=== PATIENT | female | born 1960 | race Caucasian/White ===

== ENCOUNTER 2023-10-30 09:39 | Emergency (ER) | payer MEDICARE, MEDICAID, SELFPAY ==
[2023-10-30] VITALS (7 sets, daily range): BP systolic 91–108; BP diastolic 59–70; PULSE 88–114; RESP 18–28; TEMP 36.6; O2SAT 92–96; BMI 27.4
--- NOTE | 2023-10-30 09:56 | XR_ITS ---
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 Chest radiograph 07/09/2020 CLINICAL INDICATION: 63 years Female cough FINDINGS: The cardiomediastinal silhouette and pulmonary vasculature are within normal limits. There is slight coarse increased interstitial markings of the infrahilar regions likely representing atelectasis. A small amount of developing interstitial inflammatory infiltrate is not excluded. The lungs are otherwise clear. There is no evidence of pleural effusion or pneumothorax. XR/XR chest 1V IMPRESSION: Today's exam shows findings most consistent with some infrahilar atelectasis. Less likely, this could represent a small amount of interstitial inflammatory infiltrate. Correlation with the patient's clinical history may be helpful. One could consider a follow-up PA and lateral view of the chest in 7-10 days to see if these basilar changes resolved. Electronically authenticated by: DENNY ROWLEY Date: 10/30/2023 10:39
--- NOTE | 2023-10-30 09:56 | ECG_ITS ---
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
--- NOTE | 2023-10-30 09:56 | ED_ITS ---
HPI - General Adult General Chief complaint: Shortness of Breath/Dyspnea Stated complaint: SHORTNESS OF BREATH/ COUGH Time Seen by Provider: 10/30/23 09:43 Source: patient Mode of arrival: walk-in History of Present Illness HPI narrative: 63-year-old female presents for cough and shortness of breath and pain from the coughing. Four days ago she had two cardiac stents placed. Three days ago her symptoms began. Her cough is mostly nonproductive and she hasn't had a fever or hemoptysis. She hasn't been around anybody who has been ill that she is aware of. Related Data Previous Rx's Medication Instructions Recorded azithromycin 250 mg tablet 250 mg PO DAILY 4 days #4 tabs 10/30/23 (Zithromax) benzonatate 100 mg capsule 100 mg PO TID PRN cough #20 caps 10/30/23 Allergies Allergy/AdvReac Type Severity Reaction Status Date / Time buspirone [From BuSpar] Allergy Severe Migraine Verified 10/30/23 09:49 ketorolac [From Toradol] Allergy Severe Verified 10/30/23 09:49 pregabalin [From Lyrica] Allergy Severe Verified 10/30/23 09:49 bacitracin AdvReac Severe Verified 10/30/23 09:49 Review of Systems ROS Narrative A ten point review of systems is negative except as noted above. Exam Narrative Exam Narrative: Nurses note and vital signs reviewed and patient is not hypoxic. General: The patient appears in no apparent distress. Patient is resting comfortably on cart and coughs occasionally. Skin: Warm, dry, no pallor noted. There is no rash noted. Head: Normocephalic, atraumatic Eye: Normal conjunctiva, no drainage Ears, Nose, Mouth, and Throat: oral mucosa is moist. Nares patent. Cardiovascular: Regular Rate and Rhythm Respiratory: Patient is in no distress, no accessory muscle use, lungs are clear to auscultation, no wheezing, rales or rhonchi Back: non-tender GI: soft and nontender Musculoskeletal: The patient has no evidence of calf tenderness, no pitting edema, symmetrical pulses noted bilaterally Neurological: A&O, normal speech Psychiatric: Cooperative Constitutional Vital Signs, click to edit/add: Last Vital Signs Temp 98 F 10/30/23 09:46 Pulse 103 H 12/17/23 10:40 Resp 26 H 10/30/23 10:40 BP 108/70 10/30/23 10:30 Pulse Ox 94 L 10/30/23 10:40 Course Vital Signs Vital signs: Vital Signs Temperature 98 F 10/30/23 09:46 Pulse Rate 88 10/30/23 09:46 Respiratory Rate 20 10/30/23 09:46 Blood Pressure 91/59 10/30/23 09:46 Pulse Oximetry 96 10/30/23 09:46 Temperature 98 F 10/30/23 09:46 Pulse Rate 103 H 10/30/23 10:40 Respiratory Rate 26 H 10/30/23 10:40 Blood Pressure 108/70 10/30/23 10:30 Pulse Oximetry 94 L 10/30/23 10:40 Medical Decision Making MDM Narrative Medical decision making narrative: patient workup here is essentially negative. No evidence of pneumonia, Covid, or influenza. She is discharged home on Zithromax and was started on that medication here. Treatment diagnosis and follow-up were discussed with the patient. Differential Diagnosis Differential Diagnosis: pneumonia, Covid, influenza, heart failure Lab Data Lab results reviewed: Yes I reviewed the patient's lab results Labs: Lab Results 10/30/23 Range/Units 10:06 WBC 4.8 (4.0-11.0) 10^3/uL RBC 4.21 (4.20-5.40) 10^6/uL Hgb 13.5 (12.0-16.0) g/dL Hct 39.5 (36.0-48.0) % MCV 93.8 (81.0-99.0) fL MCH 32.1 (26.7-34.0) pg MCHC 34.2 (29.9-35.2) g/dL RDW 13.1 (11.0-15.0) % Plt Count 258 (150-450) 10^3/uL MPV 9.5 (9.5-13.5) fL Neut % (Auto) 74.2 (43.0-75.0) % Lymph % (Auto) 16.3 L (20.5-60.0) % [place] % (Auto) 8.5 (1.7-12.0) % Eos % (Auto) 0.0 L (0.9-7.0) % Baso % (Auto) 0.6 (0.2-2.0) % Neut # (Auto) 3.6 (1.4-6.5) 10^3/uL Lymph # (Auto) 0.8 L (1.2-3.8) 10^3/uL [place] # (Auto) 0.4 (0.3-0.8) 10^3/uL Eos # (Auto) 0.0 (0.0-0.7) 10^3/uL Baso # (Auto) 0.0 (0.0-0.1) 10^3/uL Abs Immat Gran (auto) 0.02 (0.00-0.03) 10^3/uL Imm/Tot Granulo (auto) 0.4 (0.0-0.5) % Sodium 130 L (136-145) mmol/L Potassium 3.0 L (3.5-5.1) mmol/L Chloride 95 L (98-107) mmol/L Carbon Dioxide 22.9 (21.0-32.0) mmol/L Anion Gap 15.1 BUN 14.0 (7.0-18.0) mg/dL Creatinine 0.85 (0.55-1.02) mg/dL Est GFR ( Amer) >60 (>=60) Est GFR (Non-Af Amer) >60 (>=60) BUN/Creatinine Ratio 16.5 Glucose 114 H (74-106) mg/dL Calcium 8.6 (8.5-10.1) mg/dL SARS-CoV-2 (PCR) Negative (NEGATIVE) Influenza Type A Ag Negative Influenza Type B Ag Negative Imaging Data Chest x-ray: Radiologist's impression: Procedure: XR chest 1V PROCEDURE: XR chest 1V DATE: 10/30/2023 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 Chest radiograph 07/09/2020 CLINICAL INDICATION: 63 years Female cough FINDINGS: The cardiomediastinal silhouette and pulmonary vasculature are within normal limits. There is slight coarse increased interstitial markings of the infrahilar regions likely representing atelectasis. A small amount of developing interstitial inflammatory infiltrate is not excluded. The lungs are otherwise clear. There is no evidence of pleural effusion or pneumothorax. IMPRESSION: Today's exam shows findings most consistent with some infrahilar atelectasis. Less likely, this could represent a small amount of interstitial inflammatory infiltrate. Correlation with the patient's clinical history may be helpful. One could consider a follow-up PA and lateral view of the chest in 7-10 days to see if these basilar changes resolved. Electronically authenticated by: DENNY ROWLEY Date: 10/30/2023 10:39 Discharge Plan Discharge Chief Complaint: Shortness of Breath/Dyspnea Clinical Impression: Upper respiratory infection Patient Disposition: Home, Self-Care Time of Disposition Decision: 11:00 Condition: Good Prescriptions / Home Meds: New azithromycin [Zithromax] 250 mg tablet 250 mg PO DAILY 4 Days Qty: 4 0RF Rx Instructions: start on day 2 of therapy benzonatate 100 mg capsule 100 mg PO TID PRN (Reason: cough) Qty: 20 0RF Instructions: Upper Respiratory Infection (ED) Stand Alone Forms: Portal Instructions Referrals: DORIE LUIS [Primary Care Provider] - 1 week
[2023-10-30 10:24] LABS: Basophils Percent Auto 0.6 % (0.2-2.0); Hematocrit 39.5 % (36.0-48.0); Hemoglobin 13.5 g/dL (12.0-16.0); Immature Granulocytes Abs Auto 0.02 10^3/uL (0.00-0.03); Immature Granulocytes Pct Auto 0.4 % (0.0-0.5); Lymphocytes Absolute Auto 0.8 10^3/uL (1.2-3.8); Lymphocytes Percent Auto 16.3 % (20.5-60.0); Mean Corpuscular HGB Conc 34.2 g/dL (29.9-35.2); Mean Corpuscular Hemoglobin 32.1 pg (26.7-34.0); Mean Corpuscular Volume 93.8 fL (81.0-99.0); Mean Platelet Volume 9.5 fL (9.5-13.5); Monocytes Absolute Auto 0.4 10^3/uL (0.3-0.8); Monocytes Percent Auto 8.5 % (1.7-12.0); Neutrophils Absolute Auto 3.6 10^3/uL (1.4-6.5); Neutrophils Percent Auto 74.2 % (43.0-75.0); Platelet Count 258 10^3/uL (150-450); Red Blood Count 4.21 10^6/uL (4.20-5.40); Red Cell Distribution Width 13.1 % (11.0-15.0); White Blood Count 4.8 10^3/uL (4.0-11.0)
[2023-10-30 10:31] LABS: Anion Gap 15.1; BUN Creatinine Ratio 16.5; Calcium 8.6 mg/dL (8.5-10.1); Carbon Dioxide 22.9 mmol/L (21.0-32.0); Chloride 95 mmol/L (98-107); Estimated GFR (African America >60 (>=60); Estimated GFR (Non-African Ame >60 (>=60); Glucose 114 mg/dL (74-106); Sodium 130 mmol/L (136-145)
[2023-10-30 10:33] LABS: SARS-CoV-2 Ag NEGATIVE (NEGATIVE)
[2023-10-30 10:34] LABS: Influenza Virus A Antigen Negative; Influenza Virus B Antigen Negative; Internal Control Within Normal Limits
[2023-10-30] MEDS: AZITHROMYCIN 250 MG TABLET 500 MG PO (11:12)
[2023-10-30] MEDS: BENZONATATE 100 MG CAPSULE PO (11:12)
[2023-10-30 15:59] LABS: SARS-CoV-2 NAA NOT DETECTED (NOT DETECTE)
== END 2023-10-30 11:19 | disposition home or self-care (01) ==
PROVIDERS: Emergency Provider Emergency Medicine; PCP Family Medicine
DX: J06.9 Acute upper respiratory infection, unspecified (principal); Z20.822 Contact with and (suspected) exposure to COVID-19; Z95.5 Presence of coronary angioplasty implant and graft
CPT/HCPCS: 36415; 71045; 80048; 85025; 87635; 87804; 87811; 93005; 99285

== ENCOUNTER 2023-12-30 14:04 | Outpatient (OUT) | payer MEDICARE, MEDICAID, SELFPAY ==
--- NOTE | 2023-12-30 14:15 | CT_ITS ---
The [address] [address] Patient Name: ELLA JACOBO MRN: [id number] date: 1960 Sex: F Assigned Patient Location: CT Current Patient Location: Accession/Order Number: [id number] Exam Date: 12/30/2023 14:20 Report Date: 12/31/2023 06:34 At the request of: THERESA FUENTES Procedure: CT lung screening low-dose EXAM: CT lung screening low-dose HISTORY: Cigarette Dependence F17.219 ; technologist notes state current smoker. COMPARISON: A low-dose CT lung screen dated 12/07/[address] abdomen/pelvis dated 03/23/2022. TECHNIQUE: Routine low-dose CT lung screen without intravenous contrast. FINDINGS: Cardiovascular: Fat extending into the interatrial septum. Severe multivessel coronary calcifications with history of coronary artery stenting moderately severe atheromatous calcification thoracic and abdominal aorta, great vessels off the aortic arch, subclavian artery and bilateral main renal arteries. Lungs: Mild peribronchial thickening consistent with acute and/or chronic bronchitis. Mild to moderate atelectatic densities bilateral upper and lower lobes and right middle lobe. Nodules: Stable 0.4 cm noncalcified right upper lobe nodule (series 3 image 47). Adenopathy: There are no pathologically enlarged axillary, mediastinal or hilar lymph nodes. Other: The trachea, esophagus and thyroid gland are unremarkable. Upper abdomen: Atherosclerotic disease as described. Osseous: Slight scoliosis and kyphosis. Discogenic degenerative changes at numerous levels along the spine. Stable compression fracture L1 vertebral body with less than 15% loss of height. CT/CT lung screening low-dose IMPRESSION: Mild peribronchial thickening consistent with acute and/or chronic bronchitis. Stable 0.4 cm noncalcified right upper lobe nodule (series 3 image 47). There are no pathologically enlarged lymph nodes. Atherosclerotic disease as described. Stable compression fracture L1 vertebral body with less than 15% loss of height. Additional findings as described in the body the report. Lung rads score 2. A low-dose CT lung screen examination in 12 months is recommended. Electronically authenticated by: BRICE GARCIA Date: 12/31/2023 06:34
== END 2023-12-30 14:05 | disposition home or self-care (01) ==
LOC: CT 14:05
PROVIDERS: PCP Family Medicine; Visit Provider Internal Medicine
DX: F17.219 Nicotine dependence, cigarettes, with unspecified nicotine-induced disorders (principal); Z12.2 Encounter for screening for malignant neoplasm of respiratory organs
CPT/HCPCS: 71271

== ENCOUNTER 2024-03-26 12:30 | Emergency (ER) | payer MEDICARE, MEDICAID, SELFPAY ==
[2024-03-26] VITALS (10 sets, daily range): BP systolic 151–159; BP diastolic 89–94; PULSE 87–101; TEMP 36.4; O2SAT 91–97; BMI 27.1
--- NOTE | 2024-03-26 12:48 | ECG_ITS ---
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
--- NOTE | 2024-03-26 12:48 | XR_ITS ---
The [address] [address] Patient Name: ELLA JACOBO MRN: [id number] date: 1960 Sex: F Assigned Patient Location: ER Current Patient Location: ED.MAIN Accession/Order Number: [id number] Exam Date: 03/26/2024 12:55 Report Date: 03/26/2024 13:33 At the request of: TORRIE POND Procedure: XR chest 2V EXAM: CHEST 1 VIEW HISTORY: Cough, SOB TECHNIQUE: Chest, one view. COMPARISON: Chest CT 12/07/2022. FINDINGS: Lungs mildly hyperinflated. There are patchy discoid opacities in the left perihilar region, lingula, and both lower lobes, similar to previous chest CT. No lobar consolidation, pleural effusion, or pneumothorax. Pulmonary vasculature is within normal limits. There is aortic atherosclerosis. Heart size within normal limits. XR/XR chest 2V IMPRESSION: 1. Mild patchy discoid opacities in the left perihilar region, lingula, and both lower lobes, favoring atelectasis or scarring as similar findings by chest CT 12/07/2022. No lobar consolidation or effusion. Electronically authenticated by: ANGELA LACKEY Date: 03/26/2024 13:33
--- NOTE | 2024-03-26 12:54 | ED_ITS ---
HPI HPI - General Adult General Chief complaint: Chest Pain Stated complaint: SOB, SOAR THROAT Time Seen by Provider: 03/26/24 12:49 History of Present Illness HPI narrative: Patient is a 63-year-old female who is presenting to the ER today with chief complaint cough, congestion, sinus congestion for 1.5 weeks. Patient has not taken anything to help with her symptoms [id number]-sciictt. Patient does have a history of COPD. Patient does use albuterol inhalers, also other steroid inhalers as well. Patient has not done any type of sinus congestion, Flonase, or any other type of cough medication. Patient was having dry cough, now she is having a productive greenish cough. Patient does have upper chest wall pain, worse after coughing. No rash. Patient does had pain with a deep inspiration, twisting and turning and reproducible tenderness to upper chest wall pain. Patient does have a history of 3 cardiac stents. Patient has no recent traveling. No abdominal pain, nausea, vomiting, or any other acute complaints. Patient looks well. Patient is coming today because symptoms or not improving. All systems are negative except as noted/marked. All systems reviewed and otherwise negative. Nurses note and vital signs reviewed and patient is not hypoxic. General: The patient appears well and in no apparent distress. Patient is resting comfortably on cart. Patient is not toxic, lethargic, or listless Skin: Warm, dry, no pallor noted. There is no rash noted. No petechiae, purpura. Head: Normocephalic, atraumatic Eye: Normal conjunctiva, no drainage, EOMI. PERRL Ears, Nose, Mouth, and Throat: oral mucosa is moist. Bilateral TM shows no erythema, perforation or bulging. Nares patent. Mouth without vesicles. Cardiovascular: Regular Rate and Rhythm, no murmur, gallop, rub; patient has reproducible tenderness palpation to bilateral upper, lateral, posterior chest wall. No rash. Respiratory: Patient is in no distress, no accessory muscle use, lungs are clear to auscultation, no wheezing, rales or rhonchi. Equal breath sounds bilateral. Back: non-tender, no CVA tenderness bilaterally to percussion. No CT LS midline pain. GI: no tenderness to palpation, no masses appreciated. No rebound, guarding, or rigidity noted. No distention Musculoskeletal: Patient has full range of motion of all of the extremities, no motor, sensory, or focal neurological deficits Neurological: A&O x4, normal speech Psychiatric: Cooperative Related Data Home Medications ?Medication ?Instructions ?Recorded ?Confirmed albuterol sulfate 90 mcg/actuation 2 puff inhalation Q4H PRN 03/26/24 03/26/24 aerosol inhaler shortness of breath or wheezing alprazolam 1 mg tablet 1 mg PO QID 03/26/24 03/26/24 atorvastatin 80 mg tablet 80 mg PO DAILY 03/26/24 03/26/24 budesonide 160 mcg-glycopyr 9 2 inh inhalation BID 03/26/24 03/26/24 mcg-formot 4.8 mcg/actuation HFA inhaler (Breztri Aerosphere) carvedilol 3.125 mg tablet 3.125 mg PO BID 03/26/24 03/26/24 isosorbide mononitrate 30 mg 30 mg PO DAILY 03/26/24 03/26/24 tablet,extended release 24 hr lamotrigine 25 mg tablet 75 mg PO BEDTIME 03/26/24 03/26/24 nitroglycerin 0.4 mg sublingual 0.4 mg sublingual Q5M PRN chest 03/26/24 03/26/24 tablet pain olanzapine 5 mg tablet 5 mg PO BEDTIME 03/26/24 03/26/24 quetiapine 100 mg tablet 100 mg PO BEDTIME 03/26/24 03/26/24 ropinirole 1 mg tablet 1 mg PO DAILY 03/26/24 03/26/24 trazodone 100 mg tablet 300 mg PO BEDTIME PRN sleep 03/26/24 03/26/24 venlafaxine 150 mg 300 mg PO BEDTIME 03/26/24 03/26/24 capsule,extended release 24 hr Previous Rx's ?Medication ?Instructions ?Recorded amoxicillin 875 mg-potassium 1 tab PO Q12H 10 days #20 tabs 03/26/24 clavulanate 125 mg tablet benzonatate 100 mg capsule 200 mg (2 x 100 mg) PO TID PRN 03/26/24 cough #20 caps klwfbyxtsulegyx-fhyurtyshtdepnd-XE 10 ml PO Q6H PRN cold symptoms 03/26/24 2 mg-30 mg-10 mg/5 mL oral syrup #200 mL (Bromfed DM) Allergies Allergy/AdvReac Type Severity Reaction Status Date / Time buspirone [From BuSpar] Allergy Severe Migraine Verified 10/30/23 09:49 ketorolac [From Toradol] Allergy Severe Verified 10/30/23 09:49 pregabalin [From Lyrica] Allergy Severe Verified 10/30/23 09:49 bacitracin AdvReac Severe Verified 10/30/23 09:49 Opioid HPI Opioid Management Most Recent Opioid Data: Last Pain Scale 2 03/26/24 13:01 Exam Constitutional Vital Signs, click to edit/add: Last Vital Signs Temp 97.6 F 03/26/24 12:33 Pulse 98 H 03/26/24 12:33 Resp 24 H 03/26/24 12:33 BP 151/94 H 03/26/24 12:33 Pulse Ox 94 L 03/26/24 12:33 O2 Del Method Room Air 03/26/24 12:33 Course Vital Signs Vital signs: Vital Signs Temperature 97.6 F 03/26/24 12:33 Pulse Rate 98 H 03/26/24 12:33 Respiratory Rate 24 H 03/26/24 12:33 Blood Pressure 151/94 H 03/26/24 12:33 Pulse Oximetry 94 L 03/26/24 12:33 Oxygen Delivery Method Room Air 03/26/24 12:33 Temperature 97.6 F 03/26/24 12:33 Pulse Rate 98 H 03/26/24 12:33 Respiratory Rate 24 H 03/26/24 12:33 Blood Pressure 151/94 H 03/26/24 12:33 Pulse Oximetry 94 L 03/26/24 12:33 Oxygen Delivery Method Room Air 03/26/24 12:33 Medical Decision Making MDM Narrative Medical decision making narrative: Education was done at bedside in treating symptoms jzsa-efd-fgyzksf and at home. Patient chest x-ray shows no acute findings, EKG was negative. Education was done at length at bedside on treating symptoms at home. Patient is using no antihistamines, Flonase, cough medication. Secondary to COPD and symptoms going on for 1.5 weeks, patient has been placed on doxycycline, given cough medications. Patient will follow-up with PCP as well. Patient understands to take multiple medications mubw-fkj-sawgmzu to help treat her symptoms. No questions discharged ECG Data Attestation: I personally reviewed and interpreted this ECG as follows: (EKG interpretation. Normal sinus rhythm at 96 beats a minute. Normal axis deviation. No acute ST elevation, no acute ectopy. QTc of 406. Nonspecific ST changes.) Discharge Plan Discharge Stand Alone Forms: Portal Instructions Chief Complaint: Chest Pain Clinical Impression: Sinus congestion, Upper respiratory infection, Sinusitis, acute, Bronchitis Patient Disposition: Home, Self-Care Time of Disposition Decision: 13:30 Condition: Fair Prescriptions / Home Meds: New amoxicillin-pot clavulanate 875-125 mg tablet 1 tab PO Q12H 10 Days Qty: 20 0RF benzonatate 100 mg capsule 200 mg PO TID PRN (Reason: cough) Qty: 20 0RF pjiwgpbagudlmjq-shskqdvap-OT [Bromfed DM] 2-30-10 mg/5 mL syrup 10 ml PO Q6H PRN (Reason: cold symptoms) Qty: 200 0RF No Action albuterol sulfate 90 mcg/actuation HFA aerosol inhaler 2 puff INHALATION Q4H PRN (Reason: shortness of breath or wheezing) alprazolam 1 mg tablet 1 mg PO QID atorvastatin 80 mg tablet 80 mg PO DAILY Breztri Aerosphere 160-9-4.8 mcg/actuation HFA aerosol inhaler 2 inh INHALATION BID carvedilol 3.125 mg tablet 3.125 mg PO BID isosorbide mononitrate 30 mg tablet extended release 24 hr 30 mg PO DAILY nitroglycerin 0.4 mg tablet, sublingual 0.4 mg sublingual Q5M PRN (Reason: chest pain) olanzapine 5 mg tablet 5 mg PO BEDTIME quetiapine 100 mg tablet 100 mg PO BEDTIME ropinirole 1 mg tablet 1 mg PO DAILY trazodone 100 mg tablet 300 mg PO BEDTIME PRN (Reason: sleep) venlafaxine 150 mg capsule,extended release 24hr 300 mg PO BEDTIME lamotrigine 25 mg tablet 75 mg PO BEDTIME Print Language: Kiswahili Instructions: Sinusitis (ED), Upper Respiratory Infection (ED), Acute Bronchitis (ED), Cold Symptoms (ED), How to Use Nasal [place] (ED) Additional Instructions: Increase fluids at home, Gatorade, Powerade, or water. Alternate using DayQuil, NyQuil, and Flonase. Add Mucinex as well as needed. Alternate Tylenol and Motrin every 4 hours to help with fever control, body aches or joint pain. Use wmfj-nqx-nyylbcp vitamin C, vitamin D3, and zinc to help fight infection and help with her immune system. Take all medications daily as discussed for the next 7 to 10 days to help improve your symptoms for Referrals: DORIE LUIS [Primary Care Provider] - 1 week
== END 2024-03-26 13:47 | disposition home or self-care (01) ==
PROVIDERS: Emergency Provider Emergency Medicine; PCP Family Medicine
DX: J20.9 Acute bronchitis, unspecified (principal); J44.89 Other specified chronic obstructive pulmonary disease; J06.9 Acute upper respiratory infection, unspecified; R09.81 Nasal congestion; Z95.5 Presence of coronary angioplasty implant and graft; Z79.899 Other long term (current) drug therapy; J32.9 Chronic sinusitis, unspecified
CPT/HCPCS: 71046; 93005; 99284

== ENCOUNTER 2024-09-29 08:57 | Observation (INO) | payer MEDICARE, MEDICAID, SELFPAY ==
[2024-09-29] VITALS (28 sets, daily range): BP systolic 127–200; BP diastolic 80–110; PULSE 75–112; TEMP 36.7–37; O2SAT 81–98; BMI 27.5; BMI 28.9
--- OUTSIDE RECORDS SUMMARY | 2024-09-29 09:06 | XMS_ITS | CCD ---
Author Organization [facility] Care Team Providers Care Maintenance And Operations Supervisor Name Role Phone Dorie Luis Attending Unavailable Dorie Luis Attending Unavailable Dorie Luis Primary Care Physician MD Dorie Luis Primary Care Provider MD Elsy López Attending Provider DORIE LUIS Primary Care Unavailable CARTER, DR ELSY Mann Consulting Unavailable SAMSA ., THERESA Admitting Unavailable SAMSA ., THERESA Attending Unavailable SAMSA ., THERESA Consulting Unavailable DORIE LUIS Primary Care Unavailable BENEGEOVANNACT, DR CHIN Admitting Unavailable BENETEODORO, DR CHIN Attending Unavailable HAY ., DR CHASE Admitting Unavailable HAY ., DR CHASE Consulting Unavailable NADERER, DR MAEVE Abbott Primary Care Unavailable HAY ., DR CHASE Attending Unavailable PHILL WEEKS Consulting Unavailable NITIN, IRENA Attending Unavailable DORIE LUIS Primary Care Unavailable IRENA SANDHU Admitting Unavailable IRENA SANDHU Consulting Unavailable DORIE LUIS Primary Care Unavailable BENETEODORO, DR CHIN Admitting Unavailable RENE, DR CHIN Consulting Unavailable BENETEODORO, DR CHIN Attending Unavailable Brodie Chong Unavailable MD Jose Cruz Attending Provider [phone] Jose Cruz Unavailable Sindhu Ennis Unavailable MD Dorie Luis Primary Care Provider MD Harjeet Hernández Attending Provider [phone] Dorie Luis Primary Care Physician Dorie Luis MD Primary Care Provider [phone] POOMMIDEENAITBANDAR Attending Unavailable DORIE LUIS Primary Care Unavailable POOMKRZYSZTOFITBANDAR Referring Unavailable DORIE LUIS Primary Care Unavailable POOMMIPANIT, BANDAR Salvador Admitting Unavailable POOMKRZYSZTOFIT, BANDAR Salvador Attending Unavailable DORIE LUIS Primary Care Unavailable OJUKWU, Mbanefo Attending Unavailable OJUKWU, Mbanefo Admitting Unavailable [facility] Cardio, XXXX Consulting Unavailable Jose Cruz Admitting Unavailable Jose Cruz Attending Unavailable Dorie Luis Primary Care Unavailable Philip Hernández Admitting Unavailab le Philip Hernández Attending Unavailab le Dorie Luis Primary Care Unavailable Dorie Luis. Admitting Unavailable Tiffany Jansen Attending Unavaila ble NONE, XXXX Referring Unavailable Tiffany Jansen. Admitting Unavaila ble Tiffany Jansen. Referring Unavaila ble Tiffany Jansen. Attending Unavaila ble Tiffany Jansen. Attending Unavaila ble NONE, XXXX Referring Unavailable Tiffany Jansen. Attending Unavaila ble Dorie Luis Referring Unavailable Dorie Luis. Attending Unavailable Dorie Luis. Attending Unavailable Dorie Luis. Attending Unavailable Dorie Luis. Attending Unavailable Dorie Luis Admitting Unavailable Dorie Luis. Attending Unavailable Dorie Luis Attending Unavailable Dorie Luis Attending Unavailable Rosalinda KHAN Attending Unavailable Tiffany Jansen Consulting Unavaila ble Bruno CRUZ Admitting Unavailable Tiffany Jansen Consulting Unavaila ble Tiffany Jansen Consulting Unavaila ble Rosa Maria Frausto Attending Unavailable [facility] Cardio, XXXX Consulting Unavailable DO Alec LUTHER Admitting UnavailLawrence Napier Attending Unavailable Tiffany Jansen. Attending Unavaila ble NONE, XXXX Referring Unavailable Tiffany Jansen Attending Unavaila ble NONE, XXXX Referring Unavailable Tiffany Jansen. Attending Unavaila ble NONE, XXXX Referring Unavailable TIFFANY JANSEN Admitting Unavailab le TIFFANY JANSEN Attending Unavailab le DORIE LUIS Primary Care Unavailable TIFFANY JANSEN Referring UnavailDORIE Regalado Primary Care Unavailable Amilcar Matthews Attending Unavailable NONE, XXXX Referring Unavailable Amilcar Matthews Admitting Unavailable Amilcar Matthews Attending Unavailable NONE, XXXX Referring Unavailable OJUKWU, Mbanefo Admitting Unavailable OJUKWU, Mbanefo Attending Unavailable [facility] Cardio, XXXX Consulting Unavailable Ainsley Rose Attending Unavailable MD Dorie Luis Admitting Unavailable MD Dorie Luis Attending Unavailable MD Dorie Luis Attending Unavailable MD Dorie Luis Attending Unavailable MD Dorie Luis Attending Unavailable MD Dorie Luis Attending Unavailable Eligio Lopez Admitting Unavailable Eligio Lopez Attending Unavailable Tiffany Jansen Consulting Unavaila ble Tiffany Jansen Consulting Unavaila ble Tiffany Jansen Consulting Unavaila ble [facility] Cardio, XXXX Consulting Unavailable Tiffany Jansen Consulting Unavaila ble Eligio Lopez Admitting Unavailable Eligio Lopez Attending Unavailable Tiffany Jansen Consulting Unavaila ble Tiffany Jansen Consulting Unavaila ble [facility] Cardio, XXXX Consulting Unavailable Dorie Luis Admitting Unavailable Allergies Allergy Classification Reported Allergen(s) Allergy Type Date of Onset Reaction(s) Facility (20 sources) busPIRone; Translations: [BuSpar] Drug Allergy Migraine (disorder), Unknown (qualifier value) [facility] Repository (20 sources) Sulfonamides (Antibiotic); Translations: [sulfa drugs] Propensity to adverse reactions (disorder) Eruption of skin (disorder) [facility] Repository (20 sources) pregabalin; Translations: [pregabalin] Drug Allergy 09-06-20 23 Unknown, Other [facility] (20 sources) Sulfamethoxazole ; Translations: [sulfamethoxazol e] Drug Allergy 09-06-20 23 Unknown [facility] (18 sources) Tape 1 Drug allergy Sensitive (qualifier value) [facility] Comment on above: PAPER TAPE [place] (1 source) Adhesive agent Drug allergy (disorder) 01-28-20 20 [facility] Repository (1 source) pregabalin Drug Allergy 03-01-20 15 [facility] Repository (1 source) Sulfonamides (Antibiotic) Drug allergy (disorder) 08-28-20 14 [facility] Repository (5 sources) traMADol; Translations: [TRAMADOL] Drug Allergy 10-25-20 [facility] Repository (14 sources) busPIRone; Translations: [BUSPIRONE] Drug Allergy 09-06-20 Unknown, Headache [facility] (5 sources) Sulfacetamide / Sulfur Drug Allergy Unknown [facility] [employer] Other (9 sources) traMADol Drug Allergy 10-25-20 Unknown [facility] [employer] Other (20 sources) Nicotine; Translations: [nicotine] Drug Allergy 09-06-20 Eruption of skin (disorder), Unknown, Rash [facility] (8 sources) Sulfonamides (Antibiotic); Translations: [SULFA (SULFONAMIDE ANTIBIOTICS)] Drug Intolerance 10-25-20 Unknown [facility] Work Phone: (8 sources) Adhesive Tape-Silicones; Translations: [ADHESIVE TAPE-SILICONES] Drug Allergy 10-05-20 Other [facility] (7 sources) Adhesive Tape; Translations: [Tape] Propensity to adverse reactions (disorder) [facility] Repository (1 source) busPIRone Drug Allergy 05-13-20 [facility] Repository (1 source) pregabalin Drug Allergy 05-13-20 [facility] Repository (1 source) Sulfacetamide Drug Allergy 05-13-20 [facility] Repository (1 source) Sulfur Drug Allergy 05-13-20 [facility] Repository (1 source) traMADol Drug Allergy 05-13-20 [facility] Repository (1 source) Unable to Assess Drug allergy (disorder) 06-18-20 [facility] Repository Medications Current Medications Medication Drug Class(es) Dates Sig (Normalized) Sig (Original) acetaminophen 325 mg oral tablet (1 source) Start: 08-13-2024 take 2 tablets by mouth every six hours as needed for pain acetaminophen 325 mg Tab 650 mg = 2 tab(s), Oral, q6hr, PRN Pain, Refills(s) 0 Start Date: 08/13/24 Status: Ordered acetaminophen 325 mg / HYDROcodone bitartrate 5 mg oral tablet (6 sources) Opioid Agonist Start: 04-14-2023 take 1-2 tablets by mouth twice daily as needed HYDROcodone-Acetami nophen 5-325 MG 1-2 tablets as needed Orally twice daily for 7 days G89.29 Chronic pain Apr, Active Start: 01-30-2019 take 1 tablet by destiny th every six hours as needed for pain acetaminophen-hydrocodone 325 mg-5 mg or al tablet 1 tab(s), Oral, q6hr as needed for pain, Refill(s) 0 Start Date: 01/30/19 Status: Ordered [id number] 200 actuat albuterol 0.09 mg/actuat metered dose inhaler (5 sources) beta2-Adrenergic Agonist take 2 puff(s) by inhalation every four hours for wheezing albuterol 90 mcg/actuation inhaler Inhale 2 puffs every 4 hours if needed for wheezing. 0 Active Albuterol (Eqv-ProAir HFA) 90 mcg/inh inhalation aerosol (18 sources) Start: take 2 puff(s) by inhalation every four hours as needed Albuterol (Eqv-ProAir HFA) 90 mcg/inh inhalation aerosol 2 puff(s), Inhalation, q4hr Shortness of breath or wheezing, Refill(s) 0, as needed Start Date: 09/13/22 Status: Ordered Start: 09-13-2022 take 2 puff(s) by in halation every four hours as needed Albuterol (Eqv-ProAir HFA) 90 mcg/inh inhalation aerosol 2 puff(s), Inhalation, q4hr, Refill(s) 0, as needed Start Date: 09/13/22 Status: Ordered Albuterol Sulfate (2.5 MG/ 3 ML) 2.5 MG/3ML 0.083% Nebulization Solution (5 sources) Albuterol Sulfat e (2.5 MG/ 3 ML) 2.5 MG/3ML 0.083% Nebulization Solution 3ml Inhalation 4 times a day Active ALPRAZolam 1 mg oral tablet (20 sources) Benzodiazepine Start: 09-13-2022 take 1 tablet by mouth four times daily as needed for anxiety alprazolam 1 mg Tab 1 mg = 1 tab(s), Oral, QID, PRN for anxiety, Refills(s) 0 Start Date: 09/13/22 Status: Ordered Start: 01-30-2019 take 1 mg by mouth t hree times daily as needed for anxiety alprazolam 1 mg, Oral, TID, PRN as needed for anxiety, Refills(s) 0 Start Date: 01/30/19 Status: Ordered take 1 tablet by destiny th every twelve hours amLODIPine 5 mg oral tablet (20 sources) Dihydropyridine Calcium Channel Tamika Start: 09-13-2022 take 1 tablet by mouth once daily amLODIPine 5 mg Tab 5 mg = 1 tab(s), Oral, Daily, # 90 tab(s), Refills(s) 1, Pharmacy: [facility], 155.8, cm, 05/12/23 16:06:00 EDT, Height/Length Dosing, 79.5, kg, 05/12/23 16:06:00 EDT, Weight Dosing Start Date: 05/12/23 Status: Ordered amoxicillin 500 mg oral capsule (2 sources) Penicillin-class Antibacterial Start: 05-29-2024 take 1 capsule by mouth every twelve hours amoxicillin 500 mg Cap 500 mg = 1 cap(s), Oral, q12hr, # 20 cap(s), Refills(s) 0, Pharmacy: [facility], 154, cm, 05/29/24 15:16:00 EDT, Height/Length Dosing, 74.9, kg, 05/29/24 15:16:00 EDT, Weight Dosing Start Date: 05/29/24 Status: Ordered atorvastatin 80 mg oral tablet (19 sources) HMG-CoA Reductase Inhibitor Start: 03-21-2024 take 1 tablet by mouth once daily atorvastatin 80 mg Tab 80 mg = 1 tab(s), Oral, Daily, # 30 tab(s), Refills(s) 5, Pharmacy: [facility], 154, cm, 01/06/24 13:29:00 EST, Height/Length Dosing, 70.3, kg, 01/06/24 13:29:00 EST, Weight Dosing Start Date: 03/21/24 Status: Ordered Start: 09-30-2023 take 1 tablet by destiny th once daily atorvastatin 80 mg Tab 80 mg = 1 tab(s), Oral, Daily, # 90 tab(s), Refills(s) 1, Pharmacy: [facility], 154, cm, 09/29/23 9:30:00 EST, Height/Length Dosing, 73.1, kg, 09/29/23 9:30:00 EST, Weight Dosing Start Date: 09/30/23 Status: Ordered Start: 07-10-2023 take 2 tablets by mo [facility] at bedtime atorvastatin 40 mg Tab 80 mg = 2 tab(s), Oral, Bedtime, # 30 tab(s), Refills(s) 0, Pharmacy: [facility], 154.9, cm, 07/09/23 19:44:00 EDT, Height/Length Dosing, 73, kg, 07/09/23 19:44:00 EDT, Weight Dosing Start Date: 07/10/23 Status: Ordered baclofen 10 mg oral tablet (1 source) gamma-Aminobutyric Acid-ergic Agonist Start: 01-30-2019 take 10 mg by mouth three times daily baclofen 10 mg, Oral, TID, Refills(s) 0, Spasm Start Date: 01/30/19 Status: Ordered Breztri Aerosphere (5 sources) Start: 05-15-2024 take 2 puff(s) by inhalation twice daily Breztri Aerosphere 2 puff(s), Inhalation, BID, Refill(s) 0 Start Date: 05/15/24 Status: Ordered Calcium (3 sources) Phosphate Binder, Calcium Start: 01-30-2019 take 1 tablet by mouth once daily calcium 500 mg tablet 500 mg = 1 tab(s), Oral, Daily, Refills(s) 0, Prophylaxis Start Date: 01/30/19 Status: Ordered calcium carbonate 500 mg chewable tablet (6 sources) Start: 01-30-2019 take 1 tablet by mouth once daily calcium 500 mg tablet 500 mg = 1 tab(s), Oral, Daily, Refills(s) 0, Prophylaxis Start Date: 01/30/19 Status: Ordered take 1 tablet by mouth every twe lve hours carvedilol 6.25 mg oral tablet (19 sources) alpha-Adrenergic Tamika, beta-Adrenergic Tamika Start: 05-16-2024 take 1 tablet by mouth twice daily carvedilol 6.25 mg Tab 6.25 mg = 1 tab(s), Oral, BID, # 60 tab(s), Refills(s) 3, Pharmacy: [facility], 154, cm, 05/15/24 13:22:00 EDT, Height/Length Dosing, 72.2, kg, 05/15/24 13:22:00 EDT, Weight Dosing Start Date: 05/16/24 Status: Ordered Start: 12-23-2023 take 1 tablet by destiny th twice daily Coreg 3.125 mg Tab 3.125 mg = 1 tab(s), Oral, BID, # 60 tab(s), Refills(s) 3, Pharmacy: [facility], 154, cm, 12/01/23 13:52:00 EST, Height/Length Dosing, 68.6, kg, 12/01/23 14:05:00 EST, Weight Dosing Start Date: 12/23/23 Status: Ordered Start: 07-10-2023 take 1 tablet by destiny twice daily Coreg 3.125 mg Tab 3.125 mg = 1 tab(s), Oral, BID, # 60 tab(s), Refills(s) 3, Pharmacy: [facility], 154, cm, 09/29/23 9:30:00 EST, Height/Length Dosing, 73.1, kg, 09/29/23 9:30:00 EST, Weight Dosing Start Date: 09/30/23 Status: Ordered take 1 tablet by destiny twice daily at mealtime carvedilol (Coreg) 3.125 mg tablet Take 1 tablet (3.125 mg) by mouth 2 times a day with meals. 0 Active Questran (1 source) Bile Acid Sequestrant Start: 01-30-2019 Questran 4 gram, Oral, Daily, Refills(s) 0, High cholesterol Start Date: 01/30/19 Status: Ordered cloNIDine hydrochloride 0.1 mg oral tablet (1 source) Central alpha-2 Adrenergic Agonist Start: 09-13-2022 take 1 tablet by mouth twice daily cloNIDine 0.1 mg tab 0.1 mg = 1 tab(s), Oral, BID, # 1 tab(s), Refills(s) 0, other reason (Rx) Start Date: 09/13/22 Status: Ordered Dosokap oral tablet (2 sources) Start: 10-31-2023 take 1 tablet by mouth once daily Dosokap oral tablet 1 tab(s), Oral, Daily, 90 tab(s), Refill(s) 0, [facility], 154, cm, 10/13/23 14:02:00 EST, Height/Length Dosing, 72.3, kg, 10/13/23 14:02:00 EST, Weight Dosing Start Date: 10/31/23 Status: Ordered 30 actuat fluticasone furoate 0.1 mg/actuat / umeclidinium 0.0625 mg/actuat / vilanterol 0.025 mg/actuat dry powder inhaler (10 sources) Anticholinergic, Corticosteroid, beta2-Adrenergic Agonist take 1 puff(s) by inhalation once daily fluticasone-umecl idin-vilanter (Trelegy Ellipta) 100-62.5-25 mcg blister with device Inhale 1 puff once daily. 0 Active take 1 puff(s) by inhalation onc e daily Trelegy Ellipta 100-62.5-25 MCG/ACT 1 puff Inhalation Once a day Active gabapentin 800 mg oral tablet (6 sources) Anti-epileptic Agent Start: 01-30-2019 take 800 mg by mouth three times daily gabapentin 800 mg, Oral, TID, Refills(s) 0, Neuropathy Start Date: 01/30/19 Status: Ordered take 1 capsule by [facility] every twenty-four hours Neurontin 100 MG 1 capsule Orally Once a day Active Handicap Placard, 5 years. (14 sources) Start: 02-10-[address], 5 years. Handicap Placard, 5 years., See Instructions, 1 EA, 0, Handicap Placard, 5 years., Supply Start Date: 02/10/23 Status: Ordered 24 hr isosorbide mononitrate 30 mg extended release oral tablet (18 sources) Nitrate Vasodilator Start: 05-16-2024 take 1 tablet by mouth twice daily isosorbide mononitrate 30 mg ER Tab 30 mg = 1 tab(s), Oral, BID, # 60 tab(s), Refills(s) 6, Pharmacy: [facility], 154, cm, 05/15/24 13:22:00 EDT, Height/Length Dosing, 72.2, kg, 05/15/24 13:22:00 EDT, Weight Dosing Start Date: 05/16/24 Status: Ordered Start: 07-21-2023 End: 07-20-2024 take 1 tablet by mouth once daily isosorbide mononitrate 30 mg ER Tab 30 mg = 1 tab(s), Oral, Daily, X 30 day(s), # 30 tab(s), Refills(s) 6, Pharmacy: [facility], 154, cm, 12/01/23 13:52:00 EST, Height/Length Dosing, 68.6, kg, 12/01/23 14:05:00 EST, Weight Dosing Start Date: 12/23/23 Stop Date: 07/20/24 Status: Ordered lamoTRIgine 25 mg oral tablet (20 sources) Mood Stabilizer, Anti-epileptic Agent Start: 10-14-2022 take 3 tablets by mouth once daily at bedtime Lamictal 25 mg Tab 75 mg = 3 tab(s), Oral, Once a day (at bedtime), Refills(s) 0 Start Date: 10/14/22 Status: Ordered LaMICtal 25 MG 1 tablet Orally Active loperamide hydrochloride 2 mg oral tablet (4 sources) Opioid Agonist Start: 01-30-2019 take 2 mg by mouth every four hours as needed Imodium A-D 2 mg, Oral, q4hr, PRN Loose stool, Refills(s) 0 Start Date: 01/30/19 Status: Ordered losartan potassium 100 mg oral tablet (20 sources) Angiotensin 2 Receptor Tamika Start: 05-30-2024 take 1 tablet by mouth once daily losartan 100 mg Tab 100 mg = 1 tab(s), Oral, Daily, # 30 tab(s), Refills(s) 2, Pharmacy: [facility], 154, cm, 05/30/24 10:31:00 EDT, Height/Length Dosing, 72.6, kg, 05/30/24 10:33:00 EDT, Weight Dosing Start Date: 05/30/24 Status: Ordered Start: 10-13-2023 take 1 tablet by destiny th once daily losartan 50 mg Tab 50 mg = 1 tab(s), Oral, Daily, # 90 tab(s), Refills(s) 3, Pharmacy: [facility], 154, cm, 10/13/23 14:02:00 EST, Height/Length Dosing, 72.3, kg, 10/13/23 14:02:00 EST, Weight Dosing Start Date: 10/13/23 Status: Ordered Start: 09-13-2022 take 1 tablet by destiny once daily losartan 100 mg Tab 100 mg = 1 tab(s), Oral, Daily, # 90 tab(s), Refills(s) 1, Pharmacy: [facility], 155.8, cm, 05/12/23 16:06:00 EDT, Height/Length Dosing, 79.5, kg, 05/12/23 16:06:00 EDT, Weight Dosing Start Date: 05/12/23 Status: Ordered take 2 tablets by mo [facility] once daily losartan (Cozaar) 50 mg tablet Take 2 tablets (100 mg) by mouth once daily. 0 Active melatonin 3 mg oral tablet (1 source) Start: 01-30-2019 take 3 mg by mouth once daily at bedtime melatonin 3 mg, Oral, Once a day (at bedtime), Refills(s) 0, Sleep Start Date: 01/30/19 Status: Ordered 24 hr metoprolol succinate 25 mg extended release oral tablet (1 source) beta-Adrenergic Tamika Start: 01-30-2019 take 1 tablet by mouth once daily Metoprolol succinate 25 mg ER Tablet 25 mg, Oral, Daily, Refills(s) 0, High blood pressure Start Date: 01/30/19 Status: Ordered Multivitamin, Therapeutic w/ Minerals (4 sources) Start: 01-30-2019 take 1 tablet by mouth once daily Multivitamin, Therapeutic w/ Minerals 1 tab(s), Oral, Daily, Refill(s) 0, Prophylaxis Start Date: 01/30/19 Status: Ordered nitroglycerin 0.4 mg sublingual tablet (19 sources) Nitrate Vasodilator Start: 05-16-2024 nitroglycerin 0.4 mg sublingual Tab 0.4 mg = 1 tab(s), SubLingual, q5min, PRN Chest pain, # 30 tab(s), Refills(s) 6, Pharmacy: [facility], 154, cm, 05/15/24 13:22:00 EDT, Height/Length Dosing, 72.2, kg, 05/15/24 13:22:00 EDT, Weight Dosing Start Date: 05/16/24 Status: Ordered Start: 07-10-2023 nitroglycerin 0.4 mg sublingual Tab 0.4 mg = 1 tab(s), SubLingual, q5min, PRN Chest pain, # 30 tab(s), Refills(s) 0, Pharmacy: [facility], 154.9, cm, 07/09/23 19:44:00 EDT, Height/Length Dosing, 73, kg, 07/09/23 19:44:00 EDT, Weight Dosing Start Date: 07/10/23 Status: Ordered prasugrel 10 mg oral tablet (4 sources) [id number] Platelet Inhibitor Start: 08-08-2024 take 1 tablet by mouth once daily prasugrel 10 mg Tab 10 mg = 1 tab(s), Oral, Daily, # 30 tab(s), Refills(s) 5, Pharmacy: [facility], 154, cm, 07/04/24 13:11:00 EDT, Height/Length Dosing, 75.4, kg, 07/04/24 13:11:00 EDT, Weight Dosing Start Date: 08/08/24 Status: Ordered Start: 07-04-2024 take 1 tablet by destiny th once daily prasugrel 10 mg Tab 10 mg = 1 tab(s), Oral, Daily, # 30 tab(s), Refills(s) 3, Pharmacy: [facility], 154, cm, 07/04/24 13:11:00 EDT, Height/Length Dosing, 75.4, kg, 07/04/24 13:11:00 EDT, Weight Dosing Start Date: 07/04/24 Status: Ordered Start: 12-01-2023 take 1 tablet by destiny th once daily prasugrel 10 mg Tab 10 mg = 1 tab(s), Oral, Daily, # 30 tab(s), Refills(s) 3, Pharmacy: [facility], 154, cm, 12/01/23 13:52:00 EST, Height/Length Dosing, 68.6, kg, 12/01/23 14:05:00 EST, Weight Dosing Start Date: 12/01/23 Status: Ordered pregabalin 75 mg oral capsule (5 sources) Start: 02-04-2021 take 1 capsule by mouth every eight hours QUEtiapine 100 mg oral tablet (20 sources) Atypical Antipsychotic Start: 08-13-2024 take 1 tablet by mouth at bedtime quetiapine 100 mg Tab 100 mg = 1 tab(s), Oral, Bedtime, # 270 tab(s), Refills(s) 0 Start Date: 08/13/24 Status: Ordered Start: 09-13-2022 take 2 tablets by mo uth once daily at bedtime SEROquel 100 mg Tab 200 mg = 2 tab(s), Oral, Once a day (at bedtime), Refills(s) 0 Start Date: 09/13/22 Status: Ordered Start: 01-30-2019 take 100 mg by mouth once daily at bedtime quetiapine 100 mg, Oral, Once a day (at bedtime), Refills(s) 0, Anxiety Start Date: 01/30/19 Status: Ordered Start: 01-30-2019 take 400 mg by mouth once daily in the evening quetiapine 400 mg, Oral, qPM, Refills(s) 0, Anxiety Start Date: 01/30/19 Status: Ordered take 2 tablets by mo uth once daily at bedtime QUEtiapine (SEROquel) 200 mg tablet Take 2 tablets (400 mg) by mouth once daily at bedtime. 0 Active take 2 tablets by mo uth once daily at bedtime QUEtiapine (SEROquel) 400 mg tablet Take 2 tablets (800 mg) by mouth once daily at bedtime. 0 Active take 1 tablet by destiny th every twenty-four hours SEROquel 200 MG 1 tablet at bedtime Orally Once a day Active 12 hr ranolazine 500 mg extended release oral tablet (15 sources) Anti-anginal Start: 05-30-2024 take 1 tablet by mouth twice daily Ranexa 500 mg Tab-ER 500 mg = 1 tab(s), Oral, BID, # 60 tab(s), Refills(s) 5, Pharmacy: [facility]/pharmacy #[id number], 154, cm, 05/30/24 10:31:00 EDT, Height/Length Dosing, 72.6, kg, 05/30/24 10:33:00 EDT, Weight Dosing Start Date: 05/30/24 Status: Ordered Start: 02-17-2024 take 1 tablet by destiny th twice daily Ranexa 500 mg Tab-ER 500 mg = 1 tab(s), Oral, BID, # 60 tab(s), Refills(s) 5, Pharmacy: [facility], 154, cm, 01/06/24 13:29:00 EST, Height/Length Dosing, 70.3, kg, 01/06/24 13:29:00 EST, Weight Dosing Start Date: 02/17/24 Status: Ordered Start: 09-02-2023 take 1 tablet by [facility] twice daily Ranexa 500 mg Tab-ER 500 mg = 1 tab(s), Oral, BID, # 60 tab(s), Refills(s) 3, Pharmacy: [facility], 154, cm, 10/13/23 14:02:00 EST, Height/Length Dosing, 72.3, kg, 10/13/23 14:02:00 EST, Weight Dosing Start Date: 10/13/23 Status: Ordered rOPINIRole 1 mg oral tablet (20 sources) Nonergot Dopamine Agonist Start: 03-14-2024 take 1 tablet by mouth once daily ropinirole 1 mg Tab 1 mg = 1 tab(s), Oral, Daily, # 90 tab(s), Refills(s) 1, Pharmacy: [facility], 154, cm, 01/06/24 13:29:00 EST, Height/Length Dosing, 70.3, kg, 01/06/24 13:29:00 EST, Weight Dosing Start Date: 03/14/24 Status: Ordered Start: 09-13-2022 take 1 tablet by [facility] once daily ropinirole 1 mg Tab 1 mg = 1 tab(s), Oral, Daily, # 90 tab(s), Refills(s) 1, Pharmacy: [facility], 155.8, cm, 05/12/23 16:06:00 EDT, Height/Length Dosing, 79.5, kg, 05/12/23 16:06:00 EDT, Weight Dosing Start Date: 05/12/23 Status: Ordered Start: 01-30-2019 take 1 mg by mouth t hree times daily ropinirole 1 mg, Oral, TID, Refills(s) 0, Other (see comment) Start Date: 01/30/19 Status: Ordered salmon calcitonin 200 unt/actuat nasal spray (5 sources) Calcitonin 1000 ml sodium chloride 9 mg/ml injection (3 sources) Start: 09-07-2023 End: 09-07-2023 sodium chloride 0.9% infusion Start: 01-30-2019 sodium chlorid e 1 g Tab Oral, Daily, Refills(s) 0, Prophylaxis Start Date: 01/30/19 Status: Ordered ticagrelor 90 mg oral tablet (12 sources) Start: 07-10-2023 take 1 tablet by mouth twice daily ticagrelor 90 mg oral tablet 90 mg = 1 tab(s), Oral, BID, MAINTENACE DOSE, # 180 tab(s), Refills(s) 1, Pharmacy: [facility], 154, cm, 07/21/23 14:15:00 EDT, Height/Length Dosing, 75.2, kg, 07/21/23 14:27:00 EDT, Weight Dosing Start Date: 08/08/23 Status: Ordered traZODone hydrochloride 100 mg oral tablet (20 sources) Serotonin Reuptake Inhibitor Start: 09-13-2022 take 3 tablets by mouth once daily at bedtime traZODONE 100 mg Tab 300 mg = 3 tab(s), Oral, Once a day (at bedtime), Refills(s) 0 Start Date: 09/13/22 Status: Ordered Start: 01-30-2019 take 100 mg by mouth once daily at bedtime trazodone 100 mg, Oral, Once a day (at bedtime), Refills(s) 0, Sleep Start Date: 01/30/19 Status: Ordered Trelegy Ellipta 100 mcg-62.5 mcg-25 mcg inhalation powder (14 sources) Start: 09-13-2022 take 1 puff(s) by inhalation once daily Trelegy Ellipta 100 mcg-62.5 mcg-25 mcg inhalation powder = 1 puff(s), Inhalation, Daily, Refills(s) 0 Start Date: 09/13/22 Status: Ordered 24 hr venlafaxine 150 mg extended release oral capsule (20 sources) Serotonin and Norepinephrine Reuptake Inhibitor Start: 09-13-2022 take 2 capsules by mouth once daily at bedtime Effexor XR 150 mg Cap-ER 300 mg = 2 cap(s), Oral, Once a day (at bedtime), Refills(s) 0 Start Date: 09/13/22 Status: Ordered Start: 01-30-2019 take 150 mg by mouth once alphonse y venlafaxine 150 mg, Oral, Daily, Refills(s) 0, Depression Start Date: 01/30/19 Status: Ordered take 2 capsules by m outh once daily at bedtime venlafaxine XR (Effexor-XR) 150 mg 24 hr capsule Take 2 capsules (300 mg) by mouth once daily. Do not crush or chew. Takes 2 capsules at bedtime. 0 Active take 1 capsule by mo uth every twenty-four hours Venlafaxine HCl ER 150 MG 1 capsule with food Orally Once a day Active Vitamin B 12 500 MCG (5 sources) take 1 tablet by mouth once alphonse y Completed/Discontinued Medications Medication Drug Class(es) Dates Sig (Normalized) Sig (Original) aspirin 81 mg chewable tablet (20 sources) Platelet Aggregation Inhibitor, Nonsteroidal Anti-inflammatory Drug Start: 09-07-2023 End: 09-07-2023 aspirin chewable tablet 243 mg Start: 07-10-2023 take 1 tablet by destiny th once daily aspirin 81 mg Oral EC Tab 81 mg = 1 tab(s), Oral, Daily, Refills(s) 0 Start Date: 07/10/23 Status: Ordered fluticasone / vilanterol (5 sources) Corticosteroid, beta2-Adrenergic Agonist take 1 puff(s) by inhalation once daily BREO ELLIPTA 100 mcg/25 mcg 1 puff Inhalation daily Not-Taking OLANZapine 5 mg oral tablet (20 sources) Atypical Antipsychotic Start: 10-14-20 take 1 tablet by mouth once daily at bedtime ZyPREXA 5 mg Tab 5 mg = 1 tab(s), Oral, Once a day (at bedtime), one tablet at bedtime, Refills(s) 0 Start Date: 10/14/22 Status: Ordered take 0.5 tablet by m outh once daily at bedtime OLANZapine (ZyPREXA) 10 mg tablet Take 0 .5 tablets (5 mg) by mouth once daily at bedtime. 0 Active take 1 tablet by destiny th every twenty-four hours ZyPREXA 10 MG 1 tablet Orally Once a day Active potassium chloride 20 meq extended release oral tablet (1 source) Start: 01-30-2019 take 1 tablet by mouth twice daily potassium chloride 20 mEq ER Tab 20 mEq = 1 tab(s), Oral, BID, Refills(s) 0, Prophylaxis Start Date: 01/30/19 Status: Ordered Problems Active Problems Problem Classification Problem Date Documented Da te Episodic/Chronic Acute myocardial infarction (20 sources) ST elevation (STEMI) myocardial infarction of unspecified site; Translations: [Acute ST segment elevation myocardial infarction] Onset: 07-09-2023 Chronic Anxiety disorders (20 sources) Mixed anxiety and depressive disorder; Translations: [Anxiety disorder] Onset: 09-13-2022 09-15-2022 Chronic Chronic obstructive pulmonary disease and bronchiectasis (20 sources) Chronic obstructive lung disease; Translations: [Chronic obstructive pulmonary disease, unspecified] Onset: 05-21-2022 09-15-2022 Chronic Conditions associated with dizziness or vertigo (1 source) Dizziness and giddiness; Translations: [Dizziness and giddiness] Onset: 05-15-2024 Episodic Congestive heart failure; nonhypertensive (1 source) Acute systolic heart failure; Translations: [Acute systolic (congestive) heart failure] Onset: 07-09-2023 Chronic Coronary atherosclerosis and other heart disease (20 sources) Coronary atherosclerosis; Translations: [Atherosclerotic heart disease of [place] coronary artery without angina pectoris] Onset: 09-01-2023 Chronic Essential hypertension (20 sources) Benign hypertension; Translations: [Essential (primary) hypertension] Onset: 05-21-2022 09-15-2022 Chronic Fluid and electrolyte disorders (2 sources) Hypokalemia; Translations: [Hypokalemia] Onset: 07-09-2023 Episodic Malaise and fatigue (10 sources) Weakness; Translations: [Fatigue] Onset: 03-23-2023 09-29-2023 Episodic Miscellaneous mental health disorders (20 sources) Primary insomnia; Translations: [Primary insomnia] Onset: 09-13-2022 09-15-2022 Chronic Mood disorders (16 sources) Major depressive disorder, single episode, unspecified; Translations: [Depressive disorder] Onset: 05-21-2022 Chronic Comment on above: Added per Dr. Fidencio gonzales response, per outpatient [facility] policy. Nausea and vomiting (1 source) Nausea; Translations: [Nausea] Onset: 08-08-2023 Episodic Nonspecific chest pain (5 sources) Chest pain; Translations: [Chest pain, unspecified] Onset: 09-01-2023 Episodic Osteoporosis (6 sources) Senile osteoporosis; Translations: [Age-related osteoporosis without current pathological fracture] Chronic Other acquired deformities (3 sources) Scoliosis of lumbar spine; Translations: [Scoliosis, unspecified] Chronic Other aftercare (4 sources) Post-discharge follow-up 07-13-2023 Episodic Other aftercare (2 sources) Long-term current use of drug therapy; Translations: [Other buttermaker (current) drug therapy] Onset: 09-01-2023 Episodic Other and unspecified benign neoplasm (1 source) Benign neoplasm of meninges, unspecified; Translations: [BENIGN NEOPLASM OF MENINGES UNS] Onset: 09-12-2022 Chronic Other circulatory disease (9 sources) History of acute ST segment elevation myocardial infarction 09-27-2023 Episodic Comment on above: added per 09/12/2023 query response. Other connective tissue disease (1 source) Repeated falls; Translations: [REPEATED FALLS] Onset: 03-11-2023 Episodic Other connective tissue disease (1 source) Abnormal posture; Translations: [ABNORMAL POSTURE] Onset: 03-23-2023 Episodic Other gastrointestinal disorders (1 source) Irritable bowel syndrome; Translations: [Irritable bowel syndrome without diarrhea] Onset: 07-09-2023 Chronic Other hereditary and degenerative nervous system conditions (20 sources) Restless legs; Translations: [Restless legs syndrome] Onset: 09-13-2022 09-15-2022 Chronic Other lower respiratory disease (1 source) Dyspnea; Translations: [Dyspnea, unspecified] Onset: 08-08-2023 Episodic Other nervous system disorders (4 sources) Polyneuropathy, unspecified; Translations: [POLYNEUROPATHY UNSPECIFIED] Onset: 02-14-2023 Chronic Other nervous system disorders (11 sources) Chronic pain; Translations: [Other chronic pain] Onset: 07-09-2023 Chronic Other nervous system disorders (2 sources) Other chronic pain Chronic Other nervous system disorders (19 sources) Polyneuropathy; Translations: [Polyneuropathy, unspecified] Onset: 02-10-2023 02-10-2023 Chronic Other nervous system disorders (2 sources) Anesthesia of skin; Translations: [ANESTHESIA OF SKIN] Onset: 03-11-2023 Episodic Other nervous system disorders (1 source) Unspecified abnormalities of gait and mobility; Translations: [UNS ABNORMALITIES GAIT AND MOBILITY] Onset: 03-23-2023 Episodic Other nervous system disorders (1 source) Other abnormalities of gait and mobility; Translations: [OTHER ABNORMALITIES GAIT AND MOBILITY] Onset: 03-23-2023 Episodic Other nutritional; endocrine; and metabolic disorders (2 sources) Obese class I; Translations: [Body mass index (BMI) 33.0-33.9, adult] Onset: 10-14-2022 Chronic Other nutritional; endocrine; and metabolic disorders (2 sources) Obesity; Translations: [Obesity, unspecified] Onset: 07-09-2023 Chronic Other upper respiratory infections (4 sources) Sinusitis 05-29-2024 Chronic Peripheral and visceral atherosclerosis (9 sources) Atherosclerosis of aorta 09-13-2023 Chronic Comment on above: Added per Dr. Fidencio gonzales response, per outpatient [facility] policy. Residual codes; unclassified (4 sources) Dependence on other enabling machines and devices; Translations: [Dependence on other enabling machines] Onset: 10-05-2023 10-05-2023 Chronic Residual codes; unclassified (1 source) Tobacco user; Translations: [Tobacco use] Onset: 07-09-2023 Episodic Spondylosis; intervertebral disc disorders; other back problems (20 sources) Cervical disc disorder; Translations: [Other cervical disc degeneration, unspecified cervical region] Chronic Spondylosis; intervertebral disc disorders; other back problems (6 sources) Dorsalgia, unspecified; Translations: [Spinal stenosis, cervical region] Onset: 03-11-2023 Episodic Substance-related disorders (20 sources) Smoker; Translations: [Nicotine dependence] Onset: 05-21-2022 09-15-2022 Chronic Unclassified (14 sources) Does mobilize using walker 02-10-2023 Unclassified (2 sources) history of SD Onset: 10-11-2023 Unclassified (1 source) Atherosclerotic heart disease of [place] coronary artery with refractory angina pectoris (CMS-HCC); Translations: [Atherosclerotic heart disease of [place] coronary artery with refractory angina pectoris (CMS-HCC)] Onset: 10-19-2023 Unclassified (1 source) Low back pain, unspecified; Translations: [Low back pain, unspecified] Onset: 06-18-2023 Past or Other Problems Problem Classification Problem Date Documented Date Episodic/Chronic E Codes: Natural/environment (1 source) Bitten by dog, initial encounter; Translations: [BITTEN BY DOG INITIAL ENCOUNTER] Onset: 05-21-2022 Episodic Immunizations and screening for infectious disease (1 source) Encounter for immunization; Translations: [ENCOUNTER FOR IMMUNIZATION] Onset: 05-21-2022 Episodic Open wounds of extremities (4 sources) Open bite of right wrist, initial encounter; Translations: [OPEN BITE OF RIGHT WRIST INIT ENC] Onset: 05-19-2022 Episodic Other aftercare (1 source) Other buttermaker (current) drug therapy; Translations: [OTH JAIL CURRENT DRUG THERAPY] Onset: 09-12-2022 Episodic Other circulatory disease (1 source) Personal history of transient ischemic attack (TIA), and cerebral infarction without residual deficits; Translations: [PERS HX TIA AND CI NO RESID DEFICIT] Onset: 05-21-2022 Episodic Other connective tissue disease (1 source) Arthrodesis status; Translations: [ARTHRODESIS STATUS] Onset: 05-21-2022 Episodic Residual codes; unclassified (1 source) Acquired absence of both cervix and uterus; Translations: [ACQUIRED ABSENCE BOTH CERVIX AND UTERUS] Onset: 05-21-2022 Episodic Skin and subcutaneous tissue infections (1 source) Cellulitis of right upper limb; Translations: [CELLULITIS OF RIGHT UPPER LIMB] Onset: 05-21-2022 Episodic Sprains and strains (1 source) Unspecified sprain of right wrist, initial encounter; Translations: [UNSPECIFIED SPRAIN RT WRIST INITIAL] Onset: 05-21-2022 Episodic Superficial injury; contusion (1 source) Abrasion of left wrist, initial encounter; Translations: [ABRASION LEFT WRIST INITIAL ENC] Onset: 05-21-2022 Episodic Unclassified (1 source) Low back pain, unspecified M54.50 Unclassified (1 source) Atherosclerotic heart disease of [place] coronary artery with refractory angina pectoris (CMS-HCC); Translations: [Atherosclerotic heart disease of [place] coronary artery with refractory angina pectoris (CMS-HCC)] Onset: 10-26-2023 Results Test Name Value Interpretation Reference Range Facil ity Provider Letteron 08-15-2024 Provider Letter Provider Letter August 15, 2024 [address]O [address] [place] [phone] LIVIA JACOBO 1960 Dear Livia, We have been trying to reach you with no success. It is important that you return our call regarding your hospital discharge upon receiving this letter. Also, at the time of your call, please provide us with your current information. Thank you for your prompt attention to this matter. Sincerely, Alex RiveraOil Scout [phone] [facility] ED Note-Physicianon 08-14-20 ED Note-Physician ED Note-Physician Basic Information Time Seen: Davey Posada PA-C 08/13/2024 08:50 Chief Complaint pt has chest pain since yesterday. Pt A&O x 3 with ABC's and MSP's intact. hx of SD and COPD. History of Present Illness 63-year-old female comes to the ED for evaluation of chest pain. She presents via EMS from home. She states been having intermittent chest pain since yesterday that intensified today. Complains of midsternal chest. Radiation to the left jaw/arm. Associated nausea, shortness of breath and diaphoresis. No vomiting. She does feel improved after nitroglycerin. She has a history of CAD/SD with previous stenting. Review of Systems A 10 point review of systems is negative except as noted above. Medical and Surgical History: Reviewed and noted Social history: Lives at home Tobacco: Denies Physical Exam Vitals & Measurements T: 37 ?C(Oral) HR: 82(Peripheral) RR: 18 BP: 144/84 SpO2: 95% HT: 154 cm WT: 75.4 kg BMI: 31.79 Nurses notes and vital signs reviewed and patient is not hypoxic. General: The patient appears well and in no significant distress Patient is resting comfortably on the exam bed. Skin: Warm, dry, no pallor noted. Head: Atraumatic. Neck: No JVD. Eye: Normal conjunctiva. Ears, Nose, Mouth, and Throat: Moist mucous members. Cardiovascular: Strong distal pulses. Normal cardiac rate. No peripheral edema. Chest wall: Respiratory: Respirations are nonlabored. Clear to auscultation. Back: Normal range of motion, no CVA tenderness. Musculoskeletal: Normal ROM with no gross deformity. Gastrointestinal: Soft and nontender. Urological: Neurological: Awake and alert. No focal deficits. Follows commands. GCS 15. Psychiatric: Cooperative. Medical Decision Making Laboratory studies reviewed and noted. Initial troponin is normal. EKG does show worsening ST depressions. With serial examinations he continues have some mild chest discomfort and is treated with a dose of morphine. Case discussed the hospitalist for admission. Heart score 6 Assessment/Plan 1. Chest pain, (R07.9: Chest pain, unspecified)Chest pain 2. CAD in [place] artery (I25.10: Atherosclerotic heart disease of [place] coronary artery without angina pectoris) 3. HTN (hypertension), benign (I10: Essential (primary) hypertension) 4. COPD (chronic obstructive pulmonary disease) (J44.9: Chronic obstructive pulmonary disease, unspecified) 5. Anxiety and depression (F41.9: Anxiety disorder, unspecified) 6. Polyneuropathy (G62.9: Polyneuropathy, unspecified) 7. RLS (restless legs syndrome) (G25.81: Restless legs syndrome) 8. Current smoker (F17.200: Nicotine dependence, unspecified, uncomplicated) Depression, unspecified (F32.A: Depression, unspecified) Orders: morphine, 4 mg = 1 mL, Injection, IV Push, Once, Stop date 08/13/24 9:59:00 EDT, STAT, Start date 08/13/24 9:59:00 EDT, 08/13/24 9:59:00 EDT ondansetron, 4 mg = 2 mL, Injection, IV Push, Once, Stop date 08/13/24 9:59:00 EDT, STAT, Start date 08/13/24 9:59:00 EDT, 08/13/24 9:59:00 EDT Basic Metabolic Panel CBC w/ Auto Diff ECG 12 Lead Adult ED Cardiac Monitoring ED Physician consult Hospitalist for continued care eGFR Oxygen Saturation Oxygen Therapy PT & PTT Saline Lock Insert Troponin 0 Hr. Troponin 1 Hr. XR Chest Single View Medications Administered Given alprazolam 1 mg Tab, 1 mg, Oral carved6.25Tab [F], 6.25 mg, Oral DuoNeb 2.5 mg-0.5 mg/3 mL Soln-Inh, 3 mL, Inhalation [id number] units/mLInjection [F], 5000 unit(s), SubCutaneous hzacbl6Hhy-ZG [F], 30 mg, Oral zwzvnt0Xzm [F], 100 mg, Oral morphine 4 mg/mL Inj, 4 mg, IV Push [id number] [F], 10 mg, Oral [id number]-SI [F], 500 mg, Oral witreu3Ymu [F], 1 mg, Oral Zofran 4 mg/2 mL Injection, 4 mg, IV Push Disposition Plan Patient Discharge Condition Disposition: Admitted to the hospital Condition: Improved and stable Counseled: Patient and/or family were counseled to workup, results, treatment plan and follow-up recommendations Discharge Prescription List Prescriptions No active prescription medications Follow-up With When Contact Information Amilcar Matthews PA-C Within 1 to 2 weeks [address] [place] [address]- [phone] Additional Instructions: Fidencio POSEY, Dorie Jean Baptiste, [facility], MED Within 5 to [address] [place] [address]- Additional Instructions: Patient Education Nonspecific Chest Pain, Adult, [id number]-[id number] Aspirin and Your Heart Attestation I performed a substantive part of the MDM during the patient?s E/M visit. I personally made or approved the documented management plan and acknowledge its risk of complications. (Independent Interpretation) My (EKG/X-Ray/US/CT) interpretation as above. (Discussion) Management/test interpretation discussed with APC. This report was transcribed using voice recognition software. Every effort was made to ensure accuracy, however, inadvertently computerized switch inspector mistakes may be present. Approp (more content not included)... Normal [facility] Comment on above: Result Comment: Elec tronically Signed By: Davey Posada PA-C\.br\Date and Time Signed: 08/13/24 19:13 EDT\.br\Electronically Co-Signed By: Ainsley Rose M.D.\.br\Date and Time Co-Signed: 08/14/24 07:20 EDT BMPon 08-13-2024 Anion gap [Moles/Vol] 11 mmol/L Normal 6-16 [facility] Comment on above: Performed By: #### 2 [id number] #### [facility] [address] [place] [address] Calcium [Mass/Vol] 8.9 mg/dL Normal 8.9-11.1 [facility] Comment on above: Performed By: #### 2 [id number] #### [facility] [address] [place] [address] Chloride [Moles/Vol] 103 mmol/L Normal 101-111 [facility] Comment on above: Performed By: #### 2 [id number] #### [facility] [address] [place] [address] CO2 [Moles/Vol] 27 mmol/L Normal 21-31 [facility] Comment on above: Performed By: #### 2 [id number] #### [facility] [address] [place] [address] Creatinine [Mass/Vol] 0.7 mg/dL Normal 0.5-1.3 [facility] Comment on above: Performed By: #### 2 [id number] #### [facility] [address] [place] [address] Glucose [Mass/Vol] 91 mg/dL Normal 55-199 [facility] Comment on above: Performed By: #### 2 [id number] #### [facility] [address] [place] [address] Potassium [Moles/Vol] 3.9 mmol/L Normal 3.5-5.3 [facility] Comment on above: Performed By: #### 2 [id number] #### [facility] [address] [place] [address] Sodium [Moles/Vol] 137 mmol/L Normal 135-145 [facility] Comment on above: Performed By: #### 2 [id number] #### [facility] [address] [place] [address] Urea nitrogen [Mass/Vol] 12 mg/dL Normal 5-21 [facility] Comment on above: Performed By: #### 2 [id number] #### [facility] [address] [place] [address] Urea nitrogen/Creatinine [Mass ratio] 17 No Units Normal 10-20 [facility] Comment on above: Performed By: #### 2 [id number] #### [facility] [address] [place] [address] CBC w/ Auto Diffon 4 Basophils/100 WBC (Bld) 0.9 % Normal 0.0-2.0 [facility] Comment on above: Performed By: #### 2 [id number] #### [facility] [address] [place] [address] Basophils/Leukocytes Auto (Bld) [Pure # fraction] 0.0 E9/L Normal 0.0-0.2 [facility] Comment on above: Performed By: #### 2 [id number] #### [facility] [address] [place] [address] Eosinophils (Bld) [#/Vol] 0.1 E9/L Normal 0.0-0.5 [facility] Comment on above: Performed By: #### 2 [id number] #### [facility] [address] [place] [address] Eosinophils/100 WBC (Bld) 2.3 % Normal 0.0-8.0 [facility] Comment on above: Performed By: #### 2 [id number] #### [facility] [address] [place] [address] Erythrocyte distribution width (RBC) [Ratio] 12.6 % Normal 10.9-14.2 [facility] Comment on above: Performed By: #### 2 [id number] #### [facility] [address] [place] [address] Hematocrit (Bld) [Volume fraction] 42.0 % Normal 34.0-46.0 [facility] Comment on above: Performed By: #### 2 [id number] #### [facility] [address] [place] [address] Hemoglobin (Bld) [Mass/Vol] 15.3 g/dL Normal 12.0-16.0 [facility] Comment on above: Performed By: #### 2 [id number] #### [facility] [address] [place] [address] Lymphocytes (Bld) [#/Vol] 1.6 E9/L Normal 1.0-4.0 [facility] Comment on above: Performed By: #### 2 [id number] #### [facility] [address] [place] [address] Lymphocytes/100 WBC (Bld) 31.9 % Normal 14.0-50.0 [facility] Comment on above: Performed By: #### 2 [id number] #### [facility] [address] [place] [address] MCH (RBC) [Entitic mass] 34.7 pg High 27.0-34.0 [facility] Comment on above: Performed By: #### 2 [id number] #### [facility] [address] [place] [address] MCHC (RBC) [Mass/Vol] 36.5 g/dL High 31.4-36.0 [facility] Comment on above: Performed By: #### 2 [id number] #### [facility] [address] [place] [address] MCV (RBC) [Entitic vol] 95.1 fL Normal 80.0-100.0 [facility] Comment on above: Performed By: #### 2 [id number] #### [facility] [address] [place] [address] Monocytes (Bld) [#/Vol] 0.5 E9/L Normal 0.2-1.0 [facility] Comment on above: Performed By: #### 2 [id number] #### [facility] [address] [place] [address] Neutrophils (Bld) [#/Vol] 2.7 E9/L Normal 2.0-7.5 [facility] Comment on above: Performed By: #### 2 [id number] #### [facility] [address] [place] [address] Neutrophils/100 WBC (Bld) 54.0 % Normal 36.0-75.0 [facility] Comment on above: Performed By: #### 2 [id number] #### [facility] [address] [place] [address] Platelet 198.0 E9/L Normal 150.0-500.0 [facility] Comment on above: Performed By: #### 2 [id number] #### [facility] [address] [place] [address] Platelet mean volume (Bld) [Entitic vol] 6.5 fL Normal 6.4-10.8 [facility] Comment on above: Performed By: #### 2 [id number] #### [facility] [address] [place] [address] RBC (Bld) [#/Vol] 4.4 E12/L Normal 4.3-5.9 [facility] Comment on above: Performed By: #### 2 [id number] #### [facility] [address] [place] [address] WBC corrected for nucl RBC Auto (Bld) [#/Vol] 4.9 E9/L Normal 4.0-11.0 [facility] Comment on above: Performed By: #### 2 [id number] #### [facility] [address] [place] [address] CHEMISTRYOrdered By: SYSTEM SYSTEM on 08-13-2024 Troponin HS 6.30 pg/mL Low 10.10 - 27.10 pg/mL [facility] Comment on above: Interpretive Data: T he 95% CI (Confidence Interval) PPV (Positive Predictive Value) for myocardial infarction in females is 38 pg/mL, in males 51 pg/mL. The results should be used in conjunction with clinical conditions of myocardial infarction. (Access High Sensitivity Troponin I Instructions For Use, [employer], June 2018) Troponin HS 4.70 pg/mL Low 10.10 - 27.10 pg/mL [facility] Comment on above: Interpretive Data: T he 95% CI (Confidence Interval) PPV (Positive Predictive Value) for myocardial infarction in females is 38 pg/mL, in males 51 pg/mL. The results should be used in conjunction with clinical conditions of myocardial infarction. (Access High Sensitivity Troponin I Instructions For Use, [employer], June 2018) Anion gap [Moles/Vol] 11 mmol/L Normal 6 - 16 mEq/L [facility] Calcium [Mass/Vol] 8.9 mg/dL Normal 8.9 - 11.1 mg/dL [facility] Chloride [Moles/Vol] 103 mmol/L Normal 101 - 111 mmol/ L [facility] CO2 [Moles/Vol] 27 mmol/L Normal 21 - 31 mmol/L [facility] Creatinine [Mass/Vol] 0.7 mg/dL Normal 0.5 - 1.3 mg/dL [facility] eGFR 96 mL/min/1.73 m2 Normal >=59mL/min/1.73 m2 [facility] Glucose [Mass/Vol] 91 mg/dL Normal 55 - 199 mg/dL Re misol Chem Potassium [Moles/Vol] 3.9 mmol/L Normal 3.5 - 5.3 mmol/L [facility] Sodium [Moles/Vol] 137 mmol/L Normal 135 - 145 mmol/L Remisol Chem Troponin HS 4.60 pg/mL Low 10.10 - 27.10 pg/mL Remisol Chem Comment on above: Interpretive Data: T he 95% CI (Confidence Interval) PPV (Positive Predictive Value) for myocardial infarction in females is 38 pg/mL, in males 51 pg/mL. The results should be used in conjunction with clinical conditions of myocardial infarction. (Access High Sensitivity Troponin I Instructions For Use, Shivani [place], June 2018) Urea nitrogen [Mass/Vol] 12 mg/dL Normal 5 - 21 mg/dL Remisol Chem Urea nitrogen/Creatinine [Mass ratio] 17 mg/mg Normal 10 - 20 Remisol Chem COAGULATIONOrdered By: Pepito Irvin on 08-13-2024 aPTT Coag (PPP) [Time] 33.2 s Normal 25.1 - 36.5 second(s) [facility] Auto Coag Comment on above: Interpretive Data: Rah aguilar 15 days - 4 weeks 1 - 5 months 6 - 11 months 1 - 5 years 6 - 10 years 11 - 17 years PTT Mean: 35.4 (27.6-45.6) Mean: 33.5 (24.8-40.7) Mean: 32.4 (25.1-40.7) Mean: 31.6 (24.0-39.2) Mean: 31.6 (26.9-38.7) Mean: 31.0 (24.6-38.4) Pediatric Reference ranges were obtained from a study by ivet Lundberg al. prepared from 1437 samples obtained at 7 different centers using the same coagulation reagent and instrumentation as [facility]. Currently there are no coagulation studies available worldwide for children to 14 days, and no normal ranges. Heparin therapeutic range (represented by Anti-Factor Xa activity of 0.2 - 0.4 U/mL) corresponds to PTT of 56.6 - 109.0 sec. INR Coag (PPP) [Relative time] 1.04 {INR} Invalid Interpretation Code [facility] Auto Coag Comment on above: Interpretive Data: I NR results are specifically intended to assess patients stabilized on long-term Anticoagulation therapy suggested INR s Less Intensive Anticoagulation 2.0 3.0 Conventional Range 3.0 4.5 PT Coag (PPP) [Time] 11.6 s Normal 9.4 - 1 2.5 second(s) [facility] Auto Coag Comment on above: Interpretive Data: 1 5 days - 4 weeks 1 - 5 months 6 -11 months 1 5 years 6 10 years 11 -17 years Mean: 11.2 (9.5 12.6) Mean: 11.0 (9.7 12.8) Mean: 11.0 (9.8 13.0) Mean: 11.3 (9.9 13.4) Mean: 11.7 (10.0 14.6) Mean: 11.8 (10.0 - 14.1) Pediatric Reference ranges were obtained from a study by jay Lundberg prepared from 1437 samples obtained at 7 different centers using the same coagulation reagent and instrumentation as [facility]. Currently there are no coagulation studies available worldwide for children to 14 days, and no normal ranges. ED Clinical Summaryon 2023 ED Clinical Summary ED Clinical Summary [place] [id number] ED Clinical Summary Person Information Name: LIVIA JACOBO/New_Jose E Age: 63 Years : 1960 Sex: Female Language: Slovenian PCP: Dorie Luis MD Marital Status: Visit Id: Visit Reason: Chest pain; CP Speciality: Acuity: 2 Enc Type: Observation Med Service: Medical Arrival: 08/13/2024 08:49:35 Discharge: LOS: 000 05:53 Checkin: 08/13/2024 08:49:35 Checkout: 08/13/2024 14:42:51 Dispo Type: Admitted as IP to this [facility] EVENTS: Event Name Event Status Request Date/Time Start Date/Time Complete Date/Time Arrive Complete 08/13/2024 08:49:35 08/13/2024 08:49:35 08/13/2024 08:49:35 Document Home Meds Complete 08/13/2024 08:49:35 08/13/2024 10:55:42 08/13/2024 10:55:42 Triage Complete 08/13/2024 08:49:35 08/13/2024 09:05:27 08/13/2024 09:05:27 Dr Exam Complete 08/13/2024 08:50:37 08/13/2024 08:50:37 08/13/2024 08:50:37 Registration Complete 08/13/2024 08:50:37 08/13/2024 08:51:15 08/13/2024 09:28:32 EKG Complete 08/13/2024 08:50:52 08/13/2024 09:00:41 Pending Labs Complete 08/13/2024 08:50:52 08/13/2024 10:51:13 Lab Complete 08/13/2024 08:50:52 08/13/2024 09:42:05 Patient Care Request 08/13/2024 08:50:52 RT Request 08/13/2024 08:50:52 X-Ray Complete 08/13/2024 08:50:52 08/13/2024 08:58:29 08/13/2024 09:21:32 Bed Assign Complete 08/13/2024 08:51:15 08/13/2024 08:51:15 08/13/2024 08:51:15 RN Exam Complete 08/13/2024 08:51:15 08/13/2024 09:28:01 08/13/2024 09:28:01 Dr Exam Complete 08/13/2024 08:53:40 08/13/2024 08:53:40 08/13/2024 08:53:40 Pending Labs Complete 08/13/2024 09:16:04 08/13/2024 09:16:04 08/13/2024 09:42:05 Lab Complete 08/13/2024 09:16:04 08/13/2024 09:16:04 08/13/2024 09:42:05 Wet Read Request 08/13/2024 09:21:32 Reg Complete Request 08/13/2024 09:28:32 Reg Bed Request Complete 08/13/2024 09:28:32 08/13/2024 09:28:32 08/13/2024 09:28:32 Consult Request 08/13/2024 09:59:09 Hospitalist Consult Request 08/13/2024 09:59:55 Meds Admin Complete 08/13/2024 09:59:55 08/13/2024 10:28:02 Observation Request 08/13/2024 11:48:10 Patient Care Request 08/13/2024 11:48:10 Patient Care Request 08/13/2024 11:48:11 Patient Care Request 08/13/2024 11:48:12 Medicare Form Complete 08/13/2024 11:48:13 08/13/2024 11:59:47 Patient Care Request 08/13/2024 11:48:13 Patient Care Request 08/13/2024 11:48:13 Meds Admin Request 08/13/2024 12:26:05 RT Tx/ABG Request 08/13/2024 12:26:06 RT Tx/ABG Request 08/13/2024 12:26:06 RT Tx/ABG Request 08/13/2024 12:26:06 RT Tx/ABG Request 08/13/2024 12:26:06 Patient Care Request 08/13/2024 12:28:52 Consult Request 08/13/2024 12:28:52 Pending Labs Request 08/13/2024 12:28:52 Lab Request 08/13/2024 12:28:52 Meds Admin Request 08/13/2024 12:28:52 RT Request 08/13/2024 12:28:52 RT Tx/ABG Request 08/13/2024 12:28:52 Meds Admin Request 08/13/2024 12:36:19 Meds Admin Cancel 08/13/2024 12:40:34 08/13/2024 13:15:12 Meds Admin Request 08/13/2024 12:44:56 Inpatient Bed Ready Complete 08/13/2024 14:42:52 08/13/2024 14:42:52 08/13/2024 14:42:52 ADDRESS: [place] [id number] PHYS DOC NOTES: MEDICAL INFORMATION: Prescriptions Given: Medications to Continue with No Changes Other Medications albuterol (Albuterol (Eqv-ProAir HFA) 90 mcg/inh inhalation aerosol) 2 Puffs Inhalation every 4 hours as needed Shortness of breath or wheezing. as needed. alprazolam (alprazolam 1 mg Tab) 1 Tablets By Mouth 4 times a day as needed for anxiety. aspirin (aspirin 81 mg Oral EC Tab) 1 Tablets By Mouth every day. atorvastatin (atorvastatin 80 mg Tab) 1 Tablets By Mouth every day. Refills: 5. budesonide/formoter ol/glycopyrrolate (Breztri Aerosphere) 2 Puffs Inhalation 2 times a day. carvedilol (carvedilol 6.25 mg Tab) 1 Tablets By Mouth 2 times a day. Refills: 3. isosorbide mononitrate (isosorbide mononitrate 30 mg ER Tab) 1 Tablets By Mouth 2 times a day. Refills: 6. lamotrigine (Lamictal 25 mg Tab) 3 Tablets By Mouth once a day (at bedtime). losartan (losartan 100 mg Tab) 1 Tablets By Mouth every day. Refills: [facility]. [facility] (Handicap Placrock, 5 years.) Handicap Placard, 5 years.. Refills: 0. nitroglycerin (nitroglycerin 0.4 mg sublingual Tab) 1 Tablets Sublingual every 5 minutes as needed Chest pain. Refills: 6. olanzapine (ZyPREXA 5 mg Tab) 1 Tablets By Mouth once a day (at bedtime). one tablet at bedtime. prasugrel (prasugrel 10 mg Tab) 1 Tablets By Mouth every day. Refills: 5. quetiapine (quetiapine 100 mg Tab) 1 Tablets By Mouth at bedtime. ranolazine (Ranexa 500 mg Tab-ER) 1 Tablets By Mouth 2 times a day. Refills: 5. ropinirole (ropinirole 1 mg Tab) 1 Tablets By Mouth every day. Refills: 1. trazodone (traZODONE 100 mg Tab) 3 Tablets By Mouth once a day (at bedtime). venlafaxine (Effexor XR 150 mg Cap-ER) 2 Capsules By Mouth once a day (at bedtime). PATIENT EDUCATION INFORMATION: Instructions: (more content not included)... Normal [facility] ED Patient Education Noteon 08-13-2024 ED Patient Education Note ED Patient Education Note Normal [facility] ED Patient Summaryon 024 ED Patient Summary ED Patient Summary [place] [id number] Patient Discharge Instructions Person Information Name: LIVIA JACOBO Age: 63 Years Arrival Date: 08/13/2024 08:49:35 Discharge Diagnosis: 1:Chest pain; 2:CAD in [place] artery; 3:HTN (hypertension), benign; 4:COPD (chronic obstructive pulmonary disease); 5:Anxiety and depression; 6:Polyneuropathy; 7:RLS (restless legs syndrome); 8:Current smoker; Depression, unspecified Primary Care Physician: Dorie Luis MD Provider Information Primary Provider: Ainsley Rose M.D. Advanced Lining Finisher:Davey Posada PA-C The exam and treatment you received in the Emergency Department were for an urgent problem and are not intended as complete care. It is important that you follow up with a doctor, nurse practitioner, or physician?s assistant program director for ongoing care. If your symptoms become worse or you do not improve as expected and you are unable to reach your usual health care provider, you should return to the Emergency Department. We are available 24 hours a day. LIVIA JACOBO has been given the following list of patient education materials, prescriptions and follow-up instructions: Follow-up Instructions: In the event that this physician does not participate in your insurance network, please consult with your insurance company to find a nearby participating provider. Patient Education Materials: A MESSAGE TO ALL PATIENTS REGARDING OPIOIDS PRESCRIPTION OPIOIDS: WHAT YOU NEED TO KNOW Prescription opioids can be used to help relieve [id number] pain and are often prescribed following a surgery or injury, or for certain health conditions. These medications can be an important part of the treatment but also come with serious risks. It is important to work with your healthcare provider to make sure you are getting the safest, most effective care. WHAT ARE THE RISKS AND SIDE EFFECTS OF OPIOID USE? Prescription opioids carry serious risks of addiction and overdose, especially with prolonged use. An opioid overdose, often marked by slowed breathing, can cause sudden . The use of prescription opioids can have a number of side effects as well, even when taken as directed: ? Tolerance?meaning you might need to take more of the medication for the same pain relief ? Physical dependence?meaning you have symptoms of withdrawal when a medication is stopped ? Increased sensitivity to pain ? Constipation ? Nausea, vomiting, and dry mouth ? Sleepiness and dizziness ? Confusion ? Depression ? Low levels of testosterone that can result in lower sex drive, energy, and strength ? Itching and sweating RISKS ARE GREATER WITH: ? History of drug misuse, substance use disorder, or overdose ? Mental health conditions (such as depression or anxiety) ? Sleep apnea ? Older age (65 years and older) ? Avoid alcohol while taking prescription opioids. Also, unless specifically advised by your health care provider, medications to avoid include: ? Benzodiazepines (such as Xanax or Valium) ? Muscle relaxants (such as Soma or Flexeril) ? Hypnotics (such as Ambien or Lunesta) ? Other prescription opioids KNOW YOUR OPTIONS Talk to your health care provider about ways to manage your pain that don?t involve prescription opioids. Some of these options may actually work better and have fewer risks and side effects. Options may include: ? Pain relievers such as acetaminophen, ibuprofen, and naproxen ? Some medication that are also used for depression or seizures ? Physical therapy and exercise ? Cognitive behavioral therapy, a psychological, goal-directed approach, in which patients learn how to modify physical, behavioral, and emotional triggers of pain and stress. IF YOU ARE PRESCRIBED OPIOIDS FOR PAIN: ? Never take opioids in greater amounts or more often than prescribed. ? Follow up with your primary health care provider. o Work together to create a plan on how to manage your pain. o Talk about ways to help manage your pain that don?t involve prescription opioids. o Talk about any and all concerns and side effects. ? Help prevent misuse and abuse o Never sell or share prescription opioids. o Never use another person?s prescription opioids. ? Store prescription opioids in a secure place and out of reach of others (this may include visitors, children, friends, and family). ? Safely dispose of unused prescription opioids: Find your community drug take-back program or your pharmacy mail-back program, or flush them down the toilet, following guidance from the Food and Drug Administration (www.fda.gov/Drugs/ ResourcesForYou). ? Visit www.cdc.gov/drugove rdose to learn about the risks of opioids abuse and overdose. ? If you believe you may be struggling with addiction, tell your health day care director and ask for g (more content not included)... Normal [facility] HEMATOLOGYOrdered By: SYSTEM SYSTEM on 08-13-2024 Basophils/100 WBC (Bld) 0.9 % Normal 0.0 - 2.0 % Remisol Heme Basophils/Leukocytes Auto (Bld) [Pure # fraction] 0.0 E9/L Normal 0.0 - 0.2 E9/L Remisol Heme Eosinophils (Bld) [#/Vol] 0.1 E9/L Normal 0.0 - 0.5 E9/L Remisol Heme Eosinophils/100 WBC (Bld) 2.3 % Normal 0.0 - 8.0 % Remisol Heme Erythrocyte distribution width (RBC) [Ratio] 12.6 % Normal 10.9 - 14.2 % Remisol Heme Hematocrit (Bld) [Volume fraction] 42.0 % Normal 34.0 - 46.0 % Remisol Heme Hemoglobin (Bld) [Mass/Vol] 15.3 g/dL Normal 12.0 - 16.0 gm/dL Remisol Heme Lymphocytes (Bld) [#/Vol] 1.6 E9/L Normal 1.0 - 4.0 E9/L Remisol Heme Lymphocytes/100 WBC (Bld) 31.9 % Normal 14.0 - 50.0 % Remisol Heme MCH (RBC) [Entitic mass] 34.7 pg High 27.0 - 34.0 pg Remisol Heme MCHC (RBC) [Mass/Vol] 36.5 g/dL High 31.4 - 36.0 gm/dL Remisol Heme MCV (RBC) [Entitic vol] 95.1 fL Normal 80.0 - 100.0 fL Remisol Heme Monocytes (Bld) [#/Vol] 0.5 E9/L Normal 0.2 - 1.0 E9/L Remisol Heme Monocytes/100 WBC (Bld) 10.9 % Normal 4.0 - 14.0 % Remisol Heme Neutrophils (Bld) [#/Vol] 2.7 E9/L Normal 2.0 - 7.5 E9/L Remisol Heme Neutrophils/100 WBC (Bld) 54.0 % Normal 36.0 - 75.0 % Remisol Heme Platelet 198.0 E9/L Normal 150.0 - 500.0 E9/L Remiso l Heme Platelet mean volume (Bld) [Entitic vol] 6.5 fL Normal 6.4 - 10.8 fL Remisol Heme RBC (Bld) [#/Vol] 4.4 E12/L Normal 4.3 - 5.9 E12/L Re misol Heme WBC corrected for nucl RBC Auto (Bld) [#/Vol] 4.9 E9/L Normal 4.0 - 11.0 E9/L Remisol Heme Inpatient Patient Summaryon 08-13-2024 Inpatient Patient Summary Inpatient Patient Summary LIVIA JACOBO :1960 Visit Date:08/13/2024 Inpatient Discharge Instructions Your Care Team Admitting Physician - Eligio Lopez III, DO Consulting Physician - Sheila POSEY, Tiffany Chavarria [facility] Cardio, XXXX Reason for Your Visit chest pains Your Diagnosis Chest pain, Chest pain CAD in [place] artery HTN (hypertension), benign COPD (chronic obstructive pulmonary disease) Anxiety and depression Polyneuropathy RLS (restless legs syndrome) Current smoker Chest pain Depression, unspecified Tests Performed BMP -- Results Pending -- CBC w/ Auto Diff -- Results Pending -- XR Chest Single View Please visit your patient portal for your results or contact your primary care physician. This Is Your Medications List [facility] Prescription (Rosangela Gautam, 5 years.) acetaminophen (acetaminophen 325 mg Tab) albuterol (Albuterol (Eqv-ProAir HFA) 90 mcg/inh inhalation aerosol) alprazolam (alprazolam 1 mg Tab) aspirin (aspirin 81 mg Oral EC Tab) atorvastatin (atorvastatin 80 mg Tab) budesonide/formoter ol/glycopyrrolate (Breztri Aerosphere) carvedilol (carvedilol 6.25 mg Tab) isosorbide mononitrate (isosorbide mononitrate 30 mg ER Tab) lamotrigine (Lamictal 25 mg Tab) losartan (losartan 100 mg Tab) nitroglycerin (nitroglycerin 0.4 mg sublingual Tab) olanzapine (ZyPREXA 5 mg Tab) prasugrel (prasugrel 10 mg Tab) quetiapine (quetiapine 100 mg Tab) ranolazine (Ranexa 500 mg Tab-ER) ropinirole (ropinirole 1 mg Tab) trazodone (traZODONE 100 mg Tab) venlafaxine (Effexor XR 150 mg Cap-ER) Procedure History PCI - Percutaneous coronary intervention (07/09/2023), Angioplasty, Gallbladder, Hysterectomy. Discharge Vitals Temperature (Oral) 36.3 ?C Heart Rate (Monitored) 70 Respiratory Rate 18 Blood Pressure 128/78 Height 162.56 cm Weight 78.2 kg BMI 29.59 What to do next Instructions From Your Doctor Event Name Event Result Discharge Restrictions No restrictions Discharge Diet(s) Fat Modified- Low cholesterol, Low Sodium- 2000 mg Pending Diagnostic Test Results None Previously Scheduled Follow-Up Appointments Tuesday 11:30 AM EST With: Amilcar Matthews PA-C Where: [facility]iology Clinic Tuesday 3:30 PM EST With: Dorie Luis MD Where: [place] [address]- Tuesday 2:30 PM EDT With: Where: [address] [address]- New Follow Up Appointments after Discharge Follow Up with Amilcar Matthews PA-C When: Within 1 to 2 weeks Where: [facility] [place] [phone] Follow Up with Dorie Luis MD, [facility] When: Within 5 to 7 days Where: [address] [place] [phone]- Medications What How Much When Why Instructions Next Dose New acetaminophen (acetaminophen 325 mg Tab) 2 Tablets By Mouth Every 6 hours as needed for Pain As needed Unchanged albuterol (Albuterol (Eqv-ProAir HFA) 90 mcg/ inh inhalation aerosol) 2 Puffs Inhalation Every 4 hours as needed for Shortness of breath or wheezing as needed As Needed Unchanged alprazolam (alprazolam 1 mg Tab) 1 Tablets By Mouth 4 times a day as needed for for anxiety 08/13 Unchanged aspirin (aspirin 81 mg Oral EC Tab) 1 Tablets By Mouth Every day Unchanged atorvastatin (atorvastatin 80 mg Tab) 1 Tablets By Mouth Every day 08/13 Unchanged budesonide/ formoterol/ glycopyrrolate (Breztri Aerosphere) 2 Puffs Inhalation 2 times a day 08/13 Unchanged carvedilol (carvedilol 6.25 mg Tab) 1 Tablets By Mouth 2 times a day 08/13 Unchanged isosorbide mononitrate (isosorbide mononitrate 30 mg ER Tab) 1 Tablets By Mouth 2 times a day 08/13 Unchanged lamotrigine (Lamictal 25 mg Tab) 3 Tablets By Mouth Once a day (at bedtime) 08/13 Unchanged losartan (losartan 100 mg Tab) 1 Tablets By Mouth Every day Unchanged Misc Prescription (Handicap Lotus, 5 years.) See instructions Anxiety and depression Depression, unspecified HTN (hypertension), benign RLS (restless legs syndrome) Chronic obstructive pulmonary disease, unspecified COPD type Primary insomnia Current smoker Polyneuropathy Walker as ambulation aid Adult BMI 33.0-33.9 kg/sq m Handicap Lotus, 5 years. Unchanged nitroglycerin (nitroglycerin 0.4 mg sublingual Tab) 1 Tablets Sublingual Every 5 minutes as needed for Chest pain As Needed Unchanged olanzapine (ZyPREXA 5 mg Tab) 1 Tablets By Mouth Once a day (at bedtime) one tablet at bedtime 08/13 PM Unchanged prasugrel (prasugrel 10 mg Tab) 1 Tablets By Mouth Every day Unchanged quetiapine (quetiapine 100 mg Tab) 1 Tablets By Mouth At bedtime 08/13 Unchanged ranolazine (Ranexa 500 mg Tab-ER) 1 Tablets By Mouth 2 times a day 9/ 30 PM Unchanged ropinirole (ropiniro (more content not included)... Normal [facility] PT & PTTon 08-13-2024 aPTT Coag (PPP) [Time] 33.2 second(s) Normal 25.1-36.5 [facility] Comment on above: Result Comment: Para meter 15 days - 4 weeks 1 - 5 months 6 - 11 months 1 - 5 years 6 - 10 years 11 - 17 years PTT Mean: 35.4 (27.6-45.6) Mean: 33.5 (24.8-40.7) Mean: 32.4 (25.1-40.7) Mean: 31.6 (24.0-39.2) Mean: 31.6 (26.9-38.7) Mean: 31.0 (24.6-38.4) Pediatric Reference ranges were obtained from a study by Messi Chambers et al. prepared from 1437 samples obtained at 7 different centers using the same coagulation reagent and instrumentation as [facility]. Currently there are no coagulation studies available worldwide for children to 14 days, and no normal ranges. Heparin therapeutic range (represented by Anti-Factor Xa activity of 0.2 - 0.4 U/mL) corresponds to PTT of 56.6 - 109.0 sec. Performed By: #### 1 [id number] #### [facility] [address] [place] [address] INR Coag (PPP) [Relative time] 1.04 {INR} Invalid Interpretation Code [facility] Comment on above: Result Comment: INR results are specifically intended to assess patients stabilized on long-term Anticoagulation therapy suggested INR?s ?Less Intensive Anticoagulation? 2.0 ? 3.0 Conventional Range 3.0 ? 4.5 Performed By: #### 1 [id number] #### [facility] [address] [place] [address] PT Coag (PPP) [Time] 11.6 second(s) Normal 9.4-12.5 [facility] Comment on above: Result Comment: 15 d ays - 4 weeks 1 - 5 months 6 -11 months 1 ? 5 years 6 ? 10 years 11 -17 years Mean: 11.2 (9.5 ? 12.6) Mean: 11.0 (9.7 ? 12.8) Mean: 11.0 (9.8 ? 13.0) Mean: 11.3 (9.9 ? 13.4) Mean: 11.7 (10.0 ? 14.6) Mean: 11.8 (10.0 - 14.1) Pediatric Reference ranges were obtained from a study by ivet Lundberg al. prepared from 1437 samples obtained at 7 different centers using the same coagulation reagent and instrumentation as [facility]. Currently there are no coagulation studies available worldwide for children to 14 days, and no normal ranges. Performed By: #### 1 [id number] #### [facility] [address] [place] [address] Pre-Arrival Noteon Pre-Arrival Note Pre-Arrival Note Pre-Arrival Summary Name: , Current Date: 08/13/2024 08:55:19 EDT Gender: Female Date of : Age: 63 Pre-Arrival Type: EMS ETA: 08/13/2024 09:05:00 EDT Primary Care Physician: Presenting Problem: cp Pre-Arrival User: Silvino Jones Referring Source: Location: [place] Completion Date/Time: 08/13/2024 08:35:00 [facility] Emergency Department Pre-Hospital Report Form ___ Vital Signs: Pre-Hospital Report: Treatment in Route: Response to Treatment: Misc. Issues: Normal [facility] Troponinon 08-13-2024 Troponin HS 6.30 pg/mL Low 10.10-27.10 [facility] Comment on above: Result Comment: The 95% CI (Confidence Interval) PPV (Positive Predictive Value) for myocardial infarction in females is 38 pg/mL, in males 51 pg/mL. The results should be used in conjunction with clinical conditions of myocardial infarction. (Access High Sensitivity Troponin I Instructions For Use, Shivani Margo, June 2018) Performed By: #### 2 [id number] #### [facility] [address] [place] [address] Troponin 0 Hr.on 08-13-2024 Troponin HS 4.60 pg/mL Low 10.10-27.10 [facility] Comment on above: Result Comment: The 95% CI (Confidence Interval) PPV (Positive Predictive Value) for myocardial infarction in females is 38 pg/mL, in males 51 pg/mL. The results should be used in conjunction with clinical conditions of myocardial infarction. (Access High Sensitivity Troponin I Instructions For Use, [employer], June 2018) Performed By: #### 1 [id number] #### [facility] [address] [place] [address] Troponin 1 Hr.on 08-13-2024 Troponin HS 4.70 pg/mL Low 10.10-27.10 [facility] Comment on above: Result Comment: The 95% CI (Confidence Interval) PPV (Positive Predictive Value) for myocardial infarction in females is 38 pg/mL, in males 51 pg/mL. The results should be used in conjunction with clinical conditions of myocardial infarction. (Access High Sensitivity Troponin I Instructions For Use, [employer], June 2018) Performed By: #### 1 [id number] #### [facility] [address] [place] [address] XR Chest Single Viewon 08-13 XR Chest Single View Exam Date/Time: 08/13/2024 09:21 EDT Reason for Exam: Chest pain Report IMPRESSION: NO RADIOGRAPHIC EVIDENCE OF ACUTE INTRATHORACIC PROCESS. EXAM: XR Chest Single View History: Chest pain Technique: Portable AP view of the chest. Comparison: 05/15/2024 Findings: Atherosclerotic calcification of the thoracic aorta. The cardiomediastinal silhouette is within normal limits. No pneumothorax, pleural effusion, or consolidation. Left lung base atelectasis. Hyperinflation of the lungs and increased bronchovascular markings suggesting COPD. No acute osseous abnormality. Ordering Provider: Davey Posada FINAL REPORT Dictated: 08/13/2024 11:43 am Keith Bender DO Signed (Electronic Signature): 08/13/2024 11:43 am Signed by: Keith Bender DO Transcribed by: JEANINE Technologist: LKS Technical Comments Radiation Dose: Ka,r in mGy = na DAP = na Normal [facility] eGFRon 08-13-2024 eGFR 96 mL/min/1.73 m2 Normal >=59 [facility] Comment on above: Performed By: #### 1 [id number] #### [facility] [address] [place] [address] Heart and Vascular Office/Cl inic Noteon 07-04-2024 Heart and Vascular Office/Clinic Note Heart and Vascular Office/Clinic Note Chief Complaint 1 mo f/u hx copd, stemi, cad, htn History of Present Illness Livia is a 63 year old female with past medical hx of COPD, STEMI, CAD and HTN. She is in the office today for a 1 month follow up evaluation. Pt bp is stable in the office today, pt is tolerating the losartan 100 mg. Pt states she has been doing good since last visit. Pt reports that after restarting Ranexa 500 mg BID and losartan 100 mg qD her chest pains have resolved, pt has not had to take nitro since previous visit. Pt reports SOB , she states it comes and goes and is unchanged from previous reports. Pt is compliant with her medications and her vitals are stable at this time. Pt is to restart Effient at this time - not sure why she is not taking it. Pt is having some dental work upcoming so she is okay to continue taking her medications as long as there is no incisions being made in the gums. Simple extractions would be fine to c/w effient and ASA. Pt denies angina or anginal-like symptoms. Patient specifically denies chest pain, palpitations, edema, dizziness, near syncope, or syncope. NOTE FROM 05/30/2024 Pt in office today for INPT fu; Pt states she is still feeling very tired, has chest pain and nausea, and female accompanying her, Karla, states her bp is been through the roof ; Pt bp is elevated in the office today 172/106 and 2nd reading of 180/110; Pt is consistently taking nitro to relieve chest pain which usually resolves it but occasionally it progresses and she has ended up in the ER due to this; Post cath/STEMI pt was taken off of her bp because bp was bottoming out -patient was previously taking losartan 100 mg and amlodipine 5 mg however both previously stopped due to low blood pressures; Pt describes chest pain as a constant ache, and progresses in intensity and pressure; Pt hx of symptoms before STEMI, she describes that she felt lava burning in rectangle shape in her chest, and then began dry heaving; Pt has not been able to take her Ranexa 500 mg due to the pharmacy not being able to fill it due to unknown reason; she should restart that and it was sent into her secondary preferred pharmacy,pt should start Losartan 100 mg qd to start to help bring down her bp and fu in 1 month; Pt states she is also dizzy quite often which is likely due to her unstable bp; EKG in office revealed NSR with non specific T wave abnormality with possible left atrial enlargement which is similar to previous EKG's. Review of Systems PHQ Score Initial Depression Screen Score: 0 SCORE ROS - Provider Constitutional: no fever, no chills, no sweats, no weakness Respiratory: no shortness of breath, no cough Cardiovascular: no chest pain Neuro: no dizziness. no loss of consciousness Cardiac Diagnostics PROCEDURE 07/09/23 Coronary angiography Left ventriculography Hemodynamic measurements of the left ventricle Primary PCI of the left circumflex with MYNOR x1 Findings LMT: Normal left main trunk with bifurcation LAD: Normal caliber with mild irregularity and no stenosis, reaches the apex. LCx: Normal caliber with 99% OM1 lateral stenosis, reaches the lateral wall. RCA: Normal caliber with 100% mid stenosis, dominant, reaches the inferior wall. Collaterals from left to right robust. Hemodynamics: Elevated LVEDP at 27 mmHg with no gradient across the aortic valve. Left ventriculography: Abnormal LV systolic function, EF 45 %, inferolateral hypokinesis wall motion abnormalities and normal chamber size with no mitral regurgitation. PCI note: Successful PCI circumflex OM 1 lateral 99% stenosis ANNITA 2.5 flow reduced to 0% residual ANNITA-3 flow after implantation of a Xience 2.5/15 postdilated 2.75 NC at high pressure. Conclusions: Posterior STEMI secondary to left circumflex status post primary PCI with MYNOR x1. Importance of antiplatelet compliance was emphasized including risk of stent thrombosis or . The patient understands as well as his accompanying family member/friend that the patient may have stent thrombosis or heart attack and the patient agrees. I myself have specifically counseled the patient regarding stent thrombosis risk including and the patient will additionally be counseled by the [facility] team and in follow-up. CAD: DAPT, beta-tamika, statin, risk factor modification. [1] Physical Exam Vitals & Measurements HR: 85(Peripheral) RR: 16 BP: 132/86 SpO2: 93% HT: 61 in HT: 154 cm WT: 75.4 kg WT: 165.88 lb BMI: 31.79 General: alert, no acute distress Cardiovascular: regular rate and rhythm, no murmur normal peripheral perfusion Respiratory: Lungs CTAB, respirations non labored Extremities: no edema left lower extremity. no edema right lower extremity Neurological: oriented x 4, LOC appropriate for age, speech normal Skin: Warm, dry, intact- no rash or concerning lesions Assessment/Plan 1. CAD in [place] artery (I25.10: Atherosclerotic heart disease of [place] coronary artery without angina pectoris) (more content not included)... Normal [facility] Comment on above: Result Comment: Elec tronically Signed By: Amilcar Matthews PA-C\.br\Date and Time Signed: 07/04/24 13:52 EDT\.br\Electronically Co-Signed By: Jewell Salter\.br\Date and Time Co-Signed: 07/04/24 13:30 EDT Ambulatory Visit Summaryon 0 06-14-2024 Ambulatory Visit Summary Ambulatory Visit Summary LIVIA JACOBO :1960 Visit Date:06/12/2024 Ambulatory Visit Instructions Your Diagnosis Encounter for annual wellness exam in Medicare patient Atherosclerosis of aorta COPD (chronic obstructive pulmonary disease) Major depressive disorder, recurrent, mild Anxiety and depression HTN (hypertension), benign Current smoker Breast cancer screening by mammogram Ovarian failure due to menopause Your Care Team Attending Physician - Dorie Luis MD Primary Care Physician - Dorie Luis MD This Is Your Medications List [facility] Prescription (Rosangela Gautam, 5 years.) albuterol (Albuterol (Eqv-ProAir HFA) 90 mcg/inh inhalation aerosol) alprazolam (alprazolam 1 mg Tab) amoxicillin (amoxicillin 500 mg Cap) aspirin (aspirin 81 mg Oral EC Tab) atorvastatin (atorvastatin 80 mg Tab) budesonide/formoter ol/glycopyrrolate (Breztri Aerosphere) carvedilol (carvedilol 6.25 mg Tab) isosorbide mononitrate (isosorbide mononitrate 30 mg ER Tab) lamotrigine (Lamictal 25 mg Tab) losartan (losartan 100 mg Tab) nitroglycerin (nitroglycerin 0.4 mg sublingual Tab) olanzapine (ZyPREXA 5 mg Tab) quetiapine ranolazine (Ranexa 500 mg Tab-ER) ropinirole (ropinirole 1 mg Tab) trazodone (traZODONE 100 mg Tab) venlafaxine (Effexor XR 150 mg Cap-ER) Procedures Performed PCI - Percutaneous coronary intervention (07/09/2023), Angioplasty, Gallbladder, Hysterectomy. Discharge Vitals Heart Rate (Peripheral) 60 Respiratory Rate 16 Blood Pressure 132/60 Height 154 cm Height 61 in Weight 76.8 kg Weight 168.96 lb BMI 32.38 What to do next Scheduled Follow-Up Appointments Tuesday 2:15 PM EDT With: Where: FT Mammography Tuesday 2:30 PM EDT With: Where: [facility] Bone Density Tuesday 1:20 PM EDT With: Where: [address] [address]- 2023 2:30 PM EDT With: Amilcar Matthews PA-C Where: Cardiology Clinic Tuesday 3:30 PM EST With: Dorie Luis MD Where: [address] [address]- Tuesday 2:30 PM EDT With: Where: [address] [address]- You Need to Complete the Following [facility] Bone Density DEXA, 06/20/24, Routine, Order for Future Visit, Transport Mode: Ambulatory, Reason: Menopausal, Reason: E28.39, Ovarian failure due to menopause, No, pp_set_radiology_su bspecialty, Not Required, [place] [facility] [place] Mamm Screen w/CAD if perf and 3D Jason, 06/20/24, Routine, Order for Future Visit, Transport Mode: Ambulatory, Reason: Screening, Reason: screening, No, No, No, Breast cancer screening by mammogram, pp_set_radiology_su bspecialty, Required & Missing, Juan Pablo Cole Medications What How Much When Why Instructions Unchanged albuterol (Albuterol (Eqv-ProAir HFA) 90 mcg/ inh inhalation aerosol) 2 Puffs Inhalation Every 4 hours as needed Unchanged alprazolam (alprazolam 1 mg Tab) 1 Tablets By Mouth 4 times a day as needed for for anxiety Unchanged amoxicillin (amoxicillin 500 mg Cap) 1 Capsules By Mouth Every 12 hours Hospital discharge follow-up Stable angina pectoris Atherosclerosis of aorta Major depressive disorder, recurrent, mild Anxiety and depression COPD (chronic obstructive pulmonary disease) HTN (hypertension), benign BMI 31.0-31.9,adult Class 1 obesity due to excess calories in adult Sinus infection Unchanged aspirin (aspirin 81 mg Oral EC Tab) 1 Tablets By Mouth Every day Unchanged atorvastatin (atorvastatin 80 mg Tab) 1 Tablets By Mouth Every day Unchanged budesonide/ formoterol/ glycopyrrolate (Breztri Aerosphere) 2 Puffs Inhalation 2 times a day Unchanged carvedilol (carvedilol 6.25 mg Tab) 1 Tablets By Mouth 2 times a day Unchanged isosorbide mononitrate (isosorbide mononitrate 30 mg ER Tab) 1 Tablets By Mouth 2 times a day Unchanged lamotrigine (Lamictal 25 mg Tab) 3 Tablets By Mouth Once a day (at bedtime) Unchanged losartan (losartan 100 mg Tab) 1 Tablets By Mouth Every day Unchanged Misc Prescription ([place]iss[place] Gautam, 5 years.) See instructions Anxiety and depression Depression, unspecified HTN (hypertension), benign RLS (restless legs syndrome) Chronic obstructive pulmonary disease, unspecified COPD type Primary insomnia Current smoker Polyneuropathy Walker as ambulation aid Adult BMI 33.0-33.9 kg/sq m Handicap Lotus, 5 years. Unchanged nitroglycerin (nitroglycerin 0.4 mg sublingual Tab) 1 Tablets Sublingual Every 5 minutes as needed for Chest pain Unchanged olanzapine (ZyPREXA 5 mg Tab) 1 Tablets By Mouth Once a day (at bedtime) one tablet at bedtime Unchanged quetiapine 100 Milligram By Mouth Once a day (at bedtime) Unchanged ranolazine (Ranexa 500 mg Tab-ER) (more content not included)... Normal [facility] Medicine Office/Clini c Noteon 06-14-2024 Family Medicine Office/Clinic Note Family Medicine Office/Clinic Note Chief Complaint Subsequent Medicare Wellness Visit History of Present Illness Covid-19, MERS, Ebola Screen *Contact With Person With Highly Contagious Disease Like Ebola/MERS/COVID-19 AND Have One or More of the Symptoms Below : No *Travel to a Country With Wide-Spread Ebola/MERS/COVID-19 in the Past 21 Days AND Have One or More of the Symptoms Below : No Patient Reported Covid-19 Testing : No *Verify Droplet, Contact Precautions for Ebola (Reference for CDC) : N/A *Verify Airborne, Droplet Precautions for MERS/COVID-19 : N/A Erin Chua - 06/12/2024 11:11 EDT Medicare/Medicaid Summary Numeric Rating Pain Score : 8 Erin Chua 06/12/2024 14:02 EDT Chief Complaint : Subsequent Medicare Wellness Visit Patient Counseled : Nutrition, Physical activity, Elevated BMI Height/Length Measured : 154 cm(Converted to: 5 ft 1 in, 60.63 in) Weight Measured : 76.8 kg(Converted to: 169 lb 5 Ounces, 169.315 lb) Body Mass Index Measured : 32.38 kg/m2 Height in Inches : 61 in Weight in Pounds : 168.96 lb Systolic Blood Pressure : 132 mmHg Diastolic Blood Pressure : 60 mmHg Blood Pressure Location : Left arm Blood Pressure Position : Sitting O2 Sat Resting/Exertion Alpha : Resting Peripheral Pulse Rate : 60 bpm Respiratory Rate : 16 br/min Oxygen Flow Rate : 92 L/min Pain Present : Yes actual or suspected pain Numeric Rating Pain Scale : 8 Primary Pain Location : Back Erin Chua 06/12/2024 11:11 EDT Hearing and Vision Screening FT FT Whisper Test Comments : no deficits Vision Screen Comments : wears corretive lens. [facility]. Erin Chua 06/12/2024 11:11 EDT Advance Directive FT Advance Directive : Yes Type of Advance Directive : Living will, Medical durable power of regulatory attorney Location of Advance Directive : Family to bring in copy from home Organ Donation Consent : No Erin Chua - 06/12/2024 11:11 EDT Procedures / Surgeries FT - Procedure History (As Of: 06/12/2024 14:08:49 EDT) Anesthesia Minutes: 0 ; Procedure Name: Total Abdominal Hysterectomy ; Procedure Minutes: 0 ; Comments: 06/13/2023 11:47 EDT - Jerardo Miguel R Total abdominal hysterectomy ; Last Reviewed Dt/Tm: 06/12/2024 14:02:56 EDT Anesthesia Minutes: 0 ; Procedure Name: Gallbladder ; Procedure Minutes: 0 ; Comments: 02/10/2023 11:31 EDT - Merly Moralez MA surgery ; Last Reviewed Dt/Tm: 06/12/2024 14:02:56 EDT Procedure Dt/Tm: 07/09/2023 ; Provider: Sheila POSEY, Tiffany Chavarria; Anesthesia Minutes: 0 ; Procedure Name: PCI - Percutaneous coronary intervention ; Procedure Minutes: 0 ; Last Reviewed Dt/Tm: 06/12/2024 14:02:56 EDT Anesthesia Minutes: 0 ; Procedure Name: Angioplasty ; Procedure Minutes: 0 ; Comments: 07/13/2023 15:50 EDT - Mark ARCHITECTURAL MODELER, Diana L stent placement ; Last Reviewed Dt/Tm: 06/12/2024 14:02:56 EDT Family History Family History (As Of: 06/12/2024 14:08:49 EDT) Negative History Medicare/Medicaid Social History FT Social History (As Of: 06/12/2024 14:08:49 EDT) Alcohol: Denies Alcohol Use Household alcohol concerns: No. Comments: 06/12/2024 11:15 - Erin Chua: denies use (Last Updated: 06/12/2024 11:15:20 EDT by Erin Chua) Tobacco: 10 or more cigarettes (1/2 pack or more)/day in last 30 days Tobacco Use:. Never Smokeless Tobacco Use:. Cigarettes, Started age 18.0 Years. Previous treatment: Nicotine replacement. Ready to change: No. Household tobacco concerns: No. Yes Comments: 06/12/2024 11:15 - Erin Chua: 1/2 pack or more a day. (Last Updated: 06/12/2024 11:16:12 EDT by Erin Chua) Substance Abuse: Denies Substance Abuse Comments: 06/12/2024 11:15 - Erin Chua: denies use (Last Updated: 06/12/2024 11:15:53 EDT by Erin Chua) Cessation FT Smoking Cessation : Yes Readiness to Quit : Not motivated to quit Interventions for Those Unwilling to Quit : Benefits obtained from quitting discussed Erin Chua - 06/12/2024 11:11 EDT Health Risk Assessment FT HRA little interest or pleasure? : Yes HRA down, depressed, or hopeless? : Yes Hazards in your house? : Yes Fall Risk Past Year : Yes Worried About Falling : Yes Use a Cane or Walker? : No Someone Helps You in the Morning : No Fallen or felt dizzy standing up? : Yes Assistance with personal care? : No Trouble taking meds correctly? : No HRA Pain Present : Yes Primary Pain Location : Back Numeric Rating Pain Scale : 8 Numeric Rating Pain Score : 8 Able to walk without help? : Yes Ability to shop w/out help : Yes Prepare your own meals? : Yes Housework without help? : Yes Handle money without help : Yes Track own medications without help? : Yes Overall mood for past four weeks : Good and bad parts about equal General health rating : Fair Someone avail. to help if needed? : Yes, as much as I wanted Phys. & emotional health limit social act? : Moderately Erin Chua - 06/12/2024 14:02 EDT [facility] Trouble ea (more content not included)... Normal [facility] Comment on above: Result Comment: Elec tronically Signed By: Dorie Luis MD\.br\Date and Time Signed: 06/14/24 13:58 EDT\.br\Electronically Co-Signed By: Erin Chua\.br\Date and Time Co-Signed: 06/13/24 10:13 EDT Heart and Vascular Office/Cl inic Noteon 05-30-2024 Heart and Vascular Office/Clinic Note Heart and Vascular Office/Clinic Note Chief Complaint Inpatient F/U History of Present Illness Livia is a 63 year olf female with past medical hx of COPD, STEMI, CAD and HTN Pt in office today for INPT fu; Pt states she is still feeling very tired, has chest pain and nausea, and female accompanying her, Karla, states her bp is been through the roof ; Pt bp is elevated in the office today 172/106 and 2nd reading of 180/110; Pt is consistently taking nitro to relieve chest pain which usually resolves it but occasionally it progresses and she has ended up in the ER due to this; Post cath/STEMI pt was taken off of her bp because bp was bottoming out -patient was previously taking losartan 100 mg and amlodipine 5 mg however both previously stopped due to low blood pressures; Pt describes chest pain as a constant ache, and progresses in intensity and pressure; Pt hx of symptoms before STEMI, she describes that she felt lava burning in rectangle shape in her chest, and then began dry heaving; Pt has not been able to take her Ranexa 500 mg due to the pharmacy not being able to fill it due to unknown reason; she should restart that and it was sent into her secondary preferred pharmacy,pt should start Losartan 100 mg qd to start to help bring down her bp and fu in 1 month; Pt states she is also dizzy quite often which is likely due to her unstable bp; EKG in office revealed NSR with non specific T wave abnormality with possible left atrial enlargement which is similar to previous EKG's. NOTE FROM 01/06/24 The patient reports persistent episodes of dizziness but with a 35 to 40% improvement. She experiences chest pain and tightness every other day, but these episodes are brief. She has not needed to take nitroglycerin. Periods of fatigue are also reported. hx of SOB while on Brillinta NOTE FROM Post PCI 10/13/23 .CAD with known CUSTOM FURRIER of RCA. I was unable to cross CUSTOM FURRIER. We are sending her to Dr. Fofana. She has an appointment with him, and there is a plan for this to be done. She is on dual-antiplatelet therapy. She is on isosorbide and Ranexa already, controlling her angina. Review of Systems PHQ Score Initial Depression Screen Score: 0 SCORE ROS - Provider Constitutional: no fever, no chills, no sweats, no weakness Respiratory: no shortness of breath, no cough Cardiovascular: yes chest pain Neuro: yes dizziness. no loss of consciousness Cardiac Diagnostics EKG 05/15/24 SINUS RHYTHM WITH SHORT AK INTERVAL MODERATE ST DEPRESSION [0.05+ mV ST DEPRESSION] Rate 86 bpm PROCEDURE 07/09/23 Coronary angiography Left ventriculography Hemodynamic measurements of the left ventricle Primary PCI of the left circumflex with MYNOR x1 Findings LMT: Normal left main trunk with bifurcation LAD: Normal caliber with mild irregularity and no stenosis, reaches the apex. LCx: Normal caliber with 99% OM1 lateral stenosis, reaches the lateral wall. RCA: Normal caliber with 100% mid stenosis, dominant, reaches the inferior wall. Collaterals from left to right robust. Hemodynamics: Elevated LVEDP at 27 mmHg with no gradient across the aortic valve. Left ventriculography: Abnormal LV systolic function, EF 45 %, inferolateral hypokinesis wall motion abnormalities and normal chamber size with no mitral regurgitation. PCI note: Successful PCI circumflex OM 1 lateral 99% stenosis ANNITA 2.5 flow reduced to 0% residual ANNITA-3 flow after implantation of a Xience 2.5/15 postdilated 2.75 NC at high pressure. Conclusions: Posterior STEMI secondary to left circumflex status post primary PCI with MYNOR x1. Importance of antiplatelet compliance was emphasized including risk of stent thrombosis or . The patient understands as well as his accompanying family member/friend that the patient may have stent thrombosis or heart attack and the patient agrees. I myself have specifically counseled the patient regarding stent thrombosis risk including and the patient will additionally be counseled by the [facility] team and in follow-up. CAD: DAPT, beta-tamika, statin, risk factor modification. [1] Physical Exam Vitals & Measurements HR: 81(Peripheral) RR: 20 BP: 172/106 SpO2: 92% HT: 61 in HT: 154 cm WT: 72.6 kg WT: 159.72 lb BMI: 30.61 General: alert, no acute distress Cardiovascular: regular rate and rhythm, no murmur normal peripheral perfusion Respiratory: Lungs CTAB, respirations non labored Extremities: no edema left lower extremity. no edema right lower extremity Neurological: oriented x 4, LOC appropriate for age, speech normal Skin: Warm, dry, intact- no rash or concerning lesions Assessment/Plan 1. Angina pectoris (I20.9: Angina pectoris, unspecified) Pt is currently having chest pain and pressure, nausea and dizziness; Pt bp is elevated in the office today 172/106 and 2nd reading of 180/110; Pt has not been able to take her Ranexa 500 mg due to the pharmacy not being able to fill it due to unknown reason (was sent in February from our office). Pt should (more content not included)... Normal [facility] Comment on above: Result Comment: Elec tronically Signed By: Amilcar Matthews PA-C\.br\Date and Time Signed: 05/30/24 14:39 EDT\.br\Electronically Co-Signed By: Jewell Salter\.br\Date and Time Co-Signed: 05/30/24 14:12 EDT Ambulatory Visit Summaryon 0 05-29-2024 Ambulatory Visit Summary Ambulatory Visit Summary LIVIA JACOBO :1960 Visit Date:05/29/2024 Ambulatory Visit Instructions Your Diagnosis Atherosclerosis of aorta Major depressive disorder, recurrent, mild Anxiety and depression COPD (chronic obstructive pulmonary disease) HTN (hypertension), benign Polyneuropathy Primary insomnia Hospital discharge follow-up BMI 31.0-31.9,adult Class 1 obesity due to excess calories in adult Former smoker Stable angina pectoris Depression, unspecified Your Care Team Attending Physician - Dorie Luis MD Primary Care Physician - Dorie Luis MD. This Is Your Medications List Contact prescribing physician if questions or concerns Misc Prescription (Rosangela Gautam, 5 years.) albuterol (Albuterol (Eqv-ProAir HFA) 90 mcg/inh inhalation aerosol) alprazolam (alprazolam 1 mg Tab) aspirin (aspirin 81 mg Oral EC Tab) atorvastatin (atorvastatin 80 mg Tab) budesonide/formoter ol/glycopyrrolate (Breztri Aerosphere) carvedilol (carvedilol 6.25 mg Tab) isosorbide mononitrate (isosorbide mononitrate 30 mg ER Tab) lamotrigine (Lamictal 25 mg Tab) nitroglycerin (nitroglycerin 0.4 mg sublingual Tab) olanzapine (ZyPREXA 5 mg Tab) quetiapine ranolazine (Ranexa 500 mg Tab-ER) ropinirole (ropinirole 1 mg Tab) trazodone (traZODONE 100 mg Tab) venlafaxine (Effexor XR 150 mg Cap-ER) Procedures Performed PCI - Percutaneous coronary intervention (07/09/2023), Angioplasty, Gallbladder, Hysterectomy. Discharge Vitals Temperature (Oral) 36.7 ?C Heart Rate (Peripheral) 72 Respiratory Rate 16 Blood Pressure 122/80 Height 154 cm Height 61 in Weight 74.9 kg Weight 164.78 lb BMI 31.58 What to do next Scheduled Follow-Up Appointments Tuesday 10:30 AM EDT With: Amilcar Matthews PA-C Where: Cardiology Clinic Tuesday 11:00 AM EDT With: Where: [facility] Medicine [place] Normal [address] [id number]- \.br\ Medications\.br\ What How Much When Why Instructions\.br\ Unchanged albuterol (Albuterol (Eqv-ProAir HFA) 90 mcg/ inh inhalation aerosol) 2 Puffs Inhalation Every 4 hours as needed Contact prescribing physician if questions or concerns \.br\ Unchanged alprazolam (alprazolam 1 mg Tab) 1 Tablets By Mouth 4 times a day as needed for for anxiety Contact prescribing physician if questions or concerns \.br\ Unchanged aspirin (aspirin 81 mg Oral EC Tab) 1 Tablets By Mouth Every day Contact prescribing physician if questions or concerns \.br\ Unchanged atorvastatin (atorvastatin 80 mg Tab) 1 Tablets By Mouth Every day Contact prescribing physician if questions or concerns \.br\ Unchanged budesonide/ formoterol/ glycopyrrolate (Breztri Aerosphere) 2 Puffs Inhalation 2 times a day Contact prescribing physician if questions or concerns \.br\ Unchanged carvedilol (carvedilol 6.25 mg Tab) 1 Tablets By Mouth 2 times a day Contact prescribing physician if questions or concerns \.br\ Unchanged isosorbide mononitrate (isosorbide mononitrate 30 mg ER Tab) 1 Tablets By Mouth 2 times a day Contact prescribing physician if questions or concerns \.br\ Unchanged lamotrigine (Lamictal 25 mg Tab) 3 Tablets By Mouth Once a day (at bedtime) Contact prescribing physician if questions or concerns \.br\ Unchanged Misc Prescription (Handicap Placard, 5 years.) See instructions Anxiety and depression Depression, unspecified HTN (hypertension), benign RLS (restless legs syndrome) Chronic obstructive pulmonary disease, unspecified COPD type Primary insomnia Current smoker Polyneuropathy Walker as ambulation aid Adult BMI 33.0-33.9 kg/sq m Handicap Lotus, 5 years. Contact prescribing physician if questions or concerns \.br\ Unchanged nitroglycerin (nitroglycerin 0.4 mg sublingual Tab) 1 Tablets Sublingual Every 5 minutes as needed for Chest pain Contact prescribing physician if questions or concerns \.br\ Unchanged olanzapine (ZyPREXA 5 mg Tab) 1 Tablets By Mouth Once a day (at bedtime) one tablet at bedtime Contact prescribing physician if questions or concerns \.br\ Unchanged quetiapine 100 Milligram By Mouth Once a day (at bedtime) Contact prescribing physician if questions or concerns \.br\ Unchanged ranolazine (Ranexa 500 mg Tab-ER) 1 Tablets By Mouth 2 times a day Contact prescribing physician if questions or concerns \.br\ Unchanged ropinirole (ropinirole 1 mg Tab) 1 Tablets By Mouth Every day Contact prescribing physician if questions or concerns \.br\ Unchanged trazodone (traZODONE 100 mg Tab) 3 Tablets By Mouth Once a day (at bedtime) Contact prescribing physician if questions or concerns \.br\ Unchanged venlafaxine (Effexor XR 150 mg Cap-ER) 2 Capsules By Mouth Once a day (at bedtime) Contact prescribing physician if questions or concerns \.br\ Allergies\.br\ BuSpar (Migraine, Unknown)\.br\ sulfa drugs (Rash)\.br\ Lyrica (Feels drunk, falls down)\.br\ Nicotine Patch (Rash)\.br\ Tape (Sensitive)\.br\ sulfamethoxazole (Unknown (origin))\.br\ Problems\.br\ Ongoing - Any problem that you are currently receiving treatment for.\.br\ Anxiety and depression\.br\ Atherosclerosis of aorta\.br\ COPD (chronic obstructive pulmonary disease)\.br\ Current smoker\.br\ Fatigue\.br\ History of ST elevation myocardial infarction (STEMI)\.br\ History of total abdominal hysterectomy\.br\ HTN (hypertension), benign\.br\ Major depressive disorder, recurrent, mild\.br\ Polyneuropathy\.br \ Primary insomnia\.br\ RLS (restless legs syndrome)\.br\ Walker as ambulation aid\.br\ Historical - Any problem that you are no longer receiving treatment for.\.br\ Acute ST elevation myocardial infarction (STEMI)\.br\ Patient Survey\.br\ You may receive a survey via text or e-mail asking about your office visit. Please share your experience with us by completing your survey. We appreciate your feedback and thank you for choosing us for your care.\.br\ \.br\ [facility] Medicine Office/Clini c Noteon 05-29-2024 Family Medicine Office/Clinic Note Family Medicine Office/Clinic Note HPI Staff Livia is a 63 year old female presenting for hospital follow up TCM: Hospital: [facility] Admission date: 05/15/24 Discharge date: 05/16/24 Symptoms the patient presented with: chest pain, shortness of breath watched her BP while there as it was really high Current concerns: none History of Present Illness See staff HPI. Review of Systems PHQ Score Initial Depression Screen Score: 3 SCORE Detailed Depression Screen Score: 7 Total Depression Screen Score: 10 Physical Exam Vitals & Measurements T: 36.7 ?C(Oral) HR: 72(Peripheral) RR: 16 BP: 122/80 SpO2: 95% HT: 61 in HT: 154 cm WT: 74.9 kg WT: 164.78 lb BMI: 31.58 General: alert, no acute distress ENMT: oral mucosa moist, Cardiovascular: regular rate and rhythm, normal peripheral perfusion Respiratory: Lungs CTA, respirations non labored Extremities: no deformity, no trauma Neurological: oriented x 4, LOC appropriate for age, CN II-XII intact, motor strength equal & normal bilaterally, speech normal Abdomen: Soft, Nontender, Non-distended, + BS Assessment/Plan 1. Hospital discharge follow-up (Z09: Encounter for follow-up examination after completed treatment for conditions other than malignant neoplasm) - Reviewed D/C summer. - Bp is WNL - Still having CP - Pt states cardio follow up is tomorrow Ordered: amoxicillin, 500 mg = 1 cap(s), Oral, q12hr, # 20 cap(s), Refills(s) 0, Pharmacy: [facility], 154, cm, 05/29/24 15:16:00 EDT, Height/Length Dosing, 74.9, kg, 05/29/24 15:16:00 EDT, Weight Dosing [facility] 14 day disch 71004 2. Stable angina pectoris (I20.89: Other forms of angina pectoris) - Stable at this time. - Follow up with Cardio Ordered: amoxicillin, 500 mg = 1 cap(s), Oral, q12hr, # 20 cap(s), Refills(s) 0, Pharmacy: [facility], 154, cm, 05/29/24 15:16:00 EDT, Height/Length Dosing, 74.9, kg, 05/29/24 15:16:00 EDT, Weight Dosing TCM [facility] 14 day disch [address]22 3. Atherosclerosis of aorta (I70.0: Atherosclerosis of aorta) - NO issues at this time Ordered: amoxicillin, 500 mg = 1 cap(s), Oral, q12hr, # 20 cap(s), Refills(s) 0, Pharmacy: [facility], 154, cm, 05/29/24 15:16:00 EDT, Height/Length Dosing, 74.9, kg, 05/29/24 15:16:00 EDT, Weight Dosing Body Mass Index (BMI) documented 3008F Current tobacco non-user 1036F Depression Screening Negative 3352F Influenza immunization administered or previously received 4274F Most recent diastolic blood pressure 80-89 mm Hg 3079F Systolic BP <130 mm Hg (Most Recent) 3074F [facility] 14 day disch [id number] 4. Major depressive disorder, recurrent, mild (F33.0: Major depressive disorder, recurrent, mild) - Stable - Sees Psych Ordered: amoxicillin, 500 mg = 1 cap(s), Oral, q12hr, # 20 cap(s), Refills(s) 0, Pharmacy: [facility], 154, cm, 05/29/24 15:16:00 EDT, Height/Length Dosing, 74.9, kg, 05/29/24 15:16:00 EDT, Weight Dosing Body Mass Index (BMI) documented 3008F Current tobacco non-user 1036F Depression Screening Negative 3352F Influenza immunization administered or previously received 4274F Most recent diastolic blood pressure 80-89 mm Hg 3079F Systolic BP <130 mm Hg (Most Recent) 3074F [facility] 14 day disch 69292 5. Anxiety and depression (F41.9: Anxiety disorder, unspecified) - As above Ordered: amoxicillin, 500 mg = 1 cap(s), Oral, q12hr, # 20 cap(s), Refills(s) 0, Pharmacy: [facility], 154, cm, 05/29/24 15:16:00 EDT, Height/Length Dosing, 74.9, kg, 05/29/24 15:16:00 EDT, Weight Dosing Body Mass Index (BMI) documented 3008F Current tobacco non-user 1036F Depression Screening Negative 3352F Influenza immunization administered or previously received 4274F Most recent diastolic blood pressure 80-89 mm Hg 3079F Systolic BP <130 mm Hg (Most Recent) 3074F [facility] 14 day disch 11791 6. COPD (chronic obstructive pulmonary disease) (J44.9: Chronic obstructive pulmonary disease, unspecified) - Please stop smoking Ordered: amoxicillin, 500 mg = 1 cap(s), Oral, q12hr, # 20 cap(s), Refills(s) 0, Pharmacy: [facility], 154, cm, 05/29/24 15:16:00 EDT, Height/Length Dosing, 74.9, kg, 05/29/24 15:16:00 EDT, Weight Dosing Body Mass Index (BMI) documented 3008F Current tobacco non-user 1036F Depression Screening Negative 3352F Influenza immunization administered or previously received 4274F Most recent diastolic blood pressure 80-89 mm Hg 3079F Systolic BP <130 mm Hg (Most Recent) 3074F [facility] 14 day disch 12281 7. HTN (hypertension), benign (I10: Essential (primary) hypertension) - At goal at this time. - Follow up in 1 month Ordered: amoxicillin, 500 mg = 1 cap(s), Oral, q12hr, # 20 cap(s), Refills(s) 0, Pharmacy: [facility], 154, cm, 05/29/24 15:16:00 EDT, Height/Length Dosing, 74.9, kg, 05/29/24 15:16:00 EDT, Weight Dosing Body Mass Index (BMI) documented 3008F Current (more content not included)... Normal [facility] Comment on above: Result Comment: Elec tronically Signed By: Fidencio POSEY, Dorie Polk.br\Date and Time Signed: 05/29/24 15:51 EDT Provider Letteron 05-21-2024 Provider Letter Provider Letter May 21, 2024 [place] [address] LIVIA JACOBO 1960 Dear Livia, We have been trying to reach you with no success. It is important that you return our call regarding your recent hospital discharge upon receiving this letter. Also, at the time of your call, please provide us with your current information Thank you for your prompt attention to this matter. Sincerely, Miguel Salazar RN, [employer] [phone] [facility] CHEMISTRYOrdered By: SYSTEM SYSTEM on 05-16-2024 Cholesterol [Mass/Vol] 129 mg/dL Normal 120 - 200 mg/dL [facility] Cholesterol in HDL [Mass/Vol] 47 mg/dL Invalid Interpretation Code [facility] Comment on above: Result Comment: '>= 60 LOW RISK' '<= 40 HIGH RISK' Cholesterol in LDL [Mass/Vol] 75 mg/dL Normal <=129mg/dL [facility] Cholesterol in VLDL [Mass/Vol] 9 mg/dL Normal 7 - 40 mg/dL [facility] Triglyceride [Mass/Vol] 44 mg/dL Normal <=149mg/dL [facility] Inpatient Clinical Summaryon 05-16-2024 Inpatient Clinical Summary Inpatient Clinical Summary [place] [address] Clinical Summary Person Information: Name: LIVIA JACOBO Age: 63 Years : 1960 Sex: Female PCP: Dorie Luis MD Marital Status: Race: White Ethnicity: Non- or Language: Slovenian Visit Id: Visit Reason: Shortness of breath; Chest pain; CHEST PAIN Speciality: Acuity: Enc Type: Observation Med Service: Medical Arrival: 05/15/2024 13:15:09 Discharge: Dispo Type: Admitted as IP to this Hosp Address: [address] [place] [id number] Provider Notes: Diagnosis: 1:Chest pain; 2:Dizziness; 3:HTN (hypertension), benign; 4:RLS (restless legs syndrome); 5:COPD (chronic obstructive pulmonary disease); 6:CAD (coronary artery disease); 7:History of ST elevation myocardial infarction (STEMI); 8:Tobacco dependence; 9:Obese; 10:On deep vein thrombosis (DVT) prophylaxis Problems Active Fatigue History of ST elevation myocardial infarction (STEMI) Atherosclerosis of aorta Major depressive disorder, recurrent, mild History of total abdominal hysterectomy Walker as ambulation aid Polyneuropathy (02/10/2023) COPD (chronic obstructive pulmonary disease) (09/15/2022) Anxiety and depression (09/13/2022) HTN (hypertension), benign (09/13/2022) Primary insomnia (09/13/2022) RLS (restless legs syndrome) (09/13/2022) Current smoker (09/13/2022) Smoking Status: Current Every Day Smoker Functional Status: Sensory Deficits: History of Falls: Mobility Assistance Prior to Admission: ADLs: Independent Current Level of Assistance for Self-Care/Mobility: Cognitive Status: Oriented x 3 Allergies BuSpar (Migraine) (Unknown) Lyrica (Feels drunk, falls down) sulfamethoxazole (Unknown (origin)) Tape (Sensitive) sulfa drugs (Rash) Nicotine Patch (Rash) Measurements: Height: 160.02 cm Weight: 72.8 kg Blood Pressure: 137 mmHg / 81 mmHg BMI: 28.9 kg/m2 Procedures No Procedures Documented Immunizations No Immunizations Documented This Visit Final Med List: albuterol (Albuterol (Eqv-ProAir HFA) 90 mcg/inh inhalation aerosol) 2 Puffs Inhalation every 4 hours. as needed. alprazolam (alprazolam 1 mg Tab) 1 Tablets By Mouth 4 times a day as needed for anxiety. aspirin (aspirin 81 mg Oral EC Tab) 1 Tablets By Mouth every day. atorvastatin (atorvastatin 80 mg Tab) 1 Tablets By Mouth every day. Refills: 5. budesonide/formoter ol/glycopyrrolate (Breztri Aerosphere) 2 Puffs Inhalation 2 times a day. carvedilol (carvedilol 6.25 mg Tab) 1 Tablets By Mouth 2 times a day. Refills: 3. fluticasone/umeclid inium/vilanterol (Trelegy Ellipta 100 mcg-62.5 mcg-25 mcg inhalation powder) 1 Puffs Inhalation every day. isosorbide mononitrate (isosorbide mononitrate 30 mg ER Tab) 1 Tablets By Mouth 2 times a day. Refills: 6. lamotrigine (Lamictal 25 mg Tab) 3 Tablets By Mouth once a day (at bedtime). [facility] (Handicap Placard, 5 years.) Handicap Placard, 5 years.. Refills: 0. nitroglycerin (nitroglycerin 0.4 mg sublingual Tab) 1 Tablets Sublingual every 5 minutes as needed Chest pain. Refills: 6. olanzapine (ZyPREXA 5 mg Tab) 1 Tablets By Mouth once a day (at bedtime). one tablet at bedtime. quetiapine 100 Milligram By Mouth once a day (at bedtime). ranolazine (Ranexa 500 mg Tab-ER) 1 Tablets By Mouth 2 times a day. Refills: 5. ropinirole (ropinirole 1 mg Tab) 1 Tablets By Mouth every day. Refills: 1. trazodone (traZODONE 100 mg Tab) 3 Tablets By Mouth once a day (at bedtime). venlafaxine (Effexor XR 150 mg Cap-ER) 2 Capsules By Mouth once a day (at bedtime). Care Team Members: Attending Physician: TARA POSEY, Ephraim Consulting Physician: [facility] Cardio, XXXX Referring Physician: Follow up: With: Address: When: Tiffany Jansen [address] [place] [id number] [facility] (1) 06/13/2024 9:15 AM Comments: Will be seeing Amilcar EMMANUEL at this appointment With: Address: When: Dorie Luis 05/28/2024 3:00 PM Type Location Start [facility] Follow Up w/TCM [facility] 05/28/2024 3:00 PM 05/28/2024 3:30 PM Confirmed Medicare Wellness Subsequent [facility] 06/12/2024 11:00 AM 06/12/2024 12:00 PM Confirmed Cardiology Follow Up (FT) [facility] 06/13/2024 9:15 AM 06/13/2024 9:30 AM Confirmed Patient Education Information: Nonspecific Chest Pain, Adult, [id number] Normal [facility] Inpatient Patient Summaryon 05-16-2024 Inpatient Patient Summary Inpatient Patient Summary [address] [address] Patient Discharge Instructions PERSON INFORMATION Name: LIVIA JACOBO Date of : 1960 Current Date: 05/16/2024 13:15:26 PHYSICIANS Admitting Physician: TARA POSEY, [facility] Primary Care Physician: Dorie Luis MD PCP Comment: Discharge Diagnosis: 1:Chest pain; 2:Dizziness; 3:HTN (hypertension), benign; 4:RLS (restless legs syndrome); 5:COPD (chronic obstructive pulmonary disease); 6:CAD (coronary artery disease); 7:History of ST elevation myocardial infarction (STEMI); 8:Tobacco dependence; 9:Obese; 10:On deep vein thrombosis (DVT) prophylaxis Condition at Discharge: Improved LIVIA JACOBO has been given the following list of follow-up instructions, prescriptions, and patient education materials: PATIENT FOLLOW-UP INFORMATION Diet: Low Sodium- 2000 mg Discharge Activity: Ambulate as tolerated, Activity as tolerated Discharge Restrictions: Wound Care Instructions: Remove Your Dressing In Days Call Your Doctor For: IF UNABLE TO CONTACT YOUR PHYSICIAN AND YOU FEEL IT IS AN EMERGENCY, GO TO THE NEAREST EMERGENCY ROOM OR CALL 911 Home Treatment: Devices/Equipment: Walker - front wheeled Special Services: Additional Instructions: Primary Care Physician to provide the following pending test results: None Follow up: With: Address: When: Tiffany Jansen [address] [place] [phone] [facility] (1) Within 2 to 4 weeks Comments: Call for followup appointment With: Address: When: Dorie Luis Within 3 to 5 days Comments: Call for followup appointment In the event that this physician does not participate in your insurance network, please consult with your insurance company to find a nearby participating provider. Type Location [facility] Medicare Wellness Subsequent [facility] 06/12/2024 11:00 AM 06/12/2024 12:00 PM Confirmed Comment: DONNELL Green ALICE, have received the attached patient education materials/instructi ons and have verbalized understanding: Patient Signature Date Clinican/Nurse Signature Date HERE ARE THE MEDICATION CHANGES THAT OCCURRED DURING YOUR HOSPITAL STAY Medications to Continue Taking That Have Changed Medicine [facility] [address] [place], [place] [id number], [phone] START: carvedilol (carvedilol 6.25 mg Tab) 1 Tablets By Mouth 2 times a day. Refills: 3. Last Dose: Next Dose: STOP: carvedilol (Coreg 3.125 mg Tab) 1 Tablets By Mouth 2 times a day. Refills: 3. START: isosorbide mononitrate (isosorbide mononitrate 30 mg ER Tab) 1 Tablets By Mouth 2 times a day. Refills: 6. Last Dose: Next Dose: STOP: isosorbide mononitrate (isosorbide mononitrate 30 mg ER Tab) 1 Tablets By Mouth every day for 30 Days. Refills: 6. Medications to Continue with No Changes Medicine [facility] [address] [facility], [place] [id number], [phone] nitroglycerin (nitroglycerin 0.4 mg sublingual Tab) 1 Tablets Sublingual every 5 minutes as needed Chest pain. Refills: 6. Last Dose: Next Dose: Other Medications albuterol (Albuterol (Eqv-ProAir HFA) 90 mcg/inh inhalation aerosol) 2 Puffs Inhalation every 4 hours. as needed. Last Dose: Next Dose: alprazolam (alprazolam 1 mg Tab) 1 Tablets By Mouth 4 times a day as needed for anxiety. Last Dose: Next Dose: aspirin (aspirin 81 mg Oral EC Tab) 1 Tablets By Mouth every day. Last Dose: Next Dose: atorvastatin (atorvastatin 80 mg Tab) 1 Tablets By Mouth every day. Refills: 5. Last Dose: Next Dose: budesonide/formoter ol/glycopyrrolate (Breztri Aerosphere) 2 Puffs Inhalation 2 times a day. Last Dose: Next Dose: fluticasone/umeclid inium/vilanterol (Trelegy Ellipta 100 mcg-62.5 mcg-25 mcg inhalation powder) 1 Puffs Inhalation every day. Last Dose: Next Dose: lamotrigine (Lamictal 25 mg Tab) 3 Tablets By Mouth once a day (at bedtime). Last Dose: Next Dose: Misc Prescription (Handicap Placard, 5 years.) Handicap Placard, 5 years.. Refills: 0. Last Dose: Next Dose: olanzapine (ZyPREXA 5 mg Tab) 1 Tablets By Mouth once a day (at bedtime). one tablet at bedtime. Last Dose: Next Dose: quetiapine 100 Milligram By Mouth once a day (at bedtime). Last Dose: Next Dose: ranolazi (more content not included)... [facility] Interdisciplinary Note - Layo e Manageron 05-16-2024 Interdisciplinary Note - Court Deputy Interdisciplinary Note - Court Deputy CRM to room to discuss DC planning. Patient is awake, alert and oriented. Patient is from home and will have a ride at DC. Patient verified PCP, DME and insurance. Patient is an observation for CP. Patient is assigned to Dr Ross, see notes. Patient is awaiting cardiology and recs. Patient is a possible DC today if cardio clears. Patient declined needs at DC for DME, HH or PM. Patient was provided CRM contact, white board updated. CRM following [facility] Comment on above: Result Comment: Elec tronically Signed By: Shikha Morales\.br\Date and Time Signed: 05/16/24 10:42 EDT Interdisciplinary Note - Soc ial Workeron 05-16-2024 Interdisciplinary Note - Lineman A Class Interdisciplinary Note - Lineman A Class There was a system generated request to review Advance Directives. SW spoke with Livia and was encouraged her to bring in copies from home to scan. Her health care POA is Shikha Nolen's [phone]. [facility] Interdisciplinary Note - Lineman A Class Interdisciplinary Note - Lineman A Class There was a system generated request to review Advance Directives. SW spoke with Livia and was encouraged to bring in copies to scan. She shared that here health care POA is [place] [phone]. Normal [facility] Lipid Panelon 05-16-2024 Cholesterol [Mass/Vol] 129 mg/dL Normal 120-200 [facility] Comment on above: Performed By: #### 2 [id number] #### [facility] [address] [place] [address] Cholesterol in HDL [Mass/Vol] 47 mg/dL Invalid Interpretation Code [facility] Comment on above: Result Comment: '>= 60 LOW RISK' '<= 40 HIGH RISK' Performed By: #### 2 [id number] #### [facility] [address] [place] [address] Cholesterol in LDL [Mass/Vol] 75 mg/dL Normal <=129 [facility] Comment on above: Performed By: #### 2 [id number] #### [facility] [address] [place] [address] Cholesterol in VLDL [Mass/Vol] 9 mg/dL Normal 7-40 [facility] Comment on above: Performed By: #### 2 [id number] #### [facility] [address] [place] [address] Triglyceride [Mass/Vol] 44 mg/dL Normal <=149 [facility] Comment on above: Performed By: #### 2 [id number] #### [facility] [address] [place] [address] BMPon 05-15-2024 Anion gap [Moles/Vol] 11 mmol/L Normal 6-16 [facility] Comment on above: Performed By: #### 2 [id number] #### [facility] [address] [place] [address] Calcium [Mass/Vol] 9.1 mg/dL Normal 8.9-11.1 [facility] Comment on above: Performed By: #### 2 [id number] #### [facility] [address] [place] [address] Chloride [Moles/Vol] 106 mmol/L Normal 101-111 [facility] Comment on above: Performed By: #### 2 [id number] #### [facility] [address] [place] [address] CO2 [Moles/Vol] 27 mmol/L Normal 21-31 [facility] Comment on above: Performed By: #### 2 448130 #### [facility] [address] [place] [address] Creatinine [Mass/Vol] 0.5 mg/dL Normal 0.5-1.3 [facility] Comment on above: Performed By: #### 2 310105 #### [facility] [address] [place] [address] Glucose [Mass/Vol] 100 mg/dL Normal 55-199 [facility] Comment on above: Performed By: #### 2 821990 #### [facility] [address] [place] [address] Potassium [Moles/Vol] 3.7 mmol/L Normal 3.5-5.3 [facility] Comment on above: Performed By: #### 2 057215 #### [facility] [address] [place] [address] Sodium [Moles/Vol] 140 mmol/L Normal 135-145 [facility] Comment on above: Performed By: #### 2 129578 #### [facility] [address] [place] [address] Urea nitrogen [Mass/Vol] 11 mg/dL Normal 5-21 [facility] Comment on above: Performed By: #### 2 455389 #### [facility] [address] [place] [address] Urea nitrogen/Creatinine [Mass ratio] 22 No Units High 10-20 [facility] Comment on above: Performed By: #### 2 477448 #### [facility] [address] [place] [address] CBC w/ Auto Diffon 4 Basophils/100 WBC (Bld) 0.8 % Normal 0.0-2.0 [facility] Comment on above: Performed By: #### 2 566551 #### [facility] [address] [place] [address] Basophils/Leukocytes Auto (Bld) [Pure # fraction] 0.0 E9/L Normal 0.0-0.2 [facility] Comment on above: Performed By: #### 2 908025 #### [facility] [address] [place] [address] Eosinophils (Bld) [#/Vol] 0.1 E9/L Normal 0.0-0.5 [facility] Comment on above: Performed By: #### 2 474483 #### [facility] [address] [place] [address] Eosinophils/100 WBC (Bld) 2.6 % Normal 0.0-8.0 [facility] Comment on above: Performed By: #### 2 480578 #### [facility] [address] [place] [address] Erythrocyte distribution width (RBC) [Ratio] 13.7 % Normal 10.9-14.2 [facility] Comment on above: Performed By: #### 2 985983 #### [facility] [address] [place] [address] Hematocrit (Bld) [Volume fraction] 43.6 % Normal 34.0-46.0 [facility] Comment on above: Performed By: #### 2 657573 #### [facility] [address] [place] [address] Hemoglobin (Bld) [Mass/Vol] 15.4 g/dL Normal 12.0-16.0 [facility] Comment on above: Performed By: #### 2 428313 #### [facility] [address] [place] [address] Lymphocytes (Bld) [#/Vol] 1.7 E9/L Normal 1.0-4.0 [facility] Comment on above: Performed By: #### 2 443744 #### [facility] [address] [place] [address] Lymphocytes/100 WBC (Bld) 33.2 % Normal 14.0-50.0 [facility] Comment on above: Performed By: #### 2 164186 #### [facility] [address] [place] [address] MCH (RBC) [Entitic mass] 33.9 pg Normal 27.0-34.0 [facility] Comment on above: Performed By: #### 2 668167 #### [facility] [address] [place] [address] MCHC (RBC) [Mass/Vol] 35.4 g/dL Normal 31.4-36.0 [facility] Comment on above: Performed By: #### 2 473072 #### [facility] [address] [place] [address] MCV (RBC) [Entitic vol] 95.8 fL Normal 80.0-100.0 [facility] Comment on above: Performed By: #### 2 095148 #### [facility] [address] [place] [address] Monocytes (Bld) [#/Vol] 0.5 E9/L Normal 0.2-1.0 [facility] Center Comment on above: Performed By: #### 2 [id number] #### [facility] [address] [place] [address] Neutrophils (Bld) [#/Vol] 2.8 E9/L Normal 2.0-7.5 [facility] Comment on above: Performed By: #### 2 [id number] #### [facility] [address] [place] [address] Neutrophils/100 WBC (Bld) 54.4 % Normal 36.0-75.0 [facility] Comment on above: Performed By: #### 2 [id number] #### [facility] [address] [place] [address] Platelet 216.0 E9/L Normal 150.0-500.0 [facility] Comment on above: Performed By: #### 2 [id number] #### [facility] [address] [place] [address] Platelet mean volume (Bld) [Entitic vol] 7.0 fL Normal 6.4-10.8 [facility] Comment on above: Performed By: #### 2 [id number] #### [facility] [address] [place] [address] RBC (Bld) [#/Vol] 4.6 E12/L Normal 4.3-5.9 [facility] Comment on above: Performed By: #### 2 [id number] #### [facility] [address] [place] [address] WBC corrected for nucl RBC Auto (Bld) [#/Vol] 5.2 E9/L Normal 4.0-11.0 [facility] Comment on above: Performed By: #### 2 [id number] #### [facility] [address] [place] [address] CHEMISTRYOrdered By: Jose Lopez on 05-15-2024 Troponin HS 5.70 pg/mL Low 10.10 - 27.10 pg/mL Remisol Chem Comment on above: Interpretive Data: T he 95% CI (Confidence Interval) PPV (Positive Predictive Value) for myocardial infarction in females is 38 pg/mL, in males 51 pg/mL. The results should be used in conjunction with clinical conditions of myocardial infarction. (Access High Sensitivity Troponin I Instructions For Use, [employer], June 2018) CHEMISTRYOrdered By: SYSTEM SYSTEM on 05-15-2024 Troponin HS 6.30 pg/mL Low 10.10 - 27.10 pg/mL Remisol Chem Comment on above: Interpretive Data: T he 95% CI (Confidence Interval) PPV (Positive Predictive Value) for myocardial infarction in females is 38 pg/mL, in males 51 pg/mL. The results should be used in conjunction with clinical conditions of myocardial infarction. (Access High Sensitivity Troponin I Instructions For Use, [employer], June 2018) Troponin HS 5.80 pg/mL Low 10.10 - 27.10 pg/mL Remisol Chem Comment on above: Interpretive Data: T he 95% CI (Confidence Interval) PPV (Positive Predictive Value) for myocardial infarction in females is 38 pg/mL, in males 51 pg/mL. The results should be used in conjunction with clinical conditions of myocardial infarction. (Access High Sensitivity Troponin I Instructions For Use, Shivani Margo, June 2018) Anion gap [Moles/Vol] 11 mmol/L Normal 6 - 16 mEq/L Remisol Chem Calcium [Mass/Vol] 9.1 mg/dL Normal 8.9 - 11.1 mg/dL Remisol Chem Chloride [Moles/Vol] 106 mmol/L Normal 101 - 111 mmol/ L Remisol Chem CO2 [Moles/Vol] 27 mmol/L Normal 21 - 31 mmol/L Remis ol Chem Creatinine [Mass/Vol] 0.5 mg/dL Normal 0.5 - 1.3 mg/dL Remisol Chem eGFR 104 mL/min/1.73 m2 Normal >=59mL/min/1.73 m 2 Remisol Chem Glucose [Mass/Vol] 100 mg/dL Normal 55 - 199 mg/dL Re misol Chem Magnesium [Mass/Vol] 1.9 mg/dL Normal 1.3 - 2.4 mg/dL Remisol Chem Potassium [Moles/Vol] 3.7 mmol/L Normal 3.5 - 5.3 mmol/L Remisol Chem Sodium [Moles/Vol] 140 mmol/L Normal 135 - 145 mmol/L Remisol Chem Urea nitrogen [Mass/Vol] 11 mg/dL Normal 5 - 21 mg/dL Remisol Chem Urea nitrogen/Creatinine [Mass ratio] 22 mg/mg High 10 - 20 Remisol Chem COAGULATIONOrdered By: Raina Ojeda on 05-15-2024 aPTT Coag (PPP) [Time] 33.1 s Normal 25.1 - 36.5 second(s) [facility] Auto Coag Comment on above: Interpretive Data: Rah aramettiffanie 15 days - 4 weeks 1 - 5 months 6 - 11 months 1 - 5 years 6 - 10 years 11 - 17 years PTT Mean: 35.4 (27.6-45.6) Mean: 33.5 (24.8-40.7) Mean: 32.4 (25.1-40.7) Mean: 31.6 (24.0-39.2) Mean: 31.6 (26.9-38.7) Mean: 31.0 (24.6-38.4) Pediatric Reference ranges were obtained from a study by ivet Lundberg al. prepared from 1437 samples obtained at 7 different centers using the same coagulation reagent and instrumentation as [facility]. Currently there are no coagulation studies available worldwide for children to 14 days, and no normal ranges. Heparin therapeutic range (represented by Anti-Factor Xa activity of 0.2 - 0.4 U/mL) corresponds to PTT of 56.6 - 109.0 sec. INR Coag (PPP) [Relative time] 0.90 {INR} Invalid Interpretation Code [facility] Auto Coag Comment on above: Interpretive Data: I NR results are specifically intended to assess patients stabilized on long-term Anticoagulation therapy suggested INR s Less Intensive Anticoagulation 2.0 3.0 Conventional Range 3.0 4.5 PT Coag (PPP) [Time] 10.1 s Normal 9.4 - 1 2.5 second(s) [facility] Auto Coag Comment on above: Interpretive Data: 1 5 days - 4 weeks 1 - 5 months 6 -11 months 1-5 years 6-10 years 11 -17 years Mean: 11.2 (9.5-12.6) Mean: 11.0 (9.7-12.8) Mean: 11.0 (9.8-13.0) Mean: 11.3 (9.9-13.4) Mean: 11.7 (10.0-14.6) Mean: 11.8 (10.0 - 14.1) Pediatric Reference ranges were obtained from a study by ivet Lundberg al. prepared from 1437 samples obtained at 7 different centers using the same coagulation reagent and instrumentation as [facility]. Currently there are no coagulation studies available worldwide for children to 14 days, and no normal ranges. ED Clinical Summaryon 2023 ED Clinical Summary ED Clinical Summary [address] [address] ED Clinical Summary Person Information [facility]: [facility] Age[facility] 63 Years : 1960 Sex: Female Language: Slovenian PCP: Dorie Luis MD Marital Status: Visit Id: Visit Reason: Shortness of breath; Chest pain; CHEST PAIN Speciality: Acuity: 2 Enc Type: Observation Med Service: Emergency Arrival: 05/15/2024 13:15:09 Discharge: LOS: 000 02:49 Checkin: 05/15/2024 13:15:09 Checkout: 05/15/2024 16:04:14 Dispo Type: Admitted as IP to this [facility] EVENTS: Event Name Event Status Request Date/Time Start Date/Time Complete Date/Time Arrive Complete 05/15/2024 13:15:09 05/15/2024 13:15:09 05/15/2024 13:15:09 Document Home Meds Request 05/15/2024 13:15:09 Triage Complete 05/15/2024 13:15:09 05/15/2024 13:22:46 05/15/2024 13:22:46 Bed Assign Complete 05/15/2024 13:15:09 05/15/2024 13:15:09 05/15/2024 13:15:09 Dr Exam Complete 05/15/2024 13:15:09 05/15/2024 13:15:59 05/15/2024 13:15:59 RN Exam Complete 05/15/2024 13:15:09 05/15/2024 15:50:57 05/15/2024 15:50:57 Registration Complete 05/15/2024 13:15:59 05/15/2024 14:22:26 05/15/2024 14:22:26 EKG Complete 05/15/2024 13:16:59 05/15/2024 13:21:00 Pending Labs Request 05/15/2024 13:24:49 Lab Complete 05/15/2024 13:24:49 05/15/2024 14:04:40 Meds Admin Request 05/15/2024 13:24:50 Patient Care Request 05/15/2024 13:24:50 RT Request 05/15/2024 13:24:50 X-Ray Complete 05/15/2024 13:24:50 05/15/2024 13:42:28 05/15/2024 13:49:55 Meds Admin Complete 05/15/2024 13:40:49 05/15/2024 13:47:43 Pending Labs Complete 05/15/2024 13:41:23 05/15/2024 13:41:23 05/15/2024 14:04:40 Lab Complete 05/15/2024 13:41:23 05/15/2024 13:41:23 05/15/2024 14:04:40 Wet Read Request 05/15/2024 13:49:55 Reg Complete Request 05/15/2024 14:22:26 Reg Bed Request Complete 05/15/2024 14:22:26 05/15/2024 14:22:26 05/15/2024 14:22:26 Consult Request 05/15/2024 14:39:37 Hospitalist Consult Request 05/15/2024 14:39:37 Bed Request Request 05/15/2024 14:53:07 Reg Bed Request Complete 05/15/2024 14:53:07 05/15/2024 15:04:56 05/15/2024 15:04:56 Admit Request 05/15/2024 14:53:07 Patient Care Request 05/15/2024 15:04:57 Patient Care Request 05/15/2024 15:04:57 Medicare Form Complete 05/15/2024 15:04:58 05/15/2024 15:16:07 Patient Care Request 05/15/2024 15:04:58 Patient Care Request 05/15/2024 15:04:58 Patient Care Request 05/15/2024 15:50:57 Consult Request 05/15/2024 15:57:03 Patient Care Request 05/15/2024 16:03:22 Pending Labs Request 05/15/2024 16:03:22 Lab Request 05/15/2024 16:03:22 Meds Admin Request 05/15/2024 16:03:22 RT Request 05/15/2024 16:03:22 ADDRESS: [facility] [address] [facility] [id number] [facility] DOC NOTES: MEDICAL INFORMATION: Prescriptions Given: Medications to Continue with No Changes Other Medications albuterol (Albuterol (Eqv-ProAir HFA) 90 mcg/inh inhalation aerosol) 2 Puffs Inhalation every 4 hours. as needed. alprazolam (alprazolam 1 mg Tab) 1 Tablets By Mouth 4 times a day as needed for anxiety. aspirin (aspirin 81 mg Oral EC Tab) 1 Tablets By Mouth every day. atorvastatin (atorvastatin 80 mg Tab) 1 Tablets By Mouth every day. Refills: 5. carvedilol (Coreg 3.125 mg Tab) 1 Tablets By Mouth 2 times a day. Refills: 3. fluticasone/umeclid inium/vilanterol (Trelegy Ellipta 100 mcg-62.5 mcg-25 mcg inhalation powder) 1 Puffs Inhalation every day. isosorbide mononitrate (isosorbide mononitrate 30 mg ER Tab) 1 Tablets By Mouth every day for 30 Days. Refills: 6. lamotrigine (Lamictal 25 mg Tab) 3 tablets at bedtime. [facility] Prescription (Handicap Placard, 5 years.) Handicap Placard, 5 years.. Refills: 0. multivitamin (Dosokap oral tablet) 1 Tablets By Mouth every day. Refills: 0. nitroglycerin (nitroglycerin 0.4 mg sublingual Tab) 1 Tablets Sublingual every 5 minutes as needed Chest pain. Refills: 0. olanzapine (ZyPREXA 5 mg Tab) one tablet at bedtime. prasugrel (prasugrel 10 mg Tab) 1 Tablets By Mouth every day. Refills: 3. quetiapine 400 Milligram By Mouth once a day (in the evening). ranolazine (Ranexa 500 mg Tab-ER) 1 Tablets By Mouth 2 times a day. Refills: 5. ropinirole (ropinirole 1 mg Tab) 1 Tablets By Mouth every day. Refills: 1. trazodone (traZODONE 100 mg Tab) 3 tablets at bedtime. venlafaxine (Effexor XR 150 mg Cap-ER) 2 capsules at bedtime. PATIENT EDUCATION INFORMATION: Instructions: Follow up: DIAGNOSIS: 1:Chest pain; 2:Dizziness; 3:HTN (hypertension), benign; 4:RLS (restless legs syndrome); 5:COPD (chronic obstructive pulmonary disease); 6:CAD (coronary artery disease); 7:History of ST elevation myocardial infarction (STEMI); 8:Tobacco dependence; 9:Obese; 10:On deep vein thrombosis (DVT) prophylaxis [facility] ED Note-Physicianon 05-15-20 ED Note-Physician ED Note-Physician Basic Information Time Seen: Garciaruthie BrooksAinsley 05/15/2024 13:16 Chief Complaint pt presents via [facility] with c/o CP and SOB starting at 0600. pt has hx of stents. pt took 3 nitro and ASA before arrival. pt states pain is better but feels pressure . hx of copd History of Present Illness The patient is 63-year-old female past medical history of coronary artery disease status postcardiac stent who presented to the emergency room with chest pain. The patient stated the pain started this morning. She states the pain is achy. She points to the center of the chest. The patient states she took 1 baby aspirin and she took 3 nitroglycerin and her pain has gotten better. The patient stated now she is feeling some pressure and points to the lower end of the sternum. The patient reports some nausea. She denies any vomiting. The patient reports some lightheadedness. The patient denies any cough. She reports some shortness of breath. The patient denies any other associated symptoms. Review of Systems Additional ROS info: Except as noted in the above Review of Systems and in the History of Present Illness all other systems have been reviewed and are negative or noncontributory. Physical Exam Vitals & Measurements T: 36.9 ?C(Oral) HR: 74(Monitored) RR: 18 BP: 185/99 SpO2: 96% HT: 154 cm WT: 72.2 kg BMI: 30.44 General: alert, no acute distress Skin: warm, dry, Head: no trauma, normocephalic Neck: Trachea midline, no tenderness, supple Eye: normal conjunctiva, sclera clear, PERRL, EOMI, vision unchanged ENMT: Oral mucosa moist, no pharyngeal erythema or exudate Cardiovascular: regular rate and rhythm Respiratory: Lungs CTA, respirations non labored, breath sounds equal, Gastrointestinal: soft, non distended, no tenderness, no guarding, Extremities: no deformity, no trauma Neurological: Alert and oriented, speech normal, no focal neuro deficits Psychiatric: cooperative, affect appropriate for age, Procedure Heart Score for Major Cardiac Event History: Example factors for history - pattern of chest pain, onset, duration, relation with exercise, stress or cold, localization, concominant symptoms. reaction to sublingual nitrates, [] Highly suspicious +2 [x] Moderately suspicious +1 [] Slightly suspicious 0 EKG: [x] Significant ST-Depression +2 [] Non specific repolarization disturbance +1 [] Normal 0 Age: [] >= 65 +2 [x] 45-65 + 1 [] <45 0 Risk Factors: (HLD, HTN, DM, Cigarette Smoking, Pos Family Hx, Obesity) [x] >3 risk factors or hx of atheroslerotic disease + 2 [] 1-2 risk factors + 1 [] No risk factors known 0 Troponin: [] >= 3X normal + 2 [] 1-3X normal + 1 [x] <= Normal 0 - [] 0-3 Points 0.9 - 1.7% risk of major adverse cardiac event in 6 weeks [x] 4-6 Points 12-16.6% risk of major adverse cardiac event in 6 weeks [] 7-10 Points 50-65% risk of major adverse cardiac event in 6 weeks - [] 0-3 Points with 2 sets of negative cardiac markers <1% risk of major adverse cardiac event in 30 days. - Medical Decision Making MEDICAL DECISION MAKING Number and Complexity of Problems Differential Diagnosis: [] [facility] Data External documents reviewed: [] My EKG interpretation: [] My CT interpretation: [] My X-ray interpretation: [] My Ultrasound interpretation: [] Decision rules/scores evaluated: [] Discussed with: Hospitalist Treatment and Disposition ED Course: The patient presented with chest pain. She does have history of coronary artery disease. She is status post cardiac stent. EKG shows ST segment depression. No ST segment elevation. Blood work reviewed. Troponin is negative. Chest x-ray shows no acute cardiopulmonary disease. The patient was given nitroglycerin and that improved her pain. She was placed on 1 inch of Nitropaste. The case is discussed with the hospitalist and the patient will be admitted to rule out ACS. Shared decision making: [] Code status: [] Assessment/Plan 1. Chest pain (R07.9: Chest pain, unspecified) 2. Dizziness (R42: Dizziness and giddiness) 3. HTN (hypertension), benign (I10: Essential (primary) hypertension) 4. RLS (restless legs syndrome) (G25.81: Restless legs syndrome) 5. COPD (chronic obstructive pulmonary disease) (J44.9: Chronic obstructive pulmonary disease, unspecified) 6. CAD (coronary artery disease) (I25.10: Atherosclerotic heart disease of [place] coronary artery without angina pectoris) 7. History of ST elevation myocardial infarction (STEMI) (I25.2: Old myocardial infarction) 8. Tobacco dependence (F17.200: Nicotine dependence, unspecified, uncomplicated) 9. Obese (E66.9: Obesity, unspecified) Orders: aspirin, 162 mg = 2 tab(s), Tab-Chew, Oral, Once, Stop date 05/15/24 13:24:00 EDT, STAT, Start (more content not included)... Normal [facility] Comment on above: Result Comment: Elec tronically Signed By: Ainsley Rose M.D..jihan\Date and Time Signed: 05/15/24 15:55 EDT ED Patient Education Noteon 05-15-2024 ED Patient Education Note ED Patient Education Note Normal [facility] ED Patient Summaryon 024 ED Patient Summary ED Patient Summary [place] [id number] Patient Discharge Instructions Person Information Name: LIVIA JACOBO Age: 63 Years Arrival Date: 05/15/2024 13:15:09 Discharge Diagnosis: 1:Chest pain; 2:Dizziness; 3:HTN (hypertension), benign; 4:RLS (restless legs syndrome); 5:COPD (chronic obstructive pulmonary disease); 6:CAD (coronary artery disease); 7:History of ST elevation myocardial infarction (STEMI); 8:Tobacco dependence; 9:Obese; 10:On deep vein thrombosis (DVT) prophylaxis Primary Care Physician: Dorie Luis MD Provider Information Primary Provider: Ainsley Rose M.D. Advanced Lining Finisher:None The exam and treatment you received in the Emergency Department were for an urgent problem and are not intended as complete care. It is important that you follow up with a doctor, nurse practitioner, or physician?s assistant program director for ongoing care. If your symptoms become worse or you do not improve as expected and you are unable to reach your usual health care provider, you should return to the Emergency Department. We are available 24 hours a day. LIVIA JACOBO has been given the following list of patient education materials, prescriptions and follow-up instructions: Follow-up Instructions: In the event that this physician does not participate in your insurance network, please consult with your insurance company to find a nearby participating provider. Patient Education Materials: A MESSAGE TO ALL PATIENTS REGARDING OPIOIDS PRESCRIPTION OPIOIDS: WHAT YOU NEED TO KNOW Prescription opioids can be used to help relieve mplarasf-qb-zagkqh pain and are often prescribed following a surgery or injury, or for certain health conditions. These medications can be an important part of the treatment but also come with serious risks. It is important to work with your healthcare provider to make sure you are getting the safest, most effective care. WHAT ARE THE RISKS AND SIDE EFFECTS OF OPIOID USE? Prescription opioids carry serious risks of addiction and overdose, especially with prolonged use. An opioid overdose, often marked by slowed breathing, can cause sudden . The use of prescription opioids can have a number of side effects as well, even when taken as directed: ? Tolerance?meaning you might need to take more of the medication for the same pain relief ? Physical dependence?meaning you have symptoms of withdrawal when a medication is stopped ? Increased sensitivity to pain ? Constipation ? Nausea, vomiting, and dry mouth ? Sleepiness and dizziness ? Confusion ? Depression ? Low levels of testosterone that can result in lower sex drive, energy, and strength ? Itching and sweating RISKS ARE GREATER WITH: ? History of drug misuse, substance use disorder, or overdose ? Mental health conditions (such as depression or anxiety) ? Sleep apnea ? Older age (65 years and older) ? Avoid alcohol while taking prescription opioids. Also, unless specifically advised by your health care provider, medications to avoid include: ? Benzodiazepines (such as Xanax or Valium) ? Muscle relaxants (such as Soma or Flexeril) ? Hypnotics (such as Ambien or Lunesta) ? Other prescription opioids KNOW YOUR OPTIONS Talk to your health care provider about ways to manage your pain that don?t involve prescription opioids. Some of these options may actually work better and have fewer risks and side effects. Options may include: ? Pain relievers such as acetaminophen, ibuprofen, and naproxen ? Some medication that are also used for depression or seizures ? Physical therapy and exercise ? Cognitive behavioral therapy, a psychological, goal-directed approach, in which patients learn how to modify physical, behavioral, and emotional triggers of pain and stress. IF YOU ARE PRESCRIBED OPIOIDS FOR PAIN: ? Never take opioids in greater amounts or more often than prescribed. ? Follow up with your primary health care provider. o Work together to create a plan on how to manage your pain. o Talk about ways to help manage your pain that don?t involve prescription opioids. o Talk about any and all concerns and side effects. ? Help prevent misuse and abuse o Never sell or share prescription opioids. o Never use another person?s prescription opioids. ? Store prescription opioids in a secure place and out of reach of others (this may include visitors, children, friends, and family). ? Safely dispose of unused prescription opioids: Find your community drug take-back program or your pharmacy mail-back program, or flush them down the toilet, following guidance from the Food and Drug Administration (www.fda.gov/Drugs/ ResourcesForYou). ? Visit www.cdc.gov/drugove rdose to learn about the risks of opioids abuse and overdose. ? If you believe you may be struggling with addiction (more content not included)... Normal [facility] EMS Documentationon 05-15-20 EMS Documentation Report Please click on link to see report Normal [facility] Comment on above: Result Comment: Miss ing Attachment - total size limit for all attachments exceeded [email or web address] Can be viewed in source system HEMATOLOGYOrdered By: SYSTEM SYSTEM on 05-15-2024 Basophils/100 WBC (Bld) 0.8 % Normal 0.0 - 2.0 % Remisol Heme Basophils/Leukocytes Auto (Bld) [Pure # fraction] 0.0 E9/L Normal 0.0 - 0.2 E9/L Remisol Heme Eosinophils (Bld) [#/Vol] 0.1 E9/L Normal 0.0 - 0.5 E9/L Remisol Heme Eosinophils/100 WBC (Bld) 2.6 % Normal 0.0 - 8.0 % Remisol Heme Erythrocyte distribution width (RBC) [Ratio] 13.7 % Normal 10.9 - 14.2 % Remisol Heme Hematocrit (Bld) [Volume fraction] 43.6 % Normal 34.0 - 46.0 % Remisol Heme Hemoglobin (Bld) [Mass/Vol] 15.4 g/dL Normal 12.0 - 16.0 gm/dL Remisol Heme Lymphocytes (Bld) [#/Vol] 1.7 E9/L Normal 1.0 - 4.0 E9/L Remisol Heme Lymphocytes/100 WBC (Bld) 33.2 % Normal 14.0 - 50.0 % Remisol Heme MCH (RBC) [Entitic mass] 33.9 pg Normal 27.0 - 34.0 pg Remisol Heme MCHC (RBC) [Mass/Vol] 35.4 g/dL Normal 31.4 - 36.0 gm/dL Remisol Heme MCV (RBC) [Entitic vol] 95.8 fL Normal 80.0 - 100.0 fL Remisol Heme Monocytes (Bld) [#/Vol] 0.5 E9/L Normal 0.2 - 1.0 E9/L Remisol Heme Monocytes/100 WBC (Bld) 9.0 % Normal 4.0 - 14.0 % Remisol Heme Neutrophils (Bld) [#/Vol] 2.8 E9/L Normal 2.0 - 7.5 E9/L Remisol Heme Neutrophils/100 WBC (Bld) 54.4 % Normal 36.0 - 75.0 % Remisol Heme Platelet 216.0 E9/L Normal 150.0 - 500.0 E9/L Remiso l Heme Platelet mean volume (Bld) [Entitic vol] 7.0 fL Normal 6.4 - 10.8 fL Remisol Heme RBC (Bld) [#/Vol] 4.6 E12/L Normal 4.3 - 5.9 E12/L Re misol Heme WBC corrected for nucl RBC Auto (Bld) [#/Vol] 5.2 E9/L Normal 4.0 - 11.0 E9/L Remisol Heme Magnesiumon 05-15-2024 Magnesium [Mass/Vol] 1.9 mg/dL Normal 1.3-2.4 [facility] Comment on above: Performed By: #### 2 [id number] #### [facility] [address] [place] [address] PT & PTTon 05-15-2024 aPTT Coag (PPP) [Time] 33.1 second(s) Normal 25.1-36.5 [facility] Comment on above: Result Comment: Para meter 15 days - 4 weeks 1 - 5 months 6 - 11 months 1 - 5 years 6 - 10 years 11 - 17 years PTT Mean: 35.4 (27.6-45.6) Mean: 33.5 (24.8-40.7) Mean: 32.4 (25.1-40.7) Mean: 31.6 (24.0-39.2) Mean: 31.6 (26.9-38.7) Mean: 31.0 (24.6-38.4) Pediatric Reference ranges were obtained from a study by Messi Chambers et al. prepared from 1437 samples obtained at 7 different centers using the same coagulation reagent and instrumentation as [facility]. Currently there are no coagulation studies available worldwide for children to 14 days, and no normal ranges. Heparin therapeutic range (represented by Anti-Factor Xa activity of 0.2 - 0.4 U/mL) corresponds to PTT of 56.6 - 109.0 sec. Performed By: #### 1 [id number] #### [facility] [address] [place] [address] INR Coag (PPP) [Relative time] 0.90 {INR} Invalid Interpretation Code [facility] Comment on above: Result Comment: INR results are specifically intended to assess patients stabilized on long-term Anticoagulation therapy suggested INR?s ?Less Intensive Anticoagulation? 2.0 ? 3.0 Conventional Range 3.0 ? 4.5 Performed By: #### 1 [id number] #### [facility] [address] [place] [address] PT Coag (PPP) [Time] 10.1 second(s) Normal 9.4-12.5 [facility] Comment on above: Result Comment: 15 d ays - 4 weeks 1 - 5 months 6 -11 months 1- 5 years 6-10 years 11 -17 years Mean: 11.2 (9.5-12.6) Mean: 11.0 (9.7-12.8) Mean: 11.0 (9.8-13.0) Mean: 11.3 (9.9-13.4) Mean: 11.7 (10.0-14.6) Mean: 11.8 (10.0 - 14.1) Pediatric Reference ranges were obtained from a study by Messi Chambers et al. prepared from 1437 samples obtained at 7 different centers using the same coagulation reagent and instrumentation as [facility]. Currently there are no coagulation studies available worldwide for children to 14 days, and no normal ranges. Performed By: #### 1 [id number] #### [facility] [address] [place] [address] Pre-Arrival Noteon Pre-Arrival Note Pre-Arrival Note Pre-Arrival Summary Name: , Current Date: 05/15/2024 13:15:32 EDT Gender: Date of : Age: Pre-Arrival Type: EMS ETA: 05/15/2024 13:43:00 EDT Primary Care Physician: Presenting Problem: chest pain Pre-Arrival User: Sully Arenas RN Referring Source: Location: [place] Completion Date/Time: 05/15/2024 13:13:00 [facility] Emergency Department Pre-Hospital Report Form ___ Vital Signs: 3 nitro given- pain better Pre-Hospital Report: Treatment in Route: Response to Treatment: Misc. Issues: Normal [facility] Troponin 0 Hr.on 05-15-2024 Troponin HS 5.70 pg/mL Low 10.10-27.10 [facility] Comment on above: Result Comment: The 95% CI (Confidence Interval) PPV (Positive Predictive Value) for myocardial infarction in females is 38 pg/mL, in males 51 pg/mL. The results should be used in conjunction with clinical conditions of myocardial infarction. (Access High Sensitivity Troponin I Instructions For Use, [employer], June 2018) Performed By: #### 1 [id number] #### [facility] [address] [place] [address] Troponin 1 Hr.on 05-15-2024 Troponin HS 5.80 pg/mL Low 10.10-27.10 [facility] Comment on above: Order Comment: 1430 Result Comment: The 95% CI (Confidence Interval) PPV (Positive Predictive Value) for myocardial infarction in females is 38 pg/mL, in males 51 pg/mL. The results should be used in conjunction with clinical conditions of myocardial infarction. (Access High Sensitivity Troponin I Instructions For Use, [employer], June 2018) Performed By: #### 1 [id number] #### [facility] [address] [place] [address] Troponin 3 Hr.on 05-15-2024 Troponin HS 6.30 pg/mL Low 10.10-27.10 [facility] Comment on above: Result Comment: The 95% CI (Confidence Interval) PPV (Positive Predictive Value) for myocardial infarction in females is 38 pg/mL, in males 51 pg/mL. The results should be used in conjunction with clinical conditions of myocardial infarction. (Access High Sensitivity Troponin I Instructions For Use, [employer], June 2018) Performed By: #### 1 [id number] #### [facility] [address] [place] [address] Troponin 6 Hr.on 05-15-2024 Troponin HS 5.70 pg/mL Low 10.10-27.10 [facility] Comment on above: Result Comment: The 95% CI (Confidence Interval) PPV (Positive Predictive Value) for myocardial infarction in females is 38 pg/mL, in males 51 pg/mL. The results should be used in conjunction with clinical conditions of myocardial infarction. (Access High Sensitivity Troponin I Instructions For Use, Shivani Margo, June 2018) Performed By: #### 1 [id number] #### [facility] [address] [place] [address] XR Chest Single Viewon 05-15 XR Chest Single View Exam Date/Time: 05/15/2024 13:49 EDT Reason for Exam: Chest pain Report IMPRESSION: NO EVIDENCE OF ACTIVE CARDIOPULMONARY DISEASE, BY PORTABLE CHEST RADIOGRAPHY. COPD, WHICH IS BEST EVALUATED CLINICALLY. EXAM: XR Chest Single View DATE: 05/15/2024 1:42 PM CLINICAL HISTORY: Chest pain. COMPARISON: 08/31/2023, 08/08/2023, and 07/09/2023 TECHNIQUE: A portable upright AP radiograph of the chest was obtained. FINDINGS: There is no developing infiltrate, pleural effusion, vascular congestion, pneumothorax, cardiomegaly, or displaced fractures identified. Mild hyperinflation and coarsening of the bronchovascular structures consistent with COPD with probable scarring and/or atelectasis of the mid to lower lung rivera appears substantially similar the prior studies, given differences in technique and positioning. Ordering Provider: Ainsley Rose FINAL REPORT Dictated: 05/15/2024 2:04 pm Venancio Jean Baptiste MD Signed (Electronic Signature): 05/15/2024 2:04 pm Signed by: Venancio Jean Baptiste MD Transcribed by: JEANINE Technologist: CC Technical Comments Radiation Dose: Ka,r in mGy = na DAP = na Normal [facility] eGFRon 05-15-2024 eGFR 104 mL/min/1.73 m2 Normal >=59 [facility] Comment on above: Order Comment: Order added by Discern Expert. Performed By: #### 1 [id number] #### [facility] [address] [place] [address] ECG 12-Leadon 03-29-2024 ECG 12-Lead [id number] 54#1.00TIFF Normal [facility] ED Note-Physicianon 03-29-20 ED Note-Physician [id number] 5#1.00TIFF [facility] RAD - MISCon 03-29-2024 RAD - MISC [id number] A9#1.00TIFF [facility] Provider Letteron 03-28-2024 Provider Letter March 28, 2024 LIVIA [address]OBO [address] [place] [id number] : 1960 Dear Livia , We have been trying to reach you with no success. You have an appointment for a Medicare Wellness on June 13, 2024, which will need to be rescheduled since we do not do Medicare Wellness on Wednesdays anymore, I would like to make your appt. on Wednesday June 12, 2024 @ 11:00 a.m. Please contact the office if this appt. will not work out for you. Thank you for your prompt attention to this matter. Sincerely, Family [address] [address] [facility] Consultation Noteon 03-09-20 24 Consultation Note [id number] BF#1.00TIFF [facility] Consultation Note [id number] 88#1.00TIFF [facility] Outside Recordson 03-08-2024 Outside Records [id number] 304#1.00TIFF [facility] Heart and Vascular Office/Cl inic Noteon 02-02-2024 Heart and Vascular Office/Clinic Note Chief Complaint patient here for 3 month f/u History of Present Illness Livia Jacobo is a 63-year-old female who presents today for a follow-up evaluation. The patient reports persistent episodes of dizziness but with a 35 to 40% improvement. She experiences chest pain and tightness every other day, but these episodes are brief. She has not needed to take nitroglycerin. Periods of fatigue are also reported. The patient asks about the possibility of tattoo recoloring while on anticoagulant. Additionally, she expressed concerns about potential adverse reactions between her medications and tanning booths. Review of Systems Constitutional: positive for fatigue, no fever, no sweats, no weakness Skin: no rash, no lesions, no bruising/petechiae ENMT: no sore throat, no congestion, no hoarseness Respiratory: no shortness of breath, no cough, no orthopnea, no wheezing Cardiovascular: positive for chest pain, positive for chest tightness, no palpitations, no edema Gastrointestinal: no nausea, no vomiting, no diarrhea, no GI bleeding Genitourinary: no anuria/oliguria no hematuria Musculoskeletal: no back pain, no trauma Neurologic: no headache, positive for dizziness, no numbness, no weakness Psychiatric: no sleeping problems, no irritability, no anxiety/depression. Heme/Lymph: no bleeding tendency, no bruising tendency Allergy/Immunologic : no recurrent infections, no impaired immunity Additional ROS info: Except as noted in the above Review of Systems and in the History of Present Illness all other systems have been reviewed and are negative or noncontributory Physical Exam Vitals & Measurements HR: 82(Peripheral) BP: 142/82 SpO2: 92% HT: 61 in HT: 154 cm WT: 70.3 kg WT: 154.66 lb BMI: 29.64 General: alert, no acute distress Skin: warm, dry intact Head: atraumatic, normocephalic Neck: trachea midline, no JVD, no bruit Eye: normal conjunctiva, sclera clear ENMT: oral mucosa moist Cardiovascular: regular rate and rhythm, no murmur, normal peripheral perfusion Respiratory: lungs CTA, respirations non labored Chest wall: no deformity. Gastrointestinal: soft, non-distended, no tenderness, no guarding. Back: no tenderness, normal ROM, normal alignment. Extremities: no edema, no deformity, no trauma Neurological: oriented x 4, LOC appropriate for age, sensation equal & normal bilaterally, speech normal Psychiatric: cooperative, affect appropriate for age, normal judgement, normal psychiatric thoughts. Assessment/Plan 1. Dizziness. The patient reports an improvement in her dizziness. Her blood pressure is elevated. She will continue her current medication. I have answered questions to the patient's satisfaction. I have also suggested addressing with a pharmacist her concerns regarding the adverse effects of any of her medications to a tanning caro. 2. CAD CAD, remote PCI. DAPT, atorvastatin, b-tamika plus/minus ARB. Risk factor modification, diet, exercise and tobacco discussed. 3. Hypertension BP stable on meds- continue Coreg, Imdur Follow Up: The patient will follow up in 6 months or sooner if needed. ATTESTATION: Portions of this record may have been created with voice recognition artificial intelligence software, specifically AmberAds, Attributor and or Vserv. Substitutions may have occurred due to the inherent limitations of voice recognition and artificial intelligence software. Documentation services were performed after patient or guardian consented to allow [employer] to record this visit. DESTINY early childhood education specialist and provider reviewed before signing. DESTINY: Soren Casillas. Follow-up No qualifying data available Problem List/Past Medical History Ongoing Anxiety and depression Atherosclerosis of aorta COPD (chronic obstructive pulmonary disease) Current smoker Fatigue History of ST elevation myocardial infarction (STEMI) History of total abdominal hysterectomy HTN (hypertension), benign Major depressive disorder, recurrent, mild Polyneuropathy Primary insomnia RLS (restless legs syndrome) Walker as ambulation aid Historical Acute ST elevation myocardial infarction (STEMI) Procedure/Surgical History PCI - Percutaneous coronary intervention (07/09/2023), Angioplasty, Gallbladder, Hysterectomy. Medications Albuterol (Eqv-ProAir HFA) 90 mcg/inh inhalation aerosol, 2 puff(s), Inhalation, q4hr alprazolam 1 mg Tab, 1 mg= 1 tab(s), Oral, QID, PRN aspirin 81 mg Oral EC Tab, 81 mg= 1 tab(s), Oral, Daily atorvastatin 80 mg Tab, 80 mg= 1 tab(s), Oral, Daily, 1 refills Coreg 3.125 mg Tab, 3.125 mg= 1 tab(s), Oral, BID, 3 refills Dosokap oral tablet, 1 tab(s), Oral, Daily, Not taking Effexor XR 150 mg Cap-ER Handicap Placard, 5 years., See Instructions isosorbide mononitrate 30 mg ER Tab, 30 mg= 1 tab(s), Oral, Daily, 6 refills Lamictal 25 mg Tab nitroglycerin 0.4 mg sublingual Tab, 0.4 mg= 1 tab(s), SubLi (more content not included)... Normal [facility] Comment on above: Result Comment: Elec tronically Signed By: Sheila POSEY, Tiffany Chavarria\.br\Date and Time Signed: 02/02/24 10:55 EDT\.br\Electronically Co-Signed By: Soren Casillas\.br\Date and Time Co-Signed: 01/06/24 15:48 EST Physician Orderon 01-09-2024 Physician Order [id number] 239#1.00TIFF Normal [facility] RAD - CT Reporton 01-05-2024 RAD - CT Report [id number] 09#1.00TIFF Normal [facility] Consultation Noteon 12-08-19 Consultation Note [id number] C1#1.00TIFF Normal [facility] Heart and Vascular Office/Cl inic Noteon 12-08-2023 Heart and Vascular Office/Clinic Note Chief Complaint c/o SOB - chest pain 01/21 - [facility] ER 11/20/23 dr thought pt had URI ,also thought sob was from Brilinta History of Present Illness Livia Jacobo is a 63-year-old female who presents today for a follow-up evaluation. She is accompanied by an adult female. The patient has been experiencing dyspnea, potentially linked to her Brilinta medication. Her dyspnea has improved, particularly following the placement of her 2nd and 3rd stents. Her lead front desk agent expresses a concern about potential hypotension. The patient has been taking nitroglycerin almost daily, which has significantly lowered her blood pressure. After taking a dose of nitroglycerin the other night, her systolic blood pressure dropped to 59 mmHg and her diastolic pressure to approximately 30 mmHg, as measured by an automatic blood pressure cuff. The patient was moved to the bed and her legs were elevated, which increased her blood pressure to around 70/40 mmHg. She has abstained from taking her Norvasc and losartan medications for the past 2 days, during which her blood pressure has remained stable. She is not currently on any diuretic medications. Despite taking 3 doses of nitroglycerin on 11/29/2023, and 1 dose this morning, she continues to experience chest pressure. The patient also reports she falls constantly but is able to set herself down on the floor before she passes out. The patient was prescribed a new inhaler by Dr. Osborne(Hermelindo?) on 11/30/2023. The prescribed usage is 2 inhalations in the morning and 2 in the evening. She was diagnosed with an upper respiratory infection during her visit to the emergency room at [place]. The patient has an appointment scheduled with her psychiatrist, Dr. Sandhu. Her current medication regimen includes ZyPREXA. Review of Systems PHQ Score Initial Depression Screen Score: 0 SCORE Constitutional: no fever, no sweats, no weakness Skin: no rash, no lesions, no bruising/petechiae ENMT: no sore throat, no congestion, no hoarseness Respiratory: positive for shortness of breath, no cough, no orthopnea, no wheezing Cardiovascular: positive for chest pressure, no palpitations, no edema Gastrointestinal: no nausea, no vomiting, no diarrhea, no GI bleeding Genitourinary: no anuria/oliguria no hematuria Musculoskeletal: no back pain, no trauma Neurologic: no headache, no dizziness, no numbness, no weakness Psychiatric: no sleeping problems, no irritability, no anxiety/depression. Heme/Lymph: no bleeding tendency, no bruising tendency Allergy/Immunologic : no recurrent infections, no impaired immunity Additional ROS info: Except as noted in the above Review of Systems and in the History of Present Illness all other systems have been reviewed and are negative or noncontributory Physical Exam Vitals & Measurements HR: 88(Peripheral) BP: 120/76 SpO2: 95% HT: 61 in HT: 154 cm WT: 68.6 kg WT: 150.92 lb BMI: 28.93 General: alert, no acute distress Skin: warm, dry intact Head: atraumatic, normocephalic Neck: trachea midline, no JVD, no bruit Eye: normal conjunctiva, sclera clear ENMT: oral mucosa moist Cardiovascular: regular rate and rhythm, no murmur, normal peripheral perfusion Respiratory: lungs CTA, respirations non labored Chest wall: no deformity. Gastrointestinal: soft, non-distended, no tenderness, no guarding. Back: no tenderness, normal ROM, normal alignment. Extremities: no edema, no deformity, no trauma Neurological: oriented x 4, LOC appropriate for age, sensation equal & normal bilaterally, speech normal Psychiatric: cooperative, affect appropriate for age, normal judgement, normal psychiatric thoughts. Assessment/Plan 1. 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 An unsuccessful crossing by me was able to be successfully crossed by Dr. Castrejon. She is still having some chest pain and dyspnea. I suspect that the patient is slightly dry. The recent EKG changes, which showed ST deviation and moderate T-wave abnormality, were likely to be contributed by her medications. We discussed the potential etiology of her chest pressure given her current medications and that blockages do not have a significant impact on blood pressure. We will switch Brilinta to Effient. Advised to discontinue Brilinta for 1 day then start taking Effient the following day. We will stop her losartan and Norvasc, since she has been having significantly low blood pressures, and we will get some labs. We will consider another catheterization if symptoms do not improve. Follow Up: The patient will follow up in a few months in [place]. We will keep her previous appointment in 12/2023. 2. Current smoker (F17.200: Nicotine dependence, unspecified, uncomplicated) We strongly recommend to quit tobacco use. (more content not included)... [facility] Comment on above: Result Comment: Elec tronically Signed By: Sheila POSEY, Tiffany Chavarria\.br\Date and Time Signed: 12/08/23 06:46 EST\.br\Electronically Co-Signed By: Soren Casillas\.br\Date and Time Co-Signed: 12/01/23 17:27 EST Consent for Treatmenton 11-14 Consent for Treatment [id number] 71#1.00TIFF [facility] Outside EDon 12-01-2023 Outside ED [id number] 161#1.00TIFF [facility] Outside Labson 12-01-2023 Outside Labs [id number] 997#1.00TIFF Normal [facility] Outside Operativeon 12-01-19 24 Outside Operative [id number] 636#1.00TIFF Normal [facility] Outside Radiologyon 12-01-19 24 Outside Radiology [id number] 641#1.00TIFF Normal [facility] Physician Orderon 12-01-2023 Physician Order [id number] 650#1.00TIFF Normal [facility] ED Note-Physicianon 11-02-20 ED Note-Physician [id number] 80#1.00TIFF Normal [facility] RAD - MISCon 11-02-2023 RAD - MISC [id number] BE#1.00TIFF Normal [facility] Prescriptions/Work Noteson 1 12-28-2022 Prescriptions/Work Notes [id number] 541#1.00TIFF Normal [facility] Activated clotting timeon ACT Coag (Bld) 286 s High 89-169 [facility] Comment on above: Result Comment: Targ et ACT range will vary based on the patient population, clinical status, and surgical intervention occurring. Performed By: #### 3 184-9 #### ANDREE TONY ([id number]) [facility] ([facility]) [address] [place] [place] [address] Basic metabolic 2000 panelon 10-26-2023 Anion gap [Moles/Vol] 11 mmol/L Normal 09-02 [facility] Comment on above: Performed By: #### 2 4321-2 #### ANDREE TONY ([id number]) [facility]) [address] [place] [place] [address] Calcium [Mass/Vol] 8.5 mg/dL Low 8.6-10.3 [facility] Comment on above: Performed By: #### 2 4321-2 #### ANDREE TONY ([id number]) [facility]) [address] [facility] [address] Chloride [Moles/Vol] 106 mmol/L Normal 98-107 [facility] Comment on above: Performed By: #### 2 4321-2 #### ANDREE TONY ([id number]) [facility]) [address] [facility] [place] [address] CO2 [Moles/Vol] 25 mmol/L Normal 21-32 [facility] Comment on above: Performed By: #### 2 4321-2 #### ANDREE TONY ([id number]) [facility]) [address] [facility] [place] [address] Creatinine [Mass/Vol] 0.58 mg/dL Normal 0.50-1.05 [facility] Comment on above: Performed By: #### 2 432-2 #### ANDREE TONY ([id number]) [facility]) [address] [place] [address] GFR/1.73 sq M.predicted MDRD (S/P/Bld) [Vol rate/Area] mL/min/{1.73_m2} Normal >60 [facility] Comment on above: Result Comment: Calc ulations of estimated GFR are performed using the 2020 CKD-EPI Study Refit equation without the race variable for the IDMS-Traceable creatinine methods. https://jasn.asnjournals.org/content/early/ASN.4064362 988 Performed By: #### 2 4321-2 #### ANDREE TONY ([id number]) [facility]) [address] [facility] [address] Glucose [Mass/Vol] 87 mg/dL Normal 74-99 [facility] Comment on above: Performed By: #### 2 4321-2 #### ANDREE TONY ([id number]) [facility]) [address] [place] [address] Potassium [Moles/Vol] 5.4 mmol/L High 3.5-5.3 [facility] Comment on above: Result Comment: GEOVANI COTE HEMOLYSIS DETECTED. The result may be falsely elevated due to hemolysis or other interferents. Clinical correlation is recommended. Repeat testing may be considered. Performed By: #### 2 4321-2 #### ANDREE TONY ([id number]) [facility] ([facility]) [address] [place] [address] Sodium [Moles/Vol] 137 mmol/L Normal 136-145 [facility] Comment on above: Performed By: #### 2 4321-2 #### ANDREE TONY ([id number]) [facility]) [address] [place] [address] Urea nitrogen [Mass/Vol] 13 mg/dL Normal 6-23 [facility] Comment on above: Performed By: #### 2 4321-2 #### ANDREE TONY ([id number]) [facility] ([facility]) [address] [place] [address] Anion gap [Moles/Vol] 11 mmol/L 10 - 20 mmol/L [facility] Calcium [Mass/Vol] 8.5 mg/dL Low 8.6 - 10.3 mg/dL [facility] Chloride [Moles/Vol] 106 mmol/L 98 - 107 mmol/L [facility] CO2 [Moles/Vol] 25 mmol/L 21 - 32 mmol/L [facility] Creatinine [Mass/Vol] 0.58 mg/dL 0.50 - 1.05 mg/dL [facility] GFR/1.73 sq M.predicted MDRD (S/P/Bld) [Vol rate/Area] - PINF [facility] Comment on above: Calculations of henry mated GFR are performed using the 2020 CKD-EPI Study Refit equation without the race variable for the IDMS-Traceable creatinine methods. https://jasn.asnjournals.org/content//ASN.1157142 988 Glucose [Mass/Vol] 87 mg/dL 74 - 99 mg/dL [facility] Interpretation and review of laboratory results Abnormal [facility] Potassium [Moles/Vol] 5.4 mmol/L High 3.5 - 5.3 mmol/L [facility] Comment on above: MARKED HEMOLYSIS DET ECTED. The result may be falsely elevated due to hemolysis or other interferents. Clinical correlation is recommended. Repeat testing may be considered. Sodium [Moles/Vol] 137 mmol/L 136 - 145 mmol/L [facility] Urea nitrogen [Mass/Vol] 13 mg/dL 6 - 23 mg/dL [facility] CARDIAC CATHETERIZATION - CO RONARYon 10-26-2023 CARDIAC CATHETERIZATION - CORONARY [facility] Emergency Services Manager, [address] [place] [address] Cardiovascular Catheterization Report Patient Name: LIVIA JACOBO Performing Physician: Dawit Castrejon MD Study Date: 10/26/2023 Verifying Physician: Dawit Castrejon MD MRN/PID: [id number] Pot Builder/Co-scr ub: Ordering Provider: Dawit CASTREJON Date of /Age: 1210/17/1960 / 63 years Fellow: [id number] Jacob Garcia MD Gender: F Fellow: [id number] Bertha Santoyo MD Study: PCI - Percutaneous Coronary Intervention Additional Study: IVUS - Intravascular Ultrasound Indications: LIVIA JACOBO is a 63 year old female who presents with dyslipidemia, hypertension, prior percutaneous coronary intervention, prior myocardial infarction, coronary artery disease, peripheral artery disease, chronic pulmonary disease and a chest pain assessment of typical angina. Worsening angina. Appropriate Use Criteria: Intermediate-risk noninvasive findings with worsening/limiting symptoms; AUC score = 7. Medical History: Stress test performed: No. CTA performed: No. Agatston accessed: No. LVEF Assessed: Yes. LVEF = 60%. Frailty status of patient entering lab: 5 = Mildly frail. Procedure Description: After infiltration with 2% Lidocaine, the right femoral artery was cannulated with a modified Seldinger technique. Subsequently a 6 Omani sheath was placed retrograde in the right femoral artery. After infiltration with 2% Lidocaine, a second arterial access was obtained via the left femoral artery with a modified Seldinger technique and a 6 Omani sheath was placed. This second arterial access was obtained to allow for contralateral coronary injections. Selective coronary catheterization was performed using a 6 Fr catheter(s) exchanged over a guide wire to cannulate the coronary arteries. Additional catheter(s) used to visualize the coronary arteries were: EBU3.75, AL 0.75. Multiple injections of contrast were made into the left and right coronary arteries with angiograms recorded in multiple projections. After completion of the procedure, femoral artery angiography was performed. This demonstrated a common femoral artery puncture appropriate for closure. An Angio-Seal VIP 6F ([facility]) vascular closure device was placed per protocol. Femoral artery angiography was performed at the additional arterial access site. This demonstrated a common femoral artery puncture appropriate for closure. An Angio-Seal VIP 6F ([facility]) vascular closure device was placed per protocol. Coronary Angiography: The coronary circulation is right dominant. Left Main Coronary Artery: The left main coronary artery is a normal caliber vessel. The left main coronary artery showed mild irregularities. Left Anterior Descending Coronary Artery Distribution: The left anterior descending coronary artery is a normal caliber vessel. The LAD demonstrated mild irregularities. Circumflex Coronary Artery Distribution: The circumflex coronary artery is a normal caliber vessel. The circumflex revealed a previous patent stent. Right Coronary Artery Distribution: The right coronary artery is a normal caliber vessel. The mid right coronary artery showed 100% stenosis. Coronary Interventions: Angiography reveals a 100% stenosis of the proximal to mid right coronary artery coronary artery. Pre-intervention ANNITA flow was 0. Percutaneous coronary intervention was performed within the proximal to mid right coronary artery. The stenosis was successfully reduced from 100% to 0%. Post-intervention ANNITA flow was 3. Coronary Intervention Comments: After informed consent was obtained, the patient was brought to the cardiac catheterization laboratory. Timeout was performed. The right wrist and both groins were prepped and draped in usual fashion. 2% Xylocaine was infiltrated locally. Ultrasound guidance was used with a Seldinger technique to obtain right radial access. This was unsuccessful 3 times. The decision was made to defer to bifemoral access. Ultrasound guidance with a micropuncture kit was used to reduce a 6 Omani 45 cm sheath into the right femoral artery. Ultrasound guidance with a micropuncture kit was used to introduce a 6 Omani 45 cm sheath into the left femoral artery. Heparin was given for an ACT greater than 300 during the entire case. Patient is chronically on aspirin and Brilinta. A 6 Omani AL 0.75 guiding catheter was used engage the right coronary system. A 6 Omani EBU 3.75 guiding catheter was shortened and used to engage the left coronary system. A BMW wire was used to wire the circumflex artery. Beverley blue wire was used to advance a Corsair pro 135 and a 6 Omani trap liner into the RCA. A Mongo wire was used to wire the true lumen into the distal RCA. This was confirmed by retrograde angiography as well as wire movement. The microcatheter was advanced. Beverley blue wire was advanced into the PLB. Predilation wa (more content not included)... Normal [facility] CBC panel Auto (Bld)on 10-26 Erythrocyte distribution width (RBC) [Ratio] 13.3 % Normal 11.5-14.5 [facility] Comment on above: Performed By: #### 5 8410-2 #### ANDREE TONY ([id number]) [facility] ([facility]) [address] [place] [address] Hematocrit (Bld) [Volume fraction] 37.5 % Normal 36.0-46.0 [facility] Comment on above: Performed By: #### 5 8410-2 #### ANDREE TONY ([id number]) [facility] ([facility]) [address] [place] [address] Hemoglobin (Bld) [Mass/Vol] 13.0 g/dL Normal 12.0-16.0 [facility] Comment on above: Performed By: #### 5 8410-2 #### ANDREE TONY ([id number]) [facility] ([facility]) [address] [place] [address] MCH (RBC) [Entitic mass] 33.0 pg Normal 26.0-34.0 [facility] Comment on above: Performed By: #### 5 8410-2 #### ANDREE TONY ([id number]) [facility] ([facility]) [address] [place] [address] MCHC (RBC) [Mass/Vol] 34.7 g/dL Normal 32.0-36.0 [facility] Comment on above: Performed By: #### 5 8410-2 #### ANDREE TONY ([id number]) [facility] ([facility]) [address] [place] [address] MCV (RBC) [Entitic vol] 95 fL Normal 80-100 [facility] Comment on above: Performed By: #### 5 8410-2 #### ANDREE TONY ([id number]) [facility] ([facility]) [address] [place] [address] Nucleated RBC/100 WBC (Bld) [Ratio] 0.0 /100 WBCs Normal 0.0-0.0 [facility] Comment on above: Performed By: #### 5 8410-2 #### ANDREE TONY ([id number]) [facility] ([facility]) [address] [place] [address] Platelets (Bld) [#/Vol] 240 x10*3/uL Normal 150-450 [facility] Comment on above: Performed By: #### 5 8410-2 #### ANDREE TONY ([id number]) [facility] ([facility]) [address] [place] [address] RBC (Bld) [#/Vol] 3.94 x10*6/uL Low 4.00-5.20 [facility] Comment on above: Performed By: #### 5 8410-2 #### ANDREE TONY ([id number]) [facility] ([facility]) [address] [place] [address] WBC (Bld) [#/Vol] 4.4 x10*3/uL Normal 4.4-11.3 [facility] Comment on above: Performed By: #### 5 8410-2 #### ANDREE TONY ([id number]) [facility] ([facility]) [address] [place] [address] Erythrocyte distribution width (RBC) [Ratio] 13.3 % 11.5 - 14.5 % [facility] Hematocrit (Bld) [Volume fraction] 37.5 % 36.0 - 46.0 % [facility] Hemoglobin (Bld) [Mass/Vol] 13.0 g/dL 12.0 - 16.0 g/dL [facility] Interpretation and review of laboratory results Abnormal [facility] MCH (RBC) [Entitic mass] 33.0 pg 26.0 - 34.0 pg [facility] MCHC (RBC) [Mass/Vol] 34.7 g/dL 32.0 - 36.0 g/dL [facility] MCV (RBC) [Entitic vol] 95 fL 80 - 100 fL [facility] Nucleated RBC/100 WBC (Bld) [Ratio] 0.0 % [facility] Platelets (Bld) [#/Vol] 240 10*3/uL [facility] RBC (Bld) [#/Vol] 3.94 10*6/uL Low [facility] WBC (Bld) [#/Vol] 4.4 10*3/uL [facility] Cardiac catheterization stud yon 10-26-2023 [facility], [address] [place] [address] Cardiovascular Catheterization Report Patient Name: LIVIA JACOBO Performing Physician: Dawit Castrejon MD Study Date: 10/26/2023 Verifying Physician: Dawit Castrejon MD MRN/PID: [id number] Pot Builder/Co-scr ub: Ordering Provider: Dawit CASTREJON Date of /Age: 1210/17/1960 / 63 years Fellow: [id number] Jacob Garcia MD Gender: F Fellow: [id number] Bertha Santoyo MD Study: PCI - Percutaneous Coronary Intervention Additional Study: IVUS - Intravascular Ultrasound Indications: LIVIA JACOBO is a 63 year old female who presents with dyslipidemia, hypertension, prior percutaneous coronary intervention, prior myocardial infarction, coronary artery disease, peripheral artery disease, chronic pulmonary disease and a chest pain assessment of typical angina. Worsening angina. Appropriate Use Criteria: Intermediate-risk noninvasive findings with worsening/limiting symptoms; AUC score = 7. Medical History: Stress test performed: No. CTA performed: No. Agatston accessed: No. LVEF Assessed: Yes. LVEF = 60%. Frailty status of patient entering lab: 5 = Mildly frail. Procedure Description: After infiltration with 2% Lidocaine, the right femoral artery was cannulated with a modified Seldinger technique. Subsequently a 6 Omani sheath was placed retrograde in the right femoral artery. After infiltration with 2% Lidocaine, a second arterial access was obtained via the left femoral artery with a modified Seldinger technique and a 6 Omani sheath was placed. This second arterial access was obtained to allow for contralateral coronary injections. Selective coronary catheterization was performed using a 6 Fr catheter(s) exchanged over a guide wire to cannulate the coronary arteries. Additional catheter(s) used to visualize the coronary arteries were: EBU3.75, AL 0.75. Multiple injections of contrast were made into the left and right coronary arteries with angiograms recorded in multiple projections. After completion of the procedure, femoral artery angiography was performed. This demonstrated a common femoral artery puncture appropriate for closure. An Angio-Seal VIP 6F ([facility]) vascular closure device was placed per protocol. Femoral artery angiography was performed at the additional arterial access site. This demonstrated a common femoral artery puncture appropriate for closure. An Angio-Seal VIP 6F ([facility]) vascular closure device was placed per protocol. Coronary Angiography: The coronary circulation is right dominant. Left Main Coronary Artery: The left main coronary artery is a normal caliber vessel. The left main coronary artery showed mild irregularities. Left Anterior Descending Coronary Artery Distribution: The left anterior descending coronary artery is a normal caliber vessel. The LAD demonstrated mild irregularities. Circumflex Coronary Artery Distribution: The circumflex coronary artery is a normal caliber vessel. The circumflex revealed a previous patent stent. Right Coronary Artery Distribution: The right coronary artery is a normal caliber vessel. The mid right coronary artery showed 100% stenosis. Coronary Interventions: Angiography reveals a 100% stenosis of the proximal to mid right coronary artery coronary artery. Pre-intervention ANNITA flow was 0. Percutaneous coronary intervention was performed within the proximal to mid right coronary artery. The stenosis was successfully reduced from 100% to 0%. Post-intervention ANNITA flow was 3. Coronary Intervention Comments: After informed consent was obtained, the patient was brought to the cardiac catheterization laboratory. Timeout was performed. The right wrist and both groins were prepped and draped in usual fashion. 2% Xylocaine was infiltrated locally. Ultrasound guidance was used with a Seldinger technique to obtain right radial access. This was unsuccessful 3 times. The decision was made to defer to bifemoral access. Ultrasound guidance with a micropuncture kit was used to reduce a 6 Omani 45 cm sheath into the right femoral artery. Ultrasound guidance with a micropuncture kit was used to introduce a 6 Omani 45 cm sheath into the left femoral artery. Heparin was given for an ACT greater than 300 during the entire case. Patient is chronically on aspirin and Brilinta. A 6 Omani AL 0.75 guiding catheter was used engage the right c (more content not included)... Bandar Edwards MD - 10/26/2023 [facility] Emergency Services Manager, [address] [place] [id number] Cardiovascular Catheterization Report Patient Name: LIVIA JACOBO Performing Physician: [id number] Castrejon MD Study Date: 10/26/2023 Verifying Physician: Dawit Castrejon MD MRN/PID: [id number] Pot Builder/Co-scr ub: Ordering Provider: [id number] CASTREJON Date of /Age: 1210/17/1960 / 63 years Fellow: [id number] Jacob Garcia MD Gender: F Fellow: [id number] Bertha Santoyo MD Study: PCI - Percutaneous Coronary Intervention Additional Study: IVUS - Intravascular Ultrasound Indications: LIVIA JACOBO is a 63 year old female who presents with dyslipidemia, hypertension, prior percutaneous coronary intervention, prior myocardial infarction, coronary artery disease, peripheral artery disease, chronic pulmonary disease and a chest pain assessment of typical angina. Worsening angina. Appropriate Use Criteria: Intermediate-risk noninvasive findings with worsening/limiting symptoms; AUC score = 7. Medical History: Stress test performed: No. CTA performed: No. Agatston accessed: No. LVEF Assessed: Yes. LVEF = 60%. Frailty status of patient entering lab: 5 = Mildly frail. Procedure Description: After infiltration with 2% Lidocaine, the right femoral artery was cannulated with a modified Seldinger technique. Subsequently a 6 Omani sheath was placed retrograde in the right femoral artery. After infiltration with 2% Lidocaine, a second arterial access was obtained via the left femoral artery with a modified Seldinger technique and a 6 Omani sheath was placed. This second arterial access was obtained to allow for contralateral coronary injections. Selective coronary catheterization was performed using a 6 Fr catheter(s) exchanged over a guide wire to cannulate the coronary arteries. Additional catheter(s) used to visualize the coronary arteries were: EBU3.75, AL 0.75. Multiple injections of contrast were made into the left and right coronary arteries with angiograms recorded in multiple projections. After completion of the procedure, femoral artery angiography was performed. This demonstrated a common femoral artery puncture appropriate for closure. An Angio-Seal VIP 6F ([facility]) vascular closure device was placed per protocol. Femoral artery angiography was performed at the additional arterial access site. This demonstrated a common femoral artery puncture appropriate for closure. An Angio-Seal VIP 6F ([facility]) vascular closure device was placed per protocol. Coronary Angiography: The coronary circulation is right dominant. Left Main Coronary Artery: The left main coronary artery is a normal caliber vessel. The left main coronary artery showed mild irregularities. Left Anterior Descending Coronary Artery Distribution: The left anterior descending coronary artery is a normal caliber vessel. The LAD demonstrated mild irregularities. Circumflex Coronary Artery Distribution: The circumflex coronary artery is a normal caliber vessel. The circumflex revealed a previous patent stent. Right Coronary Artery Distribution: The right coronary artery is a normal caliber vessel. The mid right coronary artery showed 100% stenosis. Coronary Interventions: Angiography reveals a 100% stenosis of the proximal to mid right coronary artery coronary artery. Pre-intervention ANNITA flow was 0. Percutaneous coronary intervention was performed within the proximal to mid right coronary artery. The stenosis was successfully reduced from 100% to 0%. Post-intervention ANNITA flow was 3. Coronary Intervention Comments: After informed consent was obtained, the patient was brought to the cardiac catheterization laboratory. Timeout was performed. The right wrist and both groins were prepped and draped in usual fashion. 2% Xylocaine was infiltrated locally. Ultrasound guidance was used with a Seldinger technique to obtain right radial access. This was unsuccessful 3 times. The decision was made to defer to bifemoral access. Ultrasound guidance with a micropuncture kit was used to reduce a 6 Omani 45 cm sheath into the right femoral artery. Ultrasound guidance with a micropuncture kit was used to introduce a 6 Omani 45 cm sheath into the left femoral artery. Heparin was given for an ACT greater than 300 during the entire case. Patient is chronically on aspirin and Brilinta. A 6 Omani AL 0.75 guiding catheter was used engage the right coronary system. A 6 Omani EBU 3.75 guiding catheter was shortened and used to engage the left coronary system. A BMW wire was used to wire the circumflex artery. Beverley blue wire was used to advance a Corsair pro 135 and a 6 Omani trap liner into the RCA. A Mongo wire was used to wire the true lumen into the distal RCA. This was confirmed by retrograde angiography (more content not included)... [facility] Work Phone: Cardiac catheterization stud yOrdered By: Bandar Castrejon on 10-26-2023 [facility] Work Phone: Coagulation tissue factor in ducedon 10-26-2023 PT Coag (PPP) [Time] 10.8 s Normal 9.8-12.8 [facility] Comment on above: Performed By: #### 5 902-2 #### ANDREE TONY ([id number]) [facility] ([facility]) [address] [place] [address] ECG 12-LEADon 10-26-2023 ECG 12-LEAD Ventricular Rate 67 Atrial Rate 67 P-R Interval 146 QRS Duration 84 Q-T Interval 448 QTC Calculation(Bazett) 473 P Guilford 66 R Guilford 41 T Guilford 91 QRS Count 11 Q Onset 225 P Onset 152 P Offset 211 T Offset 449 QTC Fredericia 465 Diagnosis Normal sinus rhythm ST & T wave abnormality, consider anterolateral ischemia Prolonged QT Abnormal ECG Confirmed by Omero Rodriguez ([id number]) on 10/28/2023 3:51:15 PM Normal [facility] ECG 12-LEAD Ventricular Rate 75 Atrial Rate 75 P-R Interval 140 QRS Duration 82 Q-T Interval 396 QTC Calculation(Bazett) 442 P Guilford 58 R Guilford 31 T Guil[place] 181 QRS Count 13 Q Onset 212 P Onset 142 P Offset 203 T Offset 410 QTC Fredericia 426 Diagnosis Normal sinus rhythm T wave abnormality, consider inferolateral ischemia Abnormal ECG Confirmed by Omero Rodriguez ([id number]) on 10/28/2023 3:51:10 PM Normal [facility] PT Coag (PPP) [Time]on 10-26 INR Coag (PPP) [Relative time] 1.0 Normal 0.9-1.1 [facility] Comment on above: Performed By: #### 5 902-2 #### ANDREE CHAVO ([id number]) [facility] ([facility]) [address] [place] [address] PT Coag (PPP) [Time]Ordered By: Jamil Fine on 10-26-2023 INR Coag (PPP) [Relative time] 1.0 {INR} 0.9 - 1.1 [facility] Interpretation and review of laboratory results Normal [facility] Protime-INROrdered By: Frederick Franklin on 10-26-2023 PT Coag (PPP) [Time] 10.8 s [facility] Consent for Treatmenton 10-14 Consent for Treatment [id number] Normal [facility] US Carotid Duplex Bilateralo n 10-25-2023 US Carotid Duplex Bilateral Exam Date/Time: 10/25/2023 10:00 EST Reason for Exam: R09.89;Other (please specify) Report IMPRESSION: STENOSIS OF RIGHT AND LEFT INTERNAL CAROTID ARTERIES IS ESTIMATED LESS THAN 50%. CLINICAL HISTORY: R09.89. Bruit. COMMENT: There are scattered echoic plaques involving the common carotid arteries and internal carotid arteries bilaterally. There is antegrade blood flow in the right and left vertebral arteries in the neck. On Doppler images, the peak systolic velocity measurements in centimeters per second are as follows: Right proximal common carotid artery is 67.7 / 14.3, right distal common carotid artery is 77.7 / 18.0, right proximal internal carotid artery is 67.7 / 21.7, right mid internal carotid artery is 72.7 / 24.2, right distal internal carotid artery is 69.6 / 24.9, right external carotid artery is 100.0 cm/s, left proximal common carotid artery is 60.9 / 14.9, left distal common carotid artery is 73.3 / 20.5, left proximal internal carotid artery is 65.9 / 21.7, left mid internal carotid artery is 73.9 / 23.6, left distal internal carotid artery is 81.4 / 28.6, left external carotid artery is 72.7 cm/s. The peak systolic internal carotid to common carotid artery ratio on the right is 0.9 and on the left is 1.1. Optimization of duplex velocity criteria for diagnosis of internal carotid artery (ICA) stenosis: A report of the [employer]ters[employer]reditation Commission (IAC) Vascular Testing Division Carotid Diagnostic Criteria Committee. Vascular Medicine 2020; https://journals.sa gepub.com/doi/full/ 10.1177/7581332C151 978853 Ordering Provider: Tiffany Jansen FINAL REPORT Dictated: 10/25/2023 4:07 pm Edmund Arce M.D. Signed (Electronic Signature): 10/25/2023 4:07 pm Signed by: Edmund Arce M.D. Transcribed by: JEANINE Technologist: NORAH Technical Comments Velocities Right Vert. Antegrade Yes Velocities Left Vert. Antegrade Yes Normal [facility] No Panel Informationon 10-24 Study performed outside the system. Official study report is not available here and may be obtained from the performing facility. [email or web address] No Panel InformationOrdered By: Documentation Systemgenerated on 10-24-2023 [facility] Work Phone: Outside Progress Noteon Outside Progress Note [id number] Normal [facility] Heart and Vascular Office/Cl inic Noteon 10-13-2023 Heart and Vascular Office/Clinic Note Chief Complaint s/p PCI 09/07/23 History of Present Illness Livia Jacobo is a 62-year-old female who presents today for a follow-up evaluation of hypertension, hyperlipidemia, recent SD, primary PCI, ischemic cardiomyopathy, and CUSTOM FURRIER of the RCA. She is accompanied by an adult female. The patient had a recent virtual visit with Dr. Gonzalez, who reviewed her images and discussed the possibility of fixing the right coronary artery. The patient is inquiring about the potential need for an overnight stay during the procedure, which Dr. Gonzalez intends to perform via both the wrist and groin. The patient previously experienced bruising and lumps on the left side of her groin after a similar procedure. The adult female notes improvement in the patient's condition but mentions that the patient still sleeps excessively. She has a history of depression following the heart attack. The patient is currently taking Zyprexa. Dyspnea persists, and the patient is on multiple blood pressure medications. The adult female reports episodes of dizziness, during which the patient's blood pressure drops to the 90s over the 50s. Despite consistent blood pressure readings, the patient recently recorded 114/[address] Gonzalez recommends physical therapy, but the patient has reservations. The patient underwent eight weeks of physical therapy previously, resulting in improvement. The adult female expresses confusion about the need for spine surgery, as the patient's spine issues involve two bones rubbing together, and Dr. Flores recommends consultation with a neurologist. The patient has a family history of heart disease, specifically mentioning her father's history of triple bypass surgery and bilateral carotid artery clearing. Review of Systems Review of Systems Constitutional: no fever, no sweats, no weakness Skin: no rash, no lesions, no bruising/petechiae ENMT: no sore throat, no congestion, no hoarseness Respiratory: positive for shortness of breath, no cough, no orthopnea, no wheezing Cardiovascular: no chest pain, no palpitations, no edema Gastrointestinal: no nausea, no vomiting, no diarrhea, no GI bleeding Genitourinary: no anuria/oliguria no hematuria Musculoskeletal: no back pain, no trauma Neurologic: no headache, positive for dizziness, no numbness, no weakness Psychiatric: no sleeping problems, no irritability, no anxiety/depression. Heme/Lymph: no bleeding tendency, no bruising tendency Allergy/Immunologic : no recurrent infections, no impaired immunity Additional ROS info: Except as noted in the above Review of Systems and in the History of Present Illness all other systems have been reviewed and are negative or noncontributory Physical Exam Vitals & Measurements HR: 85(Peripheral) BP: 140/88 SpO2: 95% HT: 61 in HT: 154 cm WT: 72.3 kg WT: 159.06 lb BMI: 30.49 General: alert, no acute distress Skin: warm, dry intact Head: atraumatic, normocephalic Neck: trachea midline, no JVD, no bruit Eye: normal conjunctiva, sclera clear ENMT: oral mucosa moist Cardiovascular: regular rate and rhythm, no murmur, normal peripheral perfusion Respiratory: lungs CTA, respirations non labored Chest wall: no deformity. Gastrointestinal: soft, non-distended, no tenderness, no guarding. Back: no tenderness, normal ROM, normal alignment. Extremities: no edema, no deformity, no trauma Neurological: oriented x 4, LOC appropriate for age, sensation equal & normal bilaterally, speech normal Psychiatric: cooperative, affect appropriate for age, normal judgement, normal psychiatric thoughts. Assessment/Plan Livia Jacobo is a 62-year-old female with hypertension, hyperlipidemia, recent SD, primary PCI, ischemic cardiomyopathy, and CUSTOM FURRIER of the RCA. 1. CAD CAD with known CUSTOM FURRIER of RCA. I was unable to cross CUSTOM FURRIER. We are sending her to Dr. Fofana. She has an appointment with him, and there is a plan for this to be done. She is on dual-antiplatelet therapy. She is on isosorbide and Ranexa already, controlling her angina. 2. Carotid Bruit We will get a carotid duplex for a left carotid bruit. We will decrease her losartan, as she has been having some dizziness. 3. Obesity The standard range for ages 18 and older is >=18.5 and < 25 kg/m2. Your BMI today was above this range, this falls in the overweight to obese category and there are medical benefits to weight loss. We can offer counselling, referral, and/or medical support in addressing this problem. Your BMI and weight management will be followed at subsequent visits. Follow-up in 3 months. Portions of this record may have been created with voice recognition artificial intelligence software, specifically AmberAds, Attributor and or Vserv. Substitutions may have occurred due to the inherent limitations of voice recognition and artificial intelligence software. Documentation services were performed after patient or guardian consented to allow [employer] to r (more content not included)... Normal [facility] Comment on above: Result Comment: Elec tronically Signed By: Sheila POSEY, Tiffany Chavarria\.br\Date and Time Signed: 10/13/23 19:47 EST\.br\Electronically Co-Signed By: Jenn Bañuelos\.br\Date and Time Co-Signed: 10/13/23 17:27 EST Physician Orderon 10-13-2023 Physician Order [id number] Normal [facility] Provider Letteron 10-10-2023 Provider Letter October 10, 2023 LIVIA JACOBO [address] [place] [address] : 1960 Dear Livia , We have been trying to reach you with no success. It is important that you return our call regarding your lab results upon receiving this letter. Also, at the time of your call, please provide us with your current information. We also need an updated phone number for your emergency contact. Thank you for your prompt attention to this matter. Sincerely, [facility] [address] [address] [facility] Heart and Vascular Office/Cl inic Noteon 10-08-2023 Heart and Vascular Office/Clinic Note Chief Complaint f/u SOB/chest pain History of Present Illness Livia Jacobo is a 62-year-old female who presents today for a 6 week follow-up for her chest pain and SOB. She reports of still experiencing sharp pains and mild sensation of heaviness. She denies having similar symptoms from her previous myocardial infarction. She describes her myocardial infarction as a red triangle around and a burning lava sensation. She is experiencing dyspnea. She is taking isosorbide, and it has not helped with her chest pain. When she had her previous catheterization, she had pain when it went further up. She has a slight abnormality in her EKG today, but it does not require that patient to be hospitalized. She does not present with chest pain currently. Review of Systems Constitutional: no fever, no sweats, no weakness Skin: no rash, no lesions, no bruising/petechiae ENMT: no sore throat, no congestion, no hoarseness Respiratory: no shortness of breath, no cough, no orthopnea, no wheezing Cardiovascular: no chest pain, no palpitations, no edema Gastrointestinal: no nausea, no vomiting, no diarrhea, no GI bleeding Genitourinary: no anuria/oliguria no hematuria Musculoskeletal: no back pain, no trauma Neurologic: no headache, no dizziness, no numbness, no weakness Psychiatric: no sleeping problems, no irritability, no anxiety/depression. Heme/Lymph: no bleeding tendency, no bruising tendency Allergy/Immunologic : no recurrent infections, no impaired immunity Additional ROS info: Except as noted in the above Review of Systems and in the History of Present Illness all other systems have been reviewed and are negative or noncontributory Physical Exam Vitals & Measurements HR: 89(Peripheral) BP: 118/72 SpO2: 95% HT: 61 in HT: 154 cm WT: 73.2 kg WT: 161.04 lb BMI: 30.87 General: alert, no acute distress Skin: warm, dry intact Head: atraumatic, normocephalic Neck: trachea midline, no JVD, no bruit Eye: normal conjunctiva, sclera clear ENMT: oral mucosa moist Cardiovascular: regular rate and rhythm, no murmur, normal peripheral perfusion Respiratory: lungs CTA, respirations non labored Chest wall: no deformity. Gastrointestinal: soft, non-distended, no tenderness, no guarding. Back: no tenderness, normal ROM, normal alignment. Extremities: no edema, no deformity, no trauma Neurological: oriented x 4, LOC appropriate for age, sensation equal & normal bilaterally, speech normal Psychiatric: cooperative, affect appropriate for age, normal judgement, normal psychiatric thoughts. Assessment/Plan Livia Jacobo is a 62-year-old female with a history of myocardial infarction and primary PCI, STEMI, hypertension, and hyperlipidemia. She is still having ongoing symptoms. She does have CUSTOM FURRIER of the RCA, some inferolateral ST-T wave changes. Chest pressure (R07.89: Other chest pain) She showed no improvement with Imdur. We will schedule her for PCI of the CUSTOM FURRIER of the RCA at [facility] with me. Follow up in 6 weeks in [place]. Portions of this record may have been created with voice recognition artificial intelligence software, specifically AmberAds, Attributor and or Vserv. Substitutions may have occurred due to the inherent limitations of voice recognition and artificial intelligence software. Documentation services were performed after patient or guardian consented to allow [employer] to record this visit. DESTINY early childhood education specialist and provider reviewed before signing. DESTINY: George Reece Follow-up No qualifying data available Problem List/Past Medical History Ongoing Acute ST elevation myocardial infarction (STEMI) Anxiety and depression COPD (chronic obstructive pulmonary disease) Current smoker History of total abdominal hysterectomy Hospital discharge follow-up HTN (hypertension), benign Polyneuropathy Primary insomnia RLS (restless legs syndrome) Walker as ambulation aid Historical No qualifying data Procedure/Surgical History PCI - Percutaneous coronary intervention (07/09/2023), Angioplasty, Gallbladder, Hysterectomy. Medications Albuterol (Eqv-ProAir HFA) 90 mcg/inh inhalation aerosol, 2 puff(s), Inhalation, q4hr alprazolam 1 mg Tab, 1 mg= 1 tab(s), Oral, QID, PRN amLODIPine 5 mg Tab, 5 mg= 1 tab(s), Oral, Daily, 1 refills aspirin 81 mg Oral EC Tab, 81 mg= 1 tab(s), Oral, Daily atorvastatin 40 mg Tab, 80 mg= 2 tab(s), Oral, Bedtime Coreg 3.125 mg Tab, 3.125 mg= 1 tab(s), Oral, BID, 1 refills Effexor XR 150 mg Cap-ER Handicap Placard, 5 years., See Instructions isosorbide mononitrate 30 mg ER Tab, 30 mg= 1 tab(s), Oral, Daily, 6 refills Lamictal 25 mg Tab losartan 100 mg Tab, 100 mg= 1 tab(s), Oral, Daily, 1 refills nitroglycerin 0.4 mg sublingual Tab, 0.4 mg= 1 tab(s), SubLingual, q5min, PRN quetiapine, 400 mg, Oral, qPM ropinirole 1 mg Tab, 1 mg= 1 tab(s), Oral, Daily, 1 refills ticagrelor 90 mg oral tablet, 90 mg= 1 tab(s), Oral, B (more content not included)... Normal [facility] Comment on above: Result Comment: Elec tronically Signed By: Sheila POSEY, Tiffany Chavarria\.br\Date and Time Signed: 10/08/23 13:39 EST\.br\Electronically Co-Signed By: George Newell\.br\Date and Time Co-Signed: 09/01/23 16:29 EDT Heart and Vascular Office/Clinic Note Chief Complaint heart cath f/u History of Present Illness Livia Jacobo is a 62-year-old female who presents today for a follow-up evaluation of a recent SD in the circumflex territory. She does have a CUSTOM FURRIER of the RCA. She is accompanied by an adult female. She is doing well. She experiences dyspnea upon exertion and intermittent angina. She rates her pain as a 4 out of 10. She describes the pain as a sharp pain. The pain does not feel similar to her heart pain prior to her SD. The heart pain she had prior to her SD went like a rectangle around and then up and down her arm. Her right coronary artery has a complete blockage and collateralized then rerouted. She has a bad back and she needs to go to [facility] on 07/25/2023 for possible surgery. She had a shanna placed in her back and underwent a double fusion. She is on Brilinta and aspirin. Review of Systems Constitutional: no fever, no sweats, no weakness Skin: no rash, no lesions, no bruising/petechiae ENMT: no sore throat, no congestion, no hoarseness Respiratory: Positive for shortness of breath, no cough, no orthopnea, no wheezing Cardiovascular: Positive for chest pain, no palpitations, no edema Gastrointestinal: no nausea, no vomiting, no diarrhea, no GI bleeding Genitourinary: no anuria/oliguria no hematuria Musculoskeletal: no back pain, no trauma Neurologic: no headache, no dizziness, no numbness, no weakness Psychiatric: no sleeping problems, no irritability, no anxiety/depression. Heme/Lymph: no bleeding tendency, no bruising tendency Allergy/Immunologic : no recurrent infections, no impaired immunity Additional ROS info: Except as noted in the above Review of Systems and in the History of Present Illness all other systems have been reviewed and are negative or noncontributory Physical Exam Vitals & Measurements HR: 74(Peripheral) BP: 118/78 SpO2: 96% HT: 61 in HT: 154 cm WT: 75.2 kg WT: 165.44 lb BMI: 31.71 General: alert, no acute distress Skin: warm, dry intact Head: atraumatic, normocephalic Neck: trachea midline, no JVD, no bruit Eye: normal conjunctiva, sclera clear ENMT: oral mucosa moist Cardiovascular: regular rate and rhythm, no murmur, normal peripheral perfusion Respiratory: lungs CTA, respirations non labored Chest wall: no deformity. Gastrointestinal: soft, non-distended, no tenderness, no guarding. Back: no tenderness, normal ROM, normal alignment. Extremities: no edema, no deformity, no trauma Neurological: oriented x 4, LOC appropriate for age, sensation equal & normal bilaterally, speech normal Psychiatric: cooperative, affect appropriate for age, normal judgement, normal psychiatric thoughts. Assessment/Plan Livia Jacobo is a 62-year-old female with recent SD in the circumflex territory. She does have a CUSTOM FURRIER of the RCA. She is still having some angina, but not nearly as bad as it was before her heart attack. We are going to give her some isosorbide and we are trying medical for now. It is amenable to a possible PCI if we are unable to achieve resolution of symptoms with medication. Follow up in 6 weeks in [place]. Portions of this record may have been created with voice recognition artificial intelligence software, specifically AmberAds, Attributor and or Vserv. Substitutions may have occurred with voice recognition and artificial intelligence software. Documentation services were performed after patient or guardian consented to allow Fonmatch to record this visit. DESTINY early childhood education specialist and provider reviewed before signing. DESTINY: Qualys Follow-up No qualifying data available Problem List/Past Medical History Ongoing Acute ST elevation myocardial infarction (STEMI) Anxiety and depression COPD (chronic obstructive pulmonary disease) Current smoker History of total abdominal hysterectomy Hospital discharge follow-up HTN (hypertension), benign Polyneuropathy Primary insomnia RLS (restless legs syndrome) Walker as ambulation aid Historical No qualifying data Procedure/Surgical History Angioplasty, Gallbladder, Hysterectomy. Medications Albuterol (Eqv-ProAir HFA) 90 mcg/inh inhalation aerosol, 2 puff(s), Inhalation, q4hr alprazolam 1 mg Tab, 1 mg= 1 tab(s), Oral, QID, PRN amLODIPine 5 mg Tab, 5 mg= 1 tab(s), Oral, Daily, 1 refills aspirin 81 mg Oral EC Tab, 81 mg= 1 tab(s), Oral, Daily atorvastatin 40 mg Tab, 80 mg= 2 tab(s), Oral, Bedtime Coreg 3.125 mg Tab, 3.125 mg= 1 tab(s), Oral, BID, 1 refills Effexor XR 150 mg Cap-ER Handicap Placrock, 5 years., See Instructions isosorbide mononitrate 30 mg ER Tab, 30 mg= 1 tab(s), Oral, qAM, 3 refills Lamictal 25 mg Tab losartan 100 mg Tab, 100 mg= 1 tab(s), Oral, Daily, 1 refills nitroglycerin 0.4 mg sublingual Tab, 0.4 mg= 1 tab(s), SubLingual, q5min, PRN quetiapine, 400 mg, Oral, qPM ropinirole 1 mg Tab, 1 mg= 1 tab(s), Oral, Daily, 1 refills ticagrelor 90 mg oral tablet, 90 mg= 1 (more content not included)... Normal [facility] Comment on above: Result Comment: Elec tronically Signed By: Tiffany Jansen MD\.br\Date and Time Signed: 10/08/23 09:58 EST\.br\Electronically Co-Signed By: George Newell\.br\Date and Time Co-Signed: 07/21/23 16:21 EDT\.br\Electronically Co-Signed By: George Newell\.br\Date and Time Co-Signed: 07/21/23 16:41 EDT Ambulatory Visit Summaryon 11-29-2022 Ambulatory Visit Summary LIVIA JACOBO :1960 Visit Date:09/29/2023 Ambulatory Visit Instructions Your Diagnosis Major depressive disorder, recurrent, mild Atherosclerosis of aorta History of ST elevation myocardial infarction (STEMI) BMI 30.0-30.9,adult Smoker Walker as ambulation aid Polyneuropathy Encounter for immunization Fatigue Your Care Team Attending Physician - Dorie Luis MD Primary Care Physician - Dorie Luis MD This Is Your Medications List [facility] Prescription (Lissicap Lotus, 5 years.) albuterol (Albuterol (Eqv-ProAir HFA) 90 mcg/inh inhalation aerosol) alprazolam (alprazolam 1 mg Tab) amlodipine (amLODIPine 5 mg Tab) aspirin (aspirin 81 mg Oral EC Tab) atorvastatin (atorvastatin 40 mg Tab) carvedilol (Coreg 3.125 mg Tab) fluticasone/umeclid inium/vilanterol (Trelegy Ellipta 100 mcg-62.5 mcg-25 mcg inhalation powder) isosorbide mononitrate (isosorbide mononitrate 30 mg ER Tab) lamotrigine (Lamictal 25 mg Tab) losartan (losartan 100 mg Tab) nitroglycerin (nitroglycerin 0.4 mg sublingual Tab) olanzapine (ZyPREXA 5 mg Tab) quetiapine ranolazine (Ranexa 500 mg Tab-ER) ropinirole (ropinirole 1 mg Tab) ticagrelor (ticagrelor 90 mg oral tablet) trazodone (traZODONE 100 mg Tab) venlafaxine (Effexor XR 150 mg Cap-ER) Procedures Performed PCI - Percutaneous coronary intervention (07/09/2023), Angioplasty, Gallbladder, Hysterectomy. Discharge Vitals Heart Rate (Peripheral) 78 Respiratory Rate 18 Blood Pressure 110/68 Height 154 cm Height 61 in Weight 73.1 kg Weight 160.82 lb BMI 30.82 What to do next Scheduled Follow-Up Appointments 2022 2:00 PM EST With: Tiffany Jansen MD Where: [facility] [place] 2022 1:45 PM EST With: Tiffany Jansen MD Where: [facility] [place] Tuesday 4:00 PM EST With: Dorie Luis MD Where: [address] \.br\ Medications\.br\ What How Much When Why Instructions\.br\ Unchanged albuterol (Albuterol (Eqv-ProAir HFA) 90 mcg/ inh inhalation aerosol) 2 Puffs Inhalation Every 4 hours as needed \.br\ Unchanged alprazolam (alprazolam 1 mg Tab) 1 Tablets By Mouth 4 times a day as needed for for anxiety\.br\ Unchanged amlodipine (amLODIPine 5 mg Tab) 1 Tablets By Mouth Every day\.br\ Unchanged aspirin (aspirin 81 mg Oral EC Tab) 1 Tablets By Mouth Every day\.br\ Unchanged atorvastatin (atorvastatin 40 mg Tab) 2 Tablets By Mouth At bedtime\.br\ Unchanged carvedilol (Coreg 3.125 mg Tab) 1 Tablets By Mouth 2 times a day\.br\ Unchanged fluticasone/ umeclidinium/ vilanterol (Trelegy Ellipta 100 mcg-62.5 mcg-25 mcg inhalation powder) 1 Puffs Inhalation Every day\.br\ Unchanged isosorbide mononitrate (isosorbide mononitrate 30 mg ER Tab) 1 Tablets By Mouth Every day Duration: 30 Days\.br\ Unchanged lamotrigine (Lamictal 25 mg Tab) 3 tablets at bedtime \.br\ Unchanged losartan (losartan 100 mg Tab) 1 Tablets By Mouth Every day\.br\ Unchanged Misc Prescription (Handicap Lotus, 5 years.) See instructions Anxiety and depression Depression, unspecified HTN (hypertension), benign RLS (restless legs syndrome) Chronic obstructive pulmonary disease, unspecified COPD type Primary insomnia Current smoker Polyneuropathy Walker as ambulation aid Adult BMI 33.0-33.9 kg/sq m Handicap Lotus, 5 years. 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 For: Major depressive disorder, recurrent, mild, Atherosclerosis of aorta, History of ST elevation myocardial infarction (STEMI), BMI 30.0-30.9,adult, Smoker\.br\ influenza virus vaccine, inactivated, IntraMuscular\.br\ Allergies\.br\ BuSpar (Migraine, Unknown)\.br\ sulfa drugs (Rash)\.br\ Lyrica (Feels drunk, falls down)\.br\ Nicotine Patch (Rash)\.br\ Tape (Sensitive)\.br\ sulfamethoxazole (Unknown (origin))\.br\ Problems\.br\ Ongoing - Any problem that you are currently receiving treatment for.\.br\ Anxiety and depression\.br\ Atherosclerosis of aorta\.br\ COPD (chronic obstructive pulmonary disease)\.br\ Current smoker\.br\ Fatigue\.br\ History of ST elevation myocardial infarction (STEMI)\.br\ History of total abdominal hysterectomy\.br\ HTN (hypertension), benign\.br\ Major depressive disorder, recurrent, mild\.br\ Polyneuropathy\.br \ Primary insomnia\.br\ RLS (restless legs syndrome)\.br\ Walker as ambulation aid\.br\ Historical - Any problem that you are no longer receiving treatment for.\.br\ Acute ST elevation myocardial infarction (STEMI)\.br\ Patient Survey\.br\ You may receive a survey via text or e-mail asking about your office visit. Please share your experience with us by completing your survey. We appreciate your feedback and thank you for choosing us for your care.\.br\ \.br\ [facility] Auto Diffon 09-29-2023 Basophils/100 WBC (Bld) 0.6 % Normal 0.0-2.0 [facility] Comment on above: Order Comment: Order Added by Discern Expert. Performed By: #### 2 [id number], 8932006, 4223455, [id number], 89004208, 8880706, 84193330, 8545306, 3708423 #### [facility] [address] [place] [address] Basophils/Leukocytes Auto (Bld) [Pure # fraction] 0.0 E9/L Normal 0.0-0.2 [facility] Comment on above: Order Comment: Order Added by Discern Expert. Performed By: #### 2 007360, 0958164, 2522827, [id number], 40719471, 3327330, 68784185, 1455077, 9972579 #### [facility] [address] [place] [address] Eosinophils/100 WBC (Bld) 2.2 % Normal 0.0-8.0 [facility] Comment on above: Order Comment: Order Added by Discern Expert. Performed By: #### 2 845423, 9785699, 4696771, 826348974, 22701250, 1400949, 07202341, 7627241, 8104712 #### [facility] [address] [place] [address] Eosinophils/Leukocyt es Auto (Bld) [Pure # fraction] 0.1 E9/L Normal 0.0-0.5 [facility] Comment on above: Order Comment: Order Added by Discern Expert. Performed By: #### 2 337740, 3269351, 2314300, 417361796, 25758535, 8703121, 55222588, 0264980, 9299457 #### [facility] [address] [place] [address] Lymphocytes/100 WBC (Bld) 37.8 % Normal 14.0-50.0 [facility] Comment on above: Order Comment: Order Added by Discern Expert. Performed By: #### 2 426682, 3751986, 9516495, 541513955, 06892896, 5776664, 44591161, 0001137, 5525099 #### [facility] [address] [place] [address] Lymphocytes/Leukocyt es Auto (Bld) [Pure # fraction] 1.7 E9/L Normal 1.0-4.0 [facility] Comment on above: Order Comment: Order Added by Discern Expert. Performed By: #### 2 222693, 5957272, 5077826, 961950732, 98754775, 8962142, 55098042, 6888620, 0628446 #### [facility] [address] [place] [address] Monocytes/100 WBC (Bld) 7.2 % Normal 4.0-14.0 [facility] Comment on above: Order Comment: Order Added by Discern Expert. Performed By: #### 2 447103, 7396636, 3777248, 423484459, 38915077, 7423905, 76401619, 8874078, 2223723 #### [facility] [address] [place] [address] Monocytes/Leukocytes Auto (Bld) [Pure # fraction] 0.3 E9/L Normal 0.2-1.0 [facility] Comment on above: Order Comment: Order Added by Discern Expert. Performed By: #### 2 792987, 9704534, 4728243, 838162773, 74331282, 1322694, 80391832, 6479742, 7454062 #### [facility] [address] [place] [address] Neutrophils/100 WBC (Bld) 52.2 % Normal 36.0-75.0 [facility] Comment on above: Order Comment: Order Added by Discern Expert. Performed By: #### 2 691437, 4338375, 7269598, 933716002, 19200236, 9986419, 39666591, 5361926, 0242384 #### [facility] [address] [place] [address] Neutrophils/Leukocyt es Auto (Bld) [Pure # fraction] 2.3 E9/L Normal 2.0-7.5 [facility] Comment on above: Order Comment: Order Added by Discern Expert. Performed By: #### 2 608147, 8696871, 1033530, 899496428, 57482277, 7604463, 09214909, 8202671, 6344969 #### [facility] [address] [place] [address] CBC w/ Auto Diffon 3 Erythrocyte distribution width (RBC) [Ratio] 13.4 % Normal 10.9-14.2 [facility] Comment on above: Performed By: #### 2 446147, 1119618, 9981999, 259312010, 61859690, 2202816, 99034011, 4201109, 5992775 #### [facility] [address] [place] [address] Hematocrit (Bld) [Volume fraction] 37.9 % Normal 34.0-46.0 [facility] Comment on above: Performed By: #### 2 330470, 6132133, 4160409, 110872803, 16459286, 2913311, 92042691, 1876412, 3561759 #### [facility] [address] [place] [address] Hemoglobin (Bld) [Mass/Vol] 13.1 g/dL Normal 12.0-16.0 [facility] Comment on above: Performed By: #### 2 070877, 0774526, 1946347, 660547251, 43525187, 4101876, 55996389, 7539843, 6095736 #### [facility] [address] [place] [address] MCH (RBC) [Entitic mass] 32.0 pg Normal 27.0-34.0 [facility] Comment on above: Performed By: #### 2 120283, 1699324, 8741670, 443520932, 65539807, 2944690, 58565972, 2559718, 5149036 #### [facility] [address] [place] [address] MCHC (RBC) [Mass/Vol] 34.5 g/dL Normal 31.4-36.0 [facility] Comment on above: Performed By: #### 2 956656, 2332427, 5429533, 212232719, 94673693, 2636286, 12256743, 7390301, 6756108 #### [facility] [address] [place] [address] MCV (RBC) [Entitic vol] 92.6 fL Normal 80.0-100.0 [facility] Comment on above: Performed By: #### 2 982044, 3136147, 7178982, 520160983, 36067436, 8776168, 46795379, 7813014, 9100641 #### [facility] [address] [place] [address] Platelet mean volume (Bld) [Entitic vol] 7.5 fL Normal 6.4-10.8 [facility] Comment on above: Performed By: #### 2 907172, 7225278, 2692548, 052737979, 90603595, 1189835, 77608041, 2092463, 6719850 #### [facility] [address] [place] [address] Platelets (Bld) [#/Vol] 291.0 E9/L Normal 150.0-500.0 [facility] Comment on above: Performed By: #### 2 604695, 1602927, 6623161, 497895546, 69313292, 8375477, 25833913, 8678360, 1234112 #### [facility] [address] [place] [address] RBC (Bld) [#/Vol] 4.1 E12/L Low 4.3-5.9 [facility] Comment on above: Performed By: #### 2 581377, 8712124, 3799651, 198673894, 77139581, 8782158, 75902800, 4241496, 9195505 #### [facility] [address] [place] [address] WBC corrected for nucl RBC Auto (Bld) [#/Vol] 4.5 E9/L Normal 4.0-11.0 [facility] [facility] Comment on above: Performed By: #### 2 797232, 9664025, 6517012, [id number], 63733740, 3538277, 41326712, 4549775, 0157147 #### [facility] [address] [place] [address] CHEMISTRYOrdered By: SYSTEM SYSTEM on 09-29-2023 25-hydroxyvitamin D3 [Mass/Vol] 21.1 ng/mL Low 30.0 - 100.0 ng/mL [facility] Comment on above: Interpretive Data: Vitamin D deficiency has been defined as a level of serum 25-OH vitamin D less than 20 ng/mL (1,2) by the [place] of Medicine and an Endocrine Society practice guideline. The Endocrine Society further defined vitamin D insufficiency as a level between 21 and 29 ng/mL (2). 1. IOM ([place] of Medicine). 2010. Dietary reference intakes for calcium and D. [place]: The National Academies Press. 2. Jaclyn MF, Julia FERNANDEZ, James BLISS, et al. Evaluation, treatment, and prevention of vitamin D deficiency: an Endocrine Society clinical practice guideline. JCEM. 2010; 96 (7):1911-30. Albumin [Mass/Vol] 3.7 g/dL Normal 3.3 - 5.0 gm/dL F [facility] Albumin/Globulin [Mass ratio] 0.9 {ratio} Low 1.1 - 2.2 [facility] ALP [Catalytic activity/Vol] 132 [iU]/d High 21 - 98 Int._Unit/L [facility] ALT No additional P-5'-P [Catalytic activity/Vol] 14 [iU]/d Normal 6 - 46 Int._Unit/L [facility] Anion gap [Moles/Vol] 11 mmol/L Normal 6 - 16 mEq/L [facility] AST [Catalytic activity/Vol] 19 [iU]/d Normal 5 - 43 Int._Unit/L [facility] Bilirubin [Mass/Vol] 0.2 mg/dL Normal 0.0 - 1.1 mg/dL [facility] Calcium [Mass/Vol] 9.3 mg/dL Normal 8.9 - 11.1 mg/dL [facility] Chloride [Moles/Vol] 106 mmol/L Normal 101 - 111 mmol/ L [facility] CO2 [Moles/Vol] 26 mmol/L Normal 21 - 31 mmol/L [facility] Cobalamin (Vitamin B12) [Mass/Vol] 113 pg/mL Normal 50 - 1500 pg/mL [facility] Creatinine [Mass/Vol] 0.7 mg/dL Normal 0.5 - 1.3 mg/dL [facility] Folate [Mass/Vol] 9.4 ng/mL Normal >=6.7ng/mL [facility] Re misol GFR/1.73 sq M.predicted among non-blacks MDRD (S/P/Bld) [Vol rate/Area] 97 mL/min/1.73 m2 Normal >=59mL/min/1.73 m2 [facility] Chem S Comment on above: Interpretive Data: C hronic kidney disease could be indicated at eGFR's of less than 60 mL/min/1.73m2. Kidney failure is indicated at less than 15 mL/min/1.73m2. Globulin (S) [Mass/Vol] 4.0 g/dL Normal 1.4 - 4.0 gm/dL [facility] Glucose [Mass/Vol] 89 mg/dL Normal 55 - 199 mg/dL [facility] Comment on above: Interpretive Data: I f this glucose result represents a fasting glucose, interpretation should refer to the following reference range: 55-99 mg/dL Magnesium [Mass/Vol] 2.1 mg/dL Normal 1.3 - 2.4 mg/dL [facility] Potassium [Moles/Vol] 3.5 mmol/L Normal 3.5 - 5.3 mmol/L [facility] Protein [Mass/Vol] 7.7 g/dL Normal 6.0 - 7.8 gm/dL [facility] Remisol Sodium [Moles/Vol] 139 mmol/L Normal 135 - 145 mmol/L [facility] TSH Qn 1.20 m[IU]/L Normal 0.34 - 5.60 mcIU/mL [facility] Urea nitrogen [Mass/Vol] 13 mg/dL Normal 5 - 21 mg/dL [facility] Urea nitrogen/Creatinine [Mass ratio] 19 mg/mg Normal 10 - 20 [facility] CMPon 09-29-2023 Albumin [Mass/Vol] 3.7 g/dL Normal 3.3-5.0 [facility] Comment on above: Performed By: #### 2 270252, 9379200, 2120653, 082085943, 65740090, 2363660, 49362998, 8675861, 1774101 #### [facility] [address] [place] [address] Albumin/Globulin (S) [Mass conc ratio] 0.9 Low 1.1-2.2 [facility] Comment on above: Performed By: #### 2 468240, 7517723, 6396813, 286999844, 21623944, 0170815, 40061492, 3785578, 2979049 #### [facility] [address] [place] [address] ALP [Catalytic activity/Vol] 132 Int._Unit/L High 21-98 [facility] Comment on above: Performed By: #### 2 599751, 6533814, 2498778, 932882500, 56402641, 3896308, 94371283, 2968227, 3654214 #### [facility] [address] [place] [address] ALT No additional P-5'-P [Catalytic activity/Vol] 14 Int._Unit/L Normal 6-46 [facility] Comment on above: Performed By: #### 2 005797, 9078303, 8435438, 758669324, 44890164, 1326209, 69254367, 3353745, 5690806 #### [facility] [address] [place] [address] Anion gap [Moles/Vol] 11 mmol/L Normal 6-16 [facility] Comment on above: Performed By: #### 2 551210, 9300903, 7646477, 086916774, 88992448, 7468335, 88582883, 1413423, 7854183 #### [facility] [address] [place] [address] AST [Catalytic activity/Vol] 19 Int._Unit/L Normal 5-43 [facility] Comment on above: Performed By: #### 2 010440, 8913215, 2060212, 047724860, 93173222, 3126477, 72282944, 3099924, 5634831 #### [facility] [address] [place] [address] Bilirubin [Mass/Vol] 0.2 mg/dL Normal 0.0-1.1 [facility] Comment on above: Performed By: #### 2 941294, 3292550, 4515439, 404463707, 16722205, 5945914, 78465683, 5389281, 4772229 #### [facility] [address] [place] [address] Calcium [Mass/Vol] 9.3 mg/dL Normal 8.9-11.1 [facility] Comment on above: Performed By: #### 2 007183, 4680464, 1221531, 057391374, 42998388, 3997151, 71282127, 3584792, 0364232 #### [facility] [address] [place] [address] Chloride [Moles/Vol] 106 mmol/L Normal 101-111 [facility] Comment on above: Performed By: #### 2 701917, 8867095, 3251088, 517935413, 32098559, 4857562, 46171305, 0082285, 8121947 #### [facility] [address] [place] [address] CO2 [Moles/Vol] 26 mmol/L Normal 21-31 [facility] Comment on above: Performed By: #### 2 188592, 3668097, 2557068, 162750321, 49860382, 1201390, 02410647, 6016326, 5869302 #### [facility] [address] [place] [address] Creatinine [Mass/Vol] 0.7 mg/dL Normal 0.5-1.3 [facility] Comment on above: Performed By: #### 2 028930, 6322917, 3277686, 448798156, 83776603, 0934590, 33756632, 5014221, 0957963 #### [facility] [address] [place] [address] Globulin (S) [Mass/Vol] 4.0 g/dL Normal 1.4-4.0 [facility] Comment on above: Performed By: #### 2 891237, 0466808, 1681892, 929251885, 04259624, 7385805, 60703337, 8605315, 3194448 #### [facility] [address] [place] [address] Glucose [Mass/Vol] 89 mg/dL Normal 55-199 [facility] Comment on above: Result Comment: If t his glucose result represents a fasting glucose, interpretation should refer to the following reference range: 55-99 mg/dL Performed By: #### 2 707270, 0778863, 0675263, 842989859, 49435917, 7775415, 53042850, 0792356, 6478526 #### [facility] [address] [place] [address] Potassium [Moles/Vol] 3.5 mmol/L Normal 3.5-5.3 [facility] Comment on above: Performed By: #### 2 401272, 7083420, 9096206, 538259891, 34785572, 1592895, 18040761, 9074303, 3671557 #### [facility] [address] [place] [address] Protein [Mass/Vol] 7.7 g/dL Normal 6.0-7.8 [facility] Comment on above: Performed By: #### 2 014439, 8916628, 2672404, 108746634, 64036923, 4654253, 82599826, 2751022, 9225379 #### [facility] [address] [place] [address] Sodium [Moles/Vol] 139 mmol/L Normal 135-145 [facility] Comment on above: Performed By: #### 2 332056, 4494223, 5648496, 531277394, 74766699, 9582020, 39646872, 3470644, 0523931 #### [facility] [address] [place] [address] Urea nitrogen [Mass/Vol] 13 mg/dL Normal 5-21 [facility] Comment on above: Performed By: #### 2 971417, 1962193, 7470469, 892547251, 07872206, 6996855, 87458558, 9943738, 7042705 #### [facility] [address] [place] [address] Urea nitrogen/Creatinine [Mass ratio] 19 No Units Normal 10-20 [facility] Comment on above: Performed By: #### 2 292030, 7540390, 6694546, 892545649, 06821326, 6354998, 10272432, 1279071, 3213631 #### [facility] [address] [place] [address] Consent for Flu Vaccineon Consent for Flu Vaccine [id number] 5#1.00TIFF Normal [facility] Family Medicine Office/Clini c Noteon 09-29-2023 Family Medicine Office/Clinic Note HPI Staff Livia is a 62 year old female presenting for acute visit Concerns: Pt states she is sleeping 16 hours a day since having her heart attack 07/09/23. Pt will have intermittent uneasy dizziness and stumbling over her own feet. Pt states this morning she was going up the stairs in the dark and missed a step and fell but caught herself and then came back down stairs and missed a step and fell. Pt states she doesn't have any lights in stairs. pt does have appointment with Dr Sue on 10/13/23 Pt would like her flu shot today History of Present Illness - Patient presents for follow-up. Patient states she is very weak and has been sleeping 16 hours a day. Patient has not started PT or OT after having her heart attack. Patient was told not to do this by cardiology (history by patient ). Patient states she is weak and dizzy. Patient is asking about how much weight she has lost. Patient is only lost 4 pounds since being in the hospital. -Patient is not using her walker today. Patient has not followed up with neurology. -Patient has a follow-up with cardiology in 2 weeks. Review of Systems PHQ Score Initial Depression Screen Score: 5 SCORE Physical Exam Vitals & Measurements HR: 78(Peripheral) RR: 18 BP: 110/68 SpO2: 96% HT: 61 in HT: 154 cm WT: 73.1 kg WT: 160.82 lb BMI: 30.82 General: alert, no acute distress ENMT: oral mucosa moist, Cardiovascular: regular rate and rhythm, normal peripheral perfusion Respiratory: Lungs CTA, respirations non labored Extremities: no deformity, no trauma, Not ambulating with her walker. Neurological: oriented x 4, LOC appropriate for age, CN II-XII intact, motor strength equal & normal bilaterally, speech normal Abdomen: Soft, Nontender, Non-distended, + BS Assessment/Plan 1. Major depressive disorder, recurrent, mild (F33.0: Major depressive disorder, recurrent, mild) - In remission at this time. -Patient sees psych. -Patient may need an adjustment on medication with her feeling exhausted. Ordered: influenza virus vaccine, inactivated, 0.5 mL, Injection, IntraMuscular, Once, Stop date 09/29/23 10:00:00 EST, Routine, Start date 09/29/23 10:00:00 EST CBC w/ Auto Diff Comprehensive Metabolic Panel Folate Level Magnesium Level TSH With T4fr Reflex Vitamin B12 Level Vitamin D 25 Hydroxy 2. Atherosclerosis of aorta (I70.0: Atherosclerosis of aorta) - On statin and antiplatelet. Ordered: influenza virus vaccine, inactivated, 0.5 mL, Injection, IntraMuscular, Once, Stop date 09/29/23 10:00:00 EST, Routine, Start date 09/29/23 10:00:00 EST CBC w/ Auto Diff Comprehensive Metabolic Panel Folate Level Magnesium Level TSH With T4fr Reflex Vitamin B12 Level Vitamin D [address] Hydroxy 3. History of ST elevation myocardial infarction (STEMI) (I25.2: Old myocardial infarction) - No chest pain today. Patient should follow-up with cardiology. Continue on medication as before. Blood pressures within normal limits today. Ordered: influenza virus vaccine, inactivated, 0.5 mL, Injection, IntraMuscular, Once, Stop date 09/29/23 10:00:00 EST, Routine, Start date 09/29/23 10:00:00 EST CBC w/ Auto Diff Comprehensive Metabolic Panel Folate Level Magnesium Level TSH With T4fr Reflex Vitamin B12 Level Vitamin D 25 Hydroxy 4. BMI 30.0-30.9,adult (Z68.30: Body mass index [BMI] 30.0-30.9, adult) BMI education uploaded to the chart Ordered: influenza virus vaccine, inactivated, 0.5 mL, Injection, IntraMuscular, Once, Stop date 09/29/23 10:00:00 EST, Routine, Start date 09/29/23 10:00:00 EST 5. Smoker (F17.200: Nicotine dependence, unspecified, uncomplicated) Encouraged the patient to stop smoking. Ordered: influenza virus vaccine, inactivated, 0.5 mL, Injection, IntraMuscular, Once, Stop date 09/29/23 10:00:00 EST, Routine, Start date 09/29/23 10:00:00 EST 6. Walker as ambulation aid (Z99.89: Dependence on other enabling machines and devices) Patient to use a walker anytime she is ambulating. 7. Polyneuropathy (G62.9: Polyneuropathy, unspecified) Patient needs to follow-up with neurology. Discussed this in detail. Advised PT OT when cleared by cardiology. Ordered: CBC w/ Auto Diff Comprehensive Metabolic Panel Folate Level Magnesium Level TSH With T4fr Reflex Vitamin B12 Level Vitamin D 25 Hydroxy 8. Encounter for immunization (Z23: Encounter for immunization) We will do flu shot today. Ordered: FIRST VACCINE w/o Full Stack Python Developer Admin Charge [id number] 9. Fatigue (R53.83: Other fatigue) Encouraged the patient to try small physical activity. We will do blood work to make sure we are not missing out electrolyte imbalance versus vitamin issue. We will also look for thyroid problems. We will follow-up in 1 month. Ordered: CBC w/ Auto Diff Comprehensive Metabolic Panel Folate Level Magnesium Level TSH With T4fr Reflex Vitamin B12 Level Vitamin D 25 Hydroxy Follow-up No qualifying data available Problem List/Past Medical (more content not included)... Normal [facility] Comment on above: Result Comment: Elec tronically Signed By: Fidencio POSEY, Dorie Jean Baptiste\.br\Date and Time Signed: 09/29/23 10:01 EST Folateon 09-29-2023 Folate [Mass/Vol] 9.4 ng/mL Normal >=6.7 [facility] Comment on above: Performed By: #### 2 349010, 5358955, 7726481, 003148228, 85993288, 9986743, 92927089, 8183394, 3456030 #### [facility] [address] [place] [address] HEMATOLOGYOrdered By: SYSTEM SYSTEM on 09-29-2023 Basophils/100 WBC (Bld) 0.6 % Normal 0.0 - 2.0 % [facility] HemeAutoSS Basophils/Leukocytes Auto (Bld) [Pure # fraction] 0.0 E9/L Normal 0.0 - 0.2 E9/L [facility]eAutoSS Eosinophils/100 WBC (Bld) 2.2 % Normal 0.0 - 8.0 % [facility]eAutoSS Eosinophils/Leukocyt es Auto (Bld) [Pure # fraction] 0.1 E9/L Normal 0.0 - 0.5 E9/L [facility]eAutoSS Lymphocytes/100 WBC (Bld) 37.8 % Normal 14.0 - 50.0 % [facility]eAutoSS Lymphocytes/Leukocyt es Auto (Bld) [Pure # fraction] 1.7 E9/L Normal 1.0 - 4.0 E9/L [facility]eAutoSS Monocytes/100 WBC (Bld) 7.2 % Normal 4.0 - 14.0 % [facility]eAutoSS Monocytes/Leukocytes Auto (Bld) [Pure # fraction] 0.3 E9/L Normal 0.2 - 1.0 E9/L [facility]eAutoSS Neutrophils/100 WBC (Bld) 52.2 % Normal 36.0 - 75.0 % [facility]eAutoSS Neutrophils/Leukocyt es Auto (Bld) [Pure # fraction] 2.3 E9/L Normal 2.0 - 7.5 E9/L [facility]eAutoSS HEMATOLOGYOrdered By: Halina Linda on 09-29-2023 Erythrocyte distribution width (RBC) [Ratio] 13.4 % Normal 10.9 - 14.2 % [facility] Hematocrit (Bld) [Volume fraction] 37.9 % Normal 34.0 - 46.0 % [facility]Auto[facility] Hemoglobin (Bld) [Mass/Vol] 13.1 g/dL Normal 12.0 - 16.0 gm/dL [facility] MCH (RBC) [Entitic mass] 32.0 pg Normal 27.0 - 34.0 pg [facility]Auto[facility] MCHC (RBC) [Mass/Vol] 34.5 g/dL Normal 31.4 - 36.0 gm/dL [facility] MCV (RBC) [Entitic vol] 92.6 fL Normal 80.0 - 100.0 fL [facility]Auto[facility] Platelet mean volume (Bld) [Entitic vol] 7.5 fL Normal 6.4 - 10.8 fL [facility]eAutoSS Platelets (Bld) [#/Vol] 291.0 E9/L Normal 150.0 - 500.0 E9/L [facility]Auto[facility] RBC (Bld) [#/Vol] 4.1 E12/L Low 4.3 - 5.9 E12/L [facility]Auto[facility] WBC corrected for nucl RBC Auto (Bld) [#/Vol] 4.5 E9/L Normal 4.0 - 11.0 E9/L [facility]Auto[facility] Magnesiumon 09-29-2023 Magnesium [Mass/Vol] 2.1 mg/dL Normal 1.3-2.4 [facility] Comment on above: Performed By: #### 2 750728, 6466772, 7556914, 089249580, 78566734, 2048113, 59420700, 2968382, 1261082 #### [facility] [address] [place] [address] TSH With T4fr Reflexon 09-29 TSH Qn 1.20 m[IU]/L Normal 0.34-5.60 [facility] Comment on above: Performed By: #### 2 028689, 6394561, 8085019, 637724963, 15587599, 1478215, 84561595, 7790222, 4437389 #### [facility] [address] [place] [address] Vit B12on 09-29-2023 Cobalamin (Vitamin B12) [Mass/Vol] 113 pg/mL Normal 50-1500 [facility] Comment on above: Performed By: #### 2 801059, 7239940, 5065848, 663838856, 21585189, 9621536, 25023204, 1187168, 0677392 #### [facility] [address] [place] [address] Vitamin D 25 Hydroxyon 09-29 25-hydroxyvitamin D3 [Mass/Vol] 21.1 ng/mL Low 30.0-100.0 [facility] Comment on above: Result Comment: Vit plata D deficiency has been defined as a level of serum 25-OH vitamin D less than 20 ng/mL (1,2) by the [place] of [place] and an Endocrine Society practice guideline. The Endocrine Society further defined vitamin D insufficiency as a level between 21 and 29 ng/mL (2). 1. IOM ([place] of [place]). 2010. Dietary reference intakes for calcium and D. [place]: The National Academies Press. 2. Jaclyn MF, Julia FERNANDEZ, James BLISS, et al. Evaluation, treatment, and prevention of vitamin D deficiency: an Endocrine Society clinical practice guideline. JCEM. 2010; 96 (7):1911-30. Performed By: #### 2 213782, 3958684, 5087844, 268690914, 38951971, 5109493, 12559330, 6683815, 4049436 ####[facility] [address] [place] [address] eGFRon 09-29-2023 GFR/1.73 sq M.predicted among non-blacks MDRD (S/P/Bld) [Vol rate/Area] 97 mL/min/1.73 m2 Normal >=59 [facility] Comment on above: Order Comment: Order added by Discern Expert. 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 Kidney failure is indicated at less than 15 mL/min/1.73m2. Performed By: #### 2 056250, 2337363, 8520189, 180523510, 19550363, 6565212, 07357267, 8756015, 8468387 #### [facility] [address] [place] [address] Coding Summary.on 09-19-2023 Coding Summary. [id number] 286#1.00TIFF Normal [facility] Pre-Visit Planningon 023 Pre-Visit Planning -- From: Alesia Ireland RN To: Dorie Luis MD; Sent: 09/12/2023 11:21:33 EDT Subject: Pre-Visit Planning Due Date/Time: 09/12/2023 11:21:00 EDT Caller Name: LIVIA JACOBO; Caller Number: Norberto , Shanna Nc Dr. Luis, *Based on your response below, can you please update the chronic problem list and address during this visit if appropriate?* During a pre-visit planning chart review, I noted the following documentation in the medical record: Problem list- Acute ST elevation myocardial infarction (documented 07/09/2023) 07/09/2023 cardio pcmm-68-jqjo-old female with no prior cardiac history presents after 2 days of stuttering intermittent chest pain followed by worsening few hours ago. Found to have posterior STEMI and got primary PCI. Left-ventricular end-diastolic pressure was a little bit up in the [employer] Manager EF was little bit down she got some furosemide postprocedure. Based on your medical judgment, can you further clarify if patient is currently having acute STEMI or if she has history of ST elevation myocardial infarction (STEMI) - Acute ST elevation myocardial infarction (STEMI) - History of ST elevation myocardial infarction (STEMI) - Other (please specify): I can update the problem list with your specified response if you would like. In responding to this request, please exercise your independent professional judgement. The fact that a question is asked does not imply that any particular answer is desired or expected. If you have any questions, please feel free to contact me at extension [phone]. Thank you! Alesia Ireland, SAMIR, RN, CCM, CCDS, CCDS-O -- From: Dorie Luis MD To: Alesia Ireland RN; Sent: 09/13/2023 08:36:08 EDT Subject: RE: Pre-Visit Planning Caller Name: LIVIA JACOBO; Caller Number: Norberto , Shanna Major depressive disorder, recurrent, mild Thanks -- From: Alesia Ireland RN To: Dorie Luis MD; Sent: 09/13/2023 08:47:29 EDT Subject: FW: Pre-Visit Planning Due Date/Time: 09/13/2023 08:47:00 EDT Caller Name: LIVIA JACOBO; Caller Number: H , M Trina Luis, can you verify your response on this one regarding the STEMI. -- From: Dorie Luis MD To: Alesia Ireland RN; Sent: 09/14/2023 08:35:13 EDT Subject: RE: Pre-Visit Planning Caller Name: LIVIA JACOBO; Caller Number: H , M hx of stemi Thanks Normal [address] [facility] Pre-Visit Planningon 023 Pre-Visit Planning -- From: Alesia Ireland RN To: Dorie Luis MD; Sent: 09/12/2023 11:16:22 EDT Subject: Pre-Visit Planning Due Date/Time: 09/12/2023 11:16:00 EDT Caller Name: LIVIA JACOBO; Caller Number: H , M Nc Dr. Luis, *Based on your response below, can you please update the chronic problem list and address during this visit if appropriate?* During a pre-visit planning chart review, I noted the following documentation in the medical record: 07/09/2023 chest xr-Aortic vascular calcifications 08/08/2023 chest xr-Atherosclerotic calcification of the thoracic aorta. 09/01/2023 chest xr-Aorta calcified. Problem list- Acute ST elevation myocardial infarction, Current smoker, Hypertension Based on your medical judgment, can you further clarify the following? - Atherosclerosis of aorta -Other (please specify): I can update the problem list with your specified response if you would like. In responding to this request, please exercise your independent professional judgement. The fact that a question is asked does not imply that any particular answer is desired or expected. If you have any questions, please feel free to contact me at extension [phone]. Thank you! Alesia Ireland, OSIRISN, RN, CCM, CCDS, CCDS-O -- From: Dorie Luis MD To: Alesia Ireland RN; Sent: 09/13/2023 08:35:41 EDT Subject: RE: Pre-Visit Planning Caller Name: LIVIA JACOBO; Caller Number: Norberto , M Ok to add [facility] [address] [facility] -- From: Alesia Ireland RN To: Dorie Luis MD; Sent: 09/12/2023 11:12:01 EDT Subject: Pre-Visit Planning Due Date/Time: 09/12/2023 11:11:00 EDT Caller Name: LIVIA JACOBO; Caller Number: H , M Hi Dr. Luis , During a pre-visit planning chart review, I noted the following documentation in the medical record: 09/13/2022 office note - The patient reports that she was diagnosed with depression and anxiety and states that she has been doing well. She denies being diagnosed with bipolar disorder. 09/13/2022 phq9-7 elizabeth 4 11/25/2022 office note-2. Depression, unspecified (F32.A: Depression, unspecified) The patient sees psychiatry and us stable on her medications. 05/12/2023 office note-Assessment/Chantale n 1. Anxiety and depression (F41.9: Anxiety disorder, unspecified) - Continues to improve. - Pt sees Psych. - Encouraged the patient to continue. 06/13/2023 office note-2. Anxiety and depression (F41.9: Anxiety disorder, unspecified) Patient taking medications as prescribed, voices effectiveness with medication. ELIZABETH-7 completed with positive findings. Risk score of 7. Patient follows with Dr. Sandhu for psychiatry for symptoms and medication management. Patient has POV 07/06/23, declines need for sooner appointment, states she will call and arrange sooner if symptoms worsen. Reviewed concerns that needs to be discussed during office visits such as: changes with worrying too much and it is interfering with your work, relationships and/or other parts of your life. Your fear, worry or anxiety is upsetting to you and difficult to control. If additional trouble with depression is noticeable contact your provider. Patient does voice understanding. Patient taking medications as directed, voices medication is effective. Follows up with psychiatry, Dr. Sandhu, with medication management and symptom control. PHQ-9 risk assessment completed with positive findings. Total risk score 11. Patient denies any suicidal ideations at this time or thoughts of self harm. Declines need for sooner office visit, she is scheduled with Dr. Sandhu on 07/06/23. Reviewed additional signs/symptoms to monitor for and report to provider. Current problem list: Anxiety and depression ( Anxiety disorder, unspecified) Current medications: Quetiapine, Venlafaxine Based on your medical judgment, can you please clarify which, if any, of the following conditions are present? ? Major Depressive Disorder, Recurrent ? Major depressive disorder, recurrent, mild ? Major depressive disorder, recurrent, moderate ? Major depressive disorder, recurrent, severe without mention of psychotic behavior ? Major depressive disorder, recurrent, severe specified as with psychotic behavior ? Major depressive disorder, recurrent, unspecified ? Major depressive disorder, recurrent, in partial remission ? Major depressive disorder, recurrent, in full remission ? Major depressive disorder, recurrent, in remission unspecified Anxiety (please further specify if able to) Other (Please Specify): I can update the problem list with your specified response if you would like. In responding to this request, please exercise your independent professional judgement. The fact that a question is asked does not imply that any particular answer is desired or expected. If you have any questions, please feel free to contact me at extension [phone]. Thank you! SAMIR Felix, RN, CCM, CCDS, CCDS-O -- From: Fidencio POSEY, Dorie Jean Baptiste To: Beka LY, Alesia; Sent: 09/13/2023 08:35:24 EDT Subject: RE: Pre-Visit Planning Caller Name: LIVIA JACOBO; Caller Number: Norberto , M Major depressive disorder, recurrent, mild Please add Normal [address] [facility] Outside Operativeon 09-08-20 23 Outside Operative [phone] [id number] Normal [facility] Basic metabolic 2000 panelon 09-07-2023 Anion gap [Moles/Vol] 13 mmol/L 10 - 20 mmol/L [facility] Calcium [Mass/Vol] 9.6 mg/dL 8.6 - 10.3 mg/dL [facility] Chloride [Moles/Vol] 103 mmol/L 98 - 107 mmol/L [facility] CO2 [Moles/Vol] 24 mmol/L 21 - 32 mmol/L [facility] Creatinine [Mass/Vol] 0.64 mg/dL 0.50 - 1.05 mg/dL [facility] GFR/1.73 sq M.predicted MDRD (S/P/Bld) [Vol rate/Area] - [facility] Comment on above: Calculations of henry mated GFR are performed using the 2020 CKD-EPI Study Refit equation without the race variable for the IDMS-Traceable creatinine methods. https://jasn.asnjournals.org/content//ASN.1150863 988 Glucose [Mass/Vol] 98 mg/dL 74 - 99 mg/dL [facility] Interpretation and review of laboratory results Normal [facility] Potassium [Moles/Vol] 3.9 mmol/L 3.5 - 5.3 mmol/L [facility] Sodium [Moles/Vol] 136 mmol/L 136 - 145 mmol/L [facility] Urea nitrogen [Mass/Vol] 10 mg/dL 6 - 23 mg/dL [facility] Anion gap [Moles/Vol] 13 mmol/L Normal 10-20 [facility] Comment on above: Performed By: #### 2 4321-2 #### GEOVANI Roe ([id number]) ED [facility] ([facility]) [address] [place] [address] 80285 Calcium [Mass/Vol] 9.6 mg/dL Normal 8.6-10.3 [facility] Comment on above: Performed By: #### 2 4321-2 #### GEOVANI Roe ([id number]) ED [facility] ([facility]) [address] [place] [address] 22709 Chloride [Moles/Vol] 103 mmol/L Normal 98-107 [facility] Comment on above: Performed By: #### 2 4321-2 #### GEOVANI Roe ([id number]) ED [facility] ([facility]) [address] [place] [address] 73968 CO2 [Moles/Vol] 24 mmol/L Normal 21-32 [facility] Comment on above: Performed By: #### 2 4321-2 #### GEOVANI Roe ([id number]) ED [facility] ([facility]) [address] [place] [address] 33253 Creatinine [Mass/Vol] 0.64 mg/dL Normal 0.50-1.05 [facility] Comment on above: Performed By: #### 2 4321-2 #### GEOVANI Roe ([id number]) ED [facility] ([facility]) [address] [place] [address] 41771 GFR/1.73 sq M.predicted MDRD (S/P/Bld) [Vol rate/Area] mL/min/{1.73_m2} Normal >60 [facility] Comment on above: Result Comment: Calc ulations of estimated GFR are performed using the 2020 CKD-EPI Study Refit equation without the race variable for the IDMS-Traceable creatinine methods. https://jasn.asnjournals.org/content//ASN.8246396 988 Performed By: #### 2 4321-2 #### GEOVANI Roe ([id number]) ED [facility] ([facility]) [address] [place] [address] 96978 Glucose [Mass/Vol] 98 mg/dL Normal 74-99 [facility] Comment on above: Performed By: #### 2 4321-2 #### GEOVANI Roe ([id number]) ED [facility] ([facility]) [address] [place] [address] 20869 Potassium [Moles/Vol] 3.9 mmol/L Normal 3.5-5.3 [facility] Comment on above: Performed By: #### 2 4321-2 #### GEOVANI Roe ([id number]) ED [facility] ([facility]) [address] [place] [address] 23760 Sodium [Moles/Vol] 136 mmol/L Normal 136-145 [facility] Comment on above: Performed By: #### 2 4321-2 #### GEOVANI Roe ([id number]) ED [facility] ([facility]) [address] [place] [address] 55355 Urea nitrogen [Mass/Vol] 10 mg/dL Normal 6-23 [facility] Comment on above: Performed By: #### 2 4321-2 #### GEOVANI Roe ([id number]) ED [facility] ([facility]) [address] [place] [address] 45465 CARDIAC CATHETERIZATION - [facility] 09-07-2023 CARDIAC CATHETERIZATION - CORONARY [facility] Emergency Services Manager [address] [place] [address] 98231 Cardiovascular Catheterization Report Patient Name: LIVIA JACOBO Performing Physician: Lewis Jansen MD Study Date: 09/07/2023 Verifying Physician: Lewis Jansen MD MRN/PID: [id number] Pot Builder: Ordering Provider: Lewis JANSEN Date of /Age: 1210/17/1960 / 62 years Fellow: Gender: F Fellow: Study: Case Aborted Indications: LIVIA JACOBO is a 63 year old female who presents with dyslipidemia, hypertension, prior myocardial infarction, prior percutaneous coronary intervention, chronic pulmonary disease, Current Smoker and a chest pain assessment of typical angina. Stable angina. Stress test performed: No. CTA performed: No. Agatston accessed: No. LVEF Assessed: Yes. LVEF = 55%. Cardiac arrest: No. Cardiac surgical consult: No cardiac surgery not recommended. Cardiovascular Instability: No Frailty status of patient entering lab: 4 = Vulnerable. Procedure Description: After infiltration with 2% Lidocaine, the right femoral artery was cannulated with a modified Seldinger technique. Subsequently a 6 Omani sheath was placed in the right femoral artery. After infiltration with 2% Lidocaine, a second arterial access was obtained via the left femoral artery with a modified Seldinger technique and a 4 Omani sheath was placed. After completion of the procedure, femoral artery angiography was performed. This demonstrated a common femoral artery puncture appropriate for closure. An Angio-Seal VIP 6F ([employer]) vascular closure device was placed per protocol. Femoral artery angiography was performed at the additional arterial access site. This demonstrated a common femoral artery puncture appropriate for closure. An Angio-Seal Evolution 6F ([employer]) vascular closure device was placed per protocol. Coronary Angiography: The coronary circulation is right dominant. Right Coronary Artery Distribution: There is 100% stenosis in the the mid Right Coronary Artery. This segment is CUSTOM FURRIER. Coronary Interventions: Angiography reveals a 100% stenosis of the mid right coronary artery coronary artery. Pre-intervention ANNITA flow was 0. Percutaneous coronary intervention was performed within the mid right coronary artery. The stenosis was successfully reduced from 100% to 100%. Post-intervention ANNITA flow was 0. Hemo Personnel: + -----+---------+ Name Duty + -----+---------+ Tiffany Jansen MD, MD 1 + -----+---------+ Hemodynamic Pressures: +----+ ---------+--------- -+ +--- +------- --+ Site Date Time Phase Name Systolic mmHg Diastolic mmHg Mean mmHg +----+ ---------+--------- -+ +--- +------- --+ AO 09/07/2023 11:36:32 AM AIR REST 127 81 100 +----+ ---------+--------- -+ +--- +------- --+ AO 09/07/2023 11:36:32 AM AIR REST 120 73 90 +----+ ---------+--------- -+ +--- +------- --+ TRAMMELL 09/07/2023 11:47:11 AM AIR REST 115 84 99 +----+ ---------+--------- -+ +--- +------- --+ AO 09/07/2023 11:47:11 AM AIR REST 125 70 92 +----+ ---------+--------- -+ +--- +------- --+ TRAMMELL 09/07/2023 12:00:26 PM AIR REST 136 82 102 +----+ ---------+--------- -+ +--- +------- --+ AO 09/07/2023 12:00:26 PM AIR REST 131 72 94 +----+ ---------+--------- -+ +--- +------- --+ Cardiac Cath Post Procedure Notes: Post Procedure Diagnosis: Single vessel disease. Blood Loss: Estimated blood loss during the procedure was 0 mls. Specimens Removed: Number of specimen(s) removed: none. CONCLUSIONS: 1. Mid RCA Lesion: The percent stenosis is 100%. ICD 10 Codes: Angina pectoris, unspecified-I20.9 CPT Codes: Angioplasty, Right Coronary addl branch major Artery (PCI)-47493. 36782 Tiffany Jansen MD Performing Physician Final Normal [facility] CBC panel Auto (Bld)on 09-07 Erythrocyte distribution width (RBC) [Ratio] 12.3 % 11.5 - 14.5 % [facility] Hematocrit (Bld) [Volume fraction] 42.3 % 36.0 - 46.0 % [facility] Hemoglobin (Bld) [Mass/Vol] 14.4 g/dL 12.0 - 16.0 g/dL [facility] Interpretation and review of laboratory results Normal [facility] MCH (RBC) [Entitic mass] 31.9 pg 26.0 - 34.0 pg [facility] MCHC (RBC) [Mass/Vol] 34.0 g/dL 32.0 - 36.0 g/dL [facility] MCV (RBC) [Entitic vol] 94 fL 80 - 100 fL [facility] Nucleated RBC/100 WBC (Bld) [Ratio] 0.0 % [facility] Platelet mean volume (Bld) [Entitic vol] 9.5 fL 7.5 - 11.5 fL [facility] Platelets (Bld) [#/Vol] 231 10*3/uL [facility] RBC (Bld) [#/Vol] 4.51 10*6/uL [facility] WBC (Bld) [#/Vol] 6.0 10*3/uL [facility] Erythrocyte distribution width (RBC) [Ratio] 12.3 % Normal 11.5-14.5 [facility] Comment on above: Performed By: #### 5 8410-2 #### GEOVANI Roe ([id number]) ED [facility] ([facility]) [address] [place] [address] 39055 Hematocrit (Bld) [Volume fraction] 42.3 % Normal 36.0-46.0 [facility] Comment on above: Performed By: #### 5 8410-2 #### GEOVANI Roe ([id number]) ED [facility] ([facility]) [address] [place] [address] 23727 Hemoglobin (Bld) [Mass/Vol] 14.4 g/dL Normal 12.0-16.0 [facility] Comment on above: Performed By: #### 5 8410-2 #### GEOVANI Roe ([id number]) ED [facility] ([facility]) [address] [place] [address] 65086 MCH (RBC) [Entitic mass] 31.9 pg Normal 26.0-34.0 [facility] Comment on above: Performed By: #### 5 8410-2 #### GEOVANI Roe ([id number]) ED [facility] ([facility]) [address] [place] [address] 53719 MCHC (RBC) [Mass/Vol] 34.0 g/dL Normal 32.0-36.0 [facility] Comment on above: Performed By: #### 5 8410-2 #### GEOVANI Roe ([id number]) ED [facility] ([facility]) [address] [place] [address] 91108 MCV (RBC) [Entitic vol] 94 fL Normal 80-100 [facility] Comment on above: Performed By: #### 5 8410-2 #### GEOVANI Roe ([id number]) ED [facility] ([facility]) [address] [place] [address] 41476 Nucleated RBC/100 WBC (Bld) [Ratio] 0.0 /100 WBCs Normal 0.0-0.0 [facility] Comment on above: Performed By: #### 5 8410-2 #### GEOVANI Roe ([id number]) ED [facility] ([facility]) [address] [place] [address] 41221 Platelet mean volume (Bld) [Entitic vol] 9.5 fL Normal 7.5-11.5 [facility] Comment on above: Performed By: #### 5 8410-2 #### GEOVANI Roe ([id number]) ED [facility] ([facility]) [address] [place] [address] 60755 Platelets (Bld) [#/Vol] 231 x10*3/uL Normal 150-450 [facility] Comment on above: Performed By: #### 5 8410-2 #### GEOVANI Roe ([id number]) ED [facility] ([facility]) [address] [place] [address] 91848 RBC (Bld) [#/Vol] 4.51 x10*6/uL Normal 4.00-5.20 [facility] Comment on above: Performed By: #### 5 8410-2 #### GEOVANI Roe ([id number]) ED [facility] ([facility]) [address] [place] [address] 49034 WBC (Bld) [#/Vol] 6.0 x10*3/uL Normal 4.4-11.3 [facility] Comment on above: Performed By: #### 5 8410-2 #### GEOVANI BARNETTSERA Roe ([id number]) ED [facility] ([facility]) [address] [place] [address] 57773 Cardiac catheterization stud yon 09-07-2023 [facility] Emergency Services Manager [address] [place] [address] 19987 Cardiovascular Catheterization Report Patient Name: LIVIA JACOBO Performing Physician: Lewis Jansen MD Study Date: 09/07/2023 Verifying Physician: Lewis Jansen MD MRN/PID: [id number] Pot Builder: Ordering Provider: Lewis JANSEN Date of /Age: 1210/17/1960 / 62 years Fellow: Gender: F Fellow: Study: Case Aborted Indications: LIVIA JACOBO is a 63 year old female who presents with dyslipidemia, hypertension, prior myocardial infarction, prior percutaneous coronary intervention, chronic pulmonary disease, Current Smoker and a chest pain assessment of typical angina. Stable angina. Stress test performed: No. CTA performed: No. Agatston accessed: No. LVEF Assessed: Yes. LVEF = 55%. Cardiac arrest: No. Cardiac surgical consult: No cardiac surgery not recommended. Cardiovascular Instability: No Frailty status of patient entering lab: 4 = Vulnerable. Procedure Description: After infiltration with 2% Lidocaine, the right femoral artery was cannulated with a modified Seldinger technique. Subsequently a 6 Omani sheath was placed in the right femoral artery. After infiltration with 2% Lidocaine, a second arterial access was obtained via the left femoral artery with a modified Seldinger technique and a 4 Omani sheath was placed. After completion of the procedure, femoral artery angiography was performed. This demonstrated a common femoral artery puncture appropriate for closure. An Angio-Seal VIP 6F ([employer]) vascular closure device was placed per protocol. Femoral artery angiography was performed at the additional arterial access site. This demonstrated a common femoral artery puncture appropriate for closure. An Angio-Seal Evolution 6F ([employer]) vascular closure device was placed per protocol. Coronary Angiography: The coronary circulation is right dominant. Right Coronary Artery Distribution: There is 100% stenosis in the the mid Right Coronary Artery. This segment is CUSTOM FURRIER. Coronary Interventions: Angiography reveals a 100% stenosis of the mid right coronary artery coronary artery. Pre-intervention ANNITA flow was 0. Percutaneous coronary intervention was performed within the mid right coronary artery. The stenosis was successfully reduced from 100% to 100%. Post-intervention ANNITA flow was 0. Hemo Personnel: + -----+---------+ Name Duty + -----+---------+ Tiffany Jansen MD, MD 1 + -----+---------+ Hemodynamic Pressures: +----+ ---------+--------- -+ +--- +------- --+ Site Date Time Phase Name Systolic mmHg Diastolic mmHg Mean mmHg +----+ ---------+--------- -+ +--- +------- --+ AO 09/07/2023 11:36:32 AM AIR REST 127 81 100 +----+ ---------+--------- -+ +--- +------- --+ AO 09/07/2023 11:36:32 AM AIR REST 120 73 90 +----+ ---------+--------- -+ +--- +------- --+ TRAMMELL 09/07/2023 11:47:11 AM AIR REST 115 84 99 +----+ ---------+--------- -+ +--- +------- --+ AO 09/07/2023 11:47:11 AM AIR REST 125 70 92 +----+ ---------+--------- -+ +--- +------- --+ TRAMMELL 09/07/2023 12:00:26 PM AIR REST 136 82 102 +----+ ---------+--------- -+ +--- +------- --+ AO 09/07/2023 12:00:26 PM AIR REST 131 72 94 +----+ ---------+--------- -+ +--- +------- --+ Cardiac Cath Post Procedure Notes: Post Procedure Diagnosis: Single vessel disease. Blood Loss: Estimated blood loss during the procedure was 0 mls. Specimens Removed: Number of specimen(s) removed: none. CONCLUSIONS: 1. Mid RCA Lesion: The percent stenosis is 100%. ICD 10 Codes: Angina pectoris, unspecified-I20.9 CPT Codes: Angioplasty, Right Coronary addl branch major Artery (PCI)-22715. 17433 Tiffany Jansen MD Performing Physician Final Tiffany Knight MD - 09/07/2023 [facility] Emergency Services Manager [address] [place] [address] Cardiovascular Catheterization Report Patient Name: LIVIA JACOBO Performing Physician: Lewis Jansen MD Study Date: 09/07/2023 Verifying Physician: Lewis Jansen MD MRN/PID: [id number] Pot Builder: Ordering Provider: Lewis JANSEN Date of /Age: 1210/17/1960 / 62 years Fellow: Gender: F Fellow: Study: Case Aborted Indications: LIVIA JACOBO is a 63 year old female who presents with dyslipidemia, hypertension, prior myocardial infarction, prior percutaneous coronary intervention, chronic pulmonary disease, Current Smoker and a chest pain assessment of typical angina. Stable angina. Stress test performed: No. CTA performed: No. Agatston accessed: No. LVEF Assessed: Yes. LVEF = 55%. Cardiac arrest: No. Cardiac surgical consult: No cardiac surgery not recommended. Cardiovascular Instability: No Frailty status of patient entering lab: 4 = Vulnerable. Procedure Description: After infiltration with 2% Lidocaine, the right femoral artery was cannulated with a modified Seldinger technique. Subsequently a 6 Omani sheath was placed in the right femoral artery. After infiltration with 2% Lidocaine, a second arterial access was obtained via the left femoral artery with a modified Seldinger technique and a 4 Omani sheath was placed. After completion of the procedure, femoral artery angiography was performed. This demonstrated a common femoral artery puncture appropriate for closure. An Angio-Seal VIP 6F ([employer]) vascular closure device was placed per protocol. Femoral artery angiography was performed at the additional arterial access site. This demonstrated a common femoral artery puncture appropriate for closure. An Angio-Seal Evolution 6F ([employer]) vascular closure device was placed per protocol. Coronary Angiography: The coronary circulation is right dominant. Right Coronary Artery Distribution: There is 100% stenosis in the the mid Right Coronary Artery. This segment is CUSTOM FURRIER. Coronary Interventions: Angiography reveals a 100% stenosis of the mid right coronary artery coronary artery. Pre-intervention ANNITA flow was 0. Percutaneous coronary intervention was performed within the mid right coronary artery. The stenosis was successfully reduced from 100% to 100%. Post-intervention ANNITA flow was 0. Hemo Personnel: + -----+---------+ Name Duty + -----+---------+ Tiffany Jansen MD, MD 1 + -----+---------+ Hemodynamic Pressures: +----+ ---------+--------- -+ +--- +------ ---+ Site Date Time Phase Name Systolic mmHg Diastolic mmHg Mean mmHg +----+ ---------+--------- -+ +--- +------ ---+ AO 09/07/2023 11:36:32 AM AIR REST 127 81 100 +----+ ---------+--------- -+ +--- +------ ---+ AO 09/07/2023 11:36:32 AM AIR REST 120 73 90 +----+ ---------+--------- -+ +--- +------ ---+ TRAMMELL 09/07/2023 11:47:11 AM AIR REST 115 84 99 +----+ ---------+--------- -+ +--- +------ ---+ AO 09/07/2023 11:47:11 AM AIR REST 125 70 92 +----+ ---------+--------- -+ +--- +------ ---+ TRAMMELL 09/07/2023 12:00:26 PM AIR REST 136 82 102 +----+ ---------+--------- -+ +--- +------ ---+ AO 09/07/2023 12:00:26 PM AIR REST 131 72 94 +----+ ---------+--------- -+ +--- +------ ---+ Cardiac Cath Post Procedure Notes: Post Procedure Diagnosis: Single vessel disease. Blood Loss: Estimated blood loss during the procedure was 0 mls. Specimens Removed: Number of specimen(s) removed: none. CONCLUSIONS: 1. Mid RCA Lesion: The percent stenosis is 100%. ICD 10 Codes: Angina pectoris, unspecified-I20.9 CPT Codes: Angioplasty, Right Coronary addl branch major Artery (PCI)-92884. 15101 Tiffany Jansen MD Performing Physician Final [facility] Work Phone: [facility] Work Phone: ECG 12-LEADon 09-07-2023 ECG 12-LEAD Ventricular Rate 95 Atrial Rate 95 P-R Interval 130 QRS Duration 84 Q-T Interval 360 QTC Calculation(Bazett) 452 P Guilford 63 R Guilford 31 T Guilford 0 QRS Count 16 Q Onset 213 P Onset 148 P Offset 210 T Offset 393 QTC Fredericia 419 Diagnosis Normal sinus rhythm ST & T wave abnormality, consider anterolateral ischemia Abnormal ECG No previous ECGs available Confirmed by Keith Mariscal ([id number]) on 09/09/2023 9:30:06 PM Normal [facility] PT and aPTT panel Coag (PPP) on 09-07-2023 aPTT Coag (PPP) [Time] 27 s [facility] INR Coag (PPP) [Relative time] 1.0 {INR} 0.9 - 1.1 [facility] Interpretation and review of laboratory results Normal [facility] PT Coag (PPP) [Time] 11.4 s [facility] The APTT is no longer used for monitoring Unfractionated Heparin Therapy. For monitoring Heparin Therapy, use the Heparin Assay. [facility] aPTT Coag (PPP) [Time] 27 s Normal 27-38 [facility] Comment on above: Order Comment: The A PTT is no longer used for monitoring Unfractionated Heparin Therapy. For monitoring Heparin Therapy, use the Heparin Assay. Performed By: #### 3 4529-8 #### GEOVANI Roe ([id number]) ED [facility] ([facility]) [address] [place] [address] 45696 INR Coag (PPP) [Relative time] 1.0 Normal 0.9-1.1 [facility] Comment on above: Order Comment: The A PTT is no longer used for monitoring Unfractionated Heparin Therapy. For monitoring Heparin Therapy, use the Heparin Assay. Performed By: #### 3 4529-8 #### GEOVANI Roe ([id number]) ED [facility] ([facility]) [address] [place] [address] 66432 PT Coag (PPP) [Time] 11.4 s Normal 9.8-12.8 [facility] Comment on above: Order Comment: The A PTT is no longer used for monitoring Unfractionated Heparin Therapy. For monitoring Heparin Therapy, use the Heparin Assay. Performed By: #### 3 4529-8 #### GEOVANI Roe ([id number]) ED [facility] ([facility]) [address] [place] [address] 74920 XR CHEST 2 VIEWSon 3 XR CHEST 2 VIEWS Interpreted By: Debora Fu, STUDY: XR CHEST 2 VIEWS; INDICATION: Signs/Symptoms:pre PCI. COMPARISON: None ACCESSION NUMBER(S): [id number] ORDERING CLINICIAN: TIFFANY JANSEN FINDINGS: The cardiac silhouette size is within normal limits. Bandlike airspace opacities in the left lower lung zone is likely favored to represent atelectasis. There is no focal consolidation, edema or pneumothorax. No sizeable pleural effusion. No acute osseous abnormality. IMPRESSION: No acute cardiopulmonary process. Signed by: Debora Fu 09/09/2023 12:52 PM Dictation workstation: [id number] [facility] Comment on above: Order Comment: LIEN pisano Population Healthon 09-05-20 Population Health Case Information Case Priority: None Programs: Transition Care Management Complex Case Management Chronic Care/Condition Management Behavioral Health CCM Referral Source: System Identified Referral Reason: System identified Case Type: Transition Care Management Risk Score: 3.16 Case Status: Enrolled (September 05, 2023) Date Assigned: September 05, 2023 Assigned By: Miguel Kurtz Date Enrolled: September 05, 2023 Assigned Primary Personnel: Miguel Kurtz Assigned Secondary Personnel: -- Case Physician: Fidencio POSEY, Dorie Jean Baptiste Problems Ongoing Acute ST elevation myocardial infarction (STEMI) Anxiety and depression COPD (chronic obstructive pulmonary disease) Current smoker History of total abdominal hysterectomy Hospital discharge follow-up HTN (hypertension), benign Polyneuropathy Primary insomnia RLS (restless legs syndrome) Walker as ambulation aid Historical No qualifying data Procedure/Surgical History PCI - Percutaneous coronary intervention (07/09/2023), Angioplasty, Gallbladder, Hysterectomy. Home Medications Albuterol (Eqv-ProAir HFA) 90 mcg/inh inhalation aerosol, 2 puff(s), Inhalation, q4hr alprazolam 1 mg Tab, 1 mg= 1 tab(s), Oral, QID, PRN amLODIPine 5 mg Tab, 5 mg= 1 tab(s), Oral, Daily, 1 refills aspirin 81 mg Oral EC Tab, 81 mg= 1 tab(s), Oral, Daily atorvastatin 40 mg Tab, 80 mg= 2 tab(s), Oral, Bedtime Coreg 3.125 mg Tab, 3.125 mg= 1 tab(s), Oral, BID, 1 refills Effexor XR 150 mg Cap-ER Handicap Placard, 5 years., See Instructions isosorbide mononitrate 30 mg ER Tab, 30 mg= 1 tab(s), Oral, Daily, 6 refills Lamictal 25 mg Tab losartan 100 mg Tab, 100 mg= 1 tab(s), Oral, Daily, 1 refills nitroglycerin 0.4 mg sublingual Tab, 0.4 mg= 1 tab(s), SubLingual, q5min, PRN quetiapine, 400 mg, Oral, qPM Ranexa 500 mg Tab-ER, 500 mg= 1 tab(s), Oral, BID ropinirole 1 mg Tab, 1 mg= 1 tab(s), Oral, Daily, 1 refills ticagrelor 90 mg oral tablet, 90 mg= 1 tab(s), Oral, BID, 1 refills traZODONE 100 mg Tab Trelegy Ellipta 100 mcg-62.5 mcg-25 mcg inhalation powder, 1 puff(s), Inhalation, Daily ZyPREXA 5 mg Tab Allergies BuSpar (Migraine, Unknown) sulfa drugs (Rash) Lyrica (Feels drunk, falls down) Nicotine Patch (Rash) Tape (Sensitive) sulfamethoxazole (Unknown (origin)) Social History Alcohol - Denies Alcohol Use, 09/13/2022 Household alcohol concerns: No., 06/13/2023 Substance Abuse - Denies Substance Abuse, 09/13/2022 Tobacco 10 or more cigarettes (1/2 pack or more)/day in last 30 days Tobacco Use:. Never Smokeless Tobacco Use:. Cigarettes, Started age 18.0 Years. Previous treatment: Nicotine replacement. Ready to change: Yes. Household tobacco concerns: No. Yes, 07/21/2023 Family History Family history is negative Screenings and Assessments 09/05/23 11:05:00 Result Name Value Comment Phone Call Monitoring Consent Agreed to continue call Phone Verification Patient Information Full name, street address and date of verified CM Program Enrollment Provides verbal consent for enrollment Goals and Interventions Care Plan Progress Note Admit Date: 09/01/2023 Date of Discharge: 09/02/2023 Follow-up appointment scheduled? yes, TCM with PCP Dr. Deangelo Luis 09/13/2023 at 1540, cardiology Dr. Jansen 10/27/2023 at 1345 Did you understand your discharge instructions? yes Are you able to follow them? yes Did you receive new medications? yes, ranolazine 500 mg BID Have you filled the Rx's? not yet, to pick remover today Are you taking them as prescribed? not yet Are you having difficulty eating or swallowing your pills? no Are you having any stomach upset, diarrhea or constipation? no How are you sleeping? didn't sleep well last night, concerned/nervous for PCI/cath scheduled 09/07/2023 at [facility] Are you having any pain? no Do you have everything you need at home to care for yourself? yes Do you have Home Health? no Spoke with patient for initial Transitional Care Management Program call. Patient is a moderate readmission risk score. Reviewed d/c instructions and dx of: Chest pain; Hypokalemia; CAD in [place] artery; COPD (chronic obstructive pulmonary disease); HTN (hypertension), benign; Anxiety and depression; RLS (restless legs syndrome); On deep vein thrombosis (DVT) prophylaxis; Depression, unspecified.Medicat ions reconciled with d/c list, patient, and EHR. Reviewed purpose and side effects of new medications with patient. Patient stated she is doing 'ok.' She does check her BP and it is WNL. Denies further episodes of CP. Patient is scheduled for PCI/cath on Tuesday, 09/07 at [facility]. She states during her cath in June she experienced some discomfort, with the radial access, encouraged patient to discuss with medical staff upon arrival to , verbalized understanding. Reassurance provided to patient. Patient does report decreased appetite since heart at (more content not included)... Normal [facility] BMPon 09-02-2023 Anion gap [Moles/Vol] 8 mmol/L Normal 6-16 [facility] Comment on above: Performed By: #### 2 130250, [id number], 6136941, [id number], 95997709, 3870054, 01832082, 9377088, 2963791 #### [facility] [address] [place] [address] Calcium [Mass/Vol] 8.7 mg/dL Low 8.9-11.1 [facility] Comment on above: Performed By: #### 2 848944, 8849400, 0217743, 238749293, 38236122, 8503576, 96029562, 7351036, 5375466 #### [facility] [address] [place] [address] Chloride [Moles/Vol] 109 mmol/L Normal 101-111 [facility] Comment on above: Performed By: #### 2 362354, 8878809, 2051529, 069432832, 66487010, 1163119, 30042430, 7813637, 2427137 #### [facility] [address] [place] [address] CO2 [Moles/Vol] 23 mmol/L Normal 21-31 [facility] Comment on above: Performed By: #### 2 989003, 4926759, 6223040, [id number], 19196055, 3679776, 80115769, 1025525, 0276276 #### [facility] [address] [place] [address] Creatinine [Mass/Vol] 0.6 mg/dL Normal 0.5-1.3 [facility] Comment on above: Performed By: #### 2 029209, 3397011, 7108145, 913588375, 29118387, 6256884, 57407651, 6473658, 3121636 #### [facility] [address] [place] [address] Glucose [Mass/Vol] 105 mg/dL Normal 55-199 [facility] Comment on above: Result Comment: If t his glucose result represents a fasting glucose, interpretation should refer to the following reference range: 55-99 mg/dL Performed By: #### 2 812872, 4389482, 2671261, 046071146, 51184321, 1442721, 03068199, 0981333, 3973200 #### [facility] [address] [place] [address] Potassium [Moles/Vol] 3.8 mmol/L Normal 3.5-5.3 [facility] Comment on above: Performed By: #### 2 745666, 9562829, 6031044, 441198678, 37385550, 9012623, 79939643, 5414748, 9022243 #### [facility] [address] [place] [address] Sodium [Moles/Vol] 136 mmol/L Normal 135-145 [facility] Comment on above: Performed By: #### 2 702171, 1493978, 9754481, 153499288, 79680463, 4747354, 12981947, 8519145, 9772437 #### [facility] [address] [place] [address] Urea nitrogen [Mass/Vol] 7 mg/dL Normal - [facility] Comment on above: Performed By: #### 2 706942, 8912625, 2421888, 345975412, 58500688, 9686399, 57598163, 0350370, 5528507 #### [facility] [address] [place] [address] Urea nitrogen/Creatinine [Mass ratio] 12 No Units Normal 09-02 [facility] Comment on above: Performed By: #### 2 941280, 8062917, 6513939, 809612506, 76689342, 1701721, 72244297, 7763721, 6217298 #### [facility] [address] [place] [address] CHEMISTRYOrdered By: SYSTEM SYSTEM on 09-02-2023 Anion gap [Moles/Vol] 8 mmol/L Normal 6 - 16 mEq/L [facility] Remisol Calcium [Mass/Vol] 8.7 mg/dL Low 8.9 - 11.1 mg/dL [facility] Remisol Chloride [Moles/Vol] 109 mmol/L Normal 101 - 111 mmol/ L [facility] Remisol CO2 [Moles/Vol] 23 mmol/L Normal 21 - 31 mmol/L [facility] Remisol Creatinine [Mass/Vol] 0.6 mg/dL Normal 0.5 - 1.3 mg/dL [facility] Remisol GFR/1.73 sq M.predicted among non-blacks MDRD (S/P/Bld) [Vol rate/Area] 101 mL/min/1.73 m2 Normal >=59mL/min/1.73 m2 [facility] Chem S Comment on above: Interpretive Data: C hronic kidney disease could be indicated at eGFR's of less than 60 mL/min/1.73m2. Kidney failure is indicated at less than 15 mL/min/1.73m2. Glucose [Mass/Vol] 105 mg/dL Normal 55 - 199 mg/dL [facility] Comment on above: Interpretive Data: I f this glucose result represents a fasting glucose, interpretation should refer to the following reference range: 55-99 mg/dL Magnesium [Mass/Vol] 2.0 mg/dL Normal 1.3 - 2.4 mg/dL [facility] Potassium [Moles/Vol] 3.8 mmol/L Normal 3.5 - 5.3 mmol/L [facility] Sodium [Moles/Vol] 136 mmol/L Normal 135 - 145 mmol/L [facility] Troponin I.cardiac [Mass/Vol] 8.40 pg/mL Low 10.10 - 27.10 pg/mL [facility] Remisol Comment on above: Interpretive Data: T wu 95% CI (Confidence Interval) PPV (Positive Predictive Value) for myocardial infarction in females is 38 pg/mL, in males 51 pg/mL. The results should be used in conjunction with clinical conditions of myocardial infarction. (Access High Sensitivity Troponin I Instructions For Use, Shivani Margo, June 2018) TSH Qn 0.75 m[IU]/L Normal 0.34 - 5.60 mcIU/mL [facility] Urea nitrogen [Mass/Vol] 7 mg/dL Normal 5 - 21 mg/dL [facility] Remisol Urea nitrogen/Creatinine [Mass ratio] 12 mg/mg Normal 10 - 20 [facility] Remisol CHEMISTRYOrdered By: Kailyn Farrell on 09-02-2023 HbA1c (Bld) [Mass fraction] 6.1 % High <=5.9% [facility] ChemAutoSS Cardiology Progress Noteon 1 Cardiology Progress Note Cardiology consult received?full note to follow Reason for consult: Chest pain Livia Jacobo is a 62-year-old female patient well-known to Dr. Jansen, seen in office yesterday. She has known CAD, recent STEMI on 07/09/2023 with PCI of circumflex. She has some ischemic cardiomyopathy with an EF around 45% per LV gram at time of STEMI. She has a CUSTOM FURRIER of RCA with robust [id number] collaterals. She was seen in the office yesterday with ongoing anginal symptoms despite isosorbide mononitrate. Plans made for high risk PCI/attempt at CUSTOM FURRIER at [place], a level 3 [employer] [facility]. She presented to [facility], ER 09/01/2023 with complaints of chest pain. AMI is ruled out. She was found to be notably hypokalemic. Cardiology is consulted. At time of exam, she is free of any chest discomfort. She would like to be discharged home and set up for outpatient PCI. Vitals have been stable overnight. [facility] + PCI - STEMI 07/09/23 Findings LMT: Normal left main trunk with bifurcation LAD: Normal caliber with mild irregularity and no stenosis, reaches the apex. LCx: Normal caliber with 99% OM1 lateral stenosis, reaches the lateral wall. RCA: Normal caliber with 100% mid stenosis, dominant, reaches the inferior wall. Collaterals from left to right robust. Hemodynamics: Elevated LVEDP at 27 mmHg with no gradient across the aortic valve. Left ventriculography: Abnormal LV systolic function, EF 45 %, inferolateral hypokinesis wall motion abnormalities and normal chamber size with no mitral regurgitation. PCI note: Successful PCI circumflex OM 1 lateral 99% stenosis ANNITA 2.5 flow reduced to 0% residual ANNITA-3 flow after implantation of a Xience 2.5/15 postdilated 2.75 NC at high pressure. Conclusions: Posterior STEMI secondary to left circumflex status post primary PCI with MYNOR x1. Importance of antiplatelet compliance was emphasized including risk of stent thrombosis or . The patient understands as well as his accompanying family member/friend that the patient may have stent thrombosis or heart attack and the patient agrees. I myself have specifically counseled the patient regarding stent thrombosis risk including and the patient will additionally be counseled by the [facility] team and in follow-up. CAD: DAPT, beta-tamika, statin, risk factor modification. [1] A/P Chest Pain with Known CAD Patient is ruled out for SD She has known CAD with a CUSTOM FURRIER of RCA with good collaterals. We will proceed with high risk PCI at [facility] next Tuesday as previously discussed, instructions for procedure discharge summary She will continue her guideline directed medical therapy, including DAPT with asa/Brilinta, and we will add Ranexa for chest discomfort Patient may be discharged to home, relayed this to Dr Frausto Patient is seen and examined with Dr. Jansen. [1] Op Note; Sheila POSEYTiffany 07/09/2023 20:48 EDT Normal [facility] Comment on above: Result Comment: Elec tronically Signed By: Maggie DYER CNP\.br\Date and Time Signed: 09/02/23 12:24 EDT\.br\Electronically Co-Signed By: Tiffany Jansen MD\.br\Date and Time Co-Signed: 09/12/23 09:52 EDT Discharge Instructionson Discharge Instructions [id number] Normal [facility] Discharge Note-Nursingon Discharge Note-Nursing LIVIA JACOBO :1960 Visit Date:09/01/2023 Inpatient Discharge Instructions Your Care Team Admitting Physician - Alec LUTHER DO Consulting Physician - [facility] Cardio, XXXX Reason for Your Visit chest pain nausea Your Diagnosis Chest pain Hypokalemia CAD in [place] artery COPD (chronic obstructive pulmonary disease) HTN (hypertension), benign Anxiety and depression RLS (restless legs syndrome) On deep vein thrombosis (DVT) prophylaxis Acute ST elevation myocardial infarction (STEMI) Chest pain Depression, unspecified Nausea Tests Performed Automated Diff BMP CBC w/ Auto Diff eGFR Hemoglobin A1c Hepatic Function Panel Magnesium Level Mg Level PT & PTT Troponin Troponin 0 Hr. Troponin 3 Hr. TSH With T4fr Reflex Echo Transthoracic Complete -- Results Pending -- XR Chest Single View Please visit your patient portal for your results or contact your primary care physician. This Is Your Medications List [facility] Prescription (Rosangela Gautam, 5 years.) albuterol (Albuterol (Eqv-ProAir HFA) 90 mcg/inh inhalation aerosol) alprazolam (alprazolam 1 mg Tab) amlodipine (amLODIPine 5 mg Tab) aspirin (aspirin 81 mg Oral EC Tab) atorvastatin (atorvastatin 40 mg Tab) carvedilol (Coreg 3.125 mg Tab) fluticasone/umeclid inium/vilanterol (Trelegy Ellipta 100 mcg-62.5 mcg-25 mcg inhalation powder) isosorbide mononitrate (isosorbide mononitrate 30 mg ER Tab) lamotrigine (Lamictal 25 mg Tab) losartan (losartan 100 mg Tab) nitroglycerin (nitroglycerin 0.4 mg sublingual Tab) olanzapine (ZyPREXA 5 mg Tab) quetiapine ranolazine (Ranexa 500 mg Tab-ER) ropinirole (ropinirole 1 mg Tab) ticagrelor (ticagrelor 90 mg oral tablet) trazodone (traZODONE 100 mg Tab) venlafaxine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 rate/Area] 101 mL/min/1.73 m2 Normal >=59 [facility] Comment on above: Order Comment: Order added by Discern Expert. 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 Kidney failure is indicated at less than 15 mL/min/1.73m2. Performed By: #### 2 579654, 3243506, 5902198, 695000968, 36385432, 7899979, 19607256, 3852317, 6179707 #### [facility] [address] [place] [address] Auto Diffon 09-01-2023 Basophils/100 WBC (Bld) 0.7 % Normal 0.0-2.0 [facility] Comment on above: Order Comment: Order Added by Discern Expert. Performed By: #### 2 630025, 8921278, 7333191, 411180745, 72436218, 6487025, 32438040, 9255665, 9256113 #### [facility] [address] [place] [address] Basophils/Leukocytes Auto (Bld) [Pure # fraction] 0.0 E9/L Normal 0.0-0.2 [facility] Comment on above: Order Comment: Order Added by Discern Expert. Performed By: #### 2 859238, 6124909, 7481158, 366701756, 11734211, 1745368, 10642600, 5613358, 7996458 #### [facility] [address] [place] [address] Eosinophils/100 WBC (Bld) 3.1 % Normal 0.0-8.0 [facility] Comment on above: Order Comment: Order Added by Discern Expert. Performed By: #### 2 458897, 8970149, 4623906, 222137851, 51989976, 9282202, 40653489, 1292918, 0505466 #### [facility] [address] [place] [address] Eosinophils/Leukocyt es Auto (Bld) [Pure # fraction] 0.2 E9/L Normal 0.0-0.5 [facility] Comment on above: Order Comment: Order Added by Discern Expert. Performed By: #### 2 927286, 6008296, 8682555, 666162390, 84534884, 4047725, 61141184, 8204813, 1224050 #### [facility] [address] [place] [address] Lymphocytes/100 WBC (Bld) 29.3 % Normal 14.0-50.0 [facility] Comment on above: Order Comment: Order Added by Lupe Expert. Performed By: #### 2 818114, 7889788, 8614643, 809382698, 98461809, 4130901, 73493235, 8062950, 4842239 #### [facility] [address] [place] [address] Lymphocytes/Leukocyt es Auto (Bld) [Pure # fraction] 2.0 E9/L Normal 1.0-4.0 [facility] Comment on above: Order Comment: Order Added by Discern Expert. Performed By: #### 2 041553, 3495473, 0988594, 925055156, 64636592, 5022999, 67714206, 1378114, 4168722 #### [facility] [address] [place] [address] Monocytes/100 WBC (Bld) 5.5 % Normal 4.0-14.0 [facility] Comment on above: Order Comment: Order Added by Discern Expert. Performed By: #### 2 376765, 6477047, 5570878, 468068196, 87197626, 2199945, 31140977, 7065270, 1526318 #### [facility] [address] [place] [address] Monocytes/Leukocytes Auto (Bld) [Pure # fraction] 0.4 E9/L Normal 0.2-1.0 [facility] Comment on above: Order Comment: Order Added by Discern Expert. Performed By: #### 2 227466, 2475909, 0429847, 455130103, 57660251, 4129882, 74977844, 7191522, 7437991 #### [facility] [address] [place] [address] Neutrophils/100 WBC (Bld) 61.4 % Normal 36.0-75.0 [facility] Comment on above: Order Comment: Order Added by Discern Expert. Performed By: #### 2 982184, 7567782, 3001278, 017347802, 65369796, 5080437, 43035099, 8530783, 7867928 #### [facility] [address] [place] [address] Neutrophils/Leukocyt es Auto (Bld) [Pure # fraction] 4.1 E9/L Normal 2.0-7.5 [facility] Comment on above: Order Comment: Order Added by Discern Expert. Performed By: #### 2 234470, 2326257, 2454640, 155965462, 09582269, 4357954, 06755591, 0895602, 7332018 #### [facility] [address] [place] [address] BMPon 09-01-2023 Anion gap [Moles/Vol] 11 mmol/L Normal 6-16 [facility] Comment on above: Performed By: #### 2 050412, 3329734, 3399079, 041465515, 41781021, 1287987, 56887300, 0831716, 4471717 #### [facility] [address] [place] [address] Calcium [Mass/Vol] 8.7 mg/dL Low 8.9-11.1 [facility] Comment on above: Performed By: #### 2 957807, 5790848, 8775973, 238536738, 61626988, 5767344, 81321727, 8511870, 1514322 #### [facility] [address] [place] [address] Chloride [Moles/Vol] 102 mmol/L Normal 101-111 [facility] Comment on above: Performed By: #### 2 617000, 8861146, 6336483, 673901448, 51849270, 5642560, 92183750, 3711724, 2427809 #### [facility] [address] [place] [address] CO2 [Moles/Vol] 21 mmol/L Normal 21-31 [facility] Comment on above: Performed By: #### 2 641218, 8290133, 0024059, 797765784, 50535130, 9550951, 02058476, 4790427, 9985252 #### [facility] [address] [place] [address] Creatinine [Mass/Vol] 0.7 mg/dL Normal 0.5-1.3 [facility] Comment on above: Performed By: #### 2 262410, 0043645, 3186451, 850826734, 52985411, 8992635, 97360985, 9320776, 5633120 #### [facility] [address] [place] [address] Glucose [Mass/Vol] 166 mg/dL Normal 55-199 [facility] Comment on above: Result Comment: If t his glucose result represents a fasting glucose, interpretation should refer to the following reference range: 55-99 mg/dL Performed By: #### 2 179108, 1578423, 6253368, 870876557, 88835280, 2167635, 69250968, 3146105, 8782768 #### [facility] [address] [place] [address] Potassium [Moles/Vol] 2.7 mmol/L Abnormal 3.5-5.3 [facility] Comment on above: Result Comment: Crit ical Result S_K:2.7 Called to SENAIT LEI AT by SHERRILL KELLEY And Read Back For Confirmation at: 09/01/2023 20:07:39\Critical Result verified by repeat analysis Performed By: #### 2 008206, 5320417, 5219224, 128790193, 71685254, 6008837, 85882094, 4843384, 1484807 #### [facility] [address] [place] [address] Sodium [Moles/Vol] 131 mmol/L Low 135-145 [facility] Comment on above: Performed By: #### 2 584835, 2370941, 5967827, 205560603, 08673900, 2787128, 89226048, 9486121, 8897971 #### [facility] [address] [place] [address] Urea nitrogen [Mass/Vol] 8 mg/dL Normal 5-21 [facility] Comment on above: Performed By: #### 2 197498, 5154250, 0895207, 643485530, 61955913, 1847148, 05162879, 6189637, 7699739 #### [facility] [address] [place] [address] Urea nitrogen/Creatinine [Mass ratio] 11 No Units Normal 10-20 [facility] Comment on above: Performed By: #### 2 074365, 1105148, 6130916, 676644463, 99576015, 3224641, 10408761, 7186593, 0387145 #### [facility] [address] [place] [address] CBC w/ Auto Diffon Erythrocyte distribution width (RBC) [Ratio] 13.3 % Normal 10.9-14.2 [facility] Comment on above: Performed By: #### 2 248610, 4359517, 1531227, 239250562, 76614538, 8709656, 63037095, 4419692, 5597974 #### [facility] [address] [place] [address] Hematocrit (Bld) [Volume fraction] 38.5 % Normal 34.0-46.0 [facility] Comment on above: Performed By: #### 2 075537, 3386750, 0901706, 918583728, 35544579, 0342246, 67498094, 8753288, 9390134 #### [facility] [address] [place] [address] Hemoglobin (Bld) [Mass/Vol] 13.1 g/dL Normal 12.0-16.0 [facility] Comment on above: Performed By: #### 2 614438, 7793781, 1593137, 061481446, 20555615, 5491271, 41262103, 4007031, 9040575 #### [facility] [address] [place] [address] MCH (RBC) [Entitic mass] 31.9 pg Normal 27.0-34.0 [facility] Comment on above: Performed By: #### 2 708791, 5306788, 2047102, 946544286, 26360108, 9854938, 82202777, 4864511, 1540511 #### [facility] [address] [place] [address] MCHC (RBC) [Mass/Vol] 34.1 g/dL Normal 31.4-36.0 [facility] Comment on above: Performed By: #### 2 291717, 2275532, 0112748, 803971896, 64248253, 6259258, 66569354, 4485015, 5508375 #### [facility] [address] [place] [address] MCV (RBC) [Entitic vol] 93.5 fL Normal 80.0-100.0 [facility] Comment on above: Performed By: #### 2 053049, 4161410, 7559987, 590088502, 06353769, 6605933, 46587655, 4870117, 7282078 #### [facility] [address] [place] [address] Platelet mean volume (Bld) [Entitic vol] 8.0 fL Normal 6.4-10.8 [facility] Comment on above: Performed By: #### 2 670050, 4404410, 4814331, 173256374, 53418348, 4232617, 34574876, 5563368, 8162939 #### [facility] [address] [place] [address] Platelets (Bld) [#/Vol] 240.0 E9/L Normal 150.0-500.0 [facility] Comment on above: Performed By: #### 2 972519, 3916265, 3937523, 596092508, 20883703, 6426152, 51620353, 9485242, 3672262 #### [facility] [address] [place] [address] RBC (Bld) [#/Vol] 4.1 E12/L Low 4.3-5.9 [facility] Comment on above: Performed By: #### 2 514912, 9622886, 9149434, 716314001, 49832021, 7474470, 53497935, 7806715, 2546620 #### [facility] [address] [place] [address] WBC corrected for nucl RBC Auto (Bld) [#/Vol] 6.8 E9/L Normal 4.0-11.0 [facility] Comment on above: Performed By: #### 2 794056, 3867595, 6561537, 330786962, 31212982, 0728501, 14356525, 3655862, 9287404 #### [facility] [address] [place] [address] CHEMISTRYOrdered By: SYSTEM SYSTEM on 09-01-2023 Troponin I.cardiac [Mass/Vol] 9.00 pg/mL Low 10.10 - 27.10 pg/mL [facility] Remisol Comment on above: Interpretive Data: T he 95% CI (Confidence Interval) PPV (Positive Predictive Value) for myocardial infarction in females is 38 pg/mL, in males 51 pg/mL. The results should be used in conjunction with clinical conditions of myocardial infarction. (Access High Sensitivity Troponin I Instructions For Use, Shivani [place], June 2018) Albumin [Mass/Vol] 3.5 g/dL Normal 3.3 - 5.0 gm/dL [facility] Albumin/Globulin [Mass ratio] 1.0 {ratio} Low 1.1 - 2.2 [facility] ALP [Catalytic activity/Vol] 136 [iU]/d High 21 - 98 Int._Unit/L [facility] ALT No additional P-5'-P [Catalytic activity/Vol] 20 [iU]/d Normal 6 - 46 Int._Unit/L [facility] Anion gap [Moles/Vol] 11 mmol/L Normal 6 - 16 mEq/L [facility] AST [Catalytic activity/Vol] 24 [iU]/d Normal 5 - 43 Int._Unit/L [facility] Bilirubin [Mass/Vol] 0.1 mg/dL Normal 0.0 - 1.1 mg/dL [facility] Bilirubin.direct [Mass/Vol] mg/dL Normal 0.1 - 0.4 mg/dL [facility] Bilirubin.indirect [Mass or moles/Vol] Unable to Calculate mg/dL Invalid Interpretation Code 0.1 - 0.9 mg/dL [facility] Calcium [Mass/Vol] 8.7 mg/dL Low 8.9 - 11.1 mg/dL [facility] Chloride [Moles/Vol] 102 mmol/L Normal 101 - 111 mmol/ L [facility] CO2 [Moles/Vol] 21 mmol/L Normal 21 - 31 mmol/L [facility] Creatinine [Mass/Vol] 0.7 mg/dL Normal 0.5 - 1.3 mg/dL [facility] GFR/1.73 sq M.predicted among non-blacks MDRD (S/P/Bld) [Vol rate/Area] 97 mL/min/1.73 m2 Normal >=59mL/min/1.73 m2 [facility] Chem S Comment on above: Interpretive Data: C hronic kidney disease could be indicated at eGFR's of less than 60 mL/min/1.73m2. Kidney failure is indicated at less than 15 mL/min/1.73m2. Globulin (S) [Mass/Vol] 3.4 g/dL Normal 1.4 - 4.0 gm/dL [facility] Remisol Glucose [Mass/Vol] 166 mg/dL Normal 55 - 199 mg/dL [facility] Remisol Comment on above: Interpretive Data: I f this glucose result represents a fasting glucose, interpretation should refer to the following reference range: 55-99 mg/dL Magnesium [Mass/Vol] 1.8 mg/dL Normal 1.3 - 2.4 mg/dL [facility] Potassium [Moles/Vol] 2.7 mmol/L Invalid Interpretation Code 3.5 - 5.3 mmol/L [facility] Remisol Comment on above: Result Comment: Crit ical Result S_K:2.7 Called to SENAIT LEI AT ER by SHERRILL KELLEY And Read Back For Confirmation at: 09/01/2023 20:07:39\Critical Result verified by repeat analysis Protein [Mass/Vol] 6.9 g/dL Normal 6.0 - 7.8 gm/dL [facility] Remisol Sodium [Moles/Vol] 131 mmol/L Low 135 - 145 mmol/L [facility] Remisol Troponin I.cardiac [Mass/Vol] 8.20 pg/mL Low 10.10 - 27.10 pg/mL [facility] Remisol Comment on above: Interpretive Data: T he 95% CI (Confidence Interval) PPV (Positive Predictive Value) for myocardial infarction in females is 38 pg/mL, in males 51 pg/mL. The results should be used in conjunction with clinical conditions of myocardial infarction. (Access High Sensitivity Troponin I Instructions For Use, Shivani [place], June 2018) Urea nitrogen [Mass/Vol] 8 mg/dL Normal 5 - 21 mg/dL [facility] Remisol Urea nitrogen/Creatinine [Mass ratio] 11 mg/mg Normal 10 - 20 [facility] Remisol COAGULATIONOrdered By: Yoli Case on 09-01-2023 aPTT Coag (PPP) [Time] 31.9 s Normal 25.1 - 36.5 second(s) [facility] Auto Coag Comment on above: Interpretive Data: Rah aguilar 15 days - 4 weeks 1 - 5 months 6 - 11 months 1 - 5 years 6 - 10 years 11 - 17 years PTT Mean: 35.4 (27.6-45.6) Mean: 33.5 (24.8-40.7) Mean: 32.4 (25.1-40.7) Mean: 31.6 (24.0-39.2) Mean: 31.6 (26.9-38.7) Mean: 31.0 (24.6-38.4) Pediatric Reference ranges were obtained from a study by ivet Lundberg alPascale prepared from 1437 samples obtained at 7 different centers using the same coagulation reagent and instrumentation as [facility]. Currently there are no coagulation studies available worldwide for children to 14 days, and no normal ranges. Heparin therapeutic range (represented by Anti-Factor Xa activity of 0.2 - 0.4 U/mL) corresponds to PTT of 56.6 - 109.0 sec. INR Coag (PPP) [Relative time] 1.0 {INR} Invalid Interpretation Code [facility] Auto Coag Comment on above: Interpretive Data: I NR results are specifically intended to assess patients stabilized on long-term Anticoagulation therapy suggested INR s Less Intensive Anticoagulation 2.0 3.0 Conventional Range 3.0 4.5 PT Coag (PPP) [Time] 11.5 s Normal 9.4 - 1 2.5 second(s) [facility] Auto Coag Comment on above: Interpretive Data: 1 5 days - 4 weeks 1 - 5 months 6 -11 months 1 5 years 6 10 years 11 -17 years Mean: 11.2 (9.5 12.6) Mean: 11.0 (9.7 12.8) Mean: 11.0 (9.8 13.0) Mean: 11.3 (9.9 13.4) Mean: 11.7 (10.0 14.6) Mean: 11.8 (10.0 - 14.1) Pediatric Reference ranges were obtained from a study by Messi Chambers et al. prepared from 1437 samples obtained at 7 different centers using the same coagulation reagent and instrumentation as [facility]. Currently there are no coagulation studies available worldwide for children to 14 days, and no normal ranges. Consent for Treatmenton 08-14 Consent for Treatment [id number] Normal [facility] ED Clinical Summaryon 2022 ED Clinical Summary (Inserted Image. Unable to display[address] [address] ED Clinical Summary Person Information Name: LIVIA JACOBO/Tatiana Age: 62 Years : 1960 Sex: Female Language: Slovenian PCP: Dorie Luis MD Marital Status: Visit Id: Visit Reason: Nausea; Chest pain; CHEST PAIN Speciality: Acuity: 2 Enc Type: Observation Med Service: Medical Arrival: 09/01/2023 18:57:13 Discharge: LOS: 000 02:57 Checkin: 09/01/2023 18:57:13 Checkout: 09/01/2023 21:54:30 Dispo Type: Admitted as IP to this [facility] EVENTS: Event Name Event Status Request Date/Time Start Date/Time Complete Date/Time Arrive Complete 09/01/2023 18:57:13 09/01/2023 18:57:13 09/01/2023 18:57:13 Document Home Meds Request 09/01/2023 18:57:13 Triage Complete 09/01/2023 18:57:13 09/01/2023 19:01:32 09/01/2023 19:01:32 Bed Assign Complete 09/01/2023 18:57:59 09/01/2023 18:57:59 09/01/2023 18:57:59 Dr Exam Complete 09/01/2023 18:57:59 09/01/2023 19:01:39 09/01/2023 19:01:39 RN Exam Complete 09/01/2023 18:57:59 09/01/2023 19:52:03 09/01/2023 19:52:03 EKG Complete 09/01/2023 18:58:39 09/01/2023 19:01:43 Registration Complete 09/01/2023 19:01:39 09/01/2023 19:37:24 09/01/2023 19:37:24 Pending Labs Request 09/01/2023 19:05:39 Lab Complete 09/01/2023 19:05:39 09/01/2023 20:08:06 Meds Admin Request 09/01/2023 19:05:39 Patient Care Request 09/01/2023 19:05:39 RT Request 09/01/2023 19:05:39 X-Ray Complete 09/01/2023 19:05:39 09/01/2023 19:24:04 09/01/2023 19:54:58 Pending Labs Complete 09/01/2023 19:28:59 09/01/2023 19:28:59 09/01/2023 20:08:04 Lab Complete 09/01/2023 19:28:59 09/01/2023 19:28:59 09/01/2023 20:08:04 Reg Complete Request 09/01/2023 19:37:24 Reg Bed Request Complete 09/01/2023 19:37:24 09/01/2023 19:37:24 09/01/2023 19:37:24 Wet Read Request 09/01/2023 19:54:58 Pending Labs Complete 09/01/2023 20:00:09 09/01/2023 20:00:09 09/01/2023 20:00:16 Lab Complete 09/01/2023 20:00:09 09/01/2023 20:00:09 09/01/2023 20:00:16 Meds Admin Request 09/01/2023 20:09:39 Consult Request 09/01/2023 20:18:50 Hospitalist Consult Request 09/01/2023 20:18:50 Bed Request Request 09/01/2023 20:21:04 Reg Bed Request Complete 09/01/2023 20:21:04 09/01/2023 20:26:37 09/01/2023 20:26:37 Admit Request 09/01/2023 20:21:04 Patient Care Request 09/01/2023 20:29:51 Patient Care Request 09/01/2023 20:29:52 Patient Care Request 09/01/2023 20:29:52 Patient Care Request 09/01/2023 20:29:52 Meds Admin Complete 09/01/2023 20:39:02 09/01/2023 20:50:23 Pending Labs Complete 09/01/2023 20:53:46 09/01/2023 20:53:46 09/01/2023 20:53:47 ADDRESS: [address] [place] [id number] PHYS DOC NOTES: MEDICAL INFORMATION: Prescriptions Given: Medications to Continue with No Changes Other Medications albuterol (Albuterol (Eqv-ProAir HFA) 90 mcg/inh inhalation aerosol) 2 Puffs Inhalation every 4 hours. as needed. alprazolam (alprazolam 1 mg Tab) 1 Tablets By Mouth 4 times a day as needed for anxiety. amlodipine (amLODIPine 5 mg Tab) 1 Tablets By Mouth every day. Refills: 1. aspirin (aspirin 81 mg Oral EC Tab) 1 Tablets By Mouth every day. atorvastatin (atorvastatin 40 mg Tab) 2 Tablets By Mouth at bedtime. Refills: 0. carvedilol (Coreg 3.125 mg Tab) 1 Tablets By Mouth 2 times a day. Refills: 1. fluticasone/umeclid inium/vilanterol (Trelegy Ellipta 100 mcg-62.5 mcg-25 mcg inhalation powder) 1 Puffs Inhalation every day. isosorbide mononitrate (isosorbide mononitrate 30 mg ER Tab) 1 Tablets By Mouth every day for 30 Days. Refills: 6. lamotrigine (Lamictal 25 mg Tab) 3 tablets at bedtime. losartan (losartan 100 mg Tab) 1 Tablets By Mouth every day. Refills: 1. [facility] Prescription (Handicap Placard, 5 years.) Handicap Placard, 5 years.. Refills: 0. nitroglycerin (nitroglycerin 0.4 mg sublingual Tab) 1 Tablets Sublingual every 5 minutes as needed Chest pain. Refills: 0. olanzapine (ZyPREXA 5 mg Tab) one tablet at bedtime. quetiapine 400 Milligram By Mouth once a day (in the evening). ropinirole (ropinirole 1 mg Tab) 1 Tablets By Mouth every day. Refills: 1. ticagrelor (ticagrelor 90 mg oral tablet) 1 Tablets By Mouth 2 times a day. MAINTENACE DOSE. Refills: 1. trazodone (traZODONE 100 mg Tab) 3 tablets at bedtime. venlafaxine (Effexor XR 150 mg Cap-ER) 2 capsules at bedtime. PATIENT EDUCATION INFORMATION: Instructions: Follow up: DIAGNOSIS: 1:Chest pain; 2:Hypokalemia; 3:COPD (chronic obstructive pulmonary disease); 4:HTN (hypertension), benign Normal [facility] ED Note-Physicianon 09-01-20 ED Note-Physician Basic Information Time Seen: Sarah Friedman DO 09/01/2023 19:01 Chief Complaint Pt reports she was eating dinner around 1800 when she started having chest pain with associated nausea. SD this year in june, 1 stent placed by sheila. +thinners. 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 History of Present Illness Patient is a 62-year-old female with past medical history of hypertension, hyperlipidemia, COPD, CAD status post stenting presenting to the ED for evaluation of chest pain with associated nausea. Patient had a stent placed earlier this year in June by Dr. Jansen, states she still has some blockages and they were planning to do a staged PCI at [place]. Patient states she was eating dinner and started having midsternal chest pressure with associated nausea similar to when she had her stent placed in June. Patient has been taking her medications as prescribed. Denies any recent illness, fevers, chills, vomiting. Review of Systems A 10 point review of systems is negative except as noted above. Medical and Surgical History: Reviewed and noted Social history: Lives at home Tobacco: Denies Physical Exam Vitals & Measurements T: 36.8 ?C(Oral) HR: 91(Monitored) RR: 20 BP: 103/50 SpO2: 92% HT: 154 cm WT: 72.6 kg BMI: 30.61 General: Well developed, non toxic appearing, no acute distress HEENT: Head atraumatic, Mucosa moist, hearing grossly normal Neck: No JVD, tracheal deviation Cardiac: Regular rate, rhythm, no murmurs, or gallops, 2+ radial pulses Respiratory: Lungs clear to auscultation B/L, normal respiratory effort Abdomen: Soft non tender, no rebound or guarding, no peritoneal signs Extremities: No edema noted in the LE B/L, no tenderness to palpation Neurologic: Alert and oriented, speech clear Skin: No rashes or lesions Psych: Appropriate mood and behavior Medical Decision Making MEDICAL DECISION MAKING Number and Complexity of Problems Differential Diagnosis: [] [facility] Data External documents reviewed: [] My EKG interpretation: [] My CT interpretation: [] My X-ray interpretation: [] My Ultrasound interpretation: [] Decision rules/scores evaluated: Heart Score for Major Cardiac Event History: Example factors for history - pattern of chest pain, onset, duration, relation with exercise, stress or cold, localization, concominant symptoms. reaction to sublingual nitrates, [X] Highly suspicious +2 [] Moderately suspicious +1 [] Slightly suspicious 0 EKG: [] Significant ST-Depression +2 [X] Non specific repolarization disturbance +1 [] Normal 0 Age: [] >= 65 +2 [X] 45-65 + 1 [] <45 0 Risk Factors: (HLD, HTN, DM, Cigarette Smoking, Pos Family Hx, Obesity) [X] >3 risk factors or hx of atheroslerotic disease + 2 [] 1-2 risk factors + 1 [] No risk factors known 0 Troponin: [] >= 3X normal + 2 [] 1-3X normal + 1 [x] <= Normal 0 - [] 0-3 Points 0.9 - 1.7% risk of major adverse cardiac event in 6 weeks [X] 4-6 Points 12-16.6% risk of major adverse cardiac event in 6 weeks [] 7-10 Points 50-65% risk of major adverse cardiac event in 6 weeks - [] 0-3 Points with 2 sets of negative cardiac markers <1% risk of major adverse cardiac event in 30 days. - Discussed with: [] Treatment and Disposition ED Course: Patient is a 62-year-old female presenting to the ED for evaluation of chest pressure and nausea. Patient nontoxic and on arrival, no acute distress. EMS was called patient was given aspirin in addition to nitroglycerin with resolution of her chest pain. Cardiac work-up is obtained, EKG does show slight lateral ST depressions however this has been on previous EKGs. Patient's laboratory evaluation reveals a potassium of 2.7 otherwise is unremarkable, first troponin is negative. Patient is given potassium replacement in the ED due to her concerning story in addition to residual CAD that still requiring PCI discussed the case with the hospitalist who accepts the patient for admission. Patient and daughter are agreeable with this plan. Shared decision making: [] Code status: [] Assessment/Plan Chest pain (R07.9: Chest pain, unspecified) Hypokalemia (E87.6: Hypokalemia) Orders: nitroglycerin, 0.4 mg = 1 tab(s), Tab, SubLingual, q5min PRN Chest pain for 3 dose(s), Stop date Limited # of times, STAT, Start date 09/01/23 19:05:00 EDT, Hold for SBP < 110, 09/01/23 19:05:00 EDT ondansetron, 4 mg = 2 mL, Injection, IV Push, Once, Stop date 09/01/23 20:38:00 EDT, STAT, Start date 09/01/23 20:38:00 EDT, 09/01/23 20:38:00 EDT potassium bicarbonate, 50 mEq = 2 tab(s), Tab-Eff, Oral, Once, Stop date 09/01/23 20:09:00 EDT, STAT, Start date 09/01/23 20:09:00 EDT, 09/01/23 20:09:00 EDT potassium chloride + Generic Diluent 100 mL, 20 mEq = 100 mL, IV Piggyback, q2hr (more content not included)... Normal [facility] Comment on above: Result Comment: Elec tronically Signed By: Sarah Friedman DO\Date and Time Signed: 09/01/23 21:52 EDT ED Patient Education Noteon 09-01-2023 ED Patient Education Note Normal [facility] ED Patient Summaryon 023 ED Patient Summary [address] [address] Patient Discharge Instructions Person Information Name: LIVIA JACOBO Age: 62 Years Arrival Date: 09/01/2023 18:57:13 Discharge Diagnosis: 1:Chest pain; 2:Hypokalemia; 3:COPD (chronic obstructive pulmonary disease); 4:HTN (hypertension), benign Primary Care Physician: Dorie Luis MD Provider Information Primary Provider: Sarah Friedman DO Advanced Lining Finisher:None The exam and treatment you received in the Emergency Department were for an urgent problem and are not intended as complete care. It is important that you follow up with a doctor, nurse practitioner, or physician?s assistant program director for ongoing care. If your symptoms become worse or you do not improve as expected and you are unable to reach your usual health care provider, you should return to the Emergency Department. We are available 24 hours a day. LIVIA JACOBO has been given the following list of patient education materials, prescriptions and follow-up instructions: Follow-up Instructions: In the event that this physician does not participate in your insurance network, please consult with your insurance company to find a nearby participating provider. Patient Education Materials: A MESSAGE TO ALL PATIENTS REGARDING OPIOIDS PRESCRIPTION OPIOIDS: WHAT YOU NEED TO KNOW Prescription opioids can be used to help relieve ujqmkmlv-pt-flmcoe pain and are often prescribed following a surgery or injury, or for certain health conditions. These medications can be an important part of the treatment but also come with serious risks. It is important to work with your healthcare provider to make sure you are getting the safest, most effective care. WHAT ARE THE RISKS AND SIDE EFFECTS OF OPIOID USE? Prescription opioids carry serious risks of addiction and overdose, especially with prolonged use. An opioid overdose, often marked by slowed breathing, can cause sudden . The use of prescription opioids can have a number of side effects as well, even when taken as directed: ? Tolerance?meaning you might need to take more of the medication for the same pain relief ? Physical dependence?meaning you have symptoms of withdrawal when a medication is stopped ? Increased sensitivity to pain ? Constipation ? Nausea, vomiting, and dry mouth ? Sleepiness and dizziness ? Confusion ? Depression ? Low levels of testosterone that can result in lower sex drive, energy, and strength ? Itching and sweating RISKS ARE GREATER WITH: ? History of drug misuse, substance use disorder, or overdose ? Mental health conditions (such as depression or anxiety) ? Sleep apnea ? Older age (65 years and older) ? Avoid alcohol while taking prescription opioids. Also, unless specifically advised by your health care provider, medications to avoid include: ? Benzodiazepines (such as Xanax or Valium) ? Muscle relaxants (such as Soma or Flexeril) ? Hypnotics (such as Ambien or Lunesta) ? Other prescription opioids KNOW YOUR OPTIONS Talk to your health care provider about ways to manage your pain that don?t involve prescription opioids. Some of these options may actually work better and have fewer risks and side effects. Options may include: ? Pain relievers such as acetaminophen, ibuprofen, and naproxen ? Some medication that are also used for depression or seizures ? Physical therapy and exercise ? Cognitive behavioral therapy, a psychological, goal-directed approach, in which patients learn how to modify physical, behavioral, and emotional triggers of pain and stress. IF YOU ARE PRESCRIBED OPIOIDS FOR PAIN: ? Never take opioids in greater amounts or more often than prescribed. ? Follow up with your primary health care provider. o Work together to create a plan on how to manage your pain. o Talk about ways to help manage your pain that don?t involve prescription opioids. o Talk about any and all concerns and side effects. ? Help prevent misuse and abuse o Never sell or share prescription opioids. o Never use another person?s prescription opioids. ? Store prescription opioids in a secure place and out of reach of others (this may include visitors, children, friends, and family). ? Safely dispose of unused prescription opioids: Find your community drug take-back program or your pharmacy mail-back program, or flush them down the toilet, following guidance from the Food and Drug Administration (www.fda.gov/Drugs/ ResourcesForYou). ? Visit www.cdc.gov/drugove rdose to learn about the risks of opioids abuse and overdose. ? If you believe you may be struggling with addiction, tell your health day care director and ask for guidance or call SAMHSA?S National Helpline at 2-452-513-HELP. v Source: US Department of Health and Human Services/Center for Disease Control & Prevention Glendy (more content not included)... Normal [facility] HEMATOLOGYOrdered By: SYSTEM SYSTEM on 09-01-2023 Basophils/100 WBC (Bld) 0.7 % Normal 0.0 - 2.0 % [facility] HemeAutoSS Basophils/Leukocytes Auto (Bld) [Pure # fraction] 0.0 E9/L Normal 0.0 - 0.2 E9/L [facility]AutoSS Eosinophils/100 WBC (Bld) 3.1 % Normal 0.0 - 8.0 % [facility]eAutoSS Eosinophils/Leukocyt es Auto (Bld) [Pure # fraction] 0.2 E9/L Normal 0.0 - 0.5 E9/L [facility]eAutoSS Lymphocytes/100 WBC (Bld) 29.3 % Normal 14.0 - 50.0 % [facility]eAutoSS Lymphocytes/Leukocyt es Auto (Bld) [Pure # fraction] 2.0 E9/L Normal 1.0 - 4.0 E9/L [facility]eAutoSS Monocytes/100 WBC (Bld) 5.5 % Normal 4.0 - 14.0 % [facility]eAutoSS Monocytes/Leukocytes Auto (Bld) [Pure # fraction] 0.4 E9/L Normal 0.2 - 1.0 E9/L [facility]AutoSS Neutrophils/100 WBC (Bld) 61.4 % Normal 36.0 - 75.0 % [facility]Auto[facility] Neutrophils/Leukocyt es Auto (Bld) [Pure # fraction] 4.1 E9/L Normal 2.0 - 7.5 E9/L [facility] HEMATOLOGYOrdered By: Dioni Mcmillan on 09-01-2023 Erythrocyte distribution width (RBC) [Ratio] 13.3 % Normal 10.9 - 14.2 % [facility] Hematocrit (Bld) [Volume fraction] 38.5 % Normal 34.0 - 46.0 % [facility] Hemoglobin (Bld) [Mass/Vol] 13.1 g/dL Normal 12.0 - 16.0 gm/dL [facility] MCH (RBC) [Entitic mass] 31.9 pg Normal 27.0 - 34.0 pg [facility]AutoSS MCHC (RBC) [Mass/Vol] 34.1 g/dL Normal 31.4 - 36.0 gm/dL [facility] HemeAutoSS MCV (RBC) [Entitic vol] 93.5 fL Normal 80.0 - 100.0 fL [facility] HemeAutoSS Platelet mean volume (Bld) [Entitic vol] 8.0 fL Normal 6.4 - 10.8 fL [facility] HemeAutoSS Platelets (Bld) [#/Vol] 240.0 E9/L Normal 150.0 - 500.0 E9/L [facility] HemeAutoSS RBC (Bld) [#/Vol] 4.1 E12/L Low 4.3 - 5.9 E12/L [facility] HemeAutoSS WBC corrected for nucl RBC Auto (Bld) [#/Vol] 6.8 E9/L Normal 4.0 - 11.0 E9/L [facility] HemeAutoSS Hep Func Panelon 09-01-2023 Bilirubin.indirect [Mass or moles/Vol] UTC Abnormal 0.1-0.9 [facility] Comment on above: Result Comment: Resu lt verified by Discern Rule. Performed result UTC (Unable to Calculate) was sent as an Alpha code due the inability to calculate a valid numeric value. Performed By: #### 2 [id number], [id number], [id number], [id number], [id number], 9794850, 63904391, 1321852, [id number] #### [facility] [address] [place] [address] Albumin [Mass/Vol] 3.5 g/dL Normal 3.3-5.0 [facility] Comment on above: Performed By: #### 2 789229, 8267332, 5780173, [id number], 06620474, 5226919, 35870032, 0996518, 9160995 #### [facility] [address] [place] [address] Albumin/Globulin (S) [Mass conc ratio] 1.0 Low 1.1-2.2 [facility] Comment on above: Performed By: #### 2 [id number], 5302993, 0937195, [id number], 38078473, 3723425, 44481922, 4407469, 0070020 #### [facility] [address] [place] [address] ALP [Catalytic activity/Vol] 136 Int._Unit/L High 21-98 [facility] Comment on above: Performed By: #### 2 741412, 0158816, 8997559, [id number], 12535696, 9089594, 28895573, 2313010, 4048965 #### [facility] [address] [place] [address] ALT No additional P-5'-P [Catalytic activity/Vol] 20 Int._Unit/L Normal 6-46 [facility] Comment on above: Performed By: #### 2 064493, 0592662, 2224882, [id number], 38508561, 6334239, 08156641, 4191448, 4005879 #### [facility] [address] [place] [address] AST [Catalytic activity/Vol] 24 Int._Unit/L Normal 5-43 [facility] Comment on above: Performed By: #### 2 568925, 2176282, 3861340, [id number], 90783978, 9030528, 74999677, 8998319, 8028834 #### [facility] [address] [place] [address] Bilirubin [Mass/Vol] 0.1 mg/dL Normal 0.0-1.1 [facility] Comment on above: Performed By: #### 2 618693, 5399026, 3607869, [id number], 38928779, 6373067, 73008073, 4485850, 8563313 #### [facility] [address] [place] [address] Globulin (S) [Mass/Vol] 3.4 g/dL Normal 1.4-4.0 [facility] Comment on above: Performed By: #### 2 246033, 3159296, 5774363, 734328931, 56852718, 9775380, 54189998, 2167102, 1905147 #### [facility] [address] [place] [address] Protein [Mass/Vol] 6.9 g/dL Normal 6.0-7.8 [facility] Comment on above: Performed By: #### 2 575761, 7890526, 4856367, 509339337, 23594646, 6917489, 68085705, [id number], [id number] #### [facility] [address] [place] [address] Bilirubin.direct [Mass/Vol] mg/dL Normal 0.1-0.4 [facility] Comment on above: Performed By: #### 2 083321, 7626066, 0242693, 338257728, 11518325, 7203975, 44639322, 9765950, 9218944 #### [facility] [address] [place] [address] Magnesiumon 09-01-2023 Magnesium [Mass/Vol] 1.8 mg/dL Normal 1.3-2.4 [facility] Comment on above: Performed By: #### 2 346925, 0965726, 5479075, 712910976, 02348796, 6128143, 66042686, 4237285, 4109514 #### [facility] [address] [place] [address] PT & PTTon 09-01-2023 aPTT Coag (PPP) [Time] 31.9 second(s) Normal 25.1-36.5 [facility] Comment on above: Result Comment: Para meter 15 days - 4 weeks 1 - 5 months 6 - 11 months 1 - 5 years 6 - 10 years 11 - 17 years PTT Mean: 35.4 (27.6-45.6) Mean: 33.5 (24.8-40.7) Mean: 32.4 (25.1-40.7) Mean: 31.6 (24.0-39.2) Mean: 31.6 (26.9-38.7) Mean: 31.0 (24.6-38.4) Pediatric Reference ranges were obtained from a study by amie Lundberg. prepared from 1437 samples obtained at 7 different centers using the same coagulation reagent and instrumentation as [facility]. Currently there are no coagulation studies available worldwide for children to 14 days, and no normal ranges. Heparin therapeutic range (represented by Anti-Factor Xa activity of 0.2 - 0.4 U/mL) corresponds to PTT of 56.6 - 109.0 sec. Performed By: #### 2 836024, 0593604, 2800960, 657276705, 16274725, 6672273, 05886334, 5994226, 7093530 #### [facility] [address] [place] [address] INR Coag (PPP) [Relative time] 1.0 {INR} Invalid Interpretation Code [facility] Comment on above: Result Comment: INR results are specifically intended to assess patients stabilized on long-term Anticoagulation therapy suggested INR?s ?Less Intensive Anticoagulation? 2.0 ? 3.0 Conventional Range 3.0 ? 4.5 Performed By: #### 2 677155, 8936382, 4398972, 624348423, 09699552, 3993531, 67660154, 5442624, 5161188 #### [facility] [address] [place] [address] PT Coag (PPP) [Time] 11.5 second(s) Normal 9.4-12.5 [facility] Comment on above: Result Comment: 15 d ays - 4 weeks 1 - 5 months 6 -11 months 1 ? 5 years 6 ? 10 years 11 -17 years Mean: 11.2 (9.5 ? 12.6) Mean: 11.0 (9.7 ? 12.8) Mean: 11.0 (9.8 ? 13.0) Mean: 11.3 (9.9 ? 13.4) Mean: 11.7 (10.0 ? 14.6) Mean: 11.8 (10.0 - 14.1) Pediatric Reference ranges were obtained from a study by Messi Chambers et al. prepared from 1437 samples obtained at 7 different centers using the same coagulation reagent and instrumentation as [facility]. Currently there are no coagulation studies available worldwide for children to 14 days, and no normal ranges. Performed By: #### 2 803678, 0107018, 9328587, 855631448, 20430148, 3787778, 30770098, 2410467, 5674811 #### [facility] [address] [place] [address] Pre-Arrival Noteon 3 Pre-Arrival Note Pre-Arrival Summary Name: ANU, Current Date: 09/01/2023 18:58:45 EDT Gender: Female Date of : Age: 62 Pre-Arrival Type: EMS ETA: 09/01/2023 19:16:00 EDT Primary Care Physician: Presenting Problem: CP Pre-Arrival User: Micaela Daugherty Referring Source: Location: PA Completion Date/Time: 09/01/2023 00:00:00 [facility] Emergency Department Pre-Hospital Report Form ___ Vital Signs: bp 109/42, hr 103, spo2 97% RA Pre-Hospital Report: Treatment in Route: 324mg ASA, (1) nitro Response to Treatment: Misc. Issues: SD in June [facility] Troponin 0 Hr.on 09-01-2023 Troponin I.cardiac [Mass/Vol] 8.20 pg/mL Low 10.10-27.10 [facility] Comment on above: Result Comment: The 95% CI (Confidence Interval) PPV (Positive Predictive Value) for myocardial infarction in females is 38 pg/mL, in males 51 pg/mL. The results should be used in conjunction with clinical conditions of myocardial infarction. (Access High Sensitivity Troponin I Instructions For Use, Shivani Margo, June 2018) Performed By: #### 2 566694, 8153123, 5384772, 505306911, 36325355, 2818097, 44703902, 1941600, 9778096 #### [facility] [address] [place] [address] Troponin 3 Hr.on 10-19-2023 Troponin I.cardiac [Mass/Vol] 9.00 pg/mL Low 10.10-27.10 [facility] Comment on above: Result Comment: The 95% CI (Confidence Interval) PPV (Positive Predictive Value) for myocardial infarction in females is 38 pg/mL, in males 51 pg/mL. The results should be used in conjunction with clinical conditions of myocardial infarction. (Access High Sensitivity Troponin I Instructions For Use, [employer], June 2018) Performed By: #### 2 304567, 0803964, 4268184, 677135728, 07544877, 4366246, 12824271, 7891597, 0434792 #### [facility] [address] [place] [address] eGFRon 09-01-2023 GFR/1.73 sq M.predicted among non-blacks MDRD (S/P/Bld) [Vol rate/Area] 97 mL/min/1.73 m2 Normal >=59 [facility] Comment on above: Order Comment: Order Added by Discern Expert. 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 Kidney failure is indicated at less than 15 mL/min/1.73m2. Performed By: #### 2 642895, 5710929, 7967733, 819418324, 23792540, 3668105, 65241464, 4967419, 3102120 #### [facility] [address] [place] [address] Auto Diffon 08-08-2023 Basophils/100 WBC (Bld) 1.2 % Normal 0.0-2.0 [facility] Comment on above: Order Comment: Order Added by Discern Expert. Performed By: #### 2 263449, 10226689, 8648462, 15609463, 87585848, 31612192, 6131475 ####[facility] [address] [place] [address] Basophils/Leukocytes Auto (Bld) [Pure # fraction] 0.1 E9/L Normal 0.0-0.2 [facility] Comment on above: Order Comment: Order Added by Discern Expert. Performed By: #### 2 648523, 46425609, 3788540, 96864414, 77612669, 44328019, 7669363 ####[address] [place] [address] Eosinophils/100 WBC (Bld) 3.4 % Normal 0.0-8.0 [facility] Comment on above: Order Comment: Order Added by Discern Expert. Performed By: #### 2 168043, 08213131, 8092608, 31872241, 69339326, 11275595, 1109500 ####[address] [place] [address] Eosinophils/Leukocyt es Auto (Bld) [Pure # fraction] 0.2 E9/L Normal 0.0-0.5 [facility] Comment on above: Order Comment: Order Added by Discern Expert. Performed By: #### 2 288933, 61634319, 7754360, 31727014, 19358811, 96842233, 8159418 ####[address] [place] [address] Lymphocytes/100 WBC (Bld) 30.2 % Normal 14.0-50.0 [facility] Comment on above: Order Comment: Order Added by Discern Expert. Performed By: #### 2 926988, 52168856, 8835015, 27573242, 64886757, 45441007, 3108162 ####[address] [place] [address] Lymphocytes/Leukocyt es Auto (Bld) [Pure # fraction] 1.9 E9/L Normal 1.0-4.0 [facility] Comment on above: Order Comment: Order Added by Discern Expert. Performed By: #### 2 154637, 33993607, 6617523, 68783285, 95157601, 52933724, 0334237 ####[address] [place] [address] Monocytes/100 WBC (Bld) 8.3 % Normal 4.0-14.0 [facility] Comment on above: Order Comment: Order Added by Discern Expert. Performed By: #### 2 817151, 89023468, 9315041, 24144477, 64107331, 70361168, 7051096 ####[facility] [address] [place] [address] Monocytes/Leukocytes Auto (Bld) [Pure # fraction] 0.5 E9/L Normal 0.2-1.0 [facility] Comment on above: Order Comment: Order Added by Discern Expert. Performed By: #### 2 268958, 01640901, 2386034, 63346869, 54839063, 42664192, 9125344 ####[facility] [address] [place] [address] Neutrophils/100 WBC (Bld) 56.9 % Normal 36.0-75.0 [facility] Comment on above: Order Comment: Order Added by Discern Expert. Performed By: #### 2 661783, 52937969, 4758066, 19017572, 81617883, 64190043, 3922125 ####[facility] [address] [place] [address] Neutrophils/Leukocyt es Auto (Bld) [Pure # fraction] 3.5 E9/L Normal 2.0-7.5 [facility] Comment on above: Order Comment: Order Added by Discern Expert. Performed By: #### 2 766823, 32402071, 0186560, 53256232, 46443988, 51260468, 9739331 ####[facility] [address] [place] [address] BMPon 08-08-2023 Creatinine [Mass/Vol] 0.6 mg/dL Normal 0.5-1.3 [facility] Comment on above: Performed By: #### 2 104943, 83762096, 7733513, 15397253, 10286961, 16041747, 9734905 ####[facility] [address] [place] [address] Urea nitrogen [Mass/Vol] 5 mg/dL Normal 5-21 [facility] Comment on above: Performed By: #### 2 077703, 46501808, 9266555, 79034777, 93197114, 33127402, 4236098 ####[facility] [address] [place] [address] Urea nitrogen/Creatinine [Mass ratio] 8 No Units Low 10-20 [facility] Comment on above: Performed By: #### 2 555259, 96156887, 8531810, 94704452, 67283223, 41940179, 2111612 ####[facility] [address] [place] [address] Anion gap [Moles/Vol] 13 mmol/L Normal 6-16 [facility] Comment on above: Performed By: #### 2 302976, 78954558, 6808642, 09081647, 81525585, 84474514, 1128949 ####[facility] [address] [address] Calcium [Mass/Vol] 9.6 mg/dL Normal 8.9-11.1 [facility] Comment on above: Performed By: #### 2 532018, 83131161, 9533786, 45208017, 77422417, 30424181, 6930331 ####[facility] [address] [address] Chloride [Moles/Vol] 107 mmol/L Normal 101-111 [facility] Comment on above: Performed By: #### 2 204155, 75886936, 7948690, 49654899, 41770029, 77797034, 2125519 ####[facility] [address] [place] [address] CO2 [Moles/Vol] 23 mmol/L Normal 21-31 [facility] Comment on above: Performed By: #### 2 529322, 37179699, 7660660, 45087799, 95674800, 40490164, 1190358 ####[facility] [address] [address] Glucose [Mass/Vol] 100 mg/dL Normal 55-199 [facility] Comment on above: Result Comment: If t his glucose result represents a fasting glucose, interpretation should refer to the following reference range: 55-99 mg/dL Performed By: #### 2 236882, 67310046, 6849789, 30472465, 36555134, 90671001, 7940525 ####[facility] [address] [place] [address] Potassium [Moles/Vol] 3.1 mmol/L Low 3.5-5.3 [facility] Comment on above: Performed By: #### 2 807666, 17516976, 9551670, 42651226, 92825710, 83750279, 0674422 ####[facility] [address] [place] [address] Sodium [Moles/Vol] 140 mmol/L Normal 135-145 [facility] Comment on above: Performed By: #### 2 286926, 04630607, 2134185, 20396298, 08273928, 34109557, 2978551 ####[facility] [address] [place] [address] BNPon 08-08-2023 Int Ctr BNP Pass Normal [facility] Comment on above: Performed By: #### 2 683816, 42515943, 0462954, 57034647, 19600060, 14668284, 9319018 ####[facility] [address] [place] [address] Natriuretic peptide B (Bld) [Mass/Vol] 210 pg/mL High 5-80 [facility] Comment on above: Performed By: #### 2 877841, 70335151, 7485618, 34510994, 85820938, 14296875, 1664322 ####[facility] [address] [place] [address] CBC w/ Auto Diffon Erythrocyte distribution width (RBC) [Ratio] 12.4 % Normal 10.9-14.2 [facility] Comment on above: Performed By: #### 2 038183, 78125223, 5816220, 18870821, 35711196, 37751051, 7630464 ####[address] [place] [address] Hematocrit (Bld) [Volume fraction] 41.3 % Normal 34.0-46.0 [facility] Comment on above: Performed By: #### 2 650461, 24571411, 9683004, 10772604, 32018783, 29926955, 0202074 ####[facility] [address] [place] [address] Hemoglobin (Bld) [Mass/Vol] 14.6 g/dL Normal 12.0-16.0 [facility] Comment on above: Performed By: #### 2 233606, 41332486, 8358551, 92064860, 34121821, 65591785, 8422033 ####[address] [address] MCH (RBC) [Entitic mass] 32.4 pg Normal 27.0-34.0 [facility] Comment on above: Performed By: #### 2 469665, 88844796, 0581213, 95959516, 11621180, 49169717, 2935710 ####[address] [place] [address] MCHC (RBC) [Mass/Vol] 35.4 g/dL Normal 31.4-36.0 [facility] Comment on above: Performed By: #### 2 796882, 06285355, 1532662, 63196535, 84473419, 43665099, 5862107 ####[address] [place] [address] MCV (RBC) [Entitic vol] 91.4 fL Normal 80.0-100.0 [facility] Comment on above: Performed By: #### 2 649357, 61893950, 7737481, 92058116, 17799045, 41749686, 6350096 ####[facility] [address] [place] [address] Platelet mean volume (Bld) [Entitic vol] 8.3 fL Normal 6.4-10.8 [facility] Comment on above: Performed By: #### 2 507027, 03424161, 4580903, 18394769, 56521803, 07327838, 6552018 ####[facility] [address] [place] [address] Platelets (Bld) [#/Vol] 258.0 E9/L Normal 150.0-500.0 [facility] Comment on above: Performed By: #### 2 419789, 23395877, 4602010, 97812422, 79572788, 95862896, 2811101 ####[facility] [address] [place] [address] RBC (Bld) [#/Vol] 4.5 E12/L Normal 4.3-5.9 [facility] Comment on above: Performed By: #### 2 772630, 62189163, 2457676, 34130138, 27220046, 86630571, 7732004 ####[address] [place] [address] WBC corrected for nucl RBC Auto (Bld) [#/Vol] 6.2 E9/L Normal 4.0-11.0 [facility] Comment on above: Performed By: #### 2 040729, 62968542, 1704999, 12579556, 97576720, 47164108, 0994914 ####[facility] [address] [place] [address] CHEMISTRYOrdered By: SYSTEM SYSTEM on 08-08-2023 Anion gap [Moles/Vol] 13 mmol/L Normal 6 - 16 mEq/L [facility] Remisol Calcium [Mass/Vol] 9.6 mg/dL Normal 8.9 - 11.1 mg/dL [facility] Remisol Chloride [Moles/Vol] 107 mmol/L Normal 101 - 111 mmol/ L [facility] Remisol CO2 [Moles/Vol] 23 mmol/L Normal 21 - 31 mmol/L [facility] Remisol Creatinine [Mass/Vol] 0.6 mg/dL Normal 0.5 - 1.3 mg/dL [facility] Remisol GFR/1.73 sq M.predicted among non-blacks MDRD (S/P/Bld) [Vol rate/Area] 101 mL/min/1.73 m2 Normal >=59mL/min/1.73 m2 [facility] Chem S Glucose [Mass/Vol] 100 mg/dL Normal 55 - 199 mg/dL [facility] Remisol Potassium [Moles/Vol] 3.1 mmol/L Low 3.5 - 5.3 mmol/L [facility] Remisol Sodium [Moles/Vol] 140 mmol/L Normal 135 - 145 mmol/L [facility] Remisol Troponin I.cardiac [Mass/Vol] 9.80 pg/mL Low 10.10 - 27.10 pg/mL [facility] Remisol Urea nitrogen [Mass/Vol] 5 mg/dL Normal 5 - 21 mg/dL [facility] Remisol Urea nitrogen/Creatinine [Mass ratio] 8 mg/mg Low 10 - 20 [facility] Remisol CHEMISTRYOrdered By: Sahra Kelley on 08-08-2023 Natriuretic peptide B (Bld) [Mass/Vol] 210 pg/mL High 5 - 80 pg/mL [facility] HemeManSS COAGULATIONOrdered By: Yoli Scruggs on 08-08-2023 aPTT Coag (PPP) [Time] 35.6 s Normal 25.1 - 36.5 second(s) [facility] Auto Coag INR Coag (PPP) [Relative time] 1.0 {INR} Invalid Interpretation Code [facility] Auto Coag PT Coag (PPP) [Time] 11.7 s Normal 9.4 - 1 2.5 second(s) [facility] Auto Coag Discharge Instructionson Discharge Instructions [id number]:127 Normal [facility] ED Clinical Summaryon 2022 ED Clinical Summary [address] [address] ED Clinical Summary Person Information Name: LIVIA JACOBO/[facility] Age: 62 Years : 1960 Sex: Female Language: Slovenian PCP: Dorie Luis MD Marital Status: Visit Id: Visit Reason: Nausea; Shortness of breath; SOB, NAUSEA, WEAKNESS Speciality: Acuity: 2 Enc Type: Emergency Med Service: Emergency Arrival: 08/08/2023 14:26:38 Discharge: 08/08/2023 16:16:15 LOS: 000 01:50 Checkin: 08/08/2023 14:26:38 Checkout: 08/08/2023 16:16:15 Dispo Type: Home (Routine DC) EVENTS: Event Name Event Status Request Date/Time Start Date/Time Complete Date/Time Arrive Complete 08/08/2023 14:26:38 08/08/2023 14:26:38 08/08/2023 14:26:38 Document Home Meds Request 08/08/2023 14:26:38 Triage Complete 08/08/2023 14:26:38 08/08/2023 14:30:23 08/08/2023 14:30:23 Bed Assign Complete 08/08/2023 14:27:26 08/08/2023 14:27:26 08/08/2023 14:27:26 Dr Exam Complete 08/08/2023 14:27:26 08/08/2023 14:28:22 08/08/2023 14:28:22 RN Exam Complete 08/08/2023 14:27:26 08/08/2023 16:18:02 08/08/2023 16:18:02 EKG Complete 08/08/2023 14:27:51 08/08/2023 14:30:14 Registration Complete 08/08/2023 14:28:22 08/08/2023 14:53:55 08/08/2023 14:53:55 30 Day Return Request 08/08/2023 14:30:23 Pending Labs Request 08/08/2023 14:31:53 Lab Complete 08/08/2023 14:31:53 08/08/2023 15:33:40 Patient Care Request 08/08/2023 14:31:53 RT Request 08/08/2023 14:31:53 X-Ray Complete 08/08/2023 14:31:53 08/08/2023 14:51:02 08/08/2023 15:00:40 Pending Labs Complete 08/08/2023 14:52:32 08/08/2023 14:52:32 08/08/2023 15:09:29 Lab Complete 08/08/2023 14:52:32 08/08/2023 14:52:32 08/08/2023 15:09:29 Pending Labs Complete 08/08/2023 14:52:58 08/08/2023 14:52:58 08/08/2023 14:52:58 Reg Complete Request 08/08/2023 14:53:55 Reg Bed Request Complete 08/08/2023 14:53:55 08/08/2023 14:53:55 08/08/2023 14:53:55 Wet Read Complete 08/08/2023 15:00:40 08/08/2023 15:04:24 08/08/2023 15:04:24 Pending Labs Complete 08/08/2023 15:07:21 08/08/2023 15:07:21 08/08/2023 15:07:29 Lab Complete 08/08/2023 15:07:21 08/08/2023 15:07:21 08/08/2023 15:07:29 Dr Exam Complete 08/08/2023 15:18:44 08/08/2023 15:18:44 08/08/2023 15:18:44 Registration Request 08/08/2023 15:18:44 Discharge Complete 08/08/2023 16:04:01 08/08/2023 16:19:29 08/08/2023 16:19:29 Transfer Complete 08/08/2023 16:19:29 08/08/2023 16:19:29 08/08/2023 16:19:29 ADDRESS: [address] [place], [place] [address] [id number] PHYS DOC NOTES: MEDICAL INFORMATION: Prescriptions Given: Medications to Continue with No Changes Other Medications albuterol (Albuterol (Eqv-ProAir HFA) 90 mcg/inh inhalation aerosol) 2 Puffs Inhalation every 4 hours. as needed. alprazolam (alprazolam 1 mg Tab) 1 Tablets By Mouth 4 times a day as needed for anxiety. amlodipine (amLODIPine 5 mg Tab) 1 Tablets By Mouth every day. Refills: 1. aspirin (aspirin 81 mg Oral EC Tab) 1 Tablets By Mouth every day. atorvastatin (atorvastatin 40 mg Tab) 2 Tablets By Mouth at bedtime. Refills: 0. carvedilol (Coreg 3.125 mg Tab) 1 Tablets By Mouth 2 times a day. Refills: 1. fluticasone/umeclid inium/vilanterol (Trelegy Ellipta 100 mcg-62.5 mcg-25 mcg inhalation powder) 1 Puffs Inhalation every day. isosorbide mononitrate (isosorbide mononitrate 30 mg ER Tab) 1 Tablets By Mouth every day for 30 Days. Refills: 6. lamotrigine (Lamictal 25 mg Tab) 3 tablets at bedtime. losartan (losartan 100 mg Tab) 1 Tablets By Mouth every day. Refills: 1. [facility] Prescription (Handicap Placorck, 5 years.) Handicap Placard, 5 years.. Refills: 0. nitroglycerin (nitroglycerin 0.4 mg sublingual Tab) 1 Tablets Sublingual every 5 minutes as needed Chest pain. Refills: 0. olanzapine (ZyPREXA 5 mg Tab) one tablet at bedtime. quetiapine 400 Milligram By Mouth once a day (in the evening). ropinirole (ropinirole 1 mg Tab) 1 Tablets By Mouth every day. Refills: 1. ticagrelor (ticagrelor 90 mg oral tablet) 1 Tablets By Mouth 2 times a day. MAINTENACE DOSE. Refills: 1. trazodone (traZODONE 100 mg Tab) 3 tablets at bedtime. venlafaxine (Effexor XR 150 mg Cap-ER) 2 capsules at bedtime. PATIENT EDUCATION INFORMATION: Instructions: Follow up: With: Address: When: Your clinical care manager In 3 days 08/11/2023 With: Address: When: [address] [place] [address] Business (2) In 3 days DIAGNOSIS: Dyspnea; Nausea Normal [facility] ED Note-Physicianon 08-08-20 ED Note-Physician Basic Information Time Seen: Lawrence Elise DO 08/08/2023 14:28 Chief Complaint Pt nauseous and has some sob. Pt says she feels better. her house was stuffy History of Present Illness Female presents with shortness of breath. Patient states that she just had a heart attack about 1 month ago. Earlier today she had epistaxis and this concerned her she was treated by her daughter who is a nurse. She states that she believes that she was feeling stuffy in her house she became short of breath therefore family encouraged her to come to the emergency department. By the time she comes here she has no more symptoms she has no chest pain no additional shortness of breath no cough or fevers no abdominal pain no pain or swelling into her lower extremities. Patient believes that she was just feeling some anxiousness from the epistaxis or that the house was stuffy or that she just had heart attack and is trying to get her strength back to normal. She reports no chest pain with this. She has been taking all of her medications as prescribed. No other aggravating or relieving factors no other associated symptoms no other prior treatments or complaints. Family: Reviewed and noncontributory Social: lives at home Review of systems negative unless otherwise specified in the HPI. Physical Exam Vitals & Measurements T: 36.9 ?C(Oral) HR: 95(Peripheral) RR: 20 BP: 130/86 SpO2: 94% HT: 154 cm WT: 72.9 kg BMI: 30.74 General: The patient appears well and in no apparent distress. Patient is resting comfortably on cart. Skin: Warm, dry, no pallor noted. Head: Normocephalic, atraumatic Neck: No JVD Eye: PERRLA, EOMI ENT: Moist mucus membranes Cardiovascular: Regular rate normal peripheral perfusion Respiratory: No respiratory distress no accessory muscle use no obvious audible wheezing Chest Wall: no deformity Musculoskeletal: normal ROM, no deformity, no swelling GI: Soft no obvious distention. No rebound or rigidity. No guarding. No tenderness. Neurological: A&O moves all extremities equal strength and symmetry Psychiatric: Cooperative and appropriate Medical Decision Making Work-up in the ER has been reviewed and noted. Initial work-up here is essentially negative. Patient does not wish to stay she wishes to be discharged home. We talked about the risks of doing so and did offer her admission here she declined stating that she is completely symptom-free and has normal vital signs and benign work-up otherwise. She is to follow-up in the outpatient setting return to the ER if she should have recurrence or changing of her symptoms and she is comfortable with this plan. Assessment/Plan Dyspnea (R06.00: Dyspnea, unspecified) Nausea (R11.0: Nausea) Orders: Automated Diff B-Type Natriuretic Peptide Basic Metabolic Panel CBC w/ Auto Diff ED Cardiac Monitoring eGFR Extra SST Tube Oxygen Saturation Oxygen Therapy PT & PTT Saline Lock Insert Troponin 0 Hr. Troponin 3 Hr. Troponin 6 Hr. Troponin 9 Hr. XR Chest Single View Disposition Plan Discharge Prescription List Prescriptions ticagrelor 90 mg oral tablet, 90 mg= 1 tab(s), Oral, BID, 1 refills Follow-up With When Contact Information Your clinical care manager In 3 days 08/11/2023 EDT Additional Instructions: Dorie Luis In 3 days [address] [place] [address] [facility] (2) Additional Instructions: Problem List/Past Medical History Ongoing Acute ST elevation myocardial infarction (STEMI) Anxiety and depression COPD (chronic obstructive pulmonary disease) Current smoker History of total abdominal hysterectomy Hospital discharge follow-up HTN (hypertension), benign Polyneuropathy Primary insomnia RLS (restless legs syndrome) Walker as ambulation aid Historical No qualifying data Procedure/Surgical History PCI - Percutaneous coronary intervention (07/09/2023), Angioplasty, Gallbladder, Hysterectomy. Medications Inpatient No active inpatient medications Home Albuterol (Eqv-ProAir HFA) 90 mcg/inh inhalation aerosol, 2 puff(s), Inhalation, q4hr alprazolam 1 mg Tab, 1 mg= 1 tab(s), Oral, QID, PRN amLODIPine 5 mg Tab, 5 mg= 1 tab(s), Oral, Daily, 1 refills aspirin 81 mg Oral EC Tab, 81 mg= 1 tab(s), Oral, Daily atorvastatin 40 mg Tab, 80 mg= 2 tab(s), Oral, Bedtime Coreg 3.125 mg Tab, 3.125 mg= 1 tab(s), Oral, BID, 1 refills Effexor XR 150 mg Cap-ER Handicap Placard, 5 years., See Instructions isosorbide mononitrate 30 mg ER Tab, 30 mg= 1 tab(s), Oral, Daily, 6 refills Lamictal 25 mg Tab losartan 100 mg Tab, 100 mg= 1 tab(s), Oral, Daily, 1 refills nitroglycerin 0.4 mg sublingual Tab, 0.4 mg= 1 tab(s), SubLingual, q5min, PRN quetiapine, 400 mg, Oral, qPM ropinirole 1 mg Tab, 1 mg= 1 tab(s), Oral, Daily, 1 refills ticagrelor 90 mg oral tablet, 90 mg= 1 tab(s), Oral, BID, 1 refills traZODONE 100 mg Tab Trelegy Ellipta 100 mcg-62.5 mcg-25 mcg inhalation powder, 1 puff(s), Inhalation, Daily ZyPREXA 5 mg (more content not included)... Normal [facility] Comment on above: Result Comment: Elec tronically Signed By: Lawrence Elise DO\.br\Date and Time Signed: 08/08/23 16:05 EDT ED Patient Education Noteon 08-08-2023 ED Patient Education Note Normal [facility] ED Patient Summaryon 023 ED Patient Summary [place] [id number] Patient Discharge Instructions Person Information Name: LIVIA JACOBO Age: 62 Years Arrival Date: 08/08/2023 14:26:38 Discharge Diagnosis: Dyspnea; Nausea Primary Care Physician: Dorie Luis MD Provider Information Primary Provider: Lawrence Elise DO Advanced Lining Finisher:None The exam and treatment you received in the Emergency Department were for an urgent problem and are not intended as complete care. It is important that you follow up with a doctor, nurse practitioner, or physician?s assistant program director for ongoing care. If your symptoms become worse or you do not improve as expected and you are unable to reach your usual health care provider, you should return to the Emergency Department. We are available 24 hours a day. LIVIA JACOBO has been given the following list of patient education materials, prescriptions and follow-up instructions: Follow-up Instructions: With: Address: When: Your clinical care manager In 3 days 08/11/2023 With: Address: When: Dorie Luis [address] [place] [address] Business (2) In 3 days In the event that this physician does not participate in your insurance network, please consult with your insurance company to find a nearby participating provider. Patient Education Materials: A MESSAGE TO ALL PATIENTS REGARDING OPIOIDS PRESCRIPTION OPIOIDS: WHAT YOU NEED TO KNOW Prescription opioids can be used to help relieve extbthbl-fc-uvzfrz pain and are often prescribed following a surgery or injury, or for certain health conditions. These medications can be an important part of the treatment but also come with serious risks. It is important to work with your healthcare provider to make sure you are getting the safest, most effective care. WHAT ARE THE RISKS AND SIDE EFFECTS OF OPIOID USE? Prescription opioids carry serious risks of addiction and overdose, especially with prolonged use. An opioid overdose, often marked by slowed breathing, can cause sudden . The use of prescription opioids can have a number of side effects as well, even when taken as directed: ? Tolerance?meaning you might need to take more of the medication for the same pain relief ? Physical dependence?meaning you have symptoms of withdrawal when a medication is stopped ? Increased sensitivity to pain ? Constipation ? Nausea, vomiting, and dry mouth ? Sleepiness and dizziness ? Confusion ? Depression ? Low levels of testosterone that can result in lower sex drive, energy, and strength ? Itching and sweating RISKS ARE GREATER WITH: ? History of drug misuse, substance use disorder, or overdose ? Mental health conditions (such as depression or anxiety) ? Sleep apnea ? Older age (65 years and older) ? Avoid alcohol while taking prescription opioids. Also, unless specifically advised by your health care provider, medications to avoid include: ? Benzodiazepines (such as Xanax or Valium) ? Muscle relaxants (such as Soma or Flexeril) ? Hypnotics (such as Ambien or Lunesta) ? Other prescription opioids KNOW YOUR OPTIONS Talk to your health care provider about ways to manage your pain that don?t involve prescription opioids. Some of these options may actually work better and have fewer risks and side effects. Options may include: ? Pain relievers such as acetaminophen, ibuprofen, and naproxen ? Some medication that are also used for depression or seizures ? Physical therapy and exercise ? Cognitive behavioral therapy, a psychological, goal-directed approach, in which patients learn how to modify physical, behavioral, and emotional triggers of pain and stress. IF YOU ARE PRESCRIBED OPIOIDS FOR PAIN: ? Never take opioids in greater amounts or more often than prescribed. ? Follow up with your primary health care provider. o Work together to create a plan on how to manage your pain. o Talk about ways to help manage your pain that don?t involve prescription opioids. o Talk about any and all concerns and side effects. ? Help prevent misuse and abuse o Never sell or share prescription opioids. o Never use another person?s prescription opioids. ? Store prescription opioids in a secure place and out of reach of others (this may include visitors, children, friends, and family). ? Safely dispose of unused prescription opioids: Find your community drug take-back program or your pharmacy mail-back program, or flush them down the toilet, following guidance from the Food and Drug Administration (www.fda.gov/Drugs/ ResourcesForYou). ? Visit www.cdc.gov/drugove rdose to learn about the risks of opioids abuse and overdose. ? If you believe you may be struggling with addiction, tell your health day care director and ask for guidance or call [facility] National Helpline at 1-408-107-QYZK. v Source: Depart (more content not included)... Normal [facility] HEMATOLOGYOrdered By: SYSTEM SYSTEM on 08-08-2023 Basophils/100 WBC (Bld) 1.2 % Normal 0.0 - 2.0 % [facility]eAutoSS Basophils/Leukocytes Auto (Bld) [Pure # fraction] 0.1 E9/L Normal 0.0 - 0.2 E9/L [facility] HemeAutoSS Eosinophils/100 WBC (Bld) 3.4 % Normal 0.0 - 8.0 % [facility] HemeAutoSS Eosinophils/Leukocyt es Auto (Bld) [Pure # fraction] 0.2 E9/L Normal 0.0 - 0.5 E9/L [facility] HemeAutoSS Lymphocytes/100 WBC (Bld) 30.2 % Normal 14.0 - 50.0 % [facility] HemeAutoSS Lymphocytes/Leukocyt es Auto (Bld) [Pure # fraction] 1.9 E9/L Normal 1.0 - 4.0 E9/L [facility] HemeAutoSS Monocytes/100 WBC (Bld) 8.3 % Normal 4.0 - 14.0 % [facility] HemeAutoSS Monocytes/Leukocytes Auto (Bld) [Pure # fraction] 0.5 E9/L Normal 0.2 - 1.0 E9/L [facility]eAutoSS Neutrophils/100 WBC (Bld) 56.9 % Normal 36.0 - 75.0 % [facility]eAutoSS Neutrophils/Leukocyt es Auto (Bld) [Pure # fraction] 3.5 E9/L Normal 2.0 - 7.5 E9/L [facility] HEMATOLOGYOrdered By: Juan Jose Kelley on 08-08-2023 Erythrocyte distribution width (RBC) [Ratio] 12.4 % Normal 10.9 - 14.2 % [facility] Hematocrit (Bld) [Volume fraction] 41.3 % Normal 34.0 - 46.0 % [facility] Hemoglobin (Bld) [Mass/Vol] 14.6 g/dL Normal 12.0 - 16.0 gm/dL [facility] MCH (RBC) [Entitic mass] 32.4 pg Normal 27.0 - 34.0 pg [facility] MCHC (RBC) [Mass/Vol] 35.4 g/dL Normal 31.4 - 36.0 gm/dL [facility] MCV (RBC) [Entitic vol] 91.4 fL Normal 80.0 - 100.0 fL [facility] Platelet mean volume (Bld) [Entitic vol] 8.3 fL Normal 6.4 - 10.8 fL [facility]eAutoSS Platelets (Bld) [#/Vol] 258.0 E9/L Normal 150.0 - 500.0 E9/L [facility] RBC (Bld) [#/Vol] 4.5 E12/L Normal 4.3 - 5.9 E12/L [facility] WBC corrected for nucl RBC Auto (Bld) [#/Vol] 6.2 E9/L Normal 4.0 - 11.0 E9/L [facility] HemeAutoSS Monitor Recordon 08-08-2023 Monitor Record [id number] 680#1.00CD:127 Normal [facility] PT & PTTon 08-08-2023 aPTT Coag (PPP) [Time] 35.6 second(s) Normal 25.1-36.5 [facility] Comment on above: Result Comment: Para meter 15 days - 4 weeks 1 - 5 months 6 - 11 months 1 - 5 years 6 - 10 years 11 - 17 years PTT Mean: 35.4 (27.6-45.6) Mean: 33.5 (24.8-40.7) Mean: 32.4 (25.1-40.7) Mean: 31.6 (24.0-39.2) Mean: 31.6 (26.9-38.7) Mean: 31.0 (24.6-38.4) Pediatric Reference ranges were obtained from a study by Messi Chambers et al. prepared from 1437 samples obtained at 7 different centers using the same coagulation reagent and instrumentation as [facility]. Currently there are no coagulation studies available worldwide for children to 14 days, and no normal ranges. Heparin therapeutic range (represented by Anti-Factor Xa activity of 0.2 - 0.4 U/mL) corresponds to PTT of 56.6 - 109.0 sec. Performed By: #### 2 [id number], [id number], [id number], [id number], [id number], [id number], [id number] ####[facility] [address] [place] [address] INR Coag (PPP) [Relative time] 1.0 {INR} Invalid Interpretation Code [facility] Comment on above: Result Comment: INR results are specifically intended to assess patients stabilized on long-term Anticoagulation therapy suggested INR?s ?Less Intensive Anticoagulation? 2.0 ? 3.0 Conventional Range 3.0 ? 4.5 Performed By: #### 2 [id number], [id number], [id number], [id number], [id number], [id number], 9798503 ####[facility] [address] [place] [address] PT Coag (PPP) [Time] 11.7 second(s) Normal 9.4-12.5 [facility] Comment on above: Result Comment: 15 d ays - 4 weeks 1 - 5 months 6 -11 months 1- 5 years 6-10 years 11 -17 years Mean: 11.2 (9.5-12.6) Mean: 11.0 (9.7-12.8) Mean: 11.0 (9.8-13.0) Mean: 11.3 (9.9-13.4) Mean: 11.7 (10.0-14.6) Mean: 11.8 (10.0 - 14.1) Pediatric Reference ranges were obtained from a study by Messi Chambers et al. prepared from 1437 samples obtained at 7 different centers using the same coagulation reagent and instrumentation as [facility]. Currently there are no coagulation studies available worldwide for children to 14 days, and no normal ranges. Performed By: #### 2 [id number], [id number], 3370821, 61284075, 61305051, [id number], 8129876 ####[facility] [address] [place] [address] Pre-Arrival Noteon Pre-Arrival Note Pre-Arrival Summary Name: ANU lares Current Date: 08/08/2023 14:30:03 EDT Gender: Female Date of : Age: 62 Pre-Arrival Type: EMS ETA: 08/08/2023 14:46:00 EDT Primary Care Physician: Presenting Problem: SOB Pre-Arrival User: Sachin LY, Benjamin Guillen Referring Source: Location: [place] Completion Date/Time: 08/08/2023 14:17:00 [facility] Emergency Department Pre-Hospital Report Form ___ Vital Signs: Pre-Hospital Report: Treatment in Route: Response to Treatment: Misc. Issues: Normal [facility] Troponin 0 Hr.on 08-08-2023 Troponin I.cardiac [Mass/Vol] 9.80 pg/mL Low 10.10-27.10 [facility] Comment on above: Result Comment: The 95% CI (Confidence Interval) PPV (Positive Predictive Value) for myocardial infarction in females is 38 pg/mL, in males 51 pg/mL. The results should be used in conjunction with clinical conditions of myocardial infarction. (Access High Sensitivity Troponin I Instructions For Use, Shivani Margo, June 2018) Performed By: #### 2 [id number], [id number], [id number], [id number], 63221271, [id number], 7166057 ####[facility] [address] [place] [address] XR Chest Single Viewon 08-08 XR Chest Single View Exam Date/Time: 08/08/2023 15:00 EDT Reason for Exam: Chest pain Report IMPRESSION: NO RADIOGRAPHIC EVIDENCE OF ACUTE INTRATHORACIC PROCESS. EXAM: XR Chest Single View History: Chest pain Technique: Portable AP view of the chest. Comparison: Portable chest radiograph 07/09/2023 Findings: Atherosclerotic calcification of the thoracic aorta. The cardiomediastinal silhouette is within normal limits. No pneumothorax, pleural effusion, or consolidation. Chronic interstitial prominence. No acute osseous abnormality. Ordering Provider: Lawrence Elise FINAL REPORT Dictated: 08/08/2023 3:40 pm Keith Bender DO Signed (Electronic Signature): 08/08/2023 3:40 pm Signed by: Keith Bender DO Transcribed by: JEANINE Technologist: MYRON Technical Comments Radiation Dose: Ka,r in mGy = na DAP = na Normal [facility] eGFRon 08-08-2023 GFR/1.73 sq M.predicted among non-blacks MDRD (S/P/Bld) [Vol rate/Area] 101 mL/min/1.73 m2 Normal >=59 [facility] Comment on above: Order Comment: Order added by Discern Expert. 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 Kidney failure is indicated at less than 15 mL/min/1.73m2. Performed By: #### 2 [id number], [id number], 2098704, 55121112, [id number], 51607073, 7464429 ####[facility] [address] [place] [address] Cardiovascular Reporton 07-15 Cardiovascular Report [id number] 254#3.00CD:127 Normal [facility] Physician Orderon 07-22-2023 Physician Order [id number] 215#1.00CD:127 Normal [facility] Ambulatory Visit Summaryon 0 07-21-2023 Ambulatory Visit Summary LIVIA JACOBO :1960 Visit Date:07/21/2023 Ambulatory Visit Instructions Your Care Team Attending Physician - Sheila POSEY, Tiffany Chavarria Primary Care Physician - Dorie Luis MD Referring Physician - Dorie Luis MD This Is Your Medications List [facility] Prescription (Handdixie Gautam, 5 years.) albuterol (Albuterol (Eqv-ProAir HFA) 90 mcg/inh inhalation aerosol) alprazolam (alprazolam 1 mg Tab) amlodipine (amLODIPine 5 mg Tab) aspirin (aspirin 81 mg Oral EC Tab) atorvastatin (atorvastatin 40 mg Tab) carvedilol (Coreg 3.125 mg Tab) fluticasone/umeclid inium/vilanterol (Trelegy Ellipta 100 mcg-62.5 mcg-25 mcg inhalation powder) lamotrigine (Lamictal 25 mg Tab) losartan (losartan 100 mg Tab) nitroglycerin (nitroglycerin 0.4 mg sublingual Tab) olanzapine (ZyPREXA 5 mg Tab) quetiapine ropinirole (ropinirole 1 mg Tab) ticagrelor (ticagrelor 90 mg oral tablet) trazodone (traZODONE 100 mg Tab) venlafaxine (Effexor XR 150 mg Cap-ER) Procedures Performed Angioplasty, Gallbladder, Hysterectomy. Discharge Vitals Heart Rate (Peripheral) 74 Blood Pressure 118/78 Height 154 cm Height 61 in Weight 75.2 kg Weight 165.44 lb BMI 31.71 What to do next Scheduled Follow-Up Appointments 2022 2:20 PM EDT With: Dorie Luis MD Where: [facility] Normal [address] [place] [address]- \.br\ Medications\.br\ What How Much When Why Instructions\.br\ Unchanged albuterol (Albuterol (Eqv-ProAir HFA) 90 mcg/ inh inhalation aerosol) 2 Puffs Inhalation Every 4 hours as needed \.br\ Unchanged alprazolam (alprazolam 1 mg Tab) 1 Tablets By Mouth 4 times a day as needed for for anxiety\.br\ Unchanged amlodipine (amLODIPine 5 mg Tab) 1 Tablets By Mouth Every day\.br\ Unchanged aspirin (aspirin 81 mg Oral EC Tab) 1 Tablets By Mouth Every day\.br\ Unchanged atorvastatin (atorvastatin 40 mg Tab) 2 Tablets By Mouth At bedtime\.br\ Unchanged carvedilol (Coreg 3.125 mg Tab) 1 Tablets By Mouth 2 times a day\.br\ Unchanged fluticasone/ umeclidinium/ vilanterol (Trelegy Ellipta 100 mcg-62.5 mcg-25 mcg inhalation powder) 1 Puffs Inhalation Every day\.br\ Unchanged lamotrigine (Lamictal 25 mg Tab) 3 tablets at bedtime \.br\ Unchanged losartan (losartan 100 mg Tab) 1 Tablets By Mouth Every day\.br\ Unchanged Misc Prescription (Handicap Placrock, 5 years.) See instructions Anxiety and depression Depression, unspecified HTN (hypertension), benign RLS (restless legs syndrome) Chronic obstructive pulmonary disease, unspecified COPD type Primary insomnia Current smoker Polyneuropathy Walker as ambulation aid Adult BMI 33.0-33.9 kg/sq m Handicap Placard, 5 years. 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 \.br\ Unchanged trazodone (traZODONE 100 mg Tab) 3 tablets at bedtime \.br\ Unchanged venlafaxine (Effexor XR 150 mg Cap-ER) 2 capsules at bedtime \.br\ Allergies\.br\ BuSpar (Migraine, Unknown)\.br\ sulfa drugs (Rash)\.br\ Lyrica (unknown)\.br\ Nicotine Patch (Rash)\.br\ Tape (Sensitive)\.br\ sulfamethoxazole (Unknown (origin))\.br\ Problems\.br\ Ongoing - Any problem that you are currently receiving treatment for.\.br\ Acute ST elevation myocardial infarction (STEMI)\.br\ Anxiety and depression\.br\ COPD (chronic obstructive pulmonary disease)\.br\ Current smoker\.br\ History of total abdominal hysterectomy\.br\ Hospital discharge follow-up\.br\ HTN (hypertension), benign\.br\ Polyneuropathy\.br \ Primary insomnia\.br\ RLS (restless legs syndrome)\.br\ Walker as ambulation aid\.br\ \.br\ [facility] Consent for Treatmenton Consent for Treatment [id number] CC#1.00CD:127 Normal [facility] Physician Referralon 023 Physician Referral [id number] 3#1.00CD:127 Normal [facility] Ambulatory Visit Summaryon 0 07-13-2023 Ambulatory Visit Summary LIVIA JACOBO :1960 Visit Date:07/13/2023 Ambulatory Visit Instructions Your Diagnosis Hospital discharge follow-up Acute ST elevation myocardial infarction (STEMI), unspecified artery Current smoker BMI 32.0-32.9,adult Class 1 obesity due to excess calories in adult Your Care Team Attending Physician - Dorie Luis MD Primary Care Physician - Dorie Luis MD This Is Your Medications List [facility] Prescription (Rosangela Gautam, 5 years.) albuterol (Albuterol (Eqv-ProAir HFA) 90 mcg/inh inhalation aerosol) alprazolam (alprazolam 1 mg Tab) amlodipine (amLODIPine 5 mg Tab) aspirin (aspirin 81 mg Oral EC Tab) atorvastatin (atorvastatin 40 mg Tab) carvedilol (Coreg 3.125 mg Tab) fluticasone/umeclid inium/vilanterol (Trelegy Ellipta 100 mcg-62.5 mcg-25 mcg inhalation powder) lamotrigine (Lamictal 25 mg Tab) losartan (losartan 100 mg Tab) nitroglycerin (nitroglycerin 0.4 mg sublingual Tab) olanzapine (ZyPREXA 5 mg Tab) quetiapine ropinirole (ropinirole 1 mg Tab) ticagrelor (ticagrelor 90 mg oral tablet) trazodone (traZODONE 100 mg Tab) venlafaxine (Effexor XR 150 mg Cap-ER) Procedures Performed Angioplasty, Gallbladder, Hysterectomy. Discharge Vitals Temperature (Oral) 36.3 ?C Heart Rate (Peripheral) 96 Respiratory Rate 18 Blood Pressure 118/74 Height 154.9 cm Height 61 in Weight 76.8 kg Weight 168.96 lb BMI 32.01 What to do next Scheduled Follow-Up Appointments 2022 2:00 PM EDT With: Sheila POSEY, Tiffany Chavarria Where: [facility] 2022 2:20 PM EDT With: Dorie Luis MD Where: [place] [address]- \.br\ Medications\.br\ What How Much When Why Instructions\.br\ Unchanged albuterol (Albuterol (Eqv-ProAir HFA) 90 mcg/ inh inhalation aerosol) 2 Puffs Inhalation Every 4 hours as needed \.br\ Unchanged alprazolam (alprazolam 1 mg Tab) 1 Tablets By Mouth 4 times a day as needed for for anxiety\.br\ Unchanged amlodipine (amLODIPine 5 mg Tab) 1 Tablets By Mouth Every day\.br\ Unchanged aspirin (aspirin 81 mg Oral EC Tab) 1 Tablets By Mouth Every day\.br\ Unchanged atorvastatin (atorvastatin 40 mg Tab) 2 Tablets By Mouth At bedtime\.br\ Unchanged carvedilol (Coreg 3.125 mg Tab) 1 Tablets By Mouth 2 times a day\.br\ Unchanged fluticasone/ umeclidinium/ vilanterol (Trelegy Ellipta 100 mcg-62.5 mcg-25 mcg inhalation powder) 1 Puffs Inhalation Every day\.br\ Unchanged lamotrigine (Lamictal 25 mg Tab) 3 tablets at bedtime \.br\ Unchanged losartan (losartan 100 mg Tab) 1 Tablets By Mouth Every day\.br\ Unchanged Misc Prescription (Handicap Lotus, 5 years.) See instructions Anxiety and depression Depression, unspecified HTN (hypertension), benign RLS (restless legs syndrome) Chronic obstructive pulmonary disease, unspecified COPD type Primary insomnia Current smoker Polyneuropathy Walker as ambulation aid Adult BMI 33.0-33.9 kg/sq m Handicap Lotus, 5 years. 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 \.br\ Unchanged trazodone (traZODONE 100 mg Tab) 3 tablets at bedtime \.br\ Unchanged venlafaxine (Effexor XR 150 mg Cap-ER) 2 capsules at bedtime \.br\ Allergies\.br\ BuSpar (Migraine, Unknown)\.br\ sulfa drugs (Rash)\.br\ Lyrica (unknown)\.br\ Nicotine Patch (Rash)\.br\ Tape (Sensitive)\.br\ sulfamethoxazole (Unknown (origin))\.br\ Problems\.br\ Ongoing - Any problem that you are currently receiving treatment for.\.br\ Acute ST elevation myocardial infarction (STEMI)\.br\ Anxiety and depression\.br\ COPD (chronic obstructive pulmonary disease)\.br\ Current smoker\.br\ History of total abdominal hysterectomy\.br\ Hospital discharge follow-up\.br\ HTN (hypertension), benign\.br\ Polyneuropathy\.br \ Primary insomnia\.br\ RLS (restless legs syndrome)\.br\ Walker as ambulation aid\.br\ \.br\ Juan Pablo Cole [facility] Medicine Office/Clini c Noteon 07-13-2023 [facility] Medicine Office/Clinic Note HPI Staff Patient presents for hospital follow up Juan Pablo Cole Admitted: 07/09/23 Discharged: 07/10/23 Dx SD, had stent placed Any specialists: none Any new meds: yes, all documented PHQ9:-10 ELIZABETH-9 questions/concerns: wants to discuss potassium c/o being weak History of Present Illness - Here for hospital F/U - Pt had a recent stemi with stenting to the R circumflex - Had hypokalemia - No new issues. Review of Systems PHQ Score Initial Depression Screen Score: 4 Detailed Depression Screen Score: 10 Total Depression Screen Score: 14 Physical Exam Vitals & Measurements T: 36.3 ?C(Oral) HR: 96(Peripheral) RR: 18 BP: 118/74 SpO2: 94% HT: 61 in HT: 154.9 cm WT: 76.8 kg WT: 168.96 lb BMI: 32.01 General: alert, no acute distress ENMT: oral mucosa moist, Cardiovascular: regular rate and rhythm, normal peripheral perfusion Respiratory: Lungs CTA, respirations non labored Extremities: no deformity, no trauma, Bruising noted to the R radial artery area. NO hematoma noted. Neurological: oriented x 4, LOC appropriate for age, CN II-XII intact, motor strength equal & normal bilaterally, speech normal Abdomen: Soft, Nontender, Non-distended, + BS Assessment/Plan 1. Hospital discharge follow-up (Z09: Encounter for follow-up examination after completed treatment for conditions other than malignant neoplasm) - TCM calls reviewed. - Discharge note reviewed Ordered: Cardiac Rehab - Ambulatory Referral [facility] Internal Ambulatory Referral 2. Acute ST elevation myocardial infarction (STEMI), unspecified artery (I21.3: ST elevation (STEMI) myocardial infarction of unspecified site) - Stenting place - Cardiology referral placed - Cardiac Rehab placed Ordered: Body Mass Index (BMI) documented 3008F Cardiac Rehab - Ambulatory Referral Current tobacco smoker 1034F Depression Screening Positive 3354F [facility] Internal Ambulatory Referral Most recent diastolic blood pressure <80 mm Hg 3078F Patient screen for fall risk: no falls in last year or 1 fall with no injury in last year 1101F Systolic BP <130 mm Hg (Most Recent) 3074F 3. Current smoker (F17.200: Nicotine dependence, unspecified, uncomplicated) - Advised pt to stop smoking. - Pt advised this leads to CAD Ordered: Body Mass Index (BMI) documented 3008F Cardiac Rehab - Ambulatory Referral Current tobacco smoker 1034F Depression Screening Positive 3354F [facility] Internal Ambulatory Referral Most recent diastolic blood pressure <80 mm Hg 3078F Patient screen for fall risk: no falls in last year or 1 fall with no injury in last year 1101F Systolic BP <130 mm Hg (Most Recent) 3074F 4. BMI 32.0-32.9,adult (Z68.32: Body mass index [BMI] 32.0-32.9, adult) - BMI education given. Ordered: Body Mass Index (BMI) documented 3008F Cardiac Rehab - Ambulatory Referral Current tobacco smoker 1034F Depression Screening Positive 3354F [facility] Internal Ambulatory Referral Most recent diastolic blood pressure <80 mm Hg 3078F Patient screen for fall risk: no falls in last year or 1 fall with no injury in last year 1101F Systolic BP <130 mm Hg (Most Recent) 3074F 5. Class 1 obesity due to excess calories in adult (E66.09: Other obesity due to excess calories) - As above. Ordered: Body Mass Index (BMI) documented 3008F Cardiac Rehab - Ambulatory Referral Current tobacco smoker 1034F Depression Screening Positive 3354F [facility] Internal Ambulatory Referral Most recent diastolic blood pressure <80 mm Hg 3078F Patient screen for fall risk: no falls in last year or 1 fall with no injury in last year 1101F Systolic BP <130 mm Hg (Most Recent) 3074F Follow-up No qualifying data available Problem List/Past Medical History Ongoing Acute ST elevation myocardial infarction (STEMI) Anxiety and depression COPD (chronic obstructive pulmonary disease) Current smoker History of total abdominal hysterectomy Hospital discharge follow-up HTN (hypertension), benign Polyneuropathy Primary insomnia RLS (restless legs syndrome) Walker as ambulation aid Historical No qualifying data Procedure/Surgical History Angioplasty, Gallbladder, Hysterectomy. Medications Albuterol (Eqv-ProAir HFA) 90 mcg/inh inhalation aerosol, 2 puff(s), Inhalation, q4hr alprazolam 1 mg Tab, 1 mg= 1 tab(s), Oral, QID, PRN amLODIPine 5 mg Tab, 5 mg= 1 tab(s), Oral, Daily, 1 refills aspirin 81 mg Oral EC Tab, 81 mg= 1 tab(s), Oral, Daily atorvastatin 40 mg Tab, 80 mg= 2 tab(s), Oral, Bedtime Coreg 3.125 mg Tab, 3.125 mg= 1 tab(s), Oral, BID, 1 refills Effexor XR 150 mg Cap-ER Handicap Placard, 5 years., See Instructions Lamictal 25 mg Tab losartan 100 mg Tab, 100 mg= 1 tab(s), Oral, Daily, 1 refills nitroglycerin 0.4 mg sublingual Tab, 0.4 mg= 1 tab(s), SubLingual, q5min, PRN quetiapine, 400 mg, Oral, qPM ropinirole 1 mg Tab, 1 mg= 1 tab(s), Oral, Daily, 1 refills ticagrelor 90 mg oral tablet, 90 mg= 1 tab(s), Oral, BID traZO (more content not included)... Normal [facility] Comment on above: Result Comment: Elec tronically Signed By: Fidencio POSEY, Dorie Polk.br\Date and Time Signed: 07/13/23 16:23 EDT Discharge Instructionson Discharge Instructions [id number] 03#1.00CD:127 Normal [facility] Cardiovascular Reporton 06-15 Cardiovascular Report [id number] 19#1.00CD:127 Normal [facility] Consent for Procedure/Surger yon 07-11-2023 Consent for Procedure/Surgery [id number] 79#1.00CD:127 Normal [facility] Auto Diffon 07-10-2023 Basophils/100 WBC (Bld) 0.2 % Normal 0.0-2.0 [facility] Comment on above: Order Comment: Order Added by Discern Expert. Performed By: #### 2 280379, 1112381, 4613729, 748993488, 74942387, 9340418, 61448376, 1621318, 5579608 #### [facility] [address] [place] [address] Basophils/Leukocytes Auto (Bld) [Pure # fraction] 0.0 E9/L Normal 0.0-0.2 [facility] Comment on above: Order Comment: Order Added by Discern Expert. Performed By: #### 2 668964, 2575934, 6574185, 120110749, 40561995, 6059395, 74427892, 6172639, 0362471 #### [facility] [address] [place] [address] Eosinophils/100 WBC (Bld) 2.9 % Normal 0.0-8.0 [facility] Comment on above: Order Comment: Order Added by Discern Expert. Performed By: #### 2 879738, 2680723, 6885101, 808995745, 92769201, 3590901, 10514680, 8523989, 9286135 #### [facility] [address] [place] [address] Eosinophils/Leukocyt es Auto (Bld) [Pure # fraction] 0.1 E9/L Normal 0.0-0.5 [facility] Comment on above: Order Comment: Order Added by Discern Expert. Performed By: #### 2 599164, 1585620, 0098135, 423167213, 63638515, 7813700, 89934843, 0181941, 9857673 #### [facility] [address] [place] [address] Lymphocytes/100 WBC (Bld) 34.5 % Normal 14.0-50.0 [facility] Comment on above: Order Comment: Order Added by Discern Expert. Performed By: #### 2 892875, 2171099, 9437202, 168542602, 85589752, 2860111, 84774745, 1822137, 9734536 #### [facility] [address] [place] [address] Lymphocytes/Leukocyt es Auto (Bld) [Pure # fraction] 1.4 E9/L Normal 1.0-4.0 [facility] Comment on above: Order Comment: Order Added by Discern Expert. Performed By: #### 2 442311, 4297711, 0879866, 163233670, 67196645, 4477871, 01791634, 9072286, 4134629 #### [facility] [address] [place] [address] Monocytes/100 WBC (Bld) 11.2 % Normal 4.0-14.0 [facility] Comment on above: Order Comment: Order Added by Discern Expert. Performed By: #### 2 065279, 5821542, 2574737, 817045561, 05669404, 1587545, 73856619, 2842492, 0602223 #### [facility] [address] [place] [address] Monocytes/Leukocytes Auto (Bld) [Pure # fraction] 0.5 E9/L Normal 0.2-1.0 [facility] Comment on above: Order Comment: Order Added by Lupe Expert. Performed By: #### 2 843856, 1458044, 6815890, 621585912, 43857691, 3502825, 26081829, 7281669, 1444391 #### [facility] [address] [place] [address] 24081 Neutrophils/100 WBC (Bld) 51.2 % Normal 36.0-75.0 [facility] Comment on above: Order Comment: Order Added by Lupe Expert. Performed By: #### 2 099857, 9376521, 2695504, 073616698, 54911521, 4435753, 02685731, 9006312, 4712029 #### [facility] [address] [place] [address] Neutrophils/Leukocyt es Auto (Bld) [Pure # fraction] 2.1 E9/L Normal 2.0-7.5 [facility] Comment on above: Order Comment: Order Added by Lupe Expert. Performed By: #### 2 539594, 9362670, 2239298, 404138122, 45831024, 1682343, 24251872, 7071379, 1858997 #### [facility] [address] [place] [address] BMPon 07-10-2023 Anion gap [Moles/Vol] 7 mmol/L Normal 6-16 [facility] Comment on above: Performed By: #### 2 927835, 0542657, 6284877, 575053024, 53390908, 4520200, 42047095, 9638902, 5414528 #### [facility] [address] [place] [address] Calcium [Mass/Vol] 8.7 mg/dL Low 8.9-11.1 [facility] Comment on above: Performed By: #### 2 913942, 0871551, 5040604, 956450786, 75377945, 2612905, 46353882, 7095862, 2056804 #### [facility] [address] [place] [address] Chloride [Moles/Vol] 113 mmol/L High 101-111 [facility] Comment on above: Performed By: #### 2 758998, 4403089, 1337622, 976361243, 85006957, 5980550, 33766897, 6987546, 1684589 #### [facility] [address] [place] [address] CO2 [Moles/Vol] 27 mmol/L Normal 21-31 [facility] Comment on above: Performed By: #### 2 705068, 3105689, 2916584, 961107519, 20419044, 8584069, 14152716, 2590736, 9233206 #### [facility] [address] [place] [address] Creatinine [Mass/Vol] 0.6 mg/dL Normal 0.5-1.3 [facility] Comment on above: Performed By: #### 2 000790, 4464625, 9407263, 751759323, 37100263, 1722600, 55751471, 2655297, 9760881 #### [facility] [address] [place] [address] Glucose [Mass/Vol] 114 mg/dL Normal 55-199 [facility] Comment on above: Result Comment: If t his glucose result represents a fasting glucose, interpretation should refer to the following reference range: 55-99 mg/dL Performed By: #### 2 233105, 0786632, 6869454, 032380562, 24984726, 5234302, 93228936, 5663516, 9495132 #### [facility] [address] [place] [address] Potassium [Moles/Vol] 3.8 mmol/L Normal 3.5-5.3 [facility] Comment on above: Performed By: #### 2 634131, 4828326, 0841447, 936383027, 94245541, 2733413, 17828628, 0778614, 3409104 #### [facility] [address] [place] [address] Sodium [Moles/Vol] 143 mmol/L Normal 135-145 [facility] Comment on above: Performed By: #### 2 394382, 9773758, 9956116, 741493708, 89735274, 6383636, 31449800, 9348713, 5001620 #### [facility] [address] [place] [address] Urea nitrogen [Mass/Vol] 6 mg/dL Normal 5-21 [facility] Comment on above: Performed By: #### 2 785104, 7782568, 1357408, 255650648, 22656209, 0276794, 47750231, 8140418, 4743239 #### [facility] [address] [place] [address] Urea nitrogen/Creatinine [Mass ratio] 10 No Units Normal 10-20 [facility] Comment on above: Performed By: #### 2 971897, 3349467, 2984741, 176125166, 62775311, 1558539, 77184702, 2589177, 8059120 #### [facility] [address] [place] [address] CBC w/ Auto Diffon 08-27-202 3 Erythrocyte distribution width (RBC) [Ratio] 12.8 % Normal 10.9-14.2 [facility] Comment on above: Performed By: #### 2 100808, 7669246, 0531384, 470234496, 41301317, 4422498, 22929966, 2377115, 8158683 #### [facility] [address] [place] [address] Hematocrit (Bld) [Volume fraction] 40.0 % Normal 34.0-46.0 [facility] Comment on above: Performed By: #### 2 098786, 8481562, 6837282, 231680018, 32218445, 2482302, 37276389, 5135257, 8654522 #### [facility] [address] [place] [address] Hemoglobin (Bld) [Mass/Vol] 13.8 g/dL Normal 12.0-16.0 [facility] Comment on above: Performed By: #### 2 805786, 7491733, 8988003, 513605451, 55596142, 5308814, 01385718, 1816551, 5339503 #### [facility] [address] [place] [address] MCH (RBC) [Entitic mass] 32.2 pg Normal 27.0-34.0 [facility] Comment on above: Performed By: #### 2 894297, 9486261, 7581143, 010597104, 87915587, 9909433, 95071732, 7769500, 9229820 #### [facility] [address] [place] [address] MCHC (RBC) [Mass/Vol] 34.4 g/dL Normal 31.4-36.0 [facility] Comment on above: Performed By: #### 2 781504, 8576473, 8261151, 213272663, 11391007, 0674533, 06653810, 6343160, 5183253 #### [facility] [address] [place] [address] MCV (RBC) [Entitic vol] 93.6 fL Normal 80.0-100.0 [facility] Comment on above: Performed By: #### 2 989868, 3791737, 9723401, 207619898, 76994619, 9561663, 64039843, 1597897, 3303144 #### [facility] [address] [place] [address] Platelet mean volume (Bld) [Entitic vol] 7.9 fL Normal 6.4-10.8 [facility] Comment on above: Performed By: #### 2 479451, 7923528, 3750107, 499302706, 12813764, 2248779, 23337790, 1939956, 4209760 #### [facility] [address] [place] [address] Platelets (Bld) [#/Vol] 250.0 E9/L Normal 150.0-500.0 [facility] Comment on above: Performed By: #### 2 585354, 3509898, 9476437, 919490028, 28437099, 9379972, 64456641, 4369429, 3259630 #### [facility] [address] [place] [address] RBC (Bld) [#/Vol] 4.3 E12/L Normal 4.3-5.9 [facility] Comment on above: Performed By: #### 2 203592, 8777055, 9475978, 216560595, 67906001, 9057790, 28907858, 8816439, 6630753 #### [facility] [address] [place] [address]98 WBC corrected for nucl RBC Auto (Bld) [#/Vol] 4.2 E9/L Normal 4.0-11.0 [facility] Comment on above: Performed By: #### 2 199994, 9821020, 2072932, 023536578, 71306319, 6299234, 16611674, 7833051, 6939375 #### [facility] [address] [place] [address] CHEMISTRYOrdered By: SYSTEM SYSTEM on 07-10-2023 Anion gap [Moles/Vol] 7 mmol/L Normal 6 - 16 mEq/L [facility] Calcium [Mass/Vol] 8.7 mg/dL Low 8.9 - 11.1 mg/dL [facility] Chloride [Moles/Vol] 113 mmol/L High 101 - 111 mmol/ L [facility] Cholesterol [Mass/Vol] 139 mg/dL Normal 120 - 200 mg/dL [facility] Cholesterol in HDL [Mass/Vol] 33 mg/dL Invalid Interpretation Code [facility] Cholesterol in LDL [Mass/Vol] 84 mg/dL Normal <=129mg/dL [facility] Cholesterol in VLDL [Mass/Vol] 23 mg/dL Normal 7 - 40 mg/dL [facility] CO2 [Moles/Vol] 27 mmol/L Normal 21 - 31 mmol/L [facility] Creatinine [Mass/Vol] 0.6 mg/dL Normal 0.5 - 1.3 mg/dL [facility] GFR/1.73 sq M.predicted among non-blacks MDRD (S/P/Bld) [Vol rate/Area] 101 mL/min/1.73 m2 Normal >=59mL/min/1.73 m2 [facility] Chem S Glucose [Mass/Vol] 114 mg/dL Normal 55 - 199 mg/dL [facility] Potassium [Moles/Vol] 3.8 mmol/L Normal 3.5 - 5.3 mmol/L [facility] Sodium [Moles/Vol] 143 mmol/L Normal 135 - 145 mmol/L [facility] Triglyceride [Mass/Vol] 115 mg/dL Normal <=149mg/dL [facility] Urea nitrogen [Mass/Vol] 6 mg/dL Normal 5 - 21 mg/dL [facility] Urea nitrogen/Creatinine [Mass ratio] 10 mg/mg Normal 10 - 20 [facility] Anion gap [Moles/Vol] 10 mmol/L Normal 6 - 16 mEq/L [facility] Chloride [Moles/Vol] 111 mmol/L Normal 101 - 111 mmol/ L [facility] CO2 [Moles/Vol] 26 mmol/L Normal 21 - 31 mmol/L [facility] Magnesium [Mass/Vol] 1.8 mg/dL Normal 1.3 - 2.4 mg/dL [facility] Potassium [Moles/Vol] 3.8 mmol/L Normal 3.5 - 5.3 mmol/L [facility] Sodium [Moles/Vol] 143 mmol/L Normal 135 - 145 mmol/L [facility] Troponin I.cardiac [Mass/Vol] 7681.70 pg/mL Invalid Interpretation Code 10.10 - 27.10 pg/mL [facility] Comment on above: Result Comment: Crit ical Result verified by previous result\ Critical Result I_hsTnI:7681.7 Called to JANNA YU at ICU by DIONI MCMILLAN and read back for confirmation at 07/10/2023 02:34:56 CHEMISTRYOrdered By: Kailyn Keene on 07-10-2023 Troponin I.cardiac [Mass/Vol] 9476.90 pg/mL Invalid Interpretation Code 10.10 - 27.10 pg/mL [facility] Comment on above: Result Comment: Crit ical Result verified by previous result\ Critical Result [id number]:9476.9 Called to OWEN SOSA at 3S by JACQUI KEENE and read back for confirmation at 07/10/2023 06:06:55 Consultation Noteon 07-10-20 Consultation Note Chief Complaint Pt. presents to the ed with c/o Chest pain and SOB that increased in the last couple hours, pt. states symptoms started off and on three weeks ago. Reason for Consultation Posterior STEMI History of Present Illness 62-year-old female with no prior cardiac history presents after 2 days of stuttering intermittent chest pain followed by worsening few hours ago. Found to have posterior STEMI and got primary PCI. Left-ventricular end-diastolic pressure was a little bit up in the [employer] EF was little bit down she got some furosemide postprocedure. Review of Systems Difficult to assess due to emergent procedure Physical Exam Vitals & Measurements T: 36.7 ?C(Oral) HR: 92(Monitored) RR: 11 BP: 112/71 SpO2: 96% HT: 154.94 cm WT: 73 kg General: alert, no acute distress Skin: warm, dry intact Head: atraumatic, normocephalic Neck: Trachea midline, no JVD, no bruit Eye: normal conjunctiva, sclera clear ENMT: oral mucosa moist Cardiovascular: regular rate and rhythm, nomurmur normal peripheral perfusion Respiratory: Lungs CTA, respirations non labored Chest wall: no deformity. Gastrointestinal: soft, non distended, no tenderness, no guarding. Back: No tenderness, Normal ROM, Normal alignment. Extremities: no edema, no deformity, no trauma Neurological: oriented x 4, LOC appropriate for agesensation equal & normal bilaterally, speech normal Psychiatric: cooperative, affect appropriate for age, normal judgement, normal psychiatric thoughts. Images Posterior STEMI Assessment/Plan CAD: DAPT, beta-tamika, statin, risk factor modification. Echo. Admitted to the ICU. Acute ST elevation myocardial infarction (STEMI) (I21.3: ST elevation (STEMI) myocardial infarction of unspecified site) Problem List/Past Medical History Ongoing Anxiety and depression COPD (chronic obstructive pulmonary disease) Current smoker History of total abdominal hysterectomy HTN (hypertension), benign Polyneuropathy Primary insomnia RLS (restless legs syndrome) Walker as ambulation aid Historical No qualifying data Procedure/Surgical History Gallbladder, Hysterectomy. Medications Inpatient Sodium Chloride 0.9% IV Bettye 1000 mL 1,000 mL, 1000 mL, IV Home Albuterol (Eqv-ProAir HFA) 90 mcg/inh inhalation aerosol, 2 puff(s), Inhalation, q4hr alprazolam 1 mg Tab, 1 mg= 1 tab(s), Oral, QID, PRN amLODIPine 5 mg Tab, 5 mg= 1 tab(s), Oral, Daily, 1 refills Effexor XR 150 mg Cap-ER Handicap Lotus, 5 years., See Instructions Lamictal 25 mg Tab losartan 100 mg Tab, 100 mg= 1 tab(s), Oral, Daily, 1 refills quetiapine, 400 mg, Oral, qPM ropinirole 1 mg Tab, 1 mg= 1 tab(s), Oral, Daily, 1 refills traZODONE 100 mg Tab Trelegy Ellipta 100 mcg-62.5 mcg-25 mcg inhalation powder, 1 puff(s), Inhalation, Daily ZyPREXA 5 mg Tab Allergies BuSpar (Migraine, Unknown) sulfa drugs (Rash) Lyrica (unknown) Tape (Sensitive) sulfamethoxazole (Unknown (origin)) Social History Alcohol - Denies Alcohol Use, 09/13/2022 Household alcohol concerns: No., 06/13/2023 Substance Abuse - Denies Substance Abuse, 09/13/2022 Tobacco 10 or more cigarettes (1/2 pack or more)/day in last 30 days Tobacco Use:. Never Smokeless Tobacco Use:. Cigarettes, Started age 18.0 Years. Previous treatment: Nicotine replacement. Ready to change: Yes. Household tobacco concerns: No. Yes, 06/13/2023 Family History Family history is negative Immunizations Vaccine Date Status Comments influenza virus vaccine, inactivated 10/14/2022 Given influenza virus vaccine, inactivated - Not Given Postpone due to refusal influenza virus vaccine, inactivated 09/15/2021 Recorded pneumococcal 23-valent vaccine 12/09/2020 Recorded influenza virus vaccine, inactivated 09/09/2020 Recorded pneumococcal 13-valent vaccine 07/15/2014 Recorded Normal [facility] Comment on above: Result Comment: Elec tronically Signed By: Sheila POSEY, Tiffany Chavarria\.br\Date and Time Signed: 07/10/23 03:29 EDT HEMATOLOGYOrdered By: SYSTEM SYSTEM on 07-10-2023 Basophils/100 WBC (Bld) 0.2 % Normal 0.0 - 2.0 % [facility] HemeAutoSS Basophils/Leukocytes Auto (Bld) [Pure # fraction] 0.0 E9/L Normal 0.0 - 0.2 E9/L [facility] HemeAutoSS Eosinophils/100 WBC (Bld) 2.9 % Normal 0.0 - 8.0 % [facility] HemeAutoSS Eosinophils/Leukocyt es Auto (Bld) [Pure # fraction] 0.1 E9/L Normal 0.0 - 0.5 E9/L [facility] HemeAutoSS Lymphocytes/100 WBC (Bld) 34.5 % Normal 14.0 - 50.0 % [facility] HemeAutoSS Lymphocytes/Leukocyt es Auto (Bld) [Pure # fraction] 1.4 E9/L Normal 1.0 - 4.0 E9/L [facility]eAutoSS Monocytes/100 WBC (Bld) 11.2 % Normal 4.0 - 14.0 % [facility] HemeAutoSS Monocytes/Leukocytes Auto (Bld) [Pure # fraction] 0.5 E9/L Normal 0.2 - 1.0 E9/L [facility]eAutoSS Neutrophils/100 WBC (Bld) 51.2 % Normal 36.0 - 75.0 % [facility]eAutoSS Neutrophils/Leukocyt es Auto (Bld) [Pure # fraction] 2.1 E9/L Normal 2.0 - 7.5 E9/L [facility] HEMATOLOGYOrdered By: Dioni Mcmillan on 07-10-2023 Erythrocyte distribution width (RBC) [Ratio] 12.8 % Normal 10.9 - 14.2 % [facility] Hematocrit (Bld) [Volume fraction] 40.0 % Normal 34.0 - 46.0 % [facility] Hemoglobin (Bld) [Mass/Vol] 13.8 g/dL Normal 12.0 - 16.0 gm/dL [facility] MCH (RBC) [Entitic mass] 32.2 pg Normal 27.0 - 34.0 pg [facility] MCHC (RBC) [Mass/Vol] 34.4 g/dL Normal 31.4 - 36.0 gm/dL [facility] MCV (RBC) [Entitic vol] 93.6 fL Normal 80.0 - 100.0 fL [facility] Platelet mean volume (Bld) [Entitic vol] 7.9 fL Normal 6.4 - 10.8 fL [facility] Platelets (Bld) [#/Vol] 250.0 E9/L Normal 150.0 - 500.0 E9/L [facility] RBC (Bld) [#/Vol] 4.3 E12/L Normal 4.3 - 5.9 E12/L [facility]eAuto[facility] WBC corrected for nucl RBC Auto (Bld) [#/Vol] 4.2 E9/L Normal 4.0 - 11.0 E9/L [facility] HemeAutoSS Inpatient Patient Summaryon 07-10-2023 Inpatient Patient Summary LIVIA JACOBO :1960 Visit Date:07/09/2023 Inpatient Discharge Instructions Your Care Team Admitting Physician - Bruno CRUZ DO Consulting Physician - Sheila POSEY, Tiffany Chavarria Reason for Your Visit Chest pain Your Diagnosis Acute ST elevation myocardial infarction (STEMI) Acute systolic heart failure Hypokalemia Hypertension Tobacco abuse COPD without exacerbation Chronic lower back pain Irritable bowel syndrome Restless leg syndrome Anxiety and depression Obesity Chest pain Depression, unspecified Other chronic pain Shortness of breath Tests Performed Automated Diff BMP CBC w/ Auto Diff eGFR Lipid Panel Lytes Magnesium Level PT & PTT Troponin 0 Hr. Troponin 3 Hr. Troponin 6 Hr. Troponin 9 Hr. CV Cardiovascular -- Results Pending -- XR Chest Single View Please visit your patient portal for your results or contact your primary care physician. This Is Your Medications List [facility] Prescription (Rosangela Gautam, 5 years.) albuterol (Albuterol (Eqv-ProAir HFA) 90 mcg/inh inhalation aerosol) alprazolam (alprazolam 1 mg Tab) amlodipine (amLODIPine 5 mg Tab) aspirin (aspirin 81 mg Oral EC Tab) atorvastatin (atorvastatin 40 mg Tab) carvedilol (Coreg 3.125 mg Tab) fluticasone/umeclid inium/vilanterol (Trelegy Ellipta 100 mcg-62.5 mcg-25 mcg inhalation powder) lamotrigine (Lamictal 25 mg Tab) losartan (losartan 100 mg Tab) nitroglycerin (nitroglycerin 0.4 mg sublingual Tab) olanzapine (ZyPREXA 5 mg Tab) quetiapine ropinirole (ropinirole 1 mg Tab) ticagrelor (ticagrelor 90 mg oral tablet) trazodone (traZODONE 100 mg Tab) venlafaxine (Effexor XR 150 mg Cap-ER) Procedure History Gallbladder, Hysterectomy. Discharge Vitals Temperature (Oral) 36.8 ?C Heart Rate (Monitored) 91 Respiratory Rate 16 Blood Pressure 108/73 Height 157.48 cm Weight 77.0 kg BMI 31.17 What to do next Instructions From Your Doctor Event Name Event Result Discharge Activity Ambulate as tolerated Discharge Restrictions No restrictions Discharge Diet(s) Fat Modified- 50 gram Pending Diagnostic Test Results None Pharmacy Information [facility] Previously Scheduled Follow-Up Appointments 2022 2:20 PM EDT With: Fidencio POSEY, Dorie Jean Baptiste Where: [facility] Normal [address] [place] [address]- \.br\ New Follow Up Appointments after Discharge\.br\ Follow Up with Dorie Luis When: In 0 days\.br\ Where:\.br\ [address]\.br\ [place] [address]-\.br\ [facility] (2)\.br\ Medications\.br\ What How Much When Why Instructions Next Dose\.br\ New aspirin (aspirin 81 mg Oral EC Tab) 1 Tablets By Mouth Every day 07/11/23\.br\ New atorvastatin (atorvastatin 40 mg Tab) 2 Tablets By Mouth At bedtime Pickup at [facility] 07/10/23 pm\.br\ New carvedilol (Coreg 3.125 mg Tab) 1 Tablets By Mouth 2 times a day Refills: 1 Pickup at [facility] 1155 07/10/23 pm\.br\ New nitroglycerin (nitroglycerin 0.4 mg sublingual Tab) 1 Tablets Sublingual Every 5 minutes as needed for Chest pain Pickup at [facility] 1155 as needed\.br\ New ticagrelor (ticagrelor 90 mg oral tablet) 1 Tablets By Mouth 2 times a day Acute ST elevation myocardial infarction (STEMI) MAINTENACE DOSE Pickup at [facility] 1155 07/10/23 pm\.br\ Unchanged albuterol (Albuterol (Eqv-ProAir HFA) 90 mcg/ inh inhalation aerosol) 2 Puffs Inhalation Every 4 hours as needed as needed\.br\ Unchanged alprazolam (alprazolam 1 mg Tab) 1 Tablets By Mouth 4 times a day as needed for for anxiety as needed\.br\ Unchanged amlodipine (amLODIPine 5 mg Tab) 1 Tablets By Mouth Every day resume\.br\ Unchanged fluticasone/ umeclidinium/ vilanterol (Trelegy Ellipta 100 mcg-62.5 mcg-25 mcg inhalation powder) 1 Puffs Inhalation Every day resume\.br\ Unchanged lamotrigine (Lamictal 25 mg Tab) 3 tablets at bedtime 07/10/23\.br\ Unchanged losartan (losartan 100 mg Tab) 1 Tablets By Mouth Every day resume\.br\ Unchanged Misc Prescription (Handicap Placard, 5 years.) See instructions Anxiety and depression Depression, unspecified HTN (hypertension), benign RLS (restless legs syndrome) Chronic obstructive pulmonary disease, unspecified COPD type Primary insomnia Current smoker Polyneuropathy Walker as ambulation aid Adult BMI 33.0-33.9 kg/sq m Handicap Placard, 5 years. \.br\ Unchanged olanzapine (ZyPREXA 5 mg Tab) one tablet at bedtime 07/10/23\.br\ Unchanged quetiapine 400 Milligram By Mouth Once a day (in the evening) 07/10/23\.br\ Unchanged ropinirole (ropinirole 1 mg Tab) 1 Tablets By Mouth Every day 07/11/23\.br\ Unchanged trazodone (traZODONE 100 mg Tab) 3 tablets at bedtime 07/10/23 pm\.br\ Unchanged venlafaxine (Effexor XR 150 mg Cap-ER) 2 capsules at bedtime 07/10/23 pm\.br\ Pharmacy Information\.br\ [facility]: [address], [place] [id number] [phone]\.br\ Test Results\.br\ CBC \.br\ BMP \.br\ WBC: 4.2 E9/L (07/10/23 05:28:00)\.br\ Glucose Lvl: 114 mg/dL (07/10/23 05:28:00)\.br\ RBC: 4.3 E12/L (07/10/23 05:28:00)\.br\ BUN: 6 mg/dL (07/10/23 05:28:00)\.br\ HGB: 13.8 gm/dL (07/10/23 05:28:00)\.br\ Creatinine: 0.6 mg/dL (07/10/23 05:28:00)\.br\ Hct: 40 % (07/10/23 05:28:00)\.br\ BUN/Creat Ratio: 10 (07/10/23 05:28:00)\.br\ MCV: 93.6 fL (07/10/23 05:28:00)\.br\ Sodium Lvl: 143 mmol/L (07/10/23 05:28:00)\.br\ MCH: 32.2 pg (07/10/23 05:28:00)\.br\ Potassium Lvl: 3.8 mmol/L (07/10/23 05:28:00)\.br\ MCHC: 34.4 gm/dL (07/10/23 05:28:00)\.br\ Chloride: 113 mmol/L High (07/10/23 05:28:00)\.br\ RDW: 12.8 % (07/10/23 05:28:00)\.br\ CO2: 27 mmol/L (07/10/23 05:28:00)\.br\ Platelet: 250 E9/L (07/10/23 05:28:00)\.br\ AGAP: 7 mEq/L (07/10/23 05:28:00)\.br\ MPV: 7.9 fL (07/10/23 05:28:00)\.br\ Calcium Lvl: 8.7 mg/dL Low (07/10/23 05:28:00)\.br\ Allergies\.br\ BuSpar (Migraine, Unknown)\.br\ sulfa drugs (Rash)\.br\ Lyrica (unknown)\.br\ Nicotine Patch (Rash)\.br\ Tape (Sensitive)\.br\ sulfamethoxazole (Unknown (origin))\.br\ Problems\.br\ Ongoing - Any problem that you are currently receiving treatment for.\.br\ Anxiety and depression\.br\ COPD (chronic obstructive pulmonary disease)\.br\ Current smoker\.br\ History of total abdominal hysterectomy\.br\ HTN (hypertension), benign\.br\ Polyneuropathy\.br \ Primary insomnia\.br\ RLS (restless legs syndrome)\.br\ Walker as ambulation aid\.br\ Education Materials\.br\ Heart Attack\.br\ A heart attack occurs when blood and oxygen supply to the heart is cut off. A heart attack can cause damage to the heart that cannot be fixed. A heart attack is also called a myocardial infarction, or SD. If you think you are having a heart attack, do not wait to see if the symptoms will go away. Get medical help right away.\.br\ What are the causes?\.br\ \.br\ This condition may be caused by:\.br\ ? \.br\ A fatty substance (plaque) in the blood vessels (arteries). This can block the flow of blood to the heart.\.br\ ? \.br\ A blood clot in the blood vessels that go to the heart. The blood clot blocks blood flow.\.br\ ? \.br\ An abnormal heartbeat.\.br\ ? \.br\ Some diseases, such as problems in red blood cells (anemia)orproblems in breathing (respiratory failure).\.br\ ? \.br\ Tightening (spasm) of a blood vessel that cuts off blood to the heart.\.br\ ? \.br\ A tear in a blood vessel of the heart.\.br\ Other causes may include:\.br\ ? \.br\ Using drugs such as cocaine or methamphetamine.\. br\ ? \.br\ Low blood pressure.\.br\ What increases the risk?\.br\ ? \.br\ Aging. The risk gets higher as you get older.\.br\ ? \.br\ Having a personal or family history of chest pain, heart attack, stroke, or narrowing of the arteries in the legs, arms, head, or stomach (peripheral vascular disease).\.br\ ? \.br\ Having taken chemotherapy or immune-suppressing medicines.\.br\ ? \.br\ Being male.\.br\ ? \.br\ Being overweight or obese.\.br\ ? \.br\ Having any of these conditions:\.br\ ? \.br\ High blood pressure.\.br\ ? \.br\ High cholesterol.\.br\ ? \.br\ Diabetes.\.br\ ? \.br\ Making lifestyle choices such as:\.br\ ? \.br\ Drinking too much alcohol.\.br\ ? \.br\ Not getting regular exercise.\.br\ ? \.br\ Smoking.\.br\ What are the signs or symptoms?\.br\ ? \.br\ Chest pain. It may feel like:\.br\ ? \.br\ Crushing or squeezing.\.br\ ? \.br\ Tightness, pressure, fullness, or heaviness.\.br\ ? \.br\ Pain in the arm, neck, jaw, back, or upper body.\.br\ ? \.br\ Heartburn.\.br\ ? \.br\ Upset stomach (indigestion).\.br \ ? \.br\ Shortness of breath.\.br\ ? \.br\ Feeling like you may vomit (nauseous).\.br\ ? \.br\ Cold sweats.\.br\ ? \.br\ Sudden light-headedness, dizziness, or passing out.\.br\ ? \.br\ Feeling tired.\.br\ How is this treated?\.br\ \.br\ A heart attack must be treated as soon as possible. Treatment may include:\.br\ ? \.br\ Medicines to:\.br\ ? \.br\ Break up or dissolve blood clots.\.br\ ? \.br\ Thin your blood and help prevent blood clots.\.br\ ? \.br\ Treat blood pressure.\.br\ ? \.br\ Improve blood flow to the heart.\.br\ ? \.br\ Reduce pain.\.br\ ? \.br\ Reduce cholesterol.\.br\ ? \.br\ Procedures to widen a blocked artery and keep it open.\.br\ ? \.br\ Open heart surgery.\.br\ ? \.br\ Making your heart strong again (cardiac rehabilitation) through exercise, education, and counseling.\.br\ Follow these instructions at home:\.br\ Medicines\.br\ ? \.br\ Take lbqg-tdp-swwsjoj and prescription medicines only as told by your doctor.\.br\ ? \.br\ [facility] Lipid Panelon 07-10-2023 Cholesterol [Mass/Vol] 139 mg/dL Normal 120-200 [facility] Comment on above: Performed By: #### 2 341789, 5750485, 3528653, 505286639, 20571683, 6996065, 93673978, 1727449, 4206852 #### [facility] [address] [place] [address] Cholesterol in HDL [Mass/Vol] 33 mg/dL Invalid Interpretation Code [facility] Comment on above: Result Comment: HDL > or equal to 60 mg/dL: Low cardiovascular risk HDL < 40 mg/dL : High cardiovascular risk Performed By: #### 2 348276, 1354406, 3117714, 015069798, 74379283, 1745518, 17850103, 6804741, 0829382 #### [facility] [address] [place] [address] Cholesterol in LDL [Mass/Vol] 84 mg/dL Normal <=129 [facility] Comment on above: Performed By: #### 2 171408, 0708324, 9282714, 083208118, 51724287, 2268988, 25940474, 8243736, 1861891 #### [facility] [address] [place] [address] Cholesterol in VLDL [Mass/Vol] 23 mg/dL Normal 7-40 [facility] Comment on above: Performed By: #### 2 762980, 9013683, 0041482, 967929868, 16098247, 1403531, 11932529, 4022600, 5947992 #### [facility] [address] [place] [address] Triglyceride [Mass/Vol] 115 mg/dL Normal <=149 [facility] Comment on above: Performed By: #### 2 993544, 9004110, 6706270, 296215241, 55834935, 4540150, 92859549, 1445560, 0420011 #### [facility] [address] [place] [address] Lyteson 07-10-2023 Anion gap [Moles/Vol] 10 mmol/L Normal 6-16 [facility] Comment on above: Performed By: #### 2 402357, 6358563, 1211100, 440749436, 67639886, 1107556, 46139497, 7677702, 6902578 #### [facility] [address] [place] [address] Chloride [Moles/Vol] 111 mmol/L Normal 101-111 [facility] Comment on above: Performed By: #### 2 965957, 3298039, 0943557, 558277875, 84317135, 5063681, 35079955, 8621750, 7503032 #### [facility] [address] [place] [address] CO2 [Moles/Vol] 26 mmol/L Normal 21-31 [facility] Comment on above: Performed By: #### 2 489521, 1010878, 8860939, 639491358, 96843807, 5934714, 34749834, 1869445, 2085132 #### [facility] [address] [place] [address] Potassium [Moles/Vol] 3.8 mmol/L Normal 3.5-5.3 [facility] Comment on above: Performed By: #### 2 212207, 1153077, 5669846, 524174124, 75151376, 6787961, 32669878, 1264951, 4064801 #### [facility] [address] [place] [address] Sodium [Moles/Vol] 143 mmol/L Normal 135-145 [facility] Comment on above: Performed By: #### 2 788897, 9504704, 3378312, 935571102, 42643566, 9091812, 63896617, 1079051, 1684626 #### [facility] [address] [place] [address] Magnesiumon 07-10-2023 Magnesium [Mass/Vol] 1.8 mg/dL Normal 1.3-2.4 [facility] Comment on above: Performed By: #### 2 465980, 0339626, 5526607, 719446595, 63133905, 7729788, 04284738, 1284789, 2086289 #### [facility] [address] [place] [address] Monitor Recordon 07-10-2023 Monitor Record [id number] Normal [facility] Operative Reporton Operative Report Indication for Surgery Posterior STEMI Preoperative Diagnosis Presumed CAD Postoperative Diagnosis Confirmed CAD status post PCI of the left circumflex with MYNOR x1 primary PCI Operation Coronary angiography Left ventriculography Hemodynamic measurements of the left ventricle Primary PCI of the left circumflex with MYNOR x1 This note is completed immediately following the procedure the date and time of this procedure are the same as this note. Surgeon(s) Tiffany Jansen MD Anesthesia Conscious sedation Estimated Blood Loss Trivial Findings LMT: Normal left main trunk with bifurcation LAD: Normal caliber with mild irregularity and no stenosis, reaches the apex. LCx: Normal caliber with 99% OM1 lateral stenosis, reaches the lateral wall. RCA: Normal caliber with 100% mid stenosis, dominant, reaches the inferior wall. Collaterals from left to right robust. Hemodynamics: Elevated LVEDP at 27 mmHg with no gradient across the aortic valve. Left ventriculography: Abnormal LV systolic function, EF 45 %, inferolateral hypokinesis wall motion abnormalities and normal chamber size with no mitral regurgitation. PCI note: Successful PCI circumflex OM 1 lateral 99% stenosis ANNITA 2.5 flow reduced to 0% residual ANNITA-3 flow after implantation of a Xience 2.5/15 postdilated 2.75 NC at high pressure. Conclusions: Posterior STEMI secondary to left circumflex status post primary PCI with MYNOR x1. Importance of antiplatelet compliance was emphasized including risk of stent thrombosis or . The patient understands as well as his accompanying family member/friend that the patient may have stent thrombosis or heart attack and the patient agrees. I myself have specifically counseled the patient regarding stent thrombosis risk including and the patient will additionally be counseled by the [facility] team and in follow-up. CAD: DAPT, beta-tamika, statin, risk factor modification. Complications None Technique Following full and informed consent the patient was brought to the [facility] where sterile prep and drape were administered in usual fashion. Anesthesia was obtained in the right wrist with lidocaine after administration of conscious sedation. A 5/6 slender Terumo sheath was placed in the right radial artery without complication. Nitroglycerin and nicardipine were given via the sheath and heparin was given intravenously. A 6 Omani XB3.0 catheter was advanced and selectively engaged in the left main coronary artery. A wire was advanced across the lesion of the OM1. The lesion was dilated with a compliant balloon, stented with a drug-eluting stent X 1, and postdilated with a noncompliant balloon at high pressure. Completion angiography was performed in orthogonal projections with the wire and balloon removed. The guide catheter was engaged in the left main coronary artery where selective injections were performed for coronary angiography. 3 DRC catheter was used for angiography the RCA. A pigtail catheter was placed in the left ventricle where hemodynamic measurements the left ventricle were made and a bolus was given for left ventriculography. A pullback gradient was obtained. The sheath was removed with hemostasis obtained by D-Stat radial device at the end of the procedure without complication. Normal [facility] Comment on above: Result Comment: Elec tronically Signed By: Sheila POSEY, Tiffany Chavarria\.br\Date and Time Signed: 07/10/23 03:28 EDT Troponin 6 Hr.on 07-10-2023 Troponin I.cardiac [Mass/Vol] 7681.70 pg/mL Abnormal . [facility] Comment on above: Result Comment: Crit ical Result verified by previous result\ Critical Result I_hsTnI:7681.7 Called to JANNA YU at ICU by DIONI MCMILLAN and read back for confirmation at 07/10/2023 02:34:56 The 95% CI (Confidence Interval) PPV (Positive Predictive Value) for myocardial infarction in females is 38 pg/mL, in males 51 pg/mL. The results should be used in conjunction with clinical conditions of myocardial infarction. (Access High Sensitivity Troponin I Instructions For Use, Shivani [place], June 2018) Performed By: #### 2 132828, 0231708, 6735865, 541055695, 20762741, 8416620, 89104100, 4704283, 6225522 #### [facility] [address] [place] [address] Troponin 9 Hr.on 07-10-2023 Troponin I.cardiac [Mass/Vol] 9476.90 pg/mL Abnormal .-. [facility] Comment on above: Result Comment: Crit ical Result verified by previous result\ Critical Result I_hsTnI:9476.9 Called to OWEN SOSA at by JACQUI KEENE and read back for confirmation at 07/10/2023 06:06:55 The 95% CI (Confidence Interval) PPV (Positive Predictive Value) for myocardial infarction in females is 38 pg/mL, in males 51 pg/mL. The results should be used in conjunction with clinical conditions of myocardial infarction. (Access High Sensitivity Troponin I Instructions For Use, Shivani [place], June 2018) Performed By: #### 2 717610, 1371279, 3239925, 574745463, 54663316, 8057120, 02783337, 0359451, 0673250 #### [facility] [address] [place] [address] XR Chest Single Viewon 07-10 XR Chest Single View Exam Date/Time: 07/09/2023 19:58 EDT Reason for Exam: Chest pain Report IMPRESSION: Possible trace bilateral pleural effusions. Possible mild pulmonary edema or vascular congestion. EXAMINATION: XR Chest Single View Clinical History: Chest pain STEMI. Comparison: None RESULT: No distinct focal consolidation. Mild blunting of the costophrenic angles could reflect trace pleural effusions. Mildly coarsened interstitial markings, possible mild pulmonary edema or vascular congestion. No pneumothorax. Borderline cardiomegaly, accentuated by portable technique. Aortic vascular calcifications. No acute osseous findings. Ordering Provider: Silver Martinez FINAL REPORT Dictated: 07/10/2023 8:17 am Silas Chen MD. Signed (Electronic Signature): 07/10/2023 8:17 am Signed by: Silas Chen MD Transcribed by: JEANINE Technologist: JORGE A Technical Comments Radiation Dose: Ka,r in mGy = . DAP = . Normal [facility] eGFRon 07-10-2023 GFR/1.73 sq M.predicted among non-blacks MDRD (S/P/Bld) [Vol rate/Area] 101 mL/min/1.73 m2 Normal >=59 [facility] Comment on above: Order Comment: Order added by Discern Expert. 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 Kidney failure is indicated at less than 15 mL/min/1.73m2. Performed By: #### 2 364172, 9132652, 8280998, 476645606, 93363988, 1200562, 57574441, 0691682, 0353170 #### [facility] [address] [place] [address] Auto Diffon 07-09-2023 Basophils/100 WBC (Bld) 0.6 % Normal 0.0-2.0 [facility] Comment on above: Order Comment: Order Added by Discern Expert. Performed By: #### 2 670143, 8114200, 8504543, 991365222, 53688225, 7526152, 85141840, 6747313, 6076137 #### [facility] [address] [place] [address] Basophils/Leukocytes Auto (Bld) [Pure # fraction] 0.0 E9/L Normal 0.0-0.2 [facility] Comment on above: Order Comment: Order Added by Discern Expert. Performed By: #### 2 872570, 2529648, 8099093, 952248130, 71958895, 5339643, 42979492, 9315744, 0875726 #### [facility] [address] [place] [address] Eosinophils/100 WBC (Bld) 1.5 % Normal 0.0-8.0 [facility] Comment on above: Order Comment: Order Added by Discern Expert. Performed By: #### 2 590079, 3301071, 0677804, 189474378, 77952510, 4030384, 91076472, 1964357, 1852911 #### [facility] [address] [place] [address] Eosinophils/Leukocyt es Auto (Bld) [Pure # fraction] 0.1 E9/L Normal 0.0-0.5 [facility] Comment on above: Order Comment: Order Added by Discern Expert. Performed By: #### 2 684473, 5068273, 6403736, 460516430, 95873437, 9434411, 60301526, 3838447, 5371594 #### [facility] [address] [place] [address] Lymphocytes/100 WBC (Bld) 32.6 % Normal 14.0-50.0 [facility] Comment on above: Order Comment: Order Added by Discern Expert. Performed By: #### 2 614392, 3604051, 5415022, 671001649, 95297851, 0749795, 86740396, 2233754, 4671917 #### [facility] [address] [place] [address] Lymphocytes/Leukocyt es Auto (Bld) [Pure # fraction] 1.8 E9/L Normal 1.0-4.0 [facility] Comment on above: Order Comment: Order Added by Discern Expert. Performed By: #### 2 502378, 9344042, 4015984, 102113053, 75181144, 9841091, 05469402, 2022346, 3277244 #### [facility] [address] [place] [address] Monocytes/100 WBC (Bld) 8.5 % Normal 4.0-14.0 [facility] Comment on above: Order Comment: Order Added by Discern Expert. Performed By: #### 2 092855, 9401396, 4650243, 355379968, 69487972, 9016158, 39577100, 9854409, 2070136 #### [facility] [address] [place] [address] Monocytes/Leukocytes Auto (Bld) [Pure # fraction] 0.5 E9/L Normal 0.2-1.0 [facility] Comment on above: Order Comment: Order Added by Discern Expert. Performed By: #### 2 224685, 9138460, 0990654, 799851861, 16788380, 2822500, 29536637, 4566830, 3775383 #### [facility] [address] [place] [address] Neutrophils/100 WBC (Bld) 56.8 % Normal 36.0-75.0 [facility] Comment on above: Order Comment: Order Added by Discern Expert. Performed By: #### 2 164915, 8655510, 9434602, 879656184, 14340410, 4428087, 79982077, 8566817, 5426565 #### [facility] [address] [place] [address] Neutrophils/Leukocyt es Auto (Bld) [Pure # fraction] 3.2 E9/L Normal 2.0-7.5 [facility] Comment on above: Order Comment: Order Added by Discern Expert. Performed By: #### 2 760955, 2824584, 0378882, 113734282, 48837322, 9489406, 94420756, 7683781, 8755597 #### [facility] [address] [place] [address] BMPon 07-09-2023 Anion gap [Moles/Vol] 12 mmol/L Normal 6-16 [facility] Comment on above: Performed By: #### 2 292573, 3365144, 8622427, 518538541, 91936069, 1945540, 14732848, 7664957, 8653847 #### [facility] [address] [place] [address] Calcium [Mass/Vol] 9.3 mg/dL Normal 8.9-11.1 [facility] Comment on above: Performed By: #### 2 594865, 4421056, 6591714, 347213215, 82539784, 9659982, 09172436, 0854455, 4313686 #### [facility] [address] [place] [address] Chloride [Moles/Vol] 100 mmol/L Low 101-111 [facility] Comment on above: Performed By: #### 2 056293, 3007287, 1024444, 160930746, 31838486, 7128688, 60301065, 4812059, 9510182 #### [facility] [address] [place] [address] CO2 [Moles/Vol] 29 mmol/L Normal 21-31 [facility] Comment on above: Performed By: #### 2 364573, 7160370, 1500801, 177531188, 86311123, 7624418, 15898299, 1128229, 3880917 #### [facility] [address] [place] [address] Creatinine [Mass/Vol] 0.7 mg/dL Normal 0.5-1.3 [facility] Comment on above: Performed By: #### 2 206432, 2911906, 3969969, 851904316, 36045551, 5264317, 99476260, 8392504, 6750939 #### [facility] [address] [place] [address] Glucose [Mass/Vol] 101 mg/dL Normal 55-199 [facility] Comment on above: Result Comment: If t his glucose result represents a fasting glucose, interpretation should refer to the following reference range: 55-99 mg/dL Performed By: #### 2 520625, 6990085, 1753872, 141604429, 87200103, 2294660, 96057487, 0385777, 1048871 #### [facility] [address] [place] [address] Potassium [Moles/Vol] 2.9 mmol/L Low 3.5-5.3 [facility] Comment on above: Performed By: #### 2 819931, 8161190, 4539605, 712560522, 09972143, 1765967, 34824059, 2941989, 9465060 #### [facility] [address] [place] [address] Sodium [Moles/Vol] 138 mmol/L Normal 135-145 [facility] Comment on above: Performed By: #### 2 638358, 3366811, 2957473, 700521361, 87346562, 3200819, 54976185, 7842403, 2663112 #### [facility] [address] [place] [address] Urea nitrogen [Mass/Vol] 7 mg/dL Normal 5-21 [facility] Comment on above: Performed By: #### 2 523016, 4904582, 5785415, 935908983, 61894550, 8445064, 16199242, 8303829, 3161542 #### [facility] [address] [place] [address] Urea nitrogen/Creatinine [Mass ratio] 10 No Units Normal 10-20 [facility] Comment on above: Performed By: #### 2 735696, 7301757, 6292719, 496691767, 34788499, 6568127, 15114059, 5423080, 5646380 #### [facility] [address] [place] [address] CBC w/ Auto Diffon 3 Erythrocyte distribution width (RBC) [Ratio] 12.6 % Normal 10.9-14.2 [facility] Comment on above: Performed By: #### 2 300234, 5512907, 0076087, 389907217, 75825868, 1341082, 94530154, 4707813, 9390442 #### [facility] [address] [place] [address] Hematocrit (Bld) [Volume fraction] 42.8 % Normal 34.0-46.0 [facility] Comment on above: Performed By: #### 2 323073, 2373703, 5972542, 341717570, 03967652, 7799706, 06651523, 6184088, 5236300 #### [facility] [address] [place] [address] Hemoglobin (Bld) [Mass/Vol] 14.7 g/dL Normal 12.0-16.0 [facility] Comment on above: Performed By: #### 2 800910, 2089432, 9929594, 109931152, 51651626, 4659763, 38753507, 6615779, 3517088 #### [facility] [address] [place] [address] MCH (RBC) [Entitic mass] 32.3 pg Normal 27.0-34.0 [facility] Comment on above: Performed By: #### 2 680850, 4915837, 7521186, 030715747, 11675266, 3077452, 91952355, 6019983, 2211059 #### [facility] [address] [place] [address] MCHC (RBC) [Mass/Vol] 34.4 g/dL Normal 31.4-36.0 [facility] Comment on above: Performed By: #### 2 711043, 8507654, 8720541, 510085370, 00051620, 8176556, 29110378, 5908205, 6692702 #### [facility] [address] [place] [address] MCV (RBC) [Entitic vol] 93.8 fL Normal 80.0-100.0 [facility] Comment on above: Performed By: #### 2 153612, 2221530, 9598749, 553981704, 22688536, 2125841, 40709661, 0470635, 5773732 #### [facility] [address] [place] [address] Platelet mean volume (Bld) [Entitic vol] 8.2 fL Normal 6.4-10.8 [facility] Comment on above: Performed By: #### 2 114726, 0519109, 4327051, 100492648, 58270226, 2177204, 30740319, 0596394, 5951367 #### [facility] [address] [place] [address] Platelets (Bld) [#/Vol] 266.0 E9/L Normal 150.0-500.0 [facility] Comment on above: Performed By: #### 2 088070, 1678974, 9775459, 795300327, 34064441, 4809850, 19733425, 5116004, 7866153 #### [facility] [address] [place] [address] RBC (Bld) [#/Vol] 4.6 E12/L Normal 4.3-5.9 [facility] Comment on above: Performed By: #### 2 582583, 7206833, 8337488, 252368590, 89826157, 2922739, 83122391, 6563678, 0646131 #### [facility] [address] [place] [address] WBC corrected for nucl RBC Auto (Bld) [#/Vol] 5.6 E9/L Normal 4.0-11.0 [facility] Comment on above: Performed By: #### 2 737226, 1584670, 1221900, 223302835, 41836657, 3874466, 65649505, 2906692, 6116068 #### [facility] [address] [place] [address] CHEMISTRYOrdered By: SYSTEM SYSTEM on 07-09-2023 Troponin I.cardiac [Mass/Vol] 2850.80 pg/mL Invalid Interpretation Code 10.10 - 27.10 pg/mL [facility] Remisol Comment on above: Result Comment: Crit ical Result verified by previous result\ Critical Result I_hsTnI:2850.8 Called to MARIA A GÓMEZ at ICU by DIONI MCMILLAN and read back for confirmation at 07/09/2023 23:06:42 Anion gap [Moles/Vol] 12 mmol/L Normal 6 - 16 mEq/L FT Remisol Calcium [Mass/Vol] 9.3 mg/dL Normal 8.9 - 11.1 mg/dL FT Remisol Chloride [Moles/Vol] 100 mmol/L Low 101 - 111 mmol/ L FT Remisol CO2 [Moles/Vol] 29 mmol/L Normal 21 - 31 mmol/L FT Remisol Creatinine [Mass/Vol] 0.7 mg/dL Normal 0.5 - 1.3 mg/dL FT Remisol GFR/1.73 sq M.predicted among non-blacks MDRD (S/P/Bld) [Vol rate/Area] 97 mL/min/1.73 m2 Normal >=59mL/min/1.73 m2 [facility] Chem S Glucose [Mass/Vol] 101 mg/dL Normal 55 - 199 mg/dL FT Remisol Potassium [Moles/Vol] 2.9 mmol/L Low 3.5 - 5.3 mmol/L [facility] Remisol Sodium [Moles/Vol] 138 mmol/L Normal 135 - 145 mmol/L [facility] Remisol Urea nitrogen [Mass/Vol] 7 mg/dL Normal 5 - 21 mg/dL [facility] Remisol Urea nitrogen/Creatinine [Mass ratio] 10 mg/mg Normal 10 - 20 [facility] Remisol COAGULATIONOrdered By: Santiago Schwarz on 07-09-2023 aPTT Coag (PPP) [Time] 32.3 s Normal 25.1 - 36.5 second(s) [facility] Auto Coag INR Coag (PPP) [Relative time] 1.0 {INR} Invalid Interpretation Code [facility] Auto Coag PT Coag (PPP) [Time] 10.9 s Normal 9.4 - 1 2.5 second(s) [facility] Auto Coag Consent for Treatmenton 06-15 Consent for Treatment [id number]#1.00CD:127 Normal [facility] ED Note-Physicianon 07-09-20 23 ED Note-Physician Basic Information Time Seen: Silver Martinez DO [place]. 07/09/2023 19:35 Chief Complaint Pt. presents to the ed with c/o Chest pain and SOB that increased in the last couple hours, pt. states symptoms started off and on three weeks ago. History of Present Illness HPI: Patient is a 62-year-old female with past ministry of anxiety, COPD, hypertension, tobacco use who presents the ED via EMS from home for chest pain. Patient states this started a couple of hours ago and has been waxing waning since then. The pain is substernal. She states she has associated shortness of breath and nausea with this. Prior to arrival she was given 4 baby aspirin as well as 2 doses of Zofran and a dose of nitroglycerin. She states the pain slightly improved with the nitroglycerin. She is never had pain like this in the past. ROS: Pertinent review of systems conducted and is negative except as noted above. Physical exam: General: nontoxic appearing and in no distress HEENT: Mucous membranes moist Neuro: awake and alert Neck: supple, trachea midline Card: Heart regular rate and rhythm no murmur Resp: Lungs clear to auscultation no wheeze or rhonchi Abd: Soft and nondistended. No tenderness to palpation with no rebound or guarding. Ext: No gross deformity or edema Physical Exam Vitals & Measurements T: 36.7 ?C(Oral) HR: 93(Peripheral) RR: 30 BP: 108/69 SpO2: 92% HT: 154.94 cm WT: 73 kg BMI: 30.41 Medical Decision Making MEDICAL DECISION MAKING Number and Complexity of Problems Differential Diagnosis: [] MDM Data External documents reviewed: N/A My EKG interpretation: Noted in chart if applicable My CT interpretation: N/A My X-ray interpretation: Noted in chart if applicable My Ultrasound interpretation: N/A Decision rules/scores evaluated: N/A Discussed with: N/A Treatment and Disposition ED Course: On arrival to ED the patient is nontoxic-appearing and in no distress but she is still having some chest pain. EKG is obtained on arrival and does show elevations in 3 and aVF as well as significant depressions in the lateral precordial leads and I do feel this is most likely a STEMI. STEMI team was called overhead. Patient already received aspirin prior to arrival we will give her Brilinta and heparin. Case was discussed with Dr. Sue who is on-call for cardiology. [facility] for further intervention. Shared decision making: As above Code status: N/A Assessment/Plan Acute ST elevation myocardial infarction (STEMI) (I21.3: ST elevation (STEMI) myocardial infarction of unspecified site) Orders: heparin, 4,782 unit(s) = 0.96 mL, Injection, IV Push, Once, Stop date 07/09/23 19:44:00 EDT, STAT, Start date 07/09/23 19:44:00 EDT, 07/09/23 19:44:00 EDT Sodium Chloride 0.9% intravenous solution 1,000 mL, 1,000 mL, IV, KVO, STAT, Start date 07/09/23 19:44:00 EDT, Total volume (mL): 1,000, 79.7 kg, 1.86, m2 ticagrelor, 180 mg = 2 tab(s), Tab, Oral, Once, Stop date 07/09/23 19:44:00 EDT, STAT, Start date 07/09/23 19:44:00 EDT, 07/09/23 19:44:00 EDT Automated Diff Basic Metabolic Panel CBC w/ Auto Diff Communication Order Communication Order CV Cardiovascular CV Coronary IVUS FFR Initial CV Coronary IVUS Initial ECG 12 Lead Adult ED Cardiac Monitoring ED Cardiac Monitoring eGFR Oxygen Saturation Oxygen Therapy Place in Status PT & PTT Saline Lock Insert Troponin 0 Hr. Troponin 3 Hr. Troponin 6 Hr. Troponin 9 Hr. XR Chest Single View Disposition Plan Discharge Prescription List Prescriptions No active prescription medications Follow-up No qualifying data available Problem List/Past Medical History Ongoing Anxiety and depression COPD (chronic obstructive pulmonary disease) Current smoker History of total abdominal hysterectomy HTN (hypertension), benign Polyneuropathy Primary insomnia RLS (restless legs syndrome) Walker as ambulation aid Historical No qualifying data Procedure/Surgical History Gallbladder, Hysterectomy. Medications Inpatient heparin 5000 units/mL Inj, 4782 unit(s)= 0.96 mL, 60 unit/kg, IV Push, Once Sodium Chloride 0.9% IV Bettye 1000 mL 1,000 mL, 1000 mL, IV ticagrelor 90 mg oral tablet, 180 mg= 2 tab(s), Oral, Once Home Albuterol (Eqv-ProAir HFA) 90 mcg/inh inhalation aerosol, 2 puff(s), Inhalation, q4hr alprazolam 1 mg Tab, 1 mg= 1 tab(s), Oral, QID, PRN amLODIPine 5 mg Tab, 5 mg= 1 tab(s), Oral, Daily, 1 refills Effexor XR 150 mg Cap-ER Handicap Placard, 5 years., See Instructions Lamictal 25 mg Tab losartan 100 mg Tab, 100 mg= 1 tab(s), Oral, Daily, 1 refills quetiapine, 400 mg, Oral, qPM ropinirole 1 mg Tab, 1 mg= 1 tab(s), Oral, Daily, 1 refills traZODONE 100 mg Tab Trelegy Ellipta 100 mcg-62.5 mcg-25 mcg inhalation powder, 1 puff(s), Inhalation, Daily ZyPREXA 5 mg Tab Allergies BuSpar (Migraine, Unknown) sulfa drugs (Rash) Lyrica (unknown) Tape (Sensitive) sulfamethoxazole (Unknow (more content not included)... Normal [facility] Comment on above: Result Comment: Elec tronically Signed By: Silver Martinez DO\.br\Date and Time Signed: 07/09/23 19:48 EDT HEMATOLOGYOrdered By: SYSTEM SYSTEM on 07-09-2023 Basophils/100 WBC (Bld) 0.6 % Normal 0.0 - 2.0 % [facility] HemeAutoSS Basophils/Leukocytes Auto (Bld) [Pure # fraction] 0.0 E9/L Normal 0.0 - 0.2 E9/L [facility]eAutoSS Eosinophils/100 WBC (Bld) 1.5 % Normal 0.0 - 8.0 % [facility] HemeAutoSS Eosinophils/Leukocyt es Auto (Bld) [Pure # fraction] 0.1 E9/L Normal 0.0 - 0.5 E9/L [facility]eAutoSS Lymphocytes/100 WBC (Bld) 32.6 % Normal 14.0 - 50.0 % [facility] HemeAutoSS Lymphocytes/Leukocyt es Auto (Bld) [Pure # fraction] 1.8 E9/L Normal 1.0 - 4.0 E9/L [facility]eAutoSS Monocytes/100 WBC (Bld) 8.5 % Normal 4.0 - 14.0 % [facility] HemeAutoSS Monocytes/Leukocytes Auto (Bld) [Pure # fraction] 0.5 E9/L Normal 0.2 - 1.0 E9/L [facility]eAutoSS Neutrophils/100 WBC (Bld) 56.8 % Normal 36.0 - 75.0 % [facility]eAutoSS Neutrophils/Leukocyt es Auto (Bld) [Pure # fraction] 3.2 E9/L Normal 2.0 - 7.5 E9/L [facility]eAutoSS HEMATOLOGYOrdered By: Dioni Mcmillan on 07-09-2023 Erythrocyte distribution width (RBC) [Ratio] 12.6 % Normal 10.9 - 14.2 % [facility] Hematocrit (Bld) [Volume fraction] 42.8 % Normal 34.0 - 46.0 % [facility]eAutoSS Hemoglobin (Bld) [Mass/Vol] 14.7 g/dL Normal 12.0 - 16.0 gm/dL [facility]Auto[facility] MCH (RBC) [Entitic mass] 32.3 pg Normal 27.0 - 34.0 pg [facility]eAutoSS MCHC (RBC) [Mass/Vol] 34.4 g/dL Normal 31.4 - 36.0 gm/dL [facility]eAutoSS MCV (RBC) [Entitic vol] 93.8 fL Normal 80.0 - 100.0 fL [facility] HemeAutoSS Platelet mean volume (Bld) [Entitic vol] 8.2 fL Normal 6.4 - 10.8 fL [facility] HemeAutoSS Platelets (Bld) [#/Vol] 266.0 E9/L Normal 150.0 - 500.0 E9/L [facility] HemeAutoSS RBC (Bld) [#/Vol] 4.6 E12/L Normal 4.3 - 5.9 E12/L [facility] HemeAutoSS WBC corrected for nucl RBC Auto (Bld) [#/Vol] 5.6 E9/L Normal 4.0 - 11.0 E9/L [facility] HemeAutoSS Monitor Recordon 07-09-2023 Monitor Record [id number] 290#1.00CD:127 Normal [facility] Monitor Record [id number] 365#1.00CD:127 Normal [facility] PT & PTTon 07-09-2023 aPTT Coag (PPP) [Time] 32.3 second(s) Normal 25.1-36.5 [facility] Comment on above: Result Comment: Para meter 15 days - 4 weeks 1 - 5 months 6 - 11 months 1 - 5 years 6 - 10 years 11 - 17 years PTT Mean: 35.4 (27.6-45.6) Mean: 33.5 (24.8-40.7) Mean: 32.4 (25.1-40.7) Mean: 31.6 (24.0-39.2) Mean: 31.6 (26.9-38.7) Mean: 31.0 (24.6-38.4) Pediatric Reference ranges were obtained from a study by Messi Chambers et al. prepared from 1437 samples obtained at 7 different centers using the same coagulation reagent and instrumentation as [facility]. Currently there are no coagulation studies available worldwide for children to 14 days, and no normal ranges. Heparin therapeutic range (represented by Anti-Factor Xa activity of 0.2 - 0.4 U/mL) corresponds to PTT of 56.6 - 109.0 sec. Performed By: #### 2 [id number], [id number], 6102712, [id number], 23189887, 7563636, 10388416, 7011945, 9176042 #### [facility] [address] [place] [address] INR Coag (PPP) [Relative time] 1.0 {INR} Invalid Interpretation Code [facility] Comment on above: Result Comment: INR results are specifically intended to assess patients stabilized on long-term Anticoagulation therapy suggested INR?s ?Less Intensive Anticoagulation? 2.0 ? 3.0 Conventional Range 3.0 ? 4.5 Performed By: #### 2 [id number], 0145546, 2103301, [id number], 96145157, 4093122, 45156647, 5283677, 2883644 #### [facility] [address] [place] [address] PT Coag (PPP) [Time] 10.9 second(s) Normal 9.4-12.5 [facility] Comment on above: Result Comment: 15 d ays - 4 weeks 1 - 5 months 6 -11 months 1 ? 5 years 6 ? 10 years 11 -17 years Mean: 11.2 (9.5 ? 12.6) Mean: 11.0 (9.7 ? 12.8) Mean: 11.0 (9.8 ? 13.0) Mean: 11.3 (9.9 ? 13.4) Mean: 11.7 (10.0 ? 14.6) Mean: 11.8 (10.0 - 14.1) Pediatric Reference ranges were obtained from a study by Messi Chambers et al. prepared from 1437 samples obtained at 7 different centers using the same coagulation reagent and instrumentation as [facility]. Currently there are no coagulation studies available worldwide for children to 14 days, and no normal ranges. Performed By: #### 2 [id number], 6243605, 2038994, [id number], 67267433, 7183325, 45128222, 1694371, 3874048 #### [facility] [address] [place] [address] Pre-Arrival Noteon 3 Pre-Arrival Note Pre-Arrival Summary Name: chest pain/nausea, ncems Current Date: 07/09/2023 19:33:15 EDT Gender: Female Date of : Age: Pre-Arrival Type: EMS ETA: 07/09/2023 19:52:00 EDT Primary Care Physician: Presenting Problem: chest pains Pre-Arrival User: Ant Anglin RN Referring Source: Location: [place] Completion Date/Time: 07/09/2023 19:22:00 [facility] Emergency Department Pre-Hospital Report Form ___ Vital Signs: 96/61 97p/ulse, 18, 98% room air/ , Pre-Hospital Report:chest pain onset 1 hour ago. Treatment in Route: 4 ASA, zofran x2, nitro x1. IV with fluids infusing. Response to Treatment: Misc. Issues: Normal [facility] RAD - Preliminary Radiology Reporton 07-09-2023 RAD - Preliminary Radiology Report [id number] 655#1.00CD:127 Normal [facility] Troponin 0 Hr.on 07-09-2023 Troponin I.cardiac [Mass/Vol] 509.70 pg/mL Abnormal 10.10-27.10 [facility] Comment on above: Result Comment: Unab le to repeat due to low volume.\ Critical Result I_hsTnI:509.7 Called to ZAKIA COMER at [facility] by REN SCHWARZ and read back for confirmation at 07/09/2023 20:22:55 The 95% CI (Confidence Interval) PPV (Positive Predictive Value) for myocardial infarction in females is 38 pg/mL, in males 51 pg/mL. The results should be used in conjunction with clinical conditions of myocardial infarction. (Access High Sensitivity Troponin I Instructions For Use, Shiv[employer] [place], June 2018) Performed By: #### 2 [id number], 5654814, 3607847, [id number], 43316307, 5194053, 85823498, 0858978, 8871507 #### [facility] [address] [place] [address] Troponin 3 Hr.on 07-09-2023 Troponin I.cardiac [Mass/Vol] 2850.80 pg/mL Abnormal 10.10-27.10 [facility] Comment on above: Result Comment: Crit ical Result verified by previous result\ Critical Result I_hsTnI:2850.8 Called to MARIA A GÓMEZ at ICU by DIONI MCMILLAN and read back for confirmation at 07/09/2023 23:06:42 The 95% CI (Confidence Interval) PPV (Positive Predictive Value) for myocardial infarction in females is 38 pg/mL, in males 51 pg/mL. The results should be used in conjunction with clinical conditions of myocardial infarction. (Access High Sensitivity Troponin I Instructions For Use, [employer], June 2018) Performed By: #### 2 [id number], 0938786, 2775746, [id number], 90284003, 2817506, 33606122, 6625025, 4957018 #### [facility] [address] [place] [address] eGFRon 07-09-2023 GFR/1.73 sq M.predicted among non-blacks MDRD (S/P/Bld) [Vol rate/Area] 97 mL/min/1.73 m2 Normal >=59 [facility] Comment on above: Order Comment: Order added by Discern Expert. 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 Kidney failure is indicated at less than 15 mL/min/1.73m2. Performed By: #### 2 [id number], 7386639, 9376507, 148533349, 95065246, 8216233, 18047661, 3493005, 6427289 #### [facility] [address] [place] [address] Creatinine (Bld) [Mass/Vol]O rdered By: Jose Cruz on 06-18-2023 Creatinine [Mass/Vol] 0.7 mg/dL 0.6-1.3 [facility] Comment on above: ER/ESD physician is notified/shown all ISTAT results.Critical values may be confirmed by laboratory testing ifdeemed necessary by ER attending doctor. MR lumbar spine wo/w conon 0 06-18-2023 MR lumbar spine wo/w con [facility] Main [place] [address] [place], [place] [id number] MRI Report Signed Patient: Livia Jacobo MR#: [id number] : 1960 Acct:[id number] Age/Sex: 62 / F ADM Date: 06/18/23 Loc: MR Room: Type: [facility] Attending Dr: Jose Cruz MD Copies to: Jose Cruz MD Ordering Provider: Jose Cruz MD Date of Service: 06/18/23 MR/MR lumbar spine wo/w con: Low back pain, unspecified MRI Lumbar Spine with and withoutcontrast TECHNIQUE: Multiplanar T1 and T2-weighted imaging of lumbar spine obtained without contrast.15 cc of ProHance. HISTORY: Low back pain for several years. Radiation down the legs. Bilateral toe numbness. COMPARISON: 01/06/2021 The last fully segmented vertebral pair is operationally defined as L5/S1. POST SURGERY CHANGES: L4 S1 posterior fusion changes with decompression. BONE MARROW INFILTRATION: None BONE MARROW EDEMA: None BONY ALIGNMENT: Adequate bony alignment identified. SPINAL CANAL: No significant central canal narrowing. LUMBAR FRACTURE: None BONY LESIONS: None KIDNEYS: No hydronephrosis is identified. AORTA: No aortic aneurysm is seen. CONUS MEDULLARIS : The distal spinal cord is in adequate position without abnormality. Additional findings No pathologic enhancement. CONJOINED NERVE ROOT: None Lower thoracic level: Mild spondylosis L1-2 :Mild spondylosis. Diffuse disc bulge. Patent central canal. Facet ligamentum flavum pertinent feet. Moderate right and moderate left neural foraminal narrowing L2-3: Extensive spondylosis with reactive endplate changes. Diffuse disc bulge. Mild to moderate central canal stenosis. Facet ligamentum flavum hypertrophy. Marked right and moderate left neural foraminal narrowing. L3-4: Mild spondylosis. Diffuse disc bulge. Facet ligamentum flavum hypertrophy. Mild central canal stenosis. Mild bilateral neural foraminal narrowing. L4-5: Uncomplicated postsurgical changes. L5-S1: Uncomplicated postsurgical changes. MR/MR lumbar spine wo/w con IMPRESSION: Stable L4 S1 postsurgical changes. Redemonstration of nonsurgical levels of degenerative change with diffuse disc bulges and regions of mild to moderate to central canal stenosis and neuroforaminal narrowing similar to prior examination. Pre-MRI plain film assessment: None Impression dictated by: Eliot Walsh M.D.06/18/2023 2:10 PM Dictation Location: [place] [address] Transcribed By: [facility] 06/18/23 1410 Dictated By: Eliot Walsh DO 06/18/23 1403 Signed By: 06/18/23 1410 Normal [facility] Phys[facility] METHYLMALONIC ACID (MMA)on 0 02-16-2023 Methylmalonic Acid, Serum 141 nmol/L Normal 0-378 [facility] Comment on above: Performed By: #### M MA2 #### [facility] [address] [place] [address] Dr. Khadra Pascual PROTEIN ELECTROPHERESIS W/IN TERPRETATIONon 02-16-2023 Albumin [Mass/Vol] 3.6 g/dL Normal 2.9-4.4 [facility] Comment on above: Performed By: #### P RTELIN #### [facility] [address] [place] [address] [address] Khadra Pascual Albumin/Globulin [Mass ratio] 1.0 {ratio} Normal 0.7-1.7 [facility] Comment on above: Performed By: #### P RTELIN #### [facility] [address] [place] [address] [address] Khadra Pascual Isndb-1-Huqyqmwi 0.3 g/dL Normal 0.0-0.4 [facility] Comment on above: Performed By: #### P RTELIN #### [facility] [address] [place] [address] [address] Khadra Pascual Bmvnl-7-Vgjcgbpp 1.0 g/dL Normal 0.4-1.0 [facility] Comment on above: Performed By: #### P RTELIN #### [facility] [address] [place] [address] [address] Khadra Pascual Beta Globulin 1.2 g/dL Normal 0.7-1.3 [facility] Comment on above: Performed By: #### P RTELIN #### [facility] [address] [place] [address] Dr. Khadra Pascual Gamma Globulin 1.2 g/dL Normal 0.4-1.8 [facility] Comment on above: Performed By: #### P RTELIN #### [facility] [address] [place] [address] Dr. Khadra Pascual Globulin (S) [Mass/Vol] 3.7 g/dL Normal 2.2-3.9 [facility] Comment on above: Performed By: #### P RTELIN #### [facility] [address] [place] [address] Dr. Khadra Pascual M-Gene Not Observed Normal Not Observed [facility] Comment on above: Performed By: #### P RTELIN #### [facility] [address] [place] [address] Dr. Khadra Pascual P E Interpretation, S Comment Normal [facility] Comment on above: Result Comment: The SPE pattern appears unremarkable. Evidence of monoclonal protein is not apparent. Performed By: #### P RTELIN #### [facility] [address] [place] [address] Dr. Khadra Pascual PDF . Normal [facility] Comment on above: Performed By: #### P RTELIN #### [facility] [address] [place] [address] Dr. Khadra Pascual Please note: Comment Normal [facility] Comment on above: Result Comment: Prot ein electrophoresis scan will follow via computer, mail, or police manager delivery. Performed By: #### P RTELIN #### [facility] [address] [place] [address] [address] Khadra Pascual Protein [Mass/Vol] 7.3 g/dL Normal 6.0-8.5 [facility] Comment on above: Performed By: #### P RTELIN #### [facility] [address] [place] [address] Dr. Khadra Pascual REMY COMPREHENSIVE PROFILEon 02-15-2023 Anti-Centromere B Antibodies <0.2 Normal 0.0-0.9 [facility] Comment on above: Performed By: #### A NAPROF #### [facility] [address] [place] [address] Dr. Khadra Pascual Anti-DNA (DS) Ab Qn 3 IU/mL Normal 0-9 [facility] Comment on above: Result Comment: Nega tive <5 Equivocal 5 - 9 Positive >9 Performed By: #### A NAPROF #### [facility] [address] [place] [address] Dr. Khadra Pascual Anti-Magalis-1 <0.2 Normal 0.0-0.9 [facility] Comment on above: Performed By: #### A ELENIROF #### [facility] [address] [place] [address] Dr. Khadra Pascual Antichromatin Antibodies <0.2 Normal 0.0-0.9 [facility] Comment on above: Performed By: #### A NAPROF #### [facility] [address] [place] [address] Dr. Khadra Pascual ANTIRIBOSOMAL P AB <0.2 Normal 0.0-0.9 [facility] Comment on above: Performed By: #### A NAPROF #### [facility] [address] [place] [address] Dr. Khadra Pascual Antiscleroderma-70 Antibodies <0.2 Normal 0.0-0.9 [facility] Comment on above: Performed By: #### A NAPROF #### [facility] [address] [place] [address] Dr. Khadra Pascual COMMENT Comment Normal [facility] Comment on above: Result Comment: Auto antibody Disease Association Condition Frequency Antinuclear Antibody, SLE, mixed connective Direct (REMY-D) tissue diseases dsDNA SLE 40 - 60% Chromatin Drug induced SLE 90% SLE 48 - 97% SSA (Ro) SLE 25 - 35% Sjogren's Syndrome 40 - 70% Lupus 100% SSB (La) SLE 10% Sjogren's Syndrome 30% Sm (anti-Jackson) SLE 15 - 30% GLUE BONE DRIER Mixed Connective Tissue Disease 95% (U1 nRNP, SLE 30 - 50% anti-ribonucleoprotein) Polymyositis and/or Dermatomyositis 20% Scl-70 (antiDNA Scleroderma (diffuse) 20 - 35% topoisomerase) Crest 13% Magalis-1 Polymyositis and/or Dermatomyositis 20 - 40% Centromere B Scleroderma - Crest variant 80% Ribosomal P SLE 10 - 20% Performed By: #### A NAPROF #### [facility] [address] [place] [address] Dr. Khadra Pascual GLUE BONE DRIER Antibodies <0.2 Normal 0.0-0.9 [facility] Comment on above: Performed By: #### A NAPROF #### [facility] [address] [place] [address] Dr. Khadra Forresterogrkiana's Anti-SS-A <0.2 Normal 0.0-0.9 [facility] Comment on above: Performed By: #### A NAPROF #### [facility] [address] [place] [address] Dr. Khadra Forresterogrkiana's Anti-SS-B <0.2 Normal 0.0-0.9 [facility] Comment on above: Performed By: #### A NAPROF #### [facility] [address] [place] [address] Dr. Khadra Pascual Jackson Antibodies <0.2 Normal 0.0-0.9 [facility] Comment on above: Performed By: #### A NAPROF #### [facility] [address] [place] [address] Dr. Khadra Pascual [place]/GLUE BONE DRIER Antibodies <0.2 Normal 0.0-0.9 [facility] Comment on above: Performed By: #### A NAPROF #### [facility] [address] [address] [address] Khadra Pascual CRPon 02-14-2023 CRP [Mass/Vol] mg/L Normal <=1.0 [facility] Comment on above: Performed By: #### T SH, T7, CRP, CMP #### [facility] [address] [address] [address] Khadra Pascual FREE THYROXINE INDEX T7on FTI 1.70 Normal 1.30-4.50 [facility] Comment on above: Performed By: #### T SH, T7, CRP, CMP #### [facility] [address] [address] [address] Khadra Pascual T3U 32.0 % Normal 30.0-39.0 [facility] Comment on above: Performed By: #### T SH, T7, CRP, CMP #### [facility] [address] [address] [address] Khadra Pascual T4 [Mass/Vol] 5.30 ug/dL Normal 4.80-13.90 [facility] Comment on above: Performed By: #### T SH, T7, CRP, CMP #### [facility] [address] [address] [address] Khadra Pascual GLYCOHEMOGLOBIN A1Con 2022 ADA RECOMMENDATION SEE BELOW Normal [facility] Comment on above: Result Comment: ADA RECOMMENDED LIMIT 4.0 - 6.0 ADA THERAPEUTIC TARGET < 7.0 ACTION SUGGESTED > 7.0 Performed By: #### A 1C ####[facility] [address] [address]Dr. Khadra Pascual Glucose [Mass/Vol] 117 mg/dL Normal [facility] Comment on above: Performed By: #### A 1C ####[facility] [address] [address]Dr. Khadra Pascual HbA1c (Bld) [Mass fraction] 5.7 % Normal 4.5-6.2 [facility] Comment on above: Performed By: #### A 1C ####[facility] [address] [address]Dr. Khadra Pascual PROF 14(COMP METB)on 023 Albumin [Mass/Vol] 3.9 g/dL Normal 3.4-5.0 [facility] Comment on above: Performed By: #### T SH, T7, CRP, CMP #### [facility] [address] [address] [address] Khadra Pascual Albumin/Globulin [Mass ratio] 1.0 {ratio} Normal [facility] Comment on above: Performed By: #### T SH, T7, CRP, CMP #### [facility] [address] [address] [address] Khadra Pascual ALP [Catalytic activity/Vol] 176 U/L Critically high 46-116 [facility] Comment on above: Performed By: #### T SH, T7, CRP, CMP #### [facility] [address] [address] [address] Khadra Pascual ALT [Catalytic activity/Vol] 23 U/L Normal 14-59 [facility] Comment on above: Performed By: #### T SH, T7, CRP, CMP #### [facility] [address] [address] [address] Khadra Pascual Anion gap [Moles/Vol] 10.5 mmol/L Normal [facility] Comment on above: Performed By: #### T SH, T7, CRP, CMP #### [facility] [address] [address] [address] Khadra Pascual AST [Catalytic activity/Vol] 17 U/L Normal 15-37 [facility] Comment on above: Performed By: #### T SH, T7, CRP, CMP #### [facility] [address] [address] [address] Khadra Pascual Bilirubin [Mass/Vol] 0.2 mg/dL Normal 0.2-1.0 [facility] Comment on above: Performed By: #### T SH, T7, CRP, CMP #### [facility] [address] [address] [address] Khadra Pascual Calcium [Mass/Vol] 9.6 mg/dL Normal 8.5-10.1 [facility] Comment on above: Performed By: #### T SH, T7, CRP, CMP #### [facility] [address] [address] [address] Khadra Pascual Chloride [Moles/Vol] 102 mmol/L Normal 98-107 [facility] Comment on above: Performed By: #### T SH, T7, CRP, CMP #### [facility] [address] [place] [address] Dr. Khadra Pascual CO2 [Moles/Vol] 28.5 mmol/L Normal 21.0-32.0 [facility] Comment on above: Performed By: #### T SH, T7, CRP, CMP #### [facility] [address] [place] [address] Dr. Khadra Pascual Creatinine [Mass/Vol] 0.70 mg/dL Normal 0.55-1.02 [facility] Comment on above: Performed By: #### T SH, T7, CRP, CMP #### [facility] [address] [place] [address] Dr. Khadra Pascual EGFR-AF EQUATORIAL GUINEAN >60 Normal >=60 [facility] Comment on above: Performed By: #### T SH, T7, CRP, CMP #### [facility] [address] [place] [address] Dr. Khadra Pascual EGFR-NON AF EQUATORIAL GUINEAN >60 Normal >=60 [facility] Comment on above: Performed By: #### T SH, T7, CRP, CMP #### [facility] [address] [address] [address] Khadra Pascual Globulin (S) [Mass/Vol] 4.0 g/dL Normal [facility] Comment on above: Performed By: #### T SH, T7, CRP, CMP #### [facility] [address] [place] [address] Dr. Khadra Pascual Glucose [Mass/Vol] 88 mg/dL Normal 74-106 [facility] Comment on above: Performed By: #### T SH, T7, CRP, CMP #### [facility] [address] [address] [address] Khadra Pascual Potassium [Moles/Vol] 4.0 mmol/L Normal 3.5-5.1 [facility] Comment on above: Performed By: #### T SH, T7, CRP, CMP #### [facility] [address] [address] [address] Khadra Pascual Protein [Mass/Vol] 7.9 g/dL Normal 6.4-8.2 [facility] Comment on above: Performed By: #### T SH, T7, CRP, CMP #### [facility] [address] [address] [address] Khadra Pascual Sodium [Moles/Vol] 137 mmol/L Normal 136-145 [facility] Comment on above: Performed By: #### T SH, T7, CRP, CMP #### [facility] [address] [address] [address] Khadra Pascual Urea nitrogen [Mass/Vol] 8.0 mg/dL Normal 7.0-18.0 [facility] Comment on above: Performed By: #### T SH, T7, CRP, CMP #### [facility] [address] [place] [address] Dr. Khadra Pascual Urea nitrogen/Creatinine [Mass ratio] 11.4 mg/mg Normal [facility] Comment on above: Performed By: #### T SH, T7, CRP, CMP #### [facility] [address] [address] [address] Khadra Pascual [facility] 2022 SED RATE 23 mm/hr Normal <=30 [facility] Comment on above: Performed By: #### S EDR ####[facility] [address] [address]Dr. Khadra Pascual TSHon 02-14-2023 TSH 0.826 uIU/mL Normal 0.358-3.740 [facility] Comment on above: Performed By: #### T SH, T7, CRP, CMP #### [facility] [address] [place], [place] [address] Dr. Khadra Pascual VIT B12 AND FOLATEon 023 Cobalamin (Vitamin B12) [Mass/Vol] 291.0 pg/mL Normal 193.0-986.0 [facility] Comment on above: Performed By: #### B 12FOL #### [facility] [address] [address] [address] Khadra Pascual FOLATE 14.50 ng/mL Normal 8.60-58.90 [facility] Comment on above: Performed By: #### B 12FOL #### [facility] [address] [address] [address] LUNG CANCER SCREENINGon 0 12-08-2022 CT LUNG CANCER SCREENING EXAMINATION: CT LUNG CANCER SCREENING HISTORY: Nicotine dependence COMPARISON: No relevant comparison available. TECHNIQUE: Axial, Coronal, and Sagittal images were created without the administration of IV contrast material. Dose reduction techniques were achieved by using automated exposure control and/or adjustment of mA and/or kV according to patient size and/or use of iterative reconstruction technique. FINDINGS: LUNGS: Mild discoid atelectasis or scarring within lung bases. No suspicious nodules or acute infiltrates. PLEURA: No mass, effusion, or pneumothorax. VASCULATURE: No abnormality. SHIELA: No mass or pathologic adenopathy. MEDIASTINUM: No mass or pathologic adenopathy. CARDIAC: No enlargement, pericardial thickening, or significant calcification. AORTA: No aneurysm or dissection. CHEST WALL: No mass or axillary adenopathy BONES: No bone lesion or fracture. LIMITED ABDOMEN: No suspicious findings. Limited images of the upper abdomen. OTHER: Negative. IMPRESSION: 1. Lung-RADS Category 1 Negative. No nodules and definitely benign nodules. Continue annual screening with LDCT in 12 months. Electronically authenticated by: ELSY MACHADO Date: 2022-12-08 09:32 Normal [facility] Ambulatory Visit Summaryon 1 Ambulatory Visit Summary LIVIA JACOBO :1960 Visit Date:09/13/2022 Ambulatory Visit Instructions Your Diagnosis Hypertensive urgency HTN (hypertension), benign Primary insomnia Anxiety and depression RLS (restless legs syndrome) BMI 32.0-32.9,adult Current smoker Screening mammogram for breast cancer Post-menopause Your Care Team Attending Physician - Dorie Luis MD. Primary Care Physician - Dorie uLis MD. This Is Your Medications List amlodipine (amLODIPine 5 mg Tab) losartan (losartan 100 mg Tab) ropinirole (ropinirole 1 mg Tab) Contact prescribing physician if questions or concerns albuterol (Albuterol (Eqv-ProAir HFA) 90 mcg/inh inhalation aerosol) alprazolam (alprazolam 1 mg Tab) fluticasone/umeclid inium/vilanterol (Trelegy Ellipta 100 mcg-62.5 mcg-25 mcg inhalation powder) quetiapine (SEROquel 100 mg Tab) trazodone (traZODONE 100 mg Tab) venlafaxine (Effexor XR 150 mg Cap-ER) Discharge Vitals Heart Rate (Peripheral) 90 Blood Pressure 204/108 Height 156 cm Height 61 in Weight 78.7 kg Weight 173.14 lb BMI 32.34 What to do next Scheduled Follow-Up Appointments Tuesday 4:20 PM EST With: Dorie Luis MD Where: [facility] [place] Invalid Interpretation Code HTN (hypertension), benign [facility] Patient Educationon 09-13-20 22 Patient Education Cardiovascular Hypertension, Adult High blood pressure (hypertension) is when the force of blood pumping through the arteries is too strong. The arteries are the blood vessels that carry blood from the heart throughout the body. Hypertension forces the heart to work harder to pump blood and may cause arteries to become narrow or stiff. Untreated or uncontrolled hypertension can cause a heart attack, heart failure, a stroke, kidney disease, and other problems. A blood pressure reading consists of a higher number over a lower number. Ideally, your blood pressure should be below 120/80. The first ( top ) number is called the systolic pressure. It is a measure of the pressure in your arteries as your heart beats. The second ( bottom ) number is called the diastolic pressure. It is a measure of the pressure in your arteries as the heart relaxes. What are the causes? The exact cause of this condition is not known. There are some conditions that result in or are related to high blood pressure. What increases the risk? Some risk factors for high blood pressure are under your control. The following factors may make you more likely to develop this condition: ? Smoking. ? Having type 2 diabetes mellitus, high cholesterol, or both. ? Not getting enough exercise or physical activity. ? Being overweight. ? Having too much fat, sugar, calories, or salt (sodium) in your diet. ? Drinking too much alcohol. Some risk factors for high blood pressure may be difficult or impossible to change. Some of these factors include: ? Having chronic kidney disease. ? Having a family history of high blood pressure. ? Age. Risk increases with age. ? Race. You may be at higher risk if you are . ? Gender. Men are at higher risk than women before age 45. After age 65, women are at higher risk than men. ? Having obstructive sleep apnea. ? Stress. What are the signs or symptoms? High blood pressure may not cause symptoms. Very high blood pressure (hypertensive crisis) may cause: ? Headache. ? Anxiety. ? Shortness of breath. ? Nosebleed. ? Nausea and vomiting. ? Vision changes. ? Severe chest pain. ? Seizures. How is this diagnosed? This condition is diagnosed by measuring your blood pressure while you are seated, with your arm resting on a flat surface, your legs uncrossed, and your feet flat on the floor. The cuff of the blood pressure monitor will be placed directly against the skin of your upper arm at the level of your heart. It should be measured at least twice using the same arm. Certain conditions can cause a difference in blood pressure between your right and left arms. Certain factors can cause blood pressure readings to be lower or higher than normal for a short period of time: ? When your blood pressure is higher when you are in a health care provider's office than when you are at home, this is called white coat hypertension. Most people with this condition do not need medicines. ? When your blood pressure is higher at home than when you are in a health care provider's office, this is called masked hypertension. Most people with this condition may need medicines to control blood pressure. If you have a high blood pressure reading during one visit or you have normal blood pressure with other risk factors, you may be asked to: ? Return on a different day to have your blood pressure checked again. ? Monitor your blood pressure at home for 1 week or longer. If you are diagnosed with hypertension, you may have other blood or imaging tests to help your health care provider understand your overall risk for other conditions. How is this treated? This condition is treated by making healthy lifestyle changes, such as eating healthy foods, exercising more, and reducing your alcohol intake. Your health care provider may prescribe medicine if lifestyle changes are not enough to get your blood pressure under control, and if: ? Your systolic blood pressure is above 130. ? Your diastolic blood pressure is above 80. Your personal target blood pressure may vary depending on your medical conditions, your age, and other factors. Follow these instructions at home: Eating and drinking ? Eat a diet that is high in fiber and potassium, and low in sodium, added sugar, and fat. An example eating plan is called the DASH (Dietary Approaches to Stop Hypertension) diet. To eat this way: ? Eat plenty of fresh fruits and vegetables. Try to fill one half of your plate at each meal with fruits and vegetables. ? Eat whole grains, such as whole-wheat pasta, brown rice, or whole-grain bread. Fill about one fourth of your plate with whole grains. ? Eat or drink low-fat dairy products, such as skim milk or low-fat yogurt. ? Avoid fatty cuts of meat, processed or cured meats, and poultry with skin. Fill about one fourth of your plate with lean proteins, such as fish, chicken without skin, beans, eggs, or tofu. ? Avoi (more content not included)... Normal [facility] GLUCOSE BLOODon 09-07-2022 Glucose [Mass/Vol] 103 mg/dL Normal 74-106 [facility] Comment on above: Performed By: #### G BLANCA, LIPID ####[facility] [address] [id number] Pascual LIPID PROFILEon 09-07-2022 CHOL-HDL RATIO NORM SEE BELOW Normal [facility] Comment on above: Result Comment: 3.3 - 4.4 LOW RISK 4.4 - 7.1 AVERAGE RISK 7.1 - 11.0 MODERATE RISK >11.0 HIGH RISK Performed By: #### G BLANCA, LIPID ####[facility] [address] [place], [place] [address]WpPascale Pascual Cholesterol [Mass/Vol] 163 mg/dL Normal <=200 [facility] Comment on above: Performed By: #### G BLANCA, LIPID ####[facility] [address] [id number]. Khadra Pascual Cholesterol in HDL [Mass/Vol] 50 mg/dL Normal 40-60 [facility] Comment on above: Performed By: #### G BLANCA, LIPID ####[facility] [address] [id number]. Khadra Pascual Cholesterol in LDL [Mass/Vol] 74.8 mg/dL Normal [facility] Comment on above: Performed By: #### G BLANCA, LIPID ####[facility] [address] [address]Dr. Khadra Pascual Cholesterol.total/Ch olesterol in HDL [Mass ratio] 3.3 {ratio} Normal [facility] Comment on above: Performed By: #### G BLANCA, LIPID ####[facility] [address] [address]Dr. Khadra Pascual HDL NORMAL > or = 60 mg/dl - LOW CARDIOVASCULAR RISK <40 mg/dl - HIGH CARDIOVASCULAR RISK Normal [facility] Comment on above: Performed By: #### G BLANCA, LIPID ####[facility] [id number] [id number]. Khadra Pascual LDL CALC NORMAL SEE BELOW Normal [facility] Comment on above: Result Comment: <100 mg/dl OPTIMAL 100 - 129 mg/dl NEAR OR ABOVE OPTIMAL 130 - 159 mg/dl BORDERLINE HIGH 160 - 189 mg/dl HIGH >190 mg/dl VERY HIGH Performed By: #### G BLANCA, LIPID ####[facility] [address] [id number]. Sherlynusha Pascual Triglyceride [Mass/Vol] 191 mg/dL Critically high <=150 [facility] Comment on above: Performed By: #### G BLANCA, LIPID ####[facility] [address] [id number]. Sherlynusha Pascual VLDL CALC 38.2 mg/dL Normal [facility] Comment on above: Performed By: #### G BLANCA, LIPID ####[facility] [address] [place], [place] [address]Hq. Khadra Pascual XR WRIST RT MIN 3 Von 2021 XR WRIST RT MIN 3 V IMAGES REVIEWED: XR WRIST RT MIN 3 V COMPARISON: None available. CLINICAL INDICATION: Dog bite of wrist FINDINGS/IMPRESSION : 1. No radiopaque foreign bodies in the soft tissues of the right wrist. 2. No evidence of acute osseous abnormality. Electronically authenticated by: PHILL WEEKS Date: 2022-05-19 14:05 Normal [facility] Vital Signs Date Time Vital Sign Value Performing Clinician Hugh brandon 08-13-2024 18:00-0400 Hourly Rounding [facility] 08-13-2024 18:00-0400 Promise to Return [facility] 08-13-2024 17:44-0400 Hourly Rounding [facility] 08-13-2024 17:44-0400 Promise to Return [facility] 08-13-2024 17:13-0400 Heart rate 70 /min [facility] 08-13-2024 17:13-0400 Respiratory rate 18 /min [facility] 08-13-2024 17:13-0400 SaO2% (BldA) [Mass fraction] 99 % [facility] 08-13-2024 17:06-0400 Blood Pressure Location [facility] 08-13-2024 17:06-0400 Body temperature 97.34 [degF] [facility] 08-13-2024 17:06-0400 Diastolic blood pressure 78 mm[Hg] [facility] 08-13-2024 17:06-0400 Heart rate 78 /min [facility] 08-13-2024 17:06-0400 SaO2% (BldA) [Mass fraction] 93 % [facility] 08-13-2024 17:06-0400 Systolic blood pressure 128 mm[Hg] [facility] 08-13-2024 17:05-0400 SaO2% (BldA) [Mass fraction] 93 % [facility] 08-13-2024 17:03-0400 Heart rate 75 /min [facility] 08-13-2024 17:03-0400 Respiratory rate 18 /min [facility] 08-13-2024 16:00-0400 Hourly Rounding [facility] 08-13-2024 16:00-0400 Promise to Return [facility] 08-13-2024 14:35-0400 Diastolic blood pressure 74 mm[Hg] [facility] 08-13-2024 14:35-0400 Heart rate 76 /min [facility] 08-13-2024 14:35-0400 Mean blood pressure 91 mm[Hg] [facility] 08-13-2024 14:35-0400 Respiratory rate 19 /min [facility] 08-13-2024 14:35-0400 Systolic blood pressure 126 mm[Hg] [facility] 08-13-2024 13:15-0400 Diastolic blood pressure 62 mm[Hg] [facility] 08-13-2024 13:15-0400 Mean blood pressure 79 mm[Hg] [facility] 08-13-2024 13:15-0400 Respiratory rate 22 /min [facility] 08-13-2024 13:15-0400 Systolic blood pressure 114 mm[Hg] [facility] 08-13-2024 12:13-0400 Mean blood pressure 83 mm[Hg] [facility] 08-13-2024 12:13-0400 Respiratory rate 24 /min [facility] 08-13-2024 08:51-0400 Body temperature 98.6 [degF] [facility] 08-13-2024 08:51-0400 Heart rate 82 /min [facility] 08-13-2024 08:51-0400 Respiratory rate 18 /min [facility] 07-04-2024 13:01-0400 Blood Pressure Location Amilcar Matthews [facility] 07-04-2024 13:01-0400 Diastolic blood pressure 86 mm[Hg] [facility] 07-04-2024 13:01-0400 Heart rate 85 /min [facility] 07-04-2024 13:01-0400 Respiratory rate 16 /min [facility] 07-04-2024 13:01-0400 SaO2% (BldA) [Mass fraction] 93 % [facility] 07-04-2024 13:01-0400 Systolic blood pressure 132 mm[Hg] [facility] 05-30-2024 10:40-0400 Diastolic blood pressure 106 mm[Hg] [facility] 05-30-2024 10:40-0400 Mean blood pressure 128 mm[Hg] [facility] 05-30-2024 10:40-0400 Systolic blood pressure 172 mm[Hg] [facility] 05-30-2024 10:30-0400 Blood Pressure Location [facility]ilcar Matthews [facility] 05-30-2024 10:30-0400 Diastolic blood pressure 110 mm[Hg] [facility] 05-30-2024 10:30-0400 Heart rate 81 /min [facility] 05-30-2024 10:30-0400 Respiratory rate 20 /min [facility] 05-30-2024 10:30-0400 SaO2% (BldA) [Mass fraction] 92 % [facility]ilcar Matthews [facility] 05-30-2024 10:30-0400 Systolic blood pressure 180 mm[Hg] [facility]il[facility] Matthews [facility] 05-16-2024 12:44-0400 Hourly Rounding Mbanefo OJUKWU [facility] 05-16-2024 12:44-0400 Promise to Return Mbanefo OJUKWU [facility] 05-16-2024 11:44-0400 Hourly Rounding Mbanefo OJUKWU [facility] 05-16-2024 11:44-0400 Promise to Return Mbanefo OJUKWU [facility] 05-16-2024 11:00-0400 Body temperature 97.34 [degF] Mbanefo OJUKWU [facility] 05-16-2024 11:00-0400 Diastolic blood pressure 81 mm[Hg] Mbanefo OJUKWU [facility] 05-16-2024 11:00-0400 Heart rate 76 /min Mbanefo OJUKWU [facility] 05-16-2024 11:00-0400 SaO2% (BldA) [Mass fraction] 95 % Mbanefo OJUKWU [facility] 05-16-2024 11:00-0400 Systolic blood pressure 137 mm[Hg] Mbanefo OJUKWU [facility] 05-16-2024 10:44-0400 Hourly Rounding Mbanefo OJUKWU [facility] 05-16-2024 10:44-0400 Promise to Return Mbanefo OJUKWU [facility] 05-16-2024 08:24-0400 SaO2% (BldA) [Mass fraction] 93 % Mbanefo OJUKWU [facility] 05-16-2024 04:23-0400 Heart rate 83 /min Mbanefo OJUKWU [facility] 05-16-2024 04:23-0400 SaO2% (BldA) [Mass fraction] 92 % Mbanefo OJUKWU [facility] 05-16-2024 04:23-0400 Respiratory rate 18 /min Mbanefo OJUKWU [facility] 05-16-2024 04:22-0400 Body temperature 97.7 [degF] Mbanefo OJUKWU [facility] 05-16-2024 04:22-0400 Blood Pressure Location Mbanefo OJUKWU [facility] 05-16-2024 04:22-0400 BP/Pulse Patient Position Mbanefo OJUKWU [facility] 05-16-2024 04:22-0400 Diastolic blood pressure 71 mm[Hg] Mbanefo OJUKWU [facility] 05-16-2024 04:22-0400 Mean blood pressure 83 mm[Hg] Mbanefo OJUKWU [facility] 05-16-2024 04:22-0400 Systolic blood pressure 108 mm[Hg] Mbanefo OJUKWU [facility] 05-16-2024 00:50-0400 Blood Pressure Location Mbanefo OJUKWU [facility] 05-16-2024 00:50-0400 Body temperature 97.52 [degF] Mbanefo OJUKWU [facility] 05-16-2024 00:50-0400 Diastolic blood pressure 77 mm[Hg] Mbanefo OJUKWU [facility] 05-16-2024 00:50-0400 Heart rate 101 /min Mbanefo OJUKWU [facility] 05-16-2024 00:50-0400 Mean blood pressure 97 mm[Hg] Mbanefo OJUKWU [facility] 05-16-2024 00:50-0400 Respiratory rate 16 /min Mbanefo OJUKWU [facility] 05-16-2024 00:50-0400 Systolic blood pressure 136 mm[Hg] Mbanefo OJUKWU [facility] 05-15-2024 19:46-0400 Mean blood pressure 113 mm[Hg] Mbanefo OJUKWU [facility] 05-15-2024 19:46-0400 Body temperature 98.6 [degF] Mbanefo OJUKWU [facility] 05-15-2024 19:00-0400 Respiratory rate 18 /min Mbanefo OJUKWU [facility] 05-15-2024 17:00-0400 Heart rate 91 /min Mbanefo OJUKWU [facility] 05-15-2024 17:00-0400 Mean blood pressure 120 mm[Hg] Mbanefo OJUKWU [facility] 05-15-2024 16:14-0400 Body temperature 97.88 [degF] Mbanefo OJUKWU [facility] 05-15-2024 16:14-0400 Heart rate 78 /min Mbanefo OJUKWU [facility] 05-15-2024 15:46-0400 Mean blood pressure 128 mm[Hg] Mbanefo OJUKWU [facility] 05-15-2024 13:17-0400 Heart rate 78 /min Mbanefo OJUKWU [facility] 01-06-2024 13:26-0500 Diastolic blood pressure 82 mm[Hg] Tiffany Christofferson [facility] 01-06-2024 13:26-0500 Heart rate 82 /min Tiffany Christofferson [facility] 01-06-2024 13:26-0500 SaO2% (BldA) [Mass fraction] 92 % Tiffany Christofferson [facility] 01-06-2024 13:26-0500 Systolic blood pressure 142 mm[Hg] Tiffany Christofferson [facility] 12-01-2023 10:59-0500 Blood Pressure Location Tiffany Christofferson [facility] 12-01-2023 10:59-0500 Diastolic blood pressure 76 mm[Hg] Tiffany Christofferson [facility] 12-01-2023 10:59-0500 Heart rate 88 /min Tiffany Jansen [facility] 12-01-2023 10:59-0500 SaO2% (BldA) [Mass fraction] 95 % Tiffany Jansen [facility] 12-01-2023 10:59-0500 Systolic blood pressure 120 mm[Hg] Tiffany Sheila [facility] 10-26-2023 11:15-0500 Body height 157.5 cm Bandar Castrejon MD Work Phone: [facility] 10-26-2023 11:15-0500 Body mass index (BMI) [Ratio] 29.15 kg/m2 Bandar Castrejon MD Work Phone: [facility] 10-26-2023 11:15-0500 Body weight 72.3 kg Bandar Castrejno MD Work Phone: [facility] 10-26-2023 11:15-0500 SaO2% (BldA) [Mass fraction] 99 % Bandar Castrejon MD Work Phone: [facility] 10-26-2023 10:56-0500 Body temperature 36 [degF] Bandar Castrejon MD Work Phone: [facility] 10-26-2023 10:56-0500 Diastolic blood pressure 73 mm[Hg] Bandar Castrejon MD Work Phone: [facility] 10-26-2023 10:56-0500 Heart rate 75 /min Bandar Castrejon MD Work Phone: [facility] 10-26-2023 10:56-0500 Respiratory rate 18 /min Bandar Castrejon MD Work Phone: [facility] 10-26-2023 10:56-0500 Systolic blood pressure 121 mm[Hg] Bandar Castrejon MD Work Phone: [facility] 09-07-2023 12:08-0400 Diastolic blood pressure 73 mm[Hg] Tiffany Jansen MD Work Phone: [facility] 09-07-2023 12:08-0400 Heart rate 85 /min Tiffany Jansen MD Work Phone: [facility] 09-07-2023 12:08-0400 Respiratory rate 18 /min Tiffany Jansen MD Work Phone: [facility] 09-07-2023 12:08-0400 SaO2% (BldA) [Mass fraction] 97 % Tiffany Jansen MD Work Phone: [facility] 09-07-2023 12:08-0400 Systolic blood pressure 150 mm[Hg] Tiffany Jansen MD Work Phone: [facility] 09-07-2023 08:13-0400 Body height 154.9 cm Tiffany Jansen MD Work Phone: [facility] 09-07-2023 08:13-0400 Body mass index (BMI) [Ratio] 29.95 kg/m2 Tiffany Jansen MD Work Phone: [facility] 09-07-2023 08:13-0400 Body temperature 97.5 [degF] Tiffany Jansen MD Work Phone: [facility] 09-07-2023 08:13-0400 Body weight 71.9 kg Tiffany Jansen MD Work Phone: [facility] 09-02-2023 13:33-0400 Hourly Rounding Ronobir HOMA [facility] 09-02-2023 13:33-0400 Promise to Return Ronobir HOMA [facility] 09-02-2023 12:40-0400 Heart rate 90 /min Ronobir HOMA [facility] 09-02-2023 12:40-0400 Respiratory rate 18 /min Ronobir HOMA [facility] 09-02-2023 12:40-0400 SaO2% (BldA) [Mass fraction] 93 % Ronobir HOMA [facility] 09-02-2023 12:27-0400 Heart rate 90 /min Ronobir HOMA [facility] 09-02-2023 12:21-0400 Hourly Rounding Ronobir HOMA [facility] 09-02-2023 12:21-0400 Promise to Return Ronobir HOMA [facility] 09-02-2023 11:24-0400 Heart rate 90 /min Ronobir HOMA [facility] 09-02-2023 11:24-0400 SaO2% (BldA) [Mass fraction] 91 % Ronobir HOMA [facility] 09-02-2023 11:24-0400 Body temperature 97.88 [degF] Ronobir HOMA [facility] 09-02-2023 11:24-0400 Diastolic blood pressure 69 mm[Hg] Ronobir HOMA [facility] 09-02-2023 11:24-0400 Mean blood pressure 80 mm[Hg] Ronobir HOMA [facility] 09-02-2023 11:24-0400 Systolic blood pressure 101 mm[Hg] Ronobir HOMA [facility] 09-02-2023 11:07-0400 Hourly Rounding Ronobir HOMA [facility] 09-02-2023 11:07-0400 Promise to Return Ronobir HOMA [facility] 09-02-2023 08:25-0400 Heart rate 78 /min Ronobir HOMA [facility] 09-02-2023 08:25-0400 Respiratory rate 18 /min Ronobir HOMA [facility] 09-02-2023 08:25-0400 SaO2% (BldA) [Mass fraction] 95 % Ronobir HOMA [facility] 09-02-2023 08:15-0400 Respiratory rate 18 /min Ronobir HOMA [facility] 09-02-2023 07:39-0400 Diastolic blood pressure 77 mm[Hg] Ronobir HOMA [facility] 09-02-2023 07:39-0400 Mean blood pressure 91 mm[Hg] Ronobir HOMA [facility] 09-02-2023 07:39-0400 Systolic blood pressure 121 mm[Hg] Ronobir HOMA [facility] 09-02-2023 07:37-0400 Body temperature 97.34 [degF] Ronobir HOMA [facility] 09-02-2023 04:00-0400 Blood Pressure Location Ronobir HOMA [facility] 09-02-2023 04:00-0400 Diastolic blood pressure 64 mm[Hg] Ronobir HOMA [facility] 09-02-2023 04:00-0400 Systolic blood pressure 105 mm[Hg] Ronobir HOMA [facility] 09-01-2023 21:57-0400 Blood Pressure Location Ronobir HOMA [facility] 09-01-2023 21:57-0400 Body temperature 97.52 [degF] Ronobir HOMA [facility] 09-01-2023 21:57-0400 Heart rate 82 /min Ronobir HOMA [facility] 09-01-2023 21:25-0400 Mean blood pressure 68 mm[Hg] Ronobir HOMA [facility] 09-01-2023 21:25-0400 Respiratory rate 20 /min Ronobir HOMA [facility] 09-01-2023 20:25-0400 Mean blood pressure 68 mm[Hg] Ronobir HOMA [facility] 09-01-2023 20:25-0400 Respiratory rate 17 /min Ronobir HOMA [facility] 09-01-2023 19:12-0400 Mean blood pressure 84 mm[Hg] Ronobir HOMA [facility] 09-01-2023 19:12-0400 Respiratory rate 16 /min Ronobir HOMA [facility] 09-01-2023 18:58-0400 Body temperature 98.24 [degF] Ronobir HOMA [facility] 09-01-2023 18:58-0400 Heart rate 95 /min Ronobir HOMA [facility] 09-01-2023 13:59-0400 Diastolic blood pressure 72 mm[Hg] Tiffany Schmidterson [facility] 09-01-2023 13:59-0400 Heart rate 89 /min Tiffany Jansen [facility] 09-01-2023 13:59-0400 SaO2% (BldA) [Mass fraction] 95 % Tiffany Jansen [facility] 09-01-2023 13:59-0400 Systolic blood pressure 118 mm[Hg] Tiffany Jansen [facility] 08-08-2023 16:00-0400 Diastolic blood pressure 95 mm[Hg] Lawrence Elise [facility] 08-08-2023 16:00-0400 Heart rate 87 /min Lawrence Sharmae [facility] 08-08-2023 16:00-0400 Mean blood pressure 115 mm[Hg] Lawrence Arik [facility] 08-08-2023 16:00-0400 Respiratory rate 15 /min Lawrence Sharmae [facility] 08-08-2023 16:00-0400 SaO2% (BldA) [Mass fraction] 96 % Lawrence Arik [facility] 08-08-2023 16:00-0400 Systolic blood pressure 154 mm[Hg] Lawrence Arik [facility] 08-08-2023 15:00-0400 Diastolic blood pressure 96 mm[Hg] Lawrence Sharmae [facility] 08-08-2023 15:00-0400 Heart rate 90 /min Lawrence Arik [facility] 08-08-2023 15:00-0400 Respiratory rate 13 /min Lawrence Sharmae [facility] 08-08-2023 15:00-0400 SaO2% (BldA) [Mass fraction] 95 % Lawrence Sharmae [facility] 08-08-2023 15:00-0400 Systolic blood pressure 152 mm[Hg] Lawrence Elise [facility] 08-08-2023 14:27-0400 Body temperature 98.42 [degF] Lawrence Elise [facility] 08-08-2023 14:27-0400 Diastolic blood pressure 86 mm[Hg] Lawrence Elise [facility] 08-08-2023 14:27-0400 Heart rate 95 /min Lawrence Elise [facility] 08-08-2023 14:27-0400 Respiratory rate 20 /min Lawrence Elise [facility] 08-08-2023 14:27-0400 SaO2% (BldA) [Mass fraction] 94 % Lawrence Elise [facility] 08-08-2023 14:27-0400 Systolic blood pressure 130 mm[Hg] Lawrence Elise [facility] 07-21-2023 14:13-0400 Diastolic blood pressure 78 mm[Hg] Tiffany Sheila [facility] 07-21-2023 14:13-0400 Heart rate 74 /min Tiffany Sheila [facility] 07-21-2023 14:13-0400 SaO2% (BldA) [Mass fraction] 96 % Tiffany Sheila [facility] 07-21-2023 14:13-0400 Systolic blood pressure 118 mm[Hg] Tiffany Christofferson [facility] 07-10-2023 10:24-0400 Hourly Rounding Brnuo CRUZ [facility] 07-10-2023 10:24-0400 Promise to Return Brunoserenity CRUZ [facility] 07-10-2023 09:00-0400 Hourly Rounding Brunoserenity HANSONSLIN [facility] 07-10-2023 09:00-0400 Promise to Return Brunoserenity HANSONSLIN [facility] 07-10-2023 08:13-0400 SaO2% (BldA) [Mass fraction] 98 % Bruno ANTHONY [facility] 07-10-2023 07:07-0400 Hourly Rounding Brunoserenity HANSONSLIN [facility] 07-10-2023 07:07-0400 Promise to Return Rbunoserenity HANSONSLIN [facility] 07-10-2023 07:00-0400 Body temperature 98.24 [degF] Bruno ANTHONY [facility] 07-10-2023 07:00-0400 Diastolic blood pressure 73 mm[Hg] Bruno ANTHONY [facility] 07-10-2023 07:00-0400 Heart rate 91 /min Bruno ANTHONY [facility] 07-10-2023 07:00-0400 Mean blood pressure 85 mm[Hg] Bruno ANTHONY [facility] 07-10-2023 07:00-0400 Respiratory rate 16 /min Bruno ANTHONY [facility] 07-10-2023 07:00-0400 Systolic blood pressure 108 mm[Hg] Bruno ANTHONY [facility] 07-10-2023 04:00-0400 Body temperature 97.16 [degF] Bruno ANTHONY [facility] 07-10-2023 04:00-0400 Diastolic blood pressure 67 mm[Hg] Bruno ANTHONY [facility] 07-10-2023 04:00-0400 Heart rate 86 /min Bruno ANTHONY [facility] 07-10-2023 04:00-0400 Mean blood pressure 84 mm[Hg] Bruno ANTHONY [facility] 07-10-2023 04:00-0400 Respiratory rate 15 /min Bruno ANTHONY [facility] 07-10-2023 04:00-0400 SaO2% (BldA) [Mass fraction] 97 % Bruno ANTHONY [facility] 07-10-2023 04:00-0400 Systolic blood pressure 109 mm[Hg] Bruno ANTHONY [facility] 07-10-2023 03:30-0400 Diastolic blood pressure 55 mm[Hg] Bruno ANTHONY [facility] 07-10-2023 03:30-0400 Heart rate 84 /min Bruno ANTHONY [facility] 07-10-2023 03:30-0400 Mean blood pressure 69 mm[Hg] Bruno ANTHONY [facility] 07-10-2023 03:30-0400 Respiratory rate 17 /min Bruno ANTHONY [facility] 07-10-2023 03:30-0400 Systolic blood pressure 102 mm[Hg] Bruno ANTHONY [facility] 07-10-2023 00:00-0400 Body temperature 97.88 [degF] Bruno ANTOHNY [facility] 07-09-2023 19:56-0400 Heart rate 91 /min Bruno ANTHONY [facility] 07-09-2023 19:56-0400 Respiratory rate 11 /min Bruno HANSONSLIN [facility] 07-09-2023 19:33-0400 Heart rate 93 /min Bruno HANSONSLIN [facility] 07-09-2023 19:33-0400 Respiratory rate 30 /min Bruno MEJIALIN [facility] 06-18-2023 08:06-0400 Body height 154.94 cm MD Dorie Luis Work Phone: [facility] 06-18-2023 08:06-0400 Body weight 74.84 kg MD Dorie Luis Work Phone: [facility] 05-13-2023 09:20-0400 Body height 157.48 cm Jose Cruz Other [facility] [employer] Other 05-13-2023 09:20-0400 Body mass index (BMI) [Ratio] 31.82 kg/m2 Jose Cruz Other [facility] [employer] Other 05-13-2023 09:20-0400 Body weight 78.93 kg Jose Cruz Other [employer] Other 05-13-2023 09:20-0400 Diastolic blood pressure 82 mm[Hg] Jose Cruz Other [employer] Other 05-13-2023 09:20-0400 Systolic blood pressure 130 mm[Hg] Jose Cruz Other [employer] Other 04-14-2023 16:45-0400 Body height 157.48 cm Bordie Chong Other [employer] Other 04-14-2023 16:45-0400 Body mass index (BMI) [Ratio] 32.55 kg/m2 Brodie Chong Other [employer] Other 04-14-2023 16:45-0400 Body weight 80.74 kg Brodie Chong Other [employer] Other 04-14-2023 16:45-0400 Diastolic blood pressure 80 mm[Hg] Brodie Chong Other [employer] Other 04-14-2023 16:45-0400 Systolic blood pressure 140 mm[Hg] Brodie Chong Other [facility] [employer] Other 11-25-2022 15:53-0500 Blood Pressure Location Dorie Luis [facility] 11-25-2022 15:53-0500 Diastolic blood pressure 94 mm[Hg] Dorie Luis [facility] 11-25-2022 15:53-0500 Heart rate 97 /min Dorie Fidencio [facility] 11-25-2022 15:53-0500 SaO2% (BldA) [Mass fraction] 96 % Doriehenry Luis [facility] 11-25-2022 15:53-0500 Systolic blood pressure 134 mm[Hg] Dorie Luis [facility] 10-14-2022 15:41-0500 Blood Pressure Location Dorie Luis [facility] 10-14-2022 15:41-0500 Diastolic blood pressure 84 mm[Hg] Dorie Luis [facility] 10-14-2022 15:41-0500 Heart rate 86 /min Dorie Luis [facility] 10-14-2022 15:41-0500 SaO2% (BldA) [Mass fraction] 92 % Dorie Luis [facility] 10-14-2022 15:41-0500 Systolic blood pressure 118 mm[Hg] Dorie Luis [facility] Encounters Encounter Date Encounter Type Care Provider Facility Start: 06-18-2025 ambulatory MD Dorie Luis Facil ity:[facility] Start: 10-29-2024 ambulatory MD Dorie Luis Facil ity:[facility] Start: 08-14-2024 End: 08-27-2024 ambulatory Dorie Luis Facility:[id number] Start: 08-13-2024 End: 08-13-2024 ambulatory Eligio Lopez Facility:[facility] Start: 08-13-2024 Emergency department patient visit Ainsley Thornton [place] Facility:[facility] Start: 08-13-2024 End: 08-13-2024 Observation Eligio Lopez [facility] Start: 07-04-2024 End: 07-04-2024 ambulatory Amilcar Matthews Facility:[facility] Start: 07-04-2024 End: 07-04-2024 Patient encounter procedure Amilcar Matthews [facility] Start: 06-26-2024 ambulatory MD Dorie Luis Facil ity:[facility] [place] Start: 06-12-2024 End: 06-21-2024 Pre-admission assessment Dorie Luis [facility] Start: 06-12-2024 End: 06-12-2024 ambulatory Dorie Luis Facility: [facility] Start: 05-30-2024 ambulatory Philip Mares acility:[facility] Start: 05-30-2024 End: 05-30-2024 ambulatory Amilcar Milena Byron Facility:[facility] Start: 05-30-2024 End: 05-30-2024 Patient encounter procedure Amilcar Abbott Matthews [facility] Start: 05-29-2024 End: 05-29-2024 ambulatory MD Dorie Luis Facility:[facility] Start: 05-28-2024 End: 05-28-2024 ambulatory MD Dorie Luis Facility: [facility] Start: 05-18-2024 End: 06-18-2024 ambulatory MD Dorie Luis Facility:CD:[id number] Start: 05-15-2024 End: 05-16-2024 ambulatory Mbanefo OJUKWU Facility:[facility] Start: 05-15-2024 Emergency department patient visit Dorie Luis Facility:[facility] Start: 05-15-2024 End: 05-16-2024 Observation Mbanefo OJUKWU [facility] Start: 01-06-2024 End: 01-06-2024 ambulatory Tiffany Jansen Facility:[facility] Start: 01-06-2024 End: 01-06-2024 Patient encounter procedure Tiffany Jansen [facility] Start: 12-01-2023 End: 12-01-2023 ambulatory Tiffany Jansen Facility:[facility] Start: 12-01-2023 End: 12-01-2023 Patient encounter procedure Tiffany Jansen [facility] Start: 11-10-2023 ambulatory Tiffany Jansen Facility:[facility] Start: 10-31-2023 End: 10-31-2023 ambulatory Dorie Luis [facility] Start: 10-26-2023 End: 10-26-2023 ambulatory [facility] Start: 10-26-2023 End: 10-26-2023 Subsequent hospital visit by physician Bandar Castrejon MD Work Phone: [facility] Comment on above: Acute ST elevation m yocardial infarction (STEMI) (CMS/HCC) (Primary Dx); 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 (CMS/HCC) Start: 10-25-2023 End: 10-25-2023 ambulatory Tiffany Jansen Facility:[facility] Start: 10-25-2023 End: 10-25-2023 Patient encounter procedure Tiffany Jansen [facility] Start: 10-24-2023 End: 10-25-2023 ambulatory [facility] Start: 10-24-2023 End: 10-24-2023 Subsequent hospital visit by physician Outside Study [facility] Comment on above: Arrived Start: 10-13-2023 End: 10-13-2023 ambulatory Tiffany Jansen Facility:[facility] Start: 10-11-2023 End: 10-11-2023 ambulatory [facility] Start: 10-11-2023 End: 10-11-2023 Office outpatient new 60 minutes Bandar Castrejon MD Work Phone: [facility] Comment on above: HTN (hypertension), benign (Primary Dx); 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 Comment on above: CAD (coronary artery disease) (Primary Dx); Coronary artery disease; Angina pectoris, unspecified ([facility]/HCC) Start: 09-05-2023 End: 10-03-2023 ambulatory Dorie Luis Facility:CD:[id number] Start: 09-01-2023 End: 09-02-2023 ambulatory Rosa Maria Frausto Facility:[facility] Start: 09-01-2023 End: 09-02-2023 Observation Alec LUTHER [facility] Start: 09-01-2023 End: 09-01-2023 ambulatory Tiffany Jansen Facility:[facility] Start: 09-01-2023 End: 09-01-2023 Patient encounter procedure Tiffany Jasnen [facility] Start: 08-11-2023 End: 08-11-2023 ambulatory Dorie Luis [facility] Start: 08-08-2023 End: 08-08-2023 Emergency department patient visit Lawrence Elise [facility] Start: 07-26-2023 End: 07-26-2023 ambulatory Jose Cruz Other [employer] Other Start: 07-26-2023 Telephone encounter Jose Cruz [facility] [employer] Start: 07-21-2023 End: 07-21-2023 ambulatory Tiffany Jansen Facility:[facility] Start: 07-21-2023 End: 07-21-2023 Patient encounter procedure Tiffany Jansen [facility] Start: 07-13-2023 End: 07-13-2023 ambulatory Dorie Luis Facility:[facility] Start: 07-11-2023 End: 07-27-2023 ambulatory Dorie Luis Facility:CD:[id number] Start: 07-09-2023 End: 07-10-2023 Evaluation and management of inpatient Bruno CRUZ [facility] Start: 06-18-2023 End: 06-18-2023 Patient encounter procedure MD Dorie Luis Work Phone: [facility] [place] Work Phone: Start: 06-18-2023 End: 06-18-2023 ambulatory MD Dorie Luis Work Phone: [facility] Work Phone: Start: 06-17-2023 End: 06-17-2023 ambulatory Sindhu Ennis Other [facility] [employer] Other Start: 06-17-2023 Telephone encounter Sindhu Ennis [employer] Start: 05-13-2023 End: 05-13-2023 ambulatory Jose Cruz Other [employer] Other Start: 05-13-2023 Office outpatient visit 15 minutes Jose Cruz [facility] Start: 05-12-2023 (PROC) PROCEDURE Brodie Roe [facility] Start: 05-12-2023 End: 05-12-2023 ambulatory Brodie Chong Other [facility] [employer] Other Start: 04-14-2023 Office outpatient visit 25 minutes Brodie Chong [facility] Start: 04-14-2023 End: 04-14-2023 ambulatory MD Dorie Luis Work Phone: [facility] Work Phone: Start: 04-14-2023 End: 04-14-2023 Patient encounter procedure MD Dorie Luis Work Phone: [facility] Work Phone: Start: 04-07-2023 Registered Recurring MD Dorie Luis Work Phone: [facility] Start: 03-11-2023 ambulatory DORIE LUIS Facilit y:[facility] Start: 02-14-2023 End: 02-15-2023 ambulatory DORIE LUIS Facility:[facility] Start: 02-08-2023 End: 02-08-2023 ambulatory MD Dorie Luis Work Phone: [facility] Work Phone: Start: 02-08-2023 End: 02-08-2023 Patient encounter procedure MD Dorie Luis Work Phone: [facility] [address] Work Phone: Start: 12-07-2022 End: 12-08-2022 ambulatory DORIE LUIS Facility:[facility] Start: 11-25-2022 End: 11-25-2022 Patient encounter procedure Dorie Luis [facility] Start: 11-19-2022 End: 11-19-2022 Patient encounter procedure Dorie Luis [facility] Start: 10-14-2022 End: 10-14-2022 Patient encounter procedure Dorie Luis [facility] Start: 09-27-2022 ambulatory Dorie Luis Facility :[facility] Start: 09-27-2022 End: 09-27-2022 Patient encounter procedure Dorie Luis [facility] Start: 09-13-2022 End: 09-14-2022 ambulatory Dorie Luis Facility:[facility] Start: 09-07-2022 End: 09-08-2022 ambulatory IRENA NITIN Facility: Start: 08-30-2022 ambulatory Dorie Luis Facility:[facility] Start: 05-19-2022 End: 05-19-[address] RENA STOVALL . Facility: Procedures Date Procedure Procedure Detail Performing Clinician Start: 10-26-2023 ECG 12-LEAD BANDAR VÁSQUEZ SABRINALAZARUS Start: 10-26-2023 DISCHARGE PATIENT BANDAR KISHORLEIGHPARAMJIT Start: 10-26-2023 ACTIVATED CLOTTING T JUAN LOW BANDAR CASTREJON Start: 10-26-2023 CARDIAC CATHETERIZAT ION - CORONARY BANDAR CASTREJON Start: 10-26-2023 Ecg routine ecg w/le ast 12 lds trcg only w/o i&r Bandar Castrejon MD Work Phone: Start: 10-26-2023 Cardiac catheterizat ion study Bandar Castrejon MD Work Phone: Start: 10-26-2023 ECG 12-LEAD BANDAR URIBE Start: 10-26-2023 Basic metabolic 2000 panel - Serum or Plasma BANDAR CASTREJON Start: 10-26-2023 CBC panel - Blood by Automated count BANDAR CASTREJON Start: 10-26-2023 PROTIME-INR BANDAR URIBE Start: 10-26-2023 Ecg routine ecg w/le ast 12 lds trcg only w/o i&r Bandar Castrejon MD Work Phone: Start: 10-26-2023 Basic metabolic pane l calcium total Bandar Castrejon MD Work Phone: Start: 10-24-2023 CATH AND OR EP TEST NON BILL OUTSIDE STUDY ONLY Bandar Castrejon MD Work Phone: Start: 10-05-2023 History of total hysterectomy History of total abdominal hysterectomy Bandar Castrejon MD Work Phone: Start: 09-07-2023 DISCHARGE PATIENT TIFFANY JANSEN Start: 09-07-2023 CARDIAC CATHETERIZAT ION - CORONARY TIFFANY JANSEN Start: 09-07-2023 XR CHEST 2 VIEWS TIFFANY Turner EDELMIRAANURADHA Start: 09-07-2023 Cardiac catheterizat ion study Tiffany Jansen MD Work Phone: Start: 09-07-2023 Basic metabolic 2000 panel - Serum or Plasma TIFFANY JANSEN Start: 09-07-2023 CBC panel - Blood by Automated count TIFFANY JANSEN Start: 09-07-2023 COAGULATION SCREEN TIFFANY JANSEN Start: 09-07-2023 PLACE IN OUTPATIENT/HOSPITAL AMBULATORY SURGERY TIFFANY JANSEN Start: 09-07-2023 ECG 12-LEAD TIFFANY KRUEGER Start: 09-07-2023 Basic metabolic pane l calcium total Tiffany Jansen MD Work Phone: Start: 07-09-2023 Percutaneous coronar y intervention Lawrence Sharmae Start: 06-18-2023 MRI of lumbar spine with contrast MD Dorie Luis Work Phone: Start: 04-14-2023 X-ray of cervical spine MD Dorie Luis Work Phone: Start: 04-14-2023 X-ray of lumbar spin e, six views including bending views MD Dorie Luis Work Phone: Start: 04-14-2023 Dual energy X-ray absorptiometry MD Dorie Luis Work Phone: Start: 02-08-2023 MRI of cervical spin e without contrast MD Dorie Luis Work Phone: Start: 02-08-2023 XR pre/post mri xray MD Dorie Luis Work Phone: Start: 02-08-2023 MRI of head MD Dorie Luis Work Phone: Angioplasty of blood vessel Tiffany Jansen Comment on above: stent placement Gallbladder structur e (body structure) Bruno CRUZ Comment on above: surgery History of total hysterectomy History of total abdominal hysterectomy Bruno CRUZ Hysterectomy Bruno CRUZ Comment on above: Total abdominal hyst erectomy Plan of Treatment Date Care Activity Detail Author Start: 05-19-2032 DTaP/Tdap/Td Vaccine s (2 - Tdap) DTaP/Tdap/Td Vaccines (2 - Tdap) [facility] Start: 12-09-2025 Pneumococcal Vaccine : 65+ Years (3 - PPSV23 or PCV20) Pneumococcal Vaccine: 65+ Years (3 - PPSV23 or PCV20) [facility] Start: 12-09-2025 Pneumococcal Vaccine : Pediatrics (0 to 5 Years) and At-Risk Patients (6 to 64 Years) (3 - PPSV23 or PCV20) Pneumococcal Vaccine: Pediatrics (0 to 5 Years) and At-Risk Patients (6 to 64 Years) (3 - PPSV23 or PCV20) [facility] Start: 10-26-2023 End: 10-26-2023 Admission to same day surgery center 10/26/2023 1:00 PM EST - 10/26/2023 4:00 PM EST Surgery [facility] [address] [place] [address] Bandar Castrejon MD [address] [facility] [address] [id number] PCI MYNOR Stent- PCI CUSTOM FURRIER RCA (08826) [75475 (CPT )] [facility] Comment on above: PCI MYNOR Stent- PCI C TO RCA (44841) [76463 (CPT )] Start: 10-26-2023 Subsequent hospital visit by physician 10/26/2023 1:00 PM EST Hospital Encounter [facility] [address] [place] [address] Bandar Castrejon MD [address] 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 (CMS/HCC) [facility] Comment on above: Coronary artery dise ase involving white mountain coronary artery of white mountain heart with refractory angina pectoris (CMS/HCC) Start: 07-15-2023 Influenza vaccination Influenza Vacc ine (#1) [facility] Start: 2009 Screening for malign ant neoplasm of lung Lung Cancer Screening [facility] Start: 2009 Zoster Vaccines (1 o f 2) Zoster Vaccines (1 of 2) [facility] Start: 1999 Screening for malign ant neoplasm of breast Mammogram [facility] Start: 1980 Screening for malign ant neoplasm of cervix [facility] Start: 1977 Diabetes mellitus screening Diabetes Screening [facility] Start: 1977 Hepatitis C screening Hepatitis C Sc reening [facility] Start: 1960 MMR Vaccines (1 of 1 - Standard series) MMR Vaccines (1 of 1 - Standard series) [facility] Start: 04-17-1960 COVID-19 Vaccine (#1) COVID-19 Vacci ne (#1) [facility] Start: 1959 HIV screening HIV Screening [facility] Start: 1959 Lipid panel Lipid Panel [facility] Start: 1959 Medicare Annual Wellness Visit Medicare Annual Wellness Visit (AWV) [facility] Start: 1959 Screening for malign ant neoplasm of colon [facility] End: 09-07-2023 ECG 12 Lead [facility] Service Area Work Phone: Comment on above: Once for 1 Occurrenc es starting 09/07/2023 until 09/07/2023 ECG 12 Lead ECG 12 Lead ECG Routine 10/26/2023 11:16 AM EST [facility] Service Area Work Phone: ECG 12 Lead ECG 12 Lead ECG Routine 10/26/2023 3:22 PM EST [facility] Work Phone: End: 09-07-2023 Glucose [Mass/volume] in Serum or Plasma POCT Glucose Point of Care Testing - Docked Device Routine Once (Lab) for 1 Occurrences starting 09/07/2023 until 09/07/2023 [facility] Work Phone: Comment on above: Once (Lab) for 1 Occ urrences starting 09/07/2023 until 09/07/2023 End: 09-07-2023 XR Chest 2 Views [facility] Work Phone: Comment on above: Once for 1 Occurrenc es starting 09/07/2023 until 09/07/2023 [facility] Immunizations Immunization Date Immunization Notes Care Provider Edna martino 09-29-2023 influenza, injectable, quadrivalent, preservative free Dorie Luis [facility] 10-14-2022 influenza, injectable, quadrivalent, preservative free Dorie Luis [facility] 10-14-2022 influenza virus vaccine, unspecified formulation Tiffany Jansen MD Work Phone: [facility] Work Phone: 09-15-2021 influenza virus vaccine, unspecified formulation Bruno CRUZ [facility] 12-09-2020 pneumococcal polysaccharide vaccine, 23 valent Dorie Luis [facility] 09-09-2020 influenza virus vaccine, unspecified formulation Bruno CRUZ [facility] 07-15-2014 pneumococcal conjugate vaccine, 13 valent Dorie Luis [facility] NEGATED: Highlighted row has not occurred!09-13-2022 influenza virus vaccine, unspecified formulation Dorie Luis [facility] Payers Date Payer Category Payer Self-pay [id number] 2019 Private Health Insurance [facility] D[facility] [id number] 2019-Present [address] [address] [place] [address] [id number] 2017 Medicaid MEDICAID MEDICAI D [id number] 2017-Present [address] [place] [address] [id number] 2017 Private Health Insurance [id number] 1959 Medicaid [id number] 1959 Private Health Insurance [id number] 1959 Unknown [id number] 2.16.840.1.948295.3.579.2. 727 1959 Unknown [id number] 2.16.840.1.472454.3.579.2. 727 1959 Unknown [id number] 2.16.840.1.776163.3.579.2. 593 1959 Unknown [id number] 2.16.840.1.211675.3.579.2. 593 1959 Unknown [id number] 2.16.840.1.817206.3.579.2. 593 1959 Unknown [id number] 2.16.840.1.777142.3.579.2. 593 1959 Unknown [id number] 2.16.840.1.115749.3.579.2. 593 1959 Unknown [id number] 2.16.840.1.408380.3.579.2. 1244 1959 Unknown [id number] 2.16.840.1.236181.3.579.2. 1245 1959 Unknown [id number] 2.16.840.1.837813.3.579.2. 1247 1959 Unknown [id number] 2.16.840.1.739789.3.579.2. 1959 Unknown [id number] 2.16.840.1.187261.3.579.2. 72 1959 Unknown [id number] 2.16.840.1.598274.3.579.2. 1959 Unknown [id number] 2.16.840.1.418157.3.579.2. 1959 Unknown [id number] 2.16.840.1.433910.3.579.2 1959 Unknown [id number] 2.16.840.1.390480.3.579.2 1959 Unknown [id number] 2.16.840.1.258271.3.579.2 1959 Unknown [id number] 2.16.840.1.783982.3.579.2 1959 Unknown [id number] 2.16.840.1.793189.3.579.2 1959 Unknown [id number] 2.16.840.1.848192.3.579.2 1959 Unknown [id number] 2.16.840.1.612951.3.579.2 1959 Unknown [id number] 2.16.840.1.064681.3.579.2. 1959 Unknown [id number] 2.16.840.1.003504.3.579.2. 1959 Unknown [id number] 2.16.840.1.898371.3.579.2. 1959 Unknown [id number] 2.16.840.1.876522.3.579.29 Unknown [id number] 2.16.840.1.447947.3.579.2. 1959 Unknown [id number] 2.16.840.1.888547.3.579.2 1959 Unknown [id number] 2.16.840.1.064219.3.579.2. 1959 Unknown [id number] 2.16.840.1.355109.3.579.2 1959 Unknown [id number] 2.16.840.1.084489.3.579.2 1959 Unknown [id number] 2.16.840.1.140102.3.579.21245 1959 Unknown [id number] 2.16.840.1.171521.3.579.21245 1959 Unknown [id number] 2.16.840.1.061422.3.579.2 1959 Unknown [id number] 2.16.840.1.884877.3.579.2 1959 Unknown [id number] 2.16.840.1.669335.3.579.2 1959 Unknown [id number] 2.16840.1.566159.3.579.2 1959 Unknown [id number] 2.16.840.1.525852.3.579.2 1959 Unknown [id number] 2.16.840.1.256486.3.579.2 1959 Unknown [id number] 2.16.840.1.281583.3.579.2 1959 Unknown [id number] 2.16.840.1.993984.3.579.2 1959 Unknown [id number] 2.16.840.1.869768.3.579.2. 727 1959 Unknown [id number] 2.16.840.1.572559.3.579.2. 727 1959 Unknown [id number] 2.16.840.1.175041.3.579.2. 727 1959 Unknown [id number] 2.16.840.1.167821.3.579.2. 727 Unknown [id number] 2.16.840.1.101973.3.579.2. 531 Unknown [id number] 2.16.840.1.552306.3.579.2. 531 Social History Date Type Detail Facility Start: 09-13-2022 End: 07-04-2024 Tobacco smoking status Heavy tobacco smoker (finding) [facility] Comment on above: 1/2 pack or more a d ay. Tobacco smoking status Never [facility] Comment on above: 1/2 pack or more a d ay. Start: 09-07-2023 End: 10-26-2023 Sex Assigned At Female [facility] Start: 1960 Sex Assigned At Female [facility] Start: 09-07-2023 Tobacco smoking stat us NHIS Smokes tobacco daily [facility] Work Phone: History of tobacco use Cigarette Smoker [facility] Work Phone: Start: 09-07-2023 End: 10-26-2023 Cigarettes smoked current (pack per day) - Reported 0.5 [facility] Work Phone: Start: 09-07-2023 End: 10-26-2023 Alcohol intake Ex-drinker (finding) [facility] Work Phone: Start: 1960 Sex Assigned At Not on file [facility] Work Phone: Start: 08-28-2023 End: 10-26-2023 Exposure to SARS-CoV-2 (event) Not sure [facility] Work Phone: Medical Equipment Procedure Code Equipment Code Equipment Origin al Text Equipment Identifier Dates [place], Dagmar archibald, Mr Bloom, 3.50 X 38mm - [id number] Start: 10-26-2023 Functional Status Date Assessment Result Facility 08-13-2024 Functional Status No [facility] 08-13-2024 Functional Status [facility] 07-04-2024 Functional Status N/A [facility] 05-30-2024 Functional Status No [facility] 05-15-2024 Functional Status N/A [facility] 05-15-2024 Functional Status [facility] 01-06-2024 Functional Status N/A [facility] 12-01-2023 Functional Status No [facility] 09-01-2023 Functional Status No [facility] 09-01-2023 Functional Status [facility] 09-01-2023 Functional Status No [facility] 08-08-2023 Functional Status N/A [facility] 07-21-2023 Functional Status No [facility] 07-09-2023 Functional Status No [facility] 07-09-2023 Functional Status [facility] 11-25-2022 Functional Status N/A [facility] 10-14-2022 Functional Status N/A [facility] Clinical Notes 09-13-2022 to 08-27-2024 Note Date & Type Note Facility 08-27-2024 Note Discharge Summary Admission and Discharge Information Admitting Physician - Eligio Lopez III, DO Consulting Physician - Sheila POSEY, Tiffany Archibald. [facility] Cardio, XXXX Admitting Diagnoses: 1. Chest pain, 08/13/2024 Discharge Diagnoses 1. Chest pain, Chest pain 2. CAD in white mountain artery, 08/13/2024 3. HTN (hypertension), benign, 08/13/2024 4. COPD (chronic obstructive pulmonary disease), 08/13/2024 5. Anxiety and depression, 08/13/2024 6. Polyneuropathy, 08/13/2024 7. RLS (restless legs syndrome), 08/13/2024 8. Current smoker, 08/13/2024 Livia Jacobo is a 63 year old female with history of CAD, prior STEMI, multivessel PCI, CUSTOM FURRIER of the RCA status post CUSTOM FURRIER intervention, COPD, HTN, anxiety/depression, RLS who follows with Dr Jansen. Presents to ER 08/13/24 with complaints of chest pain. Onset was yesterday. Location is across precordium. Pain is described as pressure. She had associated shortness of breath. The pain dissipated without intervention. This morning she again developed the chest discomfort, substernal chest pressure with radiation up into the left shoulder down the left arm. Again she had associated shortness of breath, some nausea. She took sublingual nitro x 3 without relief. Presented to ER 08/13/2024. EKG on arrival shows sinus rhythm with ST segment abnormalities, similar to previous twelve-lead. Chest x-ray without acute findings. She was hemodynamically stable, no hypoxia, no fevers. Labs without concerning abnormalities. Troponin is negative x 2. She is admitted to hospitalist service for further evaluation of chest discomfort [1] Shortly after admission, patient was seen by her clinical care manager- Tiffany Jansen. Per specialist, not ACS. Patient often has complaints of chest pain at visits, no ECG changes and troponin negative x 3. Patient was deemed acceptable for discharge home with close office follow up. She had no other medical issues keeping her hospitalized, so she was discharged home. Patient was eating/drinking/ambulating at baseline and free of chest pain. Procedure History PCI - Percutaneous coronary intervention (07/09/2023), Angioplasty, Gallbladder, Hysterectomy. Hospital Course Significant Findings (08/13/2024 09:21 EDT XR Chest Single View) IMPRESSION: NO RADIOGRAPHIC EVIDENCE OF ACUTE INTRATHORACIC PROCESS. [2] Procedures and Treatment Provided ECG without ischemic changes Services Consulted Consult to Cardiology - Ordered -- 08/13/24 12:28:00 EDT, CP, CAD, Sheila POSEY, Tiffany Chavarria, Consult and Co-manage, [facility] Physical Exam Vitals & Measurements T: 36.3 ?C(Oral) TMIN: 36.3 ?C(Oral) TMAX: 37 ?C(Oral) HR: 70(Monitored) RR: 18 BP: 128/78 SpO2: 99% HT: 162.56 cm WT: 78.2 kg General: Alert, calm, NAD Eyes: PERRLA. HEENT: Mucous membrane pink, moist, Normal midline tongue. Neck: neck supple, no JVD Lungs: on RA, lungs CTA Cardio: Regular S1, S2, no murmur, no gallop, no rub. Good perfusion Pulses: Normal capillary refill Abdomen: Soft, non-distended, non-tender, + BS x4 Musculoskeletal: No deformity or scoliosis noted. Normal ROM for age. Integumentary: Warm, dry, intact, normal turgor, no rash or concerning lesions noted Extremity: No clubbing, no edema Neurologic: Alert, oriented x 4 follows commands, no obvious focal deficits Mental status: mildly anxious but cooperative, appropriate Tests Performed XR Chest Single View Please visit your patient portal for your results or contact your primary care physician. Discharge Plan Patient Discharge Condition Stable, improved Discharge Disposition Discharged to - Home with family care Discharge Diet Discharge Diet(s): Fat Modified- Low cholesterol, Low Sodium- 2000 mg (08/13/24 17:47:00) Discharge Medication List Prescriptions atorvastatin 80 mg Tab, 80 mg= 1 tab(s), Oral, Daily, 5 refills carvedilol 6.25 mg Tab, 6.25 mg= 1 tab(s), Oral, BID, 3 refills Handicap Placard, 5 years., See Instructions isosorbide mononitrate 30 mg ER Tab, 30 mg= 1 tab(s), Oral, BID, 6 refills losartan 100 mg Tab, 100 mg= 1 tab(s), Oral, Daily, 2 refills nitroglycerin 0.4 mg sublingual Tab, 0.4 mg= 1 tab(s), SubLingual, q5min, PRN, 6 refills prasugrel 10 mg Tab, 10 mg= 1 tab(s), Oral, Daily, 5 refills Ranexa 500 mg Tab-ER, 500 mg= 1 tab(s), Oral, BID, 5 refills ropinirole 1 mg Tab, 1 mg= 1 tab(s), Oral, Daily, 1 refills Home acetaminophen 325 mg Tab, 650 mg= 2 tab(s), Oral, q6hr, PRN Albuterol (Eqv-ProAir HFA) 90 mcg/inh inhalation aerosol, 2 puff(s), Inhalation, q4hr, PRN alprazolam 1 mg Tab, 1 mg= 1 tab(s), Oral, QID, PRN aspirin 81 mg Oral EC Tab, 81 mg= 1 tab(s), Oral, Daily Breztri Aerosphere, 2 puff(s), Inhalation, BID Effexor XR 150 mg Cap-ER, 300 mg= 2 cap(s), Oral, Once a day (at bedtime) Lamictal 25 mg Tab, 75 mg= 3 tab(s), Oral, Once a day (at bedtime) quetiapine 100 mg Tab, 100 mg= 1 tab(s), Oral, Bedtime traZODONE 100 mg Tab, 300 mg= 3 tab(s), Oral, Once a da (more content not included)... [facility] Comment on above: Result Comment: Elec tronically Signed By: Maggie Jansen CNP\.br\Date and Time Signed: 08/24/24 12:38 EDT\.br\Electronically Co-Signed By: Eligio Lopez III, DO\.br\Date and Time Co-Signed: 08/27/24 10:07 EDT 08-13-2024 Note History and Physical Basic Information 63 year old with CAD, COPD presenting with CP Chief Complaint pt has chest pain since yesterday. Pt A&O x 3 with ABC's and MSP's intact. hx of SD and COPD. History of Present Illness Livia Jacobo is a 63 year old female with history of CAD, prior STEMI, multivessel PCI, CUSTOM FURRIER of the RCA status post CUSTOM FURRIER intervention, COPD, HTN, anxiety/depression, RLS who follows with Dr Jansen. Presents to ER 08/13/24 with complaints of chest pain. Onset was yesterday. Location is across precordium. Pain is described as pressure. She had associated shortness of breath. The pain dissipated without intervention. This morning she again developed the chest discomfort, substernal chest pressure with radiation up into the left shoulder down the left arm. Again she had associated shortness of breath, some nausea. She took sublingual nitro x 3 without relief. Presented to ER 08/13/2024. EKG on arrival shows sinus rhythm with ST segment abnormalities, similar to previous twelve-lead. Chest x-ray without acute findings. She was hemodynamically stable, no hypoxia, no fevers. Labs without concerning abnormalities. Troponin is negative x 2. She is admitted to hospitalist service for further evaluation of chest discomfort. Patient seen in the emergency room. She endorses a lot of recent emotional stressors. Her chest pain is resolved but she is anxious, requesting Xanax. She would like to speak with Dr. Sue. She confirms that she is a full code Review of Systems Constitutional: Negative Eye: Negative. Ear/Nose/Mouth/Throat: Negative. Respiratory: Negative Cardiovascular: Positive chest pain as per HPI. Gastrointestinal: + Nausea Genitourinary: Negative. Hematology/Lymphatics: Negative. Endocrine: Negative. Immunologic: Negative Musculoskeletal: Negative. Integumentary: Negative. Neurologic: Alert and oriented X4. Psychiatric: + Anxiety. Additional ROS info: Except as noted in the above Review of Systems and in the History of Present Illness all other systems have been reviewed and are negative or noncontributory Scoring Taylor Fall Risk Score: 35 (08/13/24) Physical Exam Vitals & Measurements T: 37 ?C(Oral) HR: 89(Monitored) RR: 24 BP: 122/64 SpO2: 94% HT: 154 cm WT: 75.4 kg General: Alert, calm, NAD Head: Normocephalic/atraumatic Eyes: PERRLA. Conjunctivae and sclerae normal, and intact EOM HEENT: Mucous membrane pink, moist, Normal midline tongue. Normal oropharynx, and posterior pharynx without lesions or exudates. Neck: Trachea midline, neck supple, no JVD, no bruit Chest: No chest wall deformity, no chest wall tenderness Lungs: on RA, lungs CTA Cardio: Regular S1, S2, no murmur, no gallop, no rub. Good perfusion Pulses: Normal capillary refill Abdomen: Soft, non-distended, non-tender, + BS x4 Musculoskeletal: No deformity or scoliosis noted. Normal ROM for age. Integumentary: Warm, dry, intact, normal turgor, no rash or concerning lesions noted Extremity: No clubbing, no edema Neurologic: Alert, oriented x 4 follows commands, no obvious focal deficits Mental status: mildly anxious but cooperative, appropriate Lab Results WBC: 4.9 E9/L (08/13/24 09:12:00) RBC: 4.4 E12/L (08/13/24 09:12:00) HGB: 15.3 gm/dL (08/13/24 09:12:00) Hct: 42 % (08/13/24 09:12:00) MCV: 95.1 fL (08/13/24 09:12:00) MCH: 34.7 pg High (08/13/24 09:12:00) MCHC: 36.5 gm/dL High (08/13/24 09:12:00) RDW: 12.6 % (08/13/24 09:12:00) Platelet: 198 E9/L (08/13/24 09:12:00) MPV: 6.5 fL (08/13/24 09:12:00) Neutro Auto: 54 % (08/13/24 09:12:00) Lymph Auto: 31.9 % (08/13/24 09:12:00) Stephens Auto: 10.9 % (08/13/24 09:12:00) Eos Auto: 2.3 % (08/13/24 09:12:00) Basophil Auto: 0.9 % (08/13/24 09:12:00) Neutro Absolute: 2.7 E9/L (08/13/24 09:12:00) Lymph Absolute: 1.6 E9/L (08/13/24 09:12:00) Stephens Absolute: 0.5 E9/L (08/13/24 09:12:00) Eos Absolute: 0.1 E9/L (08/13/24 09:12:00) Basophil Absolute: 0 E9/L (08/13/24 09:12:00) PT: 11.6 second(s) (08/13/24 09:12:00) INR: 1.04 (08/13/24 09:12:00) PTT: 33.2 second(s) (08/13/24 09:12:00) Glucose Lvl: 91 mg/dL (08/13/24 09:12:00) BUN: 12 mg/dL (08/13/24 09:12:00) Creatinine: 0.7 mg/dL (08/13/24 09:12:00) eGFR: 96 mL/min/1.73 m2 (08/13/24 09:12:00) BUN/Creat Ratio: 17 (08/13/24 09:12:00) Sodium Lvl: 137 mmol/L (08/13/24 09:12:00) Potassium Lvl: 3.9 mmol/L (08/13/24 09:12:00) Chloride: 103 mmol/L (08/13/24 09:12:00) CO2: 27 mmol/L (08/13/24 09:12:00) AGAP: 11 mEq/L (08/13/24 09:12:00) Calcium Lvl: 8.9 mg/dL (08/13/24 09:12:00) Troponin HS: 4.7 pg/mL Low (08/13/24 10:12:00) Images (08/13/2024 09:21 EDT XR Chest Single View) IMPRESSION: NO RADIOGRAPHIC EVIDENCE OF ACUTE INTRATHORACIC PROCESS. [1] Assessment/Plan 1. Chest pain, (R07.9: Chest pain, unspecified)Chest pain Patient presenting with chest pain, EKG nonacute and troponin negative x 2. AMI is ruled out. Patient is admitted for further observation -Complete t (more content not included)... [facility] Comment on above: Result Comment: Elec tronically Signed By: Maggie Jansen CNP\.br\Date and Time Signed: 08/13/24 12:42 EDT\.br\Electronically Co-Signed By: Eligio Lopez III, DO.br\Date and Time Co-Signed: 08/13/24 20:54 EDT 08-13-2024 Hospital Discharg e instructions Patient Education 08/13/2024 17:47:45 Nonspecific Chest Pain, Adult, Ybul-if-Sunb Nonspecific Chest Pain Chest pain can be caused by many different conditions. Some causes of chest pain can be life-threatening. These will require treatment right away. Serious causes of chest pain include: Heart attack. A tear in the body's main blood vessel. Redness and swelling (inflammation) around your heart. Blood clot in your lungs. Other causes of chest pain may not be so serious. These include: Heartburn. Anxiety or stress. Damage to bones or muscles in your chest. Lung infections. Chest pain can feel like: Pain or discomfort in your chest. Crushing, pressure, aching, or squeezing pain. Burning or tingling. Dull or sharp pain that is worse when you move, cough, or take a deep breath. Pain or discomfort that is also felt in your back, neck, jaw, shoulder, or arm, or pain that spreads to any of these areas. It is hard to know whether your pain is caused by something that is serious or something that is not so serious. So it is important to see your doctor right away if you have chest pain. Follow these instructions at home: Medicines Take [id number] and prescription medicines only as told by your doctor. If you were prescribed an antibiotic medicine, take it as told by your doctor. Do not stop taking the antibiotic even if you start to feel better. Lifestyle Rest as told by your doctor. Do not use any products that contain nicotine or tobacco, such as cigarettes, e-cigarettes, and chewing tobacco. If you need help quitting, ask your doctor. Do not drink alcohol. Make lifestyle changes as told by your doctor. These may include: ?Getting regular exercise. Ask your doctor what activities are safe for you. ?Eating a heart-healthy diet. A diet and nutrition consultant (dietitian) can help you to learn healthy eating options. ?Staying at a healthy weight. ?Treating diabetes or high blood pressure, if needed. ?Lowering your stress. Activities such as yoga and relaxation techniques can help. General instructions Pay attention to any changes in your symptoms. Tell your doctor about them or any new symptoms. Avoid any activities that cause chest pain. Keep all follow-up visits as told by your doctor. This is important. You may need more testing if your chest pain does not go away. Contact a doctor if: Your chest pain does not go away. You feel depressed. You have a fever. Get help right away if: Your chest pain is worse. You have a cough that gets worse, or you cough up blood. You have very bad (severe) pain in your belly (abdomen). You pass out (faint). You have either of these for no clear reason: ?Sudden chest discomfort. ?Sudden discomfort in your arms, back, neck, or jaw. You have shortness of breath at any time. You suddenly start to sweat, or your skin gets clammy. You feel sick to your stomach (nauseous). You throw up (vomit). You suddenly feel lightheaded or dizzy. You feel very weak or tired. Your heart starts to beat fast, or it feels like it is skipping beats. These symptoms may be an emergency. Do not wait to see if the symptoms will go away. Get medical help right away. Call your local emergency services (911 in the [place] Do not drive yourself to the hospital. Summary Chest pain can be caused by many different conditions. The cause may be serious and need treatment right away. If you have chest pain, see your doctor right away. Follow your doctor's instructions for taking medicines and making lifestyle changes. Keep all follow-up visits as told by your doctor. This includes visits for any further testing if your chest pain does not go away. Be sure to know the signs that show that your condition has become worse. Get help right away if you have these symptoms. This information is not intended to replace advice given to you by your health care provider. Make sure you discuss any questions you have with your health care provider. Document Revised: 09/15/2023 Document Reviewed: 09/15/2023 [employer] Patient Education 2023 T-Quad 22. 08/13/2024 17:47:42 Aspirin and Your Heart Aspirin and Your Heart Aspirin is a medicine that prevents the platelets in your blood from sticking together. Platelets are the cells that your blood uses for clotting. Aspirin can be used to help reduce the risk of blood clots, heart attacks, and other heart-related problems. What are the risks? Daily use of aspirin can cause side effects. Some of these include: Bleeding. Bleeding can be minor or serious. An example of minor bleeding is bleeding from a cut, and the bleeding does not stop. An example of more serious bleeding is stomach bleeding or, rarely, bleeding into the brain. Your risk of bleeding increases if you are also taking NSAIDs, such as ibuprofen. Increased bruising. Upset stomach. An allergic reaction. People who have growths inside the nose (nasal polyps) have an increased risk of developing an aspirin allergy. How to use aspirin to care for your heart Take aspirin only as told by your health care provider. Make sure that you understand how much to take and what form to take. The two forms of aspirin are: ?Kqa-ludadgd-tnoebu.This type of aspirin does not have a coating and is absorbed quickly. This type of aspirin also comes in a chewable form. ?Enteric-coated. This type of aspirin has a coating that releases the medicine very slowly. Enteric-coated aspirin might cause less stomach upset than ukd-gdnxqqv-tcnxvm aspirin. This type of aspirin should not be chewed or crushed. Work with your health care provider to find out whether it is safe and beneficial for you to take aspirin daily. Taking aspirin daily may be helpful if: ?You have had a heart attack or chest pain, or you are at risk for a heart attack. ?You have a condition in which certain heart vessels are blocked (coronary artery disease), and you have had a procedure to treat it. Examples are: ?Open-heart surgery, such as coronary artery bypass surgery (CABG). ?Coronary angioplasty,which is done to widen a blood vessel of your heart. ?Having a small mesh tube, or stent, placed in your coronary artery. ?You have had certain types of stroke or a mini-stroke known as a transient ischemic attack (TIA). ?You have a narrowing of the arteries that supply the limbs (peripheral vascular disease, or PVD). ?You have long-term (chronic) heart rhythm problems, such as atrial fibrillation, and your health care provider thinks aspirin may help. ?You have valve disease, have had a heart valve replacement, or have had surgery on a valve. ?You are considered at increased risk of developing coronary artery disease or PVD. Follow these instructions at home Medicines Take ctvn-lty-eqgimmk and prescription medicines only as told by your health care provider. If you are taking blood thinners: ?Talk with your health care provider before you take any medicines that contain aspirin or NSAIDs, such as ibuprofen. These medicines increase your risk for dangerous bleeding. ?Take your medicine exactly as told, at the same time every day. ?Avoid activities that could cause injury or bruising, and follow instructions about how to prevent falls. ?Wear a medical alert bracelet or carry a card that lists what medicines you take. General instructions Do not drink alcohol if: ?Your health care provider tells you not to drink. ?You are , may be , or are planning to become . If you drink alcohol: ?Limit how much you have to: ?0 1 drink a day for women. ?0 2 drinks a day for men. ?Know how much alcohol is in your drink. In the [place] one drink equals one 12 oz bottle of beer (355 mL), one 5 oz glass of wine (148 mL), or one 1 oz glass of hard liquor (44 mL). Keep all follow-up visits. This is important. Where to find more information The [place] [employer]: www.heart.org The Centers for Disease Control and Prevention: www.cdc.gov Contact a health care provider if: You have unusual bleeding or bruising. You have stomach pain or you feel nauseous. You have ringing in your ears. You have an allergic reaction that causes hives, itchy skin, or swelling of the lips, tongue, or face. Get help right away if: Your bowel movements are bloody, dark red, or black. You vomit or cough up blood. You have blood in your urine. You have a cough, make high-pitched whistling sounds most often heard when you breathe out (wheeze), or feel short of breath. You have chest pain, especially if the pain spreads to your arms, back, neck, or jaw. You have any symptoms of a stroke. BE FAST is an easy way to remember the main warning signs of a stroke: B - Balance. Signs are dizziness, sudden trouble walking, or loss of balance. E - Eyes. Signs are trouble seeing or a sudden change in vision. F - Face. Signs are sudden weakness or numbness of the face, or the face or eyelid drooping on one side. A - Arms. Signs are weakness or numbness in an arm. This happens suddenly and usually on one side of the body. S - Speech. Signs are sudden trouble speaking, slurred speech, or trouble understanding what people say. T - Time. Time to call emergency services. Write down what time symptoms started. You have other signs of a stroke, such as: A sudden, severe headache with no known cause. Confusion. Nausea or vomiting. Seizure. These symptoms may represent a serious problem that is an emergency. Do not wait to see if the symptoms will go away. Get medical help right away. Call your local emergency services (911 in the [place] Do not drive yourself to the hospital. Summary Aspirin use can help reduce the risk of blood clots, heart attacks, and other heart-related problems. Daily use of aspirin can cause side effects. Take aspirin only as told by your health care provider. Make sure that you understand how much to take and what form to take. Your health care provider will help you determine whether it is safe and beneficial for you to take aspirin daily. This information is not intended to replace advice given to you by your health care provider. Make sure you discuss any questions you have with your health care provider. Document Revised: 01/02/2022 Document Reviewed: 01/02/2022 [employer] Patient Education 2023 [employer] Follow Up Care 08/13/2024 08:49:52 With:Amilcar Matthews PA-C Address: [address] [place] [phone] When:1 to 2 weeks With:Fidencio POSEY, Dorie Jean Baptiste [facility], [facility] Address: [address] [place] [address]- When:5 to 7 days [facility] 08-13-2024 Note Consultation Note Chief Complaint chest pains Reason for Consultation Chest pain History of Present Illness 63-year-old female with history of CAD, STEMI, multivessel PCI, CUSTOM FURRIER of the RCA status post PCI for ongoing and recurrent chest pain. Patient continued to have chest pain even after PCI of the RCA. Every visit in the office she has had some degree of chest pain. She comes in now with chest discomfort which feels similar to the chest discomfort she has had at the office previously. I does not feel the same as her STEMI pain. It is more in the center of her chest and feels sharp. It was relieved after 3 nitroglycerin so she decided to come for evaluation. She is currently chest pain-free. Review of Systems Constitutional: no fever, no sweats, no weakness Skin: no rash, no lesions, nobruising/petechiae ENMT: no sore throat, no congestion, no hoarseness Respiratory: no shortness of breath, no cough, no orthopnea, no wheezing Cardiovascular: no chest pain, no palpitations, no edema Gastrointestinal: no nausea, no vomiting, no diarrhea, no GI bleeding Genitourinary: no anuria/oliguria no hematuria Musculoskeletal: no back pain, no trauma Neurologic: no headache, no dizziness, no numbness, no weakness Psychiatric: no sleeping problems, no irritability, no anxiety/depression. Heme/Lymph: no bleeding tendency, no bruising tendency Allergy/Immunologic: no recurrent infections, no impaired immunity Additional ROS info: Except as noted in the above Review of Systems and in the History of Present Illness all other systems have been reviewed and are negative or noncontributory. Physical Exam Vitals & Measurements T: 36.3 ?C(Oral) TMIN: 36.3 ?C(Oral) TMAX: 37 ?C(Oral) HR: 70(Monitored) RR: 18 BP: 128/78 SpO2: 99% HT: 162.56 cm WT: 78.2 kg General: alert, no acute distress Skin: warm, dry intact Head: atraumatic, normocephalic Neck: Trachea midline, no JVD, no bruit Eye: normal conjunctiva, sclera clear ENMT: oral mucosa moist Cardiovascular: regular rate and rhythm, nomurmur normal peripheral perfusion Respiratory: Lungs CTA, respirations non labored Chest wall: no deformity. Gastrointestinal: soft, non distended, no tenderness, no guarding. Back: No tenderness, Normal ROM, Normal alignment. Extremities: no edema, no deformity, no trauma Neurological: oriented x 4, LOC appropriate for agesensation equal & normal bilaterally, speech normal Psychiatric: cooperative, affect appropriate for age, normal judgement, normal psychiatric thoughts. Images EKG: Normal sinus rhythm with diffuse nonspecific ST-T wave changes, ST depression, similar to previous Assessment/Plan 63-year-old female with known CAD, recurrent chest discomfort, multivessel PCI, hypertension, hyperlipidemia, abnormal EKG. She has ruled out for SD with enzymes. Her symptoms were relieved with nitroglycerin and she is currently symptom-free. Would uptitrate antianginals increasing Imdur and see her back as an outpatient in follow-up. Of note she always has some element of chest pain when we see her in the office even after her last PCI. Thank for the consultation 1. Chest pain, (R07.9: Chest pain, unspecified)Chest pain 2. CAD in [place] artery (I25.10: Atherosclerotic heart disease of [place] coronary artery without angina pectoris) 3. HTN (hypertension), benign (I10: Essential (primary) hypertension) 4. COPD (chronic obstructive pulmonary disease) (J44.9: Chronic obstructive pulmonary disease, unspecified) 5. Anxiety and depression (F41.9: Anxiety disorder, unspecified) 6. Polyneuropathy (G62.9: Polyneuropathy, unspecified) 7. RLS (restless legs syndrome) (G25.81: Restless legs syndrome) 8. Current smoker (F17.200: Nicotine dependence, unspecified, uncomplicated) Depression, unspecified (F32.A: Depression, unspecified) Problem List/Past Medical History Ongoing Anxiety and depression Atherosclerosis of aorta COPD (chronic obstructive pulmonary disease) Current smoker Fatigue History of ST elevation myocardial infarction (STEMI) History of total abdominal hysterectomy HTN (hypertension), benign Major depressive disorder, recurrent, mild Polyneuropathy Primary insomnia RLS (restless legs syndrome) Sinus infection Walker as ambulation aid Historical Acute ST elevation myocardial infarction (STEMI) Procedure/Surgical History PCI - Percutaneous coronary intervention (07/09/2023), Angioplasty, Gallbladder, Hysterectomy. Medications Inpatient acetaminophen 325 mg Tab, 650 mg= 2 tab(s), Oral, q6hr, PRN albuterol 0.083% Inh Bettye 3 mL, 2.5 mg= 3 mL, Inhalation, q4hr, PRN alprazolam 1 mg Tab, 1 mg= 1 tab(s), Oral, QID, PRN aspirin 81 mg Oral EC Tab, 81 mg= 1 tab(s), Oral, Daily atorvastatin 40 mg Tab, 80 mg= 2 tab(s), Oral, Daily carvedilol 6.25 mg Tab, 6.25 mg= 1 tab(s), Oral, BID DuoNeb 2.5 mg-0.5 mg/3 mL Soln-Inh, 3 mL, Inhalation, QID Effexor XR 150 mg Cap-ER, 300 mg= 2 cap(s), Oral, Once a day (at bedtime) (more content not included)... [facility] Comment on above: Result Comment: Elec tronically Signed By: Sheila POSEY, Tiffany Chavarria\.br\Date and Time Signed: 08/13/24 18:02 EDT 08-13-2024 Note Patient Education - Text Gastroenterology Nonspecific Chest Pain Chest pain can be caused by many different conditions. Some causes of chest pain can be life-threatening. These will require treatment right away. Serious causes of chest pain include: ? Heart attack. ? A tear in the body's main blood vessel. ? Redness and swelling (inflammation) around your heart. ? Blood clot in your lungs. Other causes of chest pain may not be so serious. These include: ? Heartburn. ? Anxiety or stress. ? Damage to bones or muscles in your chest. ? Lung infections. Chest pain can feel like: ? Pain or discomfort in your chest. ? Crushing, pressure, aching, or squeezing pain. ? Burning or tingling. ? Dull or sharp pain that is worse when you move, cough, or take a deep breath. ? Pain or discomfort that is also felt in your back, neck, jaw, shoulder, or arm, or pain that spreads to any of these areas. It is hard to know whether your pain is caused by something that is serious or something that is not so serious. So it is important to see your doctor right away if you have chest pain. Follow these instructions at home: Medicines ? Take amyn-bdn-vskqkwa and prescription medicines only as told by your doctor. ? If you were prescribed an antibiotic medicine, take it as told by your doctor. Do not stop taking the antibiotic even if you start to feel better. Lifestyle ? Rest as told by your doctor. ? Do not use any products that contain nicotine or tobacco, such as cigarettes, e-cigarettes, and chewing tobacco. If you need help quitting, ask your doctor. ? Do not drink alcohol. ? Make lifestyle changes as told by your doctor. These may include: ? Getting regular exercise. Ask your doctor what activities are safe for you. ? Eating a heart-healthy diet. A diet and nutrition consultant (dietitian) can help you to learn healthy eating options. ? Staying at a healthy weight. ? Treating diabetes or high blood pressure, if needed. ? Lowering your stress. Activities such as yoga and relaxation techniques can help. General instructions ? Pay attention to any changes in your symptoms. Tell your doctor about them or any new symptoms. ? Avoid any activities that cause chest pain. ? Keep all follow-up visits as told by your doctor. This is important. You may need more testing if your chest pain does not go away. Contact a doctor if: ? Your chest pain does not go away. ? You feel depressed. ? You have a fever. Get help right away if: ? Your chest pain is worse. ? You have a cough that gets worse, or you cough up blood. ? You have very bad (severe) pain in your belly (abdomen). ? You pass out (faint). ? You have either of these for no clear reason: ? Sudden chest discomfort. ? Sudden discomfort in your arms, back, neck, or jaw. ? You have shortness of breath at any time. ? You suddenly start to sweat, or your skin gets clammy. ? You feel sick to your stomach (nauseous). ? You throw up (vomit). ? You suddenly feel lightheaded or dizzy. ? You feel very weak or tired. ? Your heart starts to beat fast, or it feels like it is skipping beats. These symptoms may be an emergency. Do not wait to see if the symptoms will go away. Get medical help right away. Call your local emergency services (911 in the [place] Do not drive yourself to the hospital. Summary ? Chest pain can be caused by many different conditions. The cause may be serious and need treatment right away. If you have chest pain, see your doctor right away. ? Follow your doctor's instructions for taking medicines and making lifestyle changes. ? Keep all follow-up visits as told by your doctor. This includes visits for any further testing if your chest pain does not go away. ? Be sure to know the signs that show that your condition has become worse. Get help right away if you have these symptoms. This information is not intended to replace advice given to you by your health care provider. Make sure you discuss any questions you have with your health care provider. Document Revised: 09/15/2023 Document Reviewed: 09/15/2023 [employer] Patient Education ? 2023 [employer] Pharmacology Aspirin and Your Heart Aspirin is a medicine that prevents the platelets in your blood from sticking together. Platelets are the cells that your blood uses for clotting. Aspirin can be used to help reduce the risk of blood clots, heart attacks, and other heart-related problems. What are the risks? Daily use of aspirin can cause side effects. Some of these include: ? Bleeding. Bleeding can be minor or serious. An example of minor bleeding is bleeding from a cut, and the bleeding does not stop. An example of more serious bleeding is stomach bleeding or, rarely, bleeding into the brain. Your risk of bleeding increases if you are also taking NSAIDs, such as ibuprofen. ? Increased bruising. ? Upset stomach. ? An allergic reaction. People who h (more content not included)... [facility] 08-13-2024 Evaluation + Plan note Extrac purvi from: Title:Consult Note Author:Fe Jansen MD Date:08/13/24 63-year-old female with know n CAD, recurrent chest discomfort, multivessel PCI, hypertension, hyperlipidemia, abnormal EKG. She has ruled out for SD with enzymes. Her symptoms were relieved with nitroglycerin and she is currently symptom-free. Would uptitrate antianginals increasing Imdur and see her back as an outpatient in follow-up. Of note she always has some element of chest pain when we see her in the office even after her last PCI. Thank for the consultation 1. Chest pain, (R07.9: Chest pain, unspecified)Chest pain 2. CAD in [place] artery (I25.10: Atherosclerotic heart disease of [place] coronary artery without angina pectoris) 3. HTN (hypertension), benign (I10: Essential (primary) hypertension) 4. COPD (chronic obstructive pulmonary disease) (J44.9: Chronic obstructive pulmonary disease, unspecified) 5. Anxiety and depression (F41.9: Anxiety disorder, unspecified) 6. Polyneuropathy (G62.9: Polyneuropathy, unspecified) 7. RLS (restless legs syndrome) (G25.81: Restless legs syndrome) 8. Current smoker (F17.200: Nicotine dependence, unspecified, uncomplicated) Depression, unspecified (F32.A: Depression, unspecified) Extracted from: Title:Admission H & P Author:Maggie Jansen CNP Date:08/13/24 1. Chest pain, (R07.9: Chest pain, unspecified)Chest pain Patient presenting with chest pain, EKG nonacute and troponin negative x 2. AMI is ruled out. Patient is admitted for further observation -Complete troponin trend -[facility] Cardiology consult for further recommendations 2. CAD in [place] artery (I25.10: Atherosclerotic heart disease of [place] coronary artery without angina pectoris) CAD with prior STEMI, multivessel PCI, CUSTOM FURRIER of the RCA status post CUSTOM FURRIER intervention -She is on good GDMT: Aspirin, Effient, high intensity statin, beta-tamika, ARB, Imdur -[facility] cardiology to see 3. HTN (hypertension), benign (I10: Essential (primary) hypertension) Overall BP is stable, diastolic slightly elevated -> has not taken any meds today -Resume anti-hypertensives 4. COPD (chronic obstructive pulmonary disease) (J44.9: Chronic obstructive pulmonary disease, unspecified) Do not feel this is an acute exacerbation -Resume nebs 5. Anxiety and depression (F41.9: Anxiety disorder, unspecified) Patient endorses increased social stressors/anxiety, suspect this playing role in #1 -Resume psych meds, PRN Xanax 6. Polyneuropathy (G62.9: Polyneuropathy, unspecified) -Resume home meds 7. RLS (restless legs syndrome) (G25.81: Restless legs syndrome) -Resume home meds 8. Current smoker (F17.200: Nicotine dependence, unspecified, uncomplicated) -Nicotine patch Orders: acetaminophen, 650 mg = 2 tab(s), Tab, Oral, q6hr PRN Pain, Routine, Start date 08/13/24 12:28:00 EDT, 08/13/24 12:28:00 EDT albuterol, 2.5 mg, 3 mL, Soln-Inh, Inhalation, q4hr PRN Shortness of breath or wheezing, Routine, Start date 08/13/24 12:23:00 EDT albuterol-ipratropium, 3 mL, Soln-Inh, Inhalation, QID, Routine, Start date 08/13/24 16:00:00 EDT alprazolam, 1 mg = 1 tab(s), Tab, Oral, QID PRN Anxiety, Routine, Start date 08/13/24 12:23:00 EDT, 08/13/24 12:23:00 EDT aspirin, 81 mg = 1 tab(s), Tab-EC, Oral, Daily, NOW, Start date 08/13/24 12:23:00 EDT, 08/13/24 12:23:00 EDT atorvastatin, 80 mg = 2 tab(s), Tab, Oral, Daily, Routine, Start date 08/14/24 9:00:00 EDT, 08/13/24 12:23:00 EDT carvedilol, 6.25 mg = 1 tab(s), Tab, Oral, BID, NOW, Start date 08/13/24 12:24:00 EDT, 08/13/24 12:24:00 EDT heparin, 5,000 unit(s) = 1 mL, Injection, SubCutaneous, BID for 30 day(s), Stop date 09/12/24 20:59:00 EDT, Routine, Start date 08/13/24 21:00:00 EDT, 08/13/24 12:28:00 EDT isosorbide mononitrate, 30 mg = 1 tab(s), Tab-ER, Oral, BID, NOW, Start date 08/13/24 12:24:00 EDT, 08/13/24 12:24:00 EDT lamotrigine, 75 mg = 3 tab(s), Tab, Oral, Once a day (at bedtime), NOW, Start date 08/13/24 12:24:00 EDT, 08/13/24 12:24:00 EDT losartan, 100 mg = 2 tab(s), Tab, Oral, Daily, NOW, Start date 08/13/24 12:24:00 EDT, 08/13/24 12:24:00 EDT olanzapine, 5 mg = 1 tab(s), Tab, Oral, Once a day (at bedtime), Routine, Start date 08/13/24 21:00:00 EDT, 08/13/24 12:24:00 EDT ondansetron, 4 mg = 2 mL, Injection, IV Push, q6hr PRN Nausea, Routine, Start date 08/13/24 12:28:00 EDT, 08/13/24 12:28:00 EDT prasugrel, 10 mg = 1 tab(s), Tab, Oral, Daily, NOW, Start date 08/13/24 12:24:00 EDT, 08/13/24 12:24:00 EDT quetiapine, 100 mg = 1 tab(s), Tab, Oral, Bedtime, Routine, Start date 08/13/24 21:00:00 EDT, 08/13/24 12:24:00 EDT ranolazine, 500 mg = 1 tab(s), Tab-ER, Oral, BID, NOW, Start date 08/13/24 12:24:00 EDT, 08/13/24 12:24:00 EDT ropinirole, 1 mg = 1 tab(s), Tab, Oral, Daily, NOW, Start date 08/13/24 12:24:00 EDT, 08/13/24 12:24:00 EDT senna, 17.2 mg = 2 tab(s), Tab, Oral, BID PRN Other (see comment), Routine, Start date 08/13/24 12:28:00 EDT, 08/13/24 12:28:00 EDT trazodone, 300 mg, Tab, Oral, Once a day (at bedtime), Routine, Start date 08/13/24 21:00:00 EDT, 08/13/24 12:25:00 EDT venlafaxine, 300 mg = 2 cap(s), Cap-ER, Oral, Once a day (at bedtime), Routine, Start date 08/13/24 21:00:00 EDT, 08/13/24 12:25:00 EDT Basic Metabolic Panel Below the Knee Intermittent Pneumatic Compression Device Cardiac Diet Cardiac Monitoring CBC w/ Auto Diff Chest Pain, AMI Quality Measures Communication Order Consult to Cardiology Evaluate Need For Continued Telemetry Incentive Spirometry Intake and Output Notify Provider Vital Signs Notify Provider Vital Signs Oxygen Protocol Pulse Oximetry Respiratory Protocol Resuscitation Status - Full Saline Lock Convert From IV Smoking Cessation Instruction ANNITA Risk Score Up ad Smitha Vital Signs Weight Patient is admitted to observation status as we anticipate less than 2-minute stay for further evaluation of chest discomfort, AMI ruled out FULL CODE DVT prophylaxis: Subcutaneous heparin Future Appointments Appointment Date:10/03/2024 11:30:00 AM Scheduled Provider:Amilcar Matthews PA-C [facility] Type:Cardiology Follow Up (FT) Appointment Date:10/29/2024 03:30:00 PM Scheduled Provider:Dorie Luis MD Location:[facility] Appointment Type: Open Appointment Date:06/18/2025 02:30:00 PM Scheduled Provider: Location:[facility] Appointment Type: Medicare Wellness Subsequent Future Scheduled Tests Laboratory* B-Type Natriuretic Peptide 12/01/23 * Basic Metabolic Panel 12/01/23 [facility] 07-31-2024 NotePatient Education Mental and Behavioral Health Managing Anxiety, Adult After being diagnosed with anxiety, you may be relieved to know why you have felt or behaved a certain way. You may also feel overwhelmed about the treatment ahead and what it will mean for your life. With care and support, you can manage this condition. How to manage lifestyle changes Managing stress and anxiety Stress is your body's reaction to life changes and events, both good and bad. Most stress will lastjust a few hours, but stress can be ongoing and can lead to more than just stress. Although stress can play a major role in anxiety, it is not the same as anxiety. Stress is usually caused by something external, such as a deadline, test, or competition. Stress normally passes after the triggering event has ended. Anxiety is caused by something internal, such as imagining a terrible outcome or worrying that something will go wrong that will devastate you. Anxiety often does not go away even after the triggering event is over, and it can become long-term (chronic) worry. It is important to understand the differences between stress and anxiety and to manage your stress effectively so that it does not lead dillon anxious response. Talk with your health care provider or a counselor to learn more about reducing anxiety and stress.He or she may suggest tension reduction techniques, such as: ? Music therapy. Spend time creating or listening to music that you enjoy and that inspires you. ? Mindfulness-based meditation. Practice being aware of your normal breaths while not trying to control your breathing. It can be done while sitting or walking. ? Centering prayer. This involves focusing on a word, phrase, or sacred image that means something to you and brings you peace. ? Deep breathing. To do this, expand your stomach and inhale slowly through your nose. Hold your breath for 3?5 seconds. Then exhale slowly, letting your stomach muscles relax. ? Self-talk. Learn to notice and identify thought patterns that lead to anxiety reactions and change those patterns to thoughts that feel peaceful. ? Muscle relaxation. Taking time to tense muscles and then relax them. Choose a tension reduction technique that fits your lifestyle and personality. These techniques take time and practice. Set aside 5?15 minutes a day to do them. Therapists can offer counseling and training in these techniques. The training to help with anxiety may be covered by some insurance plans. Other things you can do to manage stress and anxiety include: ? Keeping a stress diary. This can help you learn what triggers your reaction and then learn ways to manage your response. ? Thinking about how you react to certain situations. You may not be able to control everything, but you can control your response. ? Making time for activities that help you relax and not feeling guilty about spending your time inthis way. ? Doing visual imagery. This involves imagining or creating mental pictures to help you relax. ? Practicing yoga. Through yoga poses, you can lower tension and promote relaxation. Medicines Medicines can help ease symptoms. Medicines for anxiety include: ? Antidepressant medicines. These are usually prescribed for long-term daily control. ? Anti-anxiety medicines. These may be added in severe cases, especially when panic attacks occur. Medicines will be prescribed by a health care provider. When used together, medicines, psychotherapy, and tension reduction techniques may be the most effective treatment. Relationships Relationships can play a big part in helping you recover. Try to spend more time connecting with trusted friends and family members. ? Consider going to couples counseling if you have a partner, taking family education classes, or going to family therapy. ? Therapy can help you and others better understand your condition. How to recognize changes in your anxiety Everyone responds differently to treatment for anxiety. Recovery from anxiety happens when symptomsdecrease and stop interfering with your daily activities at home or work. This may mean that you will start to: ? Have better concentration and focus. Worry will interfere less in your daily thinking. ? Sleep better. ? Be less irritable. ? Have more energy. ? Have improved memory. It is also important to recognize when your condition is getting worse. Contact your health care provider if your symptoms interfere with home or work and you feel like your condition is not improving. Follow these instructions at home: Activity ? Exercise. Adults should do the following: ? Exercise for at least 150 minutes each week. The exercise should increase your heart rate and make you sweat (moderate-intensity exercise). ? Strengthening exercises at least twice a week. ? Get the right amount and quality of sleep. Most adults need 7?9 hours of sleep each night. Lifestyle (Inserted Image. Mary (more content not included)...[facility] 05-29-2024 NotePatient Education Nutrition BMI for Adults What is BMI? Body mass index (BMI) is a number that is calculated from a person's weight and height. BMI can help estimate how much of a person's weight is composed of fat. BMI does not measure body fat directly.Rather, it is an alternative to procedures that directly measure body fat, which can be difficult and expensive. BMI can help identify people who may be at higher risk for certain medical problems. What are BMI measurements used for? BMI is used as a screening tool to identify possible weight problems. It helps determine whether a person is obese, overweight, a healthy weight, or underweight. BMI is useful for: ? Identifying a weight problem that may be related to a medical condition or may increase the risk for medical problems. ? Promoting changes, such as changes in diet and exercise, to help reach a healthy weight. BMI screening can be repeated to see if these changes are working. How is BMI calculated? BMI involves measuring your weight in relation to your height. Both height and weight are measured,and the BMI is calculated from those numbers. This can be done either in [place] ([place] or metric measurements. Note that charts and online BMI calculators are available to help you find your BMI quickly and easily without having to do these calculations yourself. To calculate your BMI in [place] measurements: 1. Measure your weight in pounds (lb). 2. Multiply the number of pounds by 703. ? For example, for a person who weighs 180 lb, multiply that number by 703, which equals 126,540. 3. Measure your height in inches. Then multiply that number by itself to get a measurement called inches squared. ? For example, for a person who is 70 inches tall, the inches squared measurement is 70 inches x 70 inches, which equals 4,900 inches squared. 4. Divide the total from step 2 (number of lb x 703) by the total from step 3 (inches squared): 126,540 ? 4,900 = 25.8. This is your BMI. To calculate your BMI in metric measurements: 1. Measure your weight in kilograms (kg). 2. Measure your height in meters (m). Then multiply that number by itself to get a measurement called meters squared. ? For example, for a person who is 1.75 m tall, the meters squared measurement is 1.75 m x 1.75 m, which is equal to 3.1 meters squared. 3. Divide the number of kilograms (your weight) by the meters squared number. In this example: 70 ?3.1 = 22.6. This is your BMI. What do the results mean? BMI charts are used to identify whether you are underweight, normal weight, overweight, or obese. The following guidelines will be used: ? Underweight: BMI less than 18.5. ? Normal weight: BMI between 18.5 and 24.9. ? Overweight: BMI between 25 and 29.9. ? Obese: BMI of 30 or above. Keep these notes in mind: ? Weight includes both fat and muscle, so someone with a muscular build, such as an athlete, may have a BMI that is higher than 24.9. In cases like these, BMI is not an accurate measure of body fat. ? To determine if excess body fat is the cause of a BMI of 25 or higher, further assessments may need to be done by a health care provider. ? BMI is usually interpreted in the same way for men and women. Where to find more information For more information about BMI, including tools to quickly calculate your BMI, go to these websites: ? Centers for Disease Control and Prevention: www.cdc.gov ? [place] [employer] Association: www.heart.org ? National Heart, Lung, and Blood [place]: www.nhlbi.nih.gov Summary ? Body mass index (BMI) is a number that is calculated from a person's weight and height. ? BMI may help estimate how much of a person's weight is composed of fat. BMI can help identify those who may be at higher risk for certain medical problems. ? BMI can be measured using [place] measurements or metric measurements. ? BMI charts are used to identify whether you are underweight, normal weight, overweight, or obese. This information is not intended to replace advice given to you by your health care provider. Make sure you discuss any questions you have with your health care provider. Document Revised: 07/23/2020 Document Reviewed: 05/30/2020 [employer] Patient Education ? 2022 T-Quad 22.[facility] 05-16-2024 Hospital Discharge instructions Patient Education 05/16/2024 12:28:59 Nonspecific Chest Pain, Adult, [id number] Nonspecific Chest Pain Chest pain can be caused by many different conditions. Some causes of chest pain can be life-threatening. These will require treatment right away. Serious causes of chest pain include: Heart attack. A tear in the body's main blood vessel. Redness and swelling (inflammation) around your heart. Blood clot in your lungs. Other causes of chest pain may not be so serious. These include: Heartburn. Anxiety or stress. Damage to bones or muscles in your chest. Lung infections. Chest pain can feel like: Pain or discomfort in your chest. Crushing, pressure, aching, or squeezing pain. Burning or tingling. Dull or sharp pain that is worse when you move, cough, or take a deep breath. Pain or discomfort that is also felt in your back, neck, jaw, shoulder, or arm, or pain that spreads to any of these areas. It is hard to know whether your pain is caused by something that is serious or something that is not so serious. So it is important to see your doctor right away if you have chest pain. Follow these instructions at home: Medicines Take [id number] and prescription medicines only as told by your doctor. If you were prescribed an antibiotic medicine, take it as told by your doctor. Do not stop taking the antibiotic even if you start to feel better. Lifestyle Rest as told by your doctor. Do not use any products that contain nicotine or tobacco, such as cigarettes, e- cigarettes, and chewing tobacco. If you need help quitting, ask your doctor. Do not drink alcohol. Make lifestyle changes as told by your doctor. These may include: ?Getting regular exercise. Ask your doctor what activities are safe for you. ?Eating a heart-healthy diet. A diet and nutrition consultant (dietitian) can help you to learn healthy eating options. ?Staying at a healthy weight. ?Treating diabetes or high blood pressure, if needed. ?Lowering your stress. Activities such as yoga and relaxation techniques can help. General instructions Pay attention to any changes in your symptoms. Tell your doctor about them or any new symptoms. Avoid any activities that cause chest pain. Keep all follow-up visits as told by your doctor. This is important. You may need more testing if your chest pain does not go away. Contact a doctor if: Your chest pain does not go away. You feel depressed. You have a fever. Get help right away if: Your chest pain is worse. You have a cough that gets worse, or you cough up blood. You have very bad (severe) pain in your belly (abdomen). You pass out (faint). You have either of these for no clear reason: ?Sudden chest discomfort. ?Sudden discomfort in your arms, back, neck, or jaw. You have shortness of breath at any time. You suddenly start to sweat, or your skin gets clammy. You feel sick to your stomach (nauseous). You throw up (vomit). You suddenly feel lightheaded or dizzy. You feel very weak or tired. Your heart starts to beat fast, or it feels like it is skipping beats. These symptoms may be an emergency. Do not wait to see if the symptoms will go away. Get medical help right away. Call your local emergency services (911 in the [place] Do not drive yourself to the hospital. Summary Chest pain can be caused by many different conditions. The cause may be serious and need treatment right away. If you have chest pain, see your doctor right away. Follow your doctor's instructions for taking medicines and making lifestyle changes. Keep all follow-up visits as told by your doctor. This includes visits for any further testing if your chest pain does not go away. Be sure to know the signs that show that your condition has become worse. Get help right away if you have these symptoms. This information is not intended to replace advice given to you by your health care provider. Make sure you discuss any questions you have with your health care provider. Document Revised: 01/14/2022 Document Reviewed: 01/14/2022 [employer] Patient Education 2022 T-Quad 22. Follow Up Care 05/15/2024 13:15:31 With:Tiffany Jansen Address: [address] [place] [address] [facility] (1) When:06/13/2024 09:15:00 Comments:Will be seeing Amilcar EMMANUEL at this appointment With:Dorie Luis Address:Unknown When:05/28/2024 15:00:00 [facility]07-03-2024 Evaluation + Plan noteExtracted from: Title:Discharge Note Author:TARA POSEY, Ephraim Archibald ate:05/16/24 Stable Discharge To, Anticipated II - Home with responsible caregiver Discharged to - Home with family retirement Discharge Diet(s): Low Sodium- 2000 mg (05/16/24 12:26:00) Prescriptions atorvastatin 80 mg Tab, 80 mg= 1 tab(s), Oral, Daily, 5 refills carvedilol 6.25 mg Tab, 6.25 mg= 1 tab(s), Oral, BID, 3 refills Handicap Placard, 5 years., See Instructions isosorbide mononitrate 30 mg ER Tab, 30 mg= 1 tab(s), Oral, BID, 6 refills nitroglycerin 0.4 mg sublingual Tab, 0.4 mg= 1 tab(s), SubLingual, q5min, PRN, 6 refills Ranexa 500 mg Tab-ER, 500 mg= 1 tab(s), Oral, BID, 5 refills ropinirole 1 mg Tab, 1 mg= 1 tab(s), Oral, Daily, 1 refills Home Albuterol (Eqv-ProAir HFA) 90 mcg/inh inhalation aerosol, 2 puff(s), Inhalation, q4hr alprazolam 1 mg Tab, 1 mg= 1 tab(s), Oral, QID, PRN aspirin 81 mg Oral EC Tab, 81 mg= 1 tab(s), Oral, Daily Breztri Aerosphere, 2 puff(s), Inhalation, BID Effexor XR 150 mg Cap-ER, 300 mg= 2 cap(s), Oral, Once a day (at bedtime) Lamictal 25 mg Tab, 75 mg= 3 tab(s), Oral, Once a day (at bedtime) quetiapine, 100 mg, Oral, Once a day (at bedtime) traZODONE 100 mg Tab, 300 mg= 3 tab(s), Oral, Once a day (at bedtime) Trelegy Ellipta 100 mcg-62.5 mcg-25 mcg inhalation powder, 1 puff(s), Inhalation, Daily, Not taking ZyPREXA 5 mg Tab, 5 mg= 1 tab(s), Oral, Once a day (at bedtime) With When Contact Information Tiffany Jansen Within [address] to [address] [place] [id number] [facility] (1) Additional Instructions: Call for followup appointment Dorie Luis Within 3 to 5 days Additional Instructions: Call for followup appointment Nonspecific Chest Pain, Adult, [id number] Extracted from: Title:Consult Note Author:Sheila POSEY, Fe Chavarria Date:05/16/24 63-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 Admitted for unstable angina/hypertensive urgency. Ruled out for SD and EKG is unchanged. Feeling better now that blood pressure is under control. Patient had ran out of Ranexa but did not have it yet from our office and therefore had not been taking. Will resume her Ranexa and increase her Coreg to 12.5 mg p.o. twice daily following which she can be discharged home to follow-up as an outpatient. Thank you for the consultation 1. Chest pain (R07.9: Chest pain, unspecified) 2. Dizziness (R42: Dizziness and giddiness) 3. HTN (hypertension), benign (I10: Essential (primary) hypertension) 4. RLS (restless legs syndrome) (G25.81: Restless legs syndrome) 5. COPD (chronic obstructive pulmonary disease) (J44.9: Chronic obstructive pulmonary disease, unspecified) 6. CAD (coronary artery disease) (I25.10: Atherosclerotic heart disease of [place] coronary artery without angina pectoris) 7. History of ST elevation myocardial infarction (STEMI) (I25.2: Old myocardial infarction) 8. Tobacco dependence (F17.200: Nicotine dependence, unspecified, uncomplicated) 9. Obese (E66.9: Obesity, unspecified) 10. 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: Other retirement (current) drug therapy) Orders: prasugrel, 10 mg = 1 tab(s), Oral, Daily, # 30 tab(s), Refills(s) 3, Pharmacy: [facility], 154, cm, 12/01/23 13:52:00 EST, Height/Length Dosing, 68.6, kg, 12/01/23 14:05:00 EST, Weight Dosing Extracted from: Title:APSO Note Author:TARA POSEY, Mbanefo Date: 63-year-old female cigarette smoker with history of STEMI, coronary artery disease status post stents x 3, hypertension off antihypertensive secondary to dizziness/syncope, restless leg syndrome, COPD presented with complaints of chest pain associated with dizziness, nausea and shortness of breath today and admitted with chest pain and dizziness to rule out acute coronary syndrome. 1. Chest pain (R07.9: Chest pain, unspecified) Chest pain secondary to uncontrolled hypertension. Chest pain resolved with better control of blood pressure. Acute coronary syndrome ruled out with negative serial cardiac enzymes. Cardiology consult pending. Ordered: Consult to Cardiology [facility] Hospital Care/Day Moderate 35 Minutes [id number] 2. Dizziness (R42: Dizziness and giddiness) Secondary to uncontrolled hypertension. Resolved. Ordered: [facility] Hospital Care/Day Moderate 35 Minutes [id number] 3. HTN (hypertension), benign (I10: Essential (primary) hypertension) Blood pressure well-controlled. Continue on Coreg and isosorbide-dose increased Continue on IV hydralazine as needed. Ordered: [facility] Hospital Care/Day Moderate 35 Minutes [id number] 4. RLS (restless legs syndrome) (G25.81: Restless legs syndrome) On ropinirole. Ordered: [facility] Hospital Care/Day Moderate 35 Minutes [id number] 5. COPD (chronic obstructive pulmonary disease) (J44.9: Chronic obstructive pulmonary disease, unspecified) Stable. On nebulizer treatments. 6. CAD (coronary artery disease) (I25.10: Atherosclerotic heart disease of [place] coronary artery without angina pectoris) History of STEMI status post stents x 17 July 2023. Stable. Continue on aspirin, Effient, Coreg and isosorbide. Ordered: 7. History of ST elevation myocardial infarction (STEMI) (I25.2: Old myocardial infarction) Historical. Continue above meds. 8. Tobacco dependence (F17.200: Nicotine dependence, unspecified, uncomplicated) Recommend cessation. 9. Obese (E66.9: Obesity, unspecified) Recommend therapeutic lifestyle modification changes. 10. 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: Other retirement (current) drug therapy) Lovenox. Disposition: Home soon pending cardiology evaluation. I discussed the diagnosis and plan of care with the patient at the bedside. Moderate level of MDM based on addressing above issues. This documentation was transcribed using voice recognition software. Several attempts were made to ensure accuracy. However inadvertent computerized switch inspector errors may be present. Ephraim Ross. Hospitalist. Extracted from: Title:Admission H & P Author:TARA POSEY, Mbanefo Date:05/15/24 63-year-old female cigarette smoker with history of STEMI, coronary artery disease status post stents x 3, hypertension off antihypertensive secondary to dizziness/syncope, restless leg syndrome, COPD presented with complaints of chest pain associated with dizziness, nausea and shortness of breath today and is being admitted with chest pain and dizziness to rule out acute coronary syndrome. 1. Chest pain (R07.9: Chest pain, unspecified) Chest pain likely secondary to uncontrolled hypertension. However rule out acute coronary syndrome. Admit to regular medical floor. I reviewed labs so far cardiac enzymes are negative. EKG sinus rhythm with no significant ST-T segment changes. Ordered: Consult to Cardiology Initial Hospital Care/Day Moderate 55 Minutes [id number] 2. Dizziness (R42: Dizziness and giddiness) Suspect secondary to uncontrolled hypertension. Will start patient on antihypertensives. Ordered: Initial Hospital Care/Day Moderate 55 Minutes [id number] 3. HTN (hypertension), benign (I10: Essential (primary) hypertension) Blood pressure uncontrolled. May be contributing to above. Resume Coreg and isosorbide. Started patient on IV hydralazine. Ordered: Initial Hospital Care/Day Moderate 55 Minutes 80825 4. RLS (restless legs syndrome) (G25.81: Restless legs syndrome) On ropinirole. Ordered: Initial Hospital Care/Day Moderate 55 Minutes [id number] 5. COPD (chronic obstructive pulmonary disease) (J44.9: Chronic obstructive pulmonary disease, unspecified) Stable. 6. CAD (coronary artery disease) (I25.10: Atherosclerotic heart disease of [place] coronary artery without angina pectoris) Patient with history of STEMI status post stent times 17 July 2023. Stable. Continue on aspirin, prasugrel, Coreg and isosorbide. Ordered: Initial Hospital Care/Day Moderate 55 Minutes [address] elevation myocardial infarction (STEMI) (I25.2: Old myocardial infarction) Historical. Continue on home medications. 8. Tobacco dependence (F17.200: Nicotine dependence, unspecified, uncomplicated) Recommend cessation. Offered patient nicotine patch that she refused. 9. Obese (E66.9: Obesity, unspecified) Recommend therapeutic lifestyle modification changes. 10. 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: Other retirement (current) drug therapy) Lovenox. Disposition: The patient will be admitted under observation status and I anticipate she will require less than 2 midnight hospital stay for the treatment of above chest pain and dizziness. I discussed the diagnosis and plan of care with the patient at the bedside. Moderate level of MDM based on addressing above issues. This documentation was transcribed using voice recognition software. Several attempts were made to ensure accuracy. However inadvertent computerized switch inspector errors may be present. Ephraim Ross. Hospitalist. Orders: acetaminophen, 650 mg = 2 tab(s), Tab, Oral, q6hr PRN Pain, Routine, Start date 05/15/24 16:00:00 EDT, 05/15/24 16:00:00 EDT Al hydroxide/Mg hydroxide/simethicone, 30 mL, Susp-Oral, Oral, q6hr PRN Indigestion, Routine, Start date 05/15/24 16:00:00 EDT aspirin, 81 mg = 1 tab(s), Tab-EC, Oral, Daily, Routine, Start date 05/16/24 9:00:00 EDT, 05/15/24 16:00:00 EDT diphenhydrAMINE, 25 mg = 1 cap(s), Cap, Oral, q6hr PRN Itching, Routine, Start date 05/15/24 16:00:00 EDT, 05/15/24 16:00:00 EDT enoxaparin, 40 mg = 0.4 mL, Injection, SubCutaneous, Daily for 30 day(s), Stop date 06/15/24 8:59:00 EDT, Routine, Start date 05/16/24 9:00:00 EDT, 05/15/24 16:00:00 EDT hydrALAZINE, 10 mg = 0.5 mL, Injection, IV Push, q6hr PRN Other (see comment), Routine, Start date 05/15/24 16:00:00 EDT, 05/15/24 16:00:00 EDT magnesium hydroxide, 30 mL, Susp-Oral, Oral, q6hr PRN Constipation, Routine, Start date 05/15/24 16:00:00 EDT morphine, 2 mg = 1 mL, Injection, IV Push, q2hr PRN Chest pain for 5 day(s), Stop date 05/20/24 15:59:00 EDT, Routine, Start date 05/15/24 16:00:00 EDT, 05/15/24 16:00:00 EDT ondansetron, 4 mg = 2 mL, Injection, IV Push, q6hr PRN Nausea, Routine, Start date 05/15/24 16:00:00 EDT, 05/15/24 16:00:00 EDT senna, 17.2 mg = 2 tab(s), Tab, Oral, BID PRN Other (see comment), Routine, Start date 05/15/24 16:00:00 EDT, 05/15/24 16:00:00 EDT Cardiac Diet Cardiac Monitoring Chest Pain, AMI Quality Measures Communication Order Lipid Panel Oxygen Protocol Place in Status Pulse Oximetry Resuscitation Status - Full Up ad Smitha Vital Signs Weight Extracted from: Title:ED Note Author:Ainsley Rose M.D. te:05/15/24 1. Chest pain (R07.9: Chest pain, unspecified) 2. Dizziness (R42: Dizziness and giddiness) 3. HTN (hypertension), benign (I10: Essential (primary) hypertension) 4. RLS (restless legs syndrome) (G25.81: Restless legs syndrome) 5. COPD (chronic obstructive pulmonary disease) (J44.9: Chronic obstructive pulmonary disease, unspecified) 6. CAD (coronary artery disease) (I25.10: Atherosclerotic heart disease of [place] coronary artery without angina pectoris) 7. History of ST elevation myocardial infarction (STEMI) (I25.2: Old myocardial infarction) 8. Tobacco dependence (F17.200: Nicotine dependence, unspecified, uncomplicated) 9. Obese (E66.9: Obesity, unspecified) Orders: aspirin, 162 mg = 2 tab(s), Tab-Chew, Oral, Once, Stop date 05/15/24 13:24:00 EDT, STAT, Start date 05/15/24 13:24:00 EDT, 05/15/24 13:24:00 EDT nitroglycerin, 0.4 mg = 1 tab(s), Tab, SubLingual, q5min PRN Chest pain for 3 dose(s), Stop date Limited # of times, STAT, Start date 05/15/24 13:24:00 EDT, Hold for SBP < 110, 05/15/24 13:24:00 EDT nitroglycerin, 1 in, Ointment, Topical, Once, Stop date 05/15/24 13:40:00 EDT, STAT, Start date 05/15/24 13:40:00 EDT Basic Metabolic Panel CBC w/ Auto Diff ECG 12 Lead Adult ED Cardiac Monitoring ED Physician consult Hospitalist for continued care eGFR Magnesium Level Oxygen Saturation Oxygen Therapy PT & PTT Saline Lock Insert Troponin 0 Hr. Troponin 1 Hr. Troponin 3 Hr. Troponin 6 Hr. XR Chest Single View Future Appointments Appointment Date:05/28/2024 03:00:00 PM Scheduled Provider:Dorie Luis MD Location:[facility] Appointment Type: Hospital Follow Up w/TCM Appointment Date:06/12/2024 11:00:00 AM Scheduled Provider: Location:[facility] Appointment Type: Medicare Wellness Subsequent Appointment Date:06/13/2024 09:15:00 AM Scheduled Provider:Amilcar Matthews PA-C [facility]:Cardiology Follow Up (FT) Future Scheduled Tests Laboratory* B-Type Natriuretic Peptide 12/01/23 * Basic Metabolic Panel 12/01/23 [facility]07-03-2024 NotePatient Education - Text Gastroenterology Nonspecific Chest Pain Chest pain can be caused by many different conditions. Some causes of chest pain can be life-threatening. These will require treatment right away. Serious causes of chest pain include: ? Heart attack. ? A tear in the body's main blood vessel. ? Redness and swelling (inflammation) around your heart. ? Blood clot in your lungs. Other causes of chest pain may not be so serious. These include: ? Heartburn. ? Anxiety or stress. ? Damage to bones or muscles in your chest. ? Lung infections. Chest pain can feel like: ? Pain or discomfort in your chest. ? Crushing, pressure, aching, or squeezing pain. ? Burning or tingling. ? Dull or sharp pain that is worse when you move, cough, or take a deep breath. ? Pain or discomfort that is also felt in your back, neck, jaw, shoulder, or arm, or pain that spreads to any of these areas. It is hard to know whether your pain is caused by something that is serious or something that is not so serious. So it is important to see your doctor right away if you have chest pain. Follow these instructions at home: Medicines ? Take [id number] and prescription medicines only as told by your doctor. ? If you were prescribed an antibiotic medicine, take it as told by your doctor. Do not stop takingthe antibiotic even if you start to feel better. Lifestyle ? Rest as told by your doctor. ? Do not use any products that contain nicotine or tobacco, such as cigarettes, e-cigarettes, and chewing tobacco. If you need help quitting, ask your doctor. ? Do not drink alcohol. ? Make lifestyle changes as told by your doctor. These may include: ? Getting regular exercise. Ask your doctor what activities are safe for you. ? Eating a heart-healthy diet. A diet and nutrition consultant (dietitian) can help you to learn healthy eating options. ? Staying at a healthy weight. ? Treating diabetes or high blood pressure, if needed. ? Lowering your stress. Activities such as yoga and relaxation techniques can help. General instructions ? Pay attention to any changes in your symptoms. Tell your doctor about them or any new symptoms. ? Avoid any activities that cause chest pain. ? Keep all follow-up visits as told by your doctor. This is important. You may need more testing ifyour chest pain does not go away. Contact a doctor if: ? Your chest pain does not go away. ? You feel depressed. ? You have a fever. Get help right away if: ? Your chest pain is worse. ? You have a cough that gets worse, or you cough up blood. ? You have very bad (severe) pain in your belly (abdomen). ? You pass out (faint). ? You have either of these for no clear reason: ? Sudden chest discomfort. ? Sudden discomfort in your arms, back, neck, or jaw. ? You have shortness of breath at any time. ? You suddenly start to sweat, or your skin gets clammy. ? You feel sick to your stomach (nauseous). ? You throw up (vomit). ? You suddenly feel lightheaded or dizzy. ? You feel very weak or tired. ? Your heart starts to beat fast, or it feels like it is skipping beats. These symptoms may be an emergency. Do not wait to see if the symptoms will go away. Get medical help right away. Call your local emergency services (911 in the [place] Do not drive yourself to the hospital. Summary ? Chest pain can be caused by many different conditions. The cause may be serious and need treatment right away. If you have chest pain, see your doctor right away. ? Follow your doctor's instructions for taking medicines and making lifestyle changes. ? Keep all follow-up visits as told by your doctor. This includes visits for any further testing ifyour chest pain does not go away. ? Be sure to know the signs that show that your condition has become worse. Get help right away if you have these symptoms. This information is not intended to replace advice given to you by your health care provider. Make sure you discuss any questions you have with your health care provider. Document Revised: 01/14/2022 Document Reviewed: 01/14/2022 [employer] Patient Education ? 2022 [employer].[facility] 05-16-2024 NoteDischarge Summary Admission and Discharge Information Admitting Physician - Ephraim ROSS MD Consulting Physician - [facility] Cardio, XXXX Admitting Diagnoses: Discharge Order Date Discharge Patient - Ordered -- 05/16/24 12:28:00 EDT, Home Discharge Diagnoses 1. Chest pain, 05/15/2024 2. Dizziness, 05/15/2024 3. HTN (hypertension), benign, 05/15/2024 4. RLS (restless legs syndrome), 05/15/2024 5. COPD (chronic obstructive pulmonary disease), 05/15/2024 6. CAD (coronary artery disease), 05/15/[address] elevation myocardial infarction (STEMI), 05/15/2024 8. Tobacco dependence, 05/15/2024 9. Obese, 05/15/2024 10. On deep vein thrombosis (DVT) prophylaxis, 05/15/2024 Chest pain, 05/15/2024 Shortness of breath, 05/15/2024 Procedure History PCI - Percutaneous coronary intervention (07/09/2023), Angioplasty, Gallbladder, Hysterectomy. Hospital Course 63-year-old female cigarette smoker with history of STEMI, coronary artery disease status post stents x 3, hypertension off some of her antihypertensive secondary to dizziness and syncope, restless leg syndrome, COPD presented with complaints of chest pain associated with dizziness, nausea and and shortness of breath. She was subsequently admitted to [facility] with dizziness andchest pain secondary to uncontrolled hypertension to rule out acute coronary syndrome. Acute coronary syndrome was ruled out with negative serial cardiac enzymes. Blood pressure was better controlledwith increasing Coreg to 6.25 mg twice daily and Imdur to 30 mg twice daily. She was seen in consultation by the clinical care manager. Patient had ran out of her home medications?including Ranexa and prasugrel. These were also reordered. Patient's overall condition improved with resolution of chest pain and better control of blood pressure and she was anxious to be discharged home. She was seen prior to discharge and remained in an improved and stable condition for discharge and was subsequently discharged home. She will follow-up with her primary care physician accordingly as well as the clinical care manager. Services Consulted - Completed -- 05/15/24 16:37:56 EDT Consult to Cardiology (Cardiology Consult) - Ordered -- 05/15/24 15:56:00 EDT, Chest pain and HTN, Consult and Co-manage, FT Heart and Vascular Physical Exam Vitals & Measurements T: 36.5 ?C(Axillary) TMIN: 36.4 ?C(Oral) TMAX: 37 ?C(Axillary) HR: 83(Monitored) RR: 18 BP: 108/71 SpO2: 93% HT: 160.02 cm WT: 72.8 kg General: alert, no acute distress Skin: warm, dry Head: no trauma, normocephalic Neck: Trachea midline, no adenopathy, no tenderness Eye: normal conjunctiva, sclera clear ENMT: TM's clear, oral mucosa moist, no pharyngeal erythema or exudate Cardiovascular: regular rate and rhythm, normal peripheral perfusion Respiratory: Lungs CTA, respirations non labored Chest wall: no deformity. Gastrointestinal: soft, non distended, no tenderness, no guarding. Obese. Bowel sounds intact. Back: No tenderness, Normal ROM, Normal alignment. Extremities: no deformity, no trauma Neurological: oriented x 4, LOC appropriate for age, CN II-XII intact, motor strength equal & normal bilaterally, sensation equal & normal bilaterally, speech normal Psychiatric: cooperative, affect appropriate for age, normal judgement, normal psychiatric thoughts. Tests Performed XR Chest Single View Discharge Plan Patient Discharge Condition Stable Discharge Disposition Discharge To, Anticipated II - Home with responsible caregiver Discharged to - Home with family retirement Discharge Diet Discharge Diet(s): Low Sodium- 2000 mg (05/16/24 12:26:00) Discharge Medication List Prescriptions atorvastatin 80 mg Tab, 80 mg= 1 tab(s), Oral, Daily, 5 refills carvedilol 6.25 mg Tab, 6.25 mg= 1 tab(s), Oral, BID, 3 refills Handicap Placard, 5 years., See Instructions isosorbide mononitrate 30 mg ER Tab, 30 mg= 1 tab(s), Oral, BID, 6 refills nitroglycerin 0.4 mg sublingual Tab, 0.4 mg= 1 tab(s), SubLingual, q5min, PRN, 6 refills Ranexa 500 mg Tab-ER, 500 mg= 1 tab(s), Oral, BID, 5 refills ropinirole 1 mg Tab, 1 mg= 1 tab(s), Oral, Daily, 1 refills Home Albuterol (Eqv-ProAir HFA) 90 mcg/inh inhalation aerosol, 2 puff(s), Inhalation, q4hr alprazolam 1 mg Tab, 1 mg= 1 tab(s), Oral, QID, PRN aspirin 81 mg Oral EC Tab, 81 mg= 1 tab(s), Oral, Daily Breztri Aerosphere, 2 puff(s), Inhalation, BID Effexor XR 150 mg Cap-ER, 300 mg= 2 cap(s), Oral, Once a day (at bedtime) Lamictal 25 mg Tab, 75 mg= 3 tab(s), Oral, Once a day (at bedtime) quetiapine, 100 mg, Oral, Once a day (at bedtime) traZODONE 100 mg Tab, 300 mg= 3 tab(s), Oral, Once a day (at bedtime) Trelegy Ellipta 100 mcg-62.5 mcg-25 mcg inhalation powder, 1 puff(s), Inhalation, Daily, Not taking ZyPREXA 5 mg Tab, 5 mg= 1 tab(s), Oral, Once a day (at bedtime) Follow-up With When Contact Information Tiffany Jansen Within 2 to 4 weeks Kaelyn Rodriguez (more content not included)...[facility] Center[facility] above:Result Comment: Electronically Signed By: TARA POSEY, Marianoanefo\.br\Date and Time Signed: 05/16/24 12:36 [id number] NoteConsultation Note Chief Complaint chest pressure/pain this AM. Reason for Consultation Chest pressure History of Present Illness 63-year-old female with history of CAD, prior STEMI, multivessel PCI, CUSTOM FURRIER of the RCA status post CUSTOM FURRIER intervention. Chronic chest pain syndrome on chronic antianginals. Developed chest discomfort feltlike a pressure sensation. This did not jasmyn after 3 nitroglycerin so she came into the hospital. It was radiating up to her neck. Associated with some shortness of breath. She was found to be very hypertensive. EKG and enzymes were negative. Review of Systems Constitutional: no fever, no sweats, no weakness Skin: no rash, no lesions, nobruising/petechiae ENMT: no sore throat, no congestion, no hoarseness Respiratory: no shortness of breath, no cough, no orthopnea, no wheezing Cardiovascular: no chest pain, no palpitations, no edema Gastrointestinal: no nausea, no vomiting, no diarrhea, no GI bleeding Genitourinary: no anuria/oliguria no hematuria Musculoskeletal: no back pain, no trauma Neurologic: no headache, no dizziness, no numbness, no weakness Psychiatric: no sleeping problems, no irritability, no anxiety/depression. Heme/Lymph: no bleeding tendency, no bruising tendency Allergy/Immunologic: no recurrent infections, no impaired immunity Additional ROS info: Except as noted in the above Review of Systems and in the History of Present Illness all other systems have been reviewed and are negative or noncontributory. Physical Exam Vitals & Measurements T: 36.5 ?C(Axillary) TMIN: 36.4 ?C(Oral) TMAX: 37 ?C(Axillary) HR: 83(Monitored) RR: 18 BP: 108/71 SpO2: 93% HT: 160.02 cm WT: 72.8 kg General: alert, no acute distress Skin: warm, dry intact Head: atraumatic, normocephalic Neck: Trachea midline, no JVD, no bruit Eye: normal conjunctiva, sclera clear ENMT: oral mucosa moist Cardiovascular: regular rate and rhythm, nomurmur normal peripheral perfusion Respiratory: Lungs CTA, respirations non labored Chest wall: no deformity. Gastrointestinal: soft, non distended, no tenderness, no guarding. Back: No tenderness, Normal ROM, Normal alignment. Extremities: no edema, no deformity, no trauma Neurological: oriented x 4, LOC appropriate for agesensation equal & normal bilaterally, speechnormal Psychiatric: cooperative, affect appropriate for age, normal judgement, normal psychiatric thoughts. Images EKG: Sinus rhythm with nonspecific ST-T wave changes, chronic Assessment/Plan 63-year-old female with chronic stable angina class II-III, CAD, prior STEMI, multivessel PCI, hypertension, hyperlipidemia. Admitted for unstable angina/hypertensive urgency. Ruled out for SD and EKG is unchanged. Feeling better now that blood pressure is under control. Patient had ran out of Ranexa but did not have it yet from our office and therefore had not been taking. Will resume her Ranexaand increase her Coreg to 12.5 mg p.o. twice daily following which she can be discharged home to follow-up as an outpatient. Thank you for the consultation 1. Chest pain (R07.9: Chest pain, unspecified) 2. Dizziness (R42: Dizziness and giddiness) 3. HTN (hypertension), benign (I10: Essential (primary) hypertension) 4. RLS (restless legs syndrome) (G25.81: Restless legs syndrome) 5. COPD (chronic obstructive pulmonary disease) (J44.9: Chronic obstructive pulmonary disease, unspecified) 6. CAD (coronary artery disease) (I25.10: Atherosclerotic heart disease of [place] coronary artery without angina pectoris) 7. History of ST elevation myocardial infarction (STEMI) (I25.2: Old myocardial infarction) 8. Tobacco dependence (F17.200: Nicotine dependence, unspecified, uncomplicated) 9. Obese (E66.9: Obesity, unspecified) 10. 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: Other buttermaker (current) drug therapy) Orders: prasugrel, 10 mg = 1 tab(s), Oral, Daily, # 30 tab(s), Refills(s) 3, Pharmacy: [id number], 154, cm, 12/01/23 13:52:00 EST, Height/Length Dosing, 68.6, kg, 12/01/23 14:05:00 EST, Weight Dosing Problem List/Past Medical History Ongoing Anxiety and depression Atherosclerosis of aorta COPD (chronic obstructive pulmonary disease) Current smoker Fatigue History of ST elevation myocardial infarction (STEMI) History of total abdominal hysterectomy HTN (hypertension), benign Major depressive disorder, recurrent, mild Polyneuropathy Primary insomnia RLS (restless legs syndrome) Walker as ambulation aid Historical Acute ST elevation myocardial infarction (STEMI) Procedure/Surgical History PCI - Percutaneous coronary intervention (07/09/2023), Angioplasty, Gallbladder, Hysterectomy. Medications Inpatient acetaminophen 325 mg Tab, 650 mg= 2 tab(s), Oral, q6hr, PRN Al hydroxide/Mg hydroxide/simethicone 200 mg-200 mg-20 mg/5 mL oral suspension, 30 mL, Oral, q6hr, PRN alprazolam 1 mg Tab, 1 mg= 1 tab(s), Oral, QID, PRN aspirin 81 mg Oral EC Tab, 81 mg= 1 tab(s), Oral, (more content not included)... [facility] CenterComment on above:Result Comment: Electronically Signed By: Sheila POSEY, Tiffany Chavarria\.br\Date and Time Signed: 05/16/24 12:24 [id number] NoteProgress Note-Physician Assessment/Plan 63-year-old female cigarette smoker with history of STEMI, coronary artery disease status post stents x 3, hypertension off antihypertensive secondary to dizziness/syncope, restless leg syndrome, COPD presented with complaints of chest pain associated with dizziness, nausea and shortness of breath today and admitted with chest pain and dizziness to rule out acute coronary syndrome. 1. Chest pain (R07.9: Chest pain, unspecified) Chest pain?secondary to uncontrolled hypertension. Chest pain resolved with better control of blood pressure. Acute coronary syndrome ruled out with negative serial cardiac enzymes. Cardiology consult pending. Ordered: Consult to Cardiology [facility] Hospital Care/Day Moderate 35 Minutes 70095 2. Dizziness (R42: Dizziness and giddiness) Secondary to uncontrolled hypertension. Resolved. Ordered: [facility] Hospital Care/Day Moderate 35 Minutes 80288 3. HTN (hypertension), benign (I10: Essential (primary) hypertension) Blood pressure well-controlled. Continue on Coreg and isosorbide-dose increased Continue on IV hydralazine as needed. Ordered: [facility] Hospital Care/Day Moderate 35 Minutes 45927 4. RLS (restless legs syndrome) (G25.81: Restless legs syndrome) On ropinirole. Ordered: [facility] Hospital Care/Day Moderate 35 Minutes 41889 5. COPD (chronic obstructive pulmonary disease) (J44.9: Chronic obstructive pulmonary disease, unspecified) Stable. On nebulizer treatments. 6. CAD (coronary artery disease) (I25.10: Atherosclerotic heart disease of [place] coronary artery without angina pectoris) History of STEMI status post stents x 3?July 2023. Stable. Continue on aspirin, Effient, Coreg and isosorbide. Ordered: 7. History of ST elevation myocardial infarction (STEMI) (I25.2: Old myocardial infarction) Historical. Continue above meds. 8. Tobacco dependence (F17.200: Nicotine dependence, unspecified, uncomplicated) Recommend cessation. 9. Obese (E66.9: Obesity, unspecified) Recommend therapeutic lifestyle modification changes. 10. 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: Other retirement (current) drug therapy) Lovenox. Disposition: Home soon pending cardiology evaluation. I discussed the diagnosis and plan of care with the patient at the bedside. Moderate level of MDM based on addressing above issues. This documentation was transcribed using voice recognition software. Several attempts were made to ensure accuracy. However inadvertent computerized switch inspector errors may be present. Ephraim Ross. Hospitalist. Subjective Seen and examined. Slept well last night. Denies any chest pain or shortness of breath. Objective Vitals & Measurements T: 36.5 ?C(Axillary) TMIN: 36.4 ?C(Oral) TMAX: 37 ?C(Axillary) HR: 83(Monitored) RR: 18 BP: 108/71 SpO2: 93% HT: 160.02 cm WT: 72.8 kg Intake & Output This visit (24 hour periods starting at 07:00 EDT) 05/16/24 * 05/15/24 05/14/24 Total Summary Intake mL -- 200.5 -- Output mL -- -- -- Fluid Balance -- 200.5 -- Intake (2) Oral Intake mL -- 200 -- hydrALAZINE mL -- 0.5 -- Total -- 200.5 -- Output (0) Counts (0) * This column has not completed the indicated time period. Physical Exam General: alert, no acute distress, comfortable in bed on room air and eating breakfast. Skin: warm, dry Head: no trauma, normocephalic Neck: Trachea midline, no adenopathy, no tenderness Eye: normal conjunctiva, sclera clear ENMT: TM's clear, oral mucosa moist, no pharyngeal erythema or exudate Cardiovascular: regular rate and rhythm, normal peripheral perfusion Respiratory: Lungs CTA, respirations non labored Chest wall: no deformity. Gastrointestinal: soft, non distended, no tenderness, no guarding. Obese. Bowel sounds intact. Back: No tenderness, Normal ROM, Normal alignment. Extremities: no deformity, no trauma Neurological: oriented x 4, LOC appropriate for age, CN II-XII intact, motor strength equal & normal bilaterally, sensation equal & normal bilaterally, speech normal Psychiatric: cooperative, affect appropriate for age, normal judgement, normal psychiatric thoughts. Lab Results WBC: 5.2 E9/L (05/15/24:30:00) RBC: 4.6 E12/L (05/15/24:30:00) HGB: 15.4 gm/dL (05/15/24:30:00) Hct: 43.6 % (05/15/24:30:00) MCV: 95.8 fL (05/15/24:30:00) MCH: 33.9 pg (05/15/24:30:00) MCHC: 35.4 gm/dL (05/15/24:30:00) RDW: 13.7 % (05/15/24 13:30:00) Platelet: 216 E9/L (05/15/24:30:00) MPV: 7 fL (05/15/24:30:00) Neutro Auto: 54.4 % (05/15/24:30:00) Lymph Auto: 33.2 % (05/15/24:30:00) Stephens Auto: 9 % (05/15/24:30:00) Eos Auto: 2.6 % (05/15/24:30:00) Basophil Auto: 0.8 % (05/15/24:30:00) Neutro Absolute: 2.8 E9/L (05/15/24 13:30:00) Lymph Absolute: 1.7 E9/L (07/02/24 13:30:00) Stephens Absolute: 0.5 E9/L (05/15/24 13:30:00) Eos Absolute: 0.1 E9/L ( (more content not included)...[facility] CenterComment on above:Result Comment: Electronically Signed By: TARA POSEY, Ephraim\.br\Date and Time Signed: 05/16/24 09:06 [id number] NoteHistory and Physical Chief Complaint pt presents via [facility] with c/o CP and SOB starting at 0600. pt has hx of stents. pt took 3 nitro and ASA before arrival. pt states pain is better but feels pressure . hx of copd History of Present Illness 63-year-old female cigarette smoker with history of STEMI, coronary artery disease status post stents x 3, hypertension off antihypertensive secondary to dizziness/syncope, restless leg syndrome, COPD presented with complaints of chest pain associated with dizziness, nausea and shortness of breath today. According to the patient she was in her usual state of health until early hours of this morning when she developed sternal chest pain. She described it as dull pressure-like pain rated at 7/10.Pain was intermittent in nature and was associated with nausea and shortness of breath. Despite taking 3 nitroglycerin she continued to have pain hence the trip to the emergency room. In the emergency room Nitropatch/patient was placed on her and she has since felt better. She is being admitted with chest pain, dizziness to rule out acute coronary syndrome. In the emergency room she was noted to have elevated blood pressure also. Review of Systems Constitutional: no fever, no chills, no sweats, no weakness Skin: no Jaundice, no rash, no lesions, nopetechiae ENMT: no ear pain, no sore throat, no congestion, no hoarseness Respiratory: mild shortness of breath, no cough, no orthopnea, no wheezing Cardiovascular: moderate chest pain, no palpitations, no edema Gastrointestinal: mild nausea, no vomiting, no diarrhea, no GI bleeding Genitourinary: no dysuria, no hematuria, no discharge, no pain Musculoskeletal: no back pain, no trauma Neurologic: no headache, mild dizziness, no numbness, no weakness Psychiatric: no sleeping problems, no irritability, no mood swings/depression. Heme/Lymph: no bleeding tendency, no bruising tendency, no petechiae, no swollen nodes Allergy/Immunologic: no seasonal allergies, no food allergies, no recurrent infections, no impairedimmunity Additional ROS info: Except as noted in the above Review of Systems and in the History of Present Illness all other systems have been reviewed and are negative or noncontributory. Scoring Taylor Fall Risk Score: 60 High (05/15/24) Physical Exam Vitals & Measurements T: 36.9 ?C(Oral) HR: 74(Monitored) RR: 18 BP: 185/99 SpO2: 96% HT: 154 cm WT: 72.2 kg General: alert, no acute distress, comfortable in bed on nasal cannula oxygen. Skin: warm, dry Head: no trauma, normocephalic Neck: Trachea midline, no adenopathy, no tenderness Eye: normal conjunctiva, sclera clear ENMT: TM's clear, oral mucosa moist, no pharyngeal erythema or exudate Cardiovascular: regular rate and rhythm, normal peripheral perfusion Respiratory: Lungs CTA, respirations non labored Chest wall: no deformity., No tenderness. Gastrointestinal: soft, non distended, no tenderness, no guarding. Obese. Bowel sounds intact. Back: No tenderness, Normal ROM, Normal alignment. Extremities: no deformity, no trauma Neurological: oriented x 4, LOC appropriate for age, CN II-XII intact, motor strength equal & normal bilaterally, sensation equal & normal bilaterally, speech normal Psychiatric: cooperative, affect appropriate for age, normal judgement, normal psychiatric thoughts. Lab Results WBC: 5.2 E9/L (05/15/24 13:30:00) RBC: 4.6 E12/L (05/15/24 13:30:00) HGB: 15.4 gm/dL (05/15/24 13:30:00) Hct: 43.6 % (05/15/24 13:30:00) MCV: 95.8 fL (05/15/24 13:30:00) MCH: 33.9 pg (05/15/24 13:30:00) MCHC: 35.4 gm/dL (05/15/24 13:30:00) RDW: 13.7 % (05/15/24 13:30:00) Platelet: 216 E9/L (05/15/24 13:30:00) MPV: 7 fL (05/15/24:30:00) Neutro Auto: 54.4 % (05/15/24:30:00) Lymph Auto: 33.2 % (05/15/24 13:30:00) Stephens Auto: 9 % (05/15/24:30:00) Eos Auto: 2.6 % (05/15/24:30:00) Basophil Auto: 0.8 % (05/15/24:30:00) Neutro Absolute: 2.8 E9/L (05/15/24:30:00) Lymph Absolute: 1.7 E9/L (05/15/24 13:30:00) Stephens Absolute: 0.5 E9/L (05/15/24:30:00) Eos Absolute: 0.1 E9/L (05/15/24:30:00) Basophil Absolute: 0 E9/L (05/15/24:30:00) PT: 10.1 second(s) (05/15/24::00) INR: 0.9 (05/15/24::00) PTT: 33.1 second(s) (05/15/24:30:00) Glucose Lvl: 100 mg/dL (05/15/24:30:00) BUN: 11 mg/dL (05/15/24:30:00) Creatinine: 0.5 mg/dL (05/15/24:30:00) eGFR: 104 mL/min/1.73 m2 (05/15/24:30:00) BUN/Creat Ratio: 22 High (05/15/24:30:00) Sodium Lvl: 140 mmol/L (05/15/24:30:00) Potassium Lvl: 3.7 mmol/L (05/15/24:30:00) Chloride: 106 mmol/L (05/15/24:30:00) CO2: 27 mmol/L (05/15/24:30:00) AGAP: 11 mEq/L (05/15/24:30:00) Calcium Lvl: 9.1 mg/dL (05/15/24:30:00) Magnesium: 1.9 mg/dL (07/02/24 13:30:00) Troponin HS: 5.7 pg/mL Low (05/15/24 13:30:00) Diagnostic Results (05/15/2024 13:49 EDT XR Chest Single View) * Final Report * Reason For Exam Chest pain POWERSCRIBE REPORT IMPRESSION: NO (more content not included)...[facility]:Result Comment: Electronically Signed By: TARA POSEY, Ephraim\.br\Date and Time Signed: 05/15/24 16:09 [id number] Nurse Note* Sherry Vides RN - 10/26/2023 4:43 PM EST Patient ambulated in lyles, groin site remained stable, discharge instructions reviewed with patientand family by MALACHI kaur, peripheral IV removed, final vitals and site assessment stable, discharged via wheelchair by RN [facility]12-13-2023 Nurse Note* Sherry Vides RN - 10/26/2023 4:43 PM EST Patient ambulated in lyles, groin site remained stable, discharge instructions reviewed with patientand family by MALACHI kaur, peripheral IV removed, final vitals and site assessment stable, discharged via wheelchair by RN * Claudia Holliday RN - 10/26/2023 3:51 PM EST HOB elevated 90 degrees. Groins stable. documented in this [facility] Work Phone: [phone] 355-261112-13-2023 Hospital Discharge instructions* Discharge Instructions* Claudia Holliday RN - 10/26/2023 4:29 PM EST FOR SUDDEN AND SEVERE CHEST PAIN, SHORTNESS OF BREATH, EXCESSIVE BLEEDING, SIGNS OF STROKE, OR CHANGES IN MENTAL STATUS YOU SHOULD CALL 911 IMMEDIATELY.\ 1.) GENERAL ANESTHESIA OR SEDATION -The anesthetics, sedatives or pain medicine which you were given, will be acting in your body for approximately 24 hours and you may feel a little sleepy. This feeling will slowly wear off over the next 24 hours therefore: A. DO NOT drive a car, operate machinery or power tools. B. DO NOT drink any alcoholic drinks or take any non-prescriptive medications that contain alcohol. C. DO NOT make any important decisions or sign any legal documents. 2.) ACTIVITY A. You are advised to go directly home from the hospital. B. DO NOT lift anything heavier than 10 pounds for 1 week, to allow time for your groin to properlyheal. No vigorous or strenuous physical activity for 1 week. C. Keep stair climbing to a minimum the first day after your procedure. D. No sexual activities for 24 hours after your procedure. 3.) DIET -You may resume your normal diet. However, it is better to start with liquids and gradually work upto solid foods. 4.) GROIN CARE A. We will apply an adhesive bandage to your groin before you go home. Keep this bandage clean and dry for 24 hours. B. You may remove the bandage in 24 hours. You may then shower, gently washing the site with soap and water, only and patting dry. C. DO NOT go swimming, soak in a bathtub or hot tub for 1 week to help prevent infection. Do not use lotions, ointments or powders on your groin for one week. You can cover the puncture site with a Band-Aid as needed. D. Your groin should remain soft, clean and dry. It is normal to experience tenderness and bruisingat the site. Also, a pea sized lump may be present. That should go away on its own within 1 week. E. Watch for signs and symptoms of infection: fever (greater than 101F), redness, drainage, increasing tenderness. Also, watch for bruising that spreads down your leg or a lump at the puncture site that grows or is larger than a pea. 5.) SPECIFIC CONCERNS TO WATCH FOR: A. If you start bleeding from your groin, lay down and have someone apply firm pressure just above the puncture site. If bleeding does not stop after 5 minutes of firm pressure or if you cannot control the bleeding, CALL 911. B. If after you are discharged, you develop: difficulty breathing, rash, hives, severe nausea, vomiting, lightheadedness or any signs and symptoms of an infection, please call your doctor and go to the nearest emergency room. 6.) SAFETY -It is recommended that a responsible adult be with you for the first 24 hours. This is for your protection and safety since you may not be as alert as usual. 7.) FOLLOW-UP A. Call your doctor as ordered to schedule a follow-up appointment, usually within one week. documented in this [facility] Work Phone: [phone]) 835-376912-13-2023 Nurse Note* Claudia Holliday RN - 10/26/2023 3:51 PM EST HOB elevated 90 degrees. Groins stable. [facility] Work Phone: [phone] 167-729912-13-2023 Note* Post-Procedure Note - Bertha Santoyo MD - 10/26/2023 1:31 PM EST Physician Transition of Care Summary Invasive Cardiovascular Lab Procedure Date: 10/26/2023 Attending: * Bandar Castrejon - Primary Resident/Fellow/Other Inspector Shells: Surgeon(s) and Role: Indications: Pre-op Diagnosis * 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 (CMS/HCC) [I25.112] Post-procedure diagnosis: Post-op Diagnosis * 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 (CMS/HCC) [I25.112] Procedure(s): PCI MYNOR Stent- PCI CUSTOM FURRIER RCA [phone] [id number] - AK PRQ TRLUML CORONRY CHRONIC OCCLUS REVASC ONE VSL IVUS - Coronary [place] PRQ TRLUML CORONRY CHRONIC OCCLUS REVASC ONE VSL [56371] Procedure Findings: Staged PCI to CUSTOM FURRIER RCA. S/p successful PCI with 2X MYNOR 3.0X48mm , 3.5X38mm post dilated to 4.0 proximally at the ostium. Description of the Procedure: Right SALES TEAM MEMBER 6Fr --> 6Fr Angioseal Left SALES TEAM MEMBER 6Fr --> 6Fr Angioseal Complications: None Stents/Implants: Cardiovascular Implants Stent Stent, Dagmar Xd, Us, 3.00 X 48mm - [id number] - Implanted Inventory item: STENT, DAGMAR XD, US, 3.00 X 48MM Model/Cat number: [id number] Product Info Specialist: [employer] Lot number: [id number] Device identifier: [id number] As of 10/26/2023 Status: Implanted Stent, Dagmar Xd, Us, 3.50 X 38mm - [id number] - Implanted Inventory item: STENT, DAGMAR XD, US, 3.50 X 38MM Model/Cat number: [id number] Product Info Specialist: [employer] Lot number: [id number] Device identifier: [id number] As of 10/26/2023 Status: Implanted Anticoagulation/Antiplatelet Plan: DAPT and statin for 1 year Estimated Blood Loss: 20 mL Anesthesia: Moderate Sedation Anesthesia Staff: No anesthesia staff entered. Any Specimen(s) Removed: Order Name Source Comment Collection Info Order Time BASIC METABOLIC PANEL Blood, Venous Collected By: Claudia Holliday RN 10/26/2023 10:38 AM Release result to MyChart Immediate CBC Blood, Venous Collected By: Claudia Holliday RN 10/26/2023 10:38 AM Release result to MyChart Immediate PROTIME-INR Blood, Venous Collected By: Claudia Holliday RN 10/26/2023 10:38 AM Release result to MyChart Immediate Disposition: Home Electronically signed by: Bertha Santoyo MD, 10/26/2023 1:31 PM [facility] Work Phone: [phone]) 339-725112-13-2023 Miscellaneous Notes* Post-Procedure Note - Bertha Santoyo MD - 10/26/2023 1:31 PM EST Physician Transition of Care Summary Invasive Cardiovascular Lab Procedure Date: 10/26/2023 Attending: Vanessa Castrejon - Primary Resident/Fellow/Other Inspector Shells: Surgeon(s) and Role: Indications: Pre-op Diagnosis * 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 (CMS/HCC) [I25.112] Post-procedure diagnosis: Post-op Diagnosis * 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 (CMS/HCC) [I25.112] Procedure(s): PCI MYNOR Stent- PCI CUSTOM FURRIER RCA [phone] [id number] - AK PRQ TRLUML CORONRY CHRONIC OCCLUS REVASC ONE VSL IVUS - Coronary AK PRQ TRLUML CORONRY CHRONIC OCCLUS REVASC ONE VSL [[id number]] Procedure Findings: Staged PCI to CUSTOM FURRIER RCA. S/p successful PCI with 2X MYNOR 3.0X48mm , 3.5X38mm post dilated to 4.0 proximally at the ostium. Description of the Procedure: Right SALES TEAM MEMBER 6Fr --> 6Fr Angioseal Left SALES TEAM MEMBER 6Fr --> 6Fr Angioseal Complications: None Stents/Implants: Cardiovascular Implants Stent StentDagmar Mr Us, 3.00 X 48mm - [id number] - Implanted Inventory item: STENT, MR HAZEL QUINONES, 3.00 X 48MM Model/Cat number: [id number] Product Info Specialist: [employer] Lot number: [id number] Device identifier: [id number] As of 10/26/2023 Status: Implanted Stent, Mr Hazel Quinones, 3.50 X 38mm - [id number] - Implanted Inventory item: STENT, DAGMAR XMR HAZEL Archibald, 3.50 X 38MM Model/Cat number: [id number] Product Info Specialist: [employer] Lot number: [id number] Device identifier: [id number] As of 10/26/2023 Status: Implanted Anticoagulation/Antiplatelet Plan: DAPT and statin for 1 year Estimated Blood Loss: 20 mL Anesthesia: Moderate Sedation Anesthesia Staff: No anesthesia staff entered. Any Specimen(s) Removed: Order Name Source Comment Collection Info Order Time BASIC METABOLIC PANEL Blood, Venous Collected By: Claudia Holliday RN 10/26/2023 10:38 AM Release result to [facility] Immediate CBC Blood, Venous Collected By: Claudia Holliday RN 10/26/2023 10:38 AM Release result to MyChart Immediate PROTIME-INR Blood, Venous Collected By: Claudia Holliday RN 10/26/2023 10:38 AM Release result to MyChart Immediate Disposition: Home Electronically signed by: Bertha Santoyo MD, 10/26/2023 1:31 PM * Pre-Sedation Documentation - Jacob Garcia MD - 10/26/2023 10:53 AM EST Sedation Plan ASA 3 Mallampati class: II. Risks, benefits, and alternatives discussed with patient. Irvin Garcia MD Interventional Senior Associate, PGY8 documented in this [facility] Work Phone: [phone]) 498-339512-13-2023 Note* Pre-Sedation Documentation - Jacob Garcia MD - 10/26/2023 10:53 AM EST Sedation Plan ASA 3 Mallampati class: II. Risks, benefits, and alternatives discussed with patient. Irvin Garcia MD Interventional Senior Associate, PGY8 [facility] Work Phone: [phone] 195-708612-13-2023 History and physical note* GAURAV Aly - 10/26/2023 10:20 AM EST History and Physical Pre Surgical Review (< 30 days) History & Physical Reviewed I have reviewed the History and Physical dated: 10/11/2023 History and Physical reviewed and relevant findings noted. Patient examined to review pertinent physical findings.: No significant changes Home Medications Reviewed: no changes noted Allergies Reviewed: no changes noted Home Medications Current Outpatient Medications Medication Instructions albuterol 90 mcg/actuation inhaler 2 puffs, inhalation, Every 4 hours PRN ALPRAZolam (XANAX) 1 mg, oral, 4 times daily PRN amLODIPine (NORVASC) 5 mg, oral, Daily aspirin 81 mg, oral, Daily atorvastatin (LIPITOR) 80 mg, oral, Daily carvedilol (COREG) 3.125 mg, oral, 2 times daily with meals jsxpsbtzyxm-dcwogkqxa-zhldpreq (Trelegy Ellipta) 100-62.5-25 mcg blister with device 1 puff, inhalation, Daily isosorbide mononitrate ER (IMDUR) 30 mg, oral, Daily, Do not crush or chew. lamoTRIgine (LAMICTAL) 75 mg, oral, Daily losartan (COZAAR) 100 mg, oral, Daily nitroglycerin (NITROSTAT) 0.4 mg, sublingual, Every 5 min PRN OLANZapine (ZYPREXA) 5 mg, oral, Nightly QUEtiapine (SEROQUEL) 800 mg, oral, Nightly ranolazine (RANEXA) 500 mg, oral, 2 times daily, Do not crush, chew, or split. rOPINIRole (REQUIP) 1 mg, oral, Daily ticagrelor (BRILINTA) 90 mg, oral, 2 times daily traZODone (DESYREL) 300 mg, oral, Nightly, Takes 3 100mg tabes at bedtime. venlafaxine XR (EFFEXOR-XR) 300 mg, oral, Daily, Do not crush or chew. Takes 2 capsules at bedtime. Allergies Allergies Allergen Reactions Buspirone Unknown and Headache Pregabalin Other Feels drunk / falls down Sulfa (Sulfonamide Antibiotics) Unknown Tramadol Unknown Adhesive Tape-Silicones Other PAPER TAPE OK Nicotine Unknown and Rash Physical Exam Physical Exam Vitals and nursing note reviewed. Constitutional: General: She is not in acute distress. Appearance: Normal appearance. She is not ill-appearing. HENT: Head: Normocephalic and atraumatic. Nose: Nose normal. Mouth/Throat: Mouth: Mucous membranes are moist. Pharynx: Oropharynx is clear. Eyes: Extraocular Movements: Extraocular movements intact. Conjunctiva/sclera: Conjunctivae normal. Pupils: Pupils are equal, round, and reactive to light. Cardiovascular: Rate and Rhythm: Normal rate and regular rhythm. Pulses: Normal pulses. Heart sounds: Normal heart sounds, S1 normal and S2 normal. No murmur heard. No systolic murmur is present. No friction rub. No gallop. Pulmonary: Effort: Pulmonary effort is normal. Breath sounds: Normal breath sounds. Abdominal: General: Abdomen is flat. Bowel sounds are normal. There is no distension. Palpations: Abdomen is soft. Musculoskeletal: General: Normal range of motion. Cervical back: Normal range of motion and neck supple. Right lower leg: No edema. Left lower leg: No edema. Skin: General: Skin is warm and dry. Capillary Refill: Capillary refill takes less than 2 seconds. Findings: No lesion. Nails: There is no clubbing. Neurological: General: No focal deficit present. Mental Status: She is alert and oriented to person, place, and time. Mental status is at baseline. Cranial Nerves: Cranial nerves 2-12 are intact. Sensory: Sensation is intact. Motor: Motor function is intact. Psychiatric: Attention and Perception: Attention and perception normal. Mood and Affect: Mood normal. Speech: Speech normal. Behavior: Behavior normal. Thought Content: Thought content normal. Cognition and Memory: Cognition and memory normal. Judgment: Judgment normal. Airway/Sedation Assessment Assessment by anesthesia See anesthesia airway/sedation assessment Mouth Opening OK yes Neck Flexibility OK yes Loose Teeth No Oropharyngeal Classification Grade II ASA PS Classification ASA III - Patient with severe systemic disease Sedation Plan Moderate Risks, benefits, and alternatives discussed with patient. ERAS (Enhanced Recovery After Surgery): ERAS Patient: No Consent: COVID-19 Consent: COVID-19 Risk Consent Surgeon has reviewed cardozo risks related to the risk of alexander COVID-19 and if they contract COVID-19 what the risks are. GAURAV Aly [facility] Work Phone: [phone] History and physical note* GAURAV Aly - 10/26/2023 10:20 AM EST History and Physical Pre Surgical Review (< 30 days) History & Physical Reviewed I have reviewed the History and Physical dated: 10/11/2023 History and Physical reviewed and relevant findings noted. Patient examined to review pertinent physical findings.: No significant changes Home Medications Reviewed: no changes noted Allergies Reviewed: no changes noted Home Medications Current Outpatient Medications Medication Instructions albuterol 90 mcg/actuation inhaler 2 puffs, inhalation, Every 4 hours PRN ALPRAZolam (XANAX) 1 mg, oral, 4 times daily PRN amLODIPine (NORVASC) 5 mg, oral, Daily aspirin 81 mg, oral, Daily atorvastatin (LIPITOR) 80 mg, oral, Daily carvedilol (COREG) 3.125 mg, oral, 2 times daily with meals njvpjjfyocm-kimdazbyv-lalqzteo (Trelegy Ellipta) 100-62.5-25 mcg blister with device 1 puff, inhalation, Daily isosorbide mononitrate ER (IMDUR) 30 mg, oral, Daily, Do not crush or chew. lamoTRIgine (LAMICTAL) 75 mg, oral, Daily losartan (COZAAR) 100 mg, oral, Daily nitroglycerin (NITROSTAT) 0.4 mg, sublingual, Every 5 min PRN OLANZapine (ZYPREXA) 5 mg, oral, Nightly QUEtiapine (SEROQUEL) 800 mg, oral, Nightly ranolazine (RANEXA) 500 mg, oral, 2 times daily, Do not crush, chew, or split. rOPINIRole (REQUIP) 1 mg, oral, Daily ticagrelor (BRILINTA) 90 mg, oral, 2 times daily traZODone (DESYREL) 300 mg, oral, Nightly, Takes 3 100mg tabes at bedtime. venlafaxine XR (EFFEXOR-XR) 300 mg, oral, Daily, Do not crush or chew. Takes 2 capsules at bedtime. Allergies Allergies Allergen Reactions Buspirone Unknown and Headache Pregabalin Other Feels drunk / falls down Sulfa (Sulfonamide Antibiotics) Unknown Tramadol Unknown Adhesive Tape-Silicones Other PAPER TAPE OK Nicotine Unknown and Rash Physical Exam Physical Exam Vitals and nursing note reviewed. Constitutional: General: She is not in acute distress. Appearance: Normal appearance. She is not ill-appearing. HENT: Head: Normocephalic and atraumatic. Nose: Nose normal. Mouth/Throat: Mouth: Mucous membranes are moist. Pharynx: Oropharynx is clear. Eyes: Extraocular Movements: Extraocular movements intact. Conjunctiva/sclera: Conjunctivae normal. Pupils: Pupils are equal, round, and reactive to light. Cardiovascular: Rate and Rhythm: Normal rate and regular rhythm. Pulses: Normal pulses. Heart sounds: Normal heart sounds, S1 normal and S2 normal. No murmur heard. No systolic murmur is present. No friction rub. No gallop. Pulmonary: Effort: Pulmonary effort is normal. Breath sounds: Normal breath sounds. Abdominal: General: Abdomen is flat. Bowel sounds are normal. There is no distension. Palpations: Abdomen is soft. Musculoskeletal: General: Normal range of motion. Cervical back: Normal range of motion and neck supple. Right lower leg: No edema. Left lower leg: No edema. Skin: General: Skin is warm and dry. Capillary Refill: Capillary refill takes less than 2 seconds. Findings: No lesion. Nails: There is no clubbing. Neurological: General: No focal deficit present. Mental Status: She is alert and oriented to person, place, and time. Mental status is at baseline. Cranial Nerves: Cranial nerves 2-12 are intact. Sensory: Sensation is intact. Motor: Motor function is intact. Psychiatric: Attention and Perception: Attention and perception normal. Mood and Affect: Mood normal. Speech: Speech normal. Behavior: Behavior normal. Thought Content: Thought content normal. Cognition and Memory: Cognition and memory normal. Judgment: Judgment normal. Airway/Sedation Assessment Assessment by anesthesia See anesthesia airway/sedation assessment Mouth Opening OK yes Neck Flexibility OK yes Loose Teeth No Oropharyngeal Classification Grade II ASA PS Classification ASA III - Patient with severe systemic disease Sedation Plan Moderate Risks, benefits, and alternatives discussed with patient. ERAS (Enhanced Recovery After Surgery): ERAS Patient: No Consent: COVID-19 Consent: COVID-19 Risk Consent Surgeon has reviewed cardozo risks related to the risk of alexander COVID-19 and if they contract COVID-19 what the risks are. Noé Sanchez, RN FAMILY PRACTICE-COMMUNICATIONS EQUIPMENT SUPERVISOR documented in this [facility] Work Phone: [phone] History of Present illness Narrative* Bandar Castrejon MD - 10/11/2023 3:30 PM EST Cardiology New Patient History and Physical Reason for referral: CUSTOM FURRIER HPI: Livia Jacobo is a 62 y.o. female who presents today for evaluation of CUSTOM FURRIER PCI of the RCA. Patient is a 62-year-old female history of coronary artery disease. She presented with an SD in June 2023. She was found to have total occlusion of the RCA. She underwent attempted CUSTOM FURRIER PCI in August 2023. This was unsuccessful. She is referred for further evaluation. Echocardiogram with an ejection fraction 65%. Patient denies any chest discomfort. She does admit to dyspnea on exertion and fatigue with exertion. She denies any palpitations, lightheadedness, syncope, orthopnea, PND, lower extremity edema. Past Medical History: She has a past medical history of Coronary artery disease, History of heart attack (07/09/2023), Hypertension, and RLS (restless legs syndrome). Surgical History: She has a past surgical history that includes Coronary angioplasty; Hysterectomy; and Cardiac catheterization (N/A, 09/07/2023). Family History: No family history on file. Allergies: Buspirone, Pregabalin, Sulfa (sulfonamide antibiotics), Tramadol, Adhesive tape- silicones, and Nicotine Social History: Current smoker, no alcohol or drugs. Prior Cardiovascular Testing (personally reviewed): Review of Systems: Review of Systems All other systems reviewed and are negative. Objective Outpatient Medications: Current Outpatient Medications: albuterol 90 mcg/actuation inhaler, Inhale 2 puffs every 4 hours if needed for wheezing., Disp: , Rfl: ALPRAZolam (Xanax) 1 mg tablet, Take 1 tablet (1 mg) by mouth 4 times a day as needed for anxiety.,Disp: , Rfl: amLODIPine (Norvasc) 5 mg tablet, Take 1 tablet (5 mg) by mouth once daily., Disp: , Rfl: aspirin 81 mg EC tablet, Take 1 tablet (81 mg) by mouth once daily., Disp: , Rfl: atorvastatin (Lipitor) 80 mg tablet, Take 1 tablet (80 mg) by mouth once daily., Disp: , Rfl: carvedilol (Coreg) 3.125 mg tablet, Take 1 tablet (3.125 mg) by mouth 2 times a day with meals., Disp: , Rfl: jkxptkbqjxf-bwwvivruh-ohbydylb (Trelegy Ellipta) 100-62.5-25 mcg blister with device, Inhale 1 puffonce daily., Disp: , Rfl: isosorbide mononitrate ER (Imdur) 30 mg 24 hr tablet, Take 1 tablet (30 mg) by mouth once daily. Donot crush or chew., Disp: , Rfl: lamoTRIgine (LaMICtal) 25 mg tablet, Take 3 tablets (75 mg) by mouth once daily., Disp: , Rfl: losartan (Cozaar) 50 mg tablet, Take 2 tablets (100 mg) by mouth once daily., Disp: , Rfl: nitroglycerin (Nitrostat) 0.4 mg SL tablet, Place 1 tablet (0.4 mg) under the tongue every 5 minutes if needed for chest pain., Disp: , Rfl: OLANZapine (ZyPREXA) 5 mg tablet, Take 1 tablet (5 mg) by mouth once daily at bedtime., Disp: , Rfl: QUEtiapine (SEROquel) 400 mg tablet, Take 2 tablets (800 mg) by mouth once daily at bedtime., Disp:, Rfl: ranolazine (Ranexa) 500 mg 12 hr tablet, Take 1 tablet (500 mg) by mouth 2 times a day. Do not crush, chew, or split., Disp: , Rfl: rOPINIRole (Requip) 1 mg tablet, Take 1 tablet (1 mg) by mouth once daily., Disp: , Rfl: ticagrelor (Brilinta) 90 mg tablet, Take 1 tablet (90 mg) by mouth 2 times a day., Disp: , Rfl: traZODone (Desyrel) 100 mg tablet, Take 3 tablets (300 mg) by mouth once daily at bedtime. Takes 3 100mg tabes at bedtime., Disp: , Rfl: venlafaxine XR (Effexor-XR) 150 mg 24 hr capsule, Take 2 capsules (300 mg) by mouth once daily. Do not crush or chew. Takes 2 capsules at bedtime., Disp: , Rfl: Last Recorded Vitals There were no vitals taken for this visit. Physical Exam: Physical Exam Deferred secondary to virtual visit Lab Review: Lab Results Component Value Date GLUCOSE 98 09/07/2023 CALCIUM 9.6 09/07/2023 NA 136 09/07/2023 K 3.9 09/07/2023 CO2 24 09/07/2023 CL 103 09/07/2023 BUN 10 09/07/2023 CREATININE 0.64 09/07/2023 Lab Results Component Value Date WBC 6.0 09/07/2023 HGB 14.4 09/07/2023 HCT 42.3 09/07/2023 MCV 94 09/07/2023 PLT 231 09/07/2023 No results found for: CHOL No results found for: HDL No results found for: LDLCALC No results found for: TRIG No components found for: CHOLHDL No results found for: BNP No results found for: TSH Assessment: 1. CUSTOM FURRIER of the RCA with [id number] collaterals Patient is on reasonable medical therapy including beta-blockade, calcium channel tamika, isosorbide and ranolazine. She is still symptomatic despite 4 antianginal medications. Patient is on aspirin, ticagrelor and high intensity statin therapy. Risks and benefits of CUSTOM FURRIER PCI discussed with the patient. Patient is agreeable to attempted CUSTOM FURRIER PCIof the RCA. This will be done in the near future. Patient will follow-up with Dr. Jansen as previously scheduled. Thank you for allowing us to participate in the care of the patient. Please contact us with any questions or concerns. Bandar Castrejon MD documented in this [facility] Work Phone: [phone] Note* Significant Event - Marianna Tong RN - 09/07/2023 3:14 PM EDT Bilateral groin sites soft and stable with no hematoma or oozing. Pt ambulating ad smitha, denies current needs at this time. Discharge education provided, covered: femoral site care and restrictions, medication education and when to resume them, to call Dr. Jansen's office for follow up, and Angioseal information. Pt states understanding and denies further needs. Ready to discharge to home. T [facility] Work Phone: [phone] Miscellaneous Notes* Significant Event - Marianna Tong RN - 09/07/2023 3:14 PM EDT Bilateral groin sites soft and stable with no hematoma or oozing. Pt ambulating ad smitha, denies current needs at this time. Discharge education provided, covered: femoral site care and restrictions, medication education and when to resume them, to call Dr. Jansen's office for follow up, and Angioseal information. Pt states understanding and denies further needs. Ready to discharge to home. * Significant Event - Marianna Tong RN - 09/07/2023 2:45 PM EDT Pt ambulated down lyles to RR and voided clear/yellow urine. Bilateral groin sites remain soft and stable with no hematoma or oozing. Pt denies needs at this time. * Significant Event - Marianna Tong RN - 09/07/2023 1:33 PM EDT HOB increased to 30 degrees, bilateral groin sites soft and stable with no hematoma or oozing. Pt drinking water/diet pepsi and eating turkey sandwich box. Denies further needs at this time. * Significant Event - Marianna Tong RN - 09/07/2023 1:21 PM EDT Bilateral groin sites soft and stable with no hematoma or oozing. Pt denies needs. * Significant Event - Marianna Tong RN - 09/07/2023 12:39 PM EDT Bilateral groins remain soft and stable with no hematoma or oozing. Pt denies needs. * Significant Event - Marianna Tong RN - 09/07/2023 12:38 PM EDT Upon arrival to room focused assessment performed and WDL. Bilateral groins soft and stable with nohematoma or oozing. Educated Pt on current restrictions d/t bilateral groin sites arterial punctures. Daughters at bedside with her, Pt denies further needs at this time. * Post-Procedure Note - Tiffany Jansen MD - 09/07/2023 12:09 PM EDT Physician Transition of Care Summary Invasive Cardiovascular Lab Procedure Date: 09/07/2023 Attending: * Tiffany Jansen - Primary Resident/Fellow/Other Inspector Shells: Surgeon(s) and Role: Indications: Pre-op Diagnosis * Coronary artery disease [I25.10] Post-procedure diagnosis: Post-op Diagnosis * Coronary artery disease [I25.10] Procedure(s): PCI MYNOR Stent- Coronary 61121 - [place] PRQ TRLUML CORONARY STENT W/ANGIO ONE ART[facility] Procedure Findings: CUSTOM FURRIER of the RCA Description of the Procedure: R femoral 6 Fr. Sheath , L femoral 4 fr Miracle 6 wire, OTW Could not cross the distal cap. Terminated procedure. Complications: none Stents/Implants: Anticoagulation/Antiplatelet Plan: Heparin, angioseal Estimated Blood Loss: 1 mL Anesthesia: Moderate Sedation Anesthesia Staff: No anesthesia staff entered. Any Specimen(s) Removed: Order Name Source Comment Collection Info Order Time COAGULATION SCREEN Blood, Venous Collected By: Enma Moon CPT 09/07/2023 9:33 AM Release result to MyChart Immediate BASIC METABOLIC PANEL Blood, Venous Collected By: Enma Moon CPT 09/07/2023 9:33 AM Release result to MyChart Immediate CBC Blood, Venous Collected By: Enma Moon CPT 09/07/2023 9:33 AM Release result to MyChart Immediate Disposition: Refer to Dr. Blair at [facility] for CUSTOM FURRIER angioplasty. Electronically signed by: Tiffany Jansen MD, 09/07/2023 12:09 PM * Pre-Sedation Documentation - Tiffany Jansen MD - 09/07/2023 11:08 AM EDT Sedation Plan ASA 2 Mallampati class: II. Risks, benefits, and alternatives discussed with patient. documented in this [facility] Work Phone: [phone]) 911-751010-25-2023 Note* Significant Event - Marianna Tong RN - 09/07/2023 2:45 PM EDT Pt ambulated down lyles to RR and voided clear/yellow urine. Bilateral groin sites remain soft and stable with no hematoma or oozing. Pt denies needs at this time. [facility] Work Phone: [phone] Note* Significant Event - Marianna Tong RN - 09/07/2023 1:33 PM EDT HOB increased to 30 degrees, bilateral groin sites soft and stable with no hematoma or oozing. Pt drinking water/diet pepsi and eating turkey sandwich box. Denies further needs at this time. [facility] Work Phone: [phone] Note* Significant Event - Marianna Tong RN - 09/07/2023 1:21 PM EDT Bilateral groin sites soft and stable with no hematoma or oozing. Pt denies needs. [facility] Work Phone: [phone] Note* Significant Event - Marianna Tong RN - 09/07/2023 12:39 PM EDT Bilateral groins remain soft and stable with no hematoma or oozing. Pt denies needs. [facility] Work Phone: [phone] Note* Significant Event - Marianna Tong RN - 09/07/2023 12:38 PM EDT Upon arrival to room focused assessment performed and WDL. Bilateral groins soft and stable with nohematoma or oozing. Educated Pt on current restrictions d/t bilateral groin sites arterial punctures. Daughters at bedside with her, Pt denies further needs at this time. [facility] Work Phone: [phone] Note* Post-Procedure Note - Tiffany Jansen MD - 09/07/2023 12:09 PM EDT Physician Transition of Care Summary Invasive Cardiovascular Lab Procedure Date: 09/07/2023 Attending: * Tiffany Jansen - Primary Resident/Fellow/Other Inspector Shells: Surgeon(s) and Role: Indications: Pre-op Diagnosis * Coronary artery disease [I25.10] Post-procedure diagnosis: Post-op Diagnosis * Coronary artery disease [I25.10] Procedure(s): PCI MYNOR Stent- Coronary 75095 - [place] PRQ TRLUML CORONARY STENT W/ANGIO ONE ART[facility] Procedure Findings: CUSTOM FURRIER of the RCA Description of the Procedure: R femoral 6 Fr. Sheath , L femoral 4 fr Miracle 6 wire, OTW Could not cross the distal cap. Terminated procedure. Complications: none Stents/Implants: Anticoagulation/Antiplatelet Plan: Heparin, angioseal Estimated Blood Loss: 1 mL Anesthesia: Moderate Sedation Anesthesia Staff: No anesthesia staff entered. Any Specimen(s) Removed: Order Name Source Comment Collection Info Order Time COAGULATION SCREEN Blood, Venous Collected By: Enma Moon CPT 09/07/2023 9:33 AM Release result to [facility] Immediate BASIC METABOLIC PANEL Blood, Venous Collected By: Enma Moon CPT 09/07/2023 9:33 AM Release result to [facility] Immediate CBC Blood, Venous Collected By: Enma Moon, [facility] 09/07/2023 9:33 AM Release result to [facility] Immediate Disposition: Refer to Dr. Blair at [facility] for CUSTOM FURRIER angioplasty. Electronically signed by: Tiffany Jansen MD, 09/07/2023 12:09 PM [facility] Work Phone: [phone] Note* Pre-Sedation Documentation - Tiffany Jansen MD - 09/07/2023 11:08 AM EDT Sedation Plan ASA 2 Mallampati class: II. Risks, benefits, and alternatives discussed with patient. [facility] Work Phone: [phone] History and physical note* Tiffany Jansen MD - 09/07/2023 11:06 AM EDT History Of Present Illness Livia Jacobo is a 62 y.o. female presenting with Need for PCI at [facility] for CUSTOM FURRIER.. [facility]mit [facility] for chest pain. Past Medical History Past Medical History: Diagnosis Date Coronary artery disease History of heart attack 07/09/2023 Hypertension RLS (restless legs syndrome) Surgical History Past Surgical History: Procedure Laterality Date CORONARY ANGIOPLASTY HYSTERECTOMY Social History She reports that she has been smoking cigarettes. She has a 21.50 pack-year smoking history. She does not have any smokeless tobacco history on file. She reports that she does not currently use alcohol. She reports that she does not use drugs. Family History No family history on file. Allergies Buspar [buspirone], Lyrica [pregabalin], Nicotine, and Sulfamethoxazole Review of Systems Constitutional: Negative. HENT: Negative. Eyes: Negative. Respiratory: Positive for shortness of breath. Cardiovascular: Positive for chest pain. Gastrointestinal: Negative. Genitourinary: Negative. Musculoskeletal: Negative. Skin: Negative. Neurological: Negative. Hematological: Negative. Psychiatric/Behavioral: Negative. All other systems reviewed and are negative. Physical Exam Vitals reviewed. HENT: Head: Normocephalic. Eyes: Pupils: Pupils are equal, round, and reactive to light. Cardiovascular: Rate and Rhythm: Normal rate. Pulses: Normal pulses. Pulmonary: Effort: Pulmonary effort is normal. Abdominal: General: Abdomen is flat. Musculoskeletal: General: Normal range of motion. Cervical back: Normal range of motion. Skin: General: Skin is warm. Neurological: General: No focal deficit present. Mental Status: She is alert. Last Recorded Vitals Blood pressure 138/75, pulse 95, temperature 36.4 C (97.5 F), temperature source Temporal, resp. rate 18, height 1.549 m (5' 1 ), weight 71.9 kg (158 lb 8.2 oz), SpO2 95 %. 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 Tiffany Jansen MD [facility] Work Phone: [phone] History and physical note* Tiffany Jansen MD - 09/07/2023 11:06 AM EDT History Of Present Illness Livia Jacobo is a 62 y.o. 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 Recentadmit at [facility] for chest pain. Past Medical History Past Medical History: Diagnosis Date Coronary artery disease History of heart attack 07/09/2023 Hypertension RLS (restless legs syndrome) Surgical History Past Surgical History: Procedure Laterality Date CORONARY ANGIOPLASTY HYSTERECTOMY Social History She reports that she has been smoking cigarettes. She has a 21.50 pack-year smoking history. She does not have any smokeless tobacco history on file. She reports that she does not currently use alcohol. She reports that she does not use drugs. Family History No family history on file. Allergies Buspar [buspirone], Lyrica [pregabalin], Nicotine, and Sulfamethoxazole Review of Systems Constitutional: Negative. HENT: Negative. Eyes: Negative. Respiratory: Positive for shortness of breath. Cardiovascular: Positive for chest pain. Gastrointestinal: Negative. Genitourinary: Negative. Musculoskeletal: Negative. Skin: Negative. Neurological: Negative. Hematological: Negative. Psychiatric/Behavioral: Negative. All other systems reviewed and are negative. Physical Exam Vitals reviewed. HENT: Head: Normocephalic. Eyes: Pupils: Pupils are equal, round, and reactive to light. Cardiovascular: Rate and Rhythm: Normal rate. Pulses: Normal pulses. Pulmonary: Effort: Pulmonary effort is normal. Abdominal: General: Abdomen is flat. Musculoskeletal: General: Normal range of motion. Cervical back: Normal range of motion. Skin: General: Skin is warm. Neurological: General: No focal deficit present. Mental Status: She is alert. Last Recorded Vitals Blood pressure 138/75, pulse 95, temperature 36.4 C (97.5 F), temperature source Temporal, resp. rate 18, height 1.549 m (5' 1 ), weight 71.9 kg (158 lb 8.2 oz), SpO2 95 %. 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 Tiffany Jansen MD documented in this [facility] Work Phone: [phone] Evaluation + Plan noteExtracted from: Title:Discharge Note Author:Lisbet POSEY, Rosa Maria Archibald ate:09/02/23 Stable Discharge To, Anticipated II - Home with responsible caregiver Discharged to - Home independently Prescriptions amLODIPine 5 mg Tab, 5 mg= 1 tab(s), Oral, Daily, 1 refills atorvastatin 40 mg Tab, 80 mg= 2 tab(s), Oral, Bedtime Coreg 3.125 mg Tab, 3.125 mg= 1 tab(s), Oral, BID, 1 refills Handicap Lotus, 5 years., See Instructions isosorbide mononitrate 30 mg ER Tab, 30 mg= 1 tab(s), Oral, Daily, 6 refills losartan 100 mg Tab, 100 mg= 1 tab(s), Oral, Daily, 1 refills nitroglycerin 0.4 mg sublingual Tab, 0.4 mg= 1 tab(s), SubLingual, q5min, PRN Ranexa 500 mg Tab-ER, 500 mg= 1 tab(s), Oral, BID ropinirole 1 mg Tab, 1 mg= 1 tab(s), Oral, Daily, 1 refills ticagrelor 90 mg oral tablet, 90 mg= 1 tab(s), Oral, BID, 1 refills Home Albuterol (Eqv-ProAir HFA) 90 mcg/inh inhalation aerosol, 2 puff(s), Inhalation, q4hr alprazolam 1 mg Tab, 1 mg= 1 tab(s), Oral, QID, PRN aspirin 81 mg Oral EC Tab, 81 mg= 1 tab(s), Oral, Daily Effexor XR 150 mg Cap-ER Lamictal 25 mg Tab quetiapine, 400 mg, Oral, qPM traZODONE 100 mg Tab Trelegy Ellipta 100 mcg-62.5 mcg-25 mcg inhalation powder, 1 puff(s), Inhalation, Daily ZyPREXA 5 mg Tab With When Contact Information [address] [place] [address]- Additional Instructions: Cardiac Cath with Intervention scheduled at [facility]- Go to the second floor for check in, park on the second floor parking garage Arrive at 8 am, Procedure Scheduled for 10 am NPO after midnight, OK to take meds with sip of water- be sure to take asa and Brilinta! Call [facility] Cardiology Office, [place], with any questions Dorie Luis In 0 days [address] [place] [address]- Business (2) Additional Instructions: Extracted from: Title:Admission H & P Author:Alec LUTHER DO Date:09/01/23 1. Chest pain (R07.9: Chest pain, unspecified) Cycle cardiac enzymes. Nitroglycerin sublingual as needed. EKG as needed. Will consult cardiology. We will keep patient n.p.o. after midnight for possible heart catheterization. 2. Hypokalemia (E87.6: Hypokalemia) Replete and recheck with morning labs 3. CAD in [place] artery (I25.10: Atherosclerotic heart disease of [place] coronary artery without angina pectoris) We will resume patient's home medications once they have been reconciled. Cardiology consult as noted above. 4. COPD (chronic obstructive pulmonary disease) (J44.9: Chronic obstructive pulmonary disease, unspecified) DuoNeb as needed 5. HTN (hypertension), benign (I10: Essential (primary) hypertension) Resume home medications once reconciled. Hydralazine iv prn. see orders. 6. Anxiety and depression (F41.9: Anxiety disorder, unspecified) Resume home medications once reconciled. 7. RLS (restless legs syndrome) (G25.81: Restless legs syndrome) Resume home medications once reconciled. 8. 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: Other retirement (current) drug therapy) SCD, enoxaparin Orders: acetaminophen, 650 mg = 2 tab(s), Tab, Oral, q6hr PRN Pain, Routine, Start date 09/01/23 22:00:00 EDT, 09/01/23 22:00:00 EDT albuterol-ipratropium, 3 mL, Soln-Inh, Inhalation, QID PRN Dyspnea for 30 day(s), Stop date 10/01/23 21:57:00 EST, Routine, Start date 09/01/23 21:58:00 EDT benzonatate, 100 mg = 1 cap(s), Cap, Oral, TID PRN Cough, Routine, Start date 09/01/23 21:58:00 EDT, 09/01/23 21:58:00 EDT diphenhydrAMINE, 25 mg = 1 cap(s), Cap, Oral, q6hr PRN Itching, Routine, Start date 09/01/23 22:00:00 EDT, 09/01/23 22:00:00 EDT enoxaparin, 40 mg = 0.4 mL, Injection, SubCutaneous, Daily for 30 day(s), Stop date 10/02/23 8:59:00 EST, Routine, Start date 09/02/23 9:00:00 EDT, 09/01/23 22:00:00 EDT hydrALAZINE, 10 mg = 0.5 mL, Injection, IV Push, q6hr PRN Other (see comment), Routine, Start date 09/01/23 22:00:00 EDT, 09/01/23 22:00:00 EDT nitroglycerin, 0.4 mg = 1 tab(s), Tab, SubLingual, q5min PRN Chest pain for 3 dose(s), Stop date Limited # of times, Routine, Start date 09/01/23 22:00:00 EDT, 09/01/23 22:00:00 EDT ondansetron, 4 mg = 2 mL, Injection, IV Push, q6hr PRN Nausea, Routine, Start date 09/01/23 22:00:00 EDT, 09/01/23 22:00:00 EDT promethazine, 12.5 mg = 0.5 mL, Injection, IV Push, q6hr PRN Nausea, Routine, Start date 09/01/23 22:00:00 EDT, 09/01/23 22:00:00 EDT Ambulate with Assistance Basic Metabolic Panel Below the Knee Intermittent Pneumatic Compression Device Cardiac Diet Cardiac Monitoring Chest Pain, AMI Quality Measures Communication Order Consult to Cardiology HgbA1c Intake and Output Magnesium Level Notify Provider Vital Signs Notify Provider Vital Signs NPO Diet Oxygen Protocol Place in Status Precautions Resuscitation Status - Full Saline Lock Convert From IV Smoking Cessation Instruction ANNITA Risk Score Troponin TSH With T4fr Reflex Vital Signs Weight Anticipated stay less than 2 midnights. Patient will be observation status. Extracted from: Title:ED Note Author:Sarah Friedman DO Date :09/01/23 Chest pain (R07.9: Chest kaylie n, unspecified) Hypokalemia (E87.6: Hypokalemia) Orders: nitroglycerin, 0.4 mg = 1 tab(s), Tab, SubLingual, q5min PRN Chest pain for 3 dose(s), Stop date Limited # of times, STAT, Start date 09/01/23 19:05:00 EDT, Hold for SBP < 110, 09/01/23 19:05:00 EDT ondansetron, 4 mg = 2 mL, Injection, IV Push, Once, Stop date 09/01/23 20:38:00 EDT, STAT, Start date 09/01/23 20:38:00 EDT, 09/01/23 20:38:00 EDT potassium bicarbonate, 50 mEq = 2 tab(s), Tab-Eff, Oral, Once, Stop date 09/01/23 20:09:00 EDT, STAT, Start date 09/01/23 20:09:00 EDT, 09/01/23 20:09:00 EDT potassium chloride + Generic Diluent 100 mL, 20 mEq = 100 mL, IV Piggyback, q2hr for 2 dose(s), Stop date 09/02/23 0:08:00 EDT, STAT, Start date 09/01/23 20:09:00 EDT, 50 mL/hr, Infuse over 2 hour(s), 09/01/23 20:09:00 EDT Sodium Chloride 0.9% intravenous solution, 1,000 mL, IV, Stop date 09/01/23 20:18:00 EDT, Start date 09/01/23 20:18:00 EDT Automated Diff Basic Metabolic Panel CBC w/ Auto Diff ED Cardiac Monitoring ED Physician consult Hospitalist for continued care eGFR Extra SST Tube Hepatic Function Panel Magnesium Level Oxygen Saturation Oxygen Therapy PT & PTT Saline Lock Insert Troponin 0 Hr. Troponin 3 Hr. Troponin 6 Hr. Troponin 9 Hr. XR Chest Single View Future Appointments Appointment Date:09/13/2023 03:40:00 PM Scheduled Provider:Fidencio POSEY, Dorie Jean Baptiste Location:[facility] Appointment Type: ER/Hospital Follow Up Appointment Date:10/27/2023 01:45:00 PM Scheduled Provider:Sheila POSEY, Tiffany Chavarria Location[facility] Appointment Type:Cardiology Follow Up (FT) Appointment Date:06/13/2024 11:00:00 AM Scheduled Provider: Location:[facility] Appointment Type: Medicare Wellness Subsequent Future Scheduled Tests Radiology* BD Bone Density DEXA 09/13/22 * MA Mamm Screen w/CAD if perf and 3D Jason 09/13/22 [facility]10-20-2023 NoteAdmission and Discharge Information Admitting Physician - Alec LUTHER DO Consulting Physician - [facility] Cardio, XXXX Admitting Diagnoses: Discharge Diagnoses 1. Chest pain, 09/01/2023 2. Hypokalemia, 09/01/2023 3. CAD in [place] artery, 09/01/2023 4. COPD (chronic obstructive pulmonary disease), 09/01/2023 5. HTN (hypertension), benign, 09/01/2023 6. Anxiety and depression, 09/01/2023 7. RLS (restless legs syndrome), 09/01/2023 8. On deep vein thrombosis (DVT) prophylaxis, 09/01/[address] elevation myocardial infarction (STEMI), 09/01/2023 Chest pain, 09/01/2023 Depression, unspecified, 09/01/2023 Nausea, 09/01/2023 Procedure History PCI - Percutaneous coronary intervention (07/09/2023), Angioplasty, Gallbladder, Hysterectomy. Hospital Course This is a 62-year-old female with multiple comorbidities she is scheduled for high risk left heart cath at [facility] on 09/07/2023. She was seen by cardiology. Ranexa was implemented. She will be discharged with Ranexa. Patient was deemed appropriate discharge home per cardiology. On day of discharge shewas vitally hemodynamically clinically stable. Follow up w/Cardiology Services Consulted Consult to Cardiology (Cardiology Consult) - Ordered -- 09/01/23 21:58:00 EDT, Chest pain, Consult and Co-manage, FT Heart and Vascular Consult to [facility]er [facility]ctor - Ordered -- 09/01/23 22:11:26 EDT Physical Exam Vitals & Measurements T: 36.6 ?C(Axillary) TMIN: 36.3 ?C(Axillary) TMAX: 36.8 ?C(Oral) HR: 90(Monitored) RR: 18 BP: 101/69 SpO2: 91% HT: 61 cm WT: 69.7 kg General: alert, no acute distress Psychiatric: cooperative, affect appropriate for age Neurological: awake, alert, oriented, speech normal Cardiovascular: no overt murmurs Respiratory: no adventitious breath sounds Gastrointestinal: soft NT, NG, NR Extremities: no rash Laboratory Results Automated Diff (09/01/2023) Neutro Auto - 61.4 % Lymph Auto - 29.3 % Stephens Auto - 5.5 % Eos Auto - 3.1 % Basophil Auto - 0.7 % Neutro Absolute - 4.1 E9/L Lymph Absolute - 2.0 E9/L Stephens Absolute - 0.4 E9/L Eos Absolute - 0.2 E9/L Basophil Absolute - 0.0 E9/L BMP (09/02/2023) Glucose Lvl - 105 mg/dL BUN - 7 mg/dL Creatinine - 0.6 mg/dL BUN/Creat Ratio - 12 Sodium Lvl - 136 mmol/L Potassium Lvl - 3.8 mmol/L Chloride - 109 mmol/L CO2 - 23 mmol/L AGAP - 8 mEq/L Calcium Lvl - 8.7 mg/dL CBC w/ Auto Diff (09/01/2023) WBC - 6.8 E9/L RBC - 4.1 E12/L Hgb - 13.1 gm/dL Hct - 38.5 % MCV - 93.5 fL MCH - 31.9 pg MCHC - 34.1 gm/dL RDW - 13.3 % Platelet - 240.0 E9/L MPV - 8.0 fL eGFR (09/02/2023) eGFR - 101 mL/min/1.73 m2 Hemoglobin A1c (09/02/2023) Hgb A1C % - 6.1 % Hepatic Function Panel (09/01/2023) Alk Phos - 136 Int._Unit/L ALT - 20 Int._Unit/L AST - 24 Int._Unit/L Total Protein - 6.9 gm/dL Albumin Lvl - 3.5 gm/dL Globulin - 3.4 gm/dL A/G Ratio - 1.0 Bili Total - 0.1 mg/dL Bili Direct - <0.1 mg/dL Bili Indirect - Unable to Calculate Magnesium Level (09/01/2023) Magnesium - 1.8 mg/dL Mg Level (09/02/2023) Magnesium - 2.0 mg/dL PT & PTT (09/01/2023) PT - 11.5 second(s) INR - 1.0 PTT - 31.9 second(s) Troponin (09/02/2023) Troponin - 8.40 pg/mL Troponin 0 Hr. (09/01/2023) Troponin - 8.20 pg/mL Troponin 3 Hr. (09/01/2023) Troponin - 9.00 pg/mL TSH With T4fr Reflex (09/02/2023) TSH - 0.75 mcIU/mL Tests Performed Automated Diff BMP CBC w/ Auto Diff eGFR Hemoglobin A1c Hepatic Function Panel Magnesium Level Mg Level PT & PTT Troponin Troponin 0 Hr. Troponin 3 Hr. TSH With T4fr Reflex Echo Transthoracic Complete -- Results Pending -- XR Chest Single View Please visit your patient portal for your results or contact your primary care physician. Discharge Plan Patient Discharge Condition Stable Discharge Disposition Discharge To, Anticipated II - Home with responsible caregiver Discharged to - Home independently Discharge Medication List Prescriptions amLODIPine 5 mg Tab, 5 mg= 1 tab(s), Oral, Daily, 1 refills atorvastatin 40 mg Tab, 80 mg= 2 tab(s), Oral, Bedtime Coreg 3.125 mg Tab, 3.125 mg= 1 tab(s), Oral, BID, 1 refills Handicap Placard, 5 years., See Instructions isosorbide mononitrate 30 mg ER Tab, 30 mg= 1 tab(s), Oral, Daily, 6 refills losartan 100 mg Tab, 100 mg= 1 tab(s), Oral, Daily, 1 refills nitroglycerin 0.4 mg sublingual Tab, 0.4 mg= 1 tab(s), SubLingual, q5min, PRN Ranexa 500 mg Tab-ER, 500 mg= 1 tab(s), Oral, BID ropinirole 1 mg Tab, 1 mg= 1 tab(s), Oral, Daily, 1 refills ticagrelor 90 mg oral tablet, 90 mg= 1 tab(s), Oral, BID, 1 refills Home Albuterol (Eqv-ProAir HFA) 90 mcg/inh inhalation aerosol, 2 puff(s), Inhalation, q4hr alprazolam 1 mg Tab, 1 mg= 1 tab(s), Oral, QID, PRN aspirin 81 mg Oral EC Tab, 81 mg= 1 tab(s), Oral, Daily Effexor XR 150 mg Cap-ER Lamictal 25 mg Tab quetiapine, 400 mg, Oral, qPM traZODONE 100 mg Tab Trelegy Ellipta 100 mcg-62. (more content not included)...[facility]:Result Comment: Electronically Signed By: Lisbet POSEY, Rosa Maria\.br\Date and Time Signed: 09/02/23 12:41 [id number] NoteChief Complaint chest pain nausea History of Present Illness Patient is a 62-year-old female with past medical history as noted below comes in with above-statedchief complaint. Patient states that she began to have some left-sided chest pain associated with nausea while at rest. Patient came to the ED for evaluation and was treated with nitroglycerin sublingual with complete resolution of her pain. When I see patient she states that she feels very weak but otherwise is back to her baseline state of health. Of note patient did see cardiology as an outpatient earlier in the day and was referred to have a outpatient heart catheterization. However these arrangements have not been made yet at this time. Patient denies any recent fevers, chills, diarrhea, constipation, headache, vision changes. Review of Systems 14 Systems reviewed and negative except as noted in HPI. Scoring Tyalor Fall Risk Score: 85 High (09/01/23) Physical Exam Vitals & Measurements T: 36.4 ?C(Oral) TMIN: 36.4 ?C(Oral) TMAX: 36.8 ?C(Oral) HR: 82(Peripheral) RR: 18 BP: 91/60 SpO2: 92% HT: 61 cm WT: 69.7 kg General: alert, no acute distress Skin: warm, dry Head: no trauma, normocephalic Neck: Trachea midline, no adenopathy, no tenderness Eye: normal conjunctiva, sclera clear ENMT: oral mucosa moist, no pharyngeal erythema or exudate. hearing grossly intact Cardiovascular: regular rate and rhythm, no murmur/gallop/rub Respiratory: Lungs CTA, respirations non labored , no w/r/r Gastrointestinal: Positive bowel sound, soft, non distended, no tenderness, no guarding. Extremities: no deformity, no trauma Osteopathic: Deferred due to being noncontributory to current case. Neurological: oriented x 4, LOC appropriate for age, CN II-XII intact, motor strength equal & normal bilaterally, sensation equal & normal bilaterally, speech normal Psychiatric: cooperative, affect appropriate for age, normal judgement, normal psychiatric thoughts. Lab Results WBC: 6.8 E9/L (09/01/23 19:24:00) RBC: 4.1 E12/L Low (09/01/23:24:00) HGB: 13.1 gm/dL (09/01/23:24:00) Hct: 38.5 % (09/01/23:24:00) MCV: 93.5 fL (09/01/23:24:00) MCH: 31.9 pg (09/01/23:24:00) MCHC: 34.1 gm/dL (10/19) RDW: 13.3 % (09/01/23:) Platelet: 240 E9/L (09/01/23:) MPV: 8 fL (09/01/23) Neutro Auto: 61.4 % (09/01/23) Lymph Auto: 29.3 % (09/01/23) Stephens Auto: 5.5 % (09/01/23) Eos Auto: 3.1 % (09/01/23) Basophil Auto: 0.7 % (09/01/23) Neutro Absolute: 4.1 E9/L (09/01/23) Lymph Absolute: 2 E9/L (09/01/23) Stephens Absolute: 0.4 E9/L (09/01/23) Eos Absolute: 0.2 E9/L (09/01/23) Basophil Absolute: 0 E9/L (09/01/23) PT: 11.5 second(s) (09/01/23:) INR: 1 (09/01/23) PTT: 31.9 second(s) (09/01/23) Glucose Lvl: 166 mg/dL (09/01/23:) BUN: 8 mg/dL (09/01/23) Creatinine: 0.7 mg/dL (09/01/23) eGFR: 97 mL/min/1.73 m2 (09/01/23) BUN/Creat Ratio: 11 (09/01/23) Sodium Lvl: 131 mmol/L Low (09/01/23) Potassium Lvl: 2.7 mmol/L Critical (09/01/23:) Chloride: 102 mmol/L (09/01/23:) CO2: 21 mmol/L (09/01/23) AGAP: 11 mEq/L (09/01/2324:00) Calcium Lvl: 8.7 mg/dL Low (09/01/2324:00) Alk Phos: 136 Int._Unit/L High (09/01/2324:00) ALT: 20 Int._Unit/L (09/01/23:00) AST: 24 Int._Unit/L (09/01/23:00) Total Protein: 6.9 gm/dL (09/01/23:00) Albumin Lvl: 3.5 gm/dL (09/01/23:00) Globulin: 3.4 gm/dL (09/01/23:) A/G Ratio: 1 Low (09/01/23:) Bili Total: 0.1 mg/dL (09/01/23:) Bili Direct: <0.1 (09/01/23:) Bili Indirect: Unable to Calculate Abnormal (09/01/23:) Magnesium: 1.8 mg/dL (09/01/23:) Troponin: 8.2 pg/mL Low (09/01/23:00) Assessment/Plan 1. Chest pain (R07.9: Chest pain, unspecified) Cycle cardiac enzymes. Nitroglycerin sublingual as needed. EKG as needed. Will consult cardiology. We will keep patient n.p.o. after midnight for possible heart catheterization. 2. Hypokalemia (E87.6: Hypokalemia) Replete and recheck with morning labs 3. CAD in [place] artery (I25.10: Atherosclerotic heart disease of [place] coronary artery without angina pectoris) We will resume patient's home medications once they have been reconciled. Cardiology consult as noted above. 4. COPD (chronic obstructive pulmonary disease) (J44.9: Chronic obstructive pulmonary disease, unspecified) DuoNeb as needed 5. HTN (hypertension), benign (I10: Essential (primary) hypertension) Resume home medications once reconciled. Hydralazine iv prn. see orders. 6. Anxiety and depression (F41.9: Anxiety disorder, unspecified) Resume home medications once reconciled. 7. RLS (restless legs syndrome) (G25.81: Restless legs syndrome) Resume home medications once reconciled. 8. On deep vein throm (more content not included)...[facility] Comment on above:Result Comment: Electronically Signed By: Alec LUTHER DO\Date and Time Signed: 09/01/23 22:27 [id number] Hospital Discharge instructions Follow Up Care 09/01/2023 18:57:28 With:Dorie Luis Address: [address] [place] [address]- Business (2) When:09/13/2023 15:40:00 With:[facility] Address: [address] [place] [address] , [place] [address]- When: Unknown Comments:Cardiac Cath with Intervention scheduled at [facility]- Go to the second floor for check in, park on the second floor parking garageArrive at 8 am, Procedure Scheduled for 10 amNPO after midnight, OK to take meds with sip of water- be sure to take asa and Brilinta!Call [facility] Cardiology Office, [place], with any questions [facility]09-25-2023 Hospital Discharge instructions Follow Up Care 08/08/2023 14:27:10 With:Your clinical care manager Address:Unknown When:08/11/2023 16:03:52 With:Dorie Luis Address: [facility] [place] [address] Business (2) When:Within 3 Day(s) [facility]09-25-2023 Evaluation + Plan noteExtracted from: Title:ED Note Author:Lawrence Elise DO Date:07/16 04/05 Dyspnea (R06.00: Dyspnea, un specified) Nausea (R11.0: Nausea) Orders: Automated Diff B-Type Natriuretic Peptide Basic Metabolic Panel CBC w/ Auto Diff ED Cardiac Monitoring eGFR Extra SST Tube Oxygen Saturation Oxygen Therapy PT & PTT Saline Lock Insert Troponin 0 Hr. Troponin 3 Hr. Troponin 6 Hr. Troponin 9 Hr. XR Chest Single View Future Appointments Appointment Date:08/11/2023 02:20:00 PM Scheduled Provider:Dorie Luis MD Location:[facility] Appointment Type: Open Appointment Date:09/01/2023 01:45:00 PM Scheduled Provider:Tiffany Jansen MD Location[facility] Appointment Type:Cardiology Follow Up (FT) Appointment Date:06/13/2024 11:00:00 AM Scheduled Provider: Location:[facility] Appointment Type: Medicare Wellness Subsequent Future Scheduled Tests Radiology* BD Bone Density DEXA 09/13/22 * MA Mamm Screen w/CAD if perf and 3D Jason 09/13/22 [facility]08-28-2023 Note [id number]:127[facility] Evaluation + Plan noteExtracted from: Title:Discharge Note Author:Rosalinda KHAN MD e:07/10/23 stable home Discharge Diet(s): Fat Modified- 50 gram (07/10/23 10:04:00) Prescriptions amLODIPine 5 mg Tab, 5 mg= 1 tab(s), Oral, Daily, 1 refills atorvastatin 40 mg Tab, 80 mg= 2 tab(s), Oral, Bedtime Coreg 3.125 mg Tab, 3.125 mg= 1 tab(s), Oral, BID, 1 refills Handicap Placard, 5 years., See Instructions losartan 100 mg Tab, 100 mg= 1 tab(s), Oral, Daily, 1 refills nitroglycerin 0.4 mg sublingual Tab, 0.4 mg= 1 tab(s), SubLingual, q5min, PRN ropinirole 1 mg Tab, 1 mg= 1 tab(s), Oral, Daily, 1 refills ticagrelor 90 mg oral tablet, 90 mg= 1 tab(s), Oral, BID Home Albuterol (Eqv-ProAir HFA) 90 mcg/inh inhalation aerosol, 2 puff(s), Inhalation, q4hr alprazolam 1 mg Tab, 1 mg= 1 tab(s), Oral, QID, PRN aspirin 81 mg Oral EC Tab, 81 mg= 1 tab(s), Oral, Daily Effexor XR 150 mg Cap-ER Lamictal 25 mg Tab quetiapine, 400 mg, Oral, qPM traZODONE 100 mg Tab Trelegy Ellipta 100 mcg-62.5 mcg-25 mcg inhalation powder, 1 puff(s), Inhalation, Daily ZyPREXA 5 mg Tab With When Contact Information Dorie Luis In 0 days [address] [place] [address]- [facility] (2) Additional Instructions: Heart Attack, [id number] Extracted from: Title:Admission H & P Author:Bruno CRUZ DO Date:07/09/[address] elevation myocar dial infarction (STEMI) (I21.3: ST elevation (STEMI) myocardial infarction of unspecified site) Patient had ST elevation in the inferior leads, significant ST segment depressions 1 aVL and V2 through V6. Per discussion with Dr. Jansen patient did undergo drug-eluting stent in the left circumflex, right coronary artery was 100% occluded likely chronic there was collateral blood flow. Patient was given 4 baby aspirin prior to arriving in the emergency department. Patient received ticagrelor load of 180 mg. We will continue dual antiplatelets, will initiate high intensity statin, have ordered carvedilol with parameters. Note discussed with Dr. Jansen in light of reduced ejection fraction and receiving diuretic pros versus cons of its institution there was initial discussion of holding off on this is a blood pressure was lower in the [facility] but then had improved. However when evaluating patient at the bedside her blood pressure was 102 we will therefore order for the morning with parameters as to when to hold. Ordered: ticagrelor, 90 mg = 1 tab(s), Tab, Oral, BID, Routine, Start date 07/10/23 9:00:00 EDT, MAINTENACE DOSE, 07/09/23 22:33:00 EDT 2. Acute systolic heart failure (I50.21: Acute systolic (congestive) heart failure) Per Dr. Jansen patient did have an ejection fraction of 40%. Patient was given diuretic. When I was in the room patient urgently had to void advising me this was her second requirement of voiding since receiving Lasix. Suspect this is mild she denied any orthopnea or known peripheral edema ? If after intervention ejection fraction will improve. We will observe and defer if respiratory status remains stable further consideration of diuretics to cardiology. Above regarding beta-blockade. Patient was on losartan at home see below regarding hypertension this would likely be reactive versus REHANA inhibitor defer to judgment of cardiology. 3. Hypokalemia (E87.6: Hypokalemia) Patient had a potassium of 2.9 upon presentation as she was taken urgently to the [facility] this was not replaced. Patient was given Lasix in the [facility] due to above. I therefore gave him an order of 20 mill equivalents potassium intravenously which patient was receiving as I was evaluating her. We will give 40 mill equivalents p.o. Patient's 6-hour troponin is due at approximately 130 we will repeat potassium therefore likely need for further supplementation. Continue to monitor on telemetry. Check a serum magnesium as well. Patient has not been on diuretics at home she did have diarrhea she advised me yesterday. Note with further discussion she states this will occur episodically as she does have IBS she has also had a prior history of cholecystectomy. I have advised her to discuss with the primary care physician therefore follow-up and potassium at home at this episodic loose stool is not unusual for her observe for any recurrence of hypokalemia Ordered: potassium chloride, 40 mEq = 4 cap(s), Cap-ER, Oral, Once, Stop date 07/09/23 23:00:00 EDT, Routine, Start date 07/09/23 23:00:00 EDT, 07/09/23 22:27:00 EDT Electrolyte Panel Magnesium Level 4. Hypertension (I10: Essential (primary) hypertension) Awaiting med reconciliation prior med list included losartan and Norvasc. Was in the room blood pressure was 102. Avoided for carvedilol with acute SD to start in the morning with parameters. Would likely benefit from readdition of losartan versus REHANA inhibitor if blood pressure tolerates. We will hold Norvasc. Defer ultimate antihypertensive regimen in light of above to cardiology 5. Tobacco abuse (Z72.0: Tobacco use) I discussed potential benefit of nicotine though she has significantly reduced her tobacco use over the past few years. She states however she develops a rash from these patches and prefers not to be on nicotine replacement 6. COPD without exacerbation (J44.9: Chronic obstructive pulmonary disease, unspecified) Await med rec she had been on Trelegy and albuterol 7. Chronic lower back pain (M54.50: Low back pain, unspecified) Patient is followed by pain management has had recent injections. Has had prior instrumentation prior documentation suggest also history of compression fracture of L2. Patient implies as prior documentation suggested EMG she had suggested potential dysfunction of the cervical spine but patient states she was seen by Dr. Cruz and no intervention was felt to be necessary. Resume gabapentin once confirmed 8. Irritable bowel syndrome (K58.9: Irritable bowel syndrome without diarrhea) Patient did admit to having 3 large volume loose stools yesterday but she states this will occur episodically is not unusual for her. Should patient have recurrence of diarrhea ? Benefit of cholestyramine versus other agents for IBS to prevent recurrence of hypokalemia. We will observe 9. Restless leg syndrome (G25.81: Restless legs syndrome) Continue Requip 10. Anxiety and depression (F41.9: Anxiety disorder, unspecified) Continue once dose confirmed Seroquel, Lamictal, olanzapine, Effexor 11. Obesity (E66.9: Obesity, unspecified) Above risk factors patient would benefit from weight loss Orders: acetaminophen, 650 mg = 2 tab(s), Tab, Oral, q6hr PRN Pain, Routine, Start date 07/09/23 22:30:00 EDT, 07/09/23 22:30:00 EDT alprazolam, 1 mg = 1 tab(s), Tab, Oral, QID PRN Anxiety, Routine, Start date 07/09/23 22:43:00 EDT, 07/09/23 22:43:00 EDT aspirin, 81 mg = 1 tab(s), Tab-EC, Oral, Daily, Routine, Start date 07/10/23 9:00:00 EDT, 07/09/23 22:30:00 EDT atorvastatin, 80 mg = 2 tab(s), Tab, Oral, Bedtime, Routine, Start date 07/09/23 22:31:00 EDT, 07/09/23 22:31:00 EDT carvedilol, 3.125 mg = 1 tab(s), Tab, Oral, BID, Routine, Start date 07/10/23 9:00:00 EDT, 07/10/23 9:00:00 EDT heparin, 5,000 unit(s) = 1 mL, Injection, SubCutaneous, BID, Routine, Start date 07/10/23 9:00:00 EDT, 07/09/23 22:30:00 EDT lamotrigine, 75 mg = 3 tab(s), Tab, Oral, Bedtime, Routine, Start date 07/09/23 22:44:00 EDT, 07/09/23 22:44:00 EDT nitroglycerin, 0.4 mg = 1 tab(s), Tab, SubLingual, q5min PRN Chest pain for 3 dose(s), Stop date Limited # of times, Routine, Start date 07/09/23 22:30:00 EDT, 07/09/23 22:30:00 EDT olanzapine, 5 mg = 1 tab(s), Tab, Oral, Bedtime, Routine, Start date 07/09/23 22:44:00 EDT, 07/09/23 22:44:00 EDT ondansetron, 4 mg = 2 mL, Injection, IV Push, q6hr PRN Nausea, Routine, Start date 07/09/23 22:30:00 EDT, 07/09/23 22:30:00 EDT potassium chloride + Generic Diluent 100 mL, 20 mEq = 100 mL, Soln-IV, IV Piggyback, Once, Stop date 07/09/23 22:00:00 EDT, Routine, Start date 07/09/23 22:00:00 EDT, 50 mL/hr, Infuse over 2 hour(s) ropinirole, 1 mg = 1 tab(s), Tab, Oral, Daily, Routine, Start date 07/10/23 9:00:00 EDT, 07/09/23 22:45:00 EDT Sodium Chloride 0.9% intravenous solution 250 mL, 250 mL, IV, 20 mL/hr, Other (see comment), Routine, Start date 07/09/23 21:19:00 EDT, 12.5 hour(s), Total volume (mL): 250, 73 kg, 1.77, m2 trazodone, 100 mg = 2 tab(s), Tab, Oral, Bedtime, Routine, Start date 07/09/23 22:45:00 EDT, 07/09/23 22:45:00 EDT venlafaxine, 150 mg = 1 cap(s), Cap-ER, Oral, Bedtime, Routine, Start date 07/09/23 22:46:00 EDT, 07/09/23 22:46:00 EDT Basic Metabolic Panel Cardiac Diet Cardiac Monitoring CBC w/ Auto Diff Chest Pain, AMI Quality Measures Communication Order Communication Order Communication Order Communication Order Consult to Cardiology Elevate Head of Bed Lipid Panel Notify Provider Vital Signs Notify Provider Vital Signs Oxygen Protocol Resuscitation Status - Full Saline Lock Convert From IV Vital Signs Weight Patient is admitted as general inpatient with anticipation she will require greater than 2 midnight stay Extracted from: Title:Consult Note Author:Sheila POSEY, Fe Archibald. Date:07/09/23 CAD: DAPT, beta-tamika, sta tin, risk factor modification. Echo. Admitted to the ICU. Acute ST elevation myocardial infarction (STEMI) (I21.3: ST elevation (STEMI) myocardial infarction of unspecified site) Extracted from: Title:Procedure Note Heart & Vascular Author:Sarwat hazel MD, Tiffany Chavarria Date:07/09/[address] elevation myocardial infarction (STEMI) (I21.3: ST elevation (STEMI) myocardial infarction of unspecified site) Extracted from: Title:ED Note Author:Silver Martinez DO Date :07/09/[address] elevation myocardia l infarction (STEMI) (I21.3: ST elevation (STEMI) myocardial infarction of unspecified site) Orders: heparin, 4,782 unit(s) = 0.96 mL, Injection, IV Push, Once, Stop date 07/09/23 19:44:00 EDT, STAT, Start date 07/09/23 19:44:00 EDT, 07/09/23 19:44:00 EDT Sodium Chloride 0.9% intravenous solution 1,000 mL, 1,000 mL, IV, KVO, STAT, Start date 07/09/23 19:44:00 EDT, Total volume (mL): 1,000, 79.7 kg, 1.86, m2 ticagrelor, 180 mg = 2 tab(s), Tab, Oral, Once, Stop date 07/09/23 19:44:00 EDT, STAT, Start date 07/09/23 19:44:00 EDT, 07/09/23 19:44:00 EDT Automated Diff Basic Metabolic Panel CBC w/ Auto Diff Communication Order Communication Order CV Cardiovascular CV Coronary IVUS FFR Initial CV Coronary IVUS Initial ECG 12 Lead Adult ED Cardiac Monitoring ED Cardiac Monitoring eGFR Oxygen Saturation Oxygen Therapy Place in Status PT & PTT Saline Lock Insert Troponin 0 Hr. Troponin 3 Hr. Troponin 6 Hr. Troponin 9 Hr. XR Chest Single View Future Appointments Appointment Date:08/11/2023 02:20:00 PM Scheduled Provider:Dorie Luis MD Location:[facility] Appointment Type: Open Appointment Date:06/13/2024 11:00:00 AM Scheduled Provider: Location:[facility] Appointment Type: Medicare Wellness Subsequent Future Scheduled Tests Radiology* BD Bone Density DEXA 09/13/22 * MA Mamm Screen w/CAD if perf and 3D Jason 09/13/22 [facility]08-27-2023 Hospital Discharge instructions Patient Education 07/10/2023 10:05:25 Heart Attack, [id number] Heart Attack A heart attack occurs when blood and oxygen supply to the heart is cut off. A heart attack can cause damage to the heart that cannot be fixed. A heart attack is also called a myocardial infarction, or SD. If you think you are having a heart attack, do not wait to see if the symptoms will go away. Get medical help right away. What are the causes? This condition may be caused by: A fatty substance (plaque) in the blood vessels (arteries). This can block the flow of blood to theheart. A blood clot in the blood vessels that go to the heart. The blood clot blocks blood flow. An abnormal heartbeat. Some diseases, such as problems in red blood cells (anemia)orproblems in breathing (respiratory failure). Tightening (spasm) of a blood vessel that cuts off blood to the heart. A tear in a blood vessel of the heart. Other causes may include: Using drugs such as cocaine or methamphetamine. Low blood pressure. What increases the risk? Aging. The risk gets higher as you get older. Having a personal or family history of chest pain, heart attack, stroke, or narrowing of the arteries in the legs, arms, head, or stomach (peripheral vascular disease). Having taken chemotherapy or immune-suppressing medicines. Being male. Being overweight or obese. Having any of these conditions: ?High blood pressure. ?High cholesterol. ?Diabetes. Making lifestyle choices such as: ?Drinking too much alcohol. ?Not getting regular exercise. ?Smoking. What are the signs or symptoms? Chest pain. It may feel like: ?Crushing or squeezing. ?Tightness, pressure, fullness, or heaviness. Pain in the arm, neck, jaw, back, or upper body. Heartburn. Upset stomach (indigestion). Shortness of breath. Feeling like you may vomit (nauseous). Cold sweats. Sudden light-headedness, dizziness, or passing out. Feeling tired. How is this treated? A heart attack must be treated as soon as possible. Treatment may include: Medicines to: ?Break up or dissolve blood clots. ?Thin your blood and help prevent blood clots. ?Treat blood pressure. ?Improve blood flow to the heart. ?Reduce pain. ?Reduce cholesterol. Procedures to widen a blocked artery and keep it open. Open heart surgery. Making your heart strong again (cardiac rehabilitation) through exercise, education, and counseling. Follow these instructions at home: Medicines Take [id number]-[id number] and prescription medicines only as told by your doctor. Do not take these medicines unless your doctor says it is okay: ?NSAIDs, such as ibuprofen, naproxen, or celecoxib. ?Any vitamins or supplements. ?Hormone replacement therapy that has estrogen with or without progestin. If you are taking blood thinners: ?Talk with your doctor before taking any medicines that have aspirin or NSAIDs, such as ibuprofen. ? Take medicines exactly as told. Take them at the same time each day. ?Avoid doing things that could hurt or bruise you. Take action to prevent falls. ?Wear an alert bracelet or carry a card that shows you are taking blood thinners. Lifestyle Do not smoke or use any products that contain nicotine or tobacco. If you need help quitting, ask your doctor. Avoid secondhand smoke. Exercise regularly. Ask your doctor about a cardiac rehab program. Eat heart-healthy foods. Your doctor will tell you what foods to eat. Stay at a healthy weight. Learn ways to lower your stress level. Do not use illegal drugs. Alcohol use Do not drink alcohol if: ?Your doctor tells you not to drink. ?You are , may be , or are planning to become . If you drink alcohol: ?Limit how much you have to: ?0 1 drink a day for women. ?0 2 drinks a day for men. ?Know how much alcohol is in your drink. In the [place] one drink equals one 12 oz bottle of beer (355 mL), one 5 oz glass of wine (148 mL), or one 1 oz glass of hard liquor (44 mL). General instructions Work with your doctor to treat other problems you may have, such as diabetes or high blood pressure. Get screened for depression. Get treatment if needed. Keep your vaccines up to date. Get the flu shot (influenza vaccine) every year. Keep all follow-up visits. Contact a doctor if: You feel very sad. You have trouble doing your daily activities. You get light-headed or dizzy. Get help right away if: You have sudden, unexplained discomfort in your chest, arms, back, neck, jaw, or upper body. You have shortness of breath. You have sudden sweating or clammy skin. You feel like you may vomit or you vomit. You feel tired or weak. You feel your heart beating fast. You feel your heart skipping beats. You have blood pressure that is higher than 180/120. These symptoms may be an emergency. Get help right away. Call your local emergency services (911 int [place] Do not wait to see if the symptoms will go away. Do not drive yourself to the hospital. Summary A heart attack occurs when blood and oxygen supply to the heart is cut off. Do not take NSAIDs unless your doctor says it is okay. Do not smoke. Avoid secondhand smoke. Exercise regularly. Ask your doctor about a cardiac rehab program. This information is not intended to replace advice given to you by your health care provider. Make sure you discuss any questions you have with your health care provider. Document Revised: 04/22/2022 Document Reviewed: 04/22/2022 [employer] Patient Education 2022 T-Quad 22. Follow Up Care 07/09/2023 19:33:14 With:Dorie Luis Address: [address] [place] [address]- Business (2) When: Unknown [facility]08-27-2023 NoteAdmission and Discharge Information Admit Date/Time:07/09/2023 19:33 Admitting Physician - Bruno CRUZ DO Consulting Physician - Sheila POSEY, Tiffany Chavarria Admitting Diagnoses: Discharge Order Date Discharge Patient - Ordered -- 07/10/23 10:09:00 EDT Discharge Diagnoses 1. Acute ST elevation myocardial infarction (STEMI), 07/09/2023 2. Acute systolic heart failure, 07/09/2023 3. Hypokalemia, 07/09/2023 4. Hypertension, 07/09/2023 5. Tobacco abuse, 07/09/2023 6. COPD without exacerbation, 07/09/2023 7. Chronic lower back pain, 07/09/2023 8. Irritable bowel syndrome, 07/09/2023 9. Restless leg syndrome, 07/09/2023 10. Anxiety and depression, 07/09/2023 11. Obesity, 07/09/2023 Chest pain, 07/09/2023 Depression, unspecified, 07/09/2023 Other chronic pain, 07/09/2023 Shortness of breath, 07/09/2023 Procedure History Gallbladder, Hysterectomy. Hospital Course 62-year-old white female with history of hypertension, chronic COPD, hypothyroidism presented to emergency room with acute STEMI. Patient with taken urgently to cardiac cath and angioplasty and stentof the circumflex was done. She was started on aspirin and Brilinta. She was started on Lipitor 80 mg daily. She was started on Coreg 3.125 mg twice daily. She was discharged home in stable condition. She will follow-up with Dr. Sue as outpatient in the next couple weeks. Procedures and Treatment Provided Indication for Surgery Posterior STEMI Preoperative Diagnosis Presumed CAD Postoperative Diagnosis Confirmed CAD status post PCI of the left circumflex with MYNOR x1 primary PCI Operation Coronary angiography Left ventriculography Hemodynamic measurements of the left ventricle Primary PCI of the left circumflex with MYNOR x1 This note is completed immediately following the procedure the date and time of this procedure are the same as this note. Surgeon(s) Tiffany Jansen MD Anesthesia Conscious sedation Estimated Blood Loss Trivial Findings LMT: Normal left main trunk with bifurcation LAD: Normal caliber with mild irregularity and no stenosis, reaches the apex. LCx: Normal caliber with 99% OM1 lateral stenosis, reaches the lateral wall. RCA: Normal caliber with 100% mid stenosis, dominant, reaches the inferior wall. Collaterals from left to right robust. Hemodynamics: Elevated LVEDP at 27 mmHg with no gradient across the aortic valve. Left ventriculography: Abnormal LV systolic function, EF 45 %, inferolateral hypokinesis wall motion abnormalities and normal chamber size with no mitral regurgitation. PCI note: Successful PCI circumflex OM 1 lateral 99% stenosis ANNITA 2.5 flow reduced to 0% residual ANNITA-3 flow after implantation of a Xience 2.5/15 postdilated 2.75 NC at high pressure. Conclusions: Posterior STEMI secondary to left circumflex status post primary PCI with MYNOR x1. Importance of antiplatelet compliance was emphasized including risk of stent thrombosis or . The patient understands as well as his accompanying family member/friend that the patient may have stent thrombosis or heart attack and the patient agrees. I myself have specifically counseled the patient regarding stent thrombosis risk including and the patient will additionally be counseled by the [facility] team and in follow-up. CAD: DAPT, beta-tamika, statin, risk factor modification. Complications None Technique Following full and informed consent the patient was brought to the [facility] where sterile prep and drape were administered in usual fashion. Anesthesia was obtained in the right wrist with lidocaine after administration of conscious sedation. A 5/6 slender Terumo sheath was placed in the right radial artery without complication. Nitroglycerin and nicardipine were given via the sheath and heparin was given intravenously. A 6 Omani XB3.0 catheter was advanced and selectively engaged in the left main coronary artery. A wire was advanced across the lesion of the OM1. The lesion was dilated with a compliant balloon, stented with a drug-eluting stent X 1, and postdilated with a noncompliant balloon at high pressure. Completion angiography was performed in orthogonal projections with the wire and balloon removed. The guide catheter was engaged in the left main coronary artery where selective injections were performed for coronary angiography. 3 DRC catheter was used for angiography the RCA.A pigtail catheter was placed in the left ventricle where hemodynamic measurements the left ventricle were made and a bolus was given for left ventriculography. A pullback gradient was obtained. The sheath was removed with hemostasis obtained by D-Stat radial device at the end of the procedure without complication. [1] Services Consulted Consult to Cardiology - Ordered -- 07/09/23 22:30:00 EDT, Consult and Co-manage, [facility] Consult to [facility]er Connector (S[facility] Connector Consult) - Ordered -- 07/09/23 21:58:49 E (more content not included)...[facility] Comment on above:Result Comment: Electronically Signed By: BILL POSEY, Rosalinda\.br\Date and Time Signed: 07/10/23 10:[id number] [facility] poss PCI via right radial for posterior STEMI Patient seen and examined. The risk/benefits of the procedure were thoroughly discussed with patient including specific attention to lack of onsite surgical backup and risk of alexander covid, and the patient agrees to proceed. Airway Assessment: Class I: Visualization of the soft palate, fauces, uvula, anterior and posteriorpillars Airway Abnormalities: none ASA Classification: ASA 2: Mild systemic disease Risks/Benefits of IV Sedation: Have been explained IV Sedation Plan: Patient agrees to IV sedation plan Assessment/Plan Acute ST elevation myocardial infarction (STEMI) (I21.3: ST elevation (STEMI) myocardial infarctionof unspecified site)[facility]:Result Comment: Electronically Signed By: Sheila POSEY, Tiffany Chvaarria\.br\Date and Time Signed: 07/10/23 03:24 [id number] NoteBasic Information Admit Date/Time:07/09/2023 19:33 Chief Complaint Chest pain History of Present Illness Patient is a very pleasant obese 62-year-old white female with a past medical history significant for hypertension, COPD she has smoked for at least 40 years at 1 pack/day over the past few years shehas reduced her tobacco use, anxiety and depression, patient does have chronic lower back pain is seen by pain management she describes having rods placed prior documentation confirms her history of having lumbar fusion prior documentation reviewed in the chart suggest patient also has history offracture of L2. Patient states she has had EMGs done by Dr. López there was concern about her cervical spine she was referred to Dr. Cruz who did not feel the patient required intervention. Colin t states that she did challenges in getting off opioids that she had been on remotely for her back pain. She denies any history of purposeful substance abuse no significant history of alcohol use. She does have a history of irritable bowel syndrome. Patient presented to the emergency department this evening with below Patient states at approximately 6 PM while lying in bed she had not been recently exertional she began to experience significant chest pressure. She rated as a 10 on a scale of 1-10. She described itas being retrosternal but it did radiate to her left shoulder. She had concomitant shortness of breath and nausea had dry heaves but denied any diaphoresis denied any palpitations. She states she felt weak but did not have any lightheadedness. She presented to the emergency department a STEMI alertwas called she was taken urgently to the [facility] after receiving 4782 units of heparin 180 mg of Brilinta and noting that she had 4 baby aspirin in route to the hospital. Per discussion with Dr. Rylee augustin the culprit lesion was the left circumflex which a drug-eluting stent was placed. I havebeen advised that patient had 100% occlusion of the right coronary artery with collateral flow. Patient's ejection fraction was 40%. Because of her shortness of breath and reduced ejection fraction she was given Lasix 40 mg intravenously in the [facility]. Patient states that her chest discomfort didnot resolve until intervention above and implies her symptoms lasted for greater than 1 hour. With further discussion she does admit over the past 3 weeks having intermittent pressure not always associated with exertion that appeared to be escalating before the intense event this evening. She does a dmit to some recent fatigue over the past several weeks as well as some dyspnea on exertion. She denies any orthopnea she denies any peripheral edema. She did admit to a weight gain but suggest it had been over 6 months denying it being recent it was 20 pounds that she has gained and states that Dr. Sandhu her psychiatrist was considering medication effect. Review of Systems Constitutional: no fever, no chills, no sweats, mild to moderate transient weakness Skin: no Jaundice, no rash, no lesions, nopetechiae ENMT: no ear pain, no sore throat, no congestion, no hoarseness Respiratory: mild shortness of breath, no cough, no orthopnea, no wheezing Cardiovascular: severe chest pain resolved after percutaneous intervention, no palpitations, no edema Gastrointestinal: moderate nausea patient had dry heaves prior to presenting to the emergency department has since resolved, , patient admits to having diarrhea yesterday she described 3 large volumestools that look like bile. She denies any close contacts with any GI illnesses she denies any fevers or chills. She ultimately admitted that she has IBS she has had in the past and cholecystectomy and states periodically she will get episodes of diarrhea and then she will recover. She did not feelthat this event was of a larger volume more intense than when she has cyclically, no GI bleeding Genitourinary: no dysuria, no hematuria, Musculoskeletal: no back pain, no trauma Neurologic: no headache, no dizziness, no numbness, transient weakness Psychiatric: Insomnia, no irritability, anxiety and depression. Heme/Lymph: no bleeding tendency, no bruising tendency, no petechiae, no swollen nodes Allergy/Immunologic: no seasonal allergies, no food allergies, no recurrent infections, no impairedimmunity Additional ROS info: Except as noted in the above Review of Systems and in the History of Present Illness all other systems have been reviewed and are negative or noncontributory. Scoring Taylor Fall Risk Score: 35 (07/09/23) Detailed Depression Screen Score: 6 (07/09/23) Total Depression Screen Score: 8 (07/09/23) Physical Exam Vitals & Measurements T: 36.7 ?C(Oral) HR: 92(Monitored) RR: 11 BP: 112/71 SpO2: 96% HT: 157.48 cm WT: 77.3 kg General: alert, no acute distress. Patient was laying with a head of bed at 30 degrees from the horizontal was alert and oriented, she would periodically be distracted would grimace due to burning with potassium (more content not included)...[facility]Result Comment: Electronically Signed By: Bruno CRUZ DO\.br\Date and Time Signed: 07/09/23 22:49 [id number] Evaluation note* Encounter Date Diagnosis Assessment Notes Treatment Notes Treatment Clinical Notes Apr, Cervical stenosis of spine (ICD-10 - M48.02) Apr, Extremity numbness (ICD-10 - R20.0) Apr, Other chronic pain (ICD-10 - G89.29) I independently reviewed the plain x-ray of the lumbar spine showing abnormal curvature of the spine adjacent to a fused segment at L3-4 L4-5 and L5-S1. It almost appears as though there is erosion of the body and it does not correlate well with the lateral x-ray that I look at. In addition I independently reviewed the MRI of the cervical spine which shows a synovial cyst at C7-T1 with a mild listhesis and probable foraminal stenosis. The patient's pain however is more of a C6 distribution in the bicep region and is adjacent to the bad shoulder pain that she is experiencing much of which is palpable. I do not believe that surgical intervention of this patient's neck is going to help her pain. I am very concerned about her low back which I believe can cause back and leg pain. She is undergoing injections with pain management now. Her last MRI of the lumbar spine was 2020. She has had recent physical therapy over the last 6 months of over 15 sessions with no benefit given the failure of therapy I would like a new updated MRI of the lumbar spine I suspect this problem has progressed from 2020. Patient understands and agrees and will follow-up with the lumbar spine. Apr, Low back pain, unspecified (ICD-10 - M54.50) Apr, Age-related osteoporosis without current pathological fracture (ICD-10 - M81.0) [employer] Other 06-01-2023 Evaluation note* Encounter Date Diagnosis Assessment Notes Treatment Notes Treatment Clinical Notes Apr, Post laminectomy syndrome (ICD-10 - M96.1) Patient reports 50-60% pain relief as well as improved walking, standing and daily functions following procedure. Apr, Lumbosacral spondylosis without myelopathy (ICD-10 - M47.817) 62 year old female here for follow up status post caudal epidural steroid injection under fluoroscopic guidance. Patient reports 50-60% pain relief as well as improved walking, standing and daily functions following procedure. She voices complaints of low back pain with radiation downt he posterior aspect of bilateral extremities to the knees. She feels pain is negatively impacting her daily activities and sleeping pattern. Pertinent imaging of the lumbar spine was reviewed and discussed in detail with the patient which showed significant scoliosis of the spine, slightly progressed disc slippage and degenerative changes of the lumbar spine. Anatomy of spine as well as different treatment options were discussed in detail with patient in regards to patients condition. I recommend we proceed with a bilateral lumbar facet medial branch nerve block under fluoroscopic guidance. Risks and benefits of procedure explained to patient; patient verbalizes understanding. Patient is requesting to start a short-term supply of pain medication to control her pain while with her grandchildren. I will prescribe 1 week supply of [place] to be taken once to twice daily as needed for pain. Apr, Lumbar degenerative disc disease (ICD-10 - M51.36) Continue with current treatment plan. Apr, Chronic pain (ICD-10 - G89.29) Continue with current treatment plan Apr, Sacroiliitis (ICD-10 - M46.1) In the future if the pain persists, we can consider proceeding with a bilateral sacroiliac joint injection under fluoroscopic guidance. Apr, Cervical spondylosis (ICD-10 - M47.812) Pertinent imaging of the cervical spine was reviewed and discussed in detail with the patient which showed advanced arthritis. If her pain persists or worsens, we can consider other interventional options in the future, if applicable. [employer] Other 01-12-2023 Hospital Discharge instructions Patient Education 11/25/2022 16:02:41 BMI for Adults BMI for Adults Body mass index (BMI) is a number that is calculated from a person's weight and height. BMI may help to estimate how much of a person's weight is composed of fat. BMI can help identify those who may be at higher risk for certain medical problems. How is BMI used with adults? BMI is used as a screening tool to identify possible weight problems. It is used to check whether aperson is obese, overweight, healthy weight, or underweight. How is BMI calculated? BMI measures your weight and compares it to your height. This can be done either in [place] ([place] or metric measurements. Note that charts are available to help you find your BMI quickly and easily without having to do these calculations yourself. To calculate your BMI in [place] measurements, your health care provider will: 1.Measure your weight in pounds (lb). 2.Multiply the number of pounds by 703. For example, for a person who weighs 180 lb, multiply that number by 703, which equals 126,540. 3.Measure your height in inches (in). Then multiply that number by itself to get a measurement called inches squared. For example, for a person who is 70 in tall, the inches squared measurement is 70 in x 70 in, which equals 4900 inches squared. 4.Divide the total from Step 2 (number of lb x 703) by the total from Step 3 (inches squared): 126,540 4900 = 25.8. This is your BMI. To calculate your BMI in metric measurements, your health care provider will: 1.Measure your weight in kilograms (kg). 2.Measure your height in meters (m). Then multiply that number by itself to get a measurement called meters squared. For example, for a person who is 1.75 m tall, the meters squared measurement is 1.75 m x 1.75 m, which is equal to 3.1 meters squared. 3.Divide the number of kilograms (your weight) by the meters squared number. In this example: 70 3.1 = 22.6. This is your BMI. How is BMI interpreted? To interpret your results, your health care provider will use BMI charts to identify whether you are underweight, normal weight, overweight, or obese. The following guidelines will be used: Underweight: BMI less than 18.5. Normal weight: BMI between 18.5 and 24.9. Overweight: BMI between 25 and 29.9. Obese: BMI of 30 and above. Please note: Weight includes both fat and muscle, so someone with a muscular build, such as an athlete, may havea BMI that is higher than 24.9. In cases like these, BMI is not an accurate measure of body fat. To determine if excess body fat is the cause of a BMI of 25 or higher, further assessments may needto be done by a health care provider. BMI is usually interpreted in the same way for men and women. Why is BMI a useful tool? BMI is useful in two ways: Identifying a weight problem that may be related to a medical condition, or that may increase the risk for medical problems. Promoting lifestyle and diet changes in order to reach a healthy weight. Summary Body mass index (BMI) is a number that is calculated from a person's weight and height. BMI may help to estimate how much of a person's weight is composed of fat. BMI can help identify those who may be at higher risk for certain medical problems. BMI can be measured using [place]ian measurements or metric measurements. To interpret your results, your health care provider will use BMI charts to identify whether you are underweight, normal weight, overweight, or obese. This information is not intended to replace advice given to you by your health care provider. Make sure you discuss any questions you have with your health care provider. Document Released: 07/12/2005 Document Revised: 10/13/2018 Document Reviewed: 09/13/2018 [employer] Patient Education [address] T-Quad [address] [facility] 10-31-2022 Evaluation + Plan note Future Scheduled Tests Radiology* BD Bone Density DEXA 09/13/22 * MA Mamm Screen w/CAD if perf and 3D Jason 09/13/[address] [facility] Evaluation + Plan note Future Appointments Appointment Date:11/17/2022 04:40:00 PM Scheduled Provider:Dorie Luis MD Location:[facility] Appointment Type: Open Future Scheduled Tests Radiology* BD Bone Density DEXA 09/13/22 * MA Mamm Screen w/CAD if perf and 3D Jason 09/13/[address] [facility] evaluation + Plan note Future Appointments Appointment Date:11/26/2022 01:15:00 PM Scheduled Provider: [facility] Type:EMG Bilateral Upper Extremity Appointment Date:12/02/2022 03:20:00 PM Scheduled Provider:Dorie Luis MD Location:[facility] Appointment Type: Open Future Scheduled Tests Radiology* BD Bone Density DEXA 09/13/22 * MA Mamm Screen w/CAD if perf and 3D Jason [facility]ments Appointment Date:12/01/2022 03:30:00 PM Scheduled Provider: Location:[facility] Appointment Type: Medicare Wellness Initial Appointment Date:12/13/2022 01:00:00 PM Scheduled Provider: [facility] Type:EMG Bilateral Upper Extremity Appointment Date:02/07/2023 03:00:00 PM Scheduled Provider:Dorie Luis MD Location:[facility] Appointment Type: Open Future Scheduled Tests Radiology* BD Bone Density DEXA 09/13/22 * MA Mamm Screen w/CAD if perf and 3D Jason 09/13/[address] [facility] Evaluation + Plan note Future Appointments Appointment Date:08/11/2023 02:20:00 PM Scheduled Provider:Dorie Luis MD Location:[facility] Appointment Type: Open Appointment Date:09/01/2023 01:45:00 PM Scheduled Provider:Tiffany Jansen MD [facility] Appointment Type:Cardiology Follow Up (FT) Appointment Date:06/13/2024 11:00:00 AM Scheduled Provider: Location:[facility] Appointment Type:FM Medicare Wellness Subsequent Future Scheduled Tests Radiology* BD Bone Density DEXA 09/13/22 * MA Mamm Screen w/CAD if perf and 3D Jason [facility]ments Appointment Date:10/27/2023 01:45:00 PM Scheduled Provider:Tiffany Jansen MD Location:[facility] Appointment Type:Cardiology Follow Up (FT) Appointment Date:06/13/2024 11:00:00 AM Scheduled Provider: Location:[facility] Appointment Type: Medicare Wellness Subsequent Future Scheduled Tests Radiology* BD Bone Density DEXA 09/13/22 * MA Mamm Screen w/CAD if perf and 3D Jason [facility]ments Appointment Date:10/13/2023 02:00:00 PM Scheduled Provider:Tiffany Jansen MD Location:[facility] Appointment Type:Cardiology Follow Up (FT) Appointment Date:10/27/2023 01:45:00 PM Scheduled Provider:Tiffany Jansen MD [facility] Appointment Type:Cardiology Follow Up (FT) Appointment Date:10/31/2023 04:00:00 PM Scheduled Provider:[facility]: Open Appointment Date:06/13/2024 11:00:00 AM Scheduled Provider: Location:[facility] Appointment Type: Medicare Wellness Subsequent [facility]ments Appointment Date:10/31/2023 04:00:00 PM Scheduled Provider:Dorie Luis MD Location:[facility] Appointment Type: Open Appointment Date:11/10/2023 01:00:00 PM Scheduled Provider:Tiffany Jansen MD [facility] Appoint[facility] Type:Cardiology Follow Up (FT) Appointment Date:01/06/2024 01:15:00 PM Scheduled Provider:Tiffany Jansen MD [facility] Appointment Type:Cardiology Follow Up (FT) Appointment Date:06/13/2024 11:00:00 AM Scheduled Provider: Location:[facility] Appointment Type:FM Medicare Wellness Subsequent [facility] Future App[facility]ments Appointment Date:01/06/2024 01:15:00 PM Scheduled Provider:Tiffany Jansen MD [facility] Appointment Type:Cardiology Follow Up (FT) Appointment Date:06/13/2024 11:00:00 AM Scheduled Provider: Location:[facility] Appointment Type:FM Medicare Wellness Subsequent Future Scheduled Tests Laboratory* B-Type Natriuretic Peptide 12/01/23 * Basic Metabolic Panel [facility]01/23 [facility] Future Appointments Appointment Date:06/13/2024 11:00:00 AM Scheduled Provider: Location:[facility] Appointment Type:FM Medicare Wellness Subsequent Future Scheduled Tests Laboratory* B-Type Natriuretic Peptide 12/01/23 * Basic Metabolic Panel [facility]01/23 [facility] Future Appointments Appointment Date:06/12/2024 11:00:00 AM Scheduled Provider: Location:[facility] Appointment Type:FM Medicare Wellness Subsequent Appointment Date:06/26/2024 01:20:00 PM Scheduled Provider: Location:[facility] Appointment Type:FM Lab Draw Appointment Date:06/28/2024 02:30:00 PM Scheduled Provider:Amilcar Matthews PA-C [facility] Type:Cardiology Follow Up (FT) Future Scheduled Tests Laboratory* B-Type Natriuretic Peptide 12/01/23 * Basic Metabolic Panel [facility]01/23 [facility] Future Appointments Appointment Date:06/26/2024 01:20:00 PM Scheduled Provider: Location:[facility] Appointment Type:FM Lab Draw Appointment Date:07/04/2024 01:00:00 PM Scheduled Provider:Amilcar Matthews PA-C [facility] Type:Cardiology Follow Up (FT) Appointment Date:10/29/2024 03:30:00 PM Scheduled Provider:Dorie Luis MD Location:[facility] Appointment Type: Open Appointment Date:06/18/2025 02:30:00 PM Scheduled Provider: Location:[facility] Appointment Type: Medicare Wellness Subsequent Future Scheduled Tests Laboratory* B-Type Natriuretic Peptide 12/01/23 * Basic Metabolic Panel 12/01/23 [facility] Evaluation + Plan note Future Appointments Appointment Date:10/03/2024 11:30:00 AM Scheduled Provider:Amilcar Matthews PA-C [facility] Type:Cardiology Follow Up (FT) Appointment Date:10/29/2024 03:30:00 PM Scheduled Provider:Dorie Luis MD Location:[facility] Appointment Type: Open Appointment Date:06/18/2025 02:30:00 PM Scheduled Provider: Location:[facility] Appointment Type: Medicare Wellness Subsequent Future Scheduled Tests Laboratory* B-Type Natriuretic Peptide 12/01/23 * Basic Metabolic Panel 12/01/23 [facility] Evalugnlyn noteNo assessment information [facility] Work Phone: Evaluagwsn noteNo [facility] [employer] Other Evaluation note* Diagnosis Coronary artery disease- Primary Coronary atherosclerosis of unspecified type of vessel, [place] or graft CAD (coronary artery disease) Coronary atherosclerosis of unspecified type of vessel, [place] or graft Angina pectoris, unspecified (CMS/HCC) Coronary artery disease Coronary atherosclerosis of unspecified type of vessel, [place] or graft documented in this encounter [facility] Work Phone: Evaluation note* Diagnosis HTN (hypertension), benign- Primary Essential hypertension, benign 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 (CMS/HCC) documented in this encounter [facility] Work Phone: Evaluation note* Diagnosis Coronary artery disease- Primary Coronary atherosclerosis of unspecified type of vessel, [place] or graft 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 (CMS/HCC) Acute ST elevation myocardial infarction (STEMI) (CMS/HCC) 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 (CMS/HCC) documented in this encounter [facility] Work Phone: History general Narrative - Reported* Type Description Date Medical History hypertension, benign Medical History chronic depression Medical History anxiety Medical History restless leg syndrome Medical History psychiatric disorder Surgical History cholecystectomy Surgical History hysterectomy Surgical History back surgery Hospitalization History See Above [employer] Other Hospital course Narrative No data available for this section [facility] Hospital Discharge instructions No data available for this section [facility] Progress note No data available for this section [facility] Recnoh for referral (narrative) Referred by: Dorie Luis MD Referred by: Dorie uLis MD [facility] Repzfl for referral (narrative)* Consultation (Routine) - Authorized Specialty Diagnoses / Procedures Referred By Ara lares Referred To Contact Cardiac Rehabilitation Diagnoses 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 (CMS/HCC) Acute ST elevation myocardial infarction (STEMI) ([facility]/HCC) Noé Sanchez, HARR[address]ROSIE [address] [place] [address] Referral ID Status Reason Start Date Expiration Date Visits Requested Visits Authorized [id number] Authorized Specialty Services Required 3 10/25/2024 1 1 [facility] Work Phone: Reason for visit [facility] Referral Update [employer] Other Summary Purpose Family History No Family History Records FoundNo Family History Records Found No data available for this section No data available for this section No data available for this section No Family History Records Found No data available for this section No Family History Records FoundNo Family History Records Found No data available for this section No data available for this section No Family History Records FoundNo Family History Records FoundNo Family History Records FoundNo Family History Records FoundNo Family History Records FoundNo Family History Records FoundNo Family History Records Found No data available for this section No Family History Records FoundNo Family History Records FoundNo Family History Records Found No data available for this section No Family History Records FoundNo Family History Records Found No data available for this section No data available for this section No Family History Records FoundNo Family History Records FoundNo Family History Records FoundNo Family History Records FoundNo Family History Records FoundNo Family History Records FoundNo Family History Records FoundNo Family History Records Found No data available for this section No Family History Records Found Advance Directives No Advanced Directives Records Found Advance Directive Response Recorded Date/ Time Advance Directives No January 27, 12:08pm Latest Code Status on File Code Status Date Activated Date Inactivated Comments Full Code 09/07/2023 9:33 AM Question Answer Comments Plan of Care: Code Status Discussion Completed Decision Maker: Patient Latest Code Status on File Code Status Date Activated Date Inactivated Comments Full Code 09/07/2023 9:33 AM 09/07/2023 5:23 PM Question Answer Comments Plan of Care: Code Status Discussion Completed Decision Maker: Patient Latest Code Status on File Code Status Date Activated Date Inactivated Comments Full Code 09/07/2023 9:33 AM 09/07/2023 5:23 PM Question Answer Comments Plan of Care: Code Status Discussion Completed Decision Maker: Patient Chief Complaint and Reason for Visit Chief Complaint r20.0 r29.6 r29.2 Chief Complaint r20.0 r29.6 r29.2 m48.02 m81.0 Chief Complaint m48.02 m81.0 M54.50 Reason for Referral Reason *FU 05/31 Scoliosi s, back and leg pain Diagnosis 1 Cervical stenosis of spine (M48.02) Diagnosis 2 Lumbosacral spondylo sis without myelopathy (M47.817) Diagnosis 3 Scoliosis of lumbar spine, unspecified scoliosis type (M41.9) Referral Organization [facility] Referring Provider First Name Jose Referring Provider Last Name Anthony Referring Provider Specialty Neurologica l Surgery Referred Organization [facility] Referred Provider Keith Gimenez Referred Address [address] [place], [place],[address] Referred Provider Specialty ORTHOPEDIC S BRITTANYEON Referral Priority Routine General Notes Yoli Guerrier 023 12:00:50 PM >Received today and waiting for office notes to be locked before sending referral Ciara Mason 05/16/2023 09:26:41 AM >waiting for notes to be locked Yoli Guerrier 05/24/2023 01:39:46 PM >Office notes are locked. Received today and referral was fax to [facility] with their form. They will call patient and schedule. Clinical Notes Referral Line Reason *Waiting for appt Own the bone Diagnosis 1 Age-related osteopor osis without current pathological fracture (M81.0) Referral Organization [facility] urosurger Referring Provider First Name Jose Referring Provider Last Name Anthony Referring Provider Specialty Neurologica l Surgery Referred Organization [facility] Referred Provider Sindhu Ennis Referred Address [address] [facility],[address] Referred Provider Specialty Nurse Obi barclay Referral Priority Routine General Notes Yoli Guerrier 023 10:29:36 AM >Received today and sent P2P Ciara Mason 05/16/2023 09:22:46 AM >waiting for notes to be locked Ciara Mason 05/18/2023 01:10:24 PM >waiting for notes to be locked Francy Rick 05/18/2023 03:33:36 PM >NO APPT YET Additional Source Comments INFORMATION SOURCE (unrecogn ized section and content) DATE CREATED AUTHOR 09/14/2022 [facility] DATE CREATED AUTHOR AUTHOR'S ORGANIZ ATION 03/24/2023 [facility] DATE CREATED AUTHOR AUTHOR'S ORGANIZ ATION 10/14/2023 [facility] DATE CREATED AUTHOR AUTHOR'S ORGANIZ ATION 10/29/2023 [facility] DATE CREATED AUTHOR AUTHOR'S ORGANIZ ATION 10/30/2023 [facility] DATE CREATED AUTHOR AUTHOR'S ORGANIZ ATION 03/13/2024 [facility] DATE CREATED AUTHOR AUTHOR'S ORGANIZ ATION 05/16/2024 Almeida Douglas [facility] DATE CREATED AUTHOR AUTHOR'S ORGANIZ ATION 05/17/2024 Almeida [place] [facility] DATE CREATED AUTHOR AUTHOR'S ORGANIZ ATION 06/03/2024 [facility] DATE CREATED AUTHOR AUTHOR'S ORGANIZ ATION 06/15/2024 Almeida Douglas [facility] DATE CREATED AUTHOR AUTHOR'S ORGANIZ ATION 07/23/2024 [facility] DATE CREATED AUTHOR AUTHOR'S ORGANIZ ATION 08/13/2024 Almeida [place] [facility] DATE CREATED AUTHOR AUTHOR'S ORGANIZ ATION 08/14/2024 Almeida [place] [facility] DATE CREATED AUTHOR AUTHOR'S ORGANIZ ATION 08/31/2024 Almeida [place] [facility] Patient Care team informatio n (unrecognized section and content) Team Status: Active Member Role Status Dates Dorie Luis MD Primary Care Provider Active Team Status: Active Member Role Status Dates Dorie Luis MD Primary Care Provider Active Harjeet Hernández MD Attending Provider Active Team Status: Inactive Member Role Status Dates Dorie Luis MD Primary Care Provider Active Jose Cruz MD Attending Provider Active Team Status: Inactive Member Role Status Dates Dorie Luis MD Primary Care Provider Active Elsy López MD Attending Provider Active Maintenance And Operations Supervisor Relationship Specialty Start Date End Date Dorie Luis MD [address] [facility] [place] [address] PCP - General Family Medicine 09/07/23 Maintenance And Operations Supervisor Relationship Specialty Start Date End Date Dorie Luis MD [address] [facility] [place] [address] PCP - General Family Medicine 09/07/23 Maintenance And Operations Supervisor Relationship Specialty Start Date End Date Dorie Luis MD [address] [facility] [place] [address] PCP - General Family Medicine 09/07/23 Maintenance And Operations Supervisor Relationship Specialty Start Date End Date Dorie Luis MD [address] [facility] [place] [address] PCP - General Family Medicine 09/07/23 Maintenance And Operations Supervisor Relationship Specialty Start Date End Date Dorie Luis MD [address] [facility] [place] [address] PCP - General Family Medicine 09/07/23 Goals (unrecognized section and content) Goals may be documented in a n alternate section REASON FOR VISIT (unrecogniz ed section and content) Specialty Diagnoses / Procedures Referred By Ara t Referred To Contact Diagnoses Coronary artery disease Coronary artery disease [I25.10] Procedures AK PRQ TRLUML CORONARY STENT W/ANGIO ONE ART/BRNCH PCI MYNOR Stent- Coronary Tiffany Jansen MD [address] [place] [address] [address] [place] [address] Referral ID Status Reason Start Date Expiration Date Visits Re quested Visits Authorized [id number] 1 1 Reason Comments Coronary Artery Disease history of [place] Hypertension Referred by Juan Pablo Lares itus for PCI CUSTOM FURRIER RCA Specialty Diagnoses / Procedures Referred By Ara lares Referred To Contact Diagnoses 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 (CMS/HCC) 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 (CMS/HCC) [I25.112] Procedures PCI MYNOR Stent- PCI CUSTOM FURRIER RCA ([id number]) Bandar Castrejon MD [address] [facility] 3, [facility] [address] [place] [address] [address] [place] [address] Referral ID Status Reason Start Date Expiration Date Visits Re quested Visits Authorized [id number] 1 1 Scheduled Active and Recently Administ ered Medications (unrecognized section and content) Medication Order 09/05/2023 09/06/2023 09/07/2023 aspirin chewable tablet 243 mg (COMPLETED) 243 mg, oral, Once, On Tue09/07/23 at 0830, For 1 dose 0838 (Given - Provid er: Marianna Tong RN) Continuous Medication Order 09/05/2023 09/06/2023 09/07/2023 sodium chloride 0.9% infusion (CANCELED) 100 mL/hr, intravenous, Continuous, Starting on Tue09/07/23 at 0830 0838 (New Bag - Prov ider: Marianna Tong RN)0932 (Due: Stopped - Provider: Tiffany Jansen MD) sodium chloride 0.9% infusion 100 mL/hr, intravenous, Continuous, Starting on Tue09/07/23 at 0945, Preprocedure 0945 (Due) PRN Medication Order 09/05/2023 09/06/2023 09/07/2023 fentaNYL PF (Sublimaze) injection (CANCELED) As needed, Starting on Tue09/07/23 at 1123, Intraprocedure 1123 (Given - Provid er: Aureliano Tamayo RN - Comment: sedation) lidocaine (Xylocaine) 20 mg/mL (2 %) injection (CANCELED) As needed, Starting on Tue09/07/23 at 1124, Intraprocedure 1124 (Given - Provid er: Tiffany Jansen MD - Comment: left groin)1125 (Given - Provider: Tiffany Jansen MD - Comment: right groin) midazolam (Versed) injection (CANCELED) As needed, Starting on Tue09/07/23 at 1123, Intraprocedure 1123 (Given - Provid er: Aureliano Tamayo RN - Comment: sedation) nitroglycerin (Tridil) injection (CANCELED) As needed, Starting on Tue09/07/23 at 1134, Intraprocedure 1134 (Given - Provid er: Tiffany Jansen MD) PRN Medication Order 10/24/2023 10/25/2023 10/26/2023 fentaNYL PF (Sublimaze) injection (CANCELED) As needed, Starting on Tue10/26/23 at 1133, Intraprocedure 1133 (Given - Provid er: Sherry Vides RN)1141 (Given - Provider: Sherry Vides RN - Comment: for procedural sedation)1304 (Given - Provider: Sherry Vides RN)1320 (Given - Provider: Sherry Vides RN) heparin 1,000 unit/mL injection (CANCELED) As needed, Starting on Tue10/26/23 at 1207, Intraprocedure 1207 (Given - Provid er: Renate David RN - Comment: for anticoagulation verified by MD) iohexol (OMNIPaque) 350 mg iodine/mL solution (CANCELED) As needed, Starting on Tue10/26/23 at 1331, Intraprocedure 1331 (Given - Provid er: Bandar Castrejon MD) lidocaine (Xylocaine) 20 mg/mL (2 %) injection (CANCELED) As needed, Starting on Tue10/26/23 at 1138, Intraprocedure 1138 (Given - Provid er: Bandar Castrejon MD - Comment: right radial for anesthetic)1148 (Given - Provider: Bandar Castrejon MD - Comment: R fem for anesthetic)1200 (Given - Provider: Bandar Castrejon MD - Comment: left fem for anesthetic) midazolam (Versed) injection (CANCELED) As needed, Starting on Tue10/26/23 at 1133, Intraprocedure 1133 (Given - Provid er: Sherry Vides RN) midazolam (Versed) injection (CANCELED) As needed, Starting on Tue10/26/23 at 1158, Intraprocedure 1158 (Given - Provid er: Renate David RN - Comment: for procedural sedation) midazolam PF (Versed) injection (CANCELED) As needed, Starting on Tue10/26/23 at 1141, Intraprocedure 1141 (Given - Provid er: Sherry Vides RN - Comment: for procedural sedation)1303 (Given - Provider: Sherry Vides RN) nitroglycerin (Tridil) injection (CANCELED) As needed, Starting on Tue10/26/23 at 1306, Intraprocedure 1306 (Given - Provid er: Bandar Castrejon MD) oxygen (O2) therapy (COMPLETED) Continuous PRN, Starting on Tue10/26/23 at 1132, Intraprocedure 1132 (New Bag - Prov ider: Sherry Vides RN - Comment: for procedure) sodium chloride 0.9% infusion (COMPLETED) Continuous PRN, Starting on Tue10/26/23 at 1132, Intraprocedure 1132 (New Bag - Prov ider: Sherry Vides RN - Comment: for procedure) FOR RECORDS PERTAINING TO PATIENTS WHO ARE OR HAVE BEEN ENROLLED IN A CHEMICAL DEPENDENCY/SUBSTANCEABUSE PROGRAM, SOME INFORMATION MAY BE OMITTED. This clinical summary was aggregated from multiple sources. Caution should be exercised in using it in the provision of clinical care. This summary normalizes information from multiple sources, and as a consequence, information in this document may materially change the coding, format and clinical context of patient data. In addition, data may be omitted in some cases. CLINICAL DECISIONS SHOULD BE BASED ON THE PRIMARY CLINICAL RECORDS. [employer] provides no warranty or guarantee of the accuracy or completeness of information in this document.
--- NOTE | 2024-09-29 09:17 | XR_ITS ---
The [address] [address] Patient Name: ELLA JACOBO MRN: [id number] date: 1960 Sex: F Assigned Patient Location: ER Current Patient Location: ER Accession/Order Number: [id number] Exam Date: 09/29/2024 09:32 Report Date: 09/29/2024 10:20 At the request of: ANH JAY Procedure: XR chest 1V FRONTAL CHEST; 09/29/2024 9:32 AM EST Clinical History:sob Comparison: 10/30/2023 . AP portable upright film. No apparent change osseous structures. No change cardiac and mediastinal silhouettes or aleah. No failure pattern or pleural effusion. Again, slight increased markings near the left heart border. These were also present on a chest CT of 12/30/2023. Peribronchial thickening, atelectasis or perhaps scarring. XR/XR chest 1V IMPRESSION: 1. No failure pattern. Electronically authenticated by: YAKOV CHAPA Date: 09/29/2024 10:20
--- NOTE | 2024-09-29 09:17 | ECG_ITS ---
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
--- NOTE | 2024-09-29 09:18 | ED_ITS ---
HPI - SOB/Dyspnea General Chief Complaint: Shortness of Breath/Dyspnea Stated Complaint: SOB Time Seen by Provider: 09/29/24 09:00 Source: patient Mode of arrival: ambulance Limitations: no limitations History of Present Illness HPI Narrative: The patient is coming to us with 2 days history of increasing back pain, as a baseline the patient have a chronic back pain that she according to her have incontinence of stool with it and this is a chronic problem since she had surgery, the patient is complaining that for the last 2 days she started having some right sided back pain and then it went to be bilateral back pain today morning, she mentioned that the pain was associated with shortness of breath when walking because she had to make an effort because of the pain to get to the phone to call the EMS The patient denies any chest pain at the moment of shortness of breath she mentioned that she have history of coronary artery disease Patient is complaining of bilateral toe numbness that is also new She denies any fall or trauma she also denies any nausea vomiting chest pain or any abdominal pain It was noted that the patient blood pressure was issued to control according to the daughter her blood pressure was overcontrolled at certain point and they had to stop her blood pressure medication Related Data Home Medications ?Medication ?Instructions ?Recorded ?Confirmed albuterol sulfate 90 mcg/actuation 2 puff inhalation Q4H PRN 03/26/24 09/29/24 aerosol inhaler shortness of breath or wheezing alprazolam 1 mg tablet 1 mg PO QID 03/26/24 09/29/24 atorvastatin 80 mg tablet 80 mg PO DAILY 03/26/24 09/29/24 budesonide 160 mcg-glycopyr 9 2 inh inhalation BID 03/26/24 09/29/24 mcg-formot 4.8 mcg/actuation HFA inhaler (Breztri Aerosphere) carvedilol 3.125 mg tablet 6.25 mg PO BID 03/26/24 09/29/24 isosorbide mononitrate 30 mg 30 mg PO DAILY 03/26/24 09/29/24 tablet,extended release 24 hr lamotrigine 25 mg tablet 75 mg PO BEDTIME 03/26/24 09/29/24 nitroglycerin 0.4 mg sublingual 0.4 mg sublingual Q5M PRN chest 03/26/24 09/29/24 tablet pain olanzapine 5 mg tablet 5 mg PO BEDTIME 03/26/24 09/29/24 quetiapine 100 mg tablet 100 mg PO BEDTIME 03/26/24 09/29/24 ropinirole 1 mg tablet 1 mg PO DAILY 03/26/24 09/29/24 trazodone 100 mg tablet 300 mg PO BEDTIME PRN sleep 03/26/24 09/29/24 venlafaxine 150 mg 300 mg PO BEDTIME 03/26/24 09/29/24 capsule,extended release 24 hr prasugrel 10 mg tablet 10 mg PO DAILY 09/29/24 09/29/24 Previous Rx's ?Medication ?Instructions ?Recorded amoxicillin 875 mg-potassium 1 tab PO Q12H 10 days #20 tabs 03/26/24 clavulanate 125 mg tablet benzonatate 100 mg capsule 200 mg (2 x 100 mg) PO TID PRN 03/26/24 cough #20 caps hpswsitaufinkjt-xkivbhaiuqloack-KM 10 ml PO Q6H PRN cold symptoms 03/26/24 2 mg-30 mg-10 mg/5 mL oral syrup #200 mL (Bromfed DM) Allergies Allergy/AdvReac Type Severity Reaction Status Date / Time buspirone (From BuSpar) Allergy Severe Migraine Verified 09/29/24 13:26 pregabalin (From Lyrica) AdvReac Severe Confusion Verified 09/29/24 13:26 bacitracin AdvReac Unknown Unknown Verified 09/29/24 13:26 Review of Systems ROS Status of ROS 10 or more systems reviewed and unremark able except as noted in history and below [facility] History (Updated 09/29/24 @ 14:55 by Vivian Mistry MD) Panic attack ?F41.0 - Panic disorder [episodic paroxysmal anxiety] (ICD-10) Panic attack ?F41.0 - Panic disorder [episodic paroxysmal anxiety] (ICD-10) Neuropathy ?G62.9 - Polyneuropathy, unspecified (ICD-10) COPD (chronic obstructive pulmonary disease) ?J44.9 - Chronic obstructive pulmonary disease, unspecified (ICD-10) Anxiety ?F41.9 - Anxiety disorder, unspecified (ICD-10) Hypertension ?I10 - Essential (primary) hypertension (ICD-10) Surgical History (Updated 09/29/24 @ 14:20 by Karla Wallace RN) H/O: hysterectomy ?Z90.710 - Acquired absence of both cervix and uterus (ICD-10) History of lumbar fusion ?Z98.1 - Arthrodesis status (ICD-10) H/O heart artery stent ?Z95.5 - Presence of coronary angioplasty implant and graft (ICD-10) History of cholecystectomy ?Z90.49 - Acquired absence of other specified parts of digestive tract (ICD- 10) Social History Little interest or pleasure in doing things: not at all Feeling down, depressed, or hopeless: not at all Exam Narrative Exam Narrative: Nurses notes and vital signs reviewed and patient is not hypoxic. General: Well-appearing and in no apparent distress. Skin: Warm, dry, no pallor noted. No rash. Head: Normocephalic, atraumatic. Neck: Supple, non-tender. Eye: Pupils are equal, round and EOMI. No scleral icterus. Ears, Nose, Mouth, and Throat: TM are clear, no nasal mucosal hypertrophy. Oral mucosa is moist, no posterior oropharynx erythema, uvula is mid-line Cardiovascular: Regular Rate and Rhythm without murmur, gallop or rub. Respiratory: No accessory muscle use or respiratory distress. Lungs are clear to auscultation, no wheezing, rales or rhonchi Chest Wall: no tenderness Back: No midline thoracic or lumbar vertebral tenderness. No CVA tenderness Musculoskeletal: normal ROM, no calf or popliteal tenderness, no lower extremity edema/swelling GI: Abdomen is soft, non-distended. Normal bowel sounds. No masses appreciated. No tenderness to palpation. No rebound, guarding, or rigidity noted. Neurological: A&O x4. No cranial nerve dysfunction observed mild weakness in the left side when lifting her leg mostly secondary to pain. Psychiatric: Cooperative and interactive. Normal mood and affect. Constitutional Vital Signs, click to edit/add: Last Vital Signs Temp 98.6 F 09/29/24 09:01 Pulse 80 09/29/24 14:14 Resp 18 09/29/24 14:14 BP 178/102 H 09/29/24 14:14 Pulse Ox 95 09/29/24 14:14 O2 Del Method Room Air 09/29/24 14:14 Course Vital Signs Vital signs: Vital Signs Temperature 98.6 F 09/29/24 09:01 Pulse Rate 87 09/29/24 09:01 Respiratory Rate 16 09/29/24 09:01 Blood Pressure 190/110 H 09/29/24 09:01 Pulse Oximetry 93 L 09/29/24 09:01 Oxygen Delivery Method Room Air 09/29/24 09:01 Temperature 98.6 F 09/29/24 09:01 Pulse Rate 80 09/29/24 14:14 Respiratory Rate 18 09/29/24 14:14 Blood Pressure 178/102 H 09/29/24 14:14 Pulse Oximetry 95 09/29/24 14:14 Oxygen Delivery Method Room Air 09/29/24 14:14 MDM - SOB/Dyspnea MDM Narrative Medical decision making narrative: I could not induce the pain with palpation and ablation blood pressure was noted to be elevated around 200 The patient EKG in the ER showing sinus rhythm with a heart rate of 84 and there is some ST depression that was noted in previous EKG in lead V6. Patient also have ST depression in leads V4 and V5 Upon arrival it was noted that the patient blood pressure was elevated and her daughter at the bedside mentioned that she had been having issues controlling her blood pressure at she had most of her blood pressure medication started by her goodwill ambassador because her blood pressure was low at certain time. The patient is having this back pain that is exacerbated more than her baseline and with her presentation of elevated blood pressure his CBC and chemistry showed no acute pathology CT angio of the abdomen showed that the patient have have abdominal aorta pathology and that finding was discussed thoroughly with Dr. Moe and vascular service and he mentioned that the patient presentation right now is not related to this pathology but the patient definitely need extensive blood pressure control The patient blood pressure initially was controlled with pain medication morphine and then hydralazine 10 mg. She was also provided with her anxiety medication The patient will be admitted for observation for blood pressure control as well as control of her back pain that is preventing her from ambulating regularly at the moment But the CAT scan did not show any acute finding that is alarming and would require surgery at the moment as well Patient case was discussed with and she agreed with above-mentioned plan Lab Data Labs: Lab Results 09/29/24 09/29/24 09/29/24 Range/Units 09:28 09:46 11:23 WBC 5.1 (4.0-11.0) 10^3/uL RBC 4.45 (4.20-5.40) 10^6/uL Hgb 14.7 (12.0-16.0) g/dL Hct 41.9 (36.0-48.0) % MCV 94.2 (81.0-99.0) fL MCH 33.0 (26.7-34.0) pg MCHC 35.1 (29.9-35.2) g/dL RDW 12.9 (11.0-15.0) % Plt Count 203 (150-450) 10^3/uL MPV 9.5 (9.5-13.5) fL Neut % (Auto) 58.1 (43.0-75.0) % Lymph % (Auto) 29.6 (20.5-60.0) % Centre % (Auto) 10.1 (1.7-12.0) % Eos % (Auto) 1.4 (0.9-7.0) % Baso % (Auto) 0.6 (0.2-2.0) % Neut # (Auto) 3.0 (1.4-6.5) 10^3/uL Lymph # (Auto) 1.5 (1.2-3.8) 10^3/uL Centre # (Auto) 0.5 (0.3-0.8) 10^3/uL Eos # (Auto) 0.1 (0.0-0.7) 10^3/uL Baso # (Auto) 0.0 (0.0-0.1) 10^3/uL Abs Immat Gran (auto) 0.01 (0.00-0.03) 10^3/uL Imm/Tot Granulo (auto) 0.2 (0.0-0.5) % PT 10.5 (9.0-11.6) sec INR 0.99 Sodium 142 (136-145) mmol/L Potassium 3.2 L (3.5-5.1) mmol/L Chloride 106 (98-107) mmol/L Carbon Dioxide 25.1 (21.0-32.0) mmol/L Anion Gap 14.1 BUN 8.0 (7.0-18.0) mg/dL Creatinine 0.73 (0.55-1.02) mg/dL Est GFR ( Amer) >60 (>=60 mL/min/1.73m^2) Est GFR (Non-Af Amer) >60 (>=60 mL/min/1.73m^2) BUN/Creatinine Ratio 11.0 Glucose 107 H (74-106) mg/dL Calcium 9.0 (8.5-10.1) mg/dL Total Bilirubin 0.5 (0.2-1.0) mg/dL AST 12 L (15-37) U/L ALT 11 L (14-59) U/L Alkaline Phosphatase 111 (46-116) U/L Troponin I High Sens 11.7 10.6 (4.0-51.3) pg/mL Total Protein 6.8 (6.4-8.2) g/dL Albumin 3.3 L (3.4-5.0) g/dL Globulin 3.5 g/dL Albumin/Globulin Ratio 0.9 Urine Color (YELLOW) Urine Clarity (CLEAR) Urine pH (5.0-9.0) Ur Specific [place] (1.005-1.025) Urine Protein (NEG/TRACE) mg/dL Urine Glucose (UA) (NEGATIVE) mg/dL Urine Ketones (NEGATIVE) mg/dL Urine Occult Blood (NEGATIVE) Urine Nitrite (NEGATIVE) Urine Bilirubin (NEGATIVE) Urine Urobilinogen (0.2-1.0) EU/dL Ur Leukocyte Esterase (NEGATIVE) 09/29/24 Range/Units 11:52 WBC (4.0-11.0) 10^3/uL RBC (4.20-5.40) 10^6/uL Hgb (12.0-16.0) g/dL Hct (36.0-48.0) % MCV (81.0-99.0) fL MCH (26.7-34.0) pg MCHC (29.9-35.2) g/dL RDW (11.0-15.0) % Plt Count (150-450) 10^3/uL MPV (9.5-13.5) fL Neut % (Auto) (43.0-75.0) % Lymph % (Auto) (20.5-60.0) % Centre % (Auto) (1.7-12.0) % Eos % (Auto) (0.9-7.0) % Baso % (Auto) (0.2-2.0) % Neut # (Auto) (1.4-6.5) 10^3/uL Lymph # (Auto) (1.2-3.8) 10^3/uL Centre # (Auto) (0.3-0.8) 10^3/uL Eos # (Auto) (0.0-0.7) 10^3/uL Baso # (Auto) (0.0-0.1) 10^3/uL Abs Immat Gran (auto) (0.00-0.03) 10^3/uL Imm/Tot Granulo (auto) (0.0-0.5) % PT (9.0-11.6) sec INR Sodium (136-145) mmol/L Potassium (3.5-5.1) mmol/L Chloride (98-107) mmol/L Carbon Dioxide (21.0-32.0) mmol/L Anion Gap BUN (7.0-18.0) mg/dL Creatinine (0.55-1.02) mg/dL Est GFR ( Amer) (>=60 mL/min/1.73m^2) Est GFR (Non-Af Amer) (>=60 mL/min/1.73m^2) BUN/Creatinine Ratio Glucose (74-106) mg/dL Calcium (8.5-10.1) mg/dL Total Bilirubin (0.2-1.0) mg/dL AST (15-37) U/L ALT (14-59) U/L Alkaline Phosphatase (46-116) U/L Troponin I High Sens (4.0-51.3) pg/mL Total Protein (6.4-8.2) g/dL Albumin (3.4-5.0) g/dL Globulin g/dL Albumin/Globulin Ratio Urine Color Lt. yellow (YELLOW) Urine Clarity Clear (CLEAR) Urine pH 7.0 (5.0-9.0) Ur Specific [place] <=1.005 A (1.005-1.025) Urine Protein Negative (NEG/TRACE) mg/dL Urine Glucose (UA) Negative (NEGATIVE) mg/dL Urine Ketones Negative (NEGATIVE) mg/dL Urine Occult Blood Negative (NEGATIVE) Urine Nitrite Negative (NEGATIVE) Urine Bilirubin Negative (NEGATIVE) Urine Urobilinogen 0.2 (0.2-1.0) EU/dL Ur Leukocyte Esterase Negative (NEGATIVE) Discharge Plan Discharge Chief Complaint: Shortness of Breath/Dyspnea Clinical Impression: Hypertension, uncontrolled, Intractable back pain Patient Disposition: Admitted as Observation Time of Disposition Decision: 14:55
[2024-09-29 09:40] LABS: Basophils Percent Auto 0.6 % (0.2-2.0); Eosinophils Absolute Auto 0.1 10^3/uL (0.0-0.7); Eosinophils Percent Auto 1.4 % (0.9-7.0); Hematocrit 41.9 % (36.0-48.0); Hemoglobin 14.7 g/dL (12.0-16.0); Immature Granulocytes Abs Auto 0.01 10^3/uL (0.00-0.03); Immature Granulocytes Pct Auto 0.2 % (0.0-0.5); Lymphocytes Absolute Auto 1.5 10^3/uL (1.2-3.8); Lymphocytes Percent Auto 29.6 % (20.5-60.0); Mean Corpuscular HGB Conc 35.1 g/dL (29.9-35.2); Mean Corpuscular Volume 94.2 fL (81.0-99.0); Mean Platelet Volume 9.5 fL (9.5-13.5); Monocytes Absolute Auto 0.5 10^3/uL (0.3-0.8); Monocytes Percent Auto 10.1 % (1.7-12.0); Neutrophils Percent Auto 58.1 % (43.0-75.0); Platelet Count 203 10^3/uL (150-450); Red Blood Count 4.45 10^6/uL (4.20-5.40); Red Cell Distribution Width 12.9 % (11.0-15.0); White Blood Count 5.1 10^3/uL (4.0-11.0)
[2024-09-29 10:06] LABS: INR 0.99; Prothrombin Time 10.5 sec (9.0-11.6)
[2024-09-29 10:13] LABS: Alanine Aminotransferase 11 U/L (14-59); Albumin Globulin Ratio 0.9; Albumin Level 3.3 g/dL (3.4-5.0); Alkaline Phosphatase 111 U/L (46-116); Anion Gap 14.1; Aspartate Amino Transferase 12 U/L (15-37); Bilirubin Total 0.5 mg/dL (0.2-1.0); Carbon Dioxide 25.1 mmol/L (21.0-32.0); Chloride 106 mmol/L (98-107); Estimated GFR (African America >60 (>=60 mL/min/1.73m^2); Estimated GFR (Non-African Ame >60 (>=60 mL/min/1.73m^2); Globulin 3.5 g/dL; Glucose 107 mg/dL (74-106); Potassium 3.2 mmol/L (3.5-5.1); Sodium 142 mmol/L (136-145); Total Protein 6.8 g/dL (6.4-8.2); Troponin I High Sensitivity 11.7 pg/mL (4.0-51.3)
[2024-09-29] MEDS: MORPHINE SULFATE 4 MG/ML VIAL 3 MG IV (10:18)
--- NOTE | 2024-09-29 10:21 | CT_ITS ---
[address] [address] Patient Name: ELLA JACOBO MRN: [id number] date: 1960 Sex: F Assigned Patient Location: ER Current Patient Location: ER Accession/Order Number: [id number] Exam Date: 09/29/2024 11:00 Report Date: 09/29/2024 13:00 At the request of: ANH JAY Procedure: CT angio abdomen pelvis EXAMINATION: CT angio abdomen pelvis REASON FOR EXAM: Back pain with HTN and feet numbness. COMPARISON: 03/23/2022 CT without IV contrast. TECHNIQUE: 100 mL IV Omnipaque 350 administered. Dose reduction techniques were achieved by using automated exposure control and/or adjustment of mA and/or kV according to patient size and/or use of iterative reconstruction technique. Lung bases: Linear scar or atelectasis identified in the lingula. No infiltrate or effusion. Abdominal findings: Prior cholecystectomy. There is significant biliary ectasia. The common bile duct measures up to 2 cm as compared to 1.6 cm on 03/23/2022. No pancreatitis. Otherwise, spleen, pancreas, adrenal glands, and kidneys unremarkable. A hypervascular nodule is seen in segment III left lobe of the liver measuring up to 1.2 cm. This may be a flash fill hemangioma. No developing mesenteric or retroperitoneal mass. Lymph nodes in the left periaortic region of the retroperitoneum are less than 1 cm in size and unchanged from 2022. There is atherosclerotic plaquing of the abdominal aorta. No dissection or aneurysm. Celiac trunk is widely patent. Stenosis of less than 50% in the proximal SMA. There is atherosclerotic plaquing at the origins of the renal arteries but no significant stenosis. The JAMES is patent. There is atherosclerotic plaquing in the common and external iliac arteries. There is a focal intimal flap in the common iliac artery on the right although this does not cause significant stenosis. No propagation. No significant stenosis in the common or external iliac arteries bilaterally. There is significant atherosclerotic disease of the common femoral arteries but no significant stenosis or dissection. No dilatation of the small or large bowel. There are diverticula in the right colon but no diverticulitis suggested. No free air or ascites. Pelvic findings: No adenopathy or mass in the pelvis or inguinal regions. Prior hysterectomy. Urinary bladder unremarkable. Mild wedging of the L1 vertebral body is unchanged from 03/23/2022. Prior fusion between L4 and S1. CT/CT angio abdomen pelvis IMPRESSION: 1. Significant atherosclerotic plaquing of the intimal surfaces of the abdominal aorta, iliac vessels, and branch vessels but no propagating aortic dissection or aneurysm. 2. There is a non-propagating focal intimal dissection flap in the right common iliac artery but this does not cause occlusion or significant stenosis. 3. No significant stenosis of the common or external iliac arteries or common femoral arteries. 4. Hypervascular nodule in the liver which could be a flash fill hemangioma but incompletely characterized on this study. Consider elective MRI characterization without and with IV contrast. 5. Severe extrahepatic biliary ectasia slightly increased from 2021. This could be related to ampullary spasm or stricture. Correlation with liver function tests recommended. Electronically authenticated by: BRICE BARROSO Date: 09/29/2024 13:00
[2024-09-29 11:53] LABS: Troponin I High Sensitivity 10.6 pg/mL (4.0-51.3)
[2024-09-29 11:59] LABS: Bilirubin Urine NEGATIVE (NEGATIVE); Blood Urine NEGATIVE (NEGATIVE); Clarity Urine CLEAR (CLEAR); Color Urine LT. YELLOW (YELLOW); Glucose Urine UA NEGATIVE (NEGATIVE); Ketones Urine NEGATIVE (NEGATIVE); Leukocyte Esterase Urine NEGATIVE (NEGATIVE); Nitrite Urine NEGATIVE (NEGATIVE); Protein Urine NEGATIVE (NEG/TRACE); Specific Gravity Urine <=1.005 (1.005-1.025); Urobilinogen Urine 0.2 EU/dL (0.2-1.0)
[2024-09-29 12:01] LABS: Urine Microscopic Indicated NO
[2024-09-29] MEDS: HYDRALAZINE HCL 20 MG/ML VIAL 10 MG IVP ×2 (13:31→15:25)
[2024-09-29] MEDS: ALPRAZOLAM 1 MG TABLET PO ×2 (15:30→21:07)
--- NOTE | 2024-09-29 15:59 | P.HP_ITS ---
HPI H&P: HPI History of Present Illness Chief complaint: SOB HTN EMERGENCY BACK PAIN INTRACTABLE Narrative: Patient is a 63 y.o white female with past medical history of HTN, COPD, RLS, Bipolar disorder, insomnia, Anxiety and panic, CAD, angina, who presented to the ER today with back pain and elevated BP. BP 200/100 and was given hydralazine. Because of the back pain and shortness of breath and BP reading a CTA abdomen was obtained which showed some Aortic changes, Vascular Surgeon, Dr. Moe was called from the ER physician who recommended seeing her in clinic and getting her acute elevated BP down. Patient admitted to the hospitalist for hypertensive urgency. Patient follow with a seismograph computer who has been adjusting her BP meds. She takes prasugrel. She has chronic low back pain. She denies any trauma. Just said it has hurt on both left and right sides, no radiation of pain down legs, no bowel or bladder incontinence, no fevers or chills. ER findings: cbc, coags, BMP normal with potassium of 3.2 CTA: 1. Significant atherosclerotic plaquing of the intimal surfaces of the abdominal aorta, iliac vessels, and branch vessels but no propagating aortic dissection or aneurysm. 2. There is a non-propagating focal intimal dissection flap in the right common iliac artery but this does not cause occlusion or significant stenosis. 3. No significant stenosis of the common or external iliac arteries or common femoral arteries. 4. Hypervascular nodule in the liver which could be a flash fill hemangioma but incompletely characterized on this study. Consider elective MRI characterization without and with IV contrast. 5. Severe extrahepatic biliary ectasia slightly increased from 2021. This could be related to ampullary spasm or stricture. Correlation with liver function tests recommended. Opioid HPI Opioid Management Most Recent Pain and Opioid Data: Last Pain Scale 7 09/29/24 16:39 09/29/24 Last Pain Assessment 09/29/24 16:39 Last ED Pain Assessment 09/29/24 11:05 Last MAR Pain Assessment 09/29/24 16:37 Last ORT Total Score 1 09/29/24 16:07 09/29/24 Last ORT Risk Category Low Risk 09/29/24 16:07 09/29/24 Review of Systems ROS Narrative ROS: a complete review of systems were reviewed with patient and are positive as below or listed in History of Chief Complaint. General: no fever, chills, night sweats Head: no headache, trauma, visual changes, nausea or vomiting Skin: no reported rashes, itching or sores Eyes: no blurriness of vision Ears: no reported hearing loss, vertigo, earache, or tinnitus Throat: no sore throat, hoarseness, swelling of neck, or tongue pain Heart: no chest pain Lungs: no shortness of breath or cough GI: no diarrhea or vomiting/nausea Urinary: no urinary urgency, frequency or pain Neuro: no numbness or tingling, lower back pain HEM: no bleeding issues or bruising ENDO: no thyroid problems Psych: anxiety or depression PFSH PFSH Medical History Hyperlipidemia ?E78.5 - Hyperlipidemia, unspecified (ICD-10) Restless legs syndrome ?G25.81 - Restless legs syndrome (ICD-10) Panic attack ?F41.0 - Panic disorder [episodic paroxysmal anxiety] (ICD-10) Panic attack ?F41.0 - Panic disorder [episodic paroxysmal anxiety] (ICD-10) Neuropathy ?G62.9 - Polyneuropathy, unspecified (ICD-10) COPD (chronic obstructive pulmonary disease) ?J44.9 - Chronic obstructive pulmonary disease, unspecified (ICD-10) Anxiety ?F41.9 - Anxiety disorder, unspecified (ICD-10) Hypertension ?I10 - Essential (primary) hypertension (ICD-10) Surgical History H/O: hysterectomy ?Z90.710 - Acquired absence of both cervix and uterus (ICD-10) History of lumbar fusion ?Z98.1 - Arthrodesis status (ICD-10) H/O heart artery stent ?Z95.5 - Presence of coronary angioplasty implant and graft (ICD-10) History of cholecystectomy ?Z90.49 - Acquired absence of other specified parts of digestive tract (ICD- 10) Family History (Updated 09/29/24 @ 16:29 by Tiny Patel) Mother Family history of cancer Family history of diabetes mellitus Father Family history of diabetes mellitus Family history of hypertension Family history of myocardial infarction Social History (Updated 09/29/24 @ 16:30 by Tiny Patel) Within the past year, how often did you have a drink containing alcohol: never Within the past year, how often did you have six or more drinks on one occasion: never Score interpretation: A score less than 3 is consistent with normal alcohol consumption. Smoking status: Current every day smoker Non-prescribed substance use: denies use Highest level of school completed/degree received: Associate degree: academic program Are you now , , , , never or living with a partner: In a typical week, how many times do you talk on the telephone with family, friends, or neighbors: 3 or more times per week How often do you get together with friends or relatives: 3 or more times per week How often do you attend spiritism or rastafari services: never Do you belong to any clubs or organizations such as spiritism groups unions, [employer] or athletic groups, or school groups: no Total score: 1 Score interpretation: A score of less than or equal to 1 indicates the most socially isolated. Little interest or pleasure in doing things: several days Feeling down, depressed, or hopeless: several days Feel stressed/tense/nervous/anxious/difficulty sleeping: to some extent Meds Home Medications and Allergies Home Medications ?Medication ?Instructions ?Recorded ?Confirmed ?Type albuterol sulfate 90 mcg/actuation 2 puff inhalation Q4H PRN 03/26/24 09/29/24 History aerosol inhaler shortness of breath or wheezing alprazolam 1 mg tablet 1 mg PO QID 03/26/24 09/29/24 History atorvastatin 80 mg tablet 80 mg PO DAILY 03/26/24 09/29/24 History budesonide 160 mcg-glycopyr 9 2 inh inhalation BID 03/26/24 09/29/24 History mcg-formot 4.8 mcg/actuation HFA inhaler (Breztri Aerosphere) carvedilol 3.125 mg tablet 6.25 mg PO BID 03/26/24 09/29/24 History isosorbide mononitrate 30 mg 30 mg PO DAILY 03/26/24 09/29/24 History tablet,extended release 24 hr lamotrigine 25 mg tablet 75 mg PO BEDTIME 03/26/24 09/29/24 History nitroglycerin 0.4 mg sublingual 0.4 mg sublingual Q5M PRN chest 03/26/24 09/29/24 History tablet pain olanzapine 5 mg tablet 5 mg PO BEDTIME 03/26/24 09/29/24 History quetiapine 100 mg tablet 100 mg PO BEDTIME 03/26/24 09/29/24 History ropinirole 1 mg tablet 1 mg PO DAILY 03/26/24 09/29/24 History trazodone 100 mg tablet 300 mg PO BEDTIME PRN sleep 03/26/24 09/29/24 History venlafaxine 150 mg 300 mg PO BEDTIME 03/26/24 09/29/24 History capsule,extended release 24 hr prasugrel 10 mg tablet 10 mg PO DAILY 09/29/24 09/29/24 History ranolazine 500 mg tablet,extended 500 mg PO DAILY 09/29/24 09/29/24 History release,12 hr Allergies Allergy/AdvReac Type Severity Reaction Status Date / Time buspirone (From BuSpar) Allergy Severe Migraine Verified 09/29/24 13:26 pregabalin (From Lyrica) AdvReac Severe Confusion Verified 09/29/24 13:26 bacitracin AdvReac Unknown Unknown Verified 09/29/24 13:26 Exam Narrative Exam Narrative: General: Patient is alert, and oriented to person, place and time with normal affect, proper hygiene, morbid obesity Skin: no visible rashes, or ulcers Head: atraumatic, acephalic Eyes: PERRLA, no nystagmus present, conjunctiva clear, no scleral icterus Ears: normal gross auditory acuity Heart: Normal rate and rhythm, no murmurs/rubs/gallops Lungs: no audible wheezes, crackles and normal breath sounds all lung rivera Abdomen: Normal audible bowel sounds, no distension, No palpable masses, no organomegaly, no rebound/guarding/ or rigidity Musculoskeletal: no swelling bilateral lower extremities Neuro: CN II-X grossly intact Constitutional Vital Signs, click to edit/add: Last Vital Signs Temp 98.6 F 09/29/24 09:01 Pulse 92 H 09/29/24 15:51 Resp 20 09/29/24 15:51 BP 162/94 H 09/29/24 15:51 Pulse Ox 95 09/29/24 15:51 O2 Del Method Room Air 09/29/24 14:14 Results Labs Labs: Short CBC 09/29/24 Range/Units 09:28 WBC 5.1 (4.0-11.0) 10^3/uL Hgb 14.7 (12.0-16.0) g/dL Hct 41.9 (36.0-48.0) % Plt Count 203 (150-450) 10^3/uL BMP 09/29/24 09:46 Sodium 142 Potassium 3.2 L Chloride 106 Carbon Dioxide 25.1 BUN 8.0 Creatinine 0.73 Glucose 107 H Calcium 9.0 Liver Function 09/29/24 Range/Units 09:46 Total Bilirubin 0.5 (0.2-1.0) mg/dL AST 12 L (15-37) U/L ALT 11 L (14-59) U/L Alkaline Phosphatase 111 (46-116) U/L Albumin 3.3 L (3.4-5.0) g/dL Urine 09/29/24 Range/Units 11:52 Urine Color Lt. yellow (YELLOW) Urine Clarity Clear (CLEAR) Urine pH 7.0 (5.0-9.0) Ur Specific [place] <=1.005 A (1.005-1.025) Urine Protein Negative (NEG/TRACE) mg/dL Urine Glucose (UA) Negative (NEGATIVE) mg/dL Assessment and Plan Assessment and Plan (1) Hypertensive urgency: Assessment and Plan: Given hydralazine. Will restart Coreg but will increase to 12.5mg BID from 6.25mg BID. continue isosorbide. Troponin negative, check proBNP. Electrolytes stable, avoid NSAIDs, low salt diet (2) Intractable back pain: Assessment and Plan: PRN oxycodone, avoid NSAIDS from BP elevation (3) COPD (chronic obstructive pulmonary disease): Assessment and Plan: PRN Duonebs, continue breztri Qualifiers: COPD type: unspecified COPD Qualified Code(s): J44.9 - Chronic obstructive pulmonary disease, unspecified (4) Anxiety: Assessment and Plan: continue home meds (5) Restless legs syndrome: Assessment and Plan: continue requip (6) Hyperlipidemia: Assessment and Plan: continue atorvastatin Qualifiers: Hyperlipidemia type: unspecified Qualified Code(s): E78.5 - Hyperlipidemia, unspecified (7) Arterial vascular disease: Assessment and Plan: as seen on CTA, lots of plaques, continue prasurgrel and atorvastatin. Will get follow up appointment with Vascular surgery upon discharge. Plan Patient is a full code continue lovenox for DVT prophylaxis Patient is in observation status and is not expected to cross 2 midnights
--- OUTSIDE RECORDS SUMMARY | 2024-09-29 16:04 | XMS_ITS | CCD ---
Author Organization [facility] Care Team Providers Care Service Unit Operator Name Role Phone Dorie Luis Attending Unavailable Dorie Luis Attending Unavailable Dorie Luis Primary Care Physician MD Dorie Luis Primary Care Provider [phone] MD Elsy López Attending Provider DORIE LUIS [...] Chong Unavailable MD Jose Cruz Attending Provider Jose Cruz Unavailable Sindhu Ennis Unavailable MD Dorie Luis Primary Care Provider [phone] MD Harjeet Hernández Attending Provider [phone] Dorie Luis Primary Care Physician [phone] Dorie Luis MD Primary Care Provider POOMMIDEENAITBANDAR Attending Unavailable DORIE LUIS Primary Care Unavailable POOMKRZYSZTOFITBANDAR Referring Unavailable DORIE LUIS Primary Care Unavailable POOMMIPANIT, BANDAR Salvador Admitting Unavailable POOMKRZYSZTOFIT, BANDAR Salvador Attending Unavailable DORIE LUIS Primary Care Unavailable OJUKWU, Mbanefo Attending Unavailable OJUKWU, Mbanefo Admitting Unavailable [facility], XXXX Consulting Unavailable Jose Cruz Admitting [...] Unavaila ble Rosa Maria Frausto Attending Unavailable [facility], XXXX Consulting Unavailable DO Alec LUTHER [...] Mbanefo Admitting Unavailable OJUKWU, Mbanefo Attending Unavailable [facility], XXXX Consulting Unavailable Ainsley Rose Attending Unavailable MD Dorie Luis Admitting Unavailable MD Dorie Luis Attending Unavailable MD Dorie Luis Attending Unavailable MD Dorie Luis Attending Unavailable MD Dorie Luis Attending Unavailable MD Dorie Luis Attending Unavailable Eligio Lopez Admitting Unavailable Eligio Loepz Attending Unavailable Tiffany Jansen Consulting Unavaila ble Tiffany Jansen Consulting Unavaila ble Tiffany Jansen Consulting Unavaila ble [facility], XXXX Consulting Unavailable Tiffany Jansen Consulting Unavaila ble Eligio Lopez Admitting Unavailable Eligio Lopez Attending Unavailable Tiffany Jansen Consulting Unavaila ble Tiffany Jansen Consulting Unavaila ble [facility], XXXX Consulting Unavailable Dorie Luis Admitting Unavailable Allergies Allergy Classification Reported Allergen(s) Allergy Type Date of Onset Reaction(s) Facility (20 sources) busPIRone; Translations: [BuSpar] Drug Allergy Migraine (disorder), Unknown (qualifier value) [facility] Repository (20 sources) Sulfonamides (Antibiotic); Translations: [sulfa drugs] Propensity to adverse reactions (disorder) Eruption of skin (disorder) [facility] Repository (20 sources) pregabalin; Translations: [pregabalin] Drug Allergy 09-06-20 23 Unknown, Other [facility] (20 sources) Sulfamethoxazole ; Translations: [sulfamethoxazol e] Drug Allergy 09-06-20 23 Unknown [facility] (18 sources) Tape 1 Drug allergy Sensitive (qualifier value) [facility] Comment on above: PAPER TAPE [place] (1 source) Adhesive agent Drug allergy (disorder) 01-28-20 20 [facility] Repository (1 source) pregabalin Drug Allergy 03-01-20 15 [facility] Repository (1 source) Sulfonamides (Antibiotic) Drug allergy (disorder) 08-28-20 14 [facility] Repository (5 sources) traMADol; Translations: [TRAMADOL] Drug Allergy 10-25-20 [facility] Repository (14 sources) busPIRone; Translations: [BUSPIRONE] Drug Allergy 09-06-20 Unknown, Headache [facility] (5 sources) Sulfacetamide / Sulfur Drug Allergy Unknown [employer] [facility] Other (9 sources) traMADol Drug Allergy 10-25-20 Unknown [facility] Other (20 sources) Nicotine; Translations: [nicotine] Drug Allergy 09-06-20 Eruption of skin (disorder), Unknown, Rash [facility] (8 sources) Sulfonamides (Antibiotic); Translations: [SULFA (SULFONAMIDE ANTIBIOTICS)] Drug Intolerance 10-25-20 Unknown [facility] Work Phone: (8 sources) Adhesive Tape-Silicones; Translations: [ADHESIVE TAPE-SILICONES] Drug Allergy 10-05-20 Other [facility] (7 sources) Adhesive Tape; Translations: [Tape] Propensity to adverse reactions (disorder) [facility] Repository (1 source) busPIRone Drug Allergy 05-13-[address] [facility] Repository (1 source) pregabalin Drug Allergy 05-13-[address] [facility] Repository (1 source) Sulfacetamide Drug Allergy 05-13-[address] [facility] Repository (1 source) Sulfur Drug Allergy 05-13-[address] [facility] Repository (1 source) traMADol Drug Allergy 05-13-[address] [facility] Repository (1 source) Unable to Assess Drug allergy (disorder) 06-18-[address] [facility] Repository Medications Current Medications Medication [...] Refill(s) 0 Start Date: 01/30/19 Status: Ordered [id number] 200 actuat albuterol 0.09 mg/actuat metered dose [...] Daily, # 90 tab(s), Refills(s) 1, Pharmacy: [facility], 155.8, cm, 05/12/23 16:06:00 EDT, Height/Length Dosing, 79.5, kg, 05/12/23 16:06:00 EDT, Weight Dosing Start Date: 05/12/23 Status: Ordered amoxicillin 500 mg oral capsule (2 sources) Penicillin-class Antibacterial Start: 05-29-2024 take 1 capsule by mouth every twelve hours amoxicillin 500 mg Cap 500 mg = 1 cap(s), Oral, q12hr, # 20 cap(s), Refills(s) 0, Pharmacy: [facility], 154, cm, 05/29/24 15:16:00 EDT, Height/Length Dosing, 74.9, kg, 05/29/24 15:16:00 EDT, Weight Dosing Start Date: 05/29/24 Status: Ordered atorvastatin 80 mg oral tablet (19 sources) HMG-CoA Reductase Inhibitor Start: 03-21-2024 take 1 tablet by mouth once daily atorvastatin 80 mg Tab 80 mg = 1 tab(s), Oral, Daily, # 30 tab(s), Refills(s) 5, Pharmacy: [facility], 154, cm, 01/06/24 13:29:00 EST, Height/Length Dosing, 70.3, kg, 01/06/24 13:29:00 EST, Weight Dosing Start Date: 03/21/24 Status: Ordered Start: 09-30-2023 take 1 tablet by [facility] once daily atorvastatin 80 mg Tab 80 mg = 1 tab(s), Oral, Daily, # 90 tab(s), Refills(s) 1, Pharmacy: [facility], 154, cm, 09/29/23 9:30:00 EST, Height/Length Dosing, 73.1, kg, 09/29/23 9:30:00 EST, Weight Dosing Start Date: 09/30/23 Status: Ordered Start: 07-10-2023 take 2 tablets by mo [facility] at bedtime atorvastatin 40 mg Tab 80 mg = 2 tab(s), Oral, Bedtime, # 30 tab(s), Refills(s) 0, Pharmacy: [facility], 154.9, cm, 07/09/23 19:44:00 EDT, [...] BID, # 60 tab(s), Refills(s) 3, Pharmacy: [facility], 154, cm, 05/15/24 13:22:00 EDT, Height/Length Dosing, 72.2, kg, 05/15/24 13:22:00 EDT, Weight Dosing Start Date: 05/16/24 Status: Ordered Start: 12-23-2023 take 1 tablet by [facility] twice daily Coreg 3.125 mg Tab 3.125 mg = 1 tab(s), Oral, BID, # 60 tab(s), Refills(s) 3, Pharmacy: [facility], 154, cm, 12/01/23 13:52:00 EST, Height/Length Dosing, 68.6, kg, 12/01/23 14:05:00 EST, Weight Dosing Start Date: 12/23/23 Status: Ordered Start: 07-10-2023 take 1 tablet by [facility] twice daily Coreg 3.125 mg Tab 3.125 mg = 1 tab(s), Oral, BID, # 60 tab(s), Refills(s) 3, Pharmacy: [facility], 154, cm, 09/29/23 9:30:00 EST, [...] 01/30/19 Status: Ordered take 1 capsule by [facility] every twenty-four hours Neurontin 100 MG 1 [...] Status: Ordered take 2 tablets by mo [facility] once daily losartan (Cozaar) 50 mg [...] pain, # 30 tab(s), Refills(s) 0, Pharmacy: [facility], 154.9, cm, 07/09/23 19:44:00 EDT, Height/Length Dosing, 73, kg, 07/09/23 19:44:00 EDT, Weight Dosing Start Date: 07/10/23 Status: Ordered prasugrel 10 mg oral tablet (4 sources) [id number] Platelet Inhibitor Start: 08-08-2024 take 1 tablet by mouth once daily prasugrel 10 mg Tab 10 mg = 1 tab(s), Oral, Daily, # 30 tab(s), Refills(s) 5, Pharmacy: [facility], 154, cm, 07/04/24 13:11:00 EDT, Height/Length Dosing, 75.4, kg, 07/04/24 13:11:00 EDT, Weight Dosing Start Date: 08/08/24 Status: Ordered Start: 07-04-2024 take 1 tablet by [facility] once daily prasugrel 10 mg Tab 10 mg = 1 tab(s), Oral, Daily, # 30 tab(s), Refills(s) 3, Pharmacy: [facility], 154, cm, 07/04/24 13:11:00 EDT, Height/Length Dosing, 75.4, kg, 07/04/24 13:11:00 EDT, Weight Dosing Start Date: 07/04/24 Status: Ordered Start: 12-01-2023 take 1 tablet by [facility] once daily prasugrel 10 mg Tab 10 mg = 1 tab(s), Oral, Daily, # 30 tab(s), Refills(s) 3, Pharmacy: [facility], 154, cm, 12/01/23 13:52:00 EST, [...] BID, # 60 tab(s), Refills(s) 5, Pharmacy: [facility]/pharmacy #[id number], 154, cm, 05/30/24 10:31:00 EDT, [...] Ordered Start: 09-02-2023 take 1 tablet by [facility] twice daily Ranexa 500 mg [...] Ordered Start: 09-13-2022 take 1 tablet by [facility] once daily ropinirole 1 mg [...] DOSE, # 180 tab(s), Refills(s) 1, Pharmacy: [facility], 154, cm, 07/21/23 14:15:00 EDT, [...] Coronary atherosclerosis; Translations: [Atherosclerotic heart disease of [place] coronary artery without angina pectoris] Onset: 09-01-2023 [...] current use of drug therapy; Translations: [Other extermination supervisor (current) drug therapy] Onset: 09-01-2023 Episodic Other [...] walker 02-10-2023 Unclassified (2 sources) history of FL Onset: 10-11-2023 Unclassified (1 source) 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 (CMS-HCC); Translations: [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 (CMS-HCC)] [...] 05-19-2022 Episodic Other aftercare (1 source) Other extermination supervisor (current) drug therapy; Translations: [OTH PENITENTIARY CURRENT DRUG THERAPY] Onset: 09-12-2022 Episodic Other [...] Unclassified (1 source) 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 It is important that you return our call regarding your hospital discharge upon receiving this letter. Also, at the time of your call, please provide us with your current information. Thank you for your prompt attention to this matter. Sincerely, Alex RiveraPattern Finisher [phone] Riddhi [facility] ED Note-Physicianon 08-14-20 ED Note-Physician ED Note-Physician Basic Information Time Seen: Davey Posada PA-C 08/13/2024 08:50 Chief Complaint pt has chest pain since yesterday. Pt A&O x 3 with ABC's and MSP's intact. hx of FL and COPD. History of Present Illness 63-year-old [...] after nitroglycerin. She has a history of CAD/FL with previous stenting. Review of Systems A [...] Chest pain, unspecified)Chest pain 2. CAD in [place] artery (I25.10: Atherosclerotic heart disease of [place] coronary artery without angina pectoris) 3. HTN [...] mg-0.5 mg/3 mL Soln-Inh, 3 mL, Inhalation [id number] units/mLInjection [F], 5000 unit(s), SubCutaneous lotujp4Qtz-JK [F], 30 mg, Oral omodww5Yin [F], 100 mg, Oral morphine 4 mg/mL Inj, 4 mg, IV Push hjzu60Ltf [F], 10 mg, Oral zskvxy1Wvu-CE [F], 500 mg, Oral pajlov5Ucf [F], 1 mg, Oral Zofran 4 mg/2 mL Injection, 4 mg, IV Push Disposition Plan Patient Discharge Condition Disposition: Admitted to the hospital Condition: Improved and stable Counseled: Patient and/or family were counseled to workup, results, treatment plan and follow-up recommendations Discharge Prescription List Prescriptions No active prescription medications Follow-up With When Contact Information Amilcar Matthews PA-C Within 1 to 2 weeks [address] [place] [address]- [phone] Additional Instructions: Fidencio POSEY, Dorie Jean Baptiste, [facility], MED Within 5 to [address] [place] [address]- Additional Instructions: Patient Education Nonspecific Chest Pain, Adult, Bnnw-iz-Tksk Aspirin and Your Heart Attestation I performed [...] made to ensure accuracy, however, inadvertently computerized equities trader mistakes may be present. Approp (more content not included)... Normal [facility] Comment on above: Result Comment: Elec tronically Signed By: Davey Posada PA-C\.br\Date and Time Signed: 08/13/24 19:13 EDT\.br\Electronically Co-Signed By: Ainsley Rose M.D.\.br\Date and Time Co-Signed: 08/14/24 07:20 EDT BMPon 08-13-2024 Anion gap [Moles/Vol] 11 mmol/L Normal 6-16 [facility] Comment on above: Performed By: #### 2 [id number] #### [facility] [address] [place] [address] Calcium [Mass/Vol] 8.9 mg/dL Normal 8.9-11.1 [facility] Comment on above: Performed By: #### 2 [id number] #### [facility] [address] [place] [address] Chloride [Moles/Vol] 103 mmol/L Normal 101-111 [facility] Comment on above: Performed By: #### 2 [id number] #### [facility] [address] [place] [address] CO2 [Moles/Vol] 27 mmol/L Normal 21-31 [facility] Comment on above: Performed By: #### 2 [id number] #### [facility] [address] [place] [address] Creatinine [Mass/Vol] 0.7 mg/dL Normal 0.5-1.3 [facility] Comment on above: Performed By: #### 2 [id number] #### [facility] [address] [place] [address] Glucose [Mass/Vol] 91 mg/dL Normal 55-199 [facility] Comment on above: Performed By: #### 2 [id number] #### [facility] [address] [place] [address] Potassium [Moles/Vol] 3.9 mmol/L Normal 3.5-5.3 [facility] Comment on above: Performed By: #### 2 [id number] #### [facility] [address] [place] [address] Sodium [Moles/Vol] 137 mmol/L Normal 135-145 [facility] Comment on above: Performed By: #### 2 [id number] #### [facility] [address] [place] [address] Urea nitrogen [Mass/Vol] 12 mg/dL Normal 5-21 [facility] Comment on above: Performed By: #### 2 [id number] #### [facility] [address] [place] [address] Urea nitrogen/Creatinine [Mass ratio] 17 No Units Normal 10-20 [facility] Comment on above: Performed By: #### 2 [id number] #### [facility] [address] [place] [address] CBC w/ Auto Diffon 4 Basophils/100 WBC (Bld) 0.9 % Normal 0.0-2.0 [facility] Comment on above: Performed By: #### 2 [id number] #### [facility] [address] [place] [address] Basophils/Leukocytes Auto (Bld) [Pure # fraction] 0.0 E9/L Normal 0.0-0.2 [facility] Comment on above: Performed By: #### 2 [id number] #### [facility] [address] [place] [address] Eosinophils (Bld) [#/Vol] 0.1 E9/L Normal 0.0-0.5 [facility] Comment on above: Performed By: #### 2 [id number] #### [facility] [address] [place] [address] Eosinophils/100 WBC (Bld) 2.3 % Normal 0.0-8.0 [facility] Comment on above: Performed By: #### 2 [id number] #### [facility] [address] [place] [address] Erythrocyte distribution width (RBC) [Ratio] 12.6 % Normal 10.9-14.2 [facility] Comment on above: Performed By: #### 2 [id number] #### [facility] [address] [place] [address] Hematocrit (Bld) [Volume fraction] 42.0 % Normal 34.0-46.0 [facility] Comment on above: Performed By: #### 2 [id number] #### [facility] [address] [place] [address] Hemoglobin (Bld) [Mass/Vol] 15.3 g/dL Normal 12.0-16.0 [facility] Comment on above: Performed By: #### 2 [id number] #### [facility] [address] [place] [address] Lymphocytes (Bld) [#/Vol] 1.6 E9/L Normal 1.0-4.0 [facility] Comment on above: Performed By: #### 2 [id number] #### [facility] [address] [place] [address] Lymphocytes/100 WBC (Bld) 31.9 % Normal 14.0-50.0 [facility] Comment on above: Performed By: #### 2 [id number] #### [facility] [address] [place] [address] MCH (RBC) [Entitic mass] 34.7 pg High 27.0-34.0 [facility] Comment on above: Performed By: #### 2 325858 #### [facility] [address] [place] [address] MCHC (RBC) [Mass/Vol] 36.5 g/dL High 31.4-36.0 [facility] Comment on above: Performed By: #### 2 [id number] #### [facility] [address] [place] [address] MCV (RBC) [Entitic vol] 95.1 fL Normal 80.0-100.0 [facility] Comment on above: Performed By: #### 2 [id number] #### [facility] [address] [place] [address] Monocytes (Bld) [#/Vol] 0.5 E9/L Normal 0.2-1.0 [facility] Comment on above: Performed By: #### 2 [id number] #### [facility] [address] [place] [address] Neutrophils (Bld) [#/Vol] 2.7 E9/L Normal 2.0-7.5 [facility] Comment on above: Performed By: #### 2 [id number] #### [facility] [address] [place] [address] Neutrophils/100 WBC (Bld) 54.0 % Normal 36.0-75.0 [facility] Comment on above: Performed By: #### 2 137095 #### [facility] [address] [place] [address] Platelet 198.0 E9/L Normal 150.0-500.0 [facility] Comment on above: Performed By: #### 2 [id number] #### [facility] [address] [place] [address] Platelet mean volume (Bld) [Entitic vol] 6.5 fL Normal 6.4-10.8 [facility] Comment on above: Performed By: #### 2 [id number] #### [facility] [address] [place] [address] RBC (Bld) [#/Vol] 4.4 E12/L Normal 4.3-5.9 [facility] Comment on above: Performed By: #### 2 [id number] #### [facility] [address] [place] [address] WBC corrected for nucl RBC Auto (Bld) [#/Vol] 4.9 E9/L Normal 4.0-11.0 [facility] Comment on above: Performed By: #### 2 [id number] #### [facility] [address] [place] [address] CHEMISTRYOrdered By: SYSTEM SYSTEM on 08-13-2024 Troponin [...] High Sensitivity Troponin I Instructions For Use, [place], June 2018) Troponin HS 4.70 pg/mL Low 10.10 - 27.10 pg/mL [facility] Comment on above: Interpretive Data: T he 95% CI (Confidence Interval) PPV (Positive Predictive Value) for myocardial infarction in females is 38 pg/mL, in males 51 pg/mL. The results should be used in conjunction with clinical conditions of myocardial infarction. (Access High Sensitivity Troponin I Instructions For Use, [place], June 2018) Anion gap [Moles/Vol] 11 mmol/L [...] Sensitivity Troponin I Instructions For Use, [place], June 2018) Urea nitrogen [Mass/Vol] 12 mg/dL Normal 5 - 21 mg/dL [facility] Urea nitrogen/Creatinine [Mass ratio] 17 mg/mg Normal 10 - 20 [facility] COAGULATIONOrdered By: Pepito Irvin on 08-13-2024 aPTT Coag (PPP) [Time] 33.2 s Normal 25.1 - 36.5 second(s) [facility] Comment on above: Interpretive Data: [...] the same coagulation reagent and instrumentation as [facility]. Currently there are no coagulation studies available worldwide for children to 14 days, and no normal ranges. Heparin therapeutic range (represented by Anti-Factor Xa activity of 0.2 - 0.4 U/mL) corresponds to PTT of 56.6 - 109.0 sec. INR Coag (PPP) [Relative time] 1.04 {INR} Invalid Interpretation Code [facility] Comment on above: Interpretive Data: I NR results are specifically intended to assess patients stabilized on long-term Anticoagulation therapy suggested INR s Less Intensive Anticoagulation 2.0 3.0 Conventional Range 3.0 4.5 PT Coag (PPP) [Time] 11.6 s Normal 9.4 - 1 2.5 second(s) [facility] Comment on above: Interpretive Data: [...] the same coagulation reagent and instrumentation as [facility]. Currently there are no coagulation studies available worldwide for children to 14 days, and no normal ranges. ED Clinical Summaryon 2023 ED Clinical Summary ED Clinical Summary [place] [id number] ED Clinical Summary Person Information Name: LIVIA JACOBO/[place] E Age: 63 Years : 1960 Sex: Female Language: Citizen Of [place] PCP: Dorie Luis MD Marital Status: Visit Id: Visit Reason: Chest pain; CP Speciality: Acuity: 2 Enc Type: Observation Med Service: Medical Arrival: 08/13/2024 08:49:35 Discharge: LOS: 000 05:53 Checkin: 08/13/2024 08:49:35 Checkout: 08/13/2024 14:42:51 Dispo Type: Admitted as IP to this [facility] EVENTS: Event Name Event [...] 08/13/2024 14:42:52 08/13/2024 14:42:52 ADDRESS: [address] [place] [id number] PHYS DOC NOTES: MEDICAL INFORMATION: Prescriptions Given: [...] Tablets By Mouth every day. Refills: [facility]. [facility] (Handicap Placrock, 5 years.) Handicap Placard, [...] INFORMATION: Instructions: (more content not included)... Normal [facility] ED Patient Education Noteon 08-13-2024 ED Patient Education Note ED Patient Education Note Normal [facility] ED Patient Summaryon 024 ED Patient Summary ED Patient Summary [place] [id number] Patient Discharge Instructions Person Information Name: LIVIA JACOBO Age: 63 Years Arrival Date: 08/13/2024 08:49:35 Discharge Diagnosis: 1:Chest pain; 2:CAD in [place] artery; 3:HTN (hypertension), benign; 4:COPD (chronic obstructive pulmonary disease); 5:Anxiety and depression; 6:Polyneuropathy; 7:RLS (restless legs syndrome); 8:Current smoker; Depression, unspecified Primary Care Physician: Dorie Luis MD Provider Information Primary Provider: Ainsley Rose M.D. Advanced Health Safety Instructor:Davey Posada PA-C The exam and treatment you received in the Emergency Department were for an urgent problem and are not intended as complete care. It is important that you follow up with a doctor, nurse practitioner, or physician?s instruction assistant principal for ongoing care. If your symptoms become [...] opioids can be used to help relieve [id number] pain and are often prescribed following a [...] be struggling with addiction, tell your health memory care program resident and ask for g (more content not included)... Normal [facility] HEMATOLOGYOrdered By: SYSTEM SYSTEM on 08-13-2024 Basophils/100 [...] Consulting Physician - Sheila POSEY, Tiffany Chavarria [facility] Cardio, XXXX Reason for Your Visit chest pains Your Diagnosis Chest pain, Chest pain CAD in [place] artery HTN (hypertension), benign COPD (chronic obstructive pulmonary disease) Anxiety and depression Polyneuropathy RLS (restless legs syndrome) Current smoker Chest pain Depression, unspecified Tests Performed BMP -- Results Pending -- CBC w/ Auto Diff -- Results Pending -- XR Chest Single View Please visit your patient portal for your results or contact your primary care physician. This Is Your Medications List [facility] [place] (Rosangela Gautam, 5 years.) acetaminophen (acetaminophen [...] PM EST With: Dorie Luis MD Where: [place] [address]- Tuesday 2:30 PM EDT With: Where: [address] [address]- New Follow Up Appointments after Discharge Follow Up with Amilcar Matthews PA-C When: Within 1 to 2 weeks Where: [facility] [place] [address]- [phone] Follow Up with Dorie Luis MD, [facility] When: Within 5 to 7 days Where: [address] [place] [address]- Medications What How Much When Why Instructions [...] ropinirole (ropiniro (more content not included)... Normal [facility] PT & PTTon 08-13-2024 aPTT Coag (PPP) [Time] 33.2 second(s) Normal 25.1-36.5 [facility] Comment on above: Result Comment: Para meter [...] the same coagulation reagent and instrumentation as [facility]. Currently there are no coagulation studies available worldwide for children to 14 days, and no normal ranges. Heparin therapeutic range (represented by Anti-Factor Xa activity of 0.2 - 0.4 U/mL) corresponds to PTT of 56.6 - 109.0 sec. Performed By: #### 1 [id number] #### [facility] [address] [place] [address] INR Coag (PPP) [Relative time] 1.04 {INR} Invalid Interpretation Code [facility] Comment on above: Result Comment: INR results are specifically intended to assess patients stabilized on long-term Anticoagulation therapy suggested INR?s ?Less Intensive Anticoagulation? 2.0 ? 3.0 Conventional Range 3.0 ? 4.5 Performed By: #### 1 [id number] #### [facility] [address] [place] [address] PT Coag (PPP) [Time] 11.6 second(s) Normal 9.4-12.5 [facility] Comment on above: Result Comment: 15 d [...] the same coagulation reagent and instrumentation as [facility]. Currently there are no coagulation studies available worldwide for children to 14 days, and no normal ranges. Performed By: #### 1 [id number] #### [facility] [address] [place] [address] Pre-Arrival Noteon Pre-Arrival Note Pre-Arrival Note Pre-Arrival Summary Name: , Current Date: 08/13/2024 08:55:19 EDT Gender: Female Date of : Age: 63 Pre-Arrival Type: EMS ETA: 08/13/2024 09:05:00 EDT Primary Care Physician: Presenting Problem: cp Pre-Arrival User: Silvino Jones Referring Source: Location: [place] Completion Date/Time: 08/13/2024 08:35:[address] [facility] Emergency Department Pre-Hospital Report Form ___ Vital Signs: Pre-Hospital Report: Treatment in Route: Response to Treatment: Misc. Issues: Normal [facility] Troponinon 08-13-2024 Troponin HS 6.30 pg/mL Low 10.10-27.10 [facility] Comment on above: Result Comment: The 95% CI (Confidence Interval) PPV (Positive Predictive Value) for myocardial infarction in females is 38 pg/mL, in males 51 pg/mL. The results should be used in conjunction with clinical conditions of myocardial infarction. (Access High Sensitivity Troponin I Instructions For Use, Shivani Margo, June 2018) Performed By: #### 2 [id number] #### [facility] [address] [place] [address] Troponin 0 Hr.on 08-13-2024 Troponin HS 4.60 pg/mL Low 10.10-27.10 [facility] Comment on above: Result Comment: The 95% CI (Confidence Interval) PPV (Positive Predictive Value) for myocardial infarction in females is 38 pg/mL, in males 51 pg/mL. The results should be used in conjunction with clinical conditions of myocardial infarction. (Access High Sensitivity Troponin I Instructions For Use, [place], June 2018) Performed By: #### 1 [id number] #### [facility] [address] [place] [address] Troponin 1 Hr.on 08-13-2024 Troponin HS 4.70 pg/mL Low 10.10-27.10 [facility] Comment on above: Result Comment: The 95% CI (Confidence Interval) PPV (Positive Predictive Value) for myocardial infarction in females is 38 pg/mL, in males 51 pg/mL. The results should be used in conjunction with clinical conditions of myocardial infarction. (Access High Sensitivity Troponin I Instructions For Use, [place], June 2018) Performed By: #### 1 [id number] #### [facility] [address] [place] [address] XR Chest Single Viewon 08-13 XR Chest [...] mGy = na DAP = na Normal [facility] eGFRon 08-13-2024 eGFR 96 mL/min/1.73 m2 Normal >=59 [facility] Comment on above: Performed By: #### 1 [id number] #### [facility] [address] [place] [address] Heart and Vascular Office/Cl inic Noteon 07-04-2024 [...] patient will additionally be counseled by the Director Of Research And Development team and in follow-up. CAD: DAPT, beta-tamika, [...] or concerning lesions Assessment/Plan 1. CAD in [place] artery (I25.10: Atherosclerotic heart disease of [place] coronary artery without angina pectoris) (more content not included)... Normal [facility] Comment on above: Result Comment: Elec tronically [...] Luis MD This Is Your Medications [place] [facility] [place] (Rosangela Gautam, 5 years.) albuterol (Albuterol [...] Density Tuesday 1:20 PM EDT With: Where: [address] [address]- 2023 2:30 PM EDT With: Amilcar Matthews PA-C Where: Cardiology Clinic Tuesday 3:30 PM EST With: Dorie Luis MD Where: [address] [address]- Tuesday 2:30 PM EDT With: Where: [address] [address]- You Need to Complete the [...] mg Tab-ER) (more content not included)... 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 Normal [facility] Comment on above: Result Comment: Elec tronically [...] FROM Post PCI 10/13/23 .CAD with known VEHICLE SERVICE AGENT of RCA. I was unable to cross VEHICLE SERVICE AGENT. We are sending her to Dr. Fofana. [...] Diagnostics EKG 05/15/24 SINUS RHYTHM WITH SHORT ID INTERVAL MODERATE ST DEPRESSION [0.05+ mV ST [...] patient will additionally be counseled by the Director Of Research And Development team and in follow-up. CAD: DAPT, beta-tamika, [...] Pt should (more content not included)... Normal [facility] Comment on above: Result Comment: Elec tronically [...] Clinic Tuesday 11:00 AM EDT With: Where: [facility] Medicine [place] Normal [address] [id number] \.br\ Medications\.br\ What How Much When Why [...] for choosing us for your care.\.br\ \.br\ [facility] Medicine Office/Clini c Noteon 05-29-2024 Family Medicine Office/Clinic Note Family Medicine Office/Clinic Note HPI Staff Livia is a 63 year old female presenting for hospital follow up TCM: [place] [facility] Admission date: 05/15/24 Discharge date: 05/16/24 Symptoms [...] 74.9, kg, 05/29/24 15:16:00 EDT, Weight Dosing [facility] 14 day disch [address] 2. Stable angina pectoris (I20.89: Other forms of angina pectoris) - Stable at this time. - Follow up with Cardio Ordered: amoxicillin, 500 mg = 1 cap(s), Oral, q12hr, # 20 cap(s), Refills(s) 0, Pharmacy: [facility], 154, cm, 05/29/24 15:16:00 EDT, Height/Length Dosing, 74.9, kg, 05/29/24 15:16:00 EDT, Weight Dosing TCM [facility] 14 day disch [address] 3. Atherosclerosis of aorta (I70.0: Atherosclerosis of aorta) - NO issues at this time Ordered: amoxicillin, 500 mg = 1 cap(s), Oral, q12hr, # 20 cap(s), Refills(s) 0, [facility], 154, cm, 05/29/24 15:16:00 EDT, Height/Length Dosing, 74.9, kg, 05/29/24 15:16:00 EDT, Weight Dosing Body Mass Index (BMI) documented 3008F Current tobacco non-user 1036F Depression Screening Negative 3352F Influenza immunization administered or previously received 4274F Most recent diastolic blood pressure 80-89 mm Hg 3079F Systolic BP <130 mm Hg (Most Recent) 3074F [facility] 14 day disch 35292 4. Major depressive disorder, recurrent, mild (F33.0: Major depressive disorder, recurrent, mild) - Stable - Sees Psych Ordered: amoxicillin, 500 mg = 1 cap(s), Oral, q12hr, # 20 cap(s), Refills(s) 0, [facility], 154, cm, 05/29/24 15:16:00 EDT, Height/Length Dosing, 74.9, kg, 05/29/24 15:16:00 EDT, Weight Dosing Body Mass Index (BMI) documented 3008F Current tobacco non-user 1036F Depression Screening Negative 3352F Influenza immunization administered or previously received 4274F Most recent diastolic blood pressure 80-89 mm Hg 3079F Systolic BP <130 mm Hg (Most Recent) 3074F [facility] 14 day disch 44189 5. Anxiety and depression (F41.9: Anxiety disorder, [...] BP <130 mm Hg (Most Recent) 3074F [facility] 14 day disch [address] 6. COPD (chronic obstructive pulmonary disease) (J44.9: [...] BP <130 mm Hg (Most Recent) 3074F [facility] 14 day disch 35010 7. HTN (hypertension), benign (I10: Essential (primary) [...] 3008F Current (more content not included)... Normal [facility] Comment on above: Result Comment: Elec tronically Signed By: Fidencio POSEY, Dorie Polk.br\Date and Time Signed: 05/29/24 15:51 EDT Provider Letteron 05-21-2024 Provider Letter Provider Letter May 21, 2024 [place] [address] LIVIA JACOBO 1960 Dear Livia, We have been trying to reach you with no success. It is important that you return our call regarding your recent hospital discharge upon receiving this letter. Also, at the time of your call, please provide us with your current information Thank you for your prompt attention to this matter. Sincerely, Miguel Salazar RN, Pattern Finisher [phone] [facility] CHEMISTRYOrdered By: SYSTEM SYSTEM on 05-16-2024 Cholesterol [...] 05-16-2024 Inpatient Clinical Summary Inpatient Clinical Summary [place] [address] Clinical Summary Person Information: Name: LIVIA JACOBO Age: 63 Years : 1960 Sex: Female PCP: Dorie Luis MD Marital Status: Race: White Ethnicity: Non- or Language: Citizen Of [place] Visit Id: Visit Reason: Shortness of breath; Chest pain; CHEST PAIN Speciality: Acuity: Enc Type: Observation Med Service: Medical Arrival: 05/15/2024 13:15:09 Discharge: Dispo Type: Admitted as IP to this Hosp Address: [place] [id number] Provider Notes: Diagnosis: 1:Chest pain; 2:Dizziness; 3:HTN [...] By Mouth once a day (at bedtime). [facility] Prescription (Handicap Placard, 5 years.) Handicap Placard, [...] Attending Physician: TARA POSEY, Ephraim Consulting Physician: [facility] Cardio, XXXX Referring Physician: Follow up: With: Address: When: Tiffany Jansen [address] [place] [address] [facility] (1) 06/13/2024 9:15 AM Comments: Will be seeing Amilcar EMMANUEL at this appointment With: Address: When: Dorie Luis 05/28/2024 3:00 PM Type Location Start [facility] Follow Up w/TCM [facility] 05/28/2024 3:00 PM 05/28/2024 3:30 PM Confirmed Medicare Wellness Subsequent [facility] 06/12/2024 11:00 AM 06/12/2024 12:00 PM Confirmed Cardiology Follow Up (FT) FT.Cardiology Clinic 06/13/2024 9:15 AM 06/13/2024 9:30 AM Confirmed Patient Education Information: Nonspecific Chest Pain, Adult, [id number] Normal [facility] Inpatient Patient Summaryon 05-16-2024 Inpatient Patient Summary Inpatient Patient Summary [address] [address] Patient Discharge Instructions PERSON INFORMATION Name: LIVIA JACOBO Date of : 1960 Current Date: 05/16/2024 13:15:26 PHYSICIANS Admitting Physician: TARA POSEY, [facility] Primary Care Physician: Dorie Luis MD PCP [...] Follow up: With: Address: When: Tiffany Jansen [address] [place] [address] [facility] (1) Within 2 to 4 weeks Comments: Call for followup appointment With: Address: When: Dorie Luis Within 3 to 5 days Comments: Call for followup appointment In the event that this physician does not participate in your insurance network, please consult with your insurance company to find a nearby participating provider. Type Location [facility] Medicare Wellness Subsequent [facility] [place] 06/12/2024 11:00 AM 06/12/2024 12:00 PM Confirmed Comment: DONNELL Green ALICE, have received the attached patient education materials/instructi ons and have verbalized understanding: Patient Signature Date Clinican/Nurse Signature Date HERE ARE THE MEDICATION CHANGES THAT OCCURRED DURING YOUR HOSPITAL STAY Medications to Continue Taking That Have Changed Medicine [facility] [address], [place] [id number], [phone] START: carvedilol (carvedilol 6.25 mg Tab) 1 [...] Medications to Continue with No Changes Medicine [facility] [address] [facility], [place] [id number], [phone] nitroglycerin (nitroglycerin 0.4 mg sublingual Tab) 1 [...] Next Dose: ranolazi (more content not included)... [facility] Interdisciplinary Note - Layo e Manageron 05-16-2024 Interdisciplinary Note - Cadastral Surveyor Interdisciplinary Note - Cadastral Surveyor CRM to room to discuss DC planning. [...] CRM contact, white board updated. CRM following [facility] Comment on above: Result Comment: Elec tronically Signed By: Shikha Morales\.br\Date and Time Signed: 05/16/24 10:42 EDT Interdisciplinary Note - Soc ial Workeron 05-16-2024 Interdisciplinary Note - Manager Party Interdisciplinary Note - Manager Party There was a system generated request to review Advance Directives. SW spoke with Livia and was encouraged her to bring in copies from home to scan. Her health care POA is Shikha Nolen's [phone]. [facility] Interdisciplinary Note - Manager Party Interdisciplinary Note - Manager Party There was a system generated request to review Advance Directives. SW spoke with Livia and was encouraged to bring in copies to scan. She shared that here health care POA is [place] [phone]. Normal [facility] Lipid Panelon 05-16-2024 Cholesterol [Mass/Vol] 129 mg/dL Normal 120-200 [facility] Comment on above: Performed By: #### 2 [id number] #### [facility] [address] [place] [address] Cholesterol in HDL [Mass/Vol] 47 mg/dL Invalid Interpretation Code [facility] Comment on above: Result Comment: '>= 60 LOW RISK' '<= 40 HIGH RISK' Performed By: #### 2 [id number] #### [facility] [address] [place] [address] Cholesterol in LDL [Mass/Vol] 75 mg/dL Normal <=129 [facility] Comment on above: Performed By: #### 2 [id number] #### [facility] [address] [place] [address] Cholesterol in VLDL [Mass/Vol] 9 mg/dL Normal 7-40 [facility] Comment on above: Performed By: #### 2 [id number] #### [facility] [address] [place] [address] Triglyceride [Mass/Vol] 44 mg/dL Normal <=149 [facility] Comment on above: Performed By: #### 2 [id number] #### [facility] [address] [place] [address] BMPon 05-15-2024 Anion gap [Moles/Vol] 11 mmol/L Normal 6-16 [facility] Comment on above: Performed By: #### 2 240231 #### [facility] [address] [place] [address] Calcium [Mass/Vol] 9.1 mg/dL Normal 8.9-11.1 [facility] Comment on above: Performed By: #### 2 [id number] #### [facility] [address] [place] [address] Chloride [Moles/Vol] 106 mmol/L Normal 101-111 [facility] Comment on above: Performed By: #### 2 [id number] #### [facility] [address] [place] [address] CO2 [Moles/Vol] 27 mmol/L Normal 21-31 [facility] Comment on above: Performed By: #### 2 [id number] #### [facility] [address] [place] [address] Creatinine [Mass/Vol] 0.5 mg/dL Normal 0.5-1.3 [facility] Comment on above: Performed By: #### 2 [id number] #### [facility] [address] [place] [address] Glucose [Mass/Vol] 100 mg/dL Normal 55-199 [facility] Comment on above: Performed By: #### 2 [id number] #### [facility] [address] [place] [address] Potassium [Moles/Vol] 3.7 mmol/L Normal 3.5-5.3 [facility] Comment on above: Performed By: #### 2 [id number] #### [facility] [address] [place] [address] Sodium [Moles/Vol] 140 mmol/L Normal 135-145 [facility] Comment on above: Performed By: #### 2 [id number] #### [facility] [address] [place] [address] Urea nitrogen [Mass/Vol] 11 mg/dL Normal 5-21 [facility] Comment on above: Performed By: #### 2 [id number] #### [facility] [address] [place] [address] Urea nitrogen/Creatinine [Mass ratio] 22 No Units High 10-20 [facility] Comment on above: Performed By: #### 2 [id number] #### [facility] [address] [place] [address] CBC w/ Auto Diffon 4 Basophils/100 WBC (Bld) 0.8 % Normal 0.0-2.0 [facility] Comment on above: Performed By: #### 2 [id number] #### [facility] [address] [place] [address] Basophils/Leukocytes Auto (Bld) [Pure # fraction] 0.0 E9/L Normal 0.0-0.2 [facility] Comment on above: Performed By: #### 2 [id number] #### [facility] [address] [place] [address] Eosinophils (Bld) [#/Vol] 0.1 E9/L Normal 0.0-0.5 [facility] Comment on above: Performed By: #### 2 075265 #### [facility] [address] [place] [address] Eosinophils/100 WBC (Bld) 2.6 % Normal 0.0-8.0 [facility] Comment on above: Performed By: #### 2 [id number] #### [facility] [address] [place] [address] Erythrocyte distribution width (RBC) [Ratio] 13.7 % Normal 10.9-14.2 [facility] Comment on above: Performed By: #### 2 083028 #### [facility] [address] [place] [address] Hematocrit (Bld) [Volume fraction] 43.6 % Normal 34.0-46.0 [facility] Comment on above: Performed By: #### 2 [id number] #### [facility] [address] [place] [address] Hemoglobin (Bld) [Mass/Vol] 15.4 g/dL Normal 12.0-16.0 [facility] Comment on above: Performed By: #### 2 [id number] #### [facility] [address] [place] [address] Lymphocytes (Bld) [#/Vol] 1.7 E9/L Normal 1.0-4.0 [facility] Comment on above: Performed By: #### 2 277365 #### [facility] [address] [place] [address] Lymphocytes/100 WBC (Bld) 33.2 % Normal 14.0-50.0 [facility] Comment on above: Performed By: #### 2 [id number] #### [facility] [address] [place] [address] MCH (RBC) [Entitic mass] 33.9 pg Normal 27.0-34.0 [facility] Comment on above: Performed By: #### 2 595328 #### [facility] [address] [place] [address] MCHC (RBC) [Mass/Vol] 35.4 g/dL Normal 31.4-36.0 [facility] Comment on above: Performed By: #### 2 [id number] #### [facility] [address] [place] [address] MCV (RBC) [Entitic vol] 95.8 fL Normal 80.0-100.0 [facility] Comment on above: Performed By: #### 2 105832 #### [facility] [address] [place] [address] Monocytes (Bld) [#/Vol] 0.5 E9/L Normal 0.2-1.0 [facility] Comment on above: Performed By: #### 2 349168 #### [facility] [address] [place] [address] Neutrophils (Bld) [#/Vol] 2.8 E9/L Normal 2.0-7.5 [facility] Comment on above: Performed By: #### 2 779653 #### [facility] [address] [place] [address] Neutrophils/100 WBC (Bld) 54.4 % Normal 36.0-75.0 [facility] Comment on above: Performed By: #### 2 [id number] #### [facility] [address] [place] [address] Platelet 216.0 E9/L Normal 150.0-500.0 [facility] Comment on above: Performed By: #### 2 711312 #### [facility] [address] [place] [address] Platelet mean volume (Bld) [Entitic vol] 7.0 fL Normal 6.4-10.8 [facility] Comment on above: Performed By: #### 2 701889 #### [facility] [address] [place] [address] RBC (Bld) [#/Vol] 4.6 E12/L Normal 4.3-5.9 [facility] Comment on above: Performed By: #### 2 [id number] #### [facility] [address] [place] [address] WBC corrected for nucl RBC Auto (Bld) [#/Vol] 5.2 E9/L Normal 4.0-11.0 [facility] Comment on above: Performed By: #### 2 [id number] #### [facility] [address] [place] [address] CHEMISTRYOrdered By: Jose Lopez on 05-15-2024 Troponin [...] High Sensitivity Troponin I Instructions For Use, [place], June 2018) CHEMISTRYOrdered By: SYSTEM SYSTEM on [...] High Sensitivity Troponin I Instructions For Use, [place], June 2018) Troponin HS 5.80 pg/mL Low [...] 33.1 s Normal 25.1 - 36.5 second(s) [facility] Auto Co[facility] Comment on above: Interpretive Data: [...] the same coagulation reagent and instrumentation as [facility]. Currently there are no coagulation studies available worldwide for children to 14 days, and no normal ranges. Heparin therapeutic range (represented by Anti-Factor Xa activity of 0.2 - 0.4 U/mL) corresponds to PTT of 56.6 - 109.0 sec. INR Coag (PPP) [Relative time] 0.90 {INR} Invalid Interpretation Code [facility] Comment on above: Interpretive Data: I NR results are specifically intended to assess patients stabilized on long-term Anticoagulation therapy suggested INR s Less Intensive Anticoagulation 2.0 3.0 Conventional Range 3.0 4.5 PT Coag (PPP) [Time] 10.1 s Normal 9.4 - 1 2.5 second(s) [facility] Comment on above: Interpretive Data: [...] the same coagulation reagent and instrumentation as [facility]. Currently there are no coagulation studies available worldwide for children to 14 days, and no normal ranges. ED Clinical Summaryon 2023 ED Clinical Summary ED Clinical Summary [address] [address] ED Clinical Summary Person Information Name: LIVIA JACOBO/[facility] Age: 63 Years : 1960 Sex: Female Language: Citizen Of [place] PCP: Dorie Luis MD Marital Status: Visit Id: Visit Reason: Shortness of breath; Chest pain; CHEST PAIN Speciality: Acuity: 2 Enc Type: Observation Med Service: Emergency Arrival: 05/15/2024 13:15:09 Discharge: LOS: 000 02:49 Checkin: 05/15/2024 13:15:09 Checkout: 05/15/2024 16:04:14 Dispo Type: Admitted as IP to this [facility] EVENTS: Event Name Event [...] 05/15/2024 16:03:22 RT Request 05/15/2024 16:03:22 ADDRESS: [facility] [id number] [facility] DOC NOTES: MEDICAL INFORMATION: Prescriptions Given: Medications [...] 25 mg Tab) 3 tablets at bedtime. [facility] [place] (Handicap Placard, 5 years.) Handicap Placard, [...] 9:Obese; 10:On deep vein thrombosis (DVT) prophylaxis [facility] ED Note-Physicianon 05-15-20 ED Note-Physician ED Note-Physician Basic Information Time Seen: Garciaruthie BrooksAisnley 05/15/2024 13:16 Chief Complaint pt presents via [...] and Complexity of Problems Differential Diagnosis: [] [facility] Data External documents reviewed: [] My [...] artery disease) (I25.10: Atherosclerotic heart disease of nightm[place] coronary artery without angina pectoris) 7. History of ST elevation myocardial infarction (STEMI) (I25.2: Old myocardial infarction) 8. Tobacco dependence (F17.200: Nicotine dependence, unspecified, uncomplicated) 9. Obese (E66.9: Obesity, unspecified) Orders: aspirin, 162 mg = 2 tab(s), Tab-Chew, Oral, Once, Stop date 05/15/24 13:24:00 EDT, STAT, Start (more content not included)... Normal [facility] Comment on above: Result Comment: Elec tronically Signed By: Ainsley Rose M.D..jihan\Date and Time Signed: 05/15/24 15:55 EDT ED Patient Education Noteon 05-15-2024 ED Patient Education Note ED Patient Education Note Normal [facility] ED Patient Summaryon 024 ED Patient Summary ED Patient Summary [place] [id number] Patient Discharge Instructions Person Information Name: LIVIA [...] Information Primary Provider: Ainsley Rose M.D. Advanced Health Safety Instructor:None The exam and treatment you received in the Emergency Department were for an urgent problem and are not intended as complete care. It is important that you follow up with a doctor, nurse practitioner, or physician?s instruction assistant principal for ongoing care. If your symptoms become [...] opioids can be used to help relieve ilqxzjxe-wz-padqrx pain and are often prescribed following a [...] with addiction (more content not included)... Normal [facility] EMS Documentationon 05-15-20 EMS Documentation Report Please click on link to see report Normal [facility] Comment on above: Result Comment: Miss ing [...] 05-15-2024 Magnesium [Mass/Vol] 1.9 mg/dL Normal 1.3-2.4 [facility] Comment on above: Performed By: #### 2 [id number] #### [facility] [address] [place] [address] PT & PTTon 05-15-2024 aPTT Coag (PPP) [Time] 33.1 second(s) Normal 25.1-36.5 [facility] Comment on above: Result Comment: Para meter [...] the same coagulation reagent and instrumentation as [facility]. Currently there are no coagulation studies available worldwide for children to 14 days, and no normal ranges. Heparin therapeutic range (represented by Anti-Factor Xa activity of 0.2 - 0.4 U/mL) corresponds to PTT of 56.6 - 109.0 sec. Performed By: #### 1 [id number] #### [facility] [address] [place] [address] INR Coag (PPP) [Relative time] 0.90 {INR} Invalid Interpretation Code [facility] Comment on above: Result Comment: INR results are specifically intended to assess patients stabilized on long-term Anticoagulation therapy suggested INR?s ?Less Intensive Anticoagulation? 2.0 ? 3.0 Conventional Range 3.0 ? 4.5 Performed By: #### 1 [id number] #### [facility] [address] [place] [address] PT Coag (PPP) [Time] 10.1 second(s) Normal 9.4-12.5 [facility] Comment on above: Result Comment: 15 d [...] the same coagulation reagent and instrumentation as [facility]. Currently there are no coagulation studies available worldwide for children to 14 days, and no normal ranges. Performed By: #### 1 [id number] #### [facility] [address] [place] [address] Pre-Arrival Noteon Pre-Arrival Note Pre-Arrival Note Pre-Arrival Summary Name: , Current Date: 05/15/2024 13:15:32 EDT Gender: Date of : Age: Pre-Arrival Type: EMS ETA: 05/15/2024 13:43:00 EDT Primary Care Physician: Presenting Problem: chest pain Pre-Arrival User: Sully Arenas RN Referring Source: Location: [place] Completion Date/Time: 05/15/2024 13:13:[address] [facility] Emergency Department Pre-Hospital Report Form ___ Vital Signs: 3 nitro given- pain better Pre-Hospital Report: Treatment in Route: Response to Treatment: Misc. Issues: Normal [facility] Troponin 0 Hr.on 05-15-2024 Troponin HS 5.70 pg/mL Low 10.10-27.10 [facility] Comment on above: Result Comment: The 95% CI (Confidence Interval) PPV (Positive Predictive Value) for myocardial infarction in females is 38 pg/mL, in males 51 pg/mL. The results should be used in conjunction with clinical conditions of myocardial infarction. (Access High Sensitivity Troponin I Instructions For Use, [place], June 2018) Performed By: #### 1 [id number] #### [facility] [address] [place] [address] Troponin 1 Hr.on 05-15-2024 Troponin HS 5.80 pg/mL Low 10.10-27.10 [facility] Comment on above: Order Comment: 1430 Result Comment: The 95% CI (Confidence Interval) PPV (Positive Predictive Value) for myocardial infarction in females is 38 pg/mL, in males 51 pg/mL. The results should be used in conjunction with clinical conditions of myocardial infarction. (Access High Sensitivity Troponin I Instructions For Use, [place], June 2018) Performed By: #### 1 [id number] #### [facility] [address] [place] [address] Troponin 3 Hr.on 05-15-2024 Troponin HS 6.30 pg/mL Low 10.10-27.10 [facility] Comment on above: Result Comment: The 95% CI (Confidence Interval) PPV (Positive Predictive Value) for myocardial infarction in females is 38 pg/mL, in males 51 pg/mL. The results should be used in conjunction with clinical conditions of myocardial infarction. (Access High Sensitivity Troponin I Instructions For Use, [place], June 2018) Performed By: #### 1 [id number] #### [facility] [address] [place] [address] Troponin 6 Hr.on 05-15-2024 Troponin HS 5.70 pg/mL Low 10.10-27.10 [facility] Comment on above: Result Comment: The 95% CI (Confidence Interval) PPV (Positive Predictive Value) for myocardial infarction in females is 38 pg/mL, in males 51 pg/mL. The results should be used in conjunction with clinical conditions of myocardial infarction. (Access High Sensitivity Troponin I Instructions For Use, Shivani Margo, June 2018) Performed By: #### 1 [id number] #### [facility] [address] [place] [address] XR Chest Single Viewon 05-15 XR Chest [...] mGy = na DAP = na Normal [facility] eGFRon 05-15-2024 eGFR 104 mL/min/1.73 m2 Normal >=59 [facility] Comment on above: Order Comment: Order added by Discern Expert. Performed By: #### 1 [id number] #### [facility] [address] [place] [address] ECG 12-Leadon 03-29-2024 ECG 12-Lead [id number] 54#1.00TIFF Normal [facility] ED Note-Physicianon 03-29-20 ED Note-Physician [id number] 5#1.00TIFF [facility] RAD - MISCon 03-29-2024 RAD - MISC [id number] A9#1.00TIFF [facility] Provider Letteron 03-28-2024 Provider Letter March 28, 2024 LIVIA JACOBO [address] [place] [id number] : 1960 Dear Livia , We have [...] prompt attention to this matter. Sincerely, Family [address] [address] [facility] Consultation Noteon 03-09-20 24 Consultation Note [id number] BF#1.00TIFF [facility] Consultation Note [id number] 88#1.00TIFF [facility] Outside Recordson 03-08-2024 Outside Records [id number] 304#1.00TIFF [facility] Heart and Vascular Office/Cl inic Noteon 02-02-2024 [...] with voice recognition artificial intelligence software, specifically [employer], [employer] and or [employer]. Substitutions may have occurred due to the inherent limitations of voice recognition and artificial intelligence software. Documentation services were performed after patient or guardian consented to allow [employer] to record this visit. DESTINY soil fertility specialist and provider reviewed before signing. DESTINY: [...] tab(s), SubLi (more content not included)... Normal [facility] Comment on above: Result Comment: Elec tronically Signed By: Sheila POSEY, Tiffany Chavarria\.br\Date and Time Signed: 02/02/24 10:55 EDT\.br\Electronically Co-Signed By: Soren Casillas\.br\Date and Time Co-Signed: 01/06/24 15:48 EST Physician Orderon 01-09-2024 Physician Order [id number] 239#1.00TIFF Normal [facility] RAD - CT Reporton 01-05-[address] - [address] Report [id number] 09#1.00TIFF Normal [facility] Consultation Noteon 12-08-19 Consultation Note [id number] C1#1.00TIFF Normal [facility] Heart and Vascular Office/Cl inic Noteon 12-08-2023 [...] of her 2nd and 3rd stents. Her panel monitor expresses a concern about potential hypotension. The [...] her visit to the emergency room at [place]. The patient has an appointment scheduled with [...] normal psychiatric thoughts. Assessment/Plan 1. 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 An unsuccessful crossing by [...] follow up in a few months in [place]. We will keep her previous appointment in 12/2023. 2. Current smoker (F17.200: Nicotine dependence, unspecified, uncomplicated) We strongly recommend to quit tobacco use. (more content not included)... [facility] Comment on above: Result Comment: Elec tronically Signed By: Sheila POSEY, Tiffany Chavarria\.br\Date and Time Signed: 12/08/23 06:46 EST\.br\Electronically Co-Signed By: Soren Casillas\.br\Date and Time Co-Signed: 12/01/23 17:27 EST Consent for Treatmenton 11-14 Consent for Treatment [id number] 71#1.00TIFF [facility] Outside EDon 12-01-2023 Outside ED [id number] 161#1.00TIFF [facility] Outside Labson 12-01-2023 Outside Labs [id number] 997#1.00TIFF Normal [facility] Outside Operativeon 12-01-19 24 Outside Operative [id number] 636#1.00TIFF Normal [facility] Outside Radiologyon 12-01-19 24 Outside Radiology [id number] 641#1.00TIFF Normal [facility] Physician Orderon 12-01-2023 Physician Order [id number] 650#1.00TIFF Normal [facility] ED Note-Physicianon 11-02-20 ED Note-Physician [id number] 80#1.00TIFF Normal [facility] RAD - MISCon 11-02-2023 RAD - MISC [id number] BE#1.00TIFF Normal [facility] Prescriptions/Work Noteson 1 12-28-2022 Prescriptions/Work Notes [id number] 541#1.00TIFF Normal [facility] Activated clotting timeon ACT Coag (Bld) 286 s High 89-169 [facility] Comment on above: Result Comment: Targ et ACT range will vary based on the patient population, clinical status, and surgical intervention occurring. Performed By: #### 3 184-9 #### ANDREE TONY ([id number]) [facility] ([facility]) [address] [place] [address] Basic metabolic 2000 panelon 10-26-2023 Anion gap [Moles/Vol] 11 mmol/L Normal 09-02 [facility] Comment on above: Performed By: #### 2 4321-2 #### ANDREE TONY ([id number]) [facility]) [address] [place] [address] Calcium [Mass/Vol] 8.5 mg/dL Low 8.6-10.3 [facility] Comment on above: Performed By: #### 2 4321-2 #### ANDREE TONY ([id number]) [facility]) [address] [place] [address] Chloride [Moles/Vol] 106 mmol/L Normal 98-107 [facility] Comment on above: Performed By: #### 2 4321-2 #### ANDREE TONY ([id number]) [facility]) [address] [place] [address] CO2 [Moles/Vol] 25 mmol/L Normal 21-32 [facility] Comment on above: Performed By: #### 2 4321-2 #### ANDREE TONY ([id number]) [facility]) [address] [place] [address] Creatinine [Mass/Vol] 0.58 mg/dL Normal 0.50-1.05 [facility] Comment on above: Performed By: #### 2 432-2 #### ANDREE TONY ([id number]) [facility]) [address] [place] [address] GFR/1.73 sq M.predicted MDRD (S/P/Bld) [Vol rate/Area] mL/min/{1.73_m2} Normal >60 [facility] Comment on above: Result Comment: Calc ulations of estimated GFR are performed using the 2020 CKD-EPI Study Refit equation without the race variable for the IDMS-Traceable creatinine methods. https://jasn.asnjournals.org/content/early/ASN.5794965 988 Performed By: #### 2 4321-2 #### ANDREE TONY ([id number]) [facility]) [address] [place] [address] Glucose [Mass/Vol] 87 mg/dL Normal 74-99 [facility] Comment on above: Performed By: #### 2 4321-2 #### ANDREE TONY ([id number]) [facility]) [address] [place] [address] Potassium [Moles/Vol] 5.4 mmol/L High 3.5-5.3 [facility] Comment on above: Result Comment: GEOAVNI COTE HEMOLYSIS DETECTED. The result may be falsely elevated due to hemolysis or other interferents. Clinical correlation is recommended. Repeat testing may be considered. Performed By: #### 2 4321-2 #### ANDREE TONY ([id number]) [facility] ([facility]) [address] [place] [address] Sodium [Moles/Vol] 137 mmol/L Normal 136-145 [facility] Comment on above: Performed By: #### 2 4321-2 #### ANDREE TONY ([id number]) [facility]) [address] [place] [address] Urea nitrogen [Mass/Vol] 13 mg/dL Normal 6-23 [facility] Comment on above: Performed By: #### 2 4321-2 #### ANDREE TONY ([id number]) [facility] [address] [place] [address] Anion gap [Moles/Vol] 11 mmol/L 10 - 20 mmol/L [facility] Calcium [Mass/Vol] 8.5 mg/dL Low 8.6 - 10.3 mg/dL [facility] Chloride [Moles/Vol] 106 mmol/L 98 - 107 mmol/L [facility] CO2 [Moles/Vol] 25 mmol/L 21 - 32 mmol/L [facility] Creatinine [Mass/Vol] 0.58 mg/dL 0.50 - 1.05 mg/dL [facility] GFR/1.73 sq M.predicted MDRD (S/P/Bld) [Vol rate/Area] - PINF [facility] Comment on above: Calculations of henry mated GFR are performed using the 2020 CKD-EPI Study Refit equation without the race variable for the IDMS-Traceable creatinine methods. https://jasn.asnjournals.org/content//ASN.4581898 988 Glucose [Mass/Vol] 87 mg/dL 74 - 99 mg/dL [facility] Interpretation and review of laboratory results Abnormal [facility] Potassium [Moles/Vol] 5.4 mmol/L High 3.5 - 5.3 mmol/L [facility] Comment on above: MARKED HEMOLYSIS DET ECTED. The result may be falsely elevated due to hemolysis or other interferents. Clinical correlation is recommended. Repeat testing may be considered. Sodium [Moles/Vol] 137 mmol/L 136 - 145 mmol/L [facility] Urea nitrogen [Mass/Vol] 13 mg/dL 6 - 23 mg/dL [facility] CARDIAC CATHETERIZATION - CO RONARYon 10-26-2023 CARDIAC CATHETERIZATION - CORONARY [facility], Director Of Research And Development, [address] [place] [address] Cardiovascular Catheterization Report Patient Name: LIVIA JACOBO Performing Physician: Dawit Castrejon MD Study Date: 10/26/2023 Verifying Physician: Dawit Castrejon MD MRN/PID: [id number] Property Insurance Claims Examiner/Co-scr ub: Ordering Provider: Dawit CASTREJON Date of /Age: 1210/17/1960 / 63 years Fellow: [id number] Jacob Garcia MD Gender: F Fellow: [id number] Bertha Santoyo MD Study: PCI - Percutaneous [...] a modified Seldinger technique. Subsequently a 6 [place] sheath was placed retrograde in the right femoral artery. After infiltration with 2% Lidocaine, a second arterial access was obtained via the left femoral artery with a modified Seldinger technique and a 6 [place] sheath was placed. This second arterial access [...] kit was used to reduce a 6 [place] 45 cm sheath into the right femoral artery. Ultrasound guidance with a micropuncture kit was used to introduce a 6 [place] 45 cm sheath into the left femoral artery. Heparin was given for an ACT greater than 300 during the entire case. Patient is chronically on aspirin and Brilinta. A 6 [place] AL 0.75 guiding catheter was used engage the right coronary system. A 6 [place] EBU 3.75 guiding catheter was shortened and used to engage the left coronary system. A BMW wire was used to wire the circumflex artery. Beverley blue wire was used to advance a Corsair pro 135 and a 6 [place] trap liner into the RCA. A Mongo wire was used to wire the true lumen into the distal RCA. This was confirmed by retrograde angiography as well as wire movement. The microcatheter was advanced. Beverley blue wire was advanced into the PLB. Predilation wa (more content not included)... Normal [facility] CBC panel Auto (Bld)on 10-26 Erythrocyte distribution width (RBC) [Ratio] 13.3 % Normal 11.5-14.5 [facility] Comment on above: Performed By: #### 5 8410-2 #### ANDREE TONY ([id number]) [facility] ([facility]) [address] [place] [address] Hematocrit (Bld) [Volume fraction] 37.5 % Normal 36.0-46.0 [facility] Comment on above: Performed By: #### 5 8410-2 #### ANDREE TONY ([id number]) [facility] ([facility]) [address] [place] [address] Hemoglobin (Bld) [Mass/Vol] 13.0 g/dL Normal 12.0-16.0 [facility] Comment on above: Performed By: #### 5 8410-2 #### ANDREE TONY ([id number]) [facility] ([facility]) [address] [place] [address] MCH (RBC) [Entitic mass] 33.0 pg Normal 26.0-34.0 [facility] Comment on above: Performed By: #### 5 8410-2 #### ANDREE TONY ([id number]) [facility] ([facility]) [address] [place] [address] MCHC (RBC) [Mass/Vol] 34.7 g/dL Normal 32.0-36.0 [facility] Comment on above: Performed By: #### 5 8410-2 #### ANDREE TONY ([id number]) [facility] ([facility]) [address] [place] [address] MCV (RBC) [Entitic vol] 95 fL Normal 80-100 [facility] Comment on above: Performed By: #### 5 8410-2 #### ANDREE TONY ([id number]) [facility] ([facility]) [address] [place] [address] Nucleated RBC/100 WBC (Bld) [Ratio] 0.0 /100 WBCs Normal 0.0-0.0 [facility] Comment on above: Performed By: #### 5 8410-2 #### ANDREE TONY ([id number]) [facility] ([facility]) [address] [place] [address] Platelets (Bld) [#/Vol] 240 x10*3/uL Normal 150-450 [facility] Comment on above: Performed By: #### 5 8410-2 #### ANDREE TONY ([id number]) [facility] ([facility]) [address] [place] [address] RBC (Bld) [#/Vol] 3.94 x10*6/uL Low 4.00-5.20 [facility] Comment on above: Performed By: #### 5 8410-2 #### ANDREE TONY ([id number]) [facility] ([facility]) [address] [place] [address] WBC (Bld) [#/Vol] 4.4 x10*3/uL Normal 4.4-11.3 [facility] Comment on above: Performed By: #### 5 8410-2 #### ANDREE TONY ([id number]) [facility] ([facility]) [address] [place] [address] Erythrocyte distribution width (RBC) [Ratio] 13.3 % 11.5 - 14.5 % [facility] Hematocrit (Bld) [Volume fraction] 37.5 % 36.0 - 46.0 % [facility] Hemoglobin (Bld) [Mass/Vol] 13.0 g/dL 12.0 - 16.0 g/dL [facility] Interpretation and review of laboratory results Abnormal [facility] MCH (RBC) [Entitic mass] 33.0 pg 26.0 - 34.0 pg [facility] MCHC (RBC) [Mass/Vol] 34.7 g/dL 32.0 - 36.0 g/dL [facility] MCV (RBC) [Entitic vol] 95 fL 80 - 100 fL [facility] Nucleated RBC/100 WBC (Bld) [Ratio] 0.0 % [facility] Platelets (Bld) [#/Vol] 240 10*3/uL [facility] RBC (Bld) [#/Vol] 3.94 10*6/uL Low [facility] WBC (Bld) [#/Vol] 4.4 10*3/uL [facility] Cardiac catheterization stud yon 10-26-2023 [facility], Director Of Research And Development, [address] [place] [address] Cardiovascular Catheterization Report Patient Name: LIVIA JACOBO Performing Physician: Dawit Castrejon MD Study Date: 10/26/2023 Verifying Physician: Dawit Castrejon MD MRN/PID: [id number] Property Insurance Claims Examiner/Co-scr ub: Ordering Provider: Dawit CASTREJON Date of /Age: 1210/17/1960 / 63 years Fellow: [id number] Jacob Garcia MD Gender: F Fellow: [id number] Bertha Santoyo MD Study: PCI - Percutaneous Coronary Intervention Additional Study: IVUS - Intravascular Ultrasound Indications: LIVIA JAOCBO is a 63 year old female who [...] a modified Seldinger technique. Subsequently a 6 [place] sheath was placed retrograde in the right femoral artery. After infiltration with 2% Lidocaine, a second arterial access was obtained via the left femoral artery with a modified Seldinger technique and a 6 [place] sheath was placed. This second arterial access [...] kit was used to reduce a 6 [place] 45 cm sheath into the right femoral artery. Ultrasound guidance with a micropuncture kit was used to introduce a 6 [place] 45 cm sheath into the left femoral artery. Heparin was given for an ACT greater than 300 during the entire case. Patient is chronically on aspirin and Brilinta. A 6 Paraguayan AL 0.75 guiding catheter was used engage the right c (more content not included)... Bandar Edwards MD - 10/26/2023 [facility], Director Of Research And Development, [address] [place] [id number] Cardiovascular Catheterization Report Patient Name: LIVIA JACOBO Performing Physician: [id number] Castrejon MD Study Date: 10/26/2023 Verifying Physician: Dawit Castrejon MD MRN/PID: [id number] Property Insurance Claims Examiner/Co-scr ub: Ordering Provider: [id number] CASTREJON Date of /Age: 1210/17/1960 / 63 years Fellow: [id number] Jacob Garcia MD Gender: F Fellow: [id number] Bertha Santoyo MD Study: PCI - Percutaneous [...] a modified Seldinger technique. Subsequently a 6 Paraguayan sheath was placed retrograde in the right femoral artery. After infiltration with 2% Lidocaine, a second arterial access was obtained via the left femoral artery with a modified Seldinger technique and a 6 Paraguayan sheath was placed. This second arterial access [...] kit was used to reduce a 6 Paraguayan 45 cm sheath into the right femoral artery. Ultrasound guidance with a micropuncture kit was used to introduce a 6 Paraguayan 45 cm sheath into the left femoral artery. Heparin was given for an ACT greater than 300 during the entire case. Patient is chronically on aspirin and Brilinta. A 6 Par[place]ayan AL 0.75 guiding catheter was used engage the right coronary system. A 6 Par[place]ayan EBU 3.75 guiding catheter was shortened and used to engage the left coronary system. A BMW wire was used to wire the circumflex artery. Beverley blue wire was used to advance a Corsair pro 135 and a 6 [place]ayan trap liner into the RCA. A Mongo wire was used to wire the true lumen into the distal RCA. This was confirmed by retrograde angiography (more content not included)... [facility] Work Phone: Cardiac catheterization stud yOrdered By: Bandar Castrejon on 10-26-2023 [facility] Work Phone: Coagulation tissue factor in ducedon 10-26-2023 PT Coag (PPP) [Time] 10.8 s Normal 9.8-12.8 [facility] Comment on above: Performed By: #### 5 902-2 #### ANDREE TONY ([id number]) [facility] ([facility]MC) [address] [place] [address] ECG 12-LEADon 10-26-2023 ECG 12-LEAD Ventricular Rate 67 Atrial Rate 67 P-R Interval 146 QRS Duration 84 Q-T Interval 448 QTC Calculation(Bazett) 473 P Cherokee 66 R Cherokee 41 T Cherokee 91 QRS Count 11 Q Onset 225 P Onset 152 P Offset 211 T Offset 449 QTC Fredericia 465 Diagnosis Normal sinus rhythm ST & T wave abnormality, consider anterolateral ischemia Prolonged QT Abnormal ECG Confirmed by Omero Rodriguez ([id number]) on 10/28/2023 3:51:15 PM Normal [facility] ECG 12-LEAD Ventricular Rate 75 Atrial Rate 75 P-R Interval 140 QRS Duration 82 Q-T Interval 396 QTC Calculation(Bazett) 442 P Cherokee 58 R Cherokee 31 T Cherokee 181 QRS Count 13 Q Onset 212 P Onset 142 P Offset 203 T Offset 410 QTC Fredericia 426 Diagnosis Normal sinus rhythm T wave abnormality, consider inferolateral ischemia Abnormal ECG Confirmed by Omero Rodriguez ([id number]) on 10/28/2023 3:51:10 PM Normal [facility] PT Coag (PPP) [Time]on 10-26 INR Coag (PPP) [Relative time] 1.0 Normal 0.9-1.1 [facility] Comment on above: Performed By: #### 5 902-2 #### ANDREE CHAVO ([id number]) [facility] ([facility]) [address] [place] [address] PT Coag (PPP) [Time]Ordered By: Jamil Fine on 10-26-2023 INR Coag (PPP) [Relative time] 1.0 {INR} 0.9 - 1.1 [facility] Interpretation and review of laboratory results Normal [facility] Protime-INROrdered By: Frederick Franklin on 10-26-2023 PT Coag (PPP) [Time] 10.8 s [facility] Consent for Treatmenton 10-14 Consent for Treatment [id number] 33#1.00TIFF Normal [facility] US Carotid Duplex Bilateralo n 10-25-2023 US [...] Criteria Committee. Vascular Medicine 2020; https://journals.sa gepub.com/doi/full/ 10.1177/8173104L428 400087 Ordering Provider: Tiffany Jansen FINAL REPORT Dictated: 10/25/2023 4:07 pm Edmund Arce M.D. Signed (Electronic Signature): 10/25/2023 4:07 pm Signed by: Edmund Arce M.D. Transcribed by: JEANINE Technologist: NORAH Technical Comments Velocities Right Vert. Antegrade Yes Velocities Left Vert. Antegrade Yes Normal [facility] No Panel Informationon 10-24 Study performed outside the system. Official study report is not available here and may be obtained from the performing facility. 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 1. CAD CAD with known VEHICLE SERVICE AGENT of RCA. I was unable to cross VEHICLE SERVICE AGENT. We are sending her to Dr. Fofana. [...] with voice recognition artificial intelligence software, specifically [employer], [employer] and or [employer]. Substitutions may have occurred due to the inherent limitations of voice recognition and artificial intelligence software. Documentation services were performed after patient or guardian consented to allow [employer] to r (more content not included)... Normal [facility] Comment on above: Result Comment: Elec tronically Signed By: Sheila POSEY, Tiffany Chavarria\.br\Date and Time Signed: 10/13/23 19:47 EST\.br\Electronically Co-Signed By: Jenn Bañuelos\.br\Date and Time Co-Signed: 10/13/23 17:27 EST Physician Orderon 10-13-2023 Physician Order [id number] 534#1.00TIFF Normal [facility] Provider Letteron 10-10-2023 Provider Letter October 10, 2023 LIVIA JACOBO [address] [place] [address] : 1960 Dear Livia , We have [...] this matter. Sincerely, [facility] [address] [address] [facility] Heart and Vascular Office/Cl inic Noteon 10-08-2023 [...] still having ongoing symptoms. 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 Chest pressure (R07.89: Other chest pain) She showed no improvement with Imdur. 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 with me. Follow up in 6 weeks in [place]. Portions of this record may have been created with voice recognition artificial intelligence software, specifically [employer], [employer] and or [employer]. Substitutions may have occurred due to the inherent limitations of voice recognition and artificial intelligence software. Documentation services were performed after patient or guardian consented to allow [employer] to record this visit. DESTINY soil fertility specialist and provider reviewed before signing. DESTINY: [...] Oral, B (more content not included)... Normal [facility] Comment on above: Result Comment: Elec tronically Signed By: Sheila POSEY, Tiffany Chavarria\.br\Date and Time Signed: 10/08/23 13:39 EST\.br\Electronically Co-Signed By: George Newell\.br\Date and Time Co-Signed: 09/01/23 16:29 EDT Heart and Vascular Office/Clinic Note Chief Complaint heart cath f/u History of Present Illness Livia Jacobo is a 62-year-old female who presents today for a follow-up evaluation of a recent FL in the circumflex territory. 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 She is accompanied by an adult female. She is doing well. She experiences dyspnea upon exertion and intermittent angina. She rates her pain as a 4 out of 10. She describes the pain as a sharp pain. The pain does not feel similar to her heart pain prior to her FL. The heart pain she had prior to her FL went like a rectangle around and then up and down her arm. Her right coronary artery has a complete blockage and collateralized then rerouted. She has a bad back and she needs to go to [place] on 07/25/2023 for possible surgery. She had [...] Jacobo is a 62-year-old female with recent FL in the circumflex territory. 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 She is still having some angina, but not nearly as bad as it was before her heart attack. We are going to give her some isosorbide and we are trying medical for now. It is amenable to a possible PCI if we are unable to achieve resolution of symptoms with medication. Follow up in 6 weeks in [place]. Portions of this record may have been created with voice recognition artificial intelligence software, specifically [employer], [employer] and or [employer]. Substitutions may have occurred with voice recognition and artificial intelligence software. Documentation services were performed after patient or guardian consented to allow [employer] to record this visit. DESTINY soil fertility specialist and provider reviewed before signing. DESTINY: CloSys Follow-up No qualifying data available Problem List/Past [...] mg= 1 (more content not included)... Normal [facility] Comment on above: Result Comment: Elec tronically [...] Luis MD This Is Your Medications [place] [facility] [place]Lissicap Lotus, 5 years.) albuterol (Albuterol [...] With: Tiffany Jansen MD Where: [facility] [place] 2022 1:45 PM EST With: Tiffany Jansen MD Where: [facility] [place] Tuesday 4:00 PM EST With: Dorie Luis MD Where: [address] \.br\ Medications\.br\ What How Much When [...] for choosing us for your care.\.br\ \.br\ [facility] Auto Diffon 09-29-2023 Basophils/100 WBC (Bld) 0.6 % Normal 0.0-2.0 [facility] Comment on above: Order Comment: Order Added by Discern Expert. Performed By: #### 2 098550, 2083316, 1392237, 501929008, 75914424, 3372338, 68956584, 5966495, 6073826 #### [facility] [address] [place] [address]265 Basophils/Leukocytes Auto (Bld) [Pure # fraction] 0.0 E9/L Normal 0.0-0.2 [facility] Comment on above: Order Comment: Order Added by Discern Expert. Performed By: #### 2 882102, 4489057, 3585653, 227273841, 44566910, 5856142, 24454301, 4592336, 8572873 #### [facility] [address] [place] [address] Eosinophils/100 WBC (Bld) 2.2 % Normal 0.0-8.0 [facility] Comment on above: Order Comment: Order Added by Discern Expert. Performed By: #### 2 169986, 0315096, 9660350, 848657371, 16978080, 9450874, 65131805, 8922506, 6986534 #### [facility] [address] [place] [address] Eosinophils/Leukocyt es Auto (Bld) [Pure # fraction] 0.1 E9/L Normal 0.0-0.5 [facility] Comment on above: Order Comment: Order Added by Discern Expert. Performed By: #### 2 330786, 4338135, 9653428, 676420256, 81849824, 8641944, 16367895, 7593860, 9979494 #### [facility] [address] [place] [address] Lymphocytes/100 WBC (Bld) 37.8 % Normal 14.0-50.0 [facility] Comment on above: Order Comment: Order Added by Discern Expert. Performed By: #### 2 704705, 4791918, 9437404, 873858877, 10095290, 7233330, 44094902, 2005678, 5523867 #### [facility] [address] [place] [address] Lymphocytes/Leukocyt es Auto (Bld) [Pure # fraction] 1.7 E9/L Normal 1.0-4.0 [facility] Comment on above: Order Comment: Order Added by Discern Expert. Performed By: #### 2 124380, 4380582, 2628544, 766758826, 17813566, 4061048, 21187834, 7273007, 6204212 #### [facility] [address] [place] [address] Monocytes/100 WBC (Bld) 7.2 % Normal 4.0-14.0 [facility] Comment on above: Order Comment: Order Added by Discern Expert. Performed By: #### 2 613664, 8086209, 8902865, 781103611, 33603579, 7685713, 90879977, 0169635, 1033955 #### [facility] [address] [place] [address] Monocytes/Leukocytes Auto (Bld) [Pure # fraction] 0.3 E9/L Normal 0.2-1.0 [facility] Comment on above: Order Comment: Order Added by Discern Expert. Performed By: #### 2 260593, 1202862, 6160298, 792451897, 87095540, 2974264, 34892866, 1723165, 6864399 #### [facility] [address] [place] [address] Neutrophils/100 WBC (Bld) 52.2 % Normal 36.0-75.0 [facility] Comment on above: Order Comment: Order Added by Discern Expert. Performed By: #### 2 697913, 9964002, 0334668, 188761210, 25945015, 9270920, 81441070, 7262986, 7298788 #### [facility] [address] [place] [address] Neutrophils/Leukocyt es Auto (Bld) [Pure # fraction] 2.3 E9/L Normal 2.0-7.5 [facility] Comment on above: Order Comment: Order Added by Discern Expert. Performed By: #### 2 238149, 0536072, 6838150, 694229034, 19862776, 7749033, 54324745, 2595276, 5487363 #### [facility] [address] [place] [address] CBC w/ Auto Diffon 3 Erythrocyte distribution width (RBC) [Ratio] 13.4 % Normal 10.9-14.2 [facility] Comment on above: Performed By: #### 2 565406, 4326364, 6356509, 910214777, 32407666, 9817575, 46998718, 8324282, 8245446 #### [facility] [address] [place] [address] Hematocrit (Bld) [Volume fraction] 37.9 % Normal 34.0-46.0 [facility] Comment on above: Performed By: #### 2 179278, 4235462, 6222199, 337107606, 71342393, 3512642, 15414542, 1232804, 3405941 #### [facility] [address] [place] [address] Hemoglobin (Bld) [Mass/Vol] 13.1 g/dL Normal 12.0-16.0 [facility] Comment on above: Performed By: #### 2 455555, 9864080, 8522019, 539550233, 18810283, 6063191, 78033559, 3010434, 7484996 #### [facility] [address] [place] [address]22 MCH (RBC) [Entitic mass] 32.0 pg Normal 27.0-34.0 [facility] Comment on above: Performed By: #### 2 665408, 1961170, 8734407, 782341457, 92311238, 1503848, 28827272, 7738692, 1492913 #### [facility] [address] [place] [address] MCHC (RBC) [Mass/Vol] 34.5 g/dL Normal 31.4-36.0 [facility] Comment on above: Performed By: #### 2 938931, 5872398, 6447886, 802285301, 04151684, 4370322, 26337665, 0404510, 9886638 #### [facility] [address] [place] [address]91 MCV (RBC) [Entitic vol] 92.6 fL Normal 80.0-100.0 [facility] Comment on above: Performed By: #### 2 699106, 7277084, 7469863, 674566441, 09755962, 8618366, 72845618, 4846602, 2434343 #### [facility] [address] [place] [address] Platelet mean volume (Bld) [Entitic vol] 7.5 fL Normal 6.4-10.8 [facility] Comment on above: Performed By: #### 2 195844, 9948779, 1846491, 731608040, 05935075, 6862935, 81202961, 4481737, 0813182 #### [facility] [address] [place] [address] Platelets (Bld) [#/Vol] 291.0 E9/L Normal 150.0-500.0 [facility] Comment on above: Performed By: #### 2 936040, 6521382, 7055007, 332699642, 65895528, 5497606, 01168142, 0043792, 8723170 #### [facility] [address] [place] [address] RBC (Bld) [#/Vol] 4.1 E12/L Low 4.3-5.9 [facility] Comment on above: Performed By: #### 2 744585, 3356426, 2773887, 722681612, 50697739, 6383069, 55214441, 6235726, 9449997 #### [facility] [address] [place] [address] WBC corrected for nucl RBC Auto (Bld) [#/Vol] 4.5 E9/L Normal 4.0-11.0 [facility] Comment on above: Performed By: #### 2 095339, 6380617, 1858704, 008494465, 62984446, 3354875, 58090840, 9307424, 5575405 #### [facility] [address] [place] [address] CHEMISTRYOrdered By: SYSTEM SYSTEM on 09-29-2023 25-hydroxyvitamin D3 [Mass/Vol] 21.1 ng/mL Low 30.0 - 100.0 ng/mL [facility] Comment on above: Interpretive Data: Vitamin D deficiency has been defined as a level of serum 25-OH vitamin D less than 20 ng/mL (1,2) by the [place] of [employer] and an Endocrine Society practice guideline. The Endocrine Society further defined vitamin D insufficiency as a level between 21 and 29 ng/mL (2). 1. IOM ([place] of [employer]). 2010. Dietary reference intakes for [...] Remisol Folate [Mass/Vol] 9.4 ng/mL Normal >=6.7ng/mL [facility] Re misol GFR/1.73 sq M.predicted among non-blacks MDRD (S/P/Bld) [Vol rate/Area] 97 mL/min/1.73 m2 Normal >=59mL/min/1.73 m2 [facility] Chem S Comment on above: Interpretive Data: [...] g/dL Normal 6.0 - 7.8 gm/dL [facility]isol Sodium [Moles/Vol] 139 mmol/L Normal 135 - 145 mmol/L [facility] TSH Qn 1.20 m[IU]/L Normal 0.34 - 5.60 mcIU/mL [facility] Urea nitrogen [Mass/Vol] 13 mg/dL Normal 5 - 21 mg/dL [facility] Urea nitrogen/Creatinine [Mass ratio] 19 mg/mg Normal 10 - 20 [facility] CMPon 09-29-2023 Albumin [Mass/Vol] 3.7 g/dL Normal 3.3-5.0 [facility] Comment on above: Performed By: #### 2 570953, 6797885, 4450240, 366267603, 64091134, 9936407, 67404698, 4980315, 5607256 #### [facility] [address] [place] [address]702 Albumin/Globulin (S) [Mass conc ratio] 0.9 Low 1.1-2.2 [facility] Comment on above: Performed By: #### 2 666717, 3990210, 0798281, 665017624, 38207550, 6114271, 31926056, 4575685, 8657991 #### [facility] [address] [place] [address] ALP [Catalytic activity/Vol] 132 Int._Unit/L High 21-98 [facility] Comment on above: Performed By: #### 2 736964, 8040885, 7318410, 681336230, 69914916, 1041804, 45081386, 5648656, 7517059 #### [facility] [address] [place] [address] ALT No additional P-5'-P [Catalytic activity/Vol] 14 Int._Unit/L Normal 6-46 [facility] Comment on above: Performed By: #### 2 031412, 4547933, 1492852, 576661924, 16528985, 8055247, 78315515, 7272914, 4764739 #### [facility] [address] [place] [address] Anion gap [Moles/Vol] 11 mmol/L Normal 6-16 [facility] Comment on above: Performed By: #### 2 433202, 3113172, 7610680, 658377884, 63819120, 2853138, 51561146, 4834370, 1661289 #### [facility] [address] [place] [address] AST [Catalytic activity/Vol] 19 Int._Unit/L Normal 5-43 [facility] Comment on above: Performed By: #### 2 029009, 8921955, 6232066, 183470160, 10234664, 0258743, 79315037, 6380058, 4657969 #### [facility] [address] [place] [address] Bilirubin [Mass/Vol] 0.2 mg/dL Normal 0.0-1.1 [facility] Comment on above: Performed By: #### 2 682741, 6270441, 6042273, 286663247, 13836835, 7685271, 80441892, 4512871, 9911065 #### [facility] [address] [place] [address] Calcium [Mass/Vol] 9.3 mg/dL Normal 8.9-11.1 [facility] Comment on above: Performed By: #### 2 315260, 2124243, 4120156, 702604680, 06093812, 2988704, 41370655, 6078338, 4836419 #### [facility] [address] [place] [address] Chloride [Moles/Vol] 106 mmol/L Normal 101-111 [facility] Comment on above: Performed By: #### 2 593272, 7477204, 5302017, 196834488, 53235787, 0782114, 87559653, 9956010, 3680953 #### [facility] [address] [place] [address] CO2 [Moles/Vol] 26 mmol/L Normal 21-31 [facility] Comment on above: Performed By: #### 2 569931, 2015274, 6396484, 354322396, 35003545, 2848319, 77083259, 4505366, 1408463 #### [facility] [address] [place] [address] Creatinine [Mass/Vol] 0.7 mg/dL Normal 0.5-1.3 [facility] Comment on above: Performed By: #### 2 279478, 1649661, 1627009, 657368563, 23623893, 9884468, 72288448, 5295221, 8695840 #### [facility] [address] [place] [address] Globulin (S) [Mass/Vol] 4.0 g/dL Normal 1.4-4.0 [facility] Comment on above: Performed By: #### 2 414018, 5958361, 5063861, 496417797, 38181276, 8514474, 52257042, 3823052, 6373110 #### [facility] [address] [place] [address] Glucose [Mass/Vol] 89 mg/dL Normal 55-199 [facility] Comment on above: Result Comment: If t his glucose result represents a fasting glucose, interpretation should refer to the following reference range: 55-99 mg/dL Performed By: #### 2 421973, 0886363, 2925377, 098899411, 97631336, 2355184, 27171464, 0970158, 6464518 #### [facility] [address] [place] [address] Potassium [Moles/Vol] 3.5 mmol/L Normal 3.5-5.3 [facility] Comment on above: Performed By: #### 2 254818, 8548416, 0318646, 669913023, 55994570, 2952151, 49352563, 7997359, 4466085 #### [facility] [address] [place] [address] Protein [Mass/Vol] 7.7 g/dL Normal 6.0-7.8 [facility] Comment on above: Performed By: #### 2 120964, 4250241, 5323730, 819894844, 62083709, 3848895, 79136325, 5595102, 9127192 #### [facility] [address] [place] [address] Sodium [Moles/Vol] 139 mmol/L Normal 135-145 [facility] Comment on above: Performed By: #### 2 794332, 7216552, 2271220, 891828183, 15298825, 2401354, 16507066, 2349192, 9635516 #### [facility] [address] [place] [address] Urea nitrogen [Mass/Vol] 13 mg/dL Normal 5-21 [facility] Comment on above: Performed By: #### 2 233175, 6403044, 0396528, 991887177, 45596674, 3793508, 63460031, 0753914, 1301818 #### [facility] [address] [place] [address] Urea nitrogen/Creatinine [Mass ratio] 19 No Units Normal 10-20 [facility] Comment on above: Performed By: #### 2 788518, 3271151, 8210753, 873466052, 81286441, 7913034, 52598759, 5784975, 4689843 #### [facility] [address] [place] [address] Consent for Flu Vaccineon Consent for Flu Vaccine [id number] 5#1.00TIFF Normal [facility] Family Medicine Office/Clini c Noteon 09-29-2023 Family [...] flu shot today. Ordered: FIRST VACCINE w/o Learning Specialist Admin Charge 81138 9. Fatigue (R53.83: Other fatigue) Encouraged the [...] List/Past Medical (more content not included)... Normal [facility] Comment on above: Result Comment: Elec tronically Signed By: Fidencio POSEY, Dorie Jean Baptiste\.br\Date and Time Signed: 09/29/23 10:01 EST Folateon 09-29-2023 Folate [Mass/Vol] 9.4 ng/mL Normal >=6.7 [facility] Comment on above: Performed By: #### 2 102188, 9971276, 5333815, 527348612, 52737705, 7730688, 92915014, 2189538, 1644384 #### [facility] Laboratory [address] [place] [address] HEMATOLOGYOrdered By: SYSTEM SYSTEM on 09-29-2023 Basophils/100 [...] 09-29-2023 Magnesium [Mass/Vol] 2.1 mg/dL Normal 1.3-2.4 [facility] Comment on above: Performed By: #### 2 787796, 6037554, 6016559, 788027838, 22357973, 5254231, 47309162, 5771573, 4359610 #### [facility] [address] [place] [address] TSH With T4fr Reflexon 09-29 TSH Qn 1.20 m[IU]/L Normal 0.34-5.60 [facility] Comment on above: Performed By: #### 2 918190, 5744683, 0957425, 660237174, 94391650, 7839323, 87701113, 5268694, 2501584 #### [facility] [address] [place] [address] Vit B12on 09-29-2023 Cobalamin (Vitamin B12) [Mass/Vol] 113 pg/mL Normal 50-1500 [facility] Comment on above: Performed By: #### 2 003641, 2020452, 4059732, 584106535, 65735057, 9966781, 82408588, 5839638, 7284421 #### [facility] [address] [place] [address] Vitamin D 25 Hydroxyon 09-29 25-hydroxyvitamin D3 [Mass/Vol] 21.1 ng/mL Low 30.0-100.0 [facility] Comment on above: Result Comment: Vit plata D deficiency has been defined as a level of serum 25-OH vitamin D less than 20 ng/mL (1,2) by the [place] of [employer] and an Endocrine Society practice guideline. The Endocrine Society further defined vitamin D insufficiency as a level between 21 and 29 ng/mL (2). 1. IOM ([place] of Medicine). 2010. Dietary reference intakes for calcium and D. [place]: The National Academies Press. 2. Jaclyn MF, Julia FERNANDEZ, James BLISS, et al. Evaluation, treatment, and prevention of vitamin D deficiency: an Endocrine Society clinical practice guideline. JCEM. 2010; 96 (7):1911-30. Performed By: #### 2 828124, 3102559, 4638524, 821188183, 46052170, 3037542, 94499622, 5281843, 0323833 ####[facility] [address] [place] [address] eGFRon 09-29-2023 GFR/1.73 sq M.predicted among non-blacks MDRD (S/P/Bld) [Vol rate/Area] 97 mL/min/1.73 m2 Normal >=59 [facility] Comment on above: Order Comment: Order added by Discern Expert. Result Comment: [address] [place] kidney disease could be indicated at eGFR's of less than 60 mL/min/1.73m2. Kidney failure is indicated at less than 15 mL/min/1.73m2. Performed By: #### 2 196573, 9480006, 1892722, 502503414, 47130815, 5283164, 90622176, 6404185, 7815637 #### [facility] [address] [place] [address] Coding Summary.on 09-19-2023 Coding Summary. [id number] 286#1.00TIFF Normal [facility] Pre-Visit Planningon 023 Pre-Visit Planning -- From: Alesia Ireland RN To: Dorie Luis MD; Sent: 09/12/2023 11:21:33 EDT Subject: Pre-Visit Planning Due Date/Time: 09/12/2023 11:21:00 EDT Caller Name: LIVIA JACOBO; Caller Number: Norberto , Shanna Il Dr. Luis, *Based on your response below, can you please update the chronic problem list and address during this visit if appropriate?* During a pre-visit planning chart review, I noted the following documentation in the medical record: Problem list- Acute ST elevation myocardial infarction (documented 07/09/2023) 07/09/2023 cardio vsxr-59-jsfz-old female with no prior cardiac history presents after 2 days of stuttering intermittent chest pain followed by worsening few hours ago. Found to have posterior STEMI and got primary PCI. Left-ventricular end-diastolic pressure was a little bit up in the Director Of Research And Development EF was little bit down she got [...] feel free to contact me at extension [phone]. Thank you! Alesia Ireland, SAMIR, RN, CCM, [...] M hx of stemi Thanks Normal [address] [facility] Pre-Visit Planningon 023 Pre-Visit Planning -- From: Alesia Ireland RN To: Dorie Luis MD; Sent: 09/12/2023 11:16:22 EDT Subject: Pre-Visit Planning Due Date/Time: 09/12/2023 11:16:00 EDT Caller Name: LIVIA JACOBO; Caller Number: H , M Il Dr. Luis, *Based on your response below, [...] feel free to contact me at extension [phone]. Thank you! Alesia Ireland, OSIRISN, RN, CCM, CCDS, CCDS-O -- From: Dorie Luis MD To: Alesia Ireland RN; Sent: 09/13/2023 08:35:41 EDT Subject: RE: Pre-Visit Planning Caller Name: LIVIA JACOBO; Caller Number: Norberto , M Ok to add Normal [address] [facility] -- From: Alesia Ireland RN [...] feel free to contact me at extension [phone]. Thank you! SAMIR Felix, RN, CCM, CCDS, CCDS-O -- From: Fidencio POSEY, Dorie Jean Baptiste To: Beka LY, Alesia; Sent: 09/13/2023 08:35:24 EDT Subject: RE: Pre-Visit Planning Caller Name: LIVIA JACOBO; Caller Number: Norberto , M Major depressive disorder, recurrent, mild Please add Normal [address] [facility] Outside Operativeon 09-08-20 23 Outside Operative [id number] 139#1.00TIFF Normal [facility] Basic metabolic 2000 panelon 09-07-2023 Anion gap [Moles/Vol] 13 mmol/L 10 - 20 mmol/L [facility] Calcium [Mass/Vol] 9.6 mg/dL 8.6 - 10.3 mg/dL [facility] Chloride [Moles/Vol] 103 mmol/L 98 - 107 mmol/L [facility] CO2 [Moles/Vol] 24 mmol/L 21 - 32 mmol/L [facility] Creatinine [Mass/Vol] 0.64 mg/dL 0.50 - 1.05 mg/dL [facility] GFR/1.73 sq M.predicted MDRD (S/P/Bld) [Vol rate/Area] - [facility] Comment on above: Calculations of henry mated GFR are performed using the 2020 CKD-EPI Study Refit equation without the race variable for the IDMS-Traceable creatinine methods. https://jasn.asnjournals.org/content//ASN.8339734 988 Glucose [Mass/Vol] 98 mg/dL 74 - 99 mg/dL [facility] Interpretation and review of laboratory results Normal [facility] Potassium [Moles/Vol] 3.9 mmol/L 3.5 - 5.3 mmol/L [facility] Sodium [Moles/Vol] 136 mmol/L 136 - 145 mmol/L [facility] Urea nitrogen [Mass/Vol] 10 mg/dL 6 - 23 mg/dL [facility] Anion gap [Moles/Vol] 13 mmol/L Normal 10-20 [facility] Comment on above: Performed By: #### 2 4321-2 #### GEOVANI Roe ([id number]) [facility] ([facility]) [address] [place] [address] Calcium [Mass/Vol] 9.6 mg/dL Normal 8.6-10.3 [facility] Comment on above: Performed By: #### 2 4321-2 #### GEOVANI Roe ([id number]) [facility] ([facility]) [address] [place] [address] Chloride [Moles/Vol] 103 mmol/L Normal 98-107 [facility] Comment on above: Performed By: #### 2 4321-2 #### GEOVANI Roe ([id number]) [facility] ([facility]) [address] [place] [address] CO2 [Moles/Vol] 24 mmol/L Normal 21-32 [facility] Comment on above: Performed By: #### 2 4321-2 #### GEOVANI Roe ([id number]) [facility]) [address] [place] [address]644 Creatinine [Mass/Vol] 0.64 mg/dL Normal 0.50-1.05 [facility] Comment on above: Performed By: #### 2 4321-2 #### GEOVANI Roe ([id number]) [facility]) [address] [place] [address] GFR/1.73 sq M.predicted MDRD (S/P/Bld) [Vol rate/Area] mL/min/{1.73_m2} Normal >60 [facility] Comment on above: Result Comment: Calc ulations of estimated GFR are performed using the 2020 CKD-EPI Study Refit equation without the race variable for the IDMS-Traceable creatinine methods. https://jasn.asnjournals.org/content//ASN.4154497 988 Performed By: #### 2 4321-2 #### GEOVANI Roe ([id number]) [facility]) [address] [place] [address] 13792 Glucose [Mass/Vol] 98 mg/dL Normal 74-99 [facility] Comment on above: Performed By: #### 2 4321-2 #### GEOVANI Roe ([id number]) [facility]) [address] [place] [address] 56782 Potassium [Moles/Vol] 3.9 mmol/L Normal 3.5-5.3 [facility] Comment on above: Performed By: #### 2 4321-2 #### GEOVANI Roe ([id number]) [facility]) [address] [place] [address]10[address] Sodium [Moles/Vol] 136 mmol/L Normal 136-145 [facility] Comment on above: Performed By: #### 2 4321-2 #### GEOVANI Roe ([id number]) [facility]) [address] [place] [address]96[address] Urea nitrogen [Mass/Vol] 10 mg/dL Normal 6-23 [facility] Comment on above: Performed By: #### 2 4321-2 #### GEOVANI Roe ([id number]) [facility]) [address] [place] [address] CARDIAC CATHETERIZATION - [facility] 09-07-2023 CARDIAC CATHETERIZATION - CORONARY [facility], Director Of Research And Development [address] [place] [address] Cardiovascular Catheterization Report Patient Name: LIVIA JACOBO Performing Physician: Lewis Jansen MD Study Date: 09/07/2023 Verifying Physician: Lewis Jansen MD MRN/PID: [id number] Property Insurance Claims Examiner: Ordering Provider: Lewis JANSEN Date of /Age: [...] a modified Seldinger technique. Subsequently a 6 [place] sheath was placed in the right femoral artery. After infiltration with 2% Lidocaine, a second arterial access was obtained via the left femoral artery with a modified Seldinger technique and a 4 [place] sheath was placed. After completion of the [...] mid Right Coronary Artery. 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 Coronary Interventions: Angiography reveals a 100% stenosis [...] Angioplasty, Right Coronary addl branch major Artery (PCI)-92457. 29486 Tiffany Jansen MD Performing Physician Final Normal [facility] CBC panel Auto (Bld)on 09-07 Erythrocyte distribution width (RBC) [Ratio] 12.3 % 11.5 - 14.5 % [facility] Hematocrit (Bld) [Volume fraction] 42.3 % 36.0 - 46.0 % [facility] Hemoglobin (Bld) [Mass/Vol] 14.4 g/dL 12.0 - 16.0 g/dL [facility] Interpretation and review of laboratory results Normal [facility] MCH (RBC) [Entitic mass] 31.9 pg 26.0 - 34.0 pg [facility] MCHC (RBC) [Mass/Vol] 34.0 g/dL 32.0 - 36.0 g/dL [facility] MCV (RBC) [Entitic vol] 94 fL 80 - 100 fL [facility] Nucleated RBC/100 WBC (Bld) [Ratio] 0.0 % [facility] Platelet mean volume (Bld) [Entitic vol] 9.5 fL 7.5 - 11.5 fL [facility] Platelets (Bld) [#/Vol] 231 10*3/uL [facility] RBC (Bld) [#/Vol] 4.51 10*6/uL [facility] WBC (Bld) [#/Vol] 6.0 10*3/uL [facility] Erythrocyte distribution width (RBC) [Ratio] 12.3 % Normal 11.5-14.5 [facility] Comment on above: Performed By: #### 5 8410-2 #### GEOVANI Roe ([id number]) [facility] ([facility]) [address] [place] [address] 31933 Hematocrit (Bld) [Volume fraction] 42.3 % Normal 36.0-46.0 [facility] Comment on above: Performed By: #### 5 8410-2 #### GEOVANI Roe ([id number]) [facility] ([facility]) [address] [place] [address] 40404 Hemoglobin (Bld) [Mass/Vol] 14.4 g/dL Normal 12.0-16.0 [facility] Comment on above: Performed By: #### 5 8410-2 #### GEOVANI Roe ([id number]) [facility] ([facility]) [address] [place] [address] 72199 MCH (RBC) [Entitic mass] 31.9 pg Normal 26.0-34.0 [facility] Comment on above: Performed By: #### 5 8410-2 #### GEOVANI Roe ([id number]) [facility] ([facility]) [address] [place] [address] 09998 MCHC (RBC) [Mass/Vol] 34.0 g/dL Normal 32.0-36.0 [facility] Comment on above: Performed By: #### 5 8410-2 #### GEOVANI Roe ([id number]) [facility] ([facility]) [address] [place] [address] 46784 MCV (RBC) [Entitic vol] 94 fL Normal 80-100 [facility] Comment on above: Performed By: #### 5 8410-2 #### GEOVANI Roe ([id number]) [facility] ([facility]) [address] [place] [address] 20798 Nucleated RBC/100 WBC (Bld) [Ratio] 0.0 /100 WBCs Normal 0.0-0.0 [facility] Comment on above: Performed By: #### 5 8410-2 #### GEOVANI Roe (10754) [facility] ([facility]) [address] [place] [address] 16444 Platelet mean volume (Bld) [Entitic vol] 9.5 fL Normal 7.5-11.5 [facility] Comment on above: Performed By: #### 5 8410-2 #### GEOVANI Roe ([id number]) [facility] ([facility]) [address] [place] [address] 32362 Platelets (Bld) [#/Vol] 231 x10*3/uL Normal 150-450 [facility] Comment on above: Performed By: #### 5 8410-2 #### GEOVANI Roe ([id number]) [facility] ([facility]) [address] [place] [address] 72889 RBC (Bld) [#/Vol] 4.51 x10*6/uL Normal 4.00-5.20 [facility] Comment on above: Performed By: #### 5 8410-2 #### GEOVANI Roe ([id number]) [facility] ([facility]) [address] [place] [address] 39931 WBC (Bld) [#/Vol] 6.0 x10*3/uL Normal 4.4-11.3 [facility] Comment on above: Performed By: #### 5 8410-2 #### GEOVANI BARNETTSERA Roe ([id number]) [facility] ([facility]) [address] [place] [address] 75482 Cardiac catheterization stud yon 09-07-2023 [facility], Director Of Research And Development [address] [place] [address] Cardiovascular Catheterization Report Patient Name: LIVIA JACOBO Performing Physician: Lewis Jansen MD Study Date: 09/07/2023 Verifying Physician: Lewis Jansen MD MRN/PID: [id number] Property Insurance Claims Examiner: Ordering Provider: Lewis JANSEN Date of /Age: [...] a modified Seldinger technique. Subsequently a 6 [place] sheath was placed in the right femoral artery. After infiltration with 2% Lidocaine, a second arterial access was obtained via the left femoral artery with a modified Seldinger technique and a 4 [place] sheath was placed. After completion of the [...] mid Right Coronary Artery. 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 Coronary Interventions: Angiography reveals a 100% stenosis [...] Angioplasty, Right Coronary addl branch major Artery (PCI)-54410. 55418 Tiffany Jansen MD Performing Physician Final Tiffany Knight MD - 09/07/2023 [facility], Director Of Research And Development [address] [place] [address] Cardiovascular Catheterization Report Patient Name: LIVIA JACOBO Performing Physician: Lewis Jansen MD Study Date: 09/07/2023 Verifying Physician: Lewis Jansen MD MRN/PID: [id number] Property Insurance Claims Examiner: Ordering Provider: Lewis JANSEN Date of /Age: [...] a modified Seldinger technique. Subsequently a 6 [place] sheath was placed in the right femoral artery. After infiltration with 2% Lidocaine, a second arterial access was obtained via the left femoral artery with a modified Seldinger technique and a 4 [place] sheath was placed. After completion of the [...] mid Right Coronary Artery. 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 Coronary Interventions: Angiography reveals a 100% stenosis [...] Angioplasty, Right Coronary addl branch major Artery (PCI)-64672. 23531 Tiffany Jansen MD Performing Physician Final [facility] Work Phone: [facility] Work Phone: ECG 12-LEADon 09-07-2023 ECG 12-LEAD Ventricular Rate 95 Atrial Rate 95 P-R Interval 130 QRS Duration 84 Q-T Interval 360 QTC Calculation(Bazett) 452 P Cherokee 63 R Cherokee 31 T Cherokee 0 QRS Count 16 Q Onset 213 P Onset 148 P Offset 210 T Offset 393 QTC Fredericia 419 Diagnosis Normal sinus rhythm ST & T wave abnormality, consider anterolateral ischemia Abnormal ECG No previous ECGs available Confirmed by Keith Mariscal ([id number]) on 09/09/2023 9:30:06 PM Normal [facility] PT and aPTT panel Coag (PPP) on 09-07-2023 aPTT Coag (PPP) [Time] 27 s [facility] INR Coag (PPP) [Relative time] 1.0 {INR} 0.9 - 1.1 [facility] Interpretation and review of laboratory results Normal [facility] PT Coag (PPP) [Time] 11.4 s [facility] The APTT is no longer used for monitoring Unfractionated Heparin Therapy. For monitoring Heparin Therapy, use the Heparin Assay. [facility] aPTT Coag (PPP) [Time] 27 s Normal 27-38 [facility] Comment on above: Order Comment: The A PTT is no longer used for monitoring Unfractionated Heparin Therapy. For monitoring Heparin Therapy, use the Heparin Assay. Performed By: #### 3 4529-8 #### GEOVANI Roe ([id number]) [facility] ([facility])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 41775674, 0321477, 0607484 #### [facility] [address] [place] [address] MCV (RBC) [Entitic vol] 93.5 fL Normal 80.0-100.0 [facility] Comment on above: Performed By: #### 2 731157, 2876760, 2907725, 350996010, 87627067, 8475534, 48237356, 0113751, 1085312 #### [facility] [address] [place] [address] Platelet mean volume (Bld) [Entitic vol] 8.0 fL Normal 6.4-10.8 [facility] Comment on above: Performed By: #### 2 600676, 5932595, 9791759, 387415883, 28500142, 9676422, 60701238, 8928181, 5965773 #### [facility] [address] [place] [address] Platelets (Bld) [#/Vol] 240.0 E9/L Normal 150.0-500.0 [facility] Comment on above: Performed By: #### 2 068294, 4338674, 9136650, 348648666, 29669822, 6809426, 66613786, 8129632, 9660218 #### [facility] [address] [place] [address] RBC (Bld) [#/Vol] 4.1 E12/L Low 4.3-5.9 [facility] Comment on above: Performed By: #### 2 119196, 3179718, 1079988, 768926978, 85728061, 9632916, 43188846, 8791495, 1991353 #### [facility] [address] [place] [address] WBC corrected for nucl RBC Auto (Bld) [#/Vol] 6.8 E9/L Normal 4.0-11.0 [facility] Comment on above: Performed By: #### 2 694680, 3451459, 4812425, 030143770, 04316112, 6396666, 30136486, 2227277, 9769127 #### [facility] [address] [place] [address] CHEMISTRYOrdered By: SYSTEM SYSTEM on 09-01-2023 Troponin I.cardiac [Mass/Vol] 9.00 pg/mL Low 10.10 - 27.10 pg/mL [facility] Comment on above: Interpretive Data: T he 95% CI (Confidence Interval) PPV (Positive Predictive Value) for myocardial infarction in females is 38 pg/mL, in males 51 pg/mL. The results should be used in conjunction with clinical conditions of myocardial infarction. (Access High Sensitivity Troponin I Instructions For Use, Shivani [place], June 2018) Albumin [Mass/Vol] 3.5 g/dL Normal [...] g/dL Normal 6.0 - 7.8 gm/dL [facility] Sodium [Moles/Vol] 131 mmol/L Low 135 - 145 mmol/L [facility] Troponin I.cardiac [Mass/Vol] 8.20 pg/mL Low 10.10 - 27.10 pg/mL [facility] [facility] Comment on above: Interpretive Data: T he 95% CI (Confidence Interval) PPV (Positive Predictive Value) for myocardial infarction in females is 38 pg/mL, in males 51 pg/mL. The results should be used in conjunction with clinical conditions of myocardial infarction. (Access High Sensitivity Troponin I Instructions For Use, Shivani [place], June 2018) Urea nitrogen [Mass/Vol] 8 mg/dL Normal 5 - 21 mg/dL [facility] Urea nitrogen/Creatinine [Mass ratio] 11 mg/mg Normal 10 - 20 [facility] COAGULATIONOrdered By: Yoli Case on 09-01-2023 aPTT Coag (PPP) [Time] 31.9 s Normal 25.1 - 36.5 second(s) [facility] Comment on above: Interpretive Data: [...] the same coagulation reagent and instrumentation as [facility] Currently there are no coagulation studies available worldwide for children to 14 days, and no normal ranges. Heparin therapeutic range (represented by Anti-Factor Xa activity of 0.2 - 0.4 U/mL) corresponds to PTT of 56.6 - 109.0 sec. INR Coag (PPP) [Relative time] 1.0 {INR} Invalid Interpretation Code [facility] Comment on above: Interpretive Data: I NR results are specifically intended to assess patients stabilized on long-term Anticoagulation therapy suggested INR s Less Intensive Anticoagulation 2.0 3.0 Conventional Range 3.0 4.5 PT Coag (PPP) [Time] 11.5 s Normal 9.4 - 1 2.5 second(s) [facility] Comment on above: Interpretive Data: [...] the same coagulation reagent and instrumentation as [facility] Currently there are no coagulation studies available worldwide for children to 14 days, and no normal ranges. Consent for Treatmenton 08-14 Consent for Treatment [id number] Normal [facility] ED Clinical Summaryon 2022 ED Clinical Summary (Inserted Image. Unable to display[address] [address] ED Clinical Summary Person Information Name: LIVIA JACOBO/Tatiana Age: 62 Years : 1960 Sex: Female Language: Citizen [place] PCP: Dorie Luis MD Marital Status: Visit Id: Visit Reason: Nausea; Chest pain; CHEST PAIN Speciality: Acuity: 2 Enc Type: Observation Med Service: Medical Arrival: 09/01/2023 18:57:13 Discharge: LOS: 000 02:57 Checkin: 09/01/2023 18:57:13 Checkout: 09/01/2023 21:54:30 Dispo Type: Admitted as IP to this [facility] EVENTS: Event Name Event [...] 09/01/2023 20:53:46 09/01/2023 20:53:47 ADDRESS: [place] [id number] PHYS DOC NOTES: MEDICAL INFORMATION: Prescriptions Given: [...] Tablets By Mouth every day. Refills: [place]. [facility] [place]Handicap Placard, 5 years.) Handicap Placard, [...] obstructive pulmonary disease); 4:HTN (hypertension), benign Normal [facility] ED Note-Physicianon 09-01-20 ED Note-Physician Basic Information Time Seen: Sarah Friedman DO 09/01/2023 19:01 Chief Complaint Pt reports she was eating dinner around 1800 when she started having chest pain with associated nausea. FL this year in june, 1 stent placed by sheila. +thinners. 4 ASA and 1 nitro given by EMS [facility] [employer]. History of Present Illness Patient is a 62-year-old female with past medical history of hypertension, hyperlipidemia, COPD, CAD status post stenting presenting to the ED for evaluation of chest pain with associated nausea. Patient had a stent placed earlier this year in June by Dr. Jansen, states she still has some blockages and they were planning to do a staged PCI at [place]. Patient states she was eating dinner and [...] and Complexity of Problems Differential Diagnosis: [] [facility] Data External documents reviewed: [] My [...] Piggyback, q2hr (more content not included)... Normal [facility] Comment on above: Result Comment: Elec tronically Signed By: Sarah Friedman DO\Date and Time Signed: 09/01/23 21:52 EDT ED Patient Education Noteon 09-01-2023 ED Patient Education Note Normal [facility] ED Patient Summaryon 023 ED Patient Summary [address] [address] Patient Discharge Instructions Person Information Name: LIVIA JACOBO Age: 62 Years Arrival Date: 09/01/2023 18:57:13 Discharge Diagnosis: 1:Chest pain; 2:Hypokalemia; 3:COPD (chronic obstructive pulmonary disease); 4:HTN (hypertension), benign Primary Care Physician: Dorie Luis MD Provider Information Primary Provider: Sarah Friedman DO Advanced Health Safety Instructor:None The exam and treatment you received in the Emergency Department were for an urgent problem and are not intended as complete care. It is important that you follow up with a doctor, nurse practitioner, or physician?s instruction assistant principal for ongoing care. If your symptoms become [...] opioids can be used to help relieve yayzpyil-ft-jnyold pain and are often prescribed following a [...] be struggling with addiction, tell your health memory care program resident and ask for guidance or call SAMHSA?S National Helpline at 0-758-861-HELP. v Source: US Department of Health and Human Services/Center for Disease Control & Prevention Gl[place]y (more content not included)... Normal [facility] HEMATOLOGYOrdered By: SYSTEM SYSTEM on 09-01-2023 Basophils/100 [...] 34.1 g/dL Normal 31.4 - 36.0 gm/dL [facility] HemeAutoSS MCV (RBC) [Entitic vol] 93.5 fL Normal 80.0 - 100.0 fL [facility] Platelet mean volume (Bld) [Entitic vol] 8.0 fL Normal 6.4 - 10.8 fL [facility]eAutoSS Platelets (Bld) [#/Vol] 240.0 E9/L Normal 150.0 - 500.0 E9/L [facility] HemeAutoSS RBC (Bld) [#/Vol] 4.1 E12/L Low 4.3 - 5.9 E12/L [facility] HemeAutoSS WBC corrected for nucl RBC Auto (Bld) [#/Vol] 6.8 E9/L Normal 4.0 - 11.0 E9/L [facility] HemeAutoSS Hep Func Panelon 09-01-2023 Bilirubin.indirect [Mass or moles/Vol] UTC Abnormal 0.1-0.9 [facility] Comment on above: Result Comment: Resu lt verified by Discern Rule. Performed result UTC (Unable to Calculate) was sent as an Alpha code due the inability to calculate a valid numeric value. Performed By: #### 2 433009, 6657865, 2276399, 393089862, 85098875, 8762938, 79940631, 3483190, 1274313 #### [facility] [address] [place] [address] Albumin [Mass/Vol] 3.5 g/dL Normal 3.3-5.0 [facility] Comment on above: Performed By: #### 2 733454, 3078704, 8601181, 517247293, 57090530, 9984421, 08543030, 7185359, 3446291 #### [facility] [address] [place] [address] Albumin/Globulin (S) [Mass conc ratio] 1.0 Low 1.1-2.2 [facility] Comment on above: Performed By: #### 2 383689, 5769261, 6906943, 485261958, 96691788, 8490534, 81284079, 9321087, 2133933 #### [facility] [address] [place] [address] ALP [Catalytic activity/Vol] 136 Int._Unit/L High 21-98 [facility] Comment on above: Performed By: #### 2 848816, 5748354, 1348396, 221774569, 78820385, 8019434, 79917105, 3499755, 2128984 #### [facility] [address] [place] [address] ALT No additional P-5'-P [Catalytic activity/Vol] 20 Int._Unit/L Normal 6-46 [facility] Comment on above: Performed By: #### 2 425532, 7129658, 3542213, 570649414, 21225464, 6273865, 91739597, 2357327, 9805977 #### [facility] [address] [place] [address] AST [Catalytic activity/Vol] 24 Int._Unit/L Normal 5-43 [facility] Comment on above: Performed By: #### 2 505048, 3510613, 7360374, 950740992, 68886237, 0481777, 30943725, 6729842, 2055953 #### [facility] [address] [place] [address] Bilirubin [Mass/Vol] 0.1 mg/dL Normal 0.0-1.1 [facility] Comment on above: Performed By: #### 2 760086, 6194885, 0252873, 686245577, 94996500, 9677213, 93409846, 7117682, 5965089 #### [facility] [address] [place] [address] Globulin (S) [Mass/Vol] 3.4 g/dL Normal 1.4-4.0 [facility] Comment on above: Performed By: #### 2 540136, 6251705, 5526489, 099510133, 27746637, 2049495, 63711030, 4291263, 0852829 #### [facility] [address] [place] [address] Protein [Mass/Vol] 6.9 g/dL Normal 6.0-7.8 [facility] Comment on above: Performed By: #### 2 763524, 4160844, 8894743, 357303218, 06913204, 5497267, 65429185, 5441110, 3592511 #### [facility] [address] [place] [address] Bilirubin.direct [Mass/Vol] mg/dL Normal 0.1-0.4 [facility] Comment on above: Performed By: #### 2 375024, 4655570, 0832285, 854766202, 73215742, 7963844, 15138052, 9362971, 9411628 #### [facility] [address] [place] [address] Magnesiumon 09-01-2023 Magnesium [Mass/Vol] 1.8 mg/dL Normal 1.3-2.4 [facility] Comment on above: Performed By: #### 2 892767, 4459633, 4908431, 853340859, 14167246, 0396935, 97487058, 0078864, 1108040 #### [facility] [address] [place] [address] PT & PTTon 09-01-2023 aPTT Coag (PPP) [Time] 31.9 second(s) Normal 25.1-36.5 [facility] Comment on above: Result Comment: Para meter [...] the same coagulation reagent and instrumentation as [facility] Currently there are no coagulation studies available worldwide for children to 14 days, and no normal ranges. Heparin therapeutic range (represented by Anti-Factor Xa activity of 0.2 - 0.4 U/mL) corresponds to PTT of 56.6 - 109.0 sec. Performed By: #### 2 437412, 5360663, 9855566, 393726753, 89387809, 4168320, 93589634, 9987595, 1071064 #### [facility] [address] [place] [address] INR Coag (PPP) [Relative time] 1.0 {INR} Invalid Interpretation Code [facility] Comment on above: Result Comment: INR results are specifically intended to assess patients stabilized on long-term Anticoagulation therapy suggested INR?s ?Less Intensive Anticoagulation? 2.0 ? 3.0 Conventional Range 3.0 ? 4.5 Performed By: #### 2 017726, 7149357, 9461658, 792097299, 28508760, 8837310, 52058428, 7079247, 1619706 #### [facility] [address] [place] [address] PT Coag (PPP) [Time] 11.5 second(s) Normal 9.4-12.5 [facility] Comment on above: Result Comment: 15 d [...] the same coagulation reagent and instrumentation as [facility] Currently there are no coagulation studies available worldwide for children to 14 days, and no normal ranges. Performed By: #### 2 634012, 8621671, 9209695, 685100496, 48789812, 1901284, 64847469, 3405971, 8011800 #### [facility] [address] [place] [address] Pre-Arrival Noteon 3 Pre-Arrival Note Pre-Arrival Summary Name: ANU, Current Date: 09/01/2023 18:58:45 EDT Gender: Female Date of : Age: 62 Pre-Arrival Type: EMS ETA: 09/01/2023 19:16:00 EDT Primary Care Physician: Presenting Problem: CP Pre-Arrival User: Micaela Daugherty Referring Source: Location: PA Completion Date/Time: 09/01/2023 00:00:[address] [facility] Emergency Department Pre-Hospital Report Form ___ Vital Signs: bp 109/42, hr 103, spo2 97% RA Pre-Hospital Report: Treatment in Route: 324mg ASA, (1) nitro Response to Treatment: Misc. Issues: FL in June [facility] Troponin 0 Hr.on 09-01-2023 Troponin I.cardiac [Mass/Vol] 8.20 pg/mL Low 10.10-27.10 [facility] Comment on above: Result Comment: The 95% CI (Confidence Interval) PPV (Positive Predictive Value) for myocardial infarction in females is 38 pg/mL, in males 51 pg/mL. The results should be used in conjunction with clinical conditions of myocardial infarction. (Access High Sensitivity Troponin I Instructions For Use, Shivani [place], June 2018) Performed By: #### 2 637628, 8962796, 1922964, 107534097, 12462255, 5503163, 56290735, 9692975, 0154785 #### [facility] [address] [place] [address] Troponin 3 Hr.on 10-19-2023 Troponin I.cardiac [Mass/Vol] 9.00 pg/mL Low 10.10-27.10 [facility] Comment on above: Result Comment: The 95% CI (Confidence Interval) PPV (Positive Predictive Value) for myocardial infarction in females is 38 pg/mL, in males 51 pg/mL. The results should be used in conjunction with clinical conditions of myocardial infarction. (Access High Sensitivity Troponin I Instructions For Use, [place], June 2018) Performed By: #### 2 539412, 0290423, 5298659, 626717035, 02907646, 9666106, 56908109, 6095341, 4651616 #### [facility] [address] [place] [address] eGFRon 09-01-2023 GFR/1.73 sq M.predicted among non-blacks MDRD (S/P/Bld) [Vol rate/Area] 97 mL/min/1.73 m2 Normal >=59 [facility] Comment on above: Order Comment: Order Added by Discern Expert. Result Comment: [address] [place] kidney disease could be indicated at eGFR's of less than 60 mL/min/1.73m2. Kidney failure is indicated at less than 15 mL/min/1.73m2. Performed By: #### 2 107800, 1728151, 8377289, 407613450, 92699317, 7707559, 37878983, 1284429, 8949174 #### [facility] [address] [place] [address] Auto Diffon 08-08-2023 Basophils/100 WBC (Bld) 1.2 % Normal 0.0-2.0 [facility] Comment on above: Order Comment: Order Added by Discern Expert. Performed By: #### 2 944744, 80656465, 6084919, 55379357, 42449081, 49384203, 2913109 ####[facility] [address] [place] [address] Basophils/Leukocytes Auto (Bld) [Pure # fraction] 0.1 E9/L Normal 0.0-0.2 [facility] Comment on above: Order Comment: Order Added by Discern Expert. Performed By: #### 2 461621, 19839231, 9242708, 11003155, 78705743, 71577290, 9413589 ####[address] [place] [address] Eosinophils/100 WBC (Bld) 3.4 % Normal 0.0-8.0 [facility] Comment on above: Order Comment: Order Added by Discern Expert. Performed By: #### 2 437007, 96370319, 1337192, 19672484, 65831464, 97070016, 8898051 ####[address] [place] [address] Eosinophils/Leukocyt es Auto (Bld) [Pure # fraction] 0.2 E9/L Normal 0.0-0.5 [facility] Comment on above: Order Comment: Order Added by Discern Expert. Performed By: #### 2 515381, 93860063, 0073019, 81190170, 99908428, 28860108, 6639418 ####[address] [place] [address] Lymphocytes/100 WBC (Bld) 30.2 % Normal 14.0-50.0 [facility] Comment on above: Order Comment: Order Added by Discern Expert. Performed By: #### 2 057679, 58784425, 4601191, 37128315, 16101670, 62042070, 6605516 ####[address] [place] [address] Lymphocytes/Leukocyt es Auto (Bld) [Pure # fraction] 1.9 E9/L Normal 1.0-4.0 [facility] Comment on above: Order Comment: Order Added by Discern Expert. Performed By: #### 2 449611, 50746708, 9583859, 18534210, 50599829, 26930153, 9481724 ####[address] [place] [address] Monocytes/100 WBC (Bld) 8.3 % Normal 4.0-14.0 [facility] Comment on above: Order Comment: Order Added by Discern Expert. Performed By: #### 2 901865, 10182700, 0536546, 48131057, 73611629, 98205019, 2703588 ####[facility] [address] [place] [address] Monocytes/Leukocytes Auto (Bld) [Pure # fraction] 0.5 E9/L Normal 0.2-1.0 [facility] Comment on above: Order Comment: Order Added by Discern Expert. Performed By: #### 2 828961, 40272451, 2421778, 88431224, 42086862, 49396522, 0376178 ####[facility] [address] [place] [address] Neutrophils/100 WBC (Bld) 56.9 % Normal 36.0-75.0 [facility] Comment on above: Order Comment: Order Added by Discern Expert. Performed By: #### 2 140310, 93607763, 1763720, 33257713, 36842911, 59517323, 1416457 ####[facility] [address] [place] [address] Neutrophils/Leukocyt es Auto (Bld) [Pure # fraction] 3.5 E9/L Normal 2.0-7.5 [facility] Comment on above: Order Comment: Order Added by Discern Expert. Performed By: #### 2 973868, 88939714, 2910636, 57250690, 73087206, 45038466, 7132071 ####[facility] [address] [place] [address] BMPon 08-08-2023 Creatinine [Mass/Vol] 0.6 mg/dL Normal 0.5-1.3 [facility] Comment on above: Performed By: #### 2 391448, 90344943, 1219893, 00033654, 90433829, 99070522, 3276233 ####[facility] [address] [place] [address] Urea nitrogen [Mass/Vol] 5 mg/dL Normal 5-21 [facility] Comment on above: Performed By: #### 2 435412, 46228258, 9073136, 44971344, 73652419, 15463136, 4691426 ####[facility] [address] [place] [address] Urea nitrogen/Creatinine [Mass ratio] 8 No Units Low 10-20 [facility] Comment on above: Performed By: #### 2 511687, 88336313, 3582146, 03930293, 92885970, 78623377, 6625305 ####[facility] [address] [place] [address] Anion gap [Moles/Vol] 13 mmol/L Normal 6-16 [facility] Comment on above: Performed By: #### 2 795134, 35777025, 4170598, 43474480, 99471388, 42545591, 1524068 ####[facility] [address] [place] [address] Calcium [Mass/Vol] 9.6 mg/dL Normal 8.9-11.1 [facility] Comment on above: Performed By: #### 2 187287, 32076409, 0940202, 68036493, 03397124, 79866004, 9017416 ####[facility] [address] [place] [address] Chloride [Moles/Vol] 107 mmol/L Normal 101-111 [facility] Comment on above: Performed By: #### 2 799062, 48819184, 0372890, 45595493, 74694181, 04388699, 6854486 ####[facility] [address] [place] [address] CO2 [Moles/Vol] 23 mmol/L Normal 21-31 [facility] Comment on above: Performed By: #### 2 572551, 16469450, 6741687, 36787378, 35442447, 61812167, 4168359 ####[facility] [address] [place] [address] Glucose [Mass/Vol] 100 mg/dL Normal 55-199 [facility] Comment on above: Result Comment: If t his glucose result represents a fasting glucose, interpretation should refer to the following reference range: 55-99 mg/dL Performed By: #### 2 571712, 27788606, 6551531, 96012059, 64100422, 17771929, 6547756 ####[facility] [address] [place] [address] Potassium [Moles/Vol] 3.1 mmol/L Low 3.5-5.3 [facility] Comment on above: Performed By: #### 2 685387, 09733685, 2892105, 24156948, 11904539, 54836530, 5825291 ####[facility] [address] [place] [address] Sodium [Moles/Vol] 140 mmol/L Normal 135-145 [facility] Comment on above: Performed By: #### 2 443462, 90153475, 4771863, 19546377, 91820185, 30407488, 7881961 ####[facility] [address] [place] [address] BNPon 08-08-2023 Int Ctr BNP Pass Normal [facility] Comment on above: Performed By: #### 2 112660, 29832264, 4791869, 95650093, 93889325, 08342053, 2409245 ####[facility] [address] [place] [address] Natriuretic peptide B (Bld) [Mass/Vol] 210 pg/mL High 5-80 [facility] Comment on above: Performed By: #### 2 580692, 11589493, 5820488, 62643992, 72710941, 09621458, 5803585 ####[facility] [address] [place] [address] CBC w/ Auto Diffon Erythrocyte distribution width (RBC) [Ratio] 12.4 % Normal 10.9-14.2 [facility] Comment on above: Performed By: #### 2 848421, 20711568, 2431045, 85959968, 67133952, 41513902, 0531820 ####[address] [place] [address] Hematocrit (Bld) [Volume fraction] 41.3 % Normal 34.0-46.0 [facility] Comment on above: Performed By: #### 2 370856, 02477425, 7976762, 32823204, 89214451, 93146048, 8381080 ####[facility] [address] [place] [address] Hemoglobin (Bld) [Mass/Vol] 14.6 g/dL Normal 12.0-16.0 [facility] Comment on above: Performed By: #### 2 719498, 27029314, 0947806, 37667366, 80578007, 56504139, 3625144 ####[address] [address] MCH (RBC) [Entitic mass] 32.4 pg Normal 27.0-34.0 [facility] Comment on above: Performed By: #### 2 623063, 26541073, 9443520, 48713633, 45761740, 98489406, 4485031 ####[address] [place] [address] MCHC (RBC) [Mass/Vol] 35.4 g/dL Normal 31.4-36.0 [facility] Comment on above: Performed By: #### 2 400142, 59054158, 9274282, 09389309, 25950029, 82961123, 1774395 ####[address] [place] [address] MCV (RBC) [Entitic vol] 91.4 fL Normal 80.0-100.0 [facility] Comment on above: Performed By: #### 2 888064, 58228106, 0867092, 68773306, 21221616, 55119145, 2653914 ####[facility] [address] [place] [address] Platelet mean volume (Bld) [Entitic vol] 8.3 fL Normal 6.4-10.8 [facility] Comment on above: Performed By: #### 2 076779, 00925868, 6408874, 28585675, 17105554, 56328745, 5001103 ####[facility] [address] [place] [address] Platelets (Bld) [#/Vol] 258.0 E9/L Normal 150.0-500.0 [facility] Comment on above: Performed By: #### 2 070436, 55282184, 9968659, 83302451, 30186613, 08622033, 6080262 ####[facility] [address] [place] [address] RBC (Bld) [#/Vol] 4.5 E12/L Normal 4.3-5.9 [facility] Comment on above: Performed By: #### 2 266013, 54605812, 1442865, 22269855, 79070926, 44697878, 0388736 ####[address] [place] [address] WBC corrected for nucl RBC Auto (Bld) [#/Vol] 6.2 E9/L Normal 4.0-11.0 [facility] Comment on above: Performed By: #### 2 605780, 73326557, 9488980, 71540795, 29928828, 06561780, 7543154 ####[facility] [address] [place] [address] CHEMISTRYOrdered By: SYSTEM SYSTEM on 08-08-2023 Anion gap [Moles/Vol] 13 mmol/L Normal 6 - 16 mEq/L [facility] Calcium [Mass/Vol] 9.6 mg/dL Normal 8.9 - 11.1 mg/dL [facility] Chloride [Moles/Vol] 107 mmol/L Normal 101 - 111 mmol/ L [facility] CO2 [Moles/Vol] 23 mmol/L Normal 21 - 31 mmol/L [facility] Creatinine [Mass/Vol] 0.6 mg/dL Normal 0.5 - 1.3 mg/dL [facility] Remisol GFR/1.73 sq M.predicted among non-blacks MDRD (S/P/Bld) [Vol rate/Area] 101 mL/min/1.73 m2 Normal >=59mL/min/1.73 m2 [facility] Chem S Glucose [Mass/Vol] 100 mg/dL Normal 55 - 199 mg/dL [facility] Remisol Potassium [Moles/Vol] 3.1 mmol/L Low 3.5 - 5.3 mmol/L [facility]isol Sodium [Moles/Vol] 140 mmol/L Normal 135 - 145 mmol/L [facility] Remisol Troponin I.cardiac [Mass/Vol] 9.80 pg/mL Low 10.10 - 27.10 pg/mL [facility] Urea nitrogen [Mass/Vol] 5 mg/dL Normal 5 - 21 mg/dL [facility] Urea nitrogen/Creatinine [Mass ratio] 8 mg/mg Low 10 - 20 [facility] [facility] CHEMISTRYOrdered By: Sahra Kelley on 08-08-2023 Natriuretic peptide B (Bld) [Mass/Vol] 210 pg/mL High 5 - 80 pg/mL [facility] HemeManSS COAGULATIONOrdered By: Yoli Scruggs on 08-08-2023 aPTT Coag (PPP) [Time] 35.6 s Normal 25.1 - 36.5 second(s) [facility] Auto Coag INR Coag (PPP) [Relative time] 1.0 {INR} Invalid Interpretation Code [facility] Auto Coag PT Coag (PPP) [Time] 11.7 s Normal 9.4 - 1 2.5 second(s) [facility] Auto Coag Discharge Instructionson Discharge Instructions [id number] 413#1.00CD:127 Normal [facility] ED Clinical Summaryon 2022 ED Clinical Summary [address] [address] ED Clinical Summary Person Information Name: LIVIA JACOBO/[facility] Age: 62 Years : 1960 Sex: Female Language: Citizen Of [place] PCP: Dorie Luis MD Marital Status: Visit [...] 08/08/2023 16:19:29 08/08/2023 16:19:29 08/08/2023 16:19:29 ADDRESS: [address] [place], [place] [address] [phone] PHYS DOC NOTES: MEDICAL INFORMATION: Prescriptions Given: [...] Tablets By Mouth every day. Refills: 1. [facility] [place] (Handicap Placrock, 5 years.) Handicap Placard, [...] Instructions: Follow up: With: Address: When: [employer] In 3 days 08/11/2023 With: Address: When: Dorie [address] 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 [address] [facility] (2) Additional Instructions: Problem List/Past Medical History [...] 5 mg (more content not included)... Normal [facility] Comment on above: Result Comment: Elec tronically Signed By: Lawrence Elise DO\.br\Date and Time Signed: 08/08/23 16:05 EDT ED Patient Education Noteon 08-08-2023 ED Patient Education Note Normal [facility] ED Patient Summaryon 023 ED Patient Summary [place] [id number] Patient Discharge Instructions Person Information Name: LIVIA JACOBO Age: 62 Years Arrival Date: 08/08/2023 14:26:38 Discharge Diagnosis: Dyspnea; Nausea Primary Care Physician: Dorie Luis MD Provider Information Primary Provider: Lawrence Elise DO Advanced Health Safety Instructor:None The exam and treatment you received in the Emergency Department were for an urgent problem and are not intended as complete care. It is important that you follow up with a doctor, nurse practitioner, or physician?s instruction assistant principal for ongoing care. If your symptoms become worse or you do not improve as expected and you are unable to reach your usual health care provider, you should return to the Emergency Department. We are available 24 hours a day. LIVIA JACOBO has been given the following list of patient education materials, prescriptions and follow-up instructions: Follow-up Instructions: With: Address: When: [employer] In 3 days 08/11/2023 With: Address: When: Dorie Luis [address] [place] [address] Business (2) In 3 days In the event that this physician does not participate in your insurance network, please consult with your insurance company to find a nearby participating provider. Patient Education Materials: A MESSAGE TO ALL PATIENTS REGARDING OPIOIDS PRESCRIPTION OPIOIDS: WHAT YOU NEED TO KNOW Prescription opioids can be used to help relieve nuywrldg-mi-zrqkim pain and are often prescribed following a [...] be struggling with addiction, tell your health memory care program resident and ask for guidance or call [facility] National Helpline at 3-924-958-NSGX. v Source: Depart (more content not included)... Normal [facility] HEMATOLOGYOrdered By: SYSTEM SYSTEM on 08-08-2023 Basophils/100 [...] 6.2 E9/L Normal 4.0 - 11.0 E9/L [facility] HemeAutoSS Monitor Recordon 08-08-2023 Monitor Record [id number] 680#1.00CD:127 Normal [facility] PT & PTTon 08-08-2023 aPTT Coag (PPP) [Time] 35.6 second(s) Normal 25.1-36.5 [facility] Comment on above: Result Comment: Para meter [...] the same coagulation reagent and instrumentation as [facility]. Currently there are no coagulation studies available worldwide for children to 14 days, and no normal ranges. Heparin therapeutic range (represented by Anti-Factor Xa activity of 0.2 - 0.4 U/mL) corresponds to PTT of 56.6 - 109.0 sec. Performed By: #### 2 313085, 25515752, 3555753, 26672619, 72997503, 18131740, 1846118 ####[facility] [address] [place] [address] INR Coag (PPP) [Relative time] 1.0 {INR} Invalid Interpretation Code [facility] Comment on above: Result Comment: INR results are specifically intended to assess patients stabilized on long-term Anticoagulation therapy suggested INR?s ?Less Intensive Anticoagulation? 2.0 ? 3.0 Conventional Range 3.0 ? 4.5 Performed By: #### 2 443066, 51338740, 6494344, 03864394, 51216281, 78352813, 9969918 ####[facility] [address] [place] [address] PT Coag (PPP) [Time] 11.7 second(s) Normal 9.4-12.5 [facility] Comment on above: Result Comment: 15 d [...] the same coagulation reagent and instrumentation as [facility]. Currently there are no coagulation studies available worldwide for children to 14 days, and no normal ranges. Performed By: #### 2 083308, 06739205, 5921943, 40694780, 81321945, 13046439, 8784025 ####[facility] [address] [place] [address] Pre-Arrival Noteon Pre-Arrival Note Pre-Arrival Summary Name: ANU lares Current Date: 08/08/2023 14:30:03 EDT Gender: Female Date of : Age: 62 Pre-Arrival Type: EMS ETA: 08/08/2023 14:46:00 EDT Primary Care Physician: Presenting Problem: SOB Pre-Arrival User: Sachin LY, Benjamin Guillen Referring Source: Location: [place] Completion Date/Time: 08/08/2023 14:17:[address] [facility] Emergency Department Pre-Hospital Report Form ___ Vital Signs: Pre-Hospital Report: Treatment in Route: Response to Treatment: Misc. Issues: Normal [facility] Troponin 0 Hr.on 08-08-2023 Troponin I.cardiac [Mass/Vol] 9.80 pg/mL Low 10.10-27.10 [facility] Comment on above: Result Comment: The 95% CI (Confidence Interval) PPV (Positive Predictive Value) for myocardial infarction in females is 38 pg/mL, in males 51 pg/mL. The results should be used in conjunction with clinical conditions of myocardial infarction. (Access High Sensitivity Troponin I Instructions For Use, Shivani Margo, June 2018) Performed By: #### 2 082021, [id number], 3682116, 70963233, 18385947, 35633227, 4895215 ####[facility] [address] [place] [address] XR Chest Single Viewon 08-08 XR Chest [...] mGy = na DAP = na Normal [facility] eGFRon 08-08-2023 GFR/1.73 sq M.predicted among non-blacks MDRD (S/P/Bld) [Vol rate/Area] 101 mL/min/1.73 m2 Normal >=59 [facility] Comment on above: Order Comment: Order added by Discern Expert. Result Comment: [address] [place] kidney disease could be indicated at eGFR's of less than 60 mL/min/1.73m2. Kidney failure is indicated at less than 15 mL/min/1.73m2. Performed By: #### 2 527669, 15894656, 2933554, 76369093, 57193333, 58329180, 7244711 ####[facility] [address] [place] [address] Cardiovascular Reporton 07-15 Cardiovascular Report [id number] 254#3.00CD:127 Normal [facility] Physician Orderon 07-22-2023 Physician Order [id number] 215#1.00CD:127 Normal [facility] Ambulatory Visit Summaryon 0 07-21-2023 Ambulatory Visit Summary LIVIA JACOBO :1960 Visit Date:07/21/2023 Ambulatory Visit Instructions Your Care Team Attending Physician - Sheila POSEY, Tiffany Chavarria Primary Care Physician - Dorie Luis MD Referring Physician - Dorie Luis MD This Is Your Medications List [facility] [place] (Handdixie Gautam, 5 years.) albuterol (Albuterol [...] PM EDT With: Dorie Luis MD Where: [facility] Normal [address] [place] [address]- \.br\ Medications\.br\ What How Much When Why [...] legs syndrome)\.br\ Walker as ambulation aid\.br\ \.br\ [facility] Consent for Treatmenton Consent for Treatment [id number] CC#1.00CD:127 Normal [facility] Physician Referralon 023 Physician Referral [id number] 3#1.00CD:127 Normal [facility] Ambulatory Visit Summaryon 0 07-13-2023 Ambulatory Visit Summary LIVIA JACOBO :1960 Visit Date:07/13/2023 Ambulatory Visit Instructions Your Diagnosis Hospital discharge follow-up Acute ST elevation myocardial infarction (STEMI), unspecified artery Current smoker BMI 32.0-32.9,adult Class 1 obesity due to excess calories in adult Your Care Team Attending Physician - Dorie Luis MD Primary Care Physician - Dorie Luis MD This Is Your Medications List [facility] [place] (Rosangela Gautam, 5 years.) albuterol (Albuterol [...] Sheila POSEY, Tiffany Chavarria Where: [facility] 2022 2:20 PM EDT With: Dorie Luis MD Where: [place] [address]- \.br\ Medications\.br\ What How Much When Why [...] as ambulation aid\.br\ \.br\ Juan Pablo Cole [facility] Medicine Office/Clini c Noteon 07-13-2023 [facility] Medicine Office/Clinic Note HPI Staff Patient presents for hospital follow up Juan Pablo Cole Admitted: 07/09/23 Discharged: 07/10/23 Dx [place], had stent placed Any specialists: none Any [...] reviewed Ordered: Cardiac Rehab - Ambulatory Referral [facility] Internal Ambulatory Referral 2. Acute ST elevation myocardial infarction (STEMI), unspecified artery (I21.3: ST elevation (STEMI) myocardial infarction of unspecified site) - Stenting place - Cardiology referral placed - Cardiac Rehab placed Ordered: Body Mass Index (BMI) documented 3008F Cardiac Rehab - Ambulatory Referral Current tobacco smoker 1034F Depression Screening Positive 3354F [facility] Internal Ambulatory Referral Most recent diastolic blood [...] tobacco smoker 1034F Depression Screening Positive 3354F [facility] Internal Ambulatory Referral Most recent diastolic blood [...] tobacco smoker 1034F Depression Screening Positive 3354F [facility] Internal Ambulatory Referral Most recent diastolic blood [...] tobacco smoker 1034F Depression Screening Positive 3354F [facility] Internal Ambulatory Referral Most recent diastolic blood [...] BID traZO (more content not included)... Normal [facility] Comment on above: Result Comment: Elec tronically Signed By: Fidencio POSEY, Dorie Polk.br\Date and Time Signed: 07/13/23 16:23 EDT Discharge Instructionson Discharge Instructions [id number] 03#1.00CD:127 Normal [facility] Cardiovascular Reporton 06-15 Cardiovascular Report [id number] 19#1.00CD:127 Normal [facility] Consent for Procedure/Surger yon 07-11-2023 Consent for Procedure/Surgery [id number] 79#1.00CD:127 Normal [facility] Auto Diffon 07-10-2023 Basophils/100 WBC (Bld) 0.2 % Normal 0.0-2.0 [facility] Comment on above: Order Comment: Order Added by Discern Expert. Performed By: #### 2 273489, 4686776, 0971742, 015321847, 94183084, 9060288, 16739945, 9641953, 4693847 #### [facility] [address] [place] [address] Basophils/Leukocytes Auto (Bld) [Pure # fraction] 0.0 E9/L Normal 0.0-0.2 [facility] Comment on above: Order Comment: Order Added by Discern Expert. Performed By: #### 2 474115, 2927469, 6016006, 809212518, 84779554, 9896359, 42665970, 8167521, 0452181 #### [facility] [address] [place] [address] Eosinophils/100 WBC (Bld) 2.9 % Normal 0.0-8.0 [facility] Comment on above: Order Comment: Order Added by Discern Expert. Performed By: #### 2 526997, 5924636, 9043306, 920860462, 08742920, 3256803, 10211555, 0059176, 4826796 #### [facility] [address] [place] [address] Eosinophils/Leukocyt es Auto (Bld) [Pure # fraction] 0.1 E9/L Normal 0.0-0.5 [facility] Comment on above: Order Comment: Order Added by Discern Expert. Performed By: #### 2 543975, 2062557, 4033713, 420692095, 68143198, 5477408, 96379879, 5583495, 8167561 #### [facility] [address] [place] [address] Lymphocytes/100 WBC (Bld) 34.5 % Normal 14.0-50.0 [facility] Comment on above: Order Comment: Order Added by Discern Expert. Performed By: #### 2 108741, 2963696, 6951207, 283040704, 69782819, 0394056, 27572607, 2877933, 7273123 #### [facility] [address] [place] [address] Lymphocytes/Leukocyt es Auto (Bld) [Pure # fraction] 1.4 E9/L Normal 1.0-4.0 [facility] Comment on above: Order Comment: Order Added by Discern Expert. Performed By: #### 2 044182, 7878236, 8810691, 677654592, 53490029, 9309681, 48563518, 2582865, 8842154 #### [facility] [address] [place] [address] Monocytes/100 WBC (Bld) 11.2 % Normal 4.0-14.0 [facility] Comment on above: Order Comment: Order Added by Discern Expert. Performed By: #### 2 360897, 9351914, 5614938, 185668505, 38668029, 6728406, 88542128, 0086193, 1448939 #### [facility] [address] [place] [address] Monocytes/Leukocytes Auto (Bld) [Pure # fraction] 0.5 E9/L Normal 0.2-1.0 [facility] Comment on above: Order Comment: Order Added by Lupe Expert. Performed By: #### 2 242558, 5466625, 5636341, 734033777, 55402166, 1037414, 05598963, 1438077, 8972594 #### [facility] [address] [place] [address] Neutrophils/100 WBC (Bld) 51.2 % Normal 36.0-75.0 [facility] Comment on above: Order Comment: Order Added by Lupe Expert. Performed By: #### 2 959314, 1920423, 3819669, 602175761, 37320786, 4504520, 69018072, 8771937, 8155536 #### [facility] [address] [place] [address] Neutrophils/Leukocyt es Auto (Bld) [Pure # fraction] 2.1 E9/L Normal 2.0-7.5 [facility] Comment on above: Order Comment: Order Added by Lupe Expert. Performed By: #### 2 853009, 8818224, 4142231, 763705590, 46747564, 4233070, 60005250, 9506827, 7281073 #### [facility] [address] [place] [address] BMPon 07-10-2023 Anion gap [Moles/Vol] 7 mmol/L Normal 6-16 [facility] Comment on above: Performed By: #### 2 080973, 3509986, 1792811, 645719600, 47154777, 4644566, 45588369, 1692659, 7641979 #### [facility] [address] [place] [address] Calcium [Mass/Vol] 8.7 mg/dL Low 8.9-11.1 [facility] Comment on above: Performed By: #### 2 846965, 8340138, 7995510, 810942896, 79859404, 0043286, 32732100, 4604835, 2074228 #### [facility] [address] [place] [address] Chloride [Moles/Vol] 113 mmol/L High 101-111 [facility] Comment on above: Performed By: #### 2 558131, 0186371, 3551622, 532838957, 68229640, 8805790, 60538059, 5202786, 3153791 #### [facility] [address] [place] [address] CO2 [Moles/Vol] 27 mmol/L Normal 21-31 [facility] Comment on above: Performed By: #### 2 098245, 7600503, 1664422, 567995430, 92186756, 1784717, 12385907, 7851298, 9521946 #### [facility] [address] [place] [address] Creatinine [Mass/Vol] 0.6 mg/dL Normal 0.5-1.3 [facility] Comment on above: Performed By: #### 2 781476, 4743653, 2602013, 448971493, 62198904, 6394490, 11539550, 5268408, 8362652 #### [facility] [address] [place] [address] Glucose [Mass/Vol] 114 mg/dL Normal 55-199 [facility] Comment on above: Result Comment: If t his glucose result represents a fasting glucose, interpretation should refer to the following reference range: 55-99 mg/dL Performed By: #### 2 014998, 8030696, 2141244, 127021006, 62582181, 7095082, 24250199, 5406298, 2274496 #### [facility] [address] [place] [address] Potassium [Moles/Vol] 3.8 mmol/L Normal 3.5-5.3 [facility] Comment on above: Performed By: #### 2 020087, 4755072, 0265360, 212763596, 81166925, 5981869, 53009132, 7373358, 6285739 #### [facility] [address] [place] [address] Sodium [Moles/Vol] 143 mmol/L Normal 135-145 [facility] Comment on above: Performed By: #### 2 282039, 8394961, 7243990, 480974677, 95233335, 4028793, 97226601, 0344170, 7344891 #### [facility] [address] [place] [address] Urea nitrogen [Mass/Vol] 6 mg/dL Normal 5-21 [facility] Comment on above: Performed By: #### 2 373344, 1338288, 2868035, 368475196, 37619040, 4812062, 18197613, 6967625, 9640302 #### [facility] [address] [place] [address] Urea nitrogen/Creatinine [Mass ratio] 10 No Units Normal 10-20 [facility] Comment on above: Performed By: #### 2 311111, 7587109, 0224655, 398224707, 27340067, 6734879, 79637355, 1957072, 3298656 #### [facility] [address] [place] [address] CBC w/ Auto Diffon 08-27-202 3 Erythrocyte distribution width (RBC) [Ratio] 12.8 % Normal 10.9-14.2 [facility] Comment on above: Performed By: #### 2 191684, 9170482, 2392354, 352282741, 29435491, 7138159, 55081971, 7174520, 7207577 #### [facility] [address] [place] [address] Hematocrit (Bld) [Volume fraction] 40.0 % Normal 34.0-46.0 [facility] Comment on above: Performed By: #### 2 027940, 7316621, 9696139, 511280547, 09151955, 5671710, 11961602, 0461510, 1677480 #### [facility] [address] [place] [address] Hemoglobin (Bld) [Mass/Vol] 13.8 g/dL Normal 12.0-16.0 [facility] Comment on above: Performed By: #### 2 813824, 2802835, 9309337, 127890703, 74323698, 9673320, 22632994, 2941876, 1347060 #### [facility] [address] [place] [address]78 MCH (RBC) [Entitic mass] 32.2 pg Normal 27.0-34.0 [facility] Comment on above: Performed By: #### 2 971885, 9606008, 6411250, 306059133, 15897696, 8310122, 59169743, 9234086, 4401729 #### [facility] [address] [place] [address] MCHC (RBC) [Mass/Vol] 34.4 g/dL Normal 31.4-36.0 [facility] Comment on above: Performed By: #### 2 591110, 5001642, 1632086, 408526846, 23327483, 3195697, 21264299, 4887920, 8279917 #### [facility] [address] [place] [address] MCV (RBC) [Entitic vol] 93.6 fL Normal 80.0-100.0 [facility] Comment on above: Performed By: #### 2 100027, 5779321, 9514256, 036522160, 58030124, 6801451, 99363960, 3625939, 5113726 #### [facility] [address] [place] [address] Platelet mean volume (Bld) [Entitic vol] 7.9 fL Normal 6.4-10.8 [facility] Comment on above: Performed By: #### 2 539002, 7890882, 4806302, 318270769, 54092768, 4050600, 11934760, 5845857, 9209202 #### [facility] [address] [place] [address]04 Platelets (Bld) [#/Vol] 250.0 E9/L Normal 150.0-500.0 [facility] Comment on above: Performed By: #### 2 783374, 3686054, 7904163, 185767753, 43718951, 8306696, 33504485, 7608509, 0741232 #### [facility] [address] [place] [address] RBC (Bld) [#/Vol] 4.3 E12/L Normal 4.3-5.9 [facility] Comment on above: Performed By: #### 2 634065, 8473753, 3317747, 019935380, 18514624, 7039894, 34925159, 9971424, 6796707 #### [facility] [address] [place] [address] WBC corrected for nucl RBC Auto (Bld) [#/Vol] 4.2 E9/L Normal 4.0-11.0 [facility] Comment on above: Performed By: #### 2 606960, 6613825, 0619994, 577896088, 93773036, 3270395, 03580757, 1911691, 0744320 #### [facility] [address] [place] [address] CHEMISTRYOrdered By: SYSTEM SYSTEM on 07-10-2023 Anion [...] rate/Area] 101 mL/min/1.73 m2 Normal >=59mL/min/1.73 m2 [facility] Chem S Glucose [Mass/Vol] 114 mg/dL Normal [...] was a little bit up in the Director Of Research And Development EF was little bit down she got [...] Recorded pneumococcal 13-valent vaccine 07/15/2014 Recorded Normal [facility] Comment on above: Result Comment: Elec tronically [...] care physician. This Is Your Medications List [facility] [place] (Rosangela Gautam, 5 years.) albuterol (Albuterol [...] Pending Diagnostic Test Results None Pharmacy Information [facility] Previously Scheduled Follow-Up Appointments 2022 2:20 PM EDT With: Fidencio POSEY, Dorie Jean Baptiste Where: [facility] Normal [address] [place] [address]- \.br\ New Follow Up Appointments after Discharge\.br\ Follow Up with Dorie Luis When: In 0 days\.br\ Where:\.br\ [address]\.[place]\ [place] [address]-\.br\ [facility] (2)\.br\ Medications\.br\ What How Much When Why Instructions Next Dose\.br\ New aspirin (aspirin 81 mg Oral EC Tab) 1 Tablets By Mouth Every day 07/11/23\.br\ New atorvastatin (atorvastatin 40 mg Tab) 2 Tablets By Mouth At bedtime Pickup at [facility] 07/10/23 pm\.br\ New carvedilol (Coreg 3.125 mg Tab) 1 Tablets By Mouth 2 times a day Refills: 1 Pickup at [facility] 07/10/23 pm\.br\ New nitroglycerin (nitroglycerin 0.4 mg sublingual Tab) 1 Tablets Sublingual Every 5 minutes as needed for Chest pain Pickup at [facility] as needed\.br\ New ticagrelor (ticagrelor 90 mg oral tablet) 1 Tablets By Mouth [address] a [address] Acute [address] elevation myocardial infarction (STEMI) MAINTENACE DOSE Pickup at [facility] 07/10/23 pm\.br\ Unchanged albuterol (Albuterol (Eqv-ProAir [...] Pharmacy Information\.br\ [facility]: [address], [place] [id number] [phone]\.br\ Test Results\.br\ CBC \.br\ BMP \.br\ WBC: [...] is also called a myocardial infarction, or FL. If you think you are having a [...] instructions at home:\.br\ Medicines\.br\ ? \.br\ Take ctli-nsy-ohamxen and prescription medicines only as told by your doctor.\.br\ ? \.br\ [facility] Lipid Panelon 07-10-2023 Cholesterol [Mass/Vol] 139 mg/dL Normal 120-200 [facility] [facility] Comment on above: Performed By: #### 2 631253, 9456462, 2373492, 971215745, 34863216, 9866718, 16287296, 8820836, 6275218 #### [facility] [address] [place] [address] Cholesterol in HDL [Mass/Vol] 33 mg/dL Invalid Interpretation Code [facility] Comment on above: Result Comment: HDL > or equal to 60 mg/dL: Low cardiovascular risk HDL < 40 mg/dL : High cardiovascular risk Performed By: #### 2 512204, 6694047, 1786677, 515389613, 93912867, 1916265, 74673493, 9646317, 6617675 #### [facility] [address] [place] [address] Cholesterol in LDL [Mass/Vol] 84 mg/dL Normal <=129 [facility] Comment on above: Performed By: #### 2 261914, 2038440, 5976616, 627697976, 32751621, 2383312, 98336111, 1118213, 6226377 #### [facility] [address] [place] [address] Cholesterol in VLDL [Mass/Vol] 23 mg/dL Normal 7-40 [facility] Comment on above: Performed By: #### 2 084051, 4703264, 5321465, 797144547, 36714362, 3134960, 61230583, 9717231, 4624651 #### [facility] [address] [place] [address] Triglyceride [Mass/Vol] 115 mg/dL Normal <=149 [facility] Comment on above: Performed By: #### 2 689043, 0921086, 2262119, 867110094, 61536817, 9451221, 86247232, 3700711, 3123838 #### [facility] [address] [place] [address] Lyteson 07-10-2023 Anion gap [Moles/Vol] 10 mmol/L Normal 6-16 [facility] Comment on above: Performed By: #### 2 320170, 4043398, 1429526, 804727749, 07671283, 7583393, 81394814, 6970617, 6284137 #### [facility] [address] [place] [address] Chloride [Moles/Vol] 111 mmol/L Normal 101-111 [facility] Comment on above: Performed By: #### 2 002172, 6527588, 6135828, 865731976, 01706090, 7940874, 74755998, 8829364, 7826868 #### [facility] [address] [place] [address] CO2 [Moles/Vol] 26 mmol/L Normal 21-31 [facility] Comment on above: Performed By: #### 2 446098, 6415506, 1029044, 065690810, 47036526, 8353429, 81326257, 7869404, 5338365 #### [facility] [address] [place] [address] Potassium [Moles/Vol] 3.8 mmol/L Normal 3.5-5.3 [facility] Comment on above: Performed By: #### 2 609678, 9202474, 6583493, 280519400, 74740889, 2423016, 27780106, 0886439, 9103130 #### [facility] [address] [place] [address] Sodium [Moles/Vol] 143 mmol/L Normal 135-145 [facility] Comment on above: Performed By: #### 2 550180, 8068863, 9969900, 866922960, 51331927, 1175777, 90755550, 2529582, 3278662 #### [facility] [address] [place] [address] Magnesiumon 07-10-2023 Magnesium [Mass/Vol] 1.8 mg/dL Normal 1.3-2.4 [facility] Comment on above: Performed By: #### 2 979854, 3583376, 5231574, 662175997, 10577367, 0410198, 43097594, 2756335, 0929512 #### [facility] [address] [place] [address] Monitor Recordon 07-10-2023 Monitor Record [id number]:127 Normal [facility] Operative Reporton Operative Report Indication for Surgery [...] patient will additionally be counseled by the Director Of Research And Development team and in follow-up. CAD: DAPT, beta-tamika, statin, risk factor modification. Complications None Technique Following full and informed consent the patient was brought to the Director Of Research And Development where sterile prep and drape were administered in usual fashion. Anesthesia was obtained in the right wrist with lidocaine after administration of conscious sedation. A 5/6 slender Terumo sheath was placed in the right radial artery without complication. Nitroglycerin and nicardipine were given via the sheath and heparin was given intravenously. A 6 Par[place]ayan XB3.0 catheter was advanced and selectively engaged [...] end of the procedure without complication. Normal [facility] Comment on above: Result Comment: Elec tronically Signed By: Sheila POSEY, Tiffany Chavarria\.br\Date and Time Signed: 07/10/23 03:28 EDT Troponin 6 Hr.on 07-10-2023 Troponin I.cardiac [Mass/Vol] 7681.70 pg/mL Abnormal . [facility] Comment on above: Result Comment: Crit ical [...] Sensitivity Troponin I Instructions For Use, Shivani [place], June 2018) Performed By: #### 2 703085, 7584970, 6246939, 261512445, 33932160, 6146540, 05166761, 3929255, 6408648 #### [facility] [address] [place] [address] Troponin 9 Hr.on 07-10-2023 Troponin I.cardiac [Mass/Vol] 9476.90 pg/mL Abnormal .-. [facility] Comment on above: Result Comment: Crit ical [...] Margo, June 2018) Performed By: #### 2 547697, 1442152, 9957252, 427226283, 93715836, 0407496, 30313772, 0652103, 2944873 #### [facility] [address] [place] [address] XR Chest Single Viewon 07-10 XR Chest [...] FINAL REPORT Dictated: 07/10/2023 8:17 am Silas Chne MD. Signed (Electronic Signature): 07/10/2023 8:17 am Signed by: Silas Chen MD Transcribed by: JEANINE Technologist: JORGE A Technical Comments Radiation Dose: Ka,r in mGy = . DAP = . Normal [facility] eGFRon 07-10-2023 GFR/1.73 sq M.predicted among non-blacks MDRD (S/P/Bld) [Vol rate/Area] 101 mL/min/1.73 m2 Normal >=59 [facility] Comment on above: Order Comment: Order added by Discern Expert. Result Comment: [address] [place] kidney disease could be indicated at eGFR's of less than 60 mL/min/1.73m2. Kidney failure is indicated at less than 15 mL/min/1.73m2. Performed By: #### 2 596964, 2842161, 7607979, 713347831, 82950261, 8825666, 21040774, 4107741, 1143489 #### [facility] [address] [place] [address] Auto Diffon 07-09-2023 Basophils/100 WBC (Bld) 0.6 % Normal 0.0-2.0 [facility] Comment on above: Order Comment: Order Added by Discern Expert. Performed By: #### 2 218863, 7759474, 7580056, 310424455, 43809251, 9411088, 71868193, 9065220, 3384419 #### [facility] [address] [place] [address] Basophils/Leukocytes Auto (Bld) [Pure # fraction] 0.0 E9/L Normal 0.0-0.2 [facility] Comment on above: Order Comment: Order Added by Discern Expert. Performed By: #### 2 914676, 2074234, 6295896, 352907618, 94732665, 8539164, 98581653, 9364115, 6219032 #### [facility] [address] [place] [address] Eosinophils/100 WBC (Bld) 1.5 % Normal 0.0-8.0 [facility] Comment on above: Order Comment: Order Added by Discern Expert. Performed By: #### 2 002811, 8613168, 7918693, 494534379, 47740435, 7771882, 62386316, 9048869, 7421089 #### [facility] [address] [place] [address] Eosinophils/Leukocyt es Auto (Bld) [Pure # fraction] 0.1 E9/L Normal 0.0-0.5 [facility] Comment on above: Order Comment: Order Added by Discern Expert. Performed By: #### 2 955360, 3181926, 1654909, 608868174, 80188652, 0931836, 75487524, 2518592, 9626817 #### [facility] [address] [place] [address] Lymphocytes/100 WBC (Bld) 32.6 % Normal 14.0-50.0 [facility] Comment on above: Order Comment: Order Added by Discern Expert. Performed By: #### 2 282900, 5981105, 7340037, 437651065, 86043101, 7799954, 32262383, 8202832, 3674331 #### [facility] [address] [place] [address] Lymphocytes/Leukocyt es Auto (Bld) [Pure # fraction] 1.8 E9/L Normal 1.0-4.0 [facility] Comment on above: Order Comment: Order Added by Discern Expert. Performed By: #### 2 415485, 8818878, 0206103, 138379700, 72425283, 5127671, 87337888, 4673283, 0022302 #### [facility] [address] [place] [address] Monocytes/100 WBC (Bld) 8.5 % Normal 4.0-14.0 [facility] Comment on above: Order Comment: Order Added by Discern Expert. Performed By: #### 2 487403, 6082362, 8303076, 384867665, 00699431, 7486747, 76422996, 5322667, 7976583 #### [facility] [address] [place] [address] Monocytes/Leukocytes Auto (Bld) [Pure # fraction] 0.5 E9/L Normal 0.2-1.0 [facility] Comment on above: Order Comment: Order Added by Discern Expert. Performed By: #### 2 214187, 7240324, 6015465, 139823662, 57756431, 7145733, 93557883, 5242250, 2499533 #### [facility] [address] [place] [address] Neutrophils/100 WBC (Bld) 56.8 % Normal 36.0-75.0 [facility] Comment on above: Order Comment: Order Added by Discern Expert. Performed By: #### 2 935102, 4277628, 9440662, 073799924, 14806122, 7112132, 79148521, 5080245, 0635299 #### [facility] [address] [place] [address] Neutrophils/Leukocyt es Auto (Bld) [Pure # fraction] 3.2 E9/L Normal 2.0-7.5 [facility] Comment on above: Order Comment: Order Added by Discern Expert. Performed By: #### 2 374667, 4637497, 2364046, 521078723, 39524400, 7765252, 97039876, 8244803, 2313408 #### [facility] [address] [place] [address] BMPon 07-09-2023 Anion gap [Moles/Vol] 12 mmol/L Normal 6-16 [facility] Comment on above: Performed By: #### 2 791753, 0900538, 0911351, 651054634, 16917916, 1658140, 82381736, 7251434, 1996251 #### [facility] [address] [place] [address] Calcium [Mass/Vol] 9.3 mg/dL Normal 8.9-11.1 [facility] Comment on above: Performed By: #### 2 953905, 8121340, 3743677, 588695848, 56931130, 9390500, 35226866, 8829129, 5130366 #### [facility] [address] [place] [address] Chloride [Moles/Vol] 100 mmol/L Low 101-111 [facility] Comment on above: Performed By: #### 2 186919, 4375294, 5767594, 623996383, 41121774, 4839450, 06827465, 5737074, 9229803 #### [facility] [address] [place] [address] CO2 [Moles/Vol] 29 mmol/L Normal 21-31 [facility] Comment on above: Performed By: #### 2 898584, 8035203, 0496852, 457966920, 77034817, 6517515, 45022358, 3886738, 8723739 #### [facility] [address] [place] [address] Creatinine [Mass/Vol] 0.7 mg/dL Normal 0.5-1.3 [facility] Comment on above: Performed By: #### 2 379164, 2633525, 3628731, 867654311, 46274556, 1181970, 65756413, 0498109, 4161859 #### [facility] [address] [place] [address] Glucose [Mass/Vol] 101 mg/dL Normal 55-199 [facility] Comment on above: Result Comment: If t his glucose result represents a fasting glucose, interpretation should refer to the following reference range: 55-99 mg/dL Performed By: #### 2 458983, 8531533, 2852346, 525316965, 37311449, 1525189, 95380430, 3738828, 0721091 #### [facility] [address] [place] [address] Potassium [Moles/Vol] 2.9 mmol/L Low 3.5-5.3 [facility] Comment on above: Performed By: #### 2 041925, 8723460, 1602634, 320280400, 85232094, 7535215, 73798054, 2272431, 3077480 #### [facility] [address] [place] [address] Sodium [Moles/Vol] 138 mmol/L Normal 135-145 [facility] Comment on above: Performed By: #### 2 146557, 8586608, 1397336, 798278012, 40304647, 9311083, 18637061, 1933686, 5020746 #### [facility] [address] [place] [address] Urea nitrogen [Mass/Vol] 7 mg/dL Normal 5-21 [facility] Comment on above: Performed By: #### 2 806757, 2102443, 1892309, 344494329, 05452440, 5494005, 82399424, 8587656, 6733534 #### [facility] [address] [place] [address] Urea nitrogen/Creatinine [Mass ratio] 10 No Units Normal 10-20 [facility] Comment on above: Performed By: #### 2 836745, 8166385, 6615489, 409591061, 47823113, 4157885, 46700941, 5119143, 2185539 #### [facility] [address] [place] [address] CBC w/ Auto Diffon 3 Erythrocyte distribution width (RBC) [Ratio] 12.6 % Normal 10.9-14.2 [facility] Comment on above: Performed By: #### 2 306405, 5773020, 1387118, 923005160, 23928307, 5327738, 60994633, 1984898, 9778421 #### [facility] [address] [place] [address] Hematocrit (Bld) [Volume fraction] 42.8 % Normal 34.0-46.0 [facility] Comment on above: Performed By: #### 2 061141, 8447943, 7049582, 497365105, 07947328, 2011303, 27678007, 5439802, 6196409 #### [facility] [address] [place] [address] Hemoglobin (Bld) [Mass/Vol] 14.7 g/dL Normal 12.0-16.0 [facility] Comment on above: Performed By: #### 2 963046, 4336155, 3222437, 975030137, 03800537, 5097975, 01848271, 0600412, 5790618 #### [facility] [address] [place] [address] MCH (RBC) [Entitic mass] 32.3 pg Normal 27.0-34.0 [facility] Comment on above: Performed By: #### 2 949062, 1452847, 8500162, 223419743, 21586170, 2532899, 47763319, 2371100, 8845803 #### [facility] [address] [place] [address] MCHC (RBC) [Mass/Vol] 34.4 g/dL Normal 31.4-36.0 [facility] Comment on above: Performed By: #### 2 077949, 0597996, 1477835, 929669510, 60930822, 1595873, 22142665, 6516033, 1073835 #### [facility] [address] [place] [address] MCV (RBC) [Entitic vol] 93.8 fL Normal 80.0-100.0 [facility] Comment on above: Performed By: #### 2 326943, 8200203, 0575129, 288460105, 73146422, 6219393, 57795962, 9832930, 6804492 #### [facility] [address] [place] [address] Platelet mean volume (Bld) [Entitic vol] 8.2 fL Normal 6.4-10.8 [facility] Comment on above: Performed By: #### 2 995578, 2083337, 2924537, 228866180, 21527872, 4323390, 67110520, 3826871, 5279033 #### [facility] [address] [place] [address] Platelets (Bld) [#/Vol] 266.0 E9/L Normal 150.0-500.0 [facility] Comment on above: Performed By: #### 2 801973, 1252505, 7638974, 734593793, 66889236, 6976993, 92493659, 5459837, 6962899 #### [facility] [address] [place] [address] RBC (Bld) [#/Vol] 4.6 E12/L Normal 4.3-5.9 [facility] Comment on above: Performed By: #### 2 072745, 2493212, 4238716, 722229088, 84586663, 4349679, 59635751, 5807527, 7440256 #### [facility] [address] [place] [address] WBC corrected for nucl RBC Auto (Bld) [#/Vol] 5.6 E9/L Normal 4.0-11.0 [facility] Comment on above: Performed By: #### 2 153677, 1067730, 2607676, 014956674, 23797872, 6263825, 00203367, 8560921, 2232917 #### [facility] [address] [place] [address] CHEMISTRYOrdered By: SYSTEM SYSTEM on 07-09-2023 Troponin I.cardiac [Mass/Vol] 2850.80 pg/mL Invalid Interpretation Code 10.10 - 27.10 pg/mL [facility] Remisol Comment on above: Result Comment: Crit [...] rate/Area] 97 mL/min/1.73 m2 Normal >=59mL/min/1.73 m2 [facility] Chem S Glucose [Mass/Vol] 101 mg/dL Normal 55 - 199 mg/dL FT Remisol Potassium [Moles/Vol] 2.9 mmol/L Low 3.5 - 5.3 mmol/L [facility] Remisol Sodium [Moles/Vol] 138 mmol/L Normal 135 - 145 mmol/L [facility] Remisol Urea nitrogen [Mass/Vol] 7 mg/dL Normal 5 - 21 mg/dL [facility] Remisol Urea nitrogen/Creatinine [Mass ratio] 10 mg/mg Normal 10 - 20 [facility] Remisol COAGULATIONOrdered By: Santiago Schwarz on 07-09-2023 aPTT Coag (PPP) [Time] 32.3 s Normal 25.1 - 36.5 second(s) [facility] Auto Coag INR Coag (PPP) [Relative time] 1.0 {INR} Invalid Interpretation Code [facility] Auto Coag PT Coag (PPP) [Time] 10.9 s Normal 9.4 - 1 2.5 second(s) [facility] Auto Coag Consent for Treatmenton 06-15 Consent for Treatment [id number]#[id number]:127 Normal [facility] ED Note-Physicianon 07-09-20 23 ED Note-Physician Basic [...] for cardiology. Patient be taken to the Director Of Research And Development for further intervention. Shared decision making: As [...] sulfamethoxazole (Unknow (more content not included)... Normal [facility] Comment on above: Result Comment: Elec tronically [...] 93.8 fL Normal 80.0 - 100.0 fL [facility] HemeAutoSS Platelet mean volume (Bld) [Entitic vol] 8.2 fL Normal 6.4 - 10.8 fL [facility] HemeAutoSS Platelets (Bld) [#/Vol] 266.0 E9/L Normal 150.0 - 500.0 E9/L [facility] HemeAutoSS RBC (Bld) [#/Vol] 4.6 E12/L Normal 4.3 - 5.9 E12/L [facility] HemeAutoSS WBC corrected for nucl RBC Auto (Bld) [#/Vol] 5.6 E9/L Normal 4.0 - 11.0 E9/L [facility] HemeAutoSS Monitor Recordon 07-09-2023 Monitor Record [id number]#1.00CD:127 Normal [facility] Monitor Record [id number] 365#1.00CD:127 Normal [facility] PT & PTTon 07-09-2023 aPTT Coag (PPP) [Time] 32.3 second(s) Normal 25.1-36.5 [facility] Comment on above: Result Comment: Para meter [...] the same coagulation reagent and instrumentation as [facility]. Currently there are no coagulation studies available worldwide for children to 14 days, and no normal ranges. Heparin therapeutic range (represented by Anti-Factor Xa activity of 0.2 - 0.4 U/mL) corresponds to PTT of 56.6 - 109.0 sec. Performed By: #### 2 631267, 5926355, 7531538, 719042340, 86002404, 3017692, 37502503, 6512852, 4003142 #### [facility] [address] [place] [address] INR Coag (PPP) [Relative time] 1.0 {INR} Invalid Interpretation Code [facility] Comment on above: Result Comment: INR results are specifically intended to assess patients stabilized on long-term Anticoagulation therapy suggested INR?s ?Less Intensive Anticoagulation? 2.0 ? 3.0 Conventional Range 3.0 ? 4.5 Performed By: #### 2 668864, 4189739, 0250685, 051019971, 00142434, 2173703, 87919576, 3231344, 8074753 #### [facility] [address] [place] [address] PT Coag (PPP) [Time] 10.9 second(s) Normal 9.4-12.5 [facility] Comment on above: Result Comment: 15 d [...] the same coagulation reagent and instrumentation as [facility]. Currently there are no coagulation studies available worldwide for children to 14 days, and no normal ranges. Performed By: #### 2 306865, 9588610, 5224654, 096057063, 56110492, 5419849, 95458819, 2570736, 1936502 #### [facility] [address] [place] [address] Pre-Arrival Noteon 3 Pre-Arrival Note Pre-Arrival Summary Name: chest pain/nausea, ncems Current Date: 07/09/2023 19:33:15 EDT Gender: Female Date of : Age: Pre-Arrival Type: EMS ETA: 07/09/2023 19:52:00 EDT Primary Care Physician: Presenting Problem: chest pains Pre-Arrival User: Ant Anglin RN Referring Source: Location: [place] Completion Date/Time: 07/09/2023 19:22:[address] [facility] Emergency Department Pre-Hospital Report Form ___ Vital Signs: 96/61 97p/ulse, 18, 98% room air/ , Pre-Hospital Report:chest pain onset 1 hour ago. Treatment in Route: 4 ASA, zofran x2, nitro x1. IV with fluids infusing. Response to Treatment: Misc. Issues: Normal [facility] RAD - Preliminary Radiology Reporton 07-09-2023 RAD - Preliminary Radiology Report [id number]#[id number]:127 Normal [facility] Troponin 0 Hr.on 07-09-2023 Troponin I.cardiac [Mass/Vol] 509.70 pg/mL Abnormal 10.10-27.10 [facility] Comment on above: Result Comment: Unab le [...] Sensitivity Troponin I Instructions For Use, Shivani [place], June 2018) Performed By: #### 2 713888, 1341107, 6716759, 749489995, 49679290, 0581720, 27736696, 2936860, 8018409 #### [facility] [address] [place] [address] Troponin 3 Hr.on 07-09-2023 Troponin I.cardiac [Mass/Vol] 2850.80 pg/mL Abnormal 10.10-27.10 [facility] Comment on above: Result Comment: Crit ical [...] High Sensitivity Troponin I Instructions For Use, [place], June 2018) Performed By: #### 2 357456, 8983987, 4333665, 455118981, 48316371, 3827835, 68273526, 4929220, 5231186 #### [facility] [address] [place] [address] eGFRon 07-09-2023 GFR/1.73 sq M.predicted among non-blacks MDRD (S/P/Bld) [Vol rate/Area] 97 mL/min/1.73 m2 Normal >=59 [facility] Comment on above: Order Comment: Order added by Discern Expert. Result Comment: [address] [place] kidney disease could be indicated at eGFR's of less than 60 mL/min/1.73m2. Kidney failure is indicated at less than 15 mL/min/1.73m2. Performed By: #### 2 962953, 1108283, 2130730, 844214911, 54717878, 2718929, 10792772, 1471280, 5175589 #### [facility] [address] [place] [address] Creatinine (Bld) [Mass/Vol]O rdered By: Jose Cruz on 06-18-2023 Creatinine [Mass/Vol] 0.7 mg/dL 0.6-1.[address] [facility] Comment on above: ER/ESD physician is notified/shown all ISTAT results.Critical values may be confirmed by laboratory testing ifdeemed necessary by ER attending doctor. MR lumbar spine wo/w conon 0 06-18-2023 MR lumbar spine wo/w con [facility] [place] [address] [place], [place] [id number] MRI Report Signed Patient: Livia Jacobo MR#: [id number] : 1960 Acct:[id number] Age/Sex: 62 / F ADM Date: 06/18/23 Loc: MR Room: Type: [facility] [address] Attending Dr: Jose Cruz MD Copies to: [...] Eliot Walsh M.D.06/18/2023 2:10 PM Dictation Location: [place] [address] Transcribed By: [facility] 06/18/23 1410 Dictated By: Eliot Walsh DO 06/18/23 1403 Signed By: 06/18/23 1410 Normal [facility] Physician [facility] METHYLMALONIC ACID (MMA)on 0 02-16-2023 Methylmalonic Acid, Serum 141 nmol/L Normal 0-378 [facility] Comment on above: Performed By: #### M MA2 #### [facility] [address] [place] [address] Dr. Khadra Pascual PROTEIN ELECTROPHERESIS W/IN TERPRETATIONon 02-16-2023 Albumin [Mass/Vol] 3.6 g/dL Normal 2.9-4.4 [facility] Comment on above: Performed By: #### P RTELIN #### [facility] [address] [place] [address] [address] Khadra Pascual Albumin/Globulin [Mass ratio] 1.0 {ratio} Normal 0.7-1.7 [facility] Comment on above: Performed By: #### P RTELIN #### [facility] [address] [place] [address] [address] Khadra Pascual Baplf-2-Ngrdbibq 0.3 g/dL Normal 0.0-0.4 [place] Comment on above: Performed By: #### P RTELIN #### [facility] [address] [address] [address] Khadra Pascual Ptght-0-Uuwobhbp 1.0 g/dL Normal 0.4-1.0 [place] Comment on above: Performed By: #### P RTELIN #### [facility] [address] [address] [address] Khadra Pascual Beta Globulin 1.2 g/dL Normal 0.7-1.3 [facility] Comment on above: Performed By: #### P RTELIN #### [facility] [address] [place] [address] Dr. Khadra Pascual Gamma Globulin 1.2 g/dL Normal 0.4-1.8 [facility] Comment on above: Performed By: #### P RTELIN #### [facility] [address] [place] [address] Dr. Khadra Pascual Globulin (S) [Mass/Vol] 3.7 g/dL Normal 2.2-3.9 [facility] Comment on above: Performed By: #### P RTELIN #### [facility] [address] [place] [address] Dr. Khadra Pascual M-Gene Not Observed Normal Not Observed [facility] Comment on above: Performed By: #### P RTELIN #### [facility] [address] [place] [address] Dr. Khadra Pascual P E Interpretation, S Comment Normal [facility] Comment on above: Result Comment: The SPE pattern appears unremarkable. Evidence of monoclonal protein is not apparent. Performed By: #### P RTELIN #### [facility] [address] [place] [address] Dr. Khadra Pascual PDF . Normal [facility] Comment on above: Performed By: #### P RTELIN #### [facility] [address] [place] [address] Dr. Khadra Pascual Please note: Comment Normal [facility] Comment on above: Result Comment: Prot ein electrophoresis scan will follow via computer, mail, or cork floor installer delivery. Performed By: #### P RTELIN #### [facility] [address] [address] [address] Khadra Pascual Protein [Mass/Vol] 7.3 g/dL Normal 6.0-8.5 [facility] Comment on above: Performed By: #### P RTELIN #### [facility] [address] [place] [address] Dr. Khadra Pascual REMY COMPREHENSIVE PROFILEon 02-15-2023 Anti-Centromere B Antibodies <0.2 Normal 0.0-0.9 [facility] Comment on above: Performed By: #### A NAPROF #### [facility] [address] [place] [address] Dr. Khadra Pascual Anti-DNA (DS) Ab Qn 3 IU/mL Normal 0-9 [facility] Comment on above: Result Comment: Nega tive <5 Equivocal 5 - 9 Positive >9 Performed By: #### A NAPROF #### [facility] [address] [place] [address] Dr. Khadra Pascual Anti-Magalis-1 <0.2 Normal 0.0-0.9 [facility] Comment on above: Performed By: #### A ELENIROF #### [facility] [address] [place] [address] Dr. Khadra Pascual Antichromatin Antibodies <0.2 Normal 0.0-0.9 [facility] Comment on above: Performed By: #### A NAPROF #### [facility] [address] [place] [address] Dr. Khadra Pascual ANTIRIBOSOMAL P AB <0.2 Normal 0.0-0.9 [facility] Comment on above: Performed By: #### A NAPROF #### [facility] [address] [place] [address] Dr. Khadra Pascual Antiscleroderma-70 Antibodies <0.2 Normal 0.0-0.9 [facility] Comment on above: Performed By: #### A NAPROF #### [facility] [address] [place] [address] Dr. Khadra Pascual COMMENT Comment Normal [facility] Comment on above: Result Comment: Auto antibody Disease Association Condition Frequency Antinuclear Antibody, SLE, mixed connective Direct (REMY-D) tissue diseases dsDNA SLE 40 - 60% Chromatin Drug induced SLE 90% SLE 48 - 97% SSA (Ro) SLE 25 - 35% Sjogren's Syndrome 40 - 70% Lupus 100% SSB (La) SLE 10% Sjogren's Syndrome 30% Sm (anti-Jackson) SLE 15 - 30% EMPLOYMENT RECRUITER Mixed Connective Tissue Disease 95% (U1 nRNP, SLE 30 - 50% anti-ribonucleoprotein) Polymyositis and/or Dermatomyositis 20% Scl-70 (antiDNA Scleroderma (diffuse) 20 - 35% topoisomerase) Crest 13% Magalis-1 Polymyositis and/or Dermatomyositis 20 - 40% Centromere B Scleroderma - Crest variant 80% Ribosomal P SLE 10 - 20% Performed By: #### A NAPROF #### [facility] [address] [place] [address] Dr. Khadra Pascual EMPLOYMENT RECRUITER Antibodies <0.2 Normal 0.0-0.9 [facility] Comment on above: Performed By: #### A NAPROF #### [facility] [address] [place] [address] Dr. Khadra Forresterogrkiana's Anti-SS-A <0.2 Normal 0.0-0.9 [facility] Comment on above: Performed By: #### A NAPROF #### [facility] [address] [place] [address] Dr. Khadra Forresterogrkiana's Anti-SS-B <0.2 Normal 0.0-0.9 The [facility] Comment on above: Performed By: #### A NAPROF #### [facility] [address] [place] [address] Dr. Khadra Pascual Jackson Antibodies <0.2 Normal 0.0-0.9 [place] Comment on above: Performed By: #### A NAPROF #### [facility] [address] [place] [address] Dr. Khadra Pascual Jackson/EMPLOYMENT RECRUITER Antibodies <0.2 Normal 0.0-0.9 [facility] Comment on above: Performed By: #### A NAPROF #### [facility] [address] [address] [address] Khadra Pascual CRPon 02-14-2023 CRP [Mass/Vol] mg/L Normal <=1.0 [facility] Comment on above: Performed By: #### T SH, T7, CRP, CMP #### [facility] [address] [address] [address] Khadra Pascual FREE THYROXINE INDEX T7on FTI 1.70 Normal 1.30-4.50 [facility] Comment on above: Performed By: #### T SH, T7, CRP, CMP #### [facility] [address] [address] [address] Khadra Pascual T3U 32.0 % Normal 30.0-39.0 [facility] Comment on above: Performed By: #### T SH, T7, CRP, CMP #### [facility] [address] [address] [address] Khadra Pascual T4 [Mass/Vol] 5.30 ug/dL Normal 4.80-13.90 [facility] Comment on above: Performed By: #### T SH, T7, CRP, CMP #### [facility] [address] [address] [address] Khadra Pascual GLYCOHEMOGLOBIN A1Con 2022 ADA RECOMMENDATION SEE BELOW Normal [facility] Comment on above: Result Comment: ADA RECOMMENDED LIMIT 4.0 - 6.0 ADA THERAPEUTIC TARGET < 7.0 ACTION SUGGESTED > 7.0 Performed By: #### A 1C ####[facility] [id number] [address]. Khadra Pascual Glucose [Mass/Vol] 117 mg/dL Normal [facility] Comment on above: Performed By: #### A 1C ####[facility] [id number] [address]Dr. Khadra Pascual HbA1c (Bld) [Mass fraction] 5.7 % Normal 4.5-6.2 [facility] Comment on above: Performed By: #### A 1C ####[facility] [address] [address]Dr. Khadra Pascual PROF 14(COMP METB)on 023 Albumin [Mass/Vol] 3.9 g/dL Normal 3.4-5.0 [facility] Comment on above: Performed By: #### T SH, T7, CRP, CMP #### [facility] [address] [address] [address] Khadra Pascual Albumin/Globulin [Mass ratio] 1.0 {ratio} Normal [facility] Comment on above: Performed By: #### T SH, T7, CRP, CMP #### [facility] [address] [address] [address] Khadra Pascual ALP [Catalytic activity/Vol] 176 U/L Critically high 46-116 [facility] Comment on above: Performed By: #### T SH, T7, CRP, CMP #### [facility] [address] [address] [address] Khadra Pascual ALT [Catalytic activity/Vol] 23 U/L Normal 14-59 [facility] Comment on above: Performed By: #### T SH, T7, CRP, CMP #### [facility] [address] [address] [address] Khadra Pascual Anion gap [Moles/Vol] 10.5 mmol/L Normal [facility] Comment on above: Performed By: #### T SH, T7, CRP, CMP #### [facility] [address] [address] [address] Khadra Pascual AST [Catalytic activity/Vol] 17 U/L Normal 15-37 [facility] Comment on above: Performed By: #### T SH, T7, CRP, CMP #### [facility] [address] [address] [address] Khadra Pascual Bilirubin [Mass/Vol] 0.2 mg/dL Normal 0.2-1.0 [facility] Comment on above: Performed By: #### T SH, T7, CRP, CMP #### [facility] [address] [address] [address] Khadra Pascual Calcium [Mass/Vol] 9.6 mg/dL Normal 8.5-10.1 [facility] Comment on above: Performed By: #### T SH, T7, CRP, CMP #### [facility] [address] [address] [address] Khadra Pascual Chloride [Moles/Vol] 102 mmol/L Normal 98-107 [facility] Comment on above: Performed By: #### T SH, T7, CRP, CMP #### [facility] [address] [place] [address] Dr. Khadra Pascual CO2 [Moles/Vol] 28.5 mmol/L Normal 21.0-32.0 [facility] Comment on above: Performed By: #### T SH, T7, CRP, CMP #### [facility] [address] [place] [address] Dr. Khadra Pascual Creatinine [Mass/Vol] 0.70 mg/dL Normal 0.55-1.02 [facility] Comment on above: Performed By: #### T SH, T7, CRP, CMP #### [facility] [address] [place] [address] Dr. Khadra Pascual EGFR-AF SENEGALESE >60 Normal >=60 [facility] Comment on above: Performed By: #### T SH, T7, CRP, CMP #### [facility] [address] [place] [address] Dr. Khadra Pascual EGFR-NON AF SENEGALESE >60 Normal >=60 [facility] Comment on above: Performed By: #### T SH, T7, CRP, CMP #### [facility] [address] [address] [address] Khadra Pascual Globulin (S) [Mass/Vol] 4.0 g/dL Normal [facility] Comment on above: Performed By: #### T SH, T7, CRP, CMP #### [facility] [address] [place] [address] Dr. Khadra Pascual Glucose [Mass/Vol] 88 mg/dL Normal 74-106 [facility] Comment on above: Performed By: #### T SH, T7, CRP, CMP #### [facility] [address] [address] [address] Khadra Pascual Potassium [Moles/Vol] 4.0 mmol/L Normal 3.5-5.1 [facility] Comment on above: Performed By: #### T SH, T7, CRP, CMP #### [facility] [address] [address] [address] Khadra Pascual Protein [Mass/Vol] 7.9 g/dL Normal 6.4-8.2 [facility] Comment on above: Performed By: #### T SH, T7, CRP, CMP #### [facility] [address] [address] [address] Khadra Pascual Sodium [Moles/Vol] 137 mmol/L Normal 136-145 [facility] Comment on above: Performed By: #### T SH, T7, CRP, CMP #### [facility] [address] [address] [address] Khadra Pascual Urea nitrogen [Mass/Vol] 8.0 mg/dL Normal 7.0-18.0 [facility] Comment on above: Performed By: #### T SH, T7, CRP, CMP #### [facility] [address] [place] [address] Dr. Khadra Pascual Urea nitrogen/Creatinine [Mass ratio] 11.4 mg/mg Normal [facility] Comment on above: Performed By: #### T SH, T7, CRP, CMP #### [facility] [address] [address] [address] [facility] mm/hr Normal <=30 [facility] Comment on above: Performed By: #### S EDR ####[facility] [id number] [address]Dr. Khadra Pascual TSHon 02-14-2023 TSH 0.826 uIU/mL Normal 0.358-3.740 [facility] Comment on above: Performed By: #### T SH, T7, CRP, CMP #### [facility] [address] [place], [place] [address] Dr. Khadra Pascual VIT B12 AND FOLATEon 023 Cobalamin (Vitamin B12) [Mass/Vol] 291.0 pg/mL Normal 193.0-986.0 [facility] Comment on above: Performed By: #### B 12FOL #### [facility] [address] [address] [address] Khadra Pascual FOLATE 14.50 ng/mL Normal 8.60-58.90 [facility] Comment on above: Performed By: #### B 12FOL #### [facility] [address] [address] LUNG CANCER SCREENINGon [...] MACHADO Date: 2022-12-08 09:32 Normal [facility] Ambulatory Visit Summaryon 1 Ambulatory Visit Summary LIVIA JACOBO :1960 Visit Date:09/13/2022 Ambulatory Visit Instructions Your Diagnosis Hypertensive urgency HTN (hypertension), benign Primary insomnia Anxiety and depression RLS (restless legs syndrome) BMI 32.0-32.9,adult Current smoker Screening mammogram for breast cancer Post-menopause Your Care Team Attending Physician - Dorie Luis MD. Primary Care Physician - Dorie Luis MD. This Is Your Medications List amlodipine [...] PM EST With: Dorie Luis MD Where: [facility] [place] Invalid Interpretation Code HTN (hypertension), benign [facility] Patient Educationon 09-13-20 22 Patient Education Cardiovascular [...] ? Avoi (more content not included)... Normal [facility] GLUCOSE BLOODon 09-07-2022 Glucose [Mass/Vol] 103 mg/dL Normal 74-106 [facility] Comment on above: Performed By: #### G BLANCA, LIPID ####[facility] [id number] [id number] Pascual LIPID PROFILEon 09-07-2022 CHOL-HDL RATIO NORM SEE BELOW Normal [facility] Comment on above: Result Comment: 3.3 - 4.4 LOW RISK 4.4 - 7.1 AVERAGE RISK 7.1 - 11.0 MODERATE RISK >11.0 HIGH RISK Performed By: #### G BLANCA, LIPID ####[facility] [id number] [place], [place] [address]GcPascale Pascual Cholesterol [Mass/Vol] 163 mg/dL Normal <=200 [facility] Comment on above: Performed By: #### G BLANCA, LIPID ####[facility] [id number] [id number] Khadra Pascual Cholesterol in HDL [Mass/Vol] 50 mg/dL Normal 40-60 [facility] Comment on above: Performed By: #### G BLANCA, LIPID ####[facility] [id number] [id number]. Khadra Pascual Cholesterol in LDL [Mass/Vol] 74.8 mg/dL Normal [facility] Comment on above: Performed By: #### G BLANCA, LIPID ####[facility] [address] [address]Dr. Khadra Pascual Cholesterol.total/Ch olesterol in HDL [Mass ratio] 3.3 {ratio} Normal [facility] Comment on above: Performed By: #### G BLANCA, LIPID ####[facility] [id number] [address]Dr. Khadra Pascual HDL NORMAL > or = 60 mg/dl - LOW CARDIOVASCULAR RISK <40 mg/dl - HIGH CARDIOVASCULAR RISK Normal [facility] Comment on above: Performed By: #### G BLANCA, LIPID ####[facility] [id number] [id number]. Khadra Pascual LDL CALC NORMAL SEE BELOW Normal [facility] Comment on above: Result Comment: <100 mg/dl OPTIMAL 100 - 129 mg/dl NEAR OR ABOVE OPTIMAL 130 - 159 mg/dl BORDERLINE HIGH 160 - 189 mg/dl HIGH >190 mg/dl VERY HIGH Performed By: #### G BLANCA, LIPID ####[facility] [id number] [id number][address] Sherlynusha Pascual Triglyceride [Mass/Vol] 191 mg/dL Critically high <=150 [facility] Comment on above: Performed By: #### G BLANCA, LIPID ####[facility] [id number] [id number]. Sherlynusha Pascual VLDL CALC 38.2 mg/dL Normal [facility] Comment on above: Performed By: #### G BLANCA, LIPID ####[facility] [id number] [place], [place] [address]Xl. Khadra Pascual XR WRIST RT MIN 3 [...] WEEKS Date: 2022-05-19 14:05 Normal [facility] Vital Signs Date Time Vital Sign Value Performing Clinician Hugh brandon 08-13-2024 18:00-0400 Hourly Rounding [facility] 08-13-2024 18:00-0400 Promise to Return [facility] 08-13-2024 17:44-0400 Hourly Rounding [facility] 08-13-2024 17:44-0400 Promise to Return [facility] 08-13-2024 17:13-0400 Heart rate 70 /min [facility] 08-13-2024 17:13-0400 Respiratory rate 18 /min [facility] 08-13-2024 17:13-0400 SaO2% (BldA) [Mass fraction] 99 % [facility] 08-13-2024 17:06-0400 Blood Pressure Location [facility] 08-13-2024 17:06-0400 Body temperature 97.34 [degF] [facility] 08-13-2024 17:06-0400 Diastolic blood pressure 78 mm[Hg] [facility] 08-13-2024 17:06-0400 Heart rate 78 /min [facility] 08-13-2024 17:06-0400 SaO2% (BldA) [Mass fraction] 93 % [facility] 08-13-2024 17:06-0400 Systolic blood pressure 128 mm[Hg] [facility] 08-13-2024 17:05-0400 SaO2% (BldA) [Mass fraction] 93 % [facility] 08-13-2024 17:03-0400 Heart rate 75 /min [facility] 08-13-2024 17:03-0400 Respiratory rate 18 /min [facility] 08-13-2024 16:00-0400 Hourly Rounding [facility] 08-13-2024 16:00-0400 Promise to Return [facility] 08-13-2024 14:35-0400 Diastolic blood pressure 74 mm[Hg] [facility] 08-13-2024 14:35-0400 Heart rate 76 /min [facility] 08-13-2024 14:35-0400 Mean blood pressure 91 mm[Hg] [facility] 08-13-2024 14:35-0400 Respiratory rate 19 /min [facility] 08-13-2024 14:35-0400 Systolic blood pressure 126 mm[Hg] [facility] 08-13-2024 13:15-0400 Diastolic blood pressure 62 mm[Hg] [facility] 08-13-2024 13:15-0400 Mean blood pressure 79 mm[Hg] [facility] 08-13-2024 13:15-0400 Respiratory rate 22 /min [facility] 08-13-2024 13:15-0400 Systolic blood pressure 114 mm[Hg] [facility] 08-13-2024 12:13-0400 Mean blood pressure 83 mm[Hg] [facility] 08-13-2024 12:13-0400 Respiratory rate 24 /min [facility] 08-13-2024 08:51-0400 Body temperature 98.6 [degF] [facility] 08-13-2024 08:51-0400 Heart rate 82 /min [facility] 08-13-2024 08:51-0400 Respiratory rate 18 /min [facility] 07-04-2024 13:01-0400 Blood Pressure Location Amilcar Matthews [facility] 07-04-2024 13:01-0400 Diastolic blood pressure 86 mm[Hg] Amilcar Matthews [facility] 07-04-2024 13:01-0400 Heart rate 85 /min Amilcar Matthews [facility] 07-04-2024 13:01-0400 Respiratory rate 16 /min Amilcar Matthews [facility] 07-04-2024 13:01-0400 SaO2% (BldA) [Mass fraction] 93 % Amilcar Matthews [facility] 07-04-2024 13:01-0400 Systolic blood pressure 132 mm[Hg] Amilcar Matthews [facility] 05-30-2024 10:40-0400 Diastolic blood pressure 106 mm[Hg] Amilcar Matthews [facility] 05-30-2024 10:40-0400 Mean blood pressure 128 mm[Hg] Amilcra Matthews [facility] 05-30-2024 10:40-0400 Systolic blood pressure 172 mm[Hg] Amilcar Matthews [facility] 05-30-2024 10:30-0400 Blood Pressure Location Amilcar Matthews [facility] 05-30-2024 10:30-0400 Diastolic blood pressure 110 mm[Hg] Amilcar Matthews [facility] 05-30-2024 10:30-0400 Heart rate 81 /min Amilcar Matthews [facility] 05-30-2024 10:30-0400 Respiratory rate 20 /min Amilcar Matthews [facility] 05-30-2024 10:30-0400 SaO2% (BldA) [Mass fraction] 92 % Amilcar Matthews [facility] 05-30-2024 10:30-0400 Systolic blood pressure 180 mm[Hg] Amilcar Matthews [facility] 05-16-2024 12:44-0400 Hourly Rounding Mbanefo OJUKWU [facility] 05-16-2024 12:44-0400 Promise to Return Mbanefo OJUKWU [facility] 05-16-2024 11:44-0400 Hourly Rounding Mbanefo OJUKWU [facility] 05-16-2024 11:44-0400 Promise to Return Mbanefo OJUKWU [facility] 05-16-2024 11:00-0400 Body temperature 97.34 [degF] Mbanefo OJUKWU [facility] 05-16-2024 11:00-0400 Diastolic blood pressure 81 mm[Hg] Mbanefo OJUKWU [facility] 05-16-2024 11:00-0400 Heart rate 76 /min Mbanefo OJUKWU [facility] 05-16-2024 11:00-0400 SaO2% (BldA) [Mass fraction] 95 % Mbanefo OJUKWU [facility] 05-16-2024 11:00-0400 Systolic blood pressure 137 mm[Hg] Mbanefo OJUKWU [facility] 05-16-2024 10:44-0400 Hourly Rounding Mbanefo OJUKWU [facility] 05-16-2024 10:44-0400 Promise to Return Mbanefo OJUKWU [facility] 05-16-2024 08:24-0400 SaO2% (BldA) [Mass fraction] 93 % Mbanefo OJUKWU [facility] 05-16-2024 04:23-0400 Heart rate 83 /min Mbanefo OJUKWU [facility] 05-16-2024 04:23-0400 SaO2% (BldA) [Mass fraction] 92 % Mbanefo OJUKWU [facility] 05-16-2024 04:23-0400 Respiratory rate 18 /min Mbanefo OJUKWU [facility] 05-16-2024 04:22-0400 Body temperature 97.7 [degF] Mbanefo OJUKWU [facility] 05-16-2024 04:22-0400 Blood Pressure Location Mbanefo OJUKWU [facility] 05-16-2024 04:22-0400 BP/Pulse Patient Position Mbanefo OJUKWU [facility] 05-16-2024 04:22-0400 Diastolic blood pressure 71 mm[Hg] Mbanefo OJUKWU [facility] 05-16-2024 04:22-0400 Mean blood pressure 83 mm[Hg] Mbanefo OJUKWU [facility] 05-16-2024 04:22-0400 Systolic blood pressure 108 mm[Hg] Mbanefo OJUKWU [facility] 05-16-2024 00:50-0400 Blood Pressure Location Mbanefo OJUKWU [facility] 05-16-2024 00:50-0400 Body temperature 97.52 [degF] Mbanefo OJUKWU [facility] 05-16-2024 00:50-0400 Diastolic blood pressure 77 mm[Hg] Mbanefo OJUKWU [facility] 05-16-2024 00:50-0400 Heart rate 101 /min Mbanefo OJUKWU [facility] 05-16-2024 00:50-0400 Mean blood pressure 97 mm[Hg] Mbanefo OJUKWU [facility] 05-16-2024 00:50-0400 Respiratory rate 16 /min Mbanefo OJUKWU [facility] 05-16-2024 00:50-0400 Systolic blood pressure 136 mm[Hg] Mbanefo OJUKWU [facility] 05-15-2024 19:46-0400 Mean blood pressure 113 mm[Hg] Mbanefo OJUKWU [facility] 05-15-2024 19:46-0400 Body temperature 98.6 [degF] Mbanefo OJUKWU [facility] 05-15-2024 19:00-0400 Respiratory rate 18 /min Mbanefo OJUKWU [facility] 05-15-2024 17:00-0400 Heart rate 91 /min Mbanefo OJUKWU [facility] 05-15-2024 17:00-0400 Mean blood pressure 120 mm[Hg] Mbanefo OJUKWU [facility] 05-15-2024 16:14-0400 Body temperature 97.88 [degF] Mbanefo OJUKWU [facility] 05-15-2024 16:14-0400 Heart rate 78 /min Mbanefo OJUKWU [facility] 05-15-2024 15:46-0400 Mean blood pressure 128 mm[Hg] Mbanefo OJUKWU [facility] 05-15-2024 13:17-0400 Heart rate 78 /min Mbanefo OJUKWU [facility] 01-06-2024 13:26-0500 Diastolic blood pressure 82 mm[Hg] Tiffany Christofferson [facility] 01-06-2024 13:26-0500 Heart rate 82 /min Tiffany Christofferson [facility] 01-06-2024 13:26-0500 SaO2% (BldA) [Mass fraction] 92 % Tiffany Christofferson [facility] 01-06-2024 13:26-0500 Systolic blood pressure 142 mm[Hg] Tiffany Christofferson [facility] 12-01-2023 10:59-0500 Blood Pressure Location Tiffany Christofferson [facility] 12-01-2023 10:59-0500 Diastolic blood pressure 76 mm[Hg] Tiffany Christofferson [facility] 12-01-2023 10:59-0500 Heart rate 88 /min Tiffany Jansen [facility] 12-01-2023 10:59-0500 SaO2% (BldA) [Mass fraction] 95 % Tiffany Jansen [facility] 12-01-2023 10:59-0500 Systolic blood pressure 120 mm[Hg] Tiffany Sheila [facility] 10-26-2023 11:15-0500 Body height 157.5 cm Bandar Castrejon MD Work Phone: [facility] 10-26-2023 11:15-0500 Body mass index (BMI) [Ratio] 29.15 kg/m2 Bandar Castrejon MD Work Phone: [facility] 10-26-2023 11:15-0500 Body weight 72.3 kg Bandar Castrejon MD Work Phone: [facility] 10-26-2023 11:15-0500 SaO2% (BldA) [Mass fraction] 99 % Bandar Castrejon MD Work Phone: [facility] 10-26-2023 10:56-0500 Body temperature 36 [degF] Bandar Castrejon MD Work Phone: [facility] 10-26-2023 10:56-0500 Diastolic blood pressure 73 mm[Hg] Bandar Castrejon MD Work Phone: [facility] 10-26-2023 10:56-0500 Heart rate 75 /min Bandar Castrejon MD Work Phone: [facility] 10-26-2023 10:56-0500 Respiratory rate 18 /min Bandar Castrejon MD Work Phone: [facility] 10-26-2023 10:56-0500 Systolic blood pressure 121 mm[Hg] Bandar Castrejon MD Work Phone: [facility] 09-07-2023 12:08-0400 Diastolic blood pressure 73 mm[Hg] Tiffany Jansen MD Work Phone: [facility] 09-07-2023 12:08-0400 Heart rate 85 /min Tiffany Jansen MD Work Phone: [facility] 09-07-2023 12:08-0400 Respiratory rate 18 /min Tiffany Jansen MD Work Phone: [facility] 09-07-2023 12:08-0400 SaO2% (BldA) [Mass fraction] 97 % Tiffany Jansen MD Work Phone: [facility] 09-07-2023 12:08-0400 Systolic blood pressure 150 mm[Hg] Tiffany Jansen MD Work Phone: [facility] 09-07-2023 08:13-0400 Body height 154.9 cm Tiffany Jansen MD Work Phone: [facility] 09-07-2023 08:13-0400 Body mass index (BMI) [Ratio] 29.95 kg/m2 Tiffany Jansen MD Work Phone: [facility] 09-07-2023 08:13-0400 Body temperature 97.5 [degF] Tiffany Jansen MD Work Phone: [facility] 09-07-2023 08:13-0400 Body weight 71.9 kg Tiffany Jansen MD Work Phone: [facility] 09-02-2023 13:33-0400 Hourly Rounding Ronobir HOMA [facility] 09-02-2023 13:33-0400 Promise to Return Ronobir HOMA [facility] 09-02-2023 12:40-0400 Heart rate 90 /min Ronobir HOMA [facility] 09-02-2023 12:40-0400 Respiratory rate 18 /min Ronobir HOMA [facility] 09-02-2023 12:40-0400 SaO2% (BldA) [Mass fraction] 93 % Ronobir HOMA [facility] 09-02-2023 12:27-0400 Heart rate 90 /min Ronobir HOMA [facility] 09-02-2023 12:21-0400 Hourly Rounding Ronobir HOMA [facility] 09-02-2023 12:21-0400 Promise to Return Ronobir HOMA [facility] 09-02-2023 11:24-0400 Heart rate 90 /min Ronobir HOMA [facility] 09-02-2023 11:24-0400 SaO2% (BldA) [Mass fraction] 91 % Ronobir HOMA [facility] 09-02-2023 11:24-0400 Body temperature 97.88 [degF] Ronobir HOMA [facility] 09-02-2023 11:24-0400 Diastolic blood pressure 69 mm[Hg] Ronobir HOMA [facility] 09-02-2023 11:24-0400 Mean blood pressure 80 mm[Hg] Ronobir HOMA [facility] 09-02-2023 11:24-0400 Systolic blood pressure 101 mm[Hg] Ronobir HOMA [facility] 09-02-2023 11:07-0400 Hourly Rounding Ronobir HOMA [facility] 09-02-2023 11:07-0400 Promise to Return Ronobir HOMA [facility] 09-02-2023 08:25-0400 Heart rate 78 /min Ronobir HOMA [facility] 09-02-2023 08:25-0400 Respiratory rate 18 /min Ronobir HOMA [facility] 09-02-2023 08:25-0400 SaO2% (BldA) [Mass fraction] 95 % Ronobir HOMA [facility] 09-02-2023 08:15-0400 Respiratory rate 18 /min Ronobir HOMA [facility] 09-02-2023 07:39-0400 Diastolic blood pressure 77 mm[Hg] Ronobir HOMA [facility] 09-02-2023 07:39-0400 Mean blood pressure 91 mm[Hg] Ronobir HOMA [facility] 09-02-2023 07:39-0400 Systolic blood pressure 121 mm[Hg] Ronobir HOMA [facility] 09-02-2023 07:37-0400 Body temperature 97.34 [degF] Ronobir HOMA [facility] 09-02-2023 04:00-0400 Blood Pressure Location Ronobir HOMA [facility] 09-02-2023 04:00-0400 Diastolic blood pressure 64 mm[Hg] Ronobir HOMA [facility] 09-02-2023 04:00-0400 Systolic blood pressure 105 mm[Hg] Ronobir HOMA [facility] 09-01-2023 21:57-0400 Blood Pressure Location Ronobir HOMA [facility] 09-01-2023 21:57-0400 Body temperature 97.52 [degF] Ronobir HOMA [facility] 09-01-2023 21:57-0400 Heart rate 82 /min Ronobir HOMA [facility] 09-01-2023 21:25-0400 Mean blood pressure 68 mm[Hg] Ronobir HOMA [facility] 09-01-2023 21:25-0400 Respiratory rate 20 /min Ronobir HOMA [facility] 09-01-2023 20:25-0400 Mean blood pressure 68 mm[Hg] Ronobir HOMA [facility] 09-01-2023 20:25-0400 Respiratory rate 17 /min Ronobir HOMA [facility] 09-01-2023 19:12-0400 Mean blood pressure 84 mm[Hg] Ronobir HOMA [facility] 09-01-2023 19:12-0400 Respiratory rate 16 /min Ronobir HOMA [facility] 09-01-2023 18:58-0400 Body temperature 98.24 [degF] Ronobir HOMA [facility] 09-01-2023 18:58-0400 Heart rate 95 /min Ronobir HOMA [facility] 09-01-2023 13:59-0400 Diastolic blood pressure 72 mm[Hg] Tiffany Schmidterson [facility] 09-01-2023 13:59-0400 Heart rate 89 /min Tiffany Jansen [facility] 09-01-2023 13:59-0400 SaO2% (BldA) [Mass fraction] 95 % Tiffany Jansen [facility] 09-01-2023 13:59-0400 Systolic blood pressure 118 mm[Hg] Tiffany Jansen [facility] 08-08-2023 16:00-0400 Diastolic blood pressure 95 mm[Hg] Lawrence Elise [facility] 08-08-2023 16:00-0400 Heart rate 87 /min Lawrence Sharmae [facility] 08-08-2023 16:00-0400 Mean blood pressure 115 mm[Hg] Lawrence Arik [facility] 08-08-2023 16:00-0400 Respiratory rate 15 /min Lawrence Sharmae [facility] 08-08-2023 16:00-0400 SaO2% (BldA) [Mass fraction] 96 % Lawrence Arik [facility] 08-08-2023 16:00-0400 Systolic blood pressure 154 mm[Hg] Lawrence Arik [facility] 08-08-2023 15:00-0400 Diastolic blood pressure 96 mm[Hg] Lawrence Sharmae [facility] 08-08-2023 15:00-0400 Heart rate 90 /min Lawrence Arik [facility] 08-08-2023 15:00-0400 Respiratory rate 13 /min Lawrence Sharmae [facility] 08-08-2023 15:00-0400 SaO2% (BldA) [Mass fraction] 95 % Lawrence Sharmae [facility] 08-08-2023 15:00-0400 Systolic blood pressure 152 mm[Hg] Lawrence Elise [facility] 08-08-2023 14:27-0400 Body temperature 98.42 [degF] Lawrence Elise [facility] 08-08-2023 14:27-0400 Diastolic blood pressure 86 mm[Hg] Lawrence Elise [facility] 08-08-2023 14:27-0400 Heart rate 95 /min Lawrence Elise [facility] 08-08-2023 14:27-0400 Respiratory rate 20 /min Lawrence Elise [facility] 08-08-2023 14:27-0400 SaO2% (BldA) [Mass fraction] 94 % Lawrence Elise [facility] 08-08-2023 14:27-0400 Systolic blood pressure 130 mm[Hg] Lawrence Elise [facility] 07-21-2023 14:13-0400 Diastolic blood pressure 78 mm[Hg] Tiffany Sheila [facility] 07-21-2023 14:13-0400 Heart rate 74 /min Tiffany Sheila [facility] 07-21-2023 14:13-0400 SaO2% (BldA) [Mass fraction] 96 % Tiffany Sheila [facility] 07-21-2023 14:13-0400 Systolic blood pressure 118 mm[Hg] Tiffany Christofferson [facility] 07-10-2023 10:24-0400 Hourly Rounding Bruno CRUZ [facility] 07-10-2023 10:24-0400 Promise to Return Brunoserenity CRUZ [facility] 07-10-2023 09:00-0400 Hourly Rounding Brunoserenity HANSONSLIN [facility] 07-10-2023 09:00-0400 Promise to Return Brunoserenity HANSONSLIN [facility] 07-10-2023 08:13-0400 SaO2% (BldA) [Mass fraction] 98 % Bruno ANTHONY [facility] 07-10-2023 07:07-0400 Hourly Rounding Brunoserenity HANSONSLIN [facility] 07-10-2023 07:07-0400 Promise to Return Brunoserenity HANSONSLIN [facility] 07-10-2023 07:00-0400 Body temperature 98.24 [degF] Bruno ANTHONY [facility] 07-10-2023 07:00-0400 Diastolic blood pressure 73 mm[Hg] Bruno ANTHONY [facility] 07-10-2023 07:00-0400 Heart rate 91 /min Bruno ANTHONY [facility] 07-10-2023 07:00-0400 Mean blood pressure 85 mm[Hg] Bruno ANTHONY [facility] 07-10-2023 07:00-0400 Respiratory rate 16 /min Bruno ANTHONY [facility] 07-10-2023 07:00-0400 Systolic blood pressure 108 mm[Hg] Bruno ANTHONY [facility] 07-10-2023 04:00-0400 Body temperature 97.16 [degF] Bruno ANTHONY [facility] 07-10-2023 04:00-0400 Diastolic blood pressure 67 mm[Hg] Bruno ANTHONY [facility] 07-10-2023 04:00-0400 Heart rate 86 /min Bruno ANTHONY [facility] 07-10-2023 04:00-0400 Mean blood pressure 84 mm[Hg] Bruno ANTHONY [facility] 07-10-2023 04:00-0400 Respiratory rate 15 /min Bruno ANTHONY [facility] 07-10-2023 04:00-0400 SaO2% (BldA) [Mass fraction] 97 % Bruno ANTHONY [facility] 07-10-2023 04:00-0400 Systolic blood pressure 109 mm[Hg] Bruno ANTHONY [facility] 07-10-2023 03:30-0400 Diastolic blood pressure 55 mm[Hg] Bruno ANTHONY [facility] 07-10-2023 03:30-0400 Heart rate 84 /min Bruno ANTHONY [facility] 07-10-2023 03:30-0400 Mean blood pressure 69 mm[Hg] Bruno ANTHONY [facility] 07-10-2023 03:30-0400 Respiratory rate 17 /min Bruno ANTHONY [facility] 07-10-2023 03:30-0400 Systolic blood pressure 102 mm[Hg] Bruno ANTHONY [facility] 07-10-2023 00:00-0400 Body temperature 97.88 [degF] Bruno ANTHONY [facility] 07-09-2023 19:56-0400 Heart rate 91 /min Bruno ANTHONY [facility] 07-09-2023 19:56-0400 Respiratory rate 11 /min Bruno HANSONSLIN [facility] 07-09-2023 19:33-0400 Heart rate 93 /min Bruno HANSONSLIN [facility] 07-09-2023 19:33-0400 Respiratory rate 30 /min Bruno MEJIALIN [facility] 06-18-2023 08:06-0400 Body height 154.94 cm MD Dorie Luis Work Phone: [facility] 06-18-2023 08:06-0400 Body weight 74.84 kg MD Dorie Luis Work Phone: [facility] 05-13-2023 09:20-0400 Body height 157.48 cm Jose Cruz Other [facility] [employer] Other 05-13-2023 09:20-0400 Body mass index (BMI) [Ratio] 31.82 kg/m2 Jose Cruz Other [facility] [employer] Other 05-13-2023 09:20-0400 Body weight 78.93 kg Jose Cruz Other [employer] Other 05-13-2023 09:20-0400 Diastolic blood pressure 82 mm[Hg] Jose Cruz Other [employer] Other 05-13-2023 09:20-0400 Systolic blood pressure 130 mm[Hg] Jose Cruz Other [employer] Other 04-14-2023 16:45-0400 Body height 157.48 cm Brodie Chong Other [employer] Other 04-14-2023 16:45-0400 Body mass index (BMI) [Ratio] 32.55 kg/m2 Brodie Chong Other [employer] Other 04-14-2023 16:45-0400 Body weight 80.74 kg Brodie Chong Other [employer] Other 04-14-2023 16:45-0400 Diastolic blood pressure 80 mm[Hg] Brodie Chong Other [employer] Other 04-14-2023 16:45-0400 Systolic blood pressure 140 mm[Hg] Brodie Chong Other [facility] [employer] Other 11-25-2022 15:53-0500 Blood Pressure Location Dorie Luis [facility] 11-25-2022 15:53-0500 Diastolic blood pressure 94 mm[Hg] Dorie Luis [facility] 11-25-2022 15:53-0500 Heart rate 97 /min Dorie Fidencio [facility] 11-25-2022 15:53-0500 SaO2% (BldA) [Mass fraction] 96 % Doriehenry Luis [facility] 11-25-2022 15:53-0500 Systolic blood pressure 134 mm[Hg] Dorie Luis [facility] 10-14-2022 15:41-0500 Blood Pressure Location Dorie Luis [facility] 10-14-2022 15:41-0500 Diastolic blood pressure 84 mm[Hg] Dorie Luis [facility] 10-14-2022 15:41-0500 Heart rate 86 /min Dorie Luis [facility] 10-14-2022 15:41-0500 SaO2% (BldA) [Mass fraction] 92 % Dorie Luis [facility] 10-14-2022 15:41-0500 Systolic blood pressure 118 mm[Hg] Dorie Luis [facility] Encounters Encounter Date Encounter Type Care Provider Facility Start: 06-18-2025 ambulatory MD Dorie Luis Facil ity[facility] Start: 10-29-2024 ambulatory MD Dorie Luis Facil ity:[facility] Start: 08-14-2024 End: 08-27-2024 ambulatory Dorie Luis Facility:[id number] Start: 08-13-2024 End: 08-13-2024 ambulatory Eligio Lopez [facility] Start: 08-13-2024 Emergency department patient visit Ainsley Thornton [place] Facility:[facility] Start: 08-13-2024 End: 08-13-2024 Observation Eligio Lopez [facility] Start: 07-04-2024 End: 07-04-2024 ambulatory Amilcar Matthews [facility] Start: 07-04-2024 End: 07-04-2024 Patient encounter procedure Amilcar Matthews [facility] Start: 06-26-2024 ambulatory MD Dorie Luis Facil ity:[facility] Start: 06-12-2024 End: 06-21-2024 Pre-admission assessment Dorie Luis [facility] Start: 06-12-2024 End: 06-12-2024 ambulatory Dorie Luis Facility: [facility] Start: 05-30-2024 ambulatory Philip Mares acility:[facility] Start: 05-30-2024 End: 05-30-2024 ambulatory Amilcar Milena Byron [facility] Start: 05-30-2024 End: 05-30-2024 Patient encounter procedure Amilcar Abbott Matthews [facility] Start: 05-29-2024 End: 05-29-2024 ambulatory MD Dorie Luis Facility:[facility] Start: 05-28-2024 End: 05-28-2024 ambulatory MD Dorie Luis Facility: [facility] Start: 05-18-2024 End: 06-18-2024 ambulatory MD Dorie Luis Facility:[id number] Start: 05-15-2024 End: 05-16-2024 ambulatory Mbanefo OJUKWU [place] Start: 05-15-2024 Emergency department patient visit Dorie Luis Facility[facility] Start: 05-15-2024 End: 05-16-2024 Observation Mbanefo OJUKWU [facility] Start: 01-06-2024 End: 01-06-2024 ambulatory Tiffany Jansen [facility] Start: 01-06-2024 End: 01-06-2024 Patient encounter procedure Tiffany Jansen [facility] Start: 12-01-2023 End: 12-01-2023 ambulatory Tiffany Jansen [facility] Start: 12-01-2023 End: 12-01-2023 Patient encounter procedure Tiffany Jansen [facility] Start: 11-10-2023 ambulatory Tiffany Jansen Facility:[facility] Start: 10-31-2023 End: 10-31-2023 ambulatory Dorie Luis [facility] Start: 10-26-2023 End: 10-26-2023 ambulatory [facility] Start: 10-26-2023 End: 10-26-2023 Subsequent hospital visit by physician Bandar Castrejon MD Work Phone: [facility] Comment on above: Acute ST elevation m yocardial infarction (STEMI) (CMS/HCC) (Primary Dx); 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 (CMS/HCC) Start: 10-25-2023 End: 10-25-2023 ambulatory Tiffany Jansen [facility] Start: 10-25-2023 End: 10-25-2023 Patient encounter procedure Tfifany Jansen [facility] Start: 10-24-2023 End: 10-25-2023 ambulatory [facility] Start: 10-24-2023 End: 10-24-2023 Subsequent hospital visit by physician [facility] [facility] Comment on above: Arrived Start: 10-13-2023 End: 10-13-2023 ambulatory Tiffany Jansen [facility] Start: 10-11-2023 End: 10-11-2023 ambulatory [facility] Start: 10-11-2023 End: 10-11-2023 Office outpatient new 60 minutes Bandar Castrejon MD Work Phone: [facility] Comment on above: HTN (hypertension), benign (Primary Dx); 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 (CMS/HCC) Start: 09-29-2023 End: 09-29-2023 Lab Drop off Dorie Luis [facility] Start: 09-29-2023 End: 09-29-2023 ambulatory Dorie Luis [facility] Start: 09-13-2023 End: 09-13-2023 [facility]ulatory [facility] Start: 09-07-2023 End: 09-07[facility] Start: 09-07-[facility]23 End: 09-07-2023 Subsequent hospital visit by physician Tiffany Jansen MD Work Phone: [facility] Comment on above: CAD (coronary artery disease) (Primary Dx); Coronary artery disease; Angina pectoris, unspecified ([facility]/HCC) Start: 09-05-2023 End: 10-03-2023 ambulatory Dorie Luis Facility:[id number] Start: 09-01-2023 End: 09-02-2023 ambulatory Rosa Maria Frausto Facility[place] Start: 09-01-2023 End: 09-02-2023 Observation Alec LUTHER [facility] Start: 09-01-2023 End: 09-01-2023 ambulatory Tiffany Jansen Facility:[facility] Start: 09-01-2023 End: 09-01-2023 Patient encounter procedure Tiffany Jansen [facility] Start: 08-11-2023 End: 08-11-2023 ambulatory [facility] Start: 08-08-2023 End: 08-08-2023 Emergency department patient visit Lawrence Elise [facility] Start: 07-26-2023 End: 07-26-2023 ambulatory Jose Cruz Other [employer] Other Start: 07-26-2023 Telephone encounter Jose Cruz [facility] [employer] Start: 07-21-2023 End: 07-21-2023 ambulatory Tiffany Jansen [facility] Start: 07-21-2023 End: 07-21-2023 Patient encounter procedure Tiffany Jansen [facility] Start: 07-13-2023 End: 07-13-2023 ambulatory Dorie Luis Facility:[facility] Start: 07-11-2023 End: 07-27-2023 ambulatory Dorie Luis Facility:[id number] Start: 07-09-2023 End: 07-10-2023 Evaluation and management of inpatient Bruno CRUZ [facility] Start: 06-18-2023 End: 06-18-2023 Patient encounter procedure MD Dorie Luis Work Phone: [facility] [place] Work Phone: Start: 06-18-2023 End: 06-18-2023 ambulatory MD Dorie Luis Work Phone: [facility] Work Phone: Start: 06-17-2023 End: 06-17-2023 ambulatory Sindhu Ennis Other [employer] [facility] [employer] Other Start: 06-17-2023 Telephone encounter Sindhu Ennis [facility] [employer] Start: 05-13-2023 End: 05-13-2023 ambulatory Jose Cruz Other [employer] Other Start: 05-13-2023 Office outpatient visit 15 minutes Jose Cruz [facility] Start: 05-12-2023 (PROC) PROCEDURE Brodie Roe [facility] Start: 05-12-2023 End: 05-12-2023 ambulatory Brodie Chong Other [facility] [employer] Other Start: 04-14-2023 Office outpatient visit 25 minutes Brodie Chong [facility] Start: 04-14-2023 End: 04-14-2023 ambulatory MD Dorie Luis Work Phone: [facility] Work Phone: Start: 04-14-2023 End: 04-14-2023 Patient encounter procedure MD Dorie Luis Work Phone: [facility] Work Phone: Start: 04-07-2023 Registered Recurring MD Dorie Luis Work Phone: [facility] Start: 03-11-2023 ambulatory DORIE LUIS Facilit y:H1 Start: 02-14-2023 End: 02-15-2023 ambulatory DORIE LUIS Facility:H1 Start: 02-08-2023 End: 02-08-2023 ambulatory MD Dorie Luis Work Phone: [facility] Work Phone: Start: 02-08-2023 End: 02-08-2023 Patient encounter procedure MD Dorie Luis Work Phone: [facility] [address] Work Phone: Start: 12-07-2022 End: 12-08-2022 ambulatory DORIE LUIS Facility:H1 Start: 11-25-2022 End: 11-25-2022 Patient encounter procedure Dorie Luis [facility] Start: 11-19-2022 End: 11-19-2022 Patient encounter procedure Dorie Luis [facility] Start: 10-14-2022 End: 10-14-2022 Patient encounter procedure Dorie Luis [facility] Start: 09-27-2022 ambulatory Dorie Lusi Facility :[facility] Start: 09-27-2022 End: 09-27-2022 Patient encounter procedure Dorie Luis [facility] Start: 09-13-2022 End: 09-14-2022 ambulatory Dorie Luis Facility:[facility] Start: 09-07-2022 End: 09-08-2022 ambulatory IRENA NITIN [...] - Tdap) DTaP/Tdap/Td Vaccines (2 - Tdap) [facility] Start: 12-09-2025 Pneumococcal Vaccine : 65+ Years (3 - PPSV23 or PCV20) Pneumococcal Vaccine: 65+ Years (3 - PPSV23 or PCV20) [facility] Start: 12-09-2025 Pneumococcal Vaccine : Pediatrics (0 to 5 Years) and At-Risk Patients (6 to 64 Years) (3 - PPSV23 or PCV20) Pneumococcal Vaccine: Pediatrics (0 to 5 Years) and At-Risk Patients (6 to 64 Years) (3 - PPSV23 or PCV20) [facility] Start: 10-26-2023 End: 10-26-2023 Admission to same day surgery center 10/26/2023 1:00 PM EST - 10/26/2023 4:00 PM EST Surgery [facility] [address] [place] [address] Bandar Castrejon MD [address] [facility] [address], [address] [id number] PCI MYNOR Stent- PCI VEHICLE SERVICE AGENT RCA (64041) [87556 (CPT )] [facility] Comment on above: PCI MYNOR Stent- PCI C TO RCA (96672) [69214 (CPT )] Start: 10-26-2023 Subsequent hospital visit by physician 10/26/2023 1:00 PM EST Hospital Encounter [facility] [address] [place] [address] Bandar Castrejon MD [address] [facility] 3, [address] [id number] 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 (CMS/HCC) [facility] Comment on above: Coronary artery dise ase involving nightmute coronary artery of nightmute heart with refractory angina pectoris (CMS/HCC) Start: 07-15-2023 Influenza vaccination Influenza Vacc ine (#1) [facility] Start: 2009 Screening for malign ant neoplasm of lung Lung Cancer Screening [facility] Start: 2009 Zoster Vaccines (1 o f 2) Zoster Vaccines (1 of 2) [facility] Start: 1999 Screening for malign ant neoplasm of breast Mammogram [facility] Start: 1980 Screening for malign ant neoplasm of cervix [facility] Start: 1977 Diabetes mellitus screening Diabetes Screening [facility] Start: 1977 Hepatitis C screening Hepatitis C Sc reening [facility] Start: 1960 MMR Vaccines (1 of 1 - Standard series) MMR Vaccines (1 of 1 - Standard series) [facility] Start: 04-17-1960 COVID-19 Vaccine (#1) COVID-19 Vacci ne (#1) [facility] Start: 1959 HIV screening HIV Screening [facility] Start: 1959 Lipid panel Lipid Panel [facility] Start: 1959 Medicare Annual Wellness Visit Medicare Annual Wellness Visit (AWV) [facility] Start: 1959 Screening for malign ant neoplasm of colon [facility] End: 09-07-2023 ECG 12 Lead [facility] Service Area Work Phone: Comment on above: Once for 1 Occurrenc es starting 09/07/2023 until 09/07/2023 ECG 12 Lead ECG 12 Lead ECG Routine 10/26/2023 11:16 AM EST [facility] Service Area Work Phone: ECG 12 Lead ECG 12 Lead ECG Routine 10/26/2023 3:22 PM EST [facility] Work Phone: End: 09-07-2023 Glucose [Mass/volume] in Serum or Plasma POCT Glucose Point of Care Testing - Docked Device Routine Once (Lab) for 1 Occurrences starting 09/07/2023 until 09/07/2023 [facility] Work Phone: Comment on above: Once (Lab) for 1 Occ urrences starting 09/07/2023 until 09/07/2023 End: 09-07-2023 XR Chest 2 Views [facility] Work Phone: Comment on above: Once for 1 Occurrenc es starting 09/07/2023 until 09/07/2023 [facility] Immunizations Immunization Date Immunization Notes Care Provider Edna martino 09-29-2023 influenza, injectable, quadrivalent, preservative free Dorie Luis [facility] 10-14-2022 influenza, injectable, quadrivalent, preservative free Dorei Luis [facility] 10-14-2022 influenza virus vaccine, unspecified formulation Tiffany Jansen MD Work Phone: [facility] Work Phone: 09-15-2021 influenza virus vaccine, unspecified formulation Bruno CRUZ [facility] 12-09-2020 pneumococcal polysaccharide vaccine, 23 valent Dorie Luis [facility] 09-09-2020 influenza virus vaccine, unspecified formulation Bruno CRUZ [facility] 07-15-2014 pneumococcal conjugate vaccine, 13 valent Dorie Luis [facility] NEGATED: Highlighted row has not occurred!09-13-2022 influenza virus vaccine, unspecified formulation Dorie Luis [facility] Payers Date Payer Category Payer Self-pay [id number] 2019 Private Health Insurance [facility] DUAL COMPLETE [facility] DUAL COMPLETE [id number] 2019-Present [address] [address] [place] [address] [id number] 2017 Medicaid MEDICAID MEDICAI D [id number] 2017-Present [address] [place] [address] [id number] 2017 Private Health Insurance [id number] 1959 Medicaid [id number] 1959 Private Health Insurance [id number] 1959 Unknown [id number] 2.16.840.1.211865.3.579.2. 727 1959 Unknown [id number] 2.16.840.1.375497.3.579.2. 727 1959 Unknown [id number] 2.16.840.1.865977.3.579.2. 593 1959 Unknown [id number] 2.16.840.1.951065.3.579.2. 593 1959 Unknown [id number] 2.16.840.1.958391.3.579.2. 593 1959 Unknown [id number] 2.16.840.1.915649.3.579.2. 593 1959 Unknown [id number] 2.16.840.1.476932.3.579.2. 593 1959 Unknown [id number] 2.16.840.1.834539.3.579.2. 1244 1959 Unknown [id number] 2.16.840.1.224579.3.579.2. 1245 1959 Unknown [id number] 2.16.840.1.096281.3.579.2. 1247 1959 Unknown [id number] 2.16.840.1.724134.3.579.2. 1959 Unknown [id number] 2.16.840.1.924129.3.579.2. 72 1959 Unknown [id number] 2.16.840.1.919053.3.579.2. 1959 Unknown [id number] 2.16.840.1.668108.3.579.2. 1959 Unknown [id number] 2.16.840.1.400791.3.579.2 1959 Unknown [id number] 2.16.840.1.339788.3.579.2 1959 Unknown [id number] 2.16.840.1.059513.3.579.2 1959 Unknown [id number] 2.16.840.1.969387.3.579.2 1959 Unknown [id number] 2.16.840.1.271524.3.579.2 1959 Unknown [id number] 2.16.840.1.811077.3.579.2 1959 Unknown [id number] 2.16.840.1.415033.3.579.2 1959 Unknown [id number] 2.16.840.1.791163.3.579.2. 1959 Unknown [id number] 2.16.840.1.474476.3.579.2. 1959 Unknown [id number] 2.16.840.1.007549.3.579.2. 1959 Unknown [id number] 2.16.840.1.892265.3.579.29 Unknown [id number] 2.16.840.1.596704.3.579.2. 1959 Unknown [id number] 2.16.840.1.270055.3.579.2 1959 Unknown [id number] 2.16.840.1.725814.3.579.2. 1959 Unknown [id number] 2.16.840.1.135506.3.579.2 1959 Unknown [id number] 2.16.840.1.144802.3.579.2 1959 Unknown [id number] 2.16.840.1.185359.3.579.21245 1959 Unknown [id number] 2.16.840.1.243250.3.579.21245 1959 Unknown [id number] 2.16.840.1.905847.3.579.2 1959 Unknown [id number] 2.16.840.1.796498.3.579.2 1959 Unknown [id number] 2.16.840.1.541095.3.579.2 1959 Unknown [id number] 2.16840.1.441730.3.579.2 1959 Unknown [id number] 2.16.840.1.554128.3.579.2 1959 Unknown [id number] 2.16.840.1.812588.3.579.2 1959 Unknown [id number] 2.16.840.1.235887.3.579.2 1959 Unknown [id number] 2.16.840.1.986922.3.579.2 1959 Unknown [id number] 2.16.840.1.680341.3.579.2. 727 1959 Unknown [id number] 2.16.840.1.189688.3.579.2. 727 1959 Unknown [id number] 2.16.840.1.169554.3.579.2. 727 1959 Unknown [id number] 2.16.840.1.669539.3.579.2. 727 Unknown [id number] 2.16.840.1.888103.3.579.2. 531 Unknown [id number] 2.16.840.1.077839.3.579.2. 531 Social History Date Type Detail Facility Start: 09-13-2022 End: 07-04-2024 Tobacco smoking status Heavy tobacco smoker (finding) [facility] Comment on above: 1/2 pack or more a d ay. Tobacco smoking status Never [facility] Comment on above: 1/2 pack or more a d ay. Start: 09-07-2023 End: 10-26-2023 Sex Assigned At Female [facility] Start: 1960 Sex Assigned At Female F [facility] Start: 09-07-2023 Tobacco smoking stat us NHIS Smokes tobacco daily [facility] Work Phone: History of tobacco use Cigarette Smoker [facility] Work Phone: Start: 09-07-2023 End: 10-26-2023 Cigarettes smoked current (pack per day) - Reported 0.5 [facility] Work Phone: Start: 09-07-2023 End: 10-26-2023 Alcohol intake Ex-drinker (finding) [facility] Work Phone: Start: 1960 Sex Assigned At Not on file [facility] Work Phone: Start: 08-28-2023 End: 10-26-2023 Exposure to SARS-CoV-2 (event) Not sure [facility] Work Phone: Medical Equipment Procedure Code Equipment Code Equipment Origin al Text Equipment Identifier Dates [place], Dagmar archibald, Mr Bloom, 3.50 X 38mm - [id number] Start: 10-26-2023 Functional Status Date Assessment Result Facility 08-13-2024 Functional Status No [facility] 08-13-2024 Functional Status [facility] 07-04-2024 Functional Status N/A [facility] 05-30-2024 Functional Status No [facility] 05-15-2024 Functional Status N/A [facility] 05-15-2024 Functional Status [facility] 01-06-2024 Functional Status N/A [facility] 12-01-2023 Functional Status No [facility] 09-01-2023 Functional Status No [facility] 09-01-2023 Functional Status [facility] 09-01-2023 Functional Status No [facility] 08-08-2023 Functional Status N/A [facility] 07-21-2023 Functional Status No [facility] 07-09-2023 Functional Status No [facility] 07-09-2023 Functional Status [facility] 11-25-2022 Functional Status N/A [facility] 10-14-2022 Functional Status N/A [facility] Clinical Notes 09-13-2022 to 08-27-2024 Note Date & Type Note Facility 08-27-2024 Note Discharge Summary Admission and Discharge Information Admitting Physician - Eligio Lopez III, DO Consulting Physician - Sheila POSEY, Tiffany Archibald. [facility], XXXX Admitting Diagnoses: 1. Chest pain, 08/13/2024 Discharge Diagnoses 1. Chest pain, Chest pain 2. CAD in nightmute artery, 08/13/2024 3. HTN (hypertension), benign, 08/13/2024 4. COPD (chronic obstructive pulmonary disease), 08/13/2024 5. Anxiety and depression, 08/13/2024 6. Polyneuropathy, 08/13/2024 7. RLS (restless legs syndrome), 08/13/2024 8. 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 Per specialist, not ACS. Patient [...] Once a da (more content not included)... [facility] Comment on above: Result Comment: Elec tronically [...] with ABC's and MSP's intact. hx of FL and COPD. 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 [facility] Comment on above: Result Comment: Elec tronically Signed By: Maggie Jansen CNP\.br\Date and Time Signed: 08/13/24 12:42 EDT\.br\Electronically Co-Signed By: Eligio Lopez III, DO.br\Date and Time Co-Signed: 08/13/24 20:54 EDT 08-13-2024 Hospital Discharg e instructions Patient Education 08/13/2024 17:47:45 Nonspecific Chest Pain, Adult, Yvxr-rf-Fmjf Nonspecific Chest Pain Chest pain can be [...] Follow these instructions at home: Medicines Take eyhz-yxu-bgdepwn and prescription medicines only as told by [...] ?Eating a heart-healthy diet. A diet and livestock nutrition territory manager (dietitian) can help you to learn healthy [...] provider. Document Revised: 09/15/2023 Document Reviewed: 09/15/2023 [employer] Patient Education 2023 ATEME. 08/13/2024 17:47:42 Aspirin and Your Heart Aspirin [...] take. The two forms of aspirin are: ?Tdj-xmfxxlt-dbjybl.This type of aspirin does not have a coating and is absorbed quickly. This type of aspirin also comes in a chewable form. ?Enteric-coated. This type of aspirin has a coating that releases the medicine very slowly. Enteric-coated aspirin might cause less stomach upset than tcs-icbkgln-elyfjt aspirin. This type of aspirin should not [...] Follow these instructions at home Medicines Take wvvc-rpr-cvdfwch and prescription medicines only as told by [...] important. Where to find more information The [place] [employer] Association: www.heart.org The Centers for Disease [...] provider. Document Revised: 01/02/2022 Document Reviewed: 01/02/2022 [employer] Patient Education 2023 [employer] Follow Up Care 08/13/2024 08:49:52 With:Amilcar Matthews PA-C Address: [address] [place] [id number] [phone] When:1 to 2 weeks With:Fidencio POSEY, Dorie Jean Baptiste [facility] Address: [address] 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 She has ruled out for FL with enzymes. Her symptoms were relieved with [...] Chest pain, unspecified)Chest pain 2. CAD in nightmute artery (I25.10: Atherosclerotic heart disease of nightmute coronary artery without angina pectoris) 3. HTN [...] day (at bedtime) (more content not included)... [facility] Comment on above: Result Comment: Elec tronically [...] these instructions at home: Medicines ? Take qivy-xjn-sbfqdwu and prescription medicines only as told by [...] Eating a heart-healthy diet. A diet and livestock nutrition territory manager (dietitian) can help you to learn healthy [...] provider. Document Revised: 09/15/2023 Document Reviewed: 09/15/2023 [employer] Patient Education ? 2023 [employer] Pharmacology Aspirin and Your Heart Aspirin [...] People who h (more content not included)... [facility] 08-13-2024 Evaluation + Plan note Extrac purvi from: Title:Consult Note Author:Fe Jansen MD Date:08/13/24 63-year-old female with know n CAD, recurrent chest discomfort, multivessel PCI, hypertension, hyperlipidemia, abnormal EKG. She has ruled out for FL with enzymes. Her symptoms were relieved with [...] Chest pain, unspecified)Chest pain 2. CAD in nightmute artery (I25.10: Atherosclerotic heart disease of nightmute coronary artery without angina pectoris) 3. HTN [...] admitted for further observation -Complete troponin trend -[facility] Cardiology consult for further recommendations 2. 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 HTN (hypertension), benign [...] Date:10/03/2024 11:30:00 AM Scheduled Provider:Amilcar Matthews [facility]-C [facility]iology Follow Up (FT) Appointment Date:10/29/2024 03:30:00 PM Scheduled Provider:Dorie Luis MD Location:[facility] Appointment Type: Open Appointment Date:06/18/2025 02:30:00 PM Scheduled Provider: Location:[facility] Appointment Type: Medicare Wellness Subsequent Future Scheduled Tests Laboratory* B-Type Natriuretic Peptide 12/01/23 * Basic Metabolic Panel 12/01/23 [facility] 07-31-2024 NotePatient Education Mental and Behavioral Health [...] Lifestyle (Inserted Image. Mary (more content not included)...[facility] 05-29-2024 NotePatient Education Nutrition BMI for Adults [...] numbers. This can be done either in [place] or metric measurements. Note that charts and online BMI calculators are available to help you find your BMI quickly and easily without having to do these calculations yourself. To calculate your BMI in [place] measurements: 1. Measure your weight in [...] for Disease Control and Prevention: www.cdc.gov ? [place] Heart Association: www.heart.org ? National Heart, Lung, and Blood [place]: www.nhlbi.nih.gov Summary ? Body mass index (BMI) is a number that is calculated from a person's weight and height. ? BMI may help estimate how much of a person's weight is composed of fat. BMI can help identify those who may be at higher risk for certain medical problems. ? BMI can be measured using [place] measurements or metric measurements. ? BMI charts are used to identify whether you are underweight, normal weight, overweight, or obese. This information is not intended to replace advice given to you by your health care provider. Make sure you discuss any questions you have with your health care provider. Document Revised: 07/23/2020 Document Reviewed: 05/30/2020 [employer] Patient Education ? 2022 ATEME.[facility] 05-16-2024 Hospital Discharge instructions Patient Education 05/16/2024 12:28:59 Nonspecific Chest Pain, Adult, Trpb-cu-Cuyy Nonspecific Chest Pain Chest pain can be [...] Follow these instructions at home: Medicines Take gdsy-tgy-rgmbkxg and prescription medicines only as told by [...] ?Eating a heart-healthy diet. A diet and livestock nutrition territory manager (dietitian) can help you to learn healthy [...] provider. Document Revised: 01/14/2022 Document Reviewed: 01/14/2022 [employer] Patient Education 2022 ATEME. Follow Up Care 05/15/2024 13:15:31 With:Tiffany Jansen Address: [address] [place] [address] [facility] (1) When:06/13/2024 09:15:00 Comments:Will be seeing Amilcar EMMANUEL at this appointment With:Dorie Luis Address:Unknown When:05/28/2024 15:00:00 [facility]07-03-2024 Evaluation + Plan noteExtracted from: Title:Discharge Note Author:TARA POSEY, Ephraim Archibald ate:05/16/24 Stable Discharge To, Anticipated II - Home with responsible caregiver Discharged to - Home with family [facility] Discharge Diet(s): Low Sodium- 2000 mg (05/16/24 [...] Tiffany Jansen Within 2 to [address] [place] [id number]- [facility] (1) Additional Instructions: Call for followup appointment Dorie Luis Within 3 to 5 days Additional Instructions: Call for followup appointment Nonspecific Chest Pain, Adult, Orrl-wn-Qdwj Extracted from: Title:Consult Note Author:Sheila POSEY, Fe Chavarria Date:05/16/24 63-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 Admitted for unstable angina/hypertensive urgency. Ruled out for FL and EKG is unchanged. Feeling better now [...] artery disease) (I25.10: Atherosclerotic heart disease of nightmute coronary artery without angina pectoris) 7. History of ST elevation myocardial infarction (STEMI) (I25.2: Old myocardial infarction) 8. Tobacco dependence (F17.200: Nicotine dependence, unspecified, uncomplicated) 9. Obese (E66.9: Obesity, unspecified) 10. 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: Other detention (current) drug therapy) Orders: prasugrel, 10 mg [...] Cardiology consult pending. Ordered: Consult to Cardiology [facility] Hospital Care/Day Moderate 35 Minutes 64373 2. Dizziness (R42: Dizziness and giddiness) Secondary to uncontrolled hypertension. Resolved. Ordered: [facility] Hospital Care/Day Moderate 35 Minutes 21778 3. HTN (hypertension), benign (I10: Essential (primary) hypertension) Blood pressure well-controlled. Continue on Coreg and isosorbide-dose increased Continue on IV hydralazine as needed. Ordered: [facility] Hospital Care/Day Moderate 35 Minutes 98640 4. RLS (restless legs syndrome) (G25.81: Restless legs syndrome) On ropinirole. Ordered: [facility] Hospital Care/Day Moderate 35 Minutes 96645 5. COPD (chronic obstructive pulmonary disease) (J44.9: Chronic obstructive pulmonary disease, unspecified) Stable. On nebulizer treatments. 6. CAD (coronary artery disease) (I25.10: Atherosclerotic heart disease of nightmute coronary artery without angina pectoris) History of [...] deep vein thrombosis (DVT) prophylaxis (Z79.899: Other detention (current) drug therapy) Lovenox. Disposition: Home soon pending cardiology evaluation. I discussed the diagnosis and plan of care with the patient at the bedside. Moderate level of MDM based on addressing above issues. This documentation was transcribed using voice recognition software. Several attempts were made to ensure accuracy. However inadvertent computerized equities trader errors may be present. Ephraim Ross. Hospitalist. [...] Cardiology Initial Hospital Care/Day Moderate 55 Minutes 83002 2. Dizziness (R42: Dizziness and giddiness) Suspect secondary to uncontrolled hypertension. Will start patient on antihypertensives. Ordered: Initial Hospital Care/Day Moderate 55 Minutes 59006 3. HTN (hypertension), benign (I10: Essential (primary) hypertension) Blood pressure uncontrolled. May be contributing to above. Resume Coreg and isosorbide. Started patient on IV hydralazine. Ordered: Initial Hospital Care/Day Moderate 55 Minutes 53602 4. RLS (restless legs syndrome) (G25.81: Restless legs syndrome) On ropinirole. Ordered: Initial Hospital Care/Day Moderate 55 Minutes 38302 5. COPD (chronic obstructive pulmonary disease) (J44.9: Chronic obstructive pulmonary disease, unspecified) Stable. 6. CAD (coronary artery disease) (I25.10: Atherosclerotic heart disease of nightmute coronary artery without angina pectoris) Patient with history of STEMI status post stent times 17 July 2023. Stable. Continue on aspirin, prasugrel, Coreg and isosorbide. Ordered: Initial Hospital Care/Day Moderate 55 Minutes [id number] elevation myocardial infarction (STEMI) (I25.2: Old myocardial infarction) Historical. Continue on home medications. 8. Tobacco dependence (F17.200: Nicotine dependence, unspecified, uncomplicated) Recommend cessation. Offered patient nicotine patch that she refused. 9. Obese (E66.9: Obesity, unspecified) Recommend therapeutic lifestyle modification changes. 10. 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: Other detention (current) drug therapy) Lovenox. Disposition: The patient [...] made to ensure accuracy. However inadvertent computerized equities trader errors may be present. Ephraim Ross. Hospitalist. [...] artery disease) (I25.10: Atherosclerotic heart disease of nightmute coronary artery without angina pectoris) 7. History [...] Date:05/28/2024 03:00:00 PM Scheduled Provider:Dorie Luis MD Location:[facility] Appointment Type: Hospital Follow Up w/TCM Appointment Date:06/12/2024 11:00:00 AM Scheduled Provider: Location:[facility] Appointment Type: Medicare Wellness Subsequent Appointment Date:06/13/2024 09:15:00 AM Scheduled Provider:Amilcar Matthews PA-C [facility]iology Follow Up (FT) Future Scheduled Tests Laboratory* B-Type Natriuretic Peptide 12/01/23 * Basic Metabolic Panel 12/01/23 [facility]07-03-2024 NotePatient Education - Text Gastroenterology Nonspecific Chest [...] these instructions at home: Medicines ? Take kwnm-pir-rjxwgew and prescription medicines only as told by [...] Eating a heart-healthy diet. A diet and livestock nutrition territory manager (dietitian) can help you to learn healthy [...] provider. Document Revised: 01/14/2022 Document Reviewed: 01/14/2022 [employer] Patient Education ? 2022 ATEME.[facility] 05-16-2024 NoteDischarge Summary Admission and Discharge Information Admitting Physician - Ephraim ROSS MD Consulting Physician - [facility], XXXX Admitting Diagnoses: Discharge Order Date [...] of breath. She was subsequently admitted to [facility] with dizziness andchest pain secondary to uncontrolled hypertension to rule out acute coronary syndrome. Acute coronary syndrome was ruled out with negative serial cardiac enzymes. Blood pressure was better controlledwith increasing Coreg to 6.25 mg twice daily and Imdur to 30 mg twice daily. She was seen in consultation by the counter clerk tractor parts. Patient had ran out of her home [...] care physician accordingly as well as the counter clerk tractor parts. Services Consulted - Completed -- 05/15/24 16:37:56 [...] caregiver Discharged to - Home with family [facility] Discharge Diet Discharge Diet(s): Low Sodium- 2000 [...] 4 weeks Kaelyn Rodriguez (more content not included)...[facility] HospitalComment on above:Result Comment: Electronically Signed By: TARA POSEY, Marianoanefo\.br\Date and Time Signed: 05/16/24 12:36 [id number] NoteConsultation Note Chief Complaint chest pressure/pain this AM. Reason for Consultation Chest pressure History of Present Illness 63-year-old female with history of CAD, prior STEMI, multivessel PCI, VEHICLE SERVICE AGENT of the RCA status post VEHICLE SERVICE AGENT intervention. Chronic chest pain syndrome on chronic [...] for unstable angina/hypertensive urgency. Ruled out for FL and EKG is unchanged. Feeling better now [...] artery disease) (I25.10: Atherosclerotic heart disease of nightm[place] coronary artery without angina pectoris) 7. History of ST elevation myocardial infarction (STEMI) (I25.2: Old myocardial infarction) 8. Tobacco dependence (F17.200: Nicotine dependence, unspecified, uncomplicated) 9. Obese (E66.9: Obesity, unspecified) 10. 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: Other extermination supervisor (current) drug therapy) Orders: prasugrel, 10 mg [...] 1 tab(s), Oral, (more content not included)... [facility]Comment [facility] above:Result Comment: Electronically Signed By: Sheila POSEY, Tifafny Chavarria\.br\Date and Time Signed: 05/16/24 12:24 [id number] NoteProgress Note-Physician Assessment/Plan 63-year-old female cigarette smoker [...] Cardiology consult pending. Ordered: Consult to Cardiology [facility] Hospital Care/Day Moderate 35 Minutes 78205 2. Dizziness (R42: Dizziness and giddiness) Secondary to uncontrolled hypertension. Resolved. Ordered: [facility] Hospital Care/Day Moderate 35 Minutes 57578 3. HTN (hypertension), benign (I10: Essential (primary) hypertension) Blood pressure well-controlled. Continue on Coreg and isosorbide-dose increased Continue on IV hydralazine as needed. Ordered: [facility] Hospital Care/Day Moderate 35 Minutes 36575 4. RLS (restless legs syndrome) (G25.81: Restless legs syndrome) On ropinirole. Ordered: [facility] Hospital Care/Day Moderate 35 Minutes 05970 5. COPD (chronic obstructive pulmonary disease) (J44.9: Chronic obstructive pulmonary disease, unspecified) Stable. On nebulizer treatments. 6. CAD (coronary artery disease) (I25.10: Atherosclerotic heart disease of nightmute coronary artery without angina pectoris) History of [...] deep vein thrombosis (DVT) prophylaxis (Z79.899: Other detention (current) drug therapy) Lovenox. Disposition: Home soon pending cardiology evaluation. I discussed the diagnosis and plan of care with the patient at the bedside. Moderate level of MDM based on addressing above issues. This documentation was transcribed using voice recognition software. Several attempts were made to ensure accuracy. However inadvertent computerized equities trader errors may be present. Ephraim Ross. Hospitalist. [...] % (05/15/24:30:00) Lymph Auto: 33.2 % (05/15/24:30:00) Meigs Auto: 9 % (05/15/24:30:00) Eos Auto: 2.6 % (05/15/24:30:00) Basophil Auto: 0.8 % (05/15/24:30:00) Neutro Absolute: 2.8 E9/L (05/15/24 13:30:00) Lymph Absolute: 1.7 E9/L (07/02/24 13:30:00) Meigs Absolute: 0.5 E9/L (05/15/24 13:30:00) Eos Absolute: 0.1 E9/L ( (more content not included)...[facility] HospitalComment on above:Result Comment: Electronically Signed By: TARA POSEY, Ephraim\.br\Date and Time Signed: 05/16/24 09:06 [id number] NoteHistory and Physical Chief Complaint pt presents [...] (05/15/24:30:00) Lymph Auto: 33.2 % (05/15/24 13:30:00) Meigs Auto: 9 % (05/15/24:30:00) Eos Auto: 2.6 % (05/15/24:30:00) Basophil Auto: 0.8 % (05/15/24:30:00) Neutro Absolute: 2.8 E9/L (05/15/24:30:00) Lymph Absolute: 1.7 E9/L (05/15/24 13:30:00) Meigs Absolute: 0.5 E9/L (05/15/24:30:00) Eos Absolute: 0.1 [...] POWERSCRIBE REPORT IMPRESSION: NO (more content not included)...[facility] HospitalComment on above:Result Comment: Electronically Signed By: TARA PSOEY, Ephraim\.br\Date and Time Signed: 05/15/24 16:09 [id number] Nurse Note* Sherry Vides RN - 10/26/2023 4:43 PM EST Patient ambulated in lyles, groin site remained stable, discharge instructions reviewed with patientand family by MALACHI kaur, peripheral IV removed, final vitals and site assessment stable, discharged via wheelchair by RN [facility]12-13-2023 Nurse Note* Sherry Vides RN - 10/26/2023 4:43 PM EST Patient ambulated in lyles, groin site remained stable, discharge instructions reviewed with patientand family by MALACHI kaur, peripheral IV removed, final vitals and site assessment stable, discharged via wheelchair by RN * Claudia Holliday RN - 10/26/2023 3:51 PM EST HOB elevated 90 degrees. Groins stable. documented in this [facility] Work Phone: 1([phone]) 525-951112-13-2023 Hospital Discharge instructions* Discharge Instructions* Claudia Holliday [...] usually within one week. documented in this [facility] Work Phone: 1([phone]) 366-885712-13-2023 Nurse Note* Claudia Holliday RN - 10/26/2023 3:51 PM EST HOB elevated 90 degrees. Groins stable. [facility] Work Phone: [phone]) 518-423512-13-2023 Note* Post-Procedure Note - Bertha Santoyo MD - 10/26/2023 1:31 PM EST Physician Transition of Care Summary Invasive Cardiovascular Lab Procedure Date: 10/26/2023 Attending: * Bandar Castrejon - Primary Resident/Fellow/Other First Line Supervisor: Surgeon(s) and Role: Indications: Pre-op Diagnosis * 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 (CMS/HCC) [I25.112] Post-procedure diagnosis: Post-op Diagnosis * 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 (CMS/HCC) [I25.112] Procedure(s): PCI MYNOR Stent- PCI VEHICLE SERVICE AGENT RCA [phone] [id number] - ID PRQ TRLUML CORONRY CHRONIC OCCLUS REVASC ONE VSL IVUS - Coronary ID PRQ TRLUML CORONRY CHRONIC OCCLUS REVASC ONE VSL [08936] Procedure Findings: Staged PCI to VEHICLE SERVICE AGENT RCA. S/p successful PCI with 2X MYNOR 3.0X48mm , 3.5X38mm post dilated to 4.0 proximally at the ostium. Description of the Procedure: Right MEDICAL CLAIMS ASSISTANT 6Fr --> 6Fr Angioseal Left MEDICAL CLAIMS ASSISTANT 6Fr --> 6Fr Angioseal Complications: None Stents/Implants: Cardiovascular Implants Stent Stent, Dagmar Xd, Us, 3.00 X 48mm - [id number] - Implanted Inventory item: STENT, DAGMAR XD, US, 3.00 X 48MM Model/Cat number: [id number] Digester Operator Helper: [employer] Lot number: [id number] Device identifier: [id number] As of 10/26/2023 Status: Implanted Stent, Dagmar Xd, Us, 3.50 X 38mm - [id number] - Implanted Inventory item: STENT, DAGMAR XD, US, 3.50 X 38MM Model/Cat number: [id number] Digester Operator Helper: [employer]flow Lot number: [id number] Device identifier: [id number] As of 10/26/2023 Status: Implanted Anticoagulation/Antiplatelet Plan: [...] by: Bertha Santoyo MD, 10/26/2023 1:31 PM [facility] Work Phone: [phone] 393-308312-13-2023 Miscellaneous Notes* Post-Procedure Note - Bertha Santoyo MD - 10/26/2023 1:31 PM EST Physician Transition of Care Summary Invasive Cardiovascular Lab Procedure Date: 10/26/2023 Attending: Vanessa Castrejon - Primary Resident/Fellow/Other First Line Supervisor: Surgeon(s) and Role: Indications: Pre-op Diagnosis * 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 (CMS/HCC) [I25.112] Post-procedure diagnosis: Post-op Diagnosis * 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 (CMS/HCC) [I25.112] Procedure(s): PCI MYNOR Stent- PCI VEHICLE SERVICE AGENT RCA [phone] [id number] - ID PRQ TRLUML CORONRY CHRONIC OCCLUS REVASC ONE VSL IVUS - Coronary ID PRQ TRLUML CORONRY CHRONIC OCCLUS REVASC ONE VSL [[id number]] Procedure Findings: Staged PCI to VEHICLE SERVICE AGENT RCA. S/p successful PCI with 2X MYNOR 3.0X48mm , 3.5X38mm post dilated to 4.0 proximally at the ostium. Description of the Procedure: Right MEDICAL CLAIMS ASSISTANT 6Fr --> 6Fr Angioseal Left MEDICAL CLAIMS ASSISTANT 6Fr --> 6Fr Angioseal Complications: None Stents/Implants: Cardiovascular Implants Stent StentDagmar Mr Us, 3.00 X 48mm - [id number] - Implanted Inventory item: STENT, MR HAZEL QUINONES, 3.00 X 48MM Model/Cat number: [id number] Digester Operator Helper: [employer] Lot number: [id number] Device identifier: [id number] As of 10/26/2023 Status: Implanted Stent, Mr Hazel Quinones, 3.50 X 38mm - [id number] - Implanted Inventory item: STENT, DAGMAR XMR HAZEL Archibald, 3.50 X 38MM Model/Cat number: [id number] Digester Operator Helper: [employer] Lot number: [id number] Device identifier: [id number] As of 10/26/2023 Status: Implanted Anticoagulation/Antiplatelet Plan: DAPT and statin for 1 year Estimated Blood Loss: 20 mL Anesthesia: Moderate Sedation Anesthesia Staff: No anesthesia staff entered. Any Specimen(s) Removed: Order Name Source Comment Collection Info Order Time BASIC METABOLIC PANEL Blood, Venous Collected By: Claudia Holliday RN 10/26/2023 10:38 AM Release result to [facility] Immediate CBC Blood, Venous Collected By: Claudia [...] discussed with patient. Irvin Garcia MD Interventional Forge Shop Supervisor, PGY8 documented in this [facility] Work Phone: 1([phone]) 120-737212-13-2023 Note* Pre-Sedation Documentation - Jacob Garcia MD - 10/26/2023 10:53 AM EST Sedation Plan ASA 3 Mallampati class: II. Risks, benefits, and alternatives discussed with patient. Irvin Garcia MD Interventional Forge Shop Supervisor, PGY8 [facility] Work Phone: [phone] 393-618712-13-2023 History and physical note* GAURAV Aly - [...] mg, oral, 2 times daily with meals vpbwqouaplj-dfeapslbt-bzdtcegi (Trelegy Ellipta) 100-62.5-25 mcg blister with device [...] COVID-19 what the risks are. GAURAV Aly [facility] Work Phone: [phone] 376-828712-13-2023 History and physical note* GAURAV Aly - [...] mg, oral, 2 times daily with meals lwaakwmqofb-wqwfteavy-mpzouaid (Trelegy Ellipta) 100-62.5-25 mcg blister with device [...] COVID-19 what the risks are. Noé Sanchez, JAR CAPPER-ASSEMBLY LINE INSPECTOR documented in this [facility] Work Phone: 1(881) 825-491111-28-2023 History of Present illness Narrative* Bandar Castrejon MD - 10/11/2023 3:30 PM EST Cardiology New Patient History and Physical Reason for referral: VEHICLE SERVICE AGENT HPI: Livia Jacobo is a 62 y.o. female who presents today for evaluation of VEHICLE SERVICE AGENT PCI of the RCA. Patient is a 62-year-old female history of coronary artery disease. She presented with an FL in June 2023. She was found to have total occlusion of the RCA. She underwent attempted VEHICLE SERVICE AGENT PCI in August 2023. This was unsuccessful. [...] a day with meals., Disp: , Rfl: rxaqjxbyeca-awjnxrbxm-vhlvgsco (Trelegy Ellipta) 100-62.5-25 mcg blister with device, [...] No results found for: TSH Assessment: 1. VEHICLE SERVICE AGENT of the RCA with warh-nz-gjefc collaterals Patient is on reasonable medical therapy including beta-blockade, calcium channel tamika, isosorbide and ranolazine. She is still symptomatic despite 4 antianginal medications. Patient is on aspirin, ticagrelor and high intensity statin therapy. Risks and benefits of VEHICLE SERVICE AGENT PCI discussed with the patient. Patient is agreeable to attempted VEHICLE SERVICE AGENT PCIof the RCA. This will be done in the near future. Patient will follow-up with Dr. Jansen as previously scheduled. Thank you for allowing us to participate in the care of the patient. Please contact us with any questions or concerns. Bandar Castrejon MD documented in this [facility] Work Phone: [phone]) 784-566610-25-2023 Note* Significant Event - Marianna Tong RN [...] needs. Ready to discharge to home. T [facility] Work Phone: [phone] 629-635510-25-2023 Miscellaneous Notes* Significant Event - Marianna Tong [...] Attending: * Tiffany Jansen - Primary Resident/Fellow/Other First Line Supervisor: Surgeon(s) and Role: Indications: Pre-op Diagnosis * Coronary artery disease [I25.10] Post-procedure diagnosis: Post-op Diagnosis * Coronary artery disease [I25.10] Procedure(s): PCI MYNOR Stent- Coronary 88787 - ID PRQ TRLUML CORONARY STENT W/ANGIO ONE [facility] Procedure Findings: VEHICLE SERVICE AGENT of the RCA Description of the Procedure: [...] Immediate Disposition: Refer to Dr. Blair at [facility] for VEHICLE SERVICE AGENT angioplasty. Electronically signed by: Tiffany Jansen MD, 09/07/2023 12:09 PM * Pre-Sedation Documentation - Tiffany Jansen MD - 09/07/2023 11:08 AM EDT Sedation Plan ASA 2 Mallampati class: II. Risks, benefits, and alternatives discussed with patient. documented in this [facility] Work Phone: [phone] 501-173910-25-2023 Note* Significant Event - Marianna Tong RN - 09/07/2023 2:45 PM EDT Pt ambulated down lyles to RR and voided clear/yellow urine. Bilateral groin sites remain soft and stable with no hematoma or oozing. Pt denies needs at this time. [facility] Work Phone: [phone] 214-783110-25-2023 Note* Significant Event - Marianna Tong RN - 09/07/2023 1:33 PM EDT HOB increased to 30 degrees, bilateral groin sites soft and stable with no hematoma or oozing. Pt drinking water/diet pepsi and eating turkey sandwich box. Denies further needs at this time. [facility] Work Phone: [phone] Note* Significant Event - Marianna Tong RN - 09/07/2023 1:21 PM EDT Bilateral groin sites soft and stable with no hematoma or oozing. Pt denies needs. [facility] Work Phone: [phone] 326-432710-25-2023 Note* Significant Event - Marianna Tong RN - 09/07/2023 12:39 PM EDT Bilateral groins remain soft and stable with no hematoma or oozing. Pt denies needs. [facility] Work Phone: [phone] Note* Significant Event - Marianna Tong RN - 09/07/2023 12:38 PM EDT Upon arrival to room focused assessment performed and WDL. Bilateral groins soft and stable with nohematoma or oozing. Educated Pt on current restrictions d/t bilateral groin sites arterial punctures. Daughters at bedside with her, Pt denies further needs at this time. [facility] Work Phone: [phone] 468-468610-25-2023 Note* Post-Procedure Note - Tiffany Jansen MD - 09/07/2023 12:09 PM EDT Physician Transition of Care Summary Invasive Cardiovascular Lab Procedure Date: 09/07/2023 Attending: * Tiffany Jansen - Primary Resident/Fellow/Other First Line Supervisor: Surgeon(s) and Role: Indications: Pre-op Diagnosis * Coronary artery disease [I25.10] Post-procedure diagnosis: Post-op Diagnosis * Coronary artery disease [I25.10] Procedure(s): PCI MYNOR Stent- Coronary 14675 - ID PRQ TRLUML CORONARY STENT W/ANGIO ONE ART/[facility] Procedure Findings: VEHICLE SERVICE AGENT of the RCA Description of the Procedure: [...] CPT 09/07/2023 9:33 AM Release result to [facility] Immediate BASIC METABOLIC PANEL Blood, Venous Collected By: Enma Moon CPT 09/07/2023 9:33 AM Release result to [facility] Immediate CBC Blood, Venous Collected By: Enma Moon, [facility] 09/07/2023 9:33 AM Release result to [facility] Immediate Disposition: Refer to Dr. Blair at [facility] for VEHICLE SERVICE AGENT angioplasty. Electronically signed by: Tiffany Jansen MD, 09/07/2023 12:09 PM [facility] Work Phone: [phone]) 384-960210-25-2023 Note* Pre-Sedation Documentation - Tiffany Jansen MD - 09/07/2023 11:08 AM EDT Sedation Plan ASA 2 Mallampati class: II. Risks, benefits, and alternatives discussed with patient. [facility] Work Phone: [phone] History and physical note* Tiffany Jansen MD - 09/07/2023 11:06 AM EDT History Of Present Illness Livia Jacobo is a 62 y.o. female presenting with Need for PCI [facility] for VEHICLE SERVICE AGENT.. [facility]. Past Medical History Past [...] Principal Problem: Coronary artery disease Planned PCI VEHICLE SERVICE AGENT RCA I spent 10 minutes in the professional and overall care of this patient. Tiffany Jansen MD [facility] Work Phone: [phone] History and physical note* Tiffany Jansen MD - 09/07/2023 11:06 AM EDT History Of Present Illness Livia Jacobo is a 62 y.o. female presenting with Need for PCI at [place] [address] hospital for VEHICLE SERVICE AGENT.. Recentadmit at [facility] for chest pain. Past Medical History Past [...] Principal Problem: Coronary artery disease Planned PCI VEHICLE SERVICE AGENT RCA I spent 10 minutes in the professional and overall care of this patient. Tiffany Jansen MD documented in this [facility] Work Phone: [phone]) 153-467310-20-2023 Evaluation + Plan noteExtracted from: Title:Discharge Note [...] 5 mg Tab With When Contact Information [address] [place] [address]- Additional Instructions: Cardiac Cath with Intervention scheduled at [facility]- Go to the second floor for check in, park on the second floor parking garage Arrive at 8 am, Procedure Scheduled for 10 am NPO after midnight, OK to take meds with sip of water- be sure to take asa and Brilinta! Call [facility], [place], with any questions Dorie Luis In 0 days [address] [place] [address]- Business (2) Additional Instructions: Extracted from: Title:Admission H & P Author:Alec LUTHER DO Date:09/01/23 1. Chest pain (R07.9: Chest pain, unspecified) Cycle cardiac enzymes. Nitroglycerin sublingual as needed. EKG as needed. Will consult cardiology. We will keep patient n.p.o. after midnight for possible heart catheterization. 2. Hypokalemia (E87.6: Hypokalemia) Replete and recheck with morning labs 3. CAD in nightmute artery (I25.10: Atherosclerotic heart disease of nightm[place] coronary artery without angina pectoris) We will [...] deep vein thrombosis (DVT) prophylaxis (Z79.899: Other detention (current) drug therapy) SCD, enoxaparin Orders: acetaminophen, [...] PM Scheduled Provider:Fidencio POSEY, Dorie Jean Baptiste Location:[facility] Appointment Type: ER/Hospital Follow Up Appointment Date:10/27/2023 01:45:00 PM Scheduled Provider:Sheila POSEY, Tiffany Chavarria [facility] Appointment Type:Cardiology Follow Up (FT) Appointment Date:06/13/2024 11:00:00 AM Scheduled Provider: Location:[facility] Appointment Type: Medicare Wellness Subsequent Future Scheduled Tests Radiology* BD Bone Density DEXA 09/13/22 * MA Mamm Screen w/CAD if perf and 3D Jason 09/13/22 [facility]10-20-2023 NoteAdmission and Discharge Information Admitting Physician - Alec LUTHER DO Consulting Physician - [facility] Card[facility], XXXX Admitting Diagnoses: Discharge Diagnoses 1. Chest pain, 09/01/2023 2. Hypokalemia, 09/01/2023 3. CAD in nightmute artery, 09/01/2023 4. COPD (chronic obstructive pulmonary [...] for high risk left heart cath at [facility] on 09/07/2023. She was seen by cardiology. Ranexa was implemented. She will be discharged with Ranexa. Patient was deemed appropriate discharge home per cardiology. On day of discharge shewas vitally hemodynamically clinically stable. Follow up w/Cardiology Services Consulted Consult to Cardiology (Cardiology Consult) - Ordered -- 09/01/23 21:58:00 EDT, Chest pain, Consult and Co-manage, FT Heart and Vascular Consult to In Flight Refueling Craftsman - Ordered -- 09/01/23 22:11:26 EDT Physical [...] 61.4 % Lymph Auto - 29.3 % Meigs Auto - 5.5 % Eos Auto - 3.1 % Basophil Auto - 0.7 % Neutro Absolute - 4.1 E9/L Lymph Absolute - 2.0 E9/L Meigs Absolute - 0.4 E9/L Eos Absolute - [...] Trelegy Ellipta 100 mcg-62. (more content not included)...[facility]:Result Comment: Electronically Signed By: Lisbet POSEY, Rosa Maria\.br\Date and Time Signed: 09/02/23 12:41 [id number] NoteChief Complaint chest pain nausea History of [...] negative except as noted in HPI. Scoring Taylor Fall Risk Score: 85 High (09/01/23) Physical [...] % (09/01/23) Lymph Auto: 29.3 % (09/01/23) Meigs Auto: 5.5 % (09/01/23) Eos Auto: 3.1 % (09/01/23) Basophil Auto: 0.7 % (09/01/23) Neutro Absolute: 4.1 E9/L (09/01/23) Lymph Absolute: 2 E9/L (09/01/23) Meigs Absolute: 0.4 E9/L (09/01/23) Eos Absolute: 0.2 [...] recheck with morning labs 3. CAD in nightmute artery (I25.10: Atherosclerotic heart disease of nightm[place] coronary artery without angina pectoris) We will [...] On deep vein throm (more content not included)...[facility] Comment on above:Result Comment: Electronically Signed By: Alec LUTHER DO\Date and Time Signed: 09/01/23 22:27 [id number] Hospital Discharge instructions Follow Up Care 09/01/2023 18:57:28 With:Dorie Luis Address: [address] [place] [address]- Business (2) When:09/13/2023 15:40:00 With:[facility] Address: [address] [place] [address] , [place] [address]- When: Unknown Comments:Cardiac Cath with Intervention scheduled at [facility]- Go to the second floor for check in, park on the second floor parking garageArrive at 8 am, Procedure Scheduled for 10 amNPO after midnight, OK to take meds with sip of water- be sure to take asa and Brilinta!Call [facility], [place], with any questions [facility]09-25-2023 Hospital Discharge instructions Follow Up Care 08/08/2023 14:27:10 With:Your counter clerk tractor parts Address:Unknown When:08/11/2023 16:03:52 With:Dorie Luis Address: [facility] [place] [address] Business (2) When:Within 3 Day(s) [facility]09-25-2023 Evaluation + Plan noteExtracted from: Title:ED Note [...] Date:08/11/2023 02:20:00 PM Scheduled Provider:Dorie Luis MD Location:[facility] Appointment Type: Open Appointment Date:09/01/2023 01:45:00 PM Scheduled Provider:Tiffany Jansen MD Location[facility] Appointment Type:Cardiology Follow Up (FT) Appointment Date:06/13/2024 11:00:00 AM Scheduled Provider: Location:[facility] Appointment Type: Medicare Wellness Subsequent Future Scheduled Tests Radiology* BD Bone Density DEXA 09/13/22 * MA Mamm Screen w/CAD if perf and 3D Jason 09/13/22 [facility]08-28-2023 Note [id number] 07-10-2023 Evaluation + Plan noteExtracted from: Title:Discharge [...] Luis In 0 days [address] [place] [address]- [facility] (2) Additional Instructions: Heart Attack, Qrim-cv-Ixly Extracted from: Title:Admission H & P Author:Bruno [...] a blood pressure was lower in the Director Of Research And Development but then had improved. However when evaluating [...] as she was taken urgently to the Director Of Research And Development this was not replaced. Patient was given Lasix in the Director Of Research And Development due to above. I therefore gave him [...] was 102. Avoided for carvedilol with acute FL to start in the morning with parameters. [...] Date:08/11/2023 02:20:00 PM Scheduled Provider:Dorie Luis MD Location:[facility] Appointment Type: Open Appointment Date:06/13/2024 11:00:00 AM Scheduled Provider: Location:[facility] Appointment Type: Medicare Wellness Subsequent Future Scheduled Tests Radiology* BD Bone Density DEXA 09/13/22 * MA Mamm Screen w/CAD if perf and 3D Jason 09/13/22 [facility]08-27-2023 Hospital Discharge instructions Patient Education 07/10/2023 10:05:25 Heart Attack, Yjtc-yx-Sjcx Heart Attack A heart attack occurs when blood and oxygen supply to the heart is cut off. A heart attack can cause damage to the heart that cannot be fixed. A heart attack is also called a myocardial infarction, or FL. If you think you are having a [...] Follow these instructions at home: Medicines Take idfi-qyj-fgzcsww and prescription medicines only as told by [...] provider. Document Revised: 04/22/2022 Document Reviewed: 04/22/2022 [employer] Patient Education 2022 ATEME. Follow Up Care 07/09/2023 19:33:14 With:Dorie Luis Address: [address] [place] [address]- Business (2) When: Unknown [facility]08-27-2023 NoteAdmission and Discharge Information Admit Date/Time:07/09/2023 19:33 [...] patient will additionally be counseled by the Director Of Research And Development team and in follow-up. CAD: DAPT, beta-tamika, statin, risk factor modification. Complications None Technique Following full and informed consent the patient was brought to the Director Of Research And Development where sterile prep and drape were administered in usual fashion. Anesthesia was obtained in the right wrist with lidocaine after administration of conscious sedation. A 5/6 slender Terumo sheath was placed in the right radial artery without complication. Nitroglycerin and nicardipine were given via the sheath and heparin was given intravenously. A 6 Par[place]ayan XB3.0 catheter was advanced and selectively engaged [...] Co-manage, FT Heart and Vascular Consult to [employer] ([employer]) - Ordered -- 07/09/23 21:58:49 E (more content not included)...[facility] Comment on above:Result Comment: Electronically Signed By: BILL POSEY, Rosalinda\.br\Date and Time Signed: 07/10/23 10:[id number] NoteProcedure [facility] poss PCI via right radial for posterior [...] (I21.3: ST elevation (STEMI) myocardial infarctionof unspecified site)[facility]:Result Comment: Electronically Signed By: Sheila POSEY, Tiffany Chavarria\.br\Date and Time Signed: 07/10/23 03:24 [id number] NoteBasic Information Admit Date/Time:07/09/2023 19:33 Chief Complaint [...] called she was taken urgently to the Director Of Research And Development after receiving 4782 units of heparin 180 [...] given Lasix 40 mg intravenously in the Director Of Research And Development. Patient states that her chest discomfort didnot [...] to burning with potassium (more content not included)...[facility]Result Comment: Electronically Signed By: Bruno CRUZ DO\.br\Date and Time Signed: 07/09/23 22:49 [id number] Evaluation note* Encounter Date Diagnosis Assessment Notes [...] without current pathological fracture (ICD-10 - M81.0) [employer] Other 06-01-2023 Evaluation note* Encounter Date Diagnosis [...] I will prescribe 1 week supply of Hamilton to be taken once to twice daily [...] interventional options in the future, if applicable. [employer] Other 01-12-2023 Hospital Discharge instructions Patient Education [...] height. This can be done either in [place] or metric measurements. Note that charts are available to help you find your BMI quickly and easily without having to do these calculations yourself. To calculate your BMI in [place] measurements, your health care provider will: [...] medical problems. BMI can be measured using [place] measurements or metric measurements. To interpret your [...] 07/12/2005 Document Revised: 10/13/2018 Document Reviewed: 09/13/2018 [employer] Patient Education 2020 ATEME. [facility] 10-31-2022 Evaluation + Plan note Future Scheduled Tests Radiology* BD Bone Density DEXA 09/13/22 * MA Mamm Screen w/CAD if perf and 3D Jason 09/13/22 [facility] Evaluation + Plan note Future Appointments Appointment Date:11/17/2022 04:40:00 PM Scheduled Provider:Dorie Luis MD Location:[facility] Appointment Type: Open Future Scheduled Tests Radiology* BD Bone Density DEXA 09/13/22 * MA Mamm Screen w/CAD if perf and 3D Jason 09/13/22 [facility] evaluation + Plan note Future Appointments Appointment Date:11/26/2022 01:15:00 PM Scheduled Provider: [facility] Type:EMG Bilateral Upper Extremity Appointment Date:12/02/2022 03:20:00 PM Scheduled Provider:Dorie Luis MD Location:[facility] Appointment Type: Open Future Scheduled Tests Radiology* BD Bone Density DEXA 09/13/22 * MA Mamm Screen w/CAD if perf and 3D Jason 09/13/22 [facility] Future Appointments Appointment Date:12/01/2022 03:30:00 PM Scheduled Provider: Location:[facility] Appointment Type: Medicare Wellness Initial Appointment Date:12/13/2022 01:00:00 PM Scheduled Provider: [facility] Type:EMG Bilateral Upper Extremity Appointment Date:02/07/2023 03:00:00 PM Scheduled Provider:Dorie Luis MD Location:[facility] Appointment Type: Open Future Scheduled Tests Radiology* BD Bone Density DEXA 09/13/22 * MA Mamm Screen w/CAD if perf and 3D Jason 09/13/22 [facility] Evaluation + Plan note Future Appointments Appointment Date:08/11/2023 02:20:00 PM Scheduled Provider:Dorie Luis MD Location:[facility] Appointment Type: Open Appointment Date:09/01/2023 01:45:00 PM Scheduled Provider:Tiffany Jansen MD [facility] Appointment Type:Cardiology Follow Up (FT) Appointment Date:06/13/2024 11:00:00 AM Scheduled Provider: Location:[facility] Appointment Type:FM Medicare Wellness Subsequent Future Scheduled Tests Radiology* BD Bone Density DEXA 09/13/22 * MA Mamm Screen w/CAD if perf and 3D Jason 09/13/22 [facility] Future Appointments Appointment Date:10/27/2023 01:45:00 PM Scheduled Provider:Tiffany Jansen MD Location:[facility] Appointment Type:Cardiology Follow Up (FT) Appointment Date:06/13/2024 11:00:00 AM Scheduled Provider: Location:[facility] Appointment Type: Medicare Wellness Subsequent Future Scheduled Tests Radiology* BD Bone Density DEXA 09/13/22 * MA Mamm Screen w/CAD if perf and 3D Jason 09/13/22 [facility] Future Appointments Appointment Date:10/13/2023 02:00:00 PM Scheduled Provider:Tiffany Jansen MD Location:[facility] Appointment Type:Cardiology Follow Up (FT) Appointment Date:10/27/2023 01:45:00 PM Scheduled Provider:Tiffany Jansen MD [facility] Appointment Type:Cardiology Follow Up (FT) Appointment Date:10/31/2023 04:00:00 PM Scheduled Provider:[facility] Appointment Date:06/13/2024 11:00:00 AM Scheduled Provider: Location:[facility] Appointment Type: Medicare Wellness Subsequent [facility] Future Appointments Appointment Date:10/31/2023 04:00:00 PM Scheduled Provider:Dorie Luis MD Location:[facility] Appointment Type: Open Appointment Date:11/10/2023 01:00:00 PM Scheduled Provider:Tiffany Jansen MD [facility] Appointment Type:Cardiology Follow Up (FT) Appointment Date:01/06/2024 01:15:00 PM Scheduled Provider:Tiffany Jansen MD [facility] Appointment Type:Cardiology Follow Up (FT) Appointment Date:06/13/2024 11:00:00 AM Scheduled Provider: Location:[facility] Appointment Type:FM Medicare Wellness Subsequent [facility] Future Appointments Appointment Date:01/06/2024 01:15:00 PM Scheduled Provider:Tiffany Jansen MD [facility] Appointment Type:Cardiology Follow Up (FT) Appointment Date:06/13/2024 11:00:00 AM Scheduled Provider: Location:[facility] Appointment Type:FM Medicare Wellness Subsequent Future Scheduled Tests Laboratory* B-Type Natriuretic Peptide 12/01/23 * Basic Metabolic Panel 12/01/23 [facility] Future Appointments Appointment Date:06/13/2024 11:00:00 AM Scheduled Provider: Location:[facility] Appointment Type:FM Medicare Wellness Subsequent Future Scheduled Tests Laboratory* B-Type Natriuretic Peptide 12/01/23 * Basic Metabolic Panel 12/01/23 [facility] Future Appointments Appointment Date:06/12/2024 11:00:00 AM Scheduled Provider: Location:[facility] Appointment Type:FM Medicare Wellness Subsequent Appointment Date:06/26/2024 01:20:00 PM Scheduled Provider: Location:[facility] Appointment Type:FM Lab Draw Appointment Date:06/28/2024 02:30:00 PM Scheduled Provider:Amilcar Matthews PA-C [facility] Type:Cardiology Follow Up (FT) Future Scheduled Tests Laboratory* B-Type Natriuretic Peptide 12/01/23 * Basic Metabolic Panel 12/01/23 [facility] Future Appointments Appointment Date:06/26/2024 01:20:00 PM Scheduled Provider: Location:[facility] Appointment Type:FM Lab Draw Appointment Date:07/04/2024 01:00:00 PM Scheduled Provider:Amilcar Matthews PA-C [facility] Type:Cardiology Follow Up (FT) Appointment Date:10/29/2024 03:30:00 PM Scheduled Provider:Dorie Luis MD Location:[facility] Appointment Type: Open Appointment Date:06/18/2025 02:30:00 PM Scheduled Provider: Location:[facility] Appointment Type: Medicare Wellness Subsequent Future Scheduled Tests Laboratory* B-Type Natriuretic Peptide 12/01/23 * Basic Metabolic Panel 12/01/23 [facility] Evaluation + Plan note Future Appointments Appointment Date:10/03/2024 11:30:00 AM Scheduled Provider:Amilcar Matthews PA-C [facility] Type:Cardiology Follow Up (FT) Appointment Date:10/29/2024 03:30:00 PM Scheduled Provider:Dorie Luis MD Location:[facility] Appointment Type: Open Appointment Date:06/18/2025 02:30:00 PM Scheduled Provider: Location:[facility] Appointment Type: Medicare Wellness Subsequent Future Scheduled Tests Laboratory* B-Type Natriuretic Peptide 12/01/23 * Basic Metabolic Panel 12/01/23 [facility] Evaludsmbx noteNo assessment information [facility] Work Phone: Evaluwjskt noteNo InformationNoozarks medical center [employer] Other Evaluation note* Diagnosis Coronary artery disease- Primary Coronary atherosclerosis of unspecified type of vessel, [place] or graft CAD (coronary artery disease) Coronary atherosclerosis of unspecified type of vessel, [place] or graft Angina pectoris, unspecified (CMS/HCC) Coronary artery disease Coronary atherosclerosis of unspecified type of vessel, [place] or graft documented in this encounter [facility] Work Phone: Evaluation note* Diagnosis HTN (hypertension), benign- Primary Essential hypertension, benign 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 (CMS/HCC) documented in this encounter [facility] Work Phone: Evaluation note* Diagnosis Coronary artery disease- Primary Coronary atherosclerosis of unspecified type of vessel, [place] or graft 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 (CMS/HCC) Acute ST elevation myocardial infarction (STEMI) (CMS/HCC) 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 (CMS/HCC) documented in this encounter [facility] Work Phone: History general Narrative - Reported* Type Description Date Medical History hypertension, benign Medical History chronic depression Medical History anxiety Medical History restless leg syndrome Medical History psychiatric disorder Surgical History cholecystectomy Surgical History hysterectomy Surgical History back surgery Hospitalization History See Above [employer] Other Hospital course Narrative No data available for this section [facility] Hospital Discharge instructions No data available for this section [facility] Progress note No data available for this section [facility] Rerjwm for referral (narrative) Referred by: Dorie Luis MD Referred by: Dorie Luis MD [facility] Revynz for referral (narrative)* Consultation (Routine) - Authorized Specialty Diagnoses / Procedures Referred By Ara lares Referred To Contact Cardiac Rehabilitation Diagnoses 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 (CMS/HCC) Acute ST elevation myocardial infarction (STEMI) ([facility]/HCC) Noé Sanchez, HARRIS[address]ROSIE [address] [place] [address] Referral ID Status Reason Start Date Expiration Date Visits Requested Visits Authorized [id number] Authorized Specialty Services Required 3 10/25/2024 1 1 [facility] Work Phone: Reason for visit [facility] Referral Update [employer] Other Summary Purpose Family History No Family [...] spine, unspecified scoliosis type (M41.9) Referral Organization [facility] urosurgery Referring Provider First Name Jose Referring Provider Last Name Anthony Referring Provider Specialty Neurologica l Surgery Referred Organization [facility] Referred Provider Keith Gimenez Referred Address [address] [place], [place],[address] Referred Provider Specialty ORTHOPEDIC S BRITTANYEON Referral Priority Routine General Notes Yoli Gurerier 023 12:00:50 PM >Received today and waiting [...] without current pathological fracture (M81.0) Referral Organization [facility] urosurger Referring Provider First Name Jose Referring Provider Last Name Anthony Referring Provider Specialty Neurologica l Surgery Referred Organization [facility] Ortho pedics Referred Provider Sindhu Ennis Referred Address [address] [facility],[address] Referred Provider Specialty Nurse Obi barclay Referral [...] content) DATE CREATED AUTHOR [facility]/14/2022 [facility] DATE CREATED AUTHOR AUTHOR'S ORGANIZ ATION 03/24/2023 [facility] DATE CREATED AUTHOR AUTHOR'S ORGANIZ ATION 10/14/2023 [facility] DATE CREATED AUTHOR AUTHOR'S ORGANIZ ATION 10/29/2023 [facility] DATE CREATED AUTHOR AUTHOR'S ORGANIZ ATION 10/30/2023 [facility] DATE CREATED AUTHOR AUTHOR'S ORGANIZ ATION 03/13/2024 [facility] DATE CREATED AUTHOR AUTHOR'S ORGANIZ ATION 05/16/2024 Almeida Douglas [facility] DATE CREATED AUTHOR AUTHOR'S ORGANIZ ATION 05/17/2024 Almeida Mcminn [facility] DATE CREATED AUTHOR AUTHOR'S ORGANIZ ATION 06/03/2024 [facility] DATE CREATED AUTHOR AUTHOR'S ORGANIZ ATION 06/15/2024 Almeida Douglas [facility] DATE CREATED AUTHOR AUTHOR'S ORGANIZ ATION 07/23/2024 [facility] DATE CREATED AUTHOR AUTHOR'S ORGANIZ ATION 08/13/2024 Almeida Mcminn [facility] DATE CREATED AUTHOR AUTHOR'S ORGANIZ ATION 08/14/2024 Almeida Mcminn [facility] DATE CREATED AUTHOR AUTHOR'S ORGANIZ ATION 08/31/2024 Almeida Mcminn [facility] Patient Care team informatio n (unrecognized [...] Active Elsy López MD Attending Provider Active Service Unit Operator Relationship Specialty Start Date End Date Dorie Luis MD [address] [facility] [place] [address] PCP - General Family Medicine 09/07/23 Service Unit Operator Relationship Specialty Start Date End Date Dorie Luis MD [address] [facility] [place] [address] PCP - General Family Medicine 09/07/23 Service Unit Operator Relationship Specialty Start Date End Date Dorie Luis MD [address] [facility] [place] [address] PCP - General Family Medicine 09/07/23 Service Unit Operator Relationship Specialty Start Date End Date Dorie Luis MD [address] [facility] [place] [address] PCP - General Family Medicine 09/07/23 Service Unit Operator Relationship Specialty Start Date End Date Dorie Luis MD [address] [facility] [place] [place] [address] PCP - General Family Medicine 09/07/23 Goals (unrecognized section and content) Goals may be documented in a n alternate section REASON FOR VISIT (unrecogniz ed section and content) Specialty Diagnoses / Procedures Referred By Ara t Referred To Contact Diagnoses Coronary artery disease Coronary artery disease [I25.10] Procedures ID PRQ TRLUML CORONARY STENT W/ANGIO ONE ART/BRNCH PCI MYNOR Stent- Coronary Tiffany Jansen MD [address] [place] [id number] [address] [place] [address] Referral ID Status Reason Start Date Expiration Date Visits Re quested Visits Authorized [id number] 1 1 Reason Comments Coronary Artery Disease history of [place] Hypertension Referred by Juan Pablo Lares itus for PCI VEHICLE SERVICE AGENT [facility]CA Specialty Diagnoses / Procedures Referred By Ara lares Referred To Contact Diagnoses 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 (CMS/HCC) 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 (CMS/HCC) [I25.112] Procedures PCI MYNOR Stent- PCI VEHICLE SERVICE AGENT RCA ([id number]) Bandar Castrejon MD [address] [facility] 3, [facility] [address] [place] [address] [address] [place] [address] Referral ID Status Reason Start Date Expiration Date Visits Re quested Visits Authorized [id number] 1 1 Scheduled Active and Recently Administ [...] BE BASED ON THE PRIMARY CLINICAL RECORDS. [email or web address] provides no warranty or guarantee of the accuracy or completeness of information in this document.
[2024-09-29] MEDS: ENOXAPARIN SODIUM 40 MG/0.4 ML SYRINGE SUBQ (16:35)
[2024-09-29] MEDS: OXYCODONE HCL/ACETAMINOPHEN 5MG/325MG 1 TAB PO (16:37)
[2024-09-29] MEDS: OLANZapine 5 MG TABLET PO (21:07)
[2024-09-29] MEDS: LAMOTRIGINE 25 MG TABLET 75 MG PO (21:07)
[2024-09-29] MEDS: VENLAFAXINE HCL ER 150 MG CAPSULE 300 MG PO (21:07)
[2024-09-29] MEDS: QUETIAPINE FUMARATE 100 MG TABLET PO (21:07)
[2024-09-29] MEDS: CARVEDILOL 12.5 MG TABLET PO (21:08)
[2024-09-30] VITALS (10 sets, daily range): BP systolic 137; BP diastolic 52–89; PULSE 66–99; TEMP 36.5–36.7; O2SAT 90–94
[2024-09-30] MEDS: OXYCODONE HCL/ACETAMINOPHEN 5MG/325MG 1 TAB PO (00:50)
[2024-09-30] MEDS: ALPRAZOLAM 1 MG TABLET PO ×2 (05:29→12:14)
[2024-09-30 06:24] LABS: Eosinophils Absolute Auto 0.1 10^3/uL (0.0-0.7); Eosinophils Percent Auto 2.9 % (0.9-7.0); Hemoglobin 14.8 g/dL (12.0-16.0); Immature Granulocytes Abs Auto 0.01 10^3/uL (0.00-0.03); Immature Granulocytes Pct Auto 0.2 % (0.0-0.5); Lymphocytes Absolute Auto 1.6 10^3/uL (1.2-3.8); Lymphocytes Percent Auto 38.5 % (20.5-60.0); Mean Corpuscular HGB Conc 35.2 g/dL (29.9-35.2); Mean Corpuscular Hemoglobin 33.3 pg (26.7-34.0); Mean Corpuscular Volume 94.6 fL (81.0-99.0); Mean Platelet Volume 9.5 fL (9.5-13.5); Monocytes Absolute Auto 0.5 10^3/uL (0.3-0.8); Monocytes Percent Auto 12.3 % (1.7-12.0); Neutrophils Absolute Auto 1.9 10^3/uL (1.4-6.5); Neutrophils Percent Auto 45.1 % (43.0-75.0); Platelet Count 186 10^3/uL (150-450); Red Blood Count 4.44 10^6/uL (4.20-5.40); Red Cell Distribution Width 13.1 % (11.0-15.0); White Blood Count 4.2 10^3/uL (4.0-11.0)
[2024-09-30 06:55] LABS: Anion Gap 15.3; BUN Creatinine Ratio 14.5; Calcium 8.6 mg/dL (8.5-10.1); Carbon Dioxide 23.7 mmol/L (21.0-32.0); Chloride 106 mmol/L (98-107); Chol HDL Ratio 2.1; Cholesterol 104 mg/dL (<=200); Estimated GFR (African America >60 (>=60 mL/min/1.73m^2); Estimated GFR (Non-African Ame >60 (>=60 mL/min/1.73m^2); Glucose 99 mg/dL (74-106); HDL Cholesterol 49 mg/dL (40-60); LDL Cholesterol Calculated 39.6 mg/dL; Sodium 142 mmol/L (136-145); Thyroid Stimulating Hormone 1.435 uIU/mL (0.358-3.740); Triglycerides 77 mg/dL (<=150); VLDL CHOLESTEROL 15.4 mg/dL
--- NOTE | 2024-09-30 08:45 | PM.DS1 ---
DS: Providers Provider Date of admission: 09/29/24 15:56 Primary care physician: DORIE LUIS Attending physician on admission: Liyah Ragsdale Discharging clinician: Liyah Ragsdale DS: Diagnosis Discharge Diagnosis (1) Hypertensive urgency: (2) Intractable back pain: (3) COPD (chronic obstructive pulmonary disease): Qualifiers: COPD type: unspecified COPD Qualified Code(s): J44.9 - Chronic obstructive pulmonary disease, unspecified (4) Anxiety: (5) Restless legs syndrome: (6) Hyperlipidemia: Qualifiers: Hyperlipidemia type: unspecified Qualified Code(s): E78.5 - Hyperlipidemia, unspecified (7) Arterial vascular disease: DS: Summary Hospital Course Hospital Course: Patient is a 63 y.o white female with past medical history of HTN, COPD, RLS, Bipolar disorder, insomnia, Anxiety and panic, CAD, angina, who presented to the ER with back pain and elevated BP. BP 200/100 and was given hydralazine. Because of the back pain and shortness of breath and BP reading a CTA abdomen was obtained which showed some Aortic changes, Vascular Surgeon, Dr. Moe was called from the ER physician who recommended seeing her in clinic and getting her acute elevated BP down. Patient admitted to the hospitalist for hypertensive urgency. Patient follows with a counselor supervisor who has been adjusting her BP meds. She takes prasugrel. She has chronic low back pain. She denies any trauma. Just said it has hurt on both left and right sides lower back, no radiation of pain down legs, no bowel or bladder incontinence, no fevers or chills. She did well overnight with Percocet. She will be given #6 pills to take as outpatient. She is aware of side effects of narcotics including respiratory suppression and . OARRS reviewed. I have also increased her Coreg to 12.5mg BID. I have instructed to watch for symptoms of hypotension. She has close outpatient follow up with counselor supervisor. Her potassium was low this morning 3.0. I have replaced orally with 40MeQ x 1. She should have a BMP completed this week by cardiology or by PCP. I will leave the decision for referral to Vascular up to the discretion of her PCP and Licensed [employer] after they review CTA. She may return to the hospital with any worsening signs or symptoms. Status at Discharge Functional status at discharge: independent ambulation Overall status at discharge: patient is back to baseline Time Spent with Patient Time attestation: Total time spent providing and/or coordinating discharge services: Time spent: greater than 30 minutes Exam Narrative Exam Narrative: General: Patient is alert, and oriented to person, place and time with normal affect, proper hygiene, morbid obesity Skin: no visible rashes, or ulcers Head: atraumatic, acephalic Eyes: PERRLA, no nystagmus present, conjunctiva clear, no scleral icterus Ears: normal gross auditory acuity Heart: Normal rate and rhythm, no murmurs/rubs/gallops Lungs: no audible wheezes, crackles and normal breath sounds all lung rivera Abdomen: Normal audible bowel sounds, no distension, No palpable masses, no organomegaly, no rebound/guarding/ or rigidity Musculoskeletal: no swelling bilateral lower extremities Neuro: CN II-X grossly intact Constitutional Vital Signs, click to edit/add: Last Vital Signs Temp 97.7 F 09/30/24 07:54 Pulse 81 09/30/24 08:00 Resp 16 09/30/24 07:54 BP 137/52 09/30/24 07:54 Pulse Ox 90 L 09/30/24 07:54 O2 Del Method Room Air 09/30/24 07:54 DS: Data Data Completed and Pending Labs on day of discharge: Labs from last 24 hours 09/30/24 09/30/24 09/29/24 05:54 05:44 11:52 WBC 4.2 RBC 4.44 Hgb 14.8 Hct 42.0 MCV 94.6 MCH 33.3 MCHC 35.2 RDW 13.1 Plt Count 186 MPV 9.5 Neut % (Auto) 45.1 Lymph % (Auto) 38.5 [place] % (Auto) 12.3 H Eos % (Auto) 2.9 Baso % (Auto) 1.0 Neut # (Auto) 1.9 Lymph # (Auto) 1.6 [place] # (Auto) 0.5 Eos # (Auto) 0.1 Baso # (Auto) 0.0 Abs Immat Gran (auto) 0.01 Imm/Tot Granulo (auto) 0.2 PT INR Sodium 142 Potassium 3.0 L Chloride 106 Carbon Dioxide 23.7 Anion Gap 15.3 BUN 11.0 Creatinine 0.76 Est GFR ( Amer) >60 Est GFR (Non-Af Amer) >60 BUN/Creatinine Ratio 14.5 Glucose 99 Calcium 8.6 Total Bilirubin AST ALT Alkaline Phosphatase Troponin I High Sens NT-Pro-B Natriuret Pep 1445.0 H* Total Protein Albumin Globulin Albumin/Globulin Ratio Triglycerides 77 Cholesterol 104 LDL Cholesterol, Calc 39.6 VLDL Cholesterol 15.4 HDL Cholesterol 49 Cholesterol/HDL Ratio 2.1 TSH 1.435 Urine Color Lt. yellow Urine Clarity Clear Urine pH 7.0 Ur Specific [place] <=1.005 A Urine Protein Negative Urine Glucose (UA) Negative Urine Ketones Negative Urine Occult Blood Negative Urine Nitrite Negative Urine Bilirubin Negative Urine Urobilinogen 0.2 Ur Leukocyte Esterase Negative 09/29/24 09/29/24 09/29/24 11:23 09:46 09:28 WBC 5.1 RBC 4.45 Hgb 14.7 Hct 41.9 MCV 94.2 MCH 33.0 MCHC 35.1 RDW 12.9 Plt Count 203 MPV 9.5 Neut % (Auto) 58.1 Lymph % (Auto) 29.6 [place] % (Auto) 10.1 Eos % (Auto) 1.4 Baso % (Auto) 0.6 Neut # (Auto) 3.0 Lymph # (Auto) 1.5 [place] # (Auto) 0.5 Eos # (Auto) 0.1 Baso # (Auto) 0.0 Abs Immat Gran (auto) 0.01 Imm/Tot Granulo (auto) 0.2 PT 10.5 INR 0.99 Sodium 142 Potassium 3.2 L Chloride 106 Carbon Dioxide 25.1 Anion Gap 14.1 BUN 8.0 Creatinine 0.73 Est GFR ( Amer) >60 Est GFR (Non-Af Amer) >60 BUN/Creatinine Ratio 11.0 Glucose 107 H Calcium 9.0 Total Bilirubin 0.5 AST 12 L ALT 11 L Alkaline Phosphatase 111 Troponin I High Sens 10.6 11.7 NT-Pro-B Natriuret Pep Total Protein 6.8 Albumin 3.3 L Globulin 3.5 Albumin/Globulin Ratio 0.9 Triglycerides Cholesterol LDL Cholesterol, Calc VLDL Cholesterol HDL Cholesterol Cholesterol/HDL Ratio TSH Urine Color Urine Clarity Urine pH Ur Specific [place] Urine Protein Urine Glucose (UA) Urine Ketones Urine Occult Blood Urine Nitrite Urine Bilirubin Urine Urobilinogen Ur Leukocyte Esterase Discharge Plan Discharge Disposition: Home, Self-Care Discharge Medications: New oxycodone-acetaminophen 5-325 mg Tablet 1 tab PO Q8H PRN (Reason: MODERATE PAIN) 2 Days Qty: 6 0RF Continued albuterol sulfate 90 mcg/actuation HFA aerosol inhaler 2 puff INHALATION Q4H PRN (Reason: shortness of breath or wheezing) alprazolam 1 mg tablet 1 mg PO QID atorvastatin 80 mg tablet 80 mg PO DAILY Breztri Aerosphere 160-9-4.8 mcg/actuation HFA aerosol inhaler 2 inh INHALATION BID isosorbide mononitrate 30 mg tablet extended release 24 hr 30 mg PO DAILY nitroglycerin 0.4 mg tablet, sublingual 0.4 mg sublingual Q5M PRN (Reason: chest pain) olanzapine 5 mg tablet 5 mg PO BEDTIME quetiapine 100 mg tablet 100 mg PO BEDTIME ropinirole 1 mg tablet 1 mg PO DAILY trazodone 100 mg tablet 300 mg PO BEDTIME PRN (Reason: sleep) venlafaxine 150 mg capsule,extended release 24hr 300 mg PO BEDTIME lamotrigine 25 mg tablet 75 mg PO BEDTIME prasugrel 10 mg tablet 10 mg PO DAILY ranolazine 500 mg tablet extended release 12 hr 500 mg PO Q12H losartan 100 mg tablet 100 mg PO DAILY quetiapine 50 mg tablet 50 mg PO BEDTIME Rx Instructions: TAKE WITH 100 MG = 150 MG Changed carvedilol 6.25 mg tablet 12.5 mg PO Q12H Qty: 0 0RF Activity: increase activity as tolerated Diet: advance to your usual diet Print Language: Mosotho Forms: Portal Instructions Follow Up Appointments: Keep Appointment with Licensed [employer] Appraiser, Dr. Cook on 10/03/24 to discuss CTA findings
[2024-09-30] MEDS: PRASUGREL HCL 10 MG TABLET PO (09:15)
[2024-09-30] MEDS: LOSARTAN POTASSIUM 50 MG TABLET 100 MG PO (09:15)
[2024-09-30] MEDS: POTASSIUM CHLORIDE 10 MEQ ER TABLET 40 MEQ PO (09:15)
[2024-09-30] MEDS: ROPINIROLE HCL 1 MG TABLET PO (09:16)
[2024-09-30] MEDS: CARVEDILOL 12.5 MG TABLET PO (09:16)
[2024-09-30] MEDS: ENOXAPARIN SODIUM 40 MG/0.4 ML SYRINGE SUBQ (09:16)
[2024-09-30] MEDS: ISOSORBIDE MONONITRATE 30 MG TAB.ER.24H PO (09:16)
[2024-09-30] MEDS: RANOLAZINE 500 MG TAB.ER.12H PO (09:16)
--- NOTE | 2024-10-01 11:50 | CM.DCFOLLOWU ---
1st attempt. No answer
--- NOTE | 2024-10-02 13:04 | CM.DCFOLLOWU ---
2nd attempt. No answer
--- NOTE | 2024-10-03 14:43 | CM.DCFOLLOWU ---
3rd attempt. No answer
== END 2024-09-30 12:30 | disposition home or self-care (01) ==
LOC: ER 14:55 → MS 16:00
PROVIDERS: Admitting Provider Family Medicine; Emergency Provider Emergency Medicine; PCP Family Medicine; Visit Provider Family Medicine
DX: I16.0 Hypertensive urgency (principal); M54.9 Dorsalgia, unspecified; J44.9 Chronic obstructive pulmonary disease, unspecified; F41.9 Anxiety disorder, unspecified; G25.81 Restless legs syndrome; E78.5 Hyperlipidemia, unspecified; I77.9 Disorder of arteries and arterioles, unspecified; R06.02 Shortness of breath; F31.9 Bipolar disorder, unspecified; G47.00 Insomnia, unspecified; I25.10 Atherosclerotic heart disease of native coronary artery without angina pectoris; F17.200 Nicotine dependence, unspecified, uncomplicated; Z79.899 Other long term (current) drug therapy
CPT/HCPCS: 36415; 71045; 74174; 80048; 80053; 80061; 81003; 83880; 84443; 84484; 85025; 85610; 93005; 94667; 94761; 96372; 96374; 96375; 96376; 99285; G0378; J0360; J1650; J2270; Q9967

== ENCOUNTER 2024-12-10 16:07 | Emergency (ER) | payer MEDICARE, MEDICAID, SELFPAY ==
[2024-12-10] VITALS (14 sets, daily range): BP systolic 133–211; BP diastolic 77–118; PULSE 65–88; TEMP 36.7; O2SAT 92–96; BMI 28.3
--- NOTE | 2024-12-10 16:15 | ECG_ITS ---
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
--- NOTE | 2024-12-10 16:15 | ED.GENADUL1 ---
HPI HPI - General Adult General Chief complaint: Shortness of Breath/Dyspnea Stated complaint: DIFF BREATHING/CP Time Seen by Provider: 12/10/24 16:11 History of Present Illness HPI narrative: 64-year-old female presents for cough and shortness of breath. 2 people that she lives with have COVID and she has been feeling this way for about 4 days. She has been coughing up some clear phlegm and has not had a fever or hemoptysis. She did not take her blood pressure medication today because she did not feel good. Related Data Home Medications ?Medication ?Instructions ?Recorded ?Confirmed albuterol sulfate 90 mcg/actuation 2 puff inhalation Q4H PRN 03/26/24 09/29/24 aerosol inhaler shortness of breath or wheezing alprazolam 1 mg tablet 1 mg PO QID 03/26/24 09/29/24 atorvastatin 80 mg tablet 80 mg PO DAILY 03/26/24 09/29/24 budesonide 160 mcg-glycopyr 9 2 inh inhalation BID 03/26/24 09/29/24 mcg-formot 4.8 mcg/actuation HFA inhaler (Breztri Aerosphere) isosorbide mononitrate 30 mg 30 mg PO DAILY 03/26/24 09/29/24 tablet,extended release 24 hr lamotrigine 25 mg tablet 75 mg PO BEDTIME 03/26/24 09/29/24 nitroglycerin 0.4 mg sublingual 0.4 mg sublingual Q5M PRN chest 03/26/24 09/29/24 tablet pain olanzapine 5 mg tablet 5 mg PO BEDTIME 03/26/24 09/29/24 quetiapine 100 mg tablet 100 mg PO BEDTIME 03/26/24 09/29/24 ropinirole 1 mg tablet 1 mg PO DAILY 03/26/24 09/29/24 trazodone 100 mg tablet 300 mg PO BEDTIME PRN sleep 03/26/24 09/29/24 venlafaxine 150 mg 300 mg PO BEDTIME 03/26/24 09/29/24 capsule,extended release 24 hr prasugrel 10 mg tablet 10 mg PO DAILY 09/29/24 09/29/24 ranolazine 500 mg tablet,extended 500 mg PO Q12H 09/29/24 09/30/24 release,12 hr losartan 100 mg tablet 100 mg PO DAILY 09/30/24 09/30/24 quetiapine 50 mg tablet 50 mg PO BEDTIME 09/30/24 09/30/24 Previous Rx's ?Medication ?Instructions ?Recorded carvedilol 6.25 mg tablet 12.5 mg (2 x 6.25 mg) PO Q12H #0 09/30/24 tabs oxycodone-acetaminophen 5 mg-325 1 tab PO Q8H PRN MODERATE PAIN 2 09/30/24 mg tablet days #6 tabs Allergies Allergy/AdvReac Type Severity Reaction Status Date / Time buspirone (From BuSpar) Allergy Severe Migraine Verified 12/10/24 16:20 Sulfa (Sulfonamide Allergy Mild Hives Verified 12/10/24 16:20 Antibiotics) pregabalin (From Lyrica) AdvReac Severe Confusion Verified 12/10/24 16:20 bacitracin AdvReac Unknown Unknown Verified 12/10/24 16:20 Opioid HPI Opioid Management Most Recent Opioid Data: Last Pain Scale 6 09/30/24 00:50 09/30/24 Last ORT Total Score 1 09/29/24 16:07 09/29/24 Last ORT Risk Category Low Risk 09/29/24 16:07 09/29/24 Review of Systems ROS Narrative A ten point review of systems is negative except as noted above. PFSH PFSH Medical History Hyperlipidemia ?E78.5 - Hyperlipidemia, unspecified (ICD-10) Restless legs syndrome ?G25.81 - Restless legs syndrome (ICD-10) Panic attack ?F41.0 - Panic disorder [episodic paroxysmal anxiety] (ICD-10) Panic attack ?F41.0 - Panic disorder [episodic paroxysmal anxiety] (ICD-10) Neuropathy ?G62.9 - Polyneuropathy, unspecified (ICD-10) COPD (chronic obstructive pulmonary disease) ?J44.9 - Chronic obstructive pulmonary disease, unspecified (ICD-10) Anxiety ?F41.9 - Anxiety disorder, unspecified (ICD-10) Hypertension ?I10 - Essential (primary) hypertension (ICD-10) Surgical History H/O: hysterectomy ?Z90.710 - Acquired absence of both cervix and uterus (ICD-10) History of lumbar fusion ?Z98.1 - Arthrodesis status (ICD-10) H/O heart artery stent ?Z95.5 - Presence of coronary angioplasty implant and graft (ICD-10) History of cholecystectomy ?Z90.49 - Acquired absence of other specified parts of digestive tract (ICD-10) Family History (Updated 09/29/24 @ 16:29 by Tiny Patel) Mother Family history of cancer Family history of diabetes mellitus Father Family history of diabetes mellitus Family history of hypertension Family history of myocardial infarction Social History (Updated 09/29/24 @ 16:30 by Tiny Patel) Within the past year, how often did you have a drink containing alcohol: never Within the past year, how often did you have six or more drinks on one occasion: never Score interpretation: A score less than 3 is consistent with normal alcohol consumption. Smoking status: Current every day smoker Non-prescribed substance use: denies use Highest level of school completed/degree received: Associate degree: academic program Are you now , , , , never or living with a partner: In a typical week, how many times do you talk on the telephone with family, friends, or neighbors: 3 or more times per week How often do you get together with friends or relatives: 3 or more times per week How often do you attend jehovah's witness or hindu services: never Do you belong to any clubs or organizations such as jehovah's witness groups unions, fraternal or athletic groups, or school groups: no Total score: 1 Score interpretation: A score of less than or equal to 1 indicates the most socially isolated. Little interest or pleasure in doing things: not at all Feeling down, depressed, or hopeless: not at all Feel stressed/tense/nervous/anxious/difficulty sleeping: to some extent Exam Narrative Exam Narrative: Nurses note and vital signs reviewed and patient is not hypoxic. General: The patient appears well and in no apparent distress. Patient is resting comfortably on cart. Skin: Warm, dry, no pallor noted. There is no rash noted. Head: Normocephalic, atraumatic Eye: Normal conjunctiva, no drainage Ears, Nose, Mouth, and Throat: oral mucosa is moist. Nares patent. Cardiovascular: Regular Rate and Rhythm Respiratory: Patient is in no distress, no accessory muscle use, lungs are clear to auscultation, no wheezing, rales or rhonchi Back: non-tender GI: Soft and nontender Musculoskeletal: The patient has no evidence of calf tenderness, symmetrical pulses noted bilaterally Neurological: A&O, normal speech Psychiatric: Cooperative Constitutional Vital Signs, click to edit/add: Last Vital Signs Temp 98.1 F 12/10/24 16:09 Pulse 84 12/10/24 16:09 Resp 18 12/10/24 16:09 BP 210/118 H 12/10/24 16:09 Pulse Ox 95 12/10/24 16:09 O2 Del Method Room Air 12/10/24 16:09 Course Vital Signs Vital signs: Vital Signs Temperature 98.1 F 12/10/24 16:09 Pulse Rate 84 12/10/24 16:09 Respiratory Rate 18 12/10/24 16:09 Blood Pressure 210/118 H 12/10/24 16:09 Pulse Oximetry 95 12/10/24 16:09 Oxygen Delivery Method Room Air 12/10/24 16:09 Temperature 98.1 F 12/10/24 16:09 Pulse Rate 84 12/10/24 16:09 Respiratory Rate 18 12/10/24 16:09 Blood Pressure 210/118 H 12/10/24 16:09 Pulse Oximetry 95 12/10/24 16:09 Oxygen Delivery Method Room Air 12/10/24 16:09 Medical Decision Making MDM Narrative Medical decision making narrative: COVID test is positive and patient was informed. O2 sats are appropriate and she does not have a fever here. Chest x-ray report reviewed and I do not feel that an antibiotic is indicated. She was instructed to take her blood pressure medication when she gets home, she has not taken any today. Treatment diagnosis and follow-up were discussed with the patient Differential Diagnosis Differential Diagnosis: COVID, influenza, pneumonia Lab Data Lab results reviewed: Yes I reviewed the patient's lab results Labs: Lab Results 12/10/24 12/10/24 Range/Units 16:15 16:22 WBC 3.7 L (4.0-11.0) 10^3/uL RBC 4.78 (4.20-5.40) 10^6/uL Hgb 16.0 (12.0-16.0) g/dL Hct 45.2 (36.0-48.0) % MCV 94.6 (81.0-99.0) fL MCH 33.5 (26.7-34.0) pg MCHC 35.4 H (29.9-35.2) g/dL RDW 12.4 (11.0-15.0) % Plt Count 168 (150-450) 10^3/uL MPV 9.5 (9.5-13.5) fL Neut % (Auto) 55.2 (43.0-75.0) % Lymph % (Auto) 32.8 (20.5-60.0) % [place] % (Auto) 9.6 (1.7-12.0) % Eos % (Auto) 0.8 L (0.9-7.0) % Baso % (Auto) 1.1 (0.2-2.0) % Neut # (Auto) 2.0 (1.4-6.5) 10^3/uL Lymph # (Auto) 1.2 (1.2-3.8) 10^3/uL [place] # (Auto) 0.4 (0.3-0.8) 10^3/uL Eos # (Auto) 0.0 (0.0-0.7) 10^3/uL Baso # (Auto) 0.0 (0.0-0.1) 10^3/uL Abs Immat Gran (auto) 0.02 (0.00-0.03) 10^3/uL Imm/Tot Granulo (auto) 0.5 (0.0-0.5) % Sodium 137 (136-145) mmol/L Potassium 3.4 L (3.5-5.1) mmol/L Chloride 101 (98-107) mmol/L Carbon Dioxide 24.1 (21.0-32.0) mmol/L Anion Gap 15.3 BUN 9.0 (7.0-18.0) mg/dL Creatinine 0.73 (0.55-1.02) mg/dL Est GFR ( Amer) >60 (>=60 mL/min/1.73m^2) Est GFR (Non-Af Amer) >60 (>=60 mL/min/1.73m^2) BUN/Creatinine Ratio 12.3 Glucose 87 (74-106) mg/dL Calcium 8.6 (8.5-10.1) mg/dL Influenza Type A Ag Negative Influenza Type B Ag Negative SARS-CoV-2 Ag (CV2AG) Positive A (NEGATIVE) Imaging Data Chest x-ray: Radiologist's impression: ITS Impressions Chest X-Ray 12/10/24 16:40 IMPRESSION: Small bilateral pleural effusions with hazy left basilar opacity. Electronically authenticated by: JACOB HUMPHREY Date: 12/10/2024 17:24 Discharge Plan Discharge Chief Complaint: Shortness of Breath/Dyspnea Clinical Impression: COVID-19 Patient Disposition: Home, Self-Care Time of Disposition Decision: 17:35 Condition: Good Mode of Transportation: Private Vehicle Prescriptions / Home Meds: No Action albuterol sulfate 90 mcg/actuation HFA aerosol inhaler 2 puff INHALATION Q4H PRN (Reason: shortness of breath or wheezing) alprazolam 1 mg tablet 1 mg PO QID atorvastatin 80 mg tablet 80 mg PO DAILY Breztri Aerosphere 160-9-4.8 mcg/actuation HFA aerosol inhaler 2 inh INHALATION BID isosorbide mononitrate 30 mg tablet extended release 24 hr 30 mg PO DAILY nitroglycerin 0.4 mg tablet, sublingual 0.4 mg sublingual Q5M PRN (Reason: chest pain) olanzapine 5 mg tablet 5 mg PO BEDTIME quetiapine 100 mg tablet 100 mg PO BEDTIME ropinirole 1 mg tablet 1 mg PO DAILY trazodone 100 mg tablet 300 mg PO BEDTIME PRN (Reason: sleep) venlafaxine 150 mg capsule,extended release 24hr 300 mg PO BEDTIME lamotrigine 25 mg tablet 75 mg PO BEDTIME prasugrel 10 mg tablet 10 mg PO DAILY ranolazine 500 mg tablet extended release 12 hr 500 mg PO Q12H losartan 100 mg tablet 100 mg PO DAILY quetiapine 50 mg tablet 50 mg PO BEDTIME Rx Instructions: TAKE WITH 100 MG = 150 MG oxycodone-acetaminophen 5-325 mg Tablet 1 tab PO Q8H PRN (Reason: MODERATE PAIN) 2 Days Qty: 6 0RF carvedilol 6.25 mg tablet 12.5 mg PO Q12H Qty: 0 0RF Print Language: Occitan Instructions: COVID-19 (Coronavirus Disease 2019) (ED), COVID-19: Slow the Coronavirus Spread (ED), Face Coverings (Masks) and COVID-19 (ED), How to Recover from COVID-19 at Home (ED) Additional Instructions: Please take your blood pressure medication when you get home. Referrals: DORIE LUIS [Primary Care Provider] - 1 week
[2024-12-10 16:39] LABS: Anion Gap 15.3; BUN Creatinine Ratio 12.3; Basophils Percent Auto 1.1 % (0.2-2.0); Calcium 8.6 mg/dL (8.5-10.1); Carbon Dioxide 24.1 mmol/L (21.0-32.0); Chloride 101 mmol/L (98-107); Eosinophils Percent Auto 0.8 % (0.9-7.0); Estimated GFR (African America >60 (>=60 mL/min/1.73m^2); Estimated GFR (Non-African Ame >60 (>=60 mL/min/1.73m^2); Glucose 87 mg/dL (74-106); Hematocrit 45.2 % (36.0-48.0); Immature Granulocytes Abs Auto 0.02 10^3/uL (0.00-0.03); Immature Granulocytes Pct Auto 0.5 % (0.0-0.5); Lymphocytes Absolute Auto 1.2 10^3/uL (1.2-3.8); Lymphocytes Percent Auto 32.8 % (20.5-60.0); Mean Corpuscular HGB Conc 35.4 g/dL (29.9-35.2); Mean Corpuscular Hemoglobin 33.5 pg (26.7-34.0); Mean Corpuscular Volume 94.6 fL (81.0-99.0); Mean Platelet Volume 9.5 fL (9.5-13.5); Monocytes Absolute Auto 0.4 10^3/uL (0.3-0.8); Monocytes Percent Auto 9.6 % (1.7-12.0); Neutrophils Percent Auto 55.2 % (43.0-75.0); Platelet Count 168 10^3/uL (150-450); Potassium 3.4 mmol/L (3.5-5.1); Red Blood Count 4.78 10^6/uL (4.20-5.40); Red Cell Distribution Width 12.4 % (11.0-15.0); Sodium 137 mmol/L (136-145); White Blood Count 3.7 10^3/uL (4.0-11.0)
--- NOTE | 2024-12-10 16:40 | XR_ITS ---
The [address] [address] Patient Name: ELLA JACOBO MRN: [id number] date: 1960 Sex: F Assigned Patient Location: ER Current Patient Location: ED.MAIN Accession/Order Number: [id number] Exam Date: 12/10/2024 16:37 Report Date: 12/10/2024 17:24 At the request of: ANN OMER Procedure: XR chest 1V EXAM: XR chest 1V HISTORY: SOB COMPARISON: Chest radiograph 09/29/2024. TECHNIQUE: AP portable upright view of the chest. FINDINGS: Hazy left basilar opacity. Small bilateral pleural effusions. No pneumothorax. Prominent cardiomediastinal silhouette. No bony vascular congestion. No acute osseous or soft tissue abnormalities. XR/XR chest 1V IMPRESSION: Small bilateral pleural effusions with hazy left basilar opacity. Electronically authenticated by: JACOB HUMPHREY Date: 12/10/2024 17:24
[2024-12-10 16:44] LABS: Influenza Virus A Antigen Negative; Influenza Virus B Antigen Negative; Internal Control Within Normal Limits; SARS-CoV-2 Ag POSITIVE (NEGATIVE)
[2024-12-10] MEDS: 0.9 % SODIUM CHLORIDE 500 ML IV (17:12)
== END 2024-12-10 18:09 | disposition home or self-care (01) ==
PROVIDERS: Emergency Provider Emergency Medicine; PCP Family Medicine
DX: U07.1 COVID-19 (principal); Z90.710 Acquired absence of both cervix and uterus; Z95.5 Presence of coronary angioplasty implant and graft; Z98.1 Arthrodesis status; Z90.49 Acquired absence of other specified parts of digestive tract; F17.200 Nicotine dependence, unspecified, uncomplicated
CPT/HCPCS: 36415; 71045; 80048; 85025; 87804; 87811; 93005; 99285

== ENCOUNTER 2025-01-22 09:15 | Outpatient (OUT) | payer MEDICARE, MEDICAID, SELFPAY ==
--- NOTE | 2025-01-22 09:18 | CT_ITS ---
The [address] [address] Patient Name: ELLA JACOBO MRN: [id number] date: 1960 Sex: F Assigned Patient Location: CT Current Patient Location: CT Accession/Order Number: [id number] Exam Date: 01/22/2025 10:40 Report Date: 01/22/2025 10:54 At the request of: THERESA FUENTES DO Procedure: CT lung screening low-dose LOW-DOSE SCREENING CHEST CT WITHOUT CONTRAST COMPARISON: 12/30/2023 CLINICAL DATA: Current smoker with 43 pack year history of tobacco use. Spiral axial unenhanced low-dose images were obtained through the chest. Images were reviewed using both narrow and wide window settings. This CT exam was performed using one or more following dose reduction techniques: Automated exposure control, adjustment of the mA and/or kV according to patient size, or use of iterative reconstruction technique. The heart is within normal limits for size. No pericardial effusion is present. There is coronary artery disease. Atherosclerotic plaque is seen at the aorta and proximal great vessels. No aneurysm is present. Similar small nonpathologic mediastinal lymph nodes are noted. There is mild thoracolumbar dextroscoliotic curvature and small endplate spurs at the spine. There is still minor compression deformity at the superior aspect of L1. Scarring and/or atelectasis is visualized at the mid and lower lungs. Tiny groundglass nodular densities are again seen at the right upper lobe. No developing pulmonary nodules are identified. There is no pleural effusion or pneumothorax. Limited cuts through the upper abdomen show no contributory findings. CT/CT lung screening low-dose IMPRESSION: ATELECTASIS AND/OR SCARRING. TINY STABLE RIGHT UPPER LOBE NODULES. NO NEW NODULARITY. Lung RADS category 2 - benign Twelve-month low-dose CT follow-up suggested Impression dictated by: Ekaterina James M.D.01/22/2025 10:54 AM Dictation Location: [place] [address] Electronically authenticated by: [id number] Y Date: 01/22/2025 10:54
--- OUTSIDE RECORDS SUMMARY | 2025-01-22 09:29 | XMS_ITS | CCD ---
Author Organization [facility] Care Team Providers Care Trade Show Coordinator Name Role Phone Dorie Luis Attending Unavailable Dorie Luis Attending Unavailable Dorie Luis Primary Care Physician MD Dorie Luis Primary Care Provider MD Elsy López Attending Provider DORIE LUIS Primary Care Unavailable ZIEBLASHAWN, DR ELSY Mann Consulting Unavailable SAMSA ., [...] Consulting Unavailable DORIE LUIS Primary Care Unavailable BENEDICT, DR CHIN Admitting Unavailable BENEGEOVANNACT, DR CHIN Consulting Unavailable BENETEODORO, DR CHIN Attending Unavailable Brodie Chong Unavailable MD Jose Cruz Attending Provider Jose Cruz Unavailable Sindhu Ennis Unavailable MD Dorie Luis Primary Care Provider MD Harjeet Hernández Attending Provider Dorie Luis Primary Care Physician [phone] Dorie Luis MD Primary Care Provider BANDAR CASTREJON Attending Unavailable DORIE LUIS Primary Care Unavailable POOMLEIGHPANIT, BANDAR Salvador Referring Unavailable DORIE LUIS Primary Care Unavailable POOMLEIGHPANIT, BANDAR Salvador Admitting Unavailable POOMMIPANIT, BANDAR Salvador Attending Unavailable DORIE LUIS Primary Care Unavailable OJUKWU, Mbanefo Attending Unavailable OJUKWU, Mbanefo Admitting Unavailable [facility] Consulting Unavailable Dorie Luis Admitting Unavailable Tiffany Jansen. Attending Unavaila ble NONE, XXXX Referring Unavailable Tiffany Jansen. Admitting Unavaila ble Tiffany Jansen. Referring Unavaila ble Tiffany Jansen. Attending Unavaila ble Tiffany Jansen. Attending Unavaila ble NONE, XXXX Referring Unavailable Tiffany Jansen Attending Unavaila Dorie Sandhu Referring Unavailable Dorie Luis Attending Unavailable Dorie Luis Attending Unavailable Dorie Luis Attending Unavailable Dorie Luis Attending Unavailable Dorie Luis Admitting Unavailable Dorie Luis Attending Unavailable Dorie Luis Attending Unavailable Dorie Luis Attending Unavailable Rosalinda KHAN Attending Unavailable Tiffany Jansen. Consulting Unavaila ble Bruno CRUZ Admitting Unavailable Tiffany Jansen Consulting Unavaila ble Tiffany Jansen Consulting Unavaila ble Rosa Maria Frausto Attending Unavailable [facility] Consulting Unavailable DO Alec LUTHER Admitting UnavailLawrence Napier Attending Unavailable Tiffany Jansen. Attending Unavaila ble NONE, XXXX Referring Unavailable Tiffany Jansen Attending Unavaila ble NONE, XXXX Referring Unavailable Tiffany Jansen. Attending Unavaila ble NONE, XXXX Referring Unavailable TIFFANY JANSEN Admitting Unavailab le TIFFANY JANSEN Attending Unavailab DORIE Radford Primary Care Unavailable TIFFANY JANSEN Referring Unavailab DORIE Radford Primary Care Unavailable Ainsley Rose Attending Unavailable Eligio Lopez Admitting Unavailable Eligio Lopez Attending Unavailable Tiffany Jansen Consulting Unavaila ble Tiffany Jansen Consulting Unavaila ble Christofferson, Tiffany D. Consulting Unavaila ble [facility] Consulting Unavailable Lawrence Elise Attending Unavailable Dioni Gallardo Attending Unavailable Edmund Klein Admitting Unavailable Edmund Klein Attending Unavailable [facility] Consulting Unavailable Philip Hernández Attending Unavailab Philip García Admitting Unavailab Dorie Radford Primary Care Unavailable Dorie Luis Attending Unavailable LEATHA Matthews Admitting Unavailable LEATHA Matthews Attending Unavailable NONE, XXXX Referring Unavailable Eligio Lopez Admitting Unavailable Eligio Lopez Attending Unavailable Tiffany Jansen Consulting Unavaila Tiffany Walters Consulting Unavaila Tiffany Walters Consulting Unavaila ble [facility] Consulting Unavailable Dioni Gallardo Attending Unavailable Dorie Luis Admitting Unavailable Dorie Luis Admitting Unavailable Dorie Luis Attending Unavailable Edmund Klein Admitting Unavailable Edmund Klein Attending Unavailable [facility] Consulting Unavailable DO Alec LUTHER Attending Unavailabl shane LUTHER DO Ronobir R Admitting Unavailabl shane López Elsy Consulting Unavailable MD Elsy López Consulting Unavailable [place] Elsy Consulting Unavailable [place] Elsy Consulting Unavailable [place] Elsy Consulting Unavailable [place] Elsy Consulting Unavailable [place] Elsy Consulting Unavailable [place] Elsy Consulting Unavailable [place] Elsy Consulting Unavailable Alec LUTHER Attending Unavailable Elsy López Consulting Unavailable Ganga LUTHERr R Admitting Unavailable MD Elsy López Consulting Unavailable [place], Elsy Consulting Unavailable [place], Elsy Consulting Unavailable [place], Elsy Consulting Unavailable [place], Elsy Consulting Unavailable [place], Elsy Consulting Unavailable [place], Elsy Consulting Unavailable [place], Elsy Consulting Unavailable Dorie Luis Attending Unavailable LEATHA Matthews Attending Unavailable NONE, XXXX Referring Unavailable LEATHA Matthews Admitting Unavailable [facility] Consulting Unavailable TARA Mbanefo Admitting Unavailable Megan ROSSfo Attending Unavailable Ross, Dorie E. Admitting Unavailable Dorie Luis Attending Unavailable Dorie Luis Attending Unavailable Dorie Luis Attending Unavailable Dorie Luis Attending Unavailable Dorie Luis Attending Unavailable NONE, XXXX Referring Unavailable LEATHA Matthews Admitting Unavailable LEATHA Matthews Attending Unavailable NONE, XXXX Referring Unavailable LEATHA Matthews Attending Unavailable Kadeem Colon Attending Unavailable Dorie Luis Admitting Unavailable Dorie Luis Attending Unavailable Dorie Luis Referring Unavailable Abhi, Mohamed F. Admitting Unavailable Abhi, Mohamed F. Attending Unavailable Allergies Allergy Classification Reported Allergen(s) Allergy Type Date of Onset Reaction(s) Facility (20 sources) busPIRone; Translations: [BuSpar] Drug Allergy Migraine (disorder), Unknown (qualifier value) [facility] Repository (20 sources) Sulfonamides (Antibiotic); Translations: [sulfa drugs] Propensity to adverse reactions (disorder) Eruption of skin (disorder) [facility] Repository (20 sources) pregabalin; Translations: [pregabalin] Drug Allergy 09-06-20 23 Unknown, Other [facility] (20 sources) Sulfamethoxazole ; Translations: [sulfamethoxazol e] Drug Allergy 09-06-20 23 Unknown [facility] (20 sources) Tape 1 Drug allergy Sensitive (qualifier value) [facility] Comment on above: PAPER TAPE [place] (1 source) Adhesive agent Drug allergy (disorder) 01-28-20 20 [facility] Repository (1 source) pregabalin Drug Allergy 03-01-20 15 [facility] Rep[facility] (1 source) Sulfonamides (Antibiotic) Drug allergy (disorder) 08-28-20 14 [facility] Repository (5 sources) traMADol; Translations: [TRAMADOL] Drug Allergy 10-25-20 18 [facility] Repository (14 sources) busPIRone; Translations: [BUSPIRONE] Drug Allergy 09-06-20 23 Unknown, Headache [facility] (5 sources) Sulfacetamide / Sulfur Drug Allergy Unknown [facility] Other (9 sources) traMADol Drug Allergy 10-25-20 18 Unknown [facility] Other (20 sources) Nicotine; Translations: [nicotine] Drug Allergy 09-06-20 Eruption of skin (disorder), Unknown, Rash [facility] (8 sources) Sulfonamides (Antibiotic); Translations: [SULFA (SULFONAMIDE ANTIBIOTICS)] Drug Intolerance 10-25-20 18 Unknown [facility] Work Phone: (8 sources) Adhesive Tape-Silicones; Translations: [ADHESIVE TAPE-SILICONES] Drug Allergy 10-05-20 Other [facility] (14 sources) Adhesive Tape; Translations: [Tape] Propensity to adverse reactions (disorder) [facility] Repository (1 source) busPIRone Drug Allergy 05-13-20 [facility] Repository (1 source) pregabalin Drug Allergy 05-13-20 [facility] Repository (1 source) Sulfacetamide Drug Allergy 05-13-20 [facility] Repository (1 source) Sulfur Drug Allergy 05-13-20 [facility] Repository (1 source) traMADol Drug Allergy 05-13-20 [facility] Repository (1 source) Unable to Assess Drug allergy (disorder) 06-18-20 [facility] Repository Medications Current Medications Medication Drug Class(es) Dates Sig (Normalized) Sig (Original) acetaminophen 325 mg oral tablet (6 sources) Start: 08-13-2024 take 2 tablets by mouth every six hours as needed for pain acetaminophen 325 mg Tab 650 mg = 2 tab(s), Oral, q6hr, PRN Pain, Refills(s) 0 Start Date: 08/13/24 Status: Ordered acetaminophen 325 mg / HYDROcodone bitartrate 5 mg oral tablet (7 sources) Opioid Agonist Start: 10-10-2024 End: 10-13-2024 [place] 325 mg-5 mg oral tablet 1 tab(s), Oral, q6hr for pain for 3 day(s), 12 tab(s), Refill(s) 0, [facility]/pharmacy #[id number], 162.5, cm, 10/10/24 13:16:00 EST, Height/Length Dosing, 77.7, kg, 10/10/24 13:16:00 EST, Weight Dosing Start Date: 11/27/24 Stop Date: 10/13/24 Status: Ordered Start: 04-14-2023 take 1-2 tablets by mouth twice daily as needed HYDROcodone-Acetaminophen 5-325 MG 1-2 tablets as needed Orally twice daily for 7 days G89.29 Chronic pain Apr, Active Start: 01-30-2019 take 1 tablet by [facility] every six hours as needed for pain acetaminophen-hydrocodone 325 mg-5 mg or al tablet 1 tab(s), Oral, q6hr as needed for pain, Refill(s) 0 Start Date: 01/30/19 Status: Ordered [id number] actuat albuterol 0.09 mg/actuat metered dose inhaler (5 sources) beta2-Adrenergic Agonist take 2 puff(s) by inhalation every four hours for wheezing albuterol 90 mcg/actuation inhaler Inhale 2 puffs every 4 hours if needed for wheezing. 0 Active Albuterol (Eqv-ProAir HFA) 90 mcg/inh inhalation aerosol (20 sources) Start: take 2 puff(s) by inhalation [...] Daily, # 90 tab(s), Refills(s) 1, Pharmacy: [facility], 155.8, cm, 05/12/23 16:06:00 EDT, Height/Length Dosing, 79.5, kg, 05/12/23 16:06:00 EDT, Weight Dosing Start Date: 05/12/23 Status: Ordered amoxicillin 500 mg oral capsule (2 sources) Penicillin-class Antibacterial Start: 05-29-2024 take 1 capsule by mouth every twelve hours amoxicillin 500 mg Cap 500 mg = 1 cap(s), Oral, q12hr, # 20 cap(s), Refills(s) 0, Pharmacy: [facility], 154, cm, 05/29/24 15:16:00 EDT, Height/Length Dosing, 74.9, kg, 05/29/24 15:16:00 EDT, Weight Dosing Start Date: 05/29/24 Status: Ordered atorvastatin 80 mg oral tablet (20 sources) HMG-CoA Reductase Inhibitor Start: 08-31-2024 take 1 tablet by mouth once daily atorvastatin 80 mg Tab 80 mg = 1 tab(s), Oral, Daily, # 30 tab(s), Refills(s) 5, Pharmacy: [facility], 154, cm, 08/13/24 9:05:00 EDT, Height/Length Dosing, 75.4, kg, 08/13/24 9:05:00 EDT, Weight Dosing Start Date: 08/31/24 Status: Ordered Start: 03-21-2024 take 1 tablet by [facility] once daily atorvastatin 80 mg Tab 80 mg = 1 tab(s), Oral, Daily, # 30 tab(s), Refills(s) 5, Pharmacy: [facility], 154, cm, 01/06/24 13:29:00 EST, Height/Length Dosing, 70.3, kg, 01/06/24 13:29:00 EST, Weight Dosing Start Date: 03/21/24 Status: Ordered Start: 09-30-2023 take 1 tablet by [facility] once daily atorvastatin 80 mg Tab 80 mg = 1 tab(s), Oral, Daily, # 90 tab(s), Refills(s) 1, [facility], 154, cm, 09/29/23 9:30:00 EST, Height/Length Dosing, 73.1, kg, 09/29/23 9:30:00 EST, Weight Dosing Start Date: 09/30/23 Status: Ordered Start: 07-10-2023 take 2 tablets by mo [facility] at bedtime atorvastatin 40 mg Tab 80 mg = 2 tab(s), Oral, Bedtime, # 30 tab(s), Refills(s) 0, Pharmacy: [facility], 154.9, cm, 07/09/23 19:44:00 EDT, Height/Length Dosing, 73, kg, 07/09/23 19:44:00 EDT, Weight Dosing Start Date: 07/10/23 Status: Ordered azithromycin 500 mg oral tablet (1 source) Macrolide Antimicrobial Start: 10-30-2024 take 1 tablet by mouth once daily azithromycin 500 mg oral tablet 500 mg = 1 tab(s), Oral, Daily, # 4 tab(s), Refills(s) 0, Pharmacy: [facility]/pharmacy #[id number], 162, cm, 10/29/24 7:47:00 EST, Height/Length Dosing, 76.9, kg, 10/29/24 11:36:00 EST, Weight Dosing Start Date: 10/30/24 Status: Ordered Start: 10-30-2024 take 1 tablet by [facility] once daily azithromycin 500 mg oral tablet 500 mg = 1 tab(s), Oral, Daily, # 4 tab(s), Refills(s) 0, Pharmacy: [facility]/pharmacy #[id number], 162, cm, 10/29/24 7:47:00 EST, Height/Length Dosing, 76.9, kg, 10/29/24 11:36:00 EST, Weight Dosing Start Date: 10/30/24 Status: Ordered baclofen 10 mg oral tablet (1 source) gamma-Aminobutyric Acid-ergic Agonist Start: 01-30-2019 take 10 mg by mouth three times daily baclofen 10 mg, Oral, TID, Refills(s) 0, Spasm Start Date: 01/30/19 Status: Ordered Breztri Aerosphere (11 sources) Start: 05-15-2024 take 2 puff(s) by [...] by mouth every twe lve hours carvedilol 12.5 mg oral tablet (20 sources) alpha-Adrenergic Tamika, beta-Adrenergic Tamika Start: 12-20-2024 take 1 tablet by mouth twice daily carvedilol 12.5 mg Tab 12.5 mg = 1 tab(s), Oral, BID, # 180 tab(s), Refills(s) 3, Pharmacy: [facility], 162, cm, 11/24/24 17:19:00 EST, Height/Length Dosing, 79.9, kg, 11/24/24 17:19:00 EST, Weight Dosing Start Date: 12/20/24 Status: Ordered Start: 10-03-2024 take 1 tablet by [facility] twice daily carvedilol 12.5 mg Tab 12.5 mg = 1 tab(s), Oral, BID, # 60 tab(s), Refills(s) 2, Pharmacy: [facility], 154, cm, 10/03/24 11:21:00 EST, Height/Length Dosing, 79, kg, 10/03/24 11:31:00 EST, Weight Dosing Start Date: 10/03/24 Status: Ordered Start: 05-16-2024 take 1 tablet by [facility] twice daily carvedilol 6.25 mg Tab 6.25 mg = 1 tab(s), Oral, BID, # 60 tab(s), Refills(s) 3, Pharmacy: [facility], 154, cm, 05/15/24 13:22:00 EDT, Height/Length Dosing, 72.2, kg, 05/15/24 13:22:00 EDT, Weight Dosing Start Date: 05/16/24 Status: Ordered Start: 12-23-2023 take 1 tablet by [facility] twice daily Coreg 3.125 mg Tab 3.125 mg = 1 tab(s), Oral, BID, # 60 tab(s), Refills(s) 3, Pharmacy: [facility], 154, cm, 12/01/23 13:52:00 EST, Height/Length Dosing, 68.6, kg, 12/01/23 14:05:00 EST, Weight Dosing Start Date: 12/23/23 Status: Ordered Start: 07-10-2023 take 1 tablet by [facility] twice daily Coreg 3.125 mg Tab 3.125 mg = 1 tab(s), Oral, BID, # 60 tab(s), Refills(s) 3, Pharmacy: [facility], 154, cm, 09/29/23 9:30:00 EST, [...] 01/30/19 Status: Ordered take 1 capsule by [facility] every twenty-four hours Neurontin 100 MG 1 capsule Orally Once a day Active Handicap Placard, 5 years. (20 sources) Start: 02-10-[address], 5 years. Handicap Placard, 5 years., See Instructions, 1 EA, 0, Handicap Placard, 5 years., Supply Start Date: 02/10/23 Status: Ordered 24 hr isosorbide mononitrate 30 mg extended release oral tablet (20 sources) Nitrate Vasodilator Start: 12-20-2024 take 1 tablet by mouth twice daily isosorbide mononitrate 30 mg ER Tab 30 mg = 1 tab(s), Oral, BID, # 180 tab(s), Refills(s) 3, Pharmacy: [facility], 162, cm, 11/24/24 17:19:00 EST, Height/Length Dosing, 79.9, kg, 11/24/24 17:19:00 EST, Weight Dosing Start Date: 12/20/24 Status: Ordered Start: 05-16-2024 End: 11-25-2024 isosorbide mononitrate 30 mg ER Tab 30 mg = 1 tab(s), Tab-ER, Oral, Start date 11/25/24 9:00:00 PM EST, 11/24/24 21:18:00 EST Start Date: 11/25/24 Stop Date: 11/25/24 Status: Completed Start: 07-21-2023 End: 07-20-2024 take 1 tablet by mouth once daily isosorbide mononitrate 30 mg ER Tab 30 mg = 1 tab(s), Oral, Daily, X 30 day(s), # 30 tab(s), Refills(s) 6, Pharmacy: [facility], 154, cm, 12/01/23 13:52:00 EST, [...] (20 sources) Angiotensin 2 Receptor Tamika Start: 08-31-2024 take 1 tablet by mouth once daily losartan 100 mg Tab 100 mg = 1 tab(s), Oral, Daily, # 30 tab(s), Refills(s) 5, Pharmacy: [facility], 154, cm, 08/13/24 9:05:00 EDT, Height/Length Dosing, 75.4, kg, 08/13/24 9:05:00 EDT, Weight Dosing Start Date: 08/31/24 Status: Ordered Start: 05-30-2024 take 1 tablet by [facility] once daily losartan 100 mg Tab 100 mg = 1 tab(s), Oral, Daily, # 30 tab(s), Refills(s) 2, Pharmacy: [facility], 154, cm, 05/30/24 10:31:00 EDT, Height/Length Dosing, 72.6, kg, 05/30/24 10:33:00 EDT, Weight Dosing Start Date: 05/30/24 Status: Ordered Start: 10-13-2023 take 1 tablet by [facility] once daily losartan 50 mg Tab 50 mg = 1 tab(s), Oral, Daily, # 90 tab(s), Refills(s) 3, Pharmacy: [facility], 154, cm, 10/13/23 14:02:00 EST, Height/Length Dosing, 72.3, kg, 10/13/23 14:02:00 EST, Weight Dosing Start Date: 10/13/23 Status: Ordered Start: 09-13-2022 take 1 tablet by [facility] once daily losartan 100 mg Tab 100 mg = 1 tab(s), Oral, Daily, # 90 tab(s), Refills(s) 1, Pharmacy: [facility], 155.8, cm, 05/12/23 16:06:00 EDT, Height/Length Dosing, 79.5, kg, 05/12/23 16:06:00 EDT, Weight Dosing Start Date: 05/12/23 Status: Ordered take 2 tablets by mo [facility] once daily losartan (Cozaar) 50 mg tablet Take 2 tablets (100 mg) by mouth once daily. 0 Active melatonin 3 mg oral tablet (1 source) Start: 01-30-2019 take 3 mg by mouth once daily at bedtime melatonin 3 mg, Oral, Once a day (at bedtime), Refills(s) 0, Sleep Start Date: 01/30/19 Status: Ordered methylPREDNISolone 4 mg oral tablet (1 source) Corticosteroid Start: 10-10-2024 End: 10-16-2024 Medrol 4 mg Tab = 1 packet(s), Oral, As Directed, as directed on package labeling, X 6 day(s), # 21 tab(s), Refills(s) 0, Pharmacy: [facility]/pharmacy #[id number], 162.5, cm, 10/10/24 13:16:00 EST, Height/Length Dosing, 77.7, kg, 10/10/24 13:16:00 EST, Weight Dosing Start Date: 10/10/24 Stop Date: 10/16/24 Status: Ordered 24 hr metoprolol succinate 25 [...] Status: Ordered nitroglycerin 0.4 mg sublingual tablet (20 sources) Nitrate Vasodilator Start: 05-16-2024 nitroglycerin 0.4 mg sublingual Tab 0.4 mg = 1 tab(s), SubLingual, q5min, PRN Chest pain, # 30 tab(s), Refills(s) 6, Pharmacy: [facility], 154, cm, 05/15/24 13:22:00 EDT, Height/Length Dosing, 72.2, kg, 05/15/24 13:22:00 EDT, Weight Dosing Start Date: 05/16/24 Status: Ordered Start: 07-10-2023 nitroglycerin 0.4 mg sublingual Tab 0.4 mg = 1 tab(s), SubLingual, q5min, PRN Chest pain, # 30 tab(s), Refills(s) 0, Pharmacy: [facility], 154.9, cm, 07/09/23 19:44:00 EDT, Height/Length Dosing, 73, kg, 07/09/23 19:44:00 EDT, Weight Dosing Start Date: 07/10/23 Status: Ordered prasugrel 10 mg oral tablet (10 sources) [id number] Platelet Inhibitor Start: 11-13-2024 take 1 tablet by mouth once daily prasugrel 10 mg Tab 10 mg = 1 tab(s), Oral, Daily, # 30 tab(s), Refills(s) 5, Pharmacy: [facility], 162, cm, 11/13/24 11:11:00 EST, Height/Length Dosing, 78.6, kg, 11/13/24 11:11:00 EST, Weight Dosing Start Date: 11/13/24 Status: Ordered Start: 08-08-2024 take 1 tablet by [facility] once daily prasugrel 10 mg Tab 10 mg = 1 tab(s), Oral, Daily, # 30 tab(s), Refills(s) 5, Pharmacy: [facility], 154, cm, 07/04/24 13:11:00 EDT, Height/Length Dosing, 75.4, kg, 07/04/24 13:11:00 EDT, Weight Dosing Start Date: 08/08/24 Status: Ordered Start: 07-04-2024 take 1 tablet by [facility] once daily prasugrel 10 mg Tab 10 mg = 1 tab(s), Oral, Daily, # 30 tab(s), Refills(s) 3, Pharmacy: [facility], 154, cm, 07/04/24 13:11:00 EDT, Height/Length [...] Weight Dosing Start Date: 12/01/23 Status: Ordered predniSONE 20 mg oral tablet (1 source) Start: 10-30-2024 take 2 tablets by mouth once daily predniSONE 20 mg Tab 40 mg = 2 tab(s), Oral, Daily, # 4 tab(s), Refills(s) 0, [id number], cm, 10/29/24 7:47:00 EST, Height/Length Dosing, 76.9, kg, 10/29/24 11:36:00 EST, Weight Dosing Start Date: 10/30/24 Status: Ordered Start: 10-30-2024 take 2 tablets by [facility] once daily predniSONE 20 mg Tab 40 mg = 2 tab(s), Oral, Daily, # 4 tab(s), Refills(s) 0, [id number], 162, cm, 10/29/24 7:47:00 EST, Height/Length Dosing, 76.9, kg, 10/29/24 11:36:00 EST, Weight Dosing Start Date: 10/30/24 Status: Ordered pregabalin 75 mg oral capsule (5 sources) Start: 02-04-2021 take 1 capsule by mouth every eight hours QUEtiapine 100 mg oral tablet (20 sources) Atypical Antipsychotic Start: 08-13-2024 quetiapine 100 mg Tab 150 mg, Oral, Bedtime, # 270 tab(s), Refills(s) 0 Start Date: 08/13/24 Status: Ordered Start: 08-13-2024 take 1 tablet by [facility] at bedtime quetiapine 100 mg Tab 100 mg = 1 tab(s), Oral, Bedtime, # 270 tab(s), Refills(s) 0 Start Date: 08/13/24 Status: Ordered Start: 09-13-2022 take 2 tablets by [facility] once daily at bedtime SEROquel 100 mg [...] Status: Ordered take 2 tablets by mo [facility] once daily at bedtime QUEtiapine (SEROquel) 200 mg tablet Take 2 tablets (400 mg) by mouth once daily at bedtime. 0 Active take 2 tablets by mo [facility] once daily at bedtime QUEtiapine (SEROquel) 400 mg tablet Take 2 tablets (800 mg) by mouth once daily at bedtime. 0 Active take 1 tablet by [facility] every twenty-four hours SEROquel 200 MG 1 tablet at bedtime Orally Once a day Active 12 hr ranolazine 500 mg extended release oral tablet (20 sources) Anti-anginal Start: 12-14-2024 take 2 tablets by mouth twice daily Ranexa 500 mg Tab-ER 1,000 mg = 2 tab(s), Oral, BID, # 60 tab(s), Refills(s) 5, Pharmacy: [facility], 162, cm, 11/24/24 17:19:00 EST, Height/Length Dosing, 79.9, kg, 11/24/24 17:19:00 EST, Weight Dosing Start Date: 12/14/24 Status: Ordered Start: 05-30-2024 take 2 tablets by [facility] twice daily Ranexa 500 mg Tab-ER 1,000 mg = 2 tab(s), Oral, BID, # 60 tab(s), Refills(s) 5, Pharmacy: [facility]/pharmacy #[id number], 154, cm, 05/30/24 10:31:00 EDT, Height/Length Dosing, 72.6, kg, 05/30/24 10:33:00 EDT, Weight Dosing Start Date: 05/30/24 Status: Ordered Start: 05-30-2024 take 1 tablet by [facility] twice daily Ranexa 500 mg Tab-ER 500 mg = 1 tab(s), Oral, BID, # 60 tab(s), Refills(s) 5, Pharmacy: [facility]/pharmacy #[id number], 154, cm, 05/30/24 10:31:00 EDT, Height/Length Dosing, 72.6, kg, 05/30/24 10:33:00 EDT, Weight Dosing Start Date: 05/30/24 Status: Ordered Start: 02-17-2024 take 1 tablet by [facility] twice daily Ranexa 500 mg Tab-ER 500 mg = 1 tab(s), Oral, BID, # 60 tab(s), Refills(s) 5, Pharmacy: [facility], 154, cm, 01/06/24 13:29:00 EST, Height/Length Dosing, 70.3, kg, 01/06/24 13:29:00 EST, Weight Dosing Start Date: 02/17/24 Status: Ordered Start: 09-02-2023 take 1 tablet by [facility] twice daily Ranexa 500 mg Tab-ER 500 mg = 1 tab(s), Oral, BID, # 60 tab(s), Refills(s) 3, [facility], 154, cm, 10/13/23 14:02:00 EST, Height/Length Dosing, 72.3, kg, 10/13/23 14:02:00 EST, Weight Dosing Start Date: 10/13/23 Status: Ordered rOPINIRole 1 mg oral tablet (20 sources) Nonergot Dopamine Agonist Start: 10-08-2024 take 1 tablet by mouth once daily ropinirole 1 mg Tab 1 mg = 1 tab(s), Oral, Daily, # 90 tab(s), Refills(s) 1, Pharmacy: [facility], 154, cm, 10/08/24 15:13:00 EST, Height/Length Dosing, 78.3, kg, 10/08/24 15:13:00 EST, Weight Dosing Start Date: 10/08/24 Status: Ordered Start: 03-14-2024 take 1 tablet by [facility] once daily ropinirole 1 mg Tab 1 mg = 1 tab(s), Oral, Daily, # 90 tab(s), Refills(s) 1, Pharmacy: [facility], 154, cm, 01/06/24 13:29:00 EST, Height/Length Dosing, 70.3, kg, 01/06/24 13:29:00 EST, Weight Dosing Start Date: 03/14/24 Status: Ordered Start: 09-13-2022 take 1 tablet by [facility] once daily ropinirole 1 mg Tab 1 mg = 1 tab(s), Oral, Daily, # 90 tab(s), Refills(s) 1, Pharmacy: [facility], 155.8, cm, 05/12/23 16:06:00 EDT, Height/Length [...] DOSE, # 180 tab(s), Refills(s) 1, Pharmacy: [facility], 154, cm, 07/21/23 14:15:00 EDT, [...] 01/30/19 Status: Ordered take 2 capsules by out once daily at bedtime venlafaxine XR (Effexor-XR) 150 mg 24 hr capsule Take 2 capsules (300 mg) by mouth once daily. Do not crush or chew. Takes 2 capsules at bedtime. 0 Active take 1 capsule by mo [facility] every twenty-four hours Venlafaxine HCl ER 150 [...] Start: 07-10-2023 take 1 tablet by destiny once daily aspirin 81 mg Oral EC [...] Coronary atherosclerosis; Translations: [Atherosclerotic heart disease of [place] coronary artery without angina pectoris] Onset: 09-01-2023 Chronic Disorders of lipid metabolism (4 sources) Hyperlipidemia; Translations: [Hyperlipidemia, unspecified] Onset: 10-29-2024 Chronic E Codes: Fall (1 source) Fall; Translations: [Unspecified fall, initial encounter] Onset: 11-24-2024 Episodic Essential hypertension (20 sources) Benign hypertension; Translations: [Essential (primary) hypertension] Onset: 05-21-2022 09-15-2022 Chronic Fluid and electrolyte disorders (2 sources) Hypokalemia; Translations: [Hypokalemia] Onset: 07-09-2023 Episodic Malaise and fatigue (16 sources) Weakness; Translations: [Fatigue] Onset: 03-23-2023 09-29-2023 Episodic Miscellaneous mental health disorders (20 sources) Primary insomnia; Translations: [Primary insomnia] Onset: 09-13-2022 09-15-2022 Chronic Mood disorders (20 sources) Major depressive disorder, single episode, unspecified; Translations: [Depressive disorder] Onset: 05-21-2022 Chronic Comment on above: Added per Dr. Fidencio gonzales response, per outpatient [facility] policy. Nausea and vomiting (1 source) Nausea; Translations: [Nausea] Onset: 08-08-2023 Episodic Nonspecific chest pain (12 sources) Chest pain; Translations: [Chest pain, unspecified] Onset: 09-01-2023 Episodic Comment on above: Added per Dr. Fidencio gonzales response, per outpatient [facility] policy. Open wounds of extremities (5 sources) Open bite of right wrist, initial encounter; Translations: [Laceration of hand without foreign body] Onset: 05-19-2022 Episodic Osteoporosis (6 sources) Senile osteoporosis; Translations: [Age-related osteoporosis without current pathological fracture] Chronic Other acquired deformities (3 sources) Scoliosis of lumbar spine; Translations: [Scoliosis, unspecified] Chronic Other aftercare (4 sources) Post-discharge follow-up 07-13-2023 Episodic Other aftercare (3 sources) Long-term current use of drug therapy; Translations: [Other technician terminal and repeater (current) drug therapy] Onset: 09-01-2023 Episodic Other and unspecified benign neoplasm (1 source) Benign neoplasm of meninges, unspecified; Translations: [BENIGN NEOPLASM OF MENINGES UNS] Onset: 09-12-2022 Chronic Other bone disease and musculoskeletal deformities (1 source) Chondrocostal junction syndrome [Tietze]; Translations: [M94.0] Onset: 10-29-2024 Episodic Other circulatory disease (15 sources) History of acute ST segment elevation myocardial infarction 09-27-2023 Episodic Comment on above: added per 09/12/2023 query response. Other connective tissue disease (1 source) Repeated falls; Translations: [REPEATED FALLS] Onset: 03-11-2023 Episodic Other connective tissue disease (1 source) Abnormal posture; Translations: [ABNORMAL POSTURE] Onset: 03-23-2023 Episodic Other connective tissue disease (1 source) Musculoskeletal test abnormal; Translations: [Other symptoms and signs involving the musculoskeletal system] Onset: 11-24-2024 Episodic Other gastrointestinal disorders (1 source) Irritable [...] Onset: 02-14-2023 Chronic Other nervous system disorders (12 sources) Chronic pain; Translations: [Other chronic pain] Onset: 07-09-2023 Chronic Other nervous system disorders (2 sources) Other chronic pain Chronic Other nervous system disorders (20 sources) Polyneuropathy; Translations: [Polyneuropathy, unspecified] Onset: 02-10-2023 [...] Chronic Other nutritional; endocrine; and metabolic disorders (3 sources) Obesity; Translations: [Obesity, unspecified] Onset: 07-09-2023 Chronic Other nutritional; endocrine; and metabolic disorders (1 source) Body mass index 25-29 - overweight 12-27-2024 Episodic Other nutritional; endocrine; and metabolic disorders (1 source) Overweight in adulthood with body mass index of 25 or more but less than 30 12-27-2024 Episodic Other upper respiratory infections (10 sources) Sinusitis 05-29-2024 Chronic Peripheral and visceral atherosclerosis (20 sources) Atherosclerosis of aorta; Translations: [Peripheral vascular disease] Onset: 11-24-2024 09-13-2023 Chronic Comment on above: Added per Dr. Fidencio gonzales response, per outpatient [facility] policy. Residual codes; unclassified (4 sources) Dependence on other enabling machines and devices; Translations: [Dependence on other enabling machines] Onset: 10-05-2023 10-05-2023 Chronic Residual codes; unclassified (2 sources) Tobacco user; Translations: [Tobacco use] Onset: 07-09-2023 Episodic Spondylosis; intervertebral disc disorders; other back problems (20 sources) Cervical disc disorder; Translations: [Other cervical disc degeneration, unspecified cervical region] Chronic Spondylosis; intervertebral disc disorders; other back problems (12 sources) Dorsalgia, unspecified; Translations: [Spinal stenosis, cervical region] Onset: 03-11-2023 Episodic Substance-related disorders (20 sources) Smoker; Translations: [Nicotine dependence] Onset: 05-21-2022 09-15-2022 Chronic Superficial injury; contusion (2 sources) Abrasion of left wrist, initial encounter; Translations: [Abrasion of head] Onset: 05-21-2022 Episodic Syncope (2 sources) Syncope and collapse; Translations: [R55] Onset: 11-24-2024 Episodic Unclassified (20 sources) Does mobilize using walker 02-10-2023 Unclassified (2 sources) history of [place] Onset: 10-11-2023 Unclassified (1 source) Atherosclerotic heart disease of [place] coronary artery with refractory angina pectoris (CMS-HCC); Translations: [Atherosclerotic heart disease of [place] coronary artery with refractory angina pectoris (CMS-HCC)] Onset: 10-19-2023 Past or Other Problems Problem Classification Problem Date Documented Date Episodic/Chronic E Codes: Natural/environment (1 source) Bitten by dog, initial encounter; Translations: [BITTEN BY DOG INITIAL ENCOUNTER] Onset: 05-21-2022 Episodic Immunizations and screening for infectious disease (1 source) Encounter for immunization; Translations: [ENCOUNTER FOR IMMUNIZATION] Onset: 05-21-2022 Episodic Other aftercare (1 source) Other technician terminal and repeater (current) drug therapy; Translations: [OTH SAMPLE SAWYER CURRENT DRUG THERAPY] Onset: 09-12-2022 Episodic Other [...] SPRAIN RT WRIST INITIAL] Onset: 05-21-2022 Episodic Unclassified (1 source) Low back pain, unspecified M54.50 Unclassified (1 source) 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 There is no significant occlusive disease and there is no huge PACU that would require immediate intervention. I discussed with her risk factors modifications smoking cessation aspirin and statin. I will see her in a year and surveillance. Review of Systems Constitutional: no fever, no [...] bruising tendency, no petechiae, no swollen nodes Allergy/Immunologic : no seasonal allergies, no food allergies, no recurrent infections, no impaired immunity Additional ROS info: Except as noted in the above Review of Systems and in the History of Present Illness all other systems have been reviewed and are negative or noncontributory. Physical Exam Vitals & Measurements HR: 85(Peripheral) RR: 16 BP: 154/92 SpO2: 93% HT: 64 in HT: 162 cm WT: 73.8 kg WT: 162.701 lb BMI: 28.12 General: alert, no acute distress Skin: warm, dry Head: no trauma, normocephalic Neck: Trachea midline, no adenopathy, no tenderness Eye: normal conjunctiva, sclera clear Cardiovascular: regular rate and rhythm, normal peripheral perfusion Respiratory: Lungs CTA, respirations non labored Chest wall: no deformity. Gastrointestinal: soft, non distended, no tenderness, no guarding. Back: No tenderness, Normal ROM, Normal alignment. Extremities: no edema,no deformity, no trauma Neurological: oriented x 4, LOC appropriate for age, motor strength equal & normal bilaterally, sensation equal & normal bilaterally, speech normal Psychiatric: cooperative, affect appropriate for age, normal judgement, normal psychiatric thoughts. Assessment/Plan 1. Aorto-iliac atherosclerosis (I70.0: Atherosclerosis of aorta) I discussed with her risk factors modifications smoking cessation aspirin and statin. I will see her in a year and surveillance. Atherosclerosis of other arteries (I70.8: Atherosclerosis of other arteries) Follow-up No qualifying data available Problem List/Past Medical History Ongoing Anxiety and depression Atherosclerosis of aorta Back pain BMI 28.0-28.9,adult CAD (coronary artery disease) Chest pain syndrome COPD (chronic obstructive pulmonary disease) Fatigue History of ST elevation myocardial infarction (STEMI) History of total abdominal hysterectomy HLD (hyperlipidemia) HTN (hypertension), benign Major depressive disorder, recurrent, moderate Overweight (BMI 25.0-29.9) Polyneuropathy Primary insomnia PVD (peripheral vascular disease) RLS (restless legs syndrome) Sinus infection Smoker Walker as ambulation aid Historical Acute ST [...] mg= 1 tab(s), Oral, Daily, 5 refills Breztri Aerosphere, 2 puff(s), Inhalation, BID carvedilol 12.5 mg Tab, 12.5 mg= 1 tab(s), Oral, BID, 3 refills Effexor XR 150 mg Cap-ER, 300 mg= 2 cap(s), Oral, Once a day (at bedtime) Handicap Sanketard, 5 years., See Instructions isosorbide mononitrate 30 mg ER Tab, 30 mg= 1 tab(s), Oral, BID, 3 refills Lamictal 25 mg Tab, 75 mg= 3 tab(s), Oral, Once a day (at bedtime) losartan 100 mg Tab, 100 mg= 1 tab(s), Oral, Daily, 5 refills nitroglycerin 0.4 mg sublingual Tab, 0.4 mg= 1 tab(s), SubLingual, q5min, PRN, 6 refills prasugrel 10 mg Tab, 10 mg= 1 tab(s), Oral, Daily, 5 refills quetiapine 100 mg Tab, 150 mg, Oral, Bedtime Ranexa 500 mg Tab-ER, 1000 mg= 2 tab(s), Oral, BID, 5 refills ropinirole 1 mg Tab, 1 mg= 1 tab(s), Oral, Daily, 1 refills traZODONE 100 mg Tab, 300 mg= 3 tab(s), Oral, Once a day (at bedtime) ZyPREXA 5 mg Tab, 5 mg= 1 tab(s), Oral, Once a day (at bedtime) Allergies BuSpar (Migraine, Unknown) sulfa drugs (Rash) Lyrica (Feels drunk, falls down) Nicotine Patch (Rash) Tape (Sensitive) sulfamethoxazole (U (more content not included)... Normal [facility] Comment on above: Result Comment: Elec tronically Signed By: Abhi POSEY, Lexis Sauceda\.br\Date and Time Signed: 01/07/25 13:20 EST Ambulatory Visit Summaryon 0 12-27-2024 Ambulatory Visit Summary Ambulatory Visit Summary LIVIA JACOBO :1960 Visit Date:12/27/2024 Ambulatory Visit Instructions Your Diagnosis COPD (chronic obstructive pulmonary disease) Overweight (BMI 25.0-29.9) Smoker Major depressive disorder, recurrent, moderate Polyneuropathy HTN (hypertension), benign Walker as ambulation aid BMI 28.0-28.9,adult Your Care Team Attending Physician - Dorie Luis MD Primary Care Physician - Fidencio POSEY, Dorie Jean Baptiste This Is Your Medications List [facility] Prescription (Rosangela Gautam, 5 years.) albuterol (Albuterol (Eqv-ProAir HFA) 90 mcg/inh inhalation aerosol) alprazolam (alprazolam 1 mg Tab) aspirin (aspirin 81 mg Oral EC Tab) atorvastatin (atorvastatin 80 mg Tab) budesonide/formoter ol/glycopyrrolate (Breztri Aerosphere) carvedilol (carvedilol 12.5 mg Tab) isosorbide mononitrate (isosorbide mononitrate 30 [...] (07/09/2023), Angioplasty, Gallbladder, Hysterectomy. Discharge Vitals Temperature (Tympanic) 36.0 ???C Heart Rate (Peripheral) 89 Respiratory Rate 18 Blood Pressure 142/90 Height 162 cm Height 64 in Weight 75.3 kg Weight 166.008 lb BMI 28.69 What to do next Scheduled Follow-Up Appointments Tuesday 11:45 AM EST With: Abhi POSEY, Lexis Sauceda [facility]: [facility] 2024 10:45 AM EDT With: Fidencio POSEY, Dorie Jean Baptiste Where: [address] [address]- Tuesday 2:30 PM EDT With: Where: [address] [address]- Medications What How Much When Why Instructions Unchanged albuterol (Albuterol (Eqv-ProAir HFA) 90 mcg/ inh inhalation aerosol) 2 Puffs Inhalation Every 4 hours as needed for Shortness of breath or wheezing as needed Unchanged alprazolam (alprazolam 1 mg Tab) 1 Tablets By Mouth 4 times a day as needed for for anxiety Unchanged aspirin (aspirin 81 mg Oral EC Tab) 1 Tablets By Mouth Every day Unchanged atorvastatin (atorvastatin 80 mg Tab) 1 Tablets By Mouth Every day Unchanged budesonide/ formoterol/ glycopyrrolate (Breztri Aerosphere) 2 Puffs Inhalation 2 times a day Unchanged carvedilol (carvedilol 12.5 mg Tab) 1 Tablets By Mouth 2 [...] (at bedtime) one tablet at bedtime Unchanged prasugrel (prasugrel 10 mg Tab) 1 Tablets By Mouth Every day Unchanged quetiapine (quetiapine 100 mg Tab) 150 Milligram By Mouth At bedtime Unchanged ranolazine (Ranexa 500 mg Tab-ER) 2 Tablets By Mouth 2 times a day Unchanged ropinirole (ropinirole 1 mg Tab) 1 Tablets By Mouth Every day Unchanged trazodone (traZODONE 100 mg Tab) 3 Tablets By Mouth Once a day (at bedtime) Unchanged venlafaxine (Effexor XR 150 mg Cap-ER) 2 Capsules By Mouth Once a day (at bedtime) Allergies BuSpar (Migraine, Unknown) sulfa drugs (Rash) Lyrica (Feels drunk, falls down) Nicotine Patch (Rash) Tape (Sensitive) sulfamethoxazole (Unknown (origin)) Problems Ongoing - Any problem that you are currently receiving treatment for. Anxiety and depression Atherosclerosis of aorta Back pain BMI 28.0-28.9,adult CAD (coronary artery disease) Chest pain syndrome COPD (chronic obstructive pulmonary disease) Fatigue History of ST elevation myocardial infarction (STEMI) History of total abdominal hysterectomy HLD (hyperlipidemia) HTN (hypertension), benign Major depressive disorder, recurrent, moderate Overweight (BMI 25.0-29.9) Polyneuropathy Primary insomnia PVD (peripheral vascular disease) RLS (restless legs syndrome) Sinus infection Smoker Walker as ambula (more content not included)... Normal [facility] Family Medicine Office/Clini c Noteon 12-27-2024 Family Medicine Office/Clinic Note Family Medicine Office/Clinic Note Chief Complaint ACute Visit *Falls Difficulty with ambulation due to legs giving out. HPI Staff Pt presents today for acute visit due to recent falls. Has had several falls over the last couple months. Feels as though her legs are giving out on her. Does occasionally use walker. Denies dizziness. History of Present Illness The patient is a 64-year-old female presenting with difficulty ambulating primarily due to leg weakness. She reports recurrent falls, with the last fall occurring the night before the consultation, resulting in the inability to return to her bed and sleeping on the floor. She associates her difficulty with ambulation to her polyneuropathy, which leads her legs to occasionally give out. The patient is currently dependent on a walker, which she indicates is sometimes ineffective as her legs still give out and result in bruising. Previous evaluations by neurology suggested potential chronic issues without a definitive diagnosis, leading to the patient apprehension for a follow-up. MRI findings indicated moderate canal narrowing and foraminal stenosis at L1-L2 and L2-L3. She had past hospitalization for weakness without resolution, and recommendations for neurosurgery follow-up were not pursued due to logistics and communication issues. Additionally, the patient has a history of chronic conditions including COPD, hypertension, and recurrent moderate major depressive disorder, all of which may impact her current symptoms. She smoked previously, which may have exacerbated her COPD, but her exact smoking status was not updated in the conversation. - Discussed the importance of continued use of the walker and safety precautions, especially considering icy conditions. - Referral for physical therapy was considered to improve strength and stability. - Coordination with social work for transportation assistance was discussed. - Encouraged follow-up appointments for regular screening, particularly for neurological and pulmonary conditions. Review of Systems PHQ Score Initial Depression Screen Score: 0 SCORE Physical Exam Vitals & Measurements T: 36.0 ???C(Tympanic) HR: 89(Peripheral) RR: 18 BP: 142/90 SpO2: 96% HT: 64 in HT: 162 cm WT: 75.3 kg WT: 166.008 lb BMI: 28.69 General: alert, no acute distress ENMT: oral mucosa moist Cardiovascular: Regular rate and rhythm, normal peripheral perfusion Respiratory: Lungs diminished, respirations non labored Extremities: bruising present, Neurological: oriented x 4, level of consciousness appropriate for age, CN II-XII intact, motor strength equal & normal bilaterally, speech normal Abdomen: Soft, Non-tender, Non-distended, + Bowel sounds Assessment/Plan 1. COPD (chronic obstructive pulmonary disease) (J44.9: Chronic obstructive pulmonary disease, unspecified) COPD is currently stable with slightly diminished lung sounds noted. Advised to continue with current treatment regimen and ensure adequate follow-up if any exacerbation or respiratory symptoms worsen. Or[place] [facility] [place] 2. Overweight (BMI 25.0-29.9) (E66.3: Overweight) Diet and exercise advised. Ordered: [facility] [place] 3. Smoker (F17.200: Nicotine dependence, unspecified, uncomplicated) The patient's smoking history can significantly contribute to her respiratory condition. Counseling for smoking cessation should be considered if not already undertaken. Ordered: [facility] [place] 4. Major depressive disorder, recurrent, moderate (F33.1: Major depressive disorder, recurrent, moderate) The patient reports feeling down but seems to maintain a psychiatric follow-up with Dr. Sandhu. Continue psychiatric evaluation to manage symptoms adequately. Ordered: [facility] [place] 5. Polyneuropathy (G62.9: Polyneuropathy, unspecified) Difficulty with ambulation linked to polyneuropathy is evident. Follow-up neurological and potential neurosurgical consultation might be beneficial for further management and exploring new treatment options or interventions. Ordered: [facility] [place] Ref[place] 6. HTN (hypertension), benign (I10: Essential (primary) hypertension) Continue monitoring blood pressure and adherence to antihypertensive therapy. Regular follow-ups are essential to manage and reevaluate the treatment plan as needed. 7. Walker as ambulation aid (Z99.89: Dependence on other enabling machines and devices) The need for ambulation support was identified, and adherence to occupational therapy recommendations to constantly use a four-wheel walker was emphasized. 8. BMI 28.0-28.9,adult (Z68.28: Body mass index [BMI] 28.0-28.9, adult) BMI education added. 64-year-old female with a history of polyneuropathy and chronic conditions including COPD and essential hypertension presenting with difficulty ambulating due to leg weakness and recurrent falls. The patient's ambulation issues (more content not included)... Normal [facility] Comment on above: Result Comment: Elec tronically Signed By: Fidencio POSEY, Dorie Jean Baptiste\.br\Date and Time Signed: 12/27/24 11:24 EST RPR with Conf Rfxon 11-27-19 25 Reagin Ab RPR Ql (S) Non-Reactive Invalid Interpretation Code Non Reactive [facility] Comment on above: Result Comment: Perf ormed at: [facility] [address] [id number] PhD Francois Amos Performed By: #### 1 [id number] #### [facility] [address] [place] [address] BMPon 11-26-2024 Anion gap [Moles/Vol] 10 mmol/L Normal 6-16 [facility] Comment on above: Performed By: #### 2 [id number] #### [facility] [address] [place] [address] Calcium [Mass/Vol] 9.1 mg/dL Normal 8.9-11.1 [facility] Comment on above: Performed By: #### 2 [id number] #### [facility] [address] [place] [address] Chloride [Moles/Vol] 105 mmol/L Normal 101-111 [facility] Comment on above: Performed By: #### 2 [id number] #### [facility] [address] [place] [address] CO2 [Moles/Vol] 29 mmol/L Normal 21-31 [facility] Comment on above: Performed By: #### 2 [id number] #### [facility] [address] [place] [address] Creatinine [Mass/Vol] 0.7 mg/dL Normal 0.5-1.3 [facility] Comment on above: Performed By: #### 2 [id number] #### [facility] [address] [place] [address] Glucose [Mass/Vol] 90 mg/dL Normal 55-199 [facility] Comment on above: Performed By: #### 2 [id number] #### [facility] [address] [place] [address] Potassium [Moles/Vol] 3.7 mmol/L Normal 3.5-5.3 [facility] Comment on above: Performed By: #### 2 [id number] #### [facility] [address] [place] [address] Sodium [Moles/Vol] 140 mmol/L Normal 135-145 [facility] Comment on above: Performed By: #### 2 [id number] #### [facility] [address] [place] [address] Urea nitrogen [Mass/Vol] 15 mg/dL Normal 5-21 [facility] Comment on above: Performed By: #### 2 [id number] #### [facility] [address] [place] [address] Urea nitrogen/Creatinine [Mass ratio] 21 No Units High 10-20 [facility] Comment on above: Performed By: #### 2 [id number] #### [facility] [address] [place] [address] CBC w/ Auto Diffon 5 Basophils/100 WBC (Bld) 1.0 % Normal 0.0-2.0 [facility] Comment on above: Performed By: #### 2 [id number] #### [facility] [address] [place] [address] Basophils/Leukocytes Auto (Bld) [Pure # fraction] 0.0 E9/L Normal 0.0-0.2 [facility] Comment on above: Performed By: #### 2 [id number] #### [facility] [address] [place] [address] Eosinophils (Bld) [#/Vol] 0.1 E9/L Normal 0.0-0.5 [facility] Comment on above: Performed By: #### 2 [id number] #### [facility] [address] [place] [address] Eosinophils/100 WBC (Bld) 3.1 % Normal 0.0-8.0 [facility] Comment on above: Performed By: #### 2 [id number] #### [facility] [address] [place] [address] Erythrocyte distribution width (RBC) [Ratio] 13.6 % Normal 10.9-14.2 [facility] Comment on above: Performed By: #### 2 [id number] #### [facility] [address] [place] [address] Hematocrit (Bld) [Volume fraction] 42.4 % Normal 34.0-46.0 [facility] Comment on above: Performed By: #### 2 [id number] #### [facility] [address] [place] [address] Hemoglobin (Bld) [Mass/Vol] 14.7 g/dL Normal 12.0-16.0 [facility] Comment on above: Performed By: #### 2 [id number] #### [facility] [address] [place] [address] Lymphocytes (Bld) [#/Vol] 1.7 E9/L Normal 1.0-4.0 [facility] Comment on above: Performed By: #### 2 [id number] #### [facility] [address] [place] [address] Lymphocytes/100 WBC (Bld) 44.2 % Normal 14.0-50.0 [facility] Comment on above: Performed By: #### 2 [id number] #### [facility] [address] [place] [address] MCH (RBC) [Entitic mass] 33.5 pg Normal 27.0-34.0 [facility] Comment on above: Performed By: #### 2 [id number] #### [facility] [address] [place] [address] MCHC (RBC) [Mass/Vol] 34.8 g/dL Normal 31.4-36.0 [facility] Comment on above: Performed By: #### 2 [id number] #### [facility] [address] [place] [address] MCV (RBC) [Entitic vol] 96.5 fL Normal 80.0-100.0 [facility] Comment on above: Performed By: #### 2 [id number] #### [facility] [address] [place] [address] Monocytes (Bld) [#/Vol] 0.4 E9/L Normal 0.2-1.0 [facility] Comment on above: Performed By: #### 2 [id number] #### [facility] [address] [place] [address] Neutrophils (Bld) [#/Vol] 1.7 E9/L Low 2.0-7.5 [facility] Comment on above: Performed By: #### 2 [id number] #### [facility] [address] [place] [address] Neutrophils/100 WBC (Bld) 42.4 % Normal 36.0-75.0 [facility] Comment on above: Performed By: #### 2 [id number] #### [facility] [address] [place] [address] Platelet mean volume (Bld) [Entitic vol] 7.5 fL Normal 6.4-10.8 [facility] Comment on above: Performed By: #### 2 [id number] #### [facility] [address] [place] [address] Platelets (Bld) [#/Vol] 184.0 E9/L Normal 150.0-500.0 [facility] Comment on above: Performed By: #### 2 [id number] #### [facility] [address] [place] [address] RBC (Bld) [#/Vol] 4.4 E12/L Normal 4.3-5.9 [facility] Comment on above: Performed By: #### 2 [id number] #### [facility] [address] [place] [address] WBC corrected for nucl RBC Auto (Bld) [#/Vol] 3.9 E9/L Low 4.0-11.0 [facility] Comment on above: Performed By: #### 2 [id number] #### [facility] [address] [place] [address] CHEMISTRYOrdered By: SYSTEM SYSTEM on 11-26-2024 Anion gap [Moles/Vol] 10 mmol/L Normal 6 - 16 mEq/L Remisol Chem Calcium [Mass/Vol] 9.1 mg/dL Normal 8.9 - 11.1 mg/dL Remisol Chem Chloride [Moles/Vol] 105 mmol/L Normal 101 - 111 mmol/ L Remisol Chem CO2 [Moles/Vol] 29 mmol/L Normal 21 - 31 mmol/L Remis ol Chem Creatinine [Mass/Vol] 0.7 mg/dL Normal 0.5 - 1.3 mg/dL Remisol Chem eGFR 96 mL/min/1.73 m2 Normal >=59mL/min/1.73 m2 Remisol Chem Glucose [Mass/Vol] 90 mg/dL Normal 55 - 199 mg/dL Re misol Chem Potassium [Moles/Vol] 3.7 mmol/L Normal 3.5 - 5.3 mmol/L Remisol Chem Sodium [Moles/Vol] 140 mmol/L Normal 135 - 145 mmol/L Remisol Chem Urea nitrogen [Mass/Vol] 15 mg/dL Normal 5 - 21 mg/dL Remisol Chem Urea nitrogen/Creatinine [Mass ratio] 21 mg/mg High 10 - 20 Remisol Chem Discharge Note-Nursingon Discharge Note-Nursing Discharge Note-Nursing LIVIA JACOBO :1960 Visit Date:11/24/2024 Inpatient Discharge Instructions Your Care Team Admitting Physician - Alec LUTHER DO Consulting Physician - Elsy López MD Reason for Your Visit Fall Your Diagnosis Leg weakness, bilateral Fall Forehead abrasion Hand laceration HTN (hypertension), benign Anxiety and depression HLD (hyperlipidemia) RLS (restless legs syndrome) CAD (coronary artery disease) PVD (peripheral vascular disease) On deep vein thrombosis (DVT) prophylaxis Fall Scalp laceration Shortness of breath Tests Performed RPR with Conf Rfx -- Results Pending -- CT Abdomen/Pelvis w/ Contrast CT C-Spine w/o Contrast CT Chest w/ Contrast CT Head or Brain w/o Contrast Lumbar Spine MRI w/ + w/o Contrast XR Shoulder Complete Right Please visit your patient portal for your results or contact your primary care physician. This Is Your Medications List [facility] Prescription (Rosangela Gautam, 5 years.) acetaminophen (acetaminophen 325 mg Tab) albuterol (Albuterol (Eqv-ProAir HFA) 90 mcg/inh inhalation aerosol) alprazolam (alprazolam 1 mg Tab) aspirin (aspirin 81 mg Oral EC Tab) atorvastatin (atorvastatin 80 mg Tab) budesonide/formoter ol/glycopyrrolate (Breztri Aerosphere) carvedilol (carvedilol 12.5 mg Tab) isosorbide mononitrate (isosorbide mononitrate 30 [...] Angioplasty, Gallbladder, Hysterectomy. Discharge Vitals Temperature (Axillary) 36.9 ???C Heart Rate (Monitored) 86 Respiratory Rate 20 Blood Pressure 135/79 Weight 79.7 kg What to do next Instructions From Your Doctor Event Name Event Result Discharge Activity Ambulate as tolerated Discharge Restrictions No restrictions Discharge Diet(s) Regular Pending Diagnostic Test Results None Discharge Instructions - Use front wheeled walker with ambulation Previously Scheduled Follow-Up Appointments Tuesday 11:00 AM EST With: Abhi POSEY, Lexis Sauceda Where: [facility] Tuesday 7:45 AM EST With: Dorie Luis MD Where: [address] [address]- Tuesday 1:00 PM EST With: Amilcar Matthews PA-C Where: Cardiology Clinic Tuesday 1:00 PM EST With: Dorie Luis MD Where: [address] [address]- Tuesday 2:30 PM EDT With: Where: [address] [address]- New Follow Up Appointments after Discharge Follow Up with Rene POSEY, SARAH Chin When: 01/28/2025 12:00 PM EDT Comments: Please bring in proof of insurance to this hospital follow up appointment. Where: [id number] [facility] [address] [place] [address]- Business (1) Follow Up with Orlando Sepulveda When: 12/19/2024 11:00 AM EST Comments: Multilevel foraminal and canal narrowing. Where: [address] [facility], [address] [place] [phone] Business (1) [address] [place] [address]- [phone] Follow Up with Dorie Luis When: 12/04/2024 07:45 AM EST Comments: Please bring proof of insurance to this hosptial follow up appointment. Where: [address] [place] [address] Business (2) Medications What How Much When Why Instructions Next Dose Unchanged acetaminophen (acetaminophen 325 mg Tab) 2 Tablets By Mouth Every 6 hours as needed for Pain As needed Unchanged albuterol (Albuterol (Eqv-ProAir HFA) 90 mcg/ inh inhalation aerosol) 2 Puffs Inhalation Every 4 hours as needed for Shortness of breath or wheezing as needed As needed Unchanged alprazolam (alprazolam 1 mg Tab) 1 Tablets By Mouth 4 times a day as needed for for anxiety As needed Unchanged aspirin (aspirin 81 mg Oral EC Tab) 1 Tablets By Mouth Every day 11/27/2024 Unchanged atorvastatin (atorvastatin 80 mg Tab) 1 Tablets By Mouth Every day 11/27/2024 Unchanged budesonide/ formoterol/ glycopyrrolate (Breztri Aerosphere) 2 Puffs Inhalation 2 times a day Tonight at 9:00 PM Unchanged carvedilol (carvedilol 12.5 mg Tab) 1 Tablets By Mouth 2 times a day Tonight at 9:00 PM Unchanged isosorbide mononitrate (isosorbide mononitrate 30 mg ER Tab) 1 Tablets By Mouth 2 times a day Tonight a 9:00 PM Unchanged lamotrigine (Lamictal 25 mg Tab) 3 Tabl (more content not included)... Normal [facility] EEGon 11-26-2024 EEG EEG CLINICAL HISTORY: Drop attacks. No history of seizures. TECHNICAL INFORMATION: This routine EEG was performed using the standard international 10-20 system of lead placement. All data was obtained digitally and available for reformatting and remontaging. Simultaneous electrocardiogram monitoring was performed during the recording. DESCRIPTION OF EEG RECORDING: Posterior dominant rhythm was apparent, was of average amplitude, was 10 hz, and appropriately attenuated with eye-opening. Electrical activity is generally of symmetric amplitude between hemispheres and from anterior to posterior. Photic stimulation was used as an activating procedure and resulted in no abnormal findings. No electrographic sleep was observed. No epileptiform activity was seen throughout the entirety of the recording. No significant or interpretation-limi ting artifact was seen. IMPRESSION: This is a normal EEG. Normal appearing electrical background. No seizures or epileptiform activity were seen. No concerning findings that would be suggestive of an increased risk of seizure. Normal [facility] Comment on above: Result Comment: Elec tronically Signed By: Jasper Benjamin DO.br\Date and Time Signed: 11/26/24 12:14 EST HEMATOLOGYOrdered By: SYSTEM SYSTEM on 11-26-2024 Basophils/100 WBC (Bld) 1.0 % Normal 0.0 - 2.0 % Remisol Heme Basophils/Leukocytes Auto (Bld) [Pure # fraction] 0.0 E9/L Normal 0.0 - 0.2 E9/L Remisol Heme Eosinophils (Bld) [#/Vol] 0.1 E9/L Normal 0.0 - 0.5 E9/L Remisol Heme Eosinophils/100 WBC (Bld) 3.1 % Normal 0.0 - 8.0 % Remisol Heme Erythrocyte distribution width (RBC) [Ratio] 13.6 % Normal 10.9 - 14.2 % Remisol Heme Hematocrit (Bld) [Volume fraction] 42.4 % Normal 34.0 - 46.0 % Remisol Heme Hemoglobin (Bld) [Mass/Vol] 14.7 g/dL Normal 12.0 - 16.0 gm/dL Remisol Heme Lymphocytes (Bld) [#/Vol] 1.7 E9/L Normal 1.0 - 4.0 E9/L Rem[facility] Heme Lymphocytes/100 WBC (Bld) 44.2 % Normal 14.0 - 50.0 % Remisol Heme MCH (RBC) [Entitic mass] 33.5 pg Normal 27.0 - 34.0 pg Remisol Heme MCHC (RBC) [Mass/Vol] 34.8 g/dL Normal 31.4 - 36.0 gm/dL Remisol Heme MCV (RBC) [Entitic vol] 96.5 fL Normal 80.0 - 100.0 fL Remisol Heme Monocytes (Bld) [#/Vol] 0.4 E9/L Normal 0.2 - 1.0 E9/L Remisol Heme Monocytes/100 WBC (Bld) 9.3 % Normal 4.0 - 14.0 % Remisol Heme Neutrophils (Bld) [#/Vol] 1.7 E9/L Low 2.0 - 7.5 E9/L Remisol Heme Neutrophils/100 WBC (Bld) 42.4 % Normal 36.0 - 75.0 % Rem[facility] Heme Platelet mean volume (Bld) [Entitic vol] 7.5 fL Normal 6.4 - 10.8 fL Remisol Heme Platelets (Bld) [#/Vol] 184.0 E9/L Normal 150.0 - 500.0 E9/L Remisol Heme RBC (Bld) [#/Vol] 4.4 E12/L Normal 4.3 - 5.9 E12/L Re misol Heme WBC corrected for nucl RBC Auto (Bld) [#/Vol] 3.9 E9/L Low 4.0 - 11.0 E9/L Remisol Heme Inpatient Clinical Summaryon 11-26-2024 Inpatient Clinical Summary Inpatient Clinical Summary [place] [id number] Clinical Summary Person Information: Name: LIVIA JACOBO Age: 64 Years : 1960 Sex: Female PCP: Dorie Luis MD Marital Status: Race: White Ethnicity: Non- or Language: Honduran Visit Id: Visit Reason: Scalp laceration; Fall; Shortness of breath; fall Speciality: Acuity: Enc Type: Observation Med Service: Medical Arrival: 11/24/2024 17:08:50 Discharge: Dispo Type: Admitted as IP [facility] Address: [facility] [id number] Provider Notes: Diagnosis: 1:Leg weakness, bilateral; 2:Fall; 3:Forehead abrasion; 4:Hand laceration; 5:HTN (hypertension), benign; 6:Anxiety and depression; 7:HLD (hyperlipidemia); 8:RLS (restless legs syndrome); 9:CAD (coronary artery disease); 10:PVD (peripheral vascular disease); 11:On deep vein thrombosis (DVT) prophylaxis Problems Active PVD (peripheral vascular disease) CAD (coronary artery disease) HLD (hyperlipidemia) Back pain Major depressive disorder, recurrent, moderate Chest pain syndrome Sinus infection Fatigue History of ST elevation myocardial infarction (STEMI) Atherosclerosis of aorta History of total abdominal hysterectomy Walker as ambulation aid Polyneuropathy (02/10/2023) COPD (chronic obstructive pulmonary disease) (09/15/2022) Anxiety and depression (09/13/2022) HTN (hypertension), benign (09/13/2022) Primary insomnia (09/13/2022) RLS (restless legs syndrome) (09/13/2022) Current smoker (09/13/2022) Smoking Status: Current Some Day Smoker Functional Status: Sensory Deficits: History of Falls: Mobility Assistance Prior to Admission: ADLs: Independent Current Level of Assistance for Self-Care/Mobility: Cognitive Status: Oriented x 3 Allergies BuSpar (Migraine) (Unknown) Lyrica (Feels drunk, falls down) sulfamethoxazole (Unknown (origin)) Tape (Sensitive) sulfa drugs (Rash) Nicotine Patch (Rash) Measurements: Height: 162.56 cm Weight: 79.7 kg Blood Pressure: 135 mmHg / 79 mmHg BMI: 29.14 kg/m2 Procedures No Procedures Documented Immunizations No Immunizations Documented This Visit Final Med List: acetaminophen (acetaminophen 325 mg Tab) 2 Tablets By Mouth every 6 hours as needed Pain. albuterol (Albuterol (Eqv-ProAir HFA) 90 mcg/inh inhalation [...] Inhalation 2 times a day. carvedilol (carvedilol 12.5 mg Tab) 1 Tablets By Mouth 2 times a day. Refills: 2. isosorbide mononitrate (isosorbide mononitrate 30 mg ER Tab) 1 Tablets By Mouth 2 times a day. Refills: 6. lamotrigine (Lamictal 25 mg Tab) 3 Tablets By Mouth once a day (at bedtime). losartan (losartan 100 mg Tab) 1 Tablets By Mouth every day. Refills: 5. Misc Prescription (Handicap Placard, 5 years.) Handicap [...] Refills: 5. quetiapine (quetiapine 100 mg Tab) 150 Milligram By Mouth at bedtime. ranolazine (Ranexa 500 mg Tab-ER) 2 Tablets By Mouth 2 times a day. Refills: 5. ropinirole (ropinirole 1 mg Tab) 1 Tablets By Mouth every day. Refills: 1. trazodone (traZODONE 100 mg Tab) 3 Tablets By Mouth once a day (at bedtime). venlafaxine (Effexor XR 150 mg Cap-ER) 2 Capsules By Mouth once a day (at bedtime). Care Team Members: Attending Physician: Alec LUTHER DO Consulting Physician: Elsy López MD Referring Physician: Follow up: With: Address: When: Droie Luis [address] [place] [phone] Business (2) 12/04/2024 7:45 AM Comments: Please bring proof of insurance to this hosptial follow up appointment. With: Address: When: Elsy López MD, NEU [address] [address] Business (1) 01/28/2025 12:00 PM Comments: Please bring in proof of insurance to this hospital follow up appointment. With: Address: When: Orlando Sepulveda [address] [facility], [address] [place] [phone] Business (1) Within 2 weeks Comments: Multilevel foraminal and canal narrowing. Call for followup appointment Type Location Start Finish State Vascular New Patient (FT) FT.Vascular (more content not included)... Normal [facility] Inpatient Patient Summaryon 11-26-2024 Inpatient Patient Summary Inpatient Patient Summary [address] [address] Patient Discharge Instructions PERSON INFORMATION Name: LIVIA JACOBO Date of : 1960 Current Date: 11/26/2024 13:24:57 PHYSICIANS Admitting Physician: Alec LUTHER DO Primary Care Physician: Dorie Luis MD PCP Comment: Discharge Diagnosis: 1:Leg weakness, bilateral; 2:Fall; 3:Forehead abrasion; 4:Hand laceration; 5:HTN (hypertension), benign; 6:Anxiety and depression; 7:HLD (hyperlipidemia); 8:RLS (restless legs syndrome); 9:CAD (coronary artery disease); 10:PVD (peripheral vascular disease); 11:On deep vein thrombosis (DVT) prophylaxis Condition at Discharge: Improved LIVIA JACOBO has been given the following list of follow-up instructions, prescriptions, and patient education materials: PATIENT FOLLOW-UP INFORMATION Diet: Regular Discharge Activity: Ambulate as tolerated Discharge Restrictions: No restrictions Wound Care Instructions: Remove Your Dressing In Days Call Your Doctor For: IF UNABLE TO CONTACT YOUR PHYSICIAN AND YOU FEEL IT IS AN EMERGENCY, GO TO THE NEAREST EMERGENCY ROOM OR CALL 911 Home Treatment: Devices/Equipment: None Special Services: Additional Instructions: - Use front wheeled walker with ambulation Primary Care Physician to provide the following pending test results: None Follow up: With: Address: When: Dorie Luis [address] [place] [phone] Business (2) 12/04/2024 7:45 AM Comments: Please bring proof of insurance to this hosptial follow up appointment. With: Address: When: Rene POSEY, SARAH Chin [phone] [address] Business (1) 01/28/2025 12:00 PM Comments: Please bring in proof of insurance to this hospital follow up appointment. With: Address: When: Orlando Sepulveda [address], [address] [place] [phone] Business (1) Within 2 weeks Comments: Multilevel foraminal and canal narrowing. Call for followup appointment In the event that this physician does not participate in your insurance network, please consult with your insurance company to find a nearby participating provider. Type Location Start Finish State Vascular New Patient (FT) FT.Vascular Clinic 12/03/2024 11:00 AM 12/03/2024 11:15 AM Confirmed [facility]04[facility]2024 7:45 AM 12/04/2024 8:15 AM Confirmed Cardiology Follow Up (FT) FT.Cardiology Clinic 12/14/2024 1:00 PM 12/14/2024 1:15 PM Confirmed FM Open [facility] 01/07/2025 1:00 PM 01/07/2025 1:15 PM Confirmed FM Medicare Wellness Subsequent [facility] [place] 06/18/2025 2:30 PM 06/18/2025 3:30 PM Confirmed Comment: DONNELL Green ALICE, have received the attached patient education materials/instructi ons and have verbalized understanding: Patient Signature Date Clinican/Nurse Signature Date HERE ARE THE MEDICATION CHANGES THAT OCCURRED DURING YOUR HOSPITAL STAY Medications to Continue with No Changes Other Medications acetaminophen (acetaminophen 325 mg Tab) 2 Tablets By Mouth every 6 hours as needed Pain. Last Dose: Next Dose: albuterol (Albuterol (Eqv-ProAir HFA) 90 mcg/inh inhalation aerosol) 2 Puffs Inhalation every 4 hours as needed Shortness of breath or wheezing. as needed. Last Dose: Next Dose: alprazolam [...] times a day. Last Dose: Next Dose: carvedilol (carvedilol 12.5 mg Tab) 1 Tablets By Mouth 2 times a day. Refills: 2. Last Dose: Next Dose: isosorbide mononitrate (isosorbide mononitrate 30 mg ER Tab) 1 Tablets By Mouth 2 times a day. Refills: 6. Last Dose: Next Dose: lamotrigine (Lamictal 25 mg Tab) 3 Tablets By Mouth once a day (at bedtime). Last Dose: Next Dose: losartan (losartan 100 mg Tab) 1 Tablets By Mouth every day. Refills: 5. Last Dose: Next Dose: Misc Prescription (Handicap Placard, 5 years.) Handicap Placard, 5 years.. Refills: 0. Last Dose: Next Dose: nitroglycerin (nitr (more content not included)... [facility] Interdisciplinary Note - Layo e Manageron 11-26-2024 Interdisciplinary Note - Packager Head Interdisciplinary Note - Packager Head Patient is off unit for MRI at this time. No family in room. PT has on whiteboard recommendations for OPPT and to use FWW. CRM roma see later and will get updates form Layne VELEZ who will see her today. CRM spoke with patient in room. Patient is alert and oriented and participates in discharge planning. No family in room. Patient white board updated, and CRM contact information provided. Discussed CRM spoke with Layne VELEZ who saw patient earlier today and she will discharge home today. Patient verified PCP, insurance and DME. Patient is form home with 2 daughters and DIL and her family. Family will transport at dc. Patient denies any needs at dc and declines need for H/H care. PT recommended OPPT and a FWW and she is agreeable and has a FWW at home. [facility] Comment on above: Result Comment: Elec tronically Signed By: [place] LY, Pavithra\.br\Date and Time Signed: 11/26/24 12:48 EST MRI Spine Lumbar w/ + w/o Co ntraston 11-26-2024 MRI Spine Lumbar w/ + w/o Contrast Exam Date/Time: 11/26/2024 10:31 EST Reason for Exam: Other (please specify) Report IMPRESSION: Postsurgical and multilevel degenerative changes of the lumbar spine as discussed. HISTORY: Recent fall. Back pain. History of prior fusion. TECHNIQUE: Routine lumbosacral spine MR protocol without and with intravenous gadolinium. Unless otherwise stated, incidental findings in this report do not require further routine follow-up imaging. COMPARISON: CT 11/24/2024. CT 10/10/2024. RESULT: Counting reference: Lumbosacral junction. For the purposes of this report, L5-S1 is considered the last well-formed disc space. Alignment: Alignment grossly unchanged. Levoscoliosis, unchanged. Minimal retrolisthesis of L1 on L2. Bone marrow signal/fracture: No evidence for recent fracture. No suspicious enhancement after contrast. Areas of endplate degenerative signal especially at L1-L2. Changes from posterior decompression and prior fusion from L4 through S1, grossly similar to prior. Chronic appearing mild wedge deformity of L1. Conus: The conus is within normal limits of signal intensity and morphology. Paraspinal soft tissues: Grossly unchanged from the recent CT. Areas of subcutaneous edema posteriorly. Lower thoracic spine: Degenerative changes with disc bulges and facet degenerative changes without high-grade canal or foraminal narrowing. T12-L1: Disc bulge. Facet degenerative changes. No significant canal or foraminal narrowing. L1-L2: Disc height loss. End plate osteophytes. Broad-based disc bulge. Possible small superimposed protrusion left foraminal region. Facet degenerative changes. Ligamentous hypertrophy. Moderate canal narrowing. Moderate to severe left and moderate right foraminal narrowing. L2-L3: Disc height loss. Broad-based disc bulge. Endplate osteophytes. Annular fissure. Facet degenerative changes. Ligamentous hypertrophy. Moderate canal narrowing with moderate bilateral foraminal narrowing. L3-L4: Broad-based disc bulge. Endplate osteophytes. Facet degenerative changes. Ligament hypertrophy. Moderate to severe canal narrowing with mild to moderate Report bilateral foraminal narrowing. L4-L5: Postsurgical changes. Annular fissure. No high-grade canal or foraminal narrowing. L5-S1: Postsurgical changes. No high-grade canal or foraminal narrowing. Sacrum and iliac wings: The visualized sacrum and iliac wings are unremarkable. The presacral soft tissues are unremarkable. Ordering Provider: Alec LUTHER FINAL REPORT Dictated: 11/26/2024 10:53 am Silas Chen MD Signed (Electronic Signature): 11/26/2024 10:53 am Signed by: Silas Chen MD Transcribed by: JEANINE Technologist: ELZA Technical Comments [employer] Contrast amount in ml's: 7.5 Normal [facility] eGFRon 11-26-2024 eGFR 96 mL/min/1.73 m2 Normal >=59 [facility] Comment on above: Performed By: #### 1 [id number] ####[facility] [address] [place] [address] ABO/Rh History Checkon 11-25 ABO/Rh History Check Type verified by second s Normal [facility] Comment on above: Performed By: #### 1 [id number] #### [facility] [address] [place] [address] ABO/Rh Retypeon 11-25-2024 ABO/Rh Retype Interp Positive Invalid Interpretation Code [facility] Comment on above: Performed By: #### 1 [id number] #### [facility] [address] [place] [address] BLOOD BANKOrdered By: Jenna Irvin on 11-25-2024 ABO/Rh Retype Interp Positive Invalid Interpretation Code [facility] [place] Subsection BMPon 11-25-2024 Anion gap [Moles/Vol] 14 mmol/L Normal 6-16 [facility] Comment on above: Performed By: #### 2 [id number] #### [facility] [address] [place] [address] Calcium [Mass/Vol] 8.7 mg/dL Low 8.9-11.1 [facility] Comment on above: Performed By: #### 2 [id number] #### [facility] [address] [place] [address] Chloride [Moles/Vol] 105 mmol/L Normal 101-111 [facility] Comment on above: Performed By: #### 2 [id number] #### [facility] [address] [place] [address] CO2 [Moles/Vol] 24 mmol/L Normal 21-31 [facility] Comment on above: Performed By: #### 2 [id number] #### [facility] [address] [place] [address] Creatinine [Mass/Vol] 0.6 mg/dL Normal 0.5-1.3 [facility] Comment on above: Performed By: #### 2 [id number] #### [facility] [address] [place] [address] Glucose [Mass/Vol] 93 mg/dL Normal 55-199 [facility] Comment on above: Performed By: #### 2 [id number] #### [facility] [address] [place] [address] Potassium [Moles/Vol] 3.4 mmol/L Low 3.5-5.3 [facility] Comment on above: Performed By: #### 2 [id number] #### [facility] [address] [place] [address] Sodium [Moles/Vol] 140 mmol/L Normal 135-145 [facility] Comment on above: Performed By: #### 2 [id number] #### [facility] [address] [place] [address] Urea nitrogen [Mass/Vol] 12 mg/dL Normal 5-21 [facility] Comment on above: Performed By: #### 2 [id number] #### [facility] [address] [place] [address] Urea nitrogen/Creatinine [Mass ratio] 20 No Units Normal 10-20 [facility] Comment on above: Performed By: #### 2 [id number] #### [facility] [address] [place] [address] CBC w/ Auto Diffon 5 Basophils/100 WBC (Bld) 0.8 % Normal 0.0-2.0 [facility] Comment on above: Performed By: #### 2 [id number] #### [facility] [address] [place] [address] Basophils/Leukocytes Auto (Bld) [Pure # fraction] 0.0 E9/L Normal 0.0-0.2 [facility] Comment on above: Performed By: #### 2 [id number] #### [facility] [address] [place] [address] Eosinophils (Bld) [#/Vol] 0.1 E9/L Normal 0.0-0.5 [facility] Comment on above: Performed By: #### 2 [id number] #### [facility] [address] [place] [address] Eosinophils/100 WBC (Bld) 3.3 % Normal 0.0-8.0 [facility] Comment on above: Performed By: #### 2 [id number] #### [facility] [address] [place] [address] Erythrocyte distribution width (RBC) [Ratio] 13.6 % Normal 10.9-14.2 [facility] Comment on above: Performed By: #### 2 [id number] #### [facility] [address] [place] [address] Hematocrit (Bld) [Volume fraction] 42.0 % Normal 34.0-46.0 [facility] Comment on above: Performed By: #### 2 [id number] #### [facility] [address] [place] [address] Hemoglobin (Bld) [Mass/Vol] 14.6 g/dL Normal 12.0-16.0 [facility] Comment on above: Performed By: #### 2 [id number] #### [facility] [address] [place] [address] Lymphocytes (Bld) [#/Vol] 1.7 E9/L Normal 1.0-4.0 [facility] Comment on above: Performed By: #### 2 [id number] #### [facility] [address] [place] [address] Lymphocytes/100 WBC (Bld) 47.4 % Normal 14.0-50.0 [facility] Comment on above: Performed By: #### 2 [id number] #### [facility] [address] [place] [address] MCH (RBC) [Entitic mass] 33.6 pg Normal 27.0-34.0 [facility] Comment on above: Performed By: #### 2 [id number] #### [facility] [address] [place] [address] MCHC (RBC) [Mass/Vol] 34.8 g/dL Normal 31.4-36.0 [facility] Comment on above: Performed By: #### 2 [id number] #### [facility] [address] [place] [address] MCV (RBC) [Entitic vol] 96.5 fL Normal 80.0-100.0 [facility] Comment on above: Performed By: #### 2 [id number] #### [facility] [address] [place] [address] Monocytes (Bld) [#/Vol] 0.4 E9/L Normal 0.2-1.0 [facility] Comment on above: Performed By: #### 2 [id number] #### [facility] [address] [place] [address] Neutrophils (Bld) [#/Vol] 1.3 E9/L Low 2.0-7.5 [facility] Comment on above: Performed By: #### 2 [id number] #### [facility] [address] [place] [address] Neutrophils/100 WBC (Bld) 36.6 % Normal 36.0-75.0 [facility] Comment on above: Performed By: #### 2 [id number] #### [facility] [address] [place] [address] Platelet 187.0 E9/L Normal 150.0-500.0 [facility] Comment on above: Performed By: #### 2 [id number] #### [facility] [address] [place] [address] Platelet mean volume (Bld) [Entitic vol] 7.8 fL Normal 6.4-10.8 [facility] Comment on above: Performed By: #### 2 [id number] #### [facility] [address] [place] [address] RBC (Bld) [#/Vol] 4.3 E12/L Normal 4.3-5.9 [facility] Comment on above: Performed By: #### 2 [id number] #### [facility] [address] [place] [address] WBC corrected for nucl RBC Auto (Bld) [#/Vol] 3.6 E9/L Low 4.0-11.0 [facility] Comment on above: Result Comment: Ciara pheral smear review performed. Performed By: #### 2 [id number] #### [facility] [address] [place] [address] CHEMISTRYOrdered By: SYSTEM SYSTEM on 11-25-2024 Anion gap [Moles/Vol] 14 mmol/L Normal 6 - 16 mEq/L [facility] Calcium [Mass/Vol] 8.7 mg/dL Low 8.9 - 11.1 mg/dL [facility] Chloride [Moles/Vol] 105 mmol/L Normal 101 - 111 mmol/ L [facility] CO2 [Moles/Vol] 24 mmol/L Normal 21 - 31 mmol/L Remis ol Chem Cobalamin (Vitamin B12) [Mass/Vol] 139 pg/mL Normal 50 - 1500 pg/mL [facility] Creatinine [Mass/Vol] 0.6 mg/dL Normal 0.5 - 1.3 mg/dL [facility] Chem eGFR 99 mL/min/1.73 m2 Normal >=59mL/min/1.73 m2 [facility] Folate [Mass/Vol] 7.9 ng/mL Normal >=6.7ng/mL [facility] Glucose [Mass/Vol] 93 mg/dL Normal 55 - 199 mg/dL Re misol Chem Potassium [Moles/Vol] 3.4 mmol/L Low 3.5 - 5.3 mmol/L [facility] Sodium [Moles/Vol] 140 mmol/L Normal 135 - 145 mmol/L [facility] TSH Qn 4.04 m[IU]/L Normal 0.34 - 5.60 mcIU/mL [facility] Urea nitrogen [Mass/Vol] 12 mg/dL Normal 5 - 21 mg/dL [facility] Urea nitrogen/Creatinine [Mass ratio] 20 mg/mg Normal 10 - [address] Abdomen/Pelvis w/ Contras ton 11-25-2024 CT Abdomen/Pelvis w/ Contrast Exam Date/Time: 11/24/2024 19:06 EST Reason for Exam: Abdominal trauma;Other (please specify) Report PLEASE SEE CT Chest w/ Contrast REPORT DATED: 11/24/2024. All CT scans at this facility use dose modulation, iterative reconstruction, and/or weight based dosing when appropriate to reduce radiation dose to as low as reasonably achievable. Ordering Provider: Lawrence Elise FINAL REPORT Dictated: 11/25/2024 9:21 am Venancio Jean Baptiste MD Signed (Electronic Signature): 11/25/2024 9:21 am Signed by: Venancio Jean Baptiste MD Transcribed by: JEANINE Technologist: NATHALIA Technical Comments GFR (mL/min/1/73m2) 96 Contrast: Isovue 300 Contrast amount in ml's: [address] [facility] [address] Chest w/ Contraston 11-25 CT Chest w/ Contrast Exam Date/Time: 11/24/2024 19:06 EST Reason for Exam: Chest trauma, mod-severe;Other (please specify) Report IMPRESSION: NO ACUTE FRACTURE OR SIGNIFICANT POSTTRAUMATIC COMPLICATION IDENTIFIED. EXAM: CT Chest w/ Contrast, CT Abdomen/Pelvis w/ Contrast, CT Spine Thoracic, CT Spine Lumbar DATE: 11/24/2024 7:04 PM CLINICAL HISTORY: Chest trauma, mod-severe. COMPARISON: None available. TECHNIQUE: Spiral imaging was obtained of the chest, abdomen and pelvis after the infusion of approximately 130 mL of Isovue 300 contrast. Routine multiplanar reformatted reconstructions were performed; including dedicated reconstructions of the thoracic and lumbar spine. All CT scans at this facility use dose modulation, iterative reconstruction, and/or weight based dosing when appropriate to reduce radiation dose to as low as reasonably achievable. Unless otherwise stated, incidental findings identified in this report do not require routine follow-up imaging. CHEST CT FINDINGS: Lungs and pleura: Mild to moderate probable scarring of the anteromedial mid to lower lung zones. No evidence of pulmonary contusion, pleural effusion, or pneumothorax. Mediastinum and lymph nodes: No pathologically enlarged mediastinal, hilar, or axillary lymph nodes. Heart: Not enlarged. Coronary artery calcifications and/or stents are present. No significant pericardial effusion. Thoracic aorta: Normal in caliber with mild to moderate atherosclerotic plaquing. There is no dissection. Pulmonary arteries: Normal in caliber without central filling defects identified to suggest significant pulmonary emboli. Thyroid: Unremarkable. Esophagus: Unremarkable. Musculoskeletal: No acute osseous findings identified. ABDOMEN AND PELVIS CT FINDINGS: Liver: No enlargement, significant fatty infiltration, suspicious mass or lesion. Approximately 8 mL suspected hemangioma within the inferolateral left lobe. Biliary: The gallbladder has been removed. Mild to moderate predominantly extrahepatic biliary dilatation, most consistent with chronic reservoir effect. Report Pancreas: No suspicious mass, organized fluid collection, surrounding inflammation, or abnormal pancreatic ductal dilatation. Spleen: Unremarkable. Adrenals: Unremarkable. Kidneys: No hydronephrosis, significant urinary tract calculi, or suspicious mass. GI tract: No abnormal dilation or wall thickening. Lymph nodes: No pathologically enlarged lymph nodes. Vasculature: No aneurysm or dissection. Mild to moderate calcified atherosclerotic plaquing. Mesentery/peritoneu m/retroperitoneum: No free fluid, organized fluid collection, hematoma, inflammatory changes, or suspicious mass. Pelvis: The urinary bladder is unremarkable. Previous hysterectomy. Musculoskeletal: No acute osseous findings identified. THORACIC SPINE CT FINDINGS: There is no fracture, dislocation, evidence of instability, or acute paraspinal soft tissue abnormalities identified. Mild degenerative changes are present. LUMBAR SPINE CT FINDINGS: There is no acute fracture, dislocation, evidence of instability, or acute paraspinal soft tissue abnormalities identified. A minimal chronic compression deformity of the superior endplate of L1, postoperative and moderate degenerative changes are noted. Ordering Provider: Lawrence Elise FINAL REPORT Dictated: 11/25/2024 9:21 am Venancio Jean Baptiste MD Signed (Electronic Signature): 11/25/2024 9:21 am Signed by: Venancio Jean Baptiste MD Transcribed by: JEANINE Technologist: NATHALIA Technical Comments GFR (mL/min/1/73m2) 96 Contrast: Isovue 300 Contrast amount in ml's: 130 Normal [facility] CT Head or Brain w/o Contras ton 11-25-2024 CT Head or Brain w/o Contrast Exam Date/Time: 11/24/2024 17:56 EST Reason for Exam: HEAD TRAUMA, MOD-SEVERE;Other (please specify) Report IMPRESSION: NO ACUTE INTRACRANIAL PROCESS IDENTIFIED. EXAM: CT Head or Brain w/o Contrast DATE: 11/24/2024 5:41 PM CLINICAL HISTORY: HEAD TRAUMA, MOD-SEVERE. COMPARISON: None available. TECHNIQUE: Routine. All CT scans at this facility use dose modulation, iterative reconstruction, and/or weight based dosing when appropriate to reduce radiation dose to as low as reasonably achievable. FINDINGS: There is no intracranial hemorrhage, mass effect, midline shift, extra-axial collection, evidence of hydrocephalus, skull fracture, or a recent ischemic infarct identified. There is no significant atrophy or white matter changes, for age. The mastoid air cells and visualized paranasal sinuses are essentially clear. Ordering Provider: Lawrence Elise FINAL REPORT Dictated: 11/25/2024 8:50 am Venancio Jean Baptiste MD Signed (Electronic Signature): 11/25/2024 8:50 am Signed by: Venancio Jean Baptiste MD Transcribed by: JEANINE Technologist: NATHALIA [facility] CT Spine Cervical w/o Contrmilena millan 11-25-2024 CT Spine Cervical w/o Contrast Exam Date/Time: 11/24/2024 17:56 EST Reason for Exam: NECK TRAUMA, DANGEROUS INJURY MECHANISM;Trauma Report IMPRESSION: NO FRACTURE OR EVIDENCE OF CERVICAL SPINE INJURY IDENTIFIED. EXAM: CT Spine Cervical w/o Contrast DATE: 11/24/2024 5:41 PM CLINICAL HISTORY: Trauma, NECK TRAUMA, DANGEROUS INJURY MECHANISM. COMPARISON: None available. TECHNIQUE: Spiral unenhanced imaging was obtained of the cervical spine, with routine reconstructions performed. All CT scans at this facility use dose modulation, iterative reconstruction, and/or weight based dosing when appropriate to reduce radiation dose to as low as reasonably achievable. FINDINGS: The spine is visualized from the craniovertebral junction through the T1-T2 level. There is no fracture, dislocation, or acute paraspinal soft tissue abnormalities identified. 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 No high-grade central spinal stenosis. Ordering Provider: Lawrence Elise FINAL REPORT Dictated: 11/25/2024 8:52 am Venancio Jean Baptiste MD Signed (Electronic Signature): 11/25/2024 8:52 am Signed by: Venancio Jean Baptiste MD Transcribed by: JEANINE Technologist: NATHALIA Hannon [facility] EMS Documentationon 11-25-19 EMS Documentation Report Please click on link to see report Normal [facility] Comment on above: Result Comment: Miss ing Attachment - total size limit for all attachments exceeded [id number] Can be viewed in source system Folateon 11-25-2024 Folate [Mass/Vol] 7.9 ng/mL Normal >=6.7 [facility] Comment on above: Performed By: #### 2 [id number] #### [facility] [address] [place] [address] HEMATOLOGYOrdered By: SYSTEM SYSTEM on 11-25-2024 Basophils/100 WBC (Bld) 0.8 % Normal 0.0 - 2.0 % [facility] Basophils/Leukocytes Auto (Bld) [Pure # fraction] 0.0 E9/L Normal 0.0 - 0.2 E9/L [facility] Eosinophils (Bld) [#/Vol] 0.1 E9/L Normal 0.0 - 0.5 E9/L [facility] Eosinophils/100 WBC (Bld) 3.3 % Normal 0.0 - 8.0 % [facility] Erythrocyte distribution width (RBC) [Ratio] 13.6 % Normal 10.9 - 14.2 % [facility] Hematocrit (Bld) [Volume fraction] 42.0 % Normal 34.0 - 46.0 % [facility] Hemoglobin (Bld) [Mass/Vol] 14.6 g/dL Normal 12.0 - 16.0 gm/dL [facility] Lymphocytes (Bld) [#/Vol] 1.7 E9/L Normal 1.0 - 4.0 E9/L [facility] Lymphocytes/100 WBC (Bld) 47.4 % Normal 14.0 - 50.0 % [facility] MCH (RBC) [Entitic mass] 33.6 pg Normal 27.0 - 34.0 pg [facility] MCHC (RBC) [Mass/Vol] 34.8 g/dL Normal 31.4 - 36.0 gm/dL [facility] MCV (RBC) [Entitic vol] 96.5 fL Normal 80.0 - 100.0 fL [facility] Monocytes (Bld) [#/Vol] 0.4 E9/L Normal 0.2 - 1.0 E9/L [facility] Monocytes/100 WBC (Bld) 11.9 % Normal 4.0 - 14.0 % [facility] Neutrophils (Bld) [#/Vol] 1.3 E9/L Low 2.0 - 7.5 E9/L [facility] Neutrophils/100 WBC (Bld) 36.6 % Normal 36.0 - 75.0 % [facility] Platelet 187.0 E9/L Normal 150.0 - 500.0 E9/L Remiso l [facility]e Platelet mean volume (Bld) [Entitic vol] 7.8 fL Normal 6.4 - 10.8 fL [facility] RBC (Bld) [#/Vol] 4.3 E12/L Normal 4.3 - 5.9 E12/L Re misol Heme WBC corrected for nucl RBC Auto (Bld) [#/Vol] 3.6 E9/L Low 4.0 - 11.0 E9/L [facility] Comment on above: Result Comment: Ciara pheral smear review performed. Interdisciplinary Note - Montserrat n 11-25-2024 Interdisciplinary Note - OT Interdisciplinary Note - OT 11/25/23: MRI results still pending, will await results prior to mobilizing. Will check back 11/26/23. Normal [facility] TSH With T4fr Reflexon 11-25 TSH Qn 4.04 m[IU]/L Normal 0.34-5.60 [facility] Comment on above: Performed By: #### 1 [id number] #### [facility] [address] [place] [address] Vit B12on 11-25-2024 Cobalamin (Vitamin B12) [Mass/Vol] 139 pg/mL Normal 50-1500 [facility] Comment on above: Performed By: #### 2 [id number] #### [facility] [address] [place] [address] XR Shoulder Complete Righton 11-25-2024 XR Shoulder Complete Right Exam Date/Time: 11/24/2024 18:05 EST Reason for Exam: Pain, Traumatic Report IMPRESSION: NO DISPLACED FRACTURE OR SIGNIFICANT POSTTRAUMATIC COMPLICATION IDENTIFIED. EXAM: XR Shoulder Complete Right DATE: 11/24/2024 5:54 PM CLINICAL HISTORY: Pain, Traumatic. COMPARISON: None available. TECHNIQUE: AP, internal and external rotation AP, and transscapular radiographs of the right shoulder were obtained. FINDINGS: There is no fracture, dislocation, acromioclavicular joint separation, significant narrowing of the subacromial space, pathologic calcifications, or other posttraumatic complication identified. Mild degenerative changes predominantly of the acromioclavicular joint. Ordering Provider: Lawrence Elise FINAL REPORT Dictated: 11/25/2024 8:53 am Venancio Jean Baptiste MD Signed (Electronic Signature): 11/25/2024 8:53 am Signed by: Venancio Jean Baptiste MD Transcribed by: JEANINE Technologist: NANCI Technical Comments Radiation Dose: Ka,r in mGy = . DAP = . Normal [facility] eGFRon 11-25-2024 eGFR 99 mL/min/1.73 m2 Normal >=59 [facility] Comment on above: Performed By: #### 1 [id number] #### [facility] [address] [place] [address] ABO/Rhon 11-24-2024 ABO/Rh Positive Invalid Interpretation Code [facility] Comment on above: Performed By: #### 2 [id number] #### [facility] [address] [place] [address] ABSCon 11-24-2024 ABSC Gel Interp Negative Normal [facility] Comment on above: Performed By: #### 1 [id number] #### [facility] [address] [place] [address] BLOOD BANKOrdered By: Erika Farrell on 11-24-2024 ABO/Rh Interp Positive Invalid Interpretation Code [facility] Subsection ABSC Gel Interp Negative (11/24/24 5:34 PM) Normal [facility] [place] Subsection BMPon 11-24-2024 Anion gap [Moles/Vol] 8 mmol/L Normal 6-16 [facility] Comment on above: Performed By: #### 2 [id number] #### [facility] [address] [place] [address] Calcium [Mass/Vol] 8.9 mg/dL Normal 8.9-11.1 [facility] Comment on above: Performed By: #### 2 [id number] #### [facility] [address] [place] [address] Chloride [Moles/Vol] 105 mmol/L Normal 101-111 [facility] Comment on above: Performed By: #### 2 [id number] #### [facility] [address] [place] [address] CO2 [Moles/Vol] 30 mmol/L Normal 21-31 [facility] Comment on above: Performed By: #### 2 [id number] #### [facility] [address] [place] [address] Creatinine [Mass/Vol] 0.7 mg/dL Normal 0.5-1.3 [facility] Comment on above: Performed By: #### 2 [id number] #### [facility] [address] [place] [address] Glucose [Mass/Vol] 89 mg/dL Normal 55-199 [facility] Comment on above: Performed By: #### 2 [id number] #### [facility] [address] [place] [address] Potassium [Moles/Vol] 3.6 mmol/L Normal 3.5-5.3 [facility] Comment on above: Performed By: #### 2 [id number] #### [facility] [address] [place] [address] Sodium [Moles/Vol] 139 mmol/L Normal 135-145 [facility] Comment on above: Performed By: #### 2 [id number] #### [facility] [address] [place] [address] Urea nitrogen [Mass/Vol] 11 mg/dL Normal 5-21 [facility] Comment on above: Performed By: #### 2 [id number] #### [facility] [address] [place] [address] Urea nitrogen/Creatinine [Mass ratio] 16 No Units Normal 10-20 [facility] Comment on above: Performed By: #### 2 [id number] #### [facility] [address] [place] [address] Blood Bank ID#on 11-24-2024 BBID# [id number] Invalid Interpretation Code [facility] Comment on above: Performed By: #### 1 [id number] #### [facility] [address] [place] [address] CBC w/ Auto Diffon Basophils/100 WBC (Bld) 0.8 % Normal 0.0-2.0 [facility] Comment on above: Performed By: #### 2 [id number] #### [facility] [address] [place] [address] Basophils/Leukocytes Auto (Bld) [Pure # fraction] 0.0 E9/L Normal 0.0-0.2 [facility] Comment on above: Performed By: #### 2 [id number] #### [facility] [address] [place] [address] Eosinophils (Bld) [#/Vol] 0.1 E9/L Normal 0.0-0.5 [facility] Comment on above: Performed By: #### 2 [id number] #### [facility] [address] [place] [address] Eosinophils/100 WBC (Bld) 2.6 % Normal 0.0-8.0 [facility] Comment on above: Performed By: #### 2 [id number] #### [facility] [address] [place] [address] Erythrocyte distribution width (RBC) [Ratio] 13.2 % Normal 10.9-14.2 [facility] Comment on above: Performed By: #### 2 [id number] #### [facility] [address] [place] [address] Hematocrit (Bld) [Volume fraction] 42.4 % Normal 34.0-46.0 [facility] Comment on above: Performed By: #### 2 [id number] #### [facility] [address] [place] [address] Hemoglobin (Bld) [Mass/Vol] 14.8 g/dL Normal 12.0-16.0 [facility] Comment on above: Performed By: #### 2 [id number] #### [facility] [address] [place] [address] Lymphocytes (Bld) [#/Vol] 1.7 E9/L Normal 1.0-4.0 [facility] Comment on above: Performed By: #### 2 [id number] #### [facility] [address] [place] [address] Lymphocytes/100 WBC (Bld) 40.2 % Normal 14.0-50.0 [facility] Comment on above: Performed By: #### 2 [id number] #### [facility] [address] [place] [address] MCH (RBC) [Entitic mass] 33.8 pg Normal 27.0-34.0 [facility] Comment on above: Performed By: #### 2 [id number] #### [facility] [address] [place] [address] MCHC (RBC) [Mass/Vol] 34.8 g/dL Normal 31.4-36.0 [facility] Comment on above: Performed By: #### 2 [id number] #### [facility] [address] [place] [address] MCV (RBC) [Entitic vol] 97.4 fL Normal 80.0-100.0 [facility] Comment on above: Performed By: #### 2 [id number] #### [facility] [address] [place] [address] Monocytes (Bld) [#/Vol] 0.4 E9/L Normal 0.2-1.0 [facility] Comment on above: Performed By: #### 2 [id number] #### [facility] [address] [place] [address] Neutrophils (Bld) [#/Vol] 1.9 E9/L Low 2.0-7.5 [facility] Comment on above: Performed By: #### 2 [id number] #### [facility] [address] [place] [address] Neutrophils/100 WBC (Bld) 46.5 % Normal 36.0-75.0 [facility] Comment on above: Performed By: #### 2 [id number] #### [facility] [address] [place] [address] Platelet mean volume (Bld) [Entitic vol] 7.7 fL Normal 6.4-10.8 [facility] Comment on above: Performed By: #### 2 [id number] #### [facility] [address] [place] [address] Platelets (Bld) [#/Vol] 185.0 E9/L Normal 150.0-500.0 [facility] Comment on above: Performed By: #### 2 [id number] #### [facility] [address] [place] [address] RBC (Bld) [#/Vol] 4.4 E12/L Normal 4.3-5.9 [facility] Comment on above: Performed By: #### 2 [id number] #### [facility] [address] [place] [address] WBC corrected for nucl RBC Auto (Bld) [#/Vol] 4.1 E9/L Normal 4.0-11.0 [facility] Comment on above: Performed By: #### 2 [id number] #### [facility] [address] [place] [address] CHEMISTRYOrdered By: SYSTEM SYSTEM on 11-24-2024 Amphetamines Screen method >1000 ng/mL Ql (U) NEGATIVE 7 (11/24/24 7:51 PM) Normal NEGATIVE [facility] Comment on above: Interpretive Data: N egative Cutoff: <1000 ng/mL Barbiturates Screen Ql (U) NEGATIVE 8 (11/24/24 7:51 PM) Normal NEGATIVE [facility] Comment on above: Interpretive Data: N egative Cutoff: <200 ng/mL Benzodiazepines Ql (U) POSITIVE 1 *ABN* (11/24/24 7:51 PM) Invalid Interpretation Code NEGATIVE [facility] Comment on above: Interpretive Data: N egative Cutoff: <200 ng/mL Cannabinoids Screen Ql (U) NEGATIVE 6 (11/24/24 7:51 PM) Normal NEGATIVE [facility] Comment on above: Interpretive Data: N egative Cutoff: <50 ng/mL Cocaine Ql (U) NEGATIVE 2 (11/24/24 7:51 PM) Normal NEGATIVE [facility] Comment on above: Interpretive Data: N egative Cutoff: <300 ng/mL Opiates Screen Ql (U) NEGATIVE 4 (11/24/24 7:51 PM) Normal NEGATIVE [facility] Comment on above: Interpretive Data: N egative Cutoff: <300 ng/mL Phencyclidine Screen method >25 ng/mL Ql (U) NEGATIVE 5 (11/24/24 7:51 PM) Normal NEGATIVE [facility] Comment on above: Interpretive Data: N egative Cutoff: <25 ng/mL These drug screen results are to be used for medical (i.e., treatment) purposes only. Unconfirmed drug screening results must not be used for non-medical purposes (e.g., employment testing, legal testing). U Fentanyl NEGATIVE 14 (11/24/24 7:51 PM) Normal NEGATIVE [facility] Comment on above: Interpretive Data: N egative Cutoff: <5 ng/mL These drug screen results are to be used for medical (i.e., treatment) purposes only. Unconfirmed drug screening results must not be used for non-medical purposes (e.g., employment testing, legal testing). Albumin [Mass/Vol] 3.8 g/dL Normal 3.3 - 5.0 gm/dL R emisol Chem Albumin/Globulin [Mass ratio] 1.4 {ratio} Normal 1.1 - 2.2 [facility] ALP [Catalytic activity/Vol] 91 [iU]/d Normal 21 - 98 Int._Unit/L [facility] Chem ALT No additional P-5'-P [Catalytic activity/Vol] 9 [iU]/d Normal 6 - 46 Int._Unit/L [facility] Anion gap [Moles/Vol] 8 mmol/L Normal 6 - 16 mEq/L [facility] AST [Catalytic activity/Vol] 15 [iU]/d Normal 5 - 43 Int._Unit/L [facility] Bilirubin [Mass/Vol] 0.6 mg/dL Normal 0.0 - 1.1 mg/dL [facility] Bilirubin.direct [Mass/Vol] 0.1 mg/dL Normal 0.0 - 0.4 mg/dL [facility] Bilirubin.indirect [Mass or moles/Vol] 0.5 mg/dL Normal 0.1 - 0.9 mg/dL [facility] Calcium [Mass/Vol] 8.9 mg/dL Normal 8.9 - 11.1 mg/dL [facility] Chloride [Moles/Vol] 105 mmol/L Normal 101 - 111 mmol/ L [facility] CO2 [Moles/Vol] 30 mmol/L Normal 21 - 31 mmol/L Remis ol Chem Creatinine [Mass/Vol] 0.7 mg/dL Normal 0.5 - 1.3 mg/dL [facility] eGFR 96 mL/min/1.73 m2 Normal >=59mL/min/1.73 m2 [facility] Ethanol Lvl mg/dL Normal <=11mg/dL [facility] Globulin (S) [Mass/Vol] 2.8 g/dL Normal 1.4 - 4.0 gm/dL [facility] Glucose [Mass/Vol] 89 mg/dL Normal 55 - 199 mg/dL Re misol Chem Lactic Acid Lvl 0.7 mmol/L Normal 0.5 - 2.2 mmol/L Rem isol Chem Lipase [Catalytic activity/Vol] 11 U/L Low 13 - 58 unit/L [facility] Potassium [Moles/Vol] 3.6 mmol/L Normal 3.5 - 5.3 mmol/L [facility] Chem Protein [Mass/Vol] 6.6 g/dL Normal 6.0 - 7.8 gm/dL R emisol Chem Sodium [Moles/Vol] 139 mmol/L Normal 135 - 145 mmol/L [facility] Chem Troponin HS 7.10 pg/mL Low 10.10 - 27.10 pg/mL [facility] Comment on above: Interpretive Data: T he 95% CI (Confidence Interval) PPV (Positive Predictive Value) for myocardial infarction in females is 38 pg/mL, in males 51 pg/mL. The results should be used in conjunction with clinical conditions of myocardial infarction. (Access High Sensitivity Troponin I Instructions For Use, Shivani Margo, June 2018) Urea nitrogen [Mass/Vol] 11 mg/dL Normal 5 - 21 mg/dL [facility] Urea nitrogen/Creatinine [Mass ratio] 16 mg/mg Normal 10 - 20 [facility] COAGULATIONOrdered By: Elli sidney Kelley on 11-24-2024 aPTT Coag (PPP) [Time] 32.3 s Normal 25.1 - 36.5 second(s) [facility] [facility] Comment on above: Interpretive Data: P arameter 15 days - 4 weeks 1 - [...] the same coagulation reagent and instrumentation as [facility] Currently there are no coagulation studies available worldwide for children to 14 days, and no normal ranges. Heparin therapeutic range (represented by Anti-Factor Xa activity of 0.2 - 0.4 U/mL) corresponds to PTT of 56.6 - 109.0 sec. INR Coag (PPP) [Relative time] 1.04 {INR} Invalid Interpretation Code [facility] Comment on above: Interpretive Data: I NR results are specifically intended to assess patients stabilized on long-term Anticoagulation therapy suggested INR s Less Intensive Anticoagulation 2.0 3.0 Conventional Range 3.0 4.5 PT Coag (PPP) [Time] 11.7 s Normal 9.4 - 1 2.5 second(s) [facility] Comment on above: Interpretive Data: [...] the same coagulation reagent and instrumentation as [facility] Currently there are no coagulation studies available worldwide for children to 14 days, and no normal ranges. ED Clinical Summaryon 2024 ED Clinical Summary ED Clinical Summary [place] [id number] ED Clinical Summary Person Information [facility]: [facility] Age[facility] 64 Years : 1960 Sex: Female Language: Honduran PCP: Dorie Luis MD Marital Status: Visit Id: Visit Reason: Scalp laceration; Fall; Shortness of breath; fall Speciality: Acuity: 2 Enc Type: Observation Med Service: Nursery Arrival: 11/24/2024 17:08:50 Discharge: LOS: 000 03:41 Checkin: 11/24/2024 17:08:50 Checkout: 11/24/2024 20:49:33 Dispo Type: Admitted as IP to [facility] EVENTS: Event Name Event Status Request Date/Time Start Date/Time Complete Date/Time Arrive Complete 11/24/2024 17:08:50 11/24/2024 17:08:50 11/24/2024 17:08:50 Document Home Meds Request 11/24/2024 17:08:50 Triage Complete 11/24/2024 17:08:50 11/24/2024 17:19:50 11/24/2024 17:19:50 Bed Assign Complete 11/24/2024 17:09:48 11/24/2024 17:09:48 11/24/2024 17:09:48 Dr Exam Complete 11/24/2024 17:09:48 11/24/2024 17:12:16 11/24/2024 17:12:16 RN Exam Complete 11/24/2024 17:09:48 11/24/2024 18:02:18 11/24/2024 18:02:18 EKG Complete 11/24/2024 17:10:47 11/24/2024 17:15:41 Registration Complete 11/24/2024 17:12:16 11/24/2024 19:15:02 11/24/2024 19:15:02 Patient Care Request 11/24/2024 17:17:04 NPO Request 11/24/2024 17:20:34 Pending Labs Inlab 11/24/2024 17:20:34 Lab Complete 11/24/2024 17:20:34 11/24/2024 20:21:45 Urine Collect Complete 11/24/2024 17:20:34 11/24/2024 20:21:45 RT Request 11/24/2024 17:20:34 Patient Care Request 11/24/2024 17:20:34 CT Complete 11/24/2024 17:20:34 11/24/2024 17:41:41 11/24/2024 17:56:54 Blood Collect Request 11/24/2024 17:20:34 X-Ray Complete 11/24/2024 17:20:34 11/24/2024 17:54:48 11/24/2024 18:05:54 Trauma II Request 11/24/2024 17:38:51 Pending Labs Complete 11/24/2024 17:39:51 11/24/2024 17:39:51 11/24/2024 18:06:44 Lab Complete 11/24/2024 17:39:51 11/24/2024 17:39:51 11/24/2024 18:06:44 Pending Labs Complete 11/24/2024 17:41:26 11/24/2024 17:41:26 11/24/2024 18:05:33 Lab Complete 11/24/2024 17:41:26 11/24/2024 17:41:26 11/24/2024 18:05:33 Pending Labs Complete 11/24/2024 17:53:11 11/24/2024 17:53:11 11/24/2024 17:53:11 Fall Risk Request 11/24/2024 18:02:19 Wet Read Complete 11/24/2024 18:05:54 11/24/2024 18:07:32 11/24/2024 18:07:32 CT Complete 11/24/2024 18:30:08 11/24/2024 19:06:35 Pending Labs Complete 11/24/2024 18:32:04 11/24/2024 19:58:43 Reg Complete Request 11/24/2024 19:15:02 Reg Bed Request Complete 11/24/2024 19:15:02 11/24/2024 19:15:02 11/24/2024 19:15:02 Dr Exam Complete 11/24/2024 19:21:44 11/24/2024 19:21:44 11/24/2024 19:21:44 Registration Start 11/24/2024 19:21:44 11/24/2024 19:49:03 Meds Admin Complete 11/24/2024 19:23:12 11/24/2024 19:41:12 Consult Request 11/24/2024 19:48:13 Hospitalist Consult Request 11/24/2024 19:48:13 Observation Request 11/24/2024 19:49:02 Patient Care Request 11/24/2024 19:49:02 Patient Care Request 11/24/2024 19:49:03 Patient Care Request 11/24/2024 19:49:03 Medicare Form Complete 11/24/2024 19:49:04 11/24/2024 20:05:08 Patient Care Request 11/24/2024 19:49:04 Patient Care Request 11/24/2024 19:49:05 Meds Admin Complete 11/24/2024 20:20:48 11/24/2024 20:31:36 Meds Admin Request 11/24/2024 20:36:44 ADDRESS: [address] [place] [id number] [facility] DOC NOTES: Addendum by Dioni Gallardo DO on November 24, 2024 20:44:22 EST MEDICAL INFORMATION: Prescriptions Given: Medications to Continue with No Changes Other Medications acetaminophen (acetaminophen 325 mg Tab) 2 Tablets By Mouth every 6 hours as needed Pain. albuterol (Albuterol (Eqv-ProAir HFA) 90 mcg/inh inhalation [...] Inhalation 2 times a day. carvedilol (carvedilol 12.5 mg Tab) 1 Tablets By Mouth 2 times a day. Refills: 2. isosorbide mononitrate (isosorbide mononitrate 30 mg ER Tab) 1 Tablets By Mouth 2 times a day. Refills: 6. lamotrigine (Lamictal 25 mg Tab) 3 Tablets By Mouth once a day (at bedtime). losartan (losartan 100 mg Tab) 1 Tablets By Mouth every day. Refills: [facility]. [facility] (Handicap Placard, 5 years.) [...] (Ranexa 500 mg Tab-ER) 1 Tablets By Mo (more content not included)... Normal [facility] ED Note-Physicianon 11-24-19 ED Note-Physician ED Note-Physician Basic Information Time Seen: Arik LUBINLawrence 11/24/2024 17:12 Chief Complaint pt was walking when she began to feel lightheaded and short of breath and fell. pt states she has been having dizzy spells for the last 3 weeks and has fallen several times sinec then. positive head strike, no LOC, yes thinners, pain in head. History of Present Illness 64 female presents emergency department by EMS after fall. Patient states that she was feeling lightheaded she was short of breath having a dizzy spell she fell to the ground and struck her head against a shelf. Then in doing so a glass jar fell off the shelf and then broke on her causing facial laceration as well as some small superficial lacerations to the palmar surfaces of her hand. Patient denies any current or recent chest pain she has had some shortness of breath denies any fevers but has had a cough. She denies any abdominal pain denies any nausea vomiting or diarrhea no urinary symptoms. Patient does not believe that she injured her upper or lower extremities but when I move her right arm she does complain of right shoulder pain. Tetanus has been updated within the last 5 years. Patient does complain of a headache she is on Effient denies any other blood thinners. No other aggravating or relieving factors no other associated symptoms no other prior treatments or complaints. Family: Reviewed and noncontributory Social: lives at home Review of systems negative unless otherwise specified in the HPI. Physical Exam Vitals & Measurements T: 36.7 ???C(Oral) HR: 74(Peripheral) RR: 16 BP: 184/98 SpO2: 93% HT: 162 cm WT: 79.9 kg BMI: 30.45 Nurses note and vital signs reviewed and noted. General: The patient appears well and in no apparent distress. Patient is resting comfortably on cart. GCS = 15. Skin: Warm, dry, no pallor noted. Laceration across the forehead however there is a lot of dried blood therefore on the initial cursory exam I was not able to get further accurate dimensions of the laceration we will come back and reexamine her. She also has some superficial abrasions on the palmar surfaces specifically on the right hand. Head: Normocephalic, atraumatic Neck: Supple, trachea mid-line, patient does complain of generalized tenderness to palpation diffusely about the cervical spine. C-collar intact from the prehospital setting. Eyes: PERRLA, EOMI ENT: No gaitan sign, no raccoon eyes, no blood in posterior oropharynx, no dental injuries Cardiovascular: Regular Rate and Rhythm, normal peripheral perfusion Respiratory: no distress, no accessory muscle use, no obvious wheezing Chest Wall: no tenderness, no flail chest, contusion, abrasion, or signs of trauma. Back: No focal tenderness to palpation diffusely about the dorsal region Musculoskeletal: Right upper extremity: Patient does complain of some tenderness diffusely about that right shoulder with some pain with range of motion. No focal tenderness to the remainder of the extremity no focal tenderness to the remainder of the bilateral lower extremities left upper extremity. Full range of motion is noted no deformity. GI: Soft, no tenderness to palpation, no masses appreciated. No rebound, guarding, or rigidity noted. 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 Psychiatric: Cooperative Procedure I did clean the wounds on the forehead. Patient does have some superficial abrasions but no deeper lacerations identified. Medical Decision Making C-collar cleared clinically and radiographically. Patient states that she is starting to have increasing pain in her thoracic area as well as her lumbar area therefore we will send her over for CT scan of chest abdomen pelvis to evaluate for any intrathoracic intra-abdominal injuries and also to visualize the thoracic and lumbar spine for injury as well. Initial head CT and C-spine are negative. Right shoulder x-ray is negative as well. Ultimately patient is signed out to the oncoming physician for final disposition and treatment plan. Assessment/Plan Back pain (M54.9: Dorsalgia, unspecified) Dizziness (R42: Dizziness and giddiness) Dyspnea (R06.00: Dyspnea, unspecified) Forehead abrasion (S00.81XA: Abrasion of other part of head, initial encounter) Head injury (S09.90XA: Unspecified injury of head, initial encounter) Orders: ABO/Rh ABO/Rh History Check Antibody Screen Basic Metabolic Panel Blood Bank ID# CBC w/ Auto Diff CT Abdomen/Pelvis w/ Contrast CT Chest w/ Contrast CT Head or Brain w/o Contrast CT Spine Cervical w/o Contrast Drug Screen Urine ED Cardiac Monitoring eGFR Ethanol Level Extra SST Tube Hepatic Function Panel Lactic Acid Lipase Level NPO Diet Oxygen Therapy PT & PTT Pulse Oximetry Continuous Saline Lock Insert Troponin XR Shoulder Complete Right Disposition Plan Discharge Prescription List Prescriptions No active prescription medications (more content not included)... [facility] Comment on above: Result Comment: Elec tronically Signed By: Dioni Gallardo DO\.br\Date and Time Signed: 11/24/24 20:44 EST ED Note-Physician ED Note-Physician Basic Information Time Seen: Lawrence Elise DO 11/24/2024 17:12 Chief Complaint pt was walking when she began to feel lightheaded and short of breath and fell. pt states she has been having dizzy spells for the last 3 weeks and has fallen several times sinec then. positive head strike, no LOC, yes thinners, pain in head. History of Present Illness 64 female presents emergency department by EMS after fall. Patient states that she was feeling lightheaded she was short of breath having a dizzy spell she fell to the ground and struck her head against a shelf. Then in doing so a glass jar fell off the shelf and then broke on her causing facial laceration as well as some small superficial lacerations to the palmar surfaces of her hand. Patient denies any current or recent chest pain she has had some shortness of breath denies any fevers but has had a cough. She denies any abdominal pain denies any nausea vomiting or diarrhea no urinary symptoms. Patient does not believe that she injured her upper or lower extremities but when I move her right arm she does complain of right shoulder pain. Tetanus has been updated within the last 5 years. Patient does complain of a headache she is on Effient denies any other blood thinners. No other aggravating or relieving factors no other associated symptoms no other prior treatments or complaints. Family: Reviewed and noncontributory Social: lives at home Review of systems negative unless otherwise specified in the HPI. Physical Exam Vitals & Measurements T: 36.7 ???C(Oral) HR: 74(Peripheral) RR: 16 BP: 184/98 SpO2: 93% HT: 162 cm WT: 79.9 kg BMI: 30.45 Nurses note and vital signs reviewed and noted. General: The patient appears well and in no apparent distress. Patient is resting comfortably on cart. GCS = 15. Skin: Warm, dry, no pallor noted. Laceration across the forehead however there is a lot of dried blood therefore on the initial cursory exam I was not able to get further accurate dimensions of the laceration we will come back and reexamine her. She also has some superficial abrasions on the palmar surfaces specifically on the right hand. Head: Normocephalic, atraumatic Neck: Supple, trachea mid-line, patient does complain of generalized tenderness to palpation diffusely about the cervical spine. C-collar intact from the prehospital setting. Eyes: PERRLA, EOMI ENT: No gaitan sign, no raccoon eyes, no blood in posterior oropharynx, no dental injuries Cardiovascular: Regular Rate and Rhythm, normal peripheral perfusion Respiratory: no distress, no accessory muscle use, no obvious wheezing Chest Wall: no tenderness, no flail chest, contusion, abrasion, or signs of trauma. Back: No focal tenderness to palpation diffusely about the dorsal region Musculoskeletal: Right upper extremity: Patient does complain of some tenderness diffusely about that right shoulder with some pain with range of motion. No focal tenderness to the remainder of the extremity no focal tenderness to the remainder of the bilateral lower extremities left upper extremity. Full range of motion is noted no deformity. GI: Soft, no tenderness to palpation, no masses appreciated. No rebound, guarding, or rigidity noted. 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 Psychiatric: Cooperative Procedure I did clean the wounds on the forehead. Patient does have some superficial abrasions but no deeper lacerations identified. Medical Decision Making C-collar cleared clinically and radiographically. Patient states that she is starting to have increasing pain in her thoracic area as well as her lumbar area therefore we will send her over for CT scan of chest abdomen pelvis to evaluate for any intrathoracic intra-abdominal injuries and also to visualize the thoracic and lumbar spine for injury as well. Initial head CT and C-spine are negative. Right shoulder x-ray is negative as well. Ultimately patient is signed out to the oncoming physician for final disposition and treatment plan. Assessment/Plan Back pain (M54.9: Dorsalgia, unspecified) Dizziness (R42: Dizziness and giddiness) Dyspnea (R06.00: Dyspnea, unspecified) Forehead abrasion (S00.81XA: Abrasion of other part of head, initial encounter) Head injury (S09.90XA: Unspecified injury of head, initial encounter) Orders: ABO/Rh ABO/Rh History Check Antibody Screen Basic Metabolic Panel Blood Bank ID# CBC w/ Auto Diff CT Abdomen/Pelvis w/ Contrast CT Chest w/ Contrast CT Head or Brain w/o Contrast CT Spine Cervical w/o Contrast Drug Screen Urine ED Cardiac Monitoring eGFR Ethanol Level Extra SST Tube Hepatic Function Panel Lactic Acid Lipase Level NPO Diet Oxygen Therapy PT & PTT Pulse Oximetry Continuous Saline Lock Insert Troponin XR Shoulder Complete Right Disposition Plan Discharge Prescription List Prescriptions No active prescription medications (more content not included)... Normal [facility] Comment on above: Result Comment: Elec tronically Signed By: Lawrence Elise DO\.br\Date and Time Signed: 11/24/24 18:32 EST ED Patient Education Noteon 11-24-2024 ED Patient Education Note ED Patient Education Note Normal [facility] ED Patient Summaryon 025 ED Patient Summary ED Patient Summary [place] [id number] Patient Discharge Instructions Person Information Name: LIVIA JACOBO Age: 64 Years Arrival Date: 11/24/2024 17:08:50 Discharge Diagnosis: 2:Leg weakness, bilateral; 3:HTN (hypertension), benign; 4:Anxiety and depression; 5:HLD (hyperlipidemia); 6:RLS (restless legs syndrome); 7:CAD (coronary artery disease); 8:PVD (peripheral vascular disease); 9:On deep vein thrombosis (DVT) prophylaxis; Back pain; Depression, unspecified; Dizziness; Dyspnea; Forehead abrasion; Head injury Primary Care Physician: Dorie Luis MD Provider Information Primary Provider: Lawrence Elise DO Advanced Instrument Engineer:None The exam and treatment you received in the Emergency Department were for an urgent problem and are not intended as complete care. It is important that you follow up with a doctor, nurse practitioner, or physician???s assistant chief of police for ongoing care. If your symptoms become worse or you do not improve as expected and you are unable to reach your usual health care provider, you should return to the Emergency Department. We are available 24 hours a day. LIVIA AJCOBO has been given the following list of [...] opioids can be used to help relieve [id number]-[id number] pain and are often prescribed following a [...] as well, even when taken as directed: ??? Tolerance???meaning you might need to take more of the medication for the same pain relief ??? Physical dependence???meanin g you have symptoms of withdrawal when a medication is stopped ??? Increased sensitivity to pain ??? Constipation ??? Nausea, vomiting, and dry mouth ??? Sleepiness and dizziness ??? Confusion ??? Depression ??? Low levels of testosterone that can result in lower sex drive, energy, and strength ??? Itching and sweating RISKS ARE GREATER WITH: ??? History of drug misuse, substance use disorder, or overdose ??? Mental health conditions (such as depression or anxiety) ??? Sleep apnea ??? Older age (65 years and older) ??? Avoid alcohol while taking prescription opioids. Also, unless specifically advised by your health care provider, medications to avoid include: ??? Benzodiazepines (such as Xanax or Valium) ??? Muscle relaxants (such as Soma or Flexeril) ??? Hypnotics (such as Ambien or Lunesta) ??? Other prescription opioids KNOW YOUR OPTIONS Talk to your health care provider about ways to manage your pain that don???t involve prescription opioids. Some of these options may actually work better and have fewer risks and side effects. Options may include: ??? Pain relievers such as acetaminophen, ibuprofen, and naproxen ??? Some medication that are also used for depression or seizures ??? Physical therapy and exercise ??? Cognitive behavioral therapy, a psychological, goal-directed approach, in which patients learn how to modify physical, behavioral, and emotional triggers of pain and stress. IF YOU ARE PRESCRIBED OPIOIDS FOR PAIN: ??? Never take opioids in greater amounts or more often than prescribed. ??? Follow up with your primary health care provider. o Work together to create a plan on how to manage your pain. o Talk about ways to help manage your pain that don???t involve prescription opioids. o Talk about any and all concerns and side effects. ??? Help prevent misuse and abuse o Never sell or share prescription opioids. o Never use another person???s prescription opioids. ??? Store prescription opioids in a secure place and out of reach of others (this may include visitors, children, friends, and family). ??? Safely dispose of unused prescription opioids: Find your community drug take-back program or your pharmacy mail-back program, or flush them down the toilet, following guidance from the Food and Drug Administration (www.fda.gov/Drugs/ ResourcesForYou). ??? Visit www.cdc.gov/drugove rdose to learn (more content not included)... [facility] Ethanolon 11-24-2024 Ethanol Lvl <10 Normal <=11 [facility] Comment on above: Performed By: #### 2 [id number] #### [facility] [address] [place] [address] HEMATOLOGYOrdered By: SYSTEM SYSTEM on 11-24-2024 Basophils/100 WBC (Bld) 0.8 % Normal 0.0 - 2.0 % Remisol Heme Basophils/Leukocytes Auto (Bld) [Pure # fraction] 0.0 E9/L Normal 0.0 - 0.2 E9/L Remisol Heme Eosinophils (Bld) [#/Vol] 0.1 E9/L Normal 0.0 - 0.5 E9/L Remisol Heme Eosinophils/100 WBC (Bld) 2.6 % Normal 0.0 - 8.0 % Remisol Heme Erythrocyte distribution width (RBC) [Ratio] 13.2 % Normal 10.9 - 14.2 % Remisol Heme Hematocrit (Bld) [Volume fraction] 42.4 % Normal 34.0 - 46.0 % Remisol Heme Hemoglobin (Bld) [Mass/Vol] 14.8 g/dL Normal 12.0 - 16.0 gm/dL Remisol Heme Lymphocytes (Bld) [#/Vol] 1.7 E9/L Normal 1.0 - 4.0 E9/L Remisol Heme Lymphocytes/100 WBC (Bld) 40.2 % Normal 14.0 - 50.0 % Remisol Heme MCH (RBC) [Entitic mass] 33.8 pg Normal 27.0 - 34.0 pg Remisol Heme MCHC (RBC) [Mass/Vol] 34.8 g/dL Normal 31.4 - 36.0 gm/dL Remisol Heme MCV (RBC) [Entitic vol] 97.4 fL Normal 80.0 - 100.0 fL Remisol Heme Monocytes (Bld) [#/Vol] 0.4 E9/L Normal 0.2 - 1.0 E9/L Remisol Heme Monocytes/100 WBC (Bld) 9.9 % Normal 4.0 - 14.0 % Remisol Heme Neutrophils (Bld) [#/Vol] 1.9 E9/L Low 2.0 - 7.5 E9/L Remisol Heme Neutrophils/100 WBC (Bld) 46.5 % Normal 36.0 - 75.0 % Remisol Heme Platelet mean volume (Bld) [Entitic vol] 7.7 fL Normal 6.4 - 10.8 fL Remisol Heme Platelets (Bld) [#/Vol] 185.0 E9/L Normal 150.0 - 500.0 E9/L Remisol Heme RBC (Bld) [#/Vol] 4.4 E12/L Normal 4.3 - 5.9 E12/L Re misol Heme WBC corrected for nucl RBC Auto (Bld) [#/Vol] 4.1 E9/L Normal 4.0 - 11.0 E9/L Remisol Heme Hep Func Panelon 11-24-2024 Albumin [Mass/Vol] 3.8 g/dL Normal 3.3-5.0 [facility] Comment on above: Performed By: #### [id number] #### [facility] [address] [place] [address] Albumin/Globulin (S) [Mass conc ratio] 1.4 Normal 1.1-2.2 [facility] Comment on above: Performed By: #### 2 [id number] #### [facility] [address] [place] [address] ALP [Catalytic activity/Vol] 91 Int._Unit/L Normal 21-98 [facility] Comment on above: Performed By: #### 2 [id number] #### [facility] [address] [place] [address] ALT No additional P-5'-P [Catalytic activity/Vol] 9 Int._Unit/L Normal 6-46 [facility] Comment on above: Performed By: #### 2 [id number] #### [facility] [address] [place] [address] AST [Catalytic activity/Vol] 15 Int._Unit/L Normal 5-43 [facility] Comment on above: Performed By: #### 2 [id number] #### [facility] [address] [place] [address] Bilirubin [Mass/Vol] 0.6 mg/dL Normal 0.0-1.1 [facility] Comment on above: Performed By: #### 2 [id number] #### [facility] [address] [place] [address] Bilirubin.direct [Mass/Vol] 0.1 mg/dL Normal 0.0-0.4 [facility] Comment on above: Performed By: #### 2 [id number] #### [facility] [address] [place] [address] Bilirubin.indirect [Mass or moles/Vol] 0.5 mg/dL Normal 0.1-0.9 [facility] Comment on above: Performed By: #### 2 [id number] #### [facility] [address] [place] [address] Globulin (S) [Mass/Vol] 2.8 g/dL Normal 1.4-4.0 [facility] Comment on above: Performed By: #### 2 [id number] #### [facility] [address] [place] [address] Protein [Mass/Vol] 6.6 g/dL Normal 6.0-7.8 [facility] Comment on above: Performed By: #### 2 [id number] #### [facility] [address] [place] [address] Lactic Acidon 11-24-2024 Lactic Acid Lvl 0.7 mmol/L Normal 0.5-2.2 [facility] Comment on above: Performed By: #### 2 [id number] #### [facility] [address] [place] [address] Lipase Levelon 11-24-2024 Lipase [Catalytic activity/Vol] 11 U/L Low 13-58 [facility] Comment on above: Performed By: #### 2 [id number] #### [facility] [address] [place] [address] PT & PTTon 11-24-2024 aPTT Coag (PPP) [Time] 32.3 second(s) Normal 25.1-36.5 [facility] Comment on above: Result Comment: Para [...] the same coagulation reagent and instrumentation as [facility] Currently there are no coagulation studies available worldwide for children to 14 days, and no normal ranges. Heparin therapeutic range (represented by Anti-Factor Xa activity of 0.2 - 0.4 U/mL) corresponds to PTT of 56.6 - 109.0 sec. Performed By: #### 1 [id number] #### [facility] [address] [place] [address] INR Coag (PPP) [Relative time] 1.04 {INR} Invalid Interpretation Code [facility] Comment on above: Result Comment: INR results are specifically intended to assess patients stabilized on long-term Anticoagulation therapy suggested INR???s ???Less Intensive Anticoagulation??? 2.0 ??? 3.0 Conventional Range 3.0 ??? 4.5 Performed By: #### 1 [id number] #### [facility] [address] [place] [address] PT Coag (PPP) [Time] 11.7 second(s) Normal 9.4-12.5 [facility] Comment on above: Result Comment: 15 [...] the same coagulation reagent and instrumentation as [facility]. Currently there are no coagulation studies available worldwide for children to 14 days, and no normal ranges. Performed By: #### 1 [id number] #### [facility] [address] [place] [address] Pre-Arrival Noteon Pre-Arrival Note Pre-Arrival Note Pre-Arrival Summary Name: , anu Current Date: 11/24/2024 17:09:58 EST Gender: Female Date of : Age: 64 Pre-Arrival Type: EMS ETA: 11/24/2024 17:33:00 EST Primary Care Physician: Presenting Problem: fall Pre-Arrival User: Mary Brown RN Referring Source: Location: Completion Date/Time: 11/24/2024 17:03:00 [facility] Emergency Department Pre-Hospital Report Form ___ Vital Signs: Pre-Hospital Report: Treatment in Route: Response to Treatment: Misc. Issues: Normal [facility] Pre-Arrival Note Pre-Arrival Note Pre-Arrival Summary Name: anu Current Date: 11/24/2024 17:09:57 EST Gender: Female Date of : Age: 64 Pre-Arrival Type: EMS ETA: 11/24/2024 17:33:00 EST Primary Care Physician: Presenting Problem: fall Pre-Arrival User: Mary Brown RN Referring Source: Location: Completion Date/Time: 11/24/2024 17:03:00 [facility] Emergency Department Pre-Hospital Report Form ___ Vital Signs: Pre-Hospital Report: Treatment in Route: Response to Treatment: Misc. Issues: Normal [facility] Troponinon 11-24-2024 Troponin HS 7.10 pg/mL Low 10.10-27.10 [facility] Comment on above: Result Comment: The 95% CI (Confidence Interval) PPV (Positive Predictive Value) for myocardial infarction in females is 38 pg/mL, in males 51 pg/mL. The results should be used in conjunction with clinical conditions of myocardial infarction. (Access High Sensitivity Troponin I Instructions For Use, Shivani Margo, June 2018) Performed By: #### 2 [id number] #### [facility] [address] [place] [address] U Drug Screenon 11-24-2024 Amphetamines Screen method >1000 ng/mL Ql (U) Negative Normal NEGATIVE [facility] Comment on above: Result Comment: Nega tive Cutoff: <1000 ng/mL Performed By: #### 2 [id number] #### [facility] [address] [place] [address] Barbiturates Screen Ql (U) Negative Normal NEGATIVE [facility] Comment on above: Result Comment: Nega tive Cutoff: <200 ng/mL Performed By: #### 2 [id number] #### [facility] [address] [place] [address] Benzodiazepines Ql (U) Positive Abnormal NEGATIVE [facility] Comment on above: Result Comment: Nega tive Cutoff: <200 ng/mL Performed By: #### 2 [id number] #### [facility] [address] [place] [address] Cannabinoids Screen Ql (U) Negative Normal NEGATIVE [facility] Comment on above: Result Comment: Nega tive Cutoff: <50 ng/mL Performed By: #### 2 [id number] #### [facility] [address] [place] [address] Cocaine Ql (U) Negative Normal NEGATIVE [facility] Comment on above: Result Comment: Nega tive Cutoff: <300 ng/mL Performed By: #### 2 [id number] #### [facility] [address] [place] [address] Opiates Screen Ql (U) Negative Normal NEGATIVE [facility] Comment on above: Result Comment: Nega tive Cutoff: <300 ng/mL Performed By: #### 2 [id number] #### [facility] [address] [place] [address] Phencyclidine Screen method >25 ng/mL Ql (U) Negative Normal NEGATIVE [facility] Comment on above: Result Comment: Nega tive Cutoff: <25 ng/mL These drug screen results are to be used for medical (i.e., treatment) purposes only. Unconfirmed drug screening results must not be used for non-medical purposes (e.g., employment testing, legal testing). Performed By: #### 2 [id number] #### [facility] [address] [place] [address] U Fentanyl Negative Normal NEGATIVE [facility] Comment on above: Result Comment: Nega tive Cutoff: <5 ng/mL These drug screen results are to be used for medical (i.e., treatment) purposes only. Unconfirmed drug screening results must not be used for non-medical purposes (e.g., employment testing, legal testing). Performed By: #### 2 [id number] #### [facility] [address] [place] [address] UA with Cult Rflxon 11-24-19 25 Bilirubin Ql (U) Negative Normal Negative [facility] Comment on above: Performed By: #### 4 [id number] #### [facility] [address] [place] [address] Clarity (U) Clear Normal Clear [facility] Comment on above: Performed By: #### 4 [id number] #### [facility] [address] [place] [address] Color (U) Colorless Abnormal Yellow [facility] Comment on above: Result Comment: Micr oscopic readings are only performed on those samples that meet specific criteria set forth by [facility]. Performed By: #### 4 [id number] #### [facility] [address] [place] [address] Glucose Ql (U) Negative Normal Negative [facility] Comment on above: Performed By: #### 4 [id number] #### [facility] [address] [place] [address] Hemoglobin Auto test strip (U) [Mass/Vol] Negative Normal Negative [facility] Comment on above: Performed By: #### 4 [id number] #### [facility] [address] [place] [address] Ketones Auto test strip Ql (U) Negative Normal Negative [facility] Comment on above: Performed By: #### 4 [id number] #### [facility] [address] [place] [address] Leukocyte esterase Auto test strip Ql (U) Negative Normal Negative [facility] Comment on above: Performed By: #### 4 [id number] #### [facility] [address] [place] [address] Nitrite Auto test strip Ql (U) Negative Normal Negative [facility] Comment on above: Performed By: #### 4 [id number] #### [facility] [address] [place] [address] pH (U) 7.0 [pH] Invalid Interpretation Code 5.0-9.0 [facility] Comment on above: Performed By: #### 4 [id number] #### [facility] [address] [place] [id number] Protein Ql (U) Negative Normal Negative [facility] Comment on above: Performed By: #### 4 [id number] #### [facility] [address] [place] [address] Specific gravity (U) [Rel density] 1.030 Invalid Interpretation Code 1.005-1.030 [facility] Comment on above: Performed By: #### 4 [id number] #### [facility] [address] [place] [id number] Urobilinogen (U) [Mass/Vol] Negative Normal Negative [facility] Comment on above: Performed By: #### 4 [id number] #### [facility] [address] [place] [id number] Type of Urine collection method Clean Catch Normal [facility] Comment on above: Performed By: #### 4 [id number] #### [facility] [address] [place] [id number] URINALYSISOrdered By: SYSTEM SYSTEM on 11-24-2024 Bilirubin Ql (U) Negative Normal Negativemg/dL [facility] UA Auto SS Clarity (U) Clear (11/24/24 7:51 PM) Normal Clear [facility] UA Auto SS Color (U) Colorless 3 *ABN* (11/24/24 7:51 PM) Invalid Interpretation Code Yellow [facility] Comment on above: Interpretive Data: M icroscopic readings are only performed on those samples that meet specific criteria set forth by [facility]. Glucose Ql (U) Negative Normal Negativemg/dL [facility] Auto SS Hemoglobin Auto test strip (U) [Mass/Vol] Negative Normal Negativemg/dL [facility] Aut o SS Ketones Auto test strip Ql (U) Negative Normal Negativemg/dL [facility] Auto SS Leukocyte esterase Auto test strip Ql (U) Negative Normal NegativeLeu/uL [facility] UA Auto SS Nitrite Auto test strip Ql (U) Negative Normal Negativemg/dL [facility] UA Auto SS pH (U) 7.0 *NA* (11/24/24 7:51 PM) Invalid Interpretation Code 5.0 - 9.0 [facility] UA Auto SS Protein Ql (U) Negative Normal Negativemg/dL [facility] UA Auto SS Specific gravity (U) [Rel density] 1.030 *NA* (11/24/24 7:51 PM) Invalid Interpretation Code 1.005 - 1.030 [facility] UA Auto SS Urobilinogen (U) [Mass/Vol] Negative Normal Negativemg/dL [facility] UA Auto SS URINALYSISOrdered By: Lawrence toledo on 11-24-2024 UA Spec Desc Clean Catch (11/24/24 7:51 PM) Normal [facility] UA Auto SS Work Phone: eGFRon 11-24-2024 eGFR 96 mL/min/1.73 m2 Normal >=59 [facility] Comment on above: Performed By: #### 1 [id number] #### [facility] [address] [place] [address] Heart and Vascular Office/Cl inic Noteon 11-13-2024 Heart and Vascular Office/Clinic Note Heart and Vascular Office/Clinic Note Chief Complaint `inpt f/u chest pain, cad, hld, htn, copd, pt is having more falls but feels like it could have been med related, and she is having nausea at night History of Present Illness Livia is a 64 year old female with past medical hx of COPD, STEMI, CAD and HTN. Patient comes in for inpatient follow-up today. Patient was hospitalized from 10/29/2024 through 10/30/2012 for COPD exacerbation. She was seen by our cardiology team while she was in the hospital but no further cardiac workup was indicated although she did have some chest discomfort while she was in the hospital - it was felt to be noncardiac in origin. Patient also reports that she has been to the ED a couple times since her last visit in the office. Patient reports that isosorbide was increased to 30 mg ER twice daily patient has been compliant with carvedilol 12.5 mg twice daily and losartan 100 mg daily for blood pressure. Patient reports that her blood pressure has been well-controlled since the medication changes when she is checked at home. Blood pressure is on the low end of normal today in the office. Patient reports that she has had continued chest discomfort since leaving the hospital. She states that it is intermittent and comes and goes. She states that this pain is different than her pain when she had her STEMI. Patient reports that her STEMI pain was a burning type of chest pain she was vomiting and sweating profusely. Patient reports that this chest discomfort is moderate with a tightness/pain in the middle of her chest. She states that he thinks a lot of times it is related to panic/anxiety. She has been taking nitro as needed at home and is averaging taking it about a couple times a week. She does not have to take it 3 times too often, because if that occurs then she will go to the ER if still having pain after 3 doses of nitro. Patient reports that she also has ongoing shortness of breath. Even walking short distances can cause her to be short of breath and she has to sit down and take a rest. Patient does have chronic lung related issues and has not followed up with pulmonology for quite some time. She recently was diagnosed with COPD exacerbation and does not feel that Z-Morgan and prednisone she was given has significantly helped her symptoms thus far. Patient denies heart palpitations, swelling to lower extremities NOTE FROM 10/03/2024: Patient comes in for 3-month follow-up today. At last visit, I saw patient at which time she was restarted on Effient 10 mg daily and had her continue with other current medications. Patient was also admitted to the hospital 07/2024 due to chest pain. ACS was ruled out and patient was increased on Imdur to 30 mg ER twice daily to see if that helped out with her symptoms of chest discomfort. Patient reports that she has been compliant with higher dos isosorbide and has been tolerating it well. She states that she has not had any chest discomfort since leaving hospital. She is also taking Ranexa 500 mg twice daily to help out with those symptoms. Patient reports that she was in the [facility] this past weekend due to issues with weakness in her lower extremities. She states that while she was in the hospital although, her blood pressure was significantly elevated. She states that it was in the 200s/100s a lot of the time. She is compliant with losartan 100 mg daily and carvedilol 6.25 mg twice daily in addition to isosorbide. Patient reports that she was told carvedilol was going to be increased to 12.5 mg twice daily, but no prescription was sent to her pharmacy so patient is to continue a 6.25 mg twice daily at this time. Patient reports she has a blood pressure cuff at home, but has not been taking it at home lately. Patient is compliant with aspirin 81 mg daily, Effient 10 mg daily and atorvastatin 80 mg daily for CAD. She had PCI at in 10/2024, so needs to continue taking Effient until it has been 1 year since that time. Patient reports that she has chronic shortness of breath that is no change from previous Patient denies heart palpitations, dizziness/lighthead edness, swelling to lower extremities. Review of Systems PHQ Score Initial Depression Screen Score: 0 SCORE ROS - Provider Constitutional: no fever, no chills, no sweats, no weakness Respiratory: yes chronic shortness of breath, no cough Cardiovascular: yes chest pain Neuro: no dizziness. no loss of consciousness Physical Exam Vitals & Measurements HR: 77(Peripheral) RR: 16 BP: 99/66 SpO2: 92% HT: 64 in HT: 162 cm WT: 78.6 kg WT: 173.283 lb BMI: 29.95 General: alert, no acute distress Cardiovascular: regular rate and rhythm, no murmur normal peripheral perfusion Respiratory: Lungs CTAB, respirations non labored Extremities: no edema left lower extremity. no edema right lower extremity Neurological: oriented x 4, LOC appropriate for age, speech normal Skin: Warm, dry, intact- no rash or concerning lesions Cardiac D (more content not included)... Normal [facility] Comment on above: Result Comment: Elec tronically Signed By: Byron ZHANG, Amilcar Abbott\.br\Date and Time Signed: 11/13/24 13:17 EST Provider Letteron 11-01-2024 Provider Letter Provider Letter November 01, 2024 LIVIA [address]OBO [address] [place] [phone] LIVIA JACOBO 1960 Dear Livia , We have been trying to reach you with no success. It is important that you return our call regarding your recent hospital discharge upon receiving this letter. Also, at the time of your call, please provide us with your current information. Thank you for your prompt attention to this matter. Sincerely, Miguel MARTIN [phone] Normal [facility] BMPon 10-29-2024 Anion gap [Moles/Vol] 12 mmol/L Normal -16 [facility] Comment on above: Performed By: #### 2 [id number] #### [facility] [address] [place] [address] Calcium [Mass/Vol] 9.0 mg/dL Normal 8.9-11.1 [facility] Comment on above: Performed By: #### 2 [id number] #### [facility] [address] [place] [address] Chloride [Moles/Vol] 106 mmol/L Normal 101-111 [facility] Comment on above: Performed By: #### 2 [id number] #### [facility] [address] [place] [address] CO2 [Moles/Vol] 26 mmol/L Normal 21-31 [facility] Comment on above: Performed By: #### 2 [id number] #### [facility] [address] [place] [address] Creatinine [Mass/Vol] 0.6 mg/dL Normal 0.5-1.3 [facility] Comment on above: Performed By: #### 2 [id number] #### [facility] [address] [place] [address] Glucose [Mass/Vol] 108 mg/dL Normal 55-199 [facility] Comment on above: Performed By: #### 2 [id number] #### [facility] [address] [place] [address] Potassium [Moles/Vol] 3.7 mmol/L Normal 3.5-5.3 [facility] Comment on above: Performed By: #### 2 [id number] #### [facility] [address] [place] [address] Sodium [Moles/Vol] 140 mmol/L Normal 135-145 [facility] Comment on above: Performed By: #### 2 [id number] #### [facility] [address] [place] [address] Urea nitrogen [Mass/Vol] 18 mg/dL Normal 5-21 [facility] Comment on above: Performed By: #### 2 [id number] #### [facility] [address] [place] [address] Urea nitrogen/Creatinine [Mass ratio] 30 No Units High 10-20 [facility] Comment on above: Performed By: #### 2 [id number] #### [facility] [address] [place] [address] CBC w/ Auto Diffon 4 Basophils/100 WBC (Bld) 0.9 % Normal 0.0-2.0 [facility] Comment on above: Performed By: #### 2 [id number] #### [facility] [address] [place] [address] Basophils/Leukocytes Auto (Bld) [Pure # fraction] 0.0 E9/L Normal 0.0-0.2 [facility] Comment on above: Performed By: #### 2 [id number] #### [facility] [address] [place] [address] Eosinophils (Bld) [#/Vol] 0.1 E9/L Normal 0.0-0.5 [facility] Comment on above: Performed By: #### 2 [id number] #### [facility] [address] [place] [address] Eosinophils/100 WBC (Bld) 2.3 % Normal 0.0-8.0 [facility] Comment on above: Performed By: #### 2 [id number] #### [facility] [address] [place] [address] Erythrocyte distribution width (RBC) [Ratio] 14.2 % Normal 10.9-14.2 [facility] Comment on above: Performed By: #### 2 [id number] #### [facility] [address] [place] [address] Hematocrit (Bld) [Volume fraction] 42.7 % Normal 34.0-46.0 [facility] Comment on above: Performed By: #### 2 [id number] #### [facility] [address] [place] [address] Hemoglobin (Bld) [Mass/Vol] 14.7 g/dL Normal 12.0-16.0 [facility] Comment on above: Performed By: #### 2 [id number] #### [facility] [address] [place] [address] Lymphocytes (Bld) [#/Vol] 1.8 E9/L Normal 1.0-4.0 [facility] Comment on above: Performed By: #### 2 [id number] #### [facility] [address] [place] [address] Lymphocytes/100 WBC (Bld) 42.1 % Normal 14.0-50.0 [facility] Comment on above: Performed By: #### 2 [id number] #### [facility] [address] [place] [address] MCH (RBC) [Entitic mass] 33.5 pg Normal 27.0-34.0 [facility] Comment on above: Performed By: #### 2 [id number] #### [facility] [address] [place] [address] MCHC (RBC) [Mass/Vol] 34.4 g/dL Normal 31.4-36.0 [facility] Comment on above: Performed By: #### 2 [id number] #### [facility] [address] [place] [address] MCV (RBC) [Entitic vol] 97.5 fL Normal 80.0-100.0 [facility] Comment on above: Performed By: #### 2 [id number] #### [facility] [address] [place] [address] Monocytes (Bld) [#/Vol] 0.4 E9/L Normal 0.2-1.0 [facility] Comment on above: Performed By: #### 2 [id number] #### [facility] [address] [place] [address] Neutrophils (Bld) [#/Vol] 1.9 E9/L Low 2.0-7.5 [facility] Comment on above: Performed By: #### 2 [id number] #### [facility] [address] [place] [address] Neutrophils/100 WBC (Bld) 45.7 % Normal 36.0-75.0 [facility] Comment on above: Performed By: #### 2 [id number] #### [facility] [address] [place] [address] Platelet mean volume (Bld) [Entitic vol] 6.9 fL Normal 6.4-10.8 [facility] Comment on above: Performed By: #### 2 [id number] #### [facility] [address] [place] [address] Platelets (Bld) [#/Vol] 170.0 E9/L Normal 150.0-500.0 [facility] Comment on above: Performed By: #### 2 [id number] #### [facility] [address] [place] [address] RBC (Bld) [#/Vol] 4.4 E12/L Normal 4.3-5.9 [facility] Comment on above: Performed By: #### 2 [id number] #### [facility] [address] [place] [address] WBC corrected for nucl RBC Auto (Bld) [#/Vol] 4.2 E9/L Normal 4.0-11.0 [facility] Comment on above: Performed By: #### 2 [id number] #### [facility] [address] [place] [address] CHEMISTRYOrdered By: SYSTEM SYSTEM on 10-29-2024 Troponin HS 7.20 pg/mL Low 10.10 - 27.10 pg/mL [facility] Comment on above: Interpretive Data: T he 95% CI (Confidence Interval) PPV (Positive Predictive Value) for myocardial infarction in females is 38 pg/mL, in males 51 pg/mL. The results should be used in conjunction with clinical conditions of myocardial infarction. (Access High Sensitivity Troponin I Instructions For Use, Shivani Margo, June 2018) Albumin [Mass/Vol] 4.0 g/dL Normal 3.3 - 5.0 gm/dL [facility] Albumin/Globulin [Mass ratio] 1.4 {ratio} Normal 1.1 - 2.2 [facility] ALP [Catalytic activity/Vol] 102 [iU]/d High 21 - 98 Int._Unit/L [facility] ALT No additional P-5'-P [Catalytic activity/Vol] 13 [iU]/d Normal 6 - 46 Int._Unit/L [facility] Anion gap [Moles/Vol] 12 mmol/L Normal 6 - 16 mEq/L [facility] AST [Catalytic activity/Vol] 14 [iU]/d Normal 5 - 43 Int._Unit/L [facility] Bilirubin [Mass/Vol] 0.5 mg/dL Normal 0.0 - 1.1 mg/dL [facility] Bilirubin.direct [Mass/Vol] 0.1 mg/dL Normal 0.0 - 0.4 mg/dL [facility] Bilirubin.indirect [Mass or moles/Vol] 0.4 mg/dL Normal 0.1 - 0.9 mg/dL [facility] Calcium [Mass/Vol] 9.0 mg/dL Normal 8.9 - 11.1 mg/dL [facility] Chloride [Moles/Vol] 106 mmol/L Normal 101 - 111 mmol/ L [facility] CO2 [Moles/Vol] 26 mmol/L Normal 21 - 31 mmol/L [facility] Creatinine [Mass/Vol] 0.6 mg/dL Normal 0.5 - 1.3 mg/dL [facility] eGFR 99 mL/min/1.73 m2 Normal >=59mL/min/1.73 m2 [facility] Globulin (S) [Mass/Vol] 2.9 g/dL Normal 1.4 - 4.0 gm/dL [facility] Glucose [Mass/Vol] 108 mg/dL Normal 55 - 199 mg/dL Re misol Chem Lipase [Catalytic activity/Vol] 21 U/L Normal 13 - 58 unit/L [facility] Potassium [Moles/Vol] 3.7 mmol/L Normal 3.5 - 5.3 mmol/L [facility] Protein [Mass/Vol] 6.9 g/dL Normal 6.0 - 7.8 gm/dL R [facility] Sodium [Moles/Vol] 140 mmol/L Normal 135 - 145 mmol/L [facility] Troponin HS 7.70 pg/mL Low 10.10 - 27.10 pg/mL [facility] Comment on above: Interpretive Data: T he 95% CI (Confidence Interval) PPV (Positive Predictive Value) for myocardial infarction in females is 38 pg/mL, in males 51 pg/mL. The results should be used in conjunction with clinical conditions of myocardial infarction. (Access High Sensitivity Troponin I Instructions For Use, Shivani Paris, June 2018) Urea nitrogen [Mass/Vol] 18 mg/dL Normal 5 - 21 mg/dL [facility] Urea nitrogen/Creatinine [Mass ratio] 30 mg/mg High 10 - 20 [facility] COAGULATIONOrdered By: Cindy Jacobs on 10-29-2024 aPTT Coag (PPP) [Time] 32.8 s Normal 25.1 - 36.5 second(s) [facility] Comment on above: Interpretive Data: [...] the same coagulation reagent and instrumentation as [facility]. Currently there are no coagulation studies available worldwide for children to 14 days, and no normal ranges. Heparin therapeutic range (represented by Anti-Factor Xa activity of 0.2 - 0.4 U/mL) corresponds to PTT of 56.6 - 109.0 sec. Fibrin D-dimer FEU (PPP) [Mass/Vol] 447 ng/mL FEU Normal 215 - 500 ng/mL FEU [facility] Comment on above: Interpretive Data: T his assay is intended for use as an aid in the diagnosis of DVT or PE. These conditions cannot be excluded with certainty solely on the basis of a D-dimer concentration being within the reference range This D-Dimer assay may be used in conjunction with a non-high clinical pretest probability assessment to exclude deep-vein thrombosis(DVT). For exclusion of venous thrombosis or pulmonary embolism the analyte D-Dimer should not be used as an aid in patients with: Therapeutic dose anticoagulant therapy for >24 hours Fibrinolytic therapy within previous 7 days Trauma or surgery within previous 4 weeks Disseminated malignacies Aortic aneurysm Sepsis, severe infections, pneumonia, severe skin infections Liver cirrhosis INR Coag (PPP) [Relative time] 0.96 {INR} Invalid Interpretation Code [facility] Comment on above: Interpretive Data: I NR results are specifically intended to assess patients stabilized on long-term Anticoagulation therapy suggested INR s Less Intensive Anticoagulation 2.0 3.0 Conventional Range 3.0 4.5 PT Coag (PPP) [Time] 10.7 s Normal 9.4 - 1 2.5 second(s) [facility] Comment on above: Interpretive Data: [...] the same coagulation reagent and instrumentation as [facility]. Currently there are no coagulation studies available worldwide for children to 14 days, and no normal ranges. D-Dimeron 10-29-2024 Fibrin D-dimer FEU (PPP) [Mass/Vol] 447 [id number] Normal 215-500 [facility] Comment on above: Result Comment: This assay is intended for use as an aid in the diagnosis of DVT or PE. These conditions cannot be excluded with certainty solely on the basis of a D-dimer concentration being within the reference range This D-Dimer assay may be used in conjunction with a non-high clinical pretest probability assessment to exclude deep-vein thrombosis(DVT). For exclusion of venous thrombosis or pulmonary embolism the analyte D-Dimer should not be used as an aid in patients with: Therapeutic dose anticoagulant therapy for >24 hours Fibrinolytic therapy within previous 7 days Trauma or surgery within previous 4 weeks Disseminated malignacies Aortic aneurysm Sepsis, severe infections, pneumonia, severe skin infections Liver cirrhosis Performed By: #### 2 [id number] #### [facility] [address] [place] [address] ED Clinical Summaryon 2023 ED Clinical Summary ED Clinical Summary [address] [address] ED Clinical Summary Person Information [facility]: [facility] Age: 64 Years : 1960 Sex: Female Language: Honduran PCP: Dorie Luis MD Marital Status: Visit Id: Visit Reason: Nausea; Shortness of breath; Chest pain; CHEST PAIN Speciality: Acuity: 2 Enc Type: Observation Med Service: Medical Arrival: 10/29/2024 07:41:11 Discharge: LOS: 000 02:12 Checkin: 10/29/2024 07:41:11 Checkout: 10/29/2024 09:53:56 Dispo Type: Admitted as IP to this [facility] EVENTS: Event Name Event Status Request Date/Time Start Date/Time Complete Date/Time Arrive Complete 10/29/2024 07:41:11 10/29/2024 07:41:11 10/29/2024 07:41:11 Document Home Meds Request 10/29/2024 07:41:11 Triage Complete 10/29/2024 07:41:11 10/29/2024 07:47:48 10/29/2024 07:47:48 Bed Assign Complete 10/29/2024 07:41:11 10/29/2024 07:41:11 10/29/2024 07:41:11 Dr Exam Complete 10/29/2024 07:41:11 10/29/2024 07:42:18 10/29/2024 07:42:18 RN Exam Complete 10/29/2024 07:41:11 10/29/2024 08:09:14 10/29/2024 08:09:14 Registration Complete 10/29/2024 07:42:18 10/29/2024 08:18:26 10/29/2024 08:18:26 EKG Complete 10/29/2024 07:42:57 10/29/2024 07:46:46 Pending Labs Complete 10/29/2024 07:42:57 10/29/2024 09:48:54 Lab Complete 10/29/2024 07:42:57 10/29/2024 08:31:00 Patient Care Request 10/29/2024 07:42:57 RT Request 10/29/2024 07:42:57 X-Ray Complete 10/29/2024 07:42:57 10/29/2024 08:06:05 10/29/2024 08:20:50 Pending Labs Complete 10/29/2024 08:02:01 10/29/2024 08:02:01 10/29/2024 08:31:00 Lab Complete 10/29/2024 08:02:01 10/29/2024 08:02:01 10/29/2024 08:31:00 Meds Admin Complete 10/29/2024 08:02:05 10/29/2024 08:19:36 Pending Labs Cancel 10/29/2024 08:14:25 10/29/2024 08:18:12 Lab Cancel 10/29/2024 08:14:25 10/29/2024 08:18:12 Reg Complete Request 10/29/2024 08:18:26 Reg Bed Request Complete 10/29/2024 08:18:26 10/29/2024 08:18:26 10/29/2024 08:18:26 Pending Labs Complete 10/29/2024 08:18:38 10/29/2024 08:18:38 10/29/2024 08:48:15 Lab Complete 10/29/2024 08:18:38 10/29/2024 08:18:38 10/29/2024 08:48:15 Wet Read Complete 10/29/2024 08:20:50 10/29/2024 08:35:23 10/29/2024 08:35:23 Pending Labs Complete 10/29/2024 08:31:18 10/29/2024 08:31:18 10/29/2024 08:31:18 Observation Request 10/29/2024 09:04:16 Patient Care Request 10/29/2024 09:04:16 Consult Request 10/29/2024 09:04:16 Echo Request 10/29/2024 09:04:16 Patient Care Request 10/29/2024 09:04:17 Patient Care Request 10/29/2024 09:04:18 Medicare Form Request 10/29/2024 09:04:19 Patient Care Request 10/29/2024 09:04:19 Patient Care Request 10/29/2024 09:04:19 NPO Request 10/29/2024 09:05:28 Consult Request 10/29/2024 09:26:26 Hospitalist Consult Request 10/29/2024 09:26:26 Inpatient Bed Ready Complete 10/29/2024 09:53:56 10/29/2024 09:53:56 10/29/2024 09:53:56 ADDRESS: [address] [place], [place] [address] [id number] PHYS DOC NOTES: MEDICAL INFORMATION: Prescriptions Given: Medications to Continue with No Changes Other Medications acetaminophen (acetaminophen 325 mg Tab) 2 Tablets By Mouth every 6 hours as needed Pain. albuterol (Albuterol (Eqv-ProAir HFA) 90 mcg/inh inhalation [...] Inhalation 2 times a day. carvedilol (carvedilol 12.5 mg Tab) 1 Tablets By Mouth 2 times a day. Refills: 2. isosorbide mononitrate (isosorbide mononitrate 30 mg ER Tab) 1 Tablets By Mouth 2 times a day. Refills: 6. lamotrigine (Lamictal 25 mg Tab) 3 Tablets By Mouth once a day (at bedtime). losartan (losartan 100 mg Tab) 1 Tablets By Mouth every day. Refills: 5. Mis Prescription (Handicap Placard, 5 years.) Handicap Placard, [...] day (at bedtime). PATIENT EDUCATION INFORMATION: Instructions: Follow up: DIAGNOSIS: Normal [facility] ED Note-Physicianon 10-29-20 ED Note-Physician ED Note-Physician Basic Information Time Seen: Lawrence Elise DO 10/29/2024 07:42 History of Present Illness 64 female presents emergency department by EMS with chest pain. Patient states this woke her from sleep around 4:00 this morning. She describes substernal chest pain radiating into her right shoulder. She took 3 nitro at home without relief therefore EMS was called. She received aspirin and additional nitro by EMS in addition to a breathing treatment because of some wheezing. Patient was short of breath she does have history of COPD has had a cough denies any fevers. Only blood thinner includes Effient. Patient does have history of CAD with 2 or 3 stents and follows with cardiology locally here. She denies any history or risk factors for DVT or PE. She has no abdominal pain with this. No other aggravating or relieving factors no other associated symptoms no other prior treatments or complaints. Family: Reviewed and noncontributory Social: lives at home Review of systems negative unless otherwise specified in the HPI. Physical Exam General: The patient appears well and in [...] strength and symmetry Psychiatric: Cooperative and appropriate Procedure Heart Score for Major Cardiac Event History: Example factors for history - pattern of chest pain, onset, duration, relation with exercise, stress or cold, localization, concominant symptoms. reaction to sublingual nitrates, [x] Highly suspicious +2 [] Moderately suspicious +1 [...] adverse cardiac event in 6 weeks [] 4-6 Points 12-16.6% risk of major adverse cardiac event in 6 weeks [x] 7-10 Points 50-65% risk of major adverse cardiac event in 6 weeks - [] 0-3 Points with 2 sets of negative cardiac markers <1% risk of major adverse cardiac event in 30 days. - Medical Decision Making Workup in the ER has been reviewed and noted. Initial cardiac enzymes are negative D-dimer is negative. Case discussed with the hospitalist patient will be admitted for additional evaluation and treatment. Assessment/Plan Chest pain (R07.9: Chest pain, unspecified) COPD exacerbation (J44.1: Chronic obstructive pulmonary disease with (acute) exacerbation) Orders: morphine, 4 mg = 1 mL, Injection, IV Push, Once, Stop date 10/29/24 8:01:00 EST, STAT, Start date 10/29/24 8:01:00 EST, 10/29/24 8:01:00 EST ondansetron, 4 mg = 2 mL, Injection, IV Push, Once, Stop date 10/29/24 8:01:00 EST, STAT, Start date 10/29/24 8:01:00 EST, 10/29/24 8:01:00 EST Basic Metabolic Panel CBC w/ Auto Diff D-Dimer ECG 12 Lead Adult ED Cardiac Monitoring ED Physician consult Hospitalist for continued care eGFR Extra SST Tube Hepatic Function Panel Lipase Level Oxygen Saturation Oxygen Therapy PT & PTT Saline Lock Insert Troponin 0 Hr. Troponin 1 Hr. XR Chest Single View Medications Administered Given morphine 4 mg/mL Inj, 4 mg, IV Push Zofran 4 mg/2 mL Injection, 4 mg, IV Push Disposition Plan Discharge Prescription List Prescriptions No active prescription medications Follow-up No qualifying data available Problem List/Past Medical History Ongoing Anxiety and depression Atherosclerosis of aorta Back pain Chest pain syndrome COPD (chronic obstructive pulmonary disease) Current smoker Fatigue History of ST elevation myocardial infarction (STEMI) History of total abdominal hysterectomy HTN (hypertension), benign Major depressive disorder, recurrent, moderate Polyneuropathy Primary insomnia RLS (restless legs syndrome) Sinus infection Walker as ambulation aid Historical Acute ST elevation myocardial infarction (STEMI) Procedure/Surgical History PCI - Percutaneous coronary intervention (07/09/2023), Angioplasty, Gallbladder, Hysterectomy. Medications Inpatient No (more content not included)... Normal [facility] Comment on above: Result Comment: Elec tronically Signed By: Lawrence Elise DO\.br\Date and Time Signed: 10/29/24 09:27 EST ED Patient Education Noteon 10-29-2024 ED Patient Education Note ED Patient Education Note Normal [facility] ED Patient Summaryon 024 ED Patient Summary ED Patient Summary [place] [id number] Patient Discharge Instructions Person Information Name: LIVIA JACOBO Age: 64 Years Arrival Date: 10/29/2024 07:41:11 Discharge Diagnosis: Primary Care Physician: Dorie Luis MD Provider Information Primary Provider: Lawrence Elise DO Advanced Instrument Engineer:None The exam and treatment you received in the Emergency Department were for an urgent problem and are not intended as complete care. It is important that you follow up with a doctor, nurse practitioner, or physician???s assistant chief of police for ongoing care. If your symptoms become [...] opioids can be used to help relieve qkcofhns-hi-pxstwn pain and are often prescribed following a [...] as well, even when taken as directed: ??? Tolerance???meaning you might need to take more of the medication for the same pain relief ??? Physical dependence???meanin g you have symptoms of withdrawal when a medication is stopped ??? Increased sensitivity to pain ??? Constipation ??? Nausea, vomiting, and dry mouth ??? Sleepiness and dizziness ??? Confusion ??? Depression ??? Low levels of testosterone that can result in lower sex drive, energy, and strength ??? Itching and sweating RISKS ARE GREATER WITH: ??? History of drug misuse, substance use disorder, or overdose ??? Mental health conditions (such as depression or anxiety) ??? Sleep apnea ??? Older age (65 years and older) ??? Avoid alcohol while taking prescription opioids. Also, unless specifically advised by your health care provider, medications to avoid include: ??? Benzodiazepines (such as Xanax or Valium) ??? Muscle relaxants (such as Soma or Flexeril) ??? Hypnotics (such as Ambien or Lunesta) ??? Other prescription opioids KNOW YOUR OPTIONS Talk to your health care provider about ways to manage your pain that don???t involve prescription opioids. Some of these options may actually work better and have fewer risks and side effects. Options may include: ??? Pain relievers such as acetaminophen, ibuprofen, and naproxen ??? Some medication that are also used for depression or seizures ??? Physical therapy and exercise ??? Cognitive behavioral therapy, a psychological, goal-directed approach, in which patients learn how to modify physical, behavioral, and emotional triggers of pain and stress. IF YOU ARE PRESCRIBED OPIOIDS FOR PAIN: ??? Never take opioids in greater amounts or more often than prescribed. ??? Follow up with your primary health care provider. o Work together to create a plan on how to manage your pain. o Talk about ways to help manage your pain that don???t involve prescription opioids. o Talk about any and all concerns and side effects. ??? Help prevent misuse and abuse o Never sell or share prescription opioids. o Never use another person???s prescription opioids. ??? Store prescription opioids in a secure place and out of reach of others (this may include visitors, children, friends, and family). ??? Safely dispose of unused prescription opioids: Find your community drug take-back program or your pharmacy mail-back program, or flush them down the toilet, following guidance from the Food and Drug Administration (www.fda.gov/Drugs/ ResourcesForYou). ??? Visit www.cdc.gov/drugove rdose to learn about the risks of opioids abuse and overdose. ??? If you believe you may be struggling with addiction, tell your health md do resident urgent care and ask for guidance or call [facility]???S National Helpline at 0-020-399-EEBN. s Source: [place] Department of Health and Human Services/Center for Disease Control & Prevention [facility] (more content not included)... Normal [facility] HEMATOLOGYOrdered By: Ryder Jacobs on 10-29-2024 Basophils/100 WBC (Bld) 0.9 % Normal 0.0 - 2.0 % Remisol Heme Basophils/Leukocytes Auto (Bld) [Pure # fraction] 0.0 E9/L Normal 0.0 - 0.2 E9/L Remisol Heme Eosinophils (Bld) [#/Vol] 0.1 E9/L Normal 0.0 - 0.5 E9/L Remisol Heme Eosinophils/100 WBC (Bld) 2.3 % Normal 0.0 - 8.0 % Remisol Heme Erythrocyte distribution width (RBC) [Ratio] 14.2 % Normal 10.9 - 14.2 % Remisol Heme Hematocrit (Bld) [Volume fraction] 42.7 % Normal 34.0 - 46.0 % Remisol Heme Hemoglobin (Bld) [Mass/Vol] 14.7 g/dL Normal 12.0 - 16.0 gm/dL Remisol Heme Lymphocytes (Bld) [#/Vol] 1.8 E9/L Normal 1.0 - 4.0 E9/L Remisol Heme Lymphocytes/100 WBC (Bld) 42.1 % Normal 14.0 - 50.0 % Remisol Heme MCH (RBC) [Entitic mass] 33.5 pg Normal 27.0 - 34.0 pg Remisol Heme MCHC (RBC) [Mass/Vol] 34.4 g/dL Normal 31.4 - 36.0 gm/dL Remisol Heme MCV (RBC) [Entitic vol] 97.5 fL Normal 80.0 - 100.0 fL Remisol Heme Monocytes (Bld) [#/Vol] 0.4 E9/L Normal 0.2 - 1.0 E9/L Remisol Heme Monocytes/100 WBC (Bld) 9.0 % Normal 4.0 - 14.0 % Remisol Heme Neutrophils (Bld) [#/Vol] 1.9 E9/L Low 2.0 - 7.5 E9/L Remisol Heme Neutrophils/100 WBC (Bld) 45.7 % Normal 36.0 - 75.0 % Remisol Heme Platelet mean volume (Bld) [Entitic vol] 6.9 fL Normal 6.4 - 10.8 fL Remisol Heme Platelets (Bld) [#/Vol] 170.0 E9/L Normal 150.0 - 500.0 E9/L Remisol Heme RBC (Bld) [#/Vol] 4.4 E12/L Normal 4.3 - 5.9 E12/L Re misol Heme WBC corrected for nucl RBC Auto (Bld) [#/Vol] 4.2 E9/L Normal 4.0 - 11.0 E9/L Remisol Heme Hep Func Panelon 10-29-2024 Albumin [Mass/Vol] 4.0 g/dL Normal 3.3-5.0 [facility] Comment on above: Performed By: #### 2 [id number] #### [facility] [address] [place] [address] Albumin/Globulin (S) [Mass conc ratio] 1.4 Normal 1.1-2.2 [facility] Comment on above: Performed By: #### 2 [id number] #### [facility] [address] [place] [address] ALP [Catalytic activity/Vol] 102 Int._Unit/L High 21-98 [facility] Comment on above: Performed By: #### 2 [id number] #### [facility] [address] [place] [address] ALT No additional P-5'-P [Catalytic activity/Vol] 13 Int._Unit/L Normal 6-46 [facility] Comment on above: Performed By: #### 2 [id number] #### [facility] [address] [place] [address] AST [Catalytic activity/Vol] 14 Int._Unit/L Normal 5-43 [facility] Comment on above: Performed By: #### 2 [id number] #### [facility] [address] [place] [address] Bilirubin [Mass/Vol] 0.5 mg/dL Normal 0.0-1.1 [facility] Comment on above: Performed By: #### 2 [id number] #### [facility] [address] [place] [address] Bilirubin.direct [Mass/Vol] 0.1 mg/dL Normal 0.0-0.4 [facility] Comment on above: Performed By: #### 2 [id number] #### [facility] [address] [place] [address] Bilirubin.indirect [Mass or moles/Vol] 0.4 mg/dL Normal 0.1-0.9 [facility] Comment on above: Performed By: #### 2 [id number] #### [facility] [address] [place] [address] Globulin (S) [Mass/Vol] 2.9 g/dL Normal 1.4-4.0 [facility] Comment on above: Performed By: #### 2 [id number] #### [facility] [address] [place] [address] Protein [Mass/Vol] 6.9 g/dL Normal 6.0-7.8 [facility] Comment on above: Performed By: #### 2 [id number] #### [facility] [address] [place] [address] Inpatient Clinical Summaryon 10-29-2024 Inpatient Clinical Summary Inpatient Clinical Summary [address] [address] Clinical Summary Person Information: Name: LIVIA JACOBO Age: 64 Years : 1960 Sex: Female PCP: Dorie Luis MD Marital Status: Race: White Ethnicity: Non- or Language: Honduran Visit Id: Visit Reason: Nausea; Shortness of breath; Chest pain; CHEST PAIN Speciality: Acuity: Enc Type: Observation Med Service: Medical Arrival: 10/29/2024 07:41:11 Discharge: Dispo Type: Admitted as IP to this Hosp Address: [facility] [id number] Provider Notes: Diagnosis: 3:CAD (coronary artery disease); 4:HLD (hyperlipidemia); 5:HTN (hypertension), benign; 6:RLS (restless legs syndrome); 7:Anxiety and depression; 8:Primary insomnia; 9:Tobacco abuse; 10:Obese; Depression, unspecified Problems Active Back pain Major depressive disorder, recurrent, moderate Chest pain syndrome Sinus infection Fatigue History of ST elevation myocardial infarction (STEMI) Atherosclerosis of aorta History of total abdominal hysterectomy Walker as ambulation aid Polyneuropathy (02/10/2023) COPD (chronic obstructive pulmonary disease) (09/15/2022) Anxiety and depression (09/13/2022) HTN (hypertension), benign (09/13/2022) Primary insomnia (09/13/2022) RLS (restless legs syndrome) (09/13/2022) Current smoker (09/13/2022) Smoking Status: Current Every Day Smoker Functional Status: Sensory Deficits: History of Falls: Within last three months Mobility Assistance Prior to Admission: Partial assistance ADLs: Minimal assistance Current Level of Assistance for Self-Care/Mobility: Cognitive Status: Oriented x 3 Allergies BuSpar (Migraine) (Unknown) Lyrica (Feels drunk, falls down) sulfamethoxazole (Unknown (origin)) Tape (Sensitive) sulfa drugs (Rash) Nicotine Patch (Rash) Measurements: Height: 160.02 cm Weight: 76.9 kg Blood Pressure: 137 mmHg / 79 mmHg BMI: 6.6 kg/m2 Procedures No Procedures Documented Immunizations No Immunizations Documented This Visit Final Med List: acetaminophen (acetaminophen 325 mg Tab) 2 Tablets By Mouth every 6 hours as needed Pain. albuterol (Albuterol (Eqv-ProAir HFA) 90 mcg/inh inhalation [...] Tablets By Mouth every day. Refills: 5. azithromycin (azithromycin 500 mg oral tablet) 1 Tablets By Mouth every day. Refills: 0. budesonide/formoter ol/glycopyrrolate (Breztri Aerosphere) 2 Puffs Inhalation 2 times a day. carvedilol (carvedilol 12.5 mg Tab) 1 Tablets By Mouth 2 times a day. Refills: 2. isosorbide mononitrate (isosorbide mononitrate 30 mg ER Tab) 1 Tablets By Mouth 2 times a day. Refills: 6. lamotrigine (Lamictal 25 mg Tab) 3 Tablets By Mouth once a day (at bedtime). losartan (losartan 100 mg Tab) 1 Tablets By Mouth every day. [facility]: [facility]. [facility] (Handicap Placrock, 5 years.) Handicap Placard, 5 years.. Refills: 0. nitroglycerin (nitroglycerin 0.4 mg sublingual Tab) 1 Tablets Sublingual every 5 minutes as needed Chest pain. Refills: 6. olanzapine (ZyPREXA 5 mg Tab) 1 Tablets By Mouth once a day (at bedtime). one tablet at bedtime. prasugrel (prasugrel 10 mg Tab) 1 Tablets By Mouth every day. Refills: 5. predniSONE (predniSONE 20 mg Tab) 2 Tablets By Mouth every day. Refills: 0. quetiapine (quetiapine 100 mg Tab) 1 Tablets [...] (at bedtime). Care Team Members: Attending Physician: Edmund Klein DO Consulting Physician: Referring Physician: Follow up: With: Address: When: Amilcar Matthews PA-C 11/05/2024 9:30 AM Comments: The doctor's office cancelled this Tuesday appoinment. With: Address: When: Fidencio POSEY, Dorie Jean Baptiste, [facility], MED 10/31/2024 2:30 PM Type Location Start [facility] ER/Hospital Follow Up [facility] 10/31/2024 2:30 PM 10/31/2024 3:00 PM Confirmed Cardiology Follow Up (FT) [facility] 11/05/2024 9:30 AM 11/05/2024 9:45 AM Confirmed Vascular New Patient (FT) [facility] Clinic 12/03/2024 11:00 AM 12/03/2024 11:15 AM Confirmed FM Open [facility] 01/07/2025 1:00 PM 01/07/2025 1:15 PM Confirmed FM Medicare Wellness Subsequent [facility] 06/18/2025 2:30 PM 06/18/2025 3:30 PM Confirmed (more content not included)... Normal [facility] Inpatient Patient Summaryon 10-29-2024 Inpatient Patient Summary Inpatient Patient Summary LIVIA JACOBO :1960 Visit Date:10/29/2024 Inpatient Discharge Instructions Your Care Team Admitting Physician - Edmund Klein DO Reason for Your Visit SOB, chest pain Your Diagnosis COPD exacerbation Chest pain CAD (coronary artery disease) HLD (hyperlipidemia) HTN (hypertension), benign RLS (restless legs syndrome) Anxiety and depression Primary insomnia Tobacco abuse Obese Chest pain Costochondritis Depression, unspecified Nausea Shortness of breath Tests Performed BMP -- Results Pending -- CBC w/ Auto Diff -- Results Pending -- XR Chest Single View Please visit your patient portal for your results or contact your primary care physician. This Is Your Medications List [facility] Prescription (Rosangela Gautam, 5 years.) acetaminophen (acetaminophen 325 mg Tab) albuterol (Albuterol (Eqv-ProAir HFA) 90 mcg/inh inhalation aerosol) alprazolam (alprazolam 1 mg Tab) aspirin (aspirin 81 mg Oral EC Tab) atorvastatin (atorvastatin 80 mg Tab) azithromycin (azithromycin 500 mg oral tablet) budesonide/formoter ol/glycopyrrolate (Breztri Aerosphere) carvedilol (carvedilol 12.5 mg Tab) isosorbide mononitrate (isosorbide mononitrate 30 mg ER Tab) lamotrigine (Lamictal 25 mg Tab) losartan (losartan 100 mg Tab) nitroglycerin (nitroglycerin 0.4 mg sublingual Tab) olanzapine (ZyPREXA 5 mg Tab) prasugrel (prasugrel 10 mg Tab) predniSONE (predniSONE 20 mg Tab) quetiapine (quetiapine 100 mg Tab) ranolazine (Ranexa 500 mg Tab-ER) ropinirole (ropinirole 1 mg Tab) trazodone (traZODONE 100 mg Tab) venlafaxine (Effexor XR 150 mg Cap-ER) Procedure History PCI - Percutaneous coronary intervention (07/09/2023), Angioplasty, Gallbladder, Hysterectomy. Discharge Vitals Temperature (Axillary) 36.8 ???C Heart Rate (Monitored) 82 Respiratory Rate 18 Blood Pressure 137/79 Height 160.02 cm Weight 76.9 kg BMI 6.6 What to do next Instructions From Your Doctor Event Name Event Result Pending Diagnostic Test Results None Discharge Instructions Please return to ER if symptoms change or worsen. Previously Scheduled Follow-Up Appointments Tuesday 2:30 PM EST With: Dorie Luis MD Where: [address] [id number]- Tuesday 9:30 AM EST With: Amilcar Matthews PA-C Where: Cardiology Clinic Tuesday 11:00 AM EST With: Abhi POSEY, Lexis Sauceda Where: Vascular Clinic Tuesday 1:00 PM EST With: Dorie Luis MD Where: [address] [id number]- Tuesday 2:30 PM EDT With: Where: [address] [address]- New Follow Up Appointments after Discharge Follow Up with Amilcar Matthews PA-C When: 11/05/2024 09:30 AM EST Comments: The doctor's office cancelled this Tuesday appoinment. Where: Follow Up with Fidencio POSEY, Dorie Jean Baptiste [facility], [facility] When: 10/31/2024 02:30 PM EST Where: Medications What How Much When Why Instructions Next Dose New azithromycin (azithromycin 500 mg oral tablet) 1 Tablets By Mouth Every day Pickup at [facility]/pharmacy #[id number] 10/30 @ 899 New predniSONE (predniSONE 20 mg Tab) 2 Tablets By Mouth Every day Pickup at [facility]/pharmacy #[id number] 10/30 Unchanged acetaminophen (acetaminophen 325 mg Tab) 2 Tablets By Mouth Every 6 hours as needed for Pain as needed Unchanged albuterol (Albuterol (Eqv-ProAir HFA) 90 mcg/ inh inhalation aerosol) 2 Puffs Inhalation Every 4 hours as needed for Shortness of breath or wheezing as needed as needed Unchanged alprazolam (alprazolam 1 mg Tab) 1 Tablets By Mouth 4 times a day as needed for for anxiety as needed Unchanged aspirin (aspirin 81 mg Oral EC Tab) 1 Tablets By Mouth Every day 10/30 @ 0900 Unchanged atorvastatin (atorvastatin 80 mg Tab) 1 Tablets By Mouth Every day 10/3000 Unchanged budesonide/ formoterol/ glycopyrrolate (Breztri Aerosphere) 2 Puffs Inhalation 2 times a day 10/29 @ 9pm Unchanged carvedilol (carvedilol 12.5 mg Tab) 1 Tablets By Mouth 2 times a day 10/29 @ 9pm Unchanged isosorbide mononitrate (isosorbide mononitrate 30 mg ER Tab) 1 Tablets By Mouth 2 times a day 10/29 @ 9pm Unchanged lamotrigine (Lamictal 25 mg Tab) 3 Tablets By Mouth Once a day (at bedtime) 10/29 @ 9pm Unchanged losartan (losartan 100 mg Tab) 1 Tablets By Mouth Every day 10/29 @ 0900 Unchanged Misc Prescription (Handicap Placrock, 5 years.) See instructions Anxiety and depression Depression, unspecified HTN (hypertension), benign RLS (restless legs syndrome) Chronic obstructive pulmonary disease, unspecified COPD type Primary insomnia Current smoker Polyneuropathy Walker as ambulation aid Adult BMI 33.0-33.9 (more content not included)... [facility] Inpatient Patient Summary Inpatient Patient Summary [place] [id number] Patient Discharge Instructions PERSON INFORMATION Name: LIVIA JACOBO Date of : 1960 Current Date: 10/29/2024 13:09:15 PHYSICIANS Admitting Physician: Edmund Klein DO Primary Care Physician: Dorie Luis MD PCP Comment: Discharge Diagnosis: 3:CAD (coronary artery disease); 4:HLD (hyperlipidemia); 5:HTN (hypertension), benign; 6:RLS (restless legs syndrome); 7:Anxiety and depression; 8:Primary insomnia; 9:Tobacco abuse; 10:Obese; Depression, unspecified Condition at Discharge: Improved LIVIA JACOBO has [...] Treatment: Devices/Equipment: Walker Special Services: Additional Instructions: Please return to ER if symptoms change or worsen. Primary Care Physician to provide the following pending test results: None Follow up: With: Address: When: Amilcar Matthews PA-C 11/05/2024 9:30 AM Comments: The doctor's office cancelled this Tuesday appoinment. With: Address: When: Dorie Luis MD, [facility], [facility] 10/31/2024 2:30 PM In the event that this physician does not participate in your insurance network, please consult with your insurance company to find a nearby participating provider. Type Location Start [facility] ER/Hospital Follow Up [facility] 10/31/2024 2:30 PM 10/31/2024 3:00 PM Confirmed Cardiology Follow Up (FT) [facility]Cardiology Clinic 11/05/2024 9:30 AM 11/05/2024 9:45 AM Confirmed Vascular New Patient (FT) FT[facility]Vascular Clinic 12/03/2024 11:00 AM 12/03/2024 11:15 AM Confirmed FM Open [facility] 01/07/2025 1:00 PM 01/07/2025 1:15 PM Confirmed FM Medicare Wellness Subsequent [facility] 06/18/2025 2:30 PM 06/18/2025 3:30 PM Confirmed Comment: DONNELL Green ALICE, have received the attached patient education materials/instructi ons and have verbalized understanding: Patient Signature Date Clinican/Nurse Signature Date HERE ARE THE MEDICATION CHANGES THAT OCCURRED DURING YOUR HOSPITAL STAY New Medications [id number], [address], [place] [id number], [phone] azithromycin (azithromycin 500 mg oral tablet) 1 Tablets By Mouth every day. Refills: 0. Last Dose: Next Dose: predniSONE (predniSONE 20 mg Tab) 2 Tablets By Mouth every day. Refills: 0. Last Dose: Next Dose: Medications to Continue with No Changes Other Medications acetaminophen (acetaminophen 325 mg Tab) 2 Tablets By Mouth every 6 hours as needed Pain. Last Dose: Next Dose: albuterol (Albuterol (Eqv-ProAir HFA) 90 mcg/inh inhalation aerosol) 2 Puffs Inhalation every 4 hours as needed Shortness of breath or wheezing. as needed. Last Dose: Next Dose: alprazolam [...] times a day. Last Dose: Next Dose: carvedilol (carvedilol 12.5 mg Tab) 1 Tablets By Mouth 2 times a day. Refills: 2. Last Dose: Next Dose: isosorbide mononitrate (isosorbide mononitrate 30 mg ER Tab) 1 Tablets By Mouth 2 times a day. Refills: 6. Last Dose: Next Dose: lamotrigine (Lamictal 25 mg Tab) 3 Tablets By Mouth once a day (at bedtime). Last Dose: Next Dose: losartan (losartan 100 mg Tab) 1 Tablets By Mouth every day. Refills: 5. Last Dose: Next Dose: Misc Prescription (Handicap Placard, 5 years.) Handicap Placard, 5 years.. Refills: 0. Last Dose: Next Dose: nitroglycerin (nitroglycerin 0.4 mg sublingual Tab) 1 Tablets Sublingual every 5 minutes as needed Chest pain. Refills: 6. Last Dose: Next Dose: olanzapin (more content not included)... [facility] Interdisciplinary Note - Layo e Manageron 10-29-2024 Interdisciplinary Note - Packager Head Interdisciplinary Note - Packager Head CRM to room 322 Patient is awake, alert and oriented. Patient is from home with her Daughter. She may need a ride home at DC. Patient verified PCP, DME and insurance. Patient is an observation for CP. Patient is assigned to Dr klein with cardiology on case. Per patient she said she thinks cardiology cleared her and wants to know if she will DC. CRM messaged DR klein. Patient declined any DC needs for DME, HH or Paramed. Patient was provided CRM contact, white board updated. CRM following [facility] Comment on above: Result Comment: Elec tronically Signed By: Shikha Morales\.br\Date and Time Signed: 10/29/24 11:46 EST Lipase Levelon 10-29-2024 Lipase [Catalytic activity/Vol] 21 U/L Normal 13-58 [facility] Comment on above: Performed By: #### 2 [id number] #### [facility] [address] [place] [address] PT & PTTon 10-29-2024 aPTT Coag (PPP) [Time] 32.8 second(s) Normal 25.1-36.5 [facility] Comment on above: Result Comment: Para [...] the same coagulation reagent and instrumentation as [facility] Currently there are no coagulation studies available worldwide for children to 14 days, and no normal ranges. Heparin therapeutic range (represented by Anti-Factor Xa activity of 0.2 - 0.4 U/mL) corresponds to PTT of 56.6 - 109.0 sec. Performed By: #### 1 [id number] #### [facility] [address] [place] [address] INR Coag (PPP) [Relative time] 0.96 {INR} Invalid Interpretation Code [facility] Comment on above: Result Comment: INR results are specifically intended to assess patients stabilized on long-term Anticoagulation therapy suggested INR???s ???Less Intensive Anticoagulation??? 2.0 ??? 3.0 Conventional Range 3.0 ??? 4.5 Performed By: #### 1 [id number] #### [facility] [address] [place] [address] PT Coag (PPP) [Time] 10.7 second(s) Normal 9.4-12.5 [facility] Comment on above: Result Comment: 15 [...] the same coagulation reagent and instrumentation as [facility]. Currently there are no coagulation studies available worldwide for children to 14 days, and no normal ranges. Performed By: #### 1 [id number] #### [facility] [address] [place] [address] Pre-Arrival Noteon Pre-Arrival Note Pre-Arrival Note Pre-Arrival Summary Name: , nckaren Current Date: 10/29/2024 07:41:39 EST Gender: Female Date of : Age: 64 Pre-Arrival Type: EMS ETA: 10/29/2024 07:55:00 EST Primary Care Physician: Presenting Problem: chest pain Pre-Arrival User: Lia Corbett Referring Source: Location: [place] Completion Date/Time: 10/29/2024 07:25:00 [facility] Emergency Department Pre-Hospital Report Form ___ Vital Signs: Pre-Hospital Report: Treatment in Route: Response to Treatment: Misc. Issues: [facility] Troponin 0 Hr.on 10-29-2024 Troponin HS 7.70 pg/mL Low 10.10-27.10 [facility] Comment on above: Result Comment: The 95% CI (Confidence Interval) PPV (Positive Predictive Value) for myocardial infarction in females is 38 pg/mL, in males 51 pg/mL. The results should be used in conjunction with clinical conditions of myocardial infarction. (Access High Sensitivity Troponin I Instructions For Use, Shivani Paris, June 2018) Performed By: #### 1 [id number] #### [facility] [address] [place] [address] Troponin 1 Hr.on 10-29-2024 Troponin HS 7.20 pg/mL Low 10.10-27.10 [facility] Comment on above: Order Comment: Due a t 0853 Result Comment: The 95% CI (Confidence Interval) PPV (Positive Predictive Value) for myocardial infarction in females is 38 pg/mL, in males 51 pg/mL. The results should be used in conjunction with clinical conditions of myocardial infarction. (Access High Sensitivity Troponin I Instructions For Use, [employer], June 2018) Performed By: #### 1 [id number] ####[facility] [address] [place] [address] XR Chest Single Viewon 10-29 XR Chest Single View Exam Date/Time: 10/29/2024 08:20 EST Reason for Exam: Chest pain Report IMPRESSION: NO ACUTE CARDIOPULMONARY DISEASE. CLINICAL HISTORY: Chest pain COMPARISON: 08/13/2024 FINDINGS: Patient rotated to left. Osseous structures are intact. Cardiopericardial silhouette is normal. Pulmonary vasculature is normal. Lungs are clear. Ordering Provider: Lawrence Elise FINAL REPORT Dictated: 10/29/2024 8:23 am Jamie Gresham MD Signed (Electronic Signature): 10/29/2024 8:23 am Signed by: Jamie Gresham MD Transcribed by: DP Technologist: CC Technical Comments Radiation Dose: Ka,r in mGy = na DAP = na [facility] eGFRon 10-29-2024 eGFR 99 mL/min/1.73 m2 Normal >=59 [facility] Comment on above: Performed By: #### 1 [id number] #### [facility] [address] [place] [address] BMPon 10-10-2024 Anion gap [Moles/Vol] 9 mmol/L Normal 04-29 [facility] Comment on above: Performed By: #### 2 [id number] #### [facility] [address] [place] [address] Calcium [Mass/Vol] 9.2 mg/dL Normal 8.9-11.1 [facility] Comment on above: Performed By: #### 2 [id number] #### [facility] [address] [place] [address] Chloride [Moles/Vol] 103 mmol/L Normal 101-111 [facility] Comment on above: Performed By: #### 2 [id number] #### [facility] [address] [place] [address] CO2 [Moles/Vol] 30 mmol/L Normal 21-31 [facility] Comment on above: Performed By: #### 2 [id number] #### [facility] [address] [place] [address] Creatinine [Mass/Vol] 0.7 mg/dL Normal 0.5-1.3 [facility] Comment on above: Performed By: #### 2 [id number] #### [facility] [address] [place] [address] Glucose [Mass/Vol] 85 mg/dL Normal 55-199 [facility] Comment on above: Performed By: #### 2 [id number] #### [facility] [address] [place] [address] Potassium [Moles/Vol] 3.9 mmol/L Normal 3.5-5.3 [facility] Comment on above: Performed By: #### 2 [id number] #### [facility] [address] [place] [address] Sodium [Moles/Vol] 138 mmol/L Normal 135-145 [facility] Comment on above: Performed By: #### 2 [id number] #### [facility] [address] [place] [address] Urea nitrogen [Mass/Vol] 9 mg/dL Normal 5-21 [facility] Comment on above: Performed By: #### 2 [id number] #### [facility] [address] [place] [address] Urea nitrogen/Creatinine [Mass ratio] 13 No Units Normal 10-20 [facility] Comment on above: Performed By: #### 2 [id number] #### [facility] [address] [place] [address] CBC w/ Auto Diffon 4 Basophils/100 WBC (Bld) 1.5 % Normal 0.0-2.0 [facility] Comment on above: Performed By: #### 2 [id number] #### [facility] [address] [place] [address] Basophils/Leukocytes Auto (Bld) [Pure # fraction] 0.1 E9/L Normal 0.0-0.2 [facility] Comment on above: Performed By: #### 2 [id number] #### [facility] [address] [place] [address] Eosinophils (Bld) [#/Vol] 0.1 E9/L Normal 0.0-0.5 [facility] Comment on above: Performed By: #### 2 [id number] #### [facility] [address] [place] [address] Eosinophils/100 WBC (Bld) 2.5 % Normal 0.0-8.0 [facility] Comment on above: Performed By: #### 2 [id number] #### [facility] [address] [place] [address] Erythrocyte distribution width (RBC) [Ratio] 13.5 % Normal 10.9-14.2 [facility] Comment on above: Performed By: #### 2 [id number] #### [facility] [address] [place] [address] Hematocrit (Bld) [Volume fraction] 43.5 % Normal 34.0-46.0 [facility] Comment on above: Performed By: #### 2 [id number] #### [facility] [address] [place] [address] Hemoglobin (Bld) [Mass/Vol] 15.2 g/dL Normal 12.0-16.0 [facility] Comment on above: Performed By: #### 2 [id number] #### [facility] [address] [place] [address] Lymphocytes (Bld) [#/Vol] 1.5 E9/L Normal 1.0-4.0 [facility] Comment on above: Performed By: #### 2 [id number] #### [facility] [address] [place] [address] Lymphocytes/100 WBC (Bld) 35.8 % Normal 14.0-50.0 [facility] Comment on above: Performed By: #### 2 [id number] #### [facility] [address] [place] [address] MCH (RBC) [Entitic mass] 33.7 pg Normal 27.0-34.0 [facility] Comment on above: Performed By: #### 2 [id number] #### [facility] [address] [place] [address] MCHC (RBC) [Mass/Vol] 34.9 g/dL Normal 31.4-36.0 [facility] Comment on above: Performed By: #### 2 [id number] #### [facility] [address] [place] [address] MCV (RBC) [Entitic vol] 96.6 fL Normal 80.0-100.0 [facility] Comment on above: Performed By: #### 2 [id number] #### [facility] [address] [place] [address] Monocytes (Bld) [#/Vol] 0.4 E9/L Normal 0.2-1.0 [facility] Comment on above: Performed By: #### 2 [id number] #### [facility] [address] [place] [address] Neutrophils (Bld) [#/Vol] 2.0 E9/L Normal 2.0-7.5 [facility] Comment on above: Performed By: #### 2 [id number] #### [facility] [address] [place] [address] Neutrophils/100 WBC (Bld) 50.6 % Normal 36.0-75.0 [facility] Comment on above: Performed By: #### 2 [id number] #### [facility] [address] [place] [address] Platelet 229.0 E9/L Normal 150.0-500.0 [facility] Comment on above: Performed By: #### 2 [id number] #### [facility] [address] [place] [address] Platelet mean volume (Bld) [Entitic vol] 6.9 fL Normal 6.4-10.8 [facility] Comment on above: Performed By: #### 2 [id number] #### [facility] [address] [place] [address] RBC (Bld) [#/Vol] 4.5 E12/L Normal 4.3-5.9 [facility] Comment on above: Performed By: #### 2 [id number] #### [facility] [address] [place] [address] WBC corrected for nucl RBC Auto (Bld) [#/Vol] 4.1 E9/L Normal 4.0-11.0 [facility] Comment on above: Performed By: #### 2 [id number] #### [facility] [address] [place] [address] CHEMISTRYOrdered By: SYSTEM SYSTEM on 10-10-2024 Albumin [Mass/Vol] 4.2 g/dL Normal 3.3 - 5.0 gm/dL R emisol Chem Albumin/Globulin [Mass ratio] 1.4 {ratio} Normal 1.1 - 2.2 Remisol Chem ALP [Catalytic activity/Vol] 117 [iU]/d High 21 - 98 Int._Unit/L Remisol Chem ALT No additional P-5'-P [Catalytic activity/Vol] 14 [iU]/d Normal 6 - 46 Int._Unit/L Remisol Chem Anion gap [Moles/Vol] 9 mmol/L Normal 6 - 16 mEq/L Remisol Chem AST [Catalytic activity/Vol] 16 [iU]/d Normal 5 - 43 Int._Unit/L Remisol Chem Bilirubin [Mass/Vol] 0.6 mg/dL Normal 0.0 - 1.1 mg/dL Remisol Chem Bilirubin.direct [Mass/Vol] 0.1 mg/dL Normal 0.0 - 0.4 mg/dL Remisol Chem Bilirubin.indirect [Mass or moles/Vol] 0.5 mg/dL Normal 0.1 - 0.9 mg/dL Remisol Chem Calcium [Mass/Vol] 9.2 mg/dL Normal 8.9 - 11.1 mg/dL Remisol Chem Chloride [Moles/Vol] 103 mmol/L Normal 101 - 111 mmol/ L Remisol Chem CO2 [Moles/Vol] 30 mmol/L Normal 21 - 31 mmol/L Remis ol Chem Creatinine [Mass/Vol] 0.7 mg/dL Normal 0.5 - 1.3 mg/dL Remisol Chem eGFR 96 mL/min/1.73 m2 Normal >=59mL/min/1.73 m2 Remisol Chem Globulin (S) [Mass/Vol] 2.9 g/dL Normal 1.4 - 4.0 gm/dL Remisol Chem Glucose [Mass/Vol] 85 mg/dL Normal 55 - 199 mg/dL Re misol Chem Potassium [Moles/Vol] 3.9 mmol/L Normal 3.5 - 5.3 mmol/L Remisol Chem Protein [Mass/Vol] 7.1 g/dL Normal 6.0 - 7.8 gm/dL R emisol Chem Sodium [Moles/Vol] 138 mmol/L Normal 135 - 145 mmol/L Remisol Chem Urea nitrogen [Mass/Vol] 9 mg/dL Normal 5 - 21 mg/dL Remisol Chem Urea nitrogen/Creatinine [Mass ratio] 13 mg/mg Normal 10 - [address] Spine Lumbar w/o Contrast on 10-10-2024 CT Spine Lumbar w/o Contrast Exam Date/Time: 10/10/2024 15:56 EST Reason for Exam: Trauma Report IMPRESSION: NO ACUTE FRACTURE OR ACUTE OSSEOUS PROCESS IDENTIFIED. CHRONIC, DEGENERATIVE AND POSTOPERATIVE CHANGES, DESCRIBED DETAIL. EXAM: CT Spine Lumbar w/o Contrast DATE: 10/10/2024 3:45 PM CLINICAL HISTORY: Back pain and lower extremity weakness/unsteadine ss. COMPARISON: None available. TECHNIQUE: Spiral imaging was obtained of the lumbar spine, with routine multiplanar reconstructions performed. All CT scans at this facility use dose modulation, iterative reconstruction, and/or weight based dosing when appropriate to reduce radiation dose to as low as reasonably achievable. FINDINGS: The spine is visualized from the T11-T12 through the S4 levels, assuming no transitional vertebrae. A mild chronic compression fracture of the superior endplate of L2 is present with approximately 10% loss of height anteriorly. There is no other fracture, dislocation, evidence of instability, worrisome bone destruction or acute paraspinal soft tissue abnormalities identified. Postoperative changes from previous posterior fusion L4-S1 with L5 laminectomy. Mild rotary levoscoliosis. Approximately 5 mm of retrolisthesis of L1 over L2. Lower thoracic spine: Visualized lower thoracic canal and foramina are without significant narrowing. L1-2: Mild to moderate disc space narrowing, mild posterolateral endplate osteophytosis and mild hypertrophic facet changes,, which results in moderate right neural foraminal narrowing. There is no central spinal stenosis, significant left neural foraminal narrowing, or sizable disc herniation. L2-3: Mild to moderate disc space narrowing, mild to moderate posterolateral endplate osteophytosis and mild hypertrophic facet changes,, which results in moderate right neural foraminal narrowing. There is no central spinal stenosis, significant left neural foraminal narrowing, or sizable disc herniation. Report L3-4: Mild to moderate diffuse disc bulging and moderate hypertrophic facet and ligamentum flavum changes, which results in moderate central spinal stenosis. L4-5: Postoperative changes. No central spinal stenosis or neural foraminal narrowing. L5-1: Postoperative changes. No central spinal stenosis or neural foraminal narrowing. Visualized bony pelvis: Noncontributory. Ordering Provider: Dioni Gallardo FINAL REPORT Dictated: 10/10/2024 4:16 pm Venancio Jean Baptiste MD Signed (Electronic Signature): 10/10/2024 4:16 pm Signed by: Venancio Jean Baptiste MD Transcribed by: JEANINE Technologist: MARKY Hannon [facility] ED Clinical Summaryon 2023 ED Clinical Summary ED Clinical Summary [place] [id number] ED Clinical Summary Person Information Name: LIVIA JACOBO/[facility] Age: 63 Years : 1960 Sex: Female Language: Honduran PCP: Dorie Luis MD Marital Status: Visit Id: Visit Reason: Weakness or fatigue; Back pain; BACK PAIN Speciality: Acuity: 3 Enc Type: Emergency Med Service: Emergency Arrival: 10/10/2024 13:11:31 Discharge: 10/10/2024 18:24:35 LOS: 000 05:13 Checkin: 10/10/2024 13:11:31 Checkout: 10/10/2024 18:24:35 Dispo Type: Home (Routine DC) EVENTS: Event Name Event Status Request Date/Time Start Date/Time Complete Date/Time Arrive Complete 10/10/2024 13:11:31 10/10/2024 13:11:31 10/10/2024 13:11:31 Document Home Meds Request 10/10/2024 13:11:31 Triage Complete 10/10/2024 13:11:31 10/10/2024 13:16:26 10/10/2024 13:16:26 Bed Assign Complete 10/10/2024 13:11:31 10/10/2024 13:11:31 10/10/2024 13:11:31 Dr Exam Complete 10/10/2024 13:11:31 10/10/2024 13:41:58 10/10/2024 13:41:58 RN Exam Complete 10/10/2024 13:11:31 10/10/2024 13:19:16 10/10/2024 13:19:16 EKG Complete 10/10/2024 13:15:11 10/10/2024 13:24:43 Fall Risk Request 10/10/2024 13:19:16 Registration Complete 10/10/2024 13:35:09 10/10/2024 13:35:09 10/10/2024 13:35:09 Reg Complete Request 10/10/2024 13:35:09 Reg Bed Request Complete 10/10/2024 13:35:09 10/10/2024 13:35:09 10/10/2024 13:35:09 Registration Request 10/10/2024 13:41:58 Pending Labs Complete 10/10/2024 14:31:27 10/10/2024 15:23:01 Lab Complete 10/10/2024 14:31:27 10/10/2024 15:19:23 Meds Admin Complete 10/10/2024 14:31:27 10/10/2024 14:40:44 CT Complete 10/10/2024 14:31:27 10/10/2024 15:45:06 10/10/2024 15:56:37 Pending Labs Complete 10/10/2024 14:50:11 10/10/2024 14:50:11 10/10/2024 15:19:23 Lab Complete 10/10/2024 14:50:11 10/10/2024 14:50:11 10/10/2024 15:19:23 Pending Labs Complete 10/10/2024 14:54:30 10/10/2024 14:54:30 10/10/2024 14:54:31 Discharge Complete 10/10/2024 16:47:41 10/10/2024 18:24:51 10/10/2024 18:24:51 Transfer Complete 10/10/2024 18:24:51 10/10/2024 18:24:51 10/10/2024 18:24:51 ADDRESS: [address] [place] [phone] PHYS DOC NOTES: MEDICAL INFORMATION: Prescriptions Given: New Medications [id number], [address], [place] [id number], [phone] acetaminophen-hydro codone ([place] 325 mg-5 mg oral tablet) 1 Tablets By Mouth every 6 hours as needed for pain for 3 Days. Refills: 0. methylPREDNISolone (Medrol 4 mg Tab) 1 Packets By Mouth As Directed for 6 Days. as directed on package labeling. Refills: 0. Medications to Continue with No Changes Other Medications acetaminophen (acetaminophen 325 mg Tab) 2 Tablets By Mouth every 6 hours as needed Pain. albuterol (Albuterol (Eqv-ProAir HFA) 90 mcg/inh inhalation [...] Inhalation 2 times a day. carvedilol (carvedilol 12.5 mg Tab) 1 Tablets By Mouth 2 times a day. Refills: 2. isosorbide mononitrate (isosorbide mononitrate 30 mg ER Tab) 1 Tablets By Mouth 2 times a day. Refills: 6. lamotrigine (Lamictal 25 mg Tab) 3 Tablets By Mouth once a day (at bedtime). losartan (losartan 100 mg Tab) 1 Tablets By Mouth every day. Refills: 5. Misc Prescription (Handicap Placard, 5 years.) Handicap [...] day (at bedtime). PATIENT EDUCATION INFORMATION: Instructions: Acute Back Pain, Adult Follow up: With: Address: Anh: Doriehenry Luis In 3 days 10/13/2024 Comments: Call the office of your primary care doctor to arrange for follow-up within the above-stated timeframe. Follow-up with your primary care doctor about this ED visit. You should review your labs, imaging, and diagnoses from this ED visit with your primary care physician. There are occasionally non-emergent findings that require additional follow- (more content not included)... [facility] ED Note-Nursingon 10-10-2024 ED Note-Nursing ED Note-Nursing Discharged patient at this time. Patient calling daughter at this time. Patient has no questions at this time about discharge information. [facility] ED Note-Physicianon 10-10-20 ED Note-Physician ED Note-Physician Basic Information Time Seen: Dioni Gallardo DO 10/10/2024 13:41 Chief Complaint pt presents to the ER d/t back pain for couple weeks. pt states that her legs are weak as well. pt feels like she is unsteady when walking. History of Present Illness 63-year-old female to the emergency department chief complaint of back pain that been ongoing for several weeks. Patient reports that she feels generally weak. She reports occasionally that her legs feel weak. She was seen at [facility] for this and admitted 2 weeks ago. She reports that she was on some pain medication at that time and things improved however it is again worsened. She is also followed up with her PCP. She reports that she has some rods in her back from a prior surgery and believes that things may be out of place. She would like imaging of her back. Review of Systems A 10 point review of systems is negative except as noted above. Medical and Surgical History: Reviewed and noted Social history: Lives at home Tobacco: Denies Physical Exam Vitals & Measurements T: 36.7 ???C(Oral) HR: 66(Monitored) RR: 20 BP: 199/105 SpO2: 94% HT: 162.5 cm WT: 77.7 kg BMI: 29.42 VITALS: I have reviewed the triage vital signs. GENERAL: Well developed, well appearing adult in no acute distress. NEURO: Alert and oriented. Moves all extremities. Face is symmetric and expressive. Patellar reflexes brisk and equal bilaterally. Normal gait. Plantar flexion/dorsiflexio n, knee flexion/extension, hip flexion/extension are grossly intact with 5/5 strength. Sensation is intact across the bilateral lower extremities. SPINE: No midline cervical, thoracic, or lumbar tenderness. No step-off or deformities. No paraspinal muscle tenderness or increased tone. EYES: PERRL. No scleral icterus or conjunctival injection. No discharge. HENT: Normocephalic, atraumatic. Hearing is grossly intact. Nares grossly patent and without discharge. Mucous membranes moist. NECK: No JVD. Patient moves neck without restriction. CARDIO: Rhythm regular. Normal rate. No murmur, rub, or gallop. Pulses equal bilaterally in the upper and lower extremity. No lower extremity edema. PULM: Lungs clear to auscultation in all rivera. No wheezes, rales, or rhonchi. No conversational dyspnea. No splinting, stridor, or accessory muscle use. GI/: Abdomen is soft and non-tender. Normoactive bowel sounds. No flank tenderness. EXTREMITIES: Symmetric muscle bulk. No joint swelling. No clubbing, cyanosis, or deformity. SKIN: Warm and dry. Normal turgor. No rash or lesions appreciated. PSYCH: Mood, affect, and interaction is appropriate to the setting. Medical Decision Making Well-appearing 63-year-old female to the emergency department chief complaint of back pain. Patient has a history of chronic back pain. Been exacerbated over the last few weeks. Recent stay at [facility] and had an improvement in the pain however it is again worsened. She reports that she did have a fall onto her back 2 weeks ago. She is concerned that her hardware may have been damaged. She would like imaging. She would like pain medication for her back. History and exam do not reveal any signs or symptoms of cord compressing lesion. There are no infectious symptoms. Lab work reviewed and noted. There are no major abnormalities. Urinalysis without evidence of infection. CT scan does not show any acute abnormality or fracture. Patient was given morphine and Zofran. Her symptoms did improve. She is able to ambulate without difficulty. She has full strength. I believe she is appropriate for short course of pain medication steroids and follow-up with her doctor. She agrees with this plan. Return precautions were discussed. All questions were answered. The patient was discharged home. Assessment/Plan Acute on chronic back pain (M54.9: Dorsalgia, unspecified) Ordered: acetaminophen-hydro codone, 1 tab(s), Oral, q6hr for pain for 3 day(s), 12 tab(s), Refill(s) 0, [id number], 162.5, cm, 10/10/24 13:16:00 EST, Height/Length Dosing, 77.7, kg, 10/10/24 13:16:00 EST, Weight Dosing Other chronic pain (G89.29: Other chronic pain) Orders: methylPREDNISolone, = 1 packet(s), Oral, As Directed, as directed on package labeling, X 6 day(s), # 21 tab(s), Refills(s) 0, Pharmacy: [id number], 162.5, cm, 10/10/24 13:16:00 EST, Height/Length Dosing, 77.7, kg, 10/10/24 13:16:00 EST, Weight Dosing morphine, 4 mg = 1 mL, Injection, IV Push, Once, Stop date 10/10/24 14:30:00 EST, STAT, Start date 10/10/24 14:30:00 EST, 10/10/24 14:30:00 EST ondansetron, 4 mg = 2 mL, Injection, IV Push, Once, Stop date 10/10/24 14:31:00 EST, STAT, Start date 10/10/24 14:31:00 EST, 10/10/24 14:31:00 EST Basic Metabolic Panel CBC w/ Auto Diff CT Spine Lumbar w/o Contrast ED Cardiac Monitoring eGFR Extra Blue Tube Extra SST Tube Hepatic Function Panel UA with Cult Rflx Medications Administered Given morphine 4 mg/mL Inj, 4 mg, IV Push Zofran 4 mg/2 mL (more content not included)... Normal [facility] Comment on above: Result Comment: Elec tronically Signed By: Dioni Gallardo DO\.br\Date and Time Signed: 10/10/24 18:53 EST ED Patient Summaryon 024 ED Patient Summary ED Patient Summary [place] [id number] Patient Discharge Instructions Person Information Name: LIVIA JACOBO Age: 63 Years Arrival Date: 10/10/2024 13:11:31 Discharge Diagnosis: Acute on chronic back pain; Other chronic pain Primary Care Physician: Fidencio POSEY, Dorie Jean Baptiste Provider Information Primary Provider: Dioni Gallardo DO Advanced Instrument Engineer:None The exam and treatment you received in the Emergency Department were for an urgent problem and are not intended as complete care. It is important that you follow up with a doctor, nurse practitioner, or physician???s assistant chief of police for ongoing care. If your symptoms become worse or you do not improve as expected and you are unable to reach your usual health care provider, you should return to the Emergency Department. We are available 24 hours a day. LIVIA JACOBO has been given the following list of patient education materials, prescriptions and follow-up instructions: Follow-up Instructions: With: Address: When: Dorie Luis In 3 days 10/13/2024 Comments: Call the office of your primary care doctor to arrange for follow-up within the above-stated timeframe. Follow-up with your primary care doctor about this ED visit. You should review your labs, imaging, and diagnoses from this ED visit with your primary care physician. There are occasionally non-emergent findings that require additional follow-up after your ED visit. If you were prescribed medications you should discuss possible side-effects and drug interactions with your pharmacist. Call 911 or go to the nearest Emergency Department if you develop any new or worsening symptoms. Seek immediate medical attention if you develop: increasing pain, numbness, tingling, weakness, loss of motion in your arms or legs, loss of control of your urine or stool, fever, abdominal pain, chest pain, shortness of breath, or any new or worsening symptoms. In the event that this physician does not participate in your insurance network, please consult with your insurance company to find a nearby participating provider. Patient Education Materials: Acute Back Pain, Adult A MESSAGE TO ALL PATIENTS REGARDING OPIOIDS PRESCRIPTION OPIOIDS: WHAT YOU NEED TO KNOW Prescription opioids can be used to help relieve llchwkxr-bz-sqmjnq pain and are often prescribed following a [...] as well, even when taken as directed: ??? Tolerance???meaning you might need to take more of the medication for the same pain relief ??? Physical dependence???meanin g you have symptoms of withdrawal when a medication is stopped ??? Increased sensitivity to pain ??? Constipation ??? Nausea, vomiting, and dry mouth ??? Sleepiness and dizziness ??? Confusion ??? Depression ??? Low levels of testosterone that can result in lower sex drive, energy, and strength ??? Itching and sweating RISKS ARE GREATER WITH: ??? History of drug misuse, substance use disorder, or overdose ??? Mental health conditions (such as depression or anxiety) ??? Sleep apnea ??? Older age (65 years and older) ??? Avoid alcohol while taking prescription opioids. Also, unless specifically advised by your health care provider, medications to avoid include: ??? Benzodiazepines (such as Xanax or Valium) ??? Muscle relaxants (such as Soma or Flexeril) ??? Hypnotics (such as Ambien or Lunesta) ??? Other prescription opioids KNOW YOUR OPTIONS Talk to your health care provider about ways to manage your pain that don???t involve prescription opioids. Some of these options may actually work better and have fewer risks and side effects. Options may include: ??? Pain relievers such as acetaminophen, ibuprofen, and naproxen ??? Some medication that are also used for depression or seizures ??? Physical therapy and exercise ??? Cognitive behavioral therapy, a psychological, goal-directed approach, in which patients learn how to modify physical, behavioral, and emotional triggers of pain and stress. IF YOU ARE PRESCRIBED OPIOIDS FOR PAIN: ??? Never take opioids in greater amounts or more often than prescribed. ??? Follow up with your primary health care provider. o Work together to create a plan on how to manage your pain. o Talk about ways to help manage your pain that don???t i (more content not included)... Normal [facility] Extra Blueon 10-10-2024 Tube Collected Plasma Yes Invalid Interpretation Code [facility] Comment on above: Performed By: #### 1 [id number] #### [facility] [address] [place] [id number] HEMATOLOGYOrdered By: SYSTEM SYSTEM on 10-10-2024 Basophils/100 WBC (Bld) 1.5 % Normal 0.0 - 2.0 % Remisol Heme Basophils/Leukocytes Auto (Bld) [Pure # fraction] 0.1 E9/L Normal 0.0 - 0.2 E9/L Remisol Heme Eosinophils (Bld) [#/Vol] 0.1 E9/L Normal 0.0 - 0.5 E9/L Remisol Heme Eosinophils/100 WBC (Bld) 2.5 % Normal 0.0 - 8.0 % Remisol Heme Erythrocyte distribution width (RBC) [Ratio] 13.5 % Normal 10.9 - 14.2 % Remisol Heme Hematocrit (Bld) [Volume fraction] 43.5 % Normal 34.0 - 46.0 % Remisol Heme Hemoglobin (Bld) [Mass/Vol] 15.2 g/dL Normal 12.0 - 16.0 gm/dL Remisol Heme Lymphocytes (Bld) [#/Vol] 1.5 E9/L Normal 1.0 - 4.0 E9/L Remisol Heme Lymphocytes/100 WBC (Bld) 35.8 % Normal 14.0 - 50.0 % Remisol Heme MCH (RBC) [Entitic mass] 33.7 pg Normal 27.0 - 34.0 pg Remisol Heme MCHC (RBC) [Mass/Vol] 34.9 g/dL Normal 31.4 - 36.0 gm/dL Remisol Heme MCV (RBC) [Entitic vol] 96.6 fL Normal 80.0 - 100.0 fL Remisol Heme Monocytes (Bld) [#/Vol] 0.4 E9/L Normal 0.2 - 1.0 E9/L Remisol Heme Monocytes/100 WBC (Bld) 9.6 % Normal 4.0 - 14.0 % Remisol Heme Neutrophils (Bld) [#/Vol] 2.0 E9/L Normal 2.0 - 7.5 E9/L Remisol Heme Neutrophils/100 WBC (Bld) 50.6 % Normal 36.0 - 75.0 % Remisol Heme Platelet 229.0 E9/L Normal 150.0 - 500.0 E9/L Remiso l Heme Platelet mean volume (Bld) [Entitic vol] 6.9 fL Normal 6.4 - 10.8 fL Remisol Heme RBC (Bld) [#/Vol] 4.5 E12/L Normal 4.3 - 5.9 E12/L Re misol Heme WBC corrected for nucl RBC Auto (Bld) [#/Vol] 4.1 E9/L Normal 4.0 - 11.0 E9/L Remisol Heme Hep Func Panelon 10-10-2024 Albumin [Mass/Vol] 4.2 g/dL Normal 3.3-5.0 [facility] Comment on above: Performed By: #### 2 [id number] #### [facility] [address] [place] [address] Albumin/Globulin (S) [Mass conc ratio] 1.4 Normal 1.1-2.2 [facility] Comment on above: Performed By: #### 2 [id number] #### [facility] [address] [place] [address] ALP [Catalytic activity/Vol] 117 Int._Unit/L High 21-98 [facility] Comment on above: Performed By: #### 2 [id number] #### [facility] [address] [place] [address] ALT No additional P-5'-P [Catalytic activity/Vol] 14 Int._Unit/L Normal 6-46 [facility] Comment on above: Performed By: #### 2 [id number] #### [facility] [address] [place] [address] AST [Catalytic activity/Vol] 16 Int._Unit/L Normal 5-43 [facility] Comment on above: Performed By: #### 2 [id number] #### [facility] [address] [place] [address] Bilirubin [Mass/Vol] 0.6 mg/dL Normal 0.0-1.1 [facility] Comment on above: Performed By: #### 2 [id number] #### [facility] [address] [place] [address] Bilirubin.direct [Mass/Vol] 0.1 mg/dL Normal 0.0-0.4 [facility] Comment on above: Performed By: #### 2 [id number] #### [facility] [address] [place] [address] Bilirubin.indirect [Mass or moles/Vol] 0.5 mg/dL Normal 0.1-0.9 [facility] Comment on above: Performed By: #### 2 [id number] #### [facility] [address] [place] [address] Globulin (S) [Mass/Vol] 2.9 g/dL Normal 1.4-4.0 [facility] Comment on above: Performed By: #### 2 [id number] #### [facility] [address] [place] [address] Protein [Mass/Vol] 7.1 g/dL Normal 6.0-7.8 [facility] Comment on above: Performed By: #### 2 [id number] #### [facility] [address] [place] [address] Pre-Arrival Noteon Pre-Arrival Note Pre-Arrival Note Pre-Arrival Summary Name: , [facility] Current Date: 10/10/2024 13:12:38 EST Gender: Female Date of : Age: 63 Pre-Arrival Type: EMS ETA: 10/10/2024 13:30:00 EST Primary Care Physician: Presenting Problem: shortness of breath Pre-Arrival User: Katelyn Guerrero RN Referring Source: Location: [place] Completion Date/Time: 10/10/2024 13:00:00 [facility] Emergency Department Pre-Hospital Report Form ___ Vital Signs: Pre-Hospital Report: Treatment in Route: Response to Treatment: Misc. Issues: Normal [facility] UA with Cult Rflxon 10-10-20 24 Bilirubin Ql (U) Negative Normal Negative [facility] Comment on above: Performed By: #### 4 [id number] #### [facility] [address] [place] [address] Clarity (U) Clear Normal Clear [facility] Comment on above: Performed By: #### 4 [id number] #### [facility] [address] [place] [address] Color (U) Light-Yellow Normal Yellow [facility] Comment on above: Result Comment: Micr oscopic readings are only performed on those samples that meet specific criteria set forth by [facility]. Performed By: #### 4 [id number] #### [facility] [address] [place] [address] Glucose Ql (U) Negative Normal Negative [facility] Comment on above: Performed By: #### 4 [id number] #### [facility] [address] [place] [address] Hemoglobin Auto test strip (U) [Mass/Vol] Negative Normal Negative [facility] Comment on above: Performed By: #### 4 [id number] #### [facility] [address] [place] [address] Ketones Auto test strip Ql (U) Negative Normal Negative [facility] Comment on above: Performed By: #### 4 [id number] #### [facility] [address] [place] [address] Leukocyte esterase Auto test strip Ql (U) Negative Normal Negative [facility] Comment on above: Performed By: #### 4 [id number] #### [facility] [address] [place] [address] Nitrite Auto test strip Ql (U) Negative Normal Negative [facility] Comment on above: Performed By: #### 4 [id number] #### [facility] [address] [place] [address] pH (U) 6.5 [pH] Invalid Interpretation Code 5.0-9.0 [facility] Comment on above: Performed By: #### 4 [id number] #### [facility] [address] [place] [address] Protein Ql (U) Negative Normal Negative [facility] Comment on above: Performed By: #### 4 [id number] #### [facility] [address] [place] [address] Specific gravity (U) [Rel density] 1.012 Invalid Interpretation Code 1.005-1.030 [facility] Comment on above: Performed By: #### 4 [id number] #### [facility] [address] [place] [address] Urobilinogen (U) [Mass/Vol] Negative Normal Negative [facility] Comment on above: Performed By: #### 4 [id number] #### [facility] [address] [place] [address] Type of Urine collection method Clean Catch Normal [facility] Comment on above: Performed By: #### 4 [id number] #### [facility] [address] [place] [id number] URINALYSISOrdered By: SYSTEM SYSTEM on 10-10-2024 Bilirubin Ql (U) Negative Normal Negativemg/dL [facility] [place] Auto SS Clarity (U) Clear (10/10/24 3:08 PM) Normal Clear [facility] Auto SS Color (U) Light-Yellow 1 (10/10/24 3:08 PM) Normal Yellow [facility] UA Auto SS Comment on above: Interpretive Data: M icroscopic readings are only performed on those samples that meet specific criteria set forth by [facility]. Glucose Ql (U) Negative Normal Negativemg/dL [facility]A Auto SS Hemoglobin Auto test strip (U) [Mass/Vol] Negative Normal Negativemg/dL [facility]A Aut o SS Ketones Auto test strip Ql (U) Negative Normal Negativemg/dL [facility]A Auto SS Leukocyte esterase Auto test strip Ql (U) Negative Normal NegativeLeu/uL [facility] UA Auto SS Nitrite Auto test strip Ql (U) Negative Normal Negativemg/dL [facility] UA Auto SS pH (U) 6.5 *NA* (10/10/24 3:08 PM) Invalid Interpretation Code 5.0 - 9.0 [facility] UA Auto SS Protein Ql (U) Negative Normal Negativemg/dL [facility] UA Auto SS Specific gravity (U) [Rel density] 1.012 *NA* (10/10/24 3:08 PM) Invalid Interpretation Code 1.005 - 1.030 [facility] UA Auto SS Urobilinogen (U) [Mass/Vol] Negative Normal Negativemg/dL [facility] UA Auto SS URINALYSISOrdered By: Dioni Gallardo on 10-10-2024 UA Spec Desc Clean Catch (10/10/24 3:08 PM) Normal [facility] [place]A Auto SS Work Phone: eGFRon 10-10-2024 eGFR 96 mL/min/1.73 m2 Normal >=59 [facility] Comment on above: Performed By: #### 1 [id number] #### [facility] [address] [place] [address] Ambulatory Visit Summaryon 1 12-08-2023 Ambulatory Visit Summary Ambulatory Visit Summary LIVIA JACOBO :1960 Visit Date:10/08/2024 Ambulatory Visit Instructions Your Diagnosis Major depressive disorder, recurrent, moderate BMI 33.0-33.9,adult Exogenous obesity Smoker Chest pain syndrome Back pain Hospital discharge follow-up HTN (hypertension), benign Your Care Team Attending Physician - Dorie Luis MD Primary Care Physician - Dorie Luis MD This Is Your Medications List [facility] Prescription (Rosangela Gautam, 5 years.) acetaminophen (acetaminophen 325 mg Tab) albuterol (Albuterol (Eqv-ProAir HFA) 90 mcg/inh inhalation aerosol) alprazolam (alprazolam 1 mg Tab) aspirin (aspirin 81 mg Oral EC Tab) atorvastatin (atorvastatin 80 mg Tab) budesonide/formoter ol/glycopyrrolate (Breztri Aerosphere) carvedilol (carvedilol 12.5 mg Tab) isosorbide mononitrate (isosorbide mononitrate 30 [...] (07/09/2023), Angioplasty, Gallbladder, Hysterectomy. Discharge Vitals Temperature (Temporal Artery) 36.5 ???C Heart Rate (Peripheral) 70 Respiratory Rate 16 Blood Pressure 150/92 Height 154 cm Height 61 in Weight 78.3 kg Weight 172.622 lb BMI 33.02 What to do next Scheduled Follow-Up Appointments Tuesday 2:45 PM EST With: Amilcar Matthews PA-C Where: [facility] Tuesday 1:00 PM EST With: Dorie Luis MD Where: [address] [id number]- Tuesday 2:30 PM EDT With: Where: [address] [address]- Medications What How Much When Why Instructions Unchanged acetaminophen (acetaminophen 325 mg Tab) 2 Tablets By Mouth Every 6 hours as needed for Pain Unchanged albuterol (Albuterol (Eqv-ProAir HFA) 90 mcg/ inh inhalation aerosol) 2 Puffs Inhalation Every 4 hours as needed for Shortness of breath or wheezing as needed Unchanged alprazolam (alprazolam 1 mg Tab) 1 Tablets By Mouth 4 times a day as needed for for anxiety Unchanged aspirin (aspirin 81 mg Oral EC Tab) 1 Tablets By Mouth Every day Unchanged atorvastatin (atorvastatin 80 mg Tab) 1 Tablets By Mouth Every day Unchanged budesonide/ formoterol/ glycopyrrolate (Breztri Aerosphere) 2 Puffs Inhalation 2 times a day Unchanged carvedilol (carvedilol 12.5 mg Tab) 1 Tablets By Mouth 2 [...] aid Adult BMI 33.0-33.9 kg/sq m Handicap [place], 5 years. Unchanged nitroglycerin (nitroglycerin 0.4 mg sublingual Tab) 1 Tablets Sublingual Every 5 minutes as needed for Chest pain Unchanged olanzapine (ZyPREXA 5 mg Tab) 1 Tablets By Mouth Once a day (at bedtime) one tablet at bedtime Unchanged prasugrel (prasugrel 10 mg Tab) 1 Tablets By Mouth Every day Unchanged quetiapine (quetiapine 100 mg Tab) 1 Tablets By Mouth At bedtime Unchanged ranolazine (Ranexa 500 mg Tab-ER) 1 Tablets By Mouth 2 times a day Unchanged ropinirole (ropinirole 1 mg Tab) 1 Tablets By Mouth Every day Unchanged trazodone (traZODONE 100 mg Tab) 3 Tablets By Mouth Once a day (at bedtime) Unchanged venlafaxine (Effexor XR 150 mg Cap-ER) 2 Capsules By Mouth Once a day (at bedtime) Allergies BuSpar (Migraine, Unknown) sulfa drugs (Rash) Lyrica (Feels drunk, falls down) Nicotine Patch (Rash) Tape (Sensitive) sulfamethoxazole (Unknown (origin)) Problems Ongoing - Any problem that you are currently receiving treatment for. Anxiety and depression Atherosclerosis of aorta Back pain Chest pain syndrome COPD (chronic obstructive pulmonary disease) Current smoker Fatigue History of ST elevation myocardial infarction (STEMI) History of total abdominal hysterectomy HTN (hypertension), benign Major depressive disorder, recurrent, moderate Polyneuropathy Primary insomnia RLS (restless legs syndrome) Sinus infection Walker as ambulation aid Historica (more content not included)... Normal [facility] Family Medicine Office/Clini c Noteon 10-08-2024 Family Medicine Office/Clinic Note Family Medicine Office/Clinic Note Chief Complaint Persistent back pain and hypertension. HPI Staff Livia is a 63 year old female presenting for hospital follow up Wants a flu shot today TCM: Hospital: [facility] Admission date: 09/29/24 Discharge date: 09/30/24 Symptoms the patient presented with: back pain, she couldn't walk, was all bent over form the pain and this elevated her BP Current concerns: had ct while there and found her iliac is closing up and it could burst and be an aneurysm, but when her daughter came she never mentioned any of this to her daughter History of Present Illness The patient is a 63-year-old female presenting with persistent back pain and elevated blood pressure. The patient reported experiencing back pain severe enough to require hospital admission. She described the pain as improving but reports episodes of difficulty ambulating, noting she was slumped over and had mobility challenges. She was advised to use a walker to prevent falls, but currently does not use one at home due to feeling stable. 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 Moe, was recommended to ensure no progression to an aneurysm, as reported by the emergency department team. Additionally, the patient's blood pressure has recently increased despite previous stable readings. Current antihypertensive medication under review includes Carvedilol, with considerations to adjust the dosage. The patient is also a smoker, which may contribute to her hypertension and vascular issues. She expressed interest in a flu vaccination and noted recent alterations in medication by another provider, Dr. Matthews. Review of Systems PHQ Score Initial Depression Screen Score: 4 SCORE Detailed Depression Screen Score: 11 Total Depression Screen Score: 15 Physical Exam Vitals & Measurements T: 36.5 ???C(Temporal Artery) HR: 70(Peripheral) RR: 16 BP: 150/92 SpO2: 94% HT: 61 in HT: 154 cm WT: 78.3 kg WT: 172.622 lb BMI: 33.02 General: alert, no acute distress ENMT: oral mucosa moist Cardiovascular: Regular rate and rhythm, normal peripheral perfusion, blood pressure elevated Respiratory: Lungs clear to auscultation, respirations non labored Extremities: no deformity, no trauma, bruising noted Neurological: oriented x 4, level of consciousness appropriate for age, CN II-XII intact, motor strength equal & normal bilaterally, speech normal Abdomen: Soft, Non-tender, Non-distended, + Bowel sounds Assessment/Plan 1. Hospital discharge follow-up (Z09: Encounter for follow-up examination after completed treatment for conditions other than malignant neoplasm) Reviewed discharge summary. Reviewed TCM calls. Patient is improving. Please see H&P for more. Ordered: Body Mass Index (BMI) documented 3008F Current tobacco smoker 1034F Depression Screening Negative 3352F Influenza immunization administered or previously received 4274F Most recent diastolic blood pressure >=90 mm Hg 3080F Most recent systolic blood pressure >= 140 mm Hg 3077F 2. Major depressive disorder, recurrent, moderate (F33.1: Major depressive disorder, recurrent, moderate) Patient sees psych. Continue following up with psych. Ordered: Body Mass Index (BMI) documented 3008F Current tobacco smoker 1034F Depression Screening Negative 3352F [facility] [place] Ambulatory Referral Influenza immunization administered or previously received 4274F Most recent diastolic blood pressure >=90 mm Hg 3080F Most recent systolic blood pressure >= 140 mm Hg 3077F 3. BMI 33.0-33.9,adult (Z68.33: Body mass index [BMI] 33.0-33.9, adult) Continued management through lifestyle modification, focusing on diet and physical activity counseling. Ordered: Body Mass Index (BMI) documented 3008F Current tobacco smoker 1034F Depression Screening Negative 3352F [facility] [place] Ambulatory Referral Influenza immunization administered or previously received 4274F Most recent diastolic blood pressure >=90 mm Hg 3080F Most recent systolic blood pressure >= 140 mm Hg 3077F 4. Exogenous obesity (E66.09: Other obesity due to excess calories) Addressed through lifestyle interventions, emphasizing caloric control and increased physical activity. Ordered: Body Mass Index (BMI) documented 3008F Current tobacco smoker 1034F Depression Screening Negative 3352F [facility] [place] Ambulatory Referral Influenza immunization administered or previously received 4274F Most recent diastolic blood pressure >=90 mm Hg 3080F Most recent systolic blood pressure >= 140 mm Hg 3077F 5. Smoker (F17.200: Nicotine dependence, unspecified, uncomplicated) Recommendation for smoking cessation support to mitigate cardiovascular risk factors and improve overall health outcomes. Ordered: Body Mass Index (BMI) documented 3008F Current tobacco smoker 1034F Depression Screening Negative 3352F [facility] [place] Ambulatory Referra (more content not included)... [facility] Comment on above: Result Comment: Elec tronically Signed By: Dorie Luis MD\.br\Date and Time Signed: 10/08/24 15:57 EST Pre-Visit Planningon 2 024 Pre-Visit Planning Pre-Visit Planning -- From: Beka LY, Alesia To: Dorie Luis MD; Sent: 10/05/2024 09:00:26 EST Subject: Pre-Visit Planning Due Date/Time: 10/05/2024 09:00:00 EST Caller Name: LIVIA JACOBO; Caller Number: Norberto , Shanna Nm Dr. Luis, Documentation in the medical record indicates this patient has been diagnosed as having Atypical Chest Pain. The following is also documented in the medical record: Medications- Ranexa 08/13/2024 suavwu-71-[id number]-old female with known CAD, recurrent chest discomfort, multivessel PCI, hypertension, hyperlipidemia, abnormal EKG. She has ruled out for LA with enzymes. Her symptoms were relieved with nitroglycerin and she is currently symptom-free. Would uptitrate antianginals increasing Imdur and see her back as an outpatient in follow-up. Of note she always has some element of chest pain when we see her in the office even after her last PCI. Thank for the consultation 06/12/2024 cardio-Chronic chest pain syndrome on chronic antianginals. 05/30/2024 cardio- angina pectoris 05/29/2024 office note- stable angina pectoris Based on your medical judgment, can you further clarify if the patient???s chest pain is due to one or more of the following (suspected, likely, or probable) conditions. Respond back with any that apply: [___]Stable Angina Pectoris [___]Unstable angina [___]Atheroscleroti c heart disease of aniak coronary artery without angina pectoris [___]Atheroscleroti c heart disease of ani[place] coronary artery with unstable angina pectoris [___]Atheroscleroti c heart disease of [place] coronary artery with unspecified angina pectoris [___]Refractory Angina Pectoris [___]Angina pectoris with coronary microvascular dysfunction [___]Angina of Effort [___]Atypical chest pain due to: [___]Other (please specify): I can update the Chronic Problem List with your response if you would like. In responding to this request, please exercise your independent professional judgement. The fact that a question is asked does not imply that any particular answer is desired or expected. If you have any questions, please feel free to contact me at extension [phone]. Thank you! OSIRIS FelixN, RN, CCM, CCDS, CCDS-O CDI Wool Spotter [address] [place], [place] [address] P: [phone] F: [phone] [email or web address] -- From: Dorie Luis MD To: Alesia Ireland RN; Sent: 10/08/2024 08:25:42 EST Subject: RE: Pre-Visit Planning Caller Name: LIVIA JACOBO; Caller Number: Norberto , Shanna Chronic chest pain syndrome on chronic antianginals. [facility] Pre-Visit Planning Pre-Visit Planning -- From: Alesia Ireland RN To: Dorie Luis MD; Sent: 10/05/2024 08:56:30 EST Subject: Pre-Visit Planning Due Date/Time: 10/05/2024 08:56:00 EST Caller Name: LIVIA JACOBO; Caller Number: H , M Hi Dr. Luis, *Based on your response below, can you please update the chronic problem list and address during this visit if appropriate?* During a pre-visit planning chart review, I noted the following documentation in the medical record: Problem list- Major depressive disorder, recurrent, mild Medications- Olanzapine, Quetiapine, Venlafaxine hydrochloride ER, Alprazolam 06/12/2024 office note-4. Major depressive disorder, recurrent, mild (F33.0: Major depressive disorder, recurrent, mild) Patient taking medications as directed. PHQ-9 risk assessment completed with postive findings. Total PHQ9 13. Patient denies any suicidal ideations at this time. Reviewed additional signs/symptoms to monitor for and report to provider. Patient reports that home is stressful as she lives with her daughters and they are making it paycheck to paycheck. She worries that they will not have enough money for the bills. Patient follows Dr. Carlos, Behavioral Health and pcp as directed and needed for medication management and symptom control . Patient made aware that if she needs to be seen sooner than scheduled she can move appointments up. Patient declines at this time. Based on your medical judgment, can you please further specify if the depression listed on the problem list is still mild? Major Depressive Disorder, Recurrent ??? Major depressive disorder, recurrent, mild ??? Major depressive disorder, recurrent, moderate ??? Major depressive disorder, recurrent, severe without mention of psychotic behavior ??? Major depressive disorder, recurrent, in partial remission ??? Major depressive disorder, recurrent, in full remission ??? Other (Please Specify): I can update the problem list with your specified response if you would like. In responding to this request, please exercise your independent professional judgement. The fact that a question is asked does not imply that any particular answer is desired or expected. If you have any questions, please feel free to contact me at extension [phone]. Thank you! Alesia Ireland, SAMIR, RN, CCM, CCDS, CCDS-O CDI [employer] Spotter [place] [address] P: [phone] F: [phone] [email or web address] Major depressive disorder, recurrent, moderate -- From: Fidencio POSEY, Dorie Jean Baptiste To: Beka LY, Alesia; Sent: 10/08/2024 08:25:04 EST Subject: FW: Pre-Visit Planning Caller Name: LIVIA JACOBO; Caller Number: Norberto , M [facility] Heart and Vascular Office/Cl inic Noteon 10-03-2024 Heart and Vascular Office/Clinic Note Heart and Vascular Office/Clinic Note Chief Complaint 3 month F/U History of Present Illness Livia is a 63 year old female with past medical hx of COPD, STEMI, CAD and HTN. Patient comes in for 3-month follow-up today. At last visit, I saw patient at which time she was restarted on Effient 10 mg daily and had her continue with other current medications. Patient was also admitted to the hospital 07/2024 due to chest pain. ACS was ruled out and patient was increased on Imdur to 30 mg ER twice daily to see if that helped out with her symptoms of chest discomfort. Patient reports that she has been compliant with higher dos isosorbide and has been tolerating it well. She states that she has not had any chest discomfort since leaving hospital. She is also taking Ranexa 500 mg twice daily to help out with those symptoms. Patient reports that she was in the [facility] this past weekend due to issues with weakness in her lower extremities. She states that while she was in the hospital although, her blood pressure was significantly elevated. She states that it was in the 200s/100s a lot of the time. She is compliant with losartan 100 mg daily and carvedilol 6.25 mg twice daily in addition to isosorbide. Patient reports that she was told carvedilol was going to be increased to 12.5 mg twice daily, but no prescription was sent to her pharmacy so patient is to continue a 6.25 mg twice daily at this time. Patient reports she has a blood pressure cuff at home, but has not been taking it at home lately. Patient is compliant with aspirin 81 mg daily, Effient 10 mg daily and atorvastatin 80 mg daily for CAD. She had PCI at in 10/2024, so needs to continue taking Effient until it has been 1 year since that time. Patient reports that she has chronic shortness of breath that is no change from previous Patient denies heart palpitations, dizziness/lighthead edness, swelling to lower extremities. NOTE FROM 07/04/2024: She is in the office today for [...] palpitations, edema, dizziness, near syncope, or syncope. Review of Systems PHQ Score Initial Depression Screen Score: 0 SCORE ROS - Provider Constitutional: no fever, no chills, no sweats, no weakness Respiratory: yes chronic shortness of breath, no cough Cardiovascular: no chest pain Neuro: no dizziness. no loss of consciousness Physical Exam Vitals & Measurements HR: 84(Peripheral) RR: 18 BP: 180/100 SpO2: 90% HT: 61 in HT: 154 cm WT: 79.0 kg WT: 174.165 lb BMI: 33.31 General: alert, no acute distress Cardiovascular: regular rate and rhythm, no murmur normal peripheral perfusion Respiratory: Lungs CTAB, respirations non labored Extremities: no edema left lower extremity. no edema right lower extremity Neurological: oriented x 4, LOC appropriate for age, speech normal Skin: Warm, dry, intact- no rash or concerning lesions Cardiac Diagnostics [facility] with Dr. Jansen on 07/09/23 LMT: Normal left main trunk with bifurcation [...] patient regarding stent thrombosis risk including and th (more content not included)... [facility] Comment on above: Result Comment: Elec tronically Signed By: Byron ZHANG, Amilcar Abbott\.jihan\Date and Time Signed: 10/03/24 12:33 EST Provider Letteron 10-02-2024 Provider Letter Provider Letter October 02, 2024 LIVIA TEETERS [address] [place] [id number] TEETERS, LIVIA 1960 Dear Livia, We have been trying to reach you with no success. It is important that you return our call regarding your recent hospital discharge upon receiving this letter. Also, at the time of your call, please provide us with your current information. Thank you for your prompt attention to this matter. Sincerely, Miguel JohnsonBoots And Shoes Supervisor [phone] [facility] Provider Letteron 08-15-2024 Provider Letter Provider Letter August 15, 2024 LIVIA TEEDARLIN [address] [facility] [place] [address] TEETERS, LIVIA 1960 Dear Livia, We have been trying to reach you with no success. It is important that you return our call regarding your hospital discharge upon receiving this letter. Also, at the time of your call, please provide us with your current information. Thank you for your prompt attention to this matter. Sincerely, Alex Riveraator [phone] [facility] ED Note-Physicianon 08-14-20 ED Note-Physician ED Note-Physician Basic Information Time Seen: Davey Posada PA-C 08/13/2024 08:50 Chief Complaint pt has chest pain since yesterday. Pt A&O x 3 with ABC's and MSP's intact. hx of LA and COPD. History of Present Illness 63-year-old [...] after nitroglycerin. She has a history of CAD/LA with previous stenting. Review of Systems A [...] Chest pain, unspecified)Chest pain 2. CAD in aniak artery (I25.10: Atherosclerotic heart disease of [place]iak coronary artery without angina pectoris) 3. HTN [...] mg-0.5 mg/3 mL Soln-Inh, 3 mL, Inhalation [id number] units/mLInjection [F], 5000 unit(s), SubCutaneous [id number]-HN [F], 30 mg, Oral uciloi3Znx [F], 100 mg, Oral morphine 4 mg/mL Inj, 4 mg, IV Push qcvh30Iey [F], 10 mg, Oral fanarw0Voi-LV [F], 500 mg, Oral fpsrsi6Eiw [F], 1 mg, Oral Zofran 4 mg/2 mL Injection, 4 mg, IV Push Disposition Plan Patient Discharge Condition Disposition: Admitted to the hospital Condition: Improved and stable Counseled: Patient and/or family were counseled to workup, results, treatment plan and follow-up recommendations Discharge Prescription List Prescriptions No active prescription medications Follow-up With When Contact Information Amilcar Matthews PA-C Within 1 to 2 weeks [address] [place] [phone] Additional Instructions: Fidencio POSEY, Dorie Jean Baptiste, [facility], MED Within 5 to [address] [place] [address]- Additional Instructions: Patient Education Nonspecific Chest Pain, Adult, Mkrz-go-Dqxl Aspirin and Your Heart Attestation I performed [...] made to ensure accuracy, however, inadvertently computerized signal supervisor mistakes may be present. Approp (more content not included)... [facility] Comment on above: Result Comment: Elec tronically Signed By: Davey Posada PA-C\.br\Date and Time Signed: 08/13/24 19:13 EDT\.br\Electronically Co-Signed By: Ainsley Rose M.D.\.br\Date and Time Co-Signed: 08/14/24 07:20 EDT BMPon 08-13-2024 Anion gap [Moles/Vol] 11 mmol/L Normal 6-16 [facility] Comment on above: Performed By: #### 2 [id number] #### [facility] [address] [place] [address] Calcium [Mass/Vol] 8.9 mg/dL Normal 8.9-11.1 [facility] Comment on above: Performed By: #### 2 [id number] #### [facility] [address] [place] [address] Chloride [Moles/Vol] 103 mmol/L Normal 101-111 [facility] Comment on above: Performed By: #### 2 [id number] #### [facility] [address] [place] [address] CO2 [Moles/Vol] 27 mmol/L Normal 21-31 [facility] Comment on above: Performed By: #### 2 [id number] #### [facility] [address] [place] [address] Creatinine [Mass/Vol] 0.7 mg/dL Normal 0.5-1.3 [facility] Comment on above: Performed By: #### 2 [id number] #### [facility] [address] [place] [address] Glucose [Mass/Vol] 91 mg/dL Normal 55-199 [facility] Comment on above: Performed By: #### 2 [id number] #### [facility] [address] [place] [address] Potassium [Moles/Vol] 3.9 mmol/L Normal 3.5-5.3 [facility] Comment on above: Performed By: #### 2 [id number] #### [facility] [address] [place] [address] Sodium [Moles/Vol] 137 mmol/L Normal 135-145 [facility] Comment on above: Performed By: #### 2 [id number] #### [facility] [address] [place] [address] Urea nitrogen [Mass/Vol] 12 mg/dL Normal 5-21 [facility] Comment on above: Performed By: #### 2 [id number] #### [facility] [address] [place] [address] Urea nitrogen/Creatinine [Mass ratio] 17 No Units Normal 10-20 [facility] Comment on above: Performed By: #### 2 300250 #### [facility] [address] [place] [address] CBC w/ Auto Diffon 4 Basophils/100 WBC (Bld) 0.9 % Normal 0.0-2.0 [facility] Comment on above: Performed By: #### 2 [id number] #### [facility] [address] [place] [address] Basophils/Leukocytes Auto (Bld) [Pure # fraction] 0.0 E9/L Normal 0.0-0.2 [facility] Comment on above: Performed By: #### 2 [id number] #### [facility] [address] [place] [address] Eosinophils (Bld) [#/Vol] 0.1 E9/L Normal 0.0-0.5 [facility] Comment on above: Performed By: #### 2 333075 #### [facility] [address] [place] [address] Eosinophils/100 WBC (Bld) 2.3 % Normal 0.0-8.0 [facility] Comment on above: Performed By: #### 2 477957 #### [facility] [address] [place] [address] Erythrocyte distribution width (RBC) [Ratio] 12.6 % Normal 10.9-14.2 [facility] Comment on above: Performed By: #### 2 [id number] #### [facility] [address] [place] [address] Hematocrit (Bld) [Volume fraction] 42.0 % Normal 34.0-46.0 [facility] Comment on above: Performed By: #### 2 272095 #### [facility] [address] [place] [address] Hemoglobin (Bld) [Mass/Vol] 15.3 g/dL Normal 12.0-16.0 [facility] Comment on above: Performed By: #### 2 117571 #### [facility] [address] [place] [address] Lymphocytes (Bld) [#/Vol] 1.6 E9/L Normal 1.0-4.0 [facility] Comment on above: Performed By: #### 2 684356 #### [facility] [address] [place] [address] Lymphocytes/100 WBC (Bld) 31.9 % Normal 14.0-50.0 [facility] Comment on above: Performed By: #### 2 366080 #### [facility] [address] [place] [address] MCH (RBC) [Entitic mass] 34.7 pg High 27.0-34.0 [facility] Comment on above: Performed By: #### 2 782756 #### [facility] [address] [place] [address] MCHC (RBC) [Mass/Vol] 36.5 g/dL High 31.4-36.0 [facility] Comment on above: Performed By: #### 2 776342 #### [facility] [address] [place] [address] MCV (RBC) [Entitic vol] 95.1 fL Normal 80.0-100.0 [facility] Comment on above: Performed By: #### 2 403515 #### [facility] [address] [place] [address] Monocytes (Bld) [#/Vol] 0.5 E9/L Normal 0.2-1.0 [facility] Comment on above: Performed By: #### 2 405123 #### [facility] [address] [place] [address] Neutrophils (Bld) [#/Vol] 2.7 E9/L Normal 2.0-7.5 [facility] Comment on above: Performed By: #### 2 283270 #### [facility] [address] [place] [address] Neutrophils/100 WBC (Bld) 54.0 % Normal 36.0-75.0 [facility] Comment on above: Performed By: #### 2 540049 #### [facility] [address] [place] [address] Platelet 198.0 E9/L Normal 150.0-500.0 [facility] Comment on above: Performed By: #### 2 229999 #### [facility] [address] [place] [address] Platelet mean volume (Bld) [Entitic vol] 6.5 fL Normal 6.4-10.8 [facility] Comment on above: Performed By: #### 2 548385 #### [facility] [address] [place] [address] RBC (Bld) [#/Vol] 4.4 E12/L Normal 4.3-5.9 [facility] Comment on above: Performed By: #### 2 828477 #### [facility] [address] [place] [address] WBC corrected for nucl RBC Auto (Bld) [#/Vol] 4.9 E9/L Normal 4.0-11.0 [facility] Comment on above: Performed By: #### 2 [id number] #### [facility] [address] [place] [address] CHEMISTRYOrdered By: SYSTEM SYSTEM on 08-13-2024 Troponin [...] High Sensitivity Troponin I Instructions For Use, [employer], June 2018) Troponin HS 4.70 pg/mL Low 10.10 - 27.10 pg/mL [facility] Comment on above: Interpretive Data: T he 95% CI (Confidence Interval) PPV (Positive Predictive Value) for myocardial infarction in females is 38 pg/mL, in males 51 pg/mL. The results should be used in conjunction with clinical conditions of myocardial infarction. (Access High Sensitivity Troponin I Instructions For Use, [employer], June 2018) Anion gap [Moles/Vol] 11 mmol/L [...] Instructions For Use, Shiv[employer] Margo, June 2018) Urea nitrogen [Mass/Vol] 12 mg/dL Normal 5 - 21 mg/dL [facility] Urea nitrogen/Creatinine [Mass ratio] 17 mg/mg Normal 10 - 20 [facility] COAGULATIONOrdered By: Pepito Irvin on 08-13-2024 aPTT Coag (PPP) [Time] 33.2 s Normal 25.1 - 36.5 second(s) [facility] Comment on above: Interpretive Data: P arameter 15 days - 4 weeks 1 - [...] the same coagulation reagent and instrumentation as [facility]. Currently there are no coagulation studies available worldwide for children to 14 days, and no normal ranges. Heparin therapeutic range (represented by Anti-Factor Xa activity of 0.2 - 0.4 U/mL) corresponds to PTT of 56.6 - 109.0 sec. INR Coag (PPP) [Relative time] 1.04 {INR} Invalid Interpretation Code [facility] Comment on above: Interpretive Data: I NR results are specifically intended to assess patients stabilized on long-term Anticoagulation therapy suggested INR s Less Intensive Anticoagulation 2.0 3.0 Conventional Range 3.0 4.5 PT Coag (PPP) [Time] 11.6 s Normal 9.4 - 1 2.5 second(s) [facility] Comment on above: Interpretive Data: [...] the same coagulation reagent and instrumentation as [facility]. Currently there are no coagulation studies available worldwide for children to 14 days, and no normal ranges. ED Clinical Summaryon 2023 ED Clinical Summary ED Clinical Summary [place] [id number] ED Clinical Summary Person Information Name: [facility] Age: 63 Years : 1960 Sex: Female Language: Honduran PCP: Dorie Luis MD Marital Status: Visit Id: Visit Reason: Chest pain; CP Speciality: Acuity: 2 Enc Type: Observation Med Service: Medical Arrival: 08/13/2024 08:49:35 Discharge: LOS: 000 05:53 Checkin: 08/13/2024 08:49:35 Checkout: 08/13/2024 14:42:51 Dispo Type: Admitted as IP to [facility] EVENTS: Event Name Event Status Request Date/Time [...] 08/13/2024 14:42:52 08/13/2024 14:42:52 08/13/2024 14:42:52 ADDRESS: [address] [place] [phone] PHYS DOC NOTES: MEDICAL INFORMATION: Prescriptions Given: [...] Tablets By Mouth every day. Refills: 2. Misc Prescription (Handicap Placard, 5 years.) Handicap [...] INFORMATION: Instructions: (more content not included)... [facility] ED Patient Education Noteon 08-13-2024 ED Patient Education Note ED Patient Education Note [facility] ED Patient Summaryon 024 ED Patient Summary ED Patient Summary [place] [id number] Patient Discharge Instructions Person Information Name: LIVIA JACOBO Age: 63 Years Arrival Date: 08/13/2024 08:49:35 Discharge Diagnosis: 1:Chest pain; 2:CAD in [place] artery; 3:HTN (hypertension), benign; 4:COPD (chronic obstructive pulmonary disease); 5:Anxiety and depression; 6:Polyneuropathy; 7:RLS (restless legs syndrome); 8:Current smoker; Depression, unspecified Primary Care Physician: Dorie Luis MD Provider Information Primary Provider: Ainsley Rose M.D. Advanced Instrument Engineer:Davey Posada PA-C The exam and treatment you received in the Emergency Department were for an urgent problem and are not intended as complete care. It is important that you follow up with a doctor, nurse practitioner, or physician?s assistant chief of police for ongoing care. If your symptoms become [...] opioids can be used to help relieve htfmuwwx-zx-pjfmwe pain and are often prescribed following a [...] be struggling with addiction, tell your health md do resident urgent care and ask for g (more content not included)... [facility] HEMATOLOGYOrdered By: SYSTEM SYSTEM on 08-13-2024 [...] Patient Summary Inpatient Patient Summary LIVIA JACOBO DOB:1960 Visit Date:08/13/2024 Inpatient Discharge Instructions Your Care Team Admitting Physician - Eligio Lopez III, DO Consulting Physician - Sheila POSEY, Tiffany Chavarria [facility] Cardio, XXXX Reason for Your Visit chest pains Your Diagnosis Chest pain, Chest pain CAD in [place] artery HTN (hypertension), benign COPD (chronic obstructive pulmonary disease) Anxiety and depression Polyneuropathy RLS (restless legs syndrome) Current smoker Chest pain Depression, unspecified Tests Performed BMP -- Results Pending -- CBC w/ Auto Diff -- Results Pending -- XR Chest Single View Please visit your patient portal for your results or contact your primary care physician. This Is Your Medications List [facility] Prescription (Rosangela Gautam, 5 years.) [...] PM EST With: Dorie Luis MD Where: [address] [address]- Tuesday 2:30 PM EDT With: Where: [address] [address]- New Follow Up Appointments after Discharge Follow Up with Amilcar Matthews PA-C When: Within 1 to 2 weeks Where: [address] [place] [address] [place] [address] [phone] Follow Up with Dorie Luis MD, [facility], [facility] When: Within 5 to 7 days Where: [address] [place] [address]- Medications What How Much When Why Instructions [...] day as needed for for anxiety 08/13 PM Unchanged aspirin (aspirin 81 mg Oral EC Tab) 1 Tablets By Mouth Every day AM Unchanged atorvastatin (atorvastatin 80 mg Tab) 1 Tablets By Mouth Every day 08/13 PM Unchanged budesonide/ formoterol/ glycopyrrolate (Breztri Aerosphere) 2 Puffs Inhalation 2 times a day 08/13 PM Unchanged carvedilol (carvedilol 6.25 mg Tab) 1 Tablets By Mouth 2 times a day 08/13 PM Unchanged isosorbide mononitrate (isosorbide mononitrate 30 mg ER Tab) 1 Tablets By Mouth 2 times a day 08/13 PM Unchanged lamotrigine (Lamictal 25 mg Tab) 3 Tablets By Mouth Once a day (at bedtime) 08/13 PM Unchanged losartan (losartan 100 mg Tab) 1 Tablets By Mouth Every day AM Unchanged Misc Prescription ([place] Gautam, 5 years.) See instructions Anxiety and [...] Tab) 1 Tablets By Mouth Every day AM Unchanged quetiapine (quetiapine 100 mg Tab) 1 Tablets By Mouth At bedtime 08/13 PM Unchanged ranolazine (Ranexa 500 mg Tab-ER) 1 Tablets By Mouth 2 times a day PM Unchanged ropinirole (ropiniro (more content not included)... [facility] PT & PTTon 08-13-2024 aPTT Coag (PPP) [Time] 33.2 second(s) Normal 25.1-36.5 [facility] Comment on above: Result Comment: Para [...] the same coagulation reagent and instrumentation as [facility]. Currently there are no coagulation studies available worldwide for children to 14 days, and no normal ranges. Heparin therapeutic range (represented by Anti-Factor Xa activity of 0.2 - 0.4 U/mL) corresponds to PTT of 56.6 - 109.0 sec. Performed By: #### 1 [id number] #### [facility] [address] [place] [address] INR Coag (PPP) [Relative time] 1.04 {INR} Invalid Interpretation Code [facility] Comment on above: Result Comment: INR results are specifically intended to assess patients stabilized on long-term Anticoagulation therapy suggested INR?s ?Less Intensive Anticoagulation? 2.0 ? 3.0 Conventional Range 3.0 ? 4.5 Performed By: #### 1 [id number] #### [facility] [address] [place] [address] PT Coag (PPP) [Time] 11.6 second(s) Normal 9.4-12.5 [facility] Comment on above: Result Comment: 15 [...] the same coagulation reagent and instrumentation as [facility]. Currently there are no coagulation studies available worldwide for children to 14 days, and no normal ranges. Performed By: #### 1 [id number] #### [facility] [address] [place] [address] Pre-Arrival Noteon 4 Pre-Arrival Note Pre-Arrival Note Pre-Arrival Summary Name: , Current Date: 08/13/2024 08:55:19 EDT Gender: Female Date of : Age: 63 Pre-Arrival Type: EMS ETA: 08/13/2024 09:05:00 EDT Primary Care Physician: Presenting Problem: cp Pre-Arrival User: Silvino Jones Referring Source: Location: PA Completion Date/Time: 08/13/2024 08:35:00 [facility] Emergency Department Pre-Hospital Report Form ___ Vital Signs: Pre-Hospital Report: Treatment in Route: Response to Treatment: Misc. Issues: Normal [facility] Troponinon 08-13-2024 Troponin HS 6.30 pg/mL Low 10.10-27.10 [facility] Comment on above: Result Comment: The 95% CI (Confidence Interval) PPV (Positive Predictive Value) for myocardial infarction in females is 38 pg/mL, in males 51 pg/mL. The results should be used in conjunction with clinical conditions of myocardial infarction. (Access High Sensitivity Troponin I Instructions For Use, [employer], June 2018) Performed By: #### 2 [id number] ####[facility] [address] [place] [address] Troponin 0 Hr.on 08-13-2024 Troponin HS 4.60 pg/mL Low 10.10-27.10 [facility] Comment on above: Result Comment: The 95% CI (Confidence Interval) PPV (Positive Predictive Value) for myocardial infarction in females is 38 pg/mL, in males 51 pg/mL. The results should be used in conjunction with clinical conditions of myocardial infarction. (Access High Sensitivity Troponin I Instructions For Use, [employer], June 2018) Performed By: #### 1 [id number] #### [facility] [address] [place] [address] Troponin 1 Hr.on 08-13-2024 Troponin HS 4.70 pg/mL Low 10.10-27.10 [facility] Comment on above: Result Comment: The 95% CI (Confidence Interval) PPV (Positive Predictive Value) for myocardial infarction in females is 38 pg/mL, in males 51 pg/mL. The results should be used in conjunction with clinical conditions of myocardial infarction. (Access High Sensitivity Troponin I Instructions For Use, Shivani Margo, June 2018) Performed By: #### 1 [id number] #### [facility] [address] [place] [address] XR Chest Single Viewon 08-13 XR Chest [...] mGy = na DAP = na Normal [facility] eGFRon 08-13-2024 eGFR 96 mL/min/1.73 m2 Normal >=59 [facility] Comment on above: Performed By: #### 1 [id number] #### [facility] [address] [place] [address] Heart and Vascular Office/Cl inic Noteon 07-04-2024 [...] patient will additionally be counseled by the Administrative Assistant team and in follow-up. CAD: DAPT, beta-tamika, [...] or concerning lesions Assessment/Plan 1. CAD in [place] artery (I25.10: Atherosclerotic heart disease of [place] coronary artery without angina pectoris) (more content not included)... Normal [facility] Comment on above: Result Comment: Elec tronically Signed By: Byron ZHANG, Amilcar Abbott\.br\Date and Time Signed: 07/04/24 13:52 EDT\.br\Electronically Co-Signed By: Jewell Salter.jihan\Date and Time Co-Signed: 07/04/24 13:30 EDT Ambulatory [...] Luis MD. This Is Your Medications List [facility] Prescription (Rosangela Gautam, 5 years.) [...] Density Tuesday 1:20 PM EDT With: Where: [address] [address]- 2023 2:30 PM EDT With: Amilcar Matthews PA-C Where: [facility] Tuesday 3:30 PM EST With: Dorie Luis MD Where: [address] [address]- Tuesday 2:30 PM EDT With: Where: [address] [address]- You Need to Complete the Following BD Bone Density DEXA, 06/20/24, Routine, Order for Future Visit, Transport Mode: Ambulatory, Reason: Menopausal, Reason: E28.39, Ovarian failure due to menopause, No, pp_set_radiology_su bspecialty, Not Required, Juan Pablo Cole MA Mamm Screen w/CAD if perf and [...] 33.0-33.9 kg/sq m Handicap Placard, 5 years. Unchanged nitroglycerin (nitroglycerin 0.4 mg sublingual Tab) 1 Tablets Sublingual Every 5 minutes as needed for Chest pain Unchanged olanzapine (ZyPREXA 5 mg Tab) 1 Tablets By Mouth Once a day (at bedtime) one tablet at bedtime Unchanged quetiapine 100 Milligram By Mouth Once a day (at bedtime) Unchanged ranolazine (Ranexa 500 mg Tab-ER) (more content not included)... Normal [facility] Family Medicine Office/Clini c Noteon 06-14-2024 Family Medicine [...] Precautions for MERS/COVID-19 : N/A Erin Chua 06/12/2024 11:11 EDT Medicare/Medicaid Summary Numeric Rating [...] Primary Pain Location : Back Erin Chua Maddy - 06/12/2024 11:11 EDT Hearing and Vision Screening [facility] Whisper Test Comments : no deficits Vision Screen Comments : wears corretive lens. [facility]. Erin Chua Maddy - 06/12/2024 11:11 EDT Advance Directive [facility] Advance Directive : Yes Type of Advance Directive : Living will, Medical durable power of regulatory attorney Location of Advance Directive : Family to bring in copy from home Organ Donation Consent : No Erin Chua Maddy - 06/12/2024 11:11 EDT Procedures / Surgeries [facility] - Procedure History (As Of: 06/12/2024 14:08:49 EDT) Anesthesia Minutes: 0 ; Procedure Name: Total Abdominal Hysterectomy ; Procedure Minutes: 0 ; Comments: 06/13/2023 11:47 EDT - Miguel Kurtz Total abdominal hysterectomy ; Last Reviewed Dt/Tm: 06/12/2024 14:02:56 EDT Anesthesia Minutes: 0 ; Procedure Name: Gallbladder ; Procedure Minutes: 0 ; Comments: 02/10/2023 11:31 EDT - Merly Moralez MA surgery ; Last Reviewed Dt/Tm: 06/12/2024 14:02:56 EDT Procedure Dt/Tm: 07/09/2023 ; Provider: Tiffany Jansen MD; Anesthesia Minutes: 0 ; Procedure Name: PCI - Percutaneous coronary intervention ; Procedure Minutes: 0 ; Last Reviewed Dt/Tm: 06/12/2024 14:02:56 EDT Anesthesia Minutes: 0 ; Procedure Name: Angioplasty ; Procedure Minutes: 0 ; Comments: 07/13/2023 15:50 EDT - Diana Flores LPN L stent placement ; Last Reviewed Dt/Tm: [...] Moderately Erin Chua - 06/12/2024 14:02 EDT [facility] Trouble ea (more content not included)... Normal [facility] Comment on above: Result Comment: Elec tronically Signed By: Fidencio POSEY, Dorie Jean Baptiste\.br\Date and Time Signed: 06/14/24 13:58 EDT\.br\Electronically Co-Signed [...] FROM Post PCI 10/13/23 .CAD with known ABSTRACT SEARCHER of RCA. I was unable to cross ABSTRACT SEARCHER. We are sending her to Dr. Fofana. [...] Diagnostics EKG 05/15/24 SINUS RHYTHM WITH SHORT [place] INTERVAL MODERATE ST DEPRESSION [0.05+ mV ST [...] patient will additionally be counseled by the Administrative Assistant team and in follow-up. CAD: DAPT, beta-tamika, [...] Pt should (more content not included)... Normal [facility] Comment on above: Result Comment: Elec [...] Luis MD This Is Your Medications List Contact prescribing [...] Clinic Tuesday 11:00 AM EDT With: Where: [facility] [place] Normal [address] [place] [address]- \.br\ Medications\.br\ What How Much When Why [...] or concerns \.br\ Unchanged Misc Prescription (Handicap Lotus, 5 years.) See instructions Anxiety and depression Depression, unspecified HTN (hypertension), benign RLS (restless legs syndrome) Chronic obstructive pulmonary disease, unspecified COPD type Primary insomnia Current smoker Polyneuropathy Walker as ambulation aid Adult BMI 33.0-33.9 kg/sq m Handicap Placard, 5 years. Contact prescribing physician if questions [...] for choosing us for your care.\.br\ \.br\ [facility] Family Medicine Office/Clini c Noteon 05-29-2024 Family Medicine Office/Clinic Note Family Medicine Office/Clinic Note HPI Staff Livia is a 63 year old female presenting for hospital follow up TCM: Hospital: [facility] Admission date: 05/15/24 Discharge date: 05/16/24 Symptoms [...] q12hr, # 20 cap(s), Refills(s) 0, Pharmacy: [facility], 154, cm, 05/29/24 15:16:00 EDT, Height/Length Dosing, 74.9, kg, 05/29/24 15:16:00 EDT, Weight Dosing [facility] 14 day disch 93762 2. Stable angina pectoris (I20.89: Other forms of angina pectoris) - Stable at this time. - Follow up with Cardio Ordered: amoxicillin, 500 mg = 1 cap(s), Oral, q12hr, # 20 cap(s), Refills(s) 0, Pharmacy: [facility], 154, cm, 05/29/24 15:16:00 EDT, Height/Length Dosing, 74.9, kg, 05/29/24 15:16:00 EDT, Weight Dosing [facility] 14 day disch [address]01 3. Atherosclerosis of aorta (I70.0: Atherosclerosis of [...] BP <130 mm Hg (Most Recent) 3074F [facility] 14 day disch 31848 4. Major depressive disorder, recurrent, mild (F33.0: [...] BP <130 mm Hg (Most Recent) 3074F [facility] 14 day disch 23069 5. Anxiety and depression (F41.9: Anxiety disorder, [...] BP <130 mm Hg (Most Recent) 3074F [facility] 14 day disch 75197 6. COPD (chronic obstructive pulmonary disease) (J44.9: [...] BP <130 mm Hg (Most Recent) 3074F [facility] 14 day disch 73280 7. HTN (hypertension), benign (I10: Essential (primary) [...] 3008F Current (more content not included)... Normal [facility] Comment on above: Result Comment: Elec tronically Signed By: Fidencio POSEY, Dorie Jean Baptiste\.br\Date and Time Signed: 05/29/24 15:51 EDT Provider Letteron 05-21-2024 Provider Letter Provider Letter May 21, 20[address]O [address] [place] [phone] LIVIA JACOBO 1960 Dear Livia, We have been trying to reach you with no success. It is important that you return our call regarding your recent hospital discharge upon receiving this letter. Also, at the time of your call, please provide us with your current information Thank you for your prompt attention to this matter. Sincerely, Miguel Salazar RN, Boots And Shoes Supervisor [phone] Normal [facility] CHEMISTRYOrdered By: SYSTEM SYSTEM on 05-16-2024 Cholesterol [...] 05-16-2024 Inpatient Clinical Summary Inpatient Clinical Summary [place] [address] Clinical Summary Person Information: Name: LIVIA JACOBO Age: 63 Years : 1960 Sex: Female PCP: Dorie Luis MD Marital Status: Race: White Ethnicity: Non- or Language: Honduran Visit Id: Visit Reason: Shortness of breath; Chest pain; CHEST PAIN Speciality: Acuity: Enc Type: Observation Med Service: Medical Arrival: 05/15/2024 13:15:09 Discharge: Dispo Type: Admitted as IP to [facility] Address: [address] [place] [address] [id number] Provider Notes: Diagnosis: 1:Chest pain; 2:Dizziness; 3:HTN [...] By Mouth once a day (at bedtime). [facility] Prescription (Handicap Placrock, 5 years.) Handicap Placrock, 5 years.. Refills: 0. nitroglycerin (nitroglycerin 0.4 [...] (at bedtime). Care Team Members: Attending Physician: Ephraim ROSS MD Consulting Physician: [facility] Cardio, XXXX Referring Physician: Follow up: With: Address: When: Tiffany Jansen [address] [place] [address] [phone] Business (1) 06/13/2024 9:15 AM Comments: Will be seeing Amilcar EMMANUEL at this appointment With: Address: When: Dorie Luis 05/28/2024 3:00 PM Type Location Start [facility] w[facility]28/2024 3:00 PM 05/28/2024 3:30 PM Confirmed Medicare Wellness [facility] 06/12/2024 11:00 AM 06/12/2024 12:00 PM Confirmed Cardiology Follow Up ([facility]) [facility] 06/13/2024 9:15 AM 06/13/2024 9:30 AM Confirmed Patient Education Information: Nonspecific Chest Pain, Adult, Vldy-ro-Gqgb Normal [facility] Inpatient Patient Summaryon 05-16-2024 Inpatient Patient Summary Inpatient Patient Summary [address] [id number] Patient Discharge Instructions PERSON INFORMATION Name: LIVIA JACOBO Date of : 1960 Current Date: 05/16/2024 13:15:26 PHYSICIANS Admitting Physician: Ephraim ROSS MD Primary Care Physician: Dorie Luis MD PCP [...] Follow up: With: Address: When: Tiffany Jansen [facility] [place] [address] [facility] () Within 2 to 4 weeks Comments: Call for followup appointment With: Address: When: Dorie Luis Within 3 to 5 days Comments: Call for followup appointment In the event that this physician does not participate in your insurance network, please consult with your insurance company to find a nearby participating provider. Type Location Start [facility] Medicare Wellness Subsequent [facility] [place] 06/12/2024 11:00 AM 06/12/2024 12:00 PM Confirmed Comment: DONNELL Green ALICE, have received the attached patient education materials/instructi ons and have verbalized understanding: Patient Signature Date Clinican/Nurse Signature Date HERE ARE THE MEDICATION CHANGES THAT OCCURRED DURING YOUR HOSPITAL STAY Medications to Continue Taking That Have Changed [facility] [facility] [place] [id number], [phone] START: carvedilol (carvedilol 6.25 mg Tab) 1 [...] Medications to Continue with No Changes [facility], [address] [facility] [place] [id number], [phone] nitroglycerin (nitroglycerin 0.4 mg sublingual Tab) 1 [...] Next Dose: ranolazi (more content not included)... Normal [facility] Interdisciplinary Note - Layo e Manageron 05-16-2024 Interdisciplinary Note - Packager Head Interdisciplinary Note - Packager Head CRM to room to discuss DC planning. [...] CRM contact, white board updated. CRM following Normal [facility] Comment on above: Result Comment: Elec tronically Signed By: Shikha Morales\.br\Date and Time Signed: 05/16/24 10:42 EDT Interdisciplinary Note - Soc ial Workeron 05-16-2024 Interdisciplinary Note - Sheet Catcher Interdisciplinary Note - Sheet Catcher There was a system generated request to review Advance Directives. SHYAM spoke with Livia and was encouraged her to bring in copies from home to scan. Her health care POA is Shikha Carranza [phone]. Normal [facility] Interdisciplinary Note - Sheet Catcher Interdisciplinary Note - Sheet Catcher There was a system generated request to review Advance Directives. SHYAM spoke with Livia and was encouraged to bring in copies to scan. She shared that here health care POA is Shikha Carranza [phone]. Normal [facility] Lipid Panelon 05-16-2024 Cholesterol [Mass/Vol] 129 mg/dL Normal 120-200 [facility] Comment on above: Performed By: #### 2 [id number] #### [facility] [address] [place] [address] Cholesterol in HDL [Mass/Vol] 47 mg/dL Invalid Interpretation Code [facility] Comment on above: Result Comment: '>= 60 LOW RISK' '<= 40 HIGH RISK' Performed By: #### 2 [id number] #### [facility] [address] [place] [address] Cholesterol in LDL [Mass/Vol] 75 mg/dL Normal <=129 [facility] Comment on above: Performed By: #### 2 [id number] #### [facility] [address] [place] [address] Cholesterol in VLDL [Mass/Vol] 9 mg/dL Normal 7-40 [facility] Comment on above: Performed By: #### 2 [id number] #### [facility] [address] [place] [address] Triglyceride [Mass/Vol] 44 mg/dL Normal <=149 [facility] Comment on above: Performed By: #### 2 [id number] #### [facility] [address] [place] [address] BMPon 05-15-2024 Anion gap [Moles/Vol] 11 mmol/L Normal 6-16 [facility] Comment on above: Performed By: #### 2 [id number] #### [facility] [address] [place] [address] Calcium [Mass/Vol] 9.1 mg/dL Normal 8.9-11.1 [facility] Comment on above: Performed By: #### 2 977140 #### [facility] [address] [place] [address] Chloride [Moles/Vol] 106 mmol/L Normal 101-111 [facility] Comment on above: Performed By: #### 2 127614 #### [facility] [address] [place] [address] CO2 [Moles/Vol] 27 mmol/L Normal 21-31 [facility] Comment on above: Performed By: #### 2 [id number] #### [facility] [address] [place] [address] Creatinine [Mass/Vol] 0.5 mg/dL Normal 0.5-1.3 [facility] Comment on above: Performed By: #### 2 [id number] #### [facility] [address] [place] [address] Glucose [Mass/Vol] 100 mg/dL Normal 55-199 [facility] Comment on above: Performed By: #### 2 [id number] #### [facility] [address] [place] [address] Potassium [Moles/Vol] 3.7 mmol/L Normal 3.5-5.3 [facility] Comment on above: Performed By: #### 2 [id number] #### [facility] [address] [place] [address] Sodium [Moles/Vol] 140 mmol/L Normal 135-145 [facility] Comment on above: Performed By: #### 2 187622 #### [facility] [address] [place] [address] Urea nitrogen [Mass/Vol] 11 mg/dL Normal 5-21 [facility] Comment on above: Performed By: #### 2 [id number] #### [facility] [address] [place] [address] Urea nitrogen/Creatinine [Mass ratio] 22 No Units High 10-20 [facility] Comment on above: Performed By: #### 2 193334 #### [facility] [address] [place] [address] CBC w/ Auto Diffon 4 Basophils/100 WBC (Bld) 0.8 % Normal 0.0-2.0 [facility] Comment on above: Performed By: #### 2 [id number] #### [facility] [address] [place] [address] Basophils/Leukocytes Auto (Bld) [Pure # fraction] 0.0 E9/L Normal 0.0-0.2 [facility] Comment on above: Performed By: #### 2 916697 #### [facility] [address] [place] [address] Eosinophils (Bld) [#/Vol] 0.1 E9/L Normal 0.0-0.5 [facility] Comment on above: Performed By: #### 2 908977 #### [facility] [address] [place] [address] Eosinophils/100 WBC (Bld) 2.6 % Normal 0.0-8.0 [facility] Comment on above: Performed By: #### 2 784226 #### [facility] [address] [place] [address] Erythrocyte distribution width (RBC) [Ratio] 13.7 % Normal 10.9-14.2 [facility] Comment on above: Performed By: #### 2 683150 #### [facility] [address] [place] [address] Hematocrit (Bld) [Volume fraction] 43.6 % Normal 34.0-46.0 [facility] Comment on above: Performed By: #### 2 120484 #### [facility] [address] [place] [address] Hemoglobin (Bld) [Mass/Vol] 15.4 g/dL Normal 12.0-16.0 [facility] Comment on above: Performed By: #### 2 [id number] #### [facility] [address] [place] [address] Lymphocytes (Bld) [#/Vol] 1.7 E9/L Normal 1.0-4.0 [facility] Comment on above: Performed By: #### 2 [id number] #### [facility] [address] [place] [address] Lymphocytes/100 WBC (Bld) 33.2 % Normal 14.0-50.0 [facility] Comment on above: Performed By: #### 2 449307 #### [facility] [address] [place] [address] MCH (RBC) [Entitic mass] 33.9 pg Normal 27.0-34.0 [facility] Comment on above: Performed By: #### 2 068403 #### [facility] [address] [place] [address] MCHC (RBC) [Mass/Vol] 35.4 g/dL Normal 31.4-36.0 [facility] Comment on above: Performed By: #### 2 751517 #### [facility] [address] [place] [address] MCV (RBC) [Entitic vol] 95.8 fL Normal 80.0-100.0 [facility] Comment on above: Performed By: #### 2 390041 #### [facility] [address] [place] [address] Monocytes (Bld) [#/Vol] 0.5 E9/L Normal 0.2-1.0 [facility] Comment on above: Performed By: #### 2 163252 #### [facility] [address] [place] [address] Neutrophils (Bld) [#/Vol] 2.8 E9/L Normal 2.0-7.5 [facility] Comment on above: Performed By: #### 2 814285 #### [facility] [address] [place] [address] Neutrophils/100 WBC (Bld) 54.4 % Normal 36.0-75.0 [facility] Comment on above: Performed By: #### 2 123581 #### [facility] [address] [place] [address] Platelet 216.0 E9/L Normal 150.0-500.0 [facility] Comment on above: Performed By: #### 2 395087 #### [facility] [address] [place] [address] Platelet mean volume (Bld) [Entitic vol] 7.0 fL Normal 6.4-10.8 [facility] Comment on above: Performed By: #### 2 685773 #### [facility] [address] [place] [address] RBC (Bld) [#/Vol] 4.6 E12/L Normal 4.3-5.9 [facility] Comment on above: Performed By: #### 2 366522 #### [facility] [address] [place] [address] WBC corrected for nucl RBC Auto (Bld) [#/Vol] 5.2 E9/L Normal 4.0-11.0 [facility] Comment on above: Performed By: #### 2 211129 #### [facility] [address] [place] [address] CHEMISTRYOrdered By: Jose Lopez on 05-15-2024 Troponin [...] High Sensitivity Troponin I Instructions For Use, [employer], June 2018) CHEMISTRYOrdered By: SYSTEM SYSTEM on [...] High Sensitivity Troponin I Instructions For Use, [employer], June 2018) Troponin HS 5.80 pg/mL Low 10.10 - 27.10 pg/mL [facility] Comment on above: Interpretive Data: T he 95% CI (Confidence Interval) PPV (Positive Predictive Value) for myocardial infarction in females is 38 pg/mL, in males 51 pg/mL. The results should be used in conjunction with clinical conditions of myocardial infarction. (Access High Sensitivity Troponin I Instructions For Use, [employer], June 2018) Anion gap [Moles/Vol] 11 mmol/L [...] 33.1 s Normal 25.1 - 36.5 second(s) [facility] Auto Coag Comment on above: Interpretive Data: [...] the same coagulation reagent and instrumentation as [facility]. Currently there are no coagulation studies available worldwide for children to 14 days, and no normal ranges. Heparin therapeutic range (represented by Anti-Factor Xa activity of 0.2 - 0.4 U/mL) corresponds to PTT of 56.6 - 109.0 sec. INR Coag (PPP) [Relative time] 0.90 {INR} Invalid Interpretation Code [facility] Comment on above: Interpretive Data: I NR results are specifically intended to assess patients stabilized on long-term Anticoagulation therapy suggested INR s Less Intensive Anticoagulation 2.0 3.0 Conventional Range 3.0 4.5 PT Coag (PPP) [Time] 10.1 s Normal 9.4 - 1 2.5 second(s) [facility] Comment on above: Interpretive Data: [...] the same coagulation reagent and instrumentation as [facility]. Currently there are no coagulation studies available worldwide for children to 14 days, and no normal ranges. ED Clinical Summaryon 2023 ED Clinical Summary ED Clinical Summary [place] [address] ED Clinical Summary Person Information Name: LIVIA [facility]ACOB[facility] Age: 63 Years : 1960 Sex: Female Language: Honduran PCP: Dorie Luis MD Marital Status: Visit Id: Visit Reason: Shortness of breath; Chest pain; CHEST PAIN Speciality: Acuity: 2 Enc Type: Observation Med Service: Emergency Arrival: 05/15/2024 13:15:09 Discharge: LOS: 000 02:49 Checkin: 05/15/2024 13:15:09 Checkout: 05/15/2024 16:04:14 Dispo Type: Admitted as IP to this [facility] EVENTS: Event Name Event Status Request Date/Time [...] 05/15/2024 16:03:22 RT Request 05/15/2024 16:03:22 ADDRESS: [facility] [id number] PHYS DOC NOTES: MEDICAL INFORMATION: Prescriptions Given: [...] 25 mg Tab) 3 tablets at bedtime. Misc Prescription (Handicap Placard, 5 years.) Handicap [...] 9:Obese; 10:On deep vein thrombosis (DVT) prophylaxis [facility] ED Note-Physicianon 05-15-20 ED Note-Physician ED Note-Physician Basic Information Time Seen: Ainsley Rose M.D. 05/15/2024 13:16 Chief Complaint pt presents via [...] and Complexity of Problems Differential Diagnosis: [] [facility] Data External documents reviewed: [] My [...] artery disease) (I25.10: Atherosclerotic heart disease of [place] coronary artery without angina pectoris) 7. History of ST elevation myocardial infarction (STEMI) (I25.2: Old myocardial infarction) 8. Tobacco dependence (F17.200: Nicotine dependence, unspecified, uncomplicated) 9. Obese (E66.9: Obesity, unspecified) Orders: aspirin, 162 mg = 2 tab(s), Tab-Chew, Oral, Once, Stop date 05/15/24 13:24:00 EDT, STAT, Start (more content not included)... [facility] Comment on above: Result Comment: Elec tronically Signed By: Ainsley Rose M.D.\.br\Date and Time Signed: 05/15/24 15:55 EDT ED Patient Education Noteon 05-15-2024 ED Patient Education Note ED Patient Education Note [facility] ED Patient Summaryon 024 ED Patient Summary ED Patient Summary [place] [id number] Patient Discharge Instructions Person Information Name: LIVIA [...] Information Primary Provider: Ainsley Rose M.D. Advanced Instrument Engineer:None The exam and treatment you received in the Emergency Department were for an urgent problem and are not intended as complete care. It is important that you follow up with a doctor, nurse practitioner, or physician?s assistant chief of police for ongoing care. If your symptoms become [...] opioids can be used to help relieve uosxjiif-rm-ornxuv pain and are often prescribed following a [...] with addiction (more content not included)... [facility] EMS Documentationon 05-15-20 EMS Documentation Report Please click on link to see report [facility] Comment on above: Result Comment: Miss [...] 05-15-2024 Magnesium [Mass/Vol] 1.9 mg/dL Normal 1.3-2.4 [facility] Comment on above: Performed By: #### 2 [id number] #### [facility] [address] [place] [address] PT & PTTon 05-15-2024 aPTT Coag (PPP) [Time] 33.1 second(s) Normal 25.1-36.5 [facility] Comment on above: Result Comment: Para [...] the same coagulation reagent and instrumentation as [facility]. Currently there are no coagulation studies available worldwide for children to 14 days, and no normal ranges. Heparin therapeutic range (represented by Anti-Factor Xa activity of 0.2 - 0.4 U/mL) corresponds to PTT of 56.6 - 109.0 sec. Performed By: #### 1 [id number] #### [facility] [address] [place] [address] INR Coag (PPP) [Relative time] 0.90 {INR} Invalid Interpretation Code [facility] Comment on above: Result Comment: INR results are specifically intended to assess patients stabilized on long-term Anticoagulation therapy suggested INR?s ?Less Intensive Anticoagulation? 2.0 ? 3.0 Conventional Range 3.0 ? 4.5 Performed By: #### 1 [id number] #### [facility] [address] [place] [address] PT Coag (PPP) [Time] 10.1 second(s) Normal 9.4-12.5 [facility] Comment on above: Result Comment: 15 [...] the same coagulation reagent and instrumentation as [facility]. Currently there are no coagulation studies available worldwide for children to 14 days, and no normal ranges. Performed By: #### 1 [id number] #### [facility] [address] [place] [address] Pre-Arrival Noteon Pre-Arrival Note Pre-Arrival Note Pre-Arrival Summary Name: , Current Date: 05/15/2024 13:15:32 EDT Gender: Date of : Age: Pre-Arrival Type: EMS ETA: 05/15/2024 13:43:00 EDT Primary Care Physician: Presenting Problem: chest pain Pre-Arrival User: Sully Arenas RN Referring Source: Location: [place] Completion Date/Time: 05/15/2024 13:13:00 [facility] Emergency Department Pre-Hospital Report Form ___ Vital Signs: 3 nitro given- pain better Pre-Hospital Report: Treatment in Route: Response to Treatment: Misc. Issues: [facility] Troponin 0 Hr.on 05-15-2024 Troponin HS 5.70 pg/mL Low 10.10-27.10 [facility] Comment on above: Result Comment: The 95% CI (Confidence Interval) PPV (Positive Predictive Value) for myocardial infarction in females is 38 pg/mL, in males 51 pg/mL. The results should be used in conjunction with clinical conditions of myocardial infarction. (Access High Sensitivity Troponin I Instructions For Use, [employer]iv[employer], June 2018) Performed By: #### 1 [id number] #### [facility] [address] [place] [address] Troponin 1 Hr.on 05-15-2024 Troponin HS 5.80 pg/mL Low 10.10-27.10 [facility] Comment on above: Order Comment: 1430 Result Comment: The 95% CI (Confidence Interval) PPV (Positive Predictive Value) for myocardial infarction in females is 38 pg/mL, in males 51 pg/mL. The results should be used in conjunction with clinical conditions of myocardial infarction. (Access High Sensitivity Troponin I Instructions For Use, [employer], June 2018) Performed By: #### 1 [id number] #### [facility] [address] [place] [address] Troponin 3 Hr.on 05-15-2024 Troponin HS 6.30 pg/mL Low 10.10-27.10 [facility] Comment on above: Result Comment: The 95% CI (Confidence Interval) PPV (Positive Predictive Value) for myocardial infarction in females is 38 pg/mL, in males 51 pg/mL. The results should be used in conjunction with clinical conditions of myocardial infarction. (Access High Sensitivity Troponin I Instructions For Use, [employer], June 2018) Performed By: #### 1 [id number] #### [facility] [address] [place] [address] Troponin 6 Hr.on 05-15-2024 Troponin HS 5.70 pg/mL Low 10.10-27.10 [facility] Comment on above: Result Comment: The 95% CI (Confidence Interval) PPV (Positive Predictive Value) for myocardial infarction in females is 38 pg/mL, in males 51 pg/mL. The results should be used in conjunction with clinical conditions of myocardial infarction. (Access High Sensitivity Troponin I Instructions For Use, [employer], June 2018) Performed By: #### 1 [id number] #### [facility] [address] [place] [address] XR Chest Single Viewon 05-15 XR Chest [...] mGy = na DAP = na [facility] eGFRon 05-15-2024 eGFR 104 mL/min/1.73 m2 Normal >=59 [facility] Comment on above: Order Comment: Order added by Discern Expert. Performed By: #### 1 [id number] #### [facility] [address] [place] [address] ECG 12-Leadon 03-29-2024 ECG 12-Lead [id number] 54#1.00TIFF [facility] ED Note-Physicianon 03-29-20 ED Note-Physician [id number] 5#1.00TIFF [facility] RAD - MISCon 03-29-2024 RAD - MISC [id number] A9#1.00TIFF [facility] Provider Letteron 03-28-2024 Provider Letter March 28, 2024 LIVIA JACOBO [facility] [address] : 1960 Dear Livia , We have [...] prompt attention to this matter. Sincerely, Family Medicine [address] [address] [facility] Consultation Noteon 03-09-20 Consultation Note [id number] BF#1.00TIFF [facility] Consultation Note [id number] 88#1.00TIFF [facility] Outside Recordson 03-08-2024 Outside Records [id number] 304#1.00TIFF [facility] Heart and Vascular Office/Cl inic Noteon 02-02-2024 [...] with voice recognition artificial intelligence software, specifically [facility], [employer] and or urturn. Substitutions may have occurred due to the inherent limitations of voice recognition and artificial intelligence software. Documentation services were performed after patient or guardian consented to allow [employer] to record this visit. DESTINY imcu specialist and provider reviewed before signing. DESTINY: [...] 1 tab(s), SubLi (more content not included)... [facility] Comment on above: Result Comment: Elec tronically Signed By: Sheila POSEY, Tiffany Chavarria\.br\Date and Time Signed: 02/02/24 10:55 EDT\.br\Electronically Co-Signed By: Soren Casillas\.br\Date and Time Co-Signed: 01/06/24 15:48 EST Physician Orderon 01-09-2024 Physician Order [id number] 239#1.00TIFF [facility] RAD - CT Reporton 01-05-2024 RAD - CT Report [id number] 09#1.00TIFF [facility] Consultation Noteon 12-08-19 Consultation Note [id number] C1#1.00TIFF [facility] Heart and Vascular Office/Cl inic Noteon 12-08-2023 Heart and Vascular Office/Clinic Note Chief Complaint c/o SOB - chest pain 01/21 - [place] ER 11/20/23 dr thought pt had URI [...] of her 2nd and 3rd stents. Her polish maker expresses a concern about potential hypotension. The [...] her visit to the emergency room at [place]. The patient has an appointment scheduled with [...] normal psychiatric thoughts. Assessment/Plan 1. 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 An unsuccessful crossing by [...] follow up in a few months in [place]. We will keep her previous appointment in 12/2023. 2. Current smoker (F17.200: Nicotine dependence, unspecified, uncomplicated) We strongly recommend to quit tobacco use. (more content not included)... [facility] Comment on above: Result Comment: Elec tronically Signed By: Sheila POSEY, Tiffany Chavarria\.br\Date and Time Signed: 12/08/23 06:46 EST\.br\Electronically Co-Signed By: Soren Casillas\.br\Date and Time Co-Signed: 12/01/23 17:27 EST Consent for Treatmenton 11-14 Consent for Treatment [id number] 71#1.00TIFF [facility] Outside EDon 12-01-2023 Outside ED [id number] 161#1.00TIFF [facility] Outside Labson 12-01-2023 Outside Labs [id number] 997#1.00TIFF [facility] Outside Operativeon 12-01-19 Outside Operative [id number] 636#1.00TIFF [facility] Outside Radiologyon 12-01-19 Outside Radiology [id number] 641#1.00TIFF [facility] Physician Orderon 12-01-2023 Physician Order [id number] 650#1.00TIFF [facility] ED Note-Physicianon 11-02-20 ED Note-Physician [id number] 80#1.00TIFF [facility] RAD - MISCon 11-02-2023 RAD - MISC [id number] BE#1.00TIFF [facility] Prescriptions/Work Noteson 1 12-28-2022 Prescriptions/Work Notes [id number] 541#1.00TIFF [facility] Activated clotting timeon ACT Coag (Bld) 286 s High 89-169 [facility] Comment on above: Result Comment: Targ et ACT range will vary based on the patient population, clinical status, and surgical intervention occurring. Performed By: #### 3 184-9 #### ANDREE TONY ([id number]) [facility] ([facility]) [address] [place] [address] Basic metabolic 2000 panelon 10-26-2023 Anion gap [Moles/Vol] 11 mmol/L Normal 10-20 [facility] Comment on above: Performed By: #### 2 4321-2 #### ANDREE TONY ([id number]) [facility] ([facility]) [address] [place] [address] Calcium [Mass/Vol] 8.5 mg/dL Low 8.6-10.3 [facility] Comment on above: Performed By: #### 2 4321-2 #### ANDREE TONY ([id number]) [facility] ([facility]) [address] [place] [address] Chloride [Moles/Vol] 106 mmol/L Normal 98-107 [facility] Comment on above: Performed By: #### 2 4321-2 #### ANDREE TONY ([id number]) [facility] ([facility]) [address] [place] [address] CO2 [Moles/Vol] 25 mmol/L Normal 21-32 [facility] Comment on above: Performed By: #### 2 4321-2 #### ANDREE TONY ([id number]) [facility] ([facility]) [address] [place] [address] Creatinine [Mass/Vol] 0.58 mg/dL Normal 0.50-1.05 [facility] Comment on above: Performed By: #### 2 4321-2 #### ANDREE TONY ([id number]) [facility] ([facility]) [address] [place] [address] GFR/1.73 sq M.predicted MDRD (S/P/Bld) [Vol rate/Area] mL/min/{1.73_m2} Normal >60 [facility] Comment on above: Result Comment: Calc ulations of estimated GFR are performed using the 2020 CKD-EPI Study Refit equation without the race variable for the IDMS-Traceable creatinine methods. https://jasn.asnjournals.org/content/early/ASN.8403633 988 Performed By: #### 2 4321-2 #### ANDREE TONY ([id number]) [facility] ([facility]) [address] [place] [address] Glucose [Mass/Vol] 87 mg/dL Normal 74-99 [facility] Comment on above: Performed By: #### 2 4321-2 #### ANDREE TONY ([id number]) [facility] ([facility]) [address] [place] [address] Potassium [Moles/Vol] 5.4 mmol/L High 3.5-5.3 [facility] Comment on above: Result Comment: GEOVANI ED HEMOLYSIS DETECTED. The result may be falsely elevated due to hemolysis or other interferents. Clinical correlation is recommended. Repeat testing may be considered. Performed By: #### 2 4321-2 #### ANDREE TONY ([id number]) [facility] ([facility]) [address] [place] [address] Sodium [Moles/Vol] 137 mmol/L Normal 136-145 [facility] Comment on above: Performed By: #### 2 4321-2 #### ANDREE TONY ([id number]) [facility] ([facility]) [address] [place] [address] Urea nitrogen [Mass/Vol] 13 mg/dL Normal 6-23 [facility] Comment on above: Performed By: #### 2 4321-2 #### ANDREE CHAVO ([id number]) [facility] ([facility]) [address] [place] [address] Anion gap [Moles/Vol] 11 mmol/L 10 - 20 mmol/L [facility] Calcium [Mass/Vol] 8.5 mg/dL Low 8.6 - 10.3 mg/dL [facility] Chloride [Moles/Vol] 106 mmol/L 98 - 107 mmol/L [facility] CO2 [Moles/Vol] 25 mmol/L 21 - 32 mmol/L [facility] Creatinine [Mass/Vol] 0.58 mg/dL 0.50 - 1.05 mg/dL [facility] GFR/1.73 sq M.predicted MDRD (S/P/Bld) [Vol rate/Area] - PINF [facility] Comment on above: Calculations of henry mated GFR are performed using the 2020 CKD-EPI Study Refit equation without the race variable for the IDMS-Traceable creatinine methods. https://jasn.asnjournals.org/content/early//ASN.2977332 988 Glucose [Mass/Vol] 87 mg/dL 74 - 99 mg/dL [facility] Interpretation and review of laboratory results Abnormal [facility] Potassium [Moles/Vol] 5.4 mmol/L High 3.5 - 5.3 mmol/L [facility] Comment on above: MARKED HEMOLYSIS DET ECTED. The result may be falsely elevated due to hemolysis or other interferents. Clinical correlation is recommended. Repeat testing may be considered. Sodium [Moles/Vol] 137 mmol/L 136 - 145 mmol/L [facility] Urea nitrogen [Mass/Vol] 13 mg/dL 6 - 23 mg/dL [facility] CARDIAC CATHETERIZATION - CO Nichol 10-26-2023 CARDIAC CATHETERIZATION - CORONARY [facility], Administrative Assistant, [address] [place], [place] [address] Cardiovascular Catheterization Report Patient Name: LIVIA JACOBO Performing Physician: [id number] Bandar Castrejon MD Study Date: 10/26/2023 Verifying Physician: [id number] Castrejon MD MRN/PID: [id number] Yarn Rewinder/Co-scr ub: Ordering Provider: [id number] BANDAR CASTREJON Date of /Age: 1210/17/1960 / 63 years Fellow: [id number] Jacob Garcia MD Gender: F Fellow: [id number] Bertha Santoyo MD Study: PCI - Percutaneous [...] a modified Seldinger technique. Subsequently a 6 English sheath was placed retrograde in the right femoral artery. After infiltration with 2% Lidocaine, a second arterial access was obtained via the left femoral artery with a modified Seldinger technique and a 6 English sheath was placed. This second arterial access [...] kit was used to reduce a 6 English 45 cm sheath into the right femoral artery. Ultrasound guidance with a micropuncture kit was used to introduce a 6 English 45 cm sheath into the left femoral artery. Heparin was given for an ACT greater than 300 during the entire case. Patient is chronically on aspirin and Brilinta. A 6 English AL 0.75 guiding catheter was used engage the right coronary system. A 6 English EBU 3.75 guiding catheter was shortened and used to engage the left coronary system. A BMW wire was used to wire the circumflex artery. Beverley blue wire was used to advance a Corsair pro 135 and a 6 English trap liner into the RCA. A Mongo wire was used to wire the true lumen into the distal RCA. This was confirmed by retrograde angiography as well as wire movement. The microcatheter was advanced. Beverley blue wire was advanced into the PLB. Predilation wa (more content not included)... Normal [facility] CBC panel Auto (Bld)on 10-26 Erythrocyte distribution width (RBC) [Ratio] 13.3 % Normal 11.5-14.5 [facility] Comment on above: Performed By: #### 5 8410-2 #### ANDREE TONY ([id number]) [facility] ([facility]) [address] [place] [address] Hematocrit (Bld) [Volume fraction] 37.5 % Normal 36.0-46.0 [facility] Comment on above: Performed By: #### 5 8410-2 #### ANDREE TONY ([id number]) [facility] ([facility]) [address] [place] [address] Hemoglobin (Bld) [Mass/Vol] 13.0 g/dL Normal 12.0-16.0 [facility] Comment on above: Performed By: #### 5 8410-2 #### ANDREE TONY ([id number]) [facility] ([facility]) [address] [place] [address] MCH (RBC) [Entitic mass] 33.0 pg Normal 26.0-34.0 [facility] Comment on above: Performed By: #### 5 8410-2 #### ANDREE TONY ([id number]) [facility] ([facility]) [address] [place] [address] MCHC (RBC) [Mass/Vol] 34.7 g/dL Normal 32.0-36.0 [facility] Comment on above: Performed By: #### 5 8410-2 #### ANDREE TONY ([id number]) [facility] ([facility]) [address] [place] [address] MCV (RBC) [Entitic vol] 95 fL Normal 80-100 [facility] Comment on above: Performed By: #### 5 8410-2 #### ANDREE TONY ([id number]) [facility] ([facility]) [address] [place] [address] Nucleated RBC/100 WBC (Bld) [Ratio] 0.0 /100 WBCs Normal 0.0-0.0 [facility] Comment on above: Performed By: #### 5 8410-2 #### ANDREE TONY ([id number]) [facility] ([facility]) [address] [place] [address] Platelets (Bld) [#/Vol] 240 x10*3/uL Normal 150-450 [facility] Comment on above: Performed By: #### 5 8410-2 #### ANDREE TONY ([id number]) [facility] ([facility]) [address] [place] [address] RBC (Bld) [#/Vol] 3.94 x10*6/uL Low 4.00-5.20 [facility] Comment on above: Performed By: #### 5 8410-2 #### ANDREE TONY ([id number]) [facility] ([facility]) [address] [place] [address] WBC (Bld) [#/Vol] 4.4 x10*3/uL Normal 4.4-11.3 [facility] Comment on above: Performed By: #### 5 8410-2 #### ANDREE TONY ([id number]) [facility] ([facility]) [address] [place] [address] Erythrocyte distribution width (RBC) [Ratio] 13.3 % 11.5 - 14.5 % [facility] Hematocrit (Bld) [Volume fraction] 37.5 % 36.0 - 46.0 % [facility] Hemoglobin (Bld) [Mass/Vol] 13.0 g/dL 12.0 - 16.0 g/dL [facility] Interpretation and review of laboratory results Abnormal [facility] MCH (RBC) [Entitic mass] 33.0 pg 26.0 - 34.0 pg [facility] MCHC (RBC) [Mass/Vol] 34.7 g/dL 32.0 - 36.0 g/dL [facility] MCV (RBC) [Entitic vol] 95 fL 80 - 100 fL [facility] Nucleated RBC/100 WBC (Bld) [Ratio] 0.0 % [facility] Platelets (Bld) [#/Vol] 240 10*3/uL [facility] RBC (Bld) [#/Vol] 3.94 10*6/uL Low [facility] WBC (Bld) [#/Vol] 4.4 10*3/uL [facility] Cardiac catheterization stud yon 10-26-2023 [facility], Administrative Assistant, [address] [place], [place] [address] Cardiovascular Catheterization Report Patient Name: LIVIA JACOBO Performing Physician: Dawit Castrejon MD Study Date: 10/26/2023 Verifying Physician: Dawit Castrejon MD MRN/PID: [id number] Yarn Rewinder/Co-scr ub: Ordering Provider: Dawit CASTREJON Date of /Age: 1210/17/1960 / 63 years Fellow: [id number] Jacob Garcia MD Gender: F Fellow: [id number] Bertha Santoyo MD Study: PCI - Percutaneous [...] a modified Seldinger technique. Subsequently a 6 English sheath was placed retrograde in the right femoral artery. After infiltration with 2% Lidocaine, a second arterial access was obtained via the left femoral artery with a modified Seldinger technique and a 6 English sheath was placed. This second arterial access [...] kit was used to reduce a 6 English 45 cm sheath into the right femoral artery. Ultrasound guidance with a micropuncture kit was used to introduce a 6 English 45 cm sheath into the left femoral artery. Heparin was given for an ACT greater than 300 during the entire case. Patient is chronically on aspirin and Brilinta. A 6 English AL 0.75 guiding catheter was used engage the right c (more content not included)... Bandar Edwards MD - 10/26/2023 [facility], Administrative Assistant, [address] [place] [address] Cardiovascular Catheterization Report Patient Name: LIVIA JACOBO Performing Physician: Dawit Castrejon MD Study Date: 10/26/2023 Verifying Physician: Dawit Castrejon MD MRN/PID: [id number] Yarn Rewinder/Co-scr ub: Ordering Provider: [id number] BANDAR CASTREJON Date of /Age: 1210/17/1960 / 63 years Fellow: [id number] Jacob Garcia MD Gender: F Fellow: [id number] Bertha Santoyo MD Study: PCI - Percutaneous [...] a modified Seldinger technique. Subsequently a 6 English sheath was placed retrograde in the right femoral artery. After infiltration with 2% Lidocaine, a second arterial access was obtained via the left femoral artery with a modified Seldinger technique and a 6 English sheath was placed. This second arterial access [...] kit was used to reduce a 6 English 45 cm sheath into the right femoral artery. Ultrasound guidance with a micropuncture kit was used to introduce a 6 English 45 cm sheath into the left femoral artery. Heparin was given for an ACT greater than 300 during the entire case. Patient is chronically on aspirin and Brilinta. A 6 English AL 0.75 guiding catheter was used engage the right coronary system. A 6 English EBU 3.75 guiding catheter was shortened and used to engage the left coronary system. A BMW wire was used to wire the circumflex artery. Beverley blue wire was used to advance a Corsair pro 135 and a 6 English trap liner into the RCA. A Mongo wire was used to wire the true lumen into the distal RCA. This was confirmed by retrograde angiography (more content not included)... [facility] Work Phone: Cardiac catheterization stud yOrdered By: Bandar Castrejon on 10-26-2023 [facility] Work Phone: Coagulation tissue factor in ducedon 10-26-2023 PT Coag (PPP) [Time] 10.8 s Normal 9.8-12.8 [facility] Comment on above: Performed By: #### 5 902-2 #### ANDREE TONY ([id number]) [facility] ([facility]) [address] [place] [address] ECG 12-LEADon 10-26-2023 ECG 12-LEAD Ventricular Rate 67 Atrial Rate 67 P-R Interval 146 QRS Duration 84 Q-T Interval 448 QTC Calculation(Bazett) 473 P Salem 66 R Salem 41 T Salem 91 QRS Count 11 Q Onset 225 P Onset 152 P Offset 211 T Offset 449 QTC Fredericia 465 Diagnosis Normal sinus rhythm ST & T wave abnormality, consider anterolateral ischemia Prolonged QT Abnormal ECG Confirmed by Omero Rodriguez (13) on 10/28/2023 3:51:15 PM Normal [facility] ECG 12-LEAD Ventricular Rate 75 Atrial Rate 75 P-R Interval 140 QRS Duration 82 Q-T Interval 396 QTC Calculation(Bazett) 442 P Salem 58 R Salem 31 T Salem 181 QRS Count 13 Q Onset 212 P Onset 142 P Offset 203 T Offset 410 QTC Fredericia 426 Diagnosis Normal sinus rhythm T wave abnormality, consider inferolateral ischemia Abnormal ECG Confirmed by Omero Rodriguez (13) on 10/28/2023 3:51:10 PM Normal [facility] PT Coag (PPP) [Time]on 10-26 INR Coag (PPP) [Relative time] 1.0 Normal 0.9-1.1 [facility] Comment on above: Performed By: #### 5 902-2 #### ANDREE TONY ([id number]) [facility] ([facility]) [address] [place] [address] PT Coag (PPP) [Time]Ordered By: Jamil Fine on 10-26-2023 INR Coag (PPP) [Relative time] 1.0 {INR} 0.9 - 1.1 [facility] Interpretation and review of laboratory results Normal [facility] Protime-INROrdered By: Frederick Franklin on 10-26-2023 PT Coag (PPP) [Time] 10.8 s [facility] Consent for Treatmenton 10-14 Consent for Treatment [id number] 33#1.00TIFF Normal [facility] US Carotid Duplex Bilateralo n 10-25-2023 [...] Criteria Committee. Vascular Medicine 2020; https://journals.sa gepub.com/doi/full/ 10.1177/1047017M385 402889 Ordering Provider: Tiffany Jansen FINAL REPORT Dictated: 10/25/2023 4:07 pm Edmund Arce M.D. Signed (Electronic Signature): 10/25/2023 4:07 pm Signed by: Edmund Arce M.D. Transcribed by: JEANINE Technologist: NORAH Technical Comments Velocities Right Vert. Antegrade Yes Velocities Left Vert. Antegrade Yes Normal [facility] No Panel Informationon 10-24 Study performed outside the system. Official study report is not available here and may be obtained from the performing facility. SYNGO_SECTRA No Panel InformationOrdered By: Documentation Systemgenerated on 10-24-2023 [facility] Work Phone: Outside Progress Noteon 12-0 Outside Progress Note [id number] 795#1.00TIFF Normal [facility] Heart and Vascular Office/Cl inic Noteon 10-13-2023 Heart and Vascular Office/Clinic Note Chief Complaint s/p PCI 09/07/23 History of Present Illness Livia Jacobo is a 62-year-old female who presents today for a follow-up evaluation of hypertension, hyperlipidemia, recent LA, primary PCI, ischemic cardiomyopathy, and ABSTRACT SEARCHER of the RCA. She is accompanied by [...] a 62-year-old female with hypertension, hyperlipidemia, recent LA, primary PCI, ischemic cardiomyopathy, and ABSTRACT SEARCHER of the RCA. 1. CAD CAD with known ABSTRACT SEARCHER of RCA. I was unable to cross ABSTRACT SEARCHER. We are sending her to Dr. Fofana. [...] with voice recognition artificial intelligence software, specifically [facility], [employer] and or urturn. Substitutions may have occurred due to the inherent limitations of voice recognition and artificial intelligence software. Documentation services were performed after patient or guardian consented to allow ChirpVision eXperience to r (more content not included)... [facility] Comment on above: Result Comment: Elec tronically Signed By: Sheila POSEY, Tiffany Chavarria\.br\Date and Time Signed: 10/13/23 19:47 EST\.br\Electronically Co-Signed By: Jenn Bañuelos\.br\Date and Time Co-Signed: 10/13/23 17:27 EST Physician Orderon 10-13-2023 Physician Order [id number] 534#1.00TIFF [facility] Provider Letteron 10-10-2023 Provider Letter October 10, 2023 LIVIA JACOBO [address] [place] [id number] : 1960 Dear Livia , We have [...] your prompt attention to this matter. Sincerely, [facility] [address] [address] [facility] Heart and Vascular Office/Cl inic Noteon 10-08-2023 [...] still having ongoing symptoms. She does have ABSTRACT SEARCHER of the RCA, some inferolateral ST-T wave changes. Chest pressure (R07.89: Other chest pain) She showed no improvement with Imdur. We will schedule her for PCI of the ABSTRACT SEARCHER of the RCA at [facility] with me. Follow up in 6 weeks in [place]. Portions of this record may have been created with voice recognition artificial intelligence software, specifically [facility], [employer] and or urturn. Substitutions may have occurred due to the inherent limitations of voice recognition and artificial intelligence software. Documentation services were performed after patient or guardian consented to allow Linqia to record this visit. DESTINY imcu specialist and provider reviewed before signing. DESTINY: [employer] Follow-up No qualifying data available Problem List/Past [...] Cap-ER Handicap Lotus, 5 years., See Instructions isosorbide [...] Oral, B (more content not included)... Normal [facility] Comment on above: Result Comment: Elec tronically Signed By: Sheila POSEY, Tiffany Chavarria\.br\Date and Time Signed: 10/08/23 13:39 EST\.br\Electronically Co-Signed By: George Newell\.br\Date and Time Co-Signed: 09/01/23 16:29 EDT Heart and Vascular Office/Clinic Note Chief Complaint heart cath f/u History of Present Illness Livia Jacobo is a 62-year-old female who presents today for a follow-up evaluation of a recent LA in the circumflex territory. She does have a ABSTRACT SEARCHER of the RCA. She is accompanied by an adult female. She is doing well. She experiences dyspnea upon exertion and intermittent angina. She rates her pain as a 4 out of 10. She describes the pain as a sharp pain. The pain does not feel similar to her heart pain prior to her LA. The heart pain she had prior to her LA went like a rectangle around and then up and down her arm. Her right coronary artery has a complete blockage and collateralized then rerouted. She has a bad back and she needs to go to [place] on 07/25/2023 for possible surgery. She had [...] Jacobo is a 62-year-old female with recent LA in the circumflex territory. She does have a ABSTRACT SEARCHER of the RCA. She is still having some angina, but not nearly as bad as it was before her heart attack. We are going to give her some isosorbide and we are trying medical for now. It is amenable to a possible PCI if we are unable to achieve resolution of symptoms with medication. Follow up in 6 weeks in [place]. Portions of this record may have been created with voice recognition artificial intelligence software, specifically [facility], [employer] and or urturn. Substitutions may have occurred with voice recognition and artificial intelligence software. Documentation services were performed after patient or guardian consented to allow ChirpVision eXperience to record this visit. DESTINY imcu specialist and provider reviewed before signing. DESTINY: George Newell Follow-up No qualifying data available Problem List/Past [...] mg= 1 (more content not included)... Normal [facility] Comment on above: Result Comment: Elec tronically Signed By: Sheila POSEY, Tiffany Chavarria\.br\Date and Time Signed: 10/08/23 09:58 EST\.br\Electronically Co-Signed By: George Newell\.br\Date and Time Co-Signed: 07/21/23 16:21 EDT\.br\Electronically Co-Signed By: George Newell\.br\Date and Time Co-Signed: 07/21/23 16:41 EDT Ambulatory Visit Summaryon 1 11-29-2022 Ambulatory Visit Summary LIVIA JACOBO :1960 Visit Date:09/29/2023 Ambulatory Visit Instructions Your Diagnosis Major depressive disorder, recurrent, mild Atherosclerosis of aorta History of ST elevation myocardial infarction (STEMI) BMI 30.0-30.9,adult Smoker Walker as ambulation aid Polyneuropathy Encounter for immunization Fatigue Your Care Team Attending Physician - Dorie Luis MD Primary Care Physician - Dorie Luis MD This Is Your Medications List [facility] Prescription (Rosangela Gautam, 5 years.) [...] With: Tiffany Jansen MD Where: [facility] [place] 2022 1:45 PM EST With: Tiffany Jansen MD Where: [facility] [place] Tuesday 4:00 PM EST With: Dorie Luis MD Where: [place] [id number] [place] [phone] \.br\ Medications\.br\ What How Much When Why [...] for choosing us for your care.\.br\ \.br\ [facility] Auto Diffon 09-29-2023 Basophils/100 WBC (Bld) 0.6 % Normal 0.0-2.0 [facility] Comment on above: Order Comment: Order Added by Discern Expert. Performed By: #### 2 169657, 1730719, 1438234, 671368598, 97721756, 2326556, 86790282, 8506621, 6745762 #### [facility] [address] [place] [address] Basophils/Leukocytes Auto (Bld) [Pure # fraction] 0.0 E9/L Normal 0.0-0.2 [facility] Comment on above: Order Comment: Order Added by Discern Expert. Performed By: #### 2 463077, 7314430, 0375026, 751305135, 02538633, 5623580, 36958744, 3982473, 7888882 #### [facility] [address] [place] [address] Eosinophils/100 WBC (Bld) 2.2 % Normal 0.0-8.0 [facility] Comment on above: Order Comment: Order Added by Discern Expert. Performed By: #### 2 478794, 0740793, 8923061, 712138539, 21373445, 6808084, 23739582, 8286549, 3868875 #### [facility] [address] [place] [address] Eosinophils/Leukocyt es Auto (Bld) [Pure # fraction] 0.1 E9/L Normal 0.0-0.5 [facility] Comment on above: Order Comment: Order Added by Discern Expert. Performed By: #### 2 150157, 1703247, 8121983, 065685427, 01416356, 7989222, 96205332, 4097013, 6033021 #### [facility] [address] [place] [address] Lymphocytes/100 WBC (Bld) 37.8 % Normal 14.0-50.0 [facility] Comment on above: Order Comment: Order Added by Discern Expert. Performed By: #### 2 238695, 9918158, 6126342, 711744569, 84080120, 7611710, 54579061, 4880567, 5595621 #### [facility] [address] [place] [address] Lymphocytes/Leukocyt es Auto (Bld) [Pure # fraction] 1.7 E9/L Normal 1.0-4.0 [facility] Comment on above: Order Comment: Order Added by Discern Expert. Performed By: #### 2 638937, 9595423, 4549721, 146582323, 84125546, 3260108, 40773800, 7422813, 9945128 #### [facility] [address] [place] [address] Monocytes/100 WBC (Bld) 7.2 % Normal 4.0-14.0 [facility] Comment on above: Order Comment: Order Added by Discern Expert. Performed By: #### 2 099743, 0176588, 7167756, 155269472, 09233657, 3492872, 48363226, 2076305, 4467612 #### [facility] [address] [place] [address] Monocytes/Leukocytes Auto (Bld) [Pure # fraction] 0.3 E9/L Normal 0.2-1.0 [facility] Comment on above: Order Comment: Order Added by Discern Expert. Performed By: #### 2 301983, 2211682, 4521345, 518030215, 04539315, 0831586, 20625662, 2372478, 6081322 #### [facility] [address] [place] [address] Neutrophils/100 WBC (Bld) 52.2 % Normal 36.0-75.0 [facility] Comment on above: Order Comment: Order Added by Discern Expert. Performed By: #### 2 033338, 4944871, 1461085, 742100765, 82268969, 4137892, 88324925, 0828124, 9243317 #### [facility] [address] [place] [address] Neutrophils/Leukocyt es Auto (Bld) [Pure # fraction] 2.3 E9/L Normal 2.0-7.5 [facility] Comment on above: Order Comment: Order Added by Discern Expert. Performed By: #### 2 606591, 4406556, 2272063, 748855800, 25579638, 4256022, 50502478, 6428197, 1292975 #### [facility] [address] [place] [address] CBC w/ Auto Diffon 3 Erythrocyte distribution width (RBC) [Ratio] 13.4 % Normal 10.9-14.2 [facility] Comment on above: Performed By: #### 2 661458, 1422728, 4853267, 599937512, 83997169, 3667367, 72913886, 9734994, 6391123 #### [facility] [address] [place] [address] Hematocrit (Bld) [Volume fraction] 37.9 % Normal 34.0-46.0 [facility] Comment on above: Performed By: #### 2 551349, 2129593, 2438339, 955579006, 54191711, 5446747, 03641202, 7559843, 3512616 #### [facility] [address] [place] [address] Hemoglobin (Bld) [Mass/Vol] 13.1 g/dL Normal 12.0-16.0 [facility] Comment on above: Performed By: #### 2 768985, 0579836, 8826453, 071874996, 81127207, 4913566, 39248352, 7177964, 4752449 #### [facility] [address] [place] [address] MCH (RBC) [Entitic mass] 32.0 pg Normal 27.0-34.0 [facility] Comment on above: Performed By: #### 2 473816, 2871968, 3576291, 524518438, 34905685, 6620988, 42490620, 0156588, 9361390 #### [facility] [address] [place] [address] MCHC (RBC) [Mass/Vol] 34.5 g/dL Normal 31.4-36.0 [facility] Comment on above: Performed By: #### 2 510069, 8928138, 9922460, 919423069, 63823506, 7049584, 20228337, 5561009, 0010922 #### [facility] [address] [place] [address] MCV (RBC) [Entitic vol] 92.6 fL Normal 80.0-100.0 [facility] Comment on above: Performed By: #### 2 417115, 1518658, 4599825, 677774511, 66187059, 1656714, 56990673, 5868995, 6369890 #### [facility] [address] [place] [address] Platelet mean volume (Bld) [Entitic vol] 7.5 fL Normal 6.4-10.8 [facility] Comment on above: Performed By: #### 2 210965, 5521747, 7361570, 538361305, 49442939, 5819013, 24371802, 1836347, 7382360 #### [facility] [address] [place] [address] Platelets (Bld) [#/Vol] 291.0 E9/L Normal 150.0-500.0 [facility] Comment on above: Performed By: #### 2 275394, 8409030, 6283769, 020079123, 33150696, 3424293, 63678504, 0955416, 3799311 #### [facility] [address] [place] [address] RBC (Bld) [#/Vol] 4.1 E12/L Low 4.3-5.9 [facility] Comment on above: Performed By: #### 2 490979, 8283106, 7395084, 364985860, 10524301, 9877996, 63663436, 3598067, 9807928 #### [facility] [address] [place] [address] WBC corrected for nucl RBC Auto (Bld) [#/Vol] 4.5 E9/L Normal 4.0-11.0 [facility] Comment on above: Performed By: #### 2 494484, 3332992, 4079063, 935902233, 83329119, 8158450, 98955502, 2948984, 6978378 #### [facility] [address] [place] [address] CHEMISTRYOrdered By: SYSTEM SYSTEM on 09-29-2023 25-hydroxyvitamin D3 [Mass/Vol] 21.1 ng/mL Low 30.0 - 100.0 ng/mL [facility] Comment on above: Interpretive Data: Vitamin D deficiency has been defined as a level of serum 25-OH vitamin D less than 20 ng/mL (1,2) by the Garrard of Medicine and an Endocrine Society practice guideline. The Endocrine Society further defined vitamin D insufficiency as a level between 21 and 29 ng/mL (2). 1. IOM (Garrard of Medicine). 2010. Dietary reference intakes for calcium and D. Sue [place]: The National Academies Press. 2. Jaclyn MF, Julia NC, James BLISS, et al. Evaluation, treatment, and [...] Remisol Folate [Mass/Vol] 9.4 ng/mL Normal >=6.7ng/mL [facility] Re misol GFR/1.73 sq M.predicted among non-blacks MDRD (S/P/Bld) [Vol rate/Area] 97 mL/min/1.73 m2 Normal >=59mL/min/1.73 m2 [facility] Chem S Comment on above: Interpretive Data: C hronic kidney disease could be indicated at eGFR's of less than 60 mL/min/1.73m2. Kidney failure is indicated at less than 15 mL/min/1.73m2. Globulin (S) [Mass/Vol] 4.0 g/dL Normal 1.4 - 4.0 gm/dL [facility] Remisol Glucose [Mass/Vol] 89 mg/dL Normal 55 - 199 mg/dL [facility] Comment on above: Interpretive Data: I f this glucose result represents a fasting glucose, interpretation should refer to the following reference range: 55-99 mg/dL Magnesium [Mass/Vol] 2.1 mg/dL Normal 1.3 - 2.4 mg/dL [facility] Remisol Potassium [Moles/Vol] 3.5 mmol/L Normal 3.5 - 5.3 mmol/L [facility] Remisol Protein [Mass/Vol] 7.7 g/dL Normal 6.0 - 7.8 gm/dL [facility] Remisol Sodium [Moles/Vol] 139 mmol/L Normal 135 - 145 mmol/L [facility]isol TSH Qn 1.20 m[IU]/L Normal 0.34 - 5.60 mcIU/mL [facility] Urea nitrogen [Mass/Vol] 13 mg/dL Normal 5 - 21 mg/dL [facility]isol Urea nitrogen/Creatinine [Mass ratio] 19 mg/mg Normal 10 - 20 [facility] Remisol CMPon 09-29-2023 Albumin [Mass/Vol] 3.7 g/dL Normal 3.3-5.0 [facility] Comment on above: Performed By: #### 2 666414, 0899880, 7111657, 766638976, 65453686, 2441757, 21505709, 8734053, 6649841 #### [facility] [address] [place] [address] Albumin/Globulin (S) [Mass conc ratio] 0.9 Low 1.1-2.2 [facility] Comment on above: Performed By: #### 2 173448, 4046238, 3459529, 279013315, 65580823, 5506980, 14504386, 6518699, 4280563 #### [facility] [address] [place] [address] ALP [Catalytic activity/Vol] 132 Int._Unit/L High 21-98 [facility] Comment on above: Performed By: #### 2 018490, 5884563, 5265954, 365065880, 29043679, 1190937, 53179774, 3624386, 7801382 #### [facility] [address] [place] [address] ALT No additional P-5'-P [Catalytic activity/Vol] 14 Int._Unit/L Normal 6-46 [facility] Comment on above: Performed By: #### 2 116731, 5618104, 9513218, 095768592, 62924710, 5427118, 04403102, 1361854, 0257813 #### [facility] [address] [place] [address] Anion gap [Moles/Vol] 11 mmol/L Normal 6-16 [facility] Comment on above: Performed By: #### 2 999285, 2076115, 2351449, 517679960, 85138314, 3980360, 69820164, 9672228, 3888166 #### [facility] [address] [place] [address] AST [Catalytic activity/Vol] 19 Int._Unit/L Normal 5-43 [facility] Comment on above: Performed By: #### 2 004021, 8101905, 5831156, 315455294, 88040257, 1358321, 40820294, 8251555, 0187871 #### [facility] [address] [place] [address] Bilirubin [Mass/Vol] 0.2 mg/dL Normal 0.0-1.1 [facility] Comment on above: Performed By: #### 2 232724, 4959576, 2646659, 837891032, 65459603, 9692640, 56095606, 9379597, 8428923 #### [facility] [address] [place] [address] Calcium [Mass/Vol] 9.3 mg/dL Normal 8.9-11.1 [facility] Comment on above: Performed By: #### 2 570863, 1921806, 4549952, 747401627, 78086318, 2288112, 61932254, 5233247, 9658341 #### [facility] [address] [place] [address] Chloride [Moles/Vol] 106 mmol/L Normal 101-111 [facility] Comment on above: Performed By: #### 2 732756, 7172728, 7735494, 670269292, 92407106, 2418456, 13674956, 3519961, 4291085 #### [facility] [address] [place] [address] CO2 [Moles/Vol] 26 mmol/L Normal 21-31 [facility] Comment on above: Performed By: #### 2 412116, 8172971, 2723099, 249699184, 94764516, 8344665, 71058571, 3250250, 3345287 #### [facility] [address] [place] [address] Creatinine [Mass/Vol] 0.7 mg/dL Normal 0.5-1.3 [facility] Comment on above: Performed By: #### 2 496535, 0107110, 2891300, 496176971, 68995790, 9707449, 36675427, 6397591, 0222431 #### [facility] [address] [place] [address] Globulin (S) [Mass/Vol] 4.0 g/dL Normal 1.4-4.0 [facility] Comment on above: Performed By: #### 2 255581, 2021949, 8363489, 617569847, 23106989, 3162576, 73392561, 7176167, 2082836 #### [facility] [address] [place] [address] Glucose [Mass/Vol] 89 mg/dL Normal 55-199 [facility] Comment on above: Result Comment: If t his glucose result represents a fasting glucose, interpretation should refer to the following reference range: 55-99 mg/dL Performed By: #### 2 784281, 3104217, 4253773, 309562314, 78139765, 0413275, 99206180, 6571140, 8475970 #### [facility] [address] [place] [address] Potassium [Moles/Vol] 3.5 mmol/L Normal 3.5-5.3 [facility] Comment on above: Performed By: #### 2 309685, 7848020, 1509035, 659411357, 16312745, 8935059, 61938395, 0288699, 4842652 #### [facility] [address] [place] [address] Protein [Mass/Vol] 7.7 g/dL Normal 6.0-7.8 [facility] Comment on above: Performed By: #### 2 646251, 1933590, 1973927, 697536719, 39093334, 3775654, 09573175, 9288658, 1458522 #### [facility] [address] [place] [address] Sodium [Moles/Vol] 139 mmol/L Normal 135-145 [facility] Comment on above: Performed By: #### 2 488203, 8678281, 7673130, 394368185, 67169403, 3480072, 52906287, 7121186, 5175690 #### [facility] [address] [place] [address] Urea nitrogen [Mass/Vol] 13 mg/dL Normal 5-21 [facility] Comment on above: Performed By: #### 2 427512, 7719885, 3496897, 477880083, 68810706, 4026459, 55899322, 5578864, 0877058 #### [facility] [address] [place] [address] Urea nitrogen/Creatinine [Mass ratio] 19 No Units Normal 10-20 [facility] Comment on above: Performed By: #### 2 115753, 4891817, 5536728, 466404509, 33479946, 9333952, 31706702, 6135891, 2266068 #### [facility] [address] [place] [address] Consent for Flu Vaccineon Consent for Flu Vaccine [id number] 5#1.00TIFF Normal [facility] Office/Clini c Noteon 09-29-2023 [...] flu shot today. Ordered: FIRST VACCINE w/o [employer] Admin Charge [id number] 9. Fatigue (R53.83: Other fatigue) Encouraged the [...] List/Past Medical (more content not included)... Normal [facility] Comment on above: Result Comment: Elec tronically Signed By: Fidencio POSEY, Dorie Jean Baptiste\.br\Date and Time Signed: 09/29/23 10:01 EST Folateon 09-29-2023 Folate [Mass/Vol] 9.4 ng/mL Normal >=6.7 [facility] Comment on above: Performed By: #### 2 612897, 5390442, 9491339, 539174928, 79323882, 8068030, 38542113, 1681785, 0951682 #### [facility] [address] [place] [address] HEMATOLOGYOrdered By: SYSTEM SYSTEM on 09-29-2023 Basophils/100 [...] 2.3 E9/L Normal 2.0 - 7.5 E9/L FT HemeAutoSS HEMATOLOGYOrdered By: Halina Linda on 09-29-2023 Erythrocyte distribution width (RBC) [Ratio] 13.4 % Normal 10.9 - 14.2 % [facility] HemeAutoSS Hematocrit (Bld) [Volume fraction] 37.9 % Normal 34.0 - 46.0 % FT HemeAutoSS Hemoglobin (Bld) [Mass/Vol] 13.1 g/dL Normal 12.0 - 16.0 gm/dL [facility] HemeAutoSS MCH (RBC) [Entitic mass] 32.0 pg Normal 27.0 - 34.0 pg [facility] HemeAutoSS MCHC (RBC) [Mass/Vol] 34.5 g/dL Normal 31.4 - 36.0 gm/dL [facility] HemeAutoSS MCV (RBC) [Entitic vol] 92.6 fL Normal 80.0 - 100.0 fL [facility] HemeAutoSS Platelet mean volume (Bld) [Entitic vol] 7.5 fL Normal 6.4 - 10.8 fL [facility] HemeAutoSS Platelets (Bld) [#/Vol] 291.0 E9/L Normal 150.0 - 500.0 E9/L [facility]eAutoSS RBC (Bld) [#/Vol] 4.1 E12/L Low 4.3 - 5.9 E12/L [facility] HemeAutoSS WBC corrected for nucl RBC Auto (Bld) [#/Vol] 4.5 E9/L Normal 4.0 - 11.0 E9/L [facility] HemeAutoSS Magnesiumon 09-29-2023 Magnesium [Mass/Vol] 2.1 mg/dL Normal 1.3-2.4 [facility] Comment on above: Performed By: #### 2 937029, 4326978, 9940332, 857326899, 12827485, 6406555, 48830287, 1252281, 4540953 #### [facility] [address] [place] [address] TSH With T4fr Reflexon 09-29 TSH Qn 1.20 m[IU]/L Normal 0.34-5.60 [facility] Comment on above: Performed By: #### 2 419415, 9040241, 6092221, 200415254, 57578716, 4951479, 50467832, 1647851, 6241468 #### [facility] [address] [place] [address] Vit B12on 09-29-2023 Cobalamin (Vitamin B12) [Mass/Vol] 113 pg/mL Normal 50-1500 [facility] Comment on above: Performed By: #### 2 311579, 1976453, 3666635, 084501416, 90479172, 4556253, 72787336, 2406386, 7952728 #### [facility] [address] [place] [address] Vitamin D 25 Hydroxyon 09-29 25-hydroxyvitamin D3 [Mass/Vol] 21.1 ng/mL Low 30.0-100.0 [facility] Comment on above: Result Comment: Vit plata D deficiency has been defined as a level of serum 25-OH vitamin D less than 20 ng/mL (1,2) by the [employer]arrard of Medicine and an Endocrine Society practice guideline. The Endocrine Society further defined vitamin D insufficiency as a level between 21 and 29 ng/mL (2). 1. IOM (Garrard of Medicine). 2010. Dietary reference intakes for calcium and D. Sue [place]: The National Academies Press. 2. Jaclyn MF, Julia NC, Manuel-Michael BLISS, et al. Evaluation, treatment, and prevention of vitamin D deficiency: an Endocrine Society clinical practice guideline. JCEM. 2010; 96 (7):1911-30. Performed By: #### 2 573524, 7673349, 0893719, 827972884, 04439000, 8652095, 32373876, 1403241, 6594151 ####[facility] [address] [place] [address] eGFRon 09-29-2023 GFR/1.73 sq M.predicted among non-blacks MDRD (S/P/Bld) [Vol rate/Area] 97 mL/min/1.73 m2 Normal >=59 [facility] Comment on above: Order Comment: Order added by Discern Expert. Result Comment: Screwhead Polisher jerica kidney disease could be indicated at eGFR's of less than 60 mL/min/1.73m2. Kidney failure is indicated at less than 15 mL/min/1.73m2. Performed By: #### 2 200866, 3652058, 9853030, [id number], 80546112, 2018965, 80719078, 1251289, 2457309 #### [facility] [address] [place] [address] Coding Summary.on 09-19-2023 Coding Summary. [id number]#1.00TIFF Normal [facility] Pre-Visit Planningon 023 Pre-Visit Planning -- From: Beka LY, Alesia To: Fidencio POSEY, Dorie Jean Baptiste; Sent: 09/12/2023 11:21:33 EDT Subject: Pre-Visit Planning Due Date/Time: 09/12/2023 11:21:00 EDT Caller Name: LIVIA JACOBO; Caller Number: , Nm Dr. Luis, *Based on your response below, can you please update the chronic problem list and address during this visit if appropriate?* During a pre-visit planning chart review, I noted the following documentation in the medical record: Problem list- Acute ST elevation myocardial infarction (documented 07/09/2023) 07/09/2023 cardio ntsb-12-fjxb-old female with no prior cardiac history presents after 2 days of stuttering intermittent chest pain followed by worsening few hours ago. Found to have posterior STEMI and got primary PCI. Left-ventricular end-diastolic pressure was a little bit up in the Administrative Assistant EF was little bit down she got [...] feel free to contact me at extension [phone]. Thank you! Alesia Ireland, OSIRISN, RN, CCM, CCDS, CCDS-O -- From: Dorie Luis MD To: Alesia Ireland RN; Sent: 09/13/2023 08:36:08 EDT Subject: RE: Pre-Visit Planning Caller Name: LIVIA JACOBO; Caller Number: H , M Major depressive disorder, recurrent, mild Thanks -- [...] H , M hx of stemi Thanks [address] Pre-Visit Planningon 023 Pre-Visit Planning -- From: Alesia Ireland RN To: Dorie Luis MD; Sent: 09/12/2023 11:16:22 EDT Subject: Pre-Visit Planning Due Date/Time: 09/12/2023 11:16:00 EDT Caller Name: LIVIA JACOBO; Caller Number: Norberto , M Nm Dr. Luis, *Based on your response below, [...] feel free to contact me at extension [phone]. Thank you! Alesia Ireland, SAMIR, RN, CCM, CCDS, CCDS-O -- From: Dorie Luis MD To: Alesia Ireland RN; Sent: 09/13/2023 08:35:41 EDT Subject: RE: Pre-Visit Planning Caller Name: LIVIA JACOBO; Caller Number: Norberto , M Ok to add Normal [address] [facility] Pre-Visit Planning -- From: Alesia Ireland RN To: Dorie Luis MD; Sent: 09/12/2023 11:12:01 EDT Subject: Pre-Visit Planning Due Date/Time: 09/12/2023 11:11:00 EDT Caller Name: LIVIA JACOBO; Caller Number: Norberto , Shanna Hi Dr. Luis , During a pre-visit [...] feel free to contact me at extension [phone]. Thank you! SAMIR Felix, RN, CCM, CCDS, CCDS-O -- From: Fidencio POSEY, Dorie Jean Baptiste To: Beka LY, Alesia; Sent: 09/13/2023 08:35:24 EDT Subject: RE: Pre-Visit Planning Caller Name: LIVIA JACOBO; Caller Number: Norberto , M Major depressive disorder, recurrent, mild Please add Normal [address] [facility] Outside Operativeon 09-08-20 23 Outside Operative [id number] 139#[id number] Normal [facility] Basic metabolic 2000 panelon 09-07-2023 Anion gap [Moles/Vol] 13 mmol/L 10 - 20 mmol/L [facility] Calcium [Mass/Vol] 9.6 mg/dL 8.6 - 10.3 mg/dL [facility] Chloride [Moles/Vol] 103 mmol/L 98 - 107 mmol/L [facility] CO2 [Moles/Vol] 24 mmol/L 21 - 32 mmol/L [facility] Creatinine [Mass/Vol] 0.64 mg/dL 0.50 - 1.05 mg/dL [facility] GFR/1.73 sq M.predicted MDRD (S/P/Bld) [Vol rate/Area] - PINF [facility] Comment on above: Calculations of henry mated GFR are performed using the 2020 CKD-EPI Study Refit equation without the race variable for the IDMS-Traceable creatinine methods. https://jasn.asnjournals.org/content//ASN.9388400 988 Glucose [Mass/Vol] 98 mg/dL 74 - 99 mg/dL [facility] Interpretation and review of laboratory results Normal [facility] Potassium [Moles/Vol] 3.9 mmol/L 3.5 - 5.3 mmol/L [facility] Sodium [Moles/Vol] 136 mmol/L 136 - 145 mmol/L [facility] Urea nitrogen [Mass/Vol] 10 mg/dL 6 - 23 mg/dL [facility] Anion gap [Moles/Vol] 13 mmol/L Normal 10-20 [facility] Comment on above: Performed By: #### 2 4321-2 #### GEOVANI Roe ([id number]) [facility] [place] [address] [place] [address]183 Calcium [Mass/Vol] 9.6 mg/dL Normal 8.6-10.3 [facility] Comment on above: Performed By: #### 2 4321-2 #### GEOVANI Roe ([id number]) [facility] ([facility]) [address] [place] [address] 13179 Chloride [Moles/Vol] 103 mmol/L Normal 98-107 [facility] Comment on above: Performed By: #### 2 4321-2 #### GEOVANI Roe ([id number]) [facility] ([facility]) [address] [place] [address] 50979 CO2 [Moles/Vol] 24 mmol/L Normal 21-32 [facility] Comment on above: Performed By: #### 2 4321-2 #### GEOVANI Roe ([id number]) [facility] ([facility]) [address] [place] [address] 13116 Creatinine [Mass/Vol] 0.64 mg/dL Normal 0.50-1.05 [facility] Comment on above: Performed By: #### 2 4321-2 #### GEOVANI Roe ([id number]) [facility] ([facility]) [address] [place] [address] 59871 GFR/1.73 sq M.predicted MDRD (S/P/Bld) [Vol rate/Area] mL/min/{1.73_m2} Normal >60 [facility] Comment on above: Result Comment: Calc ulations of estimated GFR are performed using the 2020 CKD-EPI Study Refit equation without the race variable for the IDMS-Traceable creatinine methods. https://jasn.asnjournals.org/content//ASN.4502798 988 Performed By: #### 2 4321-2 #### GEOVANI Roe ([id number]) [facility] ([facility]) [address] [place] [address] 32979 Glucose [Mass/Vol] 98 mg/dL Normal 74-99 [facility] Comment on above: Performed By: #### 2 4321-2 #### GEOVANI Roe ([id number]) [facility] ([facility]) [address] [place] [address] 12876 Potassium [Moles/Vol] 3.9 mmol/L Normal 3.5-5.3 [facility] Comment on above: Performed By: #### 2 4321-2 #### GEOVANI Roe ([id number]) [facility] ([facility]) [address] [place] [address] 45904 Sodium [Moles/Vol] 136 mmol/L Normal 136-145 [facility] Comment on above: Performed By: #### 2 4321-2 #### GEOVANI Roe ([id number]) [facility] ([facility]) [address] [place] [address] 45832 Urea nitrogen [Mass/Vol] 10 mg/dL Normal 6-23 [facility] Comment on above: Performed By: #### 2 4321-2 #### GEOVANI Roe ([id number]) [facility] ([facility]) [address] [place] [address] 87852 CARDIAC CATHETERIZATION - CO Nichol 09-07-2023 CARDIAC CATHETERIZATION - CORONARY [facility], Administrative Assistant [address] [place] [address]4625 Cardiovascular Catheterization Report Patient Name: LIVIA JACOBO Performing Physician: Lewis Jansen MD Study Date: 09/07/2023 Verifying Physician: Lewis Jansen MD MRN/PID: [id number] Yarn Rewinder: Ordering Provider: Lewis JANSEN Date of /Age: 1210/17/1960 years Fellow: Gender: F Fellow: Study: Case [...] a modified Seldinger technique. Subsequently a 6 English sheath was placed in the right femoral artery. After infiltration with 2% Lidocaine, a second arterial access was obtained via the left femoral artery with a modified Seldinger technique and a 4 English sheath was placed. After completion of the [...] mid Right Coronary Artery. This segment is ABSTRACT SEARCHER. Coronary Interventions: Angiography reveals a 100% stenosis [...] Angioplasty, Right Coronary addl branch major Artery (PCI)-17370. 52425 Tiffany Jansen MD Performing Physician Final Normal [facility] CBC panel Auto (Bld)on 09-07 Erythrocyte distribution width (RBC) [Ratio] 12.3 % 11.5 - 14.5 % [facility] Hematocrit (Bld) [Volume fraction] 42.3 % 36.0 - 46.0 % [facility] Hemoglobin (Bld) [Mass/Vol] 14.4 g/dL 12.0 - 16.0 g/dL [facility] Interpretation and review of laboratory results Normal [facility] MCH (RBC) [Entitic mass] 31.9 pg 26.0 - 34.0 pg [facility] MCHC (RBC) [Mass/Vol] 34.0 g/dL 32.0 - 36.0 g/dL [facility] MCV (RBC) [Entitic vol] 94 fL 80 - 100 fL [facility] Nucleated RBC/100 WBC (Bld) [Ratio] 0.0 % [facility] Platelet mean volume (Bld) [Entitic vol] 9.5 fL 7.5 - 11.5 fL [facility] Platelets (Bld) [#/Vol] 231 10*3/uL [facility] RBC (Bld) [#/Vol] 4.51 10*6/uL [facility] WBC (Bld) [#/Vol] 6.0 10*3/uL [facility] Erythrocyte distribution width (RBC) [Ratio] 12.3 % Normal 11.5-14.5 [facility] Comment on above: Performed By: #### 5 8410-2 #### GEOVANI Roe ([id number]) [facility] (C) [address] [place] [address] 48777 Hematocrit (Bld) [Volume fraction] 42.3 % Normal 36.0-46.0 [facility] Comment on above: Performed By: #### 5 8410-2 #### GEOVANI Roe ([id number]) [facility] ([facility]) [address] [place] [address] 34666 Hemoglobin (Bld) [Mass/Vol] 14.4 g/dL Normal 12.0-16.0 [facility] Comment on above: Performed By: #### 5 8410-2 #### GEOVANI Roe ([id number]) [facility] ([facility] [address] [place] [address] 78690 MCH (RBC) [Entitic mass] 31.9 pg Normal 26.0-34.0 [facility] Comment on above: Performed By: #### 5 8410-2 #### GEOVANI Roe ([id number]) [facility] ([facility] [address] [place] [address] 40101 MCHC (RBC) [Mass/Vol] 34.0 g/dL Normal 32.0-36.0 [facility] Comment on above: Performed By: #### 5 8410-2 #### GEOVANI Roe ([id number]) [facility] ([facility]) [address] [place] [address] 47777 MCV (RBC) [Entitic vol] 94 fL Normal 80-100 [facility] Comment on above: Performed By: #### 5 8410-2 #### GEOVANI Roe ([id number]) [facility] (EM) [address] [place] [address] 00730 Nucleated RBC/100 WBC (Bld) [Ratio] 0.0 /100 WBCs Normal 0.0-0.0 [facility] Comment on above: Performed By: #### 5 8410-2 #### GEOVANI Roe ([id number]) [facility] ([facility]) [address] [place] [address] 04520 Platelet mean volume (Bld) [Entitic vol] 9.5 fL Normal 7.5-11.5 [facility] Comment on above: Performed By: #### 5 8410-2 #### GEOVANI Roe ([id number]) [facility] ([facility]) [address] [place] [address] 57191 Platelets (Bld) [#/Vol] 231 x10*3/uL Normal 150-450 [facility] Comment on above: Performed By: #### 5 8410-2 #### GEOVANI Roe ([id number]) [facility] ([facility]) [address] [place] [address] 53104 RBC (Bld) [#/Vol] 4.51 x10*6/uL Normal 4.00-5.20 [facility] Comment on above: Performed By: #### 5 8410-2 #### GEOVANI Roe ([id number]) [facility] ([facility]) [address] [place] [address] 86800 WBC (Bld) [#/Vol] 6.0 x10*3/uL Normal 4.4-11.3 [facility] Comment on above: Performed By: #### 5 8410-2 #### GEOVANI Roe ([id number]) [facility] ([facility] [address] [place] [address] 53756 Cardiac catheterization stud [facility] 09-07-2023 [facility], Administrative Assistant [address] [place] [address] 46399 Cardiovascular Catheterization Report Patient Name: LIVIA JACOBO Performing Physician: Lewis Jansen MD Study Date: 09/07/2023 Verifying Physician: Lewis Jansen MD MRN/PID: [id number] Yarn Rewinder: Ordering Provider: Lewis JANSEN Date of /Age: 1210/17/1960 / 62 years Fellow: Gender: F Fellow: Study: Case Aborted Indications: LIVIA JACOBO is a 63 year old female who presents with dyslipidemia, hypertension, prior myocardial infarction, prior percutaneous coronary intervention, chronic pulmonary disease, Current Smoker and a chest pain assessment of typical angina. Stable angina. Stress test performed: No. CTA performed: No. Caro accessed: No. LVEF Assessed: Yes. LVEF = 55%. Cardiac arrest: No. Cardiac surgical consult: No cardiac surgery not recommended. Cardiovascular Instability: No Frailty status of patient entering lab: 4 = Vulnerable. Procedure Description: After infiltration with 2% Lidocaine, the right femoral artery was cannulated with a modified Seldinger technique. Subsequently a 6 English sheath was placed in the right femoral artery. After infiltration with 2% Lidocaine, a second arterial access was obtained via the left femoral artery with a modified Seldinger technique and a 4 English sheath was placed. After completion of the [...] mid Right Coronary Artery. This segment is ABSTRACT SEARCHER. Coronary Interventions: Angiography reveals a 100% stenosis [...] Angioplasty, Right Coronary addl branch major Artery (PCI)-09648. 86136 Tiffany Jansen MD Performing Physician Final Tiffany Knight MD - 09/07/2023 [facility], Administrative Assistant [address] [place] [address] Cardiovascular Catheterization Report Patient Name: LIVIA JACOBO Performing Physician: [id number] Jansen MD Study Date: 09/07/2023 Verifying Physician: [id number] Tiffany Jansen MD MRN/PID: [id number] Yarn Rewinder: Ordering Provider: Lewis JANSEN Date of /Age: [...] a modified Seldinger technique. Subsequently a 6 English sheath was placed in the right femoral artery. After infiltration with 2% Lidocaine, a second arterial access was obtained via the left femoral artery with a modified Seldinger technique and a 4 English sheath was placed. After completion of the [...] mid Right Coronary Artery. This segment is ABSTRACT SEARCHER. Coronary Interventions: Angiography reveals a 100% stenosis [...] Angioplasty, Right Coronary addl branch major Artery (PCI)-80750. 13816 Tiffany Jansen MD Performing Physician Final [facility] Work Phone: [phone] [facility] Work Phone: ECG 12-LEADon 09-07-2023 ECG 12-LEAD Ventricular Rate 95 Atrial Rate 95 P-R Interval 130 QRS Duration 84 Q-T Interval 360 QTC Calculation(Bazett) 452 P Salem 63 R Salem 31 T Salem 0 QRS Count 16 Q Onset 213 P Onset 148 P Offset 210 T Offset 393 QTC Fredericia 419 Diagnosis Normal sinus rhythm ST & T wave abnormality, consider anterolateral ischemia Abnormal ECG No previous ECGs available Confirmed by Keith Mariscal ([id number]) on 09/09/2023 9:30:06 PM Normal [facility] PT and aPTT panel Coag (PPP) on 09-07-2023 aPTT Coag (PPP) [Time] 27 s [facility] INR Coag (PPP) [Relative time] 1.0 {INR} 0.9 - 1.1 [facility] Interpretation and review of laboratory results Normal [facility] PT Coag (PPP) [Time] 11.4 s [facility] The APTT is no longer used for monitoring Unfractionated Heparin Therapy. For monitoring Heparin Therapy, use the Heparin Assay. [facility] aPTT Coag (PPP) [Time] 27 s Normal 27-38 [facility] Comment on above: Order Comment: The A PTT is no longer used for monitoring Unfractionated Heparin Therapy. For monitoring Heparin Therapy, use the Heparin Assay. Performed By: #### 3 4529-8 #### GEOVANI Roe ([id number]) [facility] ([facility]) [address] [place] [address] 23732 INR Coag (PPP) [Relative time] 1.0 Normal 0.9-1.1 [facility] Comment on above: Order Comment: The A PTT is no longer used for monitoring Unfractionated Heparin Therapy. For monitoring Heparin Therapy, use the Heparin Assay. Performed By: #### 3 4529-8 #### GEOVANI BARNETTESRA Roe ([id number]) [facility] ([facility]) [address] [place] [address] PT Coag (PPP) [Time] 11.4 s Normal 9.8-12.8 [facility] Comment on above: Order Comment: The A PTT is no longer used for monitoring Unfractionated Heparin Therapy. For monitoring Heparin Therapy, use the Heparin Assay. Performed By: #### 3 4529-8 #### GEOVANI Roe ([id number]) [facility] ([facility]) [address] [place] [address] 43557 XR CHEST 2 VIEWSon XR CHEST 2 VIEWS Interpreted By: Debora Fu, STUDY: XR CHEST 2 VIEWS; INDICATION: Signs/Symptoms:pre PCI. COMPARISON: None ACCESSION NUMBER(S): [id number] ORDERING CLINICIAN: TIFFANY JANSEN FINDINGS: The cardiac silhouette size is within normal limits. Bandlike airspace opacities in the left lower lung zone is likely favored to represent atelectasis. There is no focal consolidation, edema or pneumothorax. No sizeable pleural effusion. No acute osseous abnormality. IMPRESSION: No acute cardiopulmonary process. Signed by: Debora Fu 09/09/2023 12:52 PM Dictation workstation: [id number] [facility] Comment on above: Order Comment: LIEN Álvarez please [facility][Note 3] 09-05-20 [facility] Case Information Case Priority: None Programs: Transition Care Management Complex Case Management Chronic Care/Condition Management [facility] Referral Source: System Identified Referral Reason: System identified Case Type: Transition Care Management Risk Score: 3.16 Case Status: Enrolled (September 05, 2023) Date Assigned: September 05, 2023 Assigned By: Miguel Kurtz Date Enrolled: September 05, 2023 Assigned Primary Personnel: Miguel Kurtz Assigned Secondary Personnel: -- Case Physician: Dorie Luis MD Ongoing Acute ST elevation myocardial infarction (STEMI) [...] you filled the Rx's? not yet, to hop picker today Are you taking them as prescribed? not yet Are you having difficulty eating or swallowing your pills? no Are you having any stomach upset, diarrhea or constipation? no How are you sleeping? didn't sleep well last night, concerned/nervous for PCI/cath scheduled 09/07/2023 at [facility] Are you having any pain? no Do you have everything you need at home to care for yourself? yes Do you have Home Health? no Spoke with patient for initial Transitional Care Management Program call. Patient is a moderate readmission risk score. Reviewed d/c instructions and dx of: Chest pain; Hypokalemia;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 [Volume fraction] 38.5 % Normal 34.0-46.0 [facility] Comment on above: Performed By: #### 2 632792, 9315816, 5640715, 387776178, 42025982, 2182021, 14637822, 5853863, 6044071 #### [facility] [address] [place] [address] Hemoglobin (Bld) [Mass/Vol] 13.1 g/dL Normal 12.0-16.0 [facility] Comment on above: Performed By: #### 2 617992, 8456066, 4712774, 359822153, 83557013, 2911743, 81479251, 1868453, 8310422 #### [facility] [address] [place] [address] MCH (RBC) [Entitic mass] 31.9 pg Normal 27.0-34.0 [facility] Comment on above: Performed By: #### 2 197118, 7544949, 2646284, 432249887, 03228250, 3308374, 20784252, 7214235, 7008182 #### [facility] [address] [place] [address] MCHC (RBC) [Mass/Vol] 34.1 g/dL Normal 31.4-36.0 [facility] Comment on above: Performed By: #### 2 444016, 4833414, 9407901, 492621389, 05903665, 2647387, 44755574, 2951712, 3980402 #### [facility] [address] [place] [address] MCV (RBC) [Entitic vol] 93.5 fL Normal 80.0-100.0 [facility] Comment on above: Performed By: #### 2 316087, 7751830, 7461539, 559410310, 72274535, 6715047, 48796532, 0581105, 1158796 #### [facility] [address] [place] [address] Platelet mean volume (Bld) [Entitic vol] 8.0 fL Normal 6.4-10.8 [facility] Comment on above: Performed By: #### 2 010561, 5985105, 3707196, 219998027, 35848183, 1379163, 61725132, 4882556, 5209896 #### [facility] [address] [place] [address] Platelets (Bld) [#/Vol] 240.0 E9/L Normal 150.0-500.0 [facility] Comment on above: Performed By: #### 2 137287, 8164376, 7586474, 420577954, 50047567, 2055556, 93448843, 9189831, 3877834 #### [facility] [address] [place] [address] RBC (Bld) [#/Vol] 4.1 E12/L Low 4.3-5.9 [facility] Comment on above: Performed By: #### 2 415835, 3248590, 8942546, 304325942, 44422536, 9897499, 92187116, 3154364, 8199975 #### [facility] [address] [place] [address] WBC corrected for nucl RBC Auto (Bld) [#/Vol] 6.8 E9/L Normal 4.0-11.0 [facility] Comment on above: Performed By: #### 2 277061, 2120708, 5648170, 616981730, 06410154, 0441362, 47883455, 2030246, 0790179 #### [facility] [address] [place] [address] CHEMISTRYOrdered By: SYSTEM SYSTEM on 09-01-2023 Troponin I.cardiac [Mass/Vol] 9.00 pg/mL Low 10.10 - 27.10 pg/mL [facility] Comment on above: Interpretive Data: T he 95% CI (Confidence Interval) PPV (Positive Predictive Value) for myocardial infarction in females is 38 pg/mL, in males 51 pg/mL. The results should be used in conjunction with clinical conditions of myocardial infarction. (Access High Sensitivity Troponin I Instructions For Use, Shivani Paris, June 2018) Albumin [Mass/Vol] 3.5 g/dL Normal [...] [Mass/Vol] mg/dL Normal 0.1 - 0.4 mg/dL [facility] Bilirubin.indirect [Mass or moles/Vol] Unable to Calculate mg/dL Invalid Interpretation Code 0.1 - 0.9 mg/dL [facility] Calcium [Mass/Vol] 8.7 mg/dL Low 8.9 - 11.1 mg/dL [facility] Chloride [Moles/Vol] 102 mmol/L Normal 101 - 111 mmol/ L [facility] CO2 [Moles/Vol] 21 mmol/L Normal 21 - 31 mmol/L [facility] Creatinine [Mass/Vol] 0.7 mg/dL Normal 0.5 - 1.3 mg/dL [facility] GFR/1.73 sq M.predicted among non-blacks MDRD (S/P/Bld) [Vol rate/Area] 97 mL/min/1.73 m2 Normal >=59mL/min/1.73 m2 [facility] S Comment on above: Interpretive Data: [...] g/dL Normal 6.0 - 7.8 gm/dL F C Remisol Sodium [Moles/Vol] 131 mmol/L Low 135 - 145 mmol/L FT Remisol Troponin I.cardiac [Mass/Vol] 8.20 pg/mL Low 10.10 - 27.10 pg/mL FT [facility]isol Comment on above: Interpretive Data: T he 95% CI (Confidence Interval) PPV (Positive Predictive Value) for myocardial infarction in females is 38 pg/mL, in males 51 pg/mL. The results should be used in conjunction with clinical conditions of myocardial infarction. (Access High Sensitivity Troponin I Instructions For Use, [employer], June 2018) Urea nitrogen [Mass/Vol] 8 mg/dL Normal 5 - 21 mg/dL [facility] Remisol Urea nitrogen/Creatinine [Mass ratio] 11 mg/mg Normal 10 - 20 [facility] Remisol COAGULATIONOrdered By: Yoli Scruggs on 09-01-2023 aPTT Coag (PPP) [Time] 31.9 s Normal 25.1 - 36.5 second(s) [facility] Auto Coag Comment on above: Interpretive Data: [...] the same coagulation reagent and instrumentation as [facility]. Currently there are no coagulation studies available worldwide for children to 14 days, and no normal ranges. Heparin therapeutic range (represented by Anti-Factor Xa activity of 0.2 - 0.4 U/mL) corresponds to PTT of 56.6 - 109.0 sec. INR Coag (PPP) [Relative time] 1.0 {INR} Invalid Interpretation Code [facility] Auto Coag Comment on above: Interpretive Data: I NR results are specifically intended to assess patients stabilized on long-term Anticoagulation therapy suggested INR s Less Intensive Anticoagulation 2.0 3.0 Conventional Range 3.0 4.5 PT Coag (PPP) [Time] 11.5 s Normal 9.4 - 1 2.5 second(s) [facility] Auto Coag Comment on above: Interpretive Data: [...] the same coagulation reagent and instrumentation as [facility]. Currently there are no coagulation studies available worldwide for children to 14 days, and no normal ranges. Consent for Treatmenton 08-14 Consent for Treatment [id number] Normal [facility] ED Clinical Summaryon 2022 ED Clinical Summary [place] [id number] ED Clinical Summary Person Information [facility]: [facility] Age: 62 Years : 1960 Sex: Female Language: Honduran PCP: Dorie Luis MD Marital Status: Visit Id: Visit Reason: Nausea; Chest pain; CHEST PAIN Speciality: Acuity: 2 Enc Type: Observation Med Service: Medical Arrival: 09/01/2023 18:57:13 Discharge: LOS: 000 02:57 Checkin: 09/01/2023 18:57:13 Checkout: 09/01/2023 21:54:30 Dispo Type: Admitted as IP to this [facility] EVENTS: Event Name Event Status Request Date/Time [...] 09/01/2023 20:53:46 09/01/2023 20:53:46 09/01/2023 20:53:47 ADDRESS: [address] [place] [id number] [facility] DOC NOTES: MEDICAL INFORMATION: Prescriptions Given: Medications [...] Tablets By Mouth every day. Refills: 1. [facility] Prescription (Handicap Placard, 5 years.) [...] obstructive pulmonary disease); 4:HTN (hypertension), benign Normal [facility] ED Note-Physicianon 09-01-20 ED Note-Physician Basic Information Time Seen: Sarah Friedman DO Milena 09/01/2023 19:01 Chief Complaint Pt reports she was eating dinner around 1800 when she started having chest pain with associated nausea. LA this year in june, 1 stent placed by sheila. +thinners. 4 ASA and 1 nitro given by EMS RECREATIONAL THERAPY AIDE. History of Present Illness Patient is a 62-year-old female with past medical history of hypertension, hyperlipidemia, COPD, CAD status post stenting presenting to the ED for evaluation of chest pain with associated nausea. Patient had a stent placed earlier this year in June by Dr. Jansen, states she still has some blockages and they were planning to do a staged PCI at [facility]. Patient states she was eating dinner and [...] and Complexity of Problems Differential Diagnosis: [] [facility] Data External documents reviewed: [] My [...] Piggyback, q2hr (more content not included)... Normal [facility] Comment on above: Result Comment: Elec tronically Signed By: Sarah Friedman DO\.br\Date and Time Signed: 09/01/23 21:52 EDT ED Patient Education Noteon 09-01-2023 ED Patient Education Note Normal [facility] ED Patient Summaryon 023 ED Patient Summary [place] [id number] Patient Discharge Instructions Person Information Name: LIVIA JACOBO Age: 62 Years Arrival Date: 09/01/2023 18:57:13 Discharge Diagnosis: 1:Chest pain; 2:Hypokalemia; 3:COPD (chronic obstructive pulmonary disease); 4:HTN (hypertension), benign Primary Care Physician: Dorie Luis MD Provider Information Primary Provider: Sarah Friedman DO Advanced Instrument Engineer:None The exam and treatment you received in the Emergency Department were for an urgent problem and are not intended as complete care. It is important that you follow up with a doctor, nurse practitioner, or physician?s assistant chief of police for ongoing care. If your symptoms become worse or you do not improve as expected and you are unable to reach your usual health care provider, you should return to the Emergency Department. We are available 24 hours a day. DONNELL LIVIA has been given the following list of [...] opioids can be used to help relieve yoxvekbn-mb-zffuol pain and are often prescribed following a [...] be struggling with addiction, tell your health md do resident urgent care and ask for guidance or call [facility] National Helpline at 5-416-907-WOIP. f Source: US Department of Health and Human Services/Center for Disease Control & Prevention Glendy (more content not included)... Normal [facility] HEMATOLOGYOrdered By: SYSTEM SYSTEM on 09-01-2023 [...] 5.5 % Normal 4.0 - 14.0 % FT HemeAutoSS Monocytes/Leukocytes Auto (Bld) [Pure # fraction] 0.4 E9/L Normal 0.2 - 1.0 E9/L [facility] HemeAutoSS Neutrophils/100 WBC (Bld) 61.4 % Normal 36.0 - 75.0 % FT HemeAutoSS Neutrophils/Leukocyt es Auto (Bld) [Pure # fraction] 4.1 E9/L Normal 2.0 - 7.5 E9/L FT HemeAutoSS HEMATOLOGYOrdered By: Dioni Mcmillan on 09-01-2023 Erythrocyte distribution width (RBC) [Ratio] 13.3 % Normal 10.9 - 14.2 % FT HemeAutoSS Hematocrit (Bld) [Volume fraction] 38.5 % Normal 34.0 - 46.0 % FT HemeAutoSS Hemoglobin (Bld) [Mass/Vol] 13.1 g/dL Normal 12.0 - 16.0 gm/dL FT HemeAutoSS MCH (RBC) [Entitic mass] 31.9 pg Normal 27.0 - 34.0 pg [facility] HemeAutoSS MCHC (RBC) [Mass/Vol] 34.1 g/dL Normal 31.4 - 36.0 gm/dL FT HemeAutoSS MCV (RBC) [Entitic vol] 93.5 fL Normal 80.0 - 100.0 fL [facility] HemeAutoSS Platelet mean volume (Bld) [Entitic vol] 8.0 fL Normal 6.4 - 10.8 fL FT HemeAutoSS Platelets (Bld) [#/Vol] 240.0 E9/L Normal 150.0 - 500.0 E9/L FT HemeAutoSS RBC (Bld) [#/Vol] 4.1 E12/L Low 4.3 - 5.9 E12/L FT HemeAutoSS WBC corrected for nucl RBC Auto (Bld) [#/Vol] 6.8 E9/L Normal 4.0 - 11.0 E9/L FT HemeAutoSS Hep Func Panelon 09-01-2023 Bilirubin.indirect [Mass or moles/Vol] UTC Abnormal 0.1-0.9 [facility] Comment on above: Result Comment: Resu lt verified by Discern Rule. Performed result UTC (Unable to Calculate) was sent as an Alpha code due the inability to calculate a valid numeric value. Performed By: #### 2 625501, 8183069, 1711227, 699786306, 10414777, 1520634, 32741730, 7400334, 2783496 #### [facility] [address] [place] [address] Albumin [Mass/Vol] 3.5 g/dL Normal 3.3-5.0 [facility] Comment on above: Performed By: #### 2 512378, 0204784, 4562634, 369766389, 44792147, 7665777, 44181876, 6046687, 7719878 #### [facility] [address] [place] [address] Albumin/Globulin (S) [Mass conc ratio] 1.0 Low 1.1-2.2 [facility] Comment on above: Performed By: #### 2 213690, 6059719, 9960857, 931833270, 24184594, 6207129, 78603463, 6227288, 9539926 #### [facility] [address] [place] [address] ALP [Catalytic activity/Vol] 136 Int._Unit/L High 21-98 [facility] Comment on above: Performed By: #### 2 411111, 0419191, 2020758, 182446981, 56183366, 5346915, 51205290, 8099038, 9887733 #### [facility] [address] [place] [address] ALT No additional P-5'-P [Catalytic activity/Vol] 20 Int._Unit/L Normal 6-46 [facility] Comment on above: Performed By: #### 2 363514, 4988819, 0583343, 779589711, 82286501, 3276837, 04969473, 9740623, 1433269 #### [facility] [address] [place] [address] AST [Catalytic activity/Vol] 24 Int._Unit/L Normal 5-43 [facility] Comment on above: Performed By: #### 2 823916, 5229341, 9579865, 933610340, 49346771, 6070551, 21833344, 3422853, 3670063 #### [facility] [address] [place] [address] Bilirubin [Mass/Vol] 0.1 mg/dL Normal 0.0-1.1 [facility] Comment on above: Performed By: #### 2 788806, 1168054, 3162078, 296440552, 11165516, 8506660, 85323952, 5677347, 3459086 #### [facility] [address] [place] [address] Globulin (S) [Mass/Vol] 3.4 g/dL Normal 1.4-4.0 [facility] Comment on above: Performed By: #### 2 154224, 5478680, 1848404, 399126994, 11992429, 1017920, 33506372, 3451591, 5043296 #### [facility] [address] [place] [address] Protein [Mass/Vol] 6.9 g/dL Normal 6.0-7.8 [facility] Comment on above: Performed By: #### 2 490685, 9692208, 5881918, 631128201, 73730325, 3918858, 29902749, 2258637, 0357477 #### [facility] [address] [place] [address] Bilirubin.direct [Mass/Vol] mg/dL Normal 0.1-0.4 [facility] Comment on above: Performed By: #### 2 265799, 5027148, 9890118, 916189451, 26866535, 1070145, 15572781, 3435025, 5893448 #### [facility] [address] [place] [address] Magnesiumon 09-01-2023 Magnesium [Mass/Vol] 1.8 mg/dL Normal 1.3-2.4 Fish [facility] Comment on above: Performed By: #### 2 435342, 8800122, 1914722, 422067947, 59273167, 7659808, 72866344, 1110860, 6013476 #### [facility] [address] [place] [address] PT & PTTon 09-01-2023 aPTT Coag (PPP) [Time] 31.9 second(s) Normal 25.1-36.5 [facility] Comment on above: Result Comment: Para [...] the same coagulation reagent and instrumentation as [facility]. Currently there are no coagulation studies available worldwide for children to 14 days, and no normal ranges. Heparin therapeutic range (represented by Anti-Factor Xa activity of 0.2 - 0.4 U/mL) corresponds to PTT of 56.6 - 109.0 sec. Performed By: #### 2 464368, 0925466, 3201519, 366571216, 56666402, 2848682, 89972255, 5063330, 4300038 #### [facility] [address] [place] [address] INR Coag (PPP) [Relative time] 1.0 {INR} Invalid Interpretation Code [facility] Comment on above: Result Comment: INR results are specifically intended to assess patients stabilized on long-term Anticoagulation therapy suggested INR?s ?Less Intensive Anticoagulation? 2.0 ? 3.0 Conventional Range 3.0 ? 4.5 Performed By: #### 2 832535, 6171838, 7587163, 550199498, 27309568, 1330337, 80458736, 3802776, 8140981 #### [facility] [address] [place] [address] PT Coag (PPP) [Time] 11.5 second(s) Normal 9.4-12.5 [facility] Comment on above: Result Comment: 15 [...] the same coagulation reagent and instrumentation as [facility]. Currently there are no coagulation studies available worldwide for children to 14 days, and no normal ranges. Performed By: #### 2 627658, 6396277, 5193172, 523690971, 43374450, 9724349, 48322190, 1817786, 0571236 #### [facility] [address] [place] [address] Pre-Arrival Noteon 3 Pre-Arrival Note Pre-Arrival Summary Name: [facility], Current Date: 09/01/2023 18:58:45 EDT Gender: Female Date of : Age: 62 Pre-Arrival Type: EMS ETA: 09/01/2023 19:16:00 EDT Primary Care Physician: Presenting Problem: CP Pre-Arrival User: Micaela Daugherty Referring Source: Location: [place] Completion Date/Time: 09/01/2023 00:00:00 [facility] Emergency Department Pre-Hospital Report Form ___ Vital Signs: bp 109/42, hr 103, spo2 97% RA Pre-Hospital Report: Treatment in Route: 324mg ASA, (1) nitro Response to Treatment: Misc. Issues: LA in June Normal [facility] Troponin 0 Hr.on 09-01-2023 Troponin I.cardiac [Mass/Vol] 8.20 pg/mL Low 10.10-27.10 [facility] Comment on above: Result Comment: The 95% CI (Confidence Interval) PPV (Positive Predictive Value) for myocardial infarction in females is 38 pg/mL, in males 51 pg/mL. The results should be used in conjunction with clinical conditions of myocardial infarction. (Access High Sensitivity Troponin I Instructions For Use, [employer], June 2018) Performed By: #### 2 149667, 5633170, 7020004, 779491852, 00080638, 4931470, 47424944, 2054131, 1477932 #### [facility] [address] [place] [address] Troponin 3 Hr.on 09-01-2023 Troponin I.cardiac [Mass/Vol] 9.00 pg/mL Low 10.10-27.10 [facility] Comment on above: Result Comment: The 95% CI (Confidence Interval) PPV (Positive Predictive Value) for myocardial infarction in females is 38 pg/mL, in males 51 pg/mL. The results should be used in conjunction with clinical conditions of myocardial infarction. (Access High Sensitivity Troponin I Instructions For Use, [employer], June 2018) Performed By: #### 2 874098, 5998540, 9897019, 627167622, 66438120, 5688057, 63974405, 0956600, 1631855 #### [facility] [address] [place] [address] eGFRon 09-01-2023 GFR/1.73 sq M.predicted among non-blacks MDRD (S/P/Bld) [Vol rate/Area] 97 mL/min/1.73 m2 Normal >=59 [facility] Comment on above: Order Comment: Order Added by Discern Expert. Result Comment: Screwhead Polisher jerica kidney disease could be indicated at eGFR's of less than 60 mL/min/1.73m2. Kidney failure is indicated at less than 15 mL/min/1.73m2. Performed By: #### 2 840865, 9871902, 9826921, 602439821, 19758389, 5123080, 20916874, 1784799, 0677431 #### [facility] [address] [place] [address] Auto Diffon 08-08-2023 Basophils/100 WBC (Bld) 1.2 % Normal 0.0-2.0 [facility] Comment on above: Order Comment: Order Added by Discern Expert. Performed By: #### 2 992142, 61518931, 0926484, 78770757, 80351127, 44196678, 8413235 ####[facility] [address] [place] [address] Basophils/Leukocytes Auto (Bld) [Pure # fraction] 0.1 E9/L Normal 0.0-0.2 [facility] Comment on above: Order Comment: Order Added by Discern Expert. Performed By: #### 2 002768, 62468455, 6379624, 76153280, 32073358, 35129298, 4699786 ####[facility] [address] [place] [address] Eosinophils/100 WBC (Bld) 3.4 % Normal 0.0-8.0 [facility] Comment on above: Order Comment: Order Added by Discern Expert. Performed By: #### 2 098074, 50428583, 7264369, 41723523, 51819284, 32420426, 4982188 ####[facility] [address] [place] [address] Eosinophils/Leukocyt es Auto (Bld) [Pure # fraction] 0.2 E9/L Normal 0.0-0.5 [facility] Comment on above: Order Comment: Order Added by Discern Expert. Performed By: #### 2 269050, 91831158, 4146628, 67450761, 90180150, 70933625, 0015647 ####[facility] [address] [place] [address] Lymphocytes/100 WBC (Bld) 30.2 % Normal 14.0-50.0 [facility] Comment on above: Order Comment: Order Added by Discern Expert. Performed By: #### 2 613652, 04315652, 9928117, 28718785, 96973268, 44178828, 7763564 ####[place] [address] [place] [address] Lymphocytes/Leukocyt es Auto (Bld) [Pure # fraction] 1.9 E9/L Normal 1.0-4.0 [facility] Comment on above: Order Comment: Order Added by Discern Expert. Performed By: #### 2 159632, 02869494, 3154532, 87962988, 01178899, 80204308, 5404102 ####[address] [address] Monocytes/100 WBC (Bld) 8.3 % Normal 4.0-14.0 [facility] Comment on above: Order Comment: Order Added by Discern Expert. Performed By: #### 2 601203, 95241144, 8711106, 91123724, 60442451, 19422873, 0089900 ####[address] [address] Monocytes/Leukocytes Auto (Bld) [Pure # fraction] 0.5 E9/L Normal 0.2-1.0 [facility] Comment on above: Order Comment: Order Added by Discern Expert. Performed By: #### 2 816058, 15843336, 7029168, 79330818, 21451965, 07533613, 2645961 ####[place] [address] [place] [address] Neutrophils/100 WBC (Bld) 56.9 % Normal 36.0-75.0 [facility] Comment on above: Order Comment: Order Added by Discern Expert. Performed By: #### 2 402179, 97154730, 1755025, 75311177, 50147876, 59625208, 5412879 ####[facility] [address] [place] [address] Neutrophils/Leukocyt es Auto (Bld) [Pure # fraction] 3.5 E9/L Normal 2.0-7.5 [facility] Comment on above: Order Comment: Order Added by Discern Expert. Performed By: #### 2 042622, 39972278, 5306864, 64370334, 71952761, 47486189, 3003711 ####[facility] [address] [place] [address] BMPon 08-08-2023 Creatinine [Mass/Vol] 0.6 mg/dL Normal 0.5-1.3 [facility] Comment on above: Performed By: #### 2 878930, 37791145, 8179726, 82899012, 60897204, 39268872, 5650575 ####[facility] [address] [place] [address] Urea nitrogen [Mass/Vol] 5 mg/dL Normal 5-21 [facility] Comment on above: Performed By: #### 2 345344, 68817210, 6820517, 30928142, 36694041, 74773669, 7018285 ####[facility] [address] [place] [address] Urea nitrogen/Creatinine [Mass ratio] 8 No Units Low 10-20 [facility] Comment on above: Performed By: #### 2 724546, 80444736, 3003477, 75963766, 38092443, 69077048, 4797131 ####[facility] [address] [place] [address] Anion gap [Moles/Vol] 13 mmol/L Normal 6-16 [facility] Comment on above: Performed By: #### 2 430221, 62385154, 8221891, 29946996, 79271332, 32746483, 6198909 ####[facility] [address] [place] [address] Calcium [Mass/Vol] 9.6 mg/dL Normal 8.9-11.1 [facility] Comment on above: Performed By: #### 2 244642, 22091645, 5239858, 85237112, 52850506, 19098879, 3898767 ####[facility] [address] [place] [address] Chloride [Moles/Vol] 107 mmol/L Normal 101-111 [facility] Comment on above: Performed By: #### 2 460620, 75611708, 1370216, 13921974, 32073555, 72688282, 9930057 ####[facility] [address] [place] [address] CO2 [Moles/Vol] 23 mmol/L Normal 21-31 [facility] Comment on above: Performed By: #### 2 822387, 41078853, 7278693, 59571652, 08675455, 16634725, 6052241 ####[facility] [address] [place] [address] Glucose [Mass/Vol] 100 mg/dL Normal 55-199 [facility] Comment on above: Result Comment: If t his glucose result represents a fasting glucose, interpretation should refer to the following reference range: 55-99 mg/dL Performed By: #### 2 702791, 07081342, 3975001, 92169957, 27412714, 96180243, 4927986 ####[facility] [address] [place] [address] Potassium [Moles/Vol] 3.1 mmol/L Low 3.5-5.3 [facility] Comment on above: Performed By: #### 2 890385, 80359750, 1311587, 13516524, 50763333, 05400431, 7908932 ####[facility] [address] [place] [address] Sodium [Moles/Vol] 140 mmol/L Normal 135-145 [facility] Comment on above: Performed By: #### 2 868092, 23355142, 2808351, 76287938, 16730704, 22562267, 4738843 ####[facility] [address] [place] [address] BNPon 08-08-2023 Int Ctr BNP Pass Normal [facility] Comment on above: Performed By: #### 2 175922, 17211440, 8428420, 83644490, 54019300, 85229256, 5503710 ####[facility] [address] [place] [address] Natriuretic peptide B (Bld) [Mass/Vol] 210 pg/mL High 5-80 [facility] Comment on above: Performed By: #### 2 954458, 98275752, 4270267, 07807629, 20165493, 81289346, 0227831 ####[place] [address] [place] [address] CBC w/ Auto Diffon Erythrocyte distribution width (RBC) [Ratio] 12.4 % Normal 10.9-14.2 [facility] Comment on above: Performed By: #### 2 695898, 87219108, 0488316, 12214401, 36267456, 19260277, 2518156 ####[place] [address] [place] [address] Hematocrit (Bld) [Volume fraction] 41.3 % Normal 34.0-46.0 [facility] Comment on above: Performed By: #### 2 834987, 63541573, 3840086, 19259652, 43303564, 53905022, 7280639 ####[place] [address] [place] [address] Hemoglobin (Bld) [Mass/Vol] 14.6 g/dL Normal 12.0-16.0 [facility] Comment on above: Performed By: #### 2 235854, 50490442, 7211433, 61481769, 30066875, 66503846, 9798612 ####[address] [place] [address] MCH (RBC) [Entitic mass] 32.4 pg Normal 27.0-34.0 [facility] Comment on above: Performed By: #### 2 731117, 83800025, 4701971, 10180868, 65804109, 35205666, 1119842 ####[address] [address] MCHC (RBC) [Mass/Vol] 35.4 g/dL Normal 31.4-36.0 [facility] Comment on above: Performed By: #### 2 410503, 99237681, 5330714, 57378996, 04931126, 93888329, 0478869 ####[address] [address] MCV (RBC) [Entitic vol] 91.4 fL Normal 80.0-100.0 [facility] Comment on above: Performed By: #### 2 994080, 04179795, 5239191, 74328655, 07620466, 43902603, 0785922 ####[address] [address] Platelet mean volume (Bld) [Entitic vol] 8.3 fL Normal 6.4-10.8 [facility] Comment on above: Performed By: #### 2 998275, 15428186, 8964554, 56780511, 80573185, 02574856, 1184788 ####[address] [address] Platelets (Bld) [#/Vol] 258.0 E9/L Normal 150.0-500.0 [facility] Comment on above: Performed By: #### 2 998830, 83466892, 7275500, 69194707, 61824254, 68394441, 1920197 ####[address] [address] RBC (Bld) [#/Vol] 4.5 E12/L Normal 4.3-5.9 [facility] Comment on above: Performed By: #### 2 320565, 68687506, 2097683, 56244870, 76884304, 23160951, 3203086 ####[facility] [address] [place] [address] WBC corrected for nucl RBC Auto (Bld) [#/Vol] 6.2 E9/L Normal 4.0-11.0 [facility] Comment on above: Performed By: #### 2 128925, 94063074, 1276152, 39302692, 40051324, 51574701, 4305770 ####[facility] [address] [place] [address] CHEMISTRYOrdered By: SYSTEM SYSTEM on 08-08-2023 Anion gap [Moles/Vol] 13 mmol/L Normal 6 - 16 mEq/L [facility] Remisol Calcium [Mass/Vol] 9.6 mg/dL Normal 8.9 - 11.1 mg/dL FT [facility] Chloride [Moles/Vol] 107 mmol/L Normal 101 - 111 mmol/ L [facility] CO2 [Moles/Vol] 23 mmol/L Normal 21 - 31 mmol/L [facility] Creatinine [Mass/Vol] 0.6 mg/dL Normal 0.5 - 1.3 mg/dL [facility] Remisol GFR/1.73 sq M.predicted among non-blacks MDRD (S/P/Bld) [Vol rate/Area] 101 mL/min/1.73 m2 Normal >=59mL/min/1.73 m2 [facility] Chem S Glucose [Mass/Vol] 100 mg/dL Normal 55 - 199 mg/dL [facility] Potassium [Moles/Vol] 3.1 mmol/L Low 3.5 - 5.3 mmol/L [facility] Sodium [Moles/Vol] 140 mmol/L Normal 135 - 145 mmol/L [facility] Troponin I.cardiac [Mass/Vol] 9.80 pg/mL Low 10.10 - 27.10 pg/mL [facility] Urea nitrogen [Mass/Vol] 5 mg/dL Normal 5 - 21 mg/dL [facility] Urea nitrogen/Creatinine [Mass ratio] 8 mg/mg Low 10 - 20 [facility] Remisol CHEMISTRYOrdered By: Sahra Kelley on 08-08-2023 Natriuretic peptide B (Bld) [Mass/Vol] 210 pg/mL High 5 - 80 pg/mL [facility] HemeManSS COAGULATIONOrdered By: Yoli Kael on 08-08-2023 aPTT Coag (PPP) [Time] 35.6 s Normal 25.1 - 36.5 second(s) [facility] Auto Coag INR Coag (PPP) [Relative time] 1.0 {INR} Invalid Interpretation Code [facility] Auto Coag PT Coag (PPP) [Time] 11.7 s Normal 9.4 - 1 2.5 second(s) [facility] Auto Coag Discharge Instructionson Discharge Instructions [id number] Normal [facility] ED Clinical Summaryon 2022 ED Clinical Summary [place] [id number] ED Clinical Summary Person Information [facility]: [facility] Age: 62 Years : 1960 Sex: Female Language: Honduran PCP: Dorie Luis MD Marital Status: Visit [...] 08/08/2023 16:19:29 08/08/2023 16:19:29 08/08/2023 16:19:29 ADDRESS: [address] [place] [id number] PHYS DOC NOTES: MEDICAL INFORMATION: Prescriptions Given: [...] every day. Refills: 1. Misc Prescription (Handicap Lotus, 5 years.) Handicap Lotus, 5 years.. Refills: 0. nitroglycerin (nitroglycerin 0.4 [...] Instructions: Follow up: With: Address: When: Your campus security director In 3 days 08/11/2023 With: Address: When: Dorie Luis [address] [place], [place] [id number] [facility] ([employer] In 3 days DIAGNOSIS: Dyspnea; Nausea Normal [facility] ED Note-Physicianon 08-08-20 ED Note-Physician Basic Information Time Seen: Arik LUBIN Lawrence 08/08/2023 14:28 Chief Complaint Pt nauseous and [...] refills Follow-up With When Contact Information Your campus security director In 3 days 08/11/2023 EDT Additional Instructions: Dorie Luis In 3 days [address] [id number] [facility] (2) Additional Instructions: Problem List/Past Medical [...] 5 mg (more content not included)... Normal [facility] Comment on above: Result Comment: Elec tronically Signed By: Lawrence Elise DO\.br\Date and Time Signed: 08/08/23 16:05 EDT ED Patient Education Noteon 08-08-2023 ED Patient Education Note Normal [facility] ED Patient Summaryon 023 ED Patient Summary [address] [address] Patient Discharge Instructions Person Information Name: LIVIA JACOBO Age: 62 Years Arrival Date: 08/08/2023 14:26:38 Discharge Diagnosis: Dyspnea; Nausea Primary Care Physician: Dorie Luis MD Provider Information Primary Provider: Lawrence Elise DO Advanced Instrument Engineer:None The exam and treatment you received in the Emergency Department were for an urgent problem and are not intended as complete care. It is important that you follow up with a doctor, nurse practitioner, or physician?s assistant chief of police for ongoing care. If your symptoms become worse or you do not improve as expected and you are unable to reach your usual health care provider, you should return to the Emergency Department. We are available 24 hours a day. LIVIA JACOBO has been given the following list of patient education materials, prescriptions and follow-up instructions: Follow-up Instructions: With: Address: When: Your campus security director In 3 days 08/11/2023 With: Address: When: Dorie Luis [address] [place] [phone] Business (2) In 3 days In the event that this physician does not participate in your insurance network, please consult with your insurance company to find a nearby participating provider. Patient Education Materials: A MESSAGE TO ALL PATIENTS REGARDING OPIOIDS PRESCRIPTION OPIOIDS: WHAT YOU NEED TO KNOW Prescription opioids can be used to help relieve faxtlxro-tk-jmsppa pain and are often prescribed following a [...] be struggling with addiction, tell your health md do resident urgent care and ask for guidance or call [facility]?S National Helpline at 7-325-176-COHO. m Source: [place] Depart (more content not included)... Normal [facility] HEMATOLOGYOrdered By: SYSTEM SYSTEM on 08-08-2023 Basophils/100 WBC (Bld) 1.2 % Normal 0.0 - 2.0 % [facility] [...] 1.0 E9/L [facility]eAutoSS Neutrophils/100 WBC (Bld) 56.9 % Normal 36.0 - 75.0 % [facility]Auto[facility] Neutrophils/Leukocyt es Auto (Bld) [Pure # fraction] 3.5 E9/L Normal 2.0 - 7.5 E9/L [facility]eAuto[facility] HEMATOLOGYOrdered By: Juan Jose Kelley on 08-08-2023 Erythrocyte distribution width (RBC) [Ratio] 12.4 % Normal 10.9 - 14.2 % [facility] Hematocrit (Bld) [Volume fraction] 41.3 % Normal 34.0 - 46.0 % [facility] Hemoglobin (Bld) [Mass/Vol] 14.6 g/dL Normal 12.0 - 16.0 gm/dL [facility] MCH (RBC) [Entitic mass] 32.4 pg Normal 27.0 - 34.0 pg [facility] MCHC (RBC) [Mass/Vol] 35.4 g/dL Normal 31.4 - 36.0 gm/dL [facility] MCV (RBC) [Entitic vol] 91.4 fL Normal 80.0 - 100.0 fL [facility] Platelet mean volume (Bld) [Entitic vol] 8.3 fL Normal 6.4 - 10.8 fL [facility] Platelets (Bld) [#/Vol] 258.0 E9/L Normal 150.0 - 500.0 E9/L [facility] RBC (Bld) [#/Vol] 4.5 E12/L Normal 4.3 - 5.9 E12/L [facility] HemeAutoSS WBC corrected for nucl RBC Auto (Bld) [#/Vol] 6.2 E9/L Normal 4.0 - 11.0 E9/L [facility] Monitor Recordon 08-08-2023 Monitor Record [id number]#1.00CD:127 Normal [facility] PT & PTTon 08-08-2023 aPTT Coag (PPP) [Time] 35.6 second(s) Normal 25.1-36.5 [facility] Comment on above: Result Comment: Para [...] the same coagulation reagent and instrumentation as [facility]. Currently there are no coagulation studies available worldwide for children to 14 days, and no normal ranges. Heparin therapeutic range (represented by Anti-Factor Xa activity of 0.2 - 0.4 U/mL) corresponds to PTT of 56.6 - 109.0 sec. Performed By: #### 2 198698, 75512087, 4418825, 70887158, 64999686, 42196179, 7959834 ####[facility] [address] [place] [address] INR Coag (PPP) [Relative time] 1.0 {INR} Invalid Interpretation Code [facility] Comment on above: Result Comment: INR results are specifically intended to assess patients stabilized on long-term Anticoagulation therapy suggested INR?s ?Less Intensive Anticoagulation? 2.0 ? 3.0 Conventional Range 3.0 ? 4.5 Performed By: #### 2 747964, 33524070, 7173850, 80860741, 00403211, 20384275, 5984025 ####[facility] [address] [place] [address] PT Coag (PPP) [Time] 11.7 second(s) Normal 9.4-12.5 [facility] Comment on above: Result Comment: 15 [...] the same coagulation reagent and instrumentation as [facility]. Currently there are no coagulation studies available worldwide for children to 14 days, and no normal ranges. Performed By: #### 2 689769, 12490611, 5081968, 45268010, 94147155, 09079973, 9272013 ####[facility] [address] [place] [address] Pre-Arrival Noteon Pre-Arrival Note Pre-Arrival Summary Name: ANU lares Current Date: 08/08/2023 14:30:03 EDT Gender: Female Date of : Age: 62 Pre-Arrival Type: EMS ETA: 08/08/2023 14:46:00 EDT Primary Care Physician: Presenting Problem: SOB Pre-Arrival User: Sachin LY, Benjamin Guillen Referring Source: Location: [place] Completion Date/Time: 08/08/2023 14:17:00 [facility] Emergency Department Pre-Hospital Report Form ___ Vital Signs: Pre-Hospital Report: Treatment in Route: Response to Treatment: Misc. Issues: Normal [facility] Troponin 0 Hr.on 08-08-2023 Troponin I.cardiac [Mass/Vol] 9.80 pg/mL Low 10.10-27.10 [facility] Comment on above: Result Comment: The 95% CI (Confidence Interval) PPV (Positive Predictive Value) for myocardial infarction in females is 38 pg/mL, in males 51 pg/mL. The results should be used in conjunction with clinical conditions of myocardial infarction. (Access High Sensitivity Troponin I Instructions For Use, Shivani Margo, June 2018) Performed By: #### 2 821708, 89672114, 4320613, 16161964, 09296228, 54639426, 2056998 ####[facility] [address] [place] [address] XR Chest Single Viewon 08-08 XR Chest [...] JEANINE Technologist: MYRON Technical Comments Radiation Dose: chinedu Villa in mGy = na DAP = na Normal [facility] eGFRon 08-08-2023 GFR/1.73 sq M.predicted among non-blacks MDRD (S/P/Bld) [Vol rate/Area] 101 mL/min/1.73 m2 Normal >=59 [facility] Comment on above: Order Comment: Order added by Discern Expert. Result Comment: Screwhead Polisher jerica kidney disease could be indicated at eGFR's of less than 60 mL/min/1.73m2. Kidney failure is indicated at less than 15 mL/min/1.73m2. Performed By: #### 2 590409, 19370809, 9389027, 57364015, 92294988, 90349018, 2853495 ####[facility] [address] [place] [address] Cardiovascular Reporton 07-15 Cardiovascular Report [id number] 254#3.00CD:127 Normal [facility] Physician Orderon 07-22-2023 Physician Order [id number] 215#1.00CD:127 Normal [facility] Ambulatory Visit Summaryon 0 07-21-2023 Ambulatory Visit Summary LIVIA JACOBO :1960 Visit Date:07/21/2023 Ambulatory Visit Instructions Your Care Team Attending Physician - Sheila POSEY, Tiffany Chavarria Primary Care Physician - Dorie Luis MD Referring Physician - Dorie Luis MD This Is Your Medications List [facility] Prescription (Rosangela Gautam, 5 years.) [...] With: Fidencio POSEY, Dorie Jean Baptiste Where: [place] [id number]- \.br\ Medications\.br\ What How Much When Why [...] legs syndrome)\.br\ Walker as ambulation aid\.br\ \.br\ [facility] Consent for Treatmenton Consent for Treatment [id number] CC#1.00CD:127 Normal [facility] Physician Referralon 023 Physician Referral [id number] 3#1.00CD:127 Normal [facility] Ambulatory Visit Summaryon 0 07-13-2023 Ambulatory Visit Summary LIVIA JACOBO :1960 Visit Date:07/13/2023 Ambulatory Visit Instructions Your Diagnosis Hospital discharge follow-up Acute ST elevation myocardial infarction (STEMI), unspecified artery Current smoker BMI 32.0-32.9,adult Class 1 obesity due to excess calories in adult Your Care Team Attending Physician - Dorie Luis MD. Primary Care Physician - Dorie Luis MD This Is Your Medications List [facility] Prescription (Rosangela Gautam, 5 years.) [...] Sheila POSEY, Tiffany Chavarria Where: [facility] [place] 2022 2:20 PM EDT With: Fidencio POSEY, Dorie Jean Baptiste Where: [facility] Normal [address] [phone]- \.br\ Medications\.br\ What How Much When Why [...] Mouth Every day\.br\ Unchanged Misc Prescription (Handicap Sanketrock, 5 years.) See instructions Anxiety and depression [...] legs syndrome)\.br\ Walker as ambulation aid\.br\ \.br\ [facility] Family Medicine Office/Clini c Noteon 07-13-2023 Family Medicine Office/Clinic Note HPI Staff Patient presents for hospital follow up Juan Pablo Cole Admitted: 07/09/23 Discharged: 07/10/23 Dx [place], had stent placed Any specialists: none Any [...] reviewed Ordered: Cardiac Rehab - Ambulatory Referral [facility] Internal Ambulatory Referral 2. Acute ST elevation myocardial infarction (STEMI), unspecified artery (I21.3: ST elevation (STEMI) myocardial infarction of unspecified site) - Stenting place - Cardiology referral placed - Cardiac Rehab placed Ordered: Body Mass Index (BMI) documented 3008F Cardiac Rehab - Ambulatory Referral Current tobacco smoker 1034F Depression Screening Positive 3354F [facility] Internal Ambulatory Referral Most recent diastolic blood [...] tobacco smoker 1034F Depression Screening Positive 3354F [facility] Internal Ambulatory Referral Most recent diastolic blood [...] tobacco smoker 1034F Depression Screening Positive 3354F [facility] Internal Ambulatory Referral Most recent diastolic blood [...] tobacco smoker 1034F Depression Screening Positive 3354F [facility] Internal Ambulatory Referral Most recent diastolic blood [...] BID traZO (more content not included)... Normal [facility] Comment on above: Result Comment: Elec tronically Signed By: Fidencio POSEYDorie.br\Date and Time Signed: 07/13/23 16:23 EDT Discharge Instructionson Discharge Instructions [id number] 03#1.00CD:127 Normal [facility] Cardiovascular Reporton 06-15 Cardiovascular Report [id number] 19#1.00CD:127 Normal [facility] Consent for Procedure/Surger yon 07-11-2023 Consent for Procedure/Surgery [id number] 79#1.00CD:127 Normal [facility] Auto Diffon 07-10-2023 Basophils/100 WBC (Bld) 0.2 % Normal 0.0-2.0 [facility] Comment on above: Order Comment: Order Added by Discern Expert. Performed By: #### 2 038353, 9368481, 4652958, 773315078, 88816633, 7260023, 69093892, 8045806, 6669928 #### [facility] [address] [place] [address] Basophils/Leukocytes Auto (Bld) [Pure # fraction] 0.0 E9/L Normal 0.0-0.2 [facility] Comment on above: Order Comment: Order Added by Discern Expert. Performed By: #### 2 891039, 4107565, 3921547, 859802111, 14084596, 1139171, 39721308, 1562936, 2073294 #### [facility] [address] [place] [address] Eosinophils/100 WBC (Bld) 2.9 % Normal 0.0-8.0 [facility] Comment on above: Order Comment: Order Added by Discern Expert. Performed By: #### 2 389083, 5439428, 7086433, 958541281, 98826379, 7467724, 00005321, 1166027, 5692872 #### [facility] [address] [place] [address] Eosinophils/Leukocyt es Auto (Bld) [Pure # fraction] 0.1 E9/L Normal 0.0-0.5 [facility] Comment on above: Order Comment: Order Added by Discern Expert. Performed By: #### 2 661634, 7225239, 1962373, 063765809, 51921881, 3750764, 89385273, 7940333, 6817287 #### [facility] [address] [place] [address] Lymphocytes/100 WBC (Bld) 34.5 % Normal 14.0-50.0 [facility] Comment on above: Order Comment: Order Added by Discern Expert. Performed By: #### 2 904274, 4580282, 2911143, 880761436, 94860758, 5942487, 62695984, 2110064, 6521870 #### [facility] [address] [place] [address] Lymphocytes/Leukocyt es Auto (Bld) [Pure # fraction] 1.4 E9/L Normal 1.0-4.0 [facility] Comment on above: Order Comment: Order Added by Discern Expert. Performed By: #### 2 481573, 2575853, 6853211, 217501243, 17382559, 3774267, 12555657, 5451231, 4926336 #### [facility] [address] [place] [address] Monocytes/100 WBC (Bld) 11.2 % Normal 4.0-14.0 [facility] Comment on above: Order Comment: Order Added by Discern Expert. Performed By: #### 2 839111, 6578798, 7377195, 435580607, 31092318, 1858797, 77301698, 9953874, 4858881 #### [facility] [address] [place] [address] Monocytes/Leukocytes Auto (Bld) [Pure # fraction] 0.5 E9/L Normal 0.2-1.0 [facility] Comment on above: Order Comment: Order Added by Discern Expert. Performed By: #### 2 988748, 2861860, 3010622, 050387868, 67713410, 9059943, 96652782, 3344752, 7934288 #### [facility] [address] [place] [address] Neutrophils/100 WBC (Bld) 51.2 % Normal 36.0-75.0 [facility] Comment on above: Order Comment: Order Added by Discern Expert. Performed By: #### 2 212657, 7846755, 0050284, 705938376, 58599915, 0947238, 88197704, 5272111, 8992937 #### [facility] [address] [place] [address] Neutrophils/Leukocyt es Auto (Bld) [Pure # fraction] 2.1 E9/L Normal 2.0-7.5 [facility] Comment on above: Order Comment: Order Added by Discern Expert. Performed By: #### 2 691029, 1790429, 6594117, 613665412, 71559784, 1735770, 55231938, 8693947, 4629965 #### [facility] [address] [place] [address] BMPon 07-10-2023 Anion gap [Moles/Vol] 7 mmol/L Normal 6-16 [facility] Comment on above: Performed By: #### 2 106178, 7591610, 4172350, 231343556, 95833779, 8896597, 42368263, 6856180, 3616306 #### [facility] [address] [place] [address] Calcium [Mass/Vol] 8.7 mg/dL Low 8.9-11.1 [facility] Comment on above: Performed By: #### 2 463681, 2729008, 8706421, 858537562, 28237147, 2070250, 73553628, 8238914, 5296502 #### [facility] [address] [place] [address] Chloride [Moles/Vol] 113 mmol/L High 101-111 [facility] Comment on above: Performed By: #### 2 477296, 7741675, 8808602, 117396490, 14747528, 9325644, 62602536, 9014149, 2686813 #### [facility] [address] [place] [address] CO2 [Moles/Vol] 27 mmol/L Normal 21-31 [facility] Comment on above: Performed By: #### 2 690215, 5075221, 4668224, 521112626, 44222323, 4667535, 17065357, 8637825, 1346025 #### [facility] [address] [place] [address] Creatinine [Mass/Vol] 0.6 mg/dL Normal 0.5-1.3 [facility] Comment on above: Performed By: #### 2 293666, 1565257, 8943423, 872741316, 58026530, 5398402, 12913194, 9300965, 3638225 #### [facility] [address] [place] [address] Glucose [Mass/Vol] 114 mg/dL Normal 55-199 [facility] Comment on above: Result Comment: If t his glucose result represents a fasting glucose, interpretation should refer to the following reference range: 55-99 mg/dL Performed By: #### 2 121850, 9834861, 1017698, 531138085, 64253106, 0538132, 50575974, 4264048, 1760410 #### [facility] [address] [place] [address] Potassium [Moles/Vol] 3.8 mmol/L Normal 3.5-5.3 [facility] Comment on above: Performed By: #### 2 503577, 1066078, 2268269, 539661176, 67122279, 8435389, 72393082, 6209120, 4063139 #### [facility] [address] [place] [address] Sodium [Moles/Vol] 143 mmol/L Normal 135-145 [facility] Comment on above: Performed By: #### 2 098222, 8108995, 4827338, 534684096, 98669485, 2312274, 65661019, 4094235, 0617618 #### [facility] [address] [place] [address] Urea nitrogen [Mass/Vol] 6 mg/dL Normal 5-21 [facility] Comment on above: Performed By: #### 2 010326, 9137310, 8429550, 332965079, 40668606, 0385344, 73950288, 5179638, 0184169 #### [facility] [address] [place] [address] Urea nitrogen/Creatinine [Mass ratio] 10 No Units Normal 10-20 [facility] Comment on above: Performed By: #### 2 639357, 4528309, 0095821, 692417330, 48578960, 0193819, 27678084, 5722347, 8855844 #### [facility] [address] [place] [address] CBC w/ Auto Diffon 3 Erythrocyte distribution width (RBC) [Ratio] 12.8 % Normal 10.9-14.2 [facility] Comment on above: Performed By: #### 2 599964, 1322243, 5732507, 549006943, 73640980, 8907119, 50369562, 8370715, 8607945 #### [facility] [address] [place] [address] Hematocrit (Bld) [Volume fraction] 40.0 % Normal 34.0-46.0 [facility] Comment on above: Performed By: #### 2 995065, 0613464, 5186395, 061320866, 62945704, 6199111, 58637548, 5035737, 1328198 #### [facility] [address] [place] [address] Hemoglobin (Bld) [Mass/Vol] 13.8 g/dL Normal 12.0-16.0 [facility] Comment on above: Performed By: #### 2 736955, 8213088, 3120507, 760964559, 66616610, 7727323, 56781576, 6922659, 4432935 #### [facility] [address] [place] [address] MCH (RBC) [Entitic mass] 32.2 pg Normal 27.0-34.0 [facility] Comment on above: Performed By: #### 2 560765, 7496364, 6241569, 433669781, 20698945, 6212432, 50956713, 9754835, 2673527 #### [facility] [address] [place] [address] MCHC (RBC) [Mass/Vol] 34.4 g/dL Normal 31.4-36.0 [facility] Comment on above: Performed By: #### 2 552492, 0250418, 8981519, 346767832, 84750698, 9723715, 66866151, 4685484, 0140185 #### [facility] [address] [place] [address] MCV (RBC) [Entitic vol] 93.6 fL Normal 80.0-100.0 [facility] Comment on above: Performed By: #### 2 840216, 2009747, 6729559, 368069318, 35087563, 0737319, 50291558, 7562006, 0981943 #### [facility] [address] [place] [address] Platelet mean volume (Bld) [Entitic vol] 7.9 fL Normal 6.4-10.8 [facility] Comment on above: Performed By: #### 2 906899, 7350522, 9051429, 389233734, 72785209, 4645061, 25832769, 1409793, 2662435 #### [facility] [address] [place] [address] Platelets (Bld) [#/Vol] 250.0 E9/L Normal 150.0-500.0 [facility] Comment on above: Performed By: #### 2 742511, 1525035, 9615421, 470770364, 98815208, 8443666, 68145288, 5459755, 7144109 #### [facility] [address] [place] [address] RBC (Bld) [#/Vol] 4.3 E12/L Normal 4.3-5.9 [facility] Comment on above: Performed By: #### 2 611724, 3038923, 7580544, 708632277, 19316015, 2408287, 94889525, 2882780, 0846221 #### [facility] [address] [place] [address] WBC corrected for nucl RBC Auto (Bld) [#/Vol] 4.2 E9/L Normal 4.0-11.0 [facility] Comment on above: Performed By: #### 2 543386, 8059744, 7415399, 759319344, 84427716, 3922338, 96657446, 7420139, 5147397 #### [facility] [address] [place] [address] CHEMISTRYOrdered By: SYSTEM SYSTEM on 07-10-2023 Anion gap [Moles/Vol] 7 mmol/L Normal 6 - 16 mEq/L [facility] Remisol Calcium [Mass/Vol] 8.7 mg/dL Low [...] 23 mg/dL Normal 7 - 40 mg/dL [facility] CO2 [Moles/Vol] 27 mmol/L Normal 21 - 31 mmol/L [facility] Creatinine [Mass/Vol] 0.6 mg/dL Normal 0.5 - 1.3 mg/dL [facility] Remisol GFR/1.73 sq M.predicted among non-blacks MDRD (S/P/Bld) [Vol rate/Area] 101 mL/min/1.73 m2 Normal >=59mL/min/1.73 m2 [facility] Chem S Glucose [Mass/Vol] 114 mg/dL Normal 55 - 199 mg/dL [facility] Potassium [Moles/Vol] 3.8 mmol/L Normal 3.5 - 5.3 mmol/L [facility] Sodium [Moles/Vol] 143 mmol/L Normal 135 - 145 mmol/L [facility] Triglyceride [Mass/Vol] 115 mg/dL Normal <=149mg/dL [facility] Urea nitrogen [Mass/Vol] 6 mg/dL Normal 5 - 21 mg/dL [facility] Urea nitrogen/Creatinine [Mass ratio] 10 mg/mg Normal 10 - 20 [facility] Anion gap [Moles/Vol] 10 mmol/L Normal 6 - 16 mEq/L [facility] Chloride [Moles/Vol] 111 mmol/L Normal 101 - 111 mmol/ L [facility] CO2 [Moles/Vol] 26 mmol/L Normal 21 - 31 mmol/L [facility] Magnesium [Mass/Vol] 1.8 mg/dL Normal 1.3 - 2.4 mg/dL [facility] Potassium [Moles/Vol] 3.8 mmol/L Normal 3.5 - 5.3 mmol/L [facility] Sodium [Moles/Vol] 143 mmol/L Normal 135 - 145 mmol/L [facility] Remisol Troponin I.cardiac [Mass/Vol] 7681.70 pg/mL Invalid Interpretation Code 10.10 - 27.10 pg/mL [facility] Comment on above: Result Comment: Crit [...] was a little bit up in the Administrative Assistant EF was little bit down she got [...] Recorded pneumococcal 13-valent vaccine 07/15/2014 Recorded Normal [facility] Comment on above: Result Comment: Elec [...] 93.6 fL Normal 80.0 - 100.0 fL [facility]eAuto[facility] Platelet mean volume (Bld) [Entitic vol] 7.9 fL Normal 6.4 - 10.8 fL [facility] Platelets (Bld) [#/Vol] 250.0 E9/L Normal 150.0 - 500.0 E9/L [facility] RBC (Bld) [#/Vol] 4.3 E12/L Normal 4.3 - 5.9 E12/L [facility] HemeAutoSS WBC corrected for nucl RBC Auto (Bld) [#/Vol] 4.2 E9/L Normal 4.0 - 11.0 E9/L [facility] Inpatient Patient Summaryon 07-10-2023 Inpatient Patient [...] care physician. This Is Your Medications List [facility] Prescription (Rosangela Gautam, 5 years.) [...] Pending Diagnostic Test Results None Pharmacy Information [facility] Previously Scheduled Follow-Up Appointments 2022 2:20 PM EDT With: Fidencio POSEY, Dorie Jean Baptiste Where: [place] [address]- \.br\ New Follow Up Appointments after Discharge\.br\ Follow Up with Dorie Luis When: In 0 days\.br\ Where:\.br\ [address] [place] [address]\.br\ [place] [address].br\ [facility] (2)\.br\ Medications\.br\ What How Much When Why Instructions Next Dose\.br\ New aspirin (aspirin 81 mg Oral EC Tab) 1 Tablets By Mouth Every day 07/11/23\.br\ New atorvastatin (atorvastatin 40 mg Tab) 2 Tablets By Mouth At bedtime Pickup at [facility] 1155 07/10/23 pm\.br\ New carvedilol (Coreg 3.125 mg Tab) 1 Tablets By Mouth 2 times a day Refills: 1 Pickup at [facility] 1155 07/10/23 pm\.br\ New nitroglycerin (nitroglycerin 0.4 mg sublingual Tab) 1 Tablets Sublingual Every 5 minutes as needed for Chest pain Pickup at [facility] 1155 as needed\.br\ New ticagrelor (ticagrelor 90 mg oral tablet) 1 Tablets By Mouth [address] times a day Acute ST elevation myocardial infarction (STEMI) MAINTENACE DOSE Pickup at [facility] 07/10/23 pm\.br\ Unchanged albuterol (Albuterol (Eqv-ProAir [...] Every day resume\.br\ Unchanged Misc Prescription (Handicap Lotus, 5 years.) See instructions Anxiety and depression Depression, unspecified HTN (hypertension), benign RLS (restless legs syndrome) Chronic obstructive pulmonary disease, unspecified COPD type Primary insomnia Current smoker Polyneuropathy Walker as ambulation aid Adult BMI 33.0-33.9 kg/sq m Handicap Lotus, 5 years. \.br\ Unchanged olanzapine (ZyPREXA 5 [...] Pharmacy Information\.br\ [facility]: [address], [place] [id number] [phone]\.br\ Test Results\.br\ CBC \.br\ BMP \.br\ WBC: [...] is also called a myocardial infarction, or LA. If you think you are having a [...] instructions at home:\.br\ Medicines\.br\ ? \.br\ Take ndud-qhn-cxxhery and prescription medicines only as told by your doctor.\.br\ ? \.br\ [facility] Lipid Panelon 07-10-2023 Cholesterol [Mass/Vol] 139 mg/dL Normal 120-200 [facility] Comment on above: Performed By: #### 2 317178, 5229102, 8252893, 777649089, 05932940, 2946723, 60856666, 0842534, 9368758 #### [facility] [address] [place] [address] Cholesterol in HDL [Mass/Vol] 33 mg/dL Invalid Interpretation Code [facility] Comment on above: Result Comment: HDL > or equal to 60 mg/dL: Low cardiovascular risk HDL < 40 mg/dL : High cardiovascular risk Performed By: #### 2 824849, 2310676, 0321840, 224829289, 87494548, 7957324, 39872389, 5445618, 6180301 #### [facility] [address] [place] [address] Cholesterol in LDL [Mass/Vol] 84 mg/dL Normal <=129 [facility] Comment on above: Performed By: #### 2 522597, 4942748, 2565983, 955295426, 98484158, 4221395, 26607545, 6679857, 7801061 #### [facility] [address] [place] [address] Cholesterol in VLDL [Mass/Vol] 23 mg/dL Normal 7-40 [facility] Comment on above: Performed By: #### 2 576687, 8649142, 2631541, 711711822, 95984116, 6342104, 84797956, 3593621, 8538007 #### [facility] [address] [place] [address] Triglyceride [Mass/Vol] 115 mg/dL Normal <=149 [facility] Comment on above: Performed By: #### 2 110259, 4701048, 8539952, 372452515, 65249627, 6105596, 50269298, 5387925, 0528391 #### [facility] [address] [place] [address] Lyteson 07-10-2023 Anion gap [Moles/Vol] 10 mmol/L Normal 6-16 [facility] Comment on above: Performed By: #### 2 799918, 3909580, 8902401, 955621034, 46859558, 0800551, 40418894, 8871801, 0910177 #### [facility] [address] [place] [address] Chloride [Moles/Vol] 111 mmol/L Normal 101-111 [facility] Comment on above: Performed By: #### 2 799324, 8298541, 5018193, 438776284, 35687832, 4797775, 27873291, 3755927, 5072737 #### [facility] [address] [place] [address] CO2 [Moles/Vol] 26 mmol/L Normal 21-31 [facility] Comment on above: Performed By: #### 2 386104, 6367411, 1538859, 000261042, 88162028, 4238431, 53122401, 8998976, 5980851 #### [facility] [address] [place] [address] Potassium [Moles/Vol] 3.8 mmol/L Normal 3.5-5.3 [facility] Comment on above: Performed By: #### 2 277337, 6592696, 1138363, 653298038, 65378350, 5716578, 83538934, 3087510, 5523626 #### [facility] [address] [place] [address] Sodium [Moles/Vol] 143 mmol/L Normal 135-145 [facility] Comment on above: Performed By: #### 2 253974, 4002296, 0792469, 996937949, 49819682, 0363175, 77087173, 2091444, 4211956 #### [facility] [address] [place] [address] Magnesiumon 07-10-2023 Magnesium [Mass/Vol] 1.8 mg/dL Normal 1.3-2.4 [facility] Comment on above: Performed By: #### 2 199457, 5671846, 5983521, 389921552, 99252969, 1870291, 15542637, 6772319, 3252928 #### [facility] [address] [place] [address] Monitor Recordon 07-10-2023 Monitor Record [id number]:127 Normal [facility] Operative Reporton 3 Operative Report Indication for Surgery Posterior STEMI [...] patient will additionally be counseled by the Administrative Assistant team and in follow-up. CAD: DAPT, beta-tamika, statin, risk factor modification. Complications None Technique Following full and informed consent the patient was brought to the Administrative Assistant where sterile prep and drape were administered in usual fashion. Anesthesia was obtained in the right wrist with lidocaine after administration of conscious sedation. A 5/6 slender Terumo sheath was placed in the right radial artery without complication. Nitroglycerin and nicardipine were given via the sheath and heparin was given intravenously. A 6 English XB3.0 catheter was advanced and selectively engaged [...] end of the procedure without complication. Normal [facility] Comment on above: Result Comment: Elec tronically Signed By: Sheila POSEY, Tiffany Chavarria\.br\Date and Time Signed: 07/10/23 03:28 EDT Troponin 6 Hr.on 07-10-2023 Troponin I.cardiac [Mass/Vol] 7681.70 pg/mL Abnormal 10.10-27.10 [facility] Comment on above: Result Comment: Crit [...] High Sensitivity Troponin I Instructions For Use, [employer], June 2018) Performed By: #### 2 376280, 4205301, 8398490, 246160213, 51372954, 7467794, 86693483, 8033533, 4462437 #### [facility] [address] [place] [address] Troponin 9 Hr.on 07-10-2023 Troponin I.cardiac [Mass/Vol] 9476.90 pg/mL Abnormal .-.10 [facility] Comment on above: Result Comment: Crit [...] High Sensitivity Troponin I Instructions For Use, [employer], June 2018) Performed By: #### 2 554059, 2019774, 5622657, 597296081, 64281828, 4542727, 07547865, 9674468, 6441753 #### [facility] [address] [place] [address] XR Chest Single Viewon 07-10 XR Chest [...] calcifications. No acute osseous findings. Ordering Provider: iSlver Martinez FINAL REPORT Dictated: 07/10/2023 8:17 am Silas Chen MD Signed (Electronic Signature): 07/10/2023 8:17 am Signed by: Silas Chen MD Transcribed by: JEANINE Technologist: JORGE A Technical Comments Radiation Dose: Ka,r in mGy = . DAP = . Normal [facility] eGFRon 07-10-2023 GFR/1.73 sq M.predicted among non-blacks MDRD (S/P/Bld) [Vol rate/Area] 101 mL/min/1.73 m2 Normal >=59 [facility] Comment on above: Order Comment: Order added by Discern Expert. Result Comment: Screwhead Polisher jerica kidney disease could be indicated at eGFR's of less than 60 mL/min/1.73m2. Kidney failure is indicated at less than 15 mL/min/1.73m2. Performed By: #### 2 462832, 9400877, 6045740, 595911660, 48958094, 8941534, 28515256, 8965645, 5703685 #### [facility] [address] [place] [address] Auto Diffon 07-09-2023 Basophils/100 WBC (Bld) 0.6 % Normal 0.0-2.0 [facility] Comment on above: Order Comment: Order Added by Discern Expert. Performed By: #### 2 767096, 8946740, 3480296, 357600479, 05815412, 2017388, 45949563, 1964070, 4609275 #### [facility] [address] [place] [address] Basophils/Leukocytes Auto (Bld) [Pure # fraction] 0.0 E9/L Normal 0.0-0.2 [facility] Comment on above: Order Comment: Order Added by Discern Expert. Performed By: #### 2 175073, 6804535, 2638897, 958749543, 13708047, 5357450, 95657599, 0301364, 4142071 #### [facility] [address] [place] [address] Eosinophils/100 WBC (Bld) 1.5 % Normal 0.0-8.0 [facility] Comment on above: Order Comment: Order Added by Discern Expert. Performed By: #### 2 888770, 5188930, 3637182, 702755138, 96974923, 7696766, 71487083, 8929163, 1455640 #### [facility] [address] [place] [address] Eosinophils/Leukocyt es Auto (Bld) [Pure # fraction] 0.1 E9/L Normal 0.0-0.5 [facility] Comment on above: Order Comment: Order Added by Discern Expert. Performed By: #### 2 121232, 7198337, 7214880, 051229634, 78882762, 0435082, 66096909, 6152107, 7165055 #### [facility] [address] [place] [address] Lymphocytes/100 WBC (Bld) 32.6 % Normal 14.0-50.0 [facility] Comment on above: Order Comment: Order Added by Discern Expert. Performed By: #### 2 433363, 7200117, 9217447, 319328117, 58446056, 6526177, 44366328, 3967962, 7944998 #### [facility] [address] [place] [address] Lymphocytes/Leukocyt es Auto (Bld) [Pure # fraction] 1.8 E9/L Normal 1.0-4.0 [facility] Comment on above: Order Comment: Order Added by Discern Expert. Performed By: #### 2 567601, 8282931, 2342876, 458111713, 82884668, 5069879, 48320473, 7165536, 3650670 #### [facility] [address] [place] [address] Monocytes/100 WBC (Bld) 8.5 % Normal 4.0-14.0 [facility] Comment on above: Order Comment: Order Added by Discern Expert. Performed By: #### 2 770082, 7705448, 9255363, 798921096, 89116203, 0659622, 44067994, 2010533, 7044498 #### [facility] [address] [place] [address] Monocytes/Leukocytes Auto (Bld) [Pure # fraction] 0.5 E9/L Normal 0.2-1.0 [facility] Comment on above: Order Comment: Order Added by Discern Expert. Performed By: #### 2 353279, 2015411, 5891519, 331158129, 49021186, 4219930, 21063815, 5528340, 1430295 #### [facility] [address] [place] [address] Neutrophils/100 WBC (Bld) 56.8 % Normal 36.0-75.0 [facility] Comment on above: Order Comment: Order Added by Discern Expert. Performed By: #### 2 720004, 8990302, 9738756, 158198638, 20878791, 4035345, 16393295, 3636243, 3988145 #### [facility] [address] [place] [address] Neutrophils/Leukocyt es Auto (Bld) [Pure # fraction] 3.2 E9/L Normal 2.0-7.5 [facility] Comment on above: Order Comment: Order Added by Discern Expert. Performed By: #### 2 033853, 6615794, 0588002, 882999921, 86996542, 7882263, 91987582, 2885869, 5753150 #### [facility] [address] [place] [address] BMPon 07-09-2023 Anion gap [Moles/Vol] 12 mmol/L Normal 6-16 [facility] Comment on above: Performed By: #### 2 485607, 3295518, 5278609, 716132574, 88060593, 5088802, 44849255, 8442778, 9257972 #### [facility] [address] [place] [address] Calcium [Mass/Vol] 9.3 mg/dL Normal 8.9-11.1 [facility] Comment on above: Performed By: #### 2 078020, 7130623, 5345102, 244873899, 49353873, 9637921, 88758461, 8576532, 1344257 #### [facility] [address] [place] [address] Chloride [Moles/Vol] 100 mmol/L Low 101-111 [facility] Comment on above: Performed By: #### 2 296538, 8069640, 1533700, 271095732, 66640565, 4374697, 40083652, 2627619, 2612950 #### [facility] [address] [place] [address] CO2 [Moles/Vol] 29 mmol/L Normal 21-31 [facility] Comment on above: Performed By: #### 2 492532, 6029684, 6402708, 448164924, 21224578, 4127783, 66311403, 1153587, 4355204 #### [facility] [address] [place] [address] Creatinine [Mass/Vol] 0.7 mg/dL Normal 0.5-1.3 [facility] Comment on above: Performed By: #### 2 345653, 5193913, 6475725, 854185176, 21895649, 4648723, 44746300, 6948953, 8869342 #### [facility] [address] [place] [address] Glucose [Mass/Vol] 101 mg/dL Normal 55-199 [facility] Comment on above: Result Comment: If t his glucose result represents a fasting glucose, interpretation should refer to the following reference range: 55-99 mg/dL Performed By: #### 2 979357, 8016056, 9817912, 324913724, 22920691, 1205926, 64874415, 3150107, 0792479 #### [facility] [address] [place] [address] Potassium [Moles/Vol] 2.9 mmol/L Low 3.5-5.3 [facility] Comment on above: Performed By: #### 2 737682, 3976921, 7894437, 412774174, 46315477, 8950929, 80903539, 1603714, 1525467 #### [facility] [address] [place] [address] Sodium [Moles/Vol] 138 mmol/L Normal 135-145 [facility] Comment on above: Performed By: #### 2 699243, 5140309, 0278118, 763943155, 43622967, 2171584, 74734531, 2125733, 8978231 #### [facility] [address] [place] [address] Urea nitrogen [Mass/Vol] 7 mg/dL Normal 5-21 [facility] Comment on above: Performed By: #### 2 883512, 8462287, 2374380, 699340664, 39095814, 1891254, 26618443, 8189070, 4313783 #### [facility] [address] [place] [address] Urea nitrogen/Creatinine [Mass ratio] 10 No Units Normal 10-20 [facility] Comment on above: Performed By: #### 2 701170, 4786846, 3025850, 065750111, 41699255, 6168654, 73165333, 1449467, 6566995 #### [facility] [address] [place] [address] CBC w/ Auto Diffon 3 Erythrocyte distribution width (RBC) [Ratio] 12.6 % Normal 10.9-14.2 [facility] Comment on above: Performed By: #### 2 048933, 8790453, 7013522, 069116641, 94240857, 8818209, 95842554, 3089990, 7705608 #### [facility] [address] [place] [address] Hematocrit (Bld) [Volume fraction] 42.8 % Normal 34.0-46.0 [facility] Comment on above: Performed By: #### 2 660611, 3489848, 4109916, 015310863, 25874131, 2104446, 04348592, 4977534, 7099774 #### [facility] [address] [place] [address] Hemoglobin (Bld) [Mass/Vol] 14.7 g/dL Normal 12.0-16.0 [facility] Comment on above: Performed By: #### 2 249159, 9691453, 4925784, 571443201, 92872169, 6895103, 60897498, 4862723, 9532849 #### [facility] [address] [place] [address] MCH (RBC) [Entitic mass] 32.3 pg Normal 27.0-34.0 [facility] Comment on above: Performed By: #### 2 777338, 7196902, 3509084, 815907299, 87358952, 1988845, 61972252, 6086823, 6306430 #### [facility] [address] [place] [address] MCHC (RBC) [Mass/Vol] 34.4 g/dL Normal 31.4-36.0 [facility] Comment on above: Performed By: #### 2 505661, 1565367, 1125094, 010583337, 86519959, 4237536, 83801271, 9836962, 5773597 #### [facility] [address] [place] [address] MCV (RBC) [Entitic vol] 93.8 fL Normal 80.0-100.0 [facility] Comment on above: Performed By: #### 2 016670, 1741100, 3806903, 357460532, 24155332, 7005577, 48724285, 9328261, 0205781 #### [facility] [address] [place] [address] Platelet mean volume (Bld) [Entitic vol] 8.2 fL Normal 6.4-10.8 [facility] Comment on above: Performed By: #### 2 714004, 4900498, 2419121, 385535382, 04950764, 2100026, 21412489, 8341782, 7172209 #### [facility] [address] [place] [address] Platelets (Bld) [#/Vol] 266.0 E9/L Normal 150.0-500.0 [facility] Comment on above: Performed By: #### 2 017080, 5015893, 4219003, 632070847, 50643207, 7723899, 41104152, 2149627, 7442126 #### [facility] [address] [place] [address] RBC (Bld) [#/Vol] 4.6 E12/L Normal 4.3-5.9 [facility] Comment on above: Performed By: #### 2 675396, 5232472, 1297744, 454237406, 06611718, 8190261, 53565161, 6120592, 7054501 #### [facility] [address] [place] [address] WBC corrected for nucl RBC Auto (Bld) [#/Vol] 5.6 E9/L Normal 4.0-11.0 [facility] Comment on above: Performed By: #### 2 140375, 4205268, 4689808, 412164958, 71222406, 1977726, 10392708, 5231643, 1188517 #### [facility] [address] [place] [address] CHEMISTRYOrdered By: SYSTEM SYSTEM on 07-09-2023 Troponin I.cardiac [Mass/Vol] 2850.80 pg/mL Invalid Interpretation Code 10.10 - 27.10 pg/mL [facility] Comment on above: Result Comment: Crit [...] rate/Area] 97 mL/min/1.73 m2 Normal >=59mL/min/1.73 m2 [facility] Chem S Glucose [Mass/Vol] 101 mg/dL Normal 55 - 199 mg/dL [facility] Potassium [Moles/Vol] 2.9 mmol/L Low 3.5 - 5.3 mmol/L [facility] Sodium [Moles/Vol] 138 mmol/L Normal 135 - 145 mmol/L [facility] Urea nitrogen [Mass/Vol] 7 mg/dL Normal 5 - 21 mg/dL [facility] Urea nitrogen/Creatinine [Mass ratio] 10 mg/mg Normal 10 - 20 [facility] COAGULATIONOrdered By: Santiago Schwarz on 07-09-2023 aPTT Coag (PPP) [Time] 32.3 s Normal 25.1 - 36.5 second(s) [facility] Auto Coag INR Coag (PPP) [Relative time] 1.0 {INR} Invalid Interpretation Code [facility] Auto Coag PT Coag (PPP) [Time] 10.9 s Normal 9.4 - 1 2.5 second(s) [facility] Auto Coag Consent for Treatmenton 06-15 Consent for Treatment [id number]#[id number]:127 Normal [facility] ED Note-Physicianon 07-09-20 ED Note-Physician Basic Information Time Seen: Silver Martinez DO 07/09/2023 19:35 Chief Complaint Pt. presents to [...] and Complexity of Problems Differential Diagnosis: [] [facility] Data External documents reviewed: N/A My EKG [...] for cardiology. Patient be taken to the Administrative Assistant for further intervention. Shared decision making: As [...] sulfamethoxazole (Unknow (more content not included)... Normal [facility] Comment on above: Result Comment: Elec [...] 56.8 % Normal 36.0 - 75.0 % FT [facility] Neutrophils/Leukocyt es Auto (Bld) [Pure # fraction] 3.2 E9/L Normal 2.0 - 7.5 E9/L [facility] HEMATOLOGYOrdered By: Dioni Mcmillan on 07-09-2023 Erythrocyte distribution width (RBC) [Ratio] 12.6 % Normal 10.9 - 14.2 % FT [facility] Hematocrit (Bld) [Volume fraction] 42.8 % Normal 34.0 - 46.0 % [facility] Hemoglobin (Bld) [Mass/Vol] 14.7 g/dL Normal 12.0 - 16.0 gm/dL [facility] MCH (RBC) [Entitic mass] 32.3 pg Normal 27.0 - 34.0 pg FT [facility] MCHC (RBC) [Mass/Vol] 34.4 g/dL Normal 31.4 - 36.0 gm/dL FT [facility] MCV (RBC) [Entitic vol] 93.8 fL Normal 80.0 - 100.0 fL [facility] Platelet mean volume (Bld) [Entitic vol] 8.2 fL Normal 6.4 - 10.8 fL [facility] Platelets (Bld) [#/Vol] 266.0 E9/L Normal 150.0 - 500.0 E9/L [facility] RBC (Bld) [#/Vol] 4.6 E12/L Normal 4.3 - 5.9 E12/L FT [facility] WBC corrected for nucl RBC Auto (Bld) [#/Vol] 5.6 E9/L Normal 4.0 - 11.0 E9/L [facility] Monitor Recordon 07-09-2023 Monitor Record [id number]#[id number]:127 Normal [facility] Monitor Record [id number]#1.00CD:127 Normal [facility] PT & PTTon 07-09-2023 aPTT Coag (PPP) [Time] 32.3 second(s) Normal 25.1-36.5 [facility] Comment on above: Result Comment: Para [...] the same coagulation reagent and instrumentation as [facility]. Currently there are no coagulation studies available worldwide for children to 14 days, and no normal ranges. Heparin therapeutic range (represented by Anti-Factor Xa activity of 0.2 - 0.4 U/mL) corresponds to PTT of 56.6 - 109.0 sec. Performed By: #### 2 207871, 4954730, 9657165, 893193995, 11597463, 5307249, 96448519, 8053043, 2771059 #### [facility] [address] [place] [address] INR Coag (PPP) [Relative time] 1.0 {INR} Invalid Interpretation Code [facility] Comment on above: Result Comment: INR results are specifically intended to assess patients stabilized on long-term Anticoagulation therapy suggested INR?s ?Less Intensive Anticoagulation? 2.0 ? 3.0 Conventional Range 3.0 ? 4.5 Performed By: #### 2 842490, 6068160, 8138659, 185752040, 36570930, 8930493, 19822488, 9686657, 4205148 #### [facility] [address] [place] [address] PT Coag (PPP) [Time] 10.9 second(s) Normal 9.4-12.5 [facility] Comment on above: Result Comment: 15 [...] the same coagulation reagent and instrumentation as [facility]. Currently there are no coagulation studies available worldwide for children to 14 days, and no normal ranges. Performed By: #### 2 434558, 3867935, 1264864, 399233697, 81822181, 5489036, 38510107, 5842702, 5534728 #### [facility] [address] [place] [address] Pre-Arrival Noteon 3 Pre-Arrival Note Pre-Arrival Summary Name: chest pain/nausea, ncems Current Date: 07/09/2023 19:33:15 EDT Gender: Female Date of : Age: Pre-Arrival Type: EMS ETA: 07/09/2023 19:52:00 EDT Primary Care Physician: Presenting Problem: chest pains Pre-Arrival User: Ant Anglin RN Referring Source: Location: [place] Completion Date/Time: 07/09/2023 19:22:00 [facility] Emergency Department Pre-Hospital Report Form ___ Vital Signs: 96/61 97p/ulse, 18, 98% room air/ , Pre-Hospital Report:chest pain onset 1 hour ago. Treatment in Route: 4 ASA, zofran x2, nitro x1. IV with fluids infusing. Response to Treatment: Misc. Issues: Normal [facility] RAD - Preliminary Radiology Reporton 07-09-2023 RAD - Preliminary Radiology Report [id number] 655#[id number]:127 Normal [facility] Troponin 0 Hr.on 07-09-2023 Troponin I.cardiac [Mass/Vol] 509.70 pg/mL Abnormal 10.10-27.10 [facility] Comment on above: Result Comment: Unab [...] conjunction with clinical conditions of myocardial infarction. ([employer] High Sensitivity Troponin I Instructions For Use, [employer], June 2018) Performed By: #### 2 419583, 1016928, 0851529, 857390247, 60056506, 5421794, 85472945, 1494407, 4579922 #### [facility] [address] [place] [address] Troponin 3 Hr.on 07-09-2023 Troponin I.cardiac [Mass/Vol] 2850.80 pg/mL Abnormal 10.10-27.10 [facility] Comment on above: Result Comment: Crit [...] conjunction with clinical conditions of myocardial infarction. ([employer] High Sensitivity Troponin I Instructions For Use, [employer], June 2018) Performed By: #### 2 392336, 2967919, 1613179, 743046870, 70804770, 2870768, 84351749, 5363354, 8974218 #### [facility] [address] [place] [address] eGFRon 07-09-2023 GFR/1.73 sq M.predicted among non-blacks MDRD (S/P/Bld) [Vol rate/Area] 97 mL/min/1.73 m2 Normal >=59 [facility] Comment on above: Order Comment: Order added by Discern Expert. Result Comment: Screwhead Polisher jerica kidney disease could be indicated at eGFR's of less than 60 mL/min/1.73m2. Kidney failure is indicated at less than 15 mL/min/1.73m2. Performed By: #### 2 885790, 4796980, 3767293, 333739431, 72588343, 3490610, 04659589, 6922235, 7511756 #### [facility] [address] [place] [address] Creatinine (Bld) [Mass/Vol]O rdered By: Jose Cruz on 06-18-2023 Creatinine [Mass/Vol] 0.7 mg/dL 0.6-1.3 [facility] Comment on above: ER/ESD physician is notified/shown all ISTAT results.Critical values may be confirmed by laboratory testing ifdeemed necessary by ER attending doctor. METHYLMALONIC ACID (MMA)on 0 02-16-2023 Methylmalonic Acid, Serum 141 nmol/L Normal 0-378 [facility] Comment on above: Performed By: #### M MA2 #### [facility] [address] [place] [address] Dr. Khadra Pascual PROTEIN ELECTROPHERESIS W/IN TERPRETATIONon 02-16-2023 Albumin [Mass/Vol] 3.6 g/dL Normal 2.9-4.4 [facility] Comment on above: Performed By: #### P RTELIN #### [facility] [address] [place] [address] [address] [address] Khadra Pascual Albumin/Globulin [Mass ratio] 1.0 {ratio} Normal 0.7-1.7 [facility] Comment on above: Performed By: #### P RTELIN #### [facility] [address] [address] [address] Khadra Pascual Kfsez-7-Jeeminic 0.3 g/dL Normal 0.0-0.4 [facility] Comment on above: Performed By: #### P RTELIN #### [facility] [address] [address] [address] Khadra Pascual Cgppi-4-Rbshfmfc 1.0 g/dL Normal 0.4-1.0 [facility] Comment on above: Performed By: #### P RTELIN #### [facility] [address] [address] [address] Khadra Pascual Beta Globulin 1.2 g/dL Normal 0.7-1.3 [facility] Comment on above: Performed By: #### P RTELIN #### [facility] [address] [place] [address] Dr. Khadra Pascual Gamma Globulin 1.2 g/dL Normal 0.4-1.8 [facility] Comment on above: Performed By: #### P RTELIN #### [facility] [address] [place] [address] Dr. Khadra Pascual Globulin (S) [Mass/Vol] 3.7 g/dL Normal 2.2-3.9 [facility] Comment on above: Performed By: #### P RTELIN #### [facility] [address] [place] [address] Dr. Khadra Pascual M-Gene Not Observed Normal Not Observed [facility] Comment on above: Performed By: #### P RTELIN #### [facility] [address] [address] [address] Khadra Pascual P E Interpretation, S Comment Normal [facility] Comment on above: Result Comment: The SPE pattern appears unremarkable. Evidence of monoclonal protein is not apparent. Performed By: #### P RTELIN #### [facility] [address] [place] [address] Dr. Khadra Pascual PDF . Normal [facility] Comment on above: Performed By: #### P RTELIN #### [facility] [address] [place] [address] Dr. Khadra Pascual Please note: Comment Normal [facility] Comment on above: Result Comment: Prot ein electrophoresis scan will follow via computer, mail, or sas programmer delivery. Performed By: #### P RTELIN #### [facility] [address] [place] [address] Dr. Khadra Pascual Protein [Mass/Vol] 7.3 g/dL Normal 6.0-8.5 [facility] [facility] Comment on above: Performed By: #### P RTELIN #### [facility] [address] [place] [address] Dr. Khadra Pascual REMY COMPREHENSIVE PROFILEon 02-15-2023 Anti-Centromere B Antibodies <0.2 Normal 0.0-0.9 [facility] Comment on above: Performed By: #### A NAPROF #### [facility] [address] [place] [address] Dr. Khadra Pascual Anti-DNA (DS) Ab Qn 3 IU/mL Normal 0-9 [facility] Comment on above: Result Comment: Nega tive <5 Equivocal 5 - 9 Positive >9 Performed By: #### A NAPROF #### [facility] [address] [place] [address] Dr. Khadra Pascual Anti-Magalis-1 <0.2 Normal 0.0-0.9 [facility] Comment on above: Performed By: #### A NAPROF #### [facility] [address] [place] [address] Dr. Khadra Pascual Antichromatin Antibodies <0.2 Normal 0.0-0.9 [facility] Comment on above: Performed By: #### A NAPROF #### [facility] [address] [place] [address] Dr. Khdara Pascual ANTIRIBOSOMAL P AB <0.2 Normal 0.0-0.9 [facility] Comment on above: Performed By: #### A NAPROF #### [facility] [address] [place] [address] Dr. Khadra Pascual Antiscleroderma-70 Antibodies <0.2 Normal 0.0-0.9 [facility] Comment on above: Performed By: #### A NAPROF #### [facility] [address] [id number] Gaviria Pascual COMMENT Comment Normal The [facility] Comment on above: Result Comment: Auto antibody Disease Association Condition Frequency Antinuclear Antibody, SLE, mixed connective Direct (REMY-D) tissue diseases dsDNA SLE 40 - 60% Chromatin Drug induced SLE 90% SLE 48 - 97% SSA (Ro) SLE 25 - 35% Sjogren's Syndrome 40 - 70% Lupus 100% SSB (La) SLE 10% Sjogren's Syndrome 30% Sm (anti-Jackson) SLE 15 - 30% HOME CARE NURSE Mixed Connective Tissue Disease 95% (U1 nRNP, SLE 30 - 50% anti-ribonucleoprotein) Polymyositis and/or Dermatomyositis 20% Scl-70 (antiDNA Scleroderma (diffuse) 20 - 35% topoisomerase) Crest 13% Magalis-1 Polymyositis and/or Dermatomyositis 20 - 40% Centromere B Scleroderma - Crest variant 80% Ribosomal P SLE 10 - 20% Performed By: #### A NAPROF #### [facility] [address] [address] [address] Khadra Pascual HOME CARE NURSE Antibodies <0.2 Normal 0.0-0.9 [facility] Comment on above: Performed By: #### A NAPROF #### [facility] [address] [address] [address] Khadra Pascual Sjogren's Anti-SS-A <0.2 Normal 0.0-0.9 [facility] Comment on above: Performed By: #### A NAPROF #### [facility] [address] [address] [address] Khadra Pascual Sjogren's Anti-SS-B <0.2 Normal 0.0-0.9 [facility] Comment on above: Performed By: #### A NAPROF #### [facility] [address] [place] [address] Dr. Khadra Pascual Jackson Antibodies <0.2 Normal 0.0-0.9 [facility] Comment on above: Performed By: #### A NAPROF #### [facility] [address] [place] [address] Dr. Khadra Pascual Jackson/HOME CARE NURSE Antibodies <0.2 Normal 0.0-0.9 [facility] Comment on above: Performed By: #### A NAPROF #### [facility] [address] [place] [address] Dr. Khadra Pascual CRPon 02-14-2023 CRP [Mass/Vol] mg/L Normal <=1.0 [facility] Comment on above: Performed By: #### T SH, T7, CRP, CMP #### [facility] [address] [place] [address] Dr. Khadra Pascual FREE THYROXINE INDEX T7on FTI 1.70 Normal 1.30-4.50 [facility] Comment on above: Performed By: #### T SH, T7, CRP, CMP #### [facility] [address] [place] [address] Dr. Khadra Psacual T3U 32.0 % Normal 30.0-39.0 [facility] Comment on above: Performed By: #### T SH, T7, CRP, CMP #### [facility] [address] [place] [address] Dr. Khadra Pascual T4 [Mass/Vol] 5.30 ug/dL Normal 4.80-13.90 [facility] Comment on above: Performed By: #### T SH, T7, CRP, CMP #### [facility] [address] [place] [address] Dr. Khadra Pascual GLYCOHEMOGLOBIN A1Con 2022 ADA RECOMMENDATION SEE BELOW Normal [facility] Comment on above: Result Comment: ADA RECOMMENDED LIMIT 4.0 - 6.0 ADA THERAPEUTIC TARGET < 7.0 ACTION SUGGESTED > 7.0 Performed By: #### A 1C ####[facility] [address] [place], [place] [address]AaPascale Pascual Glucose [Mass/Vol] 117 mg/dL Normal [facility] Comment on above: Performed By: #### A 1C ####[facility] [address] [place], [place] [address]XtPascale Pascual HbA1c (Bld) [Mass fraction] 5.7 % Normal 4.5-6.2 [facility] Comment on above: Performed By: #### A 1C ####[facility] [address] [address]DrPascale Pascual PROF 14(COMP METB)on 023 Albumin [Mass/Vol] 3.9 g/dL Normal 3.4-5.0 [facility] Comment on above: Performed By: #### T SH, T7, CRP, CMP #### [facility] [address] [address] [address] Khadra Pascual Albumin/Globulin [Mass ratio] 1.0 {ratio} Normal [facility] Comment on above: Performed By: #### T SH, T7, CRP, CMP #### [facility] [address] [address] [address] Khadra Pascual ALP [Catalytic activity/Vol] 176 U/L Critically high 46-116 The [facility] Comment on above: Performed By: #### T SH, T7, CRP, CMP #### [facility] [address] [address] [address] Khadra Pascual ALT [Catalytic activity/Vol] 23 U/L Normal 14-59 [facility] Comment on above: Performed By: #### T SH, T7, CRP, CMP #### [facility] [address] [address] [address] Khadra Pascual Anion gap [Moles/Vol] 10.5 mmol/L Normal [facility] Comment on above: Performed By: #### T SH, T7, CRP, CMP #### [facility] [address] [address] [address] Khadra Pascual AST [Catalytic activity/Vol] 17 U/L Normal 15-37 [facility] Comment on above: Performed By: #### T SH, T7, CRP, CMP #### [facility] [address] [address] [address] Khadra Pascual Bilirubin [Mass/Vol] 0.2 mg/dL Normal 0.2-1.0 [facility] Comment on above: Performed By: #### T SH, T7, CRP, CMP #### [facility] [address] [place] [address] Dr. Khadra Pascual Calcium [Mass/Vol] 9.6 mg/dL Normal 8.5-10.1 [facility] Comment on above: Performed By: #### T SH, T7, CRP, CMP #### [facility] [address] [place] [address] Dr. Khadra Pascual Chloride [Moles/Vol] 102 mmol/L Normal 98-107 [facility] Comment on above: Performed By: #### T SH, T7, CRP, CMP #### [facility] [address] [place] [address] Dr. Khadra Pascual CO2 [Moles/Vol] 28.5 mmol/L Normal 21.0-32.0 [facility] Comment on above: Performed By: #### T SH, T7, CRP, CMP #### [facility] [address] [place] [address] Dr. Khadra Pascual Creatinine [Mass/Vol] 0.70 mg/dL Normal 0.55-1.02 The [facility] Comment on above: Performed By: #### T SH, T7, CRP, CMP #### [facility] [address] [place] [address] Dr. Khadra Pascual EGFR-AF FINNISH >60 Normal >=60 [facility] Comment on above: Performed By: #### T SH, T7, CRP, CMP #### [facility] [address] [address] [address] Khadra Pascual EGFR-NON AF FINNISH >60 Normal >=60 The [facility] Comment on above: Performed By: #### T SH, T7, CRP, CMP #### [facility] [address] [place] [address] Dr. Khadra Pascual Globulin (S) [Mass/Vol] 4.0 g/dL Normal [facility] Comment on above: Performed By: #### T SH, T7, CRP, CMP #### [facility] [address] [place] [address] Dr. Khadra Pascual Glucose [Mass/Vol] 88 mg/dL Normal 74-106 [facility] Comment on above: Performed By: #### T SH, T7, CRP, CMP #### [facility] [address] [place] [address] Dr. Khadra Pascual Potassium [Moles/Vol] 4.0 mmol/L Normal 3.5-5.1 The [facility] Comment on above: Performed By: #### T SH, T7, CRP, CMP #### [facility] [address] [place] [address] Dr. Khadra Pascual Protein [Mass/Vol] 7.9 g/dL Normal 6.4-8.2 [facility] Comment on above: Performed By: #### T SH, T7, CRP, CMP #### [facility] [address] [place] [address] Dr. Khadra Pascual Sodium [Moles/Vol] 137 mmol/L Normal 136-145 [facility] Comment on above: Performed By: #### T SH, T7, CRP, CMP #### [facility] [address] [place] [address] Dr. Khadra Pascual Urea nitrogen [Mass/Vol] 8.0 mg/dL Normal 7.0-18.0 [facility] Comment on above: Performed By: #### T SH, T7, CRP, CMP #### [facility] [address] [place] [address] Dr. Khadra Pascual Urea nitrogen/Creatinine [Mass ratio] 11.4 mg/mg Normal [facility] Comment on above: Performed By: #### T SH, T7, CRP, CMP #### [facility] [address] [address] [address] Khadra Pascual SED RATE WESTERGRENon 2022 SED RATE 23 mm/hr Normal <=30 [facility] Comment on above: Performed By: #### S EDR ####[facility] [address] [address]Dr. Khadra Pascual TSHon 02-14-2023 TSH 0.826 uIU/mL Normal 0.358-3.740 [facility] Comment on above: Performed By: #### T SH, T7, CRP, CMP #### [facility] [address] [address] [address] Khadra Pascual VIT B12 AND FOLATEon 023 Cobalamin (Vitamin B12) [Mass/Vol] 291.0 pg/mL Normal 193.0-986.0 [facility] Comment on above: Performed By: #### B 12FOL #### [facility] [address] [address] [address] Khadra Pascual FOLATE 14.50 ng/mL Normal 8.60-58.90 [facility] Comment on above: Performed By: #### B 12FOL #### [facility] [address] [address] [address] LUNG CANCER SCREENINGon [...] ELSY MACHADO Date: 2022-12-08 09:32 Normal [facility] Ambulatory Visit Summaryon 1 Ambulatory Visit Summary LIVIA JACOBO :1960 Visit Date:09/13/2022 Ambulatory Visit Instructions Your Diagnosis Hypertensive urgency HTN (hypertension), benign Primary insomnia Anxiety and depression RLS (restless legs syndrome) BMI 32.0-32.9,adult Current smoker Screening mammogram for breast cancer Post-menopause Your Care Team Attending Physician - Dorie Luis MD Primary Care Physician - Dorie Luis MD This Is Your Medications List amlodipine (amLODIPine [...] PM EST With: Dorie Luis MD Where: [facility] Interpretation Code HTN (hypertension), benign [facility] Patient Educationon 09-13-20 22 Patient Education [...] ? Avoi (more content not included)... Normal [facility] GLUCOSE BLOODon 09-07-2022 Glucose [Mass/Vol] 103 mg/dL Normal 74-106 [facility] Comment on above: Performed By: #### G BLANCA, LIPID ####[facility] [address] [place], [place] [address]Kt. Khadra Pascual LIPID PROFILEon 09-07-2022 CHOL-HDL RATIO NORM SEE BELOW Normal [facility] Comment on above: Result Comment: 3.3 - 4.4 LOW RISK 4.4 - 7.1 AVERAGE RISK 7.1 - 11.0 MODERATE RISK >11.0 HIGH RISK Performed By: #### G BLANCA, LIPID ####[facility] [address] [place], [place] [address]Cx. Khadra Pascual Cholesterol [Mass/Vol] 163 mg/dL Normal <=200 [facility] Comment on above: Performed By: #### G BLANCA, LIPID ####[facility] [address] [id number]. Khadra Pascual Cholesterol in HDL [Mass/Vol] 50 mg/dL Normal 40-60 [facility] Comment on above: Performed By: #### G BLANCA, LIPID ####[facility] [address] [id number]. Khadra Pascual Cholesterol in LDL [Mass/Vol] 74.8 mg/dL Normal [facility] Comment on above: Performed By: #### G BLANCA, LIPID ####[facility] [address] [place], [place] [address]Nk. Khadra Pascual Cholesterol.total/Ch olesterol in HDL [Mass ratio] 3.3 {ratio} Normal [facility] Comment on above: Performed By: #### G BLANCA, LIPID ####[facility] [address] [id number]. Khadra Pascual HDL NORMAL > or = 60 mg/dl - LOW CARDIOVASCULAR RISK <40 mg/dl - HIGH CARDIOVASCULAR RISK Normal [facility] Comment on above: Performed By: #### G BLANCA, LIPID ####[facility] [address] [id number]. Khadra Pascual LDL CALC NORMAL SEE BELOW Normal [facility] Comment on above: Result Comment: <100 mg/dl OPTIMAL 100 - 129 mg/dl NEAR OR ABOVE OPTIMAL 130 - 159 mg/dl BORDERLINE HIGH 160 - 189 mg/dl HIGH >190 mg/dl VERY HIGH Performed By: #### G BLANCA, LIPID ####[facility] [address] [place], [place] [address]La. Khadra Pascual Triglyceride [Mass/Vol] 191 mg/dL Critically high <=150 [facility] Comment on above: Performed By: #### G BLANCA, LIPID ####[facility] [address] [place], [place] [address]Ce. Khadra Pascual VLDL CALC 38.2 mg/dL Normal [facility] Comment on above: Performed By: #### G BLANCA, LIPID ####[facility] [address] [place], [place] [address]Td. Khadra Pascual XR WRIST RT MIN 3 [...] PHILL WEEKS Date: 2022-05-19 14:05 Normal [facility] Vital Signs Date Time Vital Sign Value Performing Clinician Hugh brandon 01-07-2025 11:52-0500 Blood Pressure Location Lexis Moe [facility] 01-07-2025 11:52-0500 Diastolic blood pressure 92 mm[Hg] Lexis Moe [facility] 01-07-2025 11:52-0500 Heart rate 85 /min Lexis Moe [facility] 01-07-2025 11:52-0500 Respiratory rate 16 /min Lexis Akbaran [facility] 01-07-2025 11:52-0500 SaO2% (BldA) [Mass fraction] 93 % Lexis Akbaran [facility] 01-07-2025 11:52-0500 Systolic blood pressure 154 mm[Hg] Mohamed Abhi [facility] 11-26-2024 15:00-0500 Hourly Rounding Ronobir HOMA [facility] 11-26-2024 15:00-0500 Promise to Return Ronobir HOMA [facility] 11-26-2024 14:00-0500 Hourly Rounding Ronobir HOMA [facility] 11-26-2024 14:00-0500 Promise to Return Ronobir HOMA [facility] 11-26-2024 13:00-0500 Hourly Rounding Ronobir HOMA [facility] 11-26-2024 13:00-0500 Promise to Return Ronobir HOMA [facility] 11-26-2024 12:11-0500 Heart rate 86 /min Ronobir HOMA [facility] 11-26-2024 12:11-0500 Respiratory rate 20 /min Ronobir HOMA [facility] 11-26-2024 12:01-0500 Heart rate 84 /min Ronobir HOMA [facility] 11-26-2024 12:01-0500 Respiratory rate 20 /min Ronobir HOMA [facility] 11-26-2024 12:01-0500 SaO2% (BldA) [Mass fraction] 96 % Ronobir HOMA [facility] 11-26-2024 11:31-0500 Heart rate 83 /min Ronobir HOMA [facility] 11-26-2024 11:31-0500 SaO2% (BldA) [Mass fraction] 93 % Ronobir HOMA [facility] 11-26-2024 11:30-0500 Blood Pressure Location Ronobir HOMA [facility] 11-26-2024 11:30-0500 Diastolic blood pressure 79 mm[Hg] Ronobir HOMA [facility] 11-26-2024 11:30-0500 Mean blood pressure 98 mm[Hg] Ronobir HOMA [facility] 11-26-2024 11:30-0500 Systolic blood pressure 135 mm[Hg] Ronobir HOMA [facility] 11-26-2024 11:30-0500 Body temperature 98.42 [degF] Ronobir HOMA [facility] 11-26-2024 08:24-0500 SaO2% (BldA) [Mass fraction] 92 % Ronobir HOMA [facility] 11-26-2024 08:23-0500 Blood Pressure Location Ronobir HOMA [facility] 11-26-2024 08:23-0500 Diastolic blood pressure 90 mm[Hg] Ronobir HOMA [facility] 11-26-2024 08:23-0500 Mean blood pressure 116 mm[Hg] Ronobir HOMA [facility] 11-26-2024 08:23-0500 Systolic blood pressure 167 mm[Hg] Ronobir HOMA [facility] 11-26-2024 08:23-0500 Body temperature 97.34 [degF] Ronobir HOMA [facility] 11-26-2024 07:38-0500 Respiratory rate 20 /min Ronobir HOMA [facility] 11-26-2024 03:30-0500 Blood Pressure Location Ronobir HOMA [facility] 11-26-2024 03:30-0500 Body temperature 97.16 [degF] Ronobir HOMA [facility] 11-26-2024 03:30-0500 Diastolic blood pressure 76 mm[Hg] Ronobir HOMA [facility] 11-26-2024 03:30-0500 Mean blood pressure 96 mm[Hg] Ronobir HOMA [facility] 11-26-2024 03:30-0500 Systolic blood pressure 135 mm[Hg] Ronobir HOMA [facility] 11-25-2024 23:45-0500 Body temperature 97.52 [degF] Ronobir HOMA [facility] 11-25-2024 23:45-0500 Mean blood pressure 104 mm[Hg] Ronobir HOMA [facility] 11-25-2024 21:08-0500 Heart rate 74 /min Ronobir HOMA [facility] 11-25-2024 19:28-0500 Body temperature 97.52 [degF] Ronobir HOMA [facility] 11-25-2024 19:28-0500 Mean blood pressure 104 mm[Hg] Ronobir HOMA [facility] 11-25-2024 17:22-0500 Mean blood pressure 115 mm[Hg] Ronobir HOMA [facility] 11-24-2024 22:14-0500 Heart rate 86 /min Ronobir HOMA [facility] 11-24-2024 20:45-0500 Heart rate 78 /min Ronobir HOMA [facility] 11-24-2024 20:18-0500 Respiratory rate 16 /min Ronobir HOMA [facility] 11-24-2024 20:14-0500 Respiratory rate 18 /min Ronobir HOMA [facility] 11-24-2024 19:20-0500 Respiratory rate 18 /min Ronobir HOMA [facility] 11-13-2024 10:58-0500 Blood Pressure Location Amilcar Matthews [facility] 11-13-2024 10:58-0500 Diastolic blood pressure 66 mm[Hg] Amilcar Matthews [facility] 11-13-2024 10:58-0500 Heart rate 77 /min Amilcar Matthews [facility] 11-13-2024 10:58-0500 Respiratory rate 16 /min Amilcar Matthews [facility] 11-13-2024 10:58-0500 SaO2% (BldA) [Mass fraction] 92 % Amilcar Matthews [facility] 11-13-2024 10:58-0500 Systolic blood pressure 99 mm[Hg] Amilcar Matthews [facility] 10-29-2024 13:00-0500 Hourly Rounding Edmund Klein [facility] 10-29-2024 13:00-0500 Promise to Return Edmund Paster [facility] 10-29-2024 12:00-0500 Hourly Rounding Edmund Paster [facility] 10-29-2024 12:00-0500 Promise to Return Edmund Paster [facility] 10-29-2024 11:52-0500 Heart rate 82 /min Edmund Paster [facility] 10-29-2024 11:52-0500 Respiratory rate 18 /min Edmund Paster [facility] 10-29-2024 11:52-0500 SaO2% (BldA) [Mass fraction] 98 % Edmund Paster [facility] 10-29-2024 11:25-0500 Heart rate 80 /min Edmund Paster [facility] 10-29-2024 11:25-0500 Respiratory rate 18 /min Edmund Paster [facility] 10-29-2024 11:25-0500 SaO2% (BldA) [Mass fraction] 97 % Edmund Paster [facility] 10-29-2024 11:22-0500 Heart rate 76 /min Edmund Paster [facility] 10-29-2024 11:22-0500 SaO2% (BldA) [Mass fraction] 94 % Edmund Paster [facility] 10-29-2024 11:22-0500 Respiratory rate 18 /min Edmund Paster [facility] 10-29-2024 11:22-0500 Diastolic blood pressure 79 mm[Hg] Edmund Paster [facility] 10-29-2024 11:22-0500 Mean blood pressure 98 mm[Hg] Edmund Paster [facility] 10-29-2024 11:22-0500 Systolic blood pressure 137 mm[Hg] Edmund Paster [facility] 10-29-2024 11:22-0500 Body temperature 98.24 [degF] Edmund Paster [facility] 10-29-2024 11:01-0500 Hourly Rounding Edmund Paster [facility] 10-29-2024 11:01-0500 Promise to Return Edmund Paster [facility] 10-29-2024 11:00-0500 Diastolic blood pressure 102 mm[Hg] Edmund Paster [facility] 10-29-2024 11:00-0500 Systolic blood pressure 159 mm[Hg] Edmund Paster [facility] 10-29-2024 10:06-0500 Blood Pressure Location Edmund Paster [facility] 10-29-2024 10:06-0500 Body temperature 98.6 [degF] Edmund Paster [facility] 10-29-2024 10:06-0500 Diastolic blood pressure 83 mm[Hg] Edmund Paster [facility] 10-29-2024 10:06-0500 Heart rate 79 /min Edmund Paster [facility] 10-29-2024 10:06-0500 Systolic blood pressure 153 mm[Hg] Edmund Paster [facility] 10-29-2024 09:39-0500 Mean blood pressure 92 mm[Hg] Edmund Paster [facility] 10-29-2024 09:39-0500 Respiratory rate 14 /min Edmund Paster [facility] 10-29-2024 09:17-0500 Mean blood pressure 121 mm[Hg] Edmund Paster [facility] 10-29-2024 09:17-0500 Respiratory rate 15 /min Edmund Paster [facility] 10-29-2024 08:45-0500 Respiratory rate 17 /min Edmund Paster [facility] 10-29-2024 07:42-0500 Body temperature 98.24 [degF] Edmund Paster [facility] 10-29-2024 07:42-0500 Heart rate 83 /min Edmund Paster [facility] 10-10-2024 16:00-0500 Diastolic blood pressure 105 mm[Hg] Dioni Sami [facility] 10-10-2024 16:00-0500 Heart rate 66 /min Dioni Sami [facility] 10-10-2024 16:00-0500 Hourly Rounding Dioniedi Gallardo [facility] 10-10-2024 16:00-0500 Mean blood pressure 136 mm[Hg] Dioni Sami [facility] 10-10-2024 16:00-0500 SaO2% (BldA) [Mass fraction] 94 % Dioni Sami [facility] 10-10-2024 16:00-0500 Systolic blood pressure 199 mm[Hg] Dioni Sami [facility] 10-10-2024 15:00-0500 Diastolic blood pressure 91 mm[Hg] Dioni Sami [facility] 10-10-2024 15:00-0500 Hourly Rounding Dioni Sami [facility] 10-10-2024 15:00-0500 Mean blood pressure 123 mm[Hg] Dioni Sami [facility] 10-10-2024 15:00-0500 SaO2% (BldA) [Mass fraction] 93 % Dioni Gallardo [facility] 10-10-2024 15:00-0500 Systolic blood pressure 187 mm[Hg] Dioni Gallardo [facility] 10-10-2024 14:00-0500 Diastolic blood pressure 90 mm[Hg] Dioni Gallardo [facility] 10-10-2024 14:00-0500 Heart rate 63 /min Dioni Gallardo [facility] 10-10-2024 14:00-0500 Hourly Rounding Dioni Gallardo [facility] 10-10-2024 14:00-0500 Mean blood pressure 122 mm[Hg] Dioni Gallardo [facility] 10-10-2024 14:00-0500 SaO2% (BldA) [Mass fraction] 92 % Dioni Gallardo [facility] 10-10-2024 13:12-0500 Body temperature 98.06 [degF] Dioni Gallardo [facility] 10-10-2024 13:12-0500 Heart rate 73 /min Dioni Gallardo [facility] 10-10-2024 13:12-0500 Respiratory rate 20 /min Dioni Gallardo [facility] 10-03-2024 11:21-0500 Blood Pressure Location Amilcar Matthews [facility] 10-03-2024 11:21-0500 Diastolic blood pressure 100 mm[Hg] Amilcar Matthews [facility] 10-03-2024 11:21-0500 Heart rate 84 /min Amilcar Matthews [facility] 10-03-2024 11:21-0500 Respiratory rate 18 /min Amilcar Matthews [facility] 10-03-2024 11:21-0500 SaO2% (BldA) [Mass fraction] 90 % Amilcar Matthews [facility] 10-03-2024 11:21-0500 Systolic blood pressure 180 mm[Hg] Amilcar Matthews [facility] 08-13-2024 18:00-0400 Hourly Rounding [facility] 08-13-2024 18:00-0400 Promise to Return [facility] 08-13-2024 17:44-0400 Hourly Rounding [facility] 08-13-2024 17:44-0400 Promise to Return [facility] 08-13-2024 17:13-0400 Heart rate 70 /min [facility] 08-13-2024 17:13-0400 Respiratory rate 18 /min [facility] 08-13-2024 17:13-0400 SaO2% (BldA) [Mass fraction] 99 % [facility] 08-13-2024 17:06-0400 Blood Pressure Location [facility] 08-13-2024 17:06-0400 Body temperature 97.34 [degF] [facility] 08-13-2024 17:06-0400 Diastolic blood pressure 78 mm[Hg] [facility] 08-13-2024 17:06-0400 Heart rate 78 /min [facility] 08-13-2024 17:06-0400 SaO2% (BldA) [Mass fraction] 93 % [facility] 08-13-2024 17:06-0400 Systolic blood pressure 128 mm[Hg] [facility] 09-30-2024 17:05-0400 SaO2% (BldA) [Mass fraction] 93 % [facility] 08-13-2024 17:03-0400 Heart rate 75 /min [facility] 08-13-2024 17:03-0400 Respiratory rate 18 /min [facility] 08-13-2024 16:00-0400 Hourly Rounding [facility] 08-13-2024 16:00-0400 Promise to Return [facility] 08-13-2024 14:35-0400 Diastolic blood pressure 74 mm[Hg] [facility] 08-13-2024 14:35-0400 Heart rate 76 /min [facility] 08-13-2024 14:35-0400 Mean blood pressure 91 mm[Hg] [facility] 08-13-2024 14:35-0400 Respiratory rate 19 /min [facility] 08-13-2024 14:35-0400 Systolic blood pressure 126 mm[Hg] [facility] 08-13-2024 13:15-0400 Diastolic blood pressure 62 mm[Hg] [facility] 08-13-2024 13:15-0400 Mean blood pressure 79 mm[Hg] [facility] 08-13-2024 13:15-0400 Respiratory rate 22 /min [facility] 08-13-2024 13:15-0400 Systolic blood pressure 114 mm[Hg] [facility] 08-13-2024 12:13-0400 Mean blood pressure 83 mm[Hg] [facility] 08-13-2024 12:13-0400 Respiratory rate 24 /min [facility] 08-13-2024 08:51-0400 Body temperature 98.6 [degF] [facility] 08-13-2024 08:51-0400 Heart rate 82 /min [facility] 08-13-2024 08:51-0400 Respiratory rate 18 /min [facility] 07-04-2024 13:01-0400 Blood Pressure Location Amilcar Matthews [facility] 07-04-2024 13:01-0400 Diastolic blood pressure 86 mm[Hg] Amilcar Matthews [facility] 07-04-2024 13:01-0400 Heart rate 85 /min Amilcar Matthews [facility] 07-04-2024 13:01-0400 Respiratory rate 16 /min Amilcar Matthews [facility] 07-04-2024 13:01-0400 SaO2% (BldA) [Mass fraction] 93 % Amilcar Matthews [facility] 07-04-2024 13:01-0400 Systolic blood pressure 132 mm[Hg] Amilcar Matthews [facility] 05-30-2024 10:40-0400 Diastolic blood pressure 106 mm[Hg] Amilcar Matthews [facility] 05-30-2024 10:40-0400 Mean blood pressure 128 mm[Hg] Amilcar Matthews [facility] 05-30-2024 10:40-0400 Systolic blood pressure 172 mm[Hg] Amilcar Matthews [facility] 05-30-2024 10:30-0400 Blood Pressure Location Amilcar Matthews [facility] 05-30-2024 10:30-0400 Diastolic blood pressure 110 mm[Hg] Amilcar Matthews [facility] 05-30-2024 10:30-0400 Heart rate 81 /min Amilcar Matthews [facility] 05-30-2024 10:30-0400 Respiratory rate 20 /min Amilcar Matthews [facility] 05-30-2024 10:30-0400 SaO2% (BldA) [Mass fraction] 92 % Amilcar Matthews [facility] 05-30-2024 10:30-0400 Systolic blood pressure 180 mm[Hg] Amilcar Matthews [facility] 05-16-2024 12:44-0400 Hourly Rounding Mbanefo OJUKWU [facility] 05-16-2024 12:44-0400 Promise to Return Mbanefo OJUKWU [facility] 05-16-2024 11:44-0400 Hourly Rounding Mbanefo OJUKWU [facility] 05-16-2024 11:44-0400 Promise to Return Mbanefo OJUKWU [facility] 05-16-2024 11:00-0400 Body temperature 97.34 [degF] Mbanefo OJUKWU [facility] 05-16-2024 11:00-0400 Diastolic blood pressure 81 mm[Hg] Mbanefo OJUKWU [facility] 05-16-2024 11:00-0400 Heart rate 76 /min Mbanefo OJUKWU [facility] 05-16-2024 11:00-0400 SaO2% (BldA) [Mass fraction] 95 % Mbanefo OJUKWU [facility] 05-16-2024 11:00-0400 Systolic blood pressure 137 mm[Hg] Mbanefo OJUKWU [facility] 05-16-2024 10:44-0400 Hourly Rounding Mbanefo OJUKWU [facility] 05-16-2024 10:44-0400 Promise to Return Mbanefo OJUKWU [facility] 05-16-2024 08:24-0400 SaO2% (BldA) [Mass fraction] 93 % Mbanefo OJUKWU [facility] 05-16-2024 04:23-0400 Heart rate 83 /min Mbanefo OJUKWU [facility] 05-16-2024 04:23-0400 SaO2% (BldA) [Mass fraction] 92 % Mbanefo OJUKWU [facility] 05-16-2024 04:23-0400 Respiratory rate 18 /min Mbanefo OJUKWU [facility] 05-16-2024 04:22-0400 Body temperature 97.7 [degF] Mbanefo OJUKWU [facility] 05-16-2024 04:22-0400 Blood Pressure Location Mbanefo OJUKWU [facility] 05-16-2024 04:22-0400 BP/Pulse Patient Position Mbanefo OJUKWU [facility] 05-16-2024 04:22-0400 Diastolic blood pressure 71 mm[Hg] Mbanefo OJUKWU [facility] 05-16-2024 04:22-0400 Mean blood pressure 83 mm[Hg] Mbanefo OJUKWU [facility] 05-16-2024 04:22-0400 Systolic blood pressure 108 mm[Hg] Mbanefo OJUKWU [facility] 05-16-2024 00:50-0400 Blood Pressure Location Mbanefo OJUKWU [facility] 05-16-2024 00:50-0400 Body temperature 97.52 [degF] Mbanefo OJUKWU [facility] 05-16-2024 00:50-0400 Diastolic blood pressure 77 mm[Hg] Mbanefo OJUKWU [facility] 05-16-2024 00:50-0400 Heart rate 101 /min Mbanefo OJUKWU [facility] 05-16-2024 00:50-0400 Mean blood pressure 97 mm[Hg] Mbanefo OJUKWU [facility] 05-16-2024 00:50-0400 Respiratory rate 16 /min Mbanefo OJUKWU [facility] 05-16-2024 00:50-0400 Systolic blood pressure 136 mm[Hg] Mbanefo OJUKWU [facility] 05-15-2024 19:46-0400 Mean blood pressure 113 mm[Hg] Mbanefo OJUKWU [facility] 05-15-2024 19:46-0400 Body temperature 98.6 [degF] Mbanefo OJUKWU [facility] 05-15-2024 19:00-0400 Respiratory rate 18 /min Mbanefo OJUKWU [facility] 05-15-2024 17:00-0400 Heart rate 91 /min Mbanefo OJUKWU [facility] 05-15-2024 17:00-0400 Mean blood pressure 120 mm[Hg] Mbanefo OJUKWU [facility] 05-15-2024 16:14-0400 Body temperature 97.88 [degF] Mbanefo OJUKWU [facility] 05-15-2024 16:14-0400 Heart rate 78 /min Mbanefo OJUKWU [facility] 05-15-2024 15:46-0400 Mean blood pressure 128 mm[Hg] Mbanefo OJUKWU [facility] 05-15-2024 13:17-0400 Heart rate 78 /min Mbanefo OJUKWU [facility] 01-06-2024 13:26-0500 Diastolic blood pressure 82 mm[Hg] Tiffany Christofferson [facility] 01-06-2024 13:26-0500 Heart rate 82 /min Tiffany Christofferson [facility] 01-06-2024 13:26-0500 SaO2% (BldA) [Mass fraction] 92 % Tiffany Christofferson [facility] 01-06-2024 13:26-0500 Systolic blood pressure 142 mm[Hg] Tiffany Christofferson [facility] 12-01-2023 10:59-0500 Blood Pressure Location Tiffany Christofferson [facility] 12-01-2023 10:59-0500 Diastolic blood pressure 76 mm[Hg] Tiffany Christofferson [facility] 12-01-2023 10:59-0500 Heart rate 88 /min Tiffany Christofferson [facility] 12-01-2023 10:59-0500 SaO2% (BldA) [Mass fraction] 95 % Tiffany Jansen [facility] 12-01-2023 10:59-0500 Systolic blood pressure 120 mm[Hg] Tiffany Jansen [facility] 10-26-2023 11:15-0500 Body height 157.5 cm Bandar Castrejon MD Work Phone: [facility] 10-26-2023 11:15-0500 Body mass index (BMI) [Ratio] 29.15 kg/m2 Bandar Castrejon MD Work Phone: [facility] 10-26-2023 11:15-0500 Body weight 72.3 kg Bandar Castrejon MD Work Phone: [facility] 10-26-2023 11:15-0500 SaO2% (BldA) [Mass fraction] 99 % Bandar Castrejon MD Work Phone: [facility] 10-26-2023 10:56-0500 Body temperature 36 [degF] Bandar Castrejon MD Work Phone: [facility] 10-26-2023 10:56-0500 Diastolic blood pressure 73 mm[Hg] Bandar Castrejon MD Work Phone: [facility] 10-26-2023 10:56-0500 Heart rate 75 /min Bandar Castrejon MD Work Phone: [facility] 10-26-2023 10:56-0500 Respiratory rate 18 /min Bandar Castrejon MD Work Phone: [facility] 10-26-2023 10:56-0500 Systolic blood pressure 121 mm[Hg] Bandar Castrejon MD Work Phone: [facility] 09-07-2023 12:08-0400 Diastolic blood pressure 73 mm[Hg] Tiffany Jansen MD Work Phone: [facility] 09-07-2023 12:08-0400 Heart rate 85 /min Tiffany Jansen MD Work Phone: [facility] 09-07-2023 12:08-0400 Respiratory rate 18 /min Tiffany Jansen MD Work Phone: [facility] 09-07-2023 12:08-0400 SaO2% (BldA) [Mass fraction] 97 % Tiffany Jansen MD Work Phone: [facility] 09-07-2023 12:08-0400 Systolic blood pressure 150 mm[Hg] Tiffany Jansen MD Work Phone: [facility] 09-07-2023 08:13-0400 Body height 154.9 cm Tiffany Jansen MD Work Phone: [facility] 09-07-2023 08:13-0400 Body mass index (BMI) [Ratio] 29.95 kg/m2 Tiffany Jansen MD Work Phone: [facility] 09-07-2023 08:13-0400 Body temperature 97.5 [degF] Tiffany Jansen MD Work Phone: [facility] 09-07-2023 08:13-0400 Body weight 71.9 kg Tiffany Jansen MD Work Phone: [facility] 09-02-2023 13:33-0400 Hourly Rounding Ronobir HOMA [facility] 09-02-2023 13:33-0400 Promise to Return Ronobir HOMA [facility] 09-02-2023 12:40-0400 Heart rate 90 /min Ronobir HOMA [facility] 09-02-2023 12:40-0400 Respiratory rate 18 /min Ronobir HOMA [facility] 09-02-2023 12:40-0400 SaO2% (BldA) [Mass fraction] 93 % Ronobir HOMA [facility] 09-02-2023 12:27-0400 Heart rate 90 /min Ronobir HOMA [facility] 09-02-2023 12:21-0400 Hourly Rounding Ronobir HOMA [facility] 09-02-2023 12:21-0400 Promise to Return Ronobir HOMA [facility] 09-02-2023 11:24-0400 Heart rate 90 /min Ronobir HOMA [facility] 09-02-2023 11:24-0400 SaO2% (BldA) [Mass fraction] 91 % Ronobir HOMA [facility] 09-02-2023 11:24-0400 Body temperature 97.88 [degF] Ronobir HOMA [facility] 09-02-2023 11:24-0400 Diastolic blood pressure 69 mm[Hg] Ronobir HOMA [facility] 09-02-2023 11:24-0400 Mean blood pressure 80 mm[Hg] Ronobir HOMA [facility] 09-02-2023 11:24-0400 Systolic blood pressure 101 mm[Hg] Ronobir HOMA [facility] 09-02-2023 11:07-0400 Hourly Rounding Ronobir HOMA [facility] 09-02-2023 11:07-0400 Promise to Return Ronobir HOMA [facility] 09-02-2023 08:25-0400 Heart rate 78 /min Ronobir HOMA [facility] 09-02-2023 08:25-0400 Respiratory rate 18 /min Ronobir HOMA [facility] 09-02-2023 08:25-0400 SaO2% (BldA) [Mass fraction] 95 % Ronobir HOMA [facility] 09-02-2023 08:15-0400 Respiratory rate 18 /min Ronobir HOMA [facility] 09-02-2023 07:39-0400 Diastolic blood pressure 77 mm[Hg] Ronobir HOMA [facility] 09-02-2023 07:39-0400 Mean blood pressure 91 mm[Hg] Ronobir HOMA [facility] 09-02-2023 07:39-0400 Systolic blood pressure 121 mm[Hg] Ronobir HOMA [facility] 09-02-2023 07:37-0400 Body temperature 97.34 [degF] Ronobir HOMA [facility] 09-02-2023 04:00-0400 Blood Pressure Location Ronobir HOMA [facility] 09-02-2023 04:00-0400 Diastolic blood pressure 64 mm[Hg] Ronobir HOMA [facility] 09-02-2023 04:00-0400 Systolic blood pressure 105 mm[Hg] Ronobir HOMA [facility] 09-01-2023 21:57-0400 Blood Pressure Location Ronobir HOMA [facility] 09-01-2023 21:57-0400 Body temperature 97.52 [degF] Ronobir HOMA [facility] 09-01-2023 21:57-0400 Heart rate 82 /min Ronobir HOMA [facility] 09-01-2023 21:25-0400 Mean blood pressure 68 mm[Hg] Ronobir HOMA [facility] 09-01-2023 21:25-0400 Respiratory rate 20 /min Ronobir HOMA [facility] 09-01-2023 20:25-0400 Mean blood pressure 68 mm[Hg] Ronobir HOMA [facility] 09-01-2023 20:25-0400 Respiratory rate 17 /min Ronobir HOMA [facility] 09-01-2023 19:12-0400 Mean blood pressure 84 mm[Hg] Ronobir HOMA [facility] 09-01-2023 19:12-0400 Respiratory rate 16 /min Ronobir HOMA [facility] 09-01-2023 18:58-0400 Body temperature 98.24 [degF] Ronobir HOMA [facility] 09-01-2023 18:58-0400 Heart rate 95 /min Ronobir HOMA [facility] 09-01-2023 13:59-0400 Diastolic blood pressure 72 mm[Hg] Tiffany Jansen [facility] 09-01-2023 13:59-0400 Heart rate 89 /min Tiffany Jansen [facility] 09-01-2023 13:59-0400 SaO2% (BldA) [Mass fraction] 95 % Tiffany Jansen [facility] 09-01-2023 13:59-0400 Systolic blood pressure 118 mm[Hg] Tiffany Jansen [facility] 08-08-2023 16:00-0400 Diastolic blood pressure 95 mm[Hg] Lawrence Elise [facility] 08-08-2023 16:00-0400 Heart rate 87 /min Lawrence Sharmae [facility] 08-08-2023 16:00-0400 Mean blood pressure 115 mm[Hg] Lawrence Sharmae [facility] 08-08-2023 16:00-0400 Respiratory rate 15 /min Lawrence Sharmae [facility] 08-08-2023 16:00-0400 SaO2% (BldA) [Mass fraction] 96 % Lawrence Arik [facility] 08-08-2023 16:00-0400 Systolic blood pressure 154 mm[Hg] Lawrence Arik [facility] 08-08-2023 15:00-0400 Diastolic blood pressure 96 mm[Hg] Lawrence Sharmae [facility] 08-08-2023 15:00-0400 Heart rate 90 /min Lawrence Arik [facility] 08-08-2023 15:00-0400 Respiratory rate 13 /min Lawrence Arik [facility] 08-08-2023 15:00-0400 SaO2% (BldA) [Mass fraction] 95 % Lawrence Arik [facility] 08-08-2023 15:00-0400 Systolic blood pressure 152 mm[Hg] Lawrence Arik [facility] 08-08-2023 14:27-0400 Body temperature 98.42 [degF] Lawrence Elise [facility] 08-08-2023 14:27-0400 Diastolic blood pressure 86 mm[Hg] Lawrence Elise [facility] 08-08-2023 14:27-0400 Heart rate 95 /min Lawrence Elise [facility] 08-08-2023 14:27-0400 Respiratory rate 20 /min Lawrence Elise [facility] 08-08-2023 14:27-0400 SaO2% (BldA) [Mass fraction] 94 % Lawrence Elise [facility] 08-08-2023 14:27-0400 Systolic blood pressure 130 mm[Hg] Lawrence Elise [facility] 07-21-2023 14:13-0400 Diastolic blood pressure 78 mm[Hg] Tiffany Sheila [facility] 07-21-2023 14:13-0400 Heart rate 74 /min Tiffany Christofferson [facility] 07-21-2023 14:13-0400 SaO2% (BldA) [Mass fraction] 96 % Tiffany Christofferson [facility] 07-21-2023 14:13-0400 Systolic blood pressure 118 mm[Hg] Tiffany Christofferson [facility] 07-10-2023 10:24-0400 Hourly Rounding Bruno CRUZ [facility] 07-10-2023 10:24-0400 Promise to Return Bruno MEJIALIN [facility] 07-10-2023 09:00-0400 Hourly Rounding Bruno ANTHONY [facility] 07-10-2023 09:00-0400 Promise to Return Brunoserenity HANSONSLIN [facility] 07-10-2023 08:13-0400 SaO2% (BldA) [Mass fraction] 98 % Bruno ANTHONY [facility] 07-10-2023 07:07-0400 Hourly Rounding Bruno ANTHONY [facility] 07-10-2023 07:07-0400 Promise to Return Brunoserenity HANSONSLIN [facility] 07-10-2023 07:00-0400 Body temperature 98.24 [degF] Bruno ANTHONY [facility] 07-10-2023 07:00-0400 Diastolic blood pressure 73 mm[Hg] Bruno ANTHONY [facility] 07-10-2023 07:00-0400 Heart rate 91 /min Bruno ANTHONY [facility] 07-10-2023 07:00-0400 Mean blood pressure 85 mm[Hg] Bruno ANTHONY [facility] 07-10-2023 07:00-0400 Respiratory rate 16 /min Bruno ANTHONY [facility] 07-10-2023 07:00-0400 Systolic blood pressure 108 mm[Hg] Bruno ANTHONY [facility] 07-10-2023 04:00-0400 Body temperature 97.16 [degF] Bruno ANTHONY [facility] 07-10-2023 04:00-0400 Diastolic blood pressure 67 mm[Hg] Bruno ANTHONY [facility] 07-10-2023 04:00-0400 Heart rate 86 /min Bruno ANTHONY [facility] 07-10-2023 04:00-0400 Mean blood pressure 84 mm[Hg] Bruno ANTHONY [facility] 07-10-2023 04:00-0400 Respiratory rate 15 /min Bruno ANTHONY [facility] 07-10-2023 04:00-0400 SaO2% (BldA) [Mass fraction] 97 % Bruno ANTHONY [facility] 07-10-2023 04:00-0400 Systolic blood pressure 109 mm[Hg] Bruno ANTHONY [facility] 07-10-2023 03:30-0400 Diastolic blood pressure 55 mm[Hg] Bruno ANTHONY [facility] 07-10-2023 03:30-0400 Heart rate 84 /min Bruno ANTHONY [facility] 07-10-2023 03:30-0400 Mean blood pressure 69 mm[Hg] Bruno ANTHONY [facility] 07-10-2023 03:30-0400 Respiratory rate 17 /min Bruno ANTHONY [facility] 07-10-2023 03:30-0400 Systolic blood pressure 102 mm[Hg] Bruno ANTHONY [facility] 07-10-2023 00:00-0400 Body temperature 97.88 [degF] Bruno ANTHONY [facility] 07-09-2023 19:56-0400 Heart rate 91 /min Bruno ANTHONY [facility] 07-09-2023 19:56-0400 Respiratory rate 11 /min Bruno CRUZ [facility] 07-09-2023 19:33-0400 Heart rate 93 /min Brunoserenity MEJIALIN [facility] 07-09-2023 19:33-0400 Respiratory rate 30 /min Bruno MEJIALIN [facility] 06-18-2023 08:06-0400 Body height 154.94 cm MD Dorie Luis Work Phone: [facility] 06-18-2023 08:06-0400 Body weight 74.84 kg MD Dorie Luis Work Phone: [facility] 05-13-2023 09:20-0400 Body height 157.48 cm Jose Cruz Other [facility] [employer] Other 05-13-2023 09:20-0400 Body mass index (BMI) [Ratio] 31.82 kg/m2 Jose Cruz Other [facility] Other 05-13-2023 09:20-0400 Body weight 78.93 kg Jose Cruz Other [facility] Other 05-13-2023 09:20-0400 Diastolic blood pressure 82 mm[Hg] Jose Cruz Other [facility] Other 05-13-2023 09:20-0400 Systolic blood pressure 130 mm[Hg] Jose Cruz Other [facility] Other 04-14-2023 16:45-0400 Body height 157.48 cm Brodie Chong Other [facility] Other 04-14-2023 16:45-0400 Body mass index (BMI) [Ratio] 32.55 kg/m2 Brodie Chong Other [facility] Other 04-14-2023 16:45-0400 Body weight 80.74 kg Brodie Chong Other [facility] Other 04-14-2023 16:45-0400 Diastolic blood pressure 80 mm[Hg] Brodie Chong Other [facility] Other 04-14-2023 16:45-0400 Systolic blood pressure 140 mm[Hg] Brodie Chong Other [employer] Other 11-25-2022 15:53-0500 Blood Pressure Location Dorie Luis [facility] 11-25-2022 15:53-0500 Diastolic blood pressure 94 mm[Hg] Dorie Luis [facility] 11-25-2022 15:53-0500 Heart rate 97 /min Dorie Luis [facility] 11-25-2022 15:53-0500 SaO2% (BldA) [Mass fraction] 96 % Dorie Luis [facility] 11-25-2022 15:53-0500 Systolic blood pressure 134 mm[Hg] Dorie Luis [facility] 10-14-2022 15:41-0500 Blood Pressure Location Dorie Luis [facility] 10-14-2022 15:41-0500 Diastolic blood pressure 84 mm[Hg] Dorie Luis [facility] 10-14-2022 15:41-0500 Heart rate 86 /min Dorie Luis [facility] 10-14-2022 15:41-0500 SaO2% (BldA) [Mass fraction] 92 % Dorie Luis [facility] 10-14-2022 15:41-0500 Systolic blood pressure 118 mm[Hg] Dorie Luis [facility] Encounters Encounter Date Encounter Type Care Provider Facility Start: 01-07-2025 End: 01-07-2025 ambulatory [place]ie Luis [place] [place]: 01-07-2025 End: 01-07-2025 Patient encounter procedure Lexis Moe [facility] Start: 12-27-2024 End: 12-27-2024 ambulatory Dorie Luis Facility:[facility] [place] Start: 12-04-2024 End: 12-04-2024 ambulatory Dorie Luis Facility:[facility] [place] Start: 11-27-2024 End: 12-10-2024 ambulatory Dorie Lius Facility:[id number] Start: 11-24-2024 End: 11-26-2024 ambulatory DO Alec LUTHER [place] Start: 11-24-2024 Emergency department patient visit Dorie Fidencio [place] Start: 11-24-2024 End: 11-26-2024 Observation Alec LUTHER [facility] Start: 11-13-2024 End: 11-13-2024 Patient encounter procedure Amilcar Matthews [facility] Start: 11-13-2024 End: 11-13-2024 ambulatory Philip Hernández Facility:[facility] Start: 10-31-2024 End: 10-31-2024 ambulatory Dorie Luis Facility:[facility] Start: 10-30-2024 End: 11-12-2024 ambulatory Droie Luis Facility:[id number] Start: 10-29-2024 End: 10-29-2024 ambulatory Edmund Klein [place] Start: 10-29-2024 Emergency department patient visit Lawrence Elise Facility[place] Start: 10-29-2024 End: 10-29-2024 Observation Edmund Klein [facility] Start: 10-10-2024 End: 10-10-2024 Emergency department patient visit Dioni Gallardo [facility] Start: 10-08-2024 End: 10-08-2024 ambulatory Dorie Luis Facility:[facility] Start: 10-03-2024 End: 10-03-2024 ambulatory XXXX NONE [place] Start: 10-03-2024 End: 10-03-2024 Patient encounter procedure Amilcar Matthews [facility] Start: 10-01-2024 End: 10-30-2024 ambulatory Dorie Luis Facility:[id number] Start: 08-14-2024 End: 08-27-2024 ambulatory Dorie Lius Facility:[id number] Start: 08-13-2024 End: 08-13-2024 ambulatory Eligio Lopez [place] Start: 08-13-2024 Emergency department patient visit Inodeandre Thornton [place] Start: 08-13-2024 End: 08-13-2024 Observation Eligio Lopez [facility] Start: 07-04-2024 End: 07-04-2024 ambulatory XXXX NONE [place] Start: 07-04-2024 End: 07-04-2024 Patient encounter procedure Amilcar Matthews [facility] Start: 06-26-2024 ambulatory Dorie Luis Facility :[facility] [place] Start: 06-12-2024 End: 06-21-2024 Pre-admission assessment Dorie Luis [facility] Start: 06-12-2024 End: 06-12-2024 ambulatory Dorie Luis Facility:[facility] Start: 05-30-2024 End: 05-30-2024 ambulatory LEATHA Matthews [place] Start: 05-30-2024 End: 05-30-2024 Patient encounter procedure Amilcar Matthews [facility] Start: 05-29-2024 End: 05-29-2024 ambulatory [facility] Start: 05-28-2024 End: 05-28-2024 ambulatory Dorie Luis Facility:[facility] Start: 05-18-2024 End: 06-18-2024 ambulatory Dorie Luis Facility:[id number] Start: 05-15-2024 End: 05-16-2024 ambulatory Mbanefo OTIMKWU [place] Start: 05-15-2024 Emergency department patient visit Dorie Luis Facility[place] Start: 05-15-2024 End: 05-16-2024 Observation Mbcandiceamy JUDSONWU [facility] Start: 01-06-2024 End: 01-06-2024 ambulatory Tiffany Jansen [place] Start: 01-06-2024 End: 01-06-2024 Patient encounter procedure Tiffany Jansen [facility] Start: 12-01-2023 End: 12-01-2023 ambulatory Tiffany Jansen [place] Start: 12-01-2023 End: 12-01-2023 Patient encounter procedure Tiffany Jansen [facility] Start: 11-10-2023 ambulatory Tiffany Jansen [place] Start: 10-31-2023 End: 10-31-2023 ambulatory Dorie Luis Facility:[facility] [place] Start: 10-26-2023 End: 10-26-2023 ambulatory [facility] Start: 10-26-2023 End: 10-26-2023 Subsequent hospital visit by physician Bandar Castrejon MD Work Phone: [facility] Comment on above: Acute ST elevation m yocardial infarction (STEMI) (CMS/HCC) (Primary Dx); 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 (CMS/HCC) Start: 10-25-2023 End: 10-25-2023 ambulatory Tiffany Jansen [place] Start: 10-25-2023 End: 10-25-2023 Patient encounter procedure Tiffany Jansen [facility] Start: 10-24-2023 End: 10-25-2023 ambulatory [facility] Start: 10-24-2023 End: 10-24-2023 Subsequent hospital visit by physician Outside Study [facility] Jean Paul Comment on above: Arrived Start: 10-13-2023 End: 10-13-2023 ambulatory Tiffany Jansen [place] Start: 10-11-2023 End: 10-11-2023 ambulatory [facility] Start: 10-11-2023 End: 10-11-2023 Office outpatient new 60 minutes Bandar Castrejon MD Work Phone: [facility] Comment on above: HTN (hypertension), benign (Primary Dx); 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 (CMS/HCC) Start: 09-29-2023 End: 09-29-2023 Lab Drop off Dorie Luis [facility] Start: 09-29-2023 End: 09-29-2023 ambulatory Dorie Jean Baptiste Fidencio [place] Start: 09-13-2023 End: 09-13-2023 ambulatory Dorie Jean Baptiste Fidencio Facility:[facility] [place] Start: 09-07-2023 End: 09-07-2023 ambulatory TIFFANY JANSEN [facility] Start: 09-07-2023 End: 09-07-2023 Subsequent hospital visit by physician Tiffany Jansen MD Work Phone: [facility] Comment on above: CAD (coronary artery disease) (Primary Dx); Coronary artery disease; Angina pectoris, unspecified ([facility]/HCC) Start: 09-05-2023 End: 10-03-2023 ambulatory Dorie Ita Fidencio Facility:[id number] Start: 09-01-2023 End: 09-02-2023 ambulatory Rosa Maria Frausto [place] Start: 09-01-2023 End: 09-02-2023 Observation Alec LUTHER [facility] Start: 09-01-2023 End: 09-01-2023 ambulatory Tiffany Jansen [place] Start: 09-01-2023 End: 09-01-2023 Patient encounter procedure Tiffany Jansen [facility] Start: 08-11-2023 End: 08-11-2023 ambulatory Dorie Luis Facility:[facility] [place] Start: 08-08-2023 End: 08-08-2023 Emergency department patient visit Lawrence Arik [facility] Start: 07-26-2023 End: 07-26-2023 ambulatory Jose Cruz Other [facility] Other Start: 07-26-2023 Telephone encounter Jose Cruz [facility] Start: 07-21-2023 End: 07-21-2023 ambulatory Tiffany Jansen [place] Start: 07-21-2023 End: 07-21-2023 Patient encounter procedure Tiffany Jansen [facility] Start: 07-13-2023 End: 07-13-2023 ambulatory Dorie Luis Facility:[facility] [place] Start: 07-11-2023 End: 07-27-2023 ambulatory Dorie Luis Facility:[id number] Start: 07-09-2023 End: 07-10-2023 Evaluation and management of inpatient Bruno CRUZ [facility] Start: 06-18-2023 End: 06-18-2023 ambulatory MD Dorie Luis Work Phone: [facility] Work Phone: Start: 06-18-2023 End: 06-18-2023 Patient encounter procedure MD Dorie Luis Work Phone: [facility] [place] Work Phone: Start: 06-17-2023 End: 06-17-2023 ambulatory Sindhu Ennis Other [facility] Other Start: 06-17-2023 Telephone encounter Sindhu Ennis [facility] Start: 05-13-2023 End: 05-13-2023 ambulatory Jose Cruz Other [facility] Other Start: 05-13-2023 Office outpatient visit 15 minutes Jose Cruz [facility] Start: 05-12-2023 (PROC) PROCEDURE Brodie Gale [facility] Start: 05-12-2023 End: 05-12-2023 ambulatory Brodie Chong Other [facility] [employer] Other Start: 04-14-2023 Office outpatient visit 25 minutes Brodie Chong [facility] Start: 04-14-2023 End: 04-14-2023 ambulatory MD Dorie Luis Work Phone: [facility] Work Phone: Start: 04-14-2023 End: 04-14-2023 Patient encounter procedure MD Dorie Luis Work Phone: [facility] Work Phone: Start: 04-07-2023 Registered Recurring MD Dorie Luis Work Phone: [facility] Start: 03-11-2023 ambulatory DORIE LUIS Facilit y:[facility] Start: 02-14-2023 End: 02-15-2023 ambulatory DORIE LUIS Facility:[facility] Start: 02-08-2023 End: 02-08-2023 ambulatory MD Dorie Luis Work Phone: [facility] Work Phone: Start: 02-08-2023 End: 02-08-2023 Patient encounter procedure MD Dorie Luis Work Phone: [facility] [address] Work Phone: Start: 12-07-2022 End: 12-08-2022 ambulatory DORIE LUIS Facility:[facility] Start: 11-25-2022 End: 11-25-2022 Patient encounter procedure Dorie Luis [facility] Start: 11-19-2022 End: 11-19-2022 Patient encounter procedure Dorie Luis [facility] Start: 10-14-2022 End: 10-14-2022 Patient encounter procedure Dorie Luis [facility] Start: 09-27-2022 ambulatory Dorie Luis Facility :[facility] Start: 09-27-2022 End: 09-27-2022 Patient encounter procedure Dorie EPascale Fidencio [facility] [place] Start: 09-13-2022 End: 09-14-2022 ambulatory Dorie Jean Baptiste Fidencio Facility:[facility] Start: 09-07-2022 End: 09-08-2022 ambulatory IRENA SANDHU Facility: Start: 08-30-2022 ambulatory Dorie Luis Facility: [facility] [place] Start: 05-19-2022 End: 05-19-[address] RENA STOVALL . Facility: Procedures Date Procedure Procedure Detail Performing Clinician Start: 10-26-2023 ECG 12-LEAD BANDAR URIBE Start: 10-26-2023 DISCHARGE PATIENT BANDAR CASTREJON Start: 10-26-2023 ACTIVATED CLOTTING T JUAN LOW [...] Start: 09-07-2023 XR CHEST 2 VIEWS TIFFANY NUNEZ Start: 09-07-2023 Cardiac catheterizat ion study Tiffany [...] Start: 07-09-2023 Percutaneous coronar y intervention Lawrence Elise Start: 06-18-2023 MRI of lumbar spine with [...] xray MD Dorie Luis Work Phone: Start: 03-28-2023 MRI of head MD Dorie Luis Work [...] - Tdap) DTaP/Tdap/Td Vaccines (2 - Tdap) [facility] Start: 12-09-2025 Pneumococcal Vaccine : 65+ Years (3 - PPSV23 or PCV20) Pneumococcal Vaccine: 65+ Years (3 - PPSV23 or PCV20) [facility] Start: 12-09-2025 Pneumococcal Vaccine : Pediatrics (0 to 5 Years) and At-Risk Patients (6 to 64 Years) (3 - PPSV23 or PCV20) Pneumococcal Vaccine: Pediatrics (0 to 5 Years) and At-Risk Patients (6 to 64 Years) (3 - PPSV23 or PCV20) [facility] Start: 06-18-2025 ambulatory Ambulatory Facility:[facility] Start: 01-24-2025 ambulatory Ambulatory Facility:[facility] Start: 10-26-2023 End: 10-26-2023 Admission to same day surgery center 10/26/2023 1:00 PM EST - 10/26/2023 4:00 PM EST Surgery [facility] [address] [place] [address] Bandar Castrejon MD [address] [facility] [address] [place], [place] [id number] PCI MYNOR Stent- PCI ABSTRACT SEARCHER RCA ([id number]) [98417 (CPT )] [facility] Comment on above: PCI MYNOR Stent- PCI C TO RCA ([id number]) [79143 (CPT )] Start: 10-26-2023 Subsequent hospital visit by physician 10/26/2023 1:00 PM EST Hospital Encounter [facility] [address] [place] [address] Bandar Castrejon MD [address] [facility] [address] [place], [place] [id number] 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 (CMS/HCC) [facility] Comment on above: Coronary artery dise ase involving aniak coronary artery of aniak heart with refractory angina pectoris (CMS/HCC) Start: 07-15-2023 Influenza vaccination Influenza Vacc ine (#1) [facility] Start: 2009 Screening for malign ant neoplasm of lung Lung Cancer Screening [facility] Start: 2009 Zoster Vaccines (1 o f 2) Zoster Vaccines (1 of 2) [facility] Start: 1999 Screening for malign ant neoplasm of breast Mammogram [facility] Start: 1980 Screening for malign ant neoplasm of cervix [facility] Start: 1977 Diabetes mellitus screening Diabetes Screening [facility] Start: 1977 Hepatitis C screening Hepatitis C [facility] Start: 1960 MMR Vaccines (1 of 1 - Standard series) MMR Vaccines (1 of 1 - Standard series) [facility] Start: 04-17-1960 COVID-19 Vaccine (#1) COVID-19 Vacci ne (#1) [facility] Start: 1959 HIV screening HIV Screening [facility] Start: 1959 Lipid panel Lipid Panel [facility] Start: 1959 Medicare Annual Wellness Visit Medicare Annual Wellness Visit (AWV) [facility] Start: 1959 Screening for malign ant neoplasm of colon [facility] End: 09-07-2023 ECG 12 Lead [facility] Service Area Work Phone: Comment on above: Once for 1 Occurrenc es starting 09/07/2023 until 09/07/2023 ECG 12 Lead ECG 12 Lead ECG Routine 10/26/2023 11:16 AM EST [facility] Service Area Work Phone: ECG 12 Lead ECG 12 Lead ECG Routine 10/26/2023 3:22 PM EST [facility] Work Phone: End: 09-07-2023 Glucose [Mass/volume] in Serum or Plasma POCT Glucose Point of Care Testing - Docked Device Routine Once (Lab) for 1 Occurrences starting 09/07/2023 until 09/07/2023 [facility] Work Phone: Comment on above: Once (Lab) for 1 Occ urrences starting 09/07/2023 until 09/07/2023 End: 09-07-2023 XR Chest 2 Views [facility] Work Phone: Comment on above: Once for 1 Occurrenc es starting 09/07/2023 until 09/07/2023 [facility] Immunizations Immunization Date Immunization Notes Care Provider Edna martino 09-29-2023 influenza, injectable, quadrivalent, preservative free Dorie Luis [facility] 10-14-2022 influenza, injectable, quadrivalent, preservative free Dorie Luis [facility] 10-14-2022 influenza virus vaccine, unspecified formulation Tiffany Jansen MD Work Phone: [facility] Work Phone: 09-15-2021 influenza virus vaccine, unspecified formulation Bruno CRUZ [facility] 12-09-2020 pneumococcal polysaccharide vaccine, 23 valent Dorie Luis [facility] 09-09-2020 influenza virus vaccine, unspecified formulation Bruno CRUZ [facility] 07-15-2014 pneumococcal conjugate vaccine, 13 valent Dorie Luis [facility] NEGATED: Highlighted row has not occurred!09-13-2022 influenza virus vaccine, unspecified formulation Dorie Luis [facility] Payers Date Payer Category Payer Self-pay [id number] 2019 Private Health Insurance UNITED [employer] DUAL COMPLETE [employer] DUAL COMPLETE [id number] 2019-Present [address] [address] [place] [address] [id number] 2017 Medicaid MEDICAID MEDICAI D [id number] 2017-Present [address] [place] [address] [id number] 2017 Private Health Insurance [id number] 1959 Medicaid [id number] 1959 Private Health Insurance [id number] 1959 Unknown [id number] 2.16.840.1.639433.3.579.2. 727 1959 Unknown [id number] 2.16.840.1.218755.3.579.2. 727 1959 Unknown [id number] 2.16.840.1.458547.3.579.2. 593 1959 Unknown [id number] 2.16.840.1.335733.3.579.2. 593 1959 Unknown [id number] 2.16.840.1.155990.3.579.2. 593 1959 Unknown [id number] 2.16.840.1.735587.3.579.2. 593 1959 Unknown [id number] 2.16.840.1.768737.3.579.2. 593 1959 Unknown [id number] 2.16.840.1.047182.3.579.2. 1244 1959 Unknown [id number] 2.16.840.1.873171.3.579.2. 1245 1959 Unknown [id number] 2.16.840.1.485762.3.579.2. 1247 1959 Unknown [id number] 2.16.840.1.897887.3.579.2. 72 1959 Unknown [id number] 2.16.840.1.810271.3.579.2. 72 1959 Unknown [id number] 2.16.840.1.112978.3.579.2. 72 1959 Unknown [id number] 2.16.840.1.371223.3.579.2. 72 1959 Unknown [id number] 2.16.840.1.797286.3.579.2. 72 1959 Unknown [id number] 2.16.840.1.368109.3.579.2. 72 1959 Unknown [id number] 2.16.840.1.347141.3.579.2. 72 1959 Unknown [id number] 2.16.840.1.948442.3.579.2. 72 1959 Unknown [id number] 2.16.840.1.285064.3.579.2. 72 1959 Unknown [id number] 2.16.840.1.318779.3.579.2. 72 1959 Unknown [id number] 2.16.840.1.645798.3.579.2. 72 1959 Unknown [id number] 2.16.840.1.880584.3.579.2. 727 1959 Unknown [id number] 2.16.840.1.642487.3.579.2. 72 1959 Unknown [id number] 2.16.840.1.732236.3.579.2. 72 1959 Unknown [id number] 2.16.840.1.467592.3.579.2. 72 1959 Unknown [id number] 2.16.840.1.210070.3.579.2. 72 1959 Unknown [id number] 2.16.840.1.585349.3.579.2. 1959 Unknown [id number] 2.16.840.1.128356.3.579.2 1959 Unknown [id number] 2.16.840.1.378019.3.579.2 1959 Unknown [id number] 2.16.840.1.044979.3.579.2 1959 Unknown [id number] 2.16.840.1.701215.3.579.2. 6 1959 Unknown [id number] 2.16.840.1.463948.3.579.2. 1246 1959 Unknown [id number] 2.16.840.1.775938.3.579.2 1959 Unknown [id number] 2.16.840.1.934270.3.579.2. 1959 Unknown [id number] 2.16.840.1.262564.3.579.2 1959 Unknown [id number] 2.16.840.1.975719.3.579.2. 72 1959 Unknown [id number] 2.16.840.1.115022.3.579.2. 7 1959 Unknown [id number] 2.16.840.1.631331.3.579.2 1959 Unknown [id number] 2.16.840.1.482559.3.579.2. 1959 Unknown [id number] 2.16.840.1.914473.3.579.2 1959 Unknown [id number] 2.16.840.1.913455.3.579.2 1959 Unknown [id number] 2.16.840.1.736277.3.579.2 1959 Unknown [id number] 2.16.840.1.221700.3.579.2 1959 Unknown [id number] 2.16.840.1.032312.3.579.2 1959 Unknown [id number] 2.16.840.1.751861.3.579.2 1959 Unknown [id number] 2.16.840.1.856036.3.579.2 1959 Unknown [id number] 2.16.840.1.464093.3.579.2 1959 Unknown [id number] 2.16.840.1.330563.3.579.2 1959 Unknown [id number] 2.16.840.1.581083.3.579.2 1959 Unknown [id number] 2.16.840.1.727112.3.579.2 1959 Unknown [id number] 2.16.840.1.468611.3.579.2. 1959 Unknown [id number] 2.16.840.1.840004.3.579.21959 Unknown [id number] 2.16.840.1.330524.3.579.2. 727 1959 Unknown [id number] 2.16.840.1.088921.3.579.2. 727 1959 Unknown [id number] 2.16.840.1.965872.3.579.2. 727 1959 Unknown [id number] 2.16.840.1.762149.3.579.2. 727 1959 Unknown [id number] 2.16.840.1.068236.3.579.2. 727 1959 Unknown [id number] 2.16.840.1.858557.3.579.2. 727 1959 Unknown [id number] 2.16.840.1.464887.3.579.2. 727 1959 Unknown [id number] 2.16.840.1.291214.3.579.2. 727 1959 Unknown [id number] 2.16.840.1.820527.3.579.2. 72 Unknown [id number] 2.16.840.1.176806.3.579.2. 531 Social History Date Type Detail Facility Start: 09-13-2022 End: 01-07-2025 Tobacco smoking status Heavy tobacco smoker (finding) [facility] Comment on above: 1/2 pack or more a d ay. Tobacco smoking status Never [facility] Comment on above: 1/2 pack or more a d ay. Start: 09-07-2023 End: 10-26-2023 Sex Assigned At Female [facility] Start: 1960 Sex Assigned At Female [facility] Start: 09-07-2023 Tobacco smoking stat us TXIS Smokes tobacco daily [facility] Work Phone: History of tobacco use Cigarette Smoker U [facility] Work Phone: Start: 09-07-2023 End: 10-26-2023 Cigarettes smoked current (pack per day) - Reported 0.5 [facility] Work Phone: Start: 09-07-2023 End: 10-26-2023 Alcohol intake Ex-drinker (finding) [facility] Work Phone: Start: 1960 Sex Assigned At Not on file [facility] Work Phone: Start: 08-28-2023 End: 10-26-2023 Exposure to SARS-CoV-2 (event) Not sure [facility] Work Phone: Medical Equipment Procedure Code Equipment Code Equipment Origin al Text Equipment Identifier Dates Stent, Synergy X d, Mr Us, 3.50 X 38mm - [id number] Start: 10-26-2023 Functional Status Date Assessment Result Facility 01-07-2025 Functional Status N/A [facility] 11-24-2024 Functional Status N/A [facility] 11-24-2024 Functional Status [facility] 11-13-2024 Functional Status N/A [facility] 10-29-2024 Functional Status N/A [facility] 10-29-2024 Functional Status [facility] 10-10-2024 Functional Status N/A [facility] 10-03-2024 Functional Status N/A [facility] 08-13-2024 Functional Status No [facility] 08-13-2024 Functional Status [facility] 07-04-2024 Functional Status N/A [facility] 05-30-2024 Functional Status No [facility] 05-15-2024 Functional Status N/A [facility] 05-15-2024 Functional Status [facility] 01-06-2024 Functional Status N/A [facility] 12-01-2023 Functional Status No [facility] 09-01-2023 Functional Status No [facility] 09-01-2023 Functional Status [facility] 09-01-2023 Functional Status No [facility] 08-08-2023 Functional Status N/A [facility] 07-21-2023 Functional Status No [facility] 07-09-2023 Functional Status No [facility] 07-09-2023 Functional Status [facility] 11-25-2022 Functional Status N/A [facility] 10-14-2022 Functional Status N/A [facility] Clinical Notes 09-13-2022 to 12-10-2024 Note Date & Type Note Facility 12-10-2024 Note Discharge Summary Admission and Discharge Information Admitting Physician - Alec LUTHER DO Consulting Physician - Elsy López MD Admitting Diagnoses: Discharge Order Date 11/26/24 Discharge Diagnoses 1. Leg weakness, bilateral, 11/24/2024 2. Fall, 11/24/2024 3. Forehead abrasion, 11/24/2024 4. Hand laceration, 11/24/2024 5. HTN (hypertension), benign, 11/24/2024 6. Anxiety and depression, 11/24/2024 7. HLD (hyperlipidemia), 11/24/2024 8. RLS (restless legs syndrome), 11/24/2024 9. CAD (coronary artery disease), 11/24/2024 10. PVD (peripheral vascular disease), 11/24/2024 11. On deep vein thrombosis (DVT) prophylaxis, 11/24/2024 Fall, 11/24/2024 Scalp laceration, 11/24/2024 Shortness of breath, 11/24/2024 Procedure History PCI - Percutaneous coronary intervention (07/09/2023), Angioplasty, Gallbladder, Hysterectomy. Hospital Course This is a 64-year-old female patient with a history of anxiety and depression, CAD s/p STEMI, COPD, RLS, polyneuropathy, and chronic back pain; who was admitted on 11/24/2024 in observation for bilateral leg weakness and falls. The patient had a forehead abrasion and laceration that were subsequent to her falls, but no bony abnormalities were noted on CXR or CT chest abdomen or pelvis and imaging obtained during the trauma workup in the ED on presentation. She was seen in consult by neurology who suspected drop attacks due to her longstanding history of lower extremity weakness and falls. Seizures were not clinically suspected and a routine EEG was unremarkable. Due to her known history of lumbar spondylosis and chronic radicular symptoms, an MRI of the lumbar spine was obtained to assess for further etiology of her weakness and falls. The MRI revealed L1-L2 moderate canal narrowing and moderate to severe left and moderate right foraminal narrowing, L2-3 with moderate canal narrowing and moderate bilateral foraminal narrowing, and L3-4 broad-based disc bulge, facet degenerative changes, moderate to severe canal narrowing with mild to moderate bilateral foraminal narrowing. Although likely the cause of her falls, and absence of saddle anesthesia was not considered to need emergent intervention by neurosurgery. The patient's neuroleptic medications including olanzapine and quetiapine were also noted as possible contributory factors to her falls per neurology. At the time of discharge the patient denied any headache dizziness shortness of breath or chest pain and was requesting discharge. She was cleared by neurology for discharge as well. Physical therapy evaluate the patient and is recommending a front wheel walker be used at all times for safety with ambulation. Follow-up with neurosurgery was recommended for multilevel L-spine stenosis. She is being discharged home in stable condition and should follow-up with her PCP in 5 to 7 days, with neurology in 1 to 2 weeks, and with Dr. Sepulveda, neurosurgeon, in 2 to 4 weeks. - PT Recommend using FWW at all times for safety Physical Exam General: alert, no acute distress Skin: warm, dry Head: no trauma, normocephalic Neck: Trachea midline, no adenopathy, no tenderness Eye: normal conjunctiva, sclera clear ENMT: oral mucosa moist Cardiovascular: regular rhythm, normal rate, normal peripheral perfusion Respiratory: Lungs expiratory wheezes-LALI, respirations non labored Chest wall: no deformity. [...] normal judgement, normal psychiatric thoughts. Tests Performed CT Abdomen/Pelvis w/ Contrast CT C-Spine w/o Contrast CT Chest w/ Contrast CT Head or Brain w/o Contrast Lumbar Spine MRI w/ + w/o Contrast XR Shoulder Complete Right Discharge Plan Patient Discharge Condition Stable Discharge Disposition Discharge To, Anticipated II - Home with responsible caregiver Discharged to - Home independently Transported by, Anticipated - Family Discharge Diet Discharge Diet(s): Regular (11/26/24 12:25:00) Discharge Medication List Prescriptions atorvastatin 80 mg Tab, 80 mg= 1 tab(s), Oral, Daily, 5 refills carvedilol 12.5 mg Tab, 12.5 mg= 1 tab(s), Oral, BID, 2 refills Handicap Placard, 5 years., See Instructions isosorbide mononitrate 30 mg ER Tab, 30 mg= 1 tab(s), Oral, BID, 6 refills losartan 100 mg Tab, 100 mg= 1 tab(s), Oral, Daily, 5 refills nitroglycerin 0.4 mg sublingual Tab, 0.4 mg= 1 tab(s), SubLingual, q5min, PRN, 6 refills prasugrel 10 mg Tab, 10 mg= 1 tab(s), Oral, Daily, 5 refills Ranexa 500 mg Tab-ER, 1000 mg= 2 tab(s), Oral, BID, 5 refills ropinirole 1 mg Tab, 1 mg= 1 tab(s), Oral, Daily, 1 refills Home acetaminophen 325 m (more content not included)... [facility] Comment on above: Result Comment: Elec tronically Signed By: Sanju RANKIN, Layne Abbott\.br\Date and Time Signed: 12/05/24 17:26 EST\.br\Electronically Co-Signed By: Ephraim ROSS MD\.br\Date and Time Co-Signed: 12/10/24 07:10 EST 11-26-2024 Hospital Discharge instructions Patient Education 11/26/2024 14:09:46 Fall Prevention in the Home, Adult, Hptn-og-Haeq Fall Prevention in the Home, Adult Falls can cause injuries and can happen to people of all ages. There are many things you can do to make your home safer and to help prevent falls. What actions can I take to prevent falls? General information Use good lighting in all rooms. Make sure to: ?Replace any light bulbs that burn out. ?Turn on the lights in dark areas and use night-lights. Keep items that you use often in dlea-pu-hwiug places. Lower the shelves around your home if needed. Move furniture so that there are clear paths around it. Do not use throw rugs or other things on the floor that can make you trip. If any of your floors are uneven, fix them. Add color or contrast paint or tape to clearly geovani and help you see: ?Grab bars or handrails. ?First and last steps of staircases. ?Where the edge of each step is. If you use a ladder or stepladder: ?Make sure that it is fully opened. Do not climb a closed ladder. ?Make sure the sides of the ladder are locked in place. ?Have someone hold the ladder while you use it. Know where your pets are as you move through your home. What can I do in the bathroom? Keep the floor dry. Clean up any water on the floor right away. Remove soap buildup in the bathtub or shower. Buildup makes bathtubs and showers slippery. Use non-skid mats or decals on the floor of the bathtub or shower. Attach bath mats securely with double-sided, non-slip rug tape. If you need to sit down in the shower, use a non-slip stool. Install grab bars by the toilet and in the bathtub and shower. Do not use towel bars as grab bars. What can I do in the bedroom? Make sure that you have a light by your bed that is easy to reach. Do not use any sheets or blankets on your bed that hang to the floor. Have a firm chair or bench with side arms that you can use for support when you get dressed. What can I do in the kitchen? Clean up any spills right away. If you need to reach something above you, use a step stool with a grab bar. Keep electrical cords out of the way. Do not use floor german or wax that makes floors slippery. What can I do with my stairs? Do not leave anything on the stairs. Make sure that you have a light switch at the top and the bottom of the stairs. Make sure that there are handrails on both sides of the stairs. Fix handrails that are broken or loose. Install non-slip stair treads on all your stairs if they do not have carpet. Avoid having throw rugs at the top or bottom of the stairs. Choose a carpet that does not hide the edge of the steps on the stairs. Make sure that the carpet is firmly attached to the stairs. Fix carpet that is loose or worn. What can I do on the outside of my home? Use bright outdoor lighting. Fix the edges of walkways and driveways and fix any cracks. Clear paths of anything that can make you trip, such as tools or rocks. Add color or contrast paint or tape to clearly geovani and help you see anything that might make you trip as you walk through a door, such as a raised step or threshold. Trim any bushes or trees on paths to your home. Check to see if handrails are loose or broken and that both sides of all steps have handrails. Install guardrails along the edges of any raised decks and porches. Have leaves, snow, or ice cleared regularly. Use sand, salt, or ice melter on paths if you live where there is ice and snow during the winter. Clean up any spills in your garage right away. This includes grease or oil spills. What other actions can I take? Review your medicines with your doctor. Some medicines can cause dizziness or changes in blood pressure, which increase your risk of falling. Wear shoes that: ?Have a low heel. Do not wear high heels. ?Have rubber bottoms and are closed at the toe. ?Feel good on your feet and fit well. Use tools that help you move around if needed. These include: ?Canes. ?Walkers. ?Scooters. ?Crutches. Ask your doctor what else you can do to help prevent falls. This may include seeing a physical therapist to learn to do exercises to move better and get stronger. Where to find more information Centers for Disease Control and Prevention, BIB: cdc.gov National [place] on Aging: suyapa.nih.gov National [place] on Aging: suyapa.nih.gov Contact a doctor if: You are afraid of falling at home. You feel weak, drowsy, or dizzy at home. You fall at home. Get help right away if you: Lose consciousness or have trouble moving after a fall. Have a fall that causes a head injury. These symptoms may be an emergency. Get help right away. Call 911. Do not wait to see if the symptoms will go away. Do not drive yourself to the hospital. This information is not intended to replace advice given to you by your health care provider. Make sure you discuss any questions you have with your health care provider. Document Revised: 07/04/2023 Document Reviewed: 07/04/2023 Protection Plus Patient Education 2023 [employer]. Follow Up Care 11/24/2024 17:09:06 With:Orlando Sepulveda Address: [address] [facility], [address] [place] [address]- [phone] Business (1) [address] [place] [address] [place] [address] [phone] When:12/19/2024 11:00:00 Comments:Multilevel foraminal and canal narrowing. With:Dorie Luis Address: [address] [place] [phone] Business (2) When:12/04/2024 07:45:00 Comments:Please [facility] proof [facility] With:Elsy López MD, [facility] Address: [address] [place] [id number] Business (1) When:01/28/2025 12:00:00 Comments:Please bring in proof of insurance to this hospital follow up appointment. [facility] 11-26-2024 Note Interdisciplinary No te - OT Pt is seen for OT evaluation this date. AMPAC score: 24/24. Pt is able to complete functional mobility in room and all simple ADL tasks at MOD I level and demonstrates good safety and no LOB throughout. No skilled OT needs at this time. [facility] 11-26-2024 Note Catarino Learning Par ticipants Patient Catarino Understands Education Yes Catarino Education Video Speak Up: To Prevent Falls [facility] 11-26-2024 Note GetWell Learning Par ticipants Patient GetWell Understands Education Yes GetWell Education Video Speak Up: To Prevent Falls [facility] 11-26-2024 Note GetWell Learning Par ticipants Patient GetWell Understands Education Yes GetWell Education Video Your Hospital Stay: Going Home [facility] 11-26-2024 Note GetWell Learning Par ticipants Patient GetWell Understands Education Yes GetWell Education Video Getting Help When You Leave the Hospital [facility] 11-26-2024 Note GetWell Understands Education Yes GetWell Education Video High Blood Pressure: Make the Most of Home Monitoring [employer]Well Learning Participants Patient [facility] 11-26-2024 Note GetWell Understands Education Yes GetWell Education Video Avoiding Infections in the Hospital GetWell Learning Participants Patient [facility] 11-26-2024 Evaluation + Plan note Extrac purvi from: Title:APSO Note- Neurology Author:Madeleine Mckinley RN Date:11/26/24 ASSESSMENT: Longstanding history of drop attacks. No loss of consciousness. Here after a fall with lacerations to upper extremities and face. Etiology unclear. Too old for narcolepsy to be a consideration. No asterixis on examination of upper or lower extremities. Do not suspect for atonic seizures; routine EEG was unremarkable. There could be a radicular component; she has lumbar spondylosis with chronic radicular symptoms in both lower extremities and some weakness in her left foot that is likely radicular in origin, along with EMG studies from November 2022 that were suggestive of polyneuropathy and bilateral S1 radiculopathies. MRI of her lumbar spine shows that a successful L4-S1 surgical decompression, but at L1-2, L2-3, and L3-4 there is significant central canal and neuroforaminal narrowing that could be contributory. I would also consider the neuroleptic medications (olanzapine, quetiapine) as contributory. PLAN: Outpatient neurology follow-up Okay for discharge from my standpoint [1] 1. Leg weakness, bilateral (R29.898: Other symptoms and signs involving the musculoskeletal system) 2. Fall (W19.XXXA: Unspecified fall, initial encounter) 3. Forehead abrasion (S00.81XA: Abrasion of other part of head, initial encounter) 4. Hand laceration (S61.419A: Laceration without foreign body of unspecified hand, initial encounter) 5. HTN (hypertension), benign (I10: Essential (primary) hypertension) 6. Anxiety and depression (F41.9: Anxiety disorder, unspecified) 7. HLD (hyperlipidemia) (E78.5: Hyperlipidemia, unspecified) 8. RLS (restless legs syndrome) (G25.81: Restless legs syndrome) 9. CAD (coronary artery disease) (I25.10: Atherosclerotic heart disease of [place] coronary artery without angina pectoris) 10. PVD (peripheral vascular disease) (I73.9: Peripheral vascular disease, unspecified) 11. 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: Other technician terminal and repeater (current) drug therapy) Extracted from: Title:APSO Note Author:Layne Terrazas te:11/25/24 1. Leg weakness, bilateral ( R29.898: Other symptoms and signs involving the musculoskeletal system) - Unclear etiology. - Consult neurology - Lumbar spine MRI pending - planned for AM. - Multiple antipsychotic agents may be contributing - in the process of being titrated down. - Home dose of Seroquel and trazodone decreased on admission. - PRN Ativan 1 mg p.o. 3 times daily ordered instead of her home Xanax 1 mg p.o. 4 times daily as needed. - Vitamin B12, folate, and TSH levels unremarkable - RPR pending 2. Fall (W19.XXXA: Unspecified fall, initial encounter) - PT/OT to evaluate patient. - Trauma eval performed in emergency department with no acute fractures or visceral injuries noted. 3. Forehead abrasion (S00.81XA: Abrasion of other part of head, initial encounter) - Continue Vaseline and gauze twice daily. 4. Hand laceration (S61.419A: Laceration without foreign body of unspecified hand, initial encounter) - Continue Vaseline and gauze twice daily. 5. HTN (hypertension), benign (I10: Essential (primary) hypertension) - Continue home Coreg, Imdur, losartan - PRN hydralazine IV for uncontrolled HTN 6. Anxiety and depression (F41.9: Anxiety disorder, unspecified) - Continue patient's Effexor. - Titrate down Seroquel and trazodone as noted above. 7. HLD (hyperlipidemia) (E78.5: Hyperlipidemia, unspecified) - Continue statin 8. RLS (restless legs syndrome) (G25.81: Restless legs syndrome) - Continue Requip 9. CAD (coronary artery disease) (I25.10: Atherosclerotic heart disease of [place] coronary artery without angina pectoris) - No active anginal complaints. - Continue home statin, aspirin, Effient, Coreg 10. PVD (peripheral vascular disease) (I73.9: Peripheral vascular disease, unspecified) - Continue Effient 11. 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: Other technician terminal and repeater (current) drug therapy) SCD, enoxaparin Orders: potassium chloride, 20 mEq = 2 cap(s), Cap-ER, Oral, Once, Stop date 11/25/24 11:00:00 EST, Routine, Start date 11/25/24 11:00:00 EST, 11/25/24 10:52:00 EST Extracted from: Title:Consult Note- Neurology Author:Amelia Mckinley RN Date:11/25/24 ASSESSMENT: Longstanding history of drop attacks. No loss of consciousness. Here after a fall with lacerations to upper extremities and face. Etiology unclear. Too old for narcolepsy to be a consideration. No asterixis on examination of upper or lower extremities. Do not suspect for atonic seizures. There could be a radicular component; she has lumbar spondylosis with chronic radicular symptoms in both lower extremities and some weakness in her left foot that is likely radicular in origin, along with EMG studies from November 2022 that were suggestive of polyneuropathy and bilateral S1 radiculopathies. Consider the neuroleptic medications (olanzapine, quetiapine) as contributory. PLAN: 1. MRI lumbar spine without contrast 2. Consider EEG 3. Check orthostatic vital signs 4. Further recommendations to follow 1. Leg weakness, bilateral (R29.898: Other symptoms and signs involving the musculoskeletal system) 2. Fall (W19.XXXA: Unspecified fall, initial encounter) 3. Forehead abrasion (S00.81XA: Abrasion of other part of head, initial encounter) 4. Hand laceration (S61.419A: Laceration without foreign body of unspecified hand, initial encounter) 5. HTN (hypertension), benign (I10: Essential (primary) hypertension) 6. Anxiety and depression (F41.9: Anxiety disorder, unspecified) 7. HLD (hyperlipidemia) (E78.5: Hyperlipidemia, unspecified) 8. RLS (restless legs syndrome) (G25.81: Restless legs syndrome) 9. CAD (coronary artery disease) (I25.10: Atherosclerotic heart disease of [place] coronary artery without angina pectoris) 10. PVD (peripheral vascular disease) (I73.9: Peripheral vascular disease, unspecified) 11. 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: Other skilled nursing (current) drug therapy) Back pain (M54.9: Dorsalgia, unspecified) Depression, unspecified (F32.A: Depression, unspecified) Dizziness (R42: Dizziness and giddiness) Dyspnea (R06.00: Dyspnea, unspecified) Head injury (S09.90XA: Unspecified injury of head, initial encounter) Extracted from: Title:Admission H & P Author:Alec LUTHER DO Date:11/24/24 1. Leg weakness, bilateral ( R29.898: Other symptoms and signs involving the musculoskeletal system) Unclear as to the exact cause of patient's weakness. Will ask neurology to see patient. I have ordered a lumbar spine MRI. Patient is also on multiple antipsychotic agents and is in the process of being titrated down. I will decrease patient's dose of Seroquel and trazodone. Patient had been on Seroquel 150 mg nightly. This will be changed to Seroquel 100 mg p.o. nightly. Patient has been on trazodone 300 mg p.o. nightly. This will be changed to trazodone 150 mg p.o. nightly. Will use Ativan 1 mg p.o. 3 times daily as needed for anxiety instead of her Xanax 1 mg p.o. 4 times daily as needed. Will also check vitamin B12, folate, RPR, TSH level. 2. Fall (W19.XXXA: Unspecified fall, initial encounter) Left physical therapy Occupational Therapy to evaluate patient. Trauma eval performed in emergency department with no acute fractures or visceral injuries noted. 3. Forehead abrasion (S00.81XA: Abrasion of other part of head, initial encounter) Will use Vaseline and gauze twice daily. 4. Hand laceration (S61.419A: Laceration without foreign body of unspecified hand, initial encounter) Will use Vaseline and gauze twice daily. 5. HTN (hypertension), benign (I10: Essential (primary) hypertension) Resume patient's home medications as ordered below. Will use hydralazine IV as needed. 6. Anxiety and depression (F41.9: Anxiety disorder, unspecified) Continue patient's Effexor. Will titrate down Seroquel and trazodone as noted above. 7. HLD (hyperlipidemia) (E78.5: Hyperlipidemia, unspecified) Continue statin 8. RLS (restless legs syndrome) (G25.81: Restless legs syndrome) Continue Requip 9. CAD (coronary artery disease) (I25.10: Atherosclerotic heart disease of [place] coronary artery without angina pectoris) No active anginal complaints. Will continue patient on statin, aspirin, Effient, Coreg 10. PVD (peripheral vascular disease) (I73.9: Peripheral vascular disease, unspecified) Continue Effient 11. 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: Other technician terminal and repeater (current) drug therapy) SCD, enoxaparin Orders: acetaminophen, 650 mg = 2 tab(s), Tab, Oral, q6hr PRN Pain, Routine, Start date 11/24/24 20:50:00 EST, 11/24/24 20:50:00 EST albuterol, 2.5 mg, 3 mL, Soln-Inh, Inhalation, q2hr PRN Shortness of breath or wheezing, Routine, Start date 11/24/24 21:17:00 EST albuterol-ipratropium, 3 mL, Soln-Inh, Inhalation, QID, NOW, Start date 11/24/24 21:18:00 EST aspirin, 81 mg = 1 tab(s), Tab-EC, Oral, Daily, Routine, Start date 11/25/24 9:00:00 EST, 11/24/24 21:17:00 EST atorvastatin, 80 mg = 2 tab(s), Tab, Oral, Daily, Routine, Start date 11/25/24 9:00:00 EST, 11/24/24 21:17:00 EST budesonide, 0.5 mg = 2 mL, Susp-Inh, NEB, BID for 30 day(s), Stop date 12/24/24 21:16:00 EST, NOW, Start date 11/24/24 21:17:00 EST, 11/24/24 21:17:00 EST carvedilol, 12.5 mg = 1 tab(s), Tab, Oral, BID, NOW, Start date 11/24/24 21:18:00 EST, 11/24/24 21:18:00 EST diphenhydrAMINE, 25 mg = 1 cap(s), Cap, Oral, q6hr PRN Itching, Routine, Start date 11/24/24 20:50:00 EST, 11/24/24 20:50:00 EST enoxaparin, 40 mg = 0.4 mL, Injection, SubCutaneous, Daily for 30 day(s), Stop date 12/25/24 8:59:00 EST, Routine, Start date 11/25/24 9:00:00 EST, 11/24/24 20:50:00 EST hydrALAZINE, 10 mg = 0.5 mL, Injection, IV Push, q4hr PRN Other (see comment), Routine, Start date 11/24/24 20:36:00 EST, 11/24/24 20:36:00 EST ibuprofen, 800 mg = 1 tab(s), Tab, Oral, TID PRN Pain, Routine, Start date 11/24/24 20:50:00 EST, 11/24/24 20:50:00 EST isosorbide mononitrate, 30 mg = 1 tab(s), Tab-ER, Oral, BID, NOW, Start date 11/24/24 21:18:00 EST, 11/24/24 21:18:00 EST lamotrigine, 75 mg = 3 tab(s), Tab, Oral, Once a day (at bedtime), NOW, Start date 11/24/24 21:19:00 EST, 11/24/24 21:19:00 EST lorazepam, 1 mg = 1 tab(s), Tab, Oral, TID PRN Anxiety, Routine, Start date 11/24/24 20:50:00 EST, 11/24/24 20:50:00 EST lorazepam, 1 mg = 1 tab(s), Tab, Oral, Once, Stop date 11/24/24 21:00:00 EST, Routine, Start date 11/24/24 21:00:00 EST, 11/24/24 20:20:00 EST losartan, 100 mg = 2 tab(s), Tab, Oral, Daily, Routine, Start date 11/25/24 9:00:00 EST, 11/24/24 21:19:00 EST olanzapine, 5 mg = 1 tab(s), Tab, Oral, Once a day (at bedtime), NOW, Start date 11/24/24 21:19:00 EST, 11/24/24 21:19:00 EST ondansetron, 4 mg = 2 mL, Injection, IV Push, q6hr PRN Nausea, Routine, Start date 11/24/24 20:50:00 EST, 11/24/24 20:50:00 EST prasugrel, 10 mg = 1 tab(s), Tab, Oral, Daily, Routine, Start date 11/25/24 9:00:00 EST, 11/24/24 21:19:00 EST quetiapine, 100 mg = 1 tab(s), Tab, Oral, Bedtime, Routine, Start date 11/25/24 21:00:00 EST, 11/24/24 21:31:00 EST ranolazine, 1,000 mg = 2 tab(s), Oral, BID, # 60 tab(s), Refills(s) 5, Pharmacy: [facility]/pharmacy #[id number], 154, cm, 05/30/24 10:31:00 EDT, Height/Length Dosing, 72.6, kg, 05/30/24 10:33:00 EDT, Weight Dosing ranolazine, 1,000 mg = 2 tab(s), Tab-ER, Oral, BID, NOW, Start date 11/24/24 21:19:00 EST, 11/24/24 21:19:00 EST ropinirole, 1 mg = 1 tab(s), Tab, Oral, Daily, Routine, Start date 11/25/24 9:00:00 EST, 11/24/24 21:20:00 EST trazodone, 150 mg = 3 tab(s), Tab, Oral, Once a day (at bedtime), Routine, Start date 11/25/24 21:00:00 EST, 11/24/24 21:25:00 EST venlafaxine, 300 mg = 2 cap(s), Cap-ER, Oral, Once a day (at bedtime), NOW, Start date 11/24/24 21:20:00 EST, 11/24/24 21:20:00 EST Ambulate with Assistance Below the Knee Intermittent Pneumatic Compression Device Cardiac Diet Cardiac Monitoring Communication Order Physician to Nursing Consult to Neurology Folate Level MRI Spine Lumbar w/ + w/o Contrast Notify Provider Vital Signs Notify Provider Vital Signs Occupational Therapy Evaluate Patient, Develop a Plan of Care and Implement Plan Oxygen Protocol Physical Therapy Evaluate Patient, Develop a Plan of Care and Implement Plan Precautions Resuscitation Status - Full RPR with Conf Rfx Saline Lock Convert From IV TSH With T4fr Reflex Vitamin B12 Level Weight Anticipated stay less than 2 midnights. Patient will be observation status. Extracted from: Title:ED Note Author:Lawrence Elise DO Date:11/14 12/08 Back pain (M54.9: Dorsalgia, unspecified) Dizziness (R42: Dizziness and giddiness) Dyspnea (R06.00: Dyspnea, unspecified) Forehead abrasion (S00.81XA: Abrasion of other part of head, initial encounter) Head injury (S09.90XA: Unspecified injury of head, initial encounter) Orders: ABO/Rh ABO/Rh History Check Antibody Screen Basic Metabolic Panel Blood Bank ID# CBC w/ Auto Diff CT Abdomen/Pelvis w/ Contrast CT Chest w/ Contrast CT Head or Brain w/o Contrast CT Spine Cervical w/o Contrast Drug Screen Urine ED Cardiac Monitoring eGFR Ethanol Level Extra SST Tube Hepatic Function Panel Lactic Acid Lipase Level NPO Diet Oxygen Therapy PT & PTT Pulse Oximetry Continuous Saline Lock Insert Troponin XR Shoulder Complete Right Addendum by Dioni Gallardo DO on November 24, 2024 20:44:[address] chest abdomen pelvis without any acute findings. Case discussed with the hospitalist as plan for admission. Dioni Gallardo DO, FAAJENNIFER Future Appointments Appointment Date:12/03/2024 11:00:00 AM Scheduled Provider:Abhi POSEY, Lexis Sauceda Location[facility] Appointment Type:Vascular New Patient ([facility]) Appointment Date:12/04/2024 07:45:00 AM Scheduled Provider:Dorie Luis MD Location:[facility] Appointment Type: Hospital Follow Up w/TCM Appointment Date:12/14/2024 01:00:00 PM Scheduled Provider:Amilcar Matthews PA-C [facility]iology Follow Up ([facility]) Appointment Date:01/07/2025 01:00:00 PM Scheduled Provider:Dorie Luis MD Location:[facility] Appointment Type: Open Appointment Date:06/18/2025 02:30:00 PM Scheduled Provider: Location:[facility] Appointment Type: Medicare Wellness Subsequent Diagnostic Tests Pending * RPR with Conf Rfx 11/25/24 Future Scheduled Tests Laboratory* B-Type Natriuretic Peptide 12/01/23 * Basic Metabolic Panel 12/01/23 [facility] 01-13-2025 NoteProgress Note-Physician Assessment/Plan ASSESSMENT: Longstanding history of drop attacks. No loss of consciousness. Here after a fall with lacerations to upper extremities and face. Etiology unclear. Too old for narcolepsy to be a consideration. No asterixis on examination of upper or lower extremities. Do not suspect for atonic seizures; routine EEG was unremarkable. There could be a radicular component; she has lumbar spondylosis with chronic radicular symptoms in both lower extremities and some weakness in her left foot that is likely radicular in origin, along with EMG studies from November 2022 that were suggestive of polyneuropathy and bilateral S1 radiculopathies. MRI of her lumbar spine shows that a successful L4-S1 surgical decompression, but at L1-2, L2-3, and L3-4 there is significant central canal and neuroforaminal narrowing that could be contributory. I would also consider the neuroleptic medications (olanzapine, quetiapine)as contributory. PLAN: Outpatient neurology follow-up Okay for discharge from my standpoint [1] 1. Leg weakness, bilateral (R29.898: Other symptoms and signs involving the musculoskeletal system) 2. Fall (W19.XXXA: Unspecified fall, initial encounter) 3. Forehead abrasion (S00.81XA: Abrasion of other part of head, initial encounter) 4. Hand laceration (S61.419A: Laceration without foreign body of unspecified hand, initial encounter) 5. HTN (hypertension), benign (I10: Essential (primary) hypertension) 6. Anxiety and depression (F41.9: Anxiety disorder, unspecified) 7. HLD (hyperlipidemia) (E78.5: Hyperlipidemia, unspecified) 8. RLS (restless legs syndrome) (G25.81: Restless legs syndrome) 9. CAD (coronary artery disease) (I25.10: Atherosclerotic heart disease of [place] coronary artery without angina pectoris) 10. PVD (peripheral vascular disease) (I73.9: Peripheral vascular disease, unspecified) 11. 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: Other technician terminal and repeater (current) drug therapy) Subjective She feels the same. She is anxious to go home, says that she was really bored yesterday. No new symptoms to report. Review of Systems GEN: No fevers or chills. CV/PULM: No chest pain. No shortness of breath. No palpitations. NEURO: No headaches. No loss of vision. No double vision. No dysphagia. No speech changes. Objective Vitals & Measurements T: 36.2 ???C(Oral) TMIN: 36.2 ???C(Oral) TMAX: 36.5 ???C(Axillary) HR: 69(Monitored) RR: 17 BP: 135/76 BP: 104/72(Standing) BP: 96/76(Supine) SpO2: 95% WT: 79.7 kg Intake & Output This visit (24 hour periods starting at 07:00 EST) 11/25/24 * 11/24/24 11/23/24 Total Summary Intake mL 900 0.5 -- Output mL -- -- -- Fluid Balance 900 0.5 -- Intake (2) Oral Intake mL 900 -- -- hydrALAZINE mL -- 0.5 -- Total 900 0.5 -- Output (0) Counts (1) Urine Count 4 -- -- * This column has not completed the indicated time period. Physical Exam GEN: General appearance normal. Well-kempt. No distress. Lacerations to upper extremities, including the right hand which required a suture. Linear superficial lacerations across forehead. CARDIO/VASC: Limbs without significant edema and appear well-perfused. PULM: Normal work of breathing. SKIN: Visualized skin is intact and without lesions aside from age-related findings. MS: Affect is normal. Patient is alert and generally oriented. Normal attention. LANG: Speech is fluent and non-dysarthric. EYES: Pupils equal/reactive/consensual. Ocular motility full. No pathologic nystagmus. CN: Facial sensation normal. Hearing acuity normal. Face without droop and with normal motor function. MOTOR: Muscle bulk normal. Muscle tone normal. Muscle strength checks out okay aside from her left foot which has +4/5 dorsiflexion and +4/5 plantarflexion. No tremors or asterixis. REFLEXES: Patellar reflexes +2/4 bilaterally. No ankle reflexes. SENSORY: Light touch normal. Vibratory sensation intact in distal extremities. CEREBELLAR: No limb ataxia. Lab Results WBC: 3.9 E9/L Low (11/26/24 05:58:00) RBC: 4.4 E12/L (11/26/24 05:58:00) HGB: 14.7 gm/dL (11/26/24 05:58:00) Hct: 42.4 % (11/26/24 05:58:00) MCV: 96.5 fL (11/26/24 05:58:00) MCH: 33.5 pg (11/26/24 05:58:00) MCHC: 34.8 gm/dL (11/26/24 05:58:00) RDW: 13.6 % (11/26/24 05:58:00) Platelet: 184 E9/L (11/26/24 05:58:00) MPV: 7.5 fL (11/26/24 05:58:00) Neutro Auto: 42.4 % (11/26/24 05:58:00) Lymph Auto: 44.2 % (11/26/24 05:58:00) [place] Auto: 9.3 % (11/26/24 05:58:00) Eos Auto: 3.1 % (11/26/24 05:58:00) Basophil Auto: 1 % (11/26/24 05:58:00) Neutro Absolute: 1.7 E9/L Low (11/26/24 05:58:00) Lymph Absolute: 1.7 E9/L (11/26/24 05:58:00) [place] Absolute: 0.4 E9/L (11/26/24 05:58:00) [place] Absolute: 0.1 E9/L (11/26/24 05:58:00) Basophil Absolute: 0 E9/L (11/26/24 05:58:00) Glucose Lvl: 90 mg/dL (11/26/24 05:58:00) BUN: 15 mg/dL (11/26/24 05:58:00) Creatinine: 0.7 mg/dL (11/26/24 05:58 (more content not included)...[facility]:Result Comment: Electronically Signed By: Amelia Mckinley RN\.br\Date and Time Signed: 11/26/24 06:45 EST\.br\Electronically Co-Signed By: Jasper Benjamin DO\.br\Date and Time Co- Signed: 11/26/24 12:18 [id number] NoteInterdisciplinary Note - PT PT Evaluation done this date. Pt. with on AM-PAC. She is safe and steady with functional activities this date, supervision only with gait. Recommend using FWW at all times for safety and possible outpatient PT if cleared after lumbar MRI. No further acute PT needs.[facility] Note Progress Note-Physician Assessment/Plan 1. Leg weakness, bilateral (R29.898: Other symptoms and signs involving the musculoskeletal system) - Unclear etiology. - Consult neurology - Lumbar spine MRI pending - planned for AM. - Multiple antipsychotic agents may be contributing - in the process of being titrated down. - Home dose of Seroquel and trazodone decreased on admission. - PRN Ativan 1 mg p.o. 3 times daily ordered instead of her home Xanax 1 mg p.o. 4 times daily as needed. - Vitamin B12, folate, and TSH levels unremarkable - RPR pending 2. Fall (W19.XXXA: Unspecified fall, initial encounter) - PT/OT to evaluate patient. - Trauma eval performed in emergency department with no acute fractures or visceral injuries noted. 3. Forehead abrasion (S00.81XA: Abrasion of other part of head, initial encounter) - Continue Vaseline and gauze twice daily. 4. Hand laceration (S61.419A: Laceration without foreign body of unspecified hand, initial encounter) - Continue Vaseline and gauze twice daily. 5. HTN (hypertension), benign (I10: Essential (primary) hypertension) - Continue home Coreg, Imdur, losartan - PRN hydralazine IV for uncontrolled HTN 6. Anxiety and depression (F41.9: Anxiety disorder, unspecified) - Continue patient's Effexor. - Titrate down Seroquel and trazodone as noted above. 7. HLD (hyperlipidemia) (E78.5: Hyperlipidemia, unspecified) - Continue statin 8. RLS (restless legs syndrome) (G25.81: Restless legs syndrome) - Continue Requip 9. CAD (coronary artery disease) (I25.10: Atherosclerotic heart disease of [place] coronary artery without angina pectoris) - No active anginal complaints. - Continue home statin, aspirin, Effient, Coreg 10. PVD (peripheral vascular disease) (I73.9: Peripheral vascular disease, unspecified) - Continue Effient 11. 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: Other technician terminal and repeater (current) drug therapy) SCD, enoxaparin Orders: potassium chloride, 20 mEq = 2 cap(s), Cap-ER, Oral, Once, Stop date 11/25/24 11:00:00 EST, Routine, Start date 11/25/24 11:00:00 EST, 11/25/24 10:52:00 EST Subjective The patient is resting in bed at the time of my exam. She denies any acute complaints including no chest pain, shortness of breath, abdominal pain, or dizziness. She has already been seen in consult by neurology who suspects drop attacks, without prodromal symptoms and sudden collapse. She has no known loss of consciousness with these episodes. She has known polyneuropathy and bilateral S1 radiculopathy. She is experiencing bilateral foot pain for the last 3 weeks but denies any paresthesias. An MRI of the lumbar spine has been ordered and is pending and as needed Ativan can be given prior tothis study as the patient suffers from claustrophobia. Neurology may consider an EEG pending clinical course. Seizure activity is not suspected. Objective Vitals & Measurements T: 36.5 ???C(Axillary) TMIN: 36.3 ???C(Oral) TMAX: 36.9 ???C(Oral) HR: 69(Monitored) RR: 18 BP: 172/83 BP: 104/72(Standing) BP: 96/76(Supine) SpO2: 95% HT: 162.56 cm WT: 77.0 kg Intake & Output This visit (24 hour periods starting at 07:00 EST) 11/25/24 * 11/24/24 11/23/24 Total Summary Intake mL -- 0.5 -- Output mL -- -- -- Fluid Balance -- 0.5 -- Intake (1) hydrALAZINE mL -- 0.5 -- Total -- 0.5 -- Output (0) Counts (0) * This column has not completed the indicated time period. Physical Exam General: alert, no acute distress Skin: warm, dry Head: no trauma, normocephalic Neck: Trachea midline, no adenopathy, no tenderness Eye: normal conjunctiva, sclera clear ENMT: oral mucosa moist Cardiovascular: regular rhythm, normal rate, normal peripheral perfusion Respiratory: Lungs CTA, respirations [...] judgement, normal psychiatric thoughts. Lab Results WBC: 3.6 E9/L Low (11/25/24 05:58:00) RBC: 4.3 E12/L (11/25/24 05:58:00) HGB: 14.6 gm/dL (11/25/24 05:58:00) Hct: 42 % (11/25/24 05:58:00) MCV: 96.5 fL (11/25/24 05:58:00) MCH: 33.6 pg (11/25/24 05:58:00) MCHC: 34.8 gm/dL (11/25/24 05:58:00) RDW: 13.6 % (11/25/24 05:58:00) Platelet: 187 E9/L (11/25/24 05:58:00) MPV: 7.8 fL (11/25/24 05:58:00) Neutro Auto: 36.6 % (11/25/24 05:58:00) Lymph Auto: 47.4 % (11/25/24 05:58:00) [place] Auto: 11.9 % (11/25/24 05:58:00) Eos Auto: 3.3 % (11/25/24 05:58:00) Basophil Auto: 0.8 % (11/25/24 05:58:00) Neutro Absolute: 1.3 E9/L Low (11/25/24 05:58:00) Lymph Absolute: 1.7 E9/L (11/25/24 05:58:00) [place] Absolute: 0.4 E9/L ( (more content not included)...[facility]Comment on above:Result Comment: Electronically Signed By: Layne Terrazas\.br\Date and Time Signed: 11/25/2515:53 EST\.br\Electronically Co- Signed By: Kadeem Colon DO\.br\Date and Time Co-Signed: 11/25/24 16:54 [id number] NoteConsultation Note Chief Complaint Fall Reason for Consultation BLE weakness History of Present Illness 64-year-old woman here after a fall. She seems to have fallen on some glass and sustained some lacerations to her face and hands. She falls fairly frequently and for many months to years. She says sometimes they can occur as many as 2-3 times per day. They sound like a drop attack. She says she hasno indication she is going to fall and just sort of collapses in a heap. She has been worked up fornerve issues in the legs before. She had EMG and nerve conduction studies in November 2022 that showed polyneuropathy and bilateral S1 radiculopathies. She said she deals with chronic low back pain. Sometimes, depending on position, the pains radiate down into the legs. Her feet tend to hurt her allthe time. She has not noticed any asterixis or tremors of any great significance. Review of Systems GEN: No fevers or chills. CV/PULM: No chest pain. No shortness of breath. No palpitations. NEURO: No headaches. No loss of vision. No double vision. No dysphagia. No speech changes. Physical Exam Vitals & Measurements T: 36.4 ???C(Oral) TMIN: 36.3 ???C(Oral) TMAX: 36.9 ???C(Oral) HR: 70(Monitored) RR: 18 BP: 133/80 SpO2: 92% HT: 162.56 cm WT: 77.0 kg GEN: General appearance normal. Well-kempt. No distress. Lacerations to upper extremities, including the right hand which required a suture. Linear superficial lacerations across forehead. CARDIO/VASC: Limbs without significant edema and appear well-perfused. PULM: Normal work of breathing. SKIN: Visualized skin is intact and without lesions aside from age-related findings. MS: Affect is normal. Patient is alert and generally oriented. Normal attention. LANG: Speech is fluent and non-dysarthric. EYES: Pupils equal/reactive/consensual. Ocular motility full. No pathologic nystagmus. CN: Facial sensation normal. Hearing acuity normal. Face without droop and with normal motor function. MOTOR: Muscle bulk normal. Muscle tone normal. Muscle strength checks out okay aside from her left foot which has +4/5 dorsiflexion and +4/5 plantarflexion. No tremors or asterixis. REFLEXES: Patellar reflexes +2/4 bilaterally. No ankle reflexes. SENSORY: Light touch normal. Vibratory sensation intact in distal extremities. CEREBELLAR: No limb ataxia. Assessment/Plan ASSESSMENT: Longstanding history of drop attacks. No loss of consciousness. Here after a fall with lacerations to upper extremities and face. Etiology unclear. Too old for narcolepsy to be a consideration. No asterixis on examination of upper or lower extremities. Do not suspect for atonic seizures. There could be a radicular component; she has lumbar spondylosis with chronic radicular symptoms in both lowerextremities and some weakness in her left foot that is likely radicular in origin, along with EMG studies from November 2022 that were suggestive of polyneuropathy and bilateral S1 radiculopathies. Consider the neuroleptic medications (olanzapine, quetiapine) as contributory. PLAN: 1. MRI lumbar spine without contrast 2. Consider EEG 3. Check orthostatic vital signs 4. Further recommendations to follow 1. Leg weakness, bilateral (R29.898: Other symptoms and signs involving the musculoskeletal system) 2. Fall (W19.XXXA: Unspecified fall, initial encounter) 3. Forehead abrasion (S00.81XA: Abrasion of other part of head, initial encounter) 4. Hand laceration (S61.419A: Laceration without foreign body of unspecified hand, initial encounter) 5. HTN (hypertension), benign (I10: Essential (primary) hypertension) 6. Anxiety and depression (F41.9: Anxiety disorder, unspecified) 7. HLD (hyperlipidemia) (E78.5: Hyperlipidemia, unspecified) 8. RLS (restless legs syndrome) (G25.81: Restless legs syndrome) 9. CAD (coronary artery disease) (I25.10: Atherosclerotic heart disease of [place] coronary artery without angina pectoris) 10. PVD (peripheral vascular disease) (I73.9: Peripheral vascular disease, unspecified) 11. 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: Other skilled nursing (current) drug therapy) Back pain (M54.9: Dorsalgia, unspecified) Depression, unspecified (F32.A: Depression, unspecified) Dizziness (R42: Dizziness and giddiness) Dyspnea (R06.00: Dyspnea, unspecified) Head injury (S09.90XA: Unspecified injury of head, initial encounter) Problem List/Past Medical History Ongoing Anxiety and depression Atherosclerosis of aorta Back pain CAD (coronary artery disease) Chest pain syndrome COPD (chronic obstructive pulmonary disease) Current smoker Fatigue History of ST elevation myocardial infarction (STEMI) History of total abdominal hysterectomy HLD (hyperlipidemia) HTN (hypertension), benign Major depressive disorder, recurrent, moderate Polyneuropathy Primary insomnia PVD (peripheral vascular disease) RLS (restless legs syndrome) Sinus infection Walker as ambulation aid Historical Acute ST (more content not included)...[facility] HospitalComment on above:Result Comment: Electronically Signed By: Amelia Mckinley RN\.br\Date and Time Signed: 11/25/24 07:16 EST\.br\Electronically Co-Signed By: Jasper Benjamin DO\.br\Date and Time Co-Signed: 11/25/24 10:06 [id number] Note Consultation Note Chief Complaint Fall Reason for Consultation BLE weakness History of Present Illness 64-year-old woman here after a fall. She seems to have fallen on some glass and sustained some lacerations to her face and hands. She falls fairly frequently and for many months to years. She says sometimes they can occur as many as 2-3 times per day. They sound like a drop attack. She says she hasno indication she is going to fall and just sort of collapses in a heap. She has been worked up fornerve issues in the legs before. She had EMG and nerve conduction studies in November 2022 that showed polyneuropathy and bilateral S1 radiculopathies. She said she deals with chronic low back pain. Sometimes, depending on position, the pains radiate down into the legs. Her feet tend to hurt her allthe time. She has not noticed any asterixis or tremors of any great significance. Review of Systems GEN: No fevers or chills. CV/PULM: No chest pain. No shortness of breath. No palpitations. NEURO: No headaches. No loss of vision. No double vision. No dysphagia. No speech changes. Physical Exam Vitals & Measurements T: 36.4 ???C(Oral) TMIN: 36.3 ???C(Oral) TMAX: 36.9 ???C(Oral) HR: 70(Monitored) RR: 18 BP: 133/80 SpO2: 92% HT: 162.56 cm WT: 77.0 kg GEN: General appearance normal. Well-kempt. No distress. Lacerations to upper extremities, including the right hand which required a suture. Linear superficial lacerations across forehead. CARDIO/VASC: Limbs without significant edema and appear well-perfused. PULM: Normal work of breathing. SKIN: Visualized skin is intact and without lesions aside from age-related findings. MS: Affect is normal. Patient is alert and generally oriented. Normal attention. LANG: Speech is fluent and non-dysarthric. EYES: Pupils equal/reactive/consensual. Ocular motility full. No pathologic nystagmus. CN: Facial sensation normal. Hearing acuity normal. Face without droop and with normal motor function. MOTOR: Muscle bulk normal. Muscle tone normal. Muscle strength checks out okay aside from her left foot which has +4/5 dorsiflexion and +4/5 plantarflexion. No tremors or asterixis. REFLEXES: Patellar reflexes +2/4 bilaterally. No ankle reflexes. SENSORY: Light touch normal. Vibratory sensation intact in distal extremities. CEREBELLAR: No limb ataxia. Assessment/Plan ASSESSMENT: Longstanding history of drop attacks. No loss of consciousness. Here after a fall with lacerations to upper extremities and face. Etiology unclear. Too old for narcolepsy to be a consideration. No asterixis on examination of upper or lower extremities. Do not suspect for atonic seizures. There could be a radicular component; she has lumbar spondylosis with chronic radicular symptoms in both lowerextremities and some weakness in her left foot that is likely radicular in origin, along with EMG studies from November 2022 that were suggestive of polyneuropathy and bilateral S1 radiculopathies. Consider the neuroleptic medications (olanzapine, quetiapine) as contributory. PLAN: 1. MRI lumbar spine without contrast 2. Consider EEG 3. Check orthostatic vital signs 4. Further recommendations to follow 1. Leg weakness, bilateral (R29.898: Other symptoms and signs involving the musculoskeletal system) 2. Fall (W19.XXXA: Unspecified fall, initial encounter) 3. Forehead abrasion (S00.81XA: Abrasion of other part of head, initial encounter) 4. Hand laceration (S61.419A: Laceration without foreign body of unspecified hand, initial encounter) 5. HTN (hypertension), benign (I10: Essential (primary) hypertension) 6. Anxiety and depression (F41.9: Anxiety disorder, unspecified) 7. HLD (hyperlipidemia) (E78.5: Hyperlipidemia, unspecified) 8. RLS (restless legs syndrome) (G25.81: Restless legs syndrome) 9. CAD (coronary artery disease) (I25.10: Atherosclerotic heart disease of [place] coronary artery without angina pectoris) 10. PVD (peripheral vascular disease) (I73.9: Peripheral vascular disease, unspecified) 11. 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: Other technician terminal and repeater (current) drug therapy) Back pain (M54.9: Dorsalgia, unspecified) Depression, unspecified (F32.A: Depression, unspecified) Dizziness (R42: Dizziness and giddiness) Dyspnea (R06.00: Dyspnea, unspecified) Head injury (S09.90XA: Unspecified injury of head, initial encounter) Problem List/Past Medical History Ongoing Anxiety and depression Atherosclerosis of aorta Back pain CAD (coronary artery disease) Chest pain syndrome COPD (chronic obstructive pulmonary disease) Current smoker Fatigue History of ST elevation myocardial infarction (STEMI) History of total abdominal hysterectomy HLD (hyperlipidemia) HTN (hypertension), benign Major depressive disorder, recurrent, moderate Polyneuropathy Primary insomnia PVD (peripheral vascular disease) RLS (restless legs syndrome) Sinus infection Walker as ambulation aid Historical Acute ST (more content not included)...[facility] HospitalComment on above:Result Comment: Electronically Signed By: Amelia Mckinley RN\.br\Date and Time Signed: 11/25/24 07:16 EST\.br\Electronically Co-Signed By: Jasper Benjamin DO\.br\Date and Time Co-Signed: 11/25/24 10:06 [id number] NoteHistory and Physical Chief Complaint Fall History of Present Illness Patient is 64-year-old female with past medical history as noted below comes in with above-stated chief complaint. Patient states that over the past month she has been having significant episodes of weakness and falls to the ground. She denies any associated chest pain, shortness of breath, palpitations prior to these events. Patient states that they occur 2-3 times per day. Patient often falls to the ground and needs to call for help to get up. Patient states that she remains weak for about 1 to 2 hours after the episodes. On day of admission patient fell and hit her head and hands on a piece of furniture causing lacerations. This prompted patient to come to the ED for evaluation. When I see patient she states that her legs feel weak but better than when she had her acute episode. Patient denies any recent fevers, chills, nausea, vomiting, diarrhea, constipation. Patient states that when she has an upset stomach she does have some fecal incontinence. This is a chronic issue for the past 10 to 15 years after having a back surgery. He is no worse than normal. Patient denies any bladder incontinence. Patient does complain of some anxiety. Patient states that she has some mild pain at the cut on her forehead and hands. Review of Systems 14 Systems reviewed and negative except as noted in HPI. Scoring Taylor Fall Risk Score: 25 (11/24/24) Physical Exam Vitals & Measurements T: 36.3 ???C(Oral) TMIN: 36.3 ???C(Oral) TMAX: 36.9 ???C(Oral) HR: 78(Peripheral) RR: 17 BP: 187/96SpO2: 95% HT: 162.56 cm WT: 77.0 kg General: alert, no acute distress Skin: Laceration noted on forehead centrally, bilateral palms have small lacerations???there is no active bleeding, there is no erythema noted, some mild pain to palpation. Head: no trauma, normocephalic Neck: Trachea midline, [...] judgement, normal psychiatric thoughts. Lab Results WBC: 4.1 E9/L (11/24/24 17:34:00) RBC: 4.4 E12/L (11/24/24 17:34:00) HGB: 14.8 gm/dL (11/24/24 17:34:00) Hct: 42.4 % (11/24/24 17:34:00) MCV: 97.4 fL (11/24/24 17:34:00) MCH: 33.8 pg (11/24/24 17:34:00) MCHC: 34.8 gm/dL (11/24/24 17:34:00) RDW: 13.2 % (11/24/24 17:34:00) Platelet: 185 E9/L (11/24/24:34:00) MPV: 7.7 fL (11/24/24:34:) Neutro Auto: 46.5 % (11/24/24:34:) Lymph Auto: 40.2 % (11/24/24:34:) [place] Auto: 9.9 % (11/24/24:34:) Eos Auto: 2.6 % (11/24/24::) Basophil Auto: 0.8 % (11/24/24:34:) Neutro Absolute: 1.9 E9/L Low (11/24/24::) Lymph Absolute: 1.7 E9/L (11/24/24::) [place] Absolute: 0.4 E9/L (11/24/24:34:) Eos Absolute: 0.1 E9/L (11/24/24:34:) [place] Absolute: 0 E9/L (11/24/24:34:) PT: 11.7 second(s) (11/24/24:34:00) INR: 1.04 (11/24/24:34:) PTT: 32.3 second(s) (11/24/24:34:) Glucose Lvl: 89 mg/dL (11/24/24:34:) BUN: 11 mg/dL (11/24/24:34:) Creatinine: 0.7 mg/dL (11/24/24:34:) eGFR: 96 mL/min/1.73 m2 (11/24/24:34:) BUN/Creat Ratio: 16 (11/24/24:34:) Sodium Lvl: 139 mmol/L (11/24/24:34:00) Potassium Lvl: 3.6 mmol/L (11/24/24:34:) Chloride: 105 mmol/L (11/24/24:34:00) CO2: 30 mmol/L (11/24/24:34:00) AGAP: 8 mEq/L (11/24/24:34:00) Calcium Lvl: 8.9 mg/dL (11/24/24 17:34:00) Alk Phos: 91 Int._Unit/L (11/24/24 17:34:00) ALT: 9 Int._Unit/L (11/24/24 17:34:00) AST: 15 Int._Unit/L (11/24/24 17:34:00) Total Protein: 6.6 gm/dL (11/24/24 17:34:00) Albumin Lvl: 3.8 gm/dL (11/24/24 17:34:00) Globulin: 2.8 gm/dL (11/24/24 17:34:00) A/G Ratio: 1.4 (11/24/24 17:34:00) Bili Total: 0.6 mg/dL (11/24/24 17:34:00) Bili Direct: 0.1 mg/dL (11/24/24 17:34:00) Bili Indirect: 0.5 mg/dL (11/24/24 17:34:00) Lipase Lvl: 11 unit/L Low (11/24/24 17:34:00) Lactic Acid Lvl: 0.7 mmol/L (11/24/24 17:34:00) Troponin HS: 7.1 pg/mL Low (11/24/24 17:34:00) U Amph Scr: NEGATIVE (11/24/24 19:51:00) U Madhavi Scr: NEGATIVE (11/24/24 19:51:00) U Benzodia Scr: POSITIVE Abnormal (11/24/24 19:51:00) U Cannab Scr: NEGATIVE (11/24/24 19:51:00) U Cocaine Scr: NEGATIVE (11/24/24 19:51:00) U Opiate Scr: NEGATIVE (11/24/24 19:51:00) U PCP Scr: NEGATIVE (11/24/24 19:51:00) U Fentanyl: NEGATIVE (11/24/24 19:51:00) Ethanol Lvl: (more content not included)...[facility] HospitalComment on above:Result Comment: Electronically Signed By: Alec LUTHER DO\Date and Time Signed: 11/24/24 22:12 [id number] Hospital Discharge instructions Patient Education 10/29/2024 12:43:06 Chronic Obstructive Pulmonary Disease, Qoyx-dt-Vlod Chronic Obstructive Pulmonary Disease Chronic obstructive pulmonary disease (COPD) is a long-term (chronic) lung problem. When you have COPD, it is hard for air to get in and out of your lungs. Usually the condition gets worse over time, and your lungs will never return to normal. There are things you can do to keep yourself as healthy as possible. What are the causes? Smoking. This is the most common cause. Certain genes passed from parent to child (inherited). What increases the risk? Being exposed to secondhand smoke from cigarettes, pipes, or cigars. Being exposed to chemicals and other irritants, such as fumes and dust in the work environment. Having chronic lung conditions or infections. What are the signs or symptoms? Shortness of breath, especially during physical activity. A long-term cough with a large amount of thick mucus. Sometimes, the cough may not have any mucus (dry cough). Wheezing. Breathing quickly. Skin that looks clark or blue, especially in the fingers, toes, or lips. Feeling tired (fatigue). Weight loss. Chest tightness. Having infections often. Episodes when breathing symptoms become much worse (exacerbations). At the later stages of this disease, you may have swelling in the ankles, feet, or legs. How is this treated? Taking medicines. Quitting smoking, if you smoke. Rehabilitation. This includes steps to make your body work better. It may involve a team of specialists. Doing exercises. Making changes to your diet. Using oxygen. Lung surgery. Lung transplant. Comfort measures (palliative care). Follow these instructions at home: Medicines Take [id number] and prescription medicines only as told by your doctor. Talk to your doctor before taking any cough or allergy medicines. You may need to avoid medicines that cause your lungs to be dry. Lifestyle If you smoke, stop smoking. Smoking makes the problem worse. Do not smoke or use any products that contain nicotine or tobacco. If you need help quitting, ask your doctor. Avoid being around things that make your breathing worse. This may include smoke, chemicals, and fumes. Stay active, but remember to rest as well. Learn and use tips on how to manage stress and control your breathing. Make sure you get enough sleep. Most adults need at least 7 hours of sleep every night. Eat healthy foods. Eat smaller meals more often. Rest before meals. Controlled breathing Learn and use tips on how to control your breathing as told by your doctor. Try: Breathing in (inhaling) through your nose for 1 second. Then, pucker your lips and breath out (exhale) through your lips for 2 seconds. Putting one hand on your belly (abdomen). Breathe in slowly through your nose for 1 second. Your hand on your belly should move out. Pucker your lips and breathe out slowly through your lips. Your hand on your belly should move in as you breathe out. Controlled coughing Learn and use controlled coughing to clear mucus from your lungs. Follow these steps: 1.Lean your head a little forward. 2.Breathe in deeply. 3.Try to hold your breath for 3 seconds. 4.Keep your mouth slightly open while coughing 2 times. 5.Spit any mucus out into a tissue. 6.Rest and do the steps again 1 or 2 times as needed. General instructions Make sure you get all the shots (vaccines) that your doctor recommends. Ask your doctor about a flushot and a pneumonia shot. Use oxygen therapy and pulmonary rehabilitation if told by your doctor. If you need home oxygen therapy, ask your doctor if you should buy a tool to measure your oxygen level (oximeter). Make a COPD action plan with your doctor. This helps you to know what to do if you feel worse than usual. Manage any other conditions you have as told by your doctor. Avoid going outside when it is very hot, cold, or humid. Avoid people who have a sickness you can catch (contagious). Keep all follow-up visits. Contact a doctor if: You cough up more mucus than usual. There is a change in the color or thickness of the mucus. It is harder to breathe than usual. Your breathing is faster than usual. You have trouble sleeping. You need to use your medicines more often than usual. You have trouble doing your normal activities such as getting dressed or walking around the house. Get help right away if: You have shortness of breath while resting. You have shortness of breath that stops you from: ?Being able to talk. ?Doing normal activities. Your chest hurts for longer than 5 minutes. Your skin color is more blue than usual. Your pulse oximeter shows that you have low oxygen for longer than 5 minutes. You have a fever. You feel too tired to breathe normally. These symptoms may represent a serious problem that is an emergency. Do not wait to see if the symptoms will go away. Get medical help right away. Call your local emergency services (911 in the [place] Do not drive yourself to the hospital. Summary Chronic obstructive pulmonary disease (COPD) is a long-term lung problem. The way your lungs work will never return to normal. Usually the condition gets worse over time. There are things you can do to keep yourself as healthy as possible. Take mbrb-nix-tmpfwto and prescription medicines only as told by your doctor. If you smoke, stop. Smoking makes the problem worse. This information is not intended to replace advice given to you by your health care provider. Make sure you discuss any questions you have with your health care provider. Document Revised: 09/07/2021 Document Reviewed: 09/08/2021 [employer] Patient Education 2023 [employer]. Follow Up Care 10/29/2024 07:41:38 With:Amilcar Matthews PA-C Address: When:11/05/2024 09:30:00 Comments:The doctor's office cancelled this Tuesday appoinment. With:Fidencio POSEY, Dorie Jean Baptiste, [facility], [facility] Address: When:10/31/2024 14:30:00 [facility] 12-16-2024 Evaluation + Plan noteExtracted from: Title:Discharge Note Author:Edmund Klein DO Date:10/29/24 Discharge To, Anticipated II - Home with responsible caregiver Discharged to - Home with family care Prescriptions atorvastatin 80 mg Tab, 80 mg= 1 tab(s), Oral, Daily, 5 refills azithromycin 500 mg oral tablet, 500 mg= 1 tab(s), Oral, Daily carvedilol 12.5 mg Tab, 12.5 mg= 1 tab(s), Oral, BID, 2 refills Handicap Placard, 5 years., See Instructions isosorbide mononitrate 30 mg ER Tab, 30 mg= 1 tab(s), Oral, BID, 6 refills losartan 100 mg Tab, 100 mg= 1 tab(s), Oral, Daily, 5 refills nitroglycerin 0.4 mg sublingual Tab, 0.4 mg= 1 tab(s), SubLingual, q5min, PRN, 6 refills prasugrel 10 mg Tab, 10 mg= 1 tab(s), Oral, Daily, 5 refills predniSONE 20 mg Tab, 40 mg= 2 tab(s), Oral, Daily Ranexa 500 mg Tab-ER, 500 mg= 1 [...] tab(s), Oral, Once a day (at bedtime) ZyPREXA 5 mg Tab, 5 mg= 1 tab(s), Oral, Once a day (at bedtime) With When Contact Information Fidencio POSEY, Dorie Jean Baptiste, [facility], [facility] Additional Instructions: Byron ZHANG, Amilcar Abbott Within 1 week Additional Instructions: Call for followup appointment Chronic Obstructive Pulmonary Disease, [id number] Extracted from: Title:Consult Note Author:Zulema POSEY, Clement Archibald ate:10/29/24 Chest pain in a patient with known history of CAD. Clearly noncardiac/musculoskeletal. No further cardiac workup is indicated. 1. COPD exacerbation (J44.1: Chronic obstructive pulmonary disease with (acute) exacerbation) 2. Chest pain (R07.9: Chest pain, unspecified) 3. CAD (coronary artery disease) (I25.10: Atherosclerotic heart disease of [place] coronary artery without angina pectoris) 4. HLD (hyperlipidemia) (E78.5: Hyperlipidemia, unspecified) 5. HTN (hypertension), benign (I10: Essential (primary) hypertension) 6. RLS (restless legs syndrome) (G25.81: Restless legs syndrome) 7. Anxiety and depression (F41.9: Anxiety disorder, unspecified) 8. Primary insomnia (F51.01: Primary insomnia) 9. Tobacco abuse (Z72.0: Tobacco use) 10. Obese (E66.9: Obesity, unspecified) Depression, unspecified (F32.A: Depression, unspecified) Extracted from: Title:Admission H & P Author:Edmund Klein DO Date:10/29/24 Patient will be admitted und er observation status due to estimated length of stay less than 2 midnights. All images, labs, EKGs reviewed DVT PPx-PAS bilaterally Diet NPO in case stress test, then cardiac diet CODE STATUS/full code 1. COPD exacerbation (J44.1: Chronic obstructive pulmonary disease with (acute) exacerbation) DuoNebs Azithromycin Steroids for short burst Pulmonary toilet Ordered: Initial Hospital Care/Day Moderate 55 Minutes [id number] 2. Chest pain (R07.9: Chest pain, unspecified) History of CAD Consult cardio Check echo Telemetry Ranexa Possible stress test, will discuss with cardiology 3. CAD (coronary artery disease) (I25.10: Atherosclerotic heart disease of [place] coronary artery without angina pectoris) Statin Aspirin Coreg Isosorbide Effient 4. HLD (hyperlipidemia) (E78.5: Hyperlipidemia, unspecified) Statin 5. HTN (hypertension), benign (I10: Essential (primary) hypertension) Monitor Coreg Losartan 6. RLS (restless legs syndrome) (G25.81: Restless legs syndrome) Ropinirole 7. Anxiety and depression (F41.9: Anxiety disorder, unspecified) As needed Xanax Zyprexa Trazodone Effexor await for med hx 8. Primary insomnia (F51.01: Primary insomnia) Seroquel Trazodone Lamictal await for med hx 9. Tobacco abuse (Z72.0: Tobacco use) Educate patient on smoking cessation 10. Obese (E66.9: Obesity, unspecified) BMI 30.33 Due to comorbidities patient would benefit from weight loss. Depression, unspecified (F32.A: Depression, unspecified) tx as above Orders: acetaminophen, 650 mg = 2 tab(s), Tab, Oral, q6hr PRN Pain, Routine, Start date 10/29/24 9:59:00 EST albuterol-ipratropium, 3 mL, Soln-Inh, Inhalation, QID, Routine, Start date 10/29/24 12:00:00 EST azithromycin, 500 mg = 2 tab(s), Tab, Oral, Daily, Routine, Start date 10/30/24 9:00:00 EST hydrALAZINE, 10 mg = 0.5 mL, Injection, IV Push, q6hr PRN Other (see comment), Routine, Start date 10/29/24 9:59:00 EST morphine, 2 mg = 1 mL, Injection, IV Push, q4hr PRN Pain for 5 day(s), Stop date 11/03/24 9:58:00 EST, Routine, Start date 10/29/24 9:59:00 EST, 10/29/24 9:59:00 EST ondansetron, 4 mg = 2 mL, Injection, IV Push, q6hr PRN Nausea, Routine, Start date 10/29/24 9:59:00 EST, 10/29/24 9:59:00 EST predniSONE, 40 mg = 2 tab(s), Tab, Oral, Daily for 3 day(s), Stop date 11/02/24 8:59:00 EST, Routine, Start date 10/30/24 9:00:00 EST, 10/29/24 10:00:00 EST senna, 17.2 mg = 2 tab(s), Tab, Oral, BID PRN Other (see comment), Routine, Start date 10/29/24 9:59:00 EST, 10/29/24 9:59:00 EST Activity As Tolerated Basic Metabolic Panel Below the Knee Intermittent Pneumatic Compression Device Cardiac Monitoring CBC w/ Auto Diff Consult to Cardiology Echo Transthoracic Complete Incentive Spirometry NPO Diet Pulse Oximetry Resuscitation Status - Full Vital Signs Weight Extracted from: Title:ED Note Author:Lawrence Elise DO Date: Chest pain (R07.9: Chest kaylie n, unspecified) COPD exacerbation (J44.1: Chronic obstructive pulmonary disease with (acute) exacerbation) Orders: morphine, 4 mg = 1 mL, Injection, IV Push, Once, Stop date 10/29/24 8:01:00 EST, STAT, Start date 10/29/24 8:01:00 EST, 10/29/24 8:01:00 EST ondansetron, 4 mg = 2 mL, Injection, IV Push, Once, Stop date 10/29/24 8:01:00 EST, STAT, Start date 10/29/24 8:01:00 EST, 10/29/24 8:01:00 EST Basic Metabolic Panel CBC w/ Auto Diff D-Dimer ECG 12 Lead Adult ED Cardiac Monitoring ED Physician consult Hospitalist for continued care eGFR Extra SST Tube Hepatic Function Panel Lipase Level Oxygen Saturation Oxygen Therapy PT & PTT Saline Lock Insert Troponin 0 Hr. Troponin 1 Hr. XR Chest Single View Future Appointments Appointment Date:10/31/2024 02:30:00 PM Scheduled Provider:Dorie Luis MD Location:[facility] Appointment Type: ER/Hospital Follow Up Appointment Date:11/05/2024 09:30:00 AM Scheduled Provider:Amilcar Matthews [facility]-C [facility]:Cardiology Follow Up (FT) Appointment Date:12/03/2024 11:00:00 AM Scheduled Provider:Lexis [facility]oe [facility]Vascular New Patient (FT) Appointment Date:01/07/2025 01:00:00 PM Scheduled Provider:Dorie Luis MD Location:[facility] Appointment Type: Open Appointment Date:06/18/2025 02:30:00 PM Scheduled Provider: Location:[facility] Appointment Type: Medicare Wellness Subsequent Future Scheduled Tests Laboratory* B-Type Natriuretic Peptide 12/01/23 * Basic Metabolic Panel 12/01/23 [facility] 12-16-2024 NotePatient Education - Text Pulmonary Medicine Chronic Obstructive Pulmonary Disease Chronic obstructive pulmonary disease (COPD) is a long-term (chronic) lung problem. When you have COPD, it is hard for air to get in and out of your lungs. Usually the condition gets worse over time, and your lungs will never return to normal. There are things you can do to keep yourself as healthy as possible. What are the causes? Smoking. This is the most common cause. ??? Certain genes passed from parent to child (inherited). What increases the risk? Being exposed to secondhand smoke from cigarettes, pipes, or cigars. ??? Being exposed to chemicals and other irritants, such as fumes and dust in the work environment. ??? Having chronic lung conditions or infections. What are the signs or symptoms? Shortness of breath, especially during physical activity. ??? A long-term cough with a large amount of thick mucus. Sometimes, the cough may not have any mucus (dry cough). ??? Wheezing. ??? Breathing quickly. ??? Skin that looks clark or blue, especially in the fingers, toes, or lips. ??? Feeling tired (fatigue). ??? Weight loss. ??? Chest tightness. ??? Having infections often. ??? Episodes when breathing symptoms become much worse (exacerbations). At the later stages of this disease, you may have swelling in the ankles, feet, or legs. How is this treated? Taking medicines. ??? Quitting smoking, if you smoke. ??? Rehabilitation. This includes steps to make your body work better. It may involve a team of specialists. ??? Doing exercises. ??? Making changes to your diet. ??? Using oxygen. ??? Lung surgery. ??? Lung transplant. ??? Comfort measures (palliative care). Follow these instructions at home: Medicines ??? Take wmji-dxn-kwlxnyg and prescription medicines only as told by your doctor. ??? Talk to your doctor before taking any cough or allergy medicines. You may need to avoid medicines that cause your lungs to be dry. Lifestyle ??? If you smoke, stop smoking. Smoking makes the problem worse. ??? Do not smoke or use any products that contain nicotine or tobacco. If you need help quitting, ask your doctor. ??? Avoid being around things that make your breathing worse. This may include smoke, chemicals, and fumes. ??? Stay active, but remember to rest as well. ??? Learn and use tips on how to manage stress and control your breathing. ??? Make sure you get enough sleep. Most adults need at least 7 hours of sleep every night. ??? Eat healthy foods. Eat smaller meals more often. Rest before meals. Controlled breathing Learn and use tips on how to control your breathing as told by your doctor. Try: ??? Breathing in (inhaling) through your nose for 1 second. Then, pucker your lips and breath out (exhale) through your lips for 2 seconds. ??? Putting one hand on your belly (abdomen). Breathe in slowly through your nose for 1 second. Your hand on your belly should move out. Pucker your lips and breathe out slowly through your lips. Your hand on your belly should move in as you breathe out. Controlled coughing Learn and use controlled coughing to clear mucus from your lungs. Follow these steps: 1. Lean your head a little forward. 2. Breathe in deeply. 3. Try to hold your breath for 3 seconds. 4. Keep your mouth slightly open while coughing 2 times. 5. Spit any mucus out into a tissue. 6. Rest and do the steps again 1 or 2 times as needed. General instructions ??? Make sure you get all the shots (vaccines) that your doctor recommends. Ask your doctor about aflu shot and a pneumonia shot. ??? Use oxygen therapy and pulmonary rehabilitation if told by your doctor. If you need home oxygentherapy, ask your doctor if you should buy a tool to measure your oxygen level (oximeter). ??? Make a COPD action plan with your doctor. This helps you to know what to do if you feel worse than usual. ??? Manage any other conditions you have as told by your doctor. ??? Avoid going outside when it is very hot, cold, or humid. ??? Avoid people who have a sickness you can catch (contagious). ??? Keep all follow-up visits. Contact a doctor if: ??? You cough up more mucus than usual. ??? There is a change in the color or thickness of the mucus. ??? It is harder to breathe than usual. ??? Your breathing is faster than usual. ??? You have trouble sleeping. ??? You need to use your medicines more often than usual. ??? You have trouble doing your normal activities such as getting dressed or walking around the house. Get help right away if: ??? You have shortness of breath while resting. ??? You have shortness of breath that stops you from: ? Being able to talk. ? Doing normal activities. ??? Your chest hurts for longer than 5 minutes. ??? Your skin color is more blue than usual. ??? Your pulse oximeter shows that you h (more content not included)...[facility]12-16-2024 NoteDischarge Summary Admission and Discharge Information Admitting Physician - Edmund Klein DO Admitting Diagnoses: 1. COPD exacerbation, 10/29/2024 2. Chest pain, 10/29/2024 Costochondritis, 10/29/2024 Discharge Order Date Discharge Patient - Ordered -- 10/29/24 12:49:00 EST, Costochondritis Discharge Diagnoses 1. COPD exacerbation, 10/29/2024 2. Chest pain, 10/29/2024 3. CAD (coronary artery disease), 10/29/2024 4. HLD (hyperlipidemia), 10/29/2024 5. HTN (hypertension), benign, 10/29/2024 6. RLS (restless legs syndrome), 10/29/2024 7. Anxiety and depression, 10/29/2024 8. Primary insomnia, 10/29/2024 9. Tobacco abuse, 10/29/2024 10. Obese, 10/29/2024 Chest pain, 10/29/2024 Costochondritis, 10/29/2024 Depression, unspecified, 10/29/2024 Nausea, 10/29/2024 Shortness of breath, 10/29/2024 Procedure History PCI - Percutaneous coronary intervention (07/09/2023), Angioplasty, Gallbladder, Hysterectomy. Hospital Course 63-year-old female with past medical history of CAD, [place] [facility] [facility] [place] [facility], COPD, anxiety/depression, hypertension, RLS, HLD, presented to ER the morning of10/29 due to chest pain occurring at approximately 4 AM. Patient states chest pain woke her up. Patient describes chest pain as pressure. Patient states lasted for about 2 hours. Patient stated nothing made it worse and nothing made it better. Patient denies radiating of chest pain. Patient states she took nitro several times with little effect. Patient states she had mild shortness of breath with chest pain. Patient states she still smokes. Patient follows with [facility]. EMS didgive patient breathing treatment seem to help. In ED lab work was relatively benign. Troponin 7.7. UA negative. Chest x-ray negative. Patient was given steroids as well as another breathing treatment. Patient also given morphine and Zofran. EKG did not show any acute ischemic changes. EKG appeared similar to previous ones. D-dimer was done which was negative. Patient was admitted for further workup and treatment. Second troponin came back negative as well. Cardiology was consulted and followed patient. Cardiology saw patient and believed chest pain was muscular skeletal likely costochondritis due to tenderness with palpation. Patient had been coughing for a few days prior. I did explain this to patient who agrees and accepts plan of treatment. This made sense due to patient did receive steroids which seemed to help symptoms. Will treat patient for COPD exacerbation. Patient agrees and accept plan of treatment. Patient stable at discharge. Medication changes Azithromycin for 4 days to complete 5-day course Prednisone 40 mg daily to complete 5-day course Follow-up appointments Cardiology 2 to 4 weeks PCP 5 to 7 days Discharge time 35 minutes which included extensive conversation with patient about diagnosis and treatment plan. Along with communication with consultants, nursing, case management. Services Consulted Consult to Cardiology - Ordered -- 10/29/24 9:03:00 EST, CP, hx of CAD, follows [place] [facility] [place], Consult and Co-manage, [facility] V[facility] Physical Exam Vitals & Measurements T: 36.8 ???C(Axillary) TMIN: 36.8 ???C(Axillary) TMAX: 37.0 ???C(Oral) HR: 82(Monitored) RR: 18 BP:137/79 SpO2: 98% HT: 160.02 cm WT: 76.9 kg General: NAD, Skin: Warm, dry Head: No trauma, normocephalic Neck: Trachea midline, supple, negative for JVD Eye: Conjunctive are clear, clear sclera , EOMI ENMT: oral mucosa moist, no lesions or edema nose or external ears Cardiovascular: Regular rate and rhythm, S1-S2 present, negative for murmurs rubs or gallops Respiratory: Lungs clear to auscultation, bilateral symmetric movement, mild expiratory wheezing Chest wall: no deformity. Mild tenderness to palpation left anterior chest is not the same pain that she experienced this morning Gastrointestinal: Abdomen soft, bowel sounds present, nontender to palpation Back: No tenderness Extremities: Range of motion intact, no edema Neurological: awake, alert, speech normal, cranial nerves II through XII intact, no sensory defects, alert and oriented x3 Psychiatric: cooperative, affect appropriate for age, pleasant Tests Performed BMP -- Results Pending -- CBC w/ Auto Diff -- Results Pending -- XR Chest Single View Please visit your patient portal for your results or contact your primary care physician. Discharge Plan Discharge Disposition Discharge To, Anticipated II - Home with responsible caregiver Discharged to - Home with family care Discharge Medication List Prescriptions atorvastatin 80 mg Tab, 80 mg= 1 tab(s), Oral, Daily, 5 refills azithromycin 500 mg oral tablet, 500 mg= 1 tab(s), Oral, Daily carvedilol 12.5 mg Tab, 12.5 mg= 1 tab(s), Oral, BID, 2 refills Handicap Placard, 5 years., See Instructions isosorbide mononitrate 30 mg ER Tab, 30 mg= 1 tab(s), Oral, BID, 6 refills lo (more content not included)...[facility] Result Comment: Electronically Signed By: Edmund Klein DO\.br\Date and Time Signed: 10/29/24 12:52 [id number] NoteConsultation Note Chief Complaint Pt presents to ED via EMS with complaints of midsternal CP onset around 0400 today. pt administeredx3 nitro with minimal relief. EMS admin x1 nitro, breathing tx and 324 ASA. 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 She described the pain as feelings of constant discomfort in her central chest. It is different from the pain at her index presentation with ACS in June 2023 which was burning by description. At the moment of my exam, the patient continues to have a chest discomfort. ECG showed normal sinus rhythm and borderline repolarization abnormalities, essentially unchanged from prior. Troponins are serially negative. Review of Systems ROS - Provider Constitutional: no fever, no chills, no fatigue Skin:no rash, no lesions ENMT: no ear pain, no sore throat, no congestion. Respiratory: no shortness of breath, no cough, no wheezing. Cardiovascular: yes chest pain, no palpitations, no edema. Gastrointestinal: no nausea, no vomiting, no diarrhea, no GI bleeding. Genitourinary: no dysuria, no frequencyno hematuria Musculoskeletal: no back pain, no trauma. Neurologic: no headache, no dizziness, no numbness, no weakness. Psychiatric: no sleeping problems, no irritability, no mood swings/depression. Heme/Lymph: no bleeding tendency, no bruising tendency, no petechiae, Allergy/Immuno logic: no seasonal allergies, no food allergies, no recurrent infections Physical Exam Vitals & Measurements T: 37.0 ???C(Oral) TMIN: 36.8 ???C(Oral) TMAX: 37.0 ???C(Oral) HR: 79(Peripheral) RR: 14 BP: 153/83SpO2: 93% HT: 160.02 cm WT: 16.9 kg General: alert, no acute distress Neck: Supple, noJVD nocarotid bruit Cardiovascular: regular rate and rhythm, no murmur normal peripheral perfusion. Central/lower chestis tender to touch with reproduction of the presenting symptom Respiratory: Lungs CTAB, respirations non labored Extremities: no edema left lower extremity. no edema right lower extremity Neurological: oriented x 4, LOC appropriate for age, speech normal Skin: Warm, dry, intact- no rash or concerning lesions Assessment/Plan Chest pain in a patient with known history of CAD. Clearly noncardiac/musculoskeletal. No further cardiac workup is indicated. 1. COPD exacerbation (J44.1: Chronic obstructive pulmonary disease with (acute) exacerbation) 2. Chest pain (R07.9: Chest pain, unspecified) 3. CAD (coronary artery disease) (I25.10: Atherosclerotic heart disease of [place] coronary artery without angina pectoris) 4. HLD (hyperlipidemia) (E78.5: Hyperlipidemia, unspecified) 5. HTN (hypertension), benign (I10: Essential (primary) hypertension) 6. RLS (restless legs syndrome) (G25.81: Restless legs syndrome) 7. Anxiety and depression (F41.9: Anxiety disorder, unspecified) 8. Primary insomnia (F51.01: Primary insomnia) 9. Tobacco abuse (Z72.0: Tobacco use) 10. Obese (E66.9: Obesity, unspecified) Depression, unspecified (F32.A: Depression, unspecified) Problem List/Past Medical History Ongoing Anxiety and depression Atherosclerosis of aorta Back pain Chest pain syndrome COPD (chronic obstructive pulmonary disease) Current smoker Fatigue History of ST elevation myocardial infarction (STEMI) History of total abdominal hysterectomy HTN (hypertension), benign Major depressive disorder, recurrent, moderate Polyneuropathy Primary insomnia RLS (restless legs syndrome) Sinus infection Walker as ambulation aid Historical Acute ST elevation myocardial infarction (STEMI) Procedure/Surgical History PCI - Percutaneous coronary intervention (07/09/2023), Angioplasty, Gallbladder, Hysterectomy. Medications Inpatient acetaminophen 325 mg Tab, 650 mg= 2 tab(s), Oral, q6hr, PRN alprazolam 1 mg Tab, 1 mg= 1 tab(s), Oral, Once azithromycin 250 mg Tab, 500 mg= 2 tab(s), Oral, Daily DuoNeb 2.5 mg-0.5 mg/3 mL Soln-Inh, 3 mL, Inhalation, QID hydrALAZINE 20 mg/mL Inj, 10 mg= 0.5 mL, IV Push, q6hr, PRN morphine 2 mg/mL Inj, 2 mg= 1 mL, IV Push, q4hr, PRN predniSONE 20 mg Tab, 40 mg= 2 tab(s), Oral, Daily Senokot 8.6 mg Tab, 17.2 mg= 2 tab(s), Oral, BID, PRN Zofran 4 mg/2 mL Injection, 4 mg= 2 mL, IV Push, q6hr, PRN Home acetaminophen 325 mg Tab, 650 mg= 2 tab(s), Oral, q6hr, PRN Albuterol (Eqv-ProAir HFA) 90 mcg/inh inhalation aerosol, 2 puff(s), Inhalation, q4hr, PRN alprazolam 1 mg Tab, 1 mg= 1 tab(s), Oral, QID, PRN aspirin 81 mg Oral EC Tab, 81 mg= 1 tab(s), Oral, Daily atorvastatin 80 mg Tab, 80 mg= 1 tab(s), Oral, Daily, 5 refills Breztri Aerosphere, 2 puff(s), Inhalation, BID carvedilol 12.5 mg Tab, 12.5 mg= 1 tab(s), Oral, BID, 2 refills Effexor XR 150 mg (more content not included)...[facility] Comment on above:Result Comment: Electronically Signed By: Zulema POSEY, Clement Archibald\.br\Date and Time Signed: 10/29/24 12:01 [id number] NoteHistory and Physical Chief Complaint Pt presents to ED via EMS with complaints of midsternal CP onset around 0400 today. pt administeredx3 nitro with minimal relief. EMS admin x1 nitro, breathing tx and 324 ASA. History of Present Illness 63-year-old female with past medical history of CAD, [place] [facility] [place] stent placed [facility] COPD, anxiety/depression, hypertension, RLS, HLD, presented to ER the morning of10/29 due to chest pain occurring at approximately 4 AM. Patient states chest pain woke her up. Patient describes chest pain as pressure. Patient states lasted for about 2 hours. Patient stated nothing made it worse and nothing made it better. Patient denies radiating of chest pain. Patient states she took nitro several times with little effect. Patient states she had mild shortness of breath with chest pain. Patient states she still smokes. Patient follows with [facility] cardiology. EMS didgive patient breathing treatment seem to help. In ED lab work was relatively benign. Troponin 7.7. UA negative. Chest x-ray negative. Patient was given steroids as well as another breathing treatment. Patient also given morphine and Zofran. EKG did not show any acute ischemic changes. EKG appeared similar to previous ones. D-dimer was done which was negative. Discussed CODE STATUS with patient would like to be full code. Review of Systems Scoring Taylor Fall Risk Score: 35 (10/29/24) Physical Exam Vitals & Measurements T: 37.0 ???C(Oral) TMIN: 36.8 ???C(Oral) TMAX: 37.0 ???C(Oral) HR: 79(Peripheral) RR: 14 BP: 153/83SpO2: 93% HT: 160.02 cm WT: 16.9 kg General: NAD, Skin: Warm, dry Head: No trauma, normocephalic Neck: Trachea midline, supple, negative for JVD Eye: Conjunctive are clear, clear sclera , EOMI ENMT: oral mucosa moist, no lesions or edema nose or external ears Cardiovascular: Regular rate and rhythm, S1-S2 present, negative for murmurs rubs or gallops Respiratory: Lungs clear to auscultation, bilateral symmetric movement, mild expiratory wheezing Chest wall: no deformity. Mild tenderness to palpation left anterior chest is not the same pain that she experienced this morning Gastrointestinal: Abdomen soft, bowel sounds present, nontender to palpation Back: No tenderness Extremities: Range of motion intact, no edema Neurological: awake, alert, speech normal, cranial nerves II through XII intact, no sensory defects, alert and oriented x3 Psychiatric: cooperative, affect appropriate for age, pleasant Lab Results WBC: 4.2 E9/L (10/29/24 07:53:00) RBC: 4.4 E12/L (10/29/24 07:53:00) HGB: 14.7 gm/dL (10/29/24 07:53:00) Hct: 42.7 % (10/29/24 07:53:00) MCV: 97.5 fL (10/29/24 07:53:00) MCH: 33.5 pg (10/29/24 07:53:00) MCHC: 34.4 gm/dL (10/29/24 07:53:00) RDW: 14.2 % (10/29/24 07:53:00) Platelet: 170 E9/L (10/29/24 07:53:00) MPV: 6.9 fL (10/29/24 07:53:00) Neutro Auto: 45.7 % (10/29/24 07:53:00) Lymph Auto: 42.1 % (10/29/24 07:53:00) [place] Auto: 9 % (10/29/24 07:53:00) Eos Auto: 2.3 % (10/29/24 07:53:00) Basophil Auto: 0.9 % (10/29/24 07:53:00) Neutro Absolute: 1.9 E9/L Low (10/29/24 07:53:00) Lymph Absolute: 1.8 E9/L (10/29/24 07:53:00) [place] Absolute: 0.4 E9/L (10/29/24 07:53:00) Eos Absolute: 0.1 E9/L (10/29/24 07:53:00) Basophil Absolute: 0 E9/L (10/29/24 07:53:00) PT: 10.7 second(s) (10/29/24 07:53:00) INR: 0.96 (10/29/24 07:53:00) PTT: 32.8 second(s) (10/29/24 07:53:00) D-Dimer: 447 ng/mL FEU (10/29/24 07:53:00) Glucose Lvl: 108 mg/dL (10/29/24 07:53:00) BUN: 18 mg/dL (10/29/24 07:53:00) Creatinine: 0.6 mg/dL (10/29/24 07:53:00) eGFR: 99 mL/min/1.73 m2 (10/29/24 07:53:00) BUN/Creat Ratio: 30 High (10/29/24 07:53:00) Sodium Lvl: 140 mmol/L (10/29/24 07:53:00) Potassium Lvl: 3.7 mmol/L (10/29/24 07:53:00) Chloride: 106 mmol/L (10/29/24 07:53:00) CO2: 26 mmol/L (10/29/24 07:53:00) AGAP: 12 mEq/L (10/29/24 07:53:00) Calcium Lvl: 9 mg/dL (10/29/24 07:53:00) Alk Phos: 102 Int._Unit/L High (10/29/24 07:53:00) ALT: 13 Int._Unit/L (10/29/24 07:53:00) AST: 14 Int._Unit/L (10/29/24 07:53:00) Total Protein: 6.9 gm/dL (10/29/24 07:53:00) Albumin Lvl: 4 gm/dL (10/29/24 07:53:00) Globulin: 2.9 gm/dL (10/29/24 07:53:00) A/G Ratio: 1.4 (10/29/24 07:53:00) Bili Total: 0.5 mg/dL (10/29/24 07:53:00) Bili Direct: 0.1 mg/dL (10/29/24 07:53:00) Bili Indirect: 0.4 mg/dL (10/29/24 07:53:00) Lipase Lvl: 21 unit/L (10/29/24 07:53:00) Troponin HS: 7.2 pg/mL Low (10/29/24 09:12:00) Assessment/Plan Patient will be admitted under observation status due to estimated length of stay less than 2 midnights. All images, labs, EKGs reviewed DVT PPx-PAS bilaterally Diet???NPO in case stress test, then cardiac diet CODE STATUS/full code 1. COPD exacerbation (J44.1: Chronic obstructive pulmonary disease with (acute) exacerbation) DuoNebs Azithromycin Steroids for short burst Pulmonary toilet Ordered: Initial Hospital Care/Day Moderate 55 Minutes [id number] (more content not included)...[facility]:Result Comment: Electronically Signed By: Edmund Klein DO\.br\Date and Time Signed: 10/29/24 10:23 [id number] Hospital Discharge instructions Patient Education 10/10/2024 17:02:46 Acute Back Pain, Adult Acute Back Pain, Adult Acute back pain is sudden and usually short-lived. It is often caused by an injury to the muscles and tissues in the back. The injury may result from: A muscle, tendon, or ligament getting overstretched or torn. Ligaments are tissues that connect bones to each other. Lifting something improperly can cause a back strain. Wear and tear (degeneration) of the spinal disks. Spinal disks are circular tissue that provide cushioning between the bones of the spine (vertebrae). Twisting motions, such as while playing sports or doing yard work. A hit to the back. Arthritis. You may have a physical exam, lab tests, and imaging tests to find the cause of your pain. Acute back pain usually goes away with rest and home care. Follow these instructions at home: Managing pain, stiffness, and swelling Take rxmy-kdu-xlyxmqg and prescription medicines only as told by your health care provider. Treatment may include medicines for pain and inflammation that are taken by mouth or applied to the skin, or muscle relaxants. Your health care provider may recommend applying ice during the first 24 48 hours after your pain starts. To do this: ?Put ice in a plastic bag. ?Place a towel between your skin and the bag. ?Leave the ice on for 20 minutes, 2 3 times a day. ?Remove the ice if your skin turns bright red. This is very important. If you cannot feel pain, heat, or cold, you have a greater risk of damage to the area. If directed, apply heat to the affected area as often as told by your health care provider. Use theheat source that your health care provider recommends, such as a moist heat pack or a heating pad. ?Place a towel between your skin and the heat source. ?Leave the heat on for 20 30 minutes. ?Remove the heat if your skin turns bright red. This is especially important if you are unable to feel pain, heat, or cold. You have a greater risk of getting burned. Activity Do not stay in bed. Staying in bed for more than 1 2 days can delay your recovery. Sit up and stand up straight. Avoid leaning forward when you sit or hunching over when you stand. ?If you work at a desk, sit close to it so you do not need to lean over. Keep your chin tucked in. Keep your neck drawn back, and keep your elbows bent at a 90-degree angle (right angle). ?Sit high and close to the steering wheel when you drive. Add lower back (lumbar) support to your car seat, if needed. Take short walks on even surfaces as soon as you are able. Try to increase the length of time you walk each day. Do not sit, drive, or wine sales representative one place for more than 30 minutes at a time. Sitting or standing for long periods of time can put stress on your back. Do not drive or use heavy machinery while taking prescription pain medicine. Use proper lifting techniques. When you bend and lift, use positions that put less stress on your back: ?Bend your knees. ?Keep the load close to your body. ?Avoid twisting. Exercise regularly as told by your health care provider. Exercising helps your back heal faster andhelps prevent back injuries by keeping muscles strong and flexible. Work with a physical therapist to make a safe exercise program, as recommended by your health care provider. Do any exercises as told by your physical therapist. Lifestyle Maintain a healthy weight. Extra weight puts stress on your back and makes it difficult to have good posture. Avoid activities or situations that make you feel anxious or stressed. Stress and anxiety increase muscle tension and can make back pain worse. Learn ways to manage anxiety and stress, such as through exercise. General instructions Sleep on a firm mattress in a comfortable position. Try lying on your side with your knees slightlybent. If you lie on your back, put a pillow under your knees. Keep your head and neck in a straight line with your spine (neutral position) when using electronicequipment like smartphones or pads. To do this: ?Raise your smartphone or pad to look at it instead of bending your head or neck to look down. ?Put the smartphone or pad at the level of your face while looking at the screen. Follow your treatment plan as told by your health care provider. This may include: ?Cognitive or behavioral therapy. ?Acupuncture or massage therapy. ?Meditation or yoga. Contact a health care provider if: You have pain that is not relieved with rest or medicine. You have increasing pain going down into your legs or buttocks. Your pain does not improve after 2 weeks. You have pain at night. You lose weight without trying. You have a fever or chills. You develop nausea or vomiting. You develop abdominal pain. Get help right away if: You develop new bowel or bladder control problems. You have unusual weakness or numbness in your arms or legs. You feel faint. These symptoms may represent a serious problem that is an emergency. Do not wait to see if the symptoms will go away. Get medical help right away. Call your local emergency services (911 in the [place] Do not drive yourself to the hospital. Summary Acute back pain is sudden and usually short-lived. Use proper lifting techniques. When you bend and lift, use positions that put less stress on your back. Take dnjp-uex-uoofaur and prescription medicines only as told by your health care provider, and apply heat or ice as told. This information is not intended to replace advice given to you by your health care provider. Make sure you discuss any questions you have with your health care provider. Document Revised: 01/22/2022 Document Reviewed: 01/22/2022 [employer] Patient Education 2023 [employer]. Follow Up Care 10/10/2024 13:12:36 With:Dorie Luis Address:Unknown When:10/13/2024 17:00:54 Comments:Call the office of your primary care doctor to arrange for follow-up within the above-stated timeframe. Follow-up with your primary care doctor about this ED visit. You should review your labs, imaging, and diagnoses from this ED visit with your primary care physician. There are occasionally non-emergent findings that require additional follow-up after your ED visit. If you were prescribed medications you should discuss possible side-effects and drug interactions with your pharmacist. Call 911 or go to the nearest Emergency Department if you develop any new or worsening symptoms.Seek immediate medical attention if you develop: increasing pain, numbness, tingling, weakness, loss of motion inyour arms or legs, loss of control of your urine or stool, fever, abdominal pain, chest pain, shortness of breath, or any new or worsening symptoms. [facility] 11-27-2024 NoteED Patient Education Note Orthopedics Acute Back Pain, Adult Acute back pain is sudden and usually short-lived. It is often caused by an injury to the muscles and tissues in the back. The injury may result from: ??? A muscle, tendon, or ligament getting overstretched or torn. Ligaments are tissues that connectbones to each other. Lifting something improperly can cause a back strain. ??? Wear and tear (degeneration) of the spinal disks. Spinal disks are circular tissue that providecushioning between the bones of the spine (vertebrae). ??? Twisting motions, such as while playing sports or doing yard work. ??? A hit to the back. ??? Arthritis. You may have a physical exam, lab tests, and imaging tests to find the cause of your pain. Acute back pain usually goes away with rest and home care. Follow these instructions at home: Managing pain, stiffness, and swelling ??? Take dhek-ifx-ufxygsy and prescription medicines only as told by your health care provider. Treatment may include medicines for pain and inflammation that are taken by mouth or applied to the skin, or muscle relaxants. ??? Your health care provider may recommend applying ice during the first 24?48 hours after your pain starts. To do this: ? Put ice in a plastic bag. ? Place a towel between your skin and the bag. ? Leave the ice on for 20 minutes, 2?3 times a day. ? Remove the ice if your skin turns bright red. This is very important. If you cannot feel pain, heat, or cold, you have a greater risk of damage to the area. ??? If directed, apply heat to the affected area as often as told by your health care provider. Usethe heat source that your health care provider recommends, such as a moist heat pack or a heating pad. ? Place a towel between your skin and the heat source. ? Leave the heat on for 20?30 minutes. ? Remove the heat if your skin turns bright red. This is especially important if you are unable to feel pain, heat, or cold. You have a greater risk of getting burned. Activity ??? Do not stay in bed. Staying in bed for more than 1?2 days can delay your recovery. ??? Sit up and stand up straight. Avoid leaning forward when you sit or hunching over when you stand. ? If you work at a desk, sit close to it so you do not need to lean over. Keep your chin tucked in.Keep your neck drawn back, and keep your elbows bent at a 90-degree angle (right angle). ? Sit high and close to the steering wheel when you drive. Add lower back (lumbar) support to your car seat, if needed. ??? Take short walks on even surfaces as soon as you are able. Try to increase the length of time you walk each day. ??? Do not sit, drive, or wine sales representative one place for more than 30 minutes at a time. Sitting or standing for long periods of time can put stress on your back. ??? Do not drive or use heavy machinery while taking prescription pain medicine. ??? Use proper lifting techniques. When you bend and lift, use positions that put less stress on your back: ? Bend your knees. ? Keep the load close to your body. ? Avoid twisting. ??? Exercise regularly as told by your health care provider. Exercising helps your back heal fasterand helps prevent back injuries by keeping muscles strong and flexible. ??? Work with a physical therapist to make a safe exercise program, as recommended by your health care provider. Do any exercises as told by your physical therapist. Lifestyle ??? Maintain a healthy weight. Extra weight puts stress on your back and makes it difficult to havegood posture. ??? Avoid activities or situations that make you feel anxious or stressed. Stress and anxiety increase muscle tension and can make back pain worse. Learn ways to manage anxiety and stress, such as through exercise. General instructions ??? Sleep on a firm mattress in a comfortable position. Try lying on your side with your knees slightly bent. If you lie on your back, put a pillow under your knees. ??? Keep your head and neck in a straight line with your spine (neutral position) when using electronic equipment like smartphones or pads. To do this: ? Raise your smartphone or pad to look at it instead of bending your head or neck to look down. ? Put the smartphone or pad at the level of your face while looking at the screen. ??? Follow your treatment plan as told by your health care provider. This may include: ? Cognitive or behavioral therapy. ? Acupuncture or massage therapy. ? Meditation or yoga. Contact a health care provider if: ??? You have pain that is not relieved with rest or medicine. ??? You have increasing pain going down into your legs or buttocks. ??? Your pain does not improve after 2 weeks. ??? You have pain at night. ??? You lose weight without trying. ??? You have a fever or chills. ??? You develop nausea or vomiting. ??? You develop abdominal pain. Get help right away if: ??? You develop new bowel or bladder control problems. ??? Y (more content not included)...[facility] Evaluation + Plan noteExtracted from: Title:ED Note Author:Dioni Gallardo DO Date:12/10/23 Acute on chronic back pain ( M54.9: Dorsalgia, unspecified) Ordered: acetaminophen-hydrocodone, 1 tab(s), Oral, q6hr for pain for 3 day(s), 12 tab(s), Refill(s) 0, [facility]/pharmacy #[id number], 162.5, cm, 10/10/24 13:16:00 EST, Height/Length Dosing, 77.7, kg, 10/10/24 13:16:00 EST, Weight Dosing Other chronic pain (G89.29: Other chronic pain) Orders: methylPREDNISolone, = 1 packet(s), Oral, As Directed, as directed on package labeling, X 6 day(s), # 21 tab(s), Refills(s) 0, Pharmacy: [facility]/pharmacy #[id number], 162.5, cm, 10/10/24 13:16:00 EST, Height/Length Dosing, 77.7, kg, 10/10/24 13:16:00 EST, Weight Dosing morphine, 4 mg = 1 mL, Injection, IV Push, Once, Stop date 10/10/24 14:30:00 EST, STAT, Start date 10/10/24 14:30:00 EST, 10/10/24 14:30:00 EST ondansetron, 4 mg = 2 mL, Injection, IV Push, Once, Stop date 10/10/24 14:31:00 EST, STAT, Start date 10/10/24 14:31:00 EST, 10/10/24 14:31:00 EST Basic Metabolic Panel CBC w/ Auto Diff CT Spine Lumbar w/o Contrast ED Cardiac Monitoring eGFR Extra Blue Tube Extra SST Tube Hepatic Function Panel UA with Cult Rflx Future Appointments Appointment Date:11/02/2024 02:45:00 PM Scheduled Provider:Amilcar Matthews PA-C [facility]:Cardiology Follow Up (FT) Appointment Date:01/07/2025 01:00:00 PM Scheduled Provider:Dorie Luis MD Location:[facility] Appointment Type: Open Appointment Date:06/18/2025 02:30:00 PM Scheduled Provider: Location:[facility] Appointment Type: Medicare Wellness Subsequent Future Scheduled Tests Laboratory* B-Type Natriuretic Peptide 12/01/23 * Basic Metabolic Panel 12/01/23 [facility] 10-14-2024 NoteDischarge Summary Admission and Discharge Information Admitting Physician - Eligio Lopez III, DO Consulting Physician - Sheila POSEY, Tiffany Archibald. [facility] [facility] Admitting Diagnoses: 1. Chest pain, 08/13/2024 Discharge Diagnoses 1. Chest pain, Chest pain 2. CAD in [place] artery, 08/13/2024 3. HTN (hypertension), benign, 08/13/2024 4. COPD (chronic obstructive pulmonary disease), 08/13/2024 5. Anxiety and depression, 08/13/2024 6. Polyneuropathy, 08/13/2024 7. RLS (restless legs syndrome), 08/13/2024 8. Current smoker, 08/13/2024 Livia Jacobo is a 63 year old female with history of CAD, prior STEMI, multivessel PCI, ABSTRACT SEARCHER of theRCA status post ABSTRACT SEARCHER intervention, COPD, HTN, anxiety/depression, RLS who follows with Dr Jansen. Presents to ER 08/13/24 with complaints of chest pain. Onset was yesterday. Location is across p recordium. Pain is described as pressure. She had associated shortness of breath. The pain dissipated without intervention. This morning she again developed the chest discomfort, substernal chest pressure with radiation up into the left shoulder down the left arm. Again she had associated shortnessof breath, some nausea. She took sublingual nitro [...] after admission, patient was seen by her campus security director- Tiffany Jansen. Per specialist,not ACS. Patient often has complaints of chest pain at visits, no ECG changes and troponin negativex 3. Patient was deemed acceptable for discharge [...] CAD, Sheila POSEY, Tiffany Chavarria, Consult and Co- manage, [facility] Physical Exam Vitals [...] Oral, Once a da (more content not included)...[facility] HospitalComment on above:Result Comment: Electronically Signed By: Maggie Jansen CNP\.br\Date and Time Signed: 08/24/24 12:38 EDT\.br\Electronically Co-Signed By: Eligio Lopez III, DO.br\Date and Time Co-Signed: 08/27/24 10:07 [id number] NoteHistory and Physical Basic Information 63 year old with CAD, COPD presenting with CP Chief Complaint pt has chest pain since yesterday. Pt A&O x 3 with ABC's and MSP's intact. hx of LA and COPD. History of Present Illness Livia Jacobo is a 63 year old female with history of CAD, prior STEMI, multivessel PCI, ABSTRACT SEARCHER of theRCA status post ABSTRACT SEARCHER intervention, COPD, HTN, anxiety/depression, RLS who follows with Dr Jansen. Presents to ER 08/13/24 with complaints of chest pain. Onset was yesterday. Location is across p recordium. Pain is described as pressure. She had associated shortness of breath. The pain dissipated without intervention. This morning she again developed the chest discomfort, substernal chest pressure with radiation up into the left shoulder down the left arm. Again she had associated shortnessof breath, some nausea. She took sublingual nitro [...] She would like to speak with Dr. Sue.She confirms that she is a full code [...] Normal midline tongue. Normal oropharynx, and posterior pharynxwithout lesions or exudates. Neck: Trachea midline, neck [...] 09:12:00) Lymph Auto: 31.9 % (08/13/24 09:12:00) [place] Auto: 10.9 % (08/13/24 09:12:00) Eos Auto: 2.3 % (08/13/24 09:12:00) Basophil Auto: 0.9 % (08/13/24 09:12:00) Neutro Absolute: 2.7 E9/L (08/13/24 09:12:00) Lymph Absolute: 1.6 E9/L (08/13/24 09:12:00) [place] Absolute: 0.5 E9/L (08/13/24 09:12:00) Eos Absolute: [...] further observation -Complete t (more content not included)...[facility] HospitalComment on above:Result Comment: Electronically Signed By: Maggie Jansen CNP\.br\Date and Time Signed: 08/13/24 12:42 EDT\.br\Electronically Co-Signed By: Eligio Lopez III, DO.br\Date and Time Co-Signed: 08/13/24 20:54 EDT 08-13-2024 Hospital Discharge instructions Patient Education 08/13/2024 17:47:45 Nonspecific Chest Pain, Adult, Hmcp-ga-Cual Nonspecific Chest Pain Chest pain can be [...] Follow these instructions at home: Medicines Take psvq-bev-tmbrovx and prescription medicines only as told by [...] ?Eating a heart-healthy diet. A diet and dairy nutritionist (dietitian) can help you to learn healthy [...] provider. Document Revised: 09/15/2023 Document Reviewed: 09/15/2023 [employer] Patient Education 2023 [employer]. 08/13/2024 17:47:42 Aspirin and Your Heart Aspirin and Your Heart Aspirin is a medicine that prevents the platelets in your blood from sticking together. Platelets are the cells that your blood uses for clotting. Aspirin can be used to help reduce the risk of bloodclots, heart attacks, and other heart- related problems. What are the risks? Daily use [...] the nose (nasal polyps) have an increased riskof developing an aspirin allergy. How to use aspirin to care for your heart Take aspirin only as told by your health care provider. Make sure that you understand how much to take and what form to take. The two forms of aspirin are: ?Gaq-xmvazlx-qsdwri.This type of aspirin does not have a coating and is absorbed quickly. This typeof aspirin also comes in a chewable form. ?Enteric-coated. This type of aspirin has a coating that releases the medicine very slowly. Enteric-coated aspirin might cause less stomach upset than yyq-nsewcpe-jooahg aspirin. This type of aspirinshould not be chewed or crushed. Work with [...] vessels are blocked (coronary artery disease), and youhave had a procedure to treat it. Examples [...] Follow these instructions at home Medicines Take bkob-gpm-udefsce and prescription medicines only as told by [...] bruising, and follow instructions about how to preventfalls. ?Wear a medical alert bracelet or carry [...] important. Where to find more information The [place] [employer]: www.heart.org The Centers for Disease [...] to remember the main warning signs of astroke: B - Balance. Signs are dizziness, sudden [...] speaking, slurred speech, or trouble understanding what peoplesay. T - Time. Time to call emergency [...] is safe and beneficial for you to takeaspirin daily. This information is not intended to replace advice given to you by your health care provider. Make sure you discuss any questions you have with your health care provider. Document Revised: 01/02/2022 Document Reviewed: 01/02/2022 Protection Plus Patient Education 2023 [employer]. Follow Up Care 08/13/2024 08:49:52 With:Amilcar Matthews PA-C Address: [address] [place] [phone] When:1 to 2 weeks With:Fidencio POSEY, Dorie Jean Baptiste [facility], [facility] Address: [address] [place] [address]- When:5 to 7 days [facility] 09-30-2024 NoteConsultation Note Chief Complaint chest pains Reason for Consultation Chest pain History of Present Illness 63-year-old female with history of CAD, STEMI, multivessel PCI, ABSTRACT SEARCHER of the RCA status post PCI for [...] abnormal EKG. She has ruled out for LA with enzymes. Her symptoms were relieved with nitroglycerin and she is currently symptom-free. Would uptitrate antianginals increasing Imdur and see her back as an outpatient in follow-up. Of note she always has some element of chest pain when we seeher in the office even after her last PCI. Thank for the consultation 1. Chest pain, (R07.9: Chest pain, unspecified)Chest pain 2. CAD in aniak artery (I25.10: Atherosclerotic heart disease of [place] coronary artery without angina pectoris) 3. HTN [...] a day (at bedtime) (more content not included)...[facility]:Result Comment: Electronically Signed By: Sheila POSEY, Tiffany Chavarria\.br\Date and Time Signed: 08/13/24 18:02 [id number] NotePatient Education - Text Gastroenterology Nonspecific Chest [...] these instructions at home: Medicines ? Take mksy-mow-mnpkqaz and prescription medicines only as told by [...] Eating a heart-healthy diet. A diet and dairy nutritionist (dietitian) can help you to learn healthy [...] provider. Document Revised: 09/15/2023 Document Reviewed: 09/15/2023 Protection Plus Patient Education ? 2023 [employer] Pharmacology Aspirin and Your Heart Aspirin is a medicine that prevents the platelets in your blood from sticking together. Platelets are the cells that your blood uses for clotting. Aspirin can be used to help reduce the risk of bloodclots, heart attacks, and other heart- related problems. What are the risks? Daily use [...] reaction. People who h (more content not included)...[facility] Evaluation + Plan noteExtracted from: Title:Consult Note Author:Fe Jansen MD Date:08/13/24 63-year-old female with know n CAD, recurrent chest discomfort, multivessel PCI, hypertension, hyperlipidemia, abnormal EKG. She has ruled out for LA with enzymes. Her symptoms were relieved with [...] Chest pain, unspecified)Chest pain 2. CAD in aniak artery (I25.10: Atherosclerotic heart disease of [place] coronary artery without angina pectoris) 3. HTN [...] admitted for further observation -Complete troponin trend [place] [place] for further recommendations 2. CAD in [place] artery (I25.10: Atherosclerotic heart disease of [place] coronary artery without angina pectoris) CAD with prior STEMI, multivessel PCI, ABSTRACT SEARCHER of the RCA status post ABSTRACT SEARCHER intervention -She is on good GDMT: Aspirin, Effient, high intensity statin, beta-tamika, ARB, Imdur [place] [place] to see 3. HTN (hypertension), benign [...] Date:10/03/2024 11:30:00 AM Scheduled Provider:Amilcar Matthews PA-C [facility] Type:Cardiology Follow Up (FT) Appointment Date:10/29/2024 03:30:00 PM Scheduled Provider:Dorie Luis MD Location:[facility] [place] Appointment Type: Open Appointment Date:06/18/2025 02:30:00 PM Scheduled Provider: Location:[facility] [place] Appointment Type:FM Medicare Wellness Subsequent Future Scheduled Tests Laboratory* B-Type Natriuretic Peptide 12/01/23 * Basic Metabolic Panel 12/01/23 [facility] 07-31-2024 NotePatient Education Mental and Behavioral [...] effectively so that it does not lead diloln anxious response. Talk with your health care [...] Lifestyle (Inserted Image. Mary (more content not included)...[facility] 05-29-2024 NotePatient Education Nutrition BMI for [...] numbers. This can be done either in [place] ([place] or metric measurements. Note that charts and online BMI calculators are available to help you find your BMI quickly and easily without having to do these calculations yourself. To calculate your BMI in [place] ([place] measurements: 1. Measure your weight in [...] for Disease Control and Prevention: www.cdc.gov ? [place] Heart Association: www.heart.org ? National Heart, Lung, and Blood Garrard: www.nhlbi.nih.gov Summary ? Body mass index (BMI) is a number that is calculated from a person's weight and height. ? BMI may help estimate how much of a person's weight is composed of fat. BMI can help identify those who may be at higher risk for certain medical problems. ? BMI can be measured using [place] measurements or metric measurements. ? BMI charts are used to identify whether you are underweight, normal weight, overweight, or obese. This information is not intended to replace advice given to you by your health care provider. Make sure you discuss any questions you have with your health care provider. Document Revised: 07/23/2020 Document Reviewed: 05/30/2020 Elsevier Patient Education ? 2022 Floc[employer].[facility] 05-16-2024 Hospital Discharge instructions Patient Education 05/16/2024 12:28:59 Nonspecific Chest Pain, Adult, Fanf-jw-Raky Nonspecific Chest Pain Chest pain can be [...] Follow these instructions at home: Medicines Take lauy-bal-kkpnblr and prescription medicines only as told by [...] ?Eating a heart-healthy diet. A diet and dairy nutritionist (dietitian) can help you to learn healthy [...] provider. Document Revised: 01/14/2022 Document Reviewed: 01/14/2022 Protection Plus Patient Education 2022 [employer]. Follow Up Care 05/15/2024 13:15:31 With:Tiffany Jansen Address: [address] [place] [address]- Business (1) When:06/13/2024 09:15:00 Comments:Will be seeing Amilcar EMMANUEL at this appointment With:Dorie Luis Address:Unknown When:05/28/2024 15:00:00 [facility]07-03-2024 Evaluation + Plan noteExtracted from: Title:Discharge Note Author:TARA POSEY, Ephraim Archibald ate:05/16/24 Stable Discharge To, Anticipated II - Home with responsible caregiver Discharged to - Home with family custodial Discharge Diet(s): Low Sodium- 2000 mg (05/16/24 [...] Tiffany Jansen Within 2 to [address] [place], [place] [address] [address] [facility] (1) Additional Instructions: Call for followup appointment Dorie Luis Within 3 to 5 days Additional Instructions: Call for followup appointment Nonspecific Chest Pain, Adult, Clsc-bn-Sras Extracted from: Title:Consult Note Author:Sheila POSEY, Fe Chavarria Date:05/16/24 63-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 Admitted for unstable angina/hypertensive urgency. Ruled out for LA and EKG is unchanged. Feeling better now [...] artery disease) (I25.10: Atherosclerotic heart disease of [place] coronary artery without angina pectoris) 7. History of ST elevation myocardial infarction (STEMI) (I25.2: Old myocardial infarction) 8. Tobacco dependence (F17.200: Nicotine dependence, unspecified, uncomplicated) 9. Obese (E66.9: Obesity, unspecified) 10. 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: Other technician terminal and repeater (current) drug therapy) Orders: prasugrel, 10 mg [...] Cardiology consult pending. Ordered: Consult to Cardiology [facility] Care/Day Moderate 35 Minutes 90122 2. Dizziness (R42: Dizziness and giddiness) Secondary to uncontrolled hypertension. Resolved. Ordered: [facility] Care/Day Moderate 35 Minutes 25277 3. HTN (hypertension), benign (I10: Essential (primary) hypertension) Blood pressure well-controlled. Continue on Coreg and isosorbide-dose increased Continue on IV hydralazine as needed. Ordered: [facility] Care/Day Moderate 35 Minutes 47248 4. RLS (restless legs syndrome) (G25.81: Restless legs syndrome) On ropinirole. Ordered: [facility] Care/Day Moderate 35 Minutes 66026 5. COPD (chronic obstructive pulmonary disease) (J44.9: Chronic obstructive pulmonary disease, unspecified) Stable. On nebulizer treatments. 6. CAD (coronary artery disease) (I25.10: Atherosclerotic heart disease of [place] coronary artery without angina pectoris) History of [...] deep vein thrombosis (DVT) prophylaxis (Z79.899: Other technician terminal and repeater (current) drug therapy) Lovenox. Disposition: Home soon pending cardiology evaluation. I discussed the diagnosis and plan of care with the patient at the bedside. Moderate level of MDM based on addressing above issues. This documentation was transcribed using voice recognition software. Several attempts were made to ensure accuracy. However inadvertent computerized signal supervisor errors may be present. Ephraim Ross. Hospitalist. Extracted from: Title:Admission H & P Author:Ephraim ROSS MD Date:05/15/24 63-year-old female cigarette smoker with history [...] Cardiology Initial Hospital Care/Day Moderate 55 Minutes 83461 2. Dizziness (R42: Dizziness and giddiness) Suspect secondary to uncontrolled hypertension. Will start patient on antihypertensives. Ordered: Initial Hospital Care/Day Moderate 55 Minutes 88517 3. HTN (hypertension), benign (I10: Essential (primary) hypertension) Blood pressure uncontrolled. May be contributing to above. Resume Coreg and isosorbide. Started patient on IV hydralazine. Ordered: Initial Hospital Care/Day Moderate 55 Minutes 35467 4. RLS (restless legs syndrome) (G25.81: Restless legs syndrome) On ropinirole. Ordered: Initial Hospital Care/Day Moderate 55 Minutes 04292 5. COPD (chronic obstructive pulmonary disease) (J44.9: Chronic obstructive pulmonary disease, unspecified) Stable. 6. CAD (coronary artery disease) (I25.10: Atherosclerotic heart disease of [place] coronary artery without angina pectoris) Patient with history of STEMI status post stent times 17 July 2023. Stable. Continue on aspirin, prasugrel, Coreg and isosorbide. Ordered: Initial Hospital Care/Day Moderate 55 Minutes [address] elevation myocardial infarction (STEMI) (I25.2: Old myocardial infarction) Historical. Continue on home medications. 8. Tobacco dependence (F17.200: Nicotine dependence, unspecified, uncomplicated) Recommend cessation. Offered patient nicotine patch that she refused. 9. Obese (E66.9: Obesity, unspecified) Recommend therapeutic lifestyle modification changes. 10. 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: Other skilled nursing (current) drug therapy) Lovenox. Disposition: The patient [...] made to ensure accuracy. However inadvertent computerized signal supervisor errors may be present. Ephraim Ross. Hospitalist. [...] Vital Signs Weight Extracted from: Title:ED Note Author:Milton Brooks, Ainsley Carlisle te:05/15/24 1. Chest pain (R07.9: Chest pain, unspecified) 2. Dizziness (R42: Dizziness and giddiness) 3. HTN (hypertension), benign (I10: Essential (primary) hypertension) 4. RLS (restless legs syndrome) (G25.81: Restless legs syndrome) 5. COPD (chronic obstructive pulmonary disease) (J44.9: Chronic obstructive pulmonary disease, unspecified) 6. CAD (coronary artery disease) (I25.10: Atherosclerotic heart disease of [place] coronary artery without angina pectoris) 7. History [...] Date:05/28/2024 03:00:00 PM Scheduled Provider:Dorie Luis MD Location:[facility] Appointment Type: Hospital Follow Up w/TCM Appointment Date:06/12/2024 11:00:00 AM Scheduled Provider: Location:[facility] Appointment Type: Medicare Wellness Subsequent Appointment Date:06/13/2024 09:15:00 AM Scheduled Provider:Amilcar Matthews PA-C [facility]:Cardiology Follow Up (FT) Future Scheduled Tests Laboratory* B-Type Natriuretic Peptide 12/01/23 * Basic Metabolic Panel 12/01/23 [facility]07-03-2024 NotePatient Education - Text Gastroenterology Nonspecific [...] these instructions at home: Medicines ? Take tnyj-rit-imriwvu and prescription medicines only as told by [...] Eating a heart-healthy diet. A diet and dairy nutritionist (dietitian) can help you to learn healthy [...] provider. Document Revised: 01/14/2022 Document Reviewed: 01/14/2022 Protection Plus Patient Education ? 2022 [employer]oc[employer].[facility] 05-16-2024 NoteDischarge Summary Admission and Discharge Information Admitting Physician - Ephraim ROSS MD Consulting Physician - [facility] [place], [place] Admitting Diagnoses: Discharge Order Date [...] of breath. She was [facility] with dizziness andchest pain secondary to uncontrolled hypertension to rule out acute coronary syndrome. Acute coronary syndrome was ruled out with negative serial cardiac enzymes. Blood pressure was better controlledwith increasing Coreg to 6.25 mg twice daily and Imdur to 30 mg twice daily. She was seen in consultation by the campus security director. Patient had ran out of her home [...] care physician accordingly as well as the campus security director. Services Consulted - Completed -- 05/15/24 16:37:56 [...] caregiver Discharged to - Home with family custodial Discharge Diet Discharge Diet(s): Low Sodium- 2000 [...] Tiffany Jansen Within 2 to 4 weeks [address] (more content not included)...[facility] HospitalComment on above:Result Comment: Electronically Signed By: TARA POSEY, Ephraim\.br\Date and Time Signed: 05/16/24 12:36 [id number] NoteConsultation Note Chief Complaint chest pressure/pain this AM. Reason for Consultation Chest pressure History of Present Illness 63-year-old female with history of CAD, prior STEMI, multivessel PCI, ABSTRACT SEARCHER of the RCA status post ABSTRACT SEARCHER intervention. Chronic chest pain syndrome on chronic [...] for unstable angina/hypertensive urgency. Ruled out for LA and EKG is unchanged. Feeling better now [...] artery disease) (I25.10: Atherosclerotic heart disease of ani[place] coronary artery without angina pectoris) 7. History of ST elevation myocardial infarction (STEMI) (I25.2: Old myocardial infarction) 8. Tobacco dependence (F17.200: Nicotine dependence, unspecified, uncomplicated) 9. Obese (E66.9: Obesity, unspecified) 10. 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: Other skilled nursing (current) drug therapy) Orders: prasugrel, 10 mg [...] 1 tab(s), Oral, (more content not included)... [facility] on [facility]:Result Comment: Electronically Signed By: Sheila POSEY, Tiffany Chavarria\.br\Date and Time Signed: 05/16/24 12:24 [id number] NoteProgress Note-Physician Assessment/Plan 63-year-old female cigarette smoker [...] Cardiology consult pending. Ordered: Consult to Cardiology [facility] Care/Day Moderate 35 Minutes 70618 2. Dizziness (R42: Dizziness and giddiness) Secondary to uncontrolled hypertension. Resolved. Ordered: [facility] Care/Day Moderate 35 Minutes 44339 3. HTN (hypertension), benign (I10: Essential (primary) hypertension) Blood pressure well-controlled. Continue on Coreg and isosorbide-dose increased Continue on IV hydralazine as needed. [facility] 35 Minutes 65037 4. RLS (restless legs syndrome) (G25.81: Restless legs syndrome) On ropinirole. Ordered: [facility] Care/Day Moderate 35 Minutes 50069 5. COPD (chronic obstructive pulmonary disease) (J44.9: Chronic obstructive pulmonary disease, unspecified) Stable. On nebulizer treatments. 6. CAD (coronary artery disease) (I25.10: Atherosclerotic heart disease of [place] coronary artery without angina pectoris) History of STEMI status post stents x ?July 2023. Stable. Continue on aspirin, Effient, Coreg and isosorbide. Ordered: 7. History of ST elevation myocardial infarction (STEMI) (I25.2: Old myocardial infarction) Historical. Continue above meds. 8. Tobacco dependence (F17.200: Nicotine dependence, unspecified, uncomplicated) Recommend cessation. 9. Obese (E66.9: Obesity, unspecified) Recommend therapeutic lifestyle modification changes. 10. 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: Other skilled nursing (current) drug therapy) Lovenox. Disposition: Home soon pending cardiology evaluation. I discussed the diagnosis and plan of care with the patient at the bedside. Moderate level of MDM based on addressing above issues. This documentation was transcribed using voice recognition software. Several attempts were made to ensure accuracy. However inadvertent computerized signal supervisor errors may be present. Ephraim Ross. Hospitalist. [...] MCHC: 35.4 gm/dL (05/15/24:30:00) RDW: 13.7 % (05/15/24:30:00) Platelet: 216 E9/L (05/15/24:30:00) MPV: 7 fL (05/15/24:30:00) Neutro Auto: 54.4 % (05/15/24:30:00) Lymph Auto: 33.2 % (05/15/24:30:00) [place] Auto: 9 % (05/15/24:30:00) Eos Auto: 2.6 % (07/02/24 13:30:00) Basophil Auto: 0.8 % (05/15/24 13:30:00) Neutro Absolute: 2.8 E9/L (05/15/24 13:30:00) Lymph Absolute: 1.7 E9/L (05/15/24 13:30:00) [place] Absolute: 0.5 E9/L (05/15/24 13:30:00) Eos Absolute: 0.1 E9/L ( (more content not included)...[facility] HospitalComment on above:Result Comment: Electronically Signed By: TARA POSEY, Meganfo\.br\Date and Time Signed: 05/16/24 09:06 [id number] NoteHistory and Physical Chief Complaint pt presents [...] % (05/15/24:30:00) Lymph Auto: 33.2 % (05/15/24:30:00) [place] Auto: 9 % (05/15/24:30:00) Eos Auto: 2.6 % (05/15/24:30:00) Basophil Auto: 0.8 % (05/15/24:30:00) Neutro Absolute: 2.8 E9/L (05/15/24:30:00) Lymph Absolute: 1.7 E9/L (05/15/24:30:00) [place] Absolute: 0.5 E9/L (05/15/24:30:00) Eos Absolute: 0.1 E9/L (05/15/24:30:00) Basophil Absolute: 0 E9/L (05/15/24:30:00) PT: 10.1 second(s) (05/15/24:30:00) INR: 0.9 (05/15/24:30:00) PTT: 33.1 second(s) (05/15/24:30:00) Glucose Lvl: 100 mg/dL (05/15/24:30:00) BUN: 11 mg/dL (05/15/24:30:00) Creatinine: 0.5 mg/dL (05/15/24:30:00) eGFR: 104 mL/min/1.73 m2 (05/15/24:30:00) BUN/Creat Ratio: 22 High (05/15/24:30:00) Sodium Lvl: 140 mmol/L (05/15/24:30:00) Potassium Lvl: 3.7 mmol/L (05/15/24 13:30:00) Chloride: 106 mmol/L (05/15/24 13:30:00) CO2: 27 mmol/L (07/02/24 13:30:00) AGAP: 11 mEq/L (05/15/24 13:30:00) Calcium Lvl: 9.1 mg/dL (05/15/24 13:30:00) Magnesium: 1.9 mg/dL (05/15/24 13:30:00) Troponin HS: 5.7 pg/mL Low (05/15/24 13:30:00) Diagnostic Results (05/15/2024 13:49 EDT XR Chest Single View) * Final Report * Reason For Exam Chest pain POWERSCRIBE REPORT IMPRESSION: NO (more content not included)...[facility] HospitalComment on above:Result Comment: Electronically Signed By: TARA POSEY, Ephraim\.br\Date and Time Signed: 05/15/24 16:09 [id number] Nurse Note* Sherry Vides RN - 10/26/2023 4:43 PM EST Patient ambulated in [place], groin site remained stable, discharge instructions reviewed with patientand family by MALACHI kaur, peripheral IV removed, final vitals and site assessment stable, discharged via wheelchair by RN [facility]12-13-2023 Nurse Note* Sherry Vides RN - 10/26/2023 4:43 PM EST Patient ambulated in [place], groin site remained stable, discharge instructions reviewed with patientand family by MALACHI kaur, peripheral IV removed, final vitals and site assessment stable, discharged via wheelchair by RN * Claudia Holliday RN - 10/26/2023 3:51 PM EST HOB elevated 90 degrees. Groins stable. documented in this [facility] Work Phone: 1(514) 586-364312-13-2023 Hospital Discharge instructions* Discharge Instructions* Claudia Holliday, MALACHI - 10/26/2023 4:29 PM EST FOR SUDDEN [...] usually within one week. documented in this [facility] Work Phone: 1(587) 856-626112-13-2023 Nurse Note* Claudia Holliday RN - 10/26/2023 3:51 PM EST HOB elevated 90 degrees. Groins stable. [facility] Work Phone: 1(516) 653-386612-13-2023 Note* Post-Procedure Note - Bertha Santoyo MD - 10/26/2023 1:31 PM EST Physician Transition of Care Summary Invasive Cardiovascular Lab Procedure Date: 10/26/2023 Attending: * Bandar Castrejon - Primary Resident/Fellow/Other Emergency Preparedness Coordinator: Surgeon(s) and Role: Indications: Pre-op Diagnosis * 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 (CMS/HCC) [I25.112] Post-procedure diagnosis: Post-op Diagnosis * 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 (CMS/HCC) [I25.112] Procedure(s): PCI MYNOR Stent- PCI ABSTRACT SEARCHER RCA [phone] [id number] - [place] PRQ TRLUML CORONRY CHRONIC OCCLUS REVASC ONE VSL IVUS - Coronary [place] PRQ TRLUML CORONRY CHRONIC OCCLUS REVASC ONE VSL [43972] Procedure Findings: Staged PCI to ABSTRACT SEARCHER RCA. S/p successful PCI with 2X MYNOR 3.0X48mm , 3.5X38mm post dilated to 4.0 proximally at the ostium. Description of the Procedure: Right APARTMENT MAINTENANCE 6Fr --> 6Fr Angioseal Left APARTMENT MAINTENANCE 6Fr --> 6Fr Angioseal Complications: None Stents/Implants: Cardiovascular Implants Stent Stent, Synergy Xd, Mr Us, 3.00 X 48mm - [id number] - Implanted Inventory item: STENT, SYNERGY XD, MR US, 3.00 X 48MM Model/Cat number: [id number] Research Associate Policy: [employer] Lot number: [id number] Device identifier: [id number] As of 10/26/2023 Status: Implanted Stent, Synergy Xd, Us, 3.50 X 38mm - [id number] - Implanted Inventory item: STENT, SYNERGY XD, US, 3.50 X 38MM Model/Cat number: [id number] Research Associate Policy: [employer] Lot number: [id number] Device identifier: [id number] As of 10/26/2023 Status: Implanted Anticoagulation/Antiplatelet Plan: DAPT and statin for 1 year Estimated Blood Loss: 20 mL Anesthesia: Moderate Sedation Anesthesia Staff: No anesthesia staff entered. Any Specimen(s) Removed: Order Name Source Comment Collection Info Order Time BASIC METABOLIC PANEL Blood, Venous Collected By: Claudia Holliday RN 10/26/2023 10:38 AM Release result to [facility] Immediate CBC Blood, Venous Collected By: Claudia Holliday RN 10/26/2023 10:38 AM Release result to MyChart Immediate PROTIME-INR Blood, Venous Collected By: Claudia Holliday RN 10/26/2023 10:38 AM Release result to MyChart Immediate Disposition: Home Electronically signed by: Bertha Santoyo MD, 10/26/2023 1:31 PM [facility] Work Phone: 1(393) 208-193112-13-2023 Miscellaneous Notes* Post-Procedure Note - Bertha Santoyo MD - 10/26/2023 1:31 PM EST Physician Transition of Care Summary Invasive Cardiovascular Lab Procedure Date: 10/26/2023 Attending: Vanessa Castrejon - Primary Resident/Fellow/Other Emergency Preparedness Coordinator: Surgeon(s) and Role: Indications: Pre-op Diagnosis * 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 (CMS/HCC) [I25.112] Post-procedure diagnosis: Post-op Diagnosis * 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 (CMS/HCC) [I25.112] Procedure(s): PCI MYNOR Stent- PCI ABSTRACT SEARCHER RCA [phone] - [place] PRQ TRLUML CORONRY CHRONIC OCCLUS REVASC ONE VSL IVUS - Coronary [place] PRQ TRLUML CORONRY CHRONIC OCCLUS REVASC ONE VSL [[id number]] Procedure Findings: Staged PCI to ABSTRACT SEARCHER RCA. S/p successful PCI with 2X MYNOR 3.0X48mm , 3.5X38mm post dilated to 4.0 proximally at the ostium. Description of the Procedure: Right APARTMENT MAINTENANCE 6Fr --> 6Fr Angioseal Left APARTMENT MAINTENANCE 6Fr --> 6Fr Angioseal Complications: None Stents/Implants: Cardiovascular Implants Stent StentDagmar Mr Us, 3.00 X 48mm - [id number] - Implanted Inventory item: STENTDAGMAR MR US, 3.00 X 48MM Model/Cat number: [id number] Research Associate Policy: [employer] Technology Lot number: [id number] Device identifier: [id number] As of 10/26/2023 Status: Implanted StentDagmar Mr Us, 3.50 X 38mm - [id number] - Implanted Inventory item: STENTDAGMAR MR US, 3.50 X 38MM Model/Cat number: [id number] Research Associate Policy: [employer] Lot number: [id number] Device identifier: [id number] As of 10/26/2023 Status: Implanted Anticoagulation/Antiplatelet Plan: [...] MyChart Immediate PROTIME-INR Blood, Venous Collected By: Cluadia Holliday RN 10/26/2023 10:38 AM Release result to MyChart Immediate Disposition: Home Electronically signed by: Bertha Santoyo MD, 10/26/2023 1:31 PM * Pre-Sedation Documentation - Jacob Garcia MD - 10/26/2023 10:53 AM EST Sedation Plan ASA 3 Mallampati class: II. Risks, benefits, and alternatives discussed with patient. Irvin Garcia MD Interventional Sweeper Driver, PGY8 documented in this [facility] Work Phone: 1(637) 242-154512-13-2023 Note* Pre-Sedation Documentation - Jacob Garcia MD - 10/26/2023 10:53 AM EST Sedation Plan ASA 3 Mallampati class: II. Risks, benefits, and alternatives discussed with patient. Irvin Garcia MD Interventional Sweeper Driver, PGY8 [facility] Work Phone: 1(443) 212-848412-13-2023 History and physical note* GAURAV Aly - [...] mg, oral, 2 times daily with meals xgrexyadjbn-svyxvrwou-alysgjjm (Trelegy Ellipta) 100-62.5-25 mcg blister with device [...] COVID-19 what the risks are. GAURAV Aly [facility] Work Phone: 1(155) 460-696212-13-2023 History and physical note* GAURAV Aly - [...] mg, oral, 2 times daily with meals tjbapuboful-neomlyusl-vwheknmb (Trelegy Ellipta) 100-62.5-25 mcg blister with device [...] COVID-19 what the risks are. Noé Sanchez, HARRIS-COMB CAPPER documented in this [facility] Work Phone: 1(483) 270-812911-28-2023 History of Present illness Narrative* Bandar Castrejon MD - 10/11/2023 3:30 PM EST Cardiology New Patient History and Physical Reason for referral: ABSTRACT SEARCHER HPI: Livia Jacobo is a 62 y.o. female who presents today for evaluation of ABSTRACT SEARCHER PCI of the RCA. Patient is a 62-year-old female history of coronary artery disease. She presented with an LA in June 2023. She was found to have total occlusion of the RCA. She underwent attempted ABSTRACT SEARCHER PCI in August 2023. This was unsuccessful. [...] a day with meals., Disp: , Rfl: ddpllmwurdl-jriignman-vhwcmmff (Trelegy Ellipta) 100-62.5-25 mcg blister with device, [...] No results found for: TSH Assessment: 1. ABSTRACT SEARCHER of the RCA with uozs-sg-jrrpu collaterals Patient is on reasonable medical therapy including beta-blockade, calcium channel tamika, isosorbide and ranolazine. She is still symptomatic despite 4 antianginal medications. Patient is on aspirin, ticagrelor and high intensity statin therapy. Risks and benefits of ABSTRACT SEARCHER PCI discussed with the patient. Patient is agreeable to attempted ABSTRACT SEARCHER PCIof the RCA. This will be done in the near future. Patient will follow-up with Dr. Jansen as previously scheduled. Thank you for allowing us to participate in the care of the patient. Please contact us with any questions or concerns. Bandar Castrejon MD documented in this [facility] Work Phone: [phone]) 464-420610-25-2023 Note* Significant Event - Marianna Tong RN [...] further needs. Ready to discharge to home. [facility] Work Phone: [phone]) 127-320610-25-2023 Miscellaneous Notes* Significant Event - Marianna Tong [...] Attending: * Tiffany Jansen - Primary Resident/Fellow/Other Emergency Preparedness Coordinator: Surgeon(s) and Role: Indications: Pre-op Diagnosis * Coronary artery disease [I25.10] Post-procedure diagnosis: Post-op Diagnosis * Coronary artery disease [I25.10] Procedure(s): PCI MYNOR Stent- Coronary 11984 - [place] PRQ TRLUML CORONARY STENT W/ANGIO ONE ART/BRNC Procedure Findings: ABSTRACT SEARCHER of the RCA Description of the Procedure: [...] 09/07/2023 9:33 AM Release result to [facility] Immediate BASIC METABOLIC PANEL Blood, Venous Collected By: Enma Moon CPT 09/07/2023 9:33 AM [facility] CBC Blood, Venous Collected By: Enma Moon CPT 09/07/2023 9:33 AM Release result to [facility] Immediate Disposition: Refer to Dr. Blair at [facility] for ABSTRACT SEARCHER angioplasty. Electronically signed by: Tiffany Jansen MD, 09/07/2023 12:09 PM * Pre-Sedation Documentation - Tiffany Jansen MD - 09/07/2023 11:08 AM EDT Sedation Plan ASA 2 Mallampati class: II. Risks, benefits, and alternatives discussed with patient. [facility] Phone: [phone]) 121-995510-25-2023 Note* Significant Event - Marianna Tong RN - 09/07/2023 2:45 PM EDT Pt ambulated down lyles to RR and voided clear/yellow urine. Bilateral groin sites remain soft and stable with no hematoma or oozing. Pt denies needs at this time. [facility] Work Phone: 1([phone]) 854-497410-25-2023 Note* Significant Event - Marianna Tong RN - 09/07/2023 1:33 PM EDT HOB increased to 30 degrees, bilateral groin sites soft and stable with no hematoma or oozing. Pt drinking water/diet pepsi and eating turkey sandwich box. Denies further needs at this time. [facility] Work Phone: 1([phone]) 305-978010-25-2023 Note* Significant Event - Marianna Tong RN - 09/07/2023 1:21 PM EDT Bilateral groin sites soft and stable with no hematoma or oozing. Pt denies needs. [facility] Work Phone: [phone] Note* Significant Event - Marianna Tong RN - 09/07/2023 12:39 PM EDT Bilateral groins remain soft and stable with no hematoma or oozing. Pt denies needs. [facility] Work Phone: [phone] Note* Significant Event - Marianna Tong RN - 09/07/2023 12:38 PM EDT Upon arrival to room focused assessment performed and WDL. Bilateral groins soft and stable with nohematoma or oozing. Educated Pt on current restrictions d/t bilateral groin sites arterial punctures. Daughters at bedside with her, Pt denies further needs at this time. [facility] Work Phone: 1([phone]) 246-305410-25-2023 Note* Post-Procedure Note - Tiffany Jansen MD - 09/07/2023 12:09 PM EDT Physician Transition of Care Summary Invasive Cardiovascular Lab Procedure Date: 09/07/2023 Attending: * Tiffany Jansen - Primary Resident/Fellow/Other Emergency Preparedness Coordinator: Surgeon(s) and Role: Indications: Pre-op Diagnosis * Coronary artery disease [I25.10] Post-procedure diagnosis: Post-op Diagnosis * Coronary artery disease [I25.10] Procedure(s): PCI MYNOR Stent- Coronary 70536 - W[place] PRQ TRLUML CORONARY STENT W/ANGIO ONE ART/BRNCH Procedure Findings: ABSTRACT SEARCHER of the RCA Description of the Procedure: [...] SCREEN Blood, Venous Collected By: Enma Moon [facility] 09/07/2023 9:33 AM Release result to [facility] Immediate BASIC METABOLIC PANEL Blood, Venous Collected By: Enma Moon [facility] 09/07/2023 9:33 AM Release result to [facility] Immediate CBC Blood, Venous Collected By: Enma Moon [facility] 09/07/2023 9:33 AM [facility] Immediate Disposition: Refer to Dr. Blair at [facility] for ABSTRACT SEARCHER angioplasty. Electronically signed by: Tiffany Jansen MD, 09/07/2023 12:09 PM [facility] Work Phone: [phone] Note* Pre-Sedation Documentation - Tiffany Jansen MD - 09/07/2023 11:08 AM EDT Sedation Plan ASA 2 Mallampati class: II. Risks, benefits, and alternatives discussed with patient. [facility] Work Phone: [phone]) 259-827810-25-2023 History and physical note* Tiffany Jansen MD - 09/07/2023 11:06 AM EDT History Of Present Illness Livia Jacobo is a 62 y.o. female presenting with Need for PCI at [facility] for ABSTRACT SEARCHER.. [facility] for chest pain. Past Medical History [...] Principal Problem: Coronary artery disease Planned PCI ABSTRACT SEARCHER RCA I spent 10 minutes in the professional and overall care of this patient. Tiffany Jansen MD [facility] Work Phone: [phone] 437-680510-25-2023 History and physical note* Tiffany Jansen MD - 09/07/2023 11:06 AM EDT History Of Present Illness Livia Jacobo is a 62 y.o. female presenting with [facility] for ABSTRACT SEARCHER.. [facility]admit at [facility] for chest pain. Past Medical History [...] Principal Problem: Coronary artery disease Planned PCI ABSTRACT SEARCHER RCA I spent 10 minutes in the professional and overall care of this patient. Tiffany Jansen MD documented in this [facility] Work Phone: 1(969) 829-669510-20-2023 Evaluation + Plan noteExtracted from: Title:Discharge Note [...] 5 mg Tab With When Contact Information [facility] [address], [place] [address]- Additional Instructions: Cardiac Cath with Intervention scheduled at [facility]- Go to the second floor for check in, park on the second floor parking garage Arrive at 8 am, Procedure Scheduled for 10 am NPO after midnight, OK to take meds with sip of water- be sure to take asa and Brilinta! Call [facility], [place], with any questions Dorie Luis In 0 days [address] [place] [address]- Business (2) Additional Instructions: Extracted from: Title:Admission H & P Author:Alec LUTHER DO Date:09/01/23 1. Chest pain (R07.9: Chest pain, unspecified) Cycle cardiac enzymes. Nitroglycerin sublingual as needed. EKG as needed. Will consult cardiology. We will keep patient n.p.o. after midnight for possible heart catheterization. 2. Hypokalemia (E87.6: Hypokalemia) Replete and recheck with morning labs 3. CAD in [place] artery (I25.10: Atherosclerotic heart disease of [place] coronary artery without angina pectoris) We will [...] deep vein thrombosis (DVT) prophylaxis (Z79.899: Other skilled nursing (current) drug therapy) SCD, enoxaparin Orders: acetaminophen, [...] Future Appointments Appointment Date:09/13/2023 03:40:00 PM Scheduled Provider:Dorie Luis MD Location:[facility] Appointment Type: ER/Hospital Follow Up Appointment Date:10/27/2023 01:45:00 PM Scheduled Provider:Sheila POSEY, Tiffany Chavarria [facility] [place] [facility] Type:Cardiology Follow Up (FT) Appointment Date:06/13/2024 11:00:00 AM Scheduled Provider: Location:[facility] Appointment Type: Medicare Wellness Subsequent Future Scheduled Tests Radiology* BD Bone Density DEXA 09/13/22 * MA Mamm Screen w/CAD if perf and 3D Jason 09/13/22 [facility]10-20-2023 NoteAdmission and Discharge Information Admitting Physician - Alec LUTHER DO Consulting Physician - [facility] Cardio, XXXX Admitting Diagnoses: Discharge Diagnoses 1. Chest pain, 09/01/2023 2. Hypokalemia, 09/01/2023 3. CAD in [place] artery, 09/01/2023 4. COPD (chronic obstructive pulmonary [...] for high risk left heart cath at [facility] on 09/07/2023. She was seen by cardiology. Ranexa was implemented. She will be discharged with Ranexa. Patient was deemed appropriate discharge home per cardiology. On day of discharge shewas vitally hemodynamically clinically stable. Follow up w/Cardiology Services Consulted Consult to Cardiology (Cardiology Consult) - Ordered -- 09/01/23 21:58:00 EDT, Chest pain, Consult and Co-manage, FT Heart and Vascular Consult to Office Employee - Ordered -- 09/01/23 22:11:26 EDT Physical [...] 61.4 % Lymph Auto - 29.3 % [place] Auto - 5.5 % Eos Auto - 3.1 % Basophil Auto - 0.7 % Neutro Absolute - 4.1 E9/L Lymph Absolute - 2.0 E9/L [place] Absolute - 0.4 E9/L Eos Absolute - [...] Trelegy Ellipta 100 mcg-62. (more content not included)...[facility]:Result Comment: Electronically Signed By: Lisbet POSEY, Rosa Maria\.br\Date and Time Signed: 09/02/23 12:41 [id number] NoteChief Complaint chest pain nausea History of [...] E9/L (09/01/23 19:24:00) RBC: 4.1 E12/L Low (09/01/23 19:24:00) HGB: 13.1 gm/dL (09/01/23 19:24:00) Hct: 38.5 % (09/01/23) MCV: 93.5 fL (09/01/23) MCH: 31.9 pg (09/01/23) MCHC: 34.1 gm/dL (09/01/23) RDW: 13.3 % (09/01/23) Platelet: 240 E9/L (09/01/23) MPV: 8 fL (09/01/23) Neutro Auto: 61.4 % (09/01/23) Lymph Auto: 29.3 % (09/01/23) [place] Auto: 5.5 % (09/01/23) Eos Auto: 3.1 % (09/01/23) Basophil Auto: 0.7 % (09/01/23) Neutro Absolute: 4.1 E9/L (09/01/23) Lymph Absolute: 2 E9/L (09/01/23) [place] Absolute: 0.4 E9/L (09/01/23) Eos Absolute: 0.2 E9/L (09/01/23) Basophil Absolute: 0 E9/L (09/01/23) PT: 11.5 second(s) (09/01/23:) INR: 1 (09/01/23) PTT: 31.9 second(s) (09/01/23:) Glucose Lvl: 166 mg/dL (09/01/23) BUN: 8 mg/dL (09/01/23:) Creatinine: 0.7 mg/dL (09/01/23) eGFR: 97 mL/min/1.73 m2 (09/01/23) BUN/Creat Ratio: 11 (09/01/23) Sodium Lvl: 131 mmol/L Low (09/01/23) Potassium Lvl: 2.7 mmol/L Critical (09/01/23:24:00) Chloride: 102 mmol/L (09/01/2324:00) CO2: 21 mmol/L (09/01/23:00) AGAP: 11 mEq/L (09/01/23:00) Calcium Lvl: 8.7 mg/dL Low (09/01/23:00) Alk Phos: 136 Int._Unit/L High (09/01/23:00) ALT: 20 Int._Unit/L (09/01/23:00) AST: 24 Int._Unit/L (09/01/23:00) Total Protein: 6.9 gm/dL (09/01/23:00) Albumin Lvl: 3.5 gm/dL (09/01/23:) Globulin: 3.4 gm/dL (09/01/23:) A/G Ratio: 1 Low (09/01/23:) Bili Total: 0.1 mg/dL (09/01/23:00) Bili Direct: <0.1 (09/01/23:00) Bili Indirect: Unable to Calculate Abnormal (09/01/23:) Magnesium: 1.8 mg/dL (09/01/23:00) Troponin: 8.2 pg/mL Low (09/01/23:00) Assessment/Plan 1. Chest pain (R07.9: Chest pain, unspecified) Cycle cardiac enzymes. Nitroglycerin sublingual as needed. EKG as needed. Will consult cardiology. We will keep patient n.p.o. after midnight for possible heart catheterization. 2. Hypokalemia (E87.6: Hypokalemia) Replete and recheck with morning labs 3. CAD in [place] artery (I25.10: Atherosclerotic heart disease of [place] coronary artery without angina pectoris) We will [...] On deep vein throm (more content not included)...[facility] Comment on above:Result Comment: Electronically Signed By: Alec LUTHER DO.br\Date and Time Signed: 09/01/23 22:27 [id number] Hospital Discharge instructions Follow Up Care 09/01/2023 18:57:28 With:Dorie Luis Address: [address] [place] [phone] Business (2) When:09/13/2023 15:40:00 With:[facility] Address: [address] [place] [address] , [place] [address]- When: Unknown Comments:Cardiac Cath with Intervention scheduled at [facility]- Go to the second floor for check in, park on the second floor parking garageArrive at 8 am, Procedure Scheduled for 10 amNPO after midnight, OK to take meds with sip of water- be sure to take asa and Brilinta!Call [facility], [place], with any questions [facility]09-25-2023 Hospital Discharge instructions Follow Up Care 08/08/2023 14:27:10 With:Your campus security director Address:Unknown When:08/11/2023 16:03:52 With:Dorie Luis Address: [address] [place] [phone] Business (2) When:Within 3 Day(s) [facility]09-25-2023 Evaluation + Plan noteExtracted from: Title:ED [...] Date:08/11/2023 02:20:00 PM Scheduled Provider:Dorie Luis MD Location:[facility] Appointment Type: Open Appointment Date:09/01/2023 01:45:00 PM Scheduled Provider:Tiffany Jansen MD Location[facility] [place] Appointment Type:Cardiology Follow Up (FT) Appointment Date:06/13/2024 11:00:00 AM Scheduled Provider: Location:[facility] Appointment Type: Medicare Wellness Subsequent Future Scheduled Tests Radiology* BD Bone Density DEXA 09/13/22 * MA Mamm Screen w/CAD if perf and 3D Jason 09/13/22 [facility]08-28-2023 Note [id number]:127[facility] 07-10-[facility] Evaluation + Plan noteExtracted from: Title:Discharge Note Author:BILL POSEY, Rosalinda Kevin e:07/10/23 stable home Discharge Diet(s): Fat Modified- [...] Information Dorie Luis In 0 days [address] [place] [address] [facility] (2) Additional Instructions: Heart Attack, Duyr-ay-Ayjk Extracted from: Title:Admission H & P Author:Bruno [...] a blood pressure was lower in the Administrative Assistant but then had improved. However when evaluating [...] as she was taken urgently to the Administrative Assistant this was not replaced. Patient was given Lasix in the Administrative Assistant due to above. I therefore gave him [...] was 102. Avoided for carvedilol with acute LA to start in the morning with parameters. [...] from: Title:Consult Note Author:Sheila POSEY, Fe Chavarria Date:07/09/23 CAD: DAPT, beta-tamika, sta tin, risk [...] Date:08/11/2023 02:20:00 PM Scheduled Provider:Dorie Luis MD Location:[facility] Appointment Type: Open Appointment Date:06/13/2024 11:00:00 AM Scheduled Provider: Location:[facility] Appointment Type: Medicare Wellness Subsequent Future Scheduled Tests Radiology* BD Bone Density DEXA 09/13/22 * MA Mamm Screen w/CAD if perf and 3D Jason 09/13/22 [facility]08-27-2023 Hospital Discharge instructions Patient Education 07/10/2023 10:05:25 Heart Attack, Tqrp-cw-Qghe Heart Attack A heart attack occurs when blood and oxygen supply to the heart is cut off. A heart attack can cause damage to the heart that cannot be fixed. A heart attack is also called a myocardial infarction, or LA. If you think you are having a [...] Follow these instructions at home: Medicines Take ojcw-tgo-sgsvnnd and prescription medicines only as told by [...] provider. Document Revised: 04/22/2022 Document Reviewed: 04/22/2022 Protection Plus Patient Education 2022 [employer]. Follow Up Care 07/09/2023 19:33:14 With:Dorie Luis Address: [address] [place] [address] Business (2) When: Unknown [facility]08-27-2023 NoteAdmission and Discharge Information Admit Date/Time:07/09/2023 [...] patient will additionally be counseled by the Administrative Assistant team and in follow-up. CAD: DAPT, beta-tamika, statin, risk factor modification. Complications None Technique Following full and informed consent the patient was brought to the Administrative Assistant where sterile prep and drape were administered in usual fashion. Anesthesia was obtained in the right wrist with lidocaine after administration of conscious sedation. A 5/6 slender Terumo sheath was placed in the right radial artery without complication. Nitroglycerin and nicardipine were given via the sheath and heparin was given intravenously. A 6 English XB3.0 catheter was advanced and selectively engaged [...] Consulted Consult to Cardiology - Ordered -- 08/26/23 22:30:00 EDT, Consult and Co-manage, FT Heart and Vascular Consult to Office Employee (Office Employee Consult) - Ordered -- 07/09/23 21:58:49 E (more content not included)...[facility] Comment on above:Result Comment: Electronically Signed By: BILL POSEY, Rosalinda\.br\Date and Time Signed: 07/10/23 10:[id number] NoteProcedure [facility] poss PCI via right radial for posterior [...] (I21.3: ST elevation (STEMI) myocardial infarctionof unspecified site)[facility] HospitalComment on above:Result Comment: Electronically Signed By: Sheila POSEY, Tiffany Chavarria\.br\Date and Time Signed: 07/10/23 03:24 [id number] NoteBasic Information Admit Date/Time:07/09/2023 19:33 Chief Complaint [...] called she was taken urgently to the Administrative Assistant after receiving 4782 units of heparin 180 [...] given Lasix 40 mg intravenously in the Administrative Assistant. Patient states that her chest discomfort didnot [...] to burning with potassium (more content not included)...[facility] HospitalComment on above:Result Comment: Electronically Signed By: Bruno CRUZ DO.jihan\Date and Time Signed: 07/09/23 22:49 [id number] Evaluation note* Encounter Date Diagnosis Assessment Notes [...] without current pathological fracture (ICD-10 - M81.0) [facility] Other 06-01-2023 Evaluation note* Encounter Date Diagnosis [...] I will prescribe 1 week supply of Kenner to be taken once to twice daily [...] interventional options in the future, if applicable. [facility] Other 01-12-2023 Hospital Discharge instructions Patient Education [...] height. This can be done either in [place] ([place] or metric measurements. Note that charts are available to help you find your BMI quickly and easily without having to do these calculations yourself. To calculate your BMI in [place] ([place] measurements, your health care provider will: [...] medical problems. BMI can be measured using [place] measurements or metric measurements. To interpret your [...] 07/12/2005 Document Revised: 10/13/2018 Document Reviewed: 09/13/2018 Protection Plus Patient Education 2020 [employer]. [facility] 10-31-2022 Evaluation + Plan note Future Scheduled Tests Radiology* BD Bone Density DEXA 09/13/22 * MA Mamm Screen w/CAD if perf and 3D Jason 09/13/22 [facility] Evaluation + Plan note Future Appointments Appointment Date:11/17/2022 04:40:00 PM Scheduled Provider:Dorie Luis MD Location:[facility] Appointment Type: Open Future Scheduled Tests Radiology* BD Bone Density DEXA 09/13/22 * MA Mamm Screen w/CAD if perf and 3D Jason 09/13/22 [facility] evaluation + Plan note Future Appointments Appointment Date:11/26/2022 01:15:00 PM Scheduled [facility]: [facility]EMG Bilateral Upper Extremity Appointment Date:12/02/2022 03:20:00 PM Scheduled Provider:Dorie Luis MD Location:[facility] Appointment Type: Open Future Scheduled Tests Radiology* BD Bone Density DEXA 09/13/22 * MA Mamm Screen w/CAD if perf and 3D Jason 09/13/22 [facility] Future Appointments Appointment Date:12/01/2022 03:30:00 PM Scheduled Provider: Location:[facility] Appointment Type: Medicare Wellness Initial Appointment Date:12/13/2022 01:00:00 PM Scheduled Provider: [facility] Type:EMG Bilateral Upper Extremity Appointment Date:02/07/2023 03:00:00 PM Scheduled Provider:Dorie Luis MD Location:[facility] Appointment Type:FM Open Future Scheduled Tests Radiology* BD Bone Density DEXA 09/13/22 * MA Mamm Screen w/CAD if perf and 3D Jason 09/13/22 [facility] [place] Evaluation + Plan note Future Appointments Appointment Date:08/11/2023 02:20:00 PM Scheduled Provider:Dorie Luis MD [facility] Appointment Date:09/01/2023 01:45:00 PM Scheduled Provider:Tiffany Jansen MD [facility] App[facility] Type:Cardiology Follow Up (FT) Appointment Date:06/13/2024 11:00:00 AM Scheduled Provider: Location:[facility] Appointment Type:FM Medicare Wellness Subsequent Future Scheduled Tests Radiology* BD Bone Density DEXA 09/13/22 * MA Mamm Screen w/CAD if perf and 3D Jason 09/13/22 [facility] Future Appointments Appointment Date:10/27/2023 01:45:00 PM Scheduled Provider:Tiffany Jansen MD [facility] Appointment Type:Cardiology Follow Up (FT) Appointment Date:06/13/2024 11:00:00 AM Scheduled Provider: Location:[facility] Appointment Type: Medicare Wellness Subsequent Future Scheduled Tests Radiology* BD Bone Density DEXA 09/13/22 * MA Mamm Screen w/CAD if perf and 3D Jason 09/13/22 [facility] Future Appointments Appointment Date:10/13/2023 02:00:00 PM Scheduled Provider:Tiffany Jansen MD [facility] Type:Cardiology Follow Up (FT) Appointment Date:10/27/2023 01:45:00 PM Scheduled Provider:Tiffany Jansen MD [facility] Appointment Type:Cardiology Follow Up (FT) Appointment Date:10/31/2023 04:00:00 PM Scheduled Provider:Dorie Luis MD [facility] Type: Open Appointment Date:06/13/2024 11:00:00 AM Scheduled Provider: Location:[facility] Appointment Type:FM Medicare Wellness [facility] Future App[facility]ments Appointment Date:10/31/2023 04:00:00 PM Scheduled Provider:Dorie Luis MD Location:[facility] Appointment Type:FM Open Appointment Date:11/10/2023 01:00:00 PM Scheduled Provider:Tiffany Jansen MD [facility] Appointment Type:Cardiology Follow Up (FT) Appointment Date:01/06/2024 01:15:00 PM Scheduled Provider:Tiffany Jansen MD [facility] Appointment Type:Cardiology Follow Up (FT) Appointment Date:06/13/2024 11:00:00 AM Scheduled Provider: Location:[facility] Appointment Type: Medicare Wellness [facility] Future App[facility]ments Appointment Date:01/06/2024 01:15:00 PM Scheduled Provider:Tiffany Jansen MD [facility] Appoint[facility] Type:Cardiology Follow Up (FT) Appointment Date:06/13/2024 11:00:00 AM Scheduled Provider: Location:[facility] Appointment Type: Medicare Wellness Subsequent Future Scheduled Tests Laboratory* B-Type Natriuretic Peptide 12/01/23 * Basic Metabolic [facility]01/23 [facility] App[facility]ments Appointment Date:06/13/2024 11:00:00 AM Scheduled Provider: Location:[facility] Appointment Type: Medicare Wellness Subsequent Future Scheduled Tests Laboratory* B-Type Natriuretic Peptide 12/01/23 * Basic Metabolic Panel 12[facility]01/23 [facility] App[facility]ments Appointment Date:06/12/2024 11:00:00 AM Scheduled Provider: Location:[facility] Appointment Type: Medicare Wellness Subsequent Appointment Date:06/26/2024 01:20:00 PM Scheduled Provider: Location:[facility] Appointment Type:FM Lab Draw Appointment Date:06/28/2024 02:30:00 PM Scheduled Provider:Amilcar Matthews PA-C [facility] Type:Cardiology Follow Up (FT) Future Scheduled Tests Laboratory* B-Type Natriuretic Peptide 12/01/23 * Basic Metabolic Panel 12[facility]01/23 [facility] App[facility]ments Appointment Date:06/26/2024 01:20:00 PM Scheduled Provider: Location:[facility] Appointment Type: Lab Draw Appointment Date:07/04/2024 01:00:00 PM Scheduled Provider:Amilcar Matthews PA-C [facility] Type:Cardiology Follow Up (FT) Appointment Date:10/29/2024 03:30:00 PM Scheduled Provider:Dorie Luis MD Location:[facility] Appointment Type: Open Appointment Date:06/18/2025 02:30:00 PM Scheduled Provider: Location:[facility] Appointment Type: Medicare Wellness Subsequent Future Scheduled Tests Laboratory* B-Type Natriuretic Peptide 12/01/23 * Basic Metabolic Panel 12/01/23 [facility] + Plan note Future Appointments Appointment Date:10/03/2024 11:30:00 AM Scheduled Provider:Amilcar Matthews PA-C [facility] Type:Cardiology Follow Up (FT) Appointment Date:10/29/2024 03:30:00 PM Scheduled Provider:Dorie Luis MD Location:[facility] Appointment Type: Open Appointment Date:06/18/2025 02:30:00 PM Scheduled Provider: Location:[facility] Appointment Type: Medicare Wellness Subsequent Future Scheduled Tests Laboratory* B-Type Natriuretic Peptide 12/01/23 * Basic Metabolic Panel 12/01/23 [facility] + Plan note Future Appointments Appointment Date:10/29/2024 03:30:00 PM Scheduled Provider:Dorie Luis MD Location:[facility] Appointment Type: Open Appointment Date:11/02/2024 02:45:00 PM Scheduled Provider:Amilcar Matthews PA-C [facility] Type:Cardiology Follow Up (FT) Appointment Date:06/18/2025 02:30:00 PM Scheduled Provider: Location:[facility] Appointment Type: Medicare Wellness Subsequent Future Scheduled Tests Laboratory* B-Type Natriuretic Peptide 12/01/23 * Basic Metabolic Panel 12/01/23 [facility] Evaluation + Plan note Future Appointments Appointment Date:12/03/2024 11:00:00 AM Scheduled Provider:Lexis Moe MD [facility] Type:Vascular New Patient (FT) Appointment Date:12/14/2024 01:00:00 PM Scheduled Provider:Amilcar Matthews PA-C [facility] Type:Cardiology Follow Up (FT) Appointment Date:01/07/2025 01:00:00 PM Scheduled Provider:Dorie Luis MD Location:[facility] Appointment Type:FM Open Appointment Date:06/18/2025 02:30:00 PM Scheduled Provider: Location:[facility] Appointment Type: Medicare Wellness Subsequent Future Scheduled Tests Laboratory* B-Type Natriuretic Peptide 12/01/23 * Basic Metabolic Panel 12/01/23 [facility] evaluation + Plan note Future Appointments Appointment Date:01/24/2025 10:45:00 AM Scheduled Provider:Dorie Luis MD Location:[facility] Appointment Type:FM Open Appointment Date:06/18/2025 02:30:00 PM Scheduled Provider: Location:[facility] Appointment Type: Medicare Wellness Subsequent Future Scheduled Tests Radiology* US PVR Upper EXT Complete Bilat 01/07/25 * US Upper Extremity Venous Duplex Bilateral 01/07/25 [facility] evaluation noteNo assessment information available [facility] Work Phone: Evaluation noteNo InformationNort SurveyMon[employer] Other Evaluation note* Diagnosis Coronary artery disease- Primary Coronary atherosclerosis of unspecified type of vessel, aniak or graft CAD (coronary artery disease) Coronary atherosclerosis of unspecified type of vessel, aniak or graft Angina pectoris, unspecified (CMS/HCC) Coronary artery disease Coronary atherosclerosis of unspecified type of vessel, aniak or graft documented in this encounter [facility] Work Phone: Evaluation note* Diagnosis HTN (hypertension), benign- Primary Essential hypertension, benign 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 (CMS/HCC) documented in this encounter [facility] Work Phone: Evaluation note* Diagnosis Coronary artery disease- Primary Coronary atherosclerosis of unspecified type of vessel, ani[place] or graft 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 (CMS/HCC) Acute ST elevation myocardial infarction (STEMI) (CMS/HCC) 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 (CMS/HCC) documented in this encounter [facility] Work Phone: History general Narrative - Reported* Type Description Date Medical History hypertension, benign Medical History chronic depression Medical History anxiety Medical History restless leg syndrome Medical History psychiatric disorder Surgical History cholecystectomy Surgical History hysterectomy Surgical History back surgery Hospitalization History See Above [facility] Other Hospital course Narrative No data available for this section [facility] Hospital Discharge instructions No data available for this section [facility] Progress note No data available for this section [facility] Rehtbh for referral (narrative) Referred by: Dorie Luis MD Referred by: Dorie Luis MD [facility] Relttz for referral (narrative)* Consultation (Routine) - Authorized Specialty Diagnoses / Procedures Referred By Ara lares Referred To Contact Cardiac Rehabilitation Diagnoses 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 (CMS/HCC) Acute ST elevation myocardial infarction (STEMI) (CMS/HCC) Noé Sanchez APRN-CNP [address] [place] [address] Referral ID Status Reason Start Date Expiration Date Visits Requested Visits Authorized [id number] Authorized Specialty Services Required 3 10/25/2024 1 1 [facility] Work Phone: Reason for [facility] Referral Update [facility] [employer] Other Summary Purpose Family History No Family [...] Date/ Time Advance Directives No January 27, 2 021 12:08pm Latest Code Status on File Code [...] r20.0 r29.6 r29.2 m48.02 m81.0 Chief Complaint BH m48.02 m81.0 M54.50 Reason for Referral Reason *FU 05/31 Scoliosi s, back and leg pain Diagnosis 1 Cervical stenosis of spine (M48.02) Diagnosis 2 Lumbosacral spondylo sis without myelopathy (M47.817) Diagnosis 3 Scoliosis of lumbar spine, unspecified scoliosis type (M41.9) Referral Organization [facility] Referring Provider First Name Jose Referring Provider Last Name Anthony Referring Provider Specialty Neurologica l Surgery Referred Organization [facility] Referred Provider Keith Gimenez Ref[address] Address [address] [place], [place],[address] Referred Provider Specialty ORTHOPEDIC S URGEON Referral Priority Routine General Notes Yoli Guerrier [...] without current pathological fracture (M81.0) Referral Organization [facility] Referring Provider First Name Jose Referring Provider Last Name Anthony Referring Provider Specialty Neurologica l Surgery Referred Organization [facility] Referred Provider Sindhu Ennis Referred Address [address] [place],[address] Referred Provider Specialty Nurse Obi barclay Referral [...] section and content) DATE CREATED AUTHOR 09/14/2022 [facility] DATE CREATED AUTHOR AUTHOR'S ORGANIZ ATION [facility] DATE CREATED AUTHOR AUTHOR'S ORGANIZ ATION 10/14/2023 [facility] DATE CREATED AUTHOR AUTHOR'S ORGANIZ ATION 10/29/2023 [facility] DATE CREATED AUTHOR AUTHOR'S ORGANIZ ATION 10/30/2023 [facility] DATE CREATED AUTHOR AUTHOR'S ORGANIZ ATION 03/13/2024 [facility] DATE CREATED AUTHOR AUTHOR'S ORGANIZ ATION 05/16/2024 [facility] DATE CREATED AUTHOR AUTHOR'S ORGANIZ ATION 05/17/2024 [facility] DATE CREATED AUTHOR AUTHOR'S ORGANIZ ATION 06/15/2024 [facility] DATE CREATED AUTHOR AUTHOR'S ORGANIZ ATION 07/23/2024 [facility] DATE CREATED AUTHOR AUTHOR'S ORGANIZ ATION 08/13/2024 [facility] DATE CREATED AUTHOR AUTHOR'S ORGANIZ ATION 08/14/2024 [facility] DATE CREATED AUTHOR AUTHOR'S ORGANIZ ATION 10/13/2024 [facility] DATE CREATED AUTHOR AUTHOR'S ORGANIZ ATION 10/30/2024 [facility] DATE CREATED AUTHOR AUTHOR'S ORGANIZ ATION 11/15/2024 [facility] DATE CREATED AUTHOR AUTHOR'S ORGANIZ ATION 11/28/2024 [facility] DATE CREATED AUTHOR AUTHOR'S ORGANIZ ATION 11/29/2024 [facility] DATE CREATED AUTHOR AUTHOR'S ORGANIZ ATION 12/05/2024 [facility] DATE CREATED AUTHOR AUTHOR'S ORGANIZ ATION 12/29/2024 [facility] DATE CREATED AUTHOR AUTHOR'S ORGANIZ ATION 01/08/2025 [facility] Patient Care team informatio n (unrecognized [...] Active Elsy López MD Attending Provider Active Trade Show Coordinator Relationship Specialty Start Date End Date Dorie Luis MD [address] [facility] [place] [address] PCP - General Family Medicine 09/07/23 Trade Show Coordinator Relationship Specialty Start Date End Date Dorie Luis MD [address] [facility] [place] [address] PCP - General Family Medicine 09/07/23 Trade Show Coordinator Relationship Specialty Start Date End Date Dorie Luis MD [address] [facility] [place] [address] PCP - General Family Medicine 09/07/23 Trade Show Coordinator Relationship Specialty Start Date End Date Dorie Luis MD [address] [facility] [place] [address] PCP - General Family Medicine 09/07/23 Trade Show Coordinator Relationship Specialty Start Date End Date Dorie Luis MD [address] [facility] [place] [address] PCP - General Family Medicine 09/07/23 Goals (unrecognized section and content) Goals may be documented in a n alternate section REASON FOR VISIT (unrecogniz ed section and content) Specialty Diagnoses / Procedures Referred By Ara lares Referred To Contact Diagnoses Coronary artery disease Coronary artery disease [I25.10] Procedures [place] PRQ TRLUML CORONARY STENT W/ANGIO ONE ART/[facility] PCI MYNOR Stent- Coronary Tiffany Jansen MD [address] [place] [address] [address] [place] [address] Referral ID Status Reason Start Date Expiration Date Visits Re quested Visits Authorized [id number] 1 Reason Comments Coronary Artery Disease history of [place] Hypertension Referred by Juan Pablo Lares itus for PCI ABSTRACT SEARCHER RCA Specialty Diagnoses / Procedures Referred By Ara lares Referred To Contact Diagnoses 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 (CMS/HCC) 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 (CMS/HCC) [I25.112] Procedures PCI MYNOR Stent- PCI ABSTRACT SEARCHER RCA ([id number]) Bandar Castrejon MD [address] [facility] [address] [place] [address] [address] [place] [address] Referral ID Status Reason Start Date Expiration Date Visits Re quested Visits Authorized [id number] 1 1 Scheduled Active and Recently Administ ered Medications (unrecognized section and content) Medication Order 09/05/2023 09/06/2023 09/07/2023 aspirin chewable tablet 243 mg (COMPLETED) 243 mg, oral, Once, On Tue09/07/23 at 0830, For 1 dose 0838 (Given - Provid er: Brittan Tong, RN) Continuous Medication Order 09/05/2023 09/06/2023 09/07/2023 [...] Sherry Vides RN)1141 (Given - Provider: Sherry Vides, MALACHI - Comment: for procedural sedation)1304 (Given - [...] BE BASED ON THE PRIMARY CLINICAL RECORDS. [employer] [facility]. provides no warranty or guarantee of the accuracy or completeness of information in this document.
== END 2025-01-22 09:16 | disposition home or self-care (01) ==
LOC: CT 09:15
PROVIDERS: PCP Family Medicine; Visit Provider Internal Medicine
DX: F17.219 Nicotine dependence, cigarettes, with unspecified nicotine-induced disorders (principal); Z12.2 Encounter for screening for malignant neoplasm of respiratory organs; R91.8 Other nonspecific abnormal finding of lung field
CPT/HCPCS: 71271

== ENCOUNTER 2025-08-09 09:05 | Emergency (ER) | payer MEDICARE, MEDICAID, SELFPAY ==
--- OUTSIDE RECORDS SUMMARY | 2024-12-20 09:00 | XMS_ITS ---
Author Organization [facility] Serv[facility] es Address [address] [place] [address] Care Team Providers Care Strategic Planning Director Name Role Phone John Moncada Primary Care Provider [phone] Juan Hirsch [phone] REASON FOR VISIT EXT Social History Sex Assigned At : Social History Observation Description Sex Assigned At Female Encounters Encounter Location Date Provider Diagnosis [address] [place] [address] 12/20/2024 Juan Hirsch Plan Of Treatment No Information Progress Notes * ELLA JACOBO KDOB:[birth year] (64 yo F)Acc No.[id number]:12/20/2024 Patient: Deloris MOORE ELLA K Provider: Mielna Hirsch DDS :1960 A ge:64 Y S ex:Female Date:12/20/2024 [id number] Pcp:John Moncada Subjective: * Chief Complaints: * 1 . EXT. * Medical History: Objective: * Vitals: Assessment: Plan: * Treatment: * Images: * Electronic signature of Laz Hirsch DDS on 08/09/2025 at 09:40 AM EDT Sign off status: Pending * Provider: Milena Hirsch DDS Date: 0 12/20/2024 Generated for Jaziel melgar/Percy/eTransmitting on: 0 08/09/2025 09:40 AM EDT
--- OUTSIDE RECORDS SUMMARY | 2025-02-27 09:00 | XMS_ITS ---
Author Organization [facility] [place] Address [address] [place] [address] Care Team Providers Care Commercial Real Estate Broker Name Role Phone Fidencio POSEY, Fly Primary Care Provider Arnaldo Erickson [facility] [phone] REASON FOR VISIT 1YEAR-COPD Encounters Encounter Location Date Provider Diagnosis Pulmonary Medicine [place] [address] [place] [address] 02/27/2025 Arnaldo Lofton Plan Of Treatment No Information Progress Notes * Livia PARISI KDOB:[birth year] (64 yo F)Acc No.[id number]:02/27/2025 UNLOCKED PROGRESS NOTE Follow Up Patient: Livia OVALLES Provider: Aletha Lofton DO :1960 A ge:64 Y S ex:Female Date:02/27/2025 Address:[address] [place], [place] [address] Pcp:lFy Nicolas MD Subjective: * Chief Complaints: * 1 . 1YEAR-COPD. * Medical History: Objective: * Vitals: Assessment: Plan: * Treatment: * * Electronic signature of Mary Lofton DO on 08/09/2025 at 09:42 AM EDT Sign off status: Pending Visit Status: R /S (Rescheduled) * Provider: Aletha Lofton DO Date: 0 02/27/2025 Generated for Printi ng/Faxing/eTransmitting on: 0 08/09/2025 09:42 AM EDT
--- OUTSIDE RECORDS SUMMARY | 2025-03-18 10:00 | XMS_ITS ---
Author Organization [facility] in [place] Address [address] [place] [address] Care Team Providers Care Senior Chemical Process Engineer Name Role Phone Fly Nicolas MD Primary Care Provider Arnaldo Erikcson Unavailable [phone] Allergies Allergen (clinical drug ingredient) Drug/Non Drug Allergy documented on EMR Reaction Allergy Type Onset Date Status BuSpar headache Drug Allergy Active Substance with sulfonamide structure and antibacterial mechanism of action (substance) Sulfa Antibiotics hives Drug Allergy Active Tape rash Allergy Active tramadol Tramadol nausea and vomiting Drug Allergy Active REASON FOR VISIT 1YEAR-COPD Medications Medication SIG (Take, Route, Frequency, Duration) Notes Start Date End Date Status Albuterol Sulfate HFA 108 (90 Base) MCG/ACT 2 puffs as needed for SOB Inhalation Q4H; Duration: 90 days Dispense 3 inhalers Active Atorvastatin Calcium 80 MG Oral; Duration: 30 Days Active Breztri Aerosphere 160-9-4.8 MCG/ACT 2 puffs Inhalation BID; Duration: 90 days Rinse after use; Dispense 3 inhalers Active ALPRAZolam 1 MG TAKE ONE TABLET BY MOUTH FOUR TIMES A DAY Oral; Duration: 30 Days Active amLODIPine Besylate 5 MG TAKE ONE TABLET BY MOUTH ONCE DAILY Oral; Duration: 90 Days Active Ranolazine ER 500 MG Oral; Duration: 30 Days Active rOPINIRole HCl 1 MG TAKE ONE TABLET BY MOUTH ONCE DAILY Oral; Duration: 90 Days Active QUEtiapine Fumarate 200 MG TAKE ONE TABLET BY MOUTH DAILY AT BEDTIME Oral; Duration: 30 Days Active traZODone HCl 100 MG TAKE THREE TABLETS BY MOUTH DAILY AT BEDTIME NEEDED FOR SLEEP Oral; Duration: 30 Days Active Venlafaxine HCl ER 150 MG TAKE TWO CAPSULES BY MOUTH DAILY AT BEDTIME Oral; Duration: 30 Days Active OLANZapine 5 MG TAKE ONE TABLET BY MOUTH DAILY AT BEDTIME Oral; Duration: 30 Days Active Nitroglycerin 0.[address] 1 TABLET UNDER YOUR TONGUE EVERY 5 MINUTES NEEDED FOR CHEST PAIN FOR 3 DOSES ONLY. IF NO RELIEF, CALL 911 Sublingual; Duration: 8 Days Active Isosorbide Mononitrate ER 30 MG Oral; Duration: 30 Days Active lamoTRIgine 25 MG TAKE THREE TABLETS BY MOUTH DAILY AT BEDTIME Oral; Duration: 30 Days Active Social History Tobacco Use: Social History Observation Description Date Details (start date - stop date) Current Smoker NA - NA Tobacco Control (Standard) Question Answer Notes Tobacco use: Current smoker How often do you smoke cigarettes? Every day How many cigarettes a day do you smoke? 21-30 Additional Findings: Tobacco user Heavy cigarett e smoker (20-39 cigs/day) Encounters Encounter Location Date Provider Diagnosis [facility] [address] [address] [place] [address] 03/18/2025 Arnaldo Lofton Plan Of Treatment No Information Procedure Notes * Category Sub-Category Detail Notes PFT Data: 12/09/2020 - Offi ce spirometry-FEV1/FVC: 60%-FEV1: 36%-FVC: 46%-JXT44-48%: 19% -Flow-volume loop: Severe obstruction Alpha-1 Antitrypsin Screening Date: 12/09/2020 Genotype: MM Progress Notes * Livia PARISI KDOB:[birth year] (64 yo F)Acc No.[id number]:03/18/2025 UNLOCKED PROGRESS NOTE Follow Up Patient: Deloris ZARCOLivia SAEED Provider: Aletha Lofton DO :1960 A ge:64 Y S ex:Female Date:03/18/2025 Address:[facility] [address] [facility] Pcp:Fly Nicolas MD Subjective: * Chief Complaints: * 1 . 1YEAR-COPD. 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 * Surgical History: h ysterectomy , tubal ligation , cholecystectomy , back surgery , Cardiac Cath/Stents-[facility] [place]/ . * Hospitalization/Major Diagno stic Procedure: M yocardial infarction-[facility] [place] 07/09/2023. * Family History: F ather: carotid artery stenosis, diagnosed with Unspecified heart disease. M aternalencho Grandmother: Lung cancer, diagnosed with Diabetes mellitus without mention of complication, type II or unspecified type, not stated as uncontrolled, Colon cancer. P aternal Grandfather: diagnosed with Diabetes mellitus without mention of complication, type II or unspecified type, not stated as uncontrolled. P aternal Grandmother: diagnosed with Diabetes mellitus without mention of complication, type II or unspecified type, not stated as uncontrolled. M aternal Grandfather: diagnosed with Diabetes mellitus without mention of complication, type II or unspecified type, not stated as uncontrolled. * Social History: T obacco Use: T obacco Control (Standard) T obacco use: C urrent smoker H ow often do you smoke cigarettes? E very day H ow many cigarettes a day do you smoke? 2 1-30 A dditional Findings: Tobacco user H eavy cigarette smoker (20-39 cigs/day) Electronic Cigarette use C urrent user N o LM: Additional Tobacco Questions N umber of Years Pt Smoked: 4 3 N umber of Packs per Day: 1 M iscellaneous: O ccupation O ccupation: U nemployed Disabled Pets: dogs, cat. D rugs/Alcohol: D rugs H ave you used drugs other than those for medical reasons in the past 12 months? N o D oes the Patient have a History of Drug Abuse in the Past? N o Caffeine I ntake: 1 -2 cups per day Coffee/Soda Do you drink alcohol?: No. Do you smoke marijuana?: Denies. * Medications: T aking Albuterol Sulfate HFA 108 (90 Base) MCG/ACT Aerosol Solution 2 puffs as needed for SOB Inhalation Q4H , Notes to Pharmacist: Dispense 3 inhalers, Taking ALPRAZolam 1 MG Tablet TAKE ONE TABLET BY MOUTH FOUR TIMES A DAY Oral , Taking amLODIPine Besylate 5 MG Tablet TAKE ONE TABLET BY MOUTH ONCE DAILY Oral , Taking Atorvastatin Calcium 80 MG Tablet Oral , Taking Breztri Aerosphere(Fxnkknt-Eyprdxexyfk-Araycztazw) 160-9-4.8 MCG/ACT Aerosol 2 puffs Inhalation BID , Notes to Pharmacist: Rinse after use; Dispense 3 inhalers, Taking Isosorbide Mononitrate ER 30 MG Tablet Extended Release 24 Hour Oral , Taking lamoTRIgine 25 MG Tablet TAKE THREE TABLETS BY MOUTH DAILY AT BEDTIME Oral , Taking Nitroglycerin 0.[address] 1 TABLET UNDER YOUR TONGUE EVERY 5 MINUTES NEEDED FOR CHEST PAIN FOR 3 DOSES ONLY. IF NO RELIEF, CALL 911 Sublingual , Taking OLANZapine 5 MG Tablet TAKE ONE TABLET BY MOUTH DAILY AT BEDTIME Oral , Taking QUEtiapine Fumarate 200 MG Tablet TAKE ONE TABLET BY MOUTH DAILY AT BEDTIME Oral , Taking Ranolazine ER 500 MG Tablet Extended Release 12 Hour Oral , Taking rOPINIRole HCl 1 MG Tablet TAKE ONE TABLET BY MOUTH ONCE DAILY Oral , Taking traZODone HCl 100 MG Tablet TAKE THREE TABLETS BY MOUTH DAILY AT BEDTIME NEEDED FOR SLEEP Oral , Taking Venlafaxine HCl ER 150 MG Capsule Extended Release 24 Hour TAKE TWO CAPSULES BY MOUTH DAILY AT BEDTIME Oral * Allergies: T ramadol: nausea and vomiting - Allergy, BuSpar: headache - Allergy, Sulfa Antibiotics: hives - Allergy, Tape: rash - Allergy. Objective: * Vitals: Assessment: Plan: * Treatment: * Procedures: A lpha-1 Antitrypsin: Screening Date: . Genotype: M M. P FT: Data: 12/09/2020 - Office spirometry -FEV1/FVC: 60% -FEV1: 36% -FVC: 46% -CIV58-57%: 19% -Flow-volume loop: Severe obstruction. ? * Preventive Medicine: Immunization Status: P neumovacc p neumovacc 23- 12/09/2020. I nfluenza 1 11/29/2022. Screenings/Counseling: F ALL RISK SCREENING Fall Risk Assessment: T wo or more falls without injury in the past year Are you afraid of falling? Y es T OBACCO ACTION PLAN Patient counselled on the dangers of tobacco use and urged to quit. 0 02/29/2024 Education on smoking effects provided?02/29/2024 B HI ACTION PLAN Above Normal BMI Follow-up D ietary management education, guidance, and counseling * * Electronic signature of Mary Lofton DO on 08/09/2025 at 09:40 AM EDT Sign off status: Pending Visit Status: R /S (Rescheduled) * Provider: Aletha Lofton DO Date: 0 03/18/2025 Generated for Jaziel melgar/Percy/Duglasitting on: 0 08/09/2025 09:40 AM EDT
--- OUTSIDE RECORDS SUMMARY | 2025-05-16 07:15 | XMS_ITS ---
Author Organization [facility] Address [address] [place] [address] Care Team Providers Care Mobile Equipment Operator Name Role Phone John Moncada Primary Care Provider Juan Hirsch [phone] REASON FOR VISIT EXT Social History Sex Assigned At : Social History Observation Description Sex Assigned At Female Encounters Encounter Location Date Provider Diagnosis [address] [place] [address] 05/16/2025 Juan Hirsch Plan Of Treatment No Information Progress Notes * ELLA JACOBO KDOB:[birth year] (64 yo F)Acc No.[id number]:05/16/2025 Patient: Deloris MOORE ELLA K Provider: Milena Hirsch DDS :1960 A ge:64 Y S ex:Female Date:05/16/2025 [id number] Pcp:John Moncada Subjective: * Chief Complaints: * 1 . EXT. * Medical History: Objective: * Vitals: Assessment: Plan: * Treatment: * Images: * Electronic signature of Laz Hirsch DDS on 08/09/2025 at 09:41 AM EDT Sign off status: Pending * Provider: Milena Hirsch DDS Date: 0 05/16/2025 Generated for Jaziel melgar/Percy/eTransmitting on: 0 08/09/2025 09:41 AM EDT
--- OUTSIDE RECORDS SUMMARY | 2025-05-22 06:00 | XMS_ITS ---
Author Organization [facility] Address [address] [place] [address] Care Team Providers Care Forestry Scientist Name Role Phone John Moncada Primary Care Provider Juan Hirsch [phone] REASON FOR VISIT EXT Social History Sex Assigned At : Social History Observation Description Sex Assigned At Female Encounters Encounter Location Date Provider Diagnosis [address] [place] [address] 05/22/2025 Juan Hirsch Plan Of Treatment No Information Progress Notes * ELLA JACOBO KDOB:[birth year] (64 yo F)Acc No.[id number]:05/22/2025 Patient: Deloris MOORE ELLA K Provider: Milena Hirsch DDS :1960 A ge:64 Y S ex:Female Date:05/22/2025 [id number] Pcp:John Moncada Subjective: * Chief Complaints: * 1 . EXT. * Medical History: Objective: * Vitals: Assessment: Plan: * Treatment: * Images: * Electronic signature of Laz Hirsch DDS on 08/09/2025 at 09:40 AM EDT Sign off status: Pending * Provider: Milena Hirsch DDS Date: 0 05/22/2025 Generated for Jaziel melgar/Percy/eTransmitting on: 0 08/09/2025 09:40 AM EDT
--- OUTSIDE RECORDS SUMMARY | 2025-05-28 10:45 | XMS_ITS ---
Author Organization [facility] [facility] Address [address] [place] [address] Care Team Providers Care Material Requisitioner Name Role Phone John Moncada Primary Care Provider Juan Hirsch Unavailable [phone] Dr. Jori Mcduffie Unavailable [phone] REASON FOR VISIT EXT Social History Sex Assigned At : Social History Observation Description Sex Assigned At Female Encounters Encounter Location Date Provider Diagnosis [facility] [address] [place] [address] 2024 Jori Mcduffie Plan Of Treatment No Information Progress Notes * DONNELL ELLA KDOB:[birth year] (64 yo F)Acc No.[id number]:05/28/2025 Patient: ELLA OVALLES Provider: Maddy Mcduffie DDS :1960 A ge:64 Y S ex:Female Date:05/28/2025 [id number] Pcp:John Moncada Subjective: * Chief Complaints: * 1 . EXT. * Medical History: Objective: * Vitals: Assessment: Plan: * Treatment: * Images: * Electronic signature of Dr. Jori Mcduffie , DMD on 08/09/2025 at 09:41 AM EDT Sign off status: Pending * Provider: Maddy Mcduffie DDS Date: 0 05/28/2025 Generated for Jaziel melgar/Percy/Dodie on: 0 08/09/2025 09:41 AM EDT
[2025-08-09 09:10] VITALS: BP 145/75; PULSE 73; TEMP 36.6; O2SAT 100; BMI 26.0
--- NOTE | 2025-08-09 09:27 | XR_ITS ---
The [address] [address] Patient Name: ELLA JACOBO MRN: [id number] date: 1960 Sex: F Assigned Patient Location: ER Current Patient Location: ED.MAIN Accession/Order Number: [id number] Exam Date: 08/09/2025 09:32 Report Date: 08/09/2025 10:15 At the request of: ANN OMER MD Procedure: XR hip LT 2V w/ pelvis LEFT HIP WITH AP PELVIS - 3 views COMPARISON: CT 09/29/2024 CLINICAL DATA: Left groin pain for the past 3 weeks. Patient fell 3 days ago. AP view of the pelvis as well as AP and frog-lateral views of the left hip were obtained. There is osteopenia. No fracture or dislocation is identified. The hip joint spaces are maintained. There is no prominent hypertrophy. The SI joints are intact. There is levoscoliotic curvature at the imaged lumbar spine along with postoperative and degenerative change. Atherosclerotic disease is seen. No soft tissue abnormalities are present. XR/XR hip LT 2V w/ pelvis IMPRESSION: NO ACUTE BONY FINDINGS. Impression dictated by: Ekaterina James M.D. 08/09/2025 10:15 AM Dictation Location: [place] [address] Electronically authenticated by: [id number] Y Date: 08/09/2025 10:15
--- NOTE | 2025-08-09 09:27 | ED.GENADUL1 ---
HPI HPI - General Adult General Chief complaint: Extremity Injury, Lower Stated complaint: L LOWER EXTREMITY PAIN Time Seen by Provider: 08/09/25 09:24 Source: patient Mode of arrival: Wheelchair Limitations: no limitations History of Present Illness HPI narrative: 64-year-old female presents for pain in her left groin area. She states she fell sometime between 4 and 6 weeks ago and has been hurting since then. She has not had an x-ray. She points to the inner most superior part of her left thigh to indicate where the pain is. She is in hospice because of COPD and she is on Elliott. It has not been helping much. Related Data Home Medications ?Medication ?Instructions ?Recorded ?Confirmed albuterol sulfate 90 mcg/actuation 2 puff inhalation Q4H PRN 03/26/24 08/09/25 aerosol inhaler shortness of breath or wheezing alprazolam 1 mg tablet 1 mg PO QID 03/26/24 08/09/25 atorvastatin 80 mg tablet 80 mg PO DAILY 03/26/24 08/09/25 budesonide 160 mcg-glycopyr 9 2 inh inhalation BID 03/26/24 09/29/24 mcg-formot 4.8 mcg/actuation HFA inhaler (Breztri Aerosphere) isosorbide mononitrate 30 mg 30 mg PO DAILY 03/26/24 08/09/25 tablet,extended release 24 hr lamotrigine 25 mg tablet 75 mg PO BEDTIME 03/26/24 08/09/25 nitroglycerin 0.4 mg sublingual 0.4 mg sublingual Q5M PRN chest 03/26/24 09/29/24 tablet pain olanzapine 5 mg tablet 5 mg PO BEDTIME 03/26/24 09/29/24 quetiapine 100 mg tablet 100 mg PO BEDTIME 03/26/24 09/29/24 ropinirole 1 mg tablet 1 mg PO DAILY 03/26/24 08/09/25 trazodone 100 mg tablet 300 mg PO BEDTIME PRN sleep 03/26/24 08/09/25 venlafaxine 150 mg 300 mg PO BEDTIME 03/26/24 08/09/25 capsule,extended release 24 hr prasugrel HCl 10 mg tablet 10 mg PO DAILY 09/29/24 09/29/24 ranolazine 500 mg tablet,extended 500 mg PO Q12H 09/29/24 09/30/24 release,12 hr losartan 100 mg tablet 100 mg PO DAILY 09/30/24 08/09/25 quetiapine 50 mg tablet 50 mg PO BEDTIME 09/30/24 09/30/24 Previous Rx's ?Medication ?Instructions ?Recorded carvedilol 6.25 mg tablet 12.5 mg (2 x 6.25 mg) PO Q12H #0 09/30/24 tabs oxycodone-acetaminophen 5 mg-325 1 tab PO Q8H PRN MODERATE PAIN 2 09/30/24 mg tablet days #6 tabs Allergies Allergy/AdvReac Type Severity Reaction Status Date / Time buspirone (From BuSpar) Allergy Severe Migraine Verified 08/09/25 09:08 Sulfa (Sulfonamide Allergy Mild Hives Verified 08/09/25 09:08 Antibiotics) pregabalin (From Lyrica) AdvReac Severe Confusion Verified 08/09/25 09:08 bacitracin AdvReac Unknown Unknown Verified 08/09/25 09:08 Opioid HPI Opioid Management Most Recent Opioid Data: Last Pain Scale 9 Today, 09:10 Last ORT Total Score 1 09/29/24, 16:07 Last ORT Risk Category Low Risk 09/29/24, 16:07 Review of Systems ROS Narrative A ten point review of systems is negative except as noted above. PFSH PFSH Medical History Hyperlipidemia ?E78.5 - Hyperlipidemia, unspecified (ICD-10) Restless legs syndrome ?G25.81 - Restless legs syndrome (ICD-10) Panic attack ?F41.0 - Panic disorder [episodic paroxysmal anxiety] (ICD-10) Panic attack ?F41.0 - Panic disorder [episodic paroxysmal anxiety] (ICD-10) Neuropathy ?G62.9 - Polyneuropathy, unspecified (ICD-10) COPD (chronic obstructive pulmonary disease) ?J44.9 - Chronic obstructive pulmonary disease, unspecified (ICD-10) Anxiety ?F41.9 - Anxiety disorder, unspecified (ICD-10) Hypertension ?I10 - Essential (primary) hypertension (ICD-10) Surgical History H/O: hysterectomy ?Z90.710 - Acquired absence of both cervix and uterus (ICD-10) History of lumbar fusion ?Z98.1 - Arthrodesis status (ICD-10) H/O heart artery stent ?Z95.5 - Presence of coronary angioplasty implant and graft (ICD-10) History of cholecystectomy ?Z90.49 - Acquired absence of other specified parts of digestive tract (ICD-10) Family History (Updated 09/29/24 @ 16:29 by Tiny Patel) Mother Family history of cancer Family history of diabetes mellitus Father Family history of diabetes mellitus Family history of hypertension Family history of myocardial infarction Social History (Updated 09/29/24 @ 16:30 by Tiny Patel) Within the past year, how often did you have a drink containing alcohol: never Within the past year, how often did you have six or more drinks on one occasion: never Score interpretation: A score less than 3 is consistent with normal alcohol consumption. Smoking status: Current every day smoker Non-prescribed substance use: denies use Highest level of school completed/degree received: Associate degree: academic program Are you now , , , , never or living with a partner: In a typical week, how many times do you talk on the telephone with family, friends, or neighbors: 3 or more times per week How often do you get together with friends or relatives: 3 or more times per week How often do you attend evangelical or confucianist services: never Do you belong to any clubs or organizations such as evangelical groups unions, fraternal or athletic groups, or school groups: no Total score: 1 Score interpretation: A score of less than or equal to 1 indicates the most socially isolated. Little interest or pleasure in doing things: not at all Feeling down, depressed, or hopeless: not at all Feel stressed/tense/nervous/anxious/difficulty sleeping: to some extent Exam Narrative Exam Narrative: Nurses note and vital signs reviewed and patient is not hypoxic. General:The patient appears well and in no apparent distress.Patient is resting comfortably on cart. Skin:Warm, dry, no pallor noted.There is no rash noted. Head:Normocephalic, atraumatic Eye: Normal conjunctiva, no drainage Ears, Nose, Mouth, and Throat: oral mucosa is moist. Nares patent. Cardiovascular:Regular Rate and Rhythm Respiratory:Patient is in no distress, no accessory muscle use, lungs are clear to auscultation, no wheezing, rales or rhonchi Back:non-tender GI:Normal bowel sounds, no tenderness to palpation, no masses appreciated.No rebound, guarding, or rigidity noted. Musculoskeletal: She has some tenderness in the medial upper thigh region. There is no bruise. Neurological: Awake and alert Psychiatric:Cooperative Constitutional Vital Signs, click to edit/add: Last Vital Signs Temp 98 F 08/09/25 09:10 Pulse 73 08/09/25 09:10 Resp 16 08/09/25 09:10 BP 145/75 H 08/09/25 09:10 Pulse Ox 100 08/09/25 09:10 O2 Del Method Room Air 08/09/25 09:10 Course Vital Signs Vital signs: Vital Signs Temperature 98 F 08/09/25 09:10 Pulse Rate 73 08/09/25 09:10 Respiratory Rate 16 08/09/25 09:10 Blood Pressure 145/75 H 08/09/25 09:10 Pulse Oximetry 100 08/09/25 09:10 Oxygen Delivery Method Room Air 08/09/25 09:10 Temperature 98 F 08/09/25 09:10 Pulse Rate 73 08/09/25 09:10 Respiratory Rate 16 08/09/25 09:10 Blood Pressure 145/75 H 08/09/25 09:10 Pulse Oximetry 100 08/09/25 09:10 Oxygen Delivery Method Room Air 08/09/25 09:10 Medical Decision Making MDM Narrative Medical decision making narrative: X-ray is negative. There is no evidence of acute or healing fracture. She is discharged home. Findings are discussed with the patient. Differential Diagnosis Differential Diagnosis: Muscle strain, fracture Imaging Data Pelvis x-ray: Radiologist's impression: ITS Impressions Hip/Pelvis X-Ray 08/09/25 09:27 IMPRESSION: NO ACUTE BONY FINDINGS. Impression dictated by: Ekaterina James M.D. 08/09/2025 10:15 AM Dictation Location: [place] [address] Electronically authenticated by: [id number] Y Date: 08/09/2025 10:15 Discharge Plan Discharge Chief Complaint: Extremity Injury, Lower Clinical Impression: Pelvic pain Patient Disposition: Home, Self-Care Time of Disposition Decision: 10:27 Condition: Good Mode of Transportation: Private Vehicle Prescriptions / Home Meds: No Action albuterol sulfate 90 mcg/actuation HFA aerosol inhaler 2 puff INHALATION Q4H PRN (Reason: shortness of breath or wheezing) alprazolam 1 mg tablet 1 mg PO QID atorvastatin 80 mg tablet 80 mg PO DAILY Bremannytri Aerosphere 160-9-4.8 mcg/actuation HFA aerosol inhaler 2 inh INHALATION BID isosorbide mononitrate 30 mg tablet extended release 24 hr 30 mg PO DAILY nitroglycerin 0.4 mg tablet, sublingual 0.4 mg sublingual Q5M PRN (Reason: chest pain) olanzapine 5 mg tablet 5 mg PO BEDTIME quetiapine 100 mg tablet 100 mg PO BEDTIME ropinirole 1 mg tablet 1 mg PO DAILY trazodone 100 mg tablet 300 mg PO BEDTIME PRN (Reason: sleep) venlafaxine 150 mg capsule,extended release 24hr 300 mg PO BEDTIME lamotrigine 25 mg tablet 75 mg PO BEDTIME prasugrel HCl 10 mg tablet 10 mg PO DAILY ranolazine 500 mg tablet extended release 12 hr 500 mg PO Q12H losartan 100 mg tablet 100 mg PO DAILY quetiapine 50 mg tablet 50 mg PO BEDTIME Rx Instructions: TAKE WITH 100 MG = 150 MG oxycodone-acetaminophen 5-325 mg Tablet 1 tab PO Q8H PRN (Reason: MODERATE PAIN) 2 Days Qty: 6 0RF carvedilol 6.25 mg tablet 12.5 mg PO Q12H Qty: 0 0RF Print Language: Icelandic Instructions: Muscle Strain (ED) Referrals: DORIE LUIS [Primary Care Provider, Family Practice] - 1 week
--- OUTSIDE RECORDS SUMMARY | 2025-08-09 09:40 | XMS_ITS | Clinical Summary ---
Author Organization [facility] Address [address] [place] [address] Care Team Providers Care Freelance Translator Name Role Phone Fly Nicolas MD Primary Care Provider [phone] Allergies Active Allergy Reactions Criticality Noted Date Comments Buspirone 02/25/2025 migraine Pregabalin 02/25/2025 Sulfa Antibiotics Rash Medium 02/25/2025 Tramadol Medium 10/25/2018 Other Reaction(s): Unknown Medications albuterol HFA 90 mcg/act inhaler Inhale 2 puffs every 4 (four) hours if needed for wheezing Active ALPRAZolam (Xanax) 1 MG tablet Take 1 mg by mouth 4 (four) times a day as needed for anxiety Active aspirin 81 MG EC tablet Take 81 mg by mouth Daily Active atorvastatin (Lipitor) 80 MG tablet Take 80 mg by mouth Daily Active Budeson-Glycopyr rol-Formoterol (Breztri Aerosphere) 160-9-4.8 MCG/ACT aerosol Inhale Acti ve carvedilol (Coreg) 12.5 MG tablet Take by mouth in the morning and in the evening. Take with meals. Active venlafaxine XR (Effexor XR) 150 MG 24 hr capsule Take 150 mg by mouth Daily Do not crush or chew. Active isosorbide mononitrate ER (Imdur) 30 MG 24 hr tablet Take 30 mg by mouth in the morning and 30 mg before bedtime. Do not crush or chew. Active lamoTRIgine (LaMICtal) 25 MG tablet Take 3 tablets by mouth Daily Active losartan (Cozaar) 100 MG tablet Take 100 mg by mouth Daily Active nitroglycerin (Nitrostat) 0.[address] 0.4 mg under the tongue every 5 (five) minutes if needed for chest pain Active prasugrel (Effient) 10 MG tablet Take 10 mg by mouth Active QUEtiapine (SEROquel) 100 MG tablet Take 100 mg by mouth at bedtime Active ranolazine (Ranexa) 500 MG 12 hr tablet Take 500 mg by mouth in the morning and 500 mg before bedtime. Do not crush, chew, or split. Active rOPINIRole (Requip) 1 MG tablet Take 1 mg by mouth at bedtime Active traZODone (Desyrel) 100 MG tablet Take 300 mg by mouth at bedtime Active OLANZapine (ZyPREXA) 5 MG tablet Take 5 mg by mouth at bedtime Active Active Problems No known active problems Family History Medical History Relation Name Comments Heart attack Father Hypertension Father Relation Name Status Comments Father Social History Tobacco Use Types Packs/Day Years Used Date Smoking Tobacco: Every Day Cigarettes Smokeless Tobacco: Never Tobacco Cessation:Ready to Q uit: Not Asked; Counseling Given: Not Answered Comments Unknown Sex and Gender Information Value Date Recorded Sex Assigned at Not on file Legal Sex Female 8:23 PM EDT Gender Identity Not on file Sexual Orientation Not on file Last Filed Vital Signs Vital Sign Reading Time Taken Comments Blood Pressure 144/90 02/25/2025 1:44 PM EDT Pulse - - Temperature - - Respiratory Rate - - Oxygen Saturation - - Inhaled Oxygen Concentration - - Weight 72.6 kg (160 lb) 02/25/2025 1:44 PM EDT Height 157.5 cm (5' 2 ) 02/25/2025 1:44 PM EDT Body Mass Index 29.26 02/25/2025 1:44 PM EDT Plan of Treatment Not on file Insurance MEDICAID [place] AARP MEDICARE COMPLETE Care Teams Freelance Translator Relationship Specialty Start Date End Date Fly Nicolas MD [address] [place] [address] PCP - General Family Medicine 11/26/24
--- OUTSIDE RECORDS SUMMARY | 2025-08-09 09:41 | XMS_ITS | Clinical Summary ---
Author Organization [facility] tem Address [id number] [address] [place] [address] Care Team Providers Care Inspector Multifocal Lens Name Role Phone Unavailable Primary Care Provider Unavailabl e Allergies Active Allergy Reactions Criticality Noted Date Comments Pregabalin 10/25/2018 Sulfa (Sulfonamide Antibiotics) 10/14 Tramadol 10/25/2018 Medications ALPRAZolam (XANAX) 1 mg tablet 09/29/2018 Active carisoprodol (SOMA) 350 mg tablet 09/14/2018 Active gabapentin (NEURONTIN) 800 mg tablet 09/22/2018 Active NORCO 5-325 mg per tablet 08/29/2018 Active metoprolol succinate XL (TOPROL-XL) 25 mg 24 hr tablet 2018 Active potassium chloride (K-DUR,KLOR-CON) 20 MEQ CR tablet 10/16/2018 Ac tive SEROQUEL 400 mg tablet 10/16/2018 Active traZODone (DESYREL) 100 mg tablet 10/16/2018 Active venlafaxine 150 MG tablet extended release 24hr 24 hr tablet 10/16/2018 Active Social History Tobacco Use Types Packs/Day Years Used Date Smoking Tobacco: Every Day Smokeless Tobacco: Never Childcare Answer Date Recorded Childcare Unknown 04/26/2019 Employment Answer Date Recorded Employment Unknown 04/26/2019 Purpose - Life Answer Date Recorded Purpose and direction in life Unknown Comments Unknown Sex and Gender Information Value Date Recorded Sex Assigned at Not on file Legal Sex Female 5:47 PM EDT Gender Identity Not on file Sexual Orientation Not on file Last Filed Vital Signs Vital Sign Reading Time Taken Comments Blood Pressure 122/80 10/25/2018 3:43 PM EST Pulse - - Temperature - - Respiratory Rate - - Oxygen Saturation - - Inhaled Oxygen Concentration - - Weight 70.3 kg (155 lb) 10/25/2018 3:43 PM EST Height 162.6 cm (5' 4 ) 10/25/2018 3:43 PM EST Body Mass Index 26.61 10/25/2018 3:43 PM EST Plan of Treatment Health Maintenance Due Date Last Done Comments Depression Screening 1971 Tobacco Screening 1971 Adult BMI Screening 1977 DTaP,Tdap and Td Vaccines (1 - Tdap) 1978 Zoster (Shingles) Vaccine (1 of 2) 2009 Fall Risk Screening 2024 Influenza Vaccine 07/15/2025 Medical Devices Not on [place] [place] [address] [facility] MEDICAID
--- OUTSIDE RECORDS SUMMARY | 2025-08-09 09:41 | XMS_ITS | Clinical Summary ---
Author Organization [facility] Address [address] [place] [address] Phone Care Team Providers Care Specialist Physician Name Role Phone Fly Nicolas MD Primary Care Provider Allergies Active Allergy Reactions Criticality Noted Date Comments Adhesive Tape-Silicones Other Low 10/05/2023 PAPER TAPE [place] Buspirone Unknown,Headache Medium 09/06/2023 Nicotine Unknown,Rash Low 09/06/2023 Pregabalin Other Medium 09/06/2023 Feels drunk / falls down Sulfa (Sulfonamide Antibiotics) Unknown Medium 10/25/2018 Tramadol Unknown Medium 10/25/2018 Medications albuterol 90 mcg/actuation inhaler Inhale 2 puffs every 4 hours if needed for wheezing. Active ALPRAZolam (Xanax) 1 mg tablet Take 1 tablet (1 mg) by mouth 4 times a day as needed for anxiety. Active amLODIPine (Norvasc) 5 mg tablet Take 1 tablet (5 mg) by mouth once daily. Active aspirin 81 mg EC tablet Take 1 tablet (81 mg) by mouth once daily. Active atorvastatin (Lipitor) 80 mg tablet Take 1 tablet (80 mg) by mouth once daily. Active carvedilol (Coreg) 3.125 mg tablet Take 1 tablet (3.125 mg) by mouth 2 times a day with meals. Active fluticasone-umec lidin-vilanter (Trelegy Ellipta) 100-62.5-25 mcg blister with device Inhale 1 puff once daily. Active isosorbide mononitrate ER (Imdur) 30 mg 24 hr tablet Take 1 tablet (30 mg) by mouth once daily. Do not crush or chew. Active lamoTRIgine (LaMICtal) 25 mg tablet Take 3 tablets (75 mg) by mouth once daily. Active losartan (Cozaar) 50 mg tablet Take 2 tablets (100 mg) by mouth once daily. Active nitroglycerin (Nitrostat) 0.[address] 1 tablet (0.4 mg) under the tongue every 5 minutes if needed for chest pain. Active OLANZapine (ZyPREXA) 10 mg tablet Take 0.5 tablets (5 mg) by mouth once daily at bedtime. Active QUEtiapine (SEROquel) 200 mg tablet Take 2 tablets (400 mg) by mouth once daily at bedtime. Active ranolazine (Ranexa) 500 mg 12 hr tablet Take 1 tablet (500 mg) by mouth 2 times a day. Do not crush, chew, or split. Active rOPINIRole (Requip) 1 mg tablet Take 1 tablet (1 mg) by mouth once daily. Active ticagrelor (Brilinta) 90 mg tablet Take 1 tablet (90 mg) by mouth 2 times a day. Active traZODone (Desyrel) 100 mg tablet Take 3 tablets (300 mg) by mouth once daily at bedtime. Takes 3 100mg tabes at bedtime. Active venlafaxine XR (Effexor-XR) 150 mg 24 hr capsule Take 2 capsules (300 mg) by mouth once daily. Do not crush or chew. Takes 2 capsules at bedtime. Active Active Problems Problem Noted Date Diagnosed Date History of total abdominal hysterectomy 10/05/20 23 Walker as ambulation aid 10/05/2023 Coronary artery disease 09/02/[address] elevation myocardial infarction (STEMI) (Multi) 07/09/2023 Polyneuropathy 02/10/2023 COPD (chronic obstructive pulmonary disease) (Mu lti) 09/15/2022 Anxiety and depression 09/13/2022 Current smoker 09/13/2022 HTN (hypertension), benign 09/13/2022 Primary insomnia 09/13/2022 RLS (restless legs syndrome) 09/13/2022 Social History Tobacco Use Types Packs/Day Years Used Date Smoking Tobacco: Every Day Cigarettes 0.5 43 Alcohol Use Standard Drinks/Week Comments Not Currently 0 (1 standard drink = 0.6 oz pur e alcohol) Comments Unknown Sex and Gender Information Value Date Recorded Sex Assigned at Not on file Legal Sex Female 12:01 PM EDT Gender Identity Not on file Sexual Orientation Not on file Last Filed Vital Signs Vital Sign Reading Time Taken Comments Blood Pressure 121/73 10/26/2023 10:56 AM EST Pulse 75 10/26/2023 10:56 AM EST Temperature 2.2 C (36 F) 10/26/2023 10:56 AM EST Respiratory Rate 18 10/26/2023 10:56 AM EST Oxygen Saturation 99% 10/26/2023 11:15 AM EST Inhaled Oxygen Concentration - - Weight 72.3 kg (159 lb 6.3 oz) 10/26/2023 11:15 AM EST Height 157.5 cm (5' 2 ) 10/26/2023 11:15 AM EST Body Mass Index 29.15 10/26/2023 11:15 AM EST Plan of Treatment Health Maintenance Due Date Last Done Comments CT Colonography 1959 Colonoscopy 1959 Colorectal Cancer Screening 1959 FIT-DNA (Cologuard) 1959 FIT 1959 Lipid Panel 1959 Medicare Annual Wellness Visit (AWV) 1959 Sigmoidoscopy 1959 MMR Vaccines (1 of 1 - Standard series) 1960 Hepatitis C Screening 1977 Cervical Cancer Screening 1980 HPV/Cotest 1980 Pap Smear 1980 Mammogram 1999 Zoster Vaccines (1 of 2) 2009 RSV High Risk: (Elderly (60+) or Population) (1 - Risk 60-74 years 1-dose series) 2019 Bone Density Scan 2024 Diabetes Screening 10/26/2024 10/26/2023, 09/07/2023 COVID-19 Vaccine (1 - season) 2025 Influenza Vaccine (#1) 2025 , 10/14/2022, 09/15/2021, Additional history exists Pneumococcal Vaccine (3 of 3 - PCV20 or PCV21) 12/09/2025 12/09/2020, 07/15/2014 DTaP/Tdap/Td Vaccines (2 - Tdap) 05/19/2032 05/19/2022 HIB Vaccines Aged Out No longer eligi ble based on patient's age to complete this topic HPV Vaccines Aged Out No longer eligi ble based on patient's age to complete this topic Hepatitis A Vaccines Aged Out No long er eligible based on patient's age to complete this topic Hepatitis B Vaccines Aged Out No long er eligible based on patient's age to complete this topic IPV Vaccines Aged Out No longer eligi ble based on patient's age to complete this topic Meningococcal Vaccine Aged Out No gladis winston eligible based on patient's age to complete this topic Rotavirus Vaccines Aged Out No longer eligible based on patient's age to complete this topic Medical Devices Implanted Type Area Rn Documentation Specialist Device Identifier Shelf Expiration Date Model / Serial / Lot Stent, Rufino Xchristen, Us, 3.00 X 48mm - [id number] Implanted:Qty : 1 on 10/26/2023 by Bandar Salcedo MD at [facility] Stent N/A: Coronary [employer] [id number] 12/21/2024 [id number] / / [id number] Stent, Rufino Deand, Mr Us, 3.50 X 38mm - [id number] Implanted:Qty : 1 on 10/26/2023 by Bandar Salcedo MD at [facility] Stent N/A: Coronary [employer] [id number] 02/23/2024 [id number] / / [id number] Procedures Procedure Name Priority Date/Time Associated Diagnosis Comments BASIC METABOLIC PANEL STAT 10/26/2023 10:59 AM EST from Last 3 Months or Most Recently Relevant to Health Maintenance Results * (ABNORMAL) Basic Metabolic Panel (10/26/2023 10:59 AM EST) Glucose 87 74 - 99 mg/dL LAB CHEMISTRY METHOD 10/26/2023 11:27 AM EST [facility] Sodium 137 136 - 145 mmol/L LAB CHEMISTRY METHOD 10/26/2023 11:27 AM [facility] Potassium 5.4(H) 3.5 - 5.3 mmol/L LAB CHEMISTRY METHOD 10/26/2023 11:27 AM [facility] Comment:MARKED HEMOLYSIS DET ECTED. The result may be falsely elevated due to hemolysis or other interferents. Clinical correlation is recommended. Repeat testing may be considered. Chloride 106 98 - 107 mmol/L LAB CHEMISTRY METHOD 10/26/2023 11:27 AM [facility] Bicarbonate 25 21 - 32 mmol/L LAB CHEMISTRY METHOD 10/26/2023 11:27 AM [facility] Anion Gap 11 10 - 20 mmol/L LAB CHEMISTRY METHOD 10/26/2023 11:27 AM [facility] Urea Nitrogen 13 6 - 23 mg/dL LAB CHEMISTRY METHOD 10/26/2023 11:27 AM [facility] Creatinine 0.58 0.50 - 1.05 mg/dL LAB CHEMISTRY METHOD 10/26/2023 11:27 AM [facility] eGFR >90 >60 mL/min/1. 73m*2 LAB CHEMISTRY METHOD 10/26/2023 11:27 AM [facility] Comment: Calculations of estimated GFR are performed using the 2020 CKD-EPI Study Refit equation without the race variable for the IDMS-Traceable creatinine methods. https://jasn.asnjournals.org/content/early//ASN.3236404001 Calcium 8.5(L) 8.6 - 10.3 mg/dL LAB CHEMISTRY METHOD 10/26/2023 11:27 AM [facility] Blood Venous blood specimen / Unknown Venipuncture / Unknown 10/26/2023 10:59 AM EST 10/26/2023 11:04 AM EST Bandar Salcedo MD LAB BLOOD ORDERABLES Final Result [facility] [address] [place] [address] from Last 3 Months or Most Recently Relevant to Health Maintenance Insurance MEDICAID DUAL COMPLETE MEDICAID DUAL COMPLETE Advance Directives For more information, please contact: [phone] (Available ) * Full Code (Latest Code Status on File) Date Activated Date Inactivated Comments 09/07/2023 9:33 AM 09/07/2023 5:23 PM Question Answer Comments Plan of Care: Code Status Discussion Completed Decision Maker: Patient Care Teams Specialist Physician Relationship Specialty Start Date End Date Fly Nicolas MD [address] [facility] [place] [address] PCP - General Family Medicine 09/07/23
--- OUTSIDE RECORDS SUMMARY | 2025-08-09 09:41 | XMS_ITS | Patient Health Record ---
Author Organization [facility] Address [address] [place] [address] Care Team Providers Care Conveyor Attendant Name Role Phone John Moncada Primary Care Provider Juan Hirsch Unavailable [phone] Dr. Jori Mcduffie Unavailable [phone] Silas Woods Unavailable [phone] Shira Plata Unavailable [phone] Allergies Allergen (clinical drug ingredient) Drug/Non Drug Allergy documented on EMR Reaction Allergy Type Onset Date Status Substance with sulfonamide structure and antibacterial mechanism of action (substance) SULFA (uncoded) hives Allergy Active pregabalin Lyrica dizziness Drug Allergy Active Reason For Referral No Information Medications Medication SIG (Take, Route, Frequency, Duration) Notes Start Date End Date Status Spiriva Respimat 2.5 MCG/ACT 2 puffs Inhalation Once a day Unknown Albuterol Sulfate 108 (90 Base) MCG/ACT 2 puffs as needed Inhalation every 6 hrs 09/07/2018 Unknown Symbicort 160-4.5 MCG/ACT 2 puffs Inhalation Twice a day Unknown SEROquel 400 MG 1 tablet Orally Once a day; Duration: 30 day(s) Unknown Vitamin D (Ergocalciferol) 2000 UNIT as directed Orally Unknown Metoprolol Succinate ER 25 MG 1 tablet Orally Once a day Active TRAZADONE 100MG 2 TABS QHS Unknown Effexor XR 150 MG 2 capsule with food Orally QHS; Duration: 30 day(s) Unknown Klor-Con M20 20 MEQ 1 tablet with food Orally twice a day (bid); Duration: 30 day(s) Unknown ALPRAZolam 1 MG 1 tablet Orally thre e times a day Unknown Sodium Chloride 1 GM one half tablet Orally three times a day (tid); Duration: 30 days Unknown rOPINIRole HCl 1 MG 1 tablet 1 to 3 hour s before bedtime Orally Once a day; Duration: 30 day(s) Unknown Lomotil 2.5-0.025 MG 1 tablet as needed Orally Four times a day 12/27/2018 Unknown Gabapentin 800 MG 1 tablet Orally Twic e a day Unknown HYDROcodone-Acetamino phen 5-325 MG 1 tablet as needed Orally every 6 hrs Unknown Immunizations Vaccine Route Administration Date Status Comme nts PREVNAR 13- Adult (Private stock) Unknown 07/15/2014 Ad ministered Social History Tobacco Use: Social History Observation Description Date Details (start date - stop date) Current Smoker NA - NA Sex Assigned At : Social History Observation Description Sex Assigned At Female Tobacco Screen: Question Answer Notes Are you a: current smoker How often do you smoke cigarettes? every day How many cigarettes a day do you smoke? 6-10 How soon after you wake up d o you smoke your first cigarette? within 5 min Are you interested in quitting? Not ready to kurt t Additional Findings: Tobacco User Modera te cigarette smoker (10-19 cigs/day) Sexual Hx: Question Answer Notes Had sex in the last 12 months (vaginal, oral, or anal)? No Have you ever had an STD? No Alcohol Screening: Question Answer Notes Did you have a drink containing alcohol in the p ast year? No Points 0 Interpretation Negative Depression Screening (PHQ-9): Question Answer Notes Little interest or pleasure in doing things Arlyn ral days Feeling down, depressed, or hopeless Nearly ever y day Trouble falling or staying asleep, or sleeping t oo much Nearly every day Feeling tired or having little energy Nearly felicia ry day Poor appetite or overeating Nearly every day Feeling bad about yourself-o r that you are a failure or have let yourself or your family down Several days Trouble concentrating on thi ngs, such as reading the newspaper or watching television Not at all Moving or speaking so slowly that other people could have noticed. Or the opposite being so fidgety or restless that you have been moving around a lot more than usual Not at all Thoughts that you would be b navin off , or of hurting yourself in some way Not at all Total Score 14 Intepretation Moderate Depression Problems Problem Type SNOMED Code ICD Code Onset Dates Problem Status W/U Status Risk Notes Problem Essential hypertension (40156514) Essential (primary) hypertension (I10) Active confirmed Problem Chronic obstructive pulmonary disease (36620151) Chronic obstructive pulmonary disease (COPD) (J44.9) Active confirmed Encounters Encounter Location Date Provider Diagnosis [facility] [address] [place] [address] 08/10/2024 Juan Hirsch [facility] [address] [place] [address] 06/19/2025 Shira Plata Cracked tooth K03.81 Assessments Encounter Date Diagnosis (ICD Code) Assessment Notes Treatment Notes Treatment Clinical Notes Section Notes 06/19/2025 Cracked tooth (ICD-10 - K03.81) Plan Of Treatment No Information Insurance Providers Payer Name Payer Address Payer Phone Subscriber Number Group Number Insured Name Patient Relationship to Insured Coverage Start Date Coverage End Date [facility] [place] [address] [place] [address] [phone] [id number] RUIZ JACOBOCE Self - patient is the insured 8 [facility] [place] [address] [address] [place] [address] [phone] [id number] ELLA JACOBO Self - patient is the insured 4 Medical (General) History Medical History History ICD Code COPD HTN ANXIETY DEPRESSION NEUROPATHY RLS CHRONIC PAIN Low Vitamin D Surgical History Surgery Date(Month/Year) CARPEL TUNNEL GALLBLADDER TOTAL HYSTERECTOMY BACK SURGERY fusion 2007 Hospitalization History Reason Date(Month/Year) RESPIRATORY SURGERIES
--- OUTSIDE RECORDS SUMMARY | 2025-08-09 09:41 | XMS_ITS | Patient Health Record ---
Author Organization 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 Name Role Phone Dorie Luis MD Primary Care Provider Theresa Erickson [facility] [phone] Allergies Allergen (clinical drug ingredient) Drug/Non Drug Allergy documented on EMR Reaction Allergy Type Onset Date Status BuSpar headache Drug Allergy Active Substance with sulfonamide structure and antibacterial mechanism of action (substance) Sulfa Antibiotics hives Drug Allergy Active Tape rash Allergy Active tramadol Tramadol nausea and vomiting Drug Allergy Active Results Component Value Reference Range Notes CT lung screening low-dose Reviewed date:01/22/2025 12:16:56 PM Interpretation: Performing Lab: Notes/Report: Source Facility: [place] [address] CT Scan Report Signed Patient: LIVIA PARISI MR#: [id number] : 1960 Acct:[id number] Age/Sex: 64 / F ADM Date: 01/22/25 Loc: CT Attending Dr: Theresa Fuentes D.O. Ordering Physician: Theresa Fuentes D.O. Date of Service: 01/22/25 Procedure(s): CT lung screening low-dose Accession Number(s): [id number] cc: DORIE LUIS [place] [address] Patient Name: LIVIA PARISI MRN: [id number] date: 1960 Sex: F Assigned Patient Location: CT Current Patient Location: CT Accession/Order Number: [id number] Exam Date: 01/22/2025 10:40 Report Date: 01/22/2025 10:54 At the request of: THERESA FUENTES DO Procedure: CT lung screening low-dose LOW-DOSE SCREENING CHEST CT WITHOUT CONTRAST COMPARISON: 12/30/2023 CLINICAL DATA: Current smoker with 43 pack year history of tobacco use. Spiral axial unenhanced low-dose images were obtained through the chest. Images were reviewed using both narrow and wide window settings. This CT exam was performed using one or more following dose reduction techniques: Automated exposure control, adjustment of the mA and/or kV according to patient size, or use of iterative reconstruction technique. The heart is within normal limits for size. No pericardial effusion is present. There is coronary artery disease. Atherosclerotic plaque is seen at the aorta and proximal great vessels. No aneurysm is present. Similar small nonpathologic mediastinal lymph nodes are noted. There is mild thoracolumbar dextroscoliotic curvature and small endplate spurs at the spine. There is still minor compression deformity at the superior aspect of L1. Scarring and/or atelectasis is visualized at the mid and lower lungs. Tiny groundglass nodular densities are again seen at the right upper lobe. No developing pulmonary nodules are identified. There is no pleural effusion or pneumothorax. Limited cuts through the upper abdomen show no contributory findings. CT/CT lung screening low-dose IMPRESSION: ATELECTASIS AND/OR SCARRING. TINY STABLE RIGHT UPPER LOBE NODULES. NO NEW NODULARITY. Lung RADS category 2 - benign Twelve-month low-dose CT follow-up suggested Impression dictated by: Ekaterina James M.D.01/22/2025 10:54 AM Dictation Location: [place] [address] Electronically authenticated by: [id number] Y Date: 01/22/2025 10:54 Dictated By: Ekaterina James M.D. Signed By: 01/22/25 1057 DD/ 1054 TD/TT: Machine Taper: CT Chest Low Dose for Screen ing* Reviewed date:01/22/2025 12:16:33 PM Interpretation: Performing Lab: Notes/Report: Reason For Referral No Information Medications Medication SIG (Take, Route, Frequency, Duration) Notes Start Date End Date Status Breztri Aerosphere 160-9-4.8 MCG/ACT 2 puffs Inhalation BID; Duration: 90 days Rinse after use; Dispense 3 inhalers Active OLANZapine 5 MG TAKE ONE TABLET BY MOUTH DAILY AT BEDTIME Oral; Duration: 30 Days Active ALPRAZolam 1 MG TAKE ONE TABLET BY MOUTH FOUR TIMES A DAY Oral; Duration: 30 Days Active QUEtiapine Fumarate 200 MG TAKE ONE TABLET BY MOUTH DAILY AT BEDTIME Oral; Duration: 30 Days Active Prasugrel HCl 10 MG Oral; Duration: 30 Days Active rOPINIRole HCl 1 MG TAKE ONE TABLET BY MOUTH ONCE DAILY Oral; Duration: 90 Days Active Atorvastatin Calcium 80 MG Oral; Duration: 30 Days Active Ranolazine ER 500 MG Oral; Duration: 30 Days Active Isosorbide Mononitrate ER 30 MG Oral; Duration: 30 Days Active Venlafaxine HCl ER 150 MG TAKE TWO CAPSULES BY MOUTH DAILY AT BEDTIME Oral; Duration: 30 Days Active Carvedilol 12.5 MG Oral; Duration: 90 Days Active traZODone HCl 100 MG TAKE THREE TABLETS BY MOUTH DAILY AT BEDTIME NEEDED FOR SLEEP Oral; Duration: 30 Days Active Losartan Potassium 100 MG Oral; Duration: 90 Days Active Albuterol Sulfate HFA 108 (90 Base) MCG/ACT 2 puffs as needed for SOB Inhalation Q4H; Duration: 90 days Dispense 3 inhalers Active lamoTRIgine 25 MG TAKE THREE TABLETS BY MOUTH DAILY AT BEDTIME Oral; Duration: 30 Days Active Nitroglycerin 0.[address] 1 TABLET UNDER YOUR TONGUE EVERY 5 MINUTES NEEDED FOR CHEST PAIN FOR 3 DOSES ONLY. IF NO RELIEF, CALL 911 Sublingual; Duration: 8 Days Active Mirtazapine 7.5 MG TAKE ONE TABLET BY MOUTH DAILY AT BEDTIME Oral; Duration: 30 Days Active Immunizations Vaccine Route Administration Date Status Comme nts DTP - historic Unknown 05/19/2022 Administered Flu, Afluria (3287-5674) (90 966) 3 yrs+, single-dose syringe Unknown 09/29/2023 Administered Pneumococcal (Pneumovax 23) Unknown 12/09/2020 Administ ered Pneumococcal (Prevnar 13) Unknown 07/15/2014 Administer ed Social History Tobacco Use: Social History Observation Description Date Details (start date - stop date) Current Smoker NA - NA Tobacco Control (Standard) Question Answer Notes Tobacco use: Current every day smoker Additional Findings: Tobacco user Heavy cigarett e smoker (20-39 cigs/day) Problems Problem Type SNOMED Code ICD Code Onset Dates Problem Status W/U Status Risk Notes Problem Restless legs syndrome (51894513) Restless legs syndrome (G25.81) Active confirmed Problem Chronic respiratory failure (10184957) Chronic respiratory failure with hypoxia (J96.11) Active confirmed Problem Long-term current use of inhaled steroid (158983781) 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.51) Active confirmed Problem Hyperlipidemia (62237831) Hyperlipidemia (E78.5) Active confirmed Problem COPD - Chronic obstructive pulmonary disease (18216301) COPD (chronic obstructive pulmonary disease) (J44.9) Active confirmed Problem Coronary artery disease (23666510) CAD (coronary artery disease) (I25.10) Active confirmed Problem Anxiety (52624262) Anxiety (F41.9) Active confirmed Problem Allergic rhinitis (41579679) Allergic rhinitis (J30.9) Active confirmed Problem Mental disorder caused by drug (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) Cigarette nicotine dependence with nicotine-induced disorder (F17.219) Active confirmed Problem Hypertensive urgency (560114282) Hypertensive urgency (I10) Active confirmed Problem Old myocardial infarction (4659503) History of [place] (myocardial infarction) (I25.2) Active confirmed Vital Signs Heart Rate 98 /min 04/02/2025 Temperature 96.8 degrees Fahrenheit 04/02/2025 Respiratory Rate 18 /min 04/02/2025 Oximetry 93 % 04/02/2025 Blood pressure diastolic 69 mm Hg 04/02/2025 Height 62 in 04/02/2025 Blood pressure systolic 155 mm Hg 04/02/2025 Weight 161.0 lbs 04/02/2025 BMI 29.44 kg/m2 04/02/2025 Encounters Encounter Location Date Provider Diagnosis [facility] [place] [address] [place] [address] 01/24/2025 [facility] [place] [address] [place] [address] 02/27/2025 [facility] [place] [address] [place] [address] 03/18/2025 [facility] [address] [place] [address] 04/02/2025 Theresa Fuentes COPD (chronic obstructive pulmonary disease) J44.9 ; Chronic respiratory failure with hypoxia J96.11 ; Cigarette nicotine dependence with nicotine-induced disorder F17.219 and 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 As she is in Hospice, explained that newer medications that have been released on the market since seen last year (Dupixent and Ohtuvayre) are not options. If she withdraws from Hospice, these could be options for her to try. Recommend she remain on Breztri. Will F/U PRN at this point as she is in Hospice. 04/02/2025 Chronic respiratory failure with hypoxia (ICD-10 - J96.11) Patient states her breathing has improved since being started on O2. She may continue this through Hospice. I counseled her NOT to smoke around O2 so she does not blow herself, her dwelling, or anyone else up. 04/02/2025 Cigarette nicotine dependence with nicotine-induce d disorder (ICD-10 - F17.219) LDCT showed no new abnormalities. Explained now that she is in Hospice, no further lung screening will be performed. If she withdraws and decides to restart LDCT screening, there is the potential of a delay in identifying a cancer. She voiced understanding and okay to stop LDCT screening. Regarding smoking cessation, now that she is in Hospice, I am not going to michelle her to stop smoking as she has pleasure with it. I counseled her not to smoke around the O2. If she withdraws from Hospice, then I would once again strongly recommend that she quit smoking. 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 Plan Of Treatment No Information Insurance Providers Payer Name Payer Address Payer Phone Subscriber Number Group Number Insured Name Patient Relationship to Insured Coverage Start Date Coverage End Date [employer] DUAL PRIMARY MEDICARE [address] [address] [place] [address] [id number] Livia Parisi Self - patient is the insured 4 MEDICAID [place] 2ND INS [address] [facility] [address] [place] [id number] Livia Parisi Self - patient is the insured 4 Medical (General) History Medical History History ICD Code COPD (chronic obstructive pulmonary dise ase) J44.9 RLS (restless legs syndrome) G25.81 HTN (hypertension) I10 Anxiety and depression F41.9 Allergic rhinitis J30.9 Osteoporosis M81.0 LVH (left ventricular hypertrophy) I51.7 Compression fracture of L2 S32.020A Cigarette nicotine dependence with nicot ine-induced disorder F17.219 [facility] (current) use of inhaled stero ids Z79.51 CAD (coronary artery disease) I25.10 Chronic respiratory failure with hypoxia J96.11 History of [place] (myocardial infarction) I2 5.2 Surgical History Surgery Date(Month/Year) Cardiac Cath/Stents-[facility]/ back surgery cholecystectomy tubal ligation hysterectomy Hospitalization History Reason Date(Month/Year) Myocardial infarction-[facility] 07/09/2023 URI-[facility] 03/2025
--- OUTSIDE RECORDS SUMMARY | 2025-08-09 09:43 | XMS_ITS | CCD ---
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 Role Phone Fly Luis Attending Unavailable Fly Luis Attending Unavailable Fly Luis Primary Care Physician [phone] MD Fly Luis Primary Care Provider [phone] MD Elsy López Attending Provider FLY LUIS Primary Care Unavailable CARTER, DR ELSY Mann Consulting Unavailable SAMSA ., THERESA Admitting Unavailable SAMSA ., THERESA Attending Unavailable SAMSA ., THERESA Consulting Unavailable FLY LUIS Primary Care Unavailable BENEGEOVANNACT, DR CHIN Admitting Unavailable BENETEODORO, DR CHIN Attending Unavailable HAY ., DR CHASE Admitting Unavailable HAY ., DR CHASE Consulting Unavailable NADERER, DR MAEVE Abbott Primary Care Unavailable HAY ., DR CHASE Attending Unavailable PHILL WEEKS Consulting Unavailable JULIENNET, IRENA Attending Unavailable FLY LUIS Primary Care Unavailable IRENA SANDHU Admitting Unavailable IRENA SANDHU Consulting Unavailable FLY LUIS Primary Care Unavailable BENETEODORO, DR CHIN Admitting Unavailable DORIS, DR CHIN Consulting Unavailable BENETEODORO, DR CHIN Attending Unavailable Brodie Chong Unavailable MD Jose Cruz Attending Provider Jose Cruz Unavailable Sindhu Ennis Unavailable MD Fly Luis Primary Care Provider [phone] MD Harjeet Hernández Attending Provider Fly Luis Primary Care Physician Fly Luis MD Primary Care Provider POOMMIPANIT, HARIKA B Attending Unavailable FLY LUIS Primary Care Unavailable POOMMIPANIT, HARIKA Salvador Referring Unavailable FLY LUIS Primary Care Unavailable POOMMIPANIT, HARIKA Madeleine Admitting Unavailable POOMMIPANIT, HARIKA Madeleine Attending Unavailable FLY LUIS Primary Care Unavailable OJUKWU, Mbanefo Attending Unavailable OJUKWU, Mbanefo Admitting Unavailable [facility] Cardio, XXXX Consulting Unavailable Fly Luis. Admitting Unavailable Tiffany Jansen Attending Unavaila ble NONE, XXXX Referring Unavailable Tiffany Jansen Admitting Unavaila ble Tiffany Jansen. Referring Unavaila ble Tiffany Jansen. Attending Unavaila ble Tiffany Jansen Attending Unavaila ble NONE, XXXX Referring Unavailable Tiffany Jansen. Attending Unavaila ble Fly Luis Referring Unavailable Fly Luis Attending Unavailable Fly Luis. Attending Unavailable Fly Luis. Attending Unavailable Fly Luis Attending Unavailable Fly Luis Admitting Unavailable Fly Luis Attending Unavailable Fly Luis Attending Unavailable Fly Luis Attending Unavailable Rosalinda KHAN Attending Unavailable Tiffany Jansen Consulting Unavaila ble Bruno CRUZ Admitting Unavailable Tiffany Jansen Consulting Unavaila ble Tiffany Jansen Consulting Unavaila ble Rosa Maria Frausto Attending Unavailable [facility] Cardio, XXXX Consulting Unavailable DO Alec LUTHER Admitting UnavailLawrence Napier Attending Unavailable Tiffany Jansen Attending Unavaila ble NONE, XXXX Referring Unavailable Tiffany Jansen Attending Unavaila ble NONE, XXXX Referring Unavailable Tiffany Jansen. Attending Unavaila ble NONE, XXXX Referring Unavailable TIFFANY JANSEN Admitting Unavailab le TIFFANY JANSEN Attending Unavailab le JANELLE FLYSARABJIT GOSS Primary Care Unavailable TIFFANY JANSEN Referring Unavailab le JANELLE FLY ANA PAULA Primary Care Unavailable Ainsley Rose Attending Unavailable Eligio Lopez Admitting Unavailable Eligio Lopez Attending Unavailable Tiffany Jansen Consulting Unavaila ble Tiffany Jansen Consulting Unavaila ble Tiffany Jansen Consulting Unavaila ble [facility] Cardio, XXXX Consulting Unavailable Lawrence Elise Attending Unavailable Dioni Gallardo Attending Unavailable Edmund Klein Admitting Unavailable Edmund Klein Attending Unavailable [facility] Cardio, XXXX Consulting Unavailable Fly Luis Attending Unavailable LEATHA Matthews Admitting Unavailable LEATHA Matthews Attending Unavailable NONE, XXXX Referring Unavailable Eligio Lopez Admitting Unavailable Eligio Lopez Attending Unavailable Tiffany Jansen Consulting Unavaila ble Tiffany Jansen Consulting Unavaila ble Tiffany Jansen Consulting Unavaila ble [facility] Cardio, XXXX Consulting Unavailable Dioni Gallardo Attending Unavailable Fly Luis Admitting Unavailable Fly Luis Admitting Unavailable Fly Luis Attending Unavailable Edmund Klein Admitting Unavailable Edmund Klein Attending Unavailable [facility] Cardio, XXXX Consulting Unavailable DO Alec LUTHER Attending Unavailcruz LUTHER DO Ronobir R Admitting UnavailElsy Preston Consulting Unavailable MD Elsy López Consulting Unavailable [place], Elsy Consulting Unavailable [place], Elsy Consulting Unavailable [place], Elsy Consulting Unavailable [place], Elsy Consulting Unavailable [place], Elsy Consulting Unavailable [place], Elsy Consulting Unavailable [place], Elsy Consulting Unavailable Alec LUTHER Attending Unavailable Doris Elsy Consulting Unavailable Alec LUTHER R Admitting Unavailable MD Elsy López Consulting Unavailable [place], Elsy Consulting Unavailable [place], Elsy Consulting Unavailable [place], Elsy Consulting Unavailable [place], Elsy Consulting Unavailable [place], Elsy Consulting Unavailable [place], Elsy Consulting Unavailable [place], Elsy Consulting Unavailable Fly Luis Attending Unavailable Fly Luis MD Primary Care Provider [phone] LISSETT VILLEGAS Attending Unavailable Lawrence Elise Attending Unavailable Edmund Klein Attending Unavailable Edmund Klein Admitting Unavailable [facility] Cardio, XXXX Consulting Unavailable Hospitalist Post Disch, Results Reviewer Consult ing Unavailable MD Fly Luis Attending Unavailable MD Fly Luis Attending Unavailable MD Fly Luis Attending MD Fly Muniz Referring Unavailable Lexis Moe Admitting Unavailable Lexis Moe FPascale Attending Unavailable Kadeem Colon Attending Unavailable Elsy López Consulting Unavailable MD Fly Luis Admitting Unavailable MD Fly Luis Attending Unavailable SY BUTLER Attending Unavailable SY BUTLER Attending Unavailable Edmund Klein Admitting Unavailable Kadeem Colon Attending Unavailable MD Fly Luis Attending Unavailable MD Fly Luis Attending Unavailable NONE, XXXX Referring Unavailable Amilcar Matthews Attending Unavailable Amilcar Matthews Admitting Unavailable NONE, XXXX Referring Unavailable Amilcar Matthews Attending Unavailable Philip Hernández Attending Unavailab Philip García Admitting Unavailab Fly Bain Primary Care Unavailable Allergies Allergy Classification Reported Allergen(s) Allergy Type Date of Onset Reaction(s) Facility (20 sources) busPIRone; Translations: [BuSpar] Drug Allergy Migraine (disorder), Unknown (qualifier value) [facility] Rep[facility] (20 sources) Sulfonamides (Antibiotic); Translations: [sulfa drugs] Propensity to adverse reactions (disorder) Eruption of skin (disorder) [facility] Repository (20 sources) pregabalin; Translations: [pregabalin] Drug Allergy 09-06-20 23 Unknown, Other [facility] (20 sources) Sulfamethoxazole ; Translations: [sulfamethoxazol e] Drug Allergy 09-06-20 23 Unknown [facility] (20 sources) Tape 1 Drug allergy Sensitive (qualifier value) [facility] Comment on above: PAPER TAPE [place] (1 source) Adhesive agent Drug allergy (disorder) 01-28-20 20 [facility] Repository (1 source) pregabalin Drug Allergy 03-01-20 15 [facility] Rep[facility] (1 source) Sulfonamides (Antibiotic) Drug allergy (disorder) 08-28-20 14 [facility] Repository (14 sources) traMADol; Translations: [TRAMADOL] Drug Allergy 10-25-20 18 [facility] Repository (16 sources) busPIRone; Translations: [BUSPIRONE] Drug Allergy 09-06-20 23 Unknown, [facility] (5 sources) Sulfacetamide / Sulfur Drug Allergy Unknown [facility] [employer] Other (12 sources) traMADol; Translations: [tramadol] Drug Allergy 10-25-20 Unknown, Vomiting (disorder) [facility] [employer] Other (20 sources) Nicotine; Translations: [nicotine] Drug Allergy 09-06-20 Eruption of skin (disorder), Unknown, Rash [facility] (10 sources) Sulfonamides (Antibiotic); Translations: [SULFA (SULFONAMIDE ANTIBIOTICS)] Drug Intolerance 10-25-20 Unknown, Rash [facility] Work Phone: (8 sources) Adhesive Tape-Silicones; Translations: [ADHESIVE TAPE-SILICONES] Drug Allergy 10-05-20 Other [facility] (20 sources) Adhesive Tape; Translations: [Tape] Propensity to adverse reactions (disorder) [facility] Repository (2 sources) Pregabalin Propensity to adverse reactions 02-26-20 [facility] (1 source) busPIRone Drug Allergy 05-13-20 [facility] Repository (1 source) pregabalin Drug Allergy 05-13-20 [facility] Rep[facility] (1 source) Sulfacetamide Drug Allergy 05-13-20 [facility] (1 source) Sulfur Drug Allergy 05-13-20 [facility] Rep[facility] (1 source) traMADol Drug Allergy 05-13-20 [facility] Rep[facility] (1 source) Unable to Assess Drug allergy (disorder) 06-18-20 [facility] Rep[facility] Medications Current Medications Medication [...] sources) Opioid Agonist Start: 10-10-2024 End: 10-13-2024 [place] 325 mg-5 mg oral tablet 1 tab(s), Oral, q6hr for pain for 3 day(s), 12 tab(s), Refill(s) 0, [facility]/pharmacy #[id number], 162.5, cm, 10/10/24 13:16:00 EST, Height/Length Dosing, 77.7, kg, 10/10/24 13:16:00 EST, Weight Dosing Start Date: 10/10/24 Stop Date: 10/13/24 Status: Ordered Start: 04-14-2023 [...] Refill(s) 0 Start Date: 01/30/19 Status: Ordered [id number] 200 actuat albuterol 0.09 mg/actuat metered dose inhaler (7 sources) beta2-Adrenergic Agonist take 2 puff(s) by inhalation every four hours for wheezing albuterol HFA 90 mcg/act inhaler Inhale 2 puffs every 4 (four) hours if needed for wheezing Active take 2 puff(s) by in halation every four hours for wheezing albuterol 90 mcg/actuation inhaler Inhal e 2 puffs every 4 hours if needed for wheezing. 0 Active Albuterol (Eqv-ProAir HFA) 90 mcg/inh inhalation aerosol (20 sources) Start: 09-13-2022 take 2 puff(s) by inhalation every four [...] Daily, # 90 tab(s), Refills(s) 1, Pharmacy: [facility], 155.8, cm, 05/12/23 16:06:00 EDT, Height/Length Dosing, 79.5, kg, 05/12/23 16:06:00 EDT, Weight Dosing Start Date: 05/12/23 Status: Ordered amoxicillin 500 mg oral capsule (2 sources) Penicillin-class Antibacterial Start: 05-29-2024 take 1 capsule by mouth every twelve hours amoxicillin 500 mg Cap 500 mg = 1 cap(s), Oral, q12hr, # 20 cap(s), Refills(s) 0, Pharmacy: [facility], 154, cm, 05/29/24 15:16:00 EDT, Height/Length Dosing, 74.9, kg, 05/29/24 15:16:00 EDT, Weight Dosing Start Date: 05/29/24 Status: Ordered atorvastatin 80 mg oral tablet (20 sources) HMG-CoA Reductase Inhibitor Start: 08-31-2024 take 1 tablet by mouth once daily atorvastatin 80 mg Tab 80 mg = 1 tab(s), Oral, Daily, # 30 tab(s), Refills(s) 5, Pharmacy: [facility], 154, cm, 08/13/24 9:05:00 EDT, Height/Length Dosing, 75.4, kg, 08/13/24 9:05:00 EDT, Weight Dosing Start Date: 08/31/24 Status: Ordered Start: 09-30-2023 take 1 tablet by [facility] once daily atorvastatin 80 mg Tab 80 mg = 1 tab(s), Oral, Daily, # 30 tab(s), Refills(s) 5, Pharmacy: [facility], 154, cm, 01/06/24 13:29:00 EST, Height/Length Dosing, 70.3, kg, 01/06/24 13:29:00 EST, Weight Dosing Start Date: 03/21/24 Status: Ordered Start: 07-10-2023 take 2 tablets by mo [facility] at bedtime atorvastatin 40 mg Tab 80 mg = 2 tab(s), Oral, Bedtime, # 30 tab(s), Refills(s) 0, Pharmacy: [facility], 154.9, cm, 07/09/23 19:44:00 EDT, Height/Length Dosing, 73, kg, 07/09/23 19:44:00 EDT, Weight Dosing Start Date: 07/10/23 Status: Ordered azithromycin 500 mg oral tablet (1 source) Macrolide Antimicrobial Start: 10-30-2024 take 1 tablet by mouth once daily azithromycin 500 mg oral tablet 500 mg = 1 tab(s), Oral, Daily, # 4 tab(s), Refills(s) 0, Pharmacy: [facility]/pharmacy #[id number], 162, cm, 10/29/24 7:47:00 EST, Height/Length Dosing, 76.9, kg, 10/29/24 11:36:00 EST, Weight Dosing Start Date: 10/30/24 Status: Ordered Start: 10-30-2024 [facility] 500 mg oral tablet 500 mg = 1 tab(s), Oral, Daily, # 4 tab(s), Refills(s) 0, Pharmacy: [facility]/pharmacy #[id number], 162, cm, 10/29/24 7:47:00 EST, Height/Length [...] Refill(s) 0 Start Date: 05/15/24 Status: Ordered 120 actuat budesonide 0.16 mg/actuat / formoterol fumarate 0.0048 mg/actuat / glycopyrrolate 0.009 mg/actuat metered dose inhaler (2 sources) Corticosteroid, beta2-Adrenergic Agonist Budeson-Glycopy rrol-Formoterol (Breztri Aerosphere) 160-9-4.8 MCG/ACT aerosol Inhale Active Calcium (3 sources) Phosphate Binder, Calcium Start: [...] (20 sources) alpha-Adrenergic Tamika, beta-Adrenergic Tamika Start: 10-03-2024 take 1 tablet by mouth twice daily carvedilol 12.5 mg Tab 12.5 mg = 1 tab(s), Oral, BID, # 180 tab(s), Refills(s) 3, Pharmacy: [facility], 162, cm, 11/24/24 17:19:00 EST, Height/Length Dosing, 79.9, kg, 11/24/24 17:19:00 EST, Weight Dosing Start Date: 12/20/24 Status: Ordered Start: 05-16-2024 take 1 tablet by [facility] twice daily carvedilol 6.25 mg Tab 6.25 mg = 1 tab(s), Oral, BID, # 60 tab(s), Refills(s) 3, Pharmacy: [facility], 154, cm, 05/15/24 13:22:00 EDT, Height/Length Dosing, 72.2, kg, 05/15/24 13:22:00 EDT, Weight Dosing Start Date: 05/16/24 Status: Ordered Start: 12-23-2023 take 1 tablet by [facility] twice daily Coreg 3.125 mg Tab 3.125 mg = 1 tab(s), Oral, BID, # 60 tab(s), Refills(s) 3, Pharmacy: [facility], 154, cm, 12/01/23 13:52:00 EST, Height/Length Dosing, 68.6, kg, 12/01/23 14:05:00 EST, Weight Dosing Start Date: 12/23/23 Status: Ordered Start: 07-10-2023 take 1 tablet by [facility] twice daily Coreg 3.125 mg Tab 3.125 mg = 1 tab(s), Oral, BID, # 60 tab(s), Refills(s) 3, Pharmacy: [facility], 154, cm, 09/29/23 9:30:00 EST, [...] Status: Ordered take 1 capsule by [facility] every twenty-four hours Neurontin 100 MG [...] BID, # 180 tab(s), Refills(s) 3, Pharmacy: [facility], 162, cm, 11/24/24 17:19:00 EST, Height/Length [...] day(s), # 30 tab(s), Refills(s) 6, Pharmacy: [facility], 154, cm, 12/01/23 13:52:00 EST, [...] Daily, # 30 tab(s), Refills(s) 5, Pharmacy: [facility], 154, cm, 08/13/24 9:05:00 EDT, Height/Length Dosing, 75.4, kg, 08/13/24 9:05:00 EDT, Weight Dosing Start Date: 08/31/24 Status: Ordered Start: 10-13-2023 take 1 tablet by [facility] once daily losartan 50 mg Tab 50 mg = 1 tab(s), Oral, Daily, # 90 tab(s), Refills(s) 3, Pharmacy: [facility], 154, cm, 10/13/23 14:02:00 EST, Height/Length Dosing, 72.3, kg, 10/13/23 14:02:00 EST, Weight Dosing Start Date: 10/13/23 Status: Ordered Start: 09-13-2022 take 1 tablet by [facility] once daily losartan 100 mg Tab 100 mg = 1 tab(s), Oral, Daily, # 30 tab(s), Refills(s) 2, Pharmacy: [facility], 154, cm, 05/30/24 10:31:00 EDT, Height/Length Dosing, 72.6, kg, 05/30/24 10:33:00 EDT, Weight Dosing Start Date: 05/30/24 Status: Ordered take 2 tablets by mo [facility] once daily losartan (Cozaar) 50 mg tablet [...] day(s), # 21 tab(s), Refills(s) 0, Pharmacy: [facility]/pharmacy #[id number], 162.5, cm, 10/10/24 13:16:00 EST, Height/Length [...] sublingual tablet (20 sources) Nitrate Vasodilator Start: 07-10-2023 nitroglycerin 0.4 mg sublingual Tab 0.4 mg = 1 tab(s), SubLingual, q5min, PRN Chest pain, # 30 tab(s), Refills(s) 6, Pharmacy: [facility], 154, cm, 05/15/24 13:22:00 EDT, Height/Length Dosing, 72.2, kg, 05/15/24 13:22:00 EDT, Weight Dosing Start Date: 05/16/24 Status: Ordered prasugrel 10 mg oral tablet (12 sources) [id number] Platelet Inhibitor Start: 11-13-2024 take 1 tablet by mouth once daily prasugrel 10 mg Tab 10 mg = 1 tab(s), Oral, Daily, # 30 tab(s), Refills(s) 5, Pharmacy: [facility], 162, cm, 11/13/24 11:11:00 EST, Height/Length Dosing, 78.6, kg, 11/13/24 11:11:00 EST, Weight Dosing Start Date: 11/13/24 Status: Ordered Start: 08-08-2024 take 1 tablet by [facility] once daily prasugrel 10 mg Tab 10 mg = 1 tab(s), Oral, Daily, # 30 tab(s), Refills(s) 5, Pharmacy: [facility], 154, cm, 07/04/24 13:11:00 EDT, Height/Length Dosing, 75.4, kg, 07/04/24 13:11:00 EDT, Weight Dosing Start Date: 08/08/24 Status: Ordered Start: 12-01-2023 [facility]as[facility] 10 mg Tab 10 mg = 1 tab(s), Oral, Daily, # 30 tab(s), Refills(s) 3, Pharmacy: [facility], 154, cm, 07/04/24 13:11:00 EDT, Height/Length Dosing, 75.4, kg, 07/04/24 13:11:00 EDT, Weight Dosing Start Date: 07/04/24 Status: Ordered predniSONE 20 mg oral tablet (1 source) Start: 10-30-2024 take 2 tablets by mouth once daily predniSONE 20 mg Tab 40 mg = 2 tab(s), Oral, Daily, # 4 tab(s), Refills(s) 0, Pharmacy: [facility]/pharmacy #[id number], 162, cm, 10/29/24 7:47:00 EST, Height/Length Dosing, 76.9, kg, 10/29/24 11:36:00 EST, Weight Dosing Start Date: 10/30/24 Status: Ordered Start: 10-30-2024 take 2 tablets by [facility] once daily predniSONE 20 mg Tab 40 mg = 2 tab(s), Oral, Daily, # 4 tab(s), Refills(s) 0, [id number] 162, cm, 10/29/24 7:47:00 EST, Height/Length [...] Start: 09-13-2022 take 2 tablets by mo [facility] once daily at bedtime SEROquel 100 mg Tab 200 mg = 2 tab(s), Oral, Once a day (at bedtime), Refills(s) 0 Start Date: 09/13/22 Status: Ordered Start: 01-30-2019 take 1 tablet by [facility] at bedtime quetiapine 100 mg Tab 100 mg = 1 tab(s), Oral, Bedtime, # 270 tab(s), Refills(s) 0 Start Date: 08/13/24 Status: Ordered Start: 01-30-2019 take 400 mg [...] BID, # 60 tab(s), Refills(s) 5, Pharmacy: [facility], 162, cm, 11/24/24 17:19:00 EST, Height/Length Dosing, 79.9, kg, 11/24/24 17:19:00 EST, Weight Dosing Start Date: 12/14/24 Status: Ordered Start: 05-30-2024 take 2 tablets by mo [facility] twice daily Ranexa 500 mg Tab-ER 1,000 mg = 2 tab(s), Oral, BID, # 60 tab(s), Refills(s) 5, Pharmacy: [facility]/pharmacy #[id number], 154, cm, 05/30/24 10:31:00 EDT, Height/Length Dosing, 72.6, kg, 05/30/24 10:33:00 EDT, Weight Dosing Start Date: 05/30/24 Status: Ordered Start: 05-30-2024 take 1 tablet by [facility] twice daily Ranexa 500 mg Tab-ER 500 mg = 1 tab(s), Oral, BID, # 60 tab(s), Refills(s) 5, Pharmacy: [facility]/pharmacy #[id number], 154, cm, 05/30/24 10:31:00 EDT, Height/Length Dosing, 72.6, kg, 05/30/24 10:33:00 EDT, Weight Dosing Start Date: 05/30/24 Status: Ordered Start: 02-17-2024 take 1 tablet by [facility] twice daily Ranexa 500 mg Tab-ER 500 mg = 1 tab(s), Oral, BID, # 60 tab(s), Refills(s) 5, Pharmacy: [facility], 154, cm, 01/06/24 13:29:00 EST, Height/Length Dosing, 70.3, kg, 01/06/24 13:29:00 EST, Weight Dosing Start Date: 02/17/24 Status: Ordered Start: 09-02-2023 take 1 tablet by [facility] twice daily Ranexa 500 mg Tab-ER 500 mg = 1 tab(s), Oral, BID, # 60 tab(s), Refills(s) 3, Pharmacy: [facility], 154, cm, 10/13/23 14:02:00 EST, Height/Length Dosing, 72.3, kg, 10/13/23 14:02:00 EST, Weight Dosing Start Date: 10/13/23 Status: Ordered take 1 tablet by [facility] every twelve hours in the morning ranolazine (Ranexa) 500 MG 12 hr tablet Take 500 mg by mouth in the morning and 500 mg before bedtime. Do not crush, chew, or split. Active rOPINIRole 1 mg oral tablet (20 sources) Nonergot Dopamine Agonist Start: 10-08-2024 take 1 tablet by mouth once daily ropinirole 1 mg Tab 1 mg = 1 tab(s), Oral, Daily, # 90 tab(s), Refills(s) 1, Pharmacy: [facility], 154, cm, 10/08/24 15:13:00 EST, Height/Length Dosing, 78.3, kg, 10/08/24 15:13:00 EST, Weight Dosing Start Date: 11/25/24 Status: Ordered Start: 09-13-2022 take 1 tablet by [facility] once daily ropinirole 1 mg Tab 1 mg = 1 tab(s), Oral, Daily, # 90 tab(s), Refills(s) 1, Pharmacy: [facility], 154, cm, 01/06/24 13:29:00 EST, Height/Length Dosing, 70.3, kg, 01/06/24 13:29:00 EST, Weight Dosing Start Date: 03/14/24 Status: Ordered Start: 01-30-2019 take 1 mg [...] DOSE, # 180 tab(s), Refills(s) 1, Pharmacy: [facility], 154, cm, 07/21/23 14:15:00 EDT, [...] Depression Start Date: 01/30/19 Status: Ordered take 1 capsule by [facility] once daily venlafaxine XR (Effexor XR) 150 MG 24 hr capsule Take 150 mg by mouth Daily Do not crush or chew. Active take 2 capsules by m outh once daily at bedtime venlafaxine XR (Effexor-XR) 150 mg 24 hr capsule Take 2 capsules (300 mg) by mouth once daily. Do not crush or chew. Takes 2 capsules at bedtime. 0 Active Vitamin B 12 500 MCG (5 [...] Coronary atherosclerosis; Translations: [Atherosclerotic heart disease of [place] coronary artery without angina pectoris] Onset: 09-01-2023 Chronic Disorders of lipid metabolism (6 sources) Hyperlipidemia; Translations: [Hyperlipidemia, unspecified] Onset: 10-29-2024 Chronic E Codes: Fall (1 source) Fall; Translations: [Unspecified fall, initial encounter] Onset: 11-24-2024 Episodic Essential hypertension (20 sources) Benign hypertension; Translations: [Essential (primary) hypertension] Onset: 05-21-2022 09-15-2022 Chronic Fluid and electrolyte disorders (2 sources) Hypokalemia; Translations: [Hypokalemia] Onset: 07-09-2023 Episodic Malaise and fatigue (19 sources) Weakness; Translations: [Fatigue] Onset: 03-23-2023 09-29-2023 Episodic Miscellaneous mental health disorders (20 sources) Primary insomnia; Translations: [Primary insomnia] Onset: 09-13-2022 09-15-2022 Chronic Mood disorders (20 sources) Major depressive disorder, single episode, unspecified; Translations: [Depressive disorder] Onset: 05-21-2022 Chronic Comment on above: Added per Dr. Janelle gonzales response, per outpatient [facility]I policy. Nausea and vomiting (1 source) Nausea; Translations: [Nausea] Onset: 08-08-2023 Episodic Nonspecific chest pain (14 sources) Chest pain; Translations: [Chest pain, unspecified] Onset: 09-01-2023 Episodic Comment on above: Added per Dr. Janelle gonzales response, per outpatient CDI policy. Open [...] current use of drug therapy; Translations: [Other usp (current) drug therapy] Onset: 09-01-2023 Episodic Other and unspecified benign neoplasm (1 source) Benign neoplasm of meninges, unspecified; Translations: [BENIGN NEOPLASM OF MENINGES UNS] Onset: 09-12-2022 Chronic Other bone disease and musculoskeletal deformities (1 source) Chondrocostal junction syndrome [Tietze]; Translations: [M94.0] Onset: 10-29-2024 Episodic Other circulatory disease (16 sources) History of acute ST segment elevation [...] the musculoskeletal system] Onset: 11-24-2024 Episodic Other connective tissue disease (4 sources) Recurrent falls ; Translations: [Repeated falls] 02-27-2025 Episodic Other gastrointestinal disorders (1 source) Irritable [...] nutritional; endocrine; and metabolic disorders (2 sources) Body mass index 25-29 - overweight 12-27-2024 Episodic Other nutritional; endocrine; and metabolic disorders (2 sources) Overweight in adulthood with body mass index of 25 or more but less than 30 12-27-2024 Episodic Other upper respiratory infections (11 sources) Sinusitis 05-29-2024 Chronic Peripheral and visceral atherosclerosis (20 sources) Atherosclerosis of aorta; Translations: [Peripheral vascular disease] Onset: 11-24-2024 09-13-2023 Chronic Comment on above: Added per Dr. Janelle gonzales response, per outpatient [facility]I policy. Residual codes; unclassified (4 sources) Dependence on other enabling machines and devices; Translations: [Dependence on other enabling machines] Onset: 10-05-2023 10-05-2023 Chronic Residual codes; unclassified (3 sources) Tobacco user; Translations: [Tobacco use] Onset: 07-09-2023 Episodic Spondylosis; intervertebral disc disorders; other back problems (20 sources) Cervical disc disorder; Translations: [Other cervical disc degeneration, unspecified cervical region] Chronic Spondylosis; intervertebral disc disorders; other back problems (13 sources) Dorsalgia, unspecified; Translations: [Spinal stenosis, cervical [...] Unclassified (1 source) 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 (CMS-HCC); Translations: [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 (CMS-HCC)] Onset: 10-19-2023 Past or Other Problems Problem Classification Problem Date Documented Date Episodic/Chronic E Codes: Natural/environment (1 source) Bitten by dog, initial encounter; Translations: [BITTEN BY DOG INITIAL ENCOUNTER] Onset: 05-21-2022 Episodic Immunizations and screening for infectious disease (1 source) Encounter for immunization; Translations: [ENCOUNTER FOR IMMUNIZATION] Onset: 05-21-2022 Episodic Other aftercare (1 source) 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; Translations: [OTH DETENTION CURRENT DRUG THERAPY] Onset: 09-12-2022 Episodic Other [...] Unclassified (1 source) 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 It is important that you return our call regarding your upcoming appointment upon receiving this letter. Also, at the time of your call, please provide us with your current information. Thank you for your prompt attention to this matter. Sincerely, [address] [address] Riddhi [facility] Family Medicine Office/Clini c Noteon 03-25-2025 Family Medicine Office/Clinic Note Family Medicine Office/Clinic Note Chief Complaint 3m follow up Difficulty in ambulation and recent weight loss. HPI Staff 3m follow up ROHIT referred to neurosurgery due to polyneuropathy & falling. Per pt, they are unable to do anything with back. Did suggest palliative care. LDCT 01/18/25 Patient is here for follow up on hypertension. How often are you checking your blood pressure? _occasionally What are your average readings? _elevated Yearly BMP: _ BUN: 15 mg/dL (11/26/24 05:58:00) Calcium Lvl: 9.1 mg/dL (11/26/24 05:58:00) Chloride: 105 mmol/L (11/26/24 05:58:00) CO2: 29 mmol/L (11/26/24 05:58:00) Creatinine: 0.7 mg/dL (11/26/24 05:58:00) eGFR: 96 mL/min/1.73 m2 (11/26/24 05:58:00) Glucose Lvl: 90 mg/dL (11/26/24 05:58:00) Potassium Lvl: 3.7 mmol/L (11/26/24 05:58:00) Sodium Lvl: 140 mmol/L (11/26/24 05:58:00) Recently admitted to [facility] due to URI. Continues with Zpack & abx therapy. No refills needed at this time. Denies further concerns. History of Present Illness - The patient is a 64-year-old female presenting for COPD evaluation. - History of COPD now requiring 2 liters/minute oxygen, initiated during hospitalization. - The patient reports significant weight loss of approximately 14 pounds since March 19. - Noted dietary intake consists mostly of one meal per day. - Mobility is impaired, necessitating walker use, attributed to potential neuropathy. - She is reducing smoking, especially mindful of oxygen use. - Upper respiratory infection under management with prior Z-Morgan and possible steroids. - Reports anxiety and depression, ongoing follow-up with Dr. Sandhu scheduled. - Discussion about the benefits of smoking cessation highlighted. - Weight monitoring due to recent significant loss. - Management of chronic conditions, including COPD and mental health follow-up. Review of Systems PHQ Score Initial Depression Screen Score: 0 SCORE Physical Exam Vitals & Measurements HR: 74(Peripheral) RR: 20 BP: 138/86 HT: 162 cm HT: 64 in WT: 65 kg WT: 143.3 lb BMI: 24.77 General: alert, no acute distress, significant weight loss noted ENMT: oral mucosa moist Cardiovascular: Regular rate and rhythm, normal peripheral perfusion Respiratory: Lungs clear to auscultation, respirations non labored, on 2 liters of oxygen, using walker for mobility, diminished breath sounds noted Extremities: no deformity, no trauma Neurological: oriented x 4, level of consciousness appropriate for age, CN II-XII intact, motor strength equal & normal bilaterally, speech normal, neuropathy noted Abdomen: Soft, Non-tender, Non-distended, + Bowel sounds Assessment/Plan 1. Smoker (F17.200: Nicotine dependence, unspecified, uncomplicated) - Support cessation efforts. - Discuss Nicotine Replacement Therapy. 2. BMI 24.0-24.9, adult (Z68.24: Body mass index [BMI] 24.0-24.9, adult) - Address weight loss concerns. - Evaluate dietary intake for nutritional intervention. Ordered: Body Mass Index (BMI) documented 3008F Current tobacco non-user 1036F Depression Screening Negative 3352F Discharge medications reconciled with current medications in outpatient record 1111F Influenza immunization status assessed 1030F Medication list documented in medical record 1159F Most recent diastolic blood pressure 80-89 mm Hg 3079F Patient screen for fall risk: no falls in last year or 1 fall with no injury in last year 1101F Review of all meds by a prescribing practitioner or clinical pharmacist documented in EHR 1160F Systolic BP 130-139 mm Hg (Most Recent) 3075F 3. Chronic obstructive pulmonary disease, unspecified (J44.9) - Monitor and adjust oxygen therapy. - Emphasize safe oxygen use if smoking persists. - Reassess mobility limitations due to COPD. - Seeing Pulm 4. Abnormal weight loss (R63.4) - Monitor weight and evaluate cause. - Discuss potential for nutritional support. 5. Acute upper respiratory infection, unspecified (J06.9) - Confirm symptom resolution. - Monitor for recurrences. 6. Anxiety disorder, unspecified (F41.9) - Follow up scheduled with mental health provider. - Wood Gouger for anxiety and depression management. 7. Polyneuropathy, unspecified (G62.9) - Encourage walker use. - Consider further neurological evaluation. - 64-year-old female with a history of COPD presenting with impaired ambulation and significant weight loss. - Oxygen therapy required; follow up on anxiety and depression scheduled. - Significant weight loss impact acknowledged. I discussed with the patient her recent weight loss and mobility issues, reinforcing the need for continued monitoring of her COPD. I emphasized the importance of adhering to oxygen therapy requirements and the potential risks of smoking while on oxygen. We reviewed her history of nicotine dependence and the negative implications it may have on her current respiratory condition. As part of her treatment and follow-up p (more content not included)... Normal [facility] Comment on above: Result Comment: Elec tronically Signed By: Janelle POSEY, Fly Polk.br\Date and Time Signed: 03/25/25 11:34 EDT BMPon 03-20-2025 Anion gap [Moles/Vol] 9 mmol/L Normal 6-16 [facility] Comment on above: Performed By: #### 2 [id number] #### [facility] [address] [place] [address] Calcium [Mass/Vol] 8.8 mg/dL Low 8.9-11.1 [facility] Comment on above: Performed By: #### 2 [id number] #### [facility] [address] [place] [address] Chloride [Moles/Vol] 99 mmol/L Low 101-[address] [facility] Comment on above: Performed By: #### 2 [id number] #### [facility] [address] [place] [address] CO2 [Moles/Vol] 29 mmol/L Normal 21-31 [facility] Comment on above: Performed By: #### 2 [id number] #### [facility] [address] [place] [address] Creatinine [Mass/Vol] 0.7 mg/dL Normal 0.5-1.3 [facility] Comment on above: Performed By: #### 2 [id number] #### [facility] [address] [place] [address] Glucose [Mass/Vol] 106 mg/dL Normal 55-199 [facility] Comment on above: Performed By: #### 2 [id number] #### [facility] [address] [place] [address] Potassium [Moles/Vol] 4.9 mmol/L Normal 3.5-5.3 [facility] Comment on above: Performed By: #### 2 [id number] #### [facility] [address] [place] [address] Sodium [Moles/Vol] 132 mmol/L Low 135-145 [facility] Comment on above: Performed By: #### 2 [id number] #### [facility] [address] [place] [address] Urea nitrogen [Mass/Vol] 21 mg/dL Normal 5-21 [facility] Comment on above: Performed By: #### 2 [id number] #### [facility] [address] [place] [address] Urea nitrogen/Creatinine [Mass ratio] 30 No Units High 10-20 [facility] Comment on above: Performed By: #### 2 [id number] #### [facility] [address] [place] [address] CBC w/ Auto Diffon 5 Basophils/100 WBC (Bld) 0.1 % Normal 0.0-2.0 [facility] Comment on above: Performed By: #### 2 [id number] #### [facility] [address] [place] [address] Basophils/Leukocytes Auto (Bld) [Pure # fraction] 0.0 E9/L Normal 0.0-0.2 [facility] Comment on above: Performed By: #### 2 [id number] #### [facility] [address] [place] [address] Eosinophils (Bld) [#/Vol] 0.0 E9/L Normal 0.0-0.5 [facility] Comment on above: Performed By: #### 2 [id number] #### [facility] [address] [place] [address] Eosinophils/100 WBC (Bld) 0.0 % Normal 0.0-8.0 [facility] Comment on above: Performed By: #### 2 [id number] #### [facility] [address] [place] [address] Erythrocyte distribution width (RBC) [Ratio] 13.3 % Normal 10.9-14.2 [facility] Comment on above: Performed By: #### 2 [id number] #### [facility] [address] [place] [address] Hematocrit (Bld) [Volume fraction] 35.8 % Normal 34.0-46.0 [facility] Comment on above: Performed By: #### 2 [id number] #### [facility] [address] [place] [address] Hemoglobin (Bld) [Mass/Vol] 12.0 g/dL Normal 12.0-16.0 [facility] Comment on above: Performed By: #### 2 [id number] #### [facility] [address] [place] [address] Lymphocytes (Bld) [#/Vol] 1.1 E9/L Normal 1.0-4.0 [facility] Comment on above: Performed By: #### 2 [id number] #### [facility] [address] [place] [address] Lymphocytes/100 WBC (Bld) 16.6 % Normal 14.0-50.0 [facility] Comment on above: Performed By: #### 2 [id number] #### [facility] [address] [place] [address] MCH (RBC) [Entitic mass] 32.8 pg Normal 27.0-34.0 [facility] Comment on above: Performed By: #### 2 [id number] #### [facility] [address] [place] [address] MCHC (RBC) [Mass/Vol] 33.6 g/dL Normal 31.4-36.0 [facility] Comment on above: Performed By: #### 2 [id number] #### [facility] [address] [place] [address] MCV (RBC) [Entitic vol] 97.6 fL Normal 80.0-100.0 [facility] Comment on above: Performed By: #### 2 605376 #### [facility] [address] [place] [address] Monocytes (Bld) [#/Vol] 0.4 E9/L Normal 0.2-1.0 [facility] Comment on above: Performed By: #### 2 [id number] #### [facility] [address] [place] [address] Neutrophils (Bld) [#/Vol] 5.2 E9/L Normal 2.0-7.5 [facility] Comment on above: Performed By: #### 2 [id number] #### [facility] [address] [place] [address] Neutrophils/100 WBC (Bld) 77.8 % High 36.0-75.0 [facility] Comment on above: Performed By: #### 2 [id number] #### [facility] [address] [place] [address] Platelet 179.0 E9/L Normal 150.0-500.0 [facility] Comment on above: Performed By: #### 2 [id number] #### [facility] [address] [place] [address] Platelet mean volume (Bld) [Entitic vol] 8.3 fL Normal 6.4-10.8 [facility] Comment on above: Performed By: #### 2 [id number] #### [facility] [address] [place] [address] RBC (Bld) [#/Vol] 3.7 E12/L Low 4.3-5.9 [facility] Comment on above: Performed By: #### 2 [id number] #### [facility] [address] [place] [address] WBC corrected for nucl RBC Auto (Bld) [#/Vol] 6.7 E9/L Normal 4.0-11.0 [facility] Comment on above: Performed By: #### 2 [id number] #### [facility] [address] [place] [address] CHEMISTRYOrdered By: SYSTEM SYSTEM on 03-20-2025 Anion gap [Moles/Vol] 9 mmol/L Normal 6 - 16 mEq/L Remisol Chem Calcium [Mass/Vol] 8.8 mg/dL Low 8.9 - 11.1 mg/dL Rem[facility] Chem Chloride [Moles/Vol] 99 mmol/L Low 101 - 111 mmol/ L [facility] Chem CO2 [Moles/Vol] 29 mmol/L Normal 21 - 31 mmol/L Remis ol Chem Creatinine [Mass/Vol] 0.7 mg/dL Normal 0.5 - 1.3 mg/dL Rem[facility] Chem eGFR 96 mL/min/1.73 m2 Normal >=59mL/min/1.73 m2 Rem[facility] Chem Glucose [Mass/Vol] 106 mg/dL Normal 55 - 199 mg/dL Re misol Chem Potassium [Moles/Vol] 4.9 mmol/L Normal 3.5 - 5.3 mmol/L [facility] Chem Sodium [Moles/Vol] 132 mmol/L Low 135 - 145 mmol/L [facility] Chem Urea nitrogen [Mass/Vol] 21 mg/dL Normal 5 - 21 mg/dL [facility] Chem Urea nitrogen/Creatinine [Mass ratio] 30 mg/mg High 10 - 20 Remisol Chem Discharge Note-Nursingon Discharge Note-Nursing Discharge Note-Nursing ELLA JACOBO :1960 Visit Date:03/18/2025 Inpatient Discharge Instructions Your Care Team Admitting Physician - Edmund Klein DO Consulting Physician - Hospitalist Post Disch, Results Reviewer Reason for Your Visit chest pains Your Diagnosis Chest pain CAD (coronary artery disease) Anxiety and depression COPD (chronic obstructive pulmonary disease) HLD (hyperlipidemia) Hypertension PVD (peripheral vascular disease) RLS (restless legs syndrome) Tobacco abuse Chest pain Shortness of breath Tests Performed Echo Transthoracic Complete XR Chest Single View This Is Your Medications List Mis Prescription (Handicap Placard, 5 years.) albuterol (Albuterol (Eqv-ProAir HFA) 90 [...] Tab) quetiapine (quetiapine 100 mg Tab) ranolazine (ranolazine 1000 mg oral tablet, extended release) ropinirole (ropinirole 1 mg Tab) trazodone (traZODONE 100 mg Tab) venlafaxine (Effexor XR 150 mg Cap-ER) Procedure History PCI - Percutaneous coronary intervention (07/09/2023), Angioplasty, Gallbladder, Hysterectomy. Discharge Vitals Temperature (Axillary) 36.1 ???C Heart Rate (Monitored) 68 Respiratory Rate 18 Blood Pressure 153/80 What to do next Instructions From Your Doctor Event Name Event Result Discharge Activity Ambulate as tolerated Discharge Restrictions No restrictions Discharge Diet(s) Regular Previously Scheduled Follow-Up Appointments Tuesday 11:00 AM EDT With: Fly Luis MD Where: [address] [address]- Tuesday 2:30 PM EDT With: Where: [address] [address]- New Follow Up Appointments after Discharge Follow Up with Fly Luis When: Comments: Call for followup appointment Where: [address] [place] [address]- Business (2) Medications What How Much When Why Instructions Next Dose Unchanged albuterol (Albuterol (Eqv-ProAir HFA) 90 mcg/ inh inhalation aerosol) 2 Puffs Inhalation Every 4 hours as needed for Shortness of breath or wheezing as needed Resume Unchanged alprazolam (alprazolam 1 mg Tab) 1 Tablets By Mouth 4 times a day as needed for for anxiety Resume Unchanged aspirin (aspirin 81 mg Oral EC Tab) 1 Tablets By Mouth Every day 03/21/25 9am Unchanged atorvastatin (atorvastatin 80 mg Tab) 1 Tablets By Mouth Every day 03/21/25 9am Unchanged budesonide/ formoterol/ glycopyrrolate (Breztri Aerosphere) 2 Puffs Inhalation 2 times a day 03/20/25 8pm Unchanged carvedilol (carvedilol 12.5 mg Tab) 1 Tablets By Mouth 2 times a day 03/20/25 9pm Unchanged isosorbide mononitrate (isosorbide mononitrate 30 mg ER Tab) 1 Tablets By Mouth 2 times a day 03/20/25 9pm Unchanged lamotrigine (Lamictal 25 mg Tab) 3 Tablets By Mouth Once a day (at bedtime) 03/20/25 9pm Unchanged losartan (losartan 100 mg Tab) 1 Tablets By Mouth Every day 03/21/25 9am Unchanged Misc Prescription (Handicap Lotus, 5 years.) [...] minutes as needed for Chest pain As needed Unchanged olanzapine (ZyPREXA 5 mg Tab) 1 Tablets By Mouth Once a day (at bedtime) one tablet at bedtime 03/20/25 9pm Unchanged prasugrel (prasugrel 10 mg Tab) 1 Tablets By Mouth Every day 03/21/25 9am Unchanged quetiapine (quetiapine 100 mg Tab) 150 Milligram By Mouth At bedtime 03/20/25 9pm Unchanged ranolazine (ranolazine 1000 mg oral tablet, extended release) 1 Tablets By Mouth 2 times a day Acute ST elevation myocardial infarction (STEMI) Dose increased on 202403/20/25 9pm Unchanged ropinirole (ropinirole 1 mg Tab) 1 Tablets By Mouth Every day 03/21/25 9am Unchanged trazodone (traZODONE 100 mg Tab) 3 Tablets By Mouth Once a day (at bedtime) 03/20/25 9pm Unchanged venlafaxine (Effexor XR 150 mg Cap-ER) 2 Capsules By Mouth Once a day (at bedtime) 03/20/25 9pm Test Results CBC BMP WBC: 6.7 E9/L (03/20/25 06:35:00) Glucose Lvl: 106 mg/dL (03/20/25 06:35:00) RBC: 3.7 E12/L L (more content not included)... Normal [facility] HEMATOLOGYOrdered By: SYSTEM SYSTEM on 03-20-2025 Basophils/100 WBC (Bld) 0.1 % Normal 0.0 - 2.0 % Remisol Heme Basophils/Leukocytes Auto (Bld) [Pure # fraction] 0.0 E9/L Normal 0.0 - 0.2 E9/L Remisol Heme Eosinophils (Bld) [#/Vol] 0.0 E9/L Normal 0.0 - 0.5 E9/L Remisol Heme Eosinophils/100 WBC (Bld) 0.0 % Normal 0.0 - 8.0 % Remisol Heme Erythrocyte distribution width (RBC) [Ratio] 13.3 % Normal 10.9 - 14.2 % Remisol Heme Hematocrit (Bld) [Volume fraction] 35.8 % Normal 34.0 - 46.0 % Remisol Heme Hemoglobin (Bld) [Mass/Vol] 12.0 g/dL Normal 12.0 - 16.0 gm/dL Remisol Heme Lymphocytes (Bld) [#/Vol] 1.1 E9/L Normal 1.0 - 4.0 E9/L Remisol Heme Lymphocytes/100 WBC (Bld) 16.6 % Normal 14.0 - 50.0 % Remisol Heme MCH (RBC) [Entitic mass] 32.8 pg Normal 27.0 - 34.0 pg Remisol Heme MCHC (RBC) [Mass/Vol] 33.6 g/dL Normal 31.4 - 36.0 gm/dL Remisol Heme MCV (RBC) [Entitic vol] 97.6 fL Normal 80.0 - 100.0 fL Remisol Heme Monocytes (Bld) [#/Vol] 0.4 E9/L Normal 0.2 - 1.0 E9/L Remisol Heme Monocytes/100 WBC (Bld) 5.5 % Normal 4.0 - 14.0 % Remisol Heme Neutrophils (Bld) [#/Vol] 5.2 E9/L Normal 2.0 - 7.5 E9/L Remisol Heme Neutrophils/100 WBC (Bld) 77.8 % High 36.0 - 75.0 % Remisol Heme Platelet 179.0 E9/L Normal 150.0 - 500.0 E9/L Remiso l Heme Platelet mean volume (Bld) [Entitic vol] 8.3 fL Normal 6.4 - 10.8 fL Remisol Heme RBC (Bld) [#/Vol] 3.7 E12/L Low 4.3 - 5.9 E12/L Re misol Heme WBC corrected for nucl RBC Auto (Bld) [#/Vol] 6.7 E9/L Normal 4.0 - 11.0 E9/L Remisol Heme Inpatient Clinical Summaryon 03-20-2025 Inpatient Clinical Summary Inpatient Clinical Summary [place] [id number] Clinical Summary Person Information: Name: ELLA JACOBO Age: 64 Years : 1960 Sex: Female PCP: Fly Luis MD Marital Status: Race: White Ethnicity: Non- or Language: [place]ib[place]ian Visit Id: Visit Reason: Shortness of breath; Chest pain; CP Speciality: Acuity: Enc Type: Observation Med Service: Medical Arrival: 03/18/2025 13:48:54 Discharge: Dispo Type: Admitted as IP to this Hosp Address: [address] [place] [id number] Provider Notes: Diagnosis: 1:Chest pain; 2:CAD (coronary artery disease); 3:Anxiety and depression; 4:COPD (chronic obstructive pulmonary disease); 5:HLD (hyperlipidemia); 6:Hypertension; 7:PVD (peripheral vascular disease); 8:RLS (restless legs syndrome); 9:Tobacco abuse Problems Active Smoker Overweight (BMI 25.0-29.9) BMI 28.0-28.9,adult PVD (peripheral vascular disease) CAD (coronary artery [...] insomnia (09/13/2022) RLS (restless legs syndrome) (09/13/2022) Smoking Status: Current Every Day Smoker Functional Status: Sensory Deficits: History of Falls: Mobility Assistance Prior to Admission: ADLs: Independent Current Level of Assistance for Self-Care/Mobility: Cognitive Status: Oriented x 3 Allergies BuSpar (Migraine) (Unknown) Lyrica (Feels drunk, falls down) sulfamethoxazole (Unknown (origin)) Tape (Sensitive) sulfa drugs (Rash) Nicotine Patch (Rash) traMADol (Vomiting) Measurements: Height: 162 cm Weight: 72.9 kg Blood Pressure: 153 mmHg / 80 mmHg BMI: 28.2 kg/m2 Procedures No Procedures Documented Immunizations No [...] Mouth 2 times a day. Refills: 3. lamotrigine (Lamictal 25 mg Tab) 3 Tablets By Mouth once a day (at bedtime). losartan (losartan 100 mg Tab) 1 Tablets By Mouth every day. Refills: 3. Misc Prescription (Handicap Placard, 5 years.) Handicap [...] 150 Milligram By Mouth at bedtime. ranolazine (ranolazine 1000 mg oral tablet, extended release) 1 Tablets By Mouth 2 times a day. Dose increased on 01/17/2025. Refills: 1. ropinirole (ropinirole 1 mg Tab) 1 Tablets By Mouth every day. Refills: 1. trazodone (traZODONE 100 mg Tab) 3 Tablets By Mouth once a day (at bedtime). venlafaxine (Effexor XR 150 mg Cap-ER) 2 Capsules By Mouth once a day (at bedtime). Care Team Members: Attending Physician: Edmund Klein DO Consulting Physician: Hospitalist Post Disch, Results Reviewer Referring Physician: Follow up: With: Address: When: Fly Luis [facility] [place] [address] [facility] (2) Comments: Call for followup appointment Type Location Start Finish State [facility] 11:00 AM 03/25/2025 11:20 AM Confirmed [facility] Medicare Wellness [facility] 2:30 PM 06/18/2025 3:30 PM Confirmed Patient Education Information: Normal [facility] Inpatient Patient Summaryon 03-20-2025 Inpatient Patient Summary Inpatient Patient Summary [address] [address] Patient Discharge Instructions PERSON INFORMATION Name: ELLA JACOBO Date of : 1960 Current Date: 03/20/2025 12:32:32 PHYSICIANS Admitting Physician: Edmund Klein DO Primary Care Physician: Fly Luis MD PCP Comment: Discharge Diagnosis: 1:Chest pain; 2:CAD (coronary artery disease); 3:Anxiety and depression; 4:COPD (chronic obstructive pulmonary disease); 5:HLD (hyperlipidemia); 6:Hypertension; 7:PVD (peripheral vascular disease); 8:RLS (restless legs syndrome); 9:Tobacco abuse Condition at Discharge: Stable ELLA JACOBO has been given the following list [...] to provide the following pending test results: Follow up: With: Address: When: Fly Luis [facility] [place] [address] Business (2) Comments: Call for followup appointment In the event that this physician does not participate in your insurance network, please consult with your insurance company to find a nearby participating provider. Type Location Start Finish State FM Open [facility] 03/25/2025 11:00 AM 03/25/2025 11:20 AM Confirmed Medicare Wellness Subsequent [facility] 06/18/2025 2:30 PM 06/18/2025 3:30 PM Confirmed Comment: IDONNELL ALICE, have received the attached patient education [...] day. Refills: 3. Last Dose: Next Dose: isosorbide mononitrate (isosorbide mononitrate 30 mg ER Tab) 1 Tablets By Mouth 2 times a day. Refills: 3. Last Dose: Next Dose: lamotrigine (Lamictal 25 mg Tab) 3 Tablets By Mouth once a day (at bedtime). Last Dose: Next Dose: losartan (losartan 100 mg Tab) 1 Tablets By Mouth every day. Refills: 3. Last Dose: Next Dose: Misc Prescription (Handicap Placard, 5 years.) Handicap Placard, 5 years.. Refills: 0. Last Dose: Next Dose: nitroglycerin (nitroglycerin 0.4 mg sublingual Tab) 1 Tablets Sublingual every 5 minutes as needed Chest pain. Refills: 6. Last Dose: Next Dose: olanzapine (ZyPREXA 5 mg Tab) 1 Tablets By Mouth once a day (at bedtime). one tablet at bedtime. Last Dose: Next Dose: prasugrel (prasugrel 10 mg Tab) 1 Tablets By Mouth every day. Refills: 5. Last Dose: Next Dose: quetiapine (quetiapine 100 mg Tab) 150 Milligram By Mouth at bedtime. Last Dose: Next Dose: ranolazine (ranolazine 1000 mg oral tablet, extended release) 1 Tablets By Mouth 2 times a day. Dose increased on 01/17/2025. Refills: 1. Last Dose: Next Dose: ropinirole (ropinirole 1 mg Tab) 1 Tablets By Mouth every day. Refills: 1. Last Dose: Next Dose: trazodone (traZODONE 100 mg Tab) 3 Tablets By Mouth once a day (at bedtime). Last Dose: Next Dose:__ (more content not included)... Normal [facility] Interdisciplinary Note - Layo e Manageron 03-20-2025 Interdisciplinary Note - Supervisor Heading Interdisciplinary Note - Supervisor Heading CRM to room 303 Patient is awake, alert and oriented. Patient is from home with family. [place]. Patient home is 2 story she has to utilize both floors for showering. Patient uses a FWW at home and has assistance from family as needed when they are home. Patient came in as observation for CP. Wong form was completed on 03/18. Patient is assigned to Dr Colon, see notes. She has cardiology consult, they cleared her for OP f/u. Patient has no PT or OT needs. Per Patient her PCP was setting her up with Palliative care. CRM will make a referral to [facility]. They had a meeting with patient yesterday. Patient today has decided she wants to sign on with there hospice services. Patient will need home set up / equipment arranged. [facility] will be back in here around 1030 AM. Patient declined any needs for HH, Paramed or DME at this time. Patient is on 2L NC and she does not wear at home. She will need weaned or desat for home oxygen. Patient was provided CRM contact, colleen merlos updated. CRM Following DC date possible today, CRM will get updates at [address] Colon from Hospice to CRM She is agreeable to hospice. I'm having the oxygen delivered here as she said her girls can pick her up. I'll be hanging around til I know it's here and ready. We should be able to get her out this PM! Normal [facility] Comment on above: Result Comment: Elec tronically Signed By: Shikha Morales\.br\Date and Time Signed: 03/20/25 11:43 EDT eGFRon 03-20-2025 eGFR 96 mL/min/1.73 m2 Normal >=59 [facility] Comment on above: Performed By: #### 1 [id number] #### [facility] [address] [place] [address] BMPon 03-19-2025 Anion gap [Moles/Vol] 10 mmol/L Normal 6-16 [facility] Comment on above: Performed By: #### 2 [id number] #### [facility] [address] [place] [address] Calcium [Mass/Vol] 9.0 mg/dL Normal 8.9-11.1 [facility] Comment on above: Performed By: #### 2 [id number] #### [facility] [address] [place] [address] Chloride [Moles/Vol] 102 mmol/L Normal 101-[address] [facility] Comment on above: Performed By: #### 2 [id number] #### [facility] [address] [place] [address] Creatinine [Mass/Vol] 0.7 mg/dL Normal 0.5-1.3 [facility] Comment on above: Performed By: #### 2 [id number] #### [facility] [address] [place] [address] Glucose [Mass/Vol] 159 mg/dL Normal 55-199 [facility] Comment on above: Performed By: #### 2 [id number] #### [facility] [address] [place] [address] Potassium [Moles/Vol] 4.3 mmol/L Normal 3.5-5.3 [facility] Comment on above: Performed By: #### 2 [id number] #### [facility] [address] [place] [address] Sodium [Moles/Vol] 136 mmol/L Normal 135-145 [facility] Comment on above: Performed By: #### 2 [id number] #### [facility] [address] [place] [address] Urea nitrogen [Mass/Vol] 15 mg/dL Normal 5-21 [facility] Comment on above: Performed By: #### 2 [id number] #### [facility] [address] [place] [address] Urea nitrogen/Creatinine [Mass ratio] 21 No Units High 10-20 [facility] Comment on above: Performed By: #### 2 [id number] #### [facility] [address] [place] [address] CO2 [Moles/Vol] 28 mmol/L Normal 21-31 [facility] Comment on above: Performed By: #### 2 [id number] #### [facility] [address] [place] [address] CBC w/ Auto Diffon 5 Basophils/100 WBC (Bld) 0.5 % Normal 0.0-2.0 [facility] Comment on above: Performed By: #### 2 [id number] #### [facility] [address] [place] [address] Basophils/Leukocytes Auto (Bld) [Pure # fraction] 0.0 E9/L Normal 0.0-0.2 [facility] Comment on above: Performed By: #### 2 [id number] #### [facility] [address] [place] [address] Eosinophils (Bld) [#/Vol] 0.0 E9/L Normal 0.0-0.5 [facility] Comment on above: Performed By: #### 2 [id number] #### [facility] [address] [place] [address] Eosinophils/100 WBC (Bld) 0.0 % Normal 0.0-8.0 [facility] Comment on above: Performed By: #### 2 [id number] #### [facility] [address] [place] [address] Erythrocyte distribution width (RBC) [Ratio] 13.6 % Normal 10.9-14.2 [facility] Comment on above: Performed By: #### 2 [id number] #### [facility] [address] [place] [address] Hematocrit (Bld) [Volume fraction] 41.4 % Normal 34.0-46.0 [facility] Comment on above: Performed By: #### 2 [id number] #### [facility] [address] [place] [address] Hemoglobin (Bld) [Mass/Vol] 14.2 g/dL Normal 12.0-16.0 [facility] Comment on above: Performed By: #### 2 [id number] #### [facility] [address] [place] [address] Lymphocytes (Bld) [#/Vol] 0.6 E9/L Low 1.0-4.0 [facility] Comment on above: Performed By: #### 2 [id number] #### [facility] [address] [place] [address] Lymphocytes/100 WBC (Bld) 20.4 % Normal 14.0-50.0 [facility] Comment on above: Performed By: #### 2 [id number] #### [facility] [address] [place] [address] MCH (RBC) [Entitic mass] 32.9 pg Normal 27.0-34.0 [facility] Comment on above: Performed By: #### 2 [id number] #### [facility] [address] [place] [address] MCHC (RBC) [Mass/Vol] 34.3 g/dL Normal 31.4-36.0 [facility] Comment on above: Performed By: #### 2 [id number] #### [facility] [address] [place] [address] MCV (RBC) [Entitic vol] 96.0 fL Normal 80.0-100.0 [facility] Comment on above: Performed By: #### 2 [id number] #### [facility] [address] [place] [address] Monocytes (Bld) [#/Vol] 0.1 E9/L Low 0.2-1.0 [facility] Comment on above: Performed By: #### 2 [id number] #### [facility] [address] [place] [address] Neutrophils (Bld) [#/Vol] 2.2 E9/L Normal 2.0-7.5 [facility] Comment on above: Performed By: #### 2 [id number] #### [facility] [address] [place] [address] Neutrophils/100 WBC (Bld) 77.2 % High 36.0-75.0 [facility] Comment on above: Performed By: #### 2 [id number] #### [facility] [address] [place] [address] Platelet mean volume (Bld) [Entitic vol] 8.3 fL Normal 6.4-10.8 [facility] Comment on above: Performed By: #### 2 [id number] #### [facility] [address] [place] [address] Platelets (Bld) [#/Vol] 177.0 E9/L Normal 150.0-500.0 [facility] Comment on above: Performed By: #### 2 [id number] #### [facility] [address] [place] [address] RBC (Bld) [#/Vol] 4.3 E12/L Normal 4.3-5.9 [facility] Comment on above: Performed By: #### 2 [id number] #### [facility] [address] [place] [address] WBC corrected for nucl RBC Auto (Bld) [#/Vol] 2.8 E9/L Low 4.0-11.0 [facility] Comment on above: Performed By: #### 2 [id number] #### [facility] [address] [place] [address] CHEMISTRYOrdered By: SYSTEM SYSTEM on 03-19-2025 Anion gap [Moles/Vol] 10 mmol/L Normal 6 - 16 mEq/L [facility] Calcium [Mass/Vol] 9.0 mg/dL Normal 8.9 - 11.1 mg/dL [facility] Chloride [Moles/Vol] 102 mmol/L Normal 101 - 111 mmol/ L [facility] Creatinine [Mass/Vol] 0.7 mg/dL Normal 0.5 - 1.3 mg/dL [facility] eGFR 96 mL/min/1.73 m2 Normal >=59mL/min/1.73 m2 [facility] Glucose [Mass/Vol] 159 mg/dL Normal 55 - 199 mg/dL Re misol Chem Potassium [Moles/Vol] 4.3 mmol/L Normal 3.5 - 5.3 mmol/L [facility] Sodium [Moles/Vol] 136 mmol/L Normal 135 - 145 mmol/L [facility] Urea nitrogen [Mass/Vol] 15 mg/dL Normal 5 - 21 mg/dL [facility] Urea nitrogen/Creatinine [Mass ratio] 21 mg/mg High 10 - 20 [facility] CHEMISTRYOrdered By: Rupinder Lay on 03-19-2025 CO2 [Moles/Vol] 28 mmol/L Normal 21 - 31 mmol/L [facility] Chem S ED Note-Physicianon 03-19-20 25 ED Note-Physician ED Note-Physician Basic Information Time Seen: Marquis ZHANG, Jerrod Castañeda. 03/18/2025 13:58 Chief Complaint Per pt chest pain started at 0500 took one nitro with pain decreasing to a 3/10 from 8/10. hx of x2 cardiac stents placed years ago unknown exact date. Pt is on a blood thinner, avid smoked does not use O2, SOB on ems arrival per pt History of Present Illness A 64-year-old female reports to the emergency department with complaints of chest pain and shortness of breath. Reports that she does have a cardiac history. Is on aspirin as well as prasugrel. she states that she did have some nitro on arrival, which did help her chest pain. She is unsure if she may be having a COPD exacerbation as well. She reports no recent steroids or antibiotics. She states that she does follow-up with cardiology here at [facility]. She reports that she does not usually wear oxygen, but has had 2. Reports that she is not having nausea or vomiting. Denies any chills or sweats. No fevers. Review of Systems No other aggravating or relieving factors no other associated symptoms no other prior treatments or complaints. Family: Reviewed and noncontributory Social: lives at home Review of systems negative unless otherwise specified in the HPI. Physical Exam Vitals & Measurements T: 36.7 ???C(Oral) HR: 78(Monitored) RR: 20 BP: 172/100 SpO2: 92% HT: 162 cm WT: 74 kg BMI: 28.2 General: The patient appears well and in no apparent distress. Patient is resting comfortably on bed. afebrile Skin: Warm, dry, no pallor noted. Head: Normocephalic, atraumatic Neck: No JVD Eye: PERRLA, EOMI ENT: Moist mucus membranes Cardiovascular: Regular rate. normal peripheral perfusion. Radial pulses +2 bilaterally Respiratory: No respiratory distress. no accessory muscle use. no obvious audible wheezing. Lung sounds clear. Chest Wall: no deformity Musculoskeletal: normal ROM, no deformity, no swelling GI: No obvious distention Neurological: A&O. moves all extremities equal strength and symmetry Psychiatric: Cooperative and appropriate Medical Decision Making Heart Score for Major Cardiac Event History: Example factors for history - pattern of chest pain, onset, duration, relation with exercise, stress or cold, localization, concominant symptoms. reaction to sublingual nitrates, [x] Highly suspicious +2 [] Moderately suspicious +1 [] Slightly suspicious 0 EKG: [] Significant ST-Depression +2 [] Non specific repolarization disturbance +1 [x] Normal 0 Age: [x] >= 65 +2 [] 45-65 + 1 [] <45 0 Risk [...] major adverse cardiac event in 30 days. A 64-year-old female reports to the emergency department with complaints of chest pain and shortness of breath. Symptoms started today. Reports that she did have improvement of her symptoms after nitro was given. Initial presentation here, EKG reviewed noted. No acute STEMI seen. Due to concerns, we did do a full cardiac workup. Unsure if this is COPD versus ACS, but with improvement of her chest pain after nitro, and her risk factors of CAD and previous stents, discussed likely more related to cardiac cause of her chest pain. She did complain of repeat chest pain, so did repeat EKG, that showed no acute changes still. Cardiac workup was performed. Troponin was 6.6 at this time. Due to her age, and risk factors as well as her story, discussed admission for further evaluation. Discussed case with the hospitalist was agreeable with admission. Assessment/Plan CAD (coronary artery disease) (I25.10: Atherosclerotic heart disease of [place] coronary artery without angina pectoris) Chest pain (R07.9: Chest pain, unspecified) Orders: albuterol-ipratropi um, 3 mL, Soln-Inh, Inhalation, Once, Stop date 03/18/25 15:05:00 EDT, STAT, Start date 03/18/25 15:05:00 EDT methylPREDNISolone, 125 mg = 2 mL, Injection, IV Push, Once, Stop date 03/18/25 15:06:00 EDT, STAT, Start date 03/18/25 15:06:00 EDT, 03/18/25 15:06:00 EDT morphine, 4 mg = 1 mL, Injection, IV Push, Once, Stop date 03/18/25 15:59:00 EDT, STAT, Start date 03/18/25 15:59:00 EDT, 03/18/25 15:59:00 EDT nitroglycerin, 0.4 mg = 1 tab(s), Tab, SubLingual, q5min PRN Chest pain for 3 dose(s), Stop date Limited # of times, STAT, Start date 03/18/25 15:38:00 EDT, 03/18/25 15:38:00 EDT ondansetron, 4 mg = 2 mL, Injection, IV Push, Once, S (more content not included)... Normal [facility] Comment on above: Result Comment: Elec tronically Signed By: Jerrod Cho PA-C\.br\Date and Time Signed: 03/18/25 18:22 EDT\.br\Electronically Co-Signed By: Lawrence Elise DO\.br\Date and Time Co-Signed: 03/19/25 07:09 EDT HEMATOLOGYOrdered By: SYSTEM SYSTEM on 03-19-2025 Basophils/100 WBC (Bld) 0.5 % Normal 0.0 - 2.0 % Rem[facility] Heme Basophils/Leukocytes Auto (Bld) [Pure # fraction] 0.0 E9/L Normal 0.0 - 0.2 E9/L [facility] Eosinophils (Bld) [#/Vol] 0.0 E9/L Normal 0.0 - 0.5 E9/L [facility] Eosinophils/100 WBC (Bld) 0.0 % Normal 0.0 - 8.0 % [facility] Erythrocyte distribution width (RBC) [Ratio] 13.6 % Normal 10.9 - 14.2 % [facility] Hematocrit (Bld) [Volume fraction] 41.4 % Normal 34.0 - 46.0 % [facility] Hemoglobin (Bld) [Mass/Vol] 14.2 g/dL Normal 12.0 - 16.0 gm/dL [facility] Lymphocytes (Bld) [#/Vol] 0.6 E9/L Low 1.0 - 4.0 E9/L [facility] Lymphocytes/100 WBC (Bld) 20.4 % Normal 14.0 - 50.0 % [facility] MCH (RBC) [Entitic mass] 32.9 pg Normal 27.0 - 34.0 pg [facility]e MCHC (RBC) [Mass/Vol] 34.3 g/dL Normal 31.4 - 36.0 gm/dL [facility] MCV (RBC) [Entitic vol] 96.0 fL Normal 80.0 - 100.0 fL [facility] Monocytes (Bld) [#/Vol] 0.1 E9/L Low 0.2 - 1.0 E9/L [facility] Monocytes/100 WBC (Bld) 1.9 % Low 4.0 - 14.0 % [facility] Neutrophils (Bld) [#/Vol] 2.2 E9/L Normal 2.0 - 7.5 E9/L [facility] Neutrophils/100 WBC (Bld) 77.2 % High 36.0 - 75.0 % [facility] Platelet mean volume (Bld) [Entitic vol] 8.3 fL Normal 6.4 - 10.8 fL [facility] Platelets (Bld) [#/Vol] 177.0 E9/L Normal 150.0 - 500.0 E9/L [facility]e RBC (Bld) [#/Vol] 4.3 E12/L Normal 4.3 - 5.9 E12/L Re misol Heme WBC corrected for nucl RBC Auto (Bld) [#/Vol] 2.8 E9/L Low 4.0 - 11.0 E9/L [facility] Interdisciplinary Note - Layo e Manageron 03-19-2025 Interdisciplinary Note - Supervisor Heading Interdisciplinary Note - Supervisor Heading CRM to room 303 Patient is awake, alert and oriented. Patient is from home with family. [place]. Patient home is 2 story she has to utilize both floors for showering. Patient uses a FWW at home and has assistance from family as needed when they are home. Patient came in as observation for CP. Wong form was completed on 03/18. Patient is assigned to Dr klein, see notes. She has cardiology consult. Patient has no PT needs, pending OT. Per Patient her PCP was setting her up with Palliative care. CRM will make a referral to palliative and possible passport services. Patient declined any needs for HH, Paramed or DME at this time. Patient is on 2L NC and she does not wear at home. She will need weaned or desat for home oxygen. Patient was provided CRM contact, white board updated. CRM Following DC date TBD, CRM will get updates at [address] ernie Stock met with patient for palliative vs hospice. Patient will be referred for palliative while she is deciding on possible hospice Normal [facility] Comment on above: Result Comment: Elec tronically Signed By: Shikha Morales\.br\Date and Time Signed: 03/19/25 11:50 EDT Interdisciplinary Note - [place] n 03-19-2025 Interdisciplinary Note - OT Interdisciplinary Note - OT OT [facility] six clicks score 24/ = Home w/ no further OT needs. Patient completes adls and transfers in room w/ modified Ind. Pt has family assist at home as needed. Pt is at baseline status for adls. DC inpatient OT services. Normal [facility] eGFRon 03-19-2025 eGFR 96 mL/min/1.73 m2 Normal >=59 [facility] Comment on above: Performed By: #### 1 [id number] #### [facility] [address] [place] [address] BMPon 03-18-2025 CO2 [Moles/Vol] 30 mmol/L Normal 21-31 [facility] Comment on above: Performed By: #### 2 [id number] #### [facility] [address] [place] [address] Anion gap [Moles/Vol] 10 mmol/L Normal 6-16 [facility] Comment on above: Performed By: #### 2 [id number] #### [facility] [address] [place] [address] Calcium [Mass/Vol] 9.3 mg/dL Normal 8.9-11.1 [facility] Comment on above: Performed By: #### 2 [id number] #### [facility] [address] [place] [address] Chloride [Moles/Vol] 102 mmol/L Normal 101-[address] [facility] Comment on above: Performed By: #### 2 [id number] #### [facility] [address] [place] [address] Creatinine [Mass/Vol] 0.6 mg/dL Normal 0.5-1.3 [facility] Comment on above: Performed By: #### 2 [id number] #### [facility] [address] [place] [address] Glucose [Mass/Vol] 87 mg/dL Normal 55-199 [facility] Comment on above: Performed By: #### 2 [id number] #### [facility] [address] [place] [address] Potassium [Moles/Vol] 3.9 mmol/L Normal 3.5-5.3 [facility] Comment on above: Performed By: #### 2 [id number] #### [facility] [address] [place] [address] Sodium [Moles/Vol] 138 mmol/L Normal 135-145 [facility] Comment on above: Performed By: #### 2 [id number] #### [facility] [address] [place] [address] Urea nitrogen [Mass/Vol] 7 mg/dL Normal 5-21 [facility] Comment on above: Performed By: #### 2 [id number] #### [facility] [address] [place] [address] Urea nitrogen/Creatinine [Mass ratio] 12 No Units Normal 10-20 [facility] Comment on above: Performed By: #### 2 [id number] #### [facility] [address] [place] [address] BNPon 03-18-2025 Natriuretic peptide B (Bld) [Mass/Vol] 133 pg/mL High 5-80 [facility] Comment on above: Performed By: #### 1 [id number] #### [facility] [address] [place] [address] CBC w/ Auto Diffon 5 Basophils/100 WBC (Bld) 0.9 % Normal 0.0-2.0 [facility] Comment on above: Performed By: #### 2 [id number] #### [facility] [address] [place] [address] Basophils/Leukocytes Auto (Bld) [Pure # fraction] 0.0 E9/L Normal 0.0-0.2 [facility] Comment on above: Performed By: #### 2 [id number] #### [facility] [address] [place] [address] Eosinophils (Bld) [#/Vol] 0.1 E9/L Normal 0.0-0.5 [facility] Comment on above: Performed By: #### 2 [id number] #### [facility] [address] [place] [address] Eosinophils/100 WBC (Bld) 3.1 % Normal 0.0-8.0 [facility] Comment on above: Performed By: #### 2 [id number] #### [facility] [address] [place] [address] Erythrocyte distribution width (RBC) [Ratio] 13.5 % Normal 10.9-14.2 [facility] Comment on above: Performed By: #### 2 [id number] #### [facility] [address] [place] [address] Hematocrit (Bld) [Volume fraction] 41.7 % Normal 34.0-46.0 [facility] Comment on above: Performed By: #### 2 [id number] #### [facility] [address] [place] [address] Hemoglobin (Bld) [Mass/Vol] 14.5 g/dL Normal 12.0-16.0 [facility] Comment on above: Performed By: #### 2 [id number] #### [facility] [address] [place] [address] Lymphocytes (Bld) [#/Vol] 1.3 E9/L Normal 1.0-4.0 [facility] Comment on above: Performed By: #### 2 [id number] #### [facility] [address] [place] [address] Lymphocytes/100 WBC (Bld) 41.1 % Normal 14.0-50.0 [facility] Comment on above: Performed By: #### 2 [id number] #### [facility] [address] [place] [address] MCH (RBC) [Entitic mass] 33.3 pg Normal 27.0-34.0 [facility] Comment on above: Performed By: #### 2 [id number] #### [facility] [address] [place] [address] MCHC (RBC) [Mass/Vol] 34.7 g/dL Normal 31.4-36.0 [facility] Comment on above: Performed By: #### 2 [id number] #### [facility] [address] [place] [address] MCV (RBC) [Entitic vol] 95.7 fL Normal 80.0-100.0 [facility] Comment on above: Performed By: #### 2 [id number] #### [facility] [address] [place] [address] Monocytes (Bld) [#/Vol] 0.3 E9/L Normal 0.2-1.0 [facility] Comment on above: Performed By: #### 2 [id number] #### [facility] [address] [place] [address] Neutrophils (Bld) [#/Vol] 1.5 E9/L Low 2.0-7.5 [facility] Comment on above: Performed By: #### 2 [id number] #### [facility] [address] [place] [address] Neutrophils/100 WBC (Bld) 46.2 % Normal 36.0-75.0 [facility] Comment on above: Performed By: #### 2 [id number] #### [facility] [address] [place] [address] Platelet mean volume (Bld) [Entitic vol] 8.2 fL Normal 6.4-10.8 [facility] Comment on above: Performed By: #### 2 [id number] #### [facility] [address] [place] [address] Platelets (Bld) [#/Vol] 185.0 E9/L Normal 150.0-500.0 [facility] Comment on above: Performed By: #### 2 [id number] #### [facility] [address] [place] [address] RBC (Bld) [#/Vol] 4.4 E12/L Normal 4.3-5.9 [facility] Comment on above: Performed By: #### 2 [id number] #### [facility] [address] [place] [address] WBC corrected for nucl RBC Auto (Bld) [#/Vol] 3.2 E9/L Low 4.0-11.0 [facility] Comment on above: Performed By: #### 2 [id number] #### [facility] [address] [place] [address] CHEMISTRYOrdered By: SYSTEM SYSTEM on 03-18-2025 Troponin HS 5.20 pg/mL Low 10.10 - 27.10 pg/mL [facility] Comment on above: Interpretive Data: T he 95% CI (Confidence Interval) PPV (Positive Predictive Value) for myocardial infarction in females is 38 pg/mL, in males 51 pg/mL. The results should be used in conjunction with clinical conditions of myocardial infarction. (Access High Sensitivity Troponin I Instructions For Use, [place], June 2018) Troponin HS 6.60 pg/mL Low 10.10 - 27.10 pg/mL [facility] Comment on above: Interpretive Data: T he 95% CI (Confidence Interval) PPV (Positive Predictive Value) for myocardial infarction in females is 38 pg/mL, in males 51 pg/mL. The results should be used in conjunction with clinical conditions of myocardial infarction. (Access High Sensitivity Troponin I Instructions For Use, [place], June 2018) Troponin HS 6.40 pg/mL Low 10.10 - 27.10 pg/mL [facility] Comment on above: Interpretive Data: T he 95% CI (Confidence Interval) PPV (Positive Predictive Value) for myocardial infarction in females is 38 pg/mL, in males 51 pg/mL. The results should be used in conjunction with clinical conditions of myocardial infarction. (Access High Sensitivity Troponin I Instructions For Use, [place], June 2018) Anion gap [Moles/Vol] 10 mmol/L Normal 6 - 16 mEq/L [facility] Calcium [Mass/Vol] 9.3 mg/dL Normal 8.9 - 11.1 mg/dL [facility] Chem Chloride [Moles/Vol] 102 mmol/L Normal 101 - 111 mmol/ L [facility] Chem Creatinine [Mass/Vol] 0.6 mg/dL Normal 0.5 - 1.3 mg/dL [facility] Chem eGFR 99 mL/min/1.73 m2 Normal >=59mL/min/1.73 m2 [facility] Chem Glucose [Mass/Vol] 87 mg/dL Normal 55 - 199 mg/dL Re misol Chem Potassium [Moles/Vol] 3.9 mmol/L Normal 3.5 - 5.3 mmol/L [facility] Sodium [Moles/Vol] 138 mmol/L Normal 135 - 145 mmol/L [facility] Chem Urea nitrogen [Mass/Vol] 7 mg/dL Normal 5 - 21 mg/dL [facility] Chem Urea nitrogen/Creatinine [Mass ratio] 12 mg/mg Normal 10 - 20 [facility] Chem CHEMISTRYOrdered By: Diana Villar on 03-18-2025 CO2 [Moles/Vol] 30 mmol/L Normal 21 - 31 mmol/L [facility] Chem S CHEMISTRYOrdered By: Bibiana Irvin on 03-18-2025 Natriuretic peptide B (Bld) [Mass/Vol] 133 pg/mL High 5 - 80 pg/mL [facility] HemeManSS COAGULATIONOrdered By: Pepito Irvin on 03-18-2025 aPTT Coag (PPP) [Time] 27.5 s Normal 25.1 - 36.5 second(s) [facility] Auto Coag Comment on above: Interpretive Data: [...] the same coagulation reagent and instrumentation as [facility]. Currently there are no coagulation studies available worldwide for children to 14 days, and no normal ranges. Heparin therapeutic range (represented by Anti-Factor Xa activity of 0.2 - 0.4 U/mL) corresponds to PTT of 56.6 - 109.0 sec. INR Coag (PPP) [Relative time] 0.95 {INR} Invalid Interpretation Code [facility] Auto Coag Comment on above: Interpretive Data: I NR results are specifically intended to assess patients stabilized on long-term Anticoagulation therapy suggested INR s Less Intensive Anticoagulation 2.0 3.0 Conventional Range 3.0 4.5 PT Coag (PPP) [Time] 10.6 s Normal 9.4 - 1 2.5 second(s) [facility] Auto Coag Comment on above: Interpretive Data: [...] the same coagulation reagent and instrumentation as [facility]. Currently there are no coagulation studies available worldwide for children to 14 days, and no normal ranges. ED Clinical Summaryon 2024 ED Clinical Summary ED Clinical Summary [address] [address] ED Clinical Summary Person Information Name: ELLA JACOBO/Tatiana Age: 64 Years : 1960 Sex: Female Language: Djiboutian PCP: Fly Luis MD Marital Status: Visit Id: Visit Reason: Shortness of breath; Chest pain; CP Speciality: Acuity: 2 Enc Type: Observation Med Service: Medical Arrival: 03/18/2025 13:48:54 Discharge: LOS: 000 03:53 Checkin: 03/18/2025 13:48:54 Checkout: 03/18/2025 17:41:17 Dispo Type: Admitted as IP to this [facility] EVENTS: Event Name Event Status Request Date/Time Start Date/Time Complete Date/Time Arrive Complete 03/18/2025 13:48:54 03/18/2025 13:48:54 03/18/2025 13:48:54 Document Home Meds Request 03/18/2025 13:48:54 Triage Complete 03/18/2025 13:48:54 03/18/2025 13:57:21 03/18/2025 13:57:21 Bed Assign Complete 03/18/2025 13:48:54 03/18/2025 13:48:54 03/18/2025 13:48:54 Dr Exam Complete 03/18/2025 13:48:54 03/18/2025 13:58:41 03/18/2025 13:58:41 RN Exam Complete 03/18/2025 13:48:54 03/18/2025 14:09:37 03/18/2025 14:09:37 EKG Complete 03/18/2025 13:51:26 03/18/2025 13:56:21 Pending Labs Complete 03/18/2025 13:51:55 03/18/2025 15:30:49 03/18/2025 16:17:31 Lab Complete 03/18/2025 13:51:55 03/18/2025 15:46:27 X-Ray Complete 03/18/2025 13:51:55 03/18/2025 14:07:18 03/18/2025 14:59:37 Registration Complete 03/18/2025 13:58:41 03/18/2025 14:59:36 03/18/2025 14:59:36 Dr Exam Complete 03/18/2025 13:59:34 03/18/2025 13:59:34 03/18/2025 13:59:34 Pending Labs Cancel 03/18/2025 14:22:41 03/18/2025 14:32:20 Lab Cancel 03/18/2025 14:22:41 03/18/2025 14:32:20 Pending Labs Complete 03/18/2025 14:24:49 03/18/2025 14:24:49 03/18/2025 14:49:37 Lab Complete 03/18/2025 14:24:49 03/18/2025 14:24:49 03/18/2025 14:49:37 Pending Labs Complete 03/18/2025 14:33:50 03/18/2025 14:33:50 03/18/2025 15:02:38 Lab Complete 03/18/2025 14:33:50 03/18/2025 14:33:50 03/18/2025 15:02:38 Reg Complete Request 03/18/2025 14:59:36 Reg Bed Request Complete 03/18/2025 14:59:36 03/18/2025 14:59:36 03/18/2025 14:59:36 Wet Read Request 03/18/2025 14:59:37 Meds Admin Complete 03/18/2025 15:06:26 03/18/2025 15:49:45 RT Tx/ABG Request 03/18/2025 15:06:27 RT Tx/ABG Request 03/18/2025 15:06:27 Pending Labs Request 03/18/2025 15:36:59 EKG Complete 03/18/2025 15:36:59 03/18/2025 15:49:21 Meds Admin Request 03/18/2025 15:38:56 Meds Admin Complete 03/18/2025 15:59:20 03/18/2025 16:07:02 Consult Request 03/18/2025 16:09:34 Hospitalist Consult Request 03/18/2025 16:09:34 Observation Request 03/18/2025 16:13:41 Patient Care Request 03/18/2025 16:13:41 Consult Request 03/18/2025 16:13:41 Patient Care Request 03/18/2025 16:13:42 Patient Care Request 03/18/2025 16:13:43 Medicare Form Complete 03/18/2025 16:13:44 03/18/2025 16:28:41 Patient Care Request 03/18/2025 16:13:44 Patient Care Request 03/18/2025 16:13:44 Discharge Complete 03/18/2025 17:31:32 03/18/2025 17:31:32 03/18/2025 17:31:32 Transfer Complete 03/18/2025 17:31:32 03/18/2025 17:31:32 03/18/2025 17:31:32 Inpatient Bed Ready Complete 03/18/2025 17:35:00 03/18/2025 17:35:00 03/18/2025 17:35:00 ADDRESS: [address] [place], [place] [address] [id number] PHYS DOC NOTES: MEDICAL INFORMATION: Prescriptions Given: [...] Mouth 2 times a day. Refills: 3. lamotrigine (Lamictal 25 mg Tab) 3 Tablets By Mouth once a day (at bedtime). losartan (losartan 100 mg Tab) 1 Tablets By Mouth every day. Refills: 3. [facility] [place] 150 Milligram By Mouth at bedtime. ranolazine (ranolazine 1000 mg oral tablet, extended release) 1 Tablets By Mouth 2 times a day. Dose increased on 01/17/2025. Refills: 1. ropinirole (ropinirole 1 mg Tab) 1 Tablets By Mouth every day. Refills: 1. trazodone (traZODONE 100 mg Tab) 3 Tablets By Mouth once a day (at bedtime). venlafaxine (Effexor XR 150 mg Cap-ER) 2 Capsules By Mouth once a day (at bedtime). PATIENT EDUCATI (more content not included)... Normal [facility] ED Patient Education Noteon 03-18-2025 ED Patient Education Note ED Patient Education Note Normal [facility] ED Patient Summaryon 025 ED Patient Summary ED Patient Summary [place] [id number] Patient Discharge Instructions Person Information Name: ELLA JACOBO Age: 64 Years Arrival Date: 03/18/2025 13:48:54 Discharge Diagnosis: 1:Chest pain; 2:CAD (coronary artery disease); 3:Anxiety and depression; 4:COPD (chronic obstructive pulmonary disease); 5:HLD (hyperlipidemia); 6:Hypertension; 7:PVD (peripheral vascular disease); 8:RLS (restless legs syndrome); 9:Tobacco abuse; Depression, unspecified Primary Care Physician: Fly Luis MD Provider Information Primary Provider: Lawrence Elise DO [employer] Worker Leader:Marquis PA-C, Jerrod J. The exam and treatment you received in the Emergency Department were for an urgent problem and are not intended as complete care. It is important that you follow up with a doctor, nurse practitioner, or physician???s central supply assistant for ongoing care. If your symptoms become worse or you do not improve as expected and you are unable to reach your usual health care provider, you should return to the Emergency Department. We are available 24 hours a day. ELLA JACOBO has been given the following list [...] opioids can be used to help relieve bvffwhff-gy-fhbrzx pain and are often prescribed following a [...] risks of opioids abuse and overdose. ??? (more content not included)... Normal [facility] EMS Documentationon 03-18-20 EMS Documentation Report Please click on link to see report Normal [facility] Comment on above: Result Comment: Miss sotelo Attachment - attachment exceeds size limitation [id number] Can be viewed in source system HEMATOLOGYOrdered By: SYSTEM SYSTEM on 03-18-2025 Basophils/100 WBC (Bld) 0.9 % Normal 0.0 [...] % [facility] Heme Hematocrit (Bld) [Volume fraction] 41.7 % Normal 34.0 - 46.0 % [facility] Hemoglobin (Bld) [Mass/Vol] 14.5 g/dL Normal 12.0 - 16.0 gm/dL [facility] Lymphocytes (Bld) [#/Vol] 1.3 E9/L Normal 1.0 - 4.0 E9/L [facility]e Lymphocytes/100 WBC (Bld) 41.1 % Normal 14.0 - 50.0 % [facility]e MCH (RBC) [Entitic mass] 33.3 pg Normal 27.0 - 34.0 pg [facility]e MCHC (RBC) [Mass/Vol] 34.7 g/dL Normal 31.4 - 36.0 gm/dL [facility] MCV (RBC) [Entitic vol] 95.7 fL Normal 80.0 - 100.0 fL [facility] Monocytes (Bld) [#/Vol] 0.3 E9/L Normal 0.2 - 1.0 E9/L [facility]e Monocytes/100 WBC (Bld) 8.7 % Normal 4.0 - 14.0 % [facility] Neutrophils (Bld) [#/Vol] 1.5 E9/L Low 2.0 - 7.5 E9/L [facility] Neutrophils/100 WBC (Bld) 46.2 % Normal 36.0 - 75.0 % [facility] Platelet mean volume (Bld) [Entitic vol] 8.2 fL Normal 6.4 - 10.8 fL [facility] Platelets (Bld) [#/Vol] 185.0 E9/L Normal 150.0 - 500.0 E9/L [facility]e RBC (Bld) [#/Vol] 4.4 E12/L Normal 4.3 - 5.9 E12/L Re misol Heme WBC corrected for nucl RBC Auto (Bld) [#/Vol] 3.2 E9/L Low 4.0 - 11.0 E9/L [facility] Heme PT & PTTon 03-18-2025 aPTT Coag (PPP) [Time] 27.5 second(s) Normal 25.1-36.5 [facility] Comment on above: Result Comment: Para meter [...] the same coagulation reagent and instrumentation as [facility]. Currently there are no coagulation studies available worldwide for children to 14 days, and no normal ranges. Heparin therapeutic range (represented by Anti-Factor Xa activity of 0.2 - 0.4 U/mL) corresponds to PTT of 56.6 - 109.0 sec. Performed By: #### 1 [id number] #### [facility] [address] [place] [address] INR Coag (PPP) [Relative time] 0.95 {INR} Invalid Interpretation Code [facility] Comment on above: Result Comment: INR results are specifically intended to assess patients stabilized on long-term Anticoagulation therapy suggested INR???s ???Less Intensive Anticoagulation??? 2.0 ??? 3.0 Conventional Range 3.0 ??? 4.5 Performed By: #### 1 [id number] #### [facility] [address] [place] [address] PT Coag (PPP) [Time] 10.6 second(s) Normal 9.4-12.5 [facility] Comment on above: Result Comment: 15 d ays - 4 weeks 1 - 5 months 6 -11 months 1 ??? 5 years 6 ??? 10 years 11 -17 years Mean: 11.2 (9.5 ??? 12.6) Mean: 11.0 (9.7 ??? 12.8) Mean: 11.0 (9.8 ??? 13.0) Mean: 11.3 (9.9 ??? 13.4) Mean: 11.7 (10.0 ??? 14.6) Mean: 11.8 (10.0 - 14.1) Pediatric Reference ranges were obtained from a study by Messi Chambers et al. prepared from 1437 samples obtained at 7 different centers using the same coagulation reagent and instrumentation as [facility]. Currently there are no coagulation studies available worldwide for children to 14 days, and no normal ranges. Performed By: #### 1 [id number] #### [facility] [address] [place] [address] Pre-Arrival Noteon Pre-Arrival Note Pre-Arrival Note Pre-Arrival Summary Name: jovan lares Current Date: 03/18/2025 13:49:12 EDT Gender: Date of : Age: Pre-Arrival Type: EMS ETA: 03/18/2025 14:11:00 EDT Primary Care Physician: Presenting Problem: cp Pre-Arrival User: Luana White RN Referring Source: Location: [place] Completion Date/Time: 03/18/2025 13:41:[address] [facility] Emergency Department Pre-Hospital Report Form ___ Vital Signs: Pre-Hospital Report: Treatment in Route: Response to Treatment: Misc. Issues: Normal [facility] Troponin 0 Hr.on 03-18-2025 Troponin HS 6.60 pg/mL Low 10.10-27.10 [facility] Comment on above: Result Comment: The 95% CI (Confidence Interval) PPV (Positive Predictive Value) for myocardial infarction in females is 38 pg/mL, in males 51 pg/mL. The results should be used in conjunction with clinical conditions of myocardial infarction. (Access High Sensitivity Troponin I Instructions For Use, [place] 2018) Performed By: #### 1 [id number] #### [facility] [address] [place] [address] Troponin 1 Hr.on 03-18-2025 Troponin HS 6.40 pg/mL Low 10.10-27.10 [facility] Comment on above: Order Comment: 1521 Result Comment: The 95% CI (Confidence Interval) PPV (Positive Predictive Value) for myocardial infarction in females is 38 pg/mL, in males 51 pg/mL. The results should be used in conjunction with clinical conditions of myocardial infarction. (Access High Sensitivity Troponin I Instructions For Use, [place] 2018) Performed By: #### 1 [id number] #### [facility] [address] [place] [address] Troponin 3 Hr.on 03-18-2025 Troponin HS 6.60 pg/mL Low 10.10-27.10 [facility] Comment on above: Result Comment: The 95% CI (Confidence Interval) PPV (Positive Predictive Value) for myocardial infarction in females is 38 pg/mL, in males 51 pg/mL. The results should be used in conjunction with clinical conditions of myocardial infarction. (Access High Sensitivity Troponin I Instructions For Use, [place], June 2018) Performed By: #### 1 [id number] #### [facility] [address] [place] [address] Troponin 6 Hr.on 03-18-2025 Troponin HS 5.20 pg/mL Low 10.10-27.10 [facility] Comment on above: Result Comment: The 95% CI (Confidence Interval) PPV (Positive Predictive Value) for myocardial infarction in females is 38 pg/mL, in males 51 pg/mL. The results should be used in conjunction with clinical conditions of myocardial infarction. (Access High Sensitivity Troponin I Instructions For Use, [place] 2018) Performed By: #### 1 [id number] #### [facility] [address] [place] [address] XR Chest Single Viewon 03-18 XR Chest Single View Exam Date/Time: 03/18/2025 14:59 EDT Reason for Exam: Chest pain Report IMPRESSION: NO EVIDENCE OF ACUTE CHEST DISEASE. CLINICAL HISTORY: Chest pain. COMPARISON: 10/29/2024. COMMENT: AP portable. The heart is normal in size. There is calcification at the aortic arch. The mediastinum is unremarkable. Chronic densities in the basilar portions of the lungs medially suggest fibrotic changes. No superimposed infiltration nor pleural effusion is evident. No significant change is noted when compared to the prior exam. Ordering Provider: Davey Posada FINAL REPORT Dictated: 03/18/2025 3:14 pm Edmund Arce M.D. Signed (Electronic Signature): 03/18/2025 3:14 pm Signed by: Edmund Arce M.D. Transcribed by: JEANINE Technologist: KALLIE Normal [facility] eGFRon 03-18-2025 eGFR 99 mL/min/1.73 m2 Normal >=59 [facility] Comment on above: Performed By: #### 1 [id number] #### [facility] [address] [place] [address] Heart and Vascular Office/Cl inic Noteon 01-07-2025 [...] Oral, Once a day (at bedtime) Handicap Placard, 5 years., See Instructions isosorbide [...] sulfamethoxazole (U (more content not included)... Normal [facility] Comment on above: Result Comment: Elec tronically Signed By: Abhi POSEY, Lexis Sauceda\.br\Date and Time Signed: 01/07/25 13:20 EST Ambulatory Visit Summaryon 0 12-27-2024 Ambulatory Visit Summary Ambulatory Visit Summary ELLA JACOBO :1960 Visit Date:12/27/2024 Ambulatory Visit Instructions Your Diagnosis COPD (chronic obstructive pulmonary disease) Overweight (BMI 25.0-29.9) Smoker Major depressive disorder, recurrent, moderate Polyneuropathy HTN (hypertension), benign Walker as ambulation aid BMI 28.0-28.9,adult Your Care Team Attending Physician - Fly Luis MD Primary Care Physician - Fly Luis MD This Is Your Medications List [...] Follow-Up Appointments Tuesday 11:45 AM EST With: Lexis Moe MD [facility] 2024 10:45 AM EDT With: Janelle POSEY, Fly Jean Baptiste Where: [address] [address]- Tuesday 2:30 PM EDT With: Where: [address] [address]- Medications What How Much When Why Instructions [...] as ambula (more content not included)... Normal [facility] Family Medicine Office/Clini c Noteon 12-27-2024 Family [...] any exacerbation or respiratory symptoms worsen. Ordered: [facility] External Ambulatory Referral 2. Overweight (BMI 25.0-29.9) (E66.3: Overweight) Diet and exercise advised. Ordered: [facility] External Ambulatory Referral 3. Smoker (F17.200: Nicotine dependence, unspecified, uncomplicated) The patient's smoking history can significantly contribute to her respiratory condition. Counseling for smoking cessation should be considered if not already undertaken. Ordered: [facility] External Ambulatory Referral 4. Major depressive disorder, recurrent, moderate (F33.1: Major depressive disorder, recurrent, moderate) The patient reports feeling down but seems to maintain a psychiatric follow-up with Dr. Sandhu. Continue psychiatric evaluation to manage symptoms adequately. Ordered: [facility] External Ambulatory Referral 5. Polyneuropathy (G62.9: Polyneuropathy, unspecified) Difficulty with ambulation linked to polyneuropathy is evident. Follow-up neurological and potential neurosurgical consultation might be beneficial for further management and exploring new treatment options or interventions. Ordered: [facility] External Ambulatory Referral 6. HTN (hypertension), benign [...] ambulation issues (more content not included)... Normal [facility] Comment on above: Result Comment: Elec tronically Signed By: Janelle POSEY, lFy Jean Baptiste\.br\Date and Time Signed: 12/27/24 11:24 EST RPR with Conf Rfxon 11-27-19 25 Reagin Ab RPR Ql (S) Non-Reactive Invalid Interpretation Code Non Reactive [facility] Comment on above: Result Comment: Perf ormed at: [facility] [address] [id number] PhD Francois Amos Performed By: #### 1 [id number] #### [facility] [address] [place] [address] BMPon 11-26-2024 Anion gap [Moles/Vol] 10 mmol/L Normal 6-16 [facility] Comment on above: Performed By: #### 2 [id number] #### [facility] [address] [place] [address] Calcium [Mass/Vol] 9.1 mg/dL Normal 8.9-11.1 [facility] Comment on above: Performed By: #### 2 [id number] #### [facility] [address] [place] [address] Chloride [Moles/Vol] 105 mmol/L Normal 101-[address] [facility] Comment on above: Performed By: #### 2 [id number] #### [facility] [address] [place] [address] CO2 [Moles/Vol] 29 mmol/L Normal 21-31 [facility] Comment on above: Performed By: #### 2 [id number] #### [facility] [address] [place] [address] Creatinine [Mass/Vol] 0.7 mg/dL Normal 0.5-1.3 [facility] Comment on above: Performed By: #### 2 [id number] #### [facility] [address] [place] [address] Glucose [Mass/Vol] 90 mg/dL Normal 55-199 [facility] Comment on above: Performed By: #### 2 [id number] #### [facility] [address] [place] [address] Potassium [Moles/Vol] 3.7 mmol/L Normal 3.5-5.3 [facility] Comment on above: Performed By: #### 2 [id number] #### [facility] [address] [place] [address] Sodium [Moles/Vol] 140 mmol/L Normal 135-145 [facility] Comment on above: Performed By: #### 2 [id number] #### [facility] [address] [place] [address] Urea nitrogen [Mass/Vol] 15 mg/dL Normal 5-21 [facility] Comment on above: Performed By: #### 2 [id number] #### [facility] [address] [place] [address] Urea nitrogen/Creatinine [Mass ratio] 21 No Units High 10-20 [facility] Comment on above: Performed By: #### 2 [id number] #### [facility] [address] [place] [address] CBC w/ Auto Diffon 5 Basophils/100 WBC (Bld) 1.0 % Normal 0.0-2.0 [facility] Comment on above: Performed By: #### 2 [id number] #### [facility] [address] [place] [address] Basophils/Leukocytes Auto (Bld) [Pure # fraction] 0.0 E9/L Normal 0.0-0.2 [facility] Comment on above: Performed By: #### 2 [id number] #### [facility] [address] [place] [address] Eosinophils (Bld) [#/Vol] 0.1 E9/L Normal 0.0-0.5 [facility] Comment on above: Performed By: #### 2 [id number] #### [facility] [address] [place] [address] Eosinophils/100 WBC (Bld) 3.1 % Normal 0.0-8.0 [facility] Comment on above: Performed By: #### 2 [id number] #### [facility] [address] [place] [address] Erythrocyte distribution width (RBC) [Ratio] 13.6 % Normal 10.9-14.2 [facility] Comment on above: Performed By: #### 2 [id number] #### [facility] [address] [place] [address] Hematocrit (Bld) [Volume fraction] 42.4 % Normal 34.0-46.0 [facility] Comment on above: Performed By: #### 2 [id number] #### [facility] [address] [place] [address] Hemoglobin (Bld) [Mass/Vol] 14.7 g/dL Normal 12.0-16.0 [facility] Comment on above: Performed By: #### 2 [id number] #### [facility] [address] [place] [address] Lymphocytes (Bld) [#/Vol] 1.7 E9/L Normal 1.0-4.0 [facility] Comment on above: Performed By: #### 2 [id number] #### [facility] [address] [place] [address] Lymphocytes/100 WBC (Bld) 44.2 % Normal 14.0-50.0 [facility] Comment on above: Performed By: #### 2 [id number] #### [facility] [facility] [address] [place] [address] MCH (RBC) [Entitic mass] 33.5 pg Normal 27.0-34.0 [facility] Comment on above: Performed By: #### 2 [id number] #### [facility] [address] [place] [address] MCHC (RBC) [Mass/Vol] 34.8 g/dL Normal 31.4-36.0 [facility] Comment on above: Performed By: #### 2 [id number] #### [facility] [address] [place] [address] MCV (RBC) [Entitic vol] 96.5 fL Normal 80.0-100.0 [facility] Comment on above: Performed By: #### 2 [id number] #### [facility] [address] [place] [address] Monocytes (Bld) [#/Vol] 0.4 E9/L Normal 0.2-1.0 [facility] Comment on above: Performed By: #### 2 [id number] #### [facility] [address] [place] [address] Neutrophils (Bld) [#/Vol] 1.7 E9/L Low 2.0-7.5 [facility] Comment on above: Performed By: #### 2 [id number] #### [facility] [address] [place] [address] Neutrophils/100 WBC (Bld) 42.4 % Normal 36.0-75.0 [facility] Comment on above: Performed By: #### 2 [id number] #### [facility] [address] [place] [address] Platelet mean volume (Bld) [Entitic vol] 7.5 fL Normal 6.4-10.8 [facility] Comment on above: Performed By: #### 2 [id number] #### [facility] [address] [place] [address] Platelets (Bld) [#/Vol] 184.0 E9/L Normal 150.0-500.0 [facility] Comment on above: Performed By: #### 2 [id number] #### [facility] [address] [place] [address] RBC (Bld) [#/Vol] 4.4 E12/L Normal 4.3-5.9 [facility] Comment on above: Performed By: #### 2 [id number] #### [facility] [address] [place] [address] WBC corrected for nucl RBC Auto (Bld) [#/Vol] 3.9 E9/L Low 4.0-11.0 [facility] Comment on above: Performed By: #### 2 [id number] #### [facility] [address] [place] [address] CHEMISTRYOrdered By: SYSTEM SYSTEM on 11-26-2024 Anion [...] Chem Discharge Note-Nursingon Discharge Note-Nursing Discharge Note-Nursing ELLA JACOBO :1960 Visit Date:11/24/2024 Inpatient Discharge Instructions [...] Vascular Clinic Tuesday 7:45 AM EST With: Fly Luis MD Where: [place] [id number]- Tuesday 1:00 PM EST With: Amilcar Matthews PA-C Where: Cardiology Clinic Tuesday 1:00 PM EST With: Fly Luis MD Where: [address] [id number]- Tuesday 2:30 PM EDT With: Where: [address] [phone]- New Follow Up Appointments after Discharge Follow Up with Doris POSEY, SARAH Chin When: 01/28/2025 12:00 PM EDT Comments: Please bring in proof of insurance to this hospital follow up appointment. Where: [address] [facility] [address] [place] [address] [phone] Business (1) Follow Up with Orlando Sepulveda When: 12/19/2024 11:00 AM EST Comments: Multilevel foraminal and canal narrowing. Where: [address] [facility], [address] [place] [address]- [phone] Business (1) [address] [place] [address]- [phone] Follow Up with Fly Luis When: 12/04/2024 07:45 AM EST Comments: Please bring proof of insurance to this hosptial follow up appointment. Where: [address] [place] [address] Business (2) Medications What How [...] 3 Tabl (more content not included)... Normal [facility] EEGon 11-26-2024 EEG EEG CLINICAL HISTORY: Drop [...] of an increased risk of seizure. Normal [facility] Comment on above: Result Comment: Elec tronically Signed By: Jasper Benjamin DO\Date and Time Signed: 11/26/24 12:14 EST HEMATOLOGYOrdered [...] 11-26-2024 Inpatient Clinical Summary Inpatient Clinical Summary [place] [address] Clinical Summary Person Information: Name: ELLA JACOBO Age: 64 Years : 1960 Sex: Female PCP: Fly Luis MD Marital Status: Race: White Ethnicity: Non- or Language: Djiboutian Visit Id: Visit Reason: Scalp laceration; Fall; Shortness of breath; fall Speciality: Acuity: Enc Type: Observation Med Service: Medical Arrival: 11/24/2024 17:08:50 Discharge: Dispo Type: Admitted as IP to this [facility] Address: [address] [place] [phone] Provider Notes: Diagnosis: 1:Leg weakness, bilateral; 2:Fall; [...] Referring Physician: Follow up: With: Address: When: Fly Janelle [address] [place] [phone] Business (2) 12/04/2024 7:45 AM Comments: Please bring proof of insurance to this hosptial follow up appointment. With: Address: When: Elsy López MD, NEU [address] [facility] [address] [place] [phone] Business (1) 01/28/2025 12:00 PM Comments: Please bring in proof of insurance to this hospital follow up appointment. With: Address: When: Orlando Sepulveda [address] [facility], [address] [place] [phone] Business (1) Within 2 weeks Comments: Multilevel foraminal and canal narrowing. Call for followup appointment Type Location Start Finish State Vascular New Patient (FT) FT.Vascular (more content not included)... Normal [facility] Inpatient Patient Summaryon 11-26-2024 Inpatient Patient Summary Inpatient Patient Summary [address] [address] Patient Discharge Instructions PERSON INFORMATION Name: ELLA JAOCBO Date of : 1960 Current Date: 11/26/2024 13:24:57 PHYSICIANS Admitting Physician: Alec LUTHER DO Primary Care Physician: Fly Luis MD PCP Comment: Discharge Diagnosis: 1:Leg weakness, bilateral; 2:Fall; 3:Forehead abrasion; 4:Hand laceration; 5:HTN (hypertension), benign; 6:Anxiety and depression; 7:HLD (hyperlipidemia); 8:RLS (restless legs syndrome); 9:CAD (coronary artery disease); 10:PVD (peripheral vascular disease); 11:On deep vein thrombosis (DVT) prophylaxis Condition at Discharge: Improved ELLA JACOBO has been given the following list [...] results: None Follow up: With: Address: When: Fly Luis [address] [place] [phone] Business (2) 12/04/2024 7:45 AM Comments: Please bring proof of insurance to this hosptial follow up appointment. With: Address: When: Doris POSEY, SARAH Chin [address] [facility] [address] [place] [phone] Business (1) 01/28/2025 12:00 PM Comments: Please bring in proof of insurance to this hospital follow up appointment. With: Address: When: Orlando Sepulveda [address] [facility], [address] [place] [phone] Business (1) Within 2 weeks Comments: Multilevel foraminal and canal narrowing. Call for followup appointment In the event that this physician does not participate in your insurance network, please consult with your insurance company to find a nearby participating provider. Type Location Start Finish State Vascular New Patient (FT) FT.Vascular Clinic 12/03/2024 11:00 AM 12/03/2024 11:15 AM Confirmed Hospital Follow Up w/TCM [facility] 12/04/2024 7:45 AM 12/04/2024 8:15 AM Confirmed Cardiology Follow Up (FT) FT.Cardiology Clinic 12/14/2024 1:00 PM 12/14/2024 1:15 PM Confirmed FM Open [facility] 01/07/2025 1:00 PM 01/07/2025 1:15 PM [facility] 2:30 PM 06/18/2025 3:30 PM Confirmed [...] Dose: nitroglycerin (nitr (more content not included)... [facility] Interdisciplinary Note - Layo e Manageron 11-26-2024 Interdisciplinary Note - Supervisor Heading Interdisciplinary Note - Supervisor Heading Patient is off unit for MRI at [...] agreeable and has a FWW at home. [facility] Comment on above: Result Comment: [...] Vueway Contrast amount in ml's: 7.5 Normal [facility] eGFRon 11-26-2024 eGFR 96 mL/min/1.73 m2 Normal >=59 [facility] Comment on above: Performed By: #### 1 [id number] ####[facility] [id number] [place] [address] ABO/Rh History Checkon 11-25 ABO/Rh History Check Type verified by second s Normal [facility] Comment on above: Performed By: #### 1 [id number] #### [facility] [address] [place] [address] ABO/Rh Retypeon 11-25-2024 ABO/Rh Retype Interp Positive Invalid Interpretation Code [facility] Comment on above: Performed By: #### 1 [id number] #### [facility] [address] [place] [address] BLOOD BANKOrdered By: Jenna Irvin on 11-25-2024 ABO/Rh Retype Interp Positive Invalid Interpretation Code [facility] BB Subsection BMPon 11-25-2024 Anion gap [Moles/Vol] 14 mmol/L Normal 6-16 [facility] Comment on above: Performed By: #### 2 [id number] #### [facility] [address] [place] [address] Calcium [Mass/Vol] 8.7 mg/dL Low 8.9-11.1 [facility] Comment on above: Performed By: #### 2 [id number] #### [facility] [address] [place] [address] Chloride [Moles/Vol] 105 mmol/L Normal 101-[address] [facility] Comment on above: Performed By: #### 2 [id number] #### [facility] [address] [place] [address] CO2 [Moles/Vol] 24 mmol/L Normal 21-31 [facility] Comment on above: Performed By: #### 2 [id number] #### [facility] [address] [place] [address] Creatinine [Mass/Vol] 0.6 mg/dL Normal 0.5-1.3 [facility] Comment on above: Performed By: #### 2 [id number] #### [facility] [address] [place] [address] Glucose [Mass/Vol] 93 mg/dL Normal 55-199 [facility] Comment on above: Performed By: #### 2 877072 #### [facility] [address] [place] [address] Potassium [Moles/Vol] 3.4 mmol/L Low 3.5-5.3 [facility] Comment on above: Performed By: #### 2 [id number] #### [facility] [address] [place] [address] Sodium [Moles/Vol] 140 mmol/L Normal 135-145 [facility] Comment on above: Performed By: #### 2 388762 #### [facility] [address] [place] [address] Urea nitrogen [Mass/Vol] 12 mg/dL Normal 5-21 [facility] Comment on above: Performed By: #### 2 [id number] #### [facility] [address] [place] [address] Urea nitrogen/Creatinine [Mass ratio] 20 No Units Normal 10-20 [facility] Comment on above: Performed By: #### 2 754521 #### [facility] [address] [place] [address] CBC w/ Auto Diffon 5 Basophils/100 WBC (Bld) 0.8 % Normal 0.0-2.0 [facility] Comment on above: Performed By: #### 2 [id number] #### [facility] [address] [place] [address] Basophils/Leukocytes Auto (Bld) [Pure # fraction] 0.0 E9/L Normal 0.0-0.2 [facility] Comment on above: Performed By: #### 2 [id number] #### [facility] [address] [place] [address] Eosinophils (Bld) [#/Vol] 0.1 E9/L Normal 0.0-0.5 [facility] Comment on above: Performed By: #### 2 [id number] #### [facility] [address] [place] [address] Eosinophils/100 WBC (Bld) 3.3 % Normal 0.0-8.0 [facility] Comment on above: Performed By: #### 2 [id number] #### [facility] [address] [place] [address] Erythrocyte distribution width (RBC) [Ratio] 13.6 % Normal 10.9-14.2 [facility] Comment on above: Performed By: #### 2 167369 #### [facility] [address] [place] [address] Hematocrit (Bld) [Volume fraction] 42.0 % Normal 34.0-46.0 [facility] Comment on above: Performed By: #### 2 [id number] #### [facility] [address] [place] [address] Hemoglobin (Bld) [Mass/Vol] 14.6 g/dL Normal 12.0-16.0 [facility] Comment on above: Performed By: #### 2 [id number] #### [facility] [address] [place] [address] Lymphocytes (Bld) [#/Vol] 1.7 E9/L Normal 1.0-4.0 [facility] Comment on above: Performed By: #### 2 [id number] #### [facility] [address] [place] [address] Lymphocytes/100 WBC (Bld) 47.4 % Normal 14.0-50.0 [facility] Comment on above: Performed By: #### 2 275402 #### [facility] [address] [place] [address] MCH (RBC) [Entitic mass] 33.6 pg Normal 27.0-34.0 [facility] Comment on above: Performed By: #### 2 697914 #### [facility] [address] [place] [address] MCHC (RBC) [Mass/Vol] 34.8 g/dL Normal 31.4-36.0 [facility] Comment on above: Performed By: #### 2 [id number] #### [facility] [address] [place] [address] MCV (RBC) [Entitic vol] 96.5 fL Normal 80.0-100.0 [facility] Comment on above: Performed By: #### 2 [id number] #### [facility] [address] [place] [address] Monocytes (Bld) [#/Vol] 0.4 E9/L Normal 0.2-1.0 [facility] Comment on above: Performed By: #### 2 [id number] #### [facility] [address] [place] [address] Neutrophils (Bld) [#/Vol] 1.3 E9/L Low 2.0-7.5 [facility] Comment on above: Performed By: #### 2 [id number] #### [facility] [address] [place] [address] Neutrophils/100 WBC (Bld) 36.6 % Normal 36.0-75.0 [facility] Comment on above: Performed By: #### 2 902503 #### [facility] [address] [place] [address] Platelet 187.0 E9/L Normal 150.0-500.0 [facility] Comment on above: Performed By: #### 2 145406 #### [facility] [address] [place] [address] Platelet mean volume (Bld) [Entitic vol] 7.8 fL Normal 6.4-10.8 [facility] Comment on above: Performed By: #### 2 [id number] #### [facility] [address] [place] [address] RBC (Bld) [#/Vol] 4.3 E12/L Normal 4.3-5.9 [facility] Comment on above: Performed By: #### 2 [id number] #### [facility] [address] [place] [address] WBC corrected for nucl RBC Auto (Bld) [#/Vol] 3.6 E9/L Low 4.0-11.0 [facility] Comment on above: Result Comment: Ciara pheral smear review performed. Performed By: #### 2 [id number] #### [facility] [address] [place] [address] CHEMISTRYOrdered By: SYSTEM SYSTEM on 11-25-2024 Anion [...] low as reasonably achievable. Ordering Provider: Lawrence Elsie FINAL REPORT Dictated: 11/25/2024 9:21 am Venancio Jean Baptiste MD Signed (Electronic Signature): 11/25/2024 9:21 am Signed by: Venancio Jean Baptiste MD Transcribed by: JEANINE Technologist: NATHALIA Technical Comments GFR (mL/min/1/73m2) 96 Contrast: Isovue 300 Contrast amount in ml's: 130 Normal [facility] CT Chest w/ Contraston 11-25 CT Chest [...] 300 Contrast amount in ml's: 130 Normal [facility] CT Head or Brain w/o Contras ton [...] MD Transcribed by: JEANINE Technologist: NATHALIA Hannon [facility] CT Spine Cervical w/o Contra ston 11-25-2024 CT Spine Cervical w/o Contrast Exam [...] MD Transcribed by: JEANINE Technologist: NATHALIA Hannon [facility] EMS Documentationon 11-25-19 EMS Documentation Report Please click on link to see report Normal [facility] Comment on above: Result Comment: Miss sotelo Attachment - total size limit for all attachments exceeded [id number] Can be viewed in source system Folateon 11-25-2024 Folate [Mass/Vol] 7.9 ng/mL Normal >=6.7 [facility] Comment on above: Performed By: #### 2 [id number] #### [facility] [address] [place] [address] HEMATOLOGYOrdered By: SYSTEM SYSTEM on 11-25-2024 Basophils/100 [...] to mobilizing. Will check back 11/26/23. Normal [facility] TSH With T4fr Reflexon 11-25 TSH Qn 4.04 m[IU]/L Normal 0.34-5.60 [facility] Comment on above: Performed By: #### 1 [id number] #### [facility] [address] [place] [address] Vit B12on 11-25-2024 Cobalamin (Vitamin B12) [Mass/Vol] 139 pg/mL Normal 50-1500 [facility] Comment on above: Performed By: #### 2 479425 #### [facility] [address] [place] [address] XR Shoulder Complete Righton 11-25-2024 XR Shoulder [...] mGy = . DAP = . Normal [facility] eGFRon 11-25-2024 eGFR 99 mL/min/1.73 m2 Normal >=59 [facility] Comment on above: Performed By: #### 1 [id number] #### [facility] [address] [place] [address] ABO/Rhon 11-24-2024 ABO/Rh Positive Invalid Interpretation Code [facility] Comment on above: Performed By: #### 2 [id number] #### [facility] [address] [place] [address] ABSCon 11-24-2024 ABSC Gel Interp Negative Normal [facility] Comment on above: Performed By: #### 1 [id number] #### [facility] [address] [place] [address] BLOOD BANKOrdered By: Erika Farrell on 11-24-2024 ABO/Rh Interp Positive Invalid Interpretation Code [facility] BB Subsection ABSC Gel Interp Negative (11/24/24 5:34 PM) Normal [facility] BB Subsection BMPon 11-24-2024 Anion gap [Moles/Vol] 8 mmol/L Normal 6-16 [facility] Comment on above: Performed By: #### 2 [id number] #### [facility] [address] [place] [address] Calcium [Mass/Vol] 8.9 mg/dL Normal 8.9-11.1 [facility] Comment on above: Performed By: #### 2 [id number] #### [facility] [address] [place] [address] Chloride [Moles/Vol] 105 mmol/L Normal 101-[address] [facility] Comment on above: Performed By: #### 2 [id number] #### [facility] [address] [place] [address] CO2 [Moles/Vol] 30 mmol/L Normal 21-31 [facility] Comment on above: Performed By: #### 2 837144 #### [facility] [address] [place] [address] Creatinine [Mass/Vol] 0.7 mg/dL Normal 0.5-1.3 [facility] Comment on above: Performed By: #### 2 995630 #### [facility] [address] [place] [address] Glucose [Mass/Vol] 89 mg/dL Normal 55-199 [facility] Comment on above: Performed By: #### 2 556402 #### [facility] [address] [place] [address] Potassium [Moles/Vol] 3.6 mmol/L Normal 3.5-5.3 [facility] Comment on above: Performed By: #### 2 890498 #### [facility] [address] [place] [address] Sodium [Moles/Vol] 139 mmol/L Normal 135-145 [facility] Comment on above: Performed By: #### 2 216452 #### [facility] [address] [place] [address] Urea nitrogen [Mass/Vol] 11 mg/dL Normal 5-21 [facility] Comment on above: Performed By: #### 2 576091 #### [facility] [address] [place] [address] Urea nitrogen/Creatinine [Mass ratio] 16 No Units Normal 10-20 [facility] Comment on above: Performed By: #### 2 337343 #### [facility] [address] [place] [address] Blood Bank ID#on 11-24-2024 BBID# [id number] Invalid Interpretation Code [facility] Comment on above: Performed By: #### 1 [id number] #### [facility] [address] [place] [address] CBC w/ Auto Diffon 5 Basophils/100 WBC (Bld) 0.8 % Normal 0.0-2.0 [facility] Comment on above: Performed By: #### 2 [id number] #### [facility] [address] [place] [address] Basophils/Leukocytes Auto (Bld) [Pure # fraction] 0.0 E9/L Normal 0.0-0.2 [facility] Comment on above: Performed By: #### 2 375711 #### [facility] [address] [place] [address] Eosinophils (Bld) [#/Vol] 0.1 E9/L Normal 0.0-0.5 [facility] Comment on above: Performed By: #### 2 [id number] #### [facility] [address] [place] [address] Eosinophils/100 WBC (Bld) 2.6 % Normal 0.0-8.0 [facility] Comment on above: Performed By: #### 2 [id number] #### [facility] [address] [place] [address] Erythrocyte distribution width (RBC) [Ratio] 13.2 % Normal 10.9-14.2 [facility] Comment on above: Performed By: #### 2 771356 #### [facility] [address] [place] [address] Hematocrit (Bld) [Volume fraction] 42.4 % Normal 34.0-46.0 [facility] Comment on above: Performed By: #### 2 990320 #### [facility] [address] [place] [address] Hemoglobin (Bld) [Mass/Vol] 14.8 g/dL Normal 12.0-16.0 [facility] Comment on above: Performed By: #### 2 [id number] #### [facility] [address] [place] [address] Lymphocytes (Bld) [#/Vol] 1.7 E9/L Normal 1.0-4.0 [facility] Comment on above: Performed By: #### 2 550335 #### [facility] [address] [place] [address] Lymphocytes/100 WBC (Bld) 40.2 % Normal 14.0-50.0 [facility] Comment on above: Performed By: #### 2 [id number] #### [facility] [address] [place] [address] MCH (RBC) [Entitic mass] 33.8 pg Normal 27.0-34.0 [facility] Comment on above: Performed By: #### 2 [id number] #### [facility] [address] [place] [address] MCHC (RBC) [Mass/Vol] 34.8 g/dL Normal 31.4-36.0 [facility] Comment on above: Performed By: #### 2 [id number] #### [facility] [address] [place] [address] MCV (RBC) [Entitic vol] 97.4 fL Normal 80.0-100.0 [facility] Comment on above: Performed By: #### 2 488160 #### [facility] [address] [place] [address] Monocytes (Bld) [#/Vol] 0.4 E9/L Normal 0.2-1.0 [facility] Comment on above: Performed By: #### 2 569250 #### [facility] [address] [place] [address] Neutrophils (Bld) [#/Vol] 1.9 E9/L Low 2.0-7.5 [facility] Comment on above: Performed By: #### 2 167282 #### [facility] [address] [place] [address] Neutrophils/100 WBC (Bld) 46.5 % Normal 36.0-75.0 [facility] Comment on above: Performed By: #### 2 397089 #### [facility] [address] [place] [address] Platelet mean volume (Bld) [Entitic vol] 7.7 fL Normal 6.4-10.8 [facility] Comment on above: Performed By: #### 2 295232 #### [facility] [address] [place] [address] Platelets (Bld) [#/Vol] 185.0 E9/L Normal 150.0-500.0 [facility] Comment on above: Performed By: #### 2 [id number] #### [facility] [address] [place] [address] RBC (Bld) [#/Vol] 4.4 E12/L Normal 4.3-5.9 [facility] Comment on above: Performed By: #### 2 [id number] #### [facility] [address] [place] [address] WBC corrected for nucl RBC Auto (Bld) [#/Vol] 4.1 E9/L Normal 4.0-11.0 [facility] Comment on above: Performed By: #### 2 [id number] #### [facility] [address] [place] [id number] CHEMISTRYOrdered By: SYSTEM SYSTEM on 11-24-2024 Amphetamines [...] 32.3 s Normal 25.1 - 36.5 second(s) [facility] Auto Coag Comment on above: Interpretive Data: [...] the same coagulation reagent and instrumentation as [facility]. Currently there are no coagulation studies available worldwide for children to 14 days, and no normal ranges. Heparin therapeutic range (represented by Anti-Factor Xa activity of 0.2 - 0.4 U/mL) corresponds to PTT of 56.6 - 109.0 sec. INR Coag (PPP) [Relative time] 1.04 {INR} Invalid Interpretation Code [facility] Auto Coag Comment on above: Interpretive Data: I NR results are specifically intended to assess patients stabilized on long-term Anticoagulation therapy suggested INR s Less Intensive Anticoagulation 2.0 3.0 Conventional Range 3.0 4.5 PT Coag (PPP) [Time] 11.7 s Normal 9.4 - 1 2.5 second(s) [facility] Auto Coag Comment on above: Interpretive Data: [...] the same coagulation reagent and instrumentation as [facility]. Currently there are no coagulation studies available worldwide for children to 14 days, and no normal ranges. ED Clinical Summaryon 2024 ED Clinical Summary ED Clinical Summary [place] [id number] ED Clinical Summary Person Information [facility]: [facility] Age: 64 Years : 1960 Sex: Female Language: Djiboutian PCP: Fly Luis MD Marital Status: Visit Id: Visit Reason: Scalp laceration; Fall; Shortness of breath; fall Speciality: Acuity: 2 Enc Type: Observation Med Service: Nursery Arrival: 11/24/2024 17:08:50 Discharge: LOS: 000 03:41 Checkin: 11/24/2024 17:08:50 Checkout: 11/24/2024 20:49:33 Dispo Type: Admitted as IP to this [facility] EVENTS: Event Name Event Status Request [...] 20:31:36 Meds Admin Request 11/24/2024 20:36:44 ADDRESS: [facility] [place] [facility] [id number] [facility] DOC NOTES: Addendum by Dioni Gallardo DO [...] Tablets By Mouth every day. Refills: 5. [facility] [place] By Mo (more content not included)... Normal [facility] ED Note-Physicianon 11-24-19 ED Note-Physician ED Note-Physician Basic Information Time Seen: Lawrecne Elise DO 11/24/2024 17:12 Chief Complaint pt [...] or rigidity noted. Neurological: A&O, normal equal advertising display rotator strength, normal speech, normal coordination, normal motor, [...] prescription medications (more content not included)... Normal [facility] Comment on above: Result Comment: Elec tronically [...] or rigidity noted. Neurological: A&O, normal equal advertising display rotator strength, normal speech, normal coordination, normal motor, [...] prescription medications (more content not included)... Normal [facility] Comment on above: Result Comment: Elec tronically Signed By: Lawrence Elise DO\.br\Date and Time Signed: 11/24/24 18:32 EST ED Patient Education Noteon 11-24-2024 ED Patient Education Note ED Patient Education Note Normal [facility] ED Patient Summaryon 025 ED Patient Summary ED Patient Summary [place] [id number] Patient Discharge Instructions Person Information Name: ELLA JACOBO Age: 64 Years Arrival Date: 11/24/2024 17:08:50 Discharge Diagnosis: 2:Leg weakness, bilateral; 3:HTN (hypertension), benign; 4:Anxiety and depression; 5:HLD (hyperlipidemia); 6:RLS (restless legs syndrome); 7:CAD (coronary artery disease); 8:PVD (peripheral vascular disease); 9:On deep vein thrombosis (DVT) prophylaxis; Back pain; Depression, unspecified; Dizziness; Dyspnea; Forehead abrasion; Head injury Primary Care Physician: Fly Luis MD Provider Information Primary Provider: Lawrence Elise DO [employer] Worker Leader:None The exam and treatment you received in the Emergency Department were for an urgent problem and are not intended as complete care. It is important that you follow up with a doctor, nurse practitioner, or physician???s central supply assistant for ongoing care. If your symptoms become worse or you do not improve as expected and you are unable to reach your usual health care provider, you should return to the Emergency Department. We are available 24 hours a day. ELLA JACOBO has been given the following list [...] opioids can be used to help relieve jtlzenea-pw-rohjhz pain and are often prescribed following a [...] to learn (more content not included)... Normal [facility] Ethanolon 11-24-2024 Ethanol Lvl <10 Normal <=11 [facility] Comment on above: Performed By: #### 2 [id number] #### [facility] [address] [place] [address] HEMATOLOGYOrdered By: SYSTEM SYSTEM on 11-24-2024 Basophils/100 [...] 11-24-2024 Albumin [Mass/Vol] 3.8 g/dL Normal 3.3-5.0 [facility] Comment on above: Performed By: #### 2 [id number] #### [facility] [address] [place] [address] Albumin/Globulin (S) [Mass conc ratio] 1.4 Normal 1.1-2.2 [facility] Comment on above: Performed By: #### 2 [id number] #### [facility] [address] [place] [address] ALP [Catalytic activity/Vol] 91 Int._Unit/L Normal 21-98 [facility] Comment on above: Performed By: #### 2 [id number] #### [facility] [address] [place] [address] ALT No additional P-5'-P [Catalytic activity/Vol] 9 Int._Unit/L Normal 6-46 [facility] Comment on above: Performed By: #### 2 [id number] #### [facility] [address] [place] [address] AST [Catalytic activity/Vol] 15 Int._Unit/L Normal 5-43 [facility] Comment on above: Performed By: #### 2 [id number] #### [facility] [address] [place] [address] Bilirubin [Mass/Vol] 0.6 mg/dL Normal 0.0-1.[address] [facility] Comment on above: Performed By: #### 2 [id number] #### [facility] [address] [place] [address] Bilirubin.direct [Mass/Vol] 0.1 mg/dL Normal 0.0-0.4 [facility] Comment on above: Performed By: #### 2 [id number] #### [facility] [address] [place] [address] Bilirubin.indirect [Mass or moles/Vol] 0.5 mg/dL Normal 0.1-0.9 [facility] Comment on above: Performed By: #### 2 [id number] #### [facility] [address] [place] [address] Globulin (S) [Mass/Vol] 2.8 g/dL Normal 1.4-4.0 [facility] Comment on above: Performed By: #### 2 [id number] #### [facility] [address] [place] [address] Protein [Mass/Vol] 6.6 g/dL Normal 6.0-7.8 [facility] Comment on above: Performed By: #### 2 [id number] #### [facility] [address] [place] [address] Lactic Acidon 11-24-2024 Lactic Acid Lvl 0.7 mmol/L Normal 0.5-2.2 [facility] Comment on above: Performed By: #### 2 [id number] #### [facility] [address] [place] [address] Lipase Levelon 11-24-2024 Lipase [Catalytic activity/Vol] 11 U/L Low 13-58 [facility] Comment on above: Performed By: #### 2 [id number] #### [facility] [address] [place] [address] PT & PTTon 11-24-2024 aPTT Coag (PPP) [Time] 32.3 second(s) Normal 25.1-36.5 [facility] Comment on above: Result Comment: Para meter [...] the same coagulation reagent and instrumentation as [facility]. Currently there are no coagulation studies available worldwide for children to 14 days, and no normal ranges. Heparin therapeutic range (represented by Anti-Factor Xa activity of 0.2 - 0.4 U/mL) corresponds to PTT of 56.6 - 109.0 sec. Performed By: #### 1 [id number] #### [facility] [address] [place] [address] INR Coag (PPP) [Relative time] 1.04 {INR} Invalid Interpretation Code [facility] Comment on above: Result Comment: INR results are specifically intended to assess patients stabilized on long-term Anticoagulation therapy suggested INR???s ???Less Intensive Anticoagulation??? 2.0 ??? 3.0 Conventional Range 3.0 ??? 4.5 Performed By: #### 1 [id number] #### [facility] [address] [place] [address] PT Coag (PPP) [Time] 11.7 second(s) Normal 9.4-12.5 [facility] Comment on above: Result Comment: 15 d [...] the same coagulation reagent and instrumentation as [facility]. Currently there are no coagulation studies available worldwide for children to 14 days, and no normal ranges. Performed By: #### 1 [id number] #### [facility] [address] [place] [address] Pre-Arrival Noteon Pre-Arrival Note Pre-Arrival Note Pre-Arrival Summary Name: , [facility] Current Date: 11/24/2024 17:09:58 EST Gender: Female Date of : Age: 64 Pre-Arrival Type: EMS ETA: 11/24/2024 17:33:00 EST Primary Care Physician: Presenting Problem: fall Pre-Arrival User: Mary Brown RN Referring Source: Location: Completion Date/Time: 11/24/2024 17:03:[address] [facility] Emergency Department Pre-Hospital Report Form ___ Vital Signs: Pre-Hospital Report: Treatment in Route: Response to Treatment: Misc. Issues: Normal [facility] Pre-Arrival Note Pre-Arrival Note Pre-Arrival Summary Name: , [facility] Current Date: 11/24/2024 17:09:57 EST Gender: Female Date of : Age: 64 Pre-Arrival Type: EMS ETA: 11/24/2024 17:33:00 EST Primary Care Physician: Presenting Problem: fall Pre-Arrival User: Mary Brown RN Referring Source: Location: Date/Time: 11/24/2024 17:03:[address] [facility] Emergency Department Pre-Hospital Report Form ___ Vital Signs: Pre-Hospital Report: Treatment in Route: Response to Treatment: Misc. Issues: Normal [facility] Troponinon 11-24-2024 Troponin HS 7.10 pg/mL Low 10.10-27.10 [facility] Comment on above: Result Comment: The 95% CI (Confidence Interval) PPV (Positive Predictive Value) for myocardial infarction in females is 38 pg/mL, in males 51 pg/mL. The results should be used in conjunction with clinical conditions of myocardial infarction. (Access High Sensitivity Troponin I Instructions For Use, Shivani Vancouver, June 2018) Performed By: #### 2 [id number] #### [facility] [address] [place] [address] U Drug Screenon 11-24-2024 Amphetamines Screen method >1000 ng/mL Ql (U) Negative Normal NEGATIVE [facility] Comment on above: Result Comment: Nega tive Cutoff: <1000 ng/mL Performed By: #### 2 [id number] #### [facility] [address] [place] [address] Barbiturates Screen Ql (U) Negative Normal NEGATIVE [facility] Comment on above: Result Comment: Nega tive Cutoff: <200 ng/mL Performed By: #### 2 [id number] #### [facility] [address] [place] [address] Benzodiazepines Ql (U) Positive Abnormal NEGATIVE [facility] Comment on above: Result Comment: Nega tive Cutoff: <200 ng/mL Performed By: #### 2 [id number] #### [facility] [address] [place] [address] Cannabinoids Screen Ql (U) Negative Normal NEGATIVE [facility] Comment on above: Result Comment: Nega tive Cutoff: <50 ng/mL Performed By: #### 2 [id number] #### [facility] [address] [place] [address] Cocaine Ql (U) Negative Normal NEGATIVE [facility] Comment on above: Result Comment: Nega tive Cutoff: <300 ng/mL Performed By: #### 2 [id number] #### [facility] [address] [place] [address] Opiates Screen Ql (U) Negative Normal NEGATIVE [facility] Comment on above: Result Comment: Nega tive Cutoff: <300 ng/mL Performed By: #### 2 [id number] #### [facility] [address] [place] [address] Phencyclidine Screen method >25 ng/mL Ql (U) Negative Normal NEGATIVE [facility] Comment on above: Result Comment: Nega tive Cutoff: <25 ng/mL These drug screen results are to be used for medical (i.e., treatment) purposes only. Unconfirmed drug screening results must not be used for non-medical purposes (e.g., employment testing, legal testing). Performed By: #### 2 [id number] #### [facility] [address] [place] [address] U Fentanyl Negative Normal NEGATIVE [facility] Comment on above: Result Comment: Nega tive Cutoff: <5 ng/mL These drug screen results are to be used for medical (i.e., treatment) purposes only. Unconfirmed drug screening results must not be used for non-medical purposes (e.g., employment testing, legal testing). Performed By: #### 2 [id number] #### [facility] [address] [place] [address] UA with Cult [employer]xon 11-24-19 25 Bilirubin Ql (U) Negative Normal Negative [facility] Comment on above: Performed By: #### 4 [id number] #### [facility] [address] [place] [address] Clarity (U) Clear Normal Clear [facility] Comment on above: Performed By: #### 4 [id number] #### [facility] [address] [place] [address] Color (U) Colorless Abnormal Yellow [facility] Comment on above: Result Comment: Micr oscopic readings are only performed on those samples that meet specific criteria set forth by [facility]. Performed By: #### 4 [id number] #### [facility] [address] [place] [address] Glucose Ql (U) Negative Normal Negative [facility] Comment on above: Performed By: #### 4 [id number] #### [facility] [address] [place] [address] Hemoglobin Auto test strip (U) [Mass/Vol] Negative Normal Negative [facility] Comment on above: Performed By: #### 4 [id number] #### [facility] [address] [place] [address] Ketones Auto test strip Ql (U) Negative Normal Negative [facility] Comment on above: Performed By: #### 4 [id number] #### [facility] [address] [place] [address] Leukocyte esterase Auto test strip Ql (U) Negative Normal Negative [facility] Comment on above: Performed By: #### 4 [id number] #### [facility] [address] [place] [address] Nitrite Auto test strip Ql (U) Negative Normal Negative [facility] Comment on above: Performed By: #### 4 [id number] #### [facility] [address] [place] [address] pH (U) 7.0 [pH] Invalid Interpretation Code 5.0-9.0 [facility] Comment on above: Performed By: #### 4 [id number] #### [facility] [address] [place] [address] Protein Ql (U) Negative Normal Negative [facility] Comment on above: Performed By: #### 4 [id number] #### [facility] [address] [place] [address] Specific gravity (U) [Rel density] 1.030 Invalid Interpretation Code 1.005-1.030 [facility] Comment on above: Performed By: #### 4 [id number] #### [facility] [address] [place] [address] Urobilinogen (U) [Mass/Vol] Negative Normal Negative [facility] Comment on above: Performed By: #### 4 [id number] #### [facility] [address] [place] [address] Type of Urine collection method Clean Catch Normal [facility] Comment on above: Performed By: #### 4 [id number] #### [facility] [address] [place] [address] URINALYSISOrdered By: SYSTEM SYSTEM on 11-24-2024 Bilirubin Ql (U) Negative Normal Negativemg/dL [facility] UA Auto SS Clarity (U) Clear (11/24/24 7:51 PM) Normal Clear [facility] UA Auto SS Color (U) Colorless 3 *ABN* (11/24/24 7:51 PM) Invalid Interpretation Code Yellow [facility] UA Auto SS Comment on above: Interpretive Data: M icroscopic readings are only performed on those samples that meet specific criteria set forth by [facility]. Glucose Ql (U) Negative Normal Negativemg/dL [facility] UA Auto SS Hemoglobin Auto test strip (U) [Mass/Vol] Negative Normal Negativemg/dL [facility] Aut o SS Ketones Auto test strip Ql (U) Negative Normal Negativemg/dL [facility] UA Auto SS Leukocyte esterase Auto test strip Ql (U) Negative Normal NegativeLeu/uL [facility] Auto SS Nitrite Auto test strip Ql (U) Negative Normal Negativemg/dL [facility] Auto SS pH (U) 7.0 *NA* (11/24/24 7:51 PM) Invalid Interpretation Code 5.0 - 9.0 [facility] UA Auto SS Protein Ql (U) Negative Normal Negativemg/dL [facility] UA Auto SS Specific gravity (U) [Rel density] 1.030 *NA* (11/24/24 7:51 PM) Invalid Interpretation Code 1.005 - 1.030 [facility] UA Auto SS Urobilinogen (U) [Mass/Vol] Negative Normal Negativemg/dL [facility] UA Auto SS URINALYSISOrdered By: Lawrence toledo on 11-24-2024 UA Spec Desc Clean Catch (11/24/24 7:51 PM) Normal [facility] UA Auto SS Work Phone: eGFRon 11-24-2024 eGFR 96 mL/min/1.73 m2 Normal >=59 [facility] Comment on above: Performed By: #### 1 [id number] #### [facility] [address] [place] [address] Heart and Vascular Office/Cl inic Noteon 11-13-2024 Heart and Vascular Office/Clinic Note Heart and Vascular Office/Clinic Note Chief Complaint `inpt f/u chest pain, cad, hld, htn, copd, pt is having more falls but feels like it could have been med related, and she is having nausea at night History of Present Illness Ella is a 64 year old female with [...] Patient reports that she was in the [facility] this past weekend due to issues with [...] Cardiac D (more content not included)... Normal [facility] Comment on above: Result Comment: Elec tronically Signed By: Byron ZHANG, Amilcar Abbott\.br\Date and Time Signed: 11/13/24 13:17 EST Provider Letteron 11-01-2024 Provider Letter Provider Letter November 01, 2024 ELLA JACOBO [address] [place] [phone] ELLA JACOBO 1960 Dear Ella , We have been trying to reach you with no success. It is important that you return our call regarding your recent hospital discharge upon receiving this letter. Also, at the time of your call, please provide us with your current information. Thank you for your prompt attention to this matter. Sincerely, Miguel SALAZAR [phone] Normal [facility] BMPon 10-29-2024 Anion gap [Moles/Vol] 12 mmol/L Normal 6-16 [facility] Comment on above: Performed By: #### 2 [id number] #### [facility] [address] [place] [address] Calcium [Mass/Vol] 9.0 mg/dL Normal 8.9-11.1 [facility] Comment on above: Performed By: #### 2 [id number] #### [facility] [address] [place] [address] Chloride [Moles/Vol] 106 mmol/L Normal 101-[address] [facility] Comment on above: Performed By: #### 2 [id number] #### [facility] [address] [place] [address] CO2 [Moles/Vol] 26 mmol/L Normal 21-31 [facility] Comment on above: Performed By: #### 2 [id number] #### [facility] [address] [place] [address] Creatinine [Mass/Vol] 0.6 mg/dL Normal 0.5-1.3 [facility] Comment on above: Performed By: #### 2 [id number] #### [facility] [address] [place] [address] Glucose [Mass/Vol] 108 mg/dL Normal 55-199 [facility] Comment on above: Performed By: #### 2 [id number] #### [facility] [address] [place] [address] Potassium [Moles/Vol] 3.7 mmol/L Normal 3.5-5.3 [facility] Comment on above: Performed By: #### 2 [id number] #### [facility] [address] [place] [address] Sodium [Moles/Vol] 140 mmol/L Normal 135-145 [facility] Comment on above: Performed By: #### 2 [id number] #### [facility] [address] [place] [address] Urea nitrogen [Mass/Vol] 18 mg/dL Normal 5-21 [facility] Comment on above: Performed By: #### 2 [id number] #### [facility] [address] [place] [address] Urea nitrogen/Creatinine [Mass ratio] 30 No Units High 10-20 [facility] Comment on above: Performed By: #### 2 [id number] #### [facility] [address] [place] [address] CBC w/ Auto Diffon 4 Basophils/100 WBC (Bld) 0.9 % Normal 0.0-2.0 [facility] Comment on above: Performed By: #### 2 [id number] #### [facility] [address] [place] [address] Basophils/Leukocytes Auto (Bld) [Pure # fraction] 0.0 E9/L Normal 0.0-0.2 [facility] Comment on above: Performed By: #### 2 [id number] #### [facility] [address] [place] [address] Eosinophils (Bld) [#/Vol] 0.1 E9/L Normal 0.0-0.5 [facility] Comment on above: Performed By: #### 2 [id number] #### [facility] [address] [place] [address] Eosinophils/100 WBC (Bld) 2.3 % Normal 0.0-8.0 [facility] Comment on above: Performed By: #### 2 [id number] #### [facility] [address] [place] [address] Erythrocyte distribution width (RBC) [Ratio] 14.2 % Normal 10.9-14.2 [facility] Comment on above: Performed By: #### 2 [id number] #### [facility] [address] [place] [address] Hematocrit (Bld) [Volume fraction] 42.7 % Normal 34.0-46.0 [facility] Comment on above: Performed By: #### 2 [id number] #### [facility] [address] [place] [address] Hemoglobin (Bld) [Mass/Vol] 14.7 g/dL Normal 12.0-16.0 [facility] Comment on above: Performed By: #### 2 [id number] #### [facility] [address] [place] [address] Lymphocytes (Bld) [#/Vol] 1.8 E9/L Normal 1.0-4.0 [facility] Comment on above: Performed By: #### 2 [id number] #### [facility] [address] [place] [address] Lymphocytes/100 WBC (Bld) 42.1 % Normal 14.0-50.0 [facility] Comment on above: Performed By: #### 2 [id number] #### [facility] [address] [place] [address] MCH (RBC) [Entitic mass] 33.5 pg Normal 27.0-34.0 [facility] Comment on above: Performed By: #### 2 [id number] #### [facility] Laboratory [address] [place] [address] MCHC (RBC) [Mass/Vol] 34.4 g/dL Normal 31.4-36.0 [facility] Comment on above: Performed By: #### 2 [id number] #### [facility] Laboratory [address] [place] [address] 22665 MCV (RBC) [Entitic vol] 97.5 fL Normal 80.0-100.0 [facility] Comment on above: Performed By: #### 2 [id number] #### [facility] Laboratory [address] [place] [address] 92275 Monocytes (Bld) [#/Vol] 0.4 E9/L Normal 0.2-1.0 [facility] Comment on above: Performed By: #### 2 [id number] #### [facility] Laboratory [address] [place] [address] 76346 Neutrophils (Bld) [#/Vol] 1.9 E9/L Low 2.0-7.5 [facility] Comment on above: Performed By: #### 2 [id number] #### [facility] Laboratory [address] [place] [address] Neutrophils/100 WBC (Bld) 45.7 % Normal 36.0-75.0 [facility] Comment on above: Performed By: #### 2 [id number] #### [facility] Laboratory [address] [place] [address] Platelet mean volume (Bld) [Entitic vol] 6.9 fL Normal 6.4-10.8 [facility] Comment on above: Performed By: #### 2 [id number] #### [facility] Laboratory [address] [place] [address] Platelets (Bld) [#/Vol] 170.0 E9/L Normal 150.0-500.0 [facility] Comment on above: Performed By: #### 2 [id number] #### [facility] Laboratory [address] [place] [address] 53770 RBC (Bld) [#/Vol] 4.4 E12/L Normal 4.3-5.9 [facility] Comment on above: Performed By: #### 2 [id number] #### [facility] Laboratory [address] [place] [address] WBC corrected for nucl RBC Auto (Bld) [#/Vol] 4.2 E9/L Normal 4.0-11.0 [facility] Comment on above: Performed By: #### 2 [id number] #### [facility] Laboratory [address] [place] [address] CHEMISTRYOrdered By: SYSTEM SYSTEM on 10-29-2024 Troponin [...] Sensitivity Troponin I Instructions For Use, Shivani Vancouver, June 2018) Albumin [Mass/Vol] 4.0 g/dL Normal [...] Sensitivity Troponin I Instructions For Use, Shivani Vancouver, June 2018) Urea nitrogen [Mass/Vol] 18 mg/dL Normal 5 - 21 mg/dL Remisol Chem Urea nitrogen/Creatinine [Mass ratio] 30 mg/mg High 10 - 20 [facility] COAGULATIONOrdered By: Cindy Jacobs on 10-29-2024 aPTT Coag (PPP) [Time] 32.8 s Normal 25.1 - 36.5 second(s) [facility] Auto Coag Comment on above: Interpretive Data: [...] the same coagulation reagent and instrumentation as [facility]. Currently there are no coagulation studies available worldwide for children to 14 days, and no normal ranges. Heparin therapeutic range (represented by Anti-Factor Xa activity of 0.2 - 0.4 U/mL) corresponds to PTT of 56.6 - 109.0 sec. Fibrin D-dimer FEU (PPP) [Mass/Vol] 447 ng/mL FEU Normal 215 - 500 ng/mL FEU [facility] Auto Coag Comment on above: Interpretive Data: [...] [Relative time] 0.96 {INR} Invalid Interpretation Code [facility] Auto Coag Comment on above: Interpretive Data: I NR results are specifically intended to assess patients stabilized on long-term Anticoagulation therapy suggested INR s Less Intensive Anticoagulation 2.0 3.0 Conventional Range 3.0 4.5 PT Coag (PPP) [Time] 10.7 s Normal 9.4 - 1 2.5 second(s) [facility] Auto Coag Comment on above: Interpretive Data: [...] the same coagulation reagent and instrumentation as [facility]. Currently there are no coagulation studies available worldwide for children to 14 days, and no normal ranges. D-Dimeron 10-29-2024 Fibrin D-dimer FEU (PPP) [Mass/Vol] 447 [id number] Normal 215-500 [facility] Comment on above: Result Comment: This assay [...] infections Liver cirrhosis Performed By: #### 2 [id number] #### [facility] Laboratory [address] [place] [address] ED Clinical Summaryon 2023 ED Clinical Summary ED Clinical Summary [address] [address] ED Clinical Summary Person Information Name: ELLA JACOBO/Tatiana Age: 64 Years : 1960 Sex: Female Language: Djiboutian PCP: Fly Luis MD Marital Status: Visit Id: Visit Reason: Nausea; Shortness of breath; Chest pain; CHEST PAIN Speciality: Acuity: 2 Enc Type: Observation Med Service: Medical Arrival: 10/29/2024 07:41:11 Discharge: LOS: 000 02:12 Checkin: 10/29/2024 07:41:11 Checkout: 10/29/2024 09:53:56 Dispo Type: Admitted as IP to this [facility] EVENTS: Event Name Event Status Request [...] 10/29/2024 09:53:56 10/29/2024 09:53:56 10/29/2024 09:53:56 ADDRESS: [address] [place] [address] [facility] [id number] PHYS DOC NOTES: MEDICAL INFORMATION: Prescriptions Given: [...] EDUCATION INFORMATION: Instructions: Follow up: DIAGNOSIS: Normal [facility] ED Note-Physicianon 10-29-20 ED Note-Physician ED Note-Physician [...] Inpatient No (more content not included)... Normal [facility] Comment on above: Result Comment: Elec tronically Signed By: Lawrence Elise DO\.br\Date and Time Signed: 10/29/24 09:27 EST ED Patient Education Noteon 10-29-2024 ED Patient Education Note ED Patient Education Note Normal [facility] ED Patient Summaryon 024 ED Patient Summary ED Patient Summary [place] [id number] Patient Discharge Instructions Person Information Name: ELLA JACOBO Age: 64 Years Arrival Date: 10/29/2024 07:41:11 Discharge Diagnosis: Primary Care Physician: Fly Luis MD Provider Information Primary Provider: Lawrence Elise DO [employer] Worker Leader:None The exam and treatment you received in the Emergency Department were for an urgent problem and are not intended as complete care. It is important that you follow up with a doctor, nurse practitioner, or physician???s central supply assistant for ongoing care. If your symptoms become worse or you do not improve as expected and you are unable to reach your usual health care provider, you should return to the Emergency Department. We are available 24 hours a day. ELLA JACOBO has been given the following list [...] opioids can be used to help relieve mlurdyra-pl-osahkv pain and are often prescribed following a [...] be struggling with addiction, tell your health caregivers homecare and ask for guidance or call [facility]???S National Helpline at 0-859-912-HELP. v Source: [place] Department of Health and Human Services/Center for Disease Control & Prevention [facility] (more content not included)... Normal [facility] HEMATOLOGYOrdered By: Ryder Jacobs on 10-29-2024 Basophils/100 [...] 10-29-2024 Albumin [Mass/Vol] 4.0 g/dL Normal 3.3-5.0 [facility] Comment on above: Performed By: #### 2 [id number] #### [facility] Laboratory [address] [place] [address] Albumin/Globulin (S) [Mass conc ratio] 1.4 Normal 1.1-2.2 [facility] Comment on above: Performed By: #### 2 [id number] #### [facility] [address] [place] [address] ALP [Catalytic activity/Vol] 102 Int._Unit/L High 21-98 [facility] Comment on above: Performed By: #### 2 [id number] #### [facility] Laboratory [address] [place] [address] ALT No additional P-5'-P [Catalytic activity/Vol] 13 Int._Unit/L Normal 6-46 [facility] Comment on above: Performed By: #### 2 [id number] #### [facility] [address] [place] [address] AST [Catalytic activity/Vol] 14 Int._Unit/L Normal 5-43 [facility] Comment on above: Performed By: #### 2 [id number] #### [facility] [address] [place] [address] Bilirubin [Mass/Vol] 0.5 mg/dL Normal 0.0-1.[address] [facility] Comment on above: Performed By: #### 2 855960 #### [facility] Laboratory [address] [place] [address] Bilirubin.direct [Mass/Vol] 0.1 mg/dL Normal 0.0-0.4 [facility] Comment on above: Performed By: #### 2 [id number] #### [facility] Laboratory [address] [place] [address] Bilirubin.indirect [Mass or moles/Vol] 0.4 mg/dL Normal 0.1-0.9 [facility] Comment on above: Performed By: #### 2 237146 #### [facility] Laboratory [address] [place] [address] Globulin (S) [Mass/Vol] 2.9 g/dL Normal 1.4-4.0 [facility] Comment on above: Performed By: #### 2 [id number] #### [facility] Laboratory [address] [place] [address] Protein [Mass/Vol] 6.9 g/dL Normal 6.0-7.8 [facility] Comment on above: Performed By: #### 2 061052 #### [facility] Laboratory [address] [place] [address] Inpatient Clinical Summaryon 10-29-2024 Inpatient Clinical Summary Inpatient Clinical Summary [address] [address] Clinical Summary Person Information: Name: ELLA JACOBO Age: 64 Years : 1960 Sex: Female PCP: Fly Luis MD Marital Status: Race: White Ethnicity: Non- or Language: Djiboutian Visit Id: Visit Reason: Nausea; Shortness of breath; Chest pain; CHEST PAIN Speciality: Acuity: Enc Type: Observation Med Service: Medical Arrival: 10/29/2024 07:41:11 Discharge: Dispo Type: Admitted as IP to this Hosp Address: [place] [id number] Provider Notes: Diagnosis: 3:CAD (coronary artery disease); [...] cancelled this Tuesday appoinment. With: Address: When: Janelle POSEY, Fly Jean Baptiste [facility], MED 10/31/2024 2:30 PM Type Location Start Finish State ER/Hospital Follow Up [facility] 10/31/2024 2:30 PM 10/31/2024 3:00 PM Confirmed Cardiology Follow Up (FT) [facility]iology Clinic 11/05/2024 9:30 AM 11/05/2024 9:45 AM Confirmed Vascular New Patient (FT) FT[facility]Vascular Clinic 12/03/2024 11:00 AM 12/03/2024 11:15 AM [facility] 1:00 PM 01/07/2025 1:15 PM Confirmed FM Medicare Wellness Subsequent [facility] 06/18/2025 2:30 PM 06/18/2025 3:30 PM Confirmed (more content not included)... Normal [facility] Inpatient Patient Summaryon 10-29-2024 Inpatient Patient Summary Inpatient Patient Summary ELLA JACOBO :1960 Visit Date:10/29/2024 Inpatient Discharge Instructions [...] Follow-Up Appointments Tuesday 2:30 PM EST With: Fly Luis MD Where: [address] [address]- Tuesday 9:30 AM EST With: Amilcar Matthews PA-C Where: Cardiology Clinic Tuesday 11:00 AM EST With: Abhi POSEY, [facility]. Where: Vascular Clinic Tuesday 1:00 PM EST With: Fly Luis MD Where: [address] [id number]- Tuesday 2:30 PM EDT With: Where: [address] [address]- New Follow Up Appointments after Discharge Follow Up with Amilcar Matthews PA-C When: 11/05/2024 09:30 AM EST Comments: The doctor's office cancelled this Tuesday appoinment. Where: Follow Up with Janelle POSEY, Fly Jean Baptiste, [facility], [facility] When: 10/31/2024 02:30 PM EST Where: Medications What How Much When Why Instructions Next Dose New azithromycin (azithromycin 500 mg oral tablet) 1 Tablets By Mouth Every day Pickup at [facility]pharmacy #[id number] 10/30 @ 899 New predniSONE (predniSONE 20 mg Tab) 2 Tablets By Mouth Every day Pickup at [facility]/pharmacy #[id number] 10/30 Unchanged acetaminophen (acetaminophen 325 mg [...] Tablets By Mouth Every day 10/30 @ 00 Unchanged atorvastatin (atorvastatin 80 mg Tab) 1 [...] Tab) 1 Tablets By Mouth Every day 10/2900 Unchanged [facility] Prescription (Handicap Lotus, 5 years.) See instructions Anxiety and depression Depression, unspecified HTN (hypertension), benign RLS (restless legs syndrome) Chronic obstructive pulmonary disease, unspecified COPD type Primary insomnia Current smoker Polyneuropathy Walker as ambulation aid Adult BMI 33.0-33.9 (more content not included)... Normal [facility] Inpatient Patient Summary Inpatient Patient Summary [place] [id number] Patient Discharge Instructions PERSON INFORMATION Name: ELLA JACOBO Date of : 1960 Current Date: 10/29/2024 13:09:15 PHYSICIANS Admitting Physician: Edmund Klein DO Primary Care Physician: Fly Luis MD PCP Comment: Discharge Diagnosis: 3:CAD (coronary artery disease); 4:HLD (hyperlipidemia); 5:HTN (hypertension), benign; 6:RLS (restless legs syndrome); 7:Anxiety and depression; 8:Primary insomnia; 9:Tobacco abuse; 10:Obese; Depression, unspecified Condition at Discharge: Improved ELLA JACOBO has been given the following list [...] cancelled this Tuesday appoinment. With: Address: When: Janelle POSEY, Fly Jean Baptiste, [facility], [facility] 10/31/2024 2:30 PM In the event that this physician does not participate in your insurance network, please consult with your insurance company to find a nearby participating provider. Type Location Start [facility] ER/Hospital Follow Up [facility] 10/31/2024 2:30 PM 10/31/2024 3:00 PM Confirmed Cardiology Follow Up (FT) FT.Cardiology Clinic 11/05/2024 9:30 AM 11/05/2024 9:45 AM Confirmed Vascular New Patient (FT) [facility] Clinic 12/03/2024 11:00 AM 12/03/2024 11:15 AM Confirmed FM Open [facility] 01/07/2025 1:00 PM 01/07/2025 1:15 PM Confirmed FM Medicare Wellness Subsequent [facility] 06/18/2025 2:30 PM 06/18/2025 3:30 PM Confirmed Comment: DONNELL Green ALICE, have received the attached patient education materials/instructi ons and have verbalized understanding: Patient Signature Date Clinican/Nurse Signature Date HERE ARE THE MEDICATION CHANGES THAT OCCURRED DURING YOUR HOSPITAL STAY New Medications [id number], [address] [place], [place] [id number], [phone] azithromycin (azithromycin 500 mg oral tablet) 1 [...] Dose: olanzapin (more content not included)... Normal [facility] Interdisciplinary Note - Layo e Manageron 10-29-2024 Interdisciplinary Note - Supervisor Heading Interdisciplinary Note - Supervisor Heading CRM to room 322 Patient is awake, [...] contact, white board updated. CRM following Normal [facility] Comment on above: Result Comment: Elec tronically Signed By: Shikha Morales\.br\Date and Time Signed: 10/29/24 11:46 EST Lipase Levelon 10-29-2024 Lipase [Catalytic activity/Vol] 21 U/L Normal 13-58 [facility] Comment on above: Performed By: #### 2 [id number] #### [facility] Laboratory [address] [place] [address] PT & PTTon 12-16-2024 aPTT Coag (PPP) [Time] 32.8 second(s) Normal 25.1-36.5 [facility] Comment on above: Result Comment: Para meter [...] the same coagulation reagent and instrumentation as [facility]. Currently there are no coagulation studies available worldwide for children to 14 days, and no normal ranges. Heparin therapeutic range (represented by Anti-Factor Xa activity of 0.2 - 0.4 U/mL) corresponds to PTT of 56.6 - 109.0 sec. Performed By: #### 1 [id number] #### [facility] [address] [place] [address] INR Coag (PPP) [Relative time] 0.96 {INR} Invalid Interpretation Code [facility] Comment on above: Result Comment: INR results are specifically intended to assess patients stabilized on long-term Anticoagulation therapy suggested INR???s ???Less Intensive Anticoagulation??? 2.0 ??? 3.0 Conventional Range 3.0 ??? 4.5 Performed By: #### 1 [id number] #### [facility] [address] [place] [address] PT Coag (PPP) [Time] 10.7 second(s) Normal 9.4-12.5 [facility] Comment on above: Result Comment: 15 d [...] the same coagulation reagent and instrumentation as [facility]. Currently there are no coagulation studies available worldwide for children to 14 days, and no normal ranges. Performed By: #### 1 [id number] #### [facility] [address] [place] [address] Pre-Arrival Noteon 4 Pre-Arrival Note Pre-Arrival Note [facility] Current Date: 10/29/2024 07:41:39 EST Gender: Female Date of : Age: 64 Pre-Arrival Type: EMS ETA: 10/29/2024 07:55:00 EST Primary Care Physician: Presenting Problem: chest pain Pre-Arrival User: Lia Corbett Referring Source: Location: [place] Completion Date/Time: 10/29/2024 07:25:[address] [facility] Emergency Department Pre-Hospital Report Form ___ Vital Signs: Pre-Hospital Report: Treatment in Route: Response to Treatment: Misc. Issues: Normal [facility] Troponin 0 Hr.on 10-29-2024 Troponin HS 7.70 pg/mL Low 10.10-27.10 [facility] Comment on above: Result Comment: The 95% CI (Confidence Interval) PPV (Positive Predictive Value) for myocardial infarction in females is 38 pg/mL, in males 51 pg/mL. The results should be used in conjunction with clinical conditions of myocardial infarction. (Access High Sensitivity Troponin I Instructions For Use, Shivani Margo, June 2018) Performed By: #### 1 [id number] #### [facility] [address] [place] [address] Troponin 1 Hr.on 10-29-2024 Troponin HS 7.20 pg/mL Low 10.10-27.10 [facility] Comment on above: Order Comment: Due a t 0853 Result Comment: The 95% CI (Confidence Interval) PPV (Positive Predictive Value) for myocardial infarction in females is 38 pg/mL, in males 51 pg/mL. The results should be used in conjunction with clinical conditions of myocardial infarction. (Access High Sensitivity Troponin I Instructions For Use, Shivani Margo, June 2018) Performed By: #### 1 [id number] ####[facility] [id number] [place] [address] XR Chest Single Viewon 10-29 XR Chest [...] Jamie Gresham MD Transcribed by: JEANINE Technologist: MILKA Technical Comments Radiation Dose: Ka,r in mGy = na DAP = na Normal [facility] eGFRon 10-29-2024 eGFR 99 mL/min/1.73 m2 Normal >=59 [facility] Comment on above: Performed By: #### 1 [id number] #### [facility] [address] [place] [address] BMPon 10-10-2024 Anion gap [Moles/Vol] 9 mmol/L Normal 04-29 [facility] Comment on above: Performed By: #### 2 [id number] #### [facility] [address] [place] [address] Calcium [Mass/Vol] 9.2 mg/dL Normal 8.9-11.1 [facility] Comment on above: Performed By: #### 2 [id number] #### [facility] [address] [place] [address] Chloride [Moles/Vol] 103 mmol/L Normal 101-[address] [facility] Comment on above: Performed By: #### 2 [id number] #### [facility] [address] [place] [address] CO2 [Moles/Vol] 30 mmol/L Normal 21-31 [facility] Comment on above: Performed By: #### 2 [id number] #### [facility] [address] [place] [address] Creatinine [Mass/Vol] 0.7 mg/dL Normal 0.5-1.3 [facility] Comment on above: Performed By: #### 2 [id number] #### [facility] [address] [place] [address] Glucose [Mass/Vol] 85 mg/dL Normal 55-199 [facility] Comment on above: Performed By: #### 2 [id number] #### [facility] [address] [place] [address] Potassium [Moles/Vol] 3.9 mmol/L Normal 3.5-5.3 [facility] Comment on above: Performed By: #### 2 [id number] #### [facility] [address] [place] [address] Sodium [Moles/Vol] 138 mmol/L Normal 135-145 [facility] Comment on above: Performed By: #### 2 [id number] #### [facility] [address] [place] [address] Urea nitrogen [Mass/Vol] 9 mg/dL Normal 5-21 [facility] Comment on above: Performed By: #### 2 300959 #### [facility] [address] [place] [address] Urea nitrogen/Creatinine [Mass ratio] 13 No Units Normal 10-20 [facility] Comment on above: Performed By: #### 2 [id number] #### [facility] [address] [place] [address] CBC w/ Auto Diffon 4 Basophils/100 WBC (Bld) 1.5 % Normal 0.0-2.0 [facility] Comment on above: Performed By: #### 2 [id number] #### [facility] [address] [place] [address] Basophils/Leukocytes Auto (Bld) [Pure # fraction] 0.1 E9/L Normal 0.0-0.2 [facility] Comment on above: Performed By: #### 2 [id number] #### [facility] [address] [place] [address] Eosinophils (Bld) [#/Vol] 0.1 E9/L Normal 0.0-0.5 [facility] Comment on above: Performed By: #### 2 [id number] #### [facility] [address] [place] [address] Eosinophils/100 WBC (Bld) 2.5 % Normal 0.0-8.0 [facility] Comment on above: Performed By: #### 2 [id number] #### [facility] [address] [place] [address] Erythrocyte distribution width (RBC) [Ratio] 13.5 % Normal 10.9-14.2 [facility] Comment on above: Performed By: #### 2 [id number] #### [facility] [address] [place] [address] Hematocrit (Bld) [Volume fraction] 43.5 % Normal 34.0-46.0 [facility] Comment on above: Performed By: #### 2 [id number] #### [facility] [address] [place] [address] Hemoglobin (Bld) [Mass/Vol] 15.2 g/dL Normal 12.0-16.0 [facility] Comment on above: Performed By: #### 2 [id number] #### [facility] [address] [place] [address] Lymphocytes (Bld) [#/Vol] 1.5 E9/L Normal 1.0-4.0 [facility] Comment on above: Performed By: #### 2 [id number] #### [facility] [address] [place] [address] Lymphocytes/100 WBC (Bld) 35.8 % Normal 14.0-50.0 [facility] Comment on above: Performed By: #### 2 023520 #### [facility] [address] [place] [address] MCH (RBC) [Entitic mass] 33.7 pg Normal 27.0-34.0 [facility] Comment on above: Performed By: #### 2 [id number] #### [facility] [address] [place] [address] MCHC (RBC) [Mass/Vol] 34.9 g/dL Normal 31.4-36.0 [facility] Comment on above: Performed By: #### 2 [id number] #### [facility] [address] [place] [address] MCV (RBC) [Entitic vol] 96.6 fL Normal 80.0-100.0 [facility] Comment on above: Performed By: #### 2 [id number] #### [facility] [address] [place] [address] Monocytes (Bld) [#/Vol] 0.4 E9/L Normal 0.2-1.0 [facility] Comment on above: Performed By: #### 2 [id number] #### [facility] [address] [place] [address] Neutrophils (Bld) [#/Vol] 2.0 E9/L Normal 2.0-7.5 [facility] Comment on above: Performed By: #### 2 117556 #### [facility] [address] [place] [address] Neutrophils/100 WBC (Bld) 50.6 % Normal 36.0-75.0 [facility] Comment on above: Performed By: #### 2 [id number] #### [facility] [address] [place] [address] Platelet 229.0 E9/L Normal 150.0-500.0 [facility] Comment on above: Performed By: #### 2 [id number] #### [facility] [address] [place] [address] Platelet mean volume (Bld) [Entitic vol] 6.9 fL Normal 6.4-10.8 [facility] Comment on above: Performed By: #### 2 [id number] #### [facility] [address] [place] [address] RBC (Bld) [#/Vol] 4.5 E12/L Normal 4.3-5.9 [facility] Comment on above: Performed By: #### 2 [id number] #### [facility] [address] [place] [address] WBC corrected for nucl RBC Auto (Bld) [#/Vol] 4.1 E9/L Normal 4.0-11.0 [facility] Comment on above: Performed By: #### 2 [id number] #### [facility] [address] [place] [address] CHEMISTRYOrdered By: SYSTEM SYSTEM on 10-10-2024 Albumin [...] MD Transcribed by: JEANINE Technologist: MARKY Hannon [facility] ED Clinical Summaryon 2023 ED Clinical Summary ED Clinical Summary [place] [address] ED Clinical Summary Person Information Name: ELLA JACOBO/[facility]_Jose E Age: 63 Years : 1960 Sex: Female Language: Djiboutian PCP: Fyl Luis MD Marital Status: Visit Id: Visit [...] 10/10/2024 18:24:51 10/10/2024 18:24:51 10/10/2024 18:24:51 ADDRESS: [address] [place] [id number] PHYS DOC NOTES: MEDICAL INFORMATION: Prescriptions Given: New Medications [id number], [address], [place] [id number], [phone] acetaminophen-hydro codone (Branson 325 mg-5 mg oral tablet) 1 Tablets [...] Back Pain, Adult Follow up: With: Address: When: Fly Luis In 3 days 10/13/2024 Comments: Call the office of your primary care doctor to arrange for follow-up within the above-stated timeframe. Follow-up with your primary care doctor about this ED visit. You should review your labs, imaging, and diagnoses from this ED visit with your primary care physician. There are occasionally non-emergent findings that require additional follow- (more content not included)... Normal [facility] ED Note-Nursingon 10-10-2024 ED Note-Nursing ED Note-Nursing Discharged patient at this time. Patient calling daughter at this time. Patient has no questions at this time about discharge information. Normal [facility] ED Note-Physicianon 10-10-20 ED Note-Physician ED Note-Physician Basic Information Time Seen: Dioni Gallardo DO. 10/10/2024 13:41 Chief Complaint pt presents to [...] legs feel weak. She was seen at [facility] for this and admitted 2 weeks ago. [...] the last few weeks. Recent stay at [facility] and had an improvement in the pain [...] day(s), # 21 tab(s), Refills(s) 0, Pharmacy: [id number], 162.5, cm, 10/10/24 13:16:00 EST, Height/Length [...] mg/2 mL (more content not included)... Normal [facility] Comment on above: Result Comment: Elec tronically Signed By: Dioni Gallardo DO\.br\Date and Time Signed: 10/10/24 18:53 EST ED Patient Summaryon 024 ED Patient Summary ED Patient Summary [place] [id number] Patient Discharge Instructions Person Information Name: ELLA JACOBO Age: 63 Years Arrival Date: 10/10/2024 13:11:31 Discharge Diagnosis: Acute on chronic back pain; Other chronic pain Primary Care Physician: Janelle POSEY, Fly Jean Baptiste Provider Information Primary Provider: Dioni Gallardo DO [employer] Worker Leader:None The exam and treatment you received in the Emergency Department were for an urgent problem and are not intended as complete care. It is important that you follow up with a doctor, nurse practitioner, or physician???s central supply assistant for ongoing care. If your symptoms become worse or you do not improve as expected and you are unable to reach your usual health care provider, you should return to the Emergency Department. We are available 24 hours a day. ELLA JACOBO has been given the following list of patient education materials, prescriptions and follow-up instructions: Follow-up Instructions: With: Address: When: Fly Luis In 3 days 10/13/2024 Comments: Call [...] opioids can be used to help relieve bxdkycxa-yj-xpmkba pain and are often prescribed following a [...] don???t i (more content not included)... Normal [facility] Extra Blueon 10-10-2024 Tube Collected Plasma Yes Invalid Interpretation Code [facility] Comment on above: Performed By: #### 1 [id number] #### [facility] [address] [place] [address] HEMATOLOGYOrdered By: SYSTEM SYSTEM on 10-10-2024 Basophils/100 [...] 10-10-2024 Albumin [Mass/Vol] 4.2 g/dL Normal 3.3-5.0 [facility] Comment on above: Performed By: #### 2 [id number] #### [facility] [address] [place] [address] Albumin/Globulin (S) [Mass conc ratio] 1.4 Normal 1.1-2.2 [facility] Comment on above: Performed By: #### 2 [id number] #### [facility] [address] [place] [address] ALP [Catalytic activity/Vol] 117 Int._Unit/L High 21-98 [facility] Comment on above: Performed By: #### 2 [id number] #### [facility] [address] [place] [address] ALT No additional P-5'-P [Catalytic activity/Vol] 14 Int._Unit/L Normal 6-46 [facility] Comment on above: Performed By: #### 2 [id number] #### [facility] [address] [place] [address] AST [Catalytic activity/Vol] 16 Int._Unit/L Normal 5-43 [facility] Comment on above: Performed By: #### 2 [id number] #### [facility] [address] [place] [address] Bilirubin [Mass/Vol] 0.6 mg/dL Normal 0.0-1.[address] [facility] Comment on above: Performed By: #### 2 [id number] #### [facility] [address] [place] [address] Bilirubin.direct [Mass/Vol] 0.1 mg/dL Normal 0.0-0.4 [facility] Comment on above: Performed By: #### 2 [id number] #### [facility] [address] [place] [address] Bilirubin.indirect [Mass or moles/Vol] 0.5 mg/dL Normal 0.1-0.9 [facility] Comment on above: Performed By: #### 2 [id number] #### [facility] [address] [place] [address] Globulin (S) [Mass/Vol] 2.9 g/dL Normal 1.4-4.0 [facility] Comment on above: Performed By: #### 2 [id number] #### [facility] [address] [place] [address] Protein [Mass/Vol] 7.1 g/dL Normal 6.0-7.8 [facility] Comment on above: Performed By: #### 2 [id number] #### [facility] [address] [place] [address] Pre-Arrival Noteon Pre-Arrival Note Pre-Arrival Note Pre-Arrival Summary Name: , JOVAN Current Date: 10/10/2024 13:12:38 EST Gender: Female Date of : Age: 63 Pre-Arrival Type: EMS ETA: 10/10/2024 13:30:00 EST Primary Care Physician: Presenting Problem: shortness of breath Pre-Arrival User: Katelyn Guerrero RN Referring Source: Location: [place] Completion Date/Time: 10/10/2024 13:00:[address] [facility] Emergency Department Pre-Hospital Report Form ___ Vital Signs: Pre-Hospital Report: Treatment in Route: Response to Treatment: Misc. Issues: Normal [facility] UA with Cult Rflxon 10-10-20 24 Bilirubin Ql (U) Negative Normal Negative [facility] Comment on above: Performed By: #### 4 [id number] #### [facility] [address] [place] [address] Clarity (U) Clear Normal Clear [facility] Comment on above: Performed By: #### 4 [id number] #### [facility] [address] [place] [address] Color (U) Light-Yellow Normal Yellow [facility] Comment on above: Result Comment: Micr oscopic readings are only performed on those samples that meet specific criteria set forth by [facility]. Performed By: #### 4 [id number] #### [facility] [address] [place] [address] Glucose Ql (U) Negative Normal Negative [facility] Comment on above: Performed By: #### 4 [id number] #### [facility] [address] [place] [address] Hemoglobin Auto test strip (U) [Mass/Vol] Negative Normal Negative [facility] Comment on above: Performed By: #### 4 [id number] #### [facility] [address] [place] [address] Ketones Auto test strip Ql (U) Negative Normal Negative [facility] Comment on above: Performed By: #### 4 [id number] #### [facility] [address] [place] [address] Leukocyte esterase Auto test strip Ql (U) Negative Normal Negative [facility] Comment on above: Performed By: #### 4 [id number] #### [facility] [address] [place] [address] Nitrite Auto test strip Ql (U) Negative Normal Negative [facility] Comment on above: Performed By: #### 4 [id number] #### [facility] [address] [place] [address] pH (U) 6.5 [pH] Invalid Interpretation Code 5.0-9.0 [facility] Comment on above: Performed By: #### 4 [id number] #### [facility] [address] [place] [address] Protein Ql (U) Negative Normal Negative [facility] Comment on above: Performed By: #### 4 [id number] #### [facility] [address] [place] [address] Specific gravity (U) [Rel density] 1.012 Invalid Interpretation Code 1.005-1.030 [facility] Comment on above: Performed By: #### 4 [id number] #### [facility] [address] [place] [address] Urobilinogen (U) [Mass/Vol] Negative Normal Negative [facility] Comment on above: Performed By: #### 4 [id number] #### [facility] [address] [place] [address] Type of Urine collection method Clean Catch Normal [facility] Comment on above: Performed By: #### 4 [id number] #### [facility] [address] [place] [address] URINALYSISOrdered By: SYSTEM SYSTEM on 10-10-2024 Bilirubin Ql (U) Negative Normal Negativemg/dL [facility] UA Auto SS Clarity (U) Clear (10/10/24 3:08 PM) Normal Clear [facility] UA Auto SS Color (U) Light-Yellow 1 (10/10/24 3:08 PM) Normal Yellow [facility] UA Auto SS Comment on above: Interpretive Data: M icroscopic readings are only performed on those samples that meet specific criteria set forth by [facility]. Glucose Ql (U) Negative Normal Negativemg/dL [facility] UA Auto SS Hemoglobin Auto test strip (U) [Mass/Vol] Negative Normal Negativemg/dL [facility] UA Aut o SS Ketones Auto test strip Ql (U) Negative Normal Negativemg/dL [facility] UA Auto SS Leukocyte esterase Auto test strip Ql (U) Negative Normal NegativeLeu/uL [facility] UA Auto SS Nitrite Auto test strip Ql (U) Negative Normal Negativemg/dL [facility] UA Auto SS pH (U) 6.5 *NA* (10/10/24 3:08 PM) Invalid Interpretation Code 5.0 - 9.0 [facility] UA Auto SS Protein Ql (U) Negative Normal Negativemg/dL [facility] UA Auto SS Specific gravity (U) [Rel density] 1.012 *NA* (10/10/24 3:08 PM) Invalid Interpretation Code 1.005 - 1.030 [facility] UA Auto SS Urobilinogen (U) [Mass/Vol] Negative Normal Negativemg/dL [facility] UA Auto SS URINALYSISOrdered By: Dioni Gallardo on 11-27-2024 UA Spec Desc Clean Catch (10/10/24 3:08 PM) Normal [facility] UA Auto SS Work Phone: eGFRon 10-10-2024 eGFR 96 mL/min/1.73 m2 Normal >=59 [facility] Comment on above: Performed By: #### 1 [id number] #### [facility] [address] [place] [address] Ambulatory Visit Summaryon 1 12-08-2023 Ambulatory Visit Summary Ambulatory Visit Summary ELLA JACOBO :1960 Visit Date:10/08/2024 Ambulatory Visit Instructions Your Diagnosis Major depressive disorder, recurrent, moderate BMI 33.0-33.9,adult Exogenous obesity Smoker Chest pain syndrome Back pain Hospital discharge follow-up HTN (hypertension), benign Your Care Team Attending Physician - Fly Luis MD Primary Care Physician - Fly Luis MD This Is Your Medications List [...] Cardiology Clinic Tuesday 1:00 PM EST With: Fly Luis MD Where: [address] [address]- Tuesday 2:30 PM EDT With: Where: [address] [address]- Medications What How Much When Why Instructions [...] By Mouth Every day Unchanged Misc Prescription (Rosangela Gautam, 5 years.) [...] aid Historica (more content not included)... Normal [facility] Family Medicine Office/Clini c Noteon 10-08-2024 Family Medicine Office/Clinic Note Family Medicine Office/Clinic Note Chief Complaint Persistent back pain and hypertension. HPI Staff Ella is a 63 year old female presenting for hospital follow up Wants a flu shot today TCM: Hospital: [facility] Admission date: 09/29/24 Discharge date: 09/30/24 Symptoms [...] tobacco smoker 1034F Depression Screening Negative 3352F [facility] External Ambulatory Referral Influenza immunization administered or [...] tobacco smoker 1034F Depression Screening Negative 3352F [facility] External Ambulatory Referral Influenza immunization administered or [...] tobacco smoker 1034F Depression Screening Negative 3352F [facility] External Ambulatory Referral Influenza immunization administered or [...] tobacco smoker 1034F Depression Screening Negative 3352F [facility] External Ambulatory Referra (more content not included)... Normal [facility] Comment on above: Result Comment: Elec tronically Signed By: Fly Luis MD\.br\Date and Time Signed: 10/08/24 15:57 EST Pre-Visit Planningon 024 Pre-Visit Planning Pre-Visit Planning -- From: Beka LY, Alesia To: Fly Luis MD; Sent: 10/05/2024 09:00:26 EST Subject: Pre-Visit Planning Due Date/Time: 10/05/2024 09:00:00 EST Caller Name: ELLA JACOBO; Caller Number: Norberto , M Hi Dr. Luis, Documentation in the medical record indicates this patient has been diagnosed as having Atypical Chest Pain. The following is also documented in the medical record: Medications- Ranexa 08/13/2024 ehhgsy-34-wral-old female with known CAD, recurrent chest discomfort, [...] [___]Unstable angina [___]Atheroscleroti c heart disease of [place] coronary artery without angina pectoris [___]Atheroscleroti c heart disease of [place] coronary artery with unstable angina pectoris [___]Atheroscleroti c heart disease of [place] coronary artery with unspecified angina pectoris [___]Refractory [...] feel free to contact me at extension [phone]. Thank you! Alesia Ireland, OSIRISN, RN, CCM, CCDS, CCDS-O CDI Roller Shop Supervisor [place] [address] P: [phone] F: [phone] [email or web address] -- From: Fly Luis MD To: Alesia Ireland RN; Sent: 10/08/2024 08:25:42 EST Subject: RE: Pre-Visit Planning Caller Name: ELLA JACOBO; Caller Number: Norberto , M Chronic chest pain syndrome on chronic antianginals. [facility] Pre-Visit Planning Pre-Visit Planning -- From: Alesia Ireland RN To: Fly Luis MD; Sent: 10/05/2024 08:56:30 EST Subject: Pre-Visit Planning Due Date/Time: 10/05/2024 08:56:00 EST Caller Name: ELLA JACOBO; Caller Number: Norberto , M Ny Dr. Luis, *Based on your response below, [...] feel free to contact me at extension [phone]. Thank you! OSIRIS FelixN, RN, CCM, CCDS, CCDS-O CDI Roller Shop Supervisor [place] [address] P: [phone] F: [phone] [email or web address] Major depressive disorder, recurrent, moderate -- From: Janelle POSEY, Fly Jean Baptiste To: Beka LY, Alesia; Sent: 10/08/2024 08:25:04 EST Subject: FW: Pre-Visit Planning Caller Name: ELLA JACOBO; Caller Number: , Normal [facility] Heart and Vascular Office/Cl inic Noteon 10-03-2024 Heart and Vascular Office/Clinic Note Heart and Vascular Office/Clinic Note Chief Complaint 3 month F/U History of Present Illness Ella is a 63 year old female with [...] Patient reports that she was in the [facility] this past weekend due to issues with [...] including and th (more content not included)... Normal [facility] Comment on above: Result Comment: Elec tronically Signed By: Byron ZHANG, Amilcar Frye\Date and Time Signed: 10/03/24 12:33 EST Provider Letteron 10-02-2024 Provider Letter Provider Letter October 02, 2024 ELLA JACOBO [address] [place] [address] TEETERS, ELLA 1960 Dear Ella, We have been trying to reach you with no success. It is important that you return our call regarding your recent hospital discharge upon receiving this letter. Also, at the time of your call, please provide us with your current information. Thank you for your prompt attention to this matter. Sincerely, Miguel JohnsonSkin Specialist [phone] [facility] Provider Letteron 08-15-2024 Provider Letter Provider Letter August 15, 2024 ELLA JACOBO [address] [place] [address] TEETERS, ELLA 1960 Dear Ella, We have been trying to reach you with no success. It is important that you return our call regarding your hospital discharge upon receiving this letter. Also, at the time of your call, please provide us with your current information. Thank you for your prompt attention to this matter. Sincerely, Alex RiveraSkin Specialist [phone] [facility] ED Note-Physicianon 08-14-20 ED Note-Physician [...] Chest pain, unspecified)Chest pain 2. CAD in [place] artery (I25.10: Atherosclerotic heart disease of [place] coronary artery without angina pectoris) 3. HTN [...] mg-0.5 mg/3 mL Soln-Inh, 3 mL, Inhalation [id number] units/mLInjection [F], 5000 unit(s), SubCutaneous qfvmpz5Ufh-EL [F], 30 mg, Oral ywmvzf5Zqe [F], 100 mg, Oral morphine 4 mg/mL Inj, 4 mg, IV Push zivo46Ypm [F], 10 mg, Oral [id number]-EH [F], 500 mg, Oral gipavk4Tix [F], 1 mg, Oral Zofran 4 mg/2 mL Injection, 4 mg, IV Push Disposition Plan Patient Discharge Condition Disposition: Admitted to the hospital Condition: Improved and stable Counseled: Patient and/or family were counseled to workup, results, treatment plan and follow-up recommendations Discharge Prescription List Prescriptions No active prescription medications Follow-up With When Contact Information Amilcar Matthews PA-C Within [address] to [address] [place] [phone] Additional Instructions: Janelle POSEY, Fly Jean Baptiste, [facility], MED Within 5 to [address] [place] [address]- Additional Instructions: Patient Education Nonspecific Chest Pain, Adult, Mywn-jo-Vwco Aspirin and Your Heart Attestation I performed [...] made to ensure accuracy, however, inadvertently computerized crematorium operator mistakes may be present. [employer] (more content not included)... Normal [facility] Comment on above: Result Comment: Elec tronically Signed By: Davey Posada PA-C\.br\Date and Time Signed: 08/13/24 19:13 EDT\.br\Electronically Co-Signed By: Ainsley Rose M.D.\.br\Date and Time Co-Signed: 08/14/24 07:20 EDT BMPon 08-13-2024 Anion gap [Moles/Vol] 11 mmol/L Normal 6-16 [facility] Comment on above: Performed By: #### 2 [id number] #### [facility] [address] [place] [address] Calcium [Mass/Vol] 8.9 mg/dL Normal 8.9-11.1 [facility] Comment on above: Performed By: #### 2 [id number] #### [facility] [address] [place] [address] Chloride [Moles/Vol] 103 mmol/L Normal 101-[address] [facility] Comment on above: Performed By: #### 2 [id number] #### [facility] [address] [place] [address] CO2 [Moles/Vol] 27 mmol/L Normal 21-31 [facility] Comment on above: Performed By: #### 2 [id number] #### [facility] [address] [place] [address] Creatinine [Mass/Vol] 0.7 mg/dL Normal 0.5-1.3 [facility] Comment on above: Performed By: #### 2 [id number] #### [facility] [address] [place] [address] Glucose [Mass/Vol] 91 mg/dL Normal 55-199 [facility] Comment on above: Performed By: #### 2 [id number] #### [facility] [address] [place] [address] Potassium [Moles/Vol] 3.9 mmol/L Normal 3.5-5.3 [facility] Comment on above: Performed By: #### 2 [id number] #### [facility] [address] [place] [address] Sodium [Moles/Vol] 137 mmol/L Normal 135-145 [facility] Comment on above: Performed By: #### 2 [id number] #### [facility] [address] [place] [address] Urea nitrogen [Mass/Vol] 12 mg/dL Normal 5-21 [facility] Comment on above: Performed By: #### 2 [id number] #### [facility] [address] [place] [address] Urea nitrogen/Creatinine [Mass ratio] 17 No Units Normal 10-20 [facility] Comment on above: Performed By: #### 2 [id number] #### [facility] [address] [place] [address] CBC w/ Auto Diffon 4 Basophils/100 WBC (Bld) 0.9 % Normal 0.0-2.0 [facility] Comment on above: Performed By: #### 2 [id number] #### [facility] [address] [place] [address] Basophils/Leukocytes Auto (Bld) [Pure # fraction] 0.0 E9/L Normal 0.0-0.2 [facility] Comment on above: Performed By: #### 2 [id number] #### [facility] [address] [place] [address] Eosinophils (Bld) [#/Vol] 0.1 E9/L Normal 0.0-0.5 [facility] Comment on above: Performed By: #### 2 [id number] #### [facility] [address] [place] [address] Eosinophils/100 WBC (Bld) 2.3 % Normal 0.0-8.0 [facility] Comment on above: Performed By: #### 2 [id number] #### [facility] [address] [place] [address] Erythrocyte distribution width (RBC) [Ratio] 12.6 % Normal 10.9-14.2 [facility] Comment on above: Performed By: #### 2 [id number] #### [facility] [address] [place] [address] Hematocrit (Bld) [Volume fraction] 42.0 % Normal 34.0-46.0 [facility] Comment on above: Performed By: #### 2 [id number] #### [facility] [address] [place] [address] Hemoglobin (Bld) [Mass/Vol] 15.3 g/dL Normal 12.0-16.0 [facility] Comment on above: Performed By: #### 2 [id number] #### [facility] [address] [place] [address] Lymphocytes (Bld) [#/Vol] 1.6 E9/L Normal 1.0-4.0 [facility] Comment on above: Performed By: #### 2 [id number] #### [facility] [address] [place] [address] Lymphocytes/100 WBC (Bld) 31.9 % Normal 14.0-50.0 [facility] Comment on above: Performed By: #### 2 [id number] #### [facility] [address] [place] [address] MCH (RBC) [Entitic mass] 34.7 pg High 27.0-34.0 [facility] Comment on above: Performed By: #### 2 [id number] #### [facility] [address] [place] [address] MCHC (RBC) [Mass/Vol] 36.5 g/dL High 31.4-36.0 [facility] Comment on above: Performed By: #### 2 [id number] #### [facility] [address] [place] [address] MCV (RBC) [Entitic vol] 95.1 fL Normal 80.0-100.0 [facility] Comment on above: Performed By: #### 2 [id number] #### [facility] [facility] [address] [place] [address] Monocytes (Bld) [#/Vol] 0.5 E9/L Normal 0.2-1.0 [facility] Comment on above: Performed By: #### 2 [id number] #### [facility] [address] [place] [address] Neutrophils (Bld) [#/Vol] 2.7 E9/L Normal 2.0-7.5 [facility] Comment on above: Performed By: #### 2 [id number] #### [facility] [address] [place] [address] Neutrophils/100 WBC (Bld) 54.0 % Normal 36.0-75.0 [facility] Comment on above: Performed By: #### 2 [id number] #### [facility] [address] [place] [address] Platelet 198.0 E9/L Normal 150.0-500.0 [facility] Comment on above: Performed By: #### 2 [id number] #### [facility] [address] [place] [address] Platelet mean volume (Bld) [Entitic vol] 6.5 fL Normal 6.4-10.8 [facility] Comment on above: Performed By: #### 2 [id number] #### [facility] [address] [place] [address] RBC (Bld) [#/Vol] 4.4 E12/L Normal 4.3-5.9 [facility] Comment on above: Performed By: #### 2 [id number] #### [facility] [address] [place] [address] WBC corrected for nucl RBC Auto (Bld) [#/Vol] 4.9 E9/L Normal 4.0-11.0 [facility] Comment on above: Performed By: #### 2 [id number] #### [facility] [address] [place] [address] CHEMISTRYOrdered By: SYSTEM SYSTEM on 08-13-2024 Troponin [...] High Sensitivity Troponin I Instructions For Use, [place], June 2018) Troponin HS 4.70 pg/mL Low 10.10 - 27.10 pg/mL [facility] Comment on above: Interpretive Data: T he 95% CI (Confidence Interval) PPV (Positive Predictive Value) for myocardial infarction in females is 38 pg/mL, in males 51 pg/mL. The results should be used in conjunction with clinical conditions of myocardial infarction. (Access High Sensitivity Troponin I Instructions For Use, [place], June 2018) Anion gap [Moles/Vol] 11 mmol/L [...] High Sensitivity Troponin I Instructions For Use, [place], June 2018) Urea nitrogen [Mass/Vol] 12 mg/dL Normal 5 - 21 mg/dL [facility] Urea nitrogen/Creatinine [Mass ratio] 17 mg/mg Normal 10 - 20 [facility] COAGULATIONOrdered By: Pepito Irvin on 08-13-2024 aPTT Coag (PPP) [Time] 33.2 s Normal 25.1 - 36.5 second(s) [facility] Auto Coag Comment on above: Interpretive Data: [...] the same coagulation reagent and instrumentation as [facility]. Currently there are no coagulation studies available worldwide for children to 14 days, and no normal ranges. Heparin therapeutic range (represented by Anti-Factor Xa activity of 0.2 - 0.4 U/mL) corresponds to PTT of 56.6 - 109.0 sec. INR Coag (PPP) [Relative time] 1.04 {INR} Invalid Interpretation Code [facility] Comment on above: Interpretive Data: I NR results are specifically intended to assess patients stabilized on long-term Anticoagulation therapy suggested INR s Less Intensive Anticoagulation 2.0 3.0 Conventional Range 3.0 4.5 PT Coag (PPP) [Time] 11.6 s Normal 9.4 - 1 2.5 second(s) [facility] Auto Coag Comment on above: Interpretive Data: [...] the same coagulation reagent and instrumentation as [facility]. Currently there are no coagulation studies available worldwide for children to 14 days, and no normal ranges. ED Clinical Summaryon 2023 ED Clinical Summary ED Clinical Summary [address] [address] ED Clinical Summary Person Information Name: ELLA JACOBO/Tatiana Age: 63 Years : 1960 Sex: Female Language: Djiboutian PCP: Fly Luis MD Marital Status: Visit Id: Visit Reason: Chest pain; CP Speciality: Acuity: 2 Enc Type: Observation Med Service: Medical Arrival: 08/13/2024 08:49:35 Discharge: LOS: 000 05:53 Checkin: 08/13/2024 08:49:35 Checkout: 08/13/2024 14:42:51 Dispo Type: Admitted as IP to this [facility] EVENTS: Event Name Event Status Request [...] 08/13/2024 14:42:52 08/13/2024 14:42:52 08/13/2024 14:42:52 ADDRESS: [facility] [address] [address] [facility] [phone] PHYS DOC NOTES: MEDICAL INFORMATION: Prescriptions Given: [...] Tablets By Mouth every day. Refills: 2. [facility] [place] INFORMATION: Instructions: (more content not included)... Normal [facility] ED Patient Education Noteon 08-13-2024 ED Patient Education Note ED Patient Education Note Normal [facility] ED Patient Summaryon 024 ED Patient Summary ED Patient Summary [place] [id number] Patient Discharge Instructions Person Information Name: ELLA JACOBO Age: 63 Years Arrival Date: 08/13/2024 08:49:35 Discharge Diagnosis: 1:Chest pain; 2:CAD in [place] artery; 3:HTN (hypertension), benign; 4:COPD (chronic obstructive pulmonary disease); 5:Anxiety and depression; 6:Polyneuropathy; 7:RLS (restless legs syndrome); 8:Current smoker; Depression, unspecified Primary Care Physician: Fly Luis MD Provider Information Primary Provider: Ainsley Rose M.D. [employer] Worker Leader:Davey Posada PA-C The exam and treatment you received in the Emergency Department were for an urgent problem and are not intended as complete care. It is important that you follow up with a doctor, nurse practitioner, or physician?s central supply assistant for ongoing care. If your symptoms become worse or you do not improve as expected and you are unable to reach your usual health care provider, you should return to the Emergency Department. We are available 24 hours a day. ELLA JACOBO has been given the following list [...] opioids can be used to help relieve ixpwlnuj-vm-llkuxg pain and are often prescribed following a [...] be struggling with addiction, tell your health caregivers homecare and ask for g (more content not included)... Normal [facility] HEMATOLOGYOrdered By: SYSTEM SYSTEM on 08-13-2024 Basophils/100 [...] 08-13-2024 Inpatient Patient Summary Inpatient Patient Summary DREDARLINELLA :1960 Visit Date:08/13/2024 Inpatient Discharge Instructions Your Care Team Admitting Physician - Eligio Lopez III, DO Consulting Physician - Joyce POSEY, Tiffany Chavarria [facility] Cardio, XXXX Reason for Your Visit chest pains Your Diagnosis Chest pain, Chest pain CAD in [place] artery HTN (hypertension), benign COPD (chronic obstructive [...] Cardiology Clinic Tuesday 3:30 PM EST With: Fly Luis MD Where: [address] [address]- Tuesday 2:30 PM EDT With: Where: [address] [address]- New Follow Up Appointments after Discharge Follow Up with Amilcar Matthews PA-C When: Within 1 to 2 weeks Where: [facility] [address]- [phone] Follow Up with Fly Luis MD, [facility] When: Within 5 to 7 days Where: [address] [place] [address]- Medications What How Much When Why Instructions [...] Tab) 1 Tablets By Mouth Every day 9/31 AM Unchanged Misc Prescription (Handicap Lotus, 5 years.) [...] ropinirole (ropiniro (more content not included)... Normal [facility] PT & PTTon 08-13-2024 aPTT Coag (PPP) [Time] 33.2 second(s) Normal 25.1-36.5 [facility] Comment on above: Result Comment: Para meter [...] the same coagulation reagent and instrumentation as [facility]. Currently there are no coagulation studies available worldwide for children to 14 days, and no normal ranges. Heparin therapeutic range (represented by Anti-Factor Xa activity of 0.2 - 0.4 U/mL) corresponds to PTT of 56.6 - 109.0 sec. Performed By: #### 1 [id number] #### [facility] [address] [place] [address] INR Coag (PPP) [Relative time] 1.04 {INR} Invalid Interpretation Code [facility] Comment on above: Result Comment: INR results are specifically intended to assess patients stabilized on long-term Anticoagulation therapy suggested INR?s ?Less Intensive Anticoagulation? 2.0 ? 3.0 Conventional Range 3.0 ? 4.5 Performed By: #### 1 [id number] #### [facility] [address] [place] [address] PT Coag (PPP) [Time] 11.6 second(s) Normal 9.4-12.5 [facility] Comment on above: Result Comment: 15 d [...] the same coagulation reagent and instrumentation as [facility]. Currently there are no coagulation studies available worldwide for children to 14 days, and no normal ranges. Performed By: #### 1 [id number] #### [facility] [address] [place] [address] Pre-Arrival Noteon 4 Pre-Arrival Note Pre-Arrival Note Pre-Arrival Summary Name: , Current Date: 08/13/2024 08:55:19 EDT Gender: Female Date of : Age: 63 Pre-Arrival Type: EMS ETA: 08/13/2024 09:05:00 EDT Primary Care Physician: Presenting Problem: cp Pre-Arrival User: Silvino Jones Referring Source: Location: [place] Completion Date/Time: 08/13/2024 08:35:[address] [facility] Emergency Department Pre-Hospital Report Form ___ Vital Signs: Pre-Hospital Report: Treatment in Route: Response to Treatment: Misc. Issues: Normal [facility] Troponinon 08-13-2024 Troponin HS 6.30 pg/mL Low 10.10-27.10 [facility] Comment on above: Result Comment: The 95% CI (Confidence Interval) PPV (Positive Predictive Value) for myocardial infarction in females is 38 pg/mL, in males 51 pg/mL. The results should be used in conjunction with clinical conditions of myocardial infarction. (Access High Sensitivity Troponin I Instructions For Use, [place], June 2018) Performed By: #### 2 [id number] ####[facility] [address] [place] [address] Troponin 0 Hr.on 08-13-2024 Troponin HS 4.60 pg/mL Low 10.10-27.10 [facility] Comment on above: Result Comment: The 95% CI (Confidence Interval) PPV (Positive Predictive Value) for myocardial infarction in females is 38 pg/mL, in males 51 pg/mL. The results should be used in conjunction with clinical conditions of myocardial infarction. (Access High Sensitivity Troponin I Instructions For Use, [place], June 2018) Performed By: #### 1 [id number] #### [facility] [address] [place] [address] Troponin 1 Hr.on 08-13-2024 Troponin HS 4.70 pg/mL Low 10.10-27.10 [facility] Comment on above: Result Comment: The 95% CI (Confidence Interval) PPV (Positive Predictive Value) for myocardial infarction in females is 38 pg/mL, in males 51 pg/mL. The results should be used in conjunction with clinical conditions of myocardial infarction. (Access High Sensitivity Troponin I Instructions For Use, [place] 2018) Performed By: #### 1 [id number] #### [facility] [address] [place] [address] XR Chest Single Viewon 08-13 XR Chest [...] mGy = na DAP = na Normal [facility] eGFRon 08-13-2024 eGFR 96 mL/min/1.73 m2 Normal >=59 [facility] Comment on above: Performed By: #### 1 [id number] #### [facility] [address] [place] [address] Heart and Vascular Office/Cl inic Noteon 07-04-2024 Heart and Vascular Office/Clinic Note Heart and Vascular Office/Clinic Note Chief Complaint 1 mo f/u hx copd, stemi, cad, htn History of Present Illness Ella is a 63 year old female with [...] patient will additionally be counseled by the [facility] [employer] team and in follow-up. CAD: DAPT, beta-tamika, [...] or concerning lesions Assessment/Plan 1. CAD in [place] artery (I25.10: Atherosclerotic heart disease of [place] coronary artery without angina pectoris) (more content not included)... Normal [facility] Comment on above: Result Comment: Elec tronically Signed By: Amilcar Matthews PA-C\.br\Date and Time Signed: 07/04/24 13:52 EDT\.br\Electronically Co-Signed By: Jewell Salter\.br\Date and Time Co-Signed: 07/04/24 13:30 EDT Ambulatory Visit Summaryon 0 06-14-2024 Ambulatory Visit Summary Ambulatory Visit Summary ELLA JACOBO :1960 Visit Date:06/12/2024 Ambulatory Visit Instructions Your Diagnosis Encounter for annual wellness exam in Medicare patient Atherosclerosis of aorta COPD (chronic obstructive pulmonary disease) Major depressive disorder, recurrent, mild Anxiety and depression HTN (hypertension), benign Current smoker Breast cancer screening by mammogram Ovarian failure due to menopause Your Care Team Attending Physician - Fly Luis MD Primary Care Physician - Fly Luis MD This Is Your Medications List [...] Density Tuesday 1:20 PM EDT With: Where: [facility] [address] [address]- 2023 2:30 PM EDT With: Byron ZHANG, Amilcar Abbott Where: Cardiology Clinic Tuesday 3:30 PM EST With: Fly Luis MD Where: [address] [address]- Tuesday 2:30 PM EDT With: Where: [address] [address]- You Need to Complete the Following BD [...] Mouth Every day Unchanged Misc Prescription (Handicap Placard, 5 years.) [...] mg Tab-ER) (more content not included)... Normal [facility] Family Medicine Office/Clini c Noteon 06-14-2024 Family [...] Primary Pain Location : Back Erin Chua - 06/12/2024 11:11 EDT Hearing and Vision Screening FT FT Whisper Test Comments : no deficits Vision Screen Comments : wears corretive lens. [facility]. Erin Chua - 06/12/2024 11:11 EDT Advance Directive FT Advance Directive : Yes Type of Advance Directive : Living will, Medical durable power of securities attorney Location of Advance Directive : Family [...] 07/13/2023 15:50 EDT - Diana Flores LPN stent placement ; Last Reviewed Dt/Tm: 06/12/2024 [...] Moderately Erin Chua - 06/12/2024 14:02 EDT Misc Health Risks Grid Trouble ea (more content not included)... Normal [facility] Comment on above: Result Comment: Elec tronically Signed By: Janelle POSEY, Fly Jean Baptiste\.br\Date and Time Signed: 06/14/24 13:58 EDT\.br\Electronically Co-Signed By: Erin Chua\.br\Date and Time Co-Signed: 06/13/24 10:13 EDT CHEMISTRYOrdered By: SYSTEM SYSTEM on 05-16-2024 Cholesterol [...] [Mass/Vol] 44 mg/dL Normal <=149mg/dL [facility] Chem BMPon 05-15-2024 Anion gap [Moles/Vol] 11 mmol/L Normal 6-16 [facility] Comment on above: Performed By: #### 2 [id number] #### [facility] [address] [place] [address] Calcium [Mass/Vol] 9.1 mg/dL Normal 8.9-11.1 [facility] Comment on above: Performed By: #### 2 [id number] #### [facility] [address] [place] [address] Chloride [Moles/Vol] 106 mmol/L Normal 101-[address] [facility] Comment on above: Performed By: #### 2 [id number] #### [facility] [address] [place] [address] CO2 [Moles/Vol] 27 mmol/L Normal 21-31 [facility] Comment on above: Performed By: #### 2 [id number] #### [facility] [address] [place] [address] Creatinine [Mass/Vol] 0.5 mg/dL Normal 0.5-1.3 [facility] Comment on above: Performed By: #### 2 [id number] #### [facility] [address] [place] [address] Glucose [Mass/Vol] 100 mg/dL Normal 55-199 [facility] Comment on above: Performed By: #### 2 [id number] #### [facility] [address] [place] [address] Potassium [Moles/Vol] 3.7 mmol/L Normal 3.5-5.3 [facility] Comment on above: Performed By: #### 2 [id number] #### [facility] [address] [place] [address] Sodium [Moles/Vol] 140 mmol/L Normal 135-145 [facility] Comment on above: Performed By: #### 2 [id number] #### [facility] [address] [place] [address] Urea nitrogen [Mass/Vol] 11 mg/dL Normal 5-21 [facility] Comment on above: Performed By: #### 2 [id number] #### [facility] [address] [place] [address] Urea nitrogen/Creatinine [Mass ratio] 22 No Units High 10-20 [facility] Comment on above: Performed By: #### 2 [id number] #### [facility] [address] [place] [address] CBC w/ Auto Diffon 4 Basophils/100 WBC (Bld) 0.8 % Normal 0.0-2.0 [facility] Comment on above: Performed By: #### 2 [id number] #### [facility] [address] [place] [address] Basophils/Leukocytes Auto (Bld) [Pure # fraction] 0.0 E9/L Normal 0.0-0.2 [facility] Comment on above: Performed By: #### 2 [id number] #### [facility] [address] [place] [address] Eosinophils (Bld) [#/Vol] 0.1 E9/L Normal 0.0-0.5 [facility] Comment on above: Performed By: #### 2 [id number] #### [facility] [address] [place] [address] Eosinophils/100 WBC (Bld) 2.6 % Normal 0.0-8.0 [facility] Comment on above: Performed By: #### 2 [id number] #### [facility] [address] [place] [address] Erythrocyte distribution width (RBC) [Ratio] 13.7 % Normal 10.9-14.2 [facility] Comment on above: Performed By: #### 2 [id number] #### [facility] [address] [place] [address] Hematocrit (Bld) [Volume fraction] 43.6 % Normal 34.0-46.0 [facility] Comment on above: Performed By: #### 2 [id number] #### [facility] [address] [place] [address] Hemoglobin (Bld) [Mass/Vol] 15.4 g/dL Normal 12.0-16.0 [facility] Comment on above: Performed By: #### 2 [id number] #### [facility] [address] [place] [address] Lymphocytes (Bld) [#/Vol] 1.7 E9/L Normal 1.0-4.0 [facility] Comment on above: Performed By: #### 2 [id number] #### [facility] [address] [place] [address] Lymphocytes/100 WBC (Bld) 33.2 % Normal 14.0-50.0 [facility] Comment on above: Performed By: #### 2 188921 #### [facility] [address] [place] [address] MCH (RBC) [Entitic mass] 33.9 pg Normal 27.0-34.0 [facility] Comment on above: Performed By: #### 2 [id number] #### [facility] [address] [place] [address] MCHC (RBC) [Mass/Vol] 35.4 g/dL Normal 31.4-36.0 [facility] Comment on above: Performed By: #### 2 [id number] #### [facility] [address] [place] [address] MCV (RBC) [Entitic vol] 95.8 fL Normal 80.0-100.0 [facility] Comment on above: Performed By: #### 2 194497 #### [facility] [address] [place] [address] Monocytes (Bld) [#/Vol] 0.5 E9/L Normal 0.2-1.0 [facility] Comment on above: Performed By: #### 2 [id number] #### [facility] [address] [place] [address] Neutrophils (Bld) [#/Vol] 2.8 E9/L Normal 2.0-7.5 [facility] Comment on above: Performed By: #### 2 [id number] #### [facility] [address] [place] [address] Neutrophils/100 WBC (Bld) 54.4 % Normal 36.0-75.0 [facility] Comment on above: Performed By: #### 2 [id number] #### [facility] [address] [place] [address] Platelet 216.0 E9/L Normal 150.0-500.0 [facility] Comment on above: Performed By: #### 2 [id number] #### [facility] [address] [place] [address] Platelet mean volume (Bld) [Entitic vol] 7.0 fL Normal 6.4-10.8 [facility] Comment on above: Performed By: #### 2 [id number] #### [facility] [address] [place] [address] RBC (Bld) [#/Vol] 4.6 E12/L Normal 4.3-5.9 [facility] Comment on above: Performed By: #### 2 [id number] #### [facility] [address] [place] [address] WBC corrected for nucl RBC Auto (Bld) [#/Vol] 5.2 E9/L Normal 4.0-11.0 [facility] Comment on above: Performed By: #### 2 [id number] #### [facility] [address] [place] [address] CHEMISTRYOrdered By: Jose Lopez on 05-15-2024 Troponin [...] High Sensitivity Troponin I Instructions For Use, [place], June 2018) CHEMISTRYOrdered By: SYSTEM SYSTEM on [...] High Sensitivity Troponin I Instructions For Use, [place], June 2018) Troponin HS 5.80 pg/mL Low 10.10 - 27.10 pg/mL [facility] Comment on above: Interpretive Data: T he 95% CI (Confidence Interval) PPV (Positive Predictive Value) for myocardial infarction in females is 38 pg/mL, in males 51 pg/mL. The results should be used in conjunction with clinical conditions of myocardial infarction. (Access High Sensitivity Troponin I Instructions For Use, [place], June 2018) Anion gap [Moles/Vol] 11 mmol/L [...] 33.1 s Normal 25.1 - 36.5 second(s) [facility] Auto Coag Comment on above: Interpretive Data: [...] the same coagulation reagent and instrumentation as [facility]. Currently there are no coagulation studies available worldwide for children to 14 days, and no normal ranges. Heparin therapeutic range (represented by Anti-Factor Xa activity of 0.2 - 0.4 U/mL) corresponds to PTT of 56.6 - 109.0 sec. INR Coag (PPP) [Relative time] 0.90 {INR} Invalid Interpretation Code [facility] Comment on above: Interpretive Data: I NR results are specifically intended to assess patients stabilized on long-term Anticoagulation therapy suggested INR s Less Intensive Anticoagulation 2.0 3.0 Conventional Range 3.0 4.5 PT Coag (PPP) [Time] 10.1 s Normal 9.4 - 1 2.5 second(s) [facility] Comment on above: Interpretive Data: 1 5 days - 4 weeks 1 - 5 months 6 -11 months 1-5 years 6-10 years 11 -17 years Mean: 11.2 (9.5-12.6) Mean: 11.0 (9.7-12.8) Mean: 11.0 (9.8-13.0) Mean: 11.3 (9.9-13.4) Mean: 11.7 (10.0-14.6) Mean: 11.8 (10.0 - 14.1) Pediatric Reference ranges were obtained from a study by ivet Lnudberg al. prepared from 1437 samples obtained at 7 different centers using the same coagulation reagent and instrumentation as [facility]. Currently there are no coagulation studies available worldwide for children to 14 days, and no normal ranges. ED Clinical Summaryon 2023 ED Clinical Summary ED Clinical Summary [place] [address] ED Clinical Summary Person Information Name: ELLA JACOBO/[facility] Age: 63 Years : 1960 Sex: Female Language: Djiboutian PCP: Fly Luis MD Marital Status: Visit Id: Visit Reason: Shortness of breath; Chest pain; CHEST PAIN Speciality: Acuity: 2 Enc Type: Observation Med Service: Emergency Arrival: 05/15/2024 13:15:09 Discharge: LOS: 000 02:49 Checkin: 05/15/2024 13:15:09 Checkout: 05/15/2024 16:04:14 Dispo Type: Admitted as IP to this Hosp EVENTS: Event Name Event Status Request Date/Time [...] 05/15/2024 16:03:22 RT Request 05/15/2024 16:03:22 ADDRESS: [address] [place] [id number] PHYS DOC NOTES: MEDICAL INFORMATION: Prescriptions Given: [...] 10:On deep vein thrombosis (DVT) prophylaxis Normal [facility] ED Note-Physicianon 05-15-20 ED Note-Physician ED Note-Physician [...] Diagnosis: [] MDM Data External documents reviewed: [] My EKG [...] artery disease) (I25.10: Atherosclerotic heart disease of [place] coronary artery without angina pectoris) 7. History of ST elevation myocardial infarction (STEMI) (I25.2: Old myocardial infarction) 8. Tobacco dependence (F17.200: Nicotine dependence, unspecified, uncomplicated) 9. Obese (E66.9: Obesity, unspecified) Orders: aspirin, 162 mg = 2 tab(s), Tab-Chew, Oral, Once, Stop date 05/15/24 13:24:00 EDT, STAT, Start (more content not included)... Normal [facility] Comment on above: Result Comment: Elec tronically Signed By: Milton Brooks, Ainsley Thornton\.br\Date and Time Signed: 05/15/24 15:55 EDT ED Patient Education Noteon 05-15-2024 ED Patient Education Note ED Patient Education Note Normal [facility] ED Patient Summaryon 024 ED Patient Summary ED Patient Summary [place] [id number] Patient Discharge Instructions Person Information Name: ELLA JACOBO Age: 63 Years Arrival Date: 05/15/2024 13:15:09 Discharge Diagnosis: 1:Chest pain; 2:Dizziness; 3:HTN (hypertension), benign; 4:RLS (restless legs syndrome); 5:COPD (chronic obstructive pulmonary disease); 6:CAD (coronary artery disease); 7:History of ST elevation myocardial infarction (STEMI); 8:Tobacco dependence; 9:Obese; 10:On deep vein thrombosis (DVT) prophylaxis Primary Care Physician: Ross MD, Fly E. Provider Information Primary Provider: Ainsley Rose M.D. Advanced Fabric Worker Leader:None The exam and treatment you received in the Emergency Department were for an urgent problem and are not intended as complete care. It is important that you follow up with a doctor, nurse practitioner, or physician?s central supply assistant for ongoing care. If your symptoms become worse or you do not improve as expected and you are unable to reach your usual health care provider, you should return to the Emergency Department. We are available 24 hours a day. ELLA JACOBO has been given the following list [...] opioids can be used to help relieve ghfqbhxj-kj-coeflv pain and are often prescribed following a [...] with addiction (more content not included)... Normal [facility] EMS Documentationon 05-15-20 EMS Documentation Report Please click on link to see report Normal [facility] Comment on above: Result Comment: Miss ing [...] 05-15-2024 Magnesium [Mass/Vol] 1.9 mg/dL Normal 1.3-2.4 [facility] Comment on above: Performed By: #### 2 [id number] #### [facility] [address] [place] [address] PT & PTTon 05-15-2024 aPTT Coag (PPP) [Time] 33.1 second(s) Normal 25.1-36.5 [facility] Comment on above: Result Comment: Para meter [...] the same coagulation reagent and instrumentation as [facility]. Currently there are no coagulation studies available worldwide for children to 14 days, and no normal ranges. Heparin therapeutic range (represented by Anti-Factor Xa activity of 0.2 - 0.4 U/mL) corresponds to PTT of 56.6 - 109.0 sec. Performed By: #### 1 [id number] #### [facility] [address] [place] [address] INR Coag (PPP) [Relative time] 0.90 {INR} Invalid Interpretation Code [facility] Comment on above: Result Comment: INR results are specifically intended to assess patients stabilized on long-term Anticoagulation therapy suggested INR?s ?Less Intensive Anticoagulation? 2.0 ? 3.0 Conventional Range 3.0 ? 4.5 Performed By: #### 1 [id number] #### [facility] [address] [place] [address] PT Coag (PPP) [Time] 10.1 second(s) Normal 9.4-12.5 [facility] Comment on above: Result Comment: 15 d [...] the same coagulation reagent and instrumentation as [facility]. Currently there are no coagulation studies available worldwide for children to 14 days, and no normal ranges. Performed By: #### 1 [id number] #### [facility] [address] [place] [address] Pre-Arrival Noteon Pre-Arrival Note Pre-Arrival Note Pre-Arrival Summary Name: , Current Date: 05/15/2024 13:15:32 EDT Gender: Date of : Age: Pre-Arrival Type: EMS ETA: 05/15/2024 13:43:00 EDT Primary Care Physician: Presenting Problem: chest pain Pre-Arrival User: Sully Arenas RN Referring Source: Location: [place] Completion Date/Time: 05/15/2024 13:13:[address] [facility] Emergency Department Pre-Hospital Report Form ___ Vital Signs: 3 nitro given- pain better Pre-Hospital Report: Treatment in Route: Response to Treatment: Misc. Issues: Normal [facility] Troponin 0 Hr.on 05-15-2024 Troponin HS 5.70 pg/mL Low 10.10-27.10 [facility] Comment on above: Result Comment: The 95% CI (Confidence Interval) PPV (Positive Predictive Value) for myocardial infarction in females is 38 pg/mL, in males 51 pg/mL. The results should be used in conjunction with clinical conditions of myocardial infarction. (Access High Sensitivity Troponin I Instructions For Use, [place]June 2018) Performed By: #### 1 [id number] #### [facility] [address] [place] [address] Troponin 1 Hr.on 05-15-2024 Troponin HS 5.80 pg/mL Low 10.10-27.10 [facility] Comment on above: Order Comment: 1430 Result Comment: The 95% CI (Confidence Interval) PPV (Positive Predictive Value) for myocardial infarction in females is 38 pg/mL, in males 51 pg/mL. The results should be used in conjunction with clinical conditions of myocardial infarction. (Access High Sensitivity Troponin I Instructions For Use, [place] 2018) Performed By: #### 1 [id number] #### [facility] [address] [place] [address] Troponin 3 Hr.on 05-15-2024 Troponin HS 6.30 pg/mL Low 10.10-27.10 [facility] Comment on above: Result Comment: The 95% CI (Confidence Interval) PPV (Positive Predictive Value) for myocardial infarction in females is 38 pg/mL, in males 51 pg/mL. The results should be used in conjunction with clinical conditions of myocardial infarction. (Access High Sensitivity Troponin I Instructions For Use, [place] 2018) Performed By: #### 1 [id number] #### [facility] [address] [place] [address] Troponin 6 Hr.on 05-15-2024 Troponin HS 5.70 pg/mL Low 10.10-27.10 [facility] Comment on above: Result Comment: The 95% CI (Confidence Interval) PPV (Positive Predictive Value) for myocardial infarction in females is 38 pg/mL, in males 51 pg/mL. The results should be used in conjunction with clinical conditions of myocardial infarction. (Access High Sensitivity Troponin I Instructions For Use, [place] 2018) Performed By: #### 1 [id number] #### [facility] [address] [place] [address] XR Chest Single Viewon 05-15 XR Chest [...] Jean Baptiste MD Transcribed by: JEANINE Technologist: MILKA Technical Comments Radiation Dose: Ka,r in mGy = na DAP = na Normal [facility] eGFRon 05-15-2024 eGFR 104 mL/min/1.73 m2 Normal >=59 [facility] Comment on above: Order Comment: Order added by Discern Expert. Performed By: #### 1 [id number] #### [facility] [address] [place] [address] ECG 12-Leadon 03-29-2024 ECG 12-Lead [id number] 54#1.00TIFF Normal [facility] ED Note-Physicianon 03-29-20 ED Note-Physician [id number] 5#1.00TIFF Normal [facility] RAD - MISCon 03-29-2024 RAD - MISC [id number] A9#1.00TIFF Normal [facility] Provider Letteron 03-28-2024 Provider Letter March 28, 2024 [place] [address] : 1960 Dear Ella , We have been trying to reach [...] attention to this matter. Sincerely, Family Medicine [place] [id number] [place] [address] [facility] Consultation Noteon 03-09-20 Consultation Note [id number] BF#1.00TIFF [facility] Consultation Note [id number] 88#1.00TIFF [facility] Outside Recordson 03-08-2024 Outside Records [id number] 304#1.00TIFF [facility] Heart and Vascular Office/Cl inic Noteon 02-02-2024 Heart and Vascular Office/Clinic Note Chief Complaint patient here for 3 month f/u History of Present Illness Ella Jacobo is a 63-year-old female who presents [...] with voice recognition artificial intelligence software, specifically Visual[employer], Hipt[employer] and or [employer]. Substitutions may have occurred due to the inherent limitations of voice recognition and artificial intelligence software. Documentation services were performed after patient or guardian consented to allow [employer] to record this visit. DESTINY retail performance specialist and provider reviewed before signing. DESTINY: [...] tab(s), SubLi (more content not included)... Normal [facility] Comment on above: Result Comment: Elec tronically Signed By: Joyce POSEY, Tiffany Chavarria\.br\Date and Time Signed: 02/02/24 10:55 EDT\.br\Electronically Co-Signed By: Soren Casillas.br\Date and Time Co-Signed: 01/06/24 15:48 EST Physician Orderon 01-09-2024 Physician Order [id number] 239#1.00TIFF Normal [facility] RAD - CT Reporton 01-05-2024 RAD - CT Report [id number] 09#1.00TIFF Normal [facility] Consultation Noteon 12-08-19 Consultation Note [id number] C1#1.00TIFF Normal [facility] Heart and Vascular Office/Cl inic Noteon 12-08-2023 Heart and Vascular Office/Clinic Note Chief Complaint c/o SOB - chest pain 01/21 - [facility] 11/20/23 dr thought pt had URI ,also thought sob was from Brilinta History of Present Illness Ella Jacobo is a 63-year-old female who presents today for a follow-up evaluation. She is accompanied by an adult female. The patient has been experiencing dyspnea, potentially linked to her Brilinta medication. Her dyspnea has improved, particularly following the placement of her 2nd and 3rd stents. Her incoming freight clerk expresses a concern about potential hypotension. The [...] was prescribed a new inhaler by Dr. Osbrone(Hermelindo?) on 11/30/2023. The prescribed usage is 2 inhalations in the morning and 2 in the evening. She was diagnosed with an upper respiratory infection during her visit to the emergency room at [facility]. The patient has an appointment scheduled with [...] normal psychiatric thoughts. Assessment/Plan 1. 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 An unsuccessful crossing by [...] follow up in a few months in [place]. We will keep her previous appointment in 12/2023. 2. Current smoker (F17.200: Nicotine dependence, unspecified, uncomplicated) We strongly recommend to quit tobacco use. (more content not included)... Normal [facility] Comment on above: Result Comment: Elec tronically Signed By: Joyce POSEY, Tiffany Chavarria\.br\Date and Time Signed: 12/08/23 06:46 EST\.br\Electronically Co-Signed By: Soren Casillas\.br\Date and Time Co-Signed: 12/01/23 17:27 EST Consent for Treatmenton 11-14 Consent for Treatment [id number] 71#1.00TIFF Normal [facility] Outside EDon 12-01-2023 Outside ED [id number] 161#1.00TIFF Normal [facility] Outside Labson 12-01-2023 Outside Labs [id number] 997#1.00TIFF [facility] Outside Operativeon 12-01-19 Outside Operative [id number] 636#1.00TIFF [facility] Outside Radiologyon 12-01-19 Outside Radiology [id number]. [id number] 641#1.00TIFF Normal [facility] Physician Orderon 12-01-2023 Physician Order [id number] 650#1.00TIFF Normal [facility] ED Note-Physicianon 11-02-20 ED Note-Physician [id number] 80#1.00TIFF Normal [facility] RAD - MISCon 11-02-2023 RAD - MISC [id number] BE#1.00TIFF Normal [facility] Prescriptions/Work Noteson 12-28-2022 Prescriptions/Work Notes [id number] 541#1.00TIFF Normal [facility] Activated clotting timeon ACT Coag (Bld) 286 s High 89-169 [facility] Comment on above: Result Comment: Targ et ACT range will vary based on the patient population, clinical status, and surgical intervention occurring. Performed By: #### 3 184-9 #### ANDREE TONY ([id number]) [facility] ([facility]) [address] [place] [address] Basic metabolic 2000 panelon 10-26-2023 Anion gap [Moles/Vol] 11 mmol/L Normal - [facility] Comment on above: Performed By: #### 2 4321-2 #### ANDREE TONY ([id number]) [facility] ([facility]) [address] [place] [address] Calcium [Mass/Vol] 8.5 mg/dL Low 8.6-10.3 [facility] Comment on above: Performed By: #### 2 4321-2 #### ANDREE TONY ([id number]) [facility] ([facility]) [address] [place] [address] Chloride [Moles/Vol] 106 mmol/L Normal 98-107 [facility] Comment on above: Performed By: #### 2 4321-2 #### ANDREE TONY ([id number]) [facility] ([facility]) [address] [place] [address] CO2 [Moles/Vol] 25 mmol/L Normal 21-32 [facility] Comment on above: Performed By: #### 2 432-2 #### ANDREE TONY ([id number]) [facility] ([facility]) [address] [place] [address] Creatinine [Mass/Vol] 0.58 mg/dL Normal 0.50-1.05 [facility] Comment on above: Performed By: #### 2 432-2 #### ANDREE MICHAUDI ([id number]) [facility] ([facility]) [address] [place] [address] GFR/1.73 sq M.predicted MDRD (S/P/Bld) [Vol rate/Area] mL/min/{1.73_m2} Normal >60 [facility] Comment on above: Result Comment: Calc ulations of estimated GFR are performed using the 2020 CKD-EPI Study Refit equation without the race variable for the IDMS-Traceable creatinine methods. https://jasn.asnjournals.org/content//ASN.1505387 988 Performed By: #### 2 432-2 #### ANDREE TONY ([id number]) [facility] ([facility]) [address] [place] [address] Glucose [Mass/Vol] 87 mg/dL Normal 74-99 [facility] Comment on above: Performed By: #### 2 432-2 #### ANDREE TONY ([id number]) [facility] ([facility]) [address] [place] [address] Potassium [Moles/Vol] 5.4 mmol/L High 3.5-5.3 [facility] Comment on above: Result Comment: GEOVANI ED HEMOLYSIS DETECTED. The result may be falsely elevated due to hemolysis or other interferents. Clinical correlation is recommended. Repeat testing may be considered. Performed By: #### 2 4321-2 #### ANDREE TONY ([id number]) [facility] ([facility]) [address] [place] [address] Sodium [Moles/Vol] 137 mmol/L Normal 136-145 [facility] Comment on above: Performed By: #### 2 4321-2 #### ANDREE TONY ([id number]) [facility] ([facility]) [address] [place] [address] Urea nitrogen [Mass/Vol] 13 mg/dL Normal 6-23 [facility] Comment on above: Performed By: #### 2 4321-2 #### ANDREE MICHAUDI ([id number]) [facility] ([facility]) [address] [place] [address] Anion gap [Moles/Vol] 11 mmol/L 10 - 20 mmol/L [facility] Calcium [Mass/Vol] 8.5 mg/dL Low 8.6 - 10.3 mg/dL [facility] Chloride [Moles/Vol] 106 mmol/L 98 - 107 mmol/L [facility] CO2 [Moles/Vol] 25 mmol/L 21 - 32 mmol/L [facility] Creatinine [Mass/Vol] 0.58 mg/dL 0.50 - 1.05 mg/dL [facility] GFR/1.73 sq M.predicted MDRD (S/P/Bld) [Vol rate/Area] - PINF [facility] Comment on above: Calculations of henry mated GFR are performed using the 2020 CKD-EPI Study Refit equation without the race variable for the IDMS-Traceable creatinine methods. https://jasn.asnjournals.org/content/early/ASN.8045471 988 Glucose [Mass/Vol] 87 mg/dL 74 - 99 mg/dL [facility] Interpretation and review of laboratory results Abnormal [facility] Potassium [Moles/Vol] 5.4 mmol/L High 3.5 - 5.3 mmol/L [facility] Comment on above: MARKED HEMOLYSIS DET ECTED. The result may be falsely elevated due to hemolysis or other interferents. Clinical correlation is recommended. Repeat testing may be considered. Sodium [Moles/Vol] 137 mmol/L 136 - 145 mmol/L [facility] Urea nitrogen [Mass/Vol] 13 mg/dL 6 - 23 mg/dL [facility] CARDIAC CATHETERIZATION - CO Nichol 10-26-2023 CARDIAC CATHETERIZATION - CORONARY [facility], [address] [place], [place] [address] Cardiovascular Catheterization Report Patient Name: ELLA JACOBO Performing Physician: Dawit Castrejon MD Study Date: 10/26/2023 Verifying Physician: Dawit Castrejon MD MRN/PID: [id number] Biosecurity Officer/Co-scr ub: Ordering Provider: Dawit CASTREJON Date of /Age: 1210/17/1960 / 63 years Fellow: [id number] Jacob Garcia MD Gender: F Fellow: [id number] Bertha Santoyo MD Study: PCI - Percutaneous Coronary Intervention Additional Study: IVUS - Intravascular Ultrasound Indications: ELLA JACOBO is a 63 year old female [...] a modified Seldinger technique. Subsequently a 6 Tajik sheath was placed retrograde in the right femoral artery. After infiltration with 2% Lidocaine, a second arterial access was obtained via the left femoral artery with a modified Seldinger technique and a 6 Tajik sheath was placed. This second arterial access [...] kit was used to reduce a 6 Tajik 45 cm sheath into the right femoral artery. Ultrasound guidance with a micropuncture kit was used to introduce a 6 Tajik 45 cm sheath into the left femoral artery. Heparin was given for an ACT greater than 300 during the entire case. Patient is chronically on aspirin and Brilinta. A 6 Tajik AL 0.75 guiding catheter was used engage the right coronary system. A 6 Tajik EBU 3.75 guiding catheter was shortened and used to engage the left coronary system. A BMW wire was used to wire the circumflex artery. Beverley blue wire was used to advance a Corsair pro 135 and a 6 Tajik trap liner into the RCA. A Mongo wire was used to wire the true lumen into the distal RCA. This was confirmed by retrograde angiography as well as wire movement. The microcatheter was advanced. Beverley blue wire was advanced into the PLB. Predilation wa (more content not included)... Normal [facility] CBC panel Auto (Bld)on 10-26 Erythrocyte distribution width (RBC) [Ratio] 13.3 % Normal 11.5-14.5 [facility] Comment on above: Performed By: #### 5 8410-2 #### ANDREE TONY ([id number]) [facility] ([facility]) [address] [place] [address] Hematocrit (Bld) [Volume fraction] 37.5 % Normal 36.0-46.0 [facility] Comment on above: Performed By: #### 5 8410-2 #### ANDREE TONY ([id number]) [facility] ([facility]) [address] [place] [address] Hemoglobin (Bld) [Mass/Vol] 13.0 g/dL Normal 12.0-16.0 [facility] Comment on above: Performed By: #### 5 8410-2 #### ANDREE TONY ([id number]) [facility] ([facility]) [address] [place] [address] MCH (RBC) [Entitic mass] 33.0 pg Normal 26.0-34.0 [facility] Comment on above: Performed By: #### 5 8410-2 #### ANDREE TONY ([id number]) [facility] ([facility]) [address] [place] [address] MCHC (RBC) [Mass/Vol] 34.7 g/dL Normal 32.0-36.0 [facility] Comment on above: Performed By: #### 5 8410-2 #### ANDREE TONY ([id number]) [facility] ([facility]) [address] [place] [address] MCV (RBC) [Entitic vol] 95 fL Normal 80-100 [facility] Comment on above: Performed By: #### 5 8410-2 #### ANDREE TONY ([id number]) [facility] ([facility]) [address] [place] [address] Nucleated RBC/100 WBC (Bld) [Ratio] 0.0 /100 WBCs Normal 0.0-0.0 [facility] Comment on above: Performed By: #### 5 8410-2 #### ANDREE TONY ([id number]) [facility] ([facility]) [address] [place] [address] Platelets (Bld) [#/Vol] 240 x10*3/uL Normal 150-450 [facility] Comment on above: Performed By: #### 5 8410-2 #### ANDREE TONY ([id number]) [facility] ([facility]) [address] [place] [address] RBC (Bld) [#/Vol] 3.94 x10*6/uL Low 4.00-5.20 [facility] Comment on above: Performed By: #### 5 8410-2 #### ANDREE TONY ([id number]) [facility] ([facility]) [address] [place] [address] WBC (Bld) [#/Vol] 4.4 x10*3/uL Normal 4.4-11.3 [facility] Comment on above: Performed By: #### 5 8410-2 #### ANDREE TONY ([id number]) [facility] ([facility]) [address] [place] [address] Erythrocyte distribution width (RBC) [Ratio] 13.3 % 11.5 - 14.5 % [facility] Hematocrit (Bld) [Volume fraction] 37.5 % 36.0 - 46.0 % [facility] Hemoglobin (Bld) [Mass/Vol] 13.0 g/dL 12.0 - 16.0 g/dL [facility] Interpretation and review of laboratory results Abnormal [facility] MCH (RBC) [Entitic mass] 33.0 pg 26.0 - 34.0 pg [facility] MCHC (RBC) [Mass/Vol] 34.7 g/dL 32.0 - 36.0 g/dL [facility] MCV (RBC) [Entitic vol] 95 fL 80 - 100 fL [facility] Nucleated RBC/100 WBC (Bld) [Ratio] 0.0 % [facility] Platelets (Bld) [#/Vol] 240 10*3/uL [facility] RBC (Bld) [#/Vol] 3.94 10*6/uL [facility] WBC (Bld) [#/Vol] 4.4 10*3/uL [facility] Cardiac catheterization stud yon 10-26-2023 [facility] [employer] [employer], [address] [place] [address] Cardiovascular Catheterization Report Patient Name: ELLA JACOBO Performing Physician: Dawit Castrejon MD Study Date: 10/26/2023 Verifying Physician: Dawit Castrejon MD MRN/PID: [id number] Biosecurity Officer/Co-scr ub: Ordering Provider: Dawit CASTREJON Date of /Age: 1210/17/1960 / 63 years Fellow: [id number] Jacob Garcia MD Gender: F Fellow: [id number] Bertha Santoyo MD Study: PCI - Percutaneous Coronary Intervention Additional Study: IVUS - Intravascular Ultrasound Indications: ELLA JACOBO is a 63 year old female [...] a modified Seldinger technique. Subsequently a 6 Tajik sheath was placed retrograde in the right femoral artery. After infiltration with 2% Lidocaine, a second arterial access was obtained via the left femoral artery with a modified Seldinger technique and a 6 Tajik sheath was placed. This second arterial access [...] kit was used to reduce a 6 Tajik 45 cm sheath into the right femoral artery. Ultrasound guidance with a micropuncture kit was used to introduce a 6 Tajik 45 cm sheath into the left femoral artery. Heparin was given for an ACT greater than 300 during the entire case. Patient is chronically on aspirin and Brilinta. A 6 [place]ik AL 0.75 guiding catheter was used engage the right c (more content not included)... Harika Edwards MD - 10/26/2023 [facility] [employer], [address] [place], [place] [id number] Cardiovascular Catheterization Report Patient Name: ELLA JACOBO Performing Physician: [id number] Castrejon MD Study Date: 10/26/2023 Verifying Physician: Dawit Castrejon MD MRN/PID: [id number] Biosecurity Officer/Co-scr ub: Ordering Provider: Dawit CASTREJON Date of /Age: 1210/17/1960 / 63 years Fellow: [id number] Jacob Garcia MD Gender: F Fellow: [id number] Bertha Santoyo MD Study: PCI - Percutaneous Coronary Intervention Additional Study: IVUS - Intravascular Ultrasound Indications: ELLA JACOBO is a 63 year old female [...] a modified Seldinger technique. Subsequently a 6 Tajik sheath was placed retrograde in the right femoral artery. After infiltration with 2% Lidocaine, a second arterial access was obtained via the left femoral artery with a modified Seldinger technique and a 6 Tajik sheath was placed. This second arterial access [...] kit was used to reduce a 6 Tajik 45 cm sheath into the right femoral artery. Ultrasound guidance with a micropuncture kit was used to introduce a 6 Tajik 45 cm sheath into the left femoral artery. Heparin was given for an ACT greater than 300 during the entire case. Patient is chronically on aspirin and Brilinta. A 6 Tajik AL 0.75 guiding catheter was used engage the right coronary system. A 6 Tajik EBU 3.75 guiding catheter was shortened and used to engage the left coronary system. A BMW wire was used to wire the circumflex artery. Beverley blue wire was used to advance a Corsair pro 135 and a 6 Tajik trap liner into the RCA. A Mongo wire was used to wire the true lumen into the distal RCA. This was confirmed by retrograde angiography (more content not included)... [facility] Work Phone: Cardiac catheterization stud yOrdered By: Harika Castrejon on 10-26-2023 [facility] Work Phone: Coagulation tissue factor in [place]on 10-26-2023 PT Coag (PPP) [Time] 10.8 s Normal 9.8-12.8 [facility] Comment on above: Performed By: #### 5 902-2 #### ANDREE TONY ([id number]) [facility] ([facility]) [address] [place] [address] ECG 12-LEADon 10-26-2023 ECG 12-LEAD Ventricular Rate 67 Atrial Rate 67 P-R Interval 146 QRS Duration 84 Q-T Interval 448 QTC Calculation(Bazett) 473 P [place] 66 R [place] 41 T [place] 91 QRS Count 11 Q Onset 225 P Onset 152 P Offset 211 T Offset 449 QTC Fredericia 465 Diagnosis Normal sinus rhythm ST & T wave abnormality, consider anterolateral ischemia Prolonged QT Abnormal ECG Confirmed by Omero Rodriguez ([id number]) on 10/28/2023 3:51:15 PM Normal [facility] ECG 12-LEAD Ventricular Rate 75 Atrial Rate 75 P-R Interval 140 QRS Duration 82 Q-T Interval 396 QTC Calculation(Bazett) 442 P [place] 58 R [place] 31 T [place] 181 QRS Count 13 Q Onset 212 P Onset 142 P Offset 203 T Offset 410 QTC Fredericia 426 Diagnosis Normal sinus rhythm T wave abnormality, consider inferolateral ischemia Abnormal ECG Confirmed by Omero Rodriguez ([id number]) on 10/28/2023 3:51:10 PM Normal [facility] PT Coag (PPP) [Time]on 10-26 INR Coag (PPP) [Relative time] 1.0 Normal 0.9-1.1 [facility] Comment on above: Performed By: #### 5 902-2 #### ANDREE TONY ([id number]) [facility] ([facility]) [address] [place] [address] PT Coag (PPP) [Time]Ordered By: Jamil Fine on 10-26-2023 INR Coag (PPP) [Relative time] 1.0 {INR} 0.9 - 1.1 [facility] Interpretation and review of laboratory results Normal [facility] Protime-INROrdered By: Frederick Franklin on 10-26-2023 PT Coag (PPP) [Time] 10.8 s [facility] Consent for Treatmenton 10-14 Consent for Treatment [id number] 33#1.00TIFF Normal [facility] US Carotid Duplex Bilateralo n 10-25-2023 US [...] Criteria Committee. Vascular Medicine 2020; https://journals.sa gepub.com/doi/full/ 10.1177/1237907F714 576799 Ordering Provider: Tiffany Jansen FINAL REPORT Dictated: 10/25/2023 4:07 pm Edmund Arce M.D. Signed (Electronic Signature): 10/25/2023 4:07 pm Signed by: Edmund Arce M.D. Transcribed by: JEANINE Technologist: NORAH Technical Comments Velocities Right Vert. Antegrade Yes Velocities Left Vert. Antegrade Yes Normal [facility] No Panel Informationon 10-24 Study performed outside the system. Official study report is not available here and may be obtained from the performing facility. 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 She is accompanied by [...] age, normal judgement, normal psychiatric thoughts. 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 1. CAD CAD with known OUTBOUND SALES EXECUTIVE of RCA. I was unable to cross OUTBOUND SALES EXECUTIVE. We are sending her to Dr. Fofana. [...] with voice recognition artificial intelligence software, specifically Visual.ly, Hiptype and or Electronic Compute Systems. Substitutions may have occurred due to the inherent limitations of voice recognition and artificial intelligence software. Documentation services were performed after patient or guardian consented to allow Eletrogóes eXperience to r (more content not included)... [facility] Comment on above: Result Comment: Elec tronically Signed By: Joyce POSEY, Tiffany Chavarria\.br\Date and Time Signed: 10/13/23 19:47 EST\.br\Electronically Co-Signed By: Jenn Bañuelos\.br\Date and Time Co-Signed: 10/13/23 17:27 EST Physician Orderon 10-13-2023 Physician Order [id number] 534#1.00TIFF [facility] Provider Letteron 10-10-2023 Provider Letter October 10, 2023 ELLA JACOBO [address] [place] [address] [place] [address] : 1960 Dear Ella , We have been trying to reach [...] attention to this matter. Sincerely, [place] [address] [facility] Heart and Vascular Office/Cl inic Noteon 10-08-2023 Heart and Vascular Office/Clinic Note Chief Complaint f/u SOB/chest pain History of Present Illness Ella aJcobo is a 62-year-old female who presents today [...] age, normal judgement, normal psychiatric thoughts. Assessment/Plan Ella Jacobo is a 62-year-old female with a history of myocardial infarction and primary PCI, STEMI, hypertension, and hyperlipidemia. She is still having ongoing symptoms. 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 Chest pressure (R07.89: Other chest pain) She showed no improvement with Imdur. 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 Follow up in 6 weeks in [place]. Portions of this record may have been created with voice recognition artificial intelligence software, specifically Visual.ly, Hiptype and or [employer] Compute Systems. Substitutions may have occurred due to the inherent limitations of voice recognition and artificial intelligence software. Documentation services were performed after patient or guardian consented to allow DynaPump to record this visit. DESTINY retail performance specialist and provider reviewed before signing. DESTINY: George [place] Follow-up No qualifying data available Problem List/Past [...] Oral, B (more content not included)... Normal [facility] Comment on above: Result Comment: Elec tronically Signed By: Joyce POSEY, Tiffany Chavarria\.br\Date and Time Signed: 10/08/23 13:39 EST\.br\Electronically Co-Signed By: George Newell\.br\Date and Time Co-Signed: 09/01/23 16:29 EDT Heart and Vascular Office/Clinic Note Chief Complaint heart cath f/u History of Present Illness Ella Jacobo is a 62-year-old female who presents today for a follow-up evaluation of a recent FL in the circumflex territory. 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 She is accompanied by [...] back and she needs to go to [place] on 07/25/2023 for possible surgery. She had [...] age, normal judgement, normal psychiatric thoughts. Assessment/Plan Ella Jacobo is a 62-year-old female with recent FL in the circumflex territory. 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 She is still having some angina, but not nearly as bad as it was before her heart attack. We are going to give her some isosorbide and we are trying medical for now. It is amenable to a possible PCI if we are unable to achieve resolution of symptoms with medication. Follow up in 6 weeks in [place]. Portions of this record may have been created with voice recognition artificial intelligence software, specifically Visual.ly, Hiptype and or Electronic Compute Systems. Substitutions may have occurred with voice recognition and artificial intelligence software. Documentation services were performed after patient or guardian consented to allow DynaPump to record this visit. DESTINY retail performance specialist and provider reviewed before signing. DESTINY: George [place] Follow-up No qualifying data available Problem List/Past [...] mg= 1 (more content not included)... Normal [facility] Comment on above: Result Comment: Elec tronically Signed By: Joyce POSEY, Tiffany Chavarria\.br\Date and Time Signed: 10/08/23 09:58 EST\.br\Electronically Co-Signed By: George Newell\.br\Date and Time Co-Signed: 07/21/23 16:21 EDT\.br\Electronically Co-Signed By: George Newell\.br\Date and Time Co-Signed: 07/21/23 16:41 EDT Ambulatory Visit Summaryon 1 11-29-2022 Ambulatory Visit Summary ELLA JACOBO :1960 Visit Date:09/29/2023 Ambulatory Visit Instructions Your Diagnosis Major depressive disorder, recurrent, mild Atherosclerosis of aorta History of ST elevation myocardial infarction (STEMI) BMI 30.0-30.9,adult Smoker Walker as ambulation aid Polyneuropathy Encounter for immunization Fatigue Your Care Team Attending Physician - Fly Luis MD. Primary Care Physician - Fly Luis MD. This Is Your Medications List [facility] [...] With: Tiffany Jansen MD Where: [facility] [place] 2022 1:45 PM EST With: Tiffany Jansen MD Where: [facility] [place] Tuesday 4:00 PM EST With: Fly Luis MD Where: [place] [phone] \.br\ Medications\.br\ What How Much When Why [...] for choosing us for your care.\.br\ \.br\ [facility] Auto Diffon 09-29-2023 Basophils/100 WBC (Bld) 0.6 % Normal 0.0-2.0 [facility] Comment on above: Order Comment: Order Added by Discern Expert. Performed By: #### 2 363513, 9283019, 6313649, 243729258, 75836716, 9930780, 09024727, 7957960, 3488451 #### [facility] [address] [place] [address] Basophils/Leukocytes Auto (Bld) [Pure # fraction] 0.0 E9/L Normal 0.0-0.2 [facility] Comment on above: Order Comment: Order Added by Discern Expert. Performed By: #### 2 002856, 9626673, 7510405, 712753856, 92831261, 1407774, 97696871, 8121629, 6386377 #### [facility] [address] [place] [address] Eosinophils/100 WBC (Bld) 2.2 % Normal 0.0-8.0 [facility] Comment on above: Order Comment: Order Added by Discern Expert. Performed By: #### 2 134165, 7730400, 8936195, 403039991, 63576281, 2224430, 27632501, 9494403, 5240065 #### [facility] [address] [place] [address] Eosinophils/Leukocyt es Auto (Bld) [Pure # fraction] 0.1 E9/L Normal 0.0-0.5 [facility] Comment on above: Order Comment: Order Added by Discern Expert. Performed By: #### 2 722576, 0924309, 4052886, 794903709, 77737409, 1993103, 47579281, 3355800, 8250507 #### [facility] [address] [place] [address] Lymphocytes/100 WBC (Bld) 37.8 % Normal 14.0-50.0 [facility] Comment on above: Order Comment: Order Added by Discern Expert. Performed By: #### 2 566171, 3503014, 6704437, 926773306, 50735475, 6369145, 58603495, 4941454, 6151295 #### [facility] [address] [place] [address] Lymphocytes/Leukocyt es Auto (Bld) [Pure # fraction] 1.7 E9/L Normal 1.0-4.0 [facility] Comment on above: Order Comment: Order Added by Discern Expert. Performed By: #### 2 217516, 8584309, 2074370, 559274550, 30378246, 7413866, 06024404, 9138819, 3439106 #### [facility] [address] [place] [address] Monocytes/100 WBC (Bld) 7.2 % Normal 4.0-14.0 [facility] Comment on above: Order Comment: Order Added by Discern Expert. Performed By: #### 2 629489, 6950651, 1529684, 362901417, 65590966, 6703411, 88573933, 6495751, 8505500 #### [facility] [address] [place] [address] Monocytes/Leukocytes Auto (Bld) [Pure # fraction] 0.3 E9/L Normal 0.2-1.0 [facility] Comment on above: Order Comment: Order Added by Discern Expert. Performed By: #### 2 609164, 9532525, 2923165, 260689679, 03514511, 5569235, 89345054, 2859609, 6534974 #### [facility] [address] [place] [address] Neutrophils/100 WBC (Bld) 52.2 % Normal 36.0-75.0 [facility] Comment on above: Order Comment: Order Added by Discern Expert. Performed By: #### 2 599561, 6583349, 2027780, 870984992, 08679818, 4836794, 77398865, 8182705, 0438980 #### [facility] [address] [place] [address] Neutrophils/Leukocyt es Auto (Bld) [Pure # fraction] 2.3 E9/L Normal 2.0-7.5 [facility] Comment on above: Order Comment: Order Added by Discern Expert. Performed By: #### 2 781931, 1362503, 1271956, 373714139, 07370617, 0778004, 60767523, 2276277, 3039721 #### [facility] [address] [place] [address] CBC w/ Auto Diffon 3 Erythrocyte distribution width (RBC) [Ratio] 13.4 % Normal 10.9-14.2 [facility] Comment on above: Performed By: #### 2 938094, 8288771, 2476723, 431510857, 79400603, 0880853, 89381547, 1336314, 1888498 #### [facility] [address] [place] [address] Hematocrit (Bld) [Volume fraction] 37.9 % Normal 34.0-46.0 [facility] Comment on above: Performed By: #### 2 410663, 2726934, 4701818, 080357543, 89579337, 9204988, 42561691, 1401119, 8110030 #### [facility] [address] [place] [address] Hemoglobin (Bld) [Mass/Vol] 13.1 g/dL Normal 12.0-16.0 [facility] Comment on above: Performed By: #### 2 507461, 2744122, 3321852, 000459776, 04119150, 2593364, 70898547, 8249605, 3015781 #### [facility] [address] [place] [address] MCH (RBC) [Entitic mass] 32.0 pg Normal 27.0-34.0 [facility] Comment on above: Performed By: #### 2 073498, 5538263, 9216114, 059656942, 14594369, 5407651, 33605019, 3258995, 1795082 #### [facility] [address] [place] [address] MCHC (RBC) [Mass/Vol] 34.5 g/dL Normal 31.4-36.0 [facility] Comment on above: Performed By: #### 2 022918, 5011380, 9434944, 649248835, 60751150, 6422188, 31340419, 8538087, 0162106 #### [facility] [address] [place] [address] MCV (RBC) [Entitic vol] 92.6 fL Normal 80.0-100.0 [facility] Comment on above: Performed By: #### 2 658900, 4360446, 8579698, 297531317, 85198186, 8291025, 53587816, 9294227, 9918518 #### [facility] [address] [place] [address] Platelet mean volume (Bld) [Entitic vol] 7.5 fL Normal 6.4-10.8 [facility] Comment on above: Performed By: #### 2 630251, 7752288, 1695689, 968208153, 80361945, 3785877, 81493586, 6217247, 3385615 #### [facility] [address] [place] [address] Platelets (Bld) [#/Vol] 291.0 E9/L Normal 150.0-500.0 [facility] Comment on above: Performed By: #### 2 404624, 6687254, 5861074, 067310072, 01265211, 5741769, 41477042, 5779192, 9458902 #### [facility] [address] [place] [address] RBC (Bld) [#/Vol] 4.1 E12/L Low 4.3-5.9 [facility] Comment on above: Performed By: #### 2 252483, 3691523, 6936242, 722052850, 16863536, 3198747, 15951237, 2186529, 3263103 #### [facility] [address] [place] [address] WBC corrected for nucl RBC Auto (Bld) [#/Vol] 4.5 E9/L Normal 4.0-11.0 [facility] Comment on above: Performed By: #### 2 506798, 7956674, 2855428, 867263969, 69716551, 5653322, 06009664, 3730158, 4462865 #### [facility] [address] [place] [address] CHEMISTRYOrdered By: SYSTEM SYSTEM on 09-29-2023 25-hydroxyvitamin D3 [Mass/Vol] 21.1 ng/mL Low 30.0 - 100.0 ng/mL [facility] Remisol Comment on above: Interpretive Data: Vitamin D deficiency has been defined as a level of serum 25-OH vitamin D less than 20 ng/mL (1,2) by the [place] of Medicine and an Endocrine Society practice guideline. The Endocrine Society further defined vitamin D insufficiency as a level between 21 and 29 ng/mL (2). 1. IOM ([place] of Medicine). 2010. Dietary reference intakes for [...] rate/Area] 97 mL/min/1.73 m2 Normal >=59mL/min/1.73 m2 [facility] Chem S Comment on above: Interpretive Data: [...] g/dL Normal 6.0 - 7.8 gm/dL F [facility] Remisol Sodium [Moles/Vol] 139 mmol/L Normal 135 - 145 mmol/L [facility] TSH Qn 1.20 m[IU]/L Normal 0.34 - 5.60 mcIU/mL [facility] Urea nitrogen [Mass/Vol] 13 mg/dL Normal 5 - 21 mg/dL [facility] Urea nitrogen/Creatinine [Mass ratio] 19 mg/mg Normal 10 - 20 [facility] Remisol CMPon 09-29-2023 Albumin [Mass/Vol] 3.7 g/dL Normal 3.3-5.0 [facility] Comment on above: Performed By: #### 2 779836, 3124705, 7271681, 417661706, 06582732, 5740678, 39777499, 0766440, 4244671 #### [facility] [address] [place] [address] Albumin/Globulin (S) [Mass conc ratio] 0.9 Low 1.1-2.2 [facility] Comment on above: Performed By: #### 2 290542, 7499446, 7571380, 836205437, 04472510, 3543973, 11127354, 5690330, 1662841 #### [facility] [address] [place] [address] ALP [Catalytic activity/Vol] 132 Int._Unit/L High 21-98 [facility] Comment on above: Performed By: #### 2 976386, 8200300, 1184116, 205554324, 64707174, 3564355, 98851800, 7582865, 1258809 #### [facility] [address] [place] [address] ALT No additional P-5'-P [Catalytic activity/Vol] 14 Int._Unit/L Normal 6-46 [facility] Comment on above: Performed By: #### 2 630166, 8965832, 6556617, 821786294, 16529719, 7343012, 41611189, 9018989, 0344231 #### [facility] [address] [place] [address] Anion gap [Moles/Vol] 11 mmol/L Normal 6-16 [facility] Comment on above: Performed By: #### 2 179683, 0565673, 1653470, 525800430, 61642546, 0439956, 62725949, 2149676, 7809960 #### [facility] [address] [place] [address] AST [Catalytic activity/Vol] 19 Int._Unit/L Normal 5-43 [facility] Comment on above: Performed By: #### 2 467088, 3281766, 8532690, 311759678, 34861037, 9093335, 46725103, 6741179, 1463150 #### [facility] [address] [place] [address] Bilirubin [Mass/Vol] 0.2 mg/dL Normal 0.0-1.[address] [facility] Comment on above: Performed By: #### 2 718593, 3047733, 3734322, 836719595, 71854201, 1470880, 73474421, 0587115, 4716972 #### [facility] [address] [place] [address] Calcium [Mass/Vol] 9.3 mg/dL Normal 8.9-11.1 [facility] Comment on above: Performed By: #### 2 449162, 3038497, 2882350, 056895653, 12091216, 2019171, 42108413, 3852303, 1857969 #### [facility] [address] [place] [address] Chloride [Moles/Vol] 106 mmol/L Normal 101-[address] [facility] Comment on above: Performed By: #### 2 364704, 2814764, 5652476, 669353797, 21643979, 6699078, 44076198, 1161745, 3030983 #### [facility] [address] [place] [address] CO2 [Moles/Vol] 26 mmol/L Normal 21-31 [facility] Comment on above: Performed By: #### 2 777039, 9682150, 4675350, 030696913, 75269746, 5080466, 05176614, 7457756, 1169979 #### [facility] [address] [place] [address] Creatinine [Mass/Vol] 0.7 mg/dL Normal 0.5-1.3 [facility] Comment on above: Performed By: #### 2 391919, 0778894, 5190525, 197678088, 68791836, 5459881, 17946436, 8820314, 0549933 #### [facility] [address] [place] [address] Globulin (S) [Mass/Vol] 4.0 g/dL Normal 1.4-4.0 [facility] Comment on above: Performed By: #### 2 350772, 3500620, 9664417, 867830150, 07595564, 4479837, 84580660, 3169983, 0793387 #### [facility] [address] [place] [address] Glucose [Mass/Vol] 89 mg/dL Normal 55-199 [facility] Comment on above: Result Comment: If t his glucose result represents a fasting glucose, interpretation should refer to the following reference range: 55-99 mg/dL Performed By: #### 2 859908, 5903992, 3461915, 698256643, 57724328, 3034397, 02016176, 7087279, 0710323 #### [facility] [address] [place] [address] Potassium [Moles/Vol] 3.5 mmol/L Normal 3.5-5.3 [facility] Comment on above: Performed By: #### 2 654621, 5097543, 1299833, 556222934, 87285634, 7707382, 20543374, 3051101, 2384629 #### [facility] [address] [place] [address] Protein [Mass/Vol] 7.7 g/dL Normal 6.0-7.8 [facility] Comment on above: Performed By: #### 2 573404, 2614025, 6289168, 938135613, 61065193, 5428074, 40323077, 3142696, 0014277 #### [facility] [address] [place] [address] Sodium [Moles/Vol] 139 mmol/L Normal 135-145 [facility] Comment on above: Performed By: #### 2 716054, 5204543, 8054707, 323902247, 49689802, 0324303, 16284031, 3308245, 4450998 #### [facility] [address] [place] [address] Urea nitrogen [Mass/Vol] 13 mg/dL Normal 5-21 [facility] Comment on above: Performed By: #### 2 060468, 5332941, 5093154, 709342962, 40836421, 0378806, 05747334, 6814179, 7595209 #### [facility] [address] [place] [address] Urea nitrogen/Creatinine [Mass ratio] 19 No Units Normal 10-20 [facility] Comment on above: Performed By: #### 2 396266, 7850138, 5423221, 821252683, 63283393, 3639766, 18682588, 8298113, 4728760 #### Juan Pablo [facility] [address] [place] [address] Consent for Flu Vaccineon Consent for Flu Vaccine [id number] 5#1.00TIFF Normal [facility] Family Medicine Office/Clini c Noteon 09-29-2023 Family Medicine Office/Clinic Note HPI Staff Ella is a 62 year old female presenting [...] flu shot today. Ordered: FIRST VACCINE w/o Wood Gouger Admin Charge 06202 9. Fatigue (R53.83: Other fatigue) Encouraged the [...] List/Past Medical (more content not included)... Normal [facility] Comment on above: Result Comment: Elec tronically Signed By: Janelle POSEY, Fly Jean Baptiste\.br\Date and Time Signed: 09/29/23 10:01 EST Folateon 09-29-2023 Folate [Mass/Vol] 9.4 ng/mL Normal >=6.7 [facility] Comment on above: Performed By: #### 2 192836, 4930144, 2279782, 619079363, 93251448, 5809653, 20875275, 9935539, 7318675 #### [facility] [address] [place] [address] HEMATOLOGYOrdered By: SYSTEM SYSTEM on 09-29-2023 Basophils/100 [...] 09-29-2023 Magnesium [Mass/Vol] 2.1 mg/dL Normal 1.3-2.[address] [facility] Comment on above: Performed By: #### 2 478305, 8623169, 2682205, 212910221, 70480749, 1150973, 41412441, 8082099, 3095574 #### [facility] [address] [place] [address] TSH With T4fr Reflexon 09-29 TSH Qn 1.20 m[IU]/L Normal 0.34-5.60 [facility] Comment on above: Performed By: #### 2 238176, 5605402, 9505189, 175992139, 50431220, 4142171, 77658725, 6571391, 9926874 #### [facility] [address] [place] [address] Vit B12on 09-29-2023 Cobalamin (Vitamin B12) [Mass/Vol] 113 pg/mL Normal 50-1500 [facility] Comment on above: Performed By: #### 2 175494, 3312572, 8510868, 172147120, 62503384, 0648491, 32037847, 7341914, 2474448 #### [facility] [address] [place] [address] Vitamin D 25 Hydroxyon 09-29 25-hydroxyvitamin D3 [Mass/Vol] 21.1 ng/mL Low 30.0-100.0 [facility] Comment on above: Result Comment: Vit plata D deficiency has been defined as a level of serum 25-OH vitamin D less than 20 ng/mL (1,2) by the [place] of [employer] and an Endocrine Society practice guideline. The Endocrine Society further defined vitamin D insufficiency as a level between 21 and 29 ng/mL (2). 1. IOM ([place] of [employer]). 2010. Dietary reference intakes for calcium and D. Sue [place]: The National Academies Press. 2. Jaclyn MF, Julia NC, James BLISS, et al. Evaluation, treatment, and prevention of vitamin D deficiency: an Endocrine Society clinical practice guideline. JCEM. 2010; 96 (7):1911-30. Performed By: #### 2 478208, 3156382, 4829058, 913349801, 62081299, 2388101, 89228203, 7114455, 1101926 ####[facility] [address] [place] [address] eGFRon 09-29-2023 GFR/1.73 sq M.predicted among non-blacks MDRD (S/P/Bld) [Vol rate/Area] 97 mL/min/1.73 m2 Normal >=59 [facility] Comment on above: Order Comment: Order added by Discern Expert. Result Comment: [employer] [place] kidney disease could be indicated at eGFR's of less than 60 mL/min/1.73m2. Kidney failure is indicated at less than 15 mL/min/1.73m2. Performed By: #### 2 077120, 5984201, 1684914, 611415466, 96251921, 9742415, 40585605, 6850503, 5093815 #### [facility] [address] [place] [address] Coding Summary.on 09-19-2023 Coding Summary. [id number] 286#1.00TIFF Normal [facility] Pre-Visit Planningon 023 Pre-Visit Planning -- From: Beka LY, Alesia To: Fly Luis MD; Sent: 09/12/2023 11:21:33 EDT Subject: Pre-Visit Planning Due Date/Time: 09/12/2023 11:21:00 EDT Caller Name: ELLA JACOBO; Caller Number: , Seng Luis, *Based on your response below, can you please update the chronic problem list and address during this visit if appropriate?* During a pre-visit planning chart review, I noted the following documentation in the medical record: Problem list- Acute ST elevation myocardial infarction (documented 07/09/2023) 07/09/2023 cardio pprk-07-nekz-old female with no prior cardiac history presents after 2 days of stuttering intermittent chest pain followed by worsening few hours ago. Found to have posterior STEMI and got primary PCI. Left-ventricular end-diastolic pressure was a little bit up in the [employer] EF was little bit down she got [...] feel free to contact me at extension [phone]. Thank you! SAMIR Felix, RN, CCM, CCDS, CCDS-O -- From: Fly Luis MD To: Alesia Ireland RN; Sent: 09/13/2023 08:36:08 EDT Subject: RE: Pre-Visit Planning Caller Name: ELLA JACOBO; Caller Number: H , M Major depressive disorder, recurrent, mild Thanks -- From: Alesia Ireland RN To: Fly Luis MD; Sent: 09/13/2023 08:47:29 EDT Subject: FW: Pre-Visit Planning Due Date/Time: 09/13/2023 08:47:00 EDT Caller Name: ELLA JACOBO; Caller Number: H , M Trina Luis, can you verify your response on this one regarding the STEMI. -- From: Fly Lius MD To: Alesia Ireland RN; Sent: 09/14/2023 08:35:13 EDT Subject: RE: Pre-Visit Planning Caller Name: ELLA JACOBO; Caller Number: Norberto , M hx of stemi Thanks Normal [address] [facility] 023 Pre-Visit Planning -- From: Alesia Ireland RN To: Fly Luis MD; Sent: 09/12/2023 11:16:22 EDT Subject: Pre-Visit Planning Due Date/Time: 09/12/2023 11:16:00 EDT Caller Name: ELLA JACOBO; Caller Number: Norberto , M Ny Dr. Luis, *Based on your response below, [...] feel free to contact me at extension [phone]. Thank you! Alesia Ireland, SAMIR, RN, CCM, CCDS, CCDS-O -- From: Fly Luis MD To: Alesia Ireland RN; Sent: 09/13/2023 08:35:41 EDT Subject: RE: Pre-Visit Planning Caller Name: ELLA JACOBO; Caller Number: Norberto , M Ok to add Normal [address] [facility] Pre-Visit Planning -- From: Alesia Ireland RN To: Fly Luis MD; Sent: 09/12/2023 11:12:01 EDT Subject: Pre-Visit Planning Due Date/Time: 09/12/2023 11:11:00 EDT Caller Name: ELLA JACOBO; Caller Number: Norberto , M Hi Dr. Luis , During a pre-visit planning chart review, I noted the following documentation in the medical record: 09/13/2022 office note - The patient reports that she was diagnosed with depression and anxiety and states that she has been doing well. She denies being diagnosed with bipolar disorder. 09/13/2022 phq9-7 le 4 11/25/2022 office note-2. Depression, unspecified (F32.A: [...] medications as prescribed, voices effectiveness with medication. LE-7 completed with positive findings. Risk score of [...] feel free to contact me at extension [phone]. Thank you! SAMIR Felix, RN, CCM, CCDS, CCDS-O -- From: Janelle POSEY, Fly Jean Baptiste To: Beka LY, Alesia; Sent: 09/13/2023 08:35:24 EDT Subject: RE: Pre-Visit Planning Caller Name: ELLA JACOBO; Caller Number: Norberto , M Major depressive disorder, recurrent, mild Please add Normal [address] [facility] Outside Operativeon 09-08-20 23 Outside Operative [id number] 139#1.00TIFF Normal [facility] Basic metabolic 2000 panelon 09-07-2023 Anion gap [Moles/Vol] 13 mmol/L 10 - 20 mmol/L [facility] Calcium [Mass/Vol] 9.6 mg/dL 8.6 - 10.3 mg/dL [facility] Chloride [Moles/Vol] 103 mmol/L 98 - 107 mmol/L [facility] CO2 [Moles/Vol] 24 mmol/L 21 - 32 mmol/L [facility] Creatinine [Mass/Vol] 0.64 mg/dL 0.50 - 1.05 mg/dL [facility] GFR/1.73 sq M.predicted MDRD (S/P/Bld) [Vol rate/Area] - PINF [facility] Comment on above: Calculations of henry mated GFR are performed using the 2020 CKD-EPI Study Refit equation without the race variable for the IDMS-Traceable creatinine methods. https://jasn.asnjournals.org/content/early//ASN.7230486 988 Glucose [Mass/Vol] 98 mg/dL 74 - 99 mg/dL [facility] Interpretation and review of laboratory results Normal [facility] Potassium [Moles/Vol] 3.9 mmol/L 3.5 - 5.3 mmol/L [facility] Sodium [Moles/Vol] 136 mmol/L 136 - 145 mmol/L [facility] Urea nitrogen [Mass/Vol] 10 mg/dL 6 - 23 mg/dL [facility] Anion gap [Moles/Vol] 13 mmol/L Normal 10-20 [facility] Comment on above: Performed By: #### 2 4321-2 #### GEOVANI Roe ([id number]) [facility] [place] [address] [place] [address] Calcium [Mass/Vol] 9.6 mg/dL Normal 8.6-10.3 [facility] Comment on above: Performed By: #### 2 4321-2 ###Salazar Roe ([id number]) [facility] ([facility]) [address] [place] [address] Chloride [Moles/Vol] 103 mmol/L Normal 98-[address] [facility] Comment on above: Performed By: #### 2 4321-2 #### GEOVANI Roe ([id number]) [facility] ([facility]) [address] [place] [address] CO2 [Moles/Vol] 24 mmol/L Normal 21-32 [facility] Comment on above: Performed By: #### 2 4321-2 #### GEOVANI Roe ([id number]) [facility] ([facility]) [address] [place] [address] Creatinine [Mass/Vol] 0.64 mg/dL Normal 0.50-1.05 [facility] Comment on above: Performed By: #### 2 4321-2 #### GEOVANI Roe ([id number]) [facility] ([facility]) [address] [place] [address] GFR/1.73 sq M.predicted MDRD (S/P/Bld) [Vol rate/Area] mL/min/{1.73_m2} Normal >60 [facility] Comment on above: Result Comment: Calc ulations of estimated GFR are performed using the 2020 CKD-EPI Study Refit equation without the race variable for the IDMS-Traceable creatinine methods. https://jasn.asnjournals.org/content//ASN.0072056 988 Performed By: #### 2 4321-2 #### GEOVANI Roe ([id number]) [facility] ([facility]) [address] [place] [address] Glucose [Mass/Vol] 98 mg/dL Normal 74-99 [facility] Comment on above: Performed By: #### 2 4321-2 #### GEOVANI Roe ([id number]) [facility] ([facility]) [address] [place] [address] Potassium [Moles/Vol] 3.9 mmol/L Normal 3.5-5.3 [facility] Comment on above: Performed By: #### 2 4321-2 #### GEOVANI Roe ([id number]) [facility] ([facility]) [address] [place] [address] Sodium [Moles/Vol] 136 mmol/L Normal 136-145 [facility] Comment on above: Performed By: #### 2 4321-2 #### GEOVANI Roe ([id number]) [facility] ([facility]) [address] [place] [address] Urea nitrogen [Mass/Vol] 10 mg/dL Normal 6-23 [facility] Comment on above: Performed By: #### 2 4321-2 #### GEOVANI Roe ([id number]) [facility] ([facility]) [address] [place] [address] [facility]IAC CATHETER[facility]ATION - CORONARY [facility] [employer] [employer] [address] [place] [address] Cardiovascular Catheterization Report Patient Name: ELLA JACOBO Performing Physician: [id number] Jansen MD Study Date: 09/07/2023 Verifying Physician: Lewis Jansen MD MRN/PID: [id number] Biosecurity Officer: Ordering Provider: Lewis JANSEN Date of /Age: 1210/17/1960 / 62 years Fellow: Gender: F Fellow: Study: Case Aborted Indications: ELLA JACOBO is a 63 year old female [...] a modified Seldinger technique. Subsequently a 6 Tajik sheath was placed in the right femoral artery. After infiltration with 2% Lidocaine, a second arterial access was obtained via the left femoral artery with a modified Seldinger technique and a 4 Tajik sheath was placed. After completion of the [...] mid Right Coronary Artery. 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 Coronary Interventions: Angiography reveals a 100% stenosis [...] Angioplasty, Right Coronary addl branch major Artery (PCI)-02302. 39299 Tiffany Jansen MD Performing Physician Final Normal [facility] CBC panel Auto (Bld)on 09-07 Erythrocyte distribution width (RBC) [Ratio] 12.3 % 11.5 - 14.5 % [facility] Hematocrit (Bld) [Volume fraction] 42.3 % 36.0 - 46.0 % [facility] Hemoglobin (Bld) [Mass/Vol] 14.4 g/dL 12.0 - 16.0 g/dL [facility] Interpretation and review of laboratory results Normal [facility] MCH (RBC) [Entitic mass] 31.9 pg 26.0 - 34.0 pg [facility] MCHC (RBC) [Mass/Vol] 34.0 g/dL 32.0 - 36.0 g/dL [facility] MCV (RBC) [Entitic vol] 94 fL 80 - 100 fL [facility] Nucleated RBC/100 WBC (Bld) [Ratio] 0.0 % [facility] Platelet mean volume (Bld) [Entitic vol] 9.5 fL 7.5 - 11.5 fL [facility] Platelets (Bld) [#/Vol] 231 10*3/uL [facility] RBC (Bld) [#/Vol] 4.51 10*6/uL [facility] WBC (Bld) [#/Vol] 6.0 10*3/uL [facility] Erythrocyte distribution width (RBC) [Ratio] 12.3 % Normal 11.5-14.5 [facility] Comment on above: Performed By: #### 5 8410-2 #### GEOVANI Roe ([id number]) [facility] [address] [place] [address] Hematocrit (Bld) [Volume fraction] 42.3 % Normal 36.0-46.0 [facility] Comment on above: Performed By: #### 5 8410-2 #### GEOVANI Roe ([id number]) [facility] ([facility]) [address] [place] [address] 51242 Hemoglobin (Bld) [Mass/Vol] 14.4 g/dL Normal 12.0-16.0 [facility] Comment on above: Performed By: #### 5 8410-2 #### GEOVANI Roe ([id number]) [facility] ([facility]) [address] [place] [address] 91413 MCH (RBC) [Entitic mass] 31.9 pg Normal 26.0-34.0 [facility] Comment on above: Performed By: #### 5 8410-2 #### GEOVANI Roe ([id number]) [facility] ([facility]) [address] [place] [address] 08841 MCHC (RBC) [Mass/Vol] 34.0 g/dL Normal 32.0-36.0 [facility] Comment on above: Performed By: #### 5 8410-2 #### GEOVANI Roe ([id number]) [facility] ([facility]) [address] [place] [address] 36885 MCV (RBC) [Entitic vol] 94 fL Normal 80-100 [facility] Comment on above: Performed By: #### 5 8410-2 #### GEOVANI Roe ([id number]) [facility] ([facility]) [address] [place] [address] 10204 Nucleated RBC/100 WBC (Bld) [Ratio] 0.0 /100 WBCs Normal 0.0-0.0 [facility] Comment on above: Performed By: #### 5 8410-2 #### GEOVANI Roe ([id number]) [facility] [address] [place] [address]39 Platelet mean volume (Bld) [Entitic vol] 9.5 fL Normal 7.5-11.5 [facility] Comment on above: Performed By: #### 5 8410-2 #### GEOVANI Roe ([id number]) [facility] [address] [place] [address]7749 Platelets (Bld) [#/Vol] 231 x10*3/uL Normal 150-450 [facility] Comment on above: Performed By: #### 5 8410-2 #### GEOVANI Roe ([id number]) [facility] ([facility]) [address] [place] [address] 29857 RBC (Bld) [#/Vol] 4.51 x10*6/uL Normal 4.00-5.[address] [facility] Comment on above: Performed By: #### 5 8410-2 #### GEOVANI Roe ([id number]) [facility] ([facility]) [address] [place] [address] 68237 WBC (Bld) [#/Vol] 6.0 x10*3/uL Normal 4.4-11.3 [facility] Comment on above: Performed By: #### 5 8410-2 #### GEOVANI Roe ([id number]) [facility] [address] [place] [address] Cardiac catheterization stud yon 09-07-2023 [facility] [address] [place] [address] Cardiovascular Catheterization Report Patient Name: ELLA JACOBO Performing Physician: Lewis Jansen MD Study Date: 09/07/2023 Verifying Physician: Lewis Jansen MD MRN/PID: [id number] Biosecurity Officer: Ordering Provider: Lewis JANSEN Date of /Age: 1210/17/1960 / 62 years Fellow: Gender: F Fellow: Study: Case Aborted Indications: ELLA JACOBO is a 63 year old female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 Performed By: #### 2 975348, 7842830, 5505030, 650824138, 93844663, 9880634, 78006422, 4062324, 7914576 #### [facility] [address] [place] [address] Lymphocytes/100 WBC (Bld) 29.3 % Normal 14.0-50.0 [facility] Comment on above: Order Comment: Order Added by Discern Expert. Performed By: #### 2 158631, 2994664, 4532316, 905406092, 16304586, 0663223, 16356227, 3156996, 1029116 #### [facility] [address] [place] [address] Lymphocytes/Leukocyt es Auto (Bld) [Pure # fraction] 2.0 E9/L Normal 1.0-4.0 [facility] Comment on above: Order Comment: Order Added by Lupe Expert. Performed By: #### 2 657820, 1173553, 8306299, 613388446, 50336061, 5013400, 36577911, 8445908, 8944817 #### [facility] [address] [place] [address] Monocytes/100 WBC (Bld) 5.5 % Normal 4.0-14.0 [facility] Comment on above: Order Comment: Order Added by Lupe Expert. Performed By: #### 2 937692, 6379963, 1026053, 268958118, 10835676, 7233991, 26955816, 4746623, 5983575 #### [facility] [address] [place] [address] Monocytes/Leukocytes Auto (Bld) [Pure # fraction] 0.4 E9/L Normal 0.2-1.0 [facility] Comment on above: Order Comment: Order Added by Lupe Expert. Performed By: #### 2 199055, 6005583, 4492309, 622794605, 98977394, 6970459, 64285424, 7453829, 0896289 #### [facility] [address] [place] [address] Neutrophils/100 WBC (Bld) 61.4 % Normal 36.0-75.0 [facility] Comment on above: Order Comment: Order Added by Discern Expert. Performed By: #### 2 725485, 9246189, 2667060, 192240417, 45530591, 3881732, 75531666, 1677627, 3577610 #### [facility] [address] [place] [address] Neutrophils/Leukocyt es Auto (Bld) [Pure # fraction] 4.1 E9/L Normal 2.0-7.5 [facility] Comment on above: Order Comment: Order Added by Discern Expert. Performed By: #### 2 083602, 7470660, 3048113, 594533298, 92451391, 7644668, 56528379, 3865952, 9721962 #### [facility] [address] [place] [address] BMPon 09-01-2023 Anion gap [Moles/Vol] 11 mmol/L Normal 6-16 [facility] Comment on above: Performed By: #### 2 161579, 5447279, 1112101, 840512742, 86940998, 5211183, 26303765, 4067005, 4210119 #### [facility] [address] [place] [address] Calcium [Mass/Vol] 8.7 mg/dL Low 8.9-11.1 [facility] Comment on above: Performed By: #### 2 596114, 2566355, 4014734, 101033742, 91700016, 3497620, 38534313, 7203937, 2418778 #### [facility] [address] [place] [address] Chloride [Moles/Vol] 102 mmol/L Normal 101-[address] [facility] Comment on above: Performed By: #### 2 383829, 4527531, 7515531, 346428429, 71530764, 3414943, 57777958, 3717499, 6203784 #### [facility] [address] [place] [address] CO2 [Moles/Vol] 21 mmol/L Normal 21-31 [facility] Comment on above: Performed By: #### 2 484597, 5298609, 0571678, 702564568, 65081365, 6566076, 90534257, 9171025, 2853889 #### [facility] [address] [place] [address] Creatinine [Mass/Vol] 0.7 mg/dL Normal 0.5-1.3 [facility] Comment on above: Performed By: #### 2 176450, 0049294, 0574606, 759977233, 55813802, 5499330, 12614741, 4110455, 0537149 #### [facility] [address] [place] [address] Glucose [Mass/Vol] 166 mg/dL Normal 55-199 [facility] Comment on above: Result Comment: If t his glucose result represents a fasting glucose, interpretation should refer to the following reference range: 55-99 mg/dL Performed By: #### 2 014434, 7462768, 0653196, 328504047, 17090236, 5015329, 42822357, 8768511, 1199708 #### [facility] [address] [place] [address] Potassium [Moles/Vol] 2.7 mmol/L Abnormal 3.5-5.3 [facility] Comment on above: Result Comment: Crit ical Result S_K:2.7 Called to SENAIT LEI AT by SHERRILL KELLEY And Read Back For Confirmation at: 09/01/2023 20:07:39\Critical Result verified by repeat analysis Performed By: #### 2 587377, 0747847, 1125469, 130663597, 58414675, 6680498, 46765156, 0679886, 6764429 #### [facility] [address] [place] [address] Sodium [Moles/Vol] 131 mmol/L Low 135-145 [facility] Comment on above: Performed By: #### 2 589711, 0828016, 4242496, 045123341, 99422187, 3724617, 79913514, 6235810, 3125575 #### [facility] [address] [place] [address] Urea nitrogen [Mass/Vol] 8 mg/dL Normal 5-21 [facility] Comment on above: Performed By: #### 2 139467, 1270070, 7440125, 966262533, 34428808, 6342958, 23745153, 9603752, 2223476 #### [facility] [address] [place] [address] Urea nitrogen/Creatinine [Mass ratio] 11 No Units Normal 10-20 [facility] Comment on above: Performed By: #### 2 148576, 1947425, 7869870, 051784204, 45415531, 4953944, 05266293, 0580984, 3949997 #### [facility] [address] [place] [address] CBC w/ Auto Diffon 3 Erythrocyte distribution width (RBC) [Ratio] 13.3 % Normal 10.9-14.2 [facility] Comment on above: Performed By: #### 2 351670, 2721441, 1431531, 930887551, 85451751, 2912885, 18095656, 1089073, 5342547 #### [facility] [address] [place] [address] Hematocrit (Bld) [Volume fraction] 38.5 % Normal 34.0-46.0 [facility] Comment on above: Performed By: #### 2 199983, 1977527, 3518802, 702291404, 85765164, 7537382, 82639224, 8092848, 0828850 #### [facility] [address] [place] [address] Hemoglobin (Bld) [Mass/Vol] 13.1 g/dL Normal 12.0-16.0 [facility] Comment on above: Performed By: #### 2 810255, 8692763, 6938464, 410085083, 91184416, 5309667, 92284787, 6523823, 1038648 #### [facility] [address] [place] [address] MCH (RBC) [Entitic mass] 31.9 pg Normal 27.0-34.0 [facility] Comment on above: Performed By: #### 2 969429, 3487202, 9753828, 260967963, 85844227, 9178269, 78213466, 8484099, 1127914 #### [facility] [address] [place] [address] MCHC (RBC) [Mass/Vol] 34.1 g/dL Normal 31.4-36.0 [facility] Comment on above: Performed By: #### 2 731243, 0520643, 5324101, 557472427, 58546432, 5559089, 37102469, 1972674, 4767880 #### [facility] [address] [place] [address] MCV (RBC) [Entitic vol] 93.5 fL Normal 80.0-100.0 [facility] Comment on above: Performed By: #### 2 213989, 0701211, 6625825, 643643943, 34621853, 6260864, 95053699, 6926802, 0747110 #### [facility] [address] [place] [address] Platelet mean volume (Bld) [Entitic vol] 8.0 fL Normal 6.4-10.8 [facility] Comment on above: Performed By: #### 2 273909, 8677125, 8882349, 384100056, 24568185, 0102015, 51908038, 0061912, 3656968 #### [facility] [address] [place] [address] Platelets (Bld) [#/Vol] 240.0 E9/L Normal 150.0-500.0 [facility] Comment on above: Performed By: #### 2 688614, 0046566, 5725160, 273831867, 19761131, 3437125, 29013470, 3548122, 4515963 #### [facility] [address] [place] [address] RBC (Bld) [#/Vol] 4.1 E12/L Low 4.3-5.9 [facility] Comment on above: Performed By: #### 2 880250, 7702371, 8504956, 183937670, 69664946, 2565039, 44478448, 1532045, 7502221 #### [facility] [address] [place] [address] WBC corrected for nucl RBC Auto (Bld) [#/Vol] 6.8 E9/L Normal 4.0-11.0 [facility] Comment on above: Performed By: #### 2 053894, 3005070, 9608844, 520507439, 74019555, 4228143, 69918929, 3800468, 4830701 #### [facility] [address] [place] [address] CHEMISTRYOrdered By: SYSTEM SYSTEM on 09-01-2023 Troponin [...] Use, Shivani Margo, June 2018) Albumin [Mass/Vol] 3.5 g/dL Normal [...] rate/Area] 97 mL/min/1.73 m2 Normal >=59mL/min/1.73 m2 [facility] Chem S Comment on above: Interpretive Data: [...] - 2.4 mg/dL [facility] Potassium [Moles/Vol] 2.7 mmol/L Invalid Interpretation Code 3.5 - 5.3 mmol/L [facility] Comment on above: Result Comment: Crit ical Result S_K:2.7 Called to SENAIT LEI AT ER by SHERRILL KELLEY And Read Back For Confirmation at: 09/01/2023 20:07:39\Critical Result verified by repeat analysis Protein [Mass/Vol] 6.9 g/dL Normal 6.0 - 7.8 gm/dL F [facility] Sodium [Moles/Vol] 131 mmol/L Low 135 - 145 mmol/L [facility] Troponin I.cardiac [Mass/Vol] 8.20 pg/mL Low 10.10 - 27.10 pg/mL [facility] Comment on above: Interpretive Data: T he 95% CI (Confidence Interval) PPV (Positive Predictive Value) for myocardial infarction in females is 38 pg/mL, in males 51 pg/mL. The results should be used in conjunction with clinical conditions of myocardial infarction. (Access High Sensitivity Troponin I Instructions For Use, Shivani [place], June 2018) Urea nitrogen [Mass/Vol] 8 mg/dL Normal 5 - 21 mg/dL [facility] Urea nitrogen/Creatinine [Mass ratio] 11 mg/mg Normal 10 - 20 [facility] COAGULATIONOrdered By: Yoli Scruggs on 09-01-2023 aPTT Coag (PPP) [Time] 31.9 s Normal 25.1 - 36.5 second(s) [facility] Auto Coag Comment on above: Interpretive Data: [...] the same coagulation reagent and instrumentation as [facility]. Currently there are no coagulation studies available worldwide for children to 14 days, and no normal ranges. Heparin therapeutic range (represented by Anti-Factor Xa activity of 0.2 - 0.4 U/mL) corresponds to PTT of 56.6 - 109.0 sec. INR Coag (PPP) [Relative time] 1.0 {INR} Invalid Interpretation Code [facility] Auto Coag Comment on above: Interpretive Data: I NR results are specifically intended to assess patients stabilized on long-term Anticoagulation therapy suggested INR s Less Intensive Anticoagulation 2.0 3.0 Conventional Range 3.0 4.5 PT Coag (PPP) [Time] 11.5 s Normal 9.4 - 1 2.5 second(s) [facility] Auto Coag Comment on above: Interpretive Data: [...] the same coagulation reagent and instrumentation as [facility]. Currently there are no coagulation studies available worldwide for children to 14 days, and no normal ranges. Consent for Treatmenton 08-14 Consent for Treatment [id number] Normal [facility] ED Clinical Summaryon 2022 ED Clinical Summary [place] [id number] ED Clinical Summary Person Information [facility]: [facility] Age: 62 Years : 1960 Sex: Female Language: Djiboutian PCP: Fly Luis MD Marital Status: Visit Id: Visit Reason: Nausea; Chest pain; CHEST PAIN Speciality: Acuity: 2 Enc Type: Observation Med Service: Medical Arrival: 09/01/2023 18:57:13 Discharge: LOS: 000 02:57 Checkin: 09/01/2023 18:57:13 Checkout: 09/01/2023 21:54:30 Dispo Type: Admitted as IP to this [facility] EVENTS: Event Name Event Status Request [...] 09/01/2023 20:53:46 09/01/2023 20:53:46 09/01/2023 20:53:47 ADDRESS: [address] [place] [address] [id number] [facility] DOC NOTES: MEDICAL INFORMATION: Prescriptions Given: [...] obstructive pulmonary disease); 4:HTN (hypertension), benign Normal [facility] ED Note-Physicianon 09-01-20 ED Note-Physician Basic Information Time Seen: Sarah Friedman DO 09/01/2023 19:01 Chief Complaint Pt reports she was eating dinner around 1800 when she started having chest pain with associated nausea. FL this year in june, 1 stent placed by joyce. +thinners. 4 ASA and 1 nitro given by [facility] RN. History of Present Illness Patient is a 62-year-old female with past medical history of hypertension, hyperlipidemia, COPD, CAD status post stenting presenting to the ED for evaluation of chest pain with associated nausea. Patient had a stent placed earlier this year in June by Dr. Jansen, states she still has some blockages and they were planning to do a staged PCI at [place]. Patient states she was eating dinner and [...] and Complexity of Problems Differential Diagnosis: [] [facility] Data External documents reviewed: [] My [...] Piggyback, q2hr (more content not included)... Normal [facility] Comment on above: Result Comment: Elec tronically Signed By: Sarah Friedman DO\.br\Date and Time Signed: 09/01/23 21:52 EDT ED Patient Education Noteon 09-01-2023 ED Patient Education Note Normal [facility] ED Patient Summaryon 023 ED Patient Summary [place] [id number] Patient Discharge Instructions Person Information Name: ELLA JACOBO Age: 62 Years Arrival Date: 09/01/2023 18:57:13 Discharge Diagnosis: 1:Chest pain; 2:Hypokalemia; 3:COPD (chronic obstructive pulmonary disease); 4:HTN (hypertension), benign Primary Care Physician: Fly Luis MD Provider Information Primary Provider: Sarah Friedman DO [employer] Worker Leader:None The exam and treatment you received in the Emergency Department were for an urgent problem and are not intended as complete care. It is important that you follow up with a doctor, nurse practitioner, or physician?s central supply assistant for ongoing care. If your symptoms become worse or you do not improve as expected and you are unable to reach your usual health care provider, you should return to the Emergency Department. We are available 24 hours a day. ELLA JACOBO has been given the following list [...] opioids can be used to help relieve ijsadhrw-yy-brbpgm pain and are often prescribed following a [...] be struggling with addiction, tell your health caregivers homecare and ask for guidance or call [employer] National Helpline at 8-982-196-LGVE. v Source: US Department of Health and Human Services/Center for Disease Control & Prevention Glendy (more content not included)... Normal [facility] HEMATOLOGYOrdered By: SYSTEM SYSTEM on 09-01-2023 Basophils/100 WBC (Bld) 0.7 % Normal 0.0 - 2.0 % FT [...] - 7.5 E9/L [facility] HemeAutoSS HEMATOLOGYOrdered By: Roosevelt Mcmillan on 09-01-2023 Erythrocyte distribution width (RBC) [...] 34.1 g/dL Normal 31.4 - 36.0 gm/dL [facility]eAutoSS MCV (RBC) [Entitic vol] 93.5 fL Normal 80.0 - 100.0 fL [facility]eAutoSS Platelet mean volume (Bld) [Entitic vol] 8.0 fL Normal 6.4 - 10.8 fL [facility]eAutoSS Platelets (Bld) [#/Vol] 240.0 E9/L Normal 150.0 - 500.0 E9/L [facility]eAutoSS RBC (Bld) [#/Vol] 4.1 E12/L Low 4.3 - 5.9 E12/L [facility] HemeAutoSS WBC corrected for nucl RBC Auto (Bld) [#/Vol] 6.8 E9/L Normal 4.0 - 11.0 E9/L [facility] HemeAutoSS Hep Func Panelon 09-01-2023 Bilirubin.indirect [Mass or moles/Vol] UTC Abnormal 0.1-0.9 [facility] Comment on above: Result Comment: Resu lt verified by Discern Rule. Performed result UTC (Unable to Calculate) was sent as an Alpha code due the inability to calculate a valid numeric value. Performed By: #### 2 723531, 5001429, 2901949, 561097127, 38610201, 8849814, 74643229, 4527213, 7792796 #### [facility] [address] [place] [address] Albumin [Mass/Vol] 3.5 g/dL Normal 3.3-5.0 [facility] Comment on above: Performed By: #### 2 959129, 6306452, 5509456, 189042988, 29658190, 1369524, 49353929, 9105242, 9421010 #### [facility] [address] [place] [address] Albumin/Globulin (S) [Mass conc ratio] 1.0 Low 1.1-2.2 [facility] Comment on above: Performed By: #### 2 236401, 6274127, 8583934, 328712222, 15434294, 8499848, 70444340, 5314062, 2237218 #### [facility] [address] [place] [address] ALP [Catalytic activity/Vol] 136 Int._Unit/L High 21-98 [facility] Comment on above: Performed By: #### 2 999446, 8960784, 6754260, 297727699, 24870917, 5579654, 93255603, 7561258, 1876280 #### [facility] [address] [place] [address] ALT No additional P-5'-P [Catalytic activity/Vol] 20 Int._Unit/L Normal 6-46 [facility] Comment on above: Performed By: #### 2 927901, 3405624, 4891791, 462060459, 54178808, 3385454, 51333880, 5366797, 8054456 #### [facility] [address] [place] [address] AST [Catalytic activity/Vol] 24 Int._Unit/L Normal 5-43 [facility] Comment on above: Performed By: #### 2 304705, 0126627, 2216844, 877658641, 80396272, 7357068, 59613947, 0939621, 4943404 #### [facility] [address] [place] [address] Bilirubin [Mass/Vol] 0.1 mg/dL Normal 0.0-1.[address] [facility] Comment on above: Performed By: #### 2 098324, 9143732, 3665002, 664748000, 50231248, 9614130, 92130559, 1383053, 9277808 #### [facility] [address] [place] [address] Globulin (S) [Mass/Vol] 3.4 g/dL Normal 1.4-4.0 [facility] Comment on above: Performed By: #### 2 060053, 2283396, 9828925, 168061311, 92013131, 4564991, 31149521, 2675342, 9370627 #### [facility] [address] [place] [address] Protein [Mass/Vol] 6.9 g/dL Normal 6.0-7.8 [facility] Comment on above: Performed By: #### 2 759707, 3270856, 4826082, 367860144, 79024187, 1841234, 71663173, 7006352, 9421517 #### [facility] [address] [place] [address] Bilirubin.direct [Mass/Vol] mg/dL Normal 0.1-0.4 [facility] Comment on above: Performed By: #### 2 194806, 6947220, 5657068, 037578912, 51302015, 9408402, 40635695, 6398321, 1704999 #### [facility] [address] [place] [address] Magnesiumon 09-01-2023 Magnesium [Mass/Vol] 1.8 mg/dL Normal 1.3-2.[address] [facility] Comment on above: Performed By: #### 2 487712, 5598917, 4830625, 531381195, 34122331, 0192203, 90125707, 0558329, 7243353 #### [facility] [address] [place] [address] PT & PTTon 09-01-2023 aPTT Coag (PPP) [Time] 31.9 second(s) Normal 25.1-36.5 [facility] Comment on above: Result Comment: Para meter [...] the same coagulation reagent and instrumentation as [facility]. Currently there are no coagulation studies available worldwide for children to 14 days, and no normal ranges. Heparin therapeutic range (represented by Anti-Factor Xa activity of 0.2 - 0.4 U/mL) corresponds to PTT of 56.6 - 109.0 sec. Performed By: #### 2 256220, 5534903, 1530261, 536357639, 60751180, 3827733, 92816706, 6210404, 4987096 #### [facility] [address] [place] [address] INR Coag (PPP) [Relative time] 1.0 {INR} Invalid Interpretation Code [facility] Comment on above: Result Comment: INR results are specifically intended to assess patients stabilized on long-term Anticoagulation therapy suggested INR?s ?Less Intensive Anticoagulation? 2.0 ? 3.0 Conventional Range 3.0 ? 4.5 Performed By: #### 2 081165, 4410091, 9209094, 320753573, 59845131, 1273805, 99969610, 1479794, 1319820 #### [facility] [address] [place] [address] PT Coag (PPP) [Time] 11.5 second(s) Normal 9.4-12.5 [facility] Comment on above: Result Comment: 15 d [...] the same coagulation reagent and instrumentation as [facility]. Currently there are no coagulation studies available worldwide for children to 14 days, and no normal ranges. Performed By: #### 2 696804, 0356534, 6978002, 302798580, 26887330, 2490017, 39423595, 9740929, 2556943 #### [facility] [address] [place] [address] Pre-Arrival Noteon Pre-Arrival Note Pre-Arrival Summary Name: REPLACED BY [facility], Current Date: 09/01/2023 18:58:45 EDT Gender: Female Date of : Age: 62 Pre-Arrival Type: EMS ETA: 09/01/2023 19:16:00 EDT Primary Care Physician: Presenting Problem: CP Pre-Arrival User: Micaela Daugherty Referring Source: Location: PA Completion Date/Time: 09/01/2023 00:00:[address] [facility] Emergency Department Pre-Hospital Report Form ___ Vital Signs: bp 109/42, hr 103, spo2 97% RA Pre-Hospital Report: Treatment in Route: 324mg ASA, (1) nitro Response to Treatment: Misc. Issues: FL in June [facility] Troponin 0 Hr.on 09-01-2023 Troponin I.cardiac [Mass/Vol] 8.20 pg/mL Low 10.10-27.10 [facility] Comment on above: Result Comment: The 95% CI (Confidence Interval) PPV (Positive Predictive Value) for myocardial infarction in females is 38 pg/mL, in males 51 pg/mL. The results should be used in conjunction with clinical conditions of myocardial infarction. ([employer] High Sensitivity Troponin I Instructions For Use, [place], June 2018) Performed By: #### 2 318601, 2345606, 2674048, 183632007, 94200151, 3104913, 58373023, 5329698, 2320059 #### [facility] [address] [place] [address] Troponin 3 Hr.on 09-01-2023 Troponin I.cardiac [Mass/Vol] 9.00 pg/mL Low 10.10-27.10 [facility] Comment on above: Result Comment: The 95% CI (Confidence Interval) PPV (Positive Predictive Value) for myocardial infarction in females is 38 pg/mL, in males 51 pg/mL. The results should be used in conjunction with clinical conditions of myocardial infarction. ([employer] High Sensitivity Troponin I Instructions For Use, [place], June 2018) Performed By: #### 2 171745, 0506891, 1706607, 106265648, 78585728, 7704548, 98314541, 2574590, 9921580 #### [facility] [address] [place] [address] eGFRon 09-01-2023 GFR/1.73 sq M.predicted among non-blacks MDRD (S/P/Bld) [Vol rate/Area] 97 mL/min/1.73 m2 Normal >=59 [facility] Comment on above: Order Comment: Order Added by Discern Expert. Result Comment: [employer] [place] kidney disease could be indicated at eGFR's of less than 60 mL/min/1.73m2. Kidney failure is indicated at less than 15 mL/min/1.73m2. Performed By: #### 2 369522, 0510820, 6591493, 317312787, 52143101, 2053148, 62362383, 4773647, 9611757 #### [facility] [address] [place] [address] Auto Diffon 08-08-2023 Basophils/100 WBC (Bld) 1.2 % Normal 0.0-2.0 [facility] Comment on above: Order Comment: Order Added by Discern Expert. Performed By: #### 2 281084, 27809955, 0095638, 54104607, 31026594, 03392021, 9038281 ####[facility] [address] [place] [address] Basophils/Leukocytes Auto (Bld) [Pure # fraction] 0.1 E9/L Normal 0.0-0.2 [facility] Comment on above: Order Comment: Order Added by Discern Expert. Performed By: #### 2 051808, 53111083, 8399515, 46628095, 99892428, 74312018, 7798793 ####[facility] [address] [place] [address] Eosinophils/100 WBC (Bld) 3.4 % Normal 0.0-8.0 [facility] Comment on above: Order Comment: Order Added by Discern Expert. Performed By: #### 2 362901, 18754341, 4756783, 12298498, 19740338, 52832890, 6345618 ####[place] [address] [place] [address] Eosinophils/Leukocyt es Auto (Bld) [Pure # fraction] 0.2 E9/L Normal 0.0-0.5 [facility] Comment on above: Order Comment: Order Added by Discern Expert. Performed By: #### 2 611132, 29486096, 6195973, 02410118, 40214076, 54960940, 1979425 ####[address] [address] [place] [address] Lymphocytes/100 WBC (Bld) 30.2 % Normal 14.0-50.0 [facility] Comment on above: Order Comment: Order Added by Discern Expert. Performed By: #### 2 731435, 29951489, 6190099, 72290563, 38185729, 68593444, 5670467 ####[address] [address] Lymphocytes/Leukocyt es Auto (Bld) [Pure # fraction] 1.9 E9/L Normal 1.0-4.0 [facility] Comment on above: Order Comment: Order Added by Discern Expert. Performed By: #### 2 941351, 23376407, 2258815, 55893358, 72725237, 33043331, 0736667 ####[place] [address] [place] [address] Monocytes/100 WBC (Bld) 8.3 % Normal 4.0-14.0 [facility] Comment on above: Order Comment: Order Added by Discern Expert. Performed By: #### 2 221885, 23280387, 8827505, 15752030, 03831774, 46394264, 3465481 ####[address] [place] [address] Monocytes/Leukocytes Auto (Bld) [Pure # fraction] 0.5 E9/L Normal 0.2-1.0 [facility] Comment on above: Order Comment: Order Added by Discern Expert. Performed By: #### 2 108916, 86055563, 0582468, 62811325, 27958288, 98364838, 4119903 ####[facility] [address] [place] [address] Neutrophils/100 WBC (Bld) 56.9 % Normal 36.0-75.0 [facility] Comment on above: Order Comment: Order Added by Discern Expert. Performed By: #### 2 466589, 26078776, 5304669, 40545200, 60571952, 50859146, 9101017 ####[facility] [address] [place] [address] Neutrophils/Leukocyt es Auto (Bld) [Pure # fraction] 3.5 E9/L Normal 2.0-7.5 [facility] Comment on above: Order Comment: Order Added by Lupe Expert. Performed By: #### 2 853285, 42157061, 0522972, 88466600, 67632161, 76628678, 9554998 ####[facility] [address] [place] [address] BMPon 08-08-2023 Creatinine [Mass/Vol] 0.6 mg/dL Normal 0.5-1.3 [facility] Comment on above: Performed By: #### 2 952713, 25207756, 3491906, 22064253, 08793426, 18777443, 1921363 ####[facility] [address] [place] [address] Urea nitrogen [Mass/Vol] 5 mg/dL Normal 5-21 [facility] Comment on above: Performed By: #### 2 859771, 45919905, 4877852, 59802378, 09010784, 56826169, 4123642 ####[facility] [address] [place] [address] Urea nitrogen/Creatinine [Mass ratio] 8 No Units Low 10-20 [facility] Comment on above: Performed By: #### 2 495933, 00404686, 4333871, 16915829, 12499932, 08689718, 8925735 ####[facility] [address] [place] [address] Anion gap [Moles/Vol] 13 mmol/L Normal 6-16 [facility] Comment on above: Performed By: #### 2 108404, 35459321, 5873902, 95969669, 93712550, 28683557, 6471114 ####[facility] [address] [place] [address] Calcium [Mass/Vol] 9.6 mg/dL Normal 8.9-11.1 [facility] Comment on above: Performed By: #### 2 087945, 78254701, 8448471, 78690710, 22339314, 66117911, 7817949 ####[facility] [address] [place] [address] Chloride [Moles/Vol] 107 mmol/L Normal 101-[address] [facility] Comment on above: Performed By: #### 2 196434, 44251692, 3491441, 71332160, 01839385, 09981076, 4217032 ####[facility] [address] [place] [address] CO2 [Moles/Vol] 23 mmol/L Normal 21-31 [facility] Comment on above: Performed By: #### 2 434642, 33387427, 5776870, 21866636, 52513800, 97113915, 3572916 ####[facility] [address] [place] [address] Glucose [Mass/Vol] 100 mg/dL Normal 55-199 [facility] Comment on above: Result Comment: If t his glucose result represents a fasting glucose, interpretation should refer to the following reference range: 55-99 mg/dL Performed By: #### 2 473424, 00572610, 3022638, 37653577, 08784726, 64570785, 8965422 ####[facility] [address] [place] [address] Potassium [Moles/Vol] 3.1 mmol/L Low 3.5-5.3 [facility] Comment on above: Performed By: #### 2 601508, 40361030, 5851447, 42660034, 70142145, 93705380, 4739081 ####[facility] [address] [place] [address] Sodium [Moles/Vol] 140 mmol/L Normal 135-145 [facility] Comment on above: Performed By: #### 2 456835, 53515211, 6109101, 29639372, 27035572, 09828285, 0521112 ####[address] [place] [address] BNPon 08-08-2023 Int Ctr BNP Pass Normal [facility] Comment on above: Performed By: #### 2 098687, 86974047, 6058761, 57653298, 26524786, 09211735, 9510298 ####[address] [address] Natriuretic peptide B (Bld) [Mass/Vol] 210 pg/mL High 5-80 [facility] Comment on above: Performed By: #### 2 208616, 62932667, 0943752, 27119677, 65984791, 92484483, 2068654 ####[address] [address] CBC w/ Auto Diffon Erythrocyte distribution width (RBC) [Ratio] 12.4 % Normal 10.9-14.2 [facility] Comment on above: Performed By: #### 2 314352, 91604198, 1986012, 42862095, 22534689, 67066014, 7658245 ####[facility] [address] [place] [address] Hematocrit (Bld) [Volume fraction] 41.3 % Normal 34.0-46.0 [facility] Comment on above: Performed By: #### 2 529422, 03937593, 8988684, 17921889, 85849163, [id number], 1638215 ####[facility] [address] [place] [address] Hemoglobin (Bld) [Mass/Vol] 14.6 g/dL Normal 12.0-16.0 [facility] Comment on above: Performed By: #### 2 203957, 48927837, 3896824, 31390266, 41414647, 93021199, 3726449 ####[facility] [address] [place] [address] MCH (RBC) [Entitic mass] 32.4 pg Normal 27.0-34.0 [facility] Comment on above: Performed By: #### 2 528351, 76140660, 8551663, 48199742, 76261729, 94855445, 4568646 ####[address] [address] MCHC (RBC) [Mass/Vol] 35.4 g/dL Normal 31.4-36.0 [facility] Comment on above: Performed By: #### 2 333530, 09538640, 7953412, 79724604, 27714017, 02543212, 7903839 ####[address] [place] [address] MCV (RBC) [Entitic vol] 91.4 fL Normal 80.0-100.0 [facility] Comment on above: Performed By: #### 2 273563, 21755224, 5223750, 74366549, 03440089, 34513842, 0271869 ####[address] [place] [address] Platelet mean volume (Bld) [Entitic vol] 8.3 fL Normal 6.4-10.8 [facility] Comment on above: Performed By: #### 2 079742, 44680317, 3227322, 72596352, 77585311, 62600814, 2660736 ####[facility] [place] [address] Platelets (Bld) [#/Vol] 258.0 E9/L Normal 150.0-500.0 [facility] Comment on above: Performed By: #### 2 271756, 24672438, 7949896, 82347551, 94921856, 36468119, 7763733 ####[facility] [address] [place] [address] RBC (Bld) [#/Vol] 4.5 E12/L Normal 4.3-5.9 [facility] Comment on above: Performed By: #### 2 168754, 11430957, 1766135, 53698623, 03830861, 77998196, 2418332 ####[facility] [address] [place] [address] WBC corrected for nucl RBC Auto (Bld) [#/Vol] 6.2 E9/L Normal 4.0-11.0 [facility] Comment on above: Performed By: #### 2 880657, 70329618, 3214565, 89466542, 36340628, 40513446, 3277156 ####[facility] [address] [place] [address] CHEMISTRYOrdered By: SYSTEM SYSTEM on 08-08-2023 Anion gap [Moles/Vol] 13 mmol/L Normal 6 - 16 mEq/L [facility] Remisol Calcium [Mass/Vol] 9.6 mg/dL Normal 8.9 - 11.1 mg/dL [facility] Remisol Chloride [Moles/Vol] 107 mmol/L Normal 101 - 111 mmol/ L [facility] Remisol CO2 [Moles/Vol] 23 mmol/L Normal 21 - 31 mmol/L FT Remisol Creatinine [Mass/Vol] 0.6 mg/dL Normal 0.5 - 1.3 mg/dL [facility] Remisol GFR/1.73 sq M.predicted among non-blacks MDRD (S/P/Bld) [Vol rate/Area] 101 mL/min/1.73 m2 Normal >=59mL/min/1.73 m2 [facility] Chem S Glucose [Mass/Vol] 100 mg/dL Normal 55 - 199 mg/dL [facility] Remisol Potassium [Moles/Vol] 3.1 mmol/L Low 3.5 - 5.3 mmol/L [facility] Remisol Sodium [Moles/Vol] 140 mmol/L Normal 135 - 145 mmol/L [facility] Remisol Troponin I.cardiac [Mass/Vol] 9.80 pg/mL Low 10.10 - 27.10 pg/mL [facility] Remisol Urea nitrogen [Mass/Vol] 5 mg/dL Normal 5 - 21 mg/dL [facility] Remisol Urea nitrogen/Creatinine [Mass ratio] 8 mg/mg Low 10 - 20 [facility] Remisol CHEMISTRYOrdered By: Sahra Kelley on 08-08-2023 Natriuretic peptide B (Bld) [Mass/Vol] 210 pg/mL High 5 - 80 pg/mL [facility] HemeManSS COAGULATIONOrdered By: Yoli Scruggs on 08-08-2023 aPTT Coag (PPP) [Time] 35.6 s Normal 25.1 - 36.5 second(s) [facility] Auto Coag INR Coag (PPP) [Relative time] 1.0 {INR} Invalid Interpretation Code [facility] Auto Coag PT Coag (PPP) [Time] 11.7 s Normal 9.4 - 1 2.5 second(s) [facility] Auto Coag Discharge Instructionson Discharge Instructions [id number] 413#1.00CD:127 Normal [facility] ED Clinical Summaryon 2022 ED Clinical Summary [address] [address] ED Clinical Summary Person Information Name: ELLA JACOBO/[facility]_Jose E Age: 62 Years : 1960 Sex: Female Language: Djiboutian PCP: Fly Luis MD Marital Status: Visit Id: Visit [...] 08/08/2023 16:19:29 08/08/2023 16:19:29 08/08/2023 16:19:29 ADDRESS: [address] [place] [id number] [facility] DOC NOTES: MEDICAL INFORMATION: Prescriptions Given: [...] Tablets By Mouth every day. Refills: 1. Mis Prescription (Handicap Placard, 5 years.) Handicap [...] Instructions: Follow up: With: Address: When: Your biomedical equipment specialist In 3 days 08/11/2023 With: Address: When: Fly Luis [address] [place], [place] [address] [address] [facility] ([employer] In 3 days DIAGNOSIS: Dyspnea; Nausea Normal [facility] ED Note-Physicianon 08-08-20 ED Note-Physician Basic Information Time Seen: Arik DOLawrence 08/08/2023 14:28 Chief Complaint Pt nauseous and [...] refills Follow-up With When Contact Information Your biomedical equipment specialist In 3 days 08/11/2023 EDT Additional Instructions: Fly Luis In [address] [place] [address] [facility] (2) Additional Instructions: Problem List/Past Medical History [...] 5 mg (more content not included)... Normal [facility] Comment on above: Result Comment: Elec tronically Signed By: Lawrence Elise DO\.br\Date and Time Signed: 08/08/23 16:05 EDT ED Patient Education Noteon 08-08-2023 ED Patient Education Note Normal [facility] ED Patient Summaryon 023 ED Patient Summary [address] [address] Patient Discharge Instructions Person Information Name: ELLA JACOBO Age: 62 Years Arrival Date: 08/08/2023 14:26:38 Discharge Diagnosis: Dyspnea; Nausea Primary Care Physician: Fly Luis MD Provider Information Primary Provider: Lawrence Elise DO [employer] Worker Leader:None The exam and treatment you received in the Emergency Department were for an urgent problem and are not intended as complete care. It is important that you follow up with a doctor, nurse practitioner, or physician?s central supply assistant for ongoing care. If your symptoms become worse or you do not improve as expected and you are unable to reach your usual health care provider, you should return to the Emergency Department. We are available 24 hours a day. ELLA JACOBO has been given the following list of patient education materials, prescriptions and follow-up instructions: Follow-up Instructions: With: Address: When: Your biomedical equipment specialist In 3 days 08/11/2023 With: Address: When: Fly Luis [facility] [place] [address] [facility] (2) In 3 days In the event that this physician does not participate in your insurance network, please consult with your insurance company to find a nearby participating provider. Patient Education Materials: A MESSAGE TO ALL PATIENTS REGARDING OPIOIDS PRESCRIPTION OPIOIDS: WHAT YOU NEED TO KNOW Prescription opioids can be used to help relieve jvwcknwk-rs-mtvruu pain and are often prescribed following a [...] be struggling with addiction, tell your health caregivers homecare and ask for guidance or call [facility]?S National Helpline at 7-488-842-FBDM. y Source: [place] (more content not included)... Normal [facility] HEMATOLOGYOrdered By: SYSTEM SYSTEM on 08-08-2023 Basophils/100 [...] 41.3 % Normal 34.0 - 46.0 % [facility] HemeAutoSS Hemoglobin (Bld) [Mass/Vol] 14.6 g/dL Normal 12.0 - 16.0 gm/dL FT HemeAutoSS MCH (RBC) [Entitic mass] 32.4 pg Normal 27.0 - 34.0 pg [facility] HemeAutoSS MCHC (RBC) [Mass/Vol] 35.4 g/dL Normal 31.4 - 36.0 gm/dL FT HemeAutoSS MCV (RBC) [Entitic vol] 91.4 fL Normal 80.0 - 100.0 fL [facility] HemeAutoSS Platelet mean volume (Bld) [Entitic vol] 8.3 fL Normal 6.4 - 10.8 fL [facility] HemeAutoSS Platelets (Bld) [#/Vol] 258.0 E9/L Normal 150.0 - 500.0 E9/L [facility] HemeAutoSS RBC (Bld) [#/Vol] 4.5 E12/L Normal 4.3 - 5.9 E12/L [facility] HemeAutoSS WBC corrected for nucl RBC Auto (Bld) [#/Vol] 6.2 E9/L Normal 4.0 - 11.0 E9/L [facility] HemeAutoSS Monitor Recordon 08-08-2023 Monitor Record [id number] 680#1.00CD:127 Normal [facility] PT & PTTon 08-08-2023 aPTT Coag (PPP) [Time] 35.6 second(s) Normal 25.1-36.5 [facility] Comment on above: Result Comment: Para meter [...] the same coagulation reagent and instrumentation as [facility]. Currently there are no coagulation studies available worldwide for children to 14 days, and no normal ranges. Heparin therapeutic range (represented by Anti-Factor Xa activity of 0.2 - 0.4 U/mL) corresponds to PTT of 56.6 - 109.0 sec. Performed By: #### 2 313414, 30492833, 2709657, 02625678, 65572550, 54772853, 7920987 ####[facility] [address] [place] [address] INR Coag (PPP) [Relative time] 1.0 {INR} Invalid Interpretation Code [facility] Comment on above: Result Comment: INR results are specifically intended to assess patients stabilized on long-term Anticoagulation therapy suggested INR?s ?Less Intensive Anticoagulation? 2.0 ? 3.0 Conventional Range 3.0 ? 4.5 Performed By: #### 2 085947, 48661446, 7362288, 49437541, 63394539, 75369534, 4322200 ####[facility] [address] [place] [address] PT Coag (PPP) [Time] 11.7 second(s) Normal 9.4-12.5 [facility] Comment on above: Result Comment: 15 d [...] the same coagulation reagent and instrumentation as [facility]. Currently there are no coagulation studies available worldwide for children to 14 days, and no normal ranges. Performed By: #### 2 705605, 21792828, 8859632, 61621254, 91537758, 75722554, 0022808 ####[facility] [address] [place] [address] Pre-Arrival Noteon Pre-Arrival Note Pre-Arrival Summary Name: JOVAN lares Current Date: 08/08/2023 14:30:03 EDT Gender: Female Date of : Age: 62 Pre-Arrival Type: EMS ETA: 08/08/2023 14:46:00 EDT Primary Care Physician: Presenting Problem: SOB Pre-Arrival User: Benjamin Stephenson RN Referring Source: Location: [place] Completion Date/Time: 08/08/2023 14:17:[address] [facility] Emergency Department Pre-Hospital Report Form ___ Vital Signs: Pre-Hospital Report: Treatment in Route: Response to Treatment: Misc. Issues: Normal [facility] Troponin 0 Hr.on 08-08-2023 Troponin I.cardiac [Mass/Vol] 9.80 pg/mL Low 10.10-27.10 [facility] Comment on above: Result Comment: The 95% CI (Confidence Interval) PPV (Positive Predictive Value) for myocardial infarction in females is 38 pg/mL, in males 51 pg/mL. The results should be used in conjunction with clinical conditions of myocardial infarction. (Access High Sensitivity Troponin I Instructions For Use, Shivani Margo, June 2018) Performed By: #### 2 626997, 21115721, 9674703, 79102672, 19890267, 74592740, 7936207 ####[facility] [address] [place] [address] XR Chest Single Viewon 08-08 XR Chest [...] mGy = na DAP = na Normal [facility] eGFRon 08-08-2023 GFR/1.73 sq M.predicted among non-blacks MDRD (S/P/Bld) [Vol rate/Area] 101 mL/min/1.73 m2 Normal >=59 [facility] Comment on above: Order Comment: Order added by Discern Expert. Result Comment: [employer] [place] kidney disease could be indicated at eGFR's of less than 60 mL/min/1.73m2. Kidney failure is indicated at less than 15 mL/min/1.73m2. Performed By: #### 2 860242, 00962955, 3429905, 97896572, 40119562, 35527348, 5996752 ####[facility] [address] [place] [address] Cardiovascular Reporton 07-15 Cardiovascular Report [id number] 254#3.00CD:127 Normal [facility] Physician Orderon 07-22-2023 Physician Order [id number] 215#1.00CD:127 Normal [facility] Ambulatory Visit Summaryon 0 07-21-2023 Ambulatory Visit Summary ELLA JACOBO :1960 Visit Date:07/21/2023 Ambulatory Visit Instructions Your Care Team Attending Physician - Joyce POSEY, Tiffany Archibald. Primary Care Physician - Fly Luis MD Referring Physician - Fly Luis MD This Is Your Medications List [...] Follow-Up Appointments 2022 2:20 PM EDT With: Fly Luis MD [place]: [place] [id number]- \.br\ Medications\.br\ What How Much When Why [...] legs syndrome)\.br\ Walker as ambulation aid\.br\ \.br\ [facility] Consent for Treatmenton Consent for Treatment [id number] CC#1.00CD:127 Normal [facility] Physician Referralon 023 Physician Referral [id number] 3#1.00CD:127 Normal [facility] Ambulatory Visit Summaryon 0 07-13-2023 Ambulatory Visit Summary ELLA JACOBO :1960 Visit Date:07/13/2023 Ambulatory Visit Instructions Your Diagnosis Hospital discharge follow-up Acute ST elevation myocardial infarction (STEMI), unspecified artery Current smoker BMI 32.0-32.9,adult Class 1 obesity due to excess calories in adult Your Care Team Attending Physician - Fly Luis MD Primary Care Physician - Fly Luis MD. This Is Your Medications List [facility] [...] Follow-Up Appointments 2022 2:00 PM EDT With: Joyce POSEY, Tiffany Chavarria Where: [facility] 2022 2:20 PM EDT With: Janelle POSEY, Fly Jean Baptiste Where: [address] [address]- \.br\ Medications\.br\ What How Much When Why [...] Mouth Every day\.br\ Unchanged Misc Prescription (Handicap Placard, 5 years.) [...] legs syndrome)\.br\ Walker as ambulation aid\.br\ \.br\ [facility] Family Medicine Office/Clini c Noteon 07-13-2023 Family Medicine Office/Clinic Note HPI Staff Patient presents for hospital follow up Juan Pablo Cole Admitted: 07/09/23 Discharged: 07/10/23 Dx [place], had stent placed Any specialists: none Any new meds: yes, all documented PHQ9:-10 LE-9 questions/concerns: wants to discuss potassium c/o being [...] reviewed Ordered: Cardiac Rehab - Ambulatory Referral [facility] Internal Ambulatory Referral 2. Acute ST elevation myocardial infarction (STEMI), unspecified artery (I21.3: ST elevation (STEMI) myocardial infarction of unspecified site) - Stenting place - Cardiology referral placed - Cardiac Rehab placed Ordered: Body Mass Index (BMI) documented 3008F Cardiac Rehab - Ambulatory Referral Current tobacco smoker 1034F Depression Screening Positive 3354F [facility] Internal Ambulatory Referral Most recent diastolic blood [...] tobacco smoker 1034F Depression Screening Positive 3354F [facility] Internal Ambulatory Referral Most recent diastolic blood [...] tobacco smoker 1034F Depression Screening Positive 3354F [facility] Internal Ambulatory Referral Most recent diastolic blood [...] tobacco smoker 1034F Depression Screening Positive 3354F [facility] Internal Ambulatory Referral Most recent diastolic blood [...] BID traZO (more content not included)... Normal [facility] Comment on above: Result Comment: Elec tronically Signed By: Janelle POSEY, Fly Polk.br\Date and Time Signed: 07/13/23 16:23 EDT Discharge Instructionson Discharge Instructions [id number] 03#1.00CD:127 Normal [facility] Cardiovascular Reporton 06-15 Cardiovascular Report [id number] 19#1.00CD:127 Normal [facility] Consent for Procedure/Surger yon 07-11-2023 Consent for Procedure/Surgery [id number] 79#1.00CD:127 Normal [facility] Auto Diffon 07-10-2023 Basophils/100 WBC (Bld) 0.2 % Normal 0.0-2.0 [facility] Comment on above: Order Comment: Order Added by Discern Expert. Performed By: #### 2 267241, 3326124, 1495012, 280627779, 14217526, 4822007, 95781886, 5029795, 6137628 #### [facility] [address] [place] [address] Basophils/Leukocytes Auto (Bld) [Pure # fraction] 0.0 E9/L Normal 0.0-0.2 [facility] Comment on above: Order Comment: Order Added by Discern Expert. Performed By: #### 2 852494, 7542465, 1473504, 025453767, 87405899, 1106056, 63530944, 8717193, 9203513 #### [facility] [address] [place] [address] Eosinophils/100 WBC (Bld) 2.9 % Normal 0.0-8.0 [facility] Comment on above: Order Comment: Order Added by Discern Expert. Performed By: #### 2 567437, 0069740, 0498671, 794889683, 50841937, 4389061, 19144202, 0319014, 8888716 #### [facility] [address] [place] [address] Eosinophils/Leukocyt es Auto (Bld) [Pure # fraction] 0.1 E9/L Normal 0.0-0.5 [facility] Comment on above: Order Comment: Order Added by Discern Expert. Performed By: #### 2 662624, 0578301, 1450026, 870128333, 70158026, 5679812, 40140894, 0630124, 5008641 #### [facility] [address] [place] [address] Lymphocytes/100 WBC (Bld) 34.5 % Normal 14.0-50.0 [facility] Comment on above: Order Comment: Order Added by Discern Expert. Performed By: #### 2 313289, 0486427, 2388912, 174432669, 19050676, 3422248, 56120584, 0980584, 8443072 #### [facility] [address] [place] [address] Lymphocytes/Leukocyt es Auto (Bld) [Pure # fraction] 1.4 E9/L Normal 1.0-4.0 [facility] Comment on above: Order Comment: Order Added by Discern Expert. Performed By: #### 2 367041, 2965700, 2233131, 016931715, 90852897, 1847920, 64564033, 4038834, 9044295 #### [facility] [address] [place] [address] Monocytes/100 WBC (Bld) 11.2 % Normal 4.0-14.0 [facility] Comment on above: Order Comment: Order Added by Discern Expert. Performed By: #### 2 005877, 3402528, 8792983, 923938390, 80564375, 3295836, 38818240, 0333733, 4424686 #### [facility] [address] [place] [address] Monocytes/Leukocytes Auto (Bld) [Pure # fraction] 0.5 E9/L Normal 0.2-1.0 [facility] Comment on above: Order Comment: Order Added by Discern Expert. Performed By: #### 2 408585, 8857298, 7238118, 341714752, 21068004, 5082197, 07009993, 2574748, 6592067 #### [facility] [address] [place] [address] Neutrophils/100 WBC (Bld) 51.2 % Normal 36.0-75.0 [facility] Comment on above: Order Comment: Order Added by Discern Expert. Performed By: #### 2 072379, 4924436, 0170700, 640494570, 06002184, 8877810, 59628979, 4618528, 7395829 #### [facility] [address] [place] [address] Neutrophils/Leukocyt es Auto (Bld) [Pure # fraction] 2.1 E9/L Normal 2.0-7.5 [facility] Comment on above: Order Comment: Order Added by Discern Expert. Performed By: #### 2 996446, 7992766, 3314001, 752645061, 45472046, 4950669, 39104040, 4352105, 6557056 #### [facility] [address] [place] [address] BMPon 07-10-2023 Anion gap [Moles/Vol] 7 mmol/L Normal 6-16 [facility] Comment on above: Performed By: #### 2 326790, 1617168, 9183202, 707297692, 65568105, 6738565, 47768590, 0480092, 5274574 #### [facility] [address] [place] [address] Calcium [Mass/Vol] 8.7 mg/dL Low 8.9-11.1 [facility] Comment on above: Performed By: #### 2 618358, 6696150, 9150964, 527590693, 27207046, 2871105, 11836550, 8201193, 7754021 #### [facility] [address] [place] [address] Chloride [Moles/Vol] 113 mmol/L High 101-111 Fish er [facility] Comment on above: Performed By: #### 2 494769, 2879424, 6021638, 410930238, 43856263, 5185891, 93267614, 7497136, 0958680 #### [facility] [address] [place] [address] CO2 [Moles/Vol] 27 mmol/L Normal 21-31 [facility] Comment on above: Performed By: #### 2 617287, 0466994, 5088027, 554141097, 36819369, 0494605, 28331571, 9922565, 7437905 #### [facility] [address] [place] [address] Creatinine [Mass/Vol] 0.6 mg/dL Normal 0.5-1.3 [facility] Comment on above: Performed By: #### 2 372766, 5980798, 4089925, 250297098, 37447310, 4341585, 98233081, 9974265, 1027761 #### [facility] [address] [place] [address] Glucose [Mass/Vol] 114 mg/dL Normal 55-199 [facility] Comment on above: Result Comment: If t his glucose result represents a fasting glucose, interpretation should refer to the following reference range: 55-99 mg/dL Performed By: #### 2 232640, 0080079, 8799968, 323101367, 09614658, 9714018, 13295740, 0885681, 3563639 #### [facility] [address] [place] [address] Potassium [Moles/Vol] 3.8 mmol/L Normal 3.5-5.3 [facility] Comment on above: Performed By: #### 2 814594, 5757384, 5388501, 892427217, 68642427, 5432686, 51128518, 1651255, 7802573 #### [facility] [address] [place] [address] Sodium [Moles/Vol] 143 mmol/L Normal 135-145 [facility] Comment on above: Performed By: #### 2 059063, 3752998, 0903998, 600083967, 01665163, 5994630, 60826961, 1054908, 0817531 #### [facility] [address] [place] [address] Urea nitrogen [Mass/Vol] 6 mg/dL Normal 5-21 [facility] Comment on above: Performed By: #### 2 816932, 4910648, 9748075, 243002006, 31790382, 1076420, 42707561, 1791287, 8277397 #### [facility] [address] [place] [address] Urea nitrogen/Creatinine [Mass ratio] 10 No Units Normal 10-20 [facility] Comment on above: Performed By: #### 2 792862, 4661354, 2133283, 089683327, 47308644, 1019788, 62055283, 5282029, 3024921 #### [facility] [address] [place] [address] CBC w/ Auto Diffon 3 Erythrocyte distribution width (RBC) [Ratio] 12.8 % Normal 10.9-14.2 [facility] Comment on above: Performed By: #### 2 671519, 6296293, 7817431, 925893472, 00076327, 9914863, 01384917, 3798124, 0953885 #### [facility] [address] [place] [address] Hematocrit (Bld) [Volume fraction] 40.0 % Normal 34.0-46.0 [facility] Comment on above: Performed By: #### 2 373527, 3096158, 6372916, 058777654, 33885350, 2402117, 94197859, 5331433, 1854431 #### [facility] [address] [place] [address] Hemoglobin (Bld) [Mass/Vol] 13.8 g/dL Normal 12.0-16.0 [facility] Comment on above: Performed By: #### 2 378919, 8221714, 8631690, 365376085, 94789296, 7465255, 33774549, 3148523, 7995624 #### [facility] [address] [place] [address] MCH (RBC) [Entitic mass] 32.2 pg Normal 27.0-34.0 [facility] Comment on above: Performed By: #### 2 757936, 9452187, 7446624, 505813803, 38311776, 3220924, 56214452, 7894717, 7939807 #### [facility] [address] [place] [address] MCHC (RBC) [Mass/Vol] 34.4 g/dL Normal 31.4-36.0 [facility] Comment on above: Performed By: #### 2 504539, 0919280, 2599100, 841203359, 62792813, 3160821, 01573338, 2471679, 8853441 #### [facility] [address] [place] [address] MCV (RBC) [Entitic vol] 93.6 fL Normal 80.0-100.0 [facility] Comment on above: Performed By: #### 2 460075, 4625476, 1350090, 477210236, 77960078, 9523925, 48258476, 0496420, 5051196 #### [facility] [address] [place] [address] Platelet mean volume (Bld) [Entitic vol] 7.9 fL Normal 6.4-10.8 [facility] Comment on above: Performed By: #### 2 837823, 3163009, 7854299, 014509046, 08661019, 9526601, 28852853, 2231360, 5452823 #### [facility] [address] [place] [address] Platelets (Bld) [#/Vol] 250.0 E9/L Normal 150.0-500.0 [facility] Comment on above: Performed By: #### 2 030994, 7663657, 8939578, 586095570, 74836244, 7306467, 63447284, 6346466, 5547480 #### [facility] [address] [place] [address] RBC (Bld) [#/Vol] 4.3 E12/L Normal 4.3-5.9 [facility] Comment on above: Performed By: #### 2 092582, 2142046, 6622865, 570750321, 76166384, 5117898, 74186603, 5359227, 9552171 #### [facility] [address] [place] [address] WBC corrected for nucl RBC Auto (Bld) [#/Vol] 4.2 E9/L Normal 4.0-11.0 [facility] Comment on above: Performed By: #### 2 118387, 4097286, 2383145, 962319325, 91017566, 2565293, 73409875, 2495897, 5889111 #### [facility] [address] [place] [address] CHEMISTRYOrdered By: SYSTEM SYSTEM on 07-10-2023 Anion gap [Moles/Vol] 7 mmol/L Normal 6 - 16 mEq/L [facility] Remisol Calcium [Mass/Vol] 8.7 mg/dL Low 8.9 - 11.1 mg/dL [facility] Remisol Chloride [Moles/Vol] 113 mmol/L High 101 - 111 mmol/ L [facility] Remisol Cholesterol [Mass/Vol] 139 mg/dL Normal 120 [...] rate/Area] 101 mL/min/1.73 m2 Normal >=59mL/min/1.73 m2 [facility] Chem S Glucose [Mass/Vol] 114 mg/dL Normal [...] 145 mmol/L [facility] Remisol Troponin I.cardiac [Mass/Vol] 7681.70 pg/mL Invalid Interpretation Code 10.10 - 27.10 pg/mL [facility] Remisol Comment on above: Result Comment: Crit ical Result verified by previous result\ Critical Result I_hsTnI:7681.7 Called to JANNA YU at ICU by ROOSEVELT MCMILLAN and read back for confirmation at 07/10/2023 02:34:56 CHEMISTRYOrdered By: Kailyn Keene on 07-10-2023 Troponin I.cardiac [Mass/Vol] 9476.90 pg/mL Invalid Interpretation Code 10.10 - 27.10 pg/mL [facility] Remisol Comment on above: Result Comment: Crit ical Result verified by previous result\ Critical Result I_hsTnI:9476.9 Called to OWENMilena SOSA at 3S by JACQUI KEENE and [...] was a little bit up in the [employer] [employer] EF was little bit down she got [...] pneumococcal 13-valent vaccine 07/15/2014 Recorded Normal [facility] Comment on above: Result Comment: Elec tronically Signed By: Joyce POSEY, Tiffany Chavarria\.br\Date and Time Signed: 07/10/23 [...] - 7.5 E9/L [facility] HemeAutoSS HEMATOLOGYOrdered By: Roosevelt Mcmillan on 07-10-2023 Erythrocyte distribution width (RBC) [Ratio] 12.8 % Normal 10.9 - 14.2 % [facility] HemeAutoSS Hematocrit (Bld) [Volume fraction] 40.0 % Normal 34.0 - 46.0 % [facility] Hemoglobin (Bld) [Mass/Vol] 13.8 g/dL Normal 12.0 - 16.0 gm/dL [facility] MCH (RBC) [Entitic mass] 32.2 pg Normal 27.0 - 34.0 pg [facility] MCHC (RBC) [Mass/Vol] 34.4 g/dL Normal 31.4 - 36.0 gm/dL [facility] MCV (RBC) [Entitic vol] 93.6 fL Normal 80.0 - 100.0 fL [facility] Platelet mean volume (Bld) [Entitic vol] 7.9 fL Normal 6.4 - 10.8 fL [facility]eAutoSS Platelets (Bld) [#/Vol] 250.0 E9/L Normal 150.0 - 500.0 E9/L [facility] HemeAutoSS RBC (Bld) [#/Vol] 4.3 E12/L Normal 4.3 - 5.9 E12/L [facility] HemeAutoSS WBC corrected for nucl RBC Auto (Bld) [#/Vol] 4.2 E9/L Normal 4.0 - 11.0 E9/L [facility] HemeAutoSS Inpatient Patient Summaryon 07-10-2023 Inpatient Patient Summary ELLA JACOBO :1960 Visit Date:07/09/2023 Inpatient Discharge Instructions Your Care Team Admitting Physician - Bruno CRUZ DO Consulting Physician - Joyce POSEY, Tiffany Chavarria Reason for Your Visit [...] care physician. This Is Your Medications List Misc Prescription (Rosangela Gautam, 5 years.) albuterol [...] Pending Diagnostic Test Results None Pharmacy Information [facility] Previously Scheduled Follow-Up Appointments 2022 2:20 PM EDT With: Janelle POSEY, Fly Jean Baptiste Where: [facility] [address] [address]- \.br\ New Follow Up Appointments after Discharge\.br\ Follow Up with Fly Luis When: In 0 days\.br\ Where:\.br\ [address] [place] [address]\.br\ [place] [address]-\.br\ [facility] (2)\.br\ Medications\.br\ What How Much When Why Instructions Next Dose\.br\ New aspirin (aspirin 81 mg Oral EC Tab) 1 Tablets By Mouth Every day 07/11/23\.br\ New atorvastatin (atorvastatin 40 mg Tab) 2 Tablets By Mouth At bedtime Pickup at [facility] 115 07/10/23 pm\.br\ New carvedilol (Coreg 3.125 mg Tab) 1 Tablets By Mouth 2 times a day Refills: 1 Pickup at [facility] 115 07/10/23 pm\.br\ New nitroglycerin (nitroglycerin 0.4 mg sublingual Tab) 1 Tablets Sublingual Every 5 minutes as needed for Chest pain Pickup at [place] [address] as needed\.br\ New ticagrelor (ticagrelor 90 mg oral tablet) 1 Tablets By Mouth [address] times a day Acute ST elevation myocardial infarction (STEMI) MAINTENACE DOSE Pickup at [place] [address] 07/10/23 pm\.br\ Unchanged albuterol (Albuterol (Eqv-ProAir HFA) [...] Mouth Every day resume\.br\ Unchanged Misc Prescription (Rosangela Gautam, 5 years.) [...] Pharmacy Information\.br\ [facility]: [address], [place] [id number] [phone]\.br\ Test Results\.br\ CBC \.br\ BMP \.br\ WBC: [...] instructions at home:\.br\ Medicines\.br\ ? \.br\ Take qmvb-ngz-buqtjsz and prescription medicines only as told by your doctor.\.br\ ? \.br\ [facility] Lipid Panelon 07-10-2023 Cholesterol [Mass/Vol] 139 mg/dL Normal 120-200 [facility] Comment on above: Performed By: #### 2 534943, 5123402, 9210672, 478635161, 90563760, 7065432, 96899850, 1008952, 4525027 #### [facility] [address] [place] [address] Cholesterol in HDL [Mass/Vol] 33 mg/dL Invalid Interpretation Code [facility] Comment on above: Result Comment: HDL > or equal to 60 mg/dL: Low cardiovascular risk HDL < 40 mg/dL : High cardiovascular risk Performed By: #### 2 800093, 2216023, 5324308, 698376309, 77807340, 6420000, 61333200, 8275274, 9617813 #### [facility] [address] [place] [address] Cholesterol in LDL [Mass/Vol] 84 mg/dL Normal <=129 [facility] Comment on above: Performed By: #### 2 146378, 5258579, 5441117, 738581677, 46211645, 0647603, 26470478, 9294992, 2639437 #### [facility] [address] [place] [address] Cholesterol in VLDL [Mass/Vol] 23 mg/dL Normal 7-40 [facility] Comment on above: Performed By: #### 2 421829, 3260093, 1793406, 130333560, 65819296, 2543158, 01630194, 7498457, 7248281 #### [facility] [address] [place] [address] Triglyceride [Mass/Vol] 115 mg/dL Normal <=149 [facility] Comment on above: Performed By: #### 2 018479, 2753920, 2266228, 336524505, 83734619, 6301352, 08859766, 4191480, 6071357 #### [facility] [address] [place] [address] [place] 07-10-2023 Anion gap [Moles/Vol] 10 mmol/L Normal 6-16 [facility] Comment on above: Performed By: #### 2 798679, 5725379, 8757089, 431383081, 97940407, 8539063, 28745624, 4361655, 0814095 #### [facility] [address] [place] [address] Chloride [Moles/Vol] 111 mmol/L Normal 101-[address] [facility] Comment on above: Performed By: #### 2 893621, 1785803, 1425952, 401548215, 37056993, 7899300, 75563315, 9411766, 0983899 #### [facility] [address] [place] [address] CO2 [Moles/Vol] 26 mmol/L Normal 21-31 [facility] Comment on above: Performed By: #### 2 929171, 3199735, 3541111, 766519086, 31719511, 8555738, 60281643, 1967232, 3606937 #### [facility] [address] [place] [address] Potassium [Moles/Vol] 3.8 mmol/L Normal 3.5-5.3 [facility] Comment on above: Performed By: #### 2 393240, 3089214, 9071045, 143128660, 06152096, 9841527, 87706865, 9572283, 8475717 #### [facility] [address] [place] [address] Sodium [Moles/Vol] 143 mmol/L Normal 135-145 [facility] Comment on above: Performed By: #### 2 470290, 1816607, 5840042, 961372209, 40002352, 7233743, 77271976, 8402998, 2538510 #### [facility] [address] [place] [address] Magnesiumon 07-10-2023 Magnesium [Mass/Vol] 1.8 mg/dL Normal 1.3-2.[address] [facility] Comment on above: Performed By: #### 2 169140, 8036017, 1253330, 227906943, 03653267, 4210256, 14613273, 7647779, 2081452 #### [facility] [address] [place] [address] Monitor Recordon 07-10-2023 Monitor Record [id number]#[id number]:127 Normal [facility] Operative Reporton 3 Operative Report Indication for [...] patient will additionally be counseled by the [facility] team and in follow-up. CAD: DAPT, beta-tamika, statin, risk factor modification. Complications None Technique Following full and informed consent the patient was brought to the [facility] where sterile prep and drape were administered in usual fashion. Anesthesia was obtained in the right wrist with lidocaine after administration of conscious sedation. A 5/6 slender Terumo sheath was placed in the right radial artery without complication. Nitroglycerin and nicardipine were given via the sheath and heparin was given intravenously. A 6 Tajik XB3.0 catheter was advanced and selectively engaged [...] end of the procedure without complication. Normal [facility] Comment on above: Result Comment: Elec tronically Signed By: Joyce POSEY, Tiffany Chavarria\.br\Date and Time Signed: 07/10/23 03:28 EDT Troponin 6 Hr.on 07-10-2023 Troponin I.cardiac [Mass/Vol] 7681.70 pg/mL Abnormal 10.10-27.10 [facility] Comment on above: Result Comment: Crit ical Result verified by previous result\ Critical Result I_hsTnI:7681.7 Called to JANNA YU at ICU by ROOSEVELT MCMILLAN and read back for confirmation at 07/10/2023 02:34:56 The 95% CI (Confidence Interval) PPV (Positive Predictive Value) for myocardial infarction in females is 38 pg/mL, in males 51 pg/mL. The results should be used in conjunction with clinical conditions of myocardial infarction. ([employer] High Sensitivity Troponin I Instructions For Use, [place], June 2018) Performed By: #### 2 373071, 4287865, 8789634, 817465148, 91734755, 6456170, 34364767, 6006279, 0397506 #### [facility] [address] [place] [address] Troponin 9 Hr.on 07-10-2023 Troponin I.cardiac [Mass/Vol] 9476.90 pg/mL Abnormal 10.10-27.10 [facility] Comment on above: Result Comment: Crit ical [...] conjunction with clinical conditions of myocardial infarction. ([employer] High Sensitivity Troponin I Instructions For Use, [place], June 2018) Performed By: #### 2 874706, 1626733, 2673944, 910474567, 00239852, 7035279, 13074870, 6663640, 0231383 #### [facility] [address] [place] [address] XR Chest Single Viewon 07-10 XR Chest [...] mGy = . DAP = . Normal [facility] eGFRon 07-10-2023 GFR/1.73 sq M.predicted among non-blacks MDRD (S/P/Bld) [Vol rate/Area] 101 mL/min/1.73 m2 Normal >=59 [facility] Comment on above: Order Comment: Order added by Discern Expert. Result Comment: Fibre [place] kidney disease could be indicated at eGFR's of less than 60 mL/min/1.73m2. Kidney failure is indicated at less than 15 mL/min/1.73m2. Performed By: #### 2 893085, 5526553, 1950798, 966007672, 97091313, 5177055, 86901612, 0661461, 5952186 #### [facility] [address] [place] [address] Auto Diffon 07-09-2023 Basophils/100 WBC (Bld) 0.6 % Normal 0.0-2.0 [facility] Comment on above: Order Comment: Order Added by Discern Expert. Performed By: #### 2 118900, 5785543, 6016772, 797306894, 68182649, 8912882, 28683945, 2204797, 1165017 #### [facility] [address] [place] [address] Basophils/Leukocytes Auto (Bld) [Pure # fraction] 0.0 E9/L Normal 0.0-0.2 [facility] Comment on above: Order Comment: Order Added by Discern Expert. Performed By: #### 2 394087, 0372447, 6378776, 689408951, 65368018, 1465911, 66771861, 8597853, 3329692 #### [facility] [address] [place] [address] Eosinophils/100 WBC (Bld) 1.5 % Normal 0.0-8.0 [facility] Comment on above: Order Comment: Order Added by Discern Expert. Performed By: #### 2 767594, 5627395, 6888877, 811262074, 89666033, 2057033, 27774847, 9440312, 4546521 #### [facility] [address] [place] [address] Eosinophils/Leukocyt es Auto (Bld) [Pure # fraction] 0.1 E9/L Normal 0.0-0.5 [facility] Comment on above: Order Comment: Order Added by Discern Expert. Performed By: #### 2 744353, 0453378, 2467869, 757429521, 04187961, 8517594, 94288354, 5402835, 6382728 #### [facility] [address] [place] [address] Lymphocytes/100 WBC (Bld) 32.6 % Normal 14.0-50.0 [facility] Comment on above: Order Comment: Order Added by Discern Expert. Performed By: #### 2 898229, 3601645, 5729305, 551871124, 29258986, 6759619, 39952265, 9837450, 9618684 #### [facility] [address] [place] [address] Lymphocytes/Leukocyt es Auto (Bld) [Pure # fraction] 1.8 E9/L Normal 1.0-4.0 [facility] Comment on above: Order Comment: Order Added by Discern Expert. Performed By: #### 2 831078, 4722434, 3126807, 180527618, 54988150, 4549536, 06867966, 7639594, 7652623 #### [facility] [address] [place] [address] Monocytes/100 WBC (Bld) 8.5 % Normal 4.0-14.0 [facility] Comment on above: Order Comment: Order Added by Discern Expert. Performed By: #### 2 223317, 2260159, 2345363, 260232497, 02237887, 4468968, 26066319, 3874941, 4048722 #### [facility] [address] [place] [address] Monocytes/Leukocytes Auto (Bld) [Pure # fraction] 0.5 E9/L Normal 0.2-1.0 [facility] Comment on above: Order Comment: Order Added by Lupe Expert. Performed By: #### 2 557207, 9159297, 4406239, 876533519, 58772769, 7604792, 40044385, 2633174, 1006459 #### [facility] [address] [place] [address] Neutrophils/100 WBC (Bld) 56.8 % Normal 36.0-75.0 [facility] Comment on above: Order Comment: Order Added by Discern Expert. Performed By: #### 2 560396, 5512027, 8739362, 789406822, 87760608, 9200133, 12195932, 1653831, 1665554 #### [facility] [address] [place] [address] Neutrophils/Leukocyt es Auto (Bld) [Pure # fraction] 3.2 E9/L Normal 2.0-7.5 [facility] Comment on above: Order Comment: Order Added by Discern Expert. Performed By: #### 2 249363, 4941643, 0568625, 949885653, 11443380, 4969841, 19017171, 9755416, 1312977 #### [facility] [address] [place] [address] BMPon 07-09-2023 Anion gap [Moles/Vol] 12 mmol/L Normal 6-16 [facility] Comment on above: Performed By: #### 2 079939, 0882290, 8209007, 955448592, 13934089, 4982966, 25430526, 0162599, 3017287 #### [facility] [address] [place] [address] Calcium [Mass/Vol] 9.3 mg/dL Normal 8.9-11.1 [facility] Comment on above: Performed By: #### 2 790669, 5830750, 9058903, 429781501, 26617670, 9747887, 87994884, 9416640, 4121209 #### [facility] [address] [place] [address] Chloride [Moles/Vol] 100 mmol/L Low 101-[address] [facility] Comment on above: Performed By: #### 2 965727, 3728478, 4777145, 170945526, 17042347, 1482935, 54456547, 6187584, 9478952 #### [facility] [address] [place] [address] CO2 [Moles/Vol] 29 mmol/L Normal 21-31 [facility] Comment on above: Performed By: #### 2 267074, 7191716, 7108934, 156934431, 40975122, 6942250, 98667695, 9596313, 2114578 #### [facility] [address] [place] [address] Creatinine [Mass/Vol] 0.7 mg/dL Normal 0.5-1.3 [facility] Comment on above: Performed By: #### 2 750589, 5685434, 9553331, 190465822, 38925976, 3414220, 87791385, 4016774, 2395625 #### [facility] [address] [place] [address] Glucose [Mass/Vol] 101 mg/dL Normal 55-199 [facility] Comment on above: Result Comment: If t his glucose result represents a fasting glucose, interpretation should refer to the following reference range: 55-99 mg/dL Performed By: #### 2 639277, 3085022, 9481031, 734453127, 71658994, 3670904, 35777699, 7605298, 8742240 #### [facility] [address] [place] [address] Potassium [Moles/Vol] 2.9 mmol/L Low 3.5-5.3 [facility] Comment on above: Performed By: #### 2 419476, 0271552, 3844672, 888470922, 96329783, 8856646, 35199764, 7562922, 5762091 #### [facility] [address] [place] [address] Sodium [Moles/Vol] 138 mmol/L Normal 135-145 [facility] Comment on above: Performed By: #### 2 971574, 0649316, 9183677, 043252137, 57325650, 7764222, 70604906, 1015715, 9064476 #### [facility] [address] [place] [address] Urea nitrogen [Mass/Vol] 7 mg/dL Normal 5-21 [facility] Comment on above: Performed By: #### 2 870176, 8019821, 1888294, 425030799, 67827536, 5680991, 13228925, 2088589, 5051791 #### [facility] [address] [place] [address] Urea nitrogen/Creatinine [Mass ratio] 10 No Units Normal 10-20 [facility] Comment on above: Performed By: #### 2 784258, 4847741, 7514059, 929109123, 59865141, 2005187, 98673814, 4735320, 0393157 #### [facility] [address] [place] [address] CBC w/ Auto Diffon 3 Erythrocyte distribution width (RBC) [Ratio] 12.6 % Normal 10.9-14.2 [facility] Comment on above: Performed By: #### 2 407045, 7126985, 1746597, 482787696, 42610571, 0181140, 34688340, 0800643, 2374468 #### [facility] [address] [place] [address] Hematocrit (Bld) [Volume fraction] 42.8 % Normal 34.0-46.0 [facility] Comment on above: Performed By: #### 2 633601, 8205901, 4707893, 237786742, 77300225, 7744516, 65138519, 2863445, 8220193 #### [facility] [address] [place] [address] Hemoglobin (Bld) [Mass/Vol] 14.7 g/dL Normal 12.0-16.0 [facility] Comment on above: Performed By: #### 2 093823, 3030704, 9853625, 292028862, 48931916, 9495625, 89130869, 7949993, 2403483 #### [facility] [address] [place] [address] MCH (RBC) [Entitic mass] 32.3 pg Normal 27.0-34.0 [facility] Comment on above: Performed By: #### 2 147674, 9943990, 8982617, 511229552, 90287568, 5324893, 09295178, 2806766, 6213217 #### [facility] [address] [place] [address] MCHC (RBC) [Mass/Vol] 34.4 g/dL Normal 31.4-36.0 [facility] Comment on above: Performed By: #### 2 143075, 1589843, 1500493, 795283374, 41731177, 7530532, 30083747, 3717746, 3513509 #### [facility] [address] [place] [address] MCV (RBC) [Entitic vol] 93.8 fL Normal 80.0-100.0 [facility] Comment on above: Performed By: #### 2 919492, 1348620, 6108332, 496247429, 89787245, 7887251, 79220192, 7775419, 1732079 #### [facility] [address] [place] [address] Platelet mean volume (Bld) [Entitic vol] 8.2 fL Normal 6.4-10.8 [facility] Comment on above: Performed By: #### 2 731144, 4666468, 8685607, 049251084, 06586691, 1574639, 53741019, 1134372, 3440790 #### [facility] [address] [place] [address] Platelets (Bld) [#/Vol] 266.0 E9/L Normal 150.0-500.0 [facility] Comment on above: Performed By: #### 2 449331, 3154588, 4587435, 541620372, 94442000, 0656486, 52469796, 2880259, 0896470 #### [facility] [address] [place] [address] RBC (Bld) [#/Vol] 4.6 E12/L Normal 4.3-5.9 [facility] Comment on above: Performed By: #### 2 077877, 9570580, 6328124, 944741647, 21240983, 6758260, 70548238, 7622322, 5811508 #### [facility] [address] [place] [address] WBC corrected for nucl RBC Auto (Bld) [#/Vol] 5.6 E9/L Normal 4.0-11.0 [facility] Comment on above: Performed By: #### 2 794480, 4358775, 6149023, 102933221, 19522100, 6850418, 14427663, 4934038, 8933718 #### [facility] [address] [place] [address] CHEMISTRYOrdered By: SYSTEM SYSTEM on 07-09-2023 Troponin I.cardiac [Mass/Vol] 2850.80 pg/mL Invalid Interpretation Code 10.10 - 27.10 pg/mL [facility] Remisol Comment on above: Result Comment: Crit ical Result verified by previous result\ Critical Result I_hsTnI:2850.8 Called to MARIA A GÓMEZ at ICU by ROOSEVELT MCMILLAN and read back for confirmation at [...] rate/Area] 97 mL/min/1.73 m2 Normal >=59mL/min/1.73 m2 [facility] Chem S Glucose [Mass/Vol] 101 mg/dL Normal 55 - 199 mg/dL [facility] Remisol Potassium [Moles/Vol] 2.9 mmol/L Low 3.5 - 5.3 mmol/L [facility] Remisol Sodium [Moles/Vol] 138 mmol/L Normal 135 - 145 mmol/L [facility] Urea nitrogen [Mass/Vol] 7 mg/dL Normal 5 - 21 mg/dL [facility] Urea nitrogen/Creatinine [Mass ratio] 10 mg/mg Normal 10 - 20 [facility] Remisol COAGULATIONOrdered By: Santiago Schwarz on 07-09-2023 aPTT Coag (PPP) [Time] 32.3 s Normal 25.1 - 36.5 second(s) [facility] Auto Coag INR Coag (PPP) [Relative time] 1.0 {INR} Invalid Interpretation Code [facility] Auto Coag PT Coag (PPP) [Time] 10.9 s Normal 9.4 - 1 2.5 second(s) [facility] Auto Coag Consent for Treatmenton 06-15 Consent for Treatment [id number]#[id number]:127 Normal [facility] ED Note-Physicianon 07-09-20 23 ED Note-Physician Basic Information Time Seen: Silver Martinez DO. 07/09/2023 19:35 Chief Complaint Pt. presents to [...] and Complexity of Problems Differential Diagnosis: [] [facility] Data External documents reviewed: N/A My [...] for cardiology. Patient be taken to the [facility] for further intervention. Shared decision making: As [...] sulfamethoxazole (Unknow (more content not included)... Normal [facility] Comment on above: Result Comment: Elec tronically [...] - 7.5 E9/L [facility]SS HEMATOLOGYOrdered By: Roosevelt Mcmillan on 07-09-2023 Erythrocyte distribution width (RBC) [...] 93.8 fL Normal 80.0 - 100.0 fL [facility]SS Platelet mean volume (Bld) [Entitic vol] 8.2 fL Normal 6.4 - 10.8 fL [facility]eAutoSS Platelets (Bld) [#/Vol] 266.0 E9/L Normal 150.0 - 500.0 E9/L [facility]AutoSS RBC (Bld) [#/Vol] 4.6 E12/L Normal 4.3 - 5.9 E12/L [facility] HemeAutoSS WBC corrected for nucl RBC Auto (Bld) [#/Vol] 5.6 E9/L Normal 4.0 - 11.0 E9/L [facility] HemeAutoSS Monitor Recordon 07-09-2023 Monitor Record [id number] 290#1.00CD:127 Normal [facility] Monitor Record [id number] 365#1.00CD:127 Normal [facility] PT & PTTon 07-09-2023 aPTT Coag (PPP) [Time] 32.3 second(s) Normal 25.1-36.5 [facility] Comment on above: Result Comment: Para meter [...] the same coagulation reagent and instrumentation as [facility]. Currently there are no coagulation studies available worldwide for children to 14 days, and no normal ranges. Heparin therapeutic range (represented by Anti-Factor Xa activity of 0.2 - 0.4 U/mL) corresponds to PTT of 56.6 - 109.0 sec. Performed By: #### 2 [id number], 4757263, 4061710, [id number], 91620085, 5195165, 18164842, 9915646, 5186476 #### [facility] [address] [place] [address] INR Coag (PPP) [Relative time] 1.0 {INR} Invalid Interpretation Code [facility] Comment on above: Result Comment: INR results are specifically intended to assess patients stabilized on long-term Anticoagulation therapy suggested INR?s ?Less Intensive Anticoagulation? 2.0 ? 3.0 Conventional Range 3.0 ? 4.5 Performed By: #### 2 [id number], 8748479, 2006026, [id number], 76579570, 5398866, 91291294, 9342754, 9890702 #### [facility] [address] [place] [address] PT Coag (PPP) [Time] 10.9 second(s) Normal 9.4-12.5 [facility] Comment on above: Result Comment: 15 d [...] the same coagulation reagent and instrumentation as [facility]. Currently there are no coagulation studies available worldwide for children to 14 days, and no normal ranges. Performed By: #### 2 065433, 1472325, 0874064, [id number], 80517923, 8868962, 33158746, 6445426, 7980385 #### [facility] [address] [place] [address] Pre-Arrival Noteon 3 Pre-Arrival Note Pre-Arrival Summary Name: chest pain/nausea, ncems Current Date: 07/09/2023 19:33:15 EDT Gender: Female Date of : Age: Pre-Arrival Type: EMS ETA: 07/09/2023 19:52:00 EDT Primary Care Physician: Presenting Problem: chest pains Pre-Arrival User: Ant Anglin RN Referring Source: Location: PA Completion Date/Time: 07/09/2023 19:22:[address] [facility] Emergency Department Pre-Hospital Report Form ___ Vital Signs: 96/61 97p/ulse, 18, 98% room air/ , Pre-Hospital Report:chest pain onset 1 hour ago. Treatment in Route: 4 ASA, zofran x2, nitro x1. IV with fluids infusing. Response to Treatment: Misc. Issues: Normal [facility] RAD - Preliminary Radiology Reporton 07-09-2023 RAD - Preliminary Radiology Report [id number] 655#1.00CD:127 Normal [facility] Troponin 0 Hr.on 07-09-2023 Troponin I.cardiac [Mass/Vol] 509.70 pg/mL Abnormal 10.-27.10 [facility] Comment on above: Result Comment: Unab le [...] Sensitivity Troponin I Instructions For Use, Shivani Vancouver, June 2018) Performed By: #### 2 101631, 6230292, 7468175, [id number], 24600080, 9094285, 46025250, 7814120, 3593215 #### [facility] [address] [place] [address] Troponin 3 Hr.on 07-09-2023 Troponin I.cardiac [Mass/Vol] 2850.80 pg/mL Abnormal 10.10-27.10 [facility] Comment on above: Result Comment: Crit ical Result verified by previous result\ Critical Result I_hsTnI:2850.8 Called to MARIA A GÓMEZ at ICU by ROOSEEVLT MCMILLAN and read back for confirmation at 07/09/2023 23:06:42 The 95% CI (Confidence Interval) PPV (Positive Predictive Value) for myocardial infarction in females is 38 pg/mL, in males 51 pg/mL. The results should be used in conjunction with clinical conditions of myocardial infarction. (Access High Sensitivity Troponin I Instructions For Use, Shivani Vancouver, June 2018) Performed By: #### 2 526592, 6794170, 7892740, [id number], 16968839, 6822294, 40076797, 1200777, 8223475 #### [facility] [address] [place] [address] eGFRon 07-09-2023 GFR/1.73 sq M.predicted among non-blacks MDRD (S/P/Bld) [Vol rate/Area] 97 mL/min/1.73 m2 Normal >=59 [facility] Comment on above: Order Comment: Order added by Discern Expert. Result Comment: Fibre Cement [place] kidney disease could be indicated at eGFR's of less than 60 mL/min/1.73m2. Kidney failure is indicated at less than 15 mL/min/1.73m2. Performed By: #### 2 802858, 0192192, 9524678, [id number], 73770830, 0688620, 80163522, 2695154, 2117232 #### [facility] [address] [place] [address] Creatinine (Bld) [Mass/Vol]O rdered By: Jose Cruz on 06-18-2023 Creatinine [Mass/Vol] 0.7 mg/dL 0.6-1.3 [facility] Comment on above: ER/ESD physician is notified/shown all ISTAT results.Critical values may be confirmed by laboratory testing ifdeemed necessary by ER attending doctor. METHYLMALONIC ACID (MMA)on 0 02-16-2023 Methylmalonic Acid, Serum 141 nmol/L Normal 0-378 [facility] Comment on above: Performed By: #### M MA2 #### [facility] [address] [place], [place] [address] Dr. Khadra Pascual PROTEIN ELECTROPHERESIS W/IN TERPRETATIONon 02-16-2023 Albumin [Mass/Vol] 3.6 g/dL Normal 2.9-4.4 [facility] Comment on above: Performed By: #### P RTELIN #### [facility] [address] [place] [address] [address] Khadra Pascual Albumin/Globulin [Mass ratio] 1.0 {ratio} Normal 0.7-1.7 [facility] Comment on above: Performed By: #### P RTELIN #### [facility] [address] [address] [address] Khadra Pascual Ndjbw-0-Kfqvusvy 0.3 g/dL Normal 0.0-0.4 [facility] Comment on above: Performed By: #### P RTELIN #### [facility] [address] [place] [address] Dr. Khadra Pascual Stdys-8-Qxmrngyw 1.0 g/dL Normal 0.4-1.0 [facility] Comment on above: Performed By: #### P RTELIN #### [facility] [address] [address] [address] Khadra Pascual Beta Globulin 1.2 g/dL Normal 0.7-1.3 [facility] Comment on above: Performed By: #### P RTELIN #### [facility] [address] [place] [address] Dr. Khadra Pascual Gamma Globulin 1.2 g/dL Normal 0.4-1.8 [facility] Comment on above: Performed By: #### P RTELIN #### [facility] [address] [address] [address] Khadra Pascual Globulin (S) [Mass/Vol] 3.7 g/dL Normal 2.2-3.9 [facility] Comment on above: Performed By: #### P RTELIN #### [facility] [address] [place] [address] Dr. Khadra Pascual M-Gene Not Observed Normal Not Observed [facility] Comment on above: Performed By: #### P RTELIN #### [facility] [address] [place] [address] Dr. Khadra Pascual P E Interpretation, S Comment Normal [facility] Comment on above: Result Comment: The SPE pattern appears unremarkable. Evidence of monoclonal protein is not apparent. Performed By: #### P RTELIN #### [facility] [address] [place] [address] Dr. Khadra Pascual PDF . Normal [facility] Comment on above: Performed By: #### P RTELIN #### [facility] [address] [place] [address] Dr. Khadra Pascual Please note: Comment Normal [facility] Comment on above: Result Comment: Prot ein electrophoresis scan will follow via computer, mail, or education program associate delivery. Performed By: #### P RTELIN #### [facility] [address] [place] [address] Dr. Khadra Pascual Protein [Mass/Vol] 7.3 g/dL Normal 6.0-8.5 [facility] Comment on above: Performed By: #### P RTELIN #### [facility] [address] [place] [address] Dr. Khadra Pascual REMY COMPREHENSIVE PROFILEon 02-15-2023 Anti-Centromere B Antibodies <0.2 Normal 0.0-0.9 [facility] Comment on above: Performed By: #### A NAPROF #### [facility] [address] [place] [address] Dr. Khadra Pascual Anti-DNA (DS) Ab Qn 3 IU/mL Normal 0-9 [facility] Comment on above: Result Comment: Nega tive <5 Equivocal 5 - 9 Positive >9 Performed By: #### A NAPROF #### [facility] [address] [place] [address] Dr. Khadra Pascual Anti-Magalis-1 <0.2 Normal 0.0-0.9 [facility] Comment on above: Performed By: #### A NAPROF #### [facility] [address] [place] [address] Dr. Khadra Pascual Antichromatin Antibodies <0.2 Normal 0.0-0.9 [facility] Comment on above: Performed By: #### A NAPROF #### [facility] [address] [address] [address] Khadra Pascual ANTIRIBOSOMAL P AB <0.2 Normal 0.0-0.9 [facility] Comment on above: Performed By: #### A NAPROF #### [facility] [address] [address] [address] Khadra Pascual Antiscleroderma-70 Antibodies <0.2 Normal 0.0-0.9 [facility] Comment on above: Performed By: #### A NAPROF #### [facility] [address] [address] [address] Khadra Pascual COMMENT Comment Normal [facility] Comment on above: Result Comment: Auto antibody Disease Association Condition Frequency Antinuclear Antibody, SLE, mixed connective Direct (REMY-D) tissue diseases dsDNA SLE 40 - 60% Chromatin Drug induced SLE 90% SLE 48 - 97% SSA (Ro) SLE 25 - 35% Sjogren's Syndrome 40 - 70% Lupus 100% SSB (La) SLE 10% Sjogren's Syndrome 30% Sm (anti-Jackson) SLE 15 - 30% BUTCHER ALL ROUND Mixed Connective Tissue Disease 95% (U1 nRNP, SLE 30 - 50% anti-ribonucleoprotein) Polymyositis and/or Dermatomyositis 20% Scl-70 (antiDNA Scleroderma (diffuse) 20 - 35% topoisomerase) Crest 13% Magalis-1 Polymyositis and/or Dermatomyositis 20 - 40% Centromere B Scleroderma - Crest variant 80% Ribosomal P SLE 10 - 20% Performed By: #### A NAPROF #### [facility] [address] [address] [address] Khadra Pascual BUTCHER ALL ROUND Antibodies <0.2 Normal 0.0-0.9 [facility] Comment on above: Performed By: #### A NAPROF #### [facility] [address] [place] [address] Dr. Khdara Pascual Sjogren's Anti-SS-A <0.2 Normal 0.0-0.9 [facility] Comment on above: Performed By: #### A NAPROF #### [facility] [address] [place] [address] Dr. Khadra Pascual Sjogrkiana'stanton Anti-SS-B <0.2 Normal 0.0-0.9 [facility] Comment on above: Performed By: #### A NAPROF #### [facility] [address] [place] [address] Dr. Khadra Pacsual Jackson Antibodies <0.2 Normal 0.0-0.9 [facility] Comment on above: Performed By: #### A NAPROF #### [facility] [address] [place] [address] Dr. Khadra Pascual Jackson/BUTCHER ALL ROUND Antibodies <0.2 Normal 0.0-0.9 [facility] Comment on above: Performed By: #### A NAPROF #### [facility] [address] [place] [address] Dr. Khadra Pascual CRPon 02-14-2023 CRP [Mass/Vol] mg/L Normal <=1.0 [facility] Comment on above: Performed By: #### T SH, T7, CRP, CMP #### [facility] [address] [place] [address] Dr. Khadra Pascual FREE THYROXINE INDEX T7on FTI 1.70 Normal 1.30-4.50 [facility] Comment on above: Performed By: #### T SH, T7, CRP, CMP #### [facility] [address] [place] [address] Dr. Khadra Pascual T3U 32.0 % Normal 30.0-39.0 [facility] Comment on above: Performed By: #### T SH, T7, CRP, CMP #### [facility] [address] [address] [address] Khadra Pascual T4 [Mass/Vol] 5.30 ug/dL Normal 4.80-13.90 [facility] Comment on above: Performed By: #### T SH, T7, CRP, CMP #### [facility] [address] [address] [address] Khadra Pascual GLYCOHEMOGLOBIN A1Con 2022 ADA RECOMMENDATION SEE BELOW Normal [facility] Comment on above: Result Comment: ADA RECOMMENDED LIMIT 4.0 - 6.0 ADA THERAPEUTIC TARGET < 7.0 ACTION SUGGESTED > 7.0 Performed By: #### A 1C ####[facility] [address] [address]Dr. Khadra Pascual Glucose [Mass/Vol] 117 mg/dL Normal [facility] Comment on above: Performed By: #### A 1C ####[facility] [address] [address]Dr. Khadra Pascual HbA1c (Bld) [Mass fraction] 5.7 % Normal 4.5-6.2 [facility] Comment on above: Performed By: #### A 1C ####[facility] [address] [address]Dr. Khadra Pascual PROF 14(COMP METB)on 023 Albumin [Mass/Vol] 3.9 g/dL Normal 3.4-5.0 [facility] Comment on above: Performed By: #### T SH, T7, CRP, CMP #### [facility] [address] [place] [address] [address] Khadra Pascual Albumin/Globulin [Mass ratio] 1.0 {ratio} Normal [facility] Comment on above: Performed By: #### T SH, T7, CRP, CMP #### [facility] [address] [place] [address] [address] Khadra Pascual ALP [Catalytic activity/Vol] 176 U/L Critically high 46-116 [facility] Comment on above: Performed By: #### T SH, T7, CRP, CMP #### [facility] [address] [place] [address] Dr. Khadra Pascual ALT [Catalytic activity/Vol] 23 U/L Normal 14-59 [facility] Comment on above: Performed By: #### T SH, T7, CRP, CMP #### [facility] [address] [place] [address] Dr. Khadra Pascual Anion gap [Moles/Vol] 10.5 mmol/L Normal [facility] Comment on above: Performed By: #### T SH, T7, CRP, CMP #### [facility] [address] [place] [address] Dr. Khadra Pascual AST [Catalytic activity/Vol] 17 U/L Normal 15-37 [facility] Comment on above: Performed By: #### T SH, T7, CRP, CMP #### [facility] [address] [place] [address] Dr. Khadra Pascual Bilirubin [Mass/Vol] 0.2 mg/dL Normal 0.2-1.0 [facility] Comment on above: Performed By: #### T SH, T7, CRP, CMP #### [facility] [address] [place] [address] Dr. Khadra Pascual Calcium [Mass/Vol] 9.6 mg/dL Normal 8.5-10.1 [facility] Comment on above: Performed By: #### T SH, T7, CRP, CMP #### [facility] [address] [place] [address] Dr. Khadra Pascual Chloride [Moles/Vol] 102 mmol/L Normal 98-107 [facility] Comment on above: Performed By: #### T SH, T7, CRP, CMP #### [facility] [address] [place] [address] Dr. Khadra Pascual CO2 [Moles/Vol] 28.5 mmol/L Normal 21.0-32.0 [facility] Comment on above: Performed By: #### T SH, T7, CRP, CMP #### [facility] [address] [place] [address] [address] Khadra Pascual Creatinine [Mass/Vol] 0.70 mg/dL Normal 0.55-1.02 [facility] Comment on above: Performed By: #### T SH, T7, CRP, CMP #### [facility] [address] [place] [address] [address] Khadra Pascual EGFR-AF GREEK >60 Normal >=60 [facility] Comment on above: Performed By: #### T SH, T7, CRP, CMP #### [facility] [address] [place] [address] [address] Khadra Pascual EGFR-NON AF GREEK >60 Normal >=60 [facility] Comment on above: Performed By: #### T SH, T7, CRP, CMP #### [facility] [address] [place] [address] [address] Khadra Pascual Globulin (S) [Mass/Vol] 4.0 g/dL Normal [facility] Comment on above: Performed By: #### T SH, T7, CRP, CMP #### [facility] [address] [address] [address] Khadra Pascual Glucose [Mass/Vol] 88 mg/dL Normal 74-106 [facility] Comment on above: Performed By: #### T SH, T7, CRP, CMP #### [facility] [address] [address] [address] Khadra Pascual Potassium [Moles/Vol] 4.0 mmol/L Normal 3.5-5.1 [facility] Comment on above: Performed By: #### T SH, T7, CRP, CMP #### [facility] [address] [address] [address] Khadra Pascual Protein [Mass/Vol] 7.9 g/dL Normal 6.4-8.2 [facility] Comment on above: Performed By: #### T SH, T7, CRP, CMP #### [facility] [address] [place] [address] Dr. Khadra Pascual Sodium [Moles/Vol] 137 mmol/L Normal 136-145 [facility] Comment on above: Performed By: #### T SH, T7, CRP, CMP #### [facility] [address] [place] [address] [address] Khadra Pascual Urea nitrogen [Mass/Vol] 8.0 mg/dL Normal 7.0-18.0 [facility] Comment on above: Performed By: #### T SH, T7, CRP, CMP #### [facility] [address] [address] [address] hKadra Pascual Urea nitrogen/Creatinine [Mass ratio] 11.4 mg/mg Normal [facility] Comment on above: Performed By: #### T SH, T7, CRP, CMP #### [facility] [address] [place] [address] [address] Khadra Pascual [facility] 23 mm/hr Normal <=30 [facility] Comment on above: Performed By: #### S EDR ####[facility] [address] [place] [address]Dr. Khadra Pascual TSHon 02-14-2023 TSH 0.826 uIU/mL Normal 0.358-3.740 [facility] Comment on above: Performed By: #### T SH, T7, CRP, CMP #### [facility] [address] [place] [address] [address] Khadra Pascual VIT B12 AND FOLATEon 023 Cobalamin (Vitamin B12) [Mass/Vol] 291.0 pg/mL Normal 193.0-986.0 [facility] Comment on above: Performed By: #### B 12FOL #### [facility] [address] [place] [address] [address] Khadra Pascual FOLATE 14.50 ng/mL Normal 8.60-58.90 [facility] Comment on above: Performed By: #### B 12FOL #### [facility] [address] [place] [address] [address] LUNG CANCER SCREENINGon [...] by: ELSY MACHADO Date: 2022-12-08 09:32 Normal [facility] Ambulatory Visit Summaryon 1 Ambulatory Visit Summary ELLA JACOBO :1960 Visit Date:09/13/2022 Ambulatory Visit Instructions Your Diagnosis Hypertensive urgency HTN (hypertension), benign Primary insomnia Anxiety and depression RLS (restless legs syndrome) BMI 32.0-32.9,adult Current smoker Screening mammogram for breast cancer Post-menopause Your Care Team Attending Physician - Fly Luis MD Primary Care Physician - Fly Luis MD This Is Your Medications List [...] Follow-Up Appointments Tuesday 4:20 PM EST With: Janelle POSEY, Fly Jean Baptiste Where: [facility] [place] Invalid Interpretation Code HTN (hypertension), benign [facility] Patient Educationon 09-13- 22 Patient Education Cardiovascular Hypertension, Adult High [...] ? Avoi (more content not included)... Normal [facility] GLUCOSE BLOODon 09-07-2022 Glucose [Mass/Vol] 103 mg/dL Normal 74-106 [facility] Comment on above: Performed By: #### G BLANCA, LIPID ####[facility] [address] [address]Dr. Khadra Pascual LIPID PROFILEon 09-07-2022 CHOL-HDL RATIO NORM SEE BELOW Normal [facility] Comment on above: Result Comment: 3.3 - 4.4 LOW RISK 4.4 - 7.1 AVERAGE RISK 7.1 - 11.0 MODERATE RISK >11.0 HIGH RISK Performed By: #### G BLANCA, LIPID ####[facility] [address] [address]Dr. Khadra Pascual Cholesterol [Mass/Vol] 163 mg/dL Normal <=200 [facility] Comment on above: Performed By: #### G BLANCA, LIPID ####[facility] [address] [address]Dr. Khadra Pascual Cholesterol in HDL [Mass/Vol] 50 mg/dL Normal 40-60 [facility] Comment on above: Performed By: #### G BLANCA, LIPID ####[facility] [address] [address]Dr. Khadra Pascual Cholesterol in LDL [Mass/Vol] 74.8 mg/dL Normal [facility] Comment on above: Performed By: #### G BLANCA, LIPID ####[facility] [address] [address]Dr. Khadra Pascual Cholesterol.total/Ch olesterol in HDL [Mass ratio] 3.3 {ratio} Normal [facility] Comment on above: Performed By: #### G BLANCA, LIPID ####[facility] [address] [id number]. Khadra Pascual HDL NORMAL > or = 60 mg/dl - LOW CARDIOVASCULAR RISK <40 mg/dl - HIGH CARDIOVASCULAR RISK Normal [facility] Comment on above: Performed By: #### G BLANCA, LIPID ####[facility] [address] [id number]. Sherlynusha Pascual LDL CALC NORMAL SEE BELOW Normal [facility] Comment on above: Result Comment: <100 mg/dl OPTIMAL 100 - 129 mg/dl NEAR OR ABOVE OPTIMAL 130 - 159 mg/dl BORDERLINE HIGH 160 - 189 mg/dl HIGH >190 mg/dl VERY HIGH Performed By: #### G BLANCA, LIPID ####[facility] [address] [address]Dr. Khadra Pascual Triglyceride [Mass/Vol] 191 mg/dL Critically high <=150 [facility] Comment on above: Performed By: #### G BLANCA, LIPID ####[facility] [address] [address]Dr. Sherlynusha Pascual VLDL CALC 38.2 mg/dL Normal [facility] Comment on above: Performed By: #### G BLANCA, LIPID ####[facility] [address] [address]Dr. Khadra Pascual XR WRIST RT MIN 3 Von 2021 XR WRIST RT MIN 3 V IMAGES REVIEWED: XR WRIST RT MIN 3 V COMPARISON: None available. CLINICAL INDICATION: Dog bite of wrist FINDINGS/IMPRESSION : 1. No radiopaque foreign bodies in the soft tissues of the right wrist. 2. No evidence of acute osseous abnormality. Electronically authenticated by: PHILL WEEKS Date: 2022-05-19 14:05 Normal [facility] Vital Signs Date Time Vital Sign Value Performing Clinician Hugh brandon 03-20-2025 14:00-0400 Body temperature 98.24 [degF] [facility] 03-20-2025 14:00-0400 Diastolic blood pressure 70 mm[Hg] [facility] 03-20-2025 14:00-0400 Mean blood pressure 86 mm[Hg] [facility] 03-20-2025 14:00-0400 Systolic blood pressure 118 mm[Hg] [facility] 03-20-2025 13:00-0400 Hourly Rounding [facility] 03-20-2025 13:00-0400 Promise to Return [facility] 03-20-2025 12:19-0400 Heart rate 68 /min [facility] 03-20-2025 12:19-0400 SaO2% (BldA) [Mass fraction] 98 % [facility] 03-20-2025 12:18-0400 Blood Pressure Location [facility] 03-20-2025 12:18-0400 Diastolic blood pressure 80 mm[Hg] [facility] 03-20-2025 12:18-0400 Mean blood pressure 104 mm[Hg] [facility] [facility] 03-[facility]2025 12:18-0400 Systolic blood pressure 153 mm[Hg] [facility] 03-20-2025 12:17-0400 Body temperature 96.98 [degF] [facility] 03-20-2025 12:00-0400 Hourly Rounding [facility] 03-20-2025 12:00-0400 Promise to Return [facility] 03-20-2025 11:25-0400 Heart rate 80 /min [facility] 03-20-2025 11:25-0400 Respiratory rate 18 /min [facility] 03-20-2025 11:12-0400 Heart rate 72 /min [facility] 03-20-2025 11:12-0400 Respiratory rate 18 /min [facility] 03-20-2025 11:12-0400 SaO2% (BldA) [Mass fraction] 97 % [facility] 03-20-2025 11:00-0400 Hourly Rounding [facility] 03-20-2025 11:00-0400 Promise to Return [facility] 03-20-2025 08:26-0400 Respiratory rate 18 /min [facility] 03-20-2025 08:10-0400 SaO2% (BldA) [Mass fraction] 93 % [facility] 03-20-2025 07:00-0400 Body temperature 97.52 [degF] [facility] 03-20-2025 07:00-0400 Diastolic blood pressure 81 mm[Hg] [facility] 03-20-2025 07:00-0400 Systolic blood pressure 150 mm[Hg] [facility] 03-19-2025 21:01-0400 Body temperature 97.88 [degF] [facility] 03-19-2025 21:01-0400 Mean blood pressure 91 mm[Hg] [facility] 03-19-2025 11:15-0400 Body temperature 97.88 [degF] [facility] 03-19-2025 11:15-0400 Mean blood pressure 70 mm[Hg] [facility] 03-19-2025 07:37-0400 Body temperature 97.34 [degF] [facility] 03-19-2025 07:36-0400 Mean blood pressure 74 mm[Hg] [facility] 03-18-2025 17:40-0400 Heart rate 75 /min [facility] 03-18-2025 17:25-0400 Heart rate 80 /min [facility] 03-18-2025 17:20-0400 Respiratory rate 19 /min [facility] 03-18-2025 17:19-0400 Respiratory rate 20 /min [facility] 03-18-2025 17:00-0400 Respiratory rate 19 /min [facility] 03-18-2025 13:53-0400 Heart rate 79 /min [facility] 02-25-2025 13:44-0400 Body height 157.5 cm Lissett Lowe PA Work Phone: [facility] [employer] 02-25-2025 13:44-0400 Body mass index (BMI) [Ratio] 29.26 kg/m2 Lissett Lowe PA Work Phone: [facility] 02-25-2025 13:44-0400 Body weight 72.58 kg Lissett Lowe PA Work Phone: [facility] 02-25-2025 13:44-0400 Diastolic blood pressure 90 mm[Hg] Lissett Khane PA Work Phone: [facility] 02-25-2025 13:44-0400 Systolic blood pressure 144 mm[Hg] Lissett Lowe PA Work Phone: [facility] 01-07-2025 11:52-0500 Blood Pressure Location [facility] 01-07-2025 11:52-0500 Diastolic blood pressure 92 mm[Hg] [facility] 01-07-2025 11:52-0500 Heart rate 85 /[facility] 01-07-2025 11:52-0500 Respiratory rate 16 /min [facility] 01-07-2025 11:52-0500 SaO2% (BldA) [Mass fraction] 93 % [facility] 01-07-2025 11:52-0500 Systolic blood pressure 154 mm[Hg] Lexis M[facility] 11-26-2024 15:00-0500 Hourly Rounding Ronobir H[facility] 11-26-2024 15:00-0500 Promise to Return Ronobir [facility] 11-26-2024 14:00-0500 Hourly Rounding Ronobir [facility] 11-26-2024 14:00-0500 Promise to Return Ronobir [facility] 11-26-2024 13:00-0500 Hourly Rounding Ronobir [facility] 11-26-2024 13:00-0500 Promise to Return Ronobir [facility] 11-26-2024 12:11-0500 Heart rate 86 /min Ronobir [facility] 11-26-2024 12:11-0500 Respiratory rate 20 /min Ronobir [facility] 11-26-2024 12:01-0500 Heart rate 84 /min Ronobir [facility] 11-26-2024 12:01-0500 Respiratory rate 20 /min Ronobir [facility] 11-26-2024 12:01-0500 SaO2% (BldA) [Mass fraction] 96 % Ronobir [facility] 11-26-2024 11:31-0500 Heart rate 83 /min Ronobir [facility] 11-26-2024 11:31-0500 SaO2% (BldA) [Mass fraction] 93 % Ronobir [facility] 11-26-2024 11:30-0500 Blood Pressure Location Ronobir [facility] 11-26-2024 11:30-0500 Diastolic blood pressure 79 mm[Hg] Ronobir [facility] 11-26-2024 11:30-0500 Mean blood pressure 98 mm[Hg] Ronobir [facility] 11-26-2024 11:30-0500 Systolic blood pressure 135 mm[Hg] Ronobir [facility] 11-26-2024 11:30-0500 Body temperature 98.42 [degF] Ronobir [facility] 11-26-2024 08:24-0500 SaO2% (BldA) [Mass fraction] 92 % Ronobir [facility] 11-26-2024 08:23-0500 Blood Pressure Location Ronobir [facility] 11-26-2024 08:23-0500 Diastolic blood pressure 90 mm[Hg] Ronobir [facility] 11-26-2024 08:23-0500 Mean blood pressure 116 mm[Hg] Ronobir [facility] 11-26-2024 08:23-0500 Systolic blood pressure 167 mm[Hg] Ronobir [facility] 11-26-2024 08:23-0500 Body temperature 97.34 [degF] Ronobir [facility] 11-26-2024 07:38-0500 Respiratory rate 20 /min Ronobir [facility] 11-26-2024 03:30-0500 Blood Pressure Location Ronobir [facility] 11-26-2024 03:30-0500 Body temperature 97.16 [degF] Ronobir [facility] 11-26-2024 03:30-0500 Diastolic blood pressure 76 mm[Hg] Ronobir [facility] 11-26-2024 03:30-0500 Mean blood pressure 96 mm[Hg] Ronobir [facility] 11-26-2024 03:30-0500 Systolic blood pressure 135 mm[Hg] Ronobir [facility] 11-25-2024 23:45-0500 Body temperature 97.52 [degF] Ronobir [facility] 11-25-2024 23:45-0500 Mean blood pressure 104 mm[Hg] Ronobir [facility] 11-25-2024 21:08-0500 Heart rate 74 /min Ronobir [facility] 11-25-2024 19:28-0500 Body temperature 97.52 [degF] Ronobir [facility] 11-25-2024 19:28-0500 Mean blood pressure 104 mm[Hg] Ronobir [facility] 11-25-2024 17:22-0500 Mean blood pressure 115 mm[Hg] Ronobir [facility] 11-24-2024 22:14-0500 Heart rate 86 /min Ronobir [facility] 11-24-2024 20:45-0500 Heart rate 78 /min Ronobir [facility] 11-24-2024 20:18-0500 Respiratory rate 16 /min Ronobir [facility] 11-24-2024 20:14-0500 Respiratory rate 18 /min Ronobir [facility] 11-24-2024 19:20-0500 Respiratory rate 18 /min Ronobir [facility] 11-13-2024 10:58-0500 Blood Pressure Location [facility] 11-13-2024 10:58-0500 Diastolic blood pressure 66 mm[Hg] Amilcar Matthews [facility] 11-13-2024 10:58-0500 Heart rate 77 /min Amilcar Matthews [facility] 11-13-2024 10:58-0500 Respiratory rate 16 /min Amilcar Matthews [facility] 11-13-2024 10:58-0500 SaO2% (BldA) [Mass fraction] 92 % Amilcar Matthews [facility] 11-13-2024 10:58-0500 Systolic blood pressure 99 mm[Hg] Aimlcar Matthews [facility] 10-29-2024 13:00-0500 Hourly Rounding [facility] 10-29-2024 13:00-0500 Promise to Return [facility] 10-29-2024 12:00-0500 Hourly Rounding [facility] 10-29-2024 12:00-0500 Promise to Return [facility] 10-29-2024 11:52-0500 Heart rate 82 /min [facility] 10-29-2024 11:52-0500 Respiratory rate 18 /min [facility] 10-29-2024 11:52-0500 SaO2% (BldA) [Mass fraction] 98 % [facility] 10-29-2024 11:25-0500 Heart rate 80 /min [facility] 10-29-2024 11:25-0500 Respiratory rate 18 /min [facility] 10-29-2024 11:25-0500 SaO2% (BldA) [Mass fraction] 97 % [facility] 10-29-2024 11:22-0500 Heart rate 76 /min [facility] 10-29-2024 11:22-0500 SaO2% (BldA) [Mass fraction] 94 % [facility] 10-29-2024 11:22-0500 Respiratory rate 18 /min [facility] 10-29-2024 11:22-0500 Diastolic blood pressure 79 mm[Hg] [facility] 10-29-2024 11:22-0500 Mean blood pressure 98 mm[Hg] [facility] 10-29-2024 11:22-0500 Systolic blood pressure 137 mm[Hg] [facility] 10-29-2024 11:22-0500 Body temperature 98.24 [degF] [facility] 10-29-2024 11:01-0500 Hourly Rounding [facility] 10-29-2024 11:01-0500 Promise to Return [facility] 10-29-2024 11:00-0500 Diastolic blood pressure 102 mm[Hg] [facility] 10-29-2024 11:00-0500 Systolic blood pressure 159 mm[Hg] [facility] 10-29-2024 10:06-0500 Blood Pressure Location [facility] 10-29-2024 10:06-0500 Body temperature 98.6 [degF] [facility] 10-29-2024 10:06-0500 Diastolic blood pressure 83 mm[Hg] [facility] 10-29-2024 10:06-0500 Heart rate 79 /min [facility] 10-29-2024 10:06-0500 Systolic blood pressure 153 mm[Hg] [facility] 10-29-2024 09:39-0500 Mean blood pressure 92 mm[Hg] [facility] 10-29-2024 09:39-0500 Respiratory rate 14 /min [facility] 10-29-2024 09:17-0500 Mean blood pressure 121 mm[Hg] [facility] 10-29-2024 09:17-0500 Respiratory rate 15 /min [facility] 10-29-2024 08:45-0500 Respiratory rate 17 /min [facility] 10-29-2024 07:42-0500 Body temperature 98.24 [degF] [facility] 10-29-2024 07:42-0500 Heart rate 83 /min [facility] 10-10-2024 16:00-0500 Diastolic blood pressure 105 mm[Hg] Dioni Gallardo [facility] 10-10-2024 16:00-0500 Heart rate 66 /min Dioni Sami [facility] 10-10-2024 16:00-0500 Hourly Rounding Dioni Sami [facility] 10-10-2024 16:00-0500 Mean blood pressure 136 mm[Hg] Dioni Sami [facility] 10-10-2024 16:00-0500 SaO2% (BldA) [Mass fraction] 94 % Dioni Sami [facility] 10-10-2024 16:00-0500 Systolic blood pressure 199 mm[Hg] Dioni Sami [facility] 10-10-2024 15:00-0500 Diastolic blood pressure 91 mm[Hg] Dioni Sami [facility] 10-10-2024 15:00-0500 Hourly Rounding Dioni Sami [facility] 10-10-2024 15:00-0500 Mean blood pressure 123 mm[Hg] Dioni Sami [facility] 10-10-2024 15:00-0500 SaO2% (BldA) [Mass fraction] 93 % Dioni Sami [facility] 10-10-2024 15:00-0500 Systolic blood pressure 187 mm[Hg] Dioni Sami [facility] 10-10-2024 14:00-0500 Diastolic blood pressure 90 mm[Hg] Dioni Sami [facility] 10-10-2024 14:00-0500 Heart rate 63 /min Dioni Sami [facility] 10-10-2024 14:00-0500 Hourly Rounding Dioni Sami [facility] 10-10-2024 14:00-0500 Mean blood pressure 122 mm[Hg] Dioni Gallardo [facility] 10-10-2024 14:00-0500 SaO2% (BldA) [Mass fraction] 92 % Dioni Gallardo [facility] 10-10-2024 13:12-0500 Body temperature 98.06 [degF] Dioni Gallardo [facility] 10-10-2024 13:12-0500 Heart rate 73 /min Dioni Gallardo [facility] 10-10-2024 13:12-0500 Respiratory rate 20 /min Dioni Gallardo [facility] 10-03-2024 11:21-0500 Blood Pressure Location Amilcar Matthews [facility] 10-03-2024 11:21-0500 Diastolic blood pressure 100 mm[Hg] Amilcar Matthews [facility] 10-03-2024 11:21-0500 Heart rate 84 /min Amilcar Matthews [facility] 10-03-2024 11:21-0500 Respiratory rate 18 /min Amilcar Matthews [facility] 10-03-2024 11:21-0500 SaO2% (BldA) [Mass fraction] 90 % Amilcar Matthews [facility] 10-03-2024 11:21-0500 Systolic blood pressure 180 mm[Hg] Amilcar Matthews [facility] 08-13-2024 18:00-0400 [facility] 08-13-2024 18:00-0400 Promise to Return [facility] 08-13-2024 17:44-0400 Hourly Rounding [facility] 08-13-2024 17:44-0400 Promise to Return [facility] 08-13-2024 17:13-0400 Heart rate 70 /min [facility] 08-13-2024 17:13-0400 Respiratory rate 18 /min [facility] 08-13-2024 17:13-0400 SaO2% (BldA) [Mass fraction] 99 % [facility] 08-13-2024 17:06-0400 Blood Pressure Location [facility] 08-13-2024 17:06-0400 Body temperature 97.34 [degF] [facility] 08-13-2024 17:06-0400 Diastolic blood pressure 78 mm[Hg] [facility] 08-13-2024 17:06-0400 Heart rate 78 /min [facility] 08-13-2024 17:06-0400 SaO2% (BldA) [Mass fraction] 93 % [facility] 08-13-2024 17:06-0400 Systolic blood pressure 128 mm[Hg] [facility] 08-13-2024 17:05-0400 SaO2% (BldA) [Mass fraction] 93 % [facility] 08-13-2024 17:03-0400 Heart rate 75 /min [facility] 08-13-2024 17:03-0400 Respiratory rate 18 /min [facility] 08-13-2024 16:00-0400 Hourly Rounding [facility] 08-13-2024 16:00-0400 Promise to Return [facility] 08-13-2024 14:35-0400 Diastolic blood pressure 74 mm[Hg] [facility] 08-13-2024 14:35-0400 Heart rate 76 /min [facility] 08-13-2024 14:35-0400 Mean blood pressure 91 mm[Hg] [facility] 08-13-2024 14:35-0400 Respiratory rate 19 /min [facility] 08-13-2024 14:35-0400 Systolic blood pressure 126 mm[Hg] [facility] 08-13-2024 13:15-0400 Diastolic blood pressure 62 mm[Hg] [facility] 08-13-2024 13:15-0400 Mean blood pressure 79 mm[Hg] [facility] 08-13-2024 13:15-0400 Respiratory rate 22 /min [facility] 08-13-2024 13:15-0400 Systolic blood pressure 114 mm[Hg] [facility] 08-13-2024 12:13-0400 Mean blood pressure 83 mm[Hg] [facility] 08-13-2024 12:13-0400 Respiratory rate 24 /min [facility] 08-13-2024 08:51-0400 Body temperature 98.6 [degF] [facility] 08-13-2024 08:51-0400 Heart rate 82 /min [facility] 08-13-2024 08:51-0400 Respiratory rate 18 /min [facility] 07-04-2024 13:01-0400 Blood Pressure Location mAilcar Matthews [facility] 07-04-2024 13:01-0400 Diastolic blood pressure 86 mm[Hg] Amilcar Matthews [facility] 07-04-2024 13:01-0400 Heart rate 85 /min Amilcar Matthews [facility] 07-04-2024 13:01-0400 Respiratory rate 16 /min Amilcar Matthews [facility] 07-04-2024 13:01-0400 SaO2% (BldA) [Mass fraction] 93 % Amilcar Matthews [facility] 07-04-2024 13:01-0400 Systolic blood pressure 132 mm[Hg] Amilcar Matthews [facility] 05-30-2024 10:40-0400 Diastolic blood pressure 106 mm[Hg] Amilcar Matthews [facility] 05-30-2024 10:40-0400 Mean blood pressure 128 mm[Hg] Amilcar Matthews [facility] 05-30-2024 10:40-0400 Systolic blood pressure 172 mm[Hg] Amilcar Matthews [facility] 05-30-2024 10:30-0400 Blood Pressure Location Amilcar Matthews [facility] 05-30-2024 10:30-0400 Diastolic blood pressure 110 mm[Hg] Amilcar Matthews [facility] 05-30-2024 10:30-0400 Heart rate 81 /min Amilcar Matthews [facility] 05-30-2024 10:30-0400 Respiratory rate 20 /min Amilcar Matthews [facility] 05-30-2024 10:30-0400 SaO2% (BldA) [Mass fraction] 92 % Amilcar Matthews [facility] 05-30-2024 10:30-0400 Systolic blood pressure 180 mm[Hg] Amilcar Matthews [facility] 05-16-2024 12:44-0400 Hourly Rounding Ephraim OCHRISTIEWU [facility] 05-16-2024 12:44-0400 Promise to Return Mbanefo OJUAlfWU [facility] 05-16-2024 11:44-0400 Hourly Rounding Mbanefo OJUKWU [facility] 05-16-2024 11:44-0400 Promise to Return Mbanefo OJUKWU [facility] 05-16-2024 11:00-0400 Body temperature 97.34 [degF] Mbanefo OJUKWU [facility] 05-16-2024 11:00-0400 Diastolic blood pressure 81 mm[Hg] Mbanefo OJUKWU [facility] 05-16-2024 11:00-0400 Heart rate 76 /min Mbanefo OJUKWU [facility] 05-16-2024 11:00-0400 SaO2% (BldA) [Mass fraction] 95 % Mbanefo OJUKWU [facility] 05-16-2024 11:00-0400 Systolic blood pressure 137 mm[Hg] Mbanefo OJUKWU [facility] 05-16-2024 10:44-0400 Hourly Rounding Mbanefo OJUKWU [facility] 05-16-2024 10:44-0400 Promise to Return Mbanefo OJUKWU [facility] 05-16-2024 08:24-0400 SaO2% (BldA) [Mass fraction] 93 % Mbanefo OJUKWU [facility] 05-16-2024 04:23-0400 Heart rate 83 /min Mbanefo OJUKWU [facility] 05-16-2024 04:23-0400 SaO2% (BldA) [Mass fraction] 92 % Mbanefo OJUKWU [facility] 05-16-2024 04:23-0400 Respiratory rate 18 /min Mbanefo OJUKWU [facility] 05-16-2024 04:22-0400 Body temperature 97.7 [degF] Mbanefo OJUKWU [facility] 05-16-2024 04:22-0400 Blood Pressure Location Mbanefo OJUKWU [facility] 05-16-2024 04:22-0400 BP/Pulse Patient Position Mbanefo OJUKWU [facility] 05-16-2024 04:22-0400 Diastolic blood pressure 71 mm[Hg] Mbanefo OJUKWU [facility] 05-16-2024 04:22-0400 Mean blood pressure 83 mm[Hg] Mbanefo OJUKWU [facility] 05-16-2024 04:22-0400 Systolic blood pressure 108 mm[Hg] Mbanefo OJUKWU [facility] 05-16-2024 00:50-0400 Blood Pressure Location Mbanefo OJUKWU [facility] 05-16-2024 00:50-0400 Body temperature 97.52 [degF] Mbanefo OJUKWU [facility] 05-16-2024 00:50-0400 Diastolic blood pressure 77 mm[Hg] Mbanefo OJUKWU [facility] 05-16-2024 00:50-0400 Heart rate 101 /min Mbanefo OJUKWU [facility] 05-16-2024 00:50-0400 Mean blood pressure 97 mm[Hg] Mbanefo OJUKWU [facility] 05-16-2024 00:50-0400 Respiratory rate 16 /min Mbanefo OJUKWU [facility] 05-16-2024 00:50-0400 Systolic blood pressure 136 mm[Hg] Mbanefo OJUKWU [facility] 05-15-2024 19:46-0400 Mean blood pressure 113 mm[Hg] Mbanefo OJUKWU [facility] 05-15-2024 19:46-0400 Body temperature 98.6 [degF] Mbanefo OJUKWU [facility] 05-15-2024 19:00-0400 Respiratory rate 18 /min Mbanefo OJUKWU [facility] 05-15-2024 17:00-0400 Heart rate 91 /min Mbanefo OJUKWU [facility] 05-15-2024 17:00-0400 Mean blood pressure 120 mm[Hg] Mbanefo OJUKWU [facility] 05-15-2024 16:14-0400 Body temperature 97.88 [degF] Mbanefo OJUKWU [facility] 05-15-2024 16:14-0400 Heart rate 78 /min Mbanefo OJUKWU [facility] 05-15-2024 15:46-0400 Mean blood pressure 128 mm[Hg] Mbanefo OJUKWU [facility] 05-15-2024 13:17-0400 Heart rate 78 /min Ephraim JONESU [facility] 01-06-2024 13:26-0500 Diastolic blood pressure 82 mm[Hg] Tiffany Christofferson [facility] 01-06-2024 13:26-0500 Heart rate 82 /min Tiffany Christofferson [facility] 01-06-2024 13:26-0500 SaO2% (BldA) [Mass fraction] 92 % Tiffany Christofferson [facility] 01-06-2024 13:26-0500 Systolic blood pressure 142 mm[Hg] Tiffany Christofferson [facility] 12-01-2023 10:59-0500 Blood Pressure Location Tiffany Christofferson [facility] 12-01-2023 10:59-0500 Diastolic blood pressure 76 mm[Hg] Tiffany Christofferson [facility] 12-01-2023 10:59-0500 Heart rate 88 /min Tiffany Christofferson [facility] 12-01-2023 10:59-0500 SaO2% (BldA) [Mass fraction] 95 % Tiffany Christofferson [facility] 12-01-2023 10:59-0500 Systolic blood pressure 120 mm[Hg] Tiffany Christofferson [facility] 10-26-2023 11:15-0500 Body height 157.5 cm Harika Castrejon MD Work Phone: [facility] 10-26-2023 11:15-0500 Body mass index (BMI) [Ratio] 29.15 kg/m2 Harika Castrejon MD Work Phone: [facility] 10-26-2023 11:15-0500 Body weight 72.3 kg Harika Castrejon MD Work Phone: [facility] 10-26-2023 11:15-0500 SaO2% (BldA) [Mass fraction] 99 % Harika Castrejon MD Work Phone: [facility] 10-26-2023 10:56-0500 Body temperature 36 [degF] Harika Castrejon MD Work Phone: [facility] 10-26-2023 10:56-0500 Diastolic blood pressure 73 mm[Hg] Harika Castrejon MD Work Phone: [facility] 10-26-2023 10:56-0500 Heart rate 75 /min Harika Castrejon MD Work Phone: [facility] 10-26-2023 10:56-0500 Respiratory rate 18 /min Harika Castrejon MD Work Phone: [facility] 10-26-2023 10:56-0500 Systolic blood pressure 121 mm[Hg] Harika Castrejon MD Work Phone: [facility] 09-07-2023 12:08-0400 Diastolic blood pressure 73 mm[Hg] Tiffany Jansen MD Work Phone: [facility] 09-07-2023 12:08-0400 Heart rate 85 /min Tiffany Jansen MD Work Phone: [facility] 09-07-2023 12:08-0400 Respiratory rate 18 /min Tiffany Jansen MD Work Phone: [facility] 09-07-2023 12:08-0400 SaO2% (BldA) [Mass fraction] 97 % Tiffany Jansen MD Work Phone: [facility] 09-07-2023 12:08-0400 Systolic blood pressure 150 mm[Hg] Tiffany Jansen MD Work Phone: [facility] 09-07-2023 08:13-0400 Body height 154.9 cm Tiffany Jansen MD Work Phone: [facility] 09-07-2023 08:13-0400 Body mass index (BMI) [Ratio] 29.95 kg/m2 Tiffany Jansen MD Work Phone: [facility] 09-07-2023 08:13-0400 Body temperature 97.5 [degF] Tiffany Jansen MD Work Phone: [facility] 09-07-2023 08:13-0400 Body weight 71.9 kg Tiffany Jansen MD Work Phone: [facility] 09-02-2023 13:33-0400 Hourly Rounding Ronobir HOMA [facility] 09-02-2023 13:33-0400 Promise to Return Ronobir HOMA [facility] 09-02-2023 12:40-0400 Heart rate 90 /min Ronobir HOMA [facility] 09-02-2023 12:40-0400 Respiratory rate 18 /min Ronobir HOMA [facility] 09-02-2023 12:40-0400 SaO2% (BldA) [Mass fraction] 93 % Ronobir HOMA [facility] 09-02-2023 12:27-0400 Heart rate 90 /min Ronobir HOMA [facility] 09-02-2023 12:21-0400 Hourly Rounding Ronobir H[facility] 09-02-2023 12:21-0400 Promise to Return Ronobir H[facility] 09-02-2023 11:24-0400 Heart rate 90 /min Ronobir HOMA [facility] 09-02-2023 11:24-0400 SaO2% (BldA) [Mass fraction] 91 % Ronobir HOMA [facility] 09-02-2023 11:24-0400 Body temperature 97.88 [degF] Ronobir HOMA [facility] 09-02-2023 11:24-0400 Diastolic blood pressure 69 mm[Hg] Ronobir HOMA [facility] 09-02-2023 11:24-0400 Mean blood pressure 80 mm[Hg] Ronobir HOMA [facility] 09-02-2023 11:24-0400 Systolic blood pressure 101 mm[Hg] Ronobir HOMA [facility] 09-02-2023 11:07-0400 Hourly Rounding Ronobir HOMA [facility] 09-02-2023 11:07-0400 Promise to Return Ronobir H[facility] 09-02-2023 08:25-0400 Heart rate 78 /min Ronobir HOMA [facility] 09-02-2023 08:25-0400 Respiratory rate 18 /min Ronobir H[facility] 09-02-2023 08:25-0400 SaO2% (BldA) [Mass fraction] 95 % Ronobir HOMA [facility] 09-02-2023 08:15-0400 Respiratory rate 18 /min Ronobir HOMA [facility] 09-02-2023 07:39-0400 Diastolic blood pressure 77 mm[Hg] Ronobir HOMA [facility] 09-02-2023 07:39-0400 Mean blood pressure 91 mm[Hg] Ronobir HOMA [facility] 09-02-2023 07:39-0400 Systolic blood pressure 121 mm[Hg] Ronobir HOMA [facility] 09-02-2023 07:37-0400 Body temperature 97.34 [degF] Ronobir HOMA [facility] 09-02-2023 04:00-0400 Blood Pressure Location Ronobir HOMA [facility] 09-02-2023 04:00-0400 Diastolic blood pressure 64 mm[Hg] Ronobir HOMA [facility] 09-02-2023 04:00-0400 Systolic blood pressure 105 mm[Hg] Ronobir HOMA [facility] 09-01-2023 21:57-0400 Blood Pressure Location Ronobir HOMA [facility] 09-01-2023 21:57-0400 Body temperature 97.52 [degF] Ronobir HOMA [facility] 09-01-2023 21:57-0400 Heart rate 82 /min Ronobir HOMA [facility] 09-01-2023 21:25-0400 Mean blood pressure 68 mm[Hg] Ronobir HOMA [facility] 09-01-2023 21:25-0400 Respiratory rate 20 /min Ronobir HOMA [facility] 09-01-2023 20:25-0400 Mean blood pressure 68 mm[Hg] Ronobir HOMA [facility] 09-01-2023 20:25-0400 Respiratory rate 17 /min Ronobir HOMA [facility] 09-01-2023 19:12-0400 Mean blood pressure 84 mm[Hg] Ronobir HOMA [facility] 09-01-2023 19:12-0400 Respiratory rate 16 /min Ronobir HOMA [facility] 09-01-2023 18:58-0400 Body temperature 98.24 [degF] Gavinobir HOMA [facility] 09-01-2023 18:58-0400 Heart rate 95 /min Gavinobir HOMA [facility] 09-01-2023 13:59-0400 Diastolic blood pressure 72 mm[Hg] Tiffany Jansen [facility] 09-01-2023 13:59-0400 Heart rate 89 /min Tiffany Jansen [facility] 09-01-2023 13:59-0400 SaO2% (BldA) [Mass fraction] 95 % Tiffany Jansen [facility] 09-01-2023 13:59-0400 Systolic blood pressure 118 mm[Hg] Tiffany Joyce [facility] 08-08-2023 16:00-0400 Diastolic blood pressure 95 mm[Hg] Lawrence Elise [facility] 08-08-2023 16:00-0400 Heart rate 87 /min Lawrence Sharmae [facility] 08-08-2023 16:00-0400 Mean blood pressure 115 mm[Hg] Lawrence Arik [facility] 08-08-2023 16:00-0400 Respiratory rate 15 /min Lawrence Sharmae [facility] 08-08-2023 16:00-0400 SaO2% (BldA) [Mass fraction] 96 % Lawrence Arik [facility] 08-08-2023 16:00-0400 Systolic blood pressure 154 mm[Hg] Lawrence Arik [facility] 08-08-2023 15:00-0400 Diastolic blood pressure 96 mm[Hg] Lawrence Arik [facility] 08-08-2023 15:00-0400 Heart rate 90 /min Lawrence Arik [facility] 08-08-2023 15:00-0400 Respiratory rate 13 /min Lawrence Sharmae [facility] 08-08-2023 15:00-0400 SaO2% (BldA) [Mass fraction] 95 % Lawrence Arik [facility] 08-08-2023 15:00-0400 Systolic blood pressure 152 mm[Hg] Lawrence Arik [facility] 08-08-2023 14:27-0400 Body temperature 98.42 [degF] Lawrence Arik [facility] 08-08-2023 14:27-0400 Diastolic blood pressure 86 mm[Hg] Lawrence Arik [facility] 08-08-2023 14:27-0400 Heart rate 95 /min Lawrence Arik [facility] 08-08-2023 14:27-0400 Respiratory rate 20 /min Lawrence Arik [facility] 08-08-2023 14:27-0400 SaO2% (BldA) [Mass fraction] 94 % Lawrence Arik [facility] 08-08-2023 14:27-0400 Systolic blood pressure 130 mm[Hg] Lawrence Elise [facility] 07-21-2023 14:13-0400 Diastolic blood pressure 78 mm[Hg] Tiffany Jansen [facility] 07-21-2023 14:13-0400 Heart rate 74 /min Tiffany Jansen [facility] 07-21-2023 14:13-0400 SaO2% (BldA) [Mass fraction] 96 % Tiffany Jansen [facility] 07-21-2023 14:13-0400 Systolic blood pressure 118 mm[Hg] Tiffany Jansen [facility] 07-10-2023 10:24-0400 Hourly Rounding Bruno ANTHONY [facility] 07-10-2023 10:24-0400 Promise to Return Bruno ANTHONY [facility] 07-10-2023 09:00-0400 Hourly Rounding Bruno ANTHONY [facility] 07-10-2023 09:00-0400 Promise to Return Bruno ANTHONY [facility] 07-10-2023 08:13-0400 SaO2% (BldA) [Mass fraction] 98 % Bruno ANTHONY [facility] 07-10-2023 07:07-0400 Hourly Rounding Bruno ANTHONY [facility] 07-10-2023 07:07-0400 Promise to Return Bruno ANTHONY [facility] 07-10-2023 07:00-0400 Body temperature 98.24 [degF] Bruno ANTHONY [facility] 07-10-2023 07:00-0400 Diastolic blood pressure 73 mm[Hg] Brunoserenity HANSONSLIN [facility] 07-10-2023 07:00-0400 Heart rate 91 /min Brunoserenity HANSONSLIN [facility] 07-10-2023 07:00-0400 Mean blood pressure 85 mm[Hg] Brunoserenity HANSONSLIN [facility] 07-10-2023 07:00-0400 Respiratory rate 16 /min Brunoserenity HANSONSLIN [facility] 07-10-2023 07:00-0400 Systolic blood pressure 108 mm[Hg] Brunoserenity HANSONSLIN [facility] 07-10-2023 04:00-0400 Body temperature 97.16 [degF] Brunoserenity HANSONSLIN [facility] 07-10-2023 04:00-0400 Diastolic blood pressure 67 mm[Hg] Brunoserenity HANSONSLIN [facility] 07-10-2023 04:00-0400 Heart rate 86 /min Brunoserenity HANSONSLIN [facility] 07-10-2023 04:00-0400 Mean blood pressure 84 mm[Hg] Brunoserenity HANSONSLIN [facility] 07-10-2023 04:00-0400 Respiratory rate 15 /min Brunoserenity HANSONSLIN [facility] 07-10-2023 04:00-0400 SaO2% (BldA) [Mass fraction] 97 % Brunoserenity HANSONSLIN [facility] 07-10-2023 04:00-0400 Systolic blood pressure 109 mm[Hg] Brunoserenity HANSONSLIN [facility] 07-10-2023 03:30-0400 Diastolic blood pressure 55 mm[Hg] Bruno ANTHONY [facility] 07-10-2023 03:30-0400 Heart rate 84 /min Bruno ANTHONY [facility] 07-10-2023 03:30-0400 Mean blood pressure 69 mm[Hg] Bruno ANTHONY [facility] 07-10-2023 03:30-0400 Respiratory rate 17 /min Bruno ANTHONY [facility] 07-10-2023 03:30-0400 Systolic blood pressure 102 mm[Hg] Bruno ANTHONY [facility] 07-10-2023 00:00-0400 Body temperature 97.88 [degF] Brunoserenity HANSONSLIN [facility] 07-09-2023 19:56-0400 Heart rate 91 /min Bruno ANTHONY [facility] 07-09-2023 19:56-0400 Respiratory rate 11 /min Bruno ANTHONY [facility] 07-09-2023 19:33-0400 Heart rate 93 /min Bruno ANTHONY [facility] 07-09-2023 19:33-0400 Respiratory rate 30 /min Bruno ANTHONY [facility] 06-18-2023 08:06-0400 Body height 154.94 cm MD Fly Luis Work Phone: [facility] 06-18-2023 08:06-0400 Body weight 74.84 kg MD Fly Luis Work Phone: [facility] 05-13-2023 09:20-0400 Body height 157.48 cm Jose Cruz Other [employer] Other 05-13-2023 09:20-0400 Body mass index (BMI) [Ratio] 31.82 kg/m2 Jose Cruz Other [employer] Other 05-13-2023 09:20-0400 Body weight 78.93 kg Jose Anthony Other [employer] Other 05-13-2023 09:20-0400 Diastolic blood pressure 82 mm[Hg] Jose Anthony Other [employer] Other 05-13-2023 09:20-0400 Systolic blood pressure 130 mm[Hg] Jose Anthony Other [employer] Other 04-14-2023 16:45-0400 Body height 157.48 cm Brodie Arlette Other [employer] Other 04-14-2023 16:45-0400 Body mass index (BMI) [Ratio] 32.55 kg/m2 Brodiekrupa Chong Other [employer] Other 04-14-2023 16:45-0400 Body weight 80.74 kg Brodie Chong Other [employer] Other 04-14-2023 16:45-0400 Diastolic blood pressure 80 mm[Hg] Brodiekrupa Chong Other [employer] Other 04-14-2023 16:45-0400 Systolic blood pressure 140 mm[Hg] Brodiekrupa Chong Other [employer] Other 11-25-2022 15:53-0500 Blood Pressure Location Fly Luis [facility] 11-25-2022 15:53-0500 Diastolic blood pressure 94 mm[Hg] Fly Luis [facility] 11-25-2022 15:53-0500 Heart rate 97 /min Fly Luis [facility] 11-25-2022 15:53-0500 SaO2% (BldA) [Mass fraction] 96 % Fly Janelle [facility] 11-25-2022 15:53-0500 Systolic blood pressure 134 mm[Hg] Flysarabjit Luis [facility] 10-14-2022 15:41-0500 Blood Pressure Location Fly Luis [facility] 10-14-2022 15:41-0500 Diastolic blood pressure 84 mm[Hg] Fly Janelle [facility] 10-14-2022 15:41-0500 Heart rate 86 /min Fly Luis [facility] 10-14-2022 15:41-0500 SaO2% (BldA) [Mass fraction] 92 % Fly Janelle [facility] 10-14-2022 15:41-0500 Systolic blood pressure 118 mm[Hg] Flysarabjit Luis [facility] Encounters Encounter Date Encounter Type Care Provider Facility Start: 08-06-2025 ambulatory Philip Mares acility:[facility] Start: 06-19-2025 End: 06-19-2025 ambulatory MD Fly Luis Facility:[facility] Start: 06-14-2025 End: 06-14-2025 ambulatory [facility] Start: 06-05-2025 End: 06-05-2025 ambulatory SY BUTLER Facility:[facility] Start: 03-25-2025 End: 03-25-2025 ambulatory MD Fly Luis Facility:[facility] Start: 03-18-2025 End: 03-20-2025 ambulatory Edmund Klein Facility:[facility] Start: 03-18-2025 Emergency department patient visit Lawrence Elise Facility:[facility] Start: 03-18-2025 End: 03-20-2025 Observation Edmund Klein [facility] Start: 02-25-2025 End: 02-25-2025 Bamboo flowsheet Lissett Lowe PA Work Phone: [facility] Start: 02-25-2025 End: 02-25-2025 Bamboo flowsheet Lissett Lowe PA Work Phone: [facility] Start: 02-25-2025 End: 02-25-2025 Office outpatient visit 25 minutes Lissett Lowe PA Work Phone: [facility] Comment on above: Polyneuropathy (Prim meli Dx); Degeneration of intervertebral disc of lumbar region with discogenic back pain and lower extremity pain; Degenerative disc disease, cervical; Recurrent falls; Weakness Start: 02-25-2025 End: 02-25-2025 ambulatory LISSETT LOWE Not Available Start: 01-31-2025 ambulatory MD Fly Luis [facility] ity:[facility] Start: 01-24-2025 End: 01-24-2025 ambulatory MD Fly Luis Facility:[facility] Start: 01-07-2025 End: 01-07-2025 ambulatory MD Fly Luis Facility:[facility] Start: 01-07-2025 End: 01-07-2025 Patient encounter procedure Lexis Moe [facility] Start: 12-27-2024 End: 12-27-2024 ambulatory MD Fly [facility] Start: 12-04-2024 End: 12-04-2024 ambulatory Fly Luis Facility:[facility] Start: 11-27-2024 End: 12-10-2024 ambulatory MD Fly Luis Facility:CD:[id number] [phone] Start: 11-24-2024 End: 11-26-2024 ambulatory DO Alec LUTHER Facility:[facility] Start: 11-24-2024 Emergency department patient visit Fly Janelle Facility:[facility] Start: 11-24-2024 End: 11-26-2024 Observation Alec LUTHER [facility] Start: 11-13-2024 End: 11-13-2024 ambulatory LEATHA Matthews Facility:[facility] Start: 11-13-2024 End: 11-13-2024 Patient encounter procedure Amilcar Matthews [facility] Start: 10-31-2024 End: 10-31-2024 ambulatory Fly Luis [facility] Start: 10-30-2024 End: 11-12-2024 ambulatory Fly Luis Facility:CD:[id number] Start: 10-29-2024 End: 10-29-2024 ambulatory Edmund Klein Facility:[facility] Start: 10-29-2024 Emergency department patient visit Lawrence Arik Facility:[facility] Start: 10-29-2024 End: 10-29-2024 Observation Edmund Klein [facility] Start: 10-10-2024 End: 10-10-2024 Emergency department patient visit Dioni Gallardo [facility] Start: 10-08-2024 End: 10-08-2024 ambulatory Fly Luis [facility] Start: 10-03-2024 End: 10-03-2024 ambulatory Amilcar Matthews Facility:[facility] Start: 10-03-2024 End: 10-03-2024 Patient encounter procedure Amilcar Matthews [facility] Start: 10-01-2024 End: 10-30-2024 ambulatory Fly Luis Facility:[id number] Start: 08-14-2024 End: 08-27-2024 ambulatory Fly ArzatePascale Luis Facility:[id number] Start: 08-13-2024 End: 08-13-2024 ambulatory Eligio Lopez Facility:[facility] Start: 08-13-2024 Emergency department patient visit Ainsley Mahoneyrobin Facility:[facility] Start: 08-13-2024 End: 08-13-2024 Observation Eligio Lopez III [facility] Start: 07-04-2024 End: 07-04-2024 ambulatory XXXX NONE Facility:[facility] Start: 07-04-2024 End: 07-04-2024 Patient encounter procedure Amilcar Matthews [facility] Start: 06-12-2024 End: 06-21-2024 Pre-admission assessment Fly Jean Baptiste Janelle [facility] Start: 06-12-2024 End: 06-12-2024 ambulatory Fly Luis Facility:[facility] Start: 05-30-2024 End: 05-30-2024 Patient encounter procedure Amilcar Matthews [facility] Start: 05-15-2024 ambulatory Mbanefo OTIMKWU Facility :[facility] Start: 05-15-2024 Emergency department patient visit Fly Janelle Facility:[facility] Start: 05-15-2024 End: 05-16-2024 Observation Mbanefo OTIMKWU [facility] Start: 01-06-2024 End: 01-06-2024 ambulatory Tiffany Jansen Facility:[facility] Start: 01-06-2024 End: 01-06-2024 Patient encounter procedure Tiffany Jansen [facility] Start: 12-01-2023 End: 12-01-2023 ambulatory Tiffany Jansen Facility:[facility] Start: 12-01-2023 End: 12-01-2023 Patient encounter procedure Tiffany Jansen [facility] Start: 11-10-2023 ambulatory Tiffany Jansen Facility:[facility] Start: 10-31-2023 End: 10-31-2023 ambulatory Fly Luis Facility:[facility] Start: 10-26-2023 End: 10-26-2023 ambulatory HARIKA Salvador [facility] Start: 10-26-2023 End: 10-26-2023 Subsequent hospital visit by physician Harika Castrejon MD Work Phone: [facility] Comment on above: Acute ST elevation m yocardial infarction (STEMI) ([facility]/HCC) (Primary Dx); 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 ([facility]/HCC) Start: 10-25-2023 End: 10-25-2023 ambulatory Tiffany Jansen Facility:[facility] Start: 10-25-2023 End: 10-25-2023 Patient encounter procedure Tiffany Jansen [facility] Start: 10-24-2023 End: 10-25-2023 ambulatory HARIKA Salvador [facility] Start: 10-24-2023 End: 10-24-2023 Subsequent hospital visit by physician Outside Study [facility] Comment on above: [facility] Start: 10-13-2023 End: 10-13-2023 ambulatory Tiffany Jansen Facility:[facility] Start: 10-11-2023 End: 10-11-2023 [facility] Start: 10-11-2023 End: 10-11-2023 Office outpatient new 60 minutes Harika Castrejon MD Work Phone: [facility] Comment on above: HTN (hypertension), benign (Primary Dx); 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 (CMS/HCC) Start: 09-29-2023 End: 09-29-2023 Lab Drop off Fly Luis [facility] Start: 09-29-2023 End: 09-29-2023 ambulatory Fly Luis Facility:[facility] Start: 09-13-2023 End: 09-13-2023 ambulatory Fly Luis Facility:[facility] Start: 09-07-2023 End: 09-07-2023 ambulatory TIFFANY JANSEN [facility] Start: 09-07-2023 End: 09-07-2023 Subsequent hospital visit by physician Tiffany Jansen MD Work Phone: [facility] Comment on above: CAD (coronary artery disease) (Primary Dx); Coronary artery disease; Angina pectoris, unspecified (CMS/HCC) Start: 09-05-2023 End: 10-03-2023 ambulatory Fly Luis Facility:CD:[id number] [phone] Start: 09-01-2023 End: 09-02-2023 ambulatory Rosa Maria Frausto Facility:[facility] Start: 09-01-2023 End: 09-02-2023 Observation Alec LUTHER [facility] Start: 09-01-2023 End: 09-01-2023 ambulatory Tiffany Jansen Facility:[facility] Start: 09-01-2023 End: 09-01-2023 Patient encounter procedure Tiffany Jansen [facility] Start: 08-11-2023 End: 08-11-2023 ambulatory Fly Luis Facility:[facility] Start: 08-08-2023 End: 08-08-2023 Emergency department patient visit Lawrence Elise [facility] Start: 07-26-2023 End: 07-26-2023 ambulatory Jose Cruz Other [employer] Other Start: 07-26-2023 Telephone encounter Jose Cruz [facility] Digital [employer] Special[employer] Start: 07-21-2023 End: 07-21-2023 ambulatory Tiffany Jansen Facility:[facility] Start: 07-21-2023 End: 07-21-2023 Patient encounter procedure Tiffany Jansen [facility] Start: 07-13-2023 End: 07-13-2023 ambulatory Fyl Luis Facility:[facility] Start: 07-11-2023 End: 07-27-2023 ambulatory Fly Luis Facility:CD:[id number] [phone] Start: 07-09-2023 End: 07-10-2023 Evaluation and management of inpatient Bruno CRUZ [facility] Start: 06-18-2023 End: 06-18-2023 ambulatory MD Fly Luis Work Phone: [facility] Work Phone: Start: 06-18-2023 End: 06-18-2023 Patient encounter procedure MD Fly Luis Work Phone: [facility] [place] Work Phone: Start: 06-17-2023 End: 06-17-2023 ambulatory Sindhu Ennis Other [employer] Other Start: 06-17-2023 Telephone encounter Sindhu Ennis [employer] Start: 05-13-2023 End: 05-13-2023 ambulatory Jose Cruz Other [facility] [employer] Other Start: 05-13-2023 Office outpatient vi sit 15 minutes Jose Cruz [facility] Start: 05-12-2023 (PROC) PROCEDURE Brodie Arlette Baljinder [facility] Start: 05-12-2023 End: 05-12-2023 ambulatory Brodie Chong Other [facility] [employer] Other Start: 04-14-2023 Office outpatient vi sit 25 minutes Brodie Chong [facility] Start: 04-14-2023 End: 04-14-2023 ambulatory MD Fly Luis Work Phone: [facility] Work Phone: Start: 04-14-2023 End: 04-14-2023 Patient encounter procedure MD Fly Luis Work Phone: [facility] Work Phone: Start: 04-07-2023 Registered Recurring MD Fly Luis Work Phone: [facility] Start: 03-11-2023 ambulatory FLY LUIS Facilit y:[facility] Start: 02-14-2023 End: 02-15-2023 ambulatory FLY LUIS Facility:[facility] Start: 02-08-2023 End: 02-08-2023 ambulatory MD Fly Luis Work Phone: [facility] Work Phone: Start: 02-08-2023 End: 02-08-2023 Patient encounter procedure MD Fly Luis Work Phone: [facility] [address] Work Phone: Start: 12-07-2022 End: 12-08-2022 ambulatory FLY LUIS Facility:[facility] Start: 11-25-2022 End: 11-25-2022 Patient encounter procedure Fly Luis [facility] Start: 11-19-2022 End: 11-19-2022 Patient encounter procedure Fly Luis [facility] Start: 10-14-2022 End: 10-14-2022 Patient encounter procedure Fly Luis [facility] Start: 09-27-2022 ambulatory Fly Luis Facility :[facility] Start: 09-27-2022 End: 09-27-2022 Patient encounter procedure Fly Luis [facility] Start: 09-13-2022 End: 09-14-2022 ambulatory Fly Luis Facility:[facility] Start: 09-07-2022 End: 09-08-2022 ambulatory IRENA SANDHU Facility: Start: 08-30-2022 ambulatory Fly Luis Facility:[facility] Start: 05-19-2022 End: 05-19-[address] RENA STOVALL . Facility: Procedures Date Procedure Procedure Detail Performing Clinician Start: 10-26-2023 ECG 12-LEAD HARIKA URIBE Start: 10-26-2023 DISCHARGE PATIENT HARIKA IVERSONMIPARAMJIT Start: 10-26-2023 ACTIVATED CLOTTING T JUAN LOW HARIKA LUCEROOMMIPARAMJIT Start: 10-26-2023 CARDIAC CATHETERIZAT ION - CORONARY HARIKA IVERSONMIPARAMJIT Start: 10-26-2023 Ecg routine ecg w/le ast 12 lds trcg only w/o i&r Harika Castrejon MD Work Phone: Start: 10-26-2023 Cardiac catheterizat ion study Harika Castrejon MD Work Phone: Start: 10-26-2023 ECG 12-LEAD HARIKA URIBE Start: 10-26-2023 Basic metabolic 2000 panel - Serum or Plasma HARIKA CASTREJON Start: 10-26-2023 CBC panel - Blood by Automated count HARIKA CASTREJON Start: 10-26-2023 PROTIME-INR HARIKA URIBE Start: 10-26-2023 Ecg routine ecg w/le ast 12 lds trcg only w/o i&r Harika Castrejon MD Work Phone: Start: 10-26-2023 Basic metabolic pane l calcium total Harika Castrejon MD Work Phone: Start: 10-24-2023 CATH AND OR EP TEST NON BILL OUTSIDE STUDY ONLY Harika Castrejon MD Work Phone: Start: 10-05-2023 History of total hysterectomy History of total abdominal hysterectomy Harika Castrejon MD Work Phone: Start: 09-07-2023 DISCHARGE [...] TIFFANY JANSEN Start: 09-07-2023 ECG 12-LEAD TIFFANY SAHA ANDREWYULISA Start: 09-07-2023 Basic metabolic pane l calcium total Tiffany Jansen MD Work Phone: Start: 07-09-2023 Percutaneous coronar y intervention Lawrence Elies Start: 06-18-2023 MRI of lumbar spine with contrast MD Fly Luis Work Phone: Start: 04-14-2023 X-ray of cervical spine MD Fly Luis Work Phone: Start: 04-14-2023 X-ray of lumbar spin e, six views including bending views MD Fly Luis Work Phone: Start: 04-14-2023 Dual energy X-ray absorptiometry MD Fly Luis Work Phone: Start: 02-08-2023 MRI of cervical spin e without contrast MD Fly Luis Work Phone: Start: 02-08-2023 XR pre/post mri xray MD Fly Luis Work Phone: Start: 02-08-2023 MRI of head MD Fly Luis Work Phone: Angioplasty of blood vessel [...] - Tdap) DTaP/Tdap/Td Vaccines (2 - Tdap) [facility] Start: 12-09-2025 Pneumococcal Vaccine : 65+ Years (3 - PPSV23 or PCV20) Pneumococcal Vaccine: 65+ Years (3 - PPSV23 or PCV20) [facility] Start: 12-09-2025 Pneumococcal Vaccine : Pediatrics (0 to 5 Years) and At-Risk Patients (6 to 64 Years) (3 - PPSV23 or PCV20) Pneumococcal Vaccine: Pediatrics (0 to 5 Years) and At-Risk Patients (6 to 64 Years) (3 - PPSV23 or PCV20) [facility] Start: 09-26-2025 ambulatory Ambulatory Facility:[facility] Start: 02-25-2025 End: 02-25-2025 Patient encounter procedure 02/25/2025 1:40 PM EDT Office Visit [facility] [address] [place] [id number] Lissett Villegas PA [address] [place], [place] [id number] Arrived [facility]AGE Comment on above: Arrived Start: 10-26-2023 End: 10-26-2023 Admission to same day surgery center 10/26/2023 1:00 PM EST - 10/26/2023 4:00 PM EST Surgery [facility] [address] [place] [address] Harika Castrejon MD [address] [facility] [address] [place], [place] [id number] PCI MYNOR Stent- PCI 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 (61283) [90568 (CPT )] [facility] Comment on above: PCI MYNOR Stent- PCI C TO RCA (83639) [01302 (CPT )] Start: 10-26-2023 Subsequent hospital visit by physician 10/26/2023 1:00 PM EST Hospital Encounter [facility] [address] [place] [id number] Harika Castrejon MD [address] [facility] [address] [place] [address] 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 (CMS/HCC) [facility] Comment on above: Coronary artery dise ase involving [place] coronary artery of [place] heart with refractory angina pectoris (CMS/HCC) Start: 07-15-2023 Influenza vaccination Influenza Vacc ine (#1) [facility] Start: 2009 Screening for malign ant neoplasm of lung Lung Cancer Screening [facility] Start: 2009 Zoster Vaccines (1 o f 2) Zoster Vaccines (1 of 2) [facility] Start: 1999 Screening for malign ant neoplasm of breast Mammogram [facility] Start: 1980 Screening for malign ant neoplasm of cervix [facility] Start: 1977 Diabetes mellitus screening Diabetes Screening [facility] Start: 1977 Hepatitis C screening Hepatitis C Sc reening [facility] Start: 1960 MMR Vaccines (1 of 1 - Standard series) MMR Vaccines (1 of 1 - Standard series) [facility] Start: 04-17-1960 COVID-19 Vaccine (#1) COVID-19 Vacci ne (#1) [facility] Start: 1959 HIV screening HIV Screening [facility] Start: 1959 Lipid panel Lipid Panel [facility] Start: 1959 Medicare Annual Wellness Visit Medicare Annual Wellness Visit (AWV) [facility] Start: 1959 Screening for malign ant neoplasm of colon [facility] End: 09-07-2023 ECG 12 Lead [facility] Service Area Work Phone: Comment on above: Once for 1 Occurrenc es starting 09/07/2023 until 09/07/2023 ECG 12 Lead ECG 12 Lead ECG Routine 10/26/2023 11:16 AM EST [facility] Service Area Work Phone: ECG 12 Lead ECG 12 Lead ECG Routine 10/26/2023 3:22 PM EST [facility] Work Phone: End: 09-07-2023 Glucose [Mass/volume] in Serum or Plasma POCT Glucose Point of Care Testing - Docked Device Routine Once (Lab) for 1 Occurrences starting 09/07/2023 until 09/07/2023 [facility] Work Phone: Comment on above: Once (Lab) for 1 Occ urrences starting 09/07/2023 until 09/07/2023 End: 09-07-2023 XR Chest 2 Views [facility] Work Phone: Comment on above: Once for 1 Occurrenc es starting 09/07/2023 until 09/07/2023 [facility] Immunizations Immunization Date Immunization Notes Care Provider Edna martino 09-29-2023 influenza, injectable, quadrivalent, preservative free [facility] 10-14-2022 influenza, injectable, quadrivalent, preservative free Fly Janelle [facility] 10-14-2022 influenza virus vaccine, unspecified formulation Tiffany Jansen MD Work Phone: [facility] Work Phone: 09-15-2021 influenza virus vaccine, unspecified formulation Bruno CRUZ [facility] 12-09-2020 pneumococcal polysaccharide vaccine, 23 valent Fly Luis [facility] 09-09-2020 influenza virus vaccine, unspecified formulation Bruno CRUZ [facility] 07-15-2014 pneumococcal conjugate vaccine, 13 valent Fly Luis [facility] NEGATED: Highlighted row has not occurred!09-13-2022 influenza virus vaccine, unspecified formulation Fly Janelle [facility] Payers Date Payer Category Payer Medicare (Managed Care) 1.2. [id number] 2023 Self-pay [id number] 2019 Private Health Insurance [id number] 2017 Medicaid [id number] 2017 Private Health Insurance [id number] 1959 Medicaid [id number] 1959 Private Health Insurance [id number] 1959 Unknown [id number] 2.16.8 40.1.948504.3.579.2.727 1959 Unknown [id number] 2.16.8 40.1.352197.3.579.2.727 1959 Unknown [id number] 2.16.84 0.1.067124.3.579.2.593 1959 Unknown [id number] 2.16.84 0.1.895851.3.579.2.593 1959 Unknown [id number] 2.16.84 0.1.358685.3.579.2.593 1959 Unknown [id number] 2.16.84 0.1.806125.3.579.2.593 1959 Unknown [id number] 2.16.84 0.1.375274.3.579.2.593 1959 Unknown [id number] 2.16.8 40.1.506742.3.579.2.1244 1959 Unknown [id number] 2.16.8 40.1.076790.3.579.2.1245 1959 Unknown [id number] 2.16.84 0.1.291131.3.579.2.1247 1959 Unknown [id number] 2.16.8 40.1.985906.3.579.2.727 1959 Unknown [id number] 2.16.8 40.1.180661.3.579.2.727 1959 Unknown [id number] 2.16.8 40.1.443294.3.579.2.727 1959 Unknown [id number] 2.16.8 40.1.838862.3.579.2.727 1959 Unknown [id number] 2.16.8 40.1.807994.3.579.2.727 1959 Unknown [id number] 2.16.8 40.1.541959.3.579.2.72 1959 Unknown [id number] 2.16.8 40.1.526449.3.579.2.727 1959 Unknown [id number] 2.16.8 40.1.422698.3.579.2. 1959 Unknown [id number] 2.16.8 40.1.907726.3.579.2. 1959 Unknown [id number] 2.16.8 40.1.153299.3.579.2. 1959 Unknown [id number] 2.16.8 40.1.846684.3.579.2. 1959 Unknown [id number] 2.16.8 40.1.554729.3.579.2 1959 Unknown [id number] 2.16.8 40.1.746109.3.579.2 1959 Unknown [id number] 2.16.8 40.1.608961.3.579.2 1959 Unknown [id number] 2.16.8 40.1.366835.3.579.2.7 1959 Unknown [id number] 2.16.8 40.1.072727.3.579.2. 1959 Unknown [id number] 2.16.8 40.1.582317.3.579.2. 1959 Unknown [id number] 2.16.8 40.1.023796.3.579.2 1959 Unknown [id number] 2.16.8 40.1.809947.3.579.2. 1959 Unknown [id number] 2.16.8 40.1.034482.3.579.2 1959 Unknown [id number] 2.16.840 .1.312620.3.579.2.1246 1959 Unknown [id number] 2.16.8 40.1.768325.3.579.2.1246 1959 Unknown [id number] 2.16.8 40.1.506622.3.579.2.727 1959 Unknown [id number] 2.16.8 40.1.084853.3.579.2.727 1959 Unknown [id number] 2.16.8 40.1.253448.3.579.2.72 1959 Unknown [id number] 2.16.8 40.1.817883.3.579.2.727 1959 Unknown [id number] 2.16.8 40.1.480455.3.579.2.727 1959 Unknown [id number] 2.16.8 40.1.663713.3.579.2.727 1959 Unknown [id number] 2.16.8 40.1.371489.3.579.2.727 1959 Unknown [id number] 2.16.8 40.1.722049.3.579.2.727 1959 Unknown [id number] 2.16.8 40.1.530300.3.579.2.727 1959 Unknown [id number] 2.16.8 40.1.159685.3.579.2.727 1959 Unknown [id number] 2.16.8 40.1.250417.3.579.2.727 1959 Unknown [id number] 2.16.8 40.1.419385.3.579.2.727 1959 Unknown [id number] 2.16.8 40.1.808958.3.579.2.72 1959 Unknown [id number] 2.16.8 40.1.185992.3.579.2.727 1959 Unknown [id number] 2.16.8 40.1.918290.3.579.2.727 1959 Unknown [id number] 2.16.8 40.1.432872.3.579.2.727 1959 Unknown [id number] 2.16.84 0.1.208857.3.579.2.1259 1959 Unknown [id number] 2.16.8 40.1.605630.3.579.2.727 1959 Unknown [id number] 2.16.8 40.1.755092.3.579.2. 1959 Unknown [id number] 2.16.8 40.1.361702.3.579.2. 1959 Unknown [id number] 2.16.8 40.1.224104.3.579.2. 1959 Unknown [id number] 2.16.8 40.1.601036.3.579.2. 1959 Unknown [id number] 2.16.8 40.1.632029.3.579.2.727 1959 Unknown [id number] 2.16.8 40.1.782442.3.579.2. 1959 Unknown [id number] 2.16.8 40.1.903801.3.579.2. 1959 Unknown [id number] 2.16.8 40.1.323740.3.579.2.72 1959 Unknown [id number] 2.16.8 40.1.222505.3.579.2.7 1959 Unknown [id number] 2.16.8 40.1.235735.3.579.2.72 1959 Unknown [id number] 2.16.8 40.1.325440.3.579.2.727 1959 Unknown [id number] 2.16.8 40.1.908549.3.579.2.727 1959 Unknown [id number] 2.16.8 40.1.715749.3.579.2.727 1959 Unknown [id number] 2.16.8 40.1.830049.3.579.2.727 1959 Unknown [id number] 2.16.8 40.1.518153.3.579.2.727 1959 Unknown [id number] 2.16.8 40.1.642254.3.579.2.727 1959 Unknown [id number] 2.16.8 40.1.374494.3.579.2.727 1959 Unknown [id number] 2.16.8 40.1.048531.3.579.2.727 1959 Unknown [id number] 2.16.8 40.1.494341.3.579.2.727 1959 Unknown [id number] 2.16.8 40.1.194421.3.579.2.727 1959 Unknown [id number] 2.16.8 40.1.463242.3.579.2.727 Unknown [id number] 2.16.8 40.1.210094.3.579.2.531 Social History Date Type Detail Facility Start: 09-13-2022 End: 01-07-2025 Tobacco smoking status Heavy tobacco smoker (finding) [facility] Comment on above: 1/2 pack or more a d ay. Tobacco smoking status Never [facility][note 3] Comment on above: 1/2 pack or more a d ay. Start: 09-07-2023 End: 02-25-2025 Sex Assigned At Female [facility] Start: 1960 Sex Assigned At Female [facility] Start: 09-07-2023 End: 02-25-2025 Tobacco smoking status NHIS Smokes tobacco daily [facility] Work Phone: History of tobacco use Cigarette Smoker [facility] Work Phone: Start: 09-07-2023 End: 02-25-2025 Cigarettes smoked current (pack per day) - Reported 0.5 [facility] Work Phone: Start: 09-07-2023 End: 10-26-2023 Alcohol intake Ex-drinker (finding) [facility] Work Phone: Start: 1960 Sex Assigned At Not on file [facility] Work Phone: Start: 08-28-2023 End: 10-26-2023 Exposure to SARS-CoV-2 (event) Not sure [facility] Work Phone: Tobacco smoking stat NHIS Tobacco smoking consumption unknown [facility] Start: 02-25-2025 Tobacco use and exposure Smokeless tobacco non-user [facility] Sexual Orientation [facility] Start: 01-22-2019 Sex Female (finding) [facility] Medical Equipment Procedure Code Equipment Code Equipment Origin al Text Equipment Identifier Dates Stent, Synergy X d, Mr Us, 3.50 X 38mm - [id number] Start: 10-26-2023 Functional Status Date Assessment Result Facility 03-18-2025 Functional Status N/A [facility] 03-18-2025 Functional Status [facility] 01-07-2025 Functional Status N/A [facility] 11-24-2024 Functional Status N/A [facility] 11-24-2024 Functional Status [facility] 11-13-2024 Functional Status N/A [facility] 10-29-2024 Functional Status N/A [facility] 10-29-2024 Functional Status [facility] 10-10-2024 Functional Status N/A [facility] 10-03-2024 Functional Status N/A [facility] 08-13-2024 Functional Status No [facility] 08-13-2024 Functional Status [facility] 07-04-2024 Functional Status N/A [facility] 05-30-2024 Functional Status No [facility] 05-15-2024 Functional Status N/A [facility] 05-15-2024 Functional Status [facility] 01-06-2024 Functional Status N/A [facility] 12-01-2023 Functional Status No [facility] 09-01-2023 Functional Status No [facility] 09-01-2023 Functional Status [facility] 09-01-2023 Functional Status No [facility] 08-08-2023 Functional Status N/A [facility] 07-21-2023 Functional Status No [facility] 07-09-2023 Functional Status No [facility] 07-09-2023 Functional Status [facility] 11-25-2022 Functional Status N/A [facility] 10-14-2022 Functional Status N/A [facility] Clinical Notes 09-13-2022 to 03-21-2025 Note Date & Type Note Facility 03-21-2025 Note Discharge Summary Admission and Discharge Information Admitting Physician - Edmund Klein DO Consulting Physician - Hospitalist Post Disch, Results Reviewer Admitting Diagnoses: Discharge Order Date Discharge Patient - Ordered -- 03/20/25 12:37:00 EDT, Home with [facility] Discharge Diagnoses 1. Chest pain, 03/18/2025 2. CAD (coronary artery disease), 03/18/2025 3. Anxiety and depression, 03/18/2025 4. COPD (chronic obstructive pulmonary disease), 03/18/2025 5. HLD (hyperlipidemia), 03/18/2025 6. Hypertension, 03/18/2025 7. PVD (peripheral vascular disease), 03/18/2025 8. RLS (restless legs syndrome), 03/18/2025 9. Tobacco abuse, 03/18/2025 Chest pain, 03/18/2025 Shortness of breath, 03/18/2025 Procedure History PCI - Percutaneous coronary intervention (07/09/2023), Angioplasty, Gallbladder, Hysterectomy. Hospital Course Significant Findings Please refer to history and physical details of admission. Patient presented to the emergency room a 5 because of chest pain that started 3 to 4 days prior to presentation that got progressively worse. Nothing makes it better or worse she says sometimes rest will make it better. She has a mild cough. No other complaints. In the emergency room labs are unremarkable and her BNP was mildly elevated at 133. Troponin was 6.6 and ECG showed no ischemic changes. She was given Solu-Medrol in the ER for possible COPD exacerbation but this did not help her pain. She was then given nitroglycerin as well as morphine. She was placed on 1 L nasal cannula and admitted to the medical service. She is a full code. She does not wear oxygen at home. On the medical service patient was admitted for chest pain in the setting of coronary artery disease and anxiety and depression along with COPD. [facility] was consulted and saw the patient and said this was noncardiac chest pain and needed outpatient follow-up. 2D echo was ordered and performed on March 19 that showed essentially normal study with trace MR and diastolic dysfunction grade 2. Patient opted to go with [facility] hospice at discharge. She did get oxygen through them and she is discharged home today. NOTE - it took 35 minutes to evaluate and coordinate patient for discharge including talking with hospice Procedures and Treatment Provided 1. [facility] heart and vascular consultation 2. 2D echocardiogram 03/19/2025 Services Consulted Consult to Cardiology - Ordered -- 03/18/25 16:13:00 EDT, chest pain, hx of CAD and stents, Consult and Co-manage, Heart and Vascular Hospice Consult - Completed -- 03/19/25 13:14:00 EDT, infomrational meeting, Patient [facility] 03/19/25, Consult and Co-manage Physical Exam Vitals & Measurements T: 36.1 ???C(Axillary) TMIN: 36.1 ???C(Axillary) TMAX: 36.8 ???C(Oral) HR: 68(Monitored) RR: 18 BP: 153/80 SpO2: 98% General: No acute distress, patient appears older than stated age Skin: Warm, dry Head: No trauma, normocephalic Neck: Trachea midline, supple, negative for JVD Eye: Conjunctive are clear, clear sclera , EOMI ENMT: oral mucosa moist, no lesions or edema nose or external ears Cardiovascular: Regular rate and rhythm, S1-S2 present, negative for murmurs rubs or gallops Respiratory: Lungs clear to auscultation, bilateral symmetric movement, mildly diminished Chest wall: no deformity. Gastrointestinal: Abdomen soft, bowel sounds present, nontender to palpation Back: No tenderness Extremities: Range of motion intact, no edema Neurological: awake, alert, speech normal, cranial nerves II through XII intact, no sensory defects, alert and oriented x3 Psychiatric: cooperative, affect appropriate for age, pleasant Tests Performed Echo Transthoracic Complete XR Chest Single View Discharge Plan Patient Discharge Condition Stable Discharge Disposition Discharge To, Anticipated II - Home with hospice Discharged to - Home with family shelter with [facility] hospice Discharge Diet Discharge Diet(s): Regular (03/20/25 12:30:00) Discharge Medication List Prescriptions atorvastatin 80 mg Tab, 80 mg= 1 tab(s), Oral, Daily, 5 refills carvedilol 12.5 mg Tab, 12.5 mg= 1 tab(s), Oral, BID, 3 refills Handicap Placard, 5 years., See Instructions isosorbide mononitrate 30 mg ER Tab, 30 mg= 1 tab(s), Oral, BID, 3 refills losartan 100 mg Tab, 100 mg= 1 tab(s), Oral, Daily, 3 refills nitroglycerin 0.4 mg sublingual Tab, 0.4 mg= 1 tab(s), SubLingual, q5min, PRN, 6 refills prasugrel 10 mg Tab, 10 mg= 1 tab(s), Oral, Daily, 5 refills ranolazine 1000 mg oral tablet, extended release, 1000 mg= 1 tab(s), Oral, BID, 1 refills ropinirole 1 mg Tab, 1 mg= 1 tab(s), Oral, Daily, 1 refills Home Albuterol (Eqv-ProAir HFA) 90 mcg/inh inhalation aerosol, 2 puff(s), Inhalation, q4hr, PRN alprazolam 1 mg Tab, 1 mg= 1 tab(s), Oral, QID, PRN aspirin 81 mg Oral EC (more content not included)... [facility] Comment on above: Result Comment: Elec tronically Signed By: Kadeem Colon DO.br\Date and Time Signed: 03/21/25 16:03 EDT 03-20-2025 Hospital Discharg e instructions Patient Education 03/20/2025 14:16:44 Cough, Adult Cough, Adult Coughing is a reflex that clears your throat and airways (respiratory system). It helps heal and protect your lungs. It is normal to cough from time to time. A cough that happens with other symptoms or that lasts a long time may be a sign of a condition that needs treatment. A short-term (acute) cough may only last 2 3 weeks. A long-term (chronic) cough may last 8 or more weeks. Coughing is often caused by: Diseases, such as: ?An infection of the respiratory system. ?Asthma or other heart or lung diseases. ?Gastroesophageal reflux. This is when acid comes back up from the stomach. Breathing in things that irritate your lungs. Allergies. Postnasal drip. This is when mucus runs down the back of your throat. Smoking. Some medicines. Follow these instructions at home: Medicines Take afgx-mrn-totkqrl and prescription medicines only as told by your health care provider. Talk with your provider before you take cough medicine (cough suppressants). Eating and drinking Do not drink alcohol. Avoid caffeine. Drink enough fluid to keep your pee (urine) pale yellow. Lifestyle Avoid cigarette smoke. Do not use any products that contain nicotine or tobacco. These products include cigarettes, chewing tobacco, and vaping devices, such as e-cigarettes. If you need help quitting, ask your provider. Avoid things that make you cough. These may include perfumes, candles, cleaning products, or campfire smoke. General instructions Watch for any changes to your cough. Tell your provider about them. Always cover your mouth when you cough. If the air is dry in your bedroom or home, use a cool mist vaporizer or humidifier. If your cough is worse at night, try to sleep in a semi-upright position. Rest as needed. Contact a health care provider if: You have new symptoms, or your symptoms get worse. You cough up pus. You have a fever that does not go away or a cough that does not get better after 2 3 weeks. You cannot control your cough with medicine, and you are losing sleep. You have pain that gets worse or is not helped with medicine. You lose weight for no clear reason. You have night sweats. Get help right away if: You cough up blood. You have trouble breathing. Your heart is beating very fast. These symptoms may be an emergency. Get help right away. Call 911. Do not wait to see if the symptoms will go away. Do not drive yourself to the hospital. This information is not intended to replace advice given to you by your health care provider. Make sure you discuss any questions you have with your health care provider. Document Revised: 07/01/2023 Document Reviewed: 07/01/2023 [employer] Patient Education 2023 [employer]. Follow Up Care 03/18/2025 13:49:11 With:Fly Luis Address: [address] [place], [place] [address]y [place] [id number] [facility] (2) When: Unknown Comments:Call for followup appointment [facility] 03-19-2025 Note Consultation Note Chief Complaint chest pains Reason for Consultation Chest pain history of cardiac stents History of Present Illness 64-year-old female with past medical history of CAD status post stents, anxiety, depression, HLD, hypertension, PVD, RLS, tobacco abuse, presented to ED on 03/18 due to chest pain. Patient states chest pain started approximately 3 to 4 days ago and is progressively got worse. Patient states nothing makes it better nothing makes worse. Patient states sometimes resting makes it better. Patient had mild cough and thought it was because of that but states it got worse. Patient follows with [facility] cardiology. In ED lab work was relatively benign. BNP was slightly elevated at 133. Troponin 6.6. EKG shows no ischemic changes. Patient was given Solu-Medrol in ED for possible COPD exacerbation but did not help pain. Patient was given nitroglycerin as well as morphine. Discussed CODE STATUS with patient would like to be full code Patient was also on 1 L nasal cannula in ED which patient states she does not wear oxygen at baseline [1] On my discussion with the patient she had horrible chest pain only after repetitive bouts of coughs her pain is now acute her cardiac pain. EKG is not alarming. Enzymes are now normal alarming. No active heart failure follow-up with [facility] Arm[facility] Matthews in the outpatient setting will sign off call if further questions. Review of Systems 10 point review of system reviewed otherwise unremarkable Physical Exam Vitals & Measurements T: 36.3 ???C(Axillary) TMIN: 36.3 ???C(Axillary) TMAX: 36.7 ???C(Oral) HR: 72(Monitored) RR: 20 BP: 98/61 SpO2: 91% HT: 162 cm WT: 72.9 kg General: alert, no acute distress Skin: [...] normal judgement, normal psychiatric thoughts. Assessment/Plan 1. Chest pain (R07.9: Chest pain, unspecified) Noncardiac; outpatient follow-up with [facility] 2. CAD (coronary artery disease) (I25.10: Atherosclerotic heart disease of [place] coronary artery without angina pectoris) Continue guideline directed medical therapy 3. Anxiety and depression (F41.9: Anxiety disorder, unspecified) 4. COPD (chronic obstructive pulmonary disease) (J44.9: Chronic obstructive pulmonary disease, unspecified) Still continues to smoke and has a bronchitis currently 5. HLD (hyperlipidemia) (E78.5: Hyperlipidemia, unspecified) 6. Hypertension (I10: Essential (primary) hypertension) 7. PVD (peripheral vascular disease) (I73.9: Peripheral vascular disease, unspecified) 8. RLS (restless legs syndrome) (G25.81: Restless legs syndrome) 9. Tobacco abuse (Z72.0: Tobacco use) Problem List/Past Medical History Ongoing Anxiety and [...] oral suspension, 30 mL, Oral, q6hr, PRN albuterol 0.083% Inh Bettye 3 mL, 2.5 mg= 3 mL, Inhalation, q2hr, PRN alprazolam 1 mg Tab, 1 mg= 1 tab(s), Oral, QID, PRN aspirin 81 mg Oral EC Tab, 81 mg= 1 tab(s), Oral, Daily atorvastatin 40 mg Tab, 80 mg= 2 tab(s), Oral, Daily budesonide 0.5 mg/2 mL Inh Susp, 0.5 mg= 2 mL, NEB, BID carvedilol 12.5 mg Tab, 12.5 mg= 1 tab(s), Oral, BID DuoNeb 2.5 mg-0.5 mg/3 mL Soln-Inh, 3 mL, Inhalation, QID Effexor XR 150 mg Cap-ER, 300 mg= 2 cap(s), Oral, Once a day (at bedtime) Fleet Enema, 133 mL, Rectal, Once, PRN heparin 5000 units/mL Inj, 5000 unit(s)= 1 mL, SubCutaneous, BID hydrALAZINE 20 mg/mL Inj, 10 mg= 0.5 mL, IV Push, q6hr, PRN isosorbide mononitrate 30 mg ER Tab, 30 mg= 1 tab(s), Oral, BID Lamictal 2 (more content not included)... [facility] Comment on above: Result Comment: Elec tronically Signed By: Kodi POSEY, Catarino Orantes.jihan\Date and Time Signed: 03/19/25 22:55 EDT 03-19-2025 Note Consultation Note Chief Complaint chest pains Reason for Consultation Chest pain history of cardiac stents History of Present Illness 64-year-old female with past medical history of CAD status post stents, anxiety, depression, HLD, hypertension, PVD, RLS, tobacco abuse, presented to ED on 03/18 due to chest pain. Patient states chest pain started approximately 3 to 4 days ago and is progressively got worse. Patient states nothing makes it better nothing makes worse. Patient states sometimes resting makes it better. Patient had mild cough and thought it was because of that but states it got worse. Patient follows with [facility] cardiology. In ED lab work was relatively benign. BNP was slightly elevated at 133. Troponin 6.6. EKG shows no ischemic changes. Patient was given Solu-Medrol in ED for possible COPD exacerbation but did not help pain. Patient was given nitroglycerin as well as morphine. Discussed CODE STATUS with patient would like to be full code Patient was also on 1 L nasal cannula in ED which patient states she does not wear oxygen at baseline [1] On my discussion with the patient she had horrible chest pain only after repetitive bouts of coughs her pain is now acute her cardiac pain. EKG is not alarming. Enzymes are now normal alarming. No active heart failure follow-up with [facility] in the outpatient setting will sign off call if further questions. Review of Systems 10 point review of system reviewed otherwise unremarkable Physical Exam Vitals & Measurements T: 36.3 ???C(Axillary) TMIN: 36.3 ???C(Axillary) TMAX: 36.7 ???C(Oral) HR: 72(Monitored) RR: 20 BP: 98/61 SpO2: 91% HT: 162 cm WT: 72.9 kg General: alert, no acute distress Skin: [...] normal judgement, normal psychiatric thoughts. Assessment/Plan 1. Chest pain (R07.9: Chest pain, unspecified) Noncardiac; outpatient follow-up with [facility] 2. CAD (coronary artery disease) (I25.10: Atherosclerotic heart disease of [place] coronary artery without angina pectoris) Continue guideline directed medical therapy 3. Anxiety and depression (F41.9: Anxiety disorder, unspecified) 4. COPD (chronic obstructive pulmonary disease) (J44.9: Chronic obstructive pulmonary disease, unspecified) Still continues to smoke and has a bronchitis currently 5. HLD (hyperlipidemia) (E78.5: Hyperlipidemia, unspecified) 6. Hypertension (I10: Essential (primary) hypertension) 7. PVD (peripheral vascular disease) (I73.9: Peripheral vascular disease, unspecified) 8. RLS (restless legs syndrome) (G25.81: Restless legs syndrome) 9. Tobacco abuse (Z72.0: Tobacco use) Problem List/Past Medical History Ongoing Anxiety and [...] oral suspension, 30 mL, Oral, q6hr, PRN albuterol 0.083% Inh Bettye 3 mL, 2.5 mg= 3 mL, Inhalation, q2hr, PRN alprazolam 1 mg Tab, 1 mg= 1 tab(s), Oral, QID, PRN aspirin 81 mg Oral EC Tab, 81 mg= 1 tab(s), Oral, Daily atorvastatin 40 mg Tab, 80 mg= 2 tab(s), Oral, Daily budesonide 0.5 mg/2 mL Inh Susp, 0.5 mg= 2 mL, NEB, BID carvedilol 12.5 mg Tab, 12.5 mg= 1 tab(s), Oral, BID DuoNeb 2.5 mg-0.5 mg/3 mL Soln-Inh, 3 mL, Inhalation, QID Effexor XR 150 mg Cap-ER, 300 mg= 2 cap(s), Oral, Once a day (at bedtime) Fleet Enema, 133 mL, Rectal, Once, PRN heparin 5000 units/mL Inj, 5000 unit(s)= 1 mL, SubCutaneous, BID hydrALAZINE 20 mg/mL Inj, 10 mg= 0.5 mL, IV Push, q6hr, PRN isosorbide mononitrate 30 mg ER Tab, 30 mg= 1 tab(s), Oral, BID Lamictal 2 (more content not included)... [facility] Comment on above: Result Comment: Elec tronically Signed By: Kodi POSEY, Catarino Mcgill\.br\Date and Time Signed: 03/19/25 22:55 EDT 03-19-2025 Note Echocardiology Procedure Exam Date/Time Accession # Ordering Echo Transthoracic 03/19/2025 15:31 EDT [id number] Edmund Klein DO Complete CPT code 36980 [id number] Reason for Exam (Echo Transthoracic Complete) Chest pain Report [facility] [address] [place] [address] Adult Echocardiogram Report Name: ELLA JACOBO Study Date: 03/19/2025 02:18 PM BP: 94/58 mmHg Patient Location: [id number] [facility] Bed(s) [facility] HR: 64 : 1960 Gender: Female Height: 63 in Age: 64 yrs Ethnicity: [facility] Weight: 159 lb Reason For Study: Chest pain BSA: 1.8 m2 History: CAD, STEMI, Stent 07/09/23, Smoker Ordering Physician: Edmund Klein Performed By: Kerry Barahona RDCS Interpretation Summary This was essentially a normal study. There is Trace mitral regurgitation. Diastolic dysfunction, Grade II (pseudonormalization pattern). Procedure A complete two-dimensional transthoracic echocardiogram was performed (2D, M-mode, spectral and color flow Doppler). Study quality is good. Left Ventricle The left ventricle is normal in size. There is normal left ventricular wall thickness. Ejection Fraction = 60-65%. The left ventricular wall motion is normal. Diastolic dysfunction, Grade II (pseudonormalization pattern). Left Atrium The left atrium is mildly dilated. Right Atrium Right atrial size is normal. Echocardiology Report Right Ventricle The right ventricular systolic function is normal. The right ventricle is normal size. The right ventricular wall motion is normal. Aortic Valve The aortic valve is trileaflet. No aortic regurgitation. There is no aortic stenosis. Mitral Valve The mitral valve is normal in structure and function. There is Trace mitral regurgitation. No mitral valve stenosis. Tricuspid Valve Structurally normal tricuspid valve. No evidence of tricuspid regurgitation. There is trace tricuspid regurgitation. Pulmonic Valve Trace pulmonic valvular regurgitation. Arteries The aortic root is normal in size. Normal ascending aorta. Pulmonary artery diameter is normal. Venous The inferior vena cava is normal in size, and collapses normally with respiration. Effusion There is no pericardial effusion. MMode/2D Measurements & Calculations RVDd: 2.4 cm LVIDd: 5.0 cm FS: 52.5 % Ao root diam: 2.8 cm IVSd: 0.93 cm LVIDs: 2.4 cm EDV(Teich): 116.3 ml LVPWd: 1.1 cm ESV(Teich): 19.3 ml Ao root area: 6.2 cm2 EF(Teich): 83.4 % LA dimension: 3.8 cm asc Aorta Diam: 2.9 cm LVOT diam: 2.0 cm LVLd ap4: 7.2 cm EDV(MOD-sp2): 55.0 ml LVOT area: 3.1 cm2 EDV(MOD-sp4): 57.6 ml ESV(MOD-sp2): 14.4 ml LVLs ap4: 5.8 cm EF(MOD-sp2): 73.8 % ESV(MOD-sp4): 11.8 ml EF(MOD-sp4): 79.5 % SV(MOD-sp4): 45.8 ml TAPSE: 2.3 cm Ao Sinus of Valsalva: 2.9 cm Ao Sinotubular Junction: 2.3 cm IVC Diam: 1.3 cm RVIDd/LVIDd: 0.49 EF (MOD-bp): 76.9 % LA Vol Index: 26.6 ml/m2 Doppler Measurements & Calculations MV E max jeana: 77.2 cm/sec MV dec time: 0.25 sec Ao V2 max: 117.3 cm/sec LV V1 max P.3 mmHg MV A max jeana: 80.6 cm/sec Ao max P.5 mmHg LV V1 max: 90.7 cm/sec MV E/A: 0.96 Echocardiology Report Lat Peak E' Jeana: 5.0 cm/sec (V,D): 2.4 cm2 E/E' Lat: 15.4 Med Peak E' Jeana: 4.7 cm/sec E/E' Med: 16.5 TR max jeana: 274.0 cm/sec RAP systole: 3.0 mmHg AV VR: 0.78 TR max P.0 mmHg RVSP(TR): 33.0 mmHg FINAL REPORT Dictated: 03/19/2025 2:18 pm Catarino Mariee MD Signed (Electronic Signature): 03/19/2025 7:26 pm Signed by: Catarino Mariee MD Transcribed by: [facility] Technologist: [facility] 03-19-2025 Note Progress Note-Physic irvin Assessment/Plan Patient is still mildly hypoxic requiring 2 L nasal cannula. Will start low-dose steroids as well as antibiotics. This is for possible COPD exacerbation. 1. Chest pain (R07.9: Chest pain, unspecified) tele cardio consulted trop negative PRN morphine will await cardio recs Ordered: Sbsq Hospital Care/Day Moderate 35 Minutes [id number] 2. CAD (coronary artery disease) (I25.10: Atherosclerotic heart disease of [place] coronary artery without angina pectoris) ASA statin BB 3. Anxiety and depression (F41.9: Anxiety disorder, unspecified) Seroquel Alprazolam Effexor 4. COPD (chronic obstructive pulmonary disease) (J44.9: Chronic obstructive pulmonary disease, unspecified) duonebs no exacerbation 5. HLD (hyperlipidemia) (E78.5: Hyperlipidemia, unspecified) statin 6. Hypertension (I10: Essential (primary) hypertension) monitor coreg losartan 7. PVD (peripheral vascular disease) (I73.9: Peripheral vascular disease, unspecified) ASA statin 8. RLS (restless legs syndrome) (G25.81: Restless legs syndrome) Ropinirole 9. Tobacco abuse (Z72.0: Tobacco use) Educated patient on smoking cessation Nicotine patch if need Orders: acetaminophen, 650 mg = 2 tab(s), Tab, Oral, q6hr PRN Pain, Routine, Start date 03/18/25 17:30:00 EDT, 03/18/25 17:30:00 EDT Al hydroxide/Mg hydroxide/simethicone, 30 mL, Susp-Oral, Oral, q6hr PRN Indigestion, Routine, Start date 03/18/25 17:30:00 EDT azithromycin, 500 mg = 2 tab(s), Tab, Oral, Daily for 10 day(s), Stop date 03/30/25 8:59:00 EDT, Routine, Start date 03/20/25 9:00:00 EDT, 03/19/25 16:11:00 EDT heparin, 5,000 unit(s) = 1 mL, Injection, SubCutaneous, BID for 30 day(s), Stop date 04/17/25 20:59:00 EDT, Routine, Start date 03/18/25 21:00:00 EDT, 03/18/25 17:30:00 EDT hydrALAZINE, 10 mg = 0.5 mL, Injection, IV Push, q6hr PRN Other (see comment), Routine, Start date 03/18/25 17:30:00 EDT, 03/18/25 17:30:00 EDT magnesium hydroxide, 30 mL, Susp-Oral, Oral, q6hr PRN Constipation, Routine, Start date 03/18/25 17:30:00 EDT methylPREDNISolone, 20 mg = 0.5 mL, Injection, IV Push, q12hr, Routine, Start date 03/19/25 17:00:00 EDT, 03/19/25 16:10:00 EDT morphine, 2 mg = 1 mL, Injection, IV Push, q4hr PRN Pain for 5 day(s), Stop date 03/23/25 17:29:00 EDT, Routine, Start date 03/18/25 17:30:00 EDT, 03/18/25 17:30:00 EDT ondansetron, 4 mg = 2 mL, Injection, IV Push, q6hr PRN Nausea, Routine, Start date 03/18/25 17:30:00 EDT, 03/18/25 17:30:00 EDT senna, 17.2 mg = 2 tab(s), Tab, Oral, BID PRN Other (see comment), Routine, Start date 03/18/25 17:30:00 EDT, 03/18/25 17:30:00 EDT sodium biphosphate-sodium phosphate, 133 mL, Enema, Rectal, Once PRN Constipation, Routine, Start date 03/18/25 17:30:00 EDT Activity As Tolerated Basic Metabolic Panel Basic Metabolic Panel Below the Knee Intermittent Pneumatic Compression Device Cardiac Diet Cardiac Monitoring CBC w/ Auto Diff CBC w/ Auto Diff Consult to Cardiology Consult to Hospice Echo Transthoracic Complete Education Fall Risk eGFR Intake and Output Occupational Therapy Evaluate Patient, Develop a Plan of Care and Implement Plan Oxygen Protocol Physical Therapy Evaluate Patient, Develop a Plan of Care and Implement Plan Precautions Pulse Oximetry Referral to Resource Center Resuscitation Status - Full Vital Signs Weight Subjective Patient seen and examined. Patient resting in bed. Patient states she feels like her chest pain is more due to her cough. Afebrile. No other symptoms at this time. Patient states cough just started today. Objective Vitals & Measurements T: 36.6 ???C(Axillary) TMIN: 36.3 ???C(Axillary) TMAX: 36.6 ???C(Oral) HR: 78(Monitored) RR: 20 BP: 94/58 SpO2: 93% HT: 162 cm WT: 72.9 kg Intake & Output This visit (24 hour periods starting at 07:00 EDT) 03/19/25 * 03/18/25 03/17/25 Total Summary Intake mL 1 447 -- Output mL -- -- -- Fluid Balance 1 447 -- Intake (4) Oral Intake mL -- 440 -- methylPREDNISolone mL -- 2 -- morphine mL 1 3 -- ondansetron mL -- 2 -- Total 1 447 -- Output (0) Counts (1) Urine Count -- 1 -- * This column has not completed the indicated time period. Physical Exam General: No acute distress, patient appears older than stated age Skin: Warm, dry Head: No trauma, normocephalic Neck: Trachea midline, supple, negative for JVD Eye: Conjunctive are clear, clear sclera , EOMI ENMT: oral mucosa moist, no lesions or edema nose or external ears Cardiovascular: Regular rate and rhythm, S1-S2 present, negative for murmurs rubs or gallops Respiratory: Lungs clear to auscultation, bilateral symmetric movement, mildly diminished Chest wall: no deformity. Gastrointestinal: Abdomen soft, bowel sounds present, nontender to palpation Back: No tenderness Extremities: Range of motion intact, no edema Neurological: aw (more content not included)... [facility] Comment on above: Result Comment: Elec tronically Signed By: Edmund Klein DO\.br\Date and Time Signed: 03/19/25 16:11 EDT 03-19-2025 Evaluation + Plan note Extrac purvi from: Title:APSO Note Author:Edmund Klein DO Kevin e:03/19/25 Patient is still mildly hypo xic requiring 2 L nasal cannula. Will start low-dose steroids as well as antibiotics. This is for possible COPD exacerbation. 1. Chest pain (R07.9: Chest pain, unspecified) tele cardio consulted trop negative PRN morphine will await cardio recs [facility] 35 Minutes [id number] 2. CAD (coronary artery disease) (I25.10: Atherosclerotic heart disease of [place] coronary artery without angina pectoris) ASA statin BB 3. Anxiety and depression (F41.9: Anxiety disorder, unspecified) Seroquel Alprazolam Effexor 4. COPD (chronic obstructive pulmonary disease) (J44.9: Chronic obstructive pulmonary disease, unspecified) duonebs no exacerbation 5. HLD (hyperlipidemia) (E78.5: Hyperlipidemia, unspecified) statin 6. Hypertension (I10: Essential (primary) hypertension) monitor coreg losartan 7. PVD (peripheral vascular disease) (I73.9: Peripheral vascular disease, unspecified) ASA statin 8. RLS (restless legs syndrome) (G25.81: Restless legs syndrome) Ropinirole 9. Tobacco abuse (Z72.0: Tobacco use) Educated patient on smoking cessation Nicotine patch if need Orders: acetaminophen, 650 mg = 2 tab(s), Tab, Oral, q6hr PRN Pain, Routine, Start date 03/18/25 17:30:00 EDT, 03/18/25 17:30:00 EDT Al hydroxide/Mg hydroxide/simethicone, 30 mL, Susp-Oral, Oral, q6hr PRN Indigestion, Routine, Start date 03/18/25 17:30:00 EDT azithromycin, 500 mg = 2 tab(s), Tab, Oral, Daily for 10 day(s), Stop date 03/30/25 8:59:00 EDT, Routine, Start date 03/20/25 9:00:00 EDT, 03/19/25 16:11:00 EDT heparin, 5,000 unit(s) = 1 mL, Injection, SubCutaneous, BID for 30 day(s), Stop date 04/17/25 20:59:00 EDT, Routine, Start date 03/18/25 21:00:00 EDT, 03/18/25 17:30:00 EDT hydrALAZINE, 10 mg = 0.5 mL, Injection, IV Push, q6hr PRN Other (see comment), Routine, Start date 03/18/25 17:30:00 EDT, 03/18/25 17:30:00 EDT magnesium hydroxide, 30 mL, Susp-Oral, Oral, q6hr PRN Constipation, Routine, Start date 03/18/25 17:30:00 EDT methylPREDNISolone, 20 mg = 0.5 mL, Injection, IV Push, q12hr, Routine, Start date 03/19/25 17:00:00 EDT, 03/19/25 16:10:00 EDT morphine, 2 mg = 1 mL, Injection, IV Push, q4hr PRN Pain for 5 day(s), Stop date 03/23/25 17:29:00 EDT, Routine, Start date 03/18/25 17:30:00 EDT, 03/18/25 17:30:00 EDT ondansetron, 4 mg = 2 mL, Injection, IV Push, q6hr PRN Nausea, Routine, Start date 03/18/25 17:30:00 EDT, 03/18/25 17:30:00 EDT senna, 17.2 mg = 2 tab(s), Tab, Oral, BID PRN Other (see comment), Routine, Start date 03/18/25 17:30:00 EDT, 03/18/25 17:30:00 EDT sodium biphosphate-sodium phosphate, 133 mL, Enema, Rectal, Once PRN Constipation, Routine, Start date 03/18/25 17:30:00 EDT Activity As Tolerated Basic Metabolic Panel Basic Metabolic Panel Below the Knee Intermittent Pneumatic Compression Device Cardiac Diet Cardiac Monitoring CBC w/ Auto Diff CBC w/ Auto Diff Consult to Cardiology Consult to Hospice Echo Transthoracic Complete Education Fall Risk eGFR Intake and Output Occupational Therapy Evaluate Patient, Develop a Plan of Care and Implement Plan Oxygen Protocol Physical Therapy Evaluate Patient, Develop a Plan of Care and Implement Plan Precautions Pulse Oximetry Referral to Resource Center Resuscitation Status - Full Vital Signs Weight Extracted from: Title:Cardiology consultation Author:Catarino Mariee MD Date:03/19/25 1. Chest pain (R07.9: Chest pain, unspecified) Noncardiac; outpatient follow-up with [facility] 2. CAD (coronary artery disease) (I25.10: Atherosclerotic heart disease of [place] coronary artery without angina pectoris) Continue guideline directed medical therapy 3. Anxiety and depression (F41.9: Anxiety disorder, unspecified) 4. COPD (chronic obstructive pulmonary disease) (J44.9: Chronic obstructive pulmonary disease, unspecified) Still continues to smoke and has a bronchitis currently 5. HLD (hyperlipidemia) (E78.5: Hyperlipidemia, unspecified) 6. Hypertension (I10: Essential (primary) hypertension) 7. PVD (peripheral vascular disease) (I73.9: Peripheral vascular disease, unspecified) 8. RLS (restless legs syndrome) (G25.81: Restless legs syndrome) 9. Tobacco abuse (Z72.0: Tobacco use) Extracted from: Title:Admission H & P Author:Edmund Klein DO Date:03/18/25 Patient will be admitted und er observation status due to estimated length of stay less than 2 midnights. All images, labs, EKGs reviewed DVT PPx PAS bilaterally, heparin Diet cardiac CODE STATUS/full code 1. Chest pain (R07.9: Chest pain, unspecified) Improved since receiving nitro and morphine in ED Continue telemetry Troponin Consult cardiology May need echo As needed morphine Ordered: Initial Hospital Care/Day Moderate 55 Minutes [id number] 2. CAD (coronary artery disease) (I25.10: Atherosclerotic heart disease of [place] coronary artery without angina pectoris) Aspirin Statin Beta-tamika 3. Anxiety and depression (F41.9: Anxiety disorder, unspecified) Seroquel Alprazolam Effexor 4. COPD (chronic obstructive pulmonary disease) (J44.9: Chronic obstructive pulmonary disease, unspecified) DuoNebs as needed No acute exacerbation 5. HLD (hyperlipidemia) (E78.5: Hyperlipidemia, unspecified) Statin 6. Hypertension (I10: Essential (primary) hypertension) Monitor Coreg Losartan 7. PVD (peripheral vascular disease) (I73.9: Peripheral vascular disease, unspecified) Aspirin Statin 8. RLS (restless legs syndrome) (G25.81: Restless legs syndrome) Ropinirole 9. Tobacco abuse (Z72.0: Tobacco use) Educated patient on smoking cessation Nicotine patch if need Depression, unspecified (F32.A: Depression, unspecified) Orders: acetaminophen, 650 mg = 2 tab(s), Tab, Oral, q6hr PRN Pain, Routine, Start date 03/18/25 17:30:00 EDT, 03/18/25 17:30:00 EDT Al hydroxide/Mg hydroxide/simethicone, 30 mL, Susp-Oral, Oral, q6hr PRN Indigestion, Routine, Start date 03/18/25 17:30:00 EDT heparin, 5,000 unit(s) = 1 mL, Injection, SubCutaneous, BID for 30 day(s), Stop date 04/17/25 20:59:00 EDT, Routine, Start date 03/18/25 21:00:00 EDT, 03/18/25 17:30:00 EDT hydrALAZINE, 10 mg = 0.5 mL, Injection, IV Push, q6hr PRN Other (see comment), Routine, Start date 03/18/25 17:30:00 EDT, 03/18/25 17:30:00 EDT magnesium hydroxide, 30 mL, Susp-Oral, Oral, q6hr PRN Constipation, Routine, Start date 03/18/25 17:30:00 EDT morphine, 2 mg = 1 mL, Injection, IV Push, q4hr PRN Pain for 5 day(s), Stop date 03/23/25 17:29:00 EDT, Routine, Start date 03/18/25 17:30:00 EDT, 03/18/25 17:30:00 EDT ondansetron, 4 mg = 2 mL, Injection, IV Push, q6hr PRN Nausea, Routine, Start date 03/18/25 17:30:00 EDT, 03/18/25 17:30:00 EDT senna, 17.2 mg = 2 tab(s), Tab, Oral, BID PRN Other (see comment), Routine, Start date 03/18/25 17:30:00 EDT, 03/18/25 17:30:00 EDT sodium biphosphate-sodium phosphate, 133 mL, Enema, Rectal, Once PRN Constipation, Routine, Start date 03/18/25 17:30:00 EDT Activity As Tolerated Basic Metabolic Panel Below the Knee Intermittent Pneumatic Compression Device Cardiac Diet Cardiac Monitoring CBC w/ Auto Diff Consult to Cardiology Incentive Spirometry Intake and Output Occupational Therapy Evaluate Patient, Develop a Plan of Care and Implement Plan Physical Therapy Evaluate Patient, Develop a Plan of Care and Implement Plan Pulse Oximetry Resuscitation Status - Full Vital Signs Weight Extracted from: Title:ED Note Author:Marquis ZHANG, Jerrod Carlisle te:03/18/25 CAD (coronary artery disease ) (I25.10: Atherosclerotic heart disease of [place] coronary artery without angina pectoris) Chest pain (R07.9: Chest pain, unspecified) Orders: albuterol-ipratropium, 3 mL, Soln-Inh, Inhalation, Once, Stop date 03/18/25 15:05:00 EDT, STAT, Start date 03/18/25 15:05:00 EDT methylPREDNISolone, 125 mg = 2 mL, Injection, IV Push, Once, Stop date 03/18/25 15:06:00 EDT, STAT, Start date 03/18/25 15:06:00 EDT, 03/18/25 15:06:00 EDT morphine, 4 mg = 1 mL, Injection, IV Push, Once, Stop date 03/18/25 15:59:00 EDT, STAT, Start date 03/18/25 15:59:00 EDT, 03/18/25 15:59:00 EDT nitroglycerin, 0.4 mg = 1 tab(s), Tab, SubLingual, q5min PRN Chest pain for 3 dose(s), Stop date Limited # of times, STAT, Start date 03/18/25 15:38:00 EDT, 03/18/25 15:38:00 EDT ondansetron, 4 mg = 2 mL, Injection, IV Push, Once, Stop date 03/18/25 15:59:00 EDT, STAT, Start date 03/18/25 15:59:00 EDT, 03/18/25 15:59:00 EDT ECG 12 Lead Adult Troponin 3 Hr. Troponin 6 Hr. Future Appointments Appointment Date:03/25/2025 11:00:00 AM Scheduled Provider:Fly Luis MD Location:[facility] Appointment Type: Open Appointment Date:06/18/2025 02:30:00 PM Scheduled Provider: Location:[facility] Appointment Type: Medicare Wellness Subsequent Future Scheduled Tests Radiology* US PVR Upper EXT Complete Bilat 01/07/25 * US Upper Extremity Venous Duplex Bilateral 01/08/25 [facility] [id number] NoteInterdisciplinary Note - PT PT Evaluation done this date. Pt. with on AM-PAC this date. She is safe and steady with functional activities with use of FWW. She is at her baseline with no further PT needs.[facility]05-05-2025 NoteHistory and Physical Chief Complaint Per pt chest pain started at 0500 took one nitro with pain decreasing to a 3/10 from 8/10. hx of x2 cardiac stents placed years ago unknown exact date. Pt is on a blood thinner, avid smoked does not use O2, SOB on ems arrival per pt History of Present Illness 64-year-old female with past medical history of CAD status post stents, anxiety, depression, HLD, hypertension, PVD, RLS, tobacco abuse, presented to ED on 03/18 due to chest pain. Patient states chestpain started approximately 3 to 4 days ago and is progressively got worse. Patient states nothing makes it better nothing makes worse. Patient states sometimes resting makes it better. Patient had mild cough and thought it was because of that but states it got worse. Patient follows with [facility] cardiology. In ED lab work was relatively benign. BNP was slightly elevated at 133. Troponin 6.6. EKG shows no ischemic changes. Patient was given Solu-Medrol in ED for possible COPD exacerbation but did not help pain. Patient was given nitroglycerin as well as morphine. Discussed CODE STATUS with patient would like to be full code Patient was also on 1 L nasal cannula in ED which patient states she does not wear oxygen at baseline Review of Systems Scoring Taylor Fall Risk Score: 0 (03/18/25) Physical Exam Vitals & Measurements T: 36.7 ???C(Oral) HR: 73(Monitored) RR: 19 BP: 144/73 SpO2: 93% HT: 162 cm WT: 74 kg General: No acute distress, patient appears older than stated age Skin: Warm, dry Head: No trauma, normocephalic Neck: Trachea midline, supple, negative for JVD Eye: Conjunctive are clear, clear sclera , EOMI ENMT: oral mucosa moist, no lesions or edema nose or external ears Cardiovascular: Regular rate and rhythm, S1-S2 present, negative for murmurs rubs or gallops Respiratory: Lungs clear to auscultation, bilateral symmetric movement, mildly diminished Chest wall: no deformity. Gastrointestinal: Abdomen soft, bowel sounds present, nontender to palpation Back: No tenderness Extremities: Range of motion intact, no edema Neurological: awake, alert, speech normal, cranial nerves II through XII intact, no sensory defects, alert and oriented x3 Psychiatric: cooperative, affect appropriate for age, pleasant Lab Results WBC: 3.2 E9/L Low (03/18/25 14:21:00) RBC: 4.4 E12/L (03/18/25 14:21:00) HGB: 14.5 gm/dL (03/18/25 14:21:00) Hct: 41.7 % (03/18/25 14:21:00) MCV: 95.7 fL (03/18/25 14:21:00) MCH: 33.3 pg (03/18/25 14:21:00) MCHC: 34.7 gm/dL (03/18/25 14:21:00) RDW: 13.5 % (03/18/25 14:21:00) Platelet: 185 E9/L (03/18/25 14:21:00) MPV: 8.2 fL (03/18/25 14:21:00) Neutro Auto: 46.2 % (03/18/25 14:21:00) Lymph Auto: 41.1 % (03/18/25 14:21:00) [place] Auto: 8.7 % (03/18/25 14:21:00) Eos Auto: 3.1 % (03/18/25 14::) Basophil Auto: 0.9 % (03/18/25 14:21:00) Neutro Absolute: 1.5 E9/L Low (03/18/25 14:21:00) Lymph Absolute: 1.3 E9/L (03/18/25 14::) [place] Absolute: 0.3 E9/L (03/18/25 14:21:00) Eos Absolute: 0.1 E9/L (03/18/25 14:21:00) Basophil Absolute: 0 E9/L (03/18/25 14::) PT: 10.6 second(s) (03/18/25 14:21:00) INR: 0.95 (03/18/25 14::00) PTT: 27.5 second(s) (03/18/25 14::00) Glucose Lvl: 87 mg/dL (03/18/25 14:21:00) BUN: 7 mg/dL (03/18/25 14:21:00) Creatinine: 0.6 mg/dL (03/18/25 14:21:00) eGFR: 99 mL/min/1.73 m2 (03/18/25 14:21:00) BUN/Creat Ratio: 12 (03/18/25 14:21:00) Sodium Lvl: 138 mmol/L (03/18/25 14:21:00) Potassium Lvl: 3.9 mmol/L (03/18/25 14:21:00) Chloride: 102 mmol/L (03/18/25 14:21:00) CO2: 30 mmol/L (03/18/25 14:21:00) AGAP: 10 mEq/L (03/18/25 14:21:00) Calcium Lvl: 9.3 mg/dL (03/18/25 14:21:00) Troponin HS: 6.4 pg/mL Low (03/18/25 15:30:00) BNP: 133 pg/mL High (03/18/25 14:21:00) Assessment/Plan Patient will be admitted under observation status due to estimated length of stay less than 2 midnights. All images, labs, EKGs reviewed DVT PPx???PAS bilaterally, heparin Diet???cardiac CODE STATUS/full code 1. Chest pain (R07.9: Chest pain, unspecified) Improved since receiving nitro and morphine in ED Continue telemetry Troponin Consult cardiology May need echo As needed morphine Ordered: Initial Hospital Care/Day Moderate 55 Minutes [id number] 2. CAD (coronary artery disease) (I25.10: Atherosclerotic heart disease of [place] coronary artery without angina pectoris) Aspirin Statin Beta-tamika 3. Anxiety and depression (F41.9: Anxiety disorder, unspecified) Seroquel Alprazolam Effexor 4. COPD (chronic obstructive pulmonary disease) (J44.9: Chronic obstructive pulmonary disease, unspecified) DuoNebs as needed No acute exacerbation 5. HLD (hyperlipidemia) (E78.5: Hyperlipidemia, unspecified) Statin 6. Hypertension (I10: Essential (primary) hypertension) Monitor Coreg Losartan 7. PVD (peripheral vascular disease) (I73.9: Peripheral vascular disease, unspecified) Aspirin Statin 8. RLS (restless legs syn (more content not included)...[facility]Result Comment: Electronically Signed By: Edmund Klein DO\.br\Date and Time Signed: 03/18/25 17:32 [id number] History of Present illness Narrative* [facility] Mcgovern - 02/25/2025 1:40 PM EDT Images from the original note were not included. Subjective Ella Jacobo is a 64 y.o. year old female Chief Complaint Patient presents with Hospital Follow-up No past medical history on file. No past surgical history on file. No family history on file. Social History Tobacco Use Smoking status: Not on file Smokeless tobacco: Not on file Substance Use Topics Alcohol use: Not on file Medication Documentation Review Audit Prior to Admission medications have not yet been reviewed HPI HPI Ms. Jacobo is 64 year old female who was seen at [facility] for BLE weakness. She states that the weakness started about 6 months ago. The patient states that her leg weakness has progressively worsened. She states that the left leg is worse than the right leg. She has history of a broken back with surgical intervention around 2007. She had a double fusion with a shanna placed. She states that her legs will give out. She states that she has had multiple falls. She states that she has paresthesia in thelegs and feet that is intermittent. She states that when she falls, she feels very weak and will need help getting back up. She denies dizziness or lightheadedness. She states that she is supposed touse a walker but cannot in the house with their layout. She is also not using outside of the house.She has not tried a cane either. She did have a previous EMG of the BUE in 2022 at [facility]. She has done multiple rounds of PT and has seen pain management in the past and had injections. She saw Dr. Sepulveda at [facility] and was advised to not have surgery as her bone density would not support this. ROS Review of Systems Constitutional: Negative for chills and hot flashes. HENT: Negative for voice change. Eyes: Negative for photophobia and visual disturbance. Respiratory: Negative for apnea and cough. Cardiovascular: Negative for chest pain and palpitations. Gastrointestinal: Negative for nausea and vomiting. Musculoskeletal: Positive for back pain and gait problem. Negative for neck pain. Neurological: Positive for weakness and numbness. Negative for dizziness and light-headedness. Psychiatric/Behavioral: Negative for confusion and sleep disturbance. Objective Visit Vitals BP 144/90 (BP Location: Left arm, Patient Position: Sitting) Ht 5' 2 Wt 160 lb BMI 29.26 kg/m BSA 1.78 m Neurological Exam Mental Status Awake, alert and oriented to person, place and time. Oriented to person, place, time and situation.Recent and remote memory are intact. Speech is normal. Language is fluent with no aphasia. Cranial Nerves CN II: Visual rivera full to confrontation. CN III, IV, : Extraocular movements intact bilaterally. Normal lids and orbits bilaterally. Pupils equal round and reactive to light bilaterally. CN VII: Right: There is no facial weakness. Left: There is no facial weakness. CN VIII: Hearing is normal. CN IX, X: Palate elevates symmetrically CN XI: Shoulder shrug strength is normal. CN XII: Tongue midline without atrophy or fasciculations. Sensory Light touch is normal in upper and lower extremities. Coordination Right: Zdpjnn-hc-vbyn normal.Left: Vqklys-jl-rqtm normal. Gait Antalgic. Motor Examination RUE Strength deltoid, biceps, triceps, wrist extensors, wrist extensors, wrist flexor, advertising display rotator strength 5/5. LUE Strength deltoid, biceps, triceps, wrist extensors, wrist extensors, wrist flexor, advertising display rotator strength 5/5. RLE Strength illopsoas, quadriceps, tibialis anterior, and gastrocnemius strength 5/5. LLE Strength illopsoas, quadriceps, tibialis anterior, and gastrocnemius strength 5/5. Tone Normal tone x4 extremities. Reflexes: RUE biceps reflex 2, LUE biceps reflex 2, RLE knee reflex 2, LLE knee reflex 2, Assessment and Plan Diagnoses and all orders for this visit: Polyneuropathy Degeneration of intervertebral disc of lumbar region with discogenic back pain and lower extremity pain Degenerative disc disease, cervical Recurrent falls Weakness The patient is a 64-year-old female who presented to [facility] 11/24/2024 after she has been suffering frequent falls which has been an ongoing issue for the past several years withthis fall being notable for dropping a glass that she then fell on and sustained some lacerations to her face and hands. Patient notes she has no preceding symptoms and then goes down . EMG of the bilateral lower extremities performed in 11/2022 revealed polyneuropathy with bilateral S1 radiculopathies she continues with chronic low back pain which is radicular in nature depending on her position. She states that she has been on pain medications in the past but no longer is and her symptoms have increased. She states that she has trialed injections with pain management in the past as well. Her symptoms may also be due to her neuroleptic medications such as olanzapine and quetiapine. She notes that she has she has been on these for many years however. CT of the cervical spine 10/08 revealed no fracture or evidence of cervical spine injury. There were vdpd-ux-ffkscvbp degenerative changes present with moderate left neural foraminal narrowing at C3 and 4 and C5 and 6. There was no high-grade central spinal canal stenosis appreciated. CT of the brain 11/24/2024 revealed no acute intracranial process.EEG was obtained 11/26/2024 which was normal. MRI lumbar spine 11/26/2024 revealedmultilevel degenerative changes with areas of endplate degeneration especially at L1-L2. There werechanges noted from a posterior decompression and prior fusion from L4 through S1 which was similar to prior evaluation in September of 2024. L1-L2 revealed disc height loss with endplate osteophytes and broad-based disc bulge with a possible small superimposed protrusion to the left foraminal region. There is moderate spinal canal narrowing and moderate to severe left and moderate right neural foraminal narrowing. L2-L3 noted an annular fissure to the disc as well as moderate canal narrowing moderate bilateral neural foraminal narrowing L3-L4 also had moderate to severe canal narrowing. Patient notes that she did see Neurosurgery as an outpatient was told that due to her bone density there are no viable surgical options that would remain stable to her lumbar spine. She notes that she has se en pain management in the past and we would like to avoid steroid injections due to possible continued bony destruction over long-term cumulative steroid use. Due to the chronic nature of her symptoms that are currently non operable, consider palliative care for long-term chronic symptom management. Patient is agreeable to this consideration. Her daughter is also agreeable. Plan: Extensive hospital records reviewed including CT brain, CT cervical spine, MRI lumbar spine, EEG, emergency department documentation, neurology consultation report, and discharge summary. She has seen Neurosurgery after her discharge Dr. Sepulveda. She is not a surgical candidate due to herbone density. I will refer the patient to palliative care for chronic symptom management she has seen multiple pain management in the past and we would like to avoid further steroid dosing due to her bone density. She has done PT multiple times in the past. She has tried multiple neuropathic medications as well as muscle relaxers. I counseled the patient on fall precautions. I discussed the high risk of trauma and debility associated with falls. Patient verbalized understanding. Follow up after palliative care consult. documented in this encounterReynolds County General [facility] [id number] NoteDischarge Summary Admission and Discharge Information Admitting [...] of anxiety and depression, CAD s/p STEMI, COPD,RLS, polyneuropathy, and chronic back pain; who was [...] with mild to moderate bilateral foraminal narrowing. Althoughlikely the cause of her falls, and absence of saddle anesthesia was not considered to need emergentintervention by neurosurgery. The patient's neuroleptic medications including [...] days, with neurology in 1 to 2 weeks,and with Dr. Sepulveda, neurosurgeon, in 2 to [...] 1 tab(s), Oral, BID, 2 refills Handicap Lotus, 5 years., See Instructions [...] Home acetaminophen 325 m (more content not included)...[facility] Comment on above:Result Comment: Electronically Signed By: Sanju RANKIN, Layne Abbott\.br\Date and Time Signed: 12/05/2516:26 EST\.br\Electronically Co-Signed By: Ephraim ROSS MD\.br\Date and Time Co-Signed: 12/10/2506:10 [id number] Hospital Discharge instructions Patient Education 11/26/2024 14:09:46 Fall Prevention in the Home, Adult, Eljc-gx-Chce Fall Prevention in the Home, Adult Falls [...] Keep items that you use often in jcyp-sk-vhpcy places. Lower the shelves around your home [...] of the way. Do not use floor bahamian or wax that makes floors slippery. What [...] information Centers for Disease Control and Prevention, STE[place]: cdc.gov National [place] on Aging: suyapa.nih.gov National [place] on Aging: suyapa.nih.gov Contact a doctor if: [...] provider. Document Revised: 07/04/2023 Document Reviewed: 07/04/2023 [employer] Patient Education 2023 ODEC. Follow Up Care 11/24/2024 17:09:06 With:Orlando Sepulveda Address: [address] [address], [address] [place] [address]- [phone] [facility] (1[employer] [address] [place] [phone] When:12/19/2024 11:00:00 Comments:Multilevel foraminal and canal narrowing. With:Fly Luis Address: [address] [place] [phone] Business (2) When:12/04/2024 07:45:00 Comments:Please bring proof of insurance to this hosptial follow up appointment. With:Doris POSEY, SARAH Chin Address: [address] [place] [phone]- Business (1) When:01/28/2025 12:00:00 Comments:Please bring in proof of insurance to this hospital follow up appointment. [facility] [phone] NoteInterdisciplinary Note - OT Pt is seen for OT evaluation this date. AMPAC score: 24. Pt is able to complete functional mobility in room and all simple ADL tasks at MOD I level and demonstrates good safety and no LOB throughout. No skilled OT needs at this time.[facility]01-13-2025 NoteGetWell Learning Participants Patient GetWell Understands Education Yes GetWell Education Video Speak Up: To Prevent FallsKettering Health [facility] Township01-13-2025 NoteGetWell Learning Participants Patient GetWell Understands Education Yes GetWell Education Video Speak Up: To Prevent FallsKettering Health [facility]01-13-2025 NoteGetWell Learning Participants Patient GetWell Understands Education Yes GetWell Education Video Your Hospital Stay: Going HomeK[facility]01-13-2025 NoteGetWell Learning Participants Patient GetWell Understands Education Yes GetWell Education Video Getting Help When You Leave the HospitalK[facility]01-13-2025 NoteGetWell Understands Education Yes GetWell Education Video High Blood Pressure: Make the Most of Home Monitoring [facility] Learning Participants [facility]01-13-2025 NoteGetWell Understands Education Yes GetWell Education Video Avoiding Infections in the Hospital GetWell Learning Participants [facility]01-13-2025 Evaluation + Plan noteExtracted from: Title:APSO Note- Neurology Author:Madeleine Mckinley RN [...] artery disease) (I25.10: Atherosclerotic heart disease of [place] coronary artery without angina pectoris) 10. PVD (peripheral vascular disease) (I73.9: Peripheral vascular disease, unspecified) 11. 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: Other usp (current) drug therapy) Extracted from: Title:APSO Note Author:Sanju RANKIN, Layne Carlisle te:11/25/24 1. Leg weakness, bilateral ( R29.898: [...] artery disease) (I25.10: Atherosclerotic heart disease of [place] coronary artery without angina pectoris) - No active anginal complaints. - Continue home statin, aspirin, Effient, Coreg 10. PVD (peripheral vascular disease) (I73.9: Peripheral vascular disease, unspecified) - Continue Effient 11. 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 PVD (peripheral vascular disease) (I73.9: Peripheral vascular disease, unspecified) 11. 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: Other usp (current) drug therapy) Back pain (M54.9: Dorsalgia, unspecified) Depression, unspecified (F32.A: Depression, unspecified) Dizziness (R42: Dizziness and giddiness) Dyspnea (R06.00: Dyspnea, unspecified) Head injury (S09.90XA: Unspecified injury of head, initial encounter) Extracted from: Title:Admission H & P Author:HOMAAlec DILL DO Chinedu Date:11/24/24 1. Leg weakness, bilateral ( R29.898: [...] artery disease) (I25.10: Atherosclerotic heart disease of [place] coronary artery without angina pectoris) No active anginal complaints. Will continue patient on statin, aspirin, Effient, Coreg 10. PVD (peripheral vascular disease) (I73.9: Peripheral vascular disease, unspecified) Continue Effient 11. 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: Other usp (current) drug therapy) SCD, enoxaparin Orders: acetaminophen, [...] BID, # 60 tab(s), Refills(s) 5, Pharmacy: [facility]/pharmacy #[id number], 154, cm, 05/30/24 10:31:00 EDT, [...] be observation status. Extracted from: Title:ED Note Author:Arik LUBIN Lawrence Date:11/14 12/08 Back pain (M54.9: Dorsalgia, unspecified) [...] Date:12/03/2024 11:00:00 AM Scheduled Provider:Lexis Moe MD [facility] Type:Vascular New Patient (FT) Appointment Date:12/04/2024 07:45:00 AM Scheduled Provider:Fly Luis MD Location:[facility] Appointment Type: Hospital Follow Up w/TCM Appointment Date:12/14/2024 01:00:00 PM Scheduled Provider:Amilcar Matthews PA-C [facility] Type:Cardiology Follow Up (FT) Appointment Date:01/07/2025 01:00:00 PM Scheduled Provider:Fly Luis MD Location:[facility] Appointment Type: Open Appointment Date:06/18/2025 02:30:00 PM Scheduled Provider: Location:[facility] Appointment Type: Medicare Wellness Subsequent Diagnostic Tests Pending * RPR with Conf Rfx 11/25/24 Future Scheduled Tests Laboratory* B-Type Natriuretic Peptide 12/01/23 * Basic Metabolic Panel 12/01/23 [facility] 01-13-2025 NoteProgress Note-Physician Assessment/Plan ASSESSMENT: Longstanding [...] artery disease) (I25.10: Atherosclerotic heart disease of [place] coronary artery without angina pectoris) 10. PVD (peripheral vascular disease) (I73.9: Peripheral vascular disease, unspecified) 11. 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) Subjective She feels the [...] 05:58:00) Lymph Auto: 44.2 % (11/26/24 05:58:00) [place] Auto: 9.3 % (11/26/24 05:58:00) Eos Auto: 3.1 % (11/26/24 05:58:00) Basophil Auto: 1 % (11/26/24 05:58:00) Neutro Absolute: 1.7 E9/L Low (11/26/24 05:58:00) Lymph Absolute: 1.7 E9/L (11/26/24 05:58:00) [place] Absolute: 0.4 E9/L (11/26/24 05:58:00) Eos Absolute: 0.1 E9/L (11/26/24 05:58:00) Basophil Absolute: 0 E9/L (11/26/24 05:58:00) Glucose Lvl: 90 mg/dL (11/26/24 05:58:00) BUN: 15 mg/dL (11/26/24 05:58:00) Creatinine: 0.7 mg/dL (11/26/24 05:58 (more content not included)...[facility]:Result Comment: Electronically Signed By: Elías LY, Amelia Abbott\.br\Date and Time Signed: 11/26/24 06:45 EST\.br\Electronically Co-Signed By: Jasper Benjamin DO\.br\Date and Time Co- Signed: 11/26/24 12:18 [id number] NoteInterdisciplinary Note - PT PT Evaluation done this date. Pt. with on AM-PAC. She is safe and steady with functional activities this date, supervision only with gait. Recommend using FWW at all times for safety and possible outpatient PT if cleared after lumbar MRI. No further acute PT needs.[facility]01-12-2025 Note Progress Note-Physician Assessment/Plan 1. Leg weakness, [...] artery disease) (I25.10: Atherosclerotic heart disease of [place] coronary artery without angina pectoris) - No active anginal complaints. - Continue home statin, aspirin, Effient, Coreg 10. PVD (peripheral vascular disease) (I73.9: Peripheral vascular disease, unspecified) - Continue Effient 11. 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) SCD, enoxaparin Orders: potassium [...] 05:58:00) Lymph Auto: 47.4 % (11/25/24 05:58:00) [place] Auto: 11.9 % (11/25/24 05:58:00) Eos Auto: 3.3 % (11/25/24 05:58:00) Basophil Auto: 0.8 % (11/25/24 05:58:00) Neutro Absolute: 1.3 E9/L Low (11/25/24 05:58:00) Lymph Absolute: 1.7 E9/L (11/25/24 05:58:00) [place] Absolute: 0.4 E9/L ( (more content not included)...[facility]Comment on above:Result Comment: Electronically Signed By: Layne Terrazas\.br\Date and Time Signed: 11/25/2515:53 EST\.br\Electronically Co- Signed By: Kadeem Colon DO\.br\Date and Time Co-Signed: 11/25/24 16:54 [id number] NoteConsultation Note Chief Complaint Fall Reason for [...] artery disease) (I25.10: Atherosclerotic heart disease of [place] coronary artery without angina pectoris) 10. PVD (peripheral vascular disease) (I73.9: Peripheral vascular disease, unspecified) 11. 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 PVD (peripheral vascular disease) (I73.9: Peripheral vascular disease, unspecified) 11. 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: Other usp (current) drug therapy) Back pain (M54.9: Dorsalgia, [...] aid Historical Acute ST (more content not included)...[facility] on [facility]:Result Comment: Electronically Signed By: Amelia Mckinley RN\.jihan\Date and Time Signed: 11/25/24 07:16 EST\.br\Electronically Co-Signed By: Jasper Benjamin DO.jihan\Date and Time Co-Signed: 11/25/24 10:06 [id number] NoteHistory and Physical Chief Complaint Fall History [...] psychiatric thoughts. Lab Results WBC: 4.1 E9/L (11/24/24:34:00) RBC: 4.4 E12/L (11/24/24:34:) HGB: 14.8 gm/dL (11/24/24:34:) Hct: 42.4 % (11/24/24:34:00) MCV: 97.4 fL (11/24/24:34:00) MCH: 33.8 pg (11/24/24:34:00) MCHC: 34.8 gm/dL (11/24/24:34:00) RDW: 13.2 % (11/24/24:34:00) Platelet: 185 E9/L (11/24/24:34:00) MPV: 7.7 fL (11/24/24:34:00) Neutro Auto: 46.5 % (11/24/24:34:00) Lymph Auto: 40.2 % (11/24/24:34:00) [place] Auto: 9.9 % (11/24/24:34:00) Eos Auto: 2.6 % (11/24/24:34:00) Basophil Auto: 0.8 % (11/24/24:34:00) Neutro Absolute: 1.9 E9/L Low (11/24/24:34:00) Lymph Absolute: 1.7 E9/L (11/24/24:34:00) [place] Absolute: 0.4 E9/L (11/24/24:34:00) Eos Absolute: 0.1 E9/L (11/24/24:34:00) Basophil Absolute: 0 E9/L (11/24/24:34:00) PT: 11.7 second(s) (11/24/24:34:00) INR: 1.04 (11/24/24:34:00) PTT: 32.3 second(s) (11/24/24:34:00) Glucose Lvl: 89 mg/dL (11/24/24:34:00) BUN: 11 mg/dL (11/24/24:34:00) Creatinine: 0.7 mg/dL (11/24/24:34:00) eGFR: 96 mL/min/1.73 m2 (11/24/24:34:) BUN/Creat Ratio: 16 (11/24/24:34:) Sodium Lvl: 139 mmol/L (11/24/24:34:) Potassium Lvl: 3.6 mmol/L (11/24/24:34:) Chloride: 105 mmol/L (11/24/24:34:) CO2: 30 mmol/L (11/24/24:34:00) AGAP: 8 mEq/L (11/24/24:34:00) Calcium Lvl: 8.9 mg/dL (11/24/24:34:00) Alk Phos: 91 Int._Unit/L (11/24/24:34:00) ALT: 9 Int._Unit/L (11/24/24:34:00) AST: 15 Int._Unit/L (11/24/24:34:) Total Protein: 6.6 gm/dL (11/24/24:34:00) Albumin Lvl: 3.8 gm/dL (11/24/24:34:00) Globulin: 2.8 gm/dL (11/24/24:34:00) A/G Ratio: 1.4 (11/24/24:34:) Bili Total: 0.6 mg/dL (11/24/24:34:00) Bili Direct: 0.1 mg/dL (11/24/24:34:) Bili Indirect: 0.5 mg/dL (11/24/24 17:34:00) Lipase [...] (11/24/24 19:51:00) Ethanol Lvl: (more content not included)...[facility]Comment on above:Result Comment: Electronically Signed By: Alec LUTHER DO.jihan\Date and Time Signed: 11/24/24 22:12 [id number] Hospital Discharge instructions Patient Education 10/29/2024 12:43:06 Chronic Obstructive Pulmonary Disease, Fclu-pw-Cpiy Chronic Obstructive Pulmonary Disease Chronic obstructive pulmonary [...] Follow these instructions at home: Medicines Take sliq-vtf-cdrzcvo and prescription medicines only as told by [...] keep yourself as healthy as possible. Take somw-omu-erghxrv and prescription medicines only as told by your doctor. If you smoke, stop. Smoking makes the problem worse. This information is not intended to replace advice given to you by your health care provider. Make sure you discuss any questions you have with your health care provider. Document Revised: 09/07/2021 Document Reviewed: 09/08/2021 [employer]Blip[employer] Patient Education 2023 [employer]. Follow Up Care 10/29/2024 07:41:38 With:Amilcar Matthews PA-C Address: When:11/05/2024 09:30:00 Comments:The doctor's office cancelled this Tuesday appoinment. With:Janelle POSEY, Fly Jean Baptiste [facility] Address: When:10/31/2024 14:30:00 [facility] 12-16-2024 Evaluation + Plan noteExtracted from: [...] day (at bedtime) With When Contact Information Janelle POSEY, Fly Jean Baptiste, [facility], [facility] Additional Instructions: Byron ZHANG, Amilcar Abbott Within 1 week Additional Instructions: Call for followup appointment Chronic Obstructive Pulmonary Disease, Dnee-uw-Voxf Extracted from: Title:Consult Note Author:Zulema POSEY, Clement Archibald ate:10/29/24 Chest pain in a patient with known history of CAD. Clearly noncardiac/musculoskeletal. No further cardiac workup is indicated. 1. COPD exacerbation (J44.1: Chronic obstructive pulmonary disease with (acute) exacerbation) 2. Chest pain (R07.9: Chest pain, unspecified) 3. CAD (coronary artery disease) (I25.10: Atherosclerotic heart disease of [place] coronary artery without angina pectoris) 4. HLD [...] Ordered: Initial Hospital Care/Day Moderate 55 Minutes [id number] 2. Chest pain (R07.9: Chest pain, unspecified) History of CAD Consult cardio Check echo Telemetry Ranexa Possible stress test, will discuss with cardiology 3. CAD (coronary artery disease) (I25.10: Atherosclerotic heart disease of [place] coronary artery without angina pectoris) Statin Aspirin [...] Future Appointments Appointment Date:10/31/2024 02:30:00 PM Scheduled Provider:Fly Luis MD Location:[facility] Appointment Type: ER/Hospital Follow Up Appointment Date:11/05/2024 09:30:00 AM Scheduled Provider:Amilcar Matthews PA-C [facility] Type:Cardiology Follow Up (FT) Appointment Date:12/03/2024 11:00:00 AM Scheduled Provider:Lexis Moe MD [facility] Type:Vascular New Patient (FT) Appointment Date:01/07/2025 01:00:00 PM Scheduled Provider:Fly Luis MD Location:[facility] Appointment Type: Open Appointment Date:06/18/2025 02:30:00 PM Scheduled Provider: Location:[facility] Appointment Type: Medicare Wellness Subsequent Future Scheduled Tests Laboratory* B-Type Natriuretic Peptide 12/01/23 * Basic Metabolic Panel 12/01/23 [facility] 12-16-2024 NotePatient Education - Text Pulmonary [...] these instructions at home: Medicines ??? Take mulw-ipp-dnbgruo and prescription medicines only as told by [...] shows that you h (more content not included)...[facility]12-16-2024 NoteDischarge Summary Admission and Discharge Information Admitting [...] medical history of CAD, PCI [facility]/2023 at [facility] COPD, anxiety/depression, hypertension, RLS, HLD, presented [...] EST, CP, hx of CAD, follows with [facility] cardio, Consult and Co-manage, Heart and Vascular Physical Exam Vitals & [...] 1 tab(s), Oral, BID, 2 refills Handicap Sanketard, 5 years., See Instructions isosorbide mononitrate 30 mg ER Tab, 30 mg= 1 tab(s), Oral, BID, 6 refills lo (more content not included)...[facility]: Result Comment: Electronically Signed By: Edmund Klein DO\.br\Date and Time Signed: 10/29/24 12:52 [id number] NoteConsultation Note Chief Complaint Pt presents to [...] to the circumflex with 1 MYNOR, PCI 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 in [place] later that year, who presented this morning [...] artery disease) (I25.10: Atherosclerotic heart disease of [place] coronary artery without angina pectoris) 4. HLD [...] Effexor XR 150 mg (more content not included)...[facility] Comment on above:Result Comment: Electronically Signed By: Zulema POSEY, Clement Archibald\.br\Date and Time Signed: 10/29/24 12:01 [id number] NoteHistory and Physical Chief Complaint Pt presents to ED via EMS with complaints of midsternal CP onset around 0400 today. pt administeredx3 nitro with minimal relief. EMS admin x1 nitro, breathing tx and 324 ASA. 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, COPD, anxiety/depression, hypertension, RLS, HLD, presented [...] 07:53:00) Lymph Auto: 42.1 % (10/29/24 07:53:00) [place] Auto: 9 % (10/29/24 07:53:00) Eos Auto: 2.3 % (10/29/24 07:53:00) Basophil Auto: 0.9 % (10/29/24 07:53:00) Neutro Absolute: 1.9 E9/L Low (10/29/24 07:53:00) Lymph Absolute: 1.8 E9/L (10/29/24 07:53:00) [place] Absolute: 0.4 E9/L (10/29/24 07:53:00) Eos Absolute: [...] Ordered: Initial Hospital Care/Day Moderate 55 Minutes [id number] (more content not included)...[facility]:Result Comment: Electronically Signed By: Edmund Klein DO.jihan\Date and Time Signed: 10/29/24 10:23 [id number] Hospital Discharge instructions Patient Education 10/10/2024 17:02:46 [...] home: Managing pain, stiffness, and swelling Take lmwj-siw-fdeqvnd and prescription medicines only as told by [...] each day. Do not sit, drive, or maintenance engineer one place for more than 30 minutes [...] put less stress on your back. Take bvux-iwb-xwiyfdc and prescription medicines only as told by your health care provider, and apply heat or ice as told. This information is not intended to replace advice given to you by your health care provider. Make sure you discuss any questions you have with your health care provider. Document Revised: 01/22/2022 Document Reviewed: 01/22/2022 [employer] Patient Education 2023 ODEC. Follow Up Care 10/10/2024 13:12:36 With:Fly Luis Address:Unknown When:10/13/2024 17:00:54 Comments:Call the office [...] breath, or any new or worsening symptoms. [facility] 11-27-2024 NoteED Patient Education Note Orthopedics [...] Managing pain, stiffness, and swelling ??? Take avkr-pkx-lhvduzs and prescription medicines only as told by [...] day. ??? Do not sit, drive, or maintenance engineer one place for more than 30 minutes [...] control problems. ??? Y (more content not included)...[facility] Evaluation + Plan noteExtracted from: Title:ED Note Author:Dioni Gallardo DO Date:12/10/23 Acute on chronic back pain ( M54.9: Dorsalgia, unspecified) Ordered: acetaminophen-hydrocodone, 1 tab(s), Oral, q6hr for pain for 3 day(s), 12 tab(s), Refill(s) 0, [facility]/pharmacy #[id number], 162.5, cm, 10/10/24 13:16:00 EST, Height/Length Dosing, 77.7, kg, 10/10/24 13:16:00 EST, Weight Dosing Other chronic pain (G89.29: Other chronic pain) Orders: methylPREDNISolone, = 1 packet(s), Oral, As Directed, as directed on package labeling, X 6 day(s), # 21 tab(s), Refills(s) 0, Pharmacy: [facility]/pharmacy #[id number], 162.5, cm, 10/10/24 13:16:00 EST, Height/Length [...] Date:11/02/2024 02:45:00 PM Scheduled Provider:Amilcar Matthews PA-C [facility] Type:Cardiology Follow Up (FT) Appointment Date:01/07/2025 01:00:00 PM Scheduled Provider:Fly Luis MD Location:[facility] Appointment Type:FM Open Appointment Date:06/18/2025 02:30:00 PM Scheduled Provider: Location:[facility] Appointment Type: Medicare Wellness Subsequent Future Scheduled Tests Laboratory* B-Type Natriuretic Peptide 12/01/23 * Basic Metabolic Panel 12/01/23 [facility] 10-14-2024 NoteDischarge Summary Admission and Discharge Information Admitting Physician - Eligio Lopez III, DO Consulting Physician - Joyce POSEY, Tiffany Archibald. [facility] Cardio, XXXX Admitting Diagnoses: 1. Chest pain, 08/13/2024 Discharge Diagnoses 1. Chest pain, Chest pain 2. CAD in [place] artery, 08/13/2024 3. HTN (hypertension), benign, 08/13/2024 4. COPD (chronic obstructive pulmonary disease), 08/13/2024 5. Anxiety and depression, 08/13/2024 6. Polyneuropathy, 08/13/2024 7. RLS (restless legs syndrome), 08/13/2024 8. 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 Per specialist,not ACS. Patient often [...] Ordered -- 08/13/24 12:28:00 EDT, CP, CAD, Joyce POSEY, Tiffany Chavarria, Consult and Co- manage, [...] Oral, Once a da (more content not included)...[facility] on above:Result Comment: Electronically Signed By: Maggie Jansen CNP\.br\Date and Time Signed: 08/24/24 12:38 EDT\.br\Electronically Co-Signed By: Eligio Lopez III, DO\.br\Date and Time Co-Signed: 08/27/24 10:07 [id number] NoteHistory and Physical Basic Information 63 year old with CAD, COPD presenting with CP Chief Complaint pt has chest pain since yesterday. Pt A&O x 3 with ABC's and MSP's intact. hx of FL and COPD. 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, COPD, HTN, anxiety/depression, RLS who follows [...] 09:12:00) Lymph Auto: 31.9 % (08/13/24 09:12:00) [place] Auto: 10.9 % (08/13/24 09:12:00) Eos Auto: 2.3 % (08/13/24 09:12:00) Basophil Auto: 0.9 % (08/13/24 09:12:00) Neutro Absolute: 2.7 E9/L (08/13/24 09:12:00) Lymph Absolute: 1.6 E9/L (08/13/24 09:12:00) [place] Absolute: 0.5 E9/L (08/13/24 09:12:00) Eos Absolute: [...] further observation -Complete t (more content not included)...[facility] TownshipComment on above:Result Comment: Electronically Signed By: Maggie Jansen CNP\.br\Date and Time Signed: 08/13/24 12:42 EDT\.br\Electronically Co-Signed By: Eligio Lopez III, DO\.br\Date and Time Co-Signed: 08/13/24 20:54 EDT 08-13-2024 Hospital Discharge instructions Patient Education 08/13/2024 17:47:45 Nonspecific Chest Pain, Adult, Wtzi-dv-Hhtb Nonspecific Chest Pain Chest pain can be [...] Follow these instructions at home: Medicines Take abwq-rej-ukmfhha and prescription medicines only as told by [...] provider. Document Revised: 09/15/2023 Document Reviewed: 09/15/2023 [employer] Patient Education 2023 ODEC. 08/13/2024 17:47:42 Aspirin and Your Heart Aspirin [...] take. The two forms of aspirin are: ?Ehc-qatsdlh-vtoyaf.This type of aspirin does not have a coating and is absorbed quickly. This typeof aspirin also comes in a chewable form. ?Enteric-coated. This type of aspirin has a coating that releases the medicine very slowly. Enteric-coated aspirin might cause less stomach upset than gyg-iwsbkoo-jgbxye aspirin. This type of aspirinshould not be [...] Follow these instructions at home Medicines Take rfgc-ymc-uyzwful and prescription medicines only as told by [...] important. Where to find more information The [place] [employer]: www.heart.org The Centers for Disease [...] provider. Document Revised: 01/02/2022 Document Reviewed: 01/02/2022 [employer] Patient Education 2023 ODEC. Follow Up Care 08/13/2024 08:49:52 With:Byron ZHANG, Amilcar Abbott Address: [address] [place] [phone] When:1 to 2 weeks With:Janelle POSEY, Fly Jean Baptiste [facility] Address: [address] 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 CAD in [place] artery (I25.10: Atherosclerotic heart disease of [place] coronary artery without angina pectoris) 3. HTN [...] a day (at bedtime) (more content not included)...[facility] on above:Result Comment: Electronically Signed By: Joyce POSEY, Tiffany Chavarria\.br\Date and Time Signed: 08/13/24 18:02 [id number] NotePatient Education - Text Gastroenterology Nonspecific Chest [...] these instructions at home: Medicines ? Take bhhj-ibd-qqsmbtf and prescription medicines only as told by [...] provider. Document Revised: 09/15/2023 Document Reviewed: 09/15/2023 [employer] Patient Education ? 2023 [employer] Pharmacology Aspirin and Your Heart Aspirin [...] reaction. People who h (more content not included)...[facility] Evaluation + Plan noteExtracted from: Title:Consult Note Author:Joyce POSEY, Fe Archibald. Date:08/13/24 63-year-old female with know n CAD, [...] Chest pain, unspecified)Chest pain 2. CAD in [place] artery (I25.10: Atherosclerotic heart disease of [place] coronary artery without angina pectoris) 3. HTN [...] admitted for further observation -Complete troponin trend -[facility] Cardiology consult for further recommendations 2. 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 HTN (hypertension), benign [...] Date:10/03/2024 11:30:00 AM Scheduled Provider:Amilcar Matthews PA-C Location:.Cardiology Clinic Appointment Type:Cardiology Follow Up (FT) Appointment Date:10/29/2024 03:30:00 PM Scheduled Provider:Fly Luis MD Location:[facility] Appointment Type: Open Appointment Date:06/18/2025 02:30:00 PM Scheduled Provider: Location:[facility] Appointment Type:FM Medicare Wellness Subsequent Future Scheduled Tests Laboratory* B-Type Natriuretic Peptide 12/01/23 * Basic Metabolic Panel 12/01/23 [facility] 07-31-2024 NotePatient Education Mental and Behavioral [...] Lifestyle (Inserted Image. Mary (more content not included)...[facility] 05-16-2024 Hospital Discharge instructions Patient Education 05/16/2024 12:28:59 Nonspecific Chest Pain, Adult, Womf-ol-Lbqz Nonspecific Chest Pain Chest pain can be [...] Follow these instructions at home: Medicines Take xexw-nyy-rmjnukd and prescription medicines only as told by [...] provider. Document Revised: 01/14/2022 Document Reviewed: 01/14/2022 [employer] Patient Education 2022 ODEC. Follow Up Care 05/15/2024 13:15:31 With:Tiffany Jansen Address: [address] [place] [address] [facility] (1) When:06/13/2024 09:15:00 Comments:Will be seeing Amilcar EMMANUEL at this appointment With:Fly Luis Address:Unknown When:05/28/2024 15:00:00 [facility]07-03-2024 Evaluation + Plan noteExtracted from: Title:Discharge Note Author:TARA POSEY, Ephraim Archibald ate:05/16/24 Stable Discharge To, Anticipated II - Home with responsible caregiver Discharged to - Home with family shelter Discharge Diet(s): Low Sodium- 2000 mg (05/16/24 [...] Tiffany Jansen Within [address] to [address] [place] [id number] [facility] (1) Additional Instructions: Call for followup appointment Fly Luis Within 3 to 5 days Additional Instructions: Call for followup appointment Nonspecific Chest Pain, Adult, Krfa-in-Uwsi Extracted from: Title:Consult Note Author:Joyce POSEY, Fe Chavarria Date:05/16/24 63-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 History of ST elevation myocardial infarction (STEMI) (I25.2: Old myocardial infarction) 8. Tobacco dependence (F17.200: Nicotine dependence, unspecified, uncomplicated) 9. Obese (E66.9: Obesity, unspecified) 10. 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: Other usp (current) drug therapy) Orders: prasugrel, 10 mg [...] Cardiology consult pending. Ordered: Consult to Cardiology [facility] Care/Day Moderate 35 Minutes 69802 2. Dizziness (R42: Dizziness and giddiness) Secondary to uncontrolled hypertension. Resolved. Ordered: Sbsq Hospital Care/Day Moderate 35 Minutes 55298 3. HTN (hypertension), benign (I10: Essential (primary) hypertension) Blood pressure well-controlled. Continue on Coreg and isosorbide-dose increased Continue on IV hydralazine as needed. Ordered: Sbsq Hospital Care/Day Moderate 35 Minutes 19632 4. RLS (restless legs syndrome) (G25.81: Restless legs syndrome) On ropinirole. Ordered: Sbsq Hospital Care/Day Moderate 35 Minutes 64226 5. COPD (chronic obstructive pulmonary disease) (J44.9: Chronic obstructive pulmonary disease, unspecified) Stable. On nebulizer treatments. 6. CAD (coronary artery disease) (I25.10: Atherosclerotic heart disease of [place] coronary artery without angina pectoris) History of [...] deep vein thrombosis (DVT) prophylaxis (Z79.899: Other usp (current) drug therapy) Lovenox. Disposition: Home soon pending cardiology evaluation. I discussed the diagnosis and plan of care with the patient at the bedside. Moderate level of MDM based on addressing above issues. This documentation was transcribed using voice recognition software. Several attempts were made to ensure accuracy. However inadvertent computerized crematorium operator errors may be present. Ephraim Ross. Hospitalist. [...] Cardiology Initial Hospital Care/Day Moderate 55 Minutes 68464 2. Dizziness (R42: Dizziness and giddiness) Suspect secondary to uncontrolled hypertension. Will start patient on antihypertensives. Ordered: Initial Hospital Care/Day Moderate 55 Minutes 44151 3. HTN (hypertension), benign (I10: Essential (primary) hypertension) Blood pressure uncontrolled. May be contributing to above. Resume Coreg and isosorbide. Started patient on IV hydralazine. Ordered: Initial Hospital Care/Day Moderate 55 Minutes 17578 4. RLS (restless legs syndrome) (G25.81: Restless legs syndrome) On ropinirole. Ordered: Initial Hospital Care/Day Moderate 55 Minutes 54867 5. COPD (chronic obstructive pulmonary disease) (J44.9: Chronic obstructive pulmonary disease, unspecified) Stable. 6. CAD (coronary artery disease) (I25.10: Atherosclerotic heart disease of [place] coronary artery without angina pectoris) Patient with history of STEMI status post stent times 17 July 2023. Stable. Continue on aspirin, prasugrel, Coreg and isosorbide. Ordered: Initial Hospital Care/Day Moderate 55 Minutes [address] elevation myocardial infarction (STEMI) (I25.2: Old myocardial infarction) Historical. Continue on home medications. 8. Tobacco dependence (F17.200: Nicotine dependence, unspecified, uncomplicated) Recommend cessation. Offered patient nicotine patch that she refused. 9. Obese (E66.9: Obesity, unspecified) Recommend therapeutic lifestyle modification changes. 10. 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: Other usp (current) drug therapy) Lovenox. Disposition: The patient [...] made to ensure accuracy. However inadvertent computerized crematorium operator errors may be present. Ephraim Ross. Hospitalist. [...] artery disease) (I25.10: Atherosclerotic heart disease of [place] coronary artery without angina pectoris) 7. History [...] Future Appointments Appointment Date:05/28/2024 03:00:00 PM Scheduled Provider:Fly Luis MD Location:[facility] Appointment Type: Hospital Follow Up w/TCM Appointment Date:06/12/2024 11:00:00 AM Scheduled Provider: Location:[facility] Appointment Type: Medicare Wellness Subsequent Appointment Date:06/13/2024 09:15:00 AM Scheduled Provider:Amilcar Matthews PA-C Location:.Cardiology Clinic Appointment Type:Cardiology Follow Up (FT) Future Scheduled Tests Laboratory* B-Type Natriuretic Peptide 12/01/23 * Basic Metabolic Panel 12/01/23 [facility]07-02-2024 NoteHistory and Physical Chief Complaint pt presents [...] (05/15/24:30:00) Lymph Auto: 33.2 % (05/15/24 13:30:00) [place] Auto: 9 % (05/15/24 13:30:00) Eos Auto: 2.6 % (05/15/24 13:30:00) Basophil Auto: 0.8 % (05/15/24 13:30:00) Neutro Absolute: 2.8 E9/L (05/15/24:30:00) Lymph Absolute: 1.7 E9/L (05/15/24 13:30:00) [place] Absolute: 0.5 E9/L (05/15/24 13:30:00) Eos Absolute: 0.1 E9/L (05/15/24 13:30:00) Basophil Absolute: 0 E9/L (05/15/24 13:30:00) PT: 10.1 second(s) (05/15/24 13:30:00) INR: 0.9 (05/15/24:30:00) PTT: 33.1 second(s) (05/15/24 13:30:00) Glucose Lvl: 100 mg/dL (05/15/24 13:30:00) BUN: 11 mg/dL (05/15/24 13:30:00) Creatinine: 0.5 mg/dL (05/15/24 13:30:00) eGFR: 104 mL/min/1.73 m2 (05/15/24 13:30:00) BUN/Creat Ratio: 22 High (05/15/24 13:30:00) Sodium Lvl: 140 mmol/L (05/15/24:30:00) Potassium Lvl: 3.7 mmol/L (05/15/24:30:00) Chloride: 106 mmol/L (05/15/24 13:30:00) CO2: 27 mmol/L (05/15/24:30:00) AGAP: 11 mEq/L (05/15/24 13:30:00) Calcium Lvl: 9.1 mg/dL (05/15/24 13:30:00) Magnesium: 1.9 mg/dL (05/15/24 13:30:00) Troponin HS: 5.7 pg/mL Low (05/15/24 13:30:00) Diagnostic Results (05/15/2024 13:49 EDT XR Chest Single View) * Final Report * Reason For Exam Chest pain POWERSCRIBE REPORT IMPRESSION: NO (more content not included)...[facility]:Result Comment: Electronically Signed By: TARA POSEY, Ephraim\.br\Date and Time Signed: 05/15/24 16:09 [id number] Nurse Note* Sherry Vides RN - 10/26/2023 4:43 PM EST Patient ambulated in lyles, groin site remained stable, discharge instructions reviewed with patientand family by MALACHI kaur, peripheral IV removed, final vitals and site assessment stable, discharged via wheelchair by RN [facility]12-13-2023 Nurse Note* Sherry Vides RN - 10/26/2023 4:43 PM EST Patient ambulated in lyles, groin site remained stable, discharge instructions reviewed with patientand family by MALACHI kaur, peripheral IV removed, final vitals and site assessment stable, discharged via wheelchair by RN * Claudia Holliday RN - 10/26/2023 3:51 PM EST HOB elevated 90 degrees. Groins stable. documented in this [facility] Work Phone: 1(321) 721-943312-13-2023 Hospital Discharge instructions* Discharge Instructions* Claudia Holliday [...] usually within one week. documented in this [facility] Work Phone: [phone]) 794-421612-13-2023 Nurse Note* Claudia Holliday RN - 10/26/2023 3:51 PM EST HOB elevated 90 degrees. Groins stable. [facility] Work Phone: [phone]) 696-810012-13-2023 Note* Post-Procedure Note - Bertha Santoyo MD - 10/26/2023 1:31 PM EST Physician Transition of Care Summary Invasive Cardiovascular Lab Procedure Date: 10/26/2023 Attending: * Harika Castrejon - Primary Resident/Fellow/Other Automobile Radiator Mechanic: Surgeon(s) and Role: Indications: Pre-op Diagnosis * 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 (CMS/HCC) [I25.112] Post-procedure diagnosis: Post-op Diagnosis * 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 (CMS/HCC) [I25.112] Procedure(s): PCI MYNOR Stent- PCI 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 (66585) 53534 - [place] PRQ TRLUML CORONRY CHRONIC OCCLUS REVASC ONE VSL IVUS - Coronary [place] PRQ TRLUML CORONRY CHRONIC OCCLUS REVASC ONE VSL [08589] Procedure Findings: Staged PCI to 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. S/p successful PCI with 2X MYNOR 3.0X48mm , 3.5X38mm post dilated to 4.0 proximally at the ostium. Description of the Procedure: Right POWDER HAND 6Fr --> 6Fr Angioseal Left POWDER HAND 6Fr --> 6Fr Angioseal Complications: None Stents/Implants: Cardiovascular Implants Stent Stent, Rufino Xchristen, Us, 3.00 X 48mm - [id number] - Implanted Inventory item: STENT, RUFINO XD, MR OLIVA, 3.00 X 48MM Model/Cat number: [id number] Psychiatry Physician: [employer] Lot number: [id number] Device identifier: [id number] As of 10/26/2023 Status: Implanted Stent, Rufino Xd, Mr Oliva, 3.50 X 38mm - [id number] - Implanted Inventory item: STENT, RUFINO XD, MR OLIVA, 3.50 X 38MM Model/Cat number: [id number] Psychiatry Physician: [employer] Lot number: [id number] Device identifier: [id number] As of 10/26/2023 Status: Implanted Anticoagulation/Antiplatelet Plan: [...] by: Bertha Santoyo MD, 10/26/2023 1:31 PM [facility] Work Phone: 1([phone] 270-451812-13-2023 Miscellaneous Notes* Post-Procedure Note - Bertha Santoyo MD - 10/26/2023 1:31 PM EST Physician Transition of Care Summary Invasive Cardiovascular Lab Procedure Date: 10/26/2023 Attending: Vanessa Castrejon - Primary Resident/Fellow/Other Automobile Radiator Mechanic: Surgeon(s) and Role: Indications: Pre-op Diagnosis * 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 S/p successful PCI with 2X MYNOR 3.0X48mm , 3.5X38mm post dilated to 4.0 proximally at the ostium. Description of the Procedure: Right POWDER HAND 6Fr --> 6Fr Angioseal Left POWDER HAND 6Fr --> 6Fr Angioseal Complications: None Stents/Implants: Cardiovascular Implants Stent StentRufino Mr Us, 3.00 X 48mm - [id number] - Implanted Inventory item: STENTRUFINO MR US, 3.00 X 48MM Model/Cat number: [id number] Psychiatry Physician: [employer] Lot number: [id number] Device identifier: [id number] As of 10/26/2023 Status: Implanted StentRufino Mr Us, 3.50 X 38mm - [id number] - Implanted Inventory item: STENTRUFINO MR US, 3.50 X 38MM Model/Cat number: [id number] Psychiatry Physician: [employer] Lot number: [id number] Device identifier: [id number] As of 10/26/2023 Status: Implanted Anticoagulation/Antiplatelet Plan: [...] discussed with patient. Irvin Garcia MD Interventional Employee Wellness/Fitness Coordinator, PGY8 [facility] Work Phone: 1([phone]) 508-193812-13-2023 Note* Pre-Sedation Documentation - Jacob Garcia MD - 10/26/2023 10:53 AM EST Sedation Plan ASA 3 Mallampati class: II. Risks, benefits, and alternatives discussed with patient. Irvin Garcia MD Interventional Employee Wellness/Fitness Coordinator, PGY8 [facility] Work Phone: 1([phone] 471-776612-13-2023 History and physical note* GAURAV Aly - [...] mg, oral, 2 times daily with meals dogshucndjn-shntjkaoj-udxojwnd (Trelegy Ellipta) 100-62.5-25 mcg blister with device [...] COVID-19 what the risks are. GAURAV Aly [facility] Work Phone: [phone]) 639-242912-13-2023 History and physical note* GAURAV Aly - [...] mg, oral, 2 times daily with meals atlamrdgsfz-hwyufydkz-lheazppc (Trelegy Ellipta) 100-62.5-25 mcg blister with device [...] contract COVID-19 what the risks are. Noé Sanchez APRN-RELIABILITY MANAGER documented in this [facility] Work Phone: 1([phone]) 819-404411-28-2023 History of Present illness Narrative* Harika Castrejon MD - 10/11/2023 3:30 PM EST Cardiology New Patient History and Physical Reason for referral: OUTBOUND SALES EXECUTIVE HPI: Ella Jacobo is a 62 y.o. female who presents today for evaluation of OUTBOUND SALES EXECUTIVE PCI of the RCA. Patient is a 62-year-old female history of coronary artery disease. She presented with an FL in June 2023. She was found to have total occlusion of the RCA. She underwent attempted OUTBOUND SALES EXECUTIVE PCI in August 2023. This was unsuccessful. [...] a day with meals., Disp: , Rfl: yakdthnehwv-kttqthkyb-oagxjird (Trelegy Ellipta) 100-62.5-25 mcg blister with device, [...] No results found for: TSH Assessment: 1. OUTBOUND SALES EXECUTIVE of the RCA with rzhu-nc-rmwwc collaterals Patient is on reasonable medical therapy including beta-blockade, calcium channel tamika, isosorbide and ranolazine. She is still symptomatic despite 4 antianginal medications. Patient is on aspirin, ticagrelor and high intensity statin therapy. Risks and benefits of OUTBOUND SALES EXECUTIVE PCI discussed with the patient. Patient is agreeable to attempted OUTBOUND SALES EXECUTIVE PCIof the RCA. This will be done in the near future. Patient will follow-up with Dr. Jansen as previously scheduled. Thank you for allowing us to participate in the care of the patient. Please contact us with any questions or concerns. Harika Castrejon MD documented in this [facility] Work Phone: [phone]) 432-439810-25-2023 Note* Significant Event - Marianna Tong RN [...] further needs. Ready to discharge to home. [facility] Work Phone: [phone]) 442-719010-25-2023 Miscellaneous Notes* Significant Event - Marianna Tong [...] Attending: * Tiffany Jansen - Primary Resident/Fellow/Other Automobile Radiator Mechanic: Surgeon(s) and Role: Indications: Pre-op Diagnosis * Coronary artery disease [I25.10] Post-procedure diagnosis: Post-op Diagnosis * Coronary artery disease [I25.10] Procedure(s): PCI MYNOR Stent- Coronary 17816 - [place] PRQ TRLUML CORONARY STENT W/ANGIO ONE ART/BRNCH Procedure Findings: OUTBOUND SALES EXECUTIVE of the RCA Description of the Procedure: [...] Immediate Disposition: Refer to Dr. Blair at [facility] for OUTBOUND SALES EXECUTIVE angioplasty. Electronically signed by: Tiffany Jansen MD, 09/07/2023 12:09 PM * Pre-Sedation Documentation - Tiffany Jansen MD - 09/07/2023 11:08 AM EDT Sedation Plan ASA 2 Mallampati class: II. Risks, benefits, and alternatives discussed with patient. documented in this [facility] Work Phone: [phone]) 268-510210-25-2023 Note* Significant Event - Marianna Tong RN - 09/07/2023 2:45 PM EDT Pt ambulated down lyles to RR and voided clear/yellow urine. Bilateral groin sites remain soft and stable with no hematoma or oozing. Pt denies needs at this time. [facility] Work Phone: [phone] Note* Significant Event - Marianna Tong RN - 09/07/2023 1:33 PM EDT HOB increased to 30 degrees, bilateral groin sites soft and stable with no hematoma or oozing. Pt drinking water/diet pepsi and eating turkey sandwich box. Denies further needs at this time. [facility] Work Phone: 1([phone]) 630-533710-25-2023 Note* Significant Event - Marianna Tong RN - 09/07/2023 1:21 PM EDT Bilateral groin sites soft and stable with no hematoma or oozing. Pt denies needs. [facility] Work Phone: [phone]) 727-240910-25-2023 Note* Significant Event - Marianna Tong RN - 09/07/2023 12:39 PM EDT Bilateral groins remain soft and stable with no hematoma or oozing. Pt denies needs. [facility] Work Phone: [phone] Note* Significant Event - Marianna Tong RN - 09/07/2023 12:38 PM EDT Upon arrival to room focused assessment performed and WDL. Bilateral groins soft and stable with nohematoma or oozing. Educated Pt on current restrictions d/t bilateral groin sites arterial punctures. Daughters at bedside with her, Pt denies further needs at this time. [facility] Work Phone: [phone]) 343-729610-25-2023 Note* Post-Procedure Note - Tiffany Jansen MD - 09/07/2023 12:09 PM EDT Physician Transition of Care Summary Invasive Cardiovascular Lab Procedure Date: 09/07/2023 Attending: * Tiffany Jansen - Primary Resident/Fellow/Other Automobile Radiator Mechanic: Surgeon(s) and Role: Indications: Pre-op Diagnosis * Coronary artery disease [I25.10] Post-procedure diagnosis: Post-op Diagnosis * Coronary artery disease [I25.10] Procedure(s): PCI MYNOR Stent- Coronary 16326 - [place] PRQ TRLUML CORONARY STENT W/ANGIO ONE ART/BRNCH Procedure Findings: OUTBOUND SALES EXECUTIVE of the RCA Description of the Procedure: [...] SCREEN Blood, Venous Collected By: Enma Moon [facility] 09/07/2023 9:33 AM Release result to MyChart Immediate BASIC METABOLIC PANEL Blood, Venous Collected By: Enma Moon [facility] 09/07/2023 9:33 AM Release result to MyChart Immediate CBC Blood, Venous Collected By: Enma Moon [facility] 09/07/2023 9:33 AM Release result to MyChart Immediate Disposition: Refer to Dr. Blair at [facility] for OUTBOUND SALES EXECUTIVE angioplasty. Electronically signed by: Tiffany Jansen MD, 09/07/2023 12:09 PM [facility] Work Phone: 1([phone]) [phone] Note* Pre-Sedation Documentation - Tiffany Jansen MD - 09/07/2023 11:08 AM EDT Sedation Plan ASA 2 Mallampati class: II. Risks, benefits, and alternatives discussed with patient. [facility] Work Phone: [phone] History and physical note* Tiffany Jansen MD - 09/07/2023 11:06 AM EDT History Of Present Illness Ella Jacobo is a 62 y.o. female presenting with Need for PCI at [facility] for OUTBOUND SALES EXECUTIVE.. [facility]. Past Medical History Past [...] Principal Problem: Coronary artery disease Planned PCI 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 I spent 10 minutes in the professional and overall care of this patient. Tiffany Jansen MD [facility] Work Phone: [phone]) 528-108710-25-2023 History and physical note* Tiffany Jansen MD - 09/07/2023 11:06 AM EDT History Of Present Illness Ella Jacobo is a 62 y.o. female presenting with Need for PCI at [facility] for OUTBOUND SALES EXECUTIVE.. [facility]mit at [facility] for chest pain. Past Medical History Past [...] Principal Problem: Coronary artery disease Planned PCI 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 I spent 10 minutes in the professional and overall care of this patient. Tiffany Jansen MD documented in this [facility] Work Phone: 1(188) 433-300810-20-2023 Evaluation + Plan noteExtracted from: Title:Discharge Note [...] 5 mg Tab With When Contact Information [address] [place] [address]- Additional Instructions: Cardiac Cath with Intervention scheduled at [facility]- Go to the second floor for check in, park on the second floor parking garage Arrive at 8 am, Procedure Scheduled for 10 am NPO after midnight, OK to take meds with sip of water- be sure to take asa and Brilinta! Call [facility] Cardiology Office, [place], with any questions Fly Luis In 0 days [address] [place] [address]- Business (2) Additional Instructions: Extracted from: Title:Admission H & P Author:Alec LUTHER DO Date:09/01/23 1. Chest pain (R07.9: Chest pain, unspecified) Cycle cardiac enzymes. Nitroglycerin sublingual as needed. EKG as needed. Will consult cardiology. We will keep patient n.p.o. after midnight for possible heart catheterization. 2. Hypokalemia (E87.6: Hypokalemia) Replete and recheck with morning labs 3. CAD in [place] artery (I25.10: Atherosclerotic heart disease of [place] coronary artery without angina pectoris) We will [...] deep vein thrombosis (DVT) prophylaxis (Z79.899: Other usp (current) drug therapy) SCD, enoxaparin Orders: acetaminophen, [...] Future Appointments Appointment Date:09/13/2023 03:40:00 PM Scheduled Provider:Fly Luis MD Location:[facility] Appointment Type: ER/Hospital Follow Up Appointment Date:10/27/2023 01:45:00 PM Scheduled Provider:Joyce POSEY, Tiffany Chavarria [facility] Appointment Type:Cardiology Follow Up (FT) Appointment Date:06/13/2024 11:00:00 AM Scheduled Provider: Location:[facility] Appointment Type: Medicare Wellness Subsequent Future Scheduled Tests Radiology* BD Bone Density DEXA 09/13/22 * MA Mamm Screen w/CAD if perf and 3D Jason 09/13/22 [facility]10-20-2023 NoteAdmission and Discharge Information Admitting Physician - Alec LUTHER DO Consulting Physician - [facility] Cardio, XXXX Admitting Diagnoses: Discharge Diagnoses 1. Chest pain, 09/01/2023 2. Hypokalemia, 09/01/2023 3. CAD in [place] artery, 09/01/2023 4. COPD (chronic obstructive pulmonary [...] for high risk left heart cath at [facility] on 09/07/2023. She was seen by cardiology. Ranexa was implemented. She will be discharged with Ranexa. Patient was deemed appropriate discharge home per cardiology. On day of discharge shewas vitally hemodynamically clinically stable. Follow up w/Cardiology Services Consulted Consult to Cardiology (Cardiology Consult) - Ordered -- 09/01/23 21:58:00 EDT, Chest pain, Consult and Co-manage, FT Heart and Vascular Consult to Professor Of Geography - Ordered -- 09/01/23 22:11:26 EDT Physical [...] 61.4 % Lymph Auto - 29.3 % [place] Auto - 5.5 % Eos Auto - 3.1 % Basophil Auto - 0.7 % Neutro Absolute - 4.1 E9/L Lymph Absolute - 2.0 E9/L [place] Absolute - 0.4 E9/L Eos Absolute - [...] Trelegy Ellipta 100 mcg-62. (more content not included)...[facility]:Result Comment: Electronically Signed By: Lisbet POSEY, Rosa Maria\.br\Date and Time Signed: 09/02/23 12:41 [id number] NoteChief Complaint chest pain nausea History of [...] 13.1 gm/dL (09/01/23 19:24:00) Hct: 38.5 % (09/01/23 19:24:00) MCV: 93.5 fL (09/01/23) MCH: 31.9 pg (09/01/23:) MCHC: 34.1 gm/dL (09/01/23) RDW: 13.3 % (09/01/23) Platelet: 240 E9/L (09/01/23:) MPV: 8 fL (09/01/23) Neutro Auto: 61.4 % (09/01/23:) Lymph Auto: 29.3 % (09/01/23:) [place] Auto: 5.5 % (09/01/23) Eos Auto: 3.1 % (09/01/23) Basophil Auto: 0.7 % (09/01/23) Neutro Absolute: 4.1 E9/L (09/01/23) Lymph Absolute: 2 E9/L (09/01/23) [place] Absolute: 0.4 E9/L (09/01/23) Eos Absolute: 0.2 E9/L (09/01/23) Basophil Absolute: 0 E9/L (09/01/23) PT: 11.5 second(s) (09/01/23:00) INR: 1 (09/01/23:) PTT: 31.9 second(s) (09/01/23:) Glucose Lvl: 166 mg/dL (09/01/23:) BUN: 8 mg/dL (09/01/23:) Creatinine: 0.7 mg/dL (09/01/23:) eGFR: 97 mL/min/1.73 m2 (09/01/23:) BUN/Creat Ratio: 11 (09/01/23:) Sodium Lvl: 131 mmol/L Low (09/01/23:00) Potassium Lvl: 2.7 mmol/L Critical (10/19/23 19:24:00) Chloride: 102 mmol/L (09/01/23:24:00) CO2: 21 mmol/L (09/01/23::00) AGAP: 11 mEq/L (09/01/23:) Calcium Lvl: 8.7 mg/dL Low (09/01/23:00) Alk Phos: 136 Int._Unit/L High (09/01/23:00) ALT: 20 Int._Unit/L (09/01/23:00) AST: 24 Int._Unit/L (09/01/23:) Total Protein: 6.9 gm/dL (09/01/23:) Albumin Lvl: 3.5 gm/dL (09/01/23:) Globulin: 3.4 [...] recheck with morning labs 3. CAD in [place] artery (I25.10: Atherosclerotic heart disease of [place] coronary artery without angina pectoris) We will [...] On deep vein throm (more content not included)...[facility] Comment on above:Result Comment: Electronically Signed By: Alec LUTHER DO.jihan\Date and Time Signed: 09/01/23 22:27 [id number] Hospital Discharge instructions Follow Up Care 09/01/2023 18:57:28 With:Fly Luis Address: [address] [place] [address]- Business (2) When:09/13/2023 15:40:00 With:[facility] Address: [address] [place] [address]- When: Unknown Comments:Cardiac Cath with Intervention scheduled at [facility]- Go to the second floor for check in, park on the second floor parking garageArrive at 8 am, Procedure Scheduled for 10 amNPO after midnight, OK to take meds with sip of water- be sure to take asa and Brilinta!Call [facility] Cardiology Office, [place], with any questions [facility]09-25-2023 Hospital Discharge instructions Follow Up Care 08/08/2023 14:27:10 With:Your biomedical equipment specialist Address:Unknown When:08/11/2023 16:03:52 With:Fly Luis Address: [address] [place] [phone] Business (2) When:Within 3 Day(s) [facility]09-25-2023 Evaluation + Plan noteExtracted from: Title:ED [...] Future Appointments Appointment Date:08/11/2023 02:20:00 PM Scheduled Provider:Fly Luis MD Location:[facility] Appointment Type: Open Appointment Date:09/01/2023 01:45:00 PM Scheduled Provider:Tiffany Jansen MD Location[facility] Appointment Type:Cardiology Follow Up (FT) Appointment Date:06/13/2024 11:00:00 AM Scheduled Provider: Location:[facility] Appointment Type: Medicare Wellness Subsequent Future Scheduled Tests Radiology* BD Bone Density DEXA 09/13/22 * MA Mamm Screen w/CAD if perf and 3D Jason 09/13/22 [facility]08-28-2023 Note [id number]:127[facility]-10-[facility] Evaluation + Plan noteExtracted from: Title:Discharge [...] 5 mg Tab With When Contact Information Fly Luis In 0 days [address] [place] [id number] [facility] (2) Additional Instructions: Heart Attack, Isuf-km-Vrjw Extracted from: Title:Admission H & P Author:Bruno [...] a blood pressure was lower in the [facility] but then had improved. However when evaluating [...] as she was taken urgently to the [facility] this was not replaced. Patient was given Lasix in the [facility] due to above. I therefore gave him [...] 2 midnight stay Extracted from: Title:Consult Note Author:Joyce POSEY, Fe Chavarria Date:07/09/23 CAD: DAPT, beta-tamika, [...] Future Appointments Appointment Date:08/11/2023 02:20:00 PM Scheduled Provider:Fly Luis MD Location:[facility] Appointment Type: Open Appointment Date:06/13/2024 11:00:00 AM Scheduled Provider: Location:[facility] Appointment Type: Medicare Wellness Subsequent Future Scheduled Tests Radiology* BD Bone Density DEXA 09/13/22 * MA Mamm Screen w/CAD if perf and 3D Jason 09/13/22 [facility]08-27-2023 Hospital Discharge instructions Patient Education 07/10/2023 10:05:25 Heart Attack, Hnow-hl-Fbgg Heart Attack A heart attack occurs when [...] Follow these instructions at home: Medicines Take dgrn-gqm-gwfuykx and prescription medicines only as told by [...] provider. Document Revised: 04/22/2022 Document Reviewed: 04/22/2022 [employer] Patient Education 2022 ODEC. Follow Up Care 07/09/2023 19:33:14 With:Fly Luis Address: [address] [place] [address]- Business (2) When: Unknown [facility]08-27-2023 NoteAdmission and Discharge Information Admit Date/Time:07/09/2023 19:33 Admitting Physician - Bruno CRUZ DO Consulting Physician - Joyce POSEY, Tiffany Chavarria Admitting Diagnoses: Discharge Order [...] patient will additionally be counseled by the [facility] team and in follow-up. CAD: DAPT, beta-tamika, statin, risk factor modification. Complications None Technique Following full and informed consent the patient was brought to the [facility] where sterile prep and drape were administered in usual fashion. Anesthesia was obtained in the right wrist with lidocaine after administration of conscious sedation. A 5/6 slender Terumo sheath was placed in the right radial artery without complication. Nitroglycerin and nicardipine were given via the sheath and heparin was given intravenously. A 6 [place] XB3.0 catheter was advanced and selectively engaged [...] Co-manage, FT Heart and Vascular Consult to Professor Of Geography (Professor Of Geography Consult) - Ordered -- 07/09/23 21:58:49 E (more content not included)...[facility] Comment on above:Result Comment: Electronically Signed By: BILL POSEY, Rosalinda\.br\Date and Time Signed: 07/10/23 10:[id number] NoteProcedure [facility] poss PCI via right radial for [...] (I21.3: ST elevation (STEMI) myocardial infarctionof unspecified site)[facility] on above:Result Comment: Electronically Signed By: Joyce POSEY, Tiffany Chavarria\.br\Date and Time Signed: 07/10/23 03:24 [id number] NoteBasic Information Admit Date/Time:07/09/2023 19:33 Chief Complaint [...] called she was taken urgently to the [facility] after receiving 4782 units of heparin 180 mg of Brilinta and noting that she had 4 baby aspirin in route to the hospital. Per discussion with Dr. Rylee augustin the culprit lesion was the left circumflex which a drug-eluting stent was placed. I haveaddieen advised that patient had 100% occlusion of the right coronary artery with collateral flow. Patient's ejection fraction was 40%. Because of her shortness of breath and reduced ejection fraction she was given Lasix 40 mg intravenously in the [facility]. Patient states that her chest discomfort didnot [...] to burning with potassium (more content not included)...[facility] on above:Result Comment: Electronically Signed By: Bruno CRUZ DO\eleni\Date and Time Signed: 07/09/23 22:49 [id number] Evaluation note* Encounter Date Diagnosis Assessment Notes [...] without current pathological fracture (ICD-10 - M81.0) [facility] 06-01-2023 Evaluation note* Encounter Date Diagnosis [...] I will prescribe 1 week supply of [place] to be taken once to twice daily [...] interventional options in the future, if applicable. [facility] 01-12-2023 Hospital Discharge instructions Patient Education [...] height. This can be done either in [place] ([place] or metric measurements. Note that charts are available to help you find your BMI quickly and easily without having to do these calculations yourself. To calculate your BMI in [place] ([place] measurements, your health care provider will: [...] medical problems. BMI can be measured using [place]ian measurements or metric measurements. To interpret your [...] 07/12/2005 Document Revised: 10/13/2018 Document Reviewed: 09/13/2018 [employer] Patient Education [email or web address]. [facility] 10-31-2022 Evaluation + Plan note Future Scheduled Tests Radiology* BD Bone Density DEXA 09/13/22 * MA Mamm Screen w/CAD if perf and 3D Jason 09/13/22 [facility] Evaluation + Plan note Future Appointments Appointment Date:11/17/2022 04:40:00 PM Scheduled Provider:Fly Luis MD Location:[facility] Appointment Type: Open Future Scheduled Tests Radiology* BD Bone Density DEXA 09/13/22 * MA Mamm Screen w/CAD if perf and 3D Jason 09/13/22 [facility] Evaluation + Plan note Future Appointments Appointment Date:11/26/2022 01:15:00 PM Scheduled Provider: [facility] Type:EMG Bilateral Upper Extremity Appointment Date:12/02/2022 03:20:00 PM Scheduled Provider:Fly Luis MD Location:[facility] Appointment Type: Open Future Scheduled Tests Radiology* BD Bone Density DEXA 09/13/22 * MA Mamm Screen w/CAD if perf and 3D Jason 09/13/22 [facility] App[facility]ments Appointment Date:12/01/2022 03:30:00 PM Scheduled Provider: Location:[facility] Appointment Type: Medicare Wellness Initial Appointment Date:12/13/2022 01:00:00 PM Scheduled Provider: [facility] Type:EMG Bilateral Upper Extremity Appointment Date:02/07/2023 03:00:00 PM Scheduled Provider:Fly Luis MD Location:[facility] Appointment Type: Open Future Scheduled Tests Radiology* BD Bone Density DEXA 09/13/22 * MA Mamm Screen w/CAD if perf and 3D Jason 09/13/[address] [facility] [place] Evaluation + Plan note Future Appointments Appointment Date:08/11/2023 02:20:00 PM Scheduled Provider:Fly Luis MD Location:[facility] Appointment Type: Open Appointment Date:09/01/2023 01:45:00 PM Scheduled Provider:Tiffany Jansen MD [facility] Appointment Type:Cardiology Follow Up (FT) Appointment Date:06/13/2024 11:00:00 AM Scheduled Provider: Location:[facility] Appointment Type:FM Medicare Wellness Subsequent Future Scheduled Tests Radiology* BD Bone Density DEXA 09/13/22 * MA Mamm Screen w/CAD if perf and 3D Jason 09/13/22 [facility] Future Appointments Appointment Date:10/27/2023 01:45:00 PM Scheduled Provider:Tiffany Jansen MD [facility] Appointment Type:Cardiology Follow Up (FT) Appointment Date:06/13/2024 11:00:00 AM Scheduled Provider: Location:[facility] Appointment Type: Medicare Wellness Subsequent Future Scheduled Tests Radiology* BD Bone Density DEXA 09/13/22 * MA Mamm Screen w/CAD if perf and 3D Jason 09/13/22 [facility] Future Appointments Appointment Date:10/13/2023 02:00:00 PM Scheduled Provider:Tiffany Jansen MD [facility] App[facility]ment Type:Cardiology Follow Up (FT) Appointment Date:10/27/2023 01:45:00 PM Scheduled Provider:Tiffany Jansen MD [facility] Appointment Type:Cardiology Follow Up (FT) Appointment Date:10/31/2023 04:00:00 PM Scheduled Provider:Fly Luis MD Location:[facility] Appointment Type: Open Appointment Date:06/13/2024 11:00:00 AM Scheduled Provider: Location:[facility] Appointment Type: Medicare Wellness Subsequent [facility] App[facility]ments Appointment Date:10/31/2023 04:00:00 PM Scheduled Provider:Fly Luis MD Location:[facility] Appointment Type: Open Appointment Date:11/10/2023 01:00:00 PM Scheduled Provider:Tiffany Jansen MD [facility] Appointment Type:Cardiology Follow Up (FT) Appointment Date:01/06/2024 01:15:00 PM Scheduled Provider:Tiffany Jansen MD [facility] Appointment Type:Cardiology Follow Up (FT) Appointment Date:06/13/2024 11:00:00 AM Scheduled Provider: Location:[facility] Appointment Type: Medicare Wellness Subsequent [facility] Future Appointments Appointment Date:01/06/2024 01:15:00 PM Scheduled Provider:Tiffany Jansen MD [facility] Appointment Type:Cardiology Follow Up (FT) Appointment Date:06/13/2024 11:00:00 AM Scheduled Provider: Location:[facility] Appointment Type: Medicare Wellness Subsequent Future Scheduled Tests Laboratory* B-Type Natriuretic Peptide 12/01/23 * Basic Metabolic Panel 12/01/23 [facility] Future Appointments Appointment Date:06/13/2024 11:00:00 AM Scheduled Provider: Location:[facility] Appointment Type: Medicare Wellness Subsequent Future Scheduled Tests Laboratory* B-Type Natriuretic Peptide 12/01/23 * Basic Metabolic Panel 12/01/23 [facility] Future Appointments Appointment Date:06/12/2024 11:00:00 AM Scheduled Provider: Location:[facility] Appointment Type: Medicare Wellness Subsequent Appointment Date:06/26/2024 01:20:00 PM Scheduled Provider: Location:[facility] Appointment Type:FM Lab Draw Appointment Date:06/28/2024 02:30:00 PM Scheduled Provider:Amilcar Matthews PA-C [facility] Type:Cardiology Follow Up (FT) Future Scheduled Tests Laboratory* B-Type Natriuretic Peptide 12/01/23 * Basic Metabolic Panel 12/01/23 [facility] Future Appointments Appointment Date:06/26/2024 01:20:00 PM Scheduled Provider: Location:[facility] Appointment Type: Lab Draw Appointment Date:07/04/2024 01:00:00 PM Scheduled Provider:Amilcar Matthews PA-C [facility] Type:Cardiology Follow Up (FT) Appointment Date:10/29/2024 03:30:00 PM Scheduled Provider:Fly Luis MD Location:[facility] Appointment Type: Open Appointment Date:06/18/2025 02:30:00 PM Scheduled Provider: Location:[facility] Appointment Type: Medicare Wellness Subsequent Future Scheduled Tests Laboratory* B-Type Natriuretic Peptide 12/01/23 * Basic Metabolic Panel 12/01/23 [facility] evaluation + Plan note Future Appointments Appointment Date:10/03/2024 11:30:00 AM Scheduled Provider:Amilcar Matthews PA-C [facility] Type:Cardiology Follow Up (FT) Appointment Date:10/29/2024 03:30:00 PM Scheduled Provider:Fly Luis MD Location:[facility] Appointment Type: Open Appointment Date:06/18/2025 02:30:00 PM Scheduled Provider: Location:[facility] Appointment Type: Medicare Wellness Subsequent Future Scheduled Tests Laboratory* B-Type Natriuretic Peptide 12/01/23 * Basic Metabolic Panel 12/01/23 [facility] evaluation + Plan note Future Appointments Appointment Date:10/29/2024 03:30:00 PM Scheduled Provider:Fly Luis MD Location:[facility] Appointment Type: Open Appointment Date:11/02/2024 02:45:00 PM Scheduled Provider:Amilcar Matthews PA-C [facility] Type:Cardiology Follow Up (FT) Appointment Date:06/18/2025 02:30:00 PM Scheduled Provider: Location:[facility] Appointment Type: Medicare Wellness Subsequent Future Scheduled Tests Laboratory* B-Type Natriuretic Peptide 12/01/23 * Basic Metabolic Panel 12/01/23 [facility] evaluation + Plan note Future Appointments Appointment Date:12/03/2024 11:00:00 AM Scheduled Provider:Lexis Moe MD [facility] Type:Vascular New Patient (FT) Appointment Date:12/14/2024 01:00:00 PM Scheduled Provider:Amilcar Matthews PA-C [facility] Type:Cardiology Follow Up (FT) Appointment Date:01/07/2025 01:00:00 PM Scheduled Provider:Fly Luis MD Location:[facility] Appointment Type:FM Open Appointment Date:06/18/2025 02:30:00 PM Scheduled Provider: Location:[facility] Appointment Type: Medicare Wellness Subsequent Future Scheduled Tests Laboratory* B-Type Natriuretic Peptide 12/01/23 * Basic Metabolic Panel 12/01/23 [facility] evaluation + Plan note Future Appointments Appointment Date:01/24/2025 10:45:00 AM Scheduled Provider:Fly Luis MD Location:[facility] Appointment Type:FM Open Appointment Date:06/18/2025 02:30:00 PM Scheduled Provider: Location:[facility] Appointment Type: Medicare Wellness Subsequent Future Scheduled Tests Radiology* US PVR Upper EXT Complete Bilat 01/07/25 * US Upper Extremity Venous Duplex Bilateral 01/07/25 [facility] evaluation noteNo assessment information [facility] Work Phone: Evaluowtnj noteNo InformationNortL[facility] [employer] Other Evaluation note* Diagnosis Coronary artery disease- Primary Coronary atherosclerosis of unspecified type of vessel, [place] or graft CAD (coronary artery disease) Coronary atherosclerosis of unspecified type of vessel, [place] or graft Angina pectoris, unspecified (CMS/HCC) Coronary artery disease Coronary atherosclerosis of unspecified type of vessel, [place] or graft documented in this encounter [facility] Work Phone: Evaluation note* Diagnosis HTN (hypertension), benign- Primary Essential hypertension, benign 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 (CMS/HCC) documented in this encounter [facility] Work Phone: Evaluation note* Diagnosis Coronary artery disease- Primary Coronary atherosclerosis of unspecified type of vessel, [place] or graft 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 (CMS/HCC) Acute ST elevation myocardial infarction (STEMI) (CMS/HCC) 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 (CMS/HCC) documented in this encounter [facility] Work Phone: Evaluation note* Diagnosis Polyneuropathy- Primary Unspecified hereditary and idiopathic peripheral neuropathy Degeneration of intervertebral disc of lumbar region with discogenic back pain and lower extremity pain Degenerative disc disease, cervical Recurrent falls Weakness Other malaise and fatigue documented in this encounter [facility] N[facility] - Reported* Type Description Date Medical History hypertension, benign Medical History chronic depression Medical History anxiety Medical History restless leg syndrome Medical History psychiatric disorder Surgical History cholecystectomy Surgical History hysterectomy Surgical History back surgery Hospitalization History See Above [employer] Other Hospital course Narrative No data available for this section [facility] Discharge instructions No data available for this section [facility] Progress note No data available for this section [facility] Rerjlp for referral (narrative) Referred by: Fly Luis MD Referred by: Fly Luis MD [facility] Repzbc for referral (narrative)* Consultation (Routine) - Authorized Specialty Diagnoses / Procedures Referred By Ara lares Referred To Contact Cardiac Rehabilitation Diagnoses 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 (CMS/HCC) Acute ST elevation myocardial infarction (STEMI) (CMS/HCC) Noé Sanchez, [employer] 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 Referral Update [facility] [employer] Other Summary Purpose Family History No Family [...] History Records FoundNo Family History Records Found Advance Directives No Advanced Directives Records Found Advance Directive Response Recorded Date/ Time Advance Directives No January 27 12:08pm Latest Code Status on File Code [...] spine, unspecified scoliosis type (M41.9) Referral Organization [facility] Referring Provider First Name Jose Referring Provider Last Name Anthony Referring Provider Specialty Neurologica l Surgery Referred Organization [facility] Referred Provider Keith Gimenez Referred Address [address] [place], [place],[address] Referred Provider Specialty ORTHOPEDIC S URGEON Referral [...] without current pathological fracture (M81.0) Referral Organization [facility] Referring Provider First Name Jose Referring Provider Last Name Anthony Referring Provider Specialty Neurologica l Surgery Referred Organization [facility] Referred Provider Sindhu Ennis Referred Address [address] [place],[address] Referred Provider Specialty Nurse Obi barclay Referral [...] section and content) DATE CREATED AUTHOR 09/14/2022 [facility] DATE CREATED AUTHOR AUTHOR'S ORGANIZ ATION 03/24/2023 [facility] DATE CREATED AUTHOR AUTHOR'S ORGANIZ ATION 10/14/2023 [facility] DATE CREATED AUTHOR AUTHOR'S ORGANIZ ATION 10/29/2023 [facility] DATE CREATED AUTHOR AUTHOR'S ORGANIZ ATION 10/30/2023 [facility] DATE CREATED AUTHOR AUTHOR'S ORGANIZ ATION 03/13/2024 [facility] DATE CREATED AUTHOR AUTHOR'S ORGANIZ ATION 05/16/2024 [facility] DATE CREATED AUTHOR AUTHOR'S ORGANIZ ATION 05/17/2024 [facility] DATE CREATED AUTHOR AUTHOR'S ORGANIZ ATION 06/15/2024 [facility] DATE CREATED AUTHOR AUTHOR'S ORGANIZ ATION 07/23/2024 [facility] DATE CREATED AUTHOR AUTHOR'S ORGANIZ ATION 08/13/2024 [facility] DATE CREATED AUTHOR AUTHOR'S ORGANIZ ATION 08/14/2024 [facility] DATE CREATED AUTHOR AUTHOR'S ORGANIZ ATION 10/13/2024 [facility] DATE CREATED AUTHOR AUTHOR'S ORGANIZ ATION 10/30/2024 [facility] DATE CREATED AUTHOR AUTHOR'S ORGANIZ ATION 11/28/2024 [facility] DATE CREATED AUTHOR AUTHOR'S ORGANIZ ATION 11/29/2024 [facility] DATE CREATED AUTHOR AUTHOR'S ORGANIZ ATION 12/05/2024 [facility] DATE CREATED AUTHOR AUTHOR'S ORGANIZ ATION 02/26/2025 [facility] DATE CREATED AUTHOR AUTHOR'S ORGANIZ ATION 03/21/2025 [facility] DATE CREATED AUTHOR AUTHOR'S ORGANIZ ATION 03/22/2025 [facility] DATE CREATED AUTHOR AUTHOR'S ORGANIZ ATION 03/26/2025 [facility] DATE CREATED AUTHOR AUTHOR'S ORGANIZ ATION 06/15/2025 [facility] DATE CREATED AUTHOR AUTHOR'S ORGANIZ ATION 06/29/2025 [facility] DATE CREATED AUTHOR AUTHOR'S ORGANIZ ATION 08/07/2025 [facility] Patient Care team informatio n (unrecognized section and content) Team Status: Active Member Role Status Dates Fly Luis MD Primary Care Provider Active Team Status: Active Member Role Status Dates Fly Luis MD Primary Care Provider Active Harjeet Hernández MD Attending Provider Active Team Status: Inactive Member Role Status Dates Fly Luis MD Primary Care Provider Active Jose Cruz MD Attending Provider Active Team Status: Inactive Member Role Status Dates Fly Luis MD Primary Care Provider Active Elsy López MD Attending Provider Active 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 Specialty Start Date End Date Fly Luis MD [address] [facility] [place] [address] PCP - General Family Medicine 09/07/23 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 Specialty Start Date End Date Fly Luis MD [address] [facility] [place] [address] PCP - General Family Medicine 09/07/23 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 Specialty Start Date End Date Fly Luis MD [address] [facility] [place] [address] PCP - General Family Medicine 09/07/23 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 Specialty Start Date End Date Fly Luis MD [address] [facility] [place] [address] PCP - General Family Medicine 09/07/23 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 Specialty Start Date End Date Fly Luis MD [address] [facility] [place] [address] PCP - General Family Medicine 09/07/23 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 Specialty Start Date End Date Fly Luis MD [address] [place] [address] PCP - General Family Medicine 11/26/24 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 Specialty Start Date End Date Fly Luis MD [address] [place] [address] PCP - General Family Medicine 11/26/24 Goals (unrecognized section and content) Goals may be documented in a n alternate section REASON FOR VISIT (unrecogniz ed section and content) Specialty Diagnoses / Procedures Referred By Contac t Referred To Contact Diagnoses Coronary artery disease Coronary artery disease [I25.10] Procedures AK PRQ TRLUML CORONARY STENT W/ANGIO ONE ART/BRNCH PCI MYNOR Stent- Coronary Tiffany Jansen MD [address] [place] [address] [facility] [address] [place] [address] Referral ID Status Reason Start Date Expiration Date Visits Re quested Visits Authorized [id number] 1 1 Reason Comments Coronary Artery Disease history of [place] Hypertension Referred by Juan Pablo Lares 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 Specialty Diagnoses / Procedures Referred By Ara lares Referred To Contact Diagnoses 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 (CMS/HCC) 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 (CMS/HCC) [I25.112] Procedures PCI MYNOR Stent- PCI 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 (24686) Harika Castrejon MD [address] [facility] [address] [place] [address] [address] [facility] [address] [place] [address] Referral ID Status Reason Start Date Expiration Date Visits Re quested Visits Authorized [id number] 1 1 Reason Comments Hospital Follow-up Scheduled Active and Recently Administ ered Medications [...] RN - Comment: for anticoagulation verified by ) iohexol (OMNIPaque) 350 mg iodine/mL solution (CANCELED) As needed, Starting on Tue10/26/23 at 1331, Intraprocedure 1331 (Given - Provid er: Harika Castrejon MD) lidocaine (Xylocaine) 20 mg/mL (2 %) injection (CANCELED) As needed, Starting on Tue10/26/23 at 1138, Intraprocedure 1138 (Given - Provid er: Harika Castrejon MD - Comment: right radial for anesthetic)1148 (Given - Provider: Harika Castrejon MD - Comment: R fem for anesthetic)1200 (Given - Provider: Harika Castrejon MD - Comment: left fem for [...] 1306, Intraprocedure 1306 (Given - Provid er: Harika Castrejon MD) oxygen (O2) therapy (COMPLETED) Continuous [...] BE BASED ON THE PRIMARY CLINICAL RECORDS. [facility]. provides no warranty or guarantee of the accuracy or completeness of information in this document.
== END 2025-08-09 10:36 | disposition home or self-care (01) ==
PROVIDERS: Emergency Provider Emergency Medicine; PCP Family Medicine
DX: R10.2 Pelvic and perineal pain (principal); J44.9 Chronic obstructive pulmonary disease, unspecified; Z79.899 Other long term (current) drug therapy; F17.200 Nicotine dependence, unspecified, uncomplicated
CPT/HCPCS: 73502; 99283

== ENCOUNTER 2025-09-25 08:59 | Emergency (ER) | payer MEDICARE, MEDICAID, SELFPAY ==
[2025-09-25] VITALS (13 sets, daily range): BP systolic 105–157; BP diastolic 69–109; PULSE 94–114; TEMP 36.4; O2SAT 92–99; BMI 24.8
--- NOTE | 2025-09-25 09:04 | XR_ITS ---
The [address] [address] Patient Name: ELLA JACOBO MRN: [id number] date: 1960 Sex: F Assigned Patient Location: ED.MAIN Current Patient Location: ED.MAIN Accession/Order Number: [id number] Exam Date: 09/25/2025 09:32 Report Date: 09/25/2025 10:07 At the request of: JENNIFER ROSALES DO Procedure: XR chest 1V PORTABLE ERECT CHEST 0936 hours CLINICAL HISTORY: COPD, SOB COMPARISON: 12/10/[address] 01/22/2025 The cardiac and mediastinal contours are similar. There is no vascular congestion. There is mild hyperinflation. Mild atelectasis or scarring is seen. No developing consolidation is noted. There is no effusion or pneumothorax. The the bony structures are osteopenic. There is thoracolumbar dextroscoliotic curvature. XR/XR chest 1V IMPRESSION: MILD CHRONIC CHANGES. NO ACUTE FINDINGS Impression dictated by: Ekaterina James M.D. 09/25/2025 10:07 AM Dictation Location: [place] [address] Electronically authenticated by: [id number] Y Date: 09/25/2025 10:07
--- NOTE | 2025-09-25 09:04 | ECG_ITS ---
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
--- OUTSIDE RECORDS SUMMARY | 2025-09-25 09:19 | XMS_ITS | Clinical Summary ---
Author Organization [employer] [facility] tem Address [id number] [address] [place] [address] Care Team Providers Care Bacon Stringer Name Role Phone Unavailable Primary Care Provider Unavailabl e Allergies Active AllergyReactionsCriticalityNoted ZvkiTffsqoovKghsvtvtdn54/12/2018Sulfa (Sulfonamide Antibiotics)10/25/20185751Locjyjrx52/12/2018 Medications MedicationSigDispense QuantityRefillsLast FilledStart DateEnd DateStatus ALPRAZolam (XANAX) 1 mg tablet 09/29/2018Active carisoprodol (SOMA) 350 mg tablet 09/14/2018Active gabapentin (NEURONTIN) 800 mg tablet 09/22/2018Active NORCO 5-325 mg per tablet 08/29/2018Active metoprolol succinate XL (TOPROL-XL) 25 mg 24 hr tablet 2018Active potassium chloride (K-DUR,KLOR-CON) 20 MEQ CR tablet 10/16/2018Active SEROQUEL 400 mg tablet 10/16/2018Active traZODone (DESYREL) 100 mg tablet 10/16/2018Active venlafaxine 150 MG tablet extended release 24hr 24 hr tablet 10/16/2018Active Social History Tobacco UseTypesPacks/DayYears UsedDateSmoking Tobacco: Every DaySmokeless Tobacco: NeverChildcareAnswerDate KldyuiobAzwhgbaqkCaaxkml15/13/2019Employment AnswerDate HjimqaqcGjkgxgljexUybtuzt50/13/2019Purpose - LifeAnswerDate Recorded Purpose and direction in jbtfKzybdxt65/11/2021CommentsUnknownSex and Gender InformationValueDate RecordedSex Assigned at BirthNot on fileLegal Sex Sileho8504/03/2018 5:47 PM EDTGender IdentityNot on fileSexual OrientationNot on file Last Filed Vital Signs Vital SignReadingTime TakenCommentsBlood Wkmgivmh699/80112/26/2017 3:43 PM EST Pulse--Temperature--Respiratory Rate--Oxygen Saturation--Inhaled Oxygen Concentration--Tjstde76.3 kg (155 lb)10/25/2018 3:43 PM AQOTcwgol488.6 cm (5' 4 )10/25/2018 3:43 PM ESTBody Mass Index26.6110/25/2018 3:43 PM EST Plan of Treatment Health MaintenanceDue DateLast DoneCommentsDepression Uxgcedego89/04/1971Tobacco Urprbckiv94/04/1971Adult BMI Orjbimrhq16/04/1977DTaP,Tdap and Td Vaccines (1 - Tdap)1978Zoster (Shingles) Vaccine (1 of 2)2009Fall Risk Screening 2024Influenza Wtjtjes3107/15/2025RSV ( or age 60+ yrs) (1 - 1-dose 75+ series)2034 [employer] Not on file [place] [address]
--- OUTSIDE RECORDS SUMMARY | 2025-09-25 09:19 | XMS_ITS | Clinical Summary ---
Author Organization [facility] Address [address] 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 Name Role Phone Fly Nicolas MD Primary Care Provider Allergies Active AllergyReactionsCriticalityNoted DateCommentsAdhesive Tape-SiliconesOther Low10/05/2023 PAPER TAPE OK BuspironeUnknown,OxqrwknaJqtwtu40/24/2023NicotineUnknown,AowdAcy7709/06/2023 RpxkcqiwmcQxrojSlmrjo18/24/2023 Feels drunk / falls down Sulfa (Sulfonamide Antibiotics)LlfyuysEuiods41/12/2018TramadolUnknownMedium 10/25/2018 Medications MedicationSigDispense QuantityRefillsLast FilledStart DateEnd DateStatus albuterol 90 mcg/actuation inhaler Inhale 2 puffs every 4 hours if needed for wheezing.Active ALPRAZolam (Xanax) 1 mg tablet Take 1 tablet (1 mg) by mouth 4 times a day as needed for anxiety.Active amLODIPine (Norvasc) 5 mg tablet Take 1 tablet (5 mg) by mouth once daily.Active aspirin 81 mg EC tablet Take 1 tablet (81 mg) by mouth once daily.Active atorvastatin (Lipitor) 80 mg tablet Take 1 tablet (80 mg) by mouth once daily.Active carvedilol (Coreg) 3.125 mg tablet Take 1 tablet (3.125 mg) by mouth 2 times a day with meals.Active shtwzzxiicc-iepcwduhz-zihpuvxs (Trelegy Ellipta) 100-62.5-25 mcg blister with device Inhale 1 puff once daily.Active isosorbide mononitrate ER (Imdur) 30 mg 24 hr tablet Take 1 tablet (30 mg) by mouth once daily. Do not crush or chew.Active lamoTRIgine (LaMICtal) 25 mg tablet Take 3 tablets (75 mg) by mouth once daily.Active losartan (Cozaar) 50 mg tablet Take 2 tablets (100 mg) by mouth once daily.Active nitroglycerin (Nitrostat) 0.[address] 1 tablet (0.4 mg) under the tongue every 5 minutes if needed for chest pain.Active OLANZapine (ZyPREXA) 10 mg tablet Take 0.5 tablets (5 mg) by mouth once daily at bedtime.Active QUEtiapine (SEROquel) 200 mg tablet Take 2 tablets (400 mg) by mouth once daily at bedtime.Active ranolazine (Ranexa) 500 mg 12 hr tablet Take 1 tablet (500 mg) by mouth 2 times a day. Do not crush, chew, or split. Active rOPINIRole (Requip) 1 mg tablet Take 1 tablet (1 mg) by mouth once daily.Active ticagrelor (Brilinta) 90 mg tablet Take 1 tablet (90 mg) by mouth 2 times a day.Active traZODone (Desyrel) 100 mg tablet Take 3 tablets (300 mg) by mouth once daily at bedtime. Takes 3 100mg tabes at bedtime.Active venlafaxine XR (Effexor-XR) 150 mg 24 hr capsule Take 2 capsules (300 mg) by mouth once daily. Do not crush or chew. Takes 2 capsules at bedtime.Active Active Problems ProblemNoted DateDiagnosed DateHistory of total abdominal egvkvxkooodl63/22/2023 Walker as ambulation aid10/05/2023oronary artery nasmevb2809/02/2023cute ST elevation myocardial infarction (STEMI)0978Nfrchmozshzcau70/30/2023COPD (chronic obstructive pulmonary disease)2Anxiety and depression 09/13/2022urrent umanpg1409/13/2022HTN (hypertension), bzbvkh4009/13/2022rimary pephxymt03/31/2022RLS (restless legs syndrome)09/13/2022 Social History Tobacco UseTypesPacks/DayYears UsedDateSmoking Tobacco: Every DayCigarettes0.543 Alcohol UseStandard Drinks/WeekCommentsNot Currently0 (1 standard drink = 0.6 oz pure alcohol)CommentsUnknownSex and Gender InformationValueDate Recorded Sex Assigned at BirthNot on fileLegal TnoPjenva83/20/2023 12:01 PM EDTGender IdentityNot on fileSexual OrientationNot on file Last Filed Vital Signs Vital SignReadingTime TakenCommentsBlood Xiowijqg083/7310/26/2023 10:56 AM EST Jnxca948010/26/2023 10:56 AM ESTTemperature2.2 ??C (36 ??F)10/26/2023 10:56 AM EST Respiratory Iqbi176312/27/2022 10:56 AM ESTOxygen Tnqldnzswc68%10/26/2023 11:15 AM ESTInhaled Oxygen Concentration--Eziwjg05.3 kg (159 lb 6.3 oz)10/26/2023 11:15 AM SESGxurpe230.5 cm (5' 2 )10/26/2023 11:15 AM ESTBody Mass Index29.15 10/26/2023 11:15 AM EST Plan of Treatment Health MaintenanceDue DateLast DoneCommentsCT Gatgorhugpnk1959Colonoscopy 1959Colorectal Cancer Dfddcrtnw1959FIT-DNA (Cologuard)1959FIT 1959Lipid Panel1959Medicare Annual Wellness Visit (AWV)1959 Eylvjpghamnvb1959MMR Vaccines (1 of 1 - Standard series)1960 Hepatitis C Iflcmonij00/04/1977Cervical Cancer Rtdxtlepy57/04/1980HPV/Cotest 1980Pap Smear10/17/19809334Hkchfrvim51/04/1999RSV High Risk: (Elderly (60+) or Population) (1 - Risk 50-74 years 1-dose series)2009Zoster Vaccines (1 of 2)2009one Density Scan4Diabetes Screening 412/, 09/07/2023Influenza Vaccine (#1), 10/14/2022, 09/15/2021, Additional history existsCOVID-19 Vaccine (1 - season)2025Pneumococcal Vaccine (3 of 3 - PCV20 or PCV21)12/09/2025 12/09/2020, 07/15/2014DTaP/Tdap/Td Vaccines (2 - Tdap)HIB VaccinesAged OutNo longer eligible based on patient's age to complete this topic HPV VaccinesAged OutNo longer eligible based on patient's age to complete this topicHepatitis A VaccinesAged OutNo longer eligible based on patient's age to complete this topicHepatitis B VaccinesAged OutNo longer eligible based on patient's age to complete this topicIPV VaccinesAged OutNo longer eligible based on patient's age to complete this topicMeningococcal VaccineAged OutNo longer eligible based on patient's age to complete this topicRotavirus VaccinesAged Out No longer eligible based on patient's age to complete this topic Medical Devices ImplantedTypeAreaManufacturerDevice IdentifierShelf Expiration DateModel / Serial / LotStentRufinod, Mr Us, 3.00 X 48mm - [id number] Implanted:Qty: 1 on 10/26/2023 [facility] [employer] [id number]/05/2025 [id number] / / [id number], Us, 3.50 X 38mm - [id number] Implanted:Qty: 1 on 10/26/2023 [facility]: [employer]ENTIFIC [id number]/09/2024 [id number] / / [id number] Procedures Procedure NamePriorityDate/TimeAssociated DiagnosisCommentsBASIC METABOLIC PANEL STAT112/27/2022 10:59 AM EST from Last 3 Months or Most Recently Relevant to Health Maintenance Results * (ABNORMAL) Basic Metabolic Panel (10/26/2023 10:59 AM EST)ComponentValueRef RangeTest MethodAnalysis TimePerformed AtPathologist YiyihlzcaIcilvkn1917 - 99 mg/dL LAB CHEMISTRY METHOD 10/26/2023 11:27 AM [facility] [place] DERCcwltu409374 - 145 mmol/L LAB CHEMISTRY METHOD 10/26/2023 11:27 AM [facility] [place] LABPotassium5.4(H)3.5 - 5.3 mmol/L LAB CHEMISTRY METHOD 10/26/2023 11:27 AM [facility] [place] LABComment:MARKED HEMOLYSIS DETECTED. The result may be falsely elevated due to hemolysis or other interferents. Clinical correlation is recommended. Repeat testing may be considered.Fybabcky32100 - 107 mmol/L LAB CHEMISTRY METHOD 10/26/2023 11:27 AM [facility] [place] PCVSdjognfzblt7538 - 32 mmol/L LAB CHEMISTRY METHOD 10/26/2023 11:27 AM [facility] [place] LABAnion Ncy7277 - 20 mmol/L LAB CHEMISTRY METHOD 10/26/2023 11:27 AM [facility] [place] LABUrea Uxsfuyac778 - 23 mg/dL LAB CHEMISTRY METHOD 10/26/2023 11:27 AM [facility] [place] LABCreatinine0.580.50 - 1.05 mg/dL LAB CHEMISTRY METHOD 10/26/2023 11:27 AM [facility] [place] LABeGFR>90>60 mL/min/1.73m*2 LAB CHEMISTRY METHOD 10/26/2023 11:27 AM [facility] [place] LABComment: Calculations of estimated GFR are performed using the 2020 CKD-EPI Study Refit equation without therace variable for the IDMS-Traceable creatinine methods. https://jasn.asnjournals.org/content/early//ASN.5089536755 Calcium8.5(L)8.6 - 10.3 mg/dL LAB CHEMISTRY METHOD 10/26/2023 11:27 AM [facility] [place] LABSpecimen (Source)Anatomical Location / LateralityCollection Method / VolumeCollection TimeReceived TimeBlood Venous blood specimen / UnknownVenipuncture / Hmlqigs0410/26/2023 10:59 AM EST 10/26/2023 11:04 AM EST Narrative Authorizing ProviderResult TypeResult StatusPaul B Poommipanit [facility] BLOOD ORDERABLESFinal ResultPerforming OrganizationAddressCity/State/ZIP CodePhone Number [facility] [address] [place] [address] from Last 3 Months or Most Recently Relevant to Health Maintenance Insurance Advance Directives For more information, please contact: [phone] (Available ) * Full Code (Latest Code Status on File) Date ActivatedDate XkmrcdtqjciQancszya14/25/2023 9:33 AM09/07/2023 5:23 PM QuestionAnswerCommentsPlan of Care:* Code Status Discussion Completed Decision Maker:* Patient Care Teams Team MemberRelationshipSpecialtyStart DateEnd Date Fly Nicolas MD [address] [facility] [place] [address] PCP - GeneralFamily Nkgqlfgr49/25/23
--- OUTSIDE RECORDS SUMMARY | 2025-09-25 09:19 | XMS_ITS | Clinical Summary ---
Author Organization [facility] Address [address] [place] [address] Care Team Providers Care Scrub Woman Name Role Phone Fly Nicolas MD Primary Care Provider Allergies Active AllergyReactionsCriticalityNoted PnxcMegsovrdBggncywmc95/14/2025 migraine Ujrkofxrop64/14/2025Sulfa WizhzcykmolEvqaFjvyqq30/14/2025TramadolMedium 10/25/2018 Other Reaction(s): Unknown Medications MedicationSigDispense QuantityRefillsLast FilledStart DateEnd DateStatus albuterol HFA 90 mcg/act inhaler Inhale 2 puffs every 4 (four) hours if needed for wheezingActive ALPRAZolam (Xanax) 1 MG tablet Take 1 mg by mouth 4 (four) times a day as needed for anxietyActive aspirin 81 MG EC tablet Take 81 mg by mouth DailyActive atorvastatin (Lipitor) 80 MG tablet Take 80 mg by mouth DailyActive Semlftj-Hwtkjozndmi-Qwjzyudhau (Breztri Aerosphere) 160-9-4.8 MCG/ACT aerosol InhaleActive carvedilol (Coreg) 12.5 MG tablet Take by mouth in the morning and in the evening. Take with meals.Active venlafaxine XR (Effexor XR) 150 MG 24 hr capsule Take 150 mg by mouth Daily Do not crush or chew.Active isosorbide mononitrate ER (Imdur) 30 MG 24 hr tablet Take 30 mg by mouth in the morning and 30 mg before bedtime. Do not crush or chew.Active lamoTRIgine (LaMICtal) 25 MG tablet Take 3 tablets by mouth DailyActive losartan (Cozaar) 100 MG tablet Take 100 mg by mouth DailyActive nitroglycerin (Nitrostat) 0.[address] 0.4 mg under the tongue every 5 (five) minutes if needed for chest pain Active prasugrel (Effient) 10 MG tablet Take 10 mg by mouthActive QUEtiapine (SEROquel) 100 MG tablet Take 100 mg by mouth at bedtimeActive ranolazine (Ranexa) 500 MG 12 hr tablet Take 500 mg by mouth in the morning and 500 mg before bedtime. Do not crush, chew, or split.Active rOPINIRole (Requip) 1 MG tablet Take 1 mg by mouth at bedtimeActive traZODone (Desyrel) 100 MG tablet Take 300 mg by mouth at bedtimeActive OLANZapine (ZyPREXA) 5 MG tablet Take 5 mg by mouth at bedtimeActive Active Problems No known active problems Family History Medical HistoryRelationNameCommentsHeart attackFatherHypertensionFatherRelation NameStatusCommentsFather Social History Tobacco UseTypesPacks/DayYears UsedDateSmoking Tobacco: Every DayCigarettes Smokeless Tobacco: Never Tobacco Cessation:Ready to Q uit: Not Asked; Counseling Given: Not Answered CommentsUnknownSex and Gender InformationValueDate RecordedSex Assigned at BirthNot on fileLegal HbkDmhgok67/15/2023 8:23 PM EDTGender IdentityNot on fileSexual OrientationNot on file Last Filed Vital Signs Vital SignReadingTime TakenCommentsBlood Ziakwroz091/90002/25/2025 1:44 PM EDT Pulse--Temperature--Respiratory Rate--Oxygen Saturation--Inhaled Oxygen Concentration--Izubad20.6 kg (160 lb)02/25/2025 1:44 PM BDYBfhqbs088.5 cm (5' 2 )02/25/2025 1:44 PM EDTBody Mass Index29.26002/25/2025 1:44 PM EDT Plan of Treatment Not on file Insurance Care Teams Team MemberRelationshipSpecialtyStart DateEnd Date Fly Nicolas MD [address] [place] [address] [facility] - [facility]
[2025-09-25] MEDS: IPRATROPIUM/ALBUTEROL SULFATE 3 ML AMPUL.NEB 9 ML IH (09:22)
[2025-09-25 09:28] LABS: Hematocrit 41.5 % (36.0-48.0); Hemoglobin 15.0 g/dL (12.0-16.0); Immature Granulocytes Abs Auto 0.01 10^3/uL (0.00-0.03); Immature Granulocytes Pct Auto 0.2 % (0.0-0.5); Lymphocytes Absolute Auto 0.7 10^3/uL (1.2-3.8); Mean Corpuscular HGB Conc 36.1 g/dL (29.9-35.2); Mean Corpuscular Hemoglobin 35.4 pg (26.7-34.0); Mean Corpuscular Volume 97.9 fL (81.0-99.0); Platelet Count 200 10^3/uL (150-450); Red Blood Count 4.24 10^6/uL (4.20-5.40); White Blood Count 4.7 10^3/uL (4.0-11.0)
--- NOTE | 2025-09-25 09:31 | ED.GENADUL1 ---
HPI HPI - General Adult General Chief complaint: Shortness of Breath/Dyspnea Stated complaint: SOB Time Seen by Provider: 09/25/25 09:03 Source: patient Mode of arrival: ambulance Limitations: no limitations History of Present Illness HPI narrative: Patient is a 64-year-old female, history significant for COPD on 2 L home oxygen on palliative care for this, presenting to the emergency department for complaints of shortness of breath. Patient states she is chronic shortness of breath, however this has worsened over the last couple days. She states she just finished a course of antibiotics yesterday for upper respiratory infection. Other than shortness of breath and feeling her chest is tight, she denies any other complaints. She denies any significant chest pain. No abdominal pain, nausea, or vomiting. No fevers or chills. She does have a history of previous NE with 3 coronary stents. Related Data Home Medications ?Medication ?Instructions ?Recorded ?Confirmed albuterol sulfate 90 mcg/actuation 2 puff inhalation Q4H PRN 03/26/24 08/09/25 aerosol inhaler shortness of breath or wheezing alprazolam 1 mg tablet 1 mg PO QID 03/26/24 08/09/25 atorvastatin 80 mg tablet 80 mg PO DAILY 03/26/24 08/09/25 budesonide 160 mcg-glycopyr 9 2 inh inhalation BID 03/26/24 09/29/24 mcg-formot 4.8 mcg/actuation HFA inhaler (Breztri Aerosphere) isosorbide mononitrate 30 mg 30 mg PO DAILY 03/26/24 08/09/25 tablet,extended release 24 hr lamotrigine 25 mg tablet 75 mg PO BEDTIME 03/26/24 08/09/25 nitroglycerin 0.4 mg sublingual 0.4 mg sublingual Q5M PRN chest 03/26/24 09/29/24 tablet pain olanzapine 5 mg tablet 5 mg PO BEDTIME 03/26/24 09/29/24 quetiapine 100 mg tablet 100 mg PO BEDTIME 03/26/24 09/29/24 ropinirole 1 mg tablet 1 mg PO DAILY 03/26/24 08/09/25 trazodone 100 mg tablet 300 mg PO BEDTIME PRN sleep 03/26/24 08/09/25 venlafaxine 150 mg 300 mg PO BEDTIME 03/26/24 08/09/25 capsule,extended release 24 hr prasugrel HCl 10 mg tablet 10 mg PO DAILY 09/29/24 09/29/24 ranolazine 500 mg tablet,extended 500 mg PO Q12H 09/29/24 09/30/24 release,12 hr losartan 100 mg tablet 100 mg PO DAILY 09/30/24 08/09/25 quetiapine 50 mg tablet 50 mg PO BEDTIME 09/30/24 09/30/24 Previous Rx's ?Medication ?Instructions ?Recorded carvedilol 6.25 mg tablet 12.5 mg (2 x 6.25 mg) PO Q12H #0 09/30/24 tabs oxycodone-acetaminophen 5 mg-325 1 tab PO Q8H PRN MODERATE PAIN 2 09/30/24 mg tablet days #6 tabs Allergies Allergy/AdvReac Type Severity Reaction Status Date / Time buspirone (From BuSpar) Allergy Severe Migraine Verified 09/25/25 09:10 Sulfa (Sulfonamide Allergy Mild Hives Verified 09/25/25 09:10 Antibiotics) pregabalin (From Lyrica) AdvReac Severe Confusion Verified 09/25/25 09:10 bacitracin AdvReac Unknown Unknown Verified 09/25/25 09:10 Opioid HPI Opioid Management Most Recent Opioid Data: Last Pain Scale 7 Today, 09:02 Last ORT Total Score 1 09/29/24, 16:07 Last ORT Risk Category Low Risk 09/29/24, 16:07 Review of Systems ROS Status of ROS 10 or more systems reviewed and unremarkable except as noted in history and below [facility] Medical History Hyperlipidemia ?E78.5 - Hyperlipidemia, unspecified (ICD-10) Restless legs syndrome ?G25.81 - Restless legs syndrome (ICD-10) Panic attack ?F41.0 - Panic disorder [episodic paroxysmal anxiety] (ICD-10) Panic attack ?F41.0 - Panic disorder [episodic paroxysmal anxiety] (ICD-10) Neuropathy ?G62.9 - Polyneuropathy, unspecified (ICD-10) COPD (chronic obstructive pulmonary disease) ?J44.9 - Chronic obstructive pulmonary disease, unspecified (ICD-10) Anxiety ?F41.9 - Anxiety disorder, unspecified (ICD-10) Hypertension ?I10 - Essential (primary) hypertension (ICD-10) Surgical History H/O: hysterectomy ?Z90.710 - Acquired absence of both cervix and uterus (ICD-10) History of lumbar fusion ?Z98.1 - Arthrodesis status (ICD-10) H/O heart artery stent ?Z95.5 - Presence of coronary angioplasty implant and graft (ICD-10) History of cholecystectomy ?Z90.49 - Acquired absence of other specified parts of digestive tract (ICD-10) Family History (Updated 09/29/24 @ 16:29 by Tiny Patel) Mother Family history of cancer Family history of diabetes mellitus Father Family history of diabetes mellitus Family history of hypertension Family history of myocardial infarction Social History (Updated 09/29/24 @ 16:30 by Tiny Patel) Within the past year, how often did you have a drink containing alcohol: never Within the past year, how often did you have six or more drinks on one occasion: never Score interpretation: A score less than 3 is consistent with normal alcohol consumption. Smoking status: Current every day smoker Non-prescribed substance use: denies use Highest level of school completed/degree received: Associate degree: academic program Are you now , , , , never or living with a partner: In a typical week, how many times do you talk on the telephone with family, friends, or neighbors: 3 or more times per week How often do you get together with friends or relatives: 3 or more times per week How often do you attend spiritism or alevism services: never Do you belong to any clubs or organizations such as spiritism groups unions, fraternal or athletic groups, or school groups: no Total score: 1 Score interpretation: A score of less than or equal to 1 indicates the most socially isolated. Little interest or pleasure in doing things: not at all Feeling down, depressed, or hopeless: not at all Feel stressed/tense/nervous/anxious/difficulty sleeping: to some extent Exam Narrative Exam Narrative: CONSTITUTIONAL: No acute distress, speaking in full sentences, answering questions and following commands appropriately SKIN: Was warm and dry. EYES: Sclerae white. EARS, NOSE, THROAT: Moist oral mucosa. RESPIRATORY: Diffuse bilateral expiratory wheezing with poor air exchange. No significant use of accessory muscles. CARDIOVASCULAR: Normal rate and regular rhythm. There is no S3, S4, murmur, rub. GASTROINTESTINAL: Abdomen is soft, nontender, and nondistended. MUSCULOSKELETAL: No peripheral edema. NEUROLOGIC: Patient is awake and alert. Facies were symmetrical. Constitutional Vital Signs, click to edit/add: Last Vital Signs Temp 97.5 F L 09/25/25 09:02 Pulse 107 H 09/25/25 10:00 Resp 22 H 09/25/25 10:00 BP 105/75 09/25/25 10:00 Pulse Ox 96 09/25/25 10:00 O2 Del Method Nasal Cannula 09/25/25 09:42 O2 Flow Rate 3.5 09/25/25 09:42 Course Vital Signs Vital signs: Vital Signs Temperature 97.5 F L 09/25/25 09:02 Pulse Rate 99 H 09/25/25 09:02 Respiratory Rate 12 09/25/25 09:02 Blood Pressure 157/93 H 09/25/25 09:02 Pulse Oximetry 97 09/25/25 09:02 Oxygen Delivery Method Nasal Cannula 09/25/25 09:02 Oxygen Delivery Flow Rate 3.5 09/25/25 09:02 Temperature 97.5 F L 09/25/25 09:02 Pulse Rate 107 H 09/25/25 10:00 Respiratory Rate 22 H 09/25/25 10:00 Blood Pressure 105/75 09/25/25 10:00 Pulse Oximetry 96 09/25/25 10:00 Oxygen Delivery Method Nasal Cannula 09/25/25 09:42 Oxygen Delivery Flow Rate 3.5 09/25/25 09:42 Medical Decision Making [facility] Narrative Medical decision making narrative: Patient is a 64-year-old female, history significant for COPD on 2 L nasal cannula and CAD w/ 3 coronary stents, presenting to the emergency department for evaluation of shortness of breath beginning yesterday. Her vital signs on arrival are within normal limits. She is afebrile and hemodynamically stable. She is saturating 97% on her home oxygen requirements. She does not appear to be in acute respiratory distress and is speaking in full sentences without use of accessory muscles. She does have bilateral expiratory wheezing and diminished air exchange. Differential diagnose includes COPD exacerbation, ACS, arrhythmia, pneumothorax, or other electrolyte/metabolic derangement. I did consider pneumonia, however she just finished a course of antibiotics yesterday. IV was established and laboratory studies were obtained. She was treated with IV Solu-Medrol and nebulized albuterol/ipratropium. 12 Lead EKG: Normal sinus rhythm at a rate of 99. Normal axis. There are subtle ST depressions in the inferolateral leads. No ST segment elevations. QRS, [place], and QTc interval within normal limits. Unchanged compared to prior EKG from 12/10/2024. Final impression: Normal sinus rhythm with chronic ST segment depressions. No evidence of STEMI. Chest x-ray independently reviewed/interpreted by myself demonstrated no acute cardiopulmonary process. Laboratory studies were unremarkable. Patient was mildly hypokalemic, likely related to albuterol use. Mild hyponatremia. No evidence of acute kidney injury. No anemia, leukocytosis, or thrombocytopenia. Troponin nonelevated. On reevaluation, patient states she feels improved. She is breathing comfortably on her home oxygen requirements. Her wheezing is minimal on repeat lung auscultation, there is better air exchange now. I do believe the patient is stable for discharge. Patient's presentation is most likely consistent with COPD exacerbation. They were instructed to follow up with her PCP for further care. Return precautions were given including any new or worsening symptom. Patient understands and agrees to the plan. FINAL IMPRESSION: #Acute COPD exacerbation DISPOSITION: Discharged home CONDITION: Good Medical Records Medical records reviewed: Yes I reviewed the patient's medical records Lab Data Lab results reviewed: Yes I reviewed the patient's lab results Labs: Lab Results 09/25/25 Range/Units 09:13 WBC 4.7 (4.0-11.0) 10^3/uL RBC 4.24 (4.20-5.40) 10^6/uL Hgb 15.0 (12.0-16.0) g/dL Hct 41.5 (36.0-48.0) % MCV 97.9 (81.0-99.0) fL MCH 35.4 H (26.7-34.0) pg MCHC 36.1 H (29.9-35.2) g/dL RDW 11.6 (11.0-15.0) % Plt Count 200 (150-450) 10^3/uL MPV 10.4 (9.5-13.5) fL Neut % (Auto) 78.9 H (43.0-75.0) % Lymph % (Auto) 14.5 L (20.5-60.0) % Ritchie % (Auto) 5.8 (1.7-12.0) % Eos % (Auto) 0.0 L (0.9-7.0) % Baso % (Auto) 0.6 (0.2-2.0) % Neut # (Auto) 3.7 (1.4-6.5) 10^3/uL Lymph # (Auto) 0.7 L (1.2-3.8) 10^3/uL Ritchie # (Auto) 0.3 (0.3-0.8) 10^3/uL Eos # (Auto) 0.0 (0.0-0.7) 10^3/uL Baso # (Auto) 0.0 (0.0-0.1) 10^3/uL Abs Immat Gran (auto) 0.01 (0.00-0.03) 10^3/uL Imm/Tot Granulo (auto) 0.2 (0.0-0.5) % Sodium 134 L (136-145) mmol/L Potassium 2.9 L* (3.5-5.1) mmol/L Chloride 96 L (98-107) mmol/L Carbon Dioxide 25.6 (21.0-32.0) mmol/L Anion Gap 15.3 BUN 5.0 L (7.0-18.0) mg/dL Creatinine 0.57 (0.55-1.02) mg/dL Est GFR ( Amer) >60 (>=60 mL/min/1.73m^2) Est GFR (Non-Af Amer) >60 (>=60 mL/min/1.73m^2) BUN/Creatinine Ratio 8.8 Glucose 179 H (74-106) mg/dL Calcium 9.8 (8.5-10.1) mg/dL Troponin I High Sens 9.3 (4.0-51.3) pg/mL Imaging Data Chest x-ray: Attestation: I personally reviewed and interpreted this imaging study as follows: Radiologist's impression: ITS Impressions Chest X-Ray 09/25/25 09:04 IMPRESSION: MILD CHRONIC CHANGES. NO ACUTE FINDINGS Impression dictated by: Ekaterina James M.D. 09/25/2025 10:07 AM Dictation Location: [place] [address] Electronically authenticated by: [id number] Y Date: 09/25/2025 10:07 ECG Data Attestation: I personally reviewed and interpreted this ECG as follows: Discharge Plan Discharge Chief Complaint: Shortness of Breath/Dyspnea Clinical Impression: COPD (chronic obstructive pulmonary disease) Patient Disposition: Home, Self-Care Time of Disposition Decision: 11:05 Condition: Good Mode of Transportation: Private Vehicle Prescriptions / Home Meds: No Action albuterol sulfate 90 mcg/actuation HFA aerosol inhaler 2 puff INHALATION Q4H PRN (Reason: shortness of breath or wheezing) alprazolam 1 mg tablet 1 mg PO QID atorvastatin 80 mg tablet 80 mg PO DAILY Breztri Aerosphere 160-9-4.8 mcg/actuation HFA aerosol inhaler 2 inh INHALATION BID isosorbide mononitrate 30 mg tablet extended release 24 hr 30 mg PO DAILY nitroglycerin 0.4 mg tablet, sublingual 0.4 mg sublingual Q5M PRN (Reason: chest pain) olanzapine 5 mg tablet 5 mg PO BEDTIME quetiapine 100 mg tablet 100 mg PO BEDTIME ropinirole 1 mg tablet 1 mg PO DAILY trazodone 100 mg tablet 300 mg PO BEDTIME PRN (Reason: sleep) venlafaxine 150 mg capsule,extended release 24hr 300 mg PO BEDTIME lamotrigine 25 mg tablet 75 mg PO BEDTIME prasugrel HCl 10 mg tablet 10 mg PO DAILY ranolazine 500 mg tablet extended release 12 hr 500 mg PO Q12H losartan 100 mg tablet 100 mg PO DAILY quetiapine 50 mg tablet 50 mg PO BEDTIME Rx Instructions: TAKE WITH 100 MG = 150 MG oxycodone-acetaminophen 5-325 mg Tablet 1 tab PO Q8H PRN (Reason: MODERATE PAIN) 2 Days Qty: 6 0RF carvedilol 6.25 mg tablet 12.5 mg PO Q12H Qty: 0 0RF Print Language: Nepali Instructions: COPD (Chronic Obstructive Pulmonary Disease) (ED) Referrals: DORIE LUIS [Physician, Family Practice] - 1 week Discharge Date/Time: 09/25/25 11:38
[2025-09-25] MEDS: METHYLPREDNISOLONE SOD SUCC PF 125 MG/2 ML VIAL IVP (09:33)
[2025-09-25 09:57] LABS: Anion Gap 15.3; Blood Urea Nitrogen 5.0 mg/dL (7.0-18.0); Calcium 9.8 mg/dL (8.5-10.1); Carbon Dioxide 25.6 mmol/L (21.0-32.0); Chloride 96 mmol/L (98-107); Estimated GFR (African America >60 (>=60 mL/min/1.73m^2); Estimated GFR (Non-African Ame >60 (>=60 mL/min/1.73m^2); Glucose 179 mg/dL (74-106); Sodium 134 mmol/L (136-145)
[2025-09-25 09:58] LABS: Potassium 2.9 mmol/L (3.5-5.1)
[2025-09-25] MEDS: LORAZEPAM 2 MG/ML VIAL 1 MG IV (10:14)
== END 2025-09-25 11:38 | disposition home or self-care (01) ==
PROVIDERS: Emergency Provider Student in an Organized Health Care Education/Training Program; PCP Nurse Practitioner
DX: J44.9 Chronic obstructive pulmonary disease, unspecified (principal); Z99.81 Dependence on supplemental oxygen; I25.2 Old myocardial infarction; Z95.5 Presence of coronary angioplasty implant and graft; F17.200 Nicotine dependence, unspecified, uncomplicated; R06.02 Shortness of breath
CPT/HCPCS: 36415; 71045; 80048; 84484; 85025; 93005; 94640; 96374; 96375; 99285; J2060; J2405; J2919